=== PATIENT | male | born 1960 | race Caucasian/White ===

== ENCOUNTER 2016-10-11 12:08 | Inpatient (IN) | payer OTHER ==
[~2016-10-11] VITALS: Ht 185.4 cm; Wt 82.0 kg
[2016-10-11] VITALS (9 sets, daily range): PULSE 89–102; RESP 22; TEMP 97.4; O2SAT 93–100
[2016-10-11] MEDS ORDERED: ceFAZolin 2 GM PREMIX 50 ML ONE (12:16)
[2016-10-11] MEDS ORDERED: IOHEXOL 350 MG/ML 10 ML VIAL (for RAD DIAG) IV ONE ×2 (12:28→12:42)
--- NOTE | 2016-10-11 12:41 | RADRPT ---
EXAM DATE/TIME: 10/11/2016 12:02 [facility] COMPARISON: No previous studies available for comparison. INDICATIONS : Trauma alert, fall from ladder today MEDICAL HISTORY : unobtainable SURGICAL HISTORY : unobtainable ENCOUNTER: Initial ACUITY: 1 day PAIN SCORE: Non-responsive. LOCATION: Bilateral chest FINDINGS: A single view of the chest demonstrates the lungs to be symmetrically aerated without evidence of mas s, infiltrate or effusion. The cardiomediastinal contours are unremarkable. Osseous structures are intact. CONCLUSION: No acute disease. Davis Nolasco MD FACR on October 11, 2016 at 12:38 Board Certified Radiologist. This report was verified electronically.
--- NOTE | 2016-10-11 12:42 | RADRPT ---
EXAM DATE/TIME: 10/11/2016 12:02 [facility] COMPARISON: No previous studies available for comparison. INDICATIONS : Trauma alert, fall from ladder today MEDICAL HISTORY : unobtainable SURGICAL HISTORY : unobtainable ENCOUNTER: Initial ACUITY: 1 day PAIN SCORE: Non-responsive. LOCATION: Bilateral pelvis FINDINGS: Frontal pelvis is performed on a backboard. The hips are grossly symmetric without definite fracture or dislocation. No displaced pelvic fractures identified. CONCLUSION: Satisfactory trauma pelvis appearance. Red Hoffman MD on October 11, 2016 at 12:41 Board Certified Radiologist. This report was verified electronically.
[2016-10-11 12:44] LABS: AUTOMATED NEUTROPHIL # 5.6 TH/MM3 (1.8-7.7); BASOPHIL # 0.1 TH/MM3 (0-0.2); BASOPHIL % 0.8 % (0.0-2.0); EOSINOPHIL # 0.1 TH/MM3 (0-0.4); EOSINOPHIL % 0.9 % (0.0-4.0); HEMATOCRIT 46.5 % (39.0-51.0); HEMO FLAGS DIFF FINAL; I-STAT POTASSIUM 4.1 MMOL/L (3.5-4.9); LYMPH % 26.1 % (9.0-44.0); LYMPHOCYTE # 2.5 TH/MM3 (1.0-4.8); MEAN CELL VOLUME 98.4 FL (80.0-100.0); MEAN CORPUSCULAR HEMOGLOBIN 32.7 PG (27.0-34.0); MEAN CORPUSCULAR HGB CONC 33.2 % (32.0-36.0); NEUT % 59.2 % (16.0-70.0); PLATELET COUNT 221 TH/MM3 (150-450); RED BLOOD COUNT 4.72 MIL/MM3 (4.50-5.90); RED CELL DISTRIBUTION WIDTH 14.1 % (11.6-17.2); WHITE BLOOD COUNT 9.4 TH/MM3 (4.0-11.0)
[2016-10-11 12:52] LABS: APTT (PATIENT) 25.4 SEC (24.3-30.1); PROTHROMBIN TIME - PATIENT 10.9 SEC (9.8-11.6)
--- NOTE | 2016-10-11 12:53 | RADRPT ---
EXAM DATE/TIME: 10/11/2016 12:19 [facility] COMPARISON: No previous studies available for comparison. INDICATIONS : Trauma alert; fall ten feet from ladder. RADIATION DOSE: 56.42 CTDIvol (mGy) MEDICAL HISTORY : Non-responsive. SURGICAL HISTORY : Non-responsive. ENCOUNTER: Initial ACUITY: 1 day PAIN SCALE: Non-responsive LOCATION: Bilateral neck TECHNIQUE: Volumetric scanning of the cervical spine was performed. Multiplanar reconstructions in the sagittal, coronal and oblique axial planes were performed. Using automated exposure control and adjustment o f the mA and/or kV according to patient size, radiation dose was kept as low as reasonably achievable to obtain optimal diagnostic quality images. FINDINGS: Alignment is satisfactory. There is no evidence of cervical spine fracture. There is degenerative jony nge with disc space narrowing and endplate aspect formation most notably at C5-6. There is some ossif ication of the nuchal ligament dorsal to C4-5. There is no evidence of paraspinal hematoma. There is a mildly displaced fracture seen involving the occipital skull base just left of midline. CONCLUSION: Occipital skull fracture. No evidence of acute traumatic injury in the cervical spine Red Hoffman MD on October 11, 2016 at 12:41 Board Certified Radiologist. This report was verified electronically.
[2016-10-11] MEDS: SODIUM CHLOR 0.9% 1000 ML INJ 1,000 ML IV SCH (13:00)
[2016-10-11] MEDS ORDERED: SODIUM CHLORIDE 0.9% FLUSH 5 ML FLUSH IVF PRN (13:00)
[2016-10-11] MEDS ORDERED: ONDANSETRON HCL 4 MG/2 ML VIAL IV PRN (13:00)
[2016-10-11] MEDS ORDERED: MISCELLANEOUS NURSING INFORMATION XX SCH (13:00)
[2016-10-11] MEDS ORDERED: MAGNESIUM HYDROXIDE SUSP 30 ML CUP PO PRN (13:00)
[2016-10-11] MEDS ORDERED: ENALAPRILAT 1.25 MG/ML VIAL IV PRN (13:00)
[2016-10-11] MEDS ORDERED: CHLORHEXIDINE GLUCONATE 2 % 1 PACK (2 CLOTHS) TOP PRN (13:00)
[2016-10-11] MEDS ORDERED: hydrALAZINE HCL 20 MG/ML VIAL ONE (13:01)
--- NOTE | 2016-10-11 13:01 | RADRPT ---
EXAM DATE/TIME: 10/11/2016 12:19 [facility] COMPARISON: No previous studies available for comparison. INDICATIONS : Trauma alert; fall ten feet from ladder. RADIATION DOSE: 56.35 CTDIvol (mGy) MEDICAL HISTORY : None SURGICAL HISTORY : None. ENCOUNTER: Initial ACUITY: 1 day PAIN SCALE: 5/10 LOCATION: cranial TECHNIQUE: Multiple contiguous axial images were obtained of the head. Using automated exposure control and adj ustment of the mA and/or kV according to patient size, radiation dose was kept as low as reasonably a chievable to obtain optimal diagnostic quality images. FINDINGS: There is subdural blood in both orbital frontal regions. There is subarachnoid blood present. There are small parenchymal contusions on the undersurface of both frontal lobes. Trace blood is seen in the fourth ventricle. There is a large skull fracture midline occipital bone that extends to the level of the coronal sutur e without depression. No other skull fractures are evident. CONCLUSION: 1. Subdural, subarachnoid blood and parenchymal contusions. This is associated with a large occipit al skull fracture in the midline. 2. The amount of subdural blood measures 6 mm at its largest dimension. Davsi Nolasco MD FACR on October 11, 2016 at 12:43 Board Certified Radiologist. This report was verified electronically.
--- NOTE | 2016-10-11 13:03 | RADRPT ---
EXAM DATE/TIME: 10/11/2016 12:19 [facility] COMPARISON: No previous studies available for comparison. INDICATIONS : Trauma alert; fall ten feet from ladder. IV CONTRAST: 100 cc Omnipaque 350 (iohexol) IV ; Cumulative dose for multiple exams. ORAL CONTRAST: No oral contrast ingested. RADIATION DOSE: 10.67 CTDIvol (mGy) ; Combined studies - Thorax/Abdomen/Pelvis MEDICAL HISTORY : Non-responsive. SURGICAL HISTORY : Non-responsive. ENCOUNTER: Initial ACUITY: 1 day PAIN SCALE: Non-responsive LOCATION: Bilateral Abdomen. TECHNIQUE: Volumetric scanning of the abdomen and pelvis was performed. Using automated exposure control and adjustment of the mA and/or kV according to patient size, radiation dose was kept as low as reasonably achievable to obtain optimal diagnostic quality images. FINDINGS: Lung bases are clear. Liver, spleen, pancreas and adrenals are unremarkable. There is symmetrical r enal function. There is no free fluid or free air evident. Review of bone windows reveals degenerative changes in the lumbar spine. Mild degenerative changes seen at both SI joints. CONCLUSION: Negative CT scan of the abdomen and pelvis for acute traumatic injury. Davis oNlasco MD FACR on October 11, 2016 at 12:45 Board Certified Radiologist. This report was verified electronically.
--- NOTE | 2016-10-11 13:05 | RADRPT ---
EXAM DATE/TIME: 10/11/2016 12:19 [facility] COMPARISON: No previous studies available for comparison. INDICATIONS: Trauma alert; fall ten feet from ladder. IV CONTRAST: 100 cc Omnipaque 350 (iohexol) IV ; Cumulative dose for multiple exams. RADIATION DOSE: 10.67 CTDIvol (mGy) ; Combined studies - Thorax/Abdomen/Pelvis MEDICAL HISTORY: Non-responsive. SURGICAL HISTORY: Non-responsive. ENCOUNTER: Initial ACUITY: 1 day PAIN SCALE: Non-responsive LOCATION: Bilateral chest TECHNIQUE: Volumetric scanning of the chest was performed. Using automated exposure control and adjustment of t he mA and/or kV according to patient size, radiation dose was kept as low as reasonably achievable to obtain optimal diagnostic quality images. FINDINGS: There is no pneumothorax. There is no mediastinal axillary adenopathy. Mediastinal vessels are inta ct. There is very minimal dilatation of the ascending aorta when compared to descending aorta. Review of bone windows reveals degenerative changes about the right a.c. joint. Scapula is intact. Rib fractures are not appreciated. CONCLUSION: Negative for acute traumatic injury. There is no pneumothorax. Davis Nolasco MD FACR on October 11, 2016 at 12:44 Board Certified Radiologist. This report was verified electronically.
--- NOTE | 2016-10-11 13:13 | MH ---
cc: LARRY SHIPMAN DATE OF ADMISSION: 10/11/2016 REASON FOR ADMISSION Trauma. HISTORY OF PRESENT ILLNESS This is a patient who by reports was on a ladder and fell approximately 10 feet. A bystander at the scene performed CPR for approximately two minutes stating the patient was blue. On EMS arrival the patient's reported GCS was 6, which increased to 11 by the time Air flight got on the scene. The patient was brought in as a Trauma Alert on a backboard in a C-collar immobilized. The patient was non-verbal and as a result all histories and review of systems are unobtainable. PHYSICAL EXAMINATION HEENT: Pupils were 3 mm, equal and reactive. Tympanic membranes clear. NECK: Neck is in a C-collar. No JVD. LUNGS: Respirations were clear. HEART: Regular. ABDOMEN: Soft, nondistended. EXTREMITIES: No deformities. NEUROLOGIC: GCS of 10. BACK: No step-offs. IMAGING CT of the head: Subarachnoid subdural hemorrhage. CT of the C-spine: No fracture. CT of the thorax: Negative. CT of the abdomen pelvis: Negative. These are all preliminary readings. LABORATORY Hemoglobin 15, hematocrit 46. ASSESSMENT This is a patient status post fall with a closed head injury. He is being admitted to [facility] to monitor his neurological status. Neurosurgery and Critical Care has been consulted for management. MD KAUSHIK Hardy/RONN /1:00 PM /1:07 PM [facility]
[2016-10-11] MEDS: PANTOPRAZOLE SODIUM 40 MG VIAL IVP SCH (13:22)
[2016-10-11] MEDS ORDERED: niCARdipine INJ 25 MG in SODIUM CHLOR 0.9% 250 ML INJ 250 ML IV SCH (13:30)
--- NOTE | 2016-10-11 13:46 | PD.CONS ---
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 He was a GCS of 3 at the scene. He had CPR in the field but woke up and was a GCS of 11 in the ED. He is now in the ICU, alert and following commands. He has marked difficulty hearing but seems to think he is in a [facility]. He complains of back pain. Review of Systems ROS Limitations: Altered Mental Status, Hearing Impaired Constitutional: DENIES: Diaphoretic episodes, Fatigue, Fever, Weight gain, Weight loss, Chills, Dizziness, Change in appetite, Night Sweats Endocrine: DENIES: Heat/cold intolerance, Polydipsia, Polyuria, Polyphagia Eyes: DENIES: Blurred vision, Diplopia, Eye inflammation, Eye pain, Vision loss , Photosensitivity, Double Vision Ears, nose, mouth, throat: DENIES: Tinnitus, Hearing loss, Vertigo, Nasal discharge, Oral lesions, Throat pain, Hoarseness, Ear Pain, Running Nose, Epistaxis, Sinus Pain, Toothache, Odynophagia Respiratory: DENIES: Apneas, Cough, Snoring, Wheezing, Hemoptysis, Sputum production, Shortness of breath Cardiovascular: DENIES: Chest pain, Palpitations, Syncope, Dyspnea on Exertion , PND, Lower Extremity Edema, Orthopnea, Claudication Gastrointestinal: DENIES: Abdominal pain, Black stools, Bloody stools, Constipation, Diarrhea, Nausea, Vomiting, Difficulty Swallowing, Anorexia Musculoskeletal: DENIES: Joint pain, Muscle aches, Stiffness, Joint Swelling, Back pain, Neck pain Integumentary: DENIES: Abnormal pigmentation, Nail changes, Pruritus, Rash Immunologic/allergic: DENIES: Eczema, Urticaria Neurologic: DENIES: Abnormal gait, Headache, Localized weakness, Paresthesias, Seizures, Speech Problems, Tremor, Poor Balance Psychiatric: DENIES: Anxiety, Confusion, Mood changes, Depression, Hallucinations, Agitation, Suicidal Ideation, Homicidal Ideation, Delusions Past Family Social History Allergies: Coded Allergies: UNOBTAINABLE (Unverified , 2/20/17) Past Medical History not known Family History not known Physical Exam Vital Signs Vital Signs Date Time Temp Pulse Resp B/P Pulse Ox O2 Delivery O2 Flow Rate FiO2 10/11/16 12:45 100 Nasal Cannula 3.00 10/11/16 12:26 100 15.00 100 Physical Exam Last Impressions Pelvis X-Ray 10/11/161212 Signed Impressions: Service Date/Time: Tuesday, October 11, 2016 12:02 - CONCLUSION: Satisfactory trauma pelvis appearance. Red Hoffman MD Head CT 10/11/161212 Signed Impressions: Service Date/Time: Tuesday, October 11, 2016 12:19 - CONCLUSION: 1. Subdural , subarachnoid blood and parenchymal contusions. This is associated with a large occipital skull fracture in the midline. 2. The amount of subdural blood measures 6 mm at its largest dimension. Davis Nolasco MD FACR Chest X-Ray 10/11/161212 Signed Impressions: Service Date/Time: Tuesday, October 11, 2016 12:02 - CONCLUSION: No acute disease. Davis Nolasco MD FACR Chest CT 10/11/161212 Signed Impressions: Service Date/Time: Tuesday, October 11, 2016 12:19 - CONCLUSION: Negative for acute traumatic injury. There is no pneumothorax. Davis Nolasco MD FACR Cervical Spine CT 10/11/161212 Signed Impressions: Service Date/Time: Tuesday, October 11, 2016 12:19 - CONCLUSION: Occipital skull fracture. No evidence of acute traumatic injury in the cervical spine Red Hoffman MD Abdomen/Pelvis CT 10/11/161212 Signed Impressions: Service Date/Time: Tuesday, October 11, 2016 12:19 - CONCLUSION: Negative CT scan of the abdomen and pelvis for acute traumatic injury. Davis Nolasco MD FACR Alert laying on the ICU bed, pupils 2mm round, eomi, face symmetric. Abrasion in the back of the head is still oozing, moving his neck with no guarding. No pronator drift, antigravity in both the arms and the legs, 5/5 in the grasps and qudas emerald No Ureña sign, no Babinski, normal tone. Lungs with rhonchi, ETOH breath, No peripheral edema, abd with pos BS Laboratory Laboratory Tests Test 2/20/17 12:20 White Blood Count 9.4 Red Blood Count 4.72 Hemoglobin 15.4 Bedside Hemoglobin 17.3 Hematocrit 46.5 Bedside Hematocrit 51.0 Mean Corpuscular Volume 98.4 Mean Corpuscular Hemoglobin 32.7 Mean Corpuscular Hemoglobin 33.2 Concent Red Cell Distribution Width 14.1 Platelet Count 221 Mean Platelet Volume 7.0 Neutrophils (%) (Auto) 59.2 Lymphocytes (%) (Auto) 26.1 Monocytes (%) (Auto) 13.0 Eosinophils (%) (Auto) 0.9 Basophils (%) (Auto) 0.8 Neutrophils # (Auto) 5.6 Lymphocytes # (Auto) 2.5 Monocytes # (Auto) 1.2 Eosinophils # (Auto) 0.1 Basophils # (Auto) 0.1 CBC Comment DIFF FINAL Differential Comment Prothrombin Time 10.9 Prothromb Time International 1.0 Ratio Activated Partial 25.4 Thromboplast Time Bedside Sodium 136 Bedside Potassium 4.1 Bedside Chloride 97 Bedside Blood Urea Nitrogen 6 Bedside Creatinine 1.0 Bedside Glucose 111 Blood Type O POSITIVE Antibody Screen NEGATIVE Result Diagram: 10/11/161219 Imaging Last Impressions Pelvis X-Ray 10/11/161212 Signed Impressions: Service Date/Time: Tuesday, October 11, 2016 12:02 - CONCLUSION: Satisfactory trauma pelvis appearance. Red Hoffman MD Head CT 10/11/161212 Signed Impressions: Service Date/Time: Tuesday, October 11, 2016 12:19 - CONCLUSION: 1. Subdural , subarachnoid blood and parenchymal contusions. This is associated with a large occipital skull fracture in the midline. 2. The amount of subdural blood measures 6 mm at its largest dimension. Davis Nolasco MD FACR Chest X-Ray 10/11/161212 Signed Impressions: Service Date/Time: Tuesday, October 11, 2016 12:02 - CONCLUSION: No acute disease. Davis Nolasco MD FACR Chest CT 10/11/161212 Signed Impressions: Service Date/Time: Tuesday, October 11, 2016 12:19 - CONCLUSION: Negative for acute traumatic injury. There is no pneumothorax. Davis Nolasco MD FACR Cervical Spine CT 10/11/161212 Signed Impressions: Service Date/Time: Tuesday, October 11, 2016 12:19 - CONCLUSION: Occipital skull fracture. No evidence of acute traumatic injury in the cervical spine Red Hoffman MD Abdomen/Pelvis CT 10/11/16 1213 Signed Impressions: Service Date/Time: Tuesday, October 11, 2016 12:19 - CONCLUSION: Negative CT scan of the abdomen and pelvis for acute traumatic injury. Davis Nolasco MD FACR Assessment and Plan Diagnosis: (1) Subdural hemorrhage following injury Plan: Contre- coup right SDH about 6mm associated with bifrontal SAH, will follow radiologically with a head CT at 6pm. ICD Code: S06.5X9A (2) Fracture of occipital bone of skull with loss of consciousness ICD Code: S02.119A Problem Qualifiers (1) Subdural hemorrhage following injury: Qualified Code: S06.5X1A - Traumatic subdural hemorrhage with loss of consciousness of 30 minutes or less, initial encounter (2) Fracture of occipital bone of skull with loss of consciousness: Qualified Code: S02.119A - Fracture of occipital bone of skull with loss of consciousness, closed, initial encounter Jerome Sosa Oct 11, 2016 13:46
--- NOTE | 2016-10-11 13:52 | PD.CONS ---
[facility] Service Critical Care Medicine Consult Requested By Dr. Menezes Reason for Consult Critical care/ medical management Primary Care Physician unknown History of Present Illness Elderly male who was brought in as a trauma alert after he fell 10 feet from a ladder. GCS 6 initially at the scene subsequently improved to 11 on arrival in the ER. Patient was evaluated by trauma team and subsequently underwent imaging studies and transferred to the ICU. Critical care consult was requested by Dr. Menezes. Patient was initially on a nonrebreather facemask however by the time I saw him he had been switched to nasal cannula and did not appear to be in any acute distress. Imaging studies revealed an occipital skull fracture, subdural and subarachnoid blood. Patient was awake and alert at the time of evaluation and following commands and moving all 4 extremities. He could not hear and had some speech difficulty at the time of my evaluation with difficulty in communication though was following commands appropriately. C spine cleared by Neurosurgery at the time of my evaluation. Review of Systems ROS Limitations: Clinical Condition Past Family Social History Allergies: Coded Allergies: UNOBTAINABLE (Unverified , 10/11/16) Past Medical History Unavailable at this time Past Surgical History Unavailable at this time Reported Medications Unavailable at this time Active Ordered Medications Current Medications Cefazolin Sodium/ Dextrose (Ancef 2 Gm Premix) 50 ml @ As Directed STK-MED ONCE .ROUTE ; Start 10/11/16 at 12:16; Stop 10/11/16 at 12:17; Status DC Iohexol (Omnipaque 350 Inj) 100 ml STK-MED ONCE IV Last administered on 12:28; Start 10/11/16 at 12:28; Stop 10/11/16 at 12:29; Status DC Iohexol 100 ml 100 ml STK-MED ONCE IV ; Start 10/11/16 at 12:42; Stop 10/11/16 at 12:43; Status Cancel Sodium Chloride (NS 1000 ml Inj) 1,000 ml @ 100 mls/hr Q10H IV Last administered on 10/11/16 13:00; Start 10/11/16 at 13:00 IV Flush (NS Flush) 2 ml UNSCH PRN IVF FLUSH AFTER USING IV ACCESS; Start 10/11 at 13:00 Enalaprilat (Vasotec Inj) 1.25 mg Q8H PRN IV SBP>180, DBP>95; Start 10/11/16 at 13:00 Ondansetron HCl (Zofran Inj) 4 mg Q6H PRN IV NAUSEA OR VOMITING; Start at 13:00 Pantoprazole Sodium (Protonix Inj) 40 mg Q24H IVP ; Start 10/11/16 at 13:00 Docusate Sodium (Colace) 100 mg BID PO ; Start 10/11/16 at 21:00 Magnesium Hydroxide (Milk Of Magnesia Liq) 30 ml Q6H PRN PO CONSTIPATION; Start 10/11/16 at 13:00 Miscellaneous Information 1 [id number] ; Start 10/11/16 at 13:00 Chlorhexidine Gluconate (Chlorhexidine 2% Cloth) 3 pack Taper DAILY@04 TOP ; Start 10/12/16 at 04:00; Stop 10/08/17 at 03:59 Chlorhexidine Gluconate (Chlorhexidine 2% Cloth) 3 pack UNSCH PRN TOP HYGIENIC CARE; Start 10/11/16 at 13:00 Hydralazine HCl (Apresoline Inj) 20 mg STK-MED ONCE .ROUTE Last administered on 10/11/16t 13:01; Start 10/11/16 at 13:01; Stop 10/11/16 at 13:02; Status DC Family History Unavailable at this time Social History Unavailable at this time Physical Exam Vital Signs Vital Signs Date Time Temp Pulse Resp B/P Pulse Ox O2 Delivery O2 Flow Rate FiO2 10/11/16 12:45 100 Nasal Cannula 3.00 10/11/16 12:26 100 15.00 100 Physical Exam HEENT/Neuro: No pallor or icterus, tongue moist, [place], Awake alert oriented 3 , cannot hear currently, speech difficulty noted with inability to speak except few words. moving all 4 extremities Neck: No JVD Chest/pulmonary: CTA bilaterally Cardiovascular: S1-S2 regular no gallop or murmur GI/abdomen: Soft, nontender, bowel sounds present Extremities: Warm bilaterally, no edema Laboratory Laboratory Tests Test 10/11/16 12:20 White Blood Count 9.4 Red Blood Count 4.72 Hemoglobin 15.4 Bedside Hemoglobin 17.3 Hematocrit 46.5 Bedside Hematocrit 51.0 Mean Corpuscular Volume 98.4 Mean Corpuscular Hemoglobin 32.7 Mean Corpuscular Hemoglobin 33.2 Concent Red Cell Distribution Width 14.1 Platelet Count 221 Mean Platelet Volume 7.0 Neutrophils (%) (Auto) 59.2 Lymphocytes (%) (Auto) 26.1 Monocytes (%) (Auto) 13.0 Eosinophils (%) (Auto) 0.9 Basophils (%) (Auto) 0.8 Neutrophils # (Auto) 5.6 Lymphocytes # (Auto) 2.5 Monocytes # (Auto) 1.2 Eosinophils # (Auto) 0.1 Basophils # (Auto) 0.1 CBC Comment DIFF FINAL Differential Comment Prothrombin Time 10.9 Prothromb Time International 1.0 Ratio Activated Partial 25.4 Thromboplast Time Bedside Sodium 136 Bedside Potassium 4.1 Bedside Chloride 97 Bedside Blood Urea Nitrogen 6 Bedside Creatinine 1.0 Bedside Glucose 111 Blood Type O POSITIVE Antibody Screen NEGATIVE Result Diagram: 10/11/[address]: occipital fracture, orbital SDH, bifrontal parenchymal contusions, SAH , trace blood in 4th ventricle Chest CT: negative for traumatic injuries CT Abd/Pelvis: negative for traumatic injuries Last Impressions Pelvis X-Ray 10/11/161212 Signed Impressions: Service Date/Time: Tuesday, October 11, 2016 12:02 - CONCLUSION: Satisfactory trauma pelvis appearance. Red Hoffman MD Chest X-Ray 10/11/161212 Signed Impressions: Service Date/Time: Tuesday, October 11, 2016 12:02 - CONCLUSION: No acute disease. Davis Nolasco MD FACR Cervical Spine CT 10/11/161212 Signed Impressions: Service Date/Time: Tuesday, October 11, 2016 12:19 - CONCLUSION: Occipital skull fracture. No evidence of acute traumatic injury in the cervical spine Red Hoffman MD Assessment and Plan Assessment and Plan Elderly male presenting as trauma alert with: Occipital skull fracture TBI with bifrontal contusions, bifrontal subdural hemorrhage, subarachnoid hemorrhage Hearing loss Suspected COPD Plan: Neuro: Follow neuro checks, neurosurgery consulted. Repeat head CT per neurosurgery to follow up on TBI. Cardiovascular: IV hydration, watch for hypotension. Labetalol/hydralazine when necessary for hypertension. Nicardipine drip if needed for hypertension. Pulmonary: Bronchodilators, supplemental O2. Currently protecting airway. May require intubation if neurologic status declines. GI/liver: Nothing by mouth for now Renal/: IV hydration, strict intake output, monitor and replete elect lites, follow BUN/creatinine. Estrella catheterization. ID: Antibiotic prophylaxis per trauma team Endocrine: Watch for hyperglycemia, SSI for glycemic control if needed Heme: Follow CBC Prophylaxis: PPI/SCDs. No heparin or Lovenox in view of TBI till cleared by Neurosurgery D/W Dr. Menezes, Dr. Hadley, ASSORTMENT PLANNER. Eamon Perdue MD Oct 11, 2016 13:52
[2016-10-11] MEDS: RESP: ALBUTEROL 2.5 MG/IPRATROPIUM 0.5 MG NEB (SCH) NEB ×3 (14:02→19:37)
--- NOTE | 2016-10-11 14:49 | PD ---
HPI Chief Complaint: Trauma (Alert) Time Seen by Provider: 12:27 Travel History International Travel<30 days: No Contact w/Intl Traveler<30days: No Traveled to known affect area: No History of Present Illness HPI This patient presents as a trauma alert. Dr. Menezes was present in the ER upon arrival of the patient. He is a 56-year-old male who fell 10 feet and struck his head. Reportedly lost consciousness and a bystander started performing CPR. Paramedics found his initial GCS to be 6 which rapidly improved to an 11. He arrives in and nonverbal state and cannot provide any history or review of systems. Allergies-Medications (Allergen,Severity, Reaction): Coded Allergies: UNOBTAINABLE (Unverified , 10/11/16) Review of Systems ROS Limitations: Clinical Condition, Altered Mental Status, Poor Historian Physical Exam Narrative GENERAL: Well-nourished, well-developed patient with decreased level of consciousness . SKIN: Warm and dry. HEAD: Normocephalic. No lacerations EYES: Pupils equal and round. No scleral icterus. No injection or drainage. ENT: No nasal bleeding or discharge. Mucous membranes pink and moist. NECK: Trachea midline. No JVD. C-collar maintained CARDIOVASCULAR: Regular rate and rhythm. No murmur appreciated. RESPIRATORY: No accessory muscle use. Clear to auscultation. Breath sounds equal bilaterally. GASTROINTESTINAL: Abdomen soft, non-tender, nondistended. Hepatic and splenic margins not palpable. MUSCULOSKELETAL: No obvious deformities. No clubbing. No cyanosis. No edema. NEUROLOGICAL: Awake but not following commands. Motor and sensory exams are possible given his limited participation in the exam. He is nonverbal PSYCHIATRIC: Difficult to assess his mood and affect; insight and judgment reduced Data Data Last Documented VS Vital Signs Date Time Temp Pulse Resp B/P Pulse Ox O2 Delivery O2 Flow Rate FiO2 10/11/16 12:26 100 15.00 100 Orders Cefazolin 2 Gm Premix (Ancef 2 Gm Premix (10/11/16 12:16) I-Stat Profile (10/11/16 12:13) I-Stat Creatinine (10/11/16 12:13) Complete Blood Count With Diff (10/11/16 12:13) Prothrombin Time / Inr (Pt) (10/11/16 12:13) Act Partial Throm Time (Ptt) (10/11/16 12:13) Type And Screen (10/11/16 12:13) Chest, Single Ap (10/11/16 12:13) Pelvis, Ap Only (Routine) (10/11/16 12:13) Ct Brain W/O Iv Contrast(Rout) (10/11/16 12:13) Ct Cerv Spine W/O Contrast (10/11/16 12:13) Ct Abd/Pel W Iv Contrast(Rout) (10/11/16 12:13) Ct Thorax/ Chest W Iv Contrast (10/11/16 12:13) Iv Access Insert/Monitor (10/11/16 12:13) Ecg Monitoring (10/11/16 12:13) Oximetry (10/11/16 12:13) Oxygen Administration (10/11/16 12:13) Iohexol 350 Inj (Omnipaque 350 Inj) (10/11/16 12:28) Admit To Inpatient (10/11/16 ) Labs Laboratory Tests Test 10/11/16 12:20 White Blood Count 9.4 TH/MM3 Red Blood Count 4.72 MIL/MM3 Hemoglobin 15.4 GM/DL Bedside Hemoglobin 17.3 G/DL Hematocrit 46.5 % Bedside Hematocrit 51.0 % Mean Corpuscular Volume 98.4 FL Mean Corpuscular Hemoglobin 32.7 PG Mean Corpuscular Hemoglobin 33.2 % Concent Red Cell Distribution Width 14.1 % Platelet Count 221 TH/MM3 Mean Platelet Volume 7.0 FL Neutrophils (%) (Auto) 59.2 % Lymphocytes (%) (Auto) 26.1 % Monocytes (%) (Auto) 13.0 % Eosinophils (%) (Auto) 0.9 % Basophils (%) (Auto) 0.8 % Neutrophils # (Auto) 5.6 TH/MM3 Lymphocytes # (Auto) 2.5 TH/MM3 Monocytes # (Auto) 1.2 TH/MM3 Eosinophils # (Auto) 0.1 TH/MM3 Basophils # (Auto) 0.1 TH/MM3 CBC Comment DIFF FINAL Differential Comment Prothrombin Time 10.9 SEC Prothromb Time International 1.0 RATIO Ratio Activated Partial 25.4 SEC Thromboplast Time Bedside Sodium 136 MMOL/L Bedside Potassium 4.1 MMOL/L Bedside Chloride 97 MMOL/L Bedside Blood Urea Nitrogen 6 MG/DL Bedside Creatinine 1.0 MG/DL Bedside Glucose 111 MG/DL Blood Type O POSITIVE Antibody Screen NEGATIVE MDM Medical Screen Exam Complete: Yes Emergency Medical Condition: Yes Medical Record Reviewed: Yes Differential Diagnosis Intracranial hemorrhage, skull fracture, concussion Narrative Course Patient's initial blood pressures were 140-160 systolic IV placed Brain CT reveals occipital skull fracture with subdural hemorrhage Cervical spine CT reveals no cervical fracture Abdominal pelvic CT is negative Pelvis x-ray is negative Chest x-ray is negative CBC is normal Metabolic profile normal This patient is critically ill with subdural hemorrhage and skull fracture after traumatic injury and will be admitted to intensive care with neurosurgery management Critical Care Narrative Aggregate critical care time was 34 minutes. Time to perform other separately billable procedures was not included in the critical care time. My time did not include minutes spent treating any other patients simultaneously or on activities that did not directly contribute to the patient's treatment. The services I provided to this patient were to treat and/or prevent clinically significant deterioration that could result in: Intracranial hemorrhage, permanent neurologic deficit, brain stem herniation I provided critical care services requiring my management, as noted below: Chart data review, documentation time, medication orders and management, vital sign assessments/reviewing monitor data, ordering and reviewing lab tests, ordering and interpreting/reviewing x-rays and diagnostic studies, care of the patient and discussion of the patient with the admitting physicians. Trauma Alert - Level One Trauma Alert Level One: Full trauma team activate Diagnosis Diagnosis: Primary Impression: Subdural hemorrhage following injury Qualified Code: S06.5X1A - Traumatic subdural hemorrhage with loss of consciousness of 30 minutes or less, initial encounter Additional Impression: Fracture of occipital bone of skull with loss of consciousness Qualified Code: S02.119A - Fracture of occipital bone of skull with loss of consciousness, closed, initial encounter Admitting Physician Requests: Admit Jerman Vera MD Oct 11, 2016 14:49
[2016-10-11] MEDS: DEXMEDETOMIDINE INJ 50 ML IV SCH (16:53)
[2016-10-11] MEDS ORDERED: HALOPERIDOL LACTATE 5 MG/ML AMP IM PRN (17:30)
[2016-10-11] MEDS ORDERED: LORazepam 2 MG/ML VIAL IV PUSH PRN (17:30)
[2016-10-11] MEDS: methylPREDNISolone SOD SUCC 125 MG/2 ML VIAL IV PUSH SCH (18:04)
[2016-10-11] MEDS: LORazepam 2 MG/ML VIAL IV PUSH PRN (18:05)
[2016-10-11] MEDS ORDERED: MANNITOL 12.5 GM/50 ML VIAL IV ONE (19:00)
[2016-10-11] MEDS ORDERED: LORazepam 2 MG/ML VIAL IV PUSH ONE (19:00)
[2016-10-11] MEDS ORDERED: SODIUM CHLORIDE IV SCH (20:00)
[2016-10-11] MEDS ORDERED: SODIUM ACETATE IV SCH (20:00)
[2016-10-11] MEDS ORDERED: [UNRECOGNIZED DRUG - OTHER] IV SCH (20:00)
[2016-10-11 20:23] LABS: AMPHETAMINE, URINE NEG (NEG); BARBITURATES, URINE NEG (NEG); COCAINE, URINE NEG (NEG)
[2016-10-11] MEDS: THIAMINE INJ 100 MG in SODIUM CHLORIDE 0.9% INJ 100 ML IV SCH (20:27)
[2016-10-11] MEDS: levETIRAcetam INJ 500 MG in SODIUM CHLORIDE 0.9% INJ 100 ML IV SCH (20:27)
[2016-10-11 20:36] LABS: ALKALINE PHOSPHATASE 80 U/L (45-117); ALT (GPT) 33 U/L (12-78); ANION GAP 9 MEQ/L (5-15); AST (GOT) 38 U/L (15-37); BICARBONATE 28.3 MEQ/L (21.0-32.0); BLOOD UREA NITROGEN 7 MG/DL (7-18); CHLORIDE 99 MEQ/L (98-107); GLOMERULAR FILTRATION RATE 81 ML/MIN (>89); POTASSIUM 3.9 MEQ/L (3.5-5.1); SODIUM (NA) 136 MEQ/L (136-145); TOTAL BILIRUBIN ADULT 0.4 MG/DL (0.2-1.0)
[2016-10-11] MEDS ORDERED: ETOMIDATE 20 MG/10 ML VIAL IV PUSH ONE (20:45)
[2016-10-11] MEDS ORDERED: ROCURONIUM INJ 50 MG/5 ML VIAL IV ONE (20:45)
[2016-10-11] MEDS ORDERED: MIDAZOLAM HCL 5 MG/ML VIAL (1 ML) IV ONE (20:45)
--- NOTE | 2016-10-11 21:25 | PD.PROCEDR ---
Procedure Note Procedure After the risks and benefits were discussed the following procedure was performed: INTUBATION: The patient was put in optimal position for the procedure. Rapid sequence intubation was initiated by me using 5 milligrams of Versed IV, 100 mcg Fentanyl IV and 50 milligrams of Rocuronium IV. DL with Mac 4 blade Grade 2 view single attempt. The patient was intubated with a 8.0 cuffed endotracheal tube. Tube placement was confirmed by visualization of the tube and balloon passing through the cords, capnometry and chest x-ray is pending. Breath sounds were equal and well aerated bilaterally postintubation. No breath sounds over stomach. Patient tolerated procedure well. James Moon MD Oct 11, 2016 21:25
--- NOTE | 2016-10-11 21:27 | PD.PROCEDR ---
Central Line Procedure REASON FOR PROCEDURE Central venous access PROCEDURE PERFORMED Central line placement: L subclavian central line CONSENT Informed consent for procedure was obtained and time out performed ANESTHESIA Local injection of 1% Lidocaine DESCRIPTION OF THE PROCEDURE The patient was placed in supine, mild Trendelenburg position. The area was exposed and cleansed with ChloraPrep, times two. Large sterile drape was used to cover the patient, with the site exposed, under sterile conditions including cap, face mask, sterile gown, and sterile gloves. On single attempt, the introducer needle was inserted with negative pressure in syringe and venous flash was obtained. The guide wire was then advanced without any restriction and the needle was removed. The dilator was used without any complications. Using Seldinger technique the 20 CM triple lumen 7F catheter was advanced over the guide wire to a depth of 18 centimeters. The guide wire was removed. All ports were aspirated with dark venous blood return and flushed easily with sterile saline. All ports were capped. Antibiotic disc was placed around central line at puncture site. The central line was secured to the skin with two interrupted 2.0 silk sutures. The area was bandaged with sterile see- through central line bandage. COMPLICATIONS: No apparent complications ESTIMATED BLOOD LOSS: Less than 1 cc. James Moon MD Oct 11, 2016 21:27
[2016-10-11] MEDS ORDERED: EPINEPHrine HCL (1:10,000) 1 MG/10 ML SYRINGE ONE (21:33)
[2016-10-11] MEDS ORDERED: ATROPINE SULFATE 1 MG/10 ML SYRINGE ONE (21:33)
[2016-10-11] MEDS ORDERED: LIDOCAINE HCL 2% 100 MG/5 ML SYRINGE ONE (21:33)
--- NOTE | 2016-10-11 22:01 | RADRPT ---
EXAM DATE/TIME: 10/11/2016 21:34 [facility] COMPARISON: No previous studies available for comparison. INDICATIONS : Evaluate intubation and central line placement MEDICAL HISTORY : Unobtainable SURGICAL HISTORY : Unobtainable ENCOUNTER: Initial ACUITY: 1 day PAIN SCORE: Non-responsive. LOCATION: Bilateral chest FINDINGS: The endotracheal tube tip is about 3 cm above the fan. There is a left subclavian central venous c atheter with tip in the superior vena cava. No pneumothorax. Mild atelectasis seen at both bases. No large effusion. No pneumothorax. CONCLUSION: Appropriate position of the endotracheal tube and left subclavian central venous catheter. Mild bibas ilar atelectasis. No pneumothorax or other acute pulmonary complication. 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 MD on October 11, 2016 at 21:58 Board Certified Radiologist. This report was verified electronically.
--- NOTE | 2016-10-11 22:30 | RADRPT ---
EXAM DATE/TIME: 10/11/2016 22:04 [facility] COMPARISON: No previous studies available for comparison. INDICATIONS : Follow up hemorrhage. RADIATION DOSE: 50.67 CTDIvol (mGy) MEDICAL HISTORY : Non-responsive. SURGICAL HISTORY : Non-responsive. ENCOUNTER: Subsequent ACUITY: 1 day PAIN SCALE: Non-responsive LOCATION: cranial TECHNIQUE: Multiple contiguous axial images were obtained of the head. Using automated exposure control and adj ustment of the mA and/or kV according to patient size, radiation dose was kept as low as reasonably a chievable to obtain optimal diagnostic quality images. FINDINGS: Subdural blood along both frontal convexities is larger, now about 9 mm in maximal thickness. There i s increased right temporal subdural hemorrhage measuring up to 21 mm in maximal thickness now. There is increased right parietal subdural blood, now about 8 mm in maximal thickness. There is worsening s ubarachnoid blood within the sulci of both frontal and temporal lobes. Innumerable contusions are now apparent of the anterior portions of both frontal and temporal lobes, right frontal lobe most severe ly involved. Individual areas of parenchymal hemorrhage are up to 2.7 cm in size. There are confluent areas of parenchymal hemorrhage. There is subarachnoid blood at the level of the basal cistern and i n between the leaves of the falx and tentorium. Approximately 8.5 mm of leftward midline shift has developed. Paramedian, sagittally oriented fracture of the occipital bone again noted. CONCLUSION: Much worse in the interim. There is increased and extensive subdural and subarachnoid blood as above. Multifocal parenchymal hemorrhage now present of both frontal and temporal lobes, especially the rig ht frontal lobe.. There is about 9 mm of leftward midline shift. 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 MD on October 11, 2016 at 22:23 Board Certified Radiologist. This report was verified electronically.
[2016-10-11] MEDS: PROPOFOL 1000 MG/100 ML INJ 100 ML IV SCH (23:41)
[2016-10-11] MEDS: MULTIVITAMIN INJ 10 ML, FOLIC ACID INJ 1 MG in SODIUM CHLORID 0.9% 500 ML INJ 500 ML IV SCH (23:41)
[2016-10-12] VITALS (17 sets, daily range): BP systolic 105–143; BP diastolic 63–78; PULSE 56–91; RESP 16–24; TEMP 98–101.3; O2SAT 94–100
[2016-10-12] MEDS: SODIUM CHLOR 0.9% 1000 ML INJ 1,000 ML IV SCH ×2 (00:43→14:39)
[2016-10-12] MEDS: MIDAZOLAM 100 MG/ML INJ 100 ML IV SCH ×2 (01:00→14:39)
[2016-10-12 01:16] LABS: BLOOD GAS BASE EXCESS 1.9 mmol/L (-2-2); BLOOD GAS CARBOXYHEMOGLOBIN 1.1 % (0-4); BLOOD GAS HCO3 26 mmol/L (22-26); BLOOD GAS METHEMOGLOBIN 0.9 % (0-2); BLOOD GAS O2 HGB SATURATION 90 % (90-100); BLOOD GAS OXYGEN CONTENT 19.5 Vol % (12.0-20.0); BLOOD GAS PCO2 44 mmHg (38-42); BLOOD GAS PO2 67 mmHg (61-120); BLOOD GAS TOTAL HGB 15.3 G/DL (12.0-16.0); CRITICAL VALUE NO; OXYGEN DEVICE VENTILATOR; TEMP CORR TO 98.6
[2016-10-12 01:17] LABS: DRAW SITE LT BRACHIAL; FIO2 50 %; NUMBER OF ARTERIAL PUNCTURES 2; STAT YES; VENT SETTINGS PRVC
[2016-10-12] MEDS: CHLORHEXIDINE GLUCONATE 2 % 1 PACK (2 CLOTHS) TOP SCH (04:00)
[2016-10-12] MEDS: PROPOFOL 1000 MG/100 ML INJ 100 ML IV SCH ×5 (05:18→23:29)
[2016-10-12] MEDS: fentaNYL DRIP 250 ML IV SCH ×2 (05:19→19:22)
[2016-10-12] MEDS: methylPREDNISolone SOD SUCC 125 MG/2 ML VIAL IV PUSH SCH ×2 (05:19→17:42)
[2016-10-12 05:48] LABS: AUTOMATED NEUTROPHIL # 8.6 TH/MM3 (1.8-7.7); BASOPHIL % 0.1 % (0.0-2.0); HEMATOCRIT 42.2 % (39.0-51.0); HEMO FLAGS DIFF FINAL; LYMPH % 5.1 % (9.0-44.0); LYMPHOCYTE # 0.5 TH/MM3 (1.0-4.8); MEAN CELL VOLUME 97.4 FL (80.0-100.0); MEAN CORPUSCULAR HEMOGLOBIN 32.9 PG (27.0-34.0); MEAN CORPUSCULAR HGB CONC 33.8 % (32.0-36.0); MONO % 9.2 % (0.0-8.0); NEUT % 85.6 % (16.0-70.0); PLATELET COUNT 216 TH/MM3 (150-450); RED BLOOD COUNT 4.34 MIL/MM3 (4.50-5.90); RED CELL DISTRIBUTION WIDTH 14.4 % (11.6-17.2); WHITE BLOOD COUNT 10.1 TH/MM3 (4.0-11.0)
[2016-10-12 06:21] LABS: ALKALINE PHOSPHATASE 77 U/L (45-117); ALT (GPT) 30 U/L (12-78); ANION GAP 8 MEQ/L (5-15); AST (GOT) 30 U/L (15-37); BICARBONATE 28.3 MEQ/L (21.0-32.0); BLOOD UREA NITROGEN 8 MG/DL (7-18); CHLORIDE 103 MEQ/L (98-107); GLOMERULAR FILTRATION RATE 92 ML/MIN (>89); POTASSIUM 3.7 MEQ/L (3.5-5.1); SODIUM (NA) 139 MEQ/L (136-145); TOTAL BILIRUBIN ADULT 0.4 MG/DL (0.2-1.0)
--- NOTE | 2016-10-12 06:32 | RADRPT ---
EXAM DATE/TIME: 10/12/2016 05:11 [facility] COMPARISON: CHEST SINGLE AP, October 11, 2016, 21:34. INDICATIONS : Shortness of breath. MEDICAL HISTORY : Unobtainable. SURGICAL HISTORY : Unobtainable. ENCOUNTER: Subsequent ACUITY: 2 days PAIN SCORE: Non-responsive. LOCATION: Bilateral chest FINDINGS: ET tube, NG tube, and left subclavian line are well placed. The heart is normal. There is minimal inc reased density at the bases. CONCLUSION: Minimal increased density at the bases representing minimal atelectasis or consolidation. Red Joshua MD on October 12, 2016 at 6:30 Board Certified Radiologist. This report was verified electronically.
[2016-10-12] MEDS: CHLORHEXIDINE 0.12% (ORAL KIT) 15 ML CUP MT SCH ×2 (08:00→19:21)
[2016-10-12] MEDS: RESP: ALBUTEROL 2.5 MG/IPRATROPIUM 0.5 MG NEB (SCH) NEB ×4 (08:23→20:30)
[2016-10-12] MEDS ORDERED: EPINEPHrine HCL (1:10,000) 1 MG/10 ML SYRINGE ONE (08:47)
[2016-10-12] MEDS ORDERED: ATROPINE SULFATE 1 MG/10 ML SYRINGE ONE (08:47)
[2016-10-12] MEDS: DOCUSATE SODIUM 100 MG CAP PO SCH ×2 (08:53→20:01)
[2016-10-12] MEDS: levETIRAcetam INJ 500 MG in SODIUM CHLORIDE 0.9% INJ 100 ML IV SCH ×2 (08:54→20:01)
[2016-10-12] MEDS: 3% SALINE INJ 500 ML IV SCH (08:55)
[2016-10-12] MEDS ORDERED: THIAMINE HCL 200 MG/2 ML VIAL IM SCH (09:00)
--- NOTE | 2016-10-12 09:02 | HHI.CCPN ---
Subjective Remarks/Hospital Course 10/11: Elderly male who was brought in as a trauma alert after he fell 10 feet from a ladder. GCS 6 initially at the scene subsequently improved to 11 on arrival in the ER. Patient was evaluated by trauma team and subsequently underwent imaging studies and transferred to the ICU. Critical care consult was requested by Dr. Menezes. Patient was initially on a nonrebreather facemask however by the time I saw him he had been switched to nasal cannula and did not appear to be in any acute distress. Imaging studies revealed an occipital skull fracture, subdural and subarachnoid blood. Patient was awake and alert at the time of evaluation and following commands and moving all 4 extremities. He could not hear and had some speech difficulty at the time of my evaluation with difficulty in communication though was following commands appropriately. C spine cleared by Neurosurgery at the time of my evaluation. 10/12: Patient developed worsening agitation despite Precedex last evening. He was started on Ativan as his gives history that he drinks 12 beers a day and if he does not drink has a tendency to go into withdrawal very quickly. Patient was subsequently intubated and placed on mechanical ventilation, his head CT from last evening shows worsening bilateral subdural and subarachnoid hemorrhages, right temporoparietal subdural hemorrhage with 9 mm leftward midline shift. He was started on 3% saline. Currently sedated with Versed/ fentanyl/propofol. Objective Vital Signs Date Time Temp Pulse Resp B/P Pulse Ox O2 Delivery O2 Flow Rate FiO2 10/12/16 08:16 97 45 10/12/16 08:00 64 10/12/16 08:00 98.4 16 137/77 10/12/16 07:00 Mechanical Ventilator 10/11/16 20:07 6.00 Intake and Output 10/11/16 10/11/16 10/12/16 08:00 16:00 00:00 Intake Total 54 ml 779 ml Output Total 350 ml 2100 ml Balance -296 ml -1321 ml Result Diagram: 10/12/1651910/12/16519 Other Results Laboratory Tests Test 10/11/16 10/11/16 10/11/16 10/11/16 12:20 13:30 19:38 19:40 White Blood Count 9.4 TH/MM3 Red Blood Count 4.72 MIL/MM3 Hemoglobin 15.4 GM/DL Bedside Hemoglobin 17.3 G/DL Hematocrit 46.5 % Bedside Hematocrit 51.0 % Mean Corpuscular Volume 98.4 FL Mean Corpuscular Hemoglobin 32.7 PG Mean Corpuscular Hemoglobin 33.2 % Concent Red Cell Distribution Width 14.1 % Platelet Count 221 TH/MM3 Mean Platelet Volume 7.0 FL Neutrophils (%) (Auto) 59.2 % Lymphocytes (%) (Auto) 26.1 % Monocytes (%) (Auto) 13.0 % Eosinophils (%) (Auto) 0.9 % Basophils (%) (Auto) 0.8 % Neutrophils # (Auto) 5.6 TH/MM3 Lymphocytes # (Auto) 2.5 TH/MM3 Monocytes # (Auto) 1.2 TH/MM3 Eosinophils # (Auto) 0.1 TH/MM3 Basophils # (Auto) 0.1 TH/MM3 CBC Comment DIFF FINAL Differential Comment Prothrombin Time 10.9 SEC Prothromb Time International 1.0 RATIO Ratio Activated Partial 25.4 SEC Thromboplast Time Bedside Sodium 136 MMOL/L Bedside Potassium 4.1 MMOL/L Bedside Chloride 97 MMOL/L Bedside Blood Urea Nitrogen 6 MG/DL Bedside Creatinine 1.0 MG/DL Bedside Glucose 111 MG/DL Troponin I LESS THAN 0.02 LESS THAN 0.02 NG/ML NG/ML B-Type Natriuretic Peptide 34 PG/ML Ethyl Alcohol Level 140 MG/DL Blood Type O POSITIVE Antibody Screen NEGATIVE Nasal Screen MRSA (PCR) NEGATIVE Urine Opiates Screen NEG Urine Barbiturates Screen NEG Urine Amphetamines Screen NEG Urine Benzodiazepines Screen POS Urine Cocaine Screen NEG Urine Cannabinoids Screen NEG Sodium Level 136 MEQ/L Potassium Level 3.9 MEQ/L Chloride Level 99 MEQ/L Carbon Dioxide Level 28.3 MEQ/L Anion Gap 9 MEQ/L Blood Urea Nitrogen 7 MG/DL Creatinine 0.82 MG/DL Estimat Glomerular Filtration 81 ML/MIN Rate Random Glucose 127 MG/DL Calcium Level 7.7 MG/DL Total Bilirubin 0.4 MG/DL Aspartate Amino Transf 38 U/L (AST/SGOT) Alanine Aminotransferase 33 U/L (ALT/SGPT) Alkaline Phosphatase 80 U/L Total Protein 7.4 GM/DL Albumin 3.2 GM/DL Test 10/12/16 10/12/16 00:48 05:20 Blood Gas Puncture Site LT BRACHIAL Blood Gas Patient Temperature 98.6 Blood Gas HCO3 26 mmol/L Blood Gas Base Excess 1.9 mmol/L Blood Gas Oxygen Saturation 90 % Arterial Blood pH 7.40 Arterial Blood Partial 44 mmHg Pressure CO2 Arterial Blood Partial 67 mmHg Pressure O2 Arterial Blood Oxygen Content 19.5 Vol % Arterial Blood 1.1 % Carboxyhemoglobin Arterial Blood Methemoglobin 0.9 % Blood Gas Hemoglobin 15.3 G/DL Oxygen Delivery Device VENTILATOR Blood Gas Ventilator Setting PRVC Blood Gas Inspired Oxygen 50 % White Blood Count 10.1 TH/MM3 Red Blood Count 4.34 MIL/MM3 Hemoglobin 14.3 GM/DL Hematocrit 42.2 % Mean Corpuscular Volume 97.4 FL Mean Corpuscular Hemoglobin 32.9 PG Mean Corpuscular Hemoglobin 33.8 % Concent Red Cell Distribution Width 14.4 % Platelet Count 216 TH/MM3 Mean Platelet Volume 7.4 FL Neutrophils (%) (Auto) 85.6 % Lymphocytes (%) (Auto) 5.1 % Monocytes (%) (Auto) 9.2 % Eosinophils (%) (Auto) 0.0 % Basophils (%) (Auto) 0.1 % Neutrophils # (Auto) 8.6 TH/MM3 Lymphocytes # (Auto) 0.5 TH/MM3 Monocytes # (Auto) 0.9 TH/MM3 Eosinophils # (Auto) 0.0 TH/MM3 Basophils # (Auto) 0.0 TH/MM3 CBC Comment DIFF FINAL Differential Comment Sodium Level 139 MEQ/L Potassium Level 3.7 MEQ/L Chloride Level 103 MEQ/L Carbon Dioxide Level 28.3 MEQ/L Anion Gap 8 MEQ/L Blood Urea Nitrogen 8 MG/DL Creatinine 0.86 MG/DL Estimat Glomerular Filtration 92 ML/MIN Rate Random Glucose 158 MG/DL Serum Osmolality 293 MOSM/KG Calcium Level 8.1 MG/DL Total Bilirubin 0.4 MG/DL Aspartate Amino Transf 30 U/L (AST/SGOT) Alanine Aminotransferase 30 U/L (ALT/SGPT) Alkaline Phosphatase 77 U/L Total Protein 7.2 GM/DL Albumin 3.1 GM/DL Imaging Last Impressions Chest X-Ray 10/12/16 0600 Signed Impressions: Service Date/Time: Wednesday, October 12, 2016 05:11 - CONCLUSION: Minimal increased density at the bases representing minimal atelectasis or consolidation. Red Joshua MD Head CT 10/11/161999 Signed Impressions: Service Date/Time: Tuesday, October 11, 2016 22:04 - CONCLUSION: Much worse in the interim. There is increased and extensive subdural and subarachnoid blood as above. Multifocal parenchymal hemorrhage now present of both frontal and temporal lobes, especially the right frontal lobe.. There is about 9 mm of leftward midline shift. 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 MD Pelvis X-Ray 10/11/161212 Signed Impressions: Service Date/Time: Tuesday, October 11, 2016 12:02 - CONCLUSION: Satisfactory trauma pelvis appearance. Red Hoffman MD Chest CT 10/11/161212 Signed Impressions: Service Date/Time: Tuesday, October 11, 2016 12:19 - CONCLUSION: Negative for acute traumatic injury. There is no pneumothorax. Davis Nolasco MD FACR Cervical Spine CT 10/11/161212 Signed Impressions: Service Date/Time: Tuesday, October 11, 2016 12:19 - CONCLUSION: Occipital skull fracture. No evidence of acute traumatic injury in the cervical spine Red Hoffman MD Abdomen/Pelvis CT 10/11/161212 Signed Impressions: Service Date/Time: Tuesday, October 11, 2016 12:19 - CONCLUSION: Negative CT scan of the abdomen and pelvis for acute traumatic injury. Davis Nolasco MD FACR Objective Remarks HEENT/Neuro: No pallor or icterus, tongue moist, [place], Awake alert oriented 3 , cannot hear currently, speech difficulty noted with inability to speak except few words. moving all 4 extremities Neck: No JVD Chest/pulmonary: CTA bilaterally Cardiovascular: S1-S2 regular no gallop or murmur GI/abdomen: Soft, nontender, bowel sounds present Extremities: Warm bilaterally, no edema Urinary Catheter: Yes Assessment to: Continue Vascular Central Line Catheter: Yes Assessment to: Continue Date of Insertion: Oct 11, 2016 Line: Central Venous Catheter Location: Subclavian A/P Assessment and Plan Elderly male presenting as trauma alert with: Encephalopathy Occipital skull fracture TBI with bifrontal contusions, bifrontal, right temporoparietal subdural hemorrhage, subarachnoid hemorrhage Hearing loss History of alcohol abuse Suspected alcohol withdrawal Suspected COPD Acute respiratory failure requiring mechanical ventilation Plan: Neuro: Follow neuro checks, neurosurgery consulted. Repeat head CT per neurosurgery to follow up on TBI. On 3% saline, follow serial sodiums. Seizure prophylaxis per Dr. Layne. Ativan/thiamine/folate acid for alcohol withdrawal. On Versed/fentanyl gtt. for sedation/analgesia. Titrate off propofol if tolerated. Cardiovascular: IV hydration, watch for hypotension. Labetalol/hydralazine when necessary for hypertension. Nicardipine drip if needed for hypertension. Pulmonary: Continue mechanical ventilation, vent bundle, Bronchodilators. Maintain end-tidal CO2 35-40. Started on Solu-Medrol on 10/15 significant COPD/ respiratory failure. GI/liver: Start tube feeds and advanced to goal as tolerated Renal/: IV hydration, strict intake output, monitor and replete electrolytes, follow BUN/creatinine. Estrella catheterization. ID: Antibiotic prophylaxis per trauma team Endocrine: Watch for hyperglycemia, SSI for glycemic control if needed Heme: Follow CBC Prophylaxis: PPI/SCDs. No heparin or Lovenox in view of TBI till cleared by Neurosurgery D/W Dr. Menezes, Dr. 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
[2016-10-12] MEDS ORDERED: IOHEXOL 350 MG/ML 10 ML VIAL (for RAD DIAG) IV ONE (09:43)
[2016-10-12] MEDS: MAGNESIUM HYDROXIDE SUSP 30 ML CUP PO SCH (10:00)
--- NOTE | 2016-10-12 10:40 | RADRPT ---
EXAM DATE/TIME: 10/12/2016 09:27 [facility] COMPARISON: No previous studies available for comparison. INDICATIONS : Trauma. Fell from ladder yesterday. Evaluate for dissection. IV CONTRAST: 100 cc Omnipaque 350 (iohexol) IV ; Cumulative dose for multiple exams. RADIATION DOSE: 28.69 CTDIvol (mGy) ; Combined studies MEDICAL HISTORY : Cardiovascular disease. Hypertension. SURGICAL HISTORY : None. ENCOUNTER: Initial ACUITY: 1 day PAIN SCALE: Non-responsive LOCATION: neck TECHNIQUE: Volumetric scanning was performed using a multirow detector CT scanner. The data was post processed with a variety of visualization algorithms including full-volume maximum intensity projection, multip lanar sliding thin-slab reformation, curved-planar reformation, and surface-rendering techniques. Us ing automated exposure control and adjustment of the mA and/or kV according to patient size, radiatio n dose was kept as low as reasonably achievable to obtain optimal diagnostic quality images. FINDINGS: AORTIC ARCH: There is a three-vessel origin of the great vessels from the aorta. No evidence of ostial narrowing. RIGHT CAROTID: The common carotid artery is intact. Mild plaque in the bulb without stenosis. The internal carotid a rtery lumen is smooth without stenosis. The external carotid artery is intact. LEFT CAROTID: The common carotid artery is intact. Mild plaque in the bulb without stenosis. The internal carotid a rtery lumen is smooth without stenosis. The external carotid artery is intact. VERTEBRALS: The vertebral arteries have a symmetric diameter. No stenotic lesions are seen. Fluid in the sphenoid sinuses. Endotracheal tube and nasogastric tube. Proximal hemorrhages are seen. CONCLUSION: Mild atherosclerotic changes in the proximal portions of both internal carotid arteries but no signif icant stenosis. Dez Petersen MD on October 12, 2016 at 10:36 Board Certified Radiologist. This report was verified electronically.
--- NOTE | 2016-10-12 10:41 | HHI.NSPN ---
Subjective History 10/12/16 He is intubated and sedated. He has shivering/shaking motor activity as well as well defined purposeful movement of both arms. GCS is [id number] = 7T. CTA is preliminary negative for dissection. Vitals . Vital Signs Date Time Temp Pulse Resp B/P Pulse Ox O2 Delivery O2 Flow Rate FiO2 10/12/16 10:00 66 10/12/16 09:30 99 40 10/12/16 08:16 97 45 10/12/16 08:00 64 10/12/16 08:00 98.4 64 16 137/77 100 10/12/16 07:00 Mechanical Ventilator 100 10/12/16 06:00 80 10/12/16 04:00 75 10/12/16 04:00 98.6 80 16 143/78 100 10/12/16 02:00 90 10/12/16 00:00 91 10/12/16 00:00 98.0 89 22 94 10/11/16 23:20 100 60 10/11/16 22:00 89 10/11/16 21:30 100 100 10/11/16 20:07 93 Venturi Mask 6.00 50 10/11/16 20:00 91 10/11/16 20:00 97.4 90 22 94 10/11/16 19:00 Non-Rebreather 94 10/11/16 18:00 102 10/11/16 16:00 98 10/11/16 12:45 100 Nasal Cannula 3.00 10/11/16 12:26 100 15.00 100 10/11/16 10/11/16 10/12/16 15:00 23:00 07:00 Intake Total 54 ml 779 ml Output Total 350 ml 2100 ml Balance -296 ml -1321 ml Physical Exam Eyes Eyes: Pupils Equal Neuro Mental Status: Sedated Drips: Diprivan @, Fentanyl @, Versed @ Pupils: Reactive Bilaterally (corneal reflexes are present but decreased on the right) [place] Coma Scale Best Eye Openin - None Best Verbal: 1 - None Best Motor: 5 - Localizes pain Cardiac Cardiac: Regular Rate & Rhythm Respiratory Respiratory: Rhonchi Gastrointestinal Gastrointestinal: Soft Bowel Sounds: Present Genitourinary Genitourinary: Estrella Catheter In Place Musculoskeletal Extremities Upper Extremities Deltoid Bicep Tricep HI W. Ext Right Left Lower Extremeties Ilio Quad Plantar Dorsi EHL Right Left Musculoskeletal Remarks Moves all extremities purposefully Dermatologic Dermatologic: Skin Intact, Abrasions (posterior head is now dry) Extremities Edema: Edematous, SCDs Objective Labs Laboratory Tests 10/11/16 12:20 10/11/16 19:40 10/12/16 05:20 Laboratory Tests Test 10/11/16 10/11/16 10/12/16 12:20 19:40 05:20 Bedside Sodium 136 MMOL/L Bedside Potassium 4.1 MMOL/L Bedside Chloride 97 MMOL/L Bedside Blood Urea Nitrogen 6 MG/DL Bedside Creatinine 1.0 MG/DL Bedside Glucose 111 MG/DL Troponin I LESS THAN 0.02 LESS THAN 0.02 NG/ML NG/ML B-Type Natriuretic Peptide 34 PG/ML Sodium Level 136 MEQ/L 139 MEQ/L Potassium Level 3.9 MEQ/L 3.7 MEQ/L Chloride Level 99 MEQ/L 103 MEQ/L Carbon Dioxide Level 28.3 MEQ/L 28.3 MEQ/L Anion Gap 9 MEQ/L 8 MEQ/L Blood Urea Nitrogen 7 MG/DL 8 MG/DL Creatinine 0.82 MG/DL 0.86 MG/DL Estimat Glomerular Filtration 81 ML/MIN 92 ML/MIN Rate Random Glucose 127 MG/DL 158 MG/DL Calcium Level 7.7 MG/DL 8.1 MG/DL Total Bilirubin 0.4 MG/DL 0.4 MG/DL Aspartate Amino Transf 38 U/L 30 U/L (AST/SGOT) Alanine Aminotransferase 33 U/L 30 U/L (ALT/SGPT) Alkaline Phosphatase 80 U/L 77 U/L Total Protein 7.4 GM/DL 7.2 GM/DL Albumin 3.2 GM/DL 3.1 GM/DL Serum Osmolality 293 MOSM/KG Laboratory Tests Test 10/11/16 10/11/16 12:20 19:38 Ethyl Alcohol Level 140 MG/DL Urine Opiates Screen NEG Urine Barbiturates Screen NEG Urine Amphetamines Screen NEG Urine Benzodiazepines Screen POS Urine Cocaine Screen NEG Urine Cannabinoids Screen NEG Imaging Remarks Last Impressions Chest X-Ray 10/12/16 0600 Signed Impressions: Service Date/Time: Wednesday, October 12, 2016 05:11 - CONCLUSION: Minimal increased density at the bases representing minimal atelectasis or consolidation. Red Joshua MD Head CT 10/11/161999 Signed Impressions: Service Date/Time: Tuesday, October 11, 2016 22:04 - CONCLUSION: Much worse in the interim. There is increased and extensive subdural and subarachnoid blood as above. Multifocal parenchymal hemorrhage now present of both frontal and temporal lobes, especially the right frontal lobe.. There is about 9 mm of leftward midline shift. 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 MD Pelvis X-Ray 10/11/161212 Signed Impressions: Service Date/Time: Tuesday, October 11, 2016 12:02 - CONCLUSION: Satisfactory trauma pelvis appearance. Red Hoffman MD Chest CT 10/11/161212 Signed Impressions: Service Date/Time: Tuesday, October 11, 2016 12:19 - CONCLUSION: Negative for acute traumatic injury. There is no pneumothorax. Davis Nolasco MD FACR Cervical Spine CT 10/11/161212 Signed Impressions: Service Date/Time: Tuesday, October 11, 2016 12:19 - CONCLUSION: Occipital skull fracture. No evidence of acute traumatic injury in the cervical spine Red Hoffman MD Abdomen/Pelvis CT 10/11/161212 Signed Impressions: Service Date/Time: Tuesday, October 11, 2016 12:19 - CONCLUSION: Negative CT scan of the abdomen and pelvis for acute traumatic injury. Davis Nolasco MD FACR Assessment & Plan Diagnosis: (1) Subdural hemorrhage following injury Plan: 10/12/16 Contre- coup right SDH about 6mm associated with multiple bifrontal and bi temporal contusions and SAH, stable radiologically over 24 hrs. Skull base injury is suspected from the sphenoid air/fluid level but no dissection is seen preliminary on the CTA of the head and neck. (2) Fracture of occipital bone of skull with loss of consciousness Plan: Stable no new extra axial collection, small left occipital bleed has not changed overnight. (3) Encephalopathy acute Plan: Encephalopathy from ETOH withdrawal as well as head injury, will support metabolically and keep SBP 120-140. Baseline EEG is requested today. Jerome Sosa Oct 12, 2016 10:41
[2016-10-12] MEDS: PANTOPRAZOLE SODIUM 40 MG VIAL IVP SCH (12:07)
--- NOTE | 2016-10-12 12:29 | EC ---
Study Study Date:10/12/2016 STUDY CONCLUSIONS SUMMARY - Left ventricle: The cavity size was normal. Wall thickness was normal. Systolic function was normal. The estimated ejection fraction was in the range of 55% to 60%. Wall motion was normal; there were no regional wall motion abnormalities. - Aortic valve: Trace regurgitation. Valve area: 1.69cm^2(VTI). Valve area: 1.93cm^2 (Vmax). - Tricuspid valve: Mild regurgitation. - Pericardium, extracardiac: A trivial pericardial effusion was identified. If LV function is below 40, please consider prescribing an ACEI or ARB or document rationale for non-use. PROCEDURE DATA STUDY STATUS: Elective. Procedure: Transthoracic echocardiography. Image quality was suboptimal. The study was technically limited due to poor acoustic window availability. Scanning was performed from the parasternal, apical, and subcostal acoustic windows. Study completion: The patient tolerated the procedure well. Transthoracic echocardiography. M-mode, complete 2D, complete spectral Doppler, and color Doppler. Weight: Weight: 211.6lb. Patient status: Inpatient. CARDIAC ANATOMY LEFT VENTRICLE: The cavity size was normal. Wall thickness was normal. Systolic function was normal. The estimated ejection fraction was in the range of 55% to 60%. Wall motion was normal; there were no regional wall motion abnormalities. AORTIC VALVE: Trileaflet; normal thickness leaflets. Doppler: Transvalvular velocity was within the normal range. There was no stenosis. Trace regurgitation. Valve area: 1.69cm^2(VTI). Valve area: 1.93cm^2 (Vmax). Mean gradient: 5mm Hg (S). AORTA: Aortic root: The aortic root was normal in size. MITRAL VALVE: Structurally normal valve. Doppler: Transvalvular velocity was within the normal range. There was no evidence for stenosis. Trace regurgitation. LEFT ATRIUM: The atrium was normal in size. RIGHT VENTRICLE: The cavity size was normal. Wall thickness was normal. PULMONIC VALVE: Doppler: Transvalvular velocity was within the normal range. There was no evidence for stenosis. No regurgitation. TRICUSPID VALVE: Structurally normal valve. Doppler: Transvalvular velocity was within the normal range. Mild regurgitation. PULMONARY ARTERY: The main pulmonary artery was normal-sized. Systolic pressure was within the normal range. RIGHT ATRIUM: The atrium was normal in size. PERICARDIUM: A prominent pericardial fat pad was present. A trivial pericardial effusion was identified. SYSTEMIC VEINS: Inferior vena cava: The vessel was normal in size. Patient weight: 211.6lb _Ejection fraction:_ 65-75% _Fractional shortening:_ 32% up to 5Kg 5-11.5Kg 11.6-22.9Kg 23-45Kg 45-57Kg Aortic Root 7-13 <17 13-22 17-27 17-27 LA diam 6-13 <23 24-38 33-47 37-40 RVID 10-17 7-15 7-15 7-18 8-17 LVIDd 12-22 <32 24-38 33-47 37-40 LVPW 2-4 3-6 5-7 6-8 7-8 IVS 2-4 3-6 5-7 6-8 7-8 BASIC MEASUREMENTS ADULT NORMAL Left ventricle LV internal dimension, ED, chordal level, 45.3 mm 43-52 PLAX LV internal dimension, ES, chordal level, 29.8 mm 23-38 PLAX Fractional shortening, chordal level, PLAX 34 % >29 LV posterior wall thickness, ED 9.7 mm IVS/LVPW ratio, ED 1.01 <1.3 Ventricular septum Septal thickness, ED 9.75 mm Aorta Root diameter, ED 34 mm Left atrium Anterior-posterior dimension 30 mm DOPPLER MEASUREMENTS ADULT NORMAL Main pulmonary artery Pressure, S 28 mm Hg =30 Aortic valve Peak velocity, S 149 cm/s Mean velocity, S 98.9 cm/s VTI, S 31.2 cm Mean gradient, S 5 mm Hg Valve area, VTI 1.69 cm^2 Valve area, Vmax 1.93 cm^2 Mitral valve Peak E-wave velocity 65.2 cm/s Peak A-wave velocity 84.4 cm/s Deceleration time *271 ms 150-230 Peak E/A ratio 0.8 Tricuspid valve Regurgitant peak velocity 163 cm/s Peak RV-RA gradient, S 11 mm Hg Maximal regurgitant velocity 163 cm/s Systemic veins Estimated CVP 20 mm Hg Right ventricle RV pressure, S *31 mm Hg <30 Pulmonic valve Peak velocity, S 82 cm/s LEGEND: Mean values are shown as u=mean value. Asterisk (*) multani values outside specified normal range. Prepared and signed by Doug Gamino [id number]
--- NOTE | 2016-10-12 12:40 | PD.HHIRCNE ---
Patient History Record/History Review Medical Information Review: Hx of present illness Reason for Referral: The patient is a 56 year old unknown handed male status post traumatic brain injury secondary to a fall from a ladder on 10/11/2016. At the scene his GCS was 6, and on arrival improved to 11. Neuroimaging is notable for SDH and SAH, with bifrontal and bitemporal contusions and midline shift. His history is notable for both TOB and ETOH. He is referred for baseline neurobehavioral status exam per trauma protocol to assess cognitive, behavioral and emotional aspects of the injury. Neuropsych Precautions: History of alcohol dependence. Past Surgical/Medical History Past Surgery: Yes Major surgery in last 100 days: Unknown Hx Orthopedic Surgery: Yes (rt ankle) Hx Seizures: No Cephalgia (Headaches): No Hx Migraines: No Hx Head Injury: No Hx Falls: Yes (10/11/16) Hx Cerebrovascular Accident: No Hx Dizziness: No Hx Numbness: No Hx Arthritis: Yes (carpal tunnel) Hx Back Problem: Yes (lower back pain) Hx of Cardiovascular Prob: Yes Hypertension (High Blood Press: Yes Hx Clotting Problems: No Venous Thromboembolism Present: No Hx Chest Pain: No Hx Lightheadedness: No Hx Congestive Heart Failure: No Syncope (Fainting): No Hx of Respiratory Problem: No Hx of GI Problems: Yes (stomach cramping) Hx Heartburn: No Hx Gastroesophageal Reflux: No Hx Hiatal Hernia: No Hx Ulcer: No Hx Liver Disease: No Hx Gallbladder Disease: No Hx Inflammatory Bowel Disease: No Hx of Problems: No Hx Renal Disease: No Hx Renal Failure: No Hx Kidney Transplant: No Hx Kidney Stones: No Hx Nephrectomy: No Hx Infection: No Hx Prostate Problems: No Hx Genital Problems: No Hx of Immuno Disor: No Hx Autoimmune Disease: No Hx of Endocrine Problems: No Hx Thyroid Disease: No Hx Diabetes: No Does Patient Currently Take Gl: No Diabetic Diagnosed 3 Months Or: No Hx of Eye Probl: No Hx of Hearing or Ear Problems: No Hx Dental Problems: No Hx Psychiatric Problems: No Hx Anxiety: Yes Hx Depression: Yes Hx Blood Dyscrasias: No Hx Sickle Cell Disease: No Hx Thrombocytopenia: No Hx Hemophilia: No Hx of Heparin Induced Thr: No Hx of MDRO: No Hx of MRSA: No Hx of VRE: No Hx of CDIFF: No Hx of Tuberculosis: No Hx Chicken Pox: No If No, Have You Been Exposed W: No Hx Measles: No Hx of Body/Medical Devices: No Hx Pacemaker: No Hx Internal Defibrillator: No Central Line/Ports (Type): No Hx Joint Replacement: No Insulin Pump: No Hx Arteriovenous Shunt: No Hx Dental Implants: No Hx Eye Prosthesis: No Genitourinary Device: No Genitourinary Ostomy: No Gastrointestinal Ostomy: No Blood Transfusion History Will receive Blood /Blood prod: Yes Hx Blood Transfusions: No Medication Active Medications Atropine Sulfate (Atropine Inj) 1 mg STK-MED ONCE .ROUTE; Start 10/12/16 at 08: 47; Stop 10/12/16 at 08:48; Status DC Atropine Sulfate 1 mg 1 mg STK-MED ONCE .ROUTE; Start 10/11/16 at 21:33; Stop at 21:34; Status DC Chlorhexidine Gluconate (Chlorhexidine 2% Cloth) 3 pack UNSCH PRN TOP; Start at 13:00 Chlorhexidine Gluconate (Chlorhexidine 2% Cloth) 3 pack Taper DAILY@04 TOP; Start 10/12/16 at 04:00; Stop 10/08/17 at 03:59 Chlorhexidine Gluconate 15 ml 15 ml BID@08,20 MT Last administered on 10/12/16t 08:00; Admin Dose 15 ML; Start 10/12/16 at 08:00 Dexmedetomidine HCl (Precedex Inj) 50 ml @ 0 mls/hr TITRATE IV Last administered on 10/11/16t 16:53; Admin Dose 1 MLS/HR; Start 10/11/16 at 16:30; Stop 10/12/16 at 11:11; Status DC Docusate Sodium (Colace) 100 mg BID PO; Start 10/11/16 at 21:00 Enalaprilat (Vasotec Inj) 1.25 mg Q8H PRN IV; Start 10/11/16 at 13:00 Epinephrine HCl (EPINEPHrine (1:10,000) INJ) 1 mg STK-MED ONCE .ROUTE; Start at 21:33; Stop 10/11/16 at 21:34; Status DC Epinephrine HCl (EPINEPHrine (1:10,000) INJ) 1 mg STK-MED ONCE .ROUTE; Start at 08:47; Stop 10/12/16 at 08:48; Status DC Etomidate (Amidate Inj) 20 mg ONCE ONCE IV PUSH; Start 10/11/16 at 20:45; Stop 10/11/16 at 20:46; Status DC Fentanyl Citrate (fentaNYL DRIP) 250 ml @ 0 mls/hr TITRATE IV Last administered on 10/12/16 05:19; Admin Dose 0 MLS/HR; Start 10/12/16 at 05:00 Fentanyl Citrate (fentaNYL INJ) 100 mcg STK-MED ONCE .ROUTE Last administered on 10/11/16 20:53; Admin Dose 100 MCG; Start 10/11/16 at 20:53; Stop 10/11/16 at 20:54; Status DC Haloperidol Lactate (Haldol Inj) 2 mg Q15M PRN IM Last administered on 18:05; Admin Dose 2 MG; Start 10/11/16 at 17:30 Hydralazine HCl (Apresoline Inj) 10 mg Q2H PRN IV PUSH; Start 10/11/16 at 13:30 Hydralazine HCl (Apresoline Inj) 20 mg STK-MED ONCE .ROUTE Last administered on 10/11/16 13:01; Admin Dose 20 MG; Start 10/11/16 at 13:01; Stop 10/11/16 at 13: 02; Status DC Iohexol (Omnipaque 350 Inj) 100 ml STK-MED ONCE IV Last administered on 09:43; Admin Dose 100 ML; Start 10/12/16 at 09:43; Stop 10/12/16 at 09:44; Status DC Iohexol 100 ml 100 ml STK-MED ONCE IV; Start 10/11/16 at 12:42; Stop 10/11/16 at 12:43; Status Cancel IV Flush (NS Flush) 2 ml UNSCH PRN IVF; Start 10/11/16 at 13:00 Labetalol HCl 10 mg 10 mg Q4H PRN IV PUSH; Start 10/11/16 at 13:30 Levetriacetam/ Sodium Chloride (Keppra Inj/NS Inj) 105 ml @ 420 mls/hr Q12HR IV Last administered on 10/12/16 08:54; Admin Dose 420 MLS/HR; Start 10/11/16 at 21:00 Lidocaine HCl (Xylocaine 2% Inj) 100 mg STK-MED ONCE .ROUTE; Start 10/11/16 at 21:33; Stop 10/11/16 at 21:34; Status DC Lorazepam (Ativan Inj) 2 mg Q2HR PRN IV PUSH; Start 10/11/16 at 17:30 Lorazepam (Ativan Inj) 2 mg Q4HR PRN IV PUSH Last administered on 10/11/16 18: 05; Admin Dose 2 MG; Start 10/11/16 at 17:30 Lorazepam (Ativan Inj) 4 mg ONCE ONCE IV PUSH Last administered on 10/11/16 19 :00; Admin Dose 4 MG; Start 10/11/16 at 19:00; Stop 10/11/16 at 19:02; Status DC Magnesium Hydroxide (Milk Of Magnesia Liq) 30 ml DAILY PO; Start 10/12/16 at 10: 00 Magnesium Hydroxide (Milk Of Magnesia Liq) 30 ml Q6H PRN PO; Start 10/11/16 at 13:00; Stop 10/12/16 at 09:00; Status DC Mannitol 25 gm 25 gm ONCE ONCE IV Last administered on 10/11/16 19:00; Admin Dose 25 GM; Start 10/11/16 at 19:00; Stop 10/11/16 at 19:02; Status DC Methylprednisolone Sodium Succinate 80 mg 80 mg Q12H IV PUSH Last administered on 10/12/16 05:19; Admin Dose 80 MG; Start 10/11/16 at 18:00 Midazolam HCl 100 ml @ 0 mls/hr TITRATE IV Last administered on 10/12/16 01:00 ; Admin Dose 5 MLS/HR; Start 10/11/16 at 20:45 Midazolam HCl (Versed Inj) 5 mg ONCE ONCE IV Last administered on 10/11/16 20: 45; Admin Dose 5 MG; Start 10/11/16 at 20:45; Stop 10/11/16 at 20:46; Status DC Miscellaneous Information 1 [id number] Last administered on 10/11/16 13:00; Admin Dose 1; Start 10/11/16 at 13:00 Multivitamins 10 ml/Folic Acid 1 mg/Sodium Chloride 510.2 ml @ 125 mls/hr Q24H IV Last administered on 10/11/16 23:41; Admin Dose 125 MLS/HR; Start 10/11/16 at 20:00; Stop 10/16/16 at 19:59 Nicardipine HCl 25 mg/Sodium Chloride 260 ml @ 0 mls/hr TITRATE IV; Start at 13:30 Ondansetron HCl (Zofran Inj) 4 mg Q6H PRN IV; Start 10/11/16 at 13:00 Pantoprazole Sodium (Protonix Inj) 40 mg Q24H IVP Last administered on 12:07; Admin Dose 40 MG; Start 10/11/16 at 13:00 Propofol 100 ml @ 0 mls/hr TITRATE IV Last administered on 10/12/16 08:53; Admin Dose 0 MLS/HR; Start 10/11/16 at 20:45 Rocuronium [place] (Zemuron Inj) 50 mg BOLUS ONCE IV Last administered on 20:45; Admin Dose 50 MG; Start 10/11/16 at 20:45; Stop 10/11/16 at 20:46; Status DC Sodium Acetate/ Sodium Chloride/ Sodium Chloride (Sodium Acetate Inj/Sodium Chloride 23.4% Inj/NS 1000 ml Inj) 1,067 ml @ 20 mls/hr Q24H IV; Start at 20:00; Stop 10/12/16 at 00:48; Status DC Sodium Chloride (NS 1000 ml Inj) 1,000 ml @ 70 mls/hr [id number] IV Last administered on 10/12/16 00:43; Admin Dose 70 MLS/HR; Start 10/11/16 at 13:00 Sodium Chloride (Sodium Chloride 3% Inj) 500 ml @ 30 mls/hr DAILY IV Last administered on 10/12/16 08:55; Admin Dose 30 MLS/HR; Start 10/11/16 at 20:45; Stop 10/16/16 at 20:44 Thiamine HCl (Thiamine Inj) 100 mg DAILY IM; Start 10/12/16 at 09:00; Status UNV Thiamine HCl 100 mg 100 mg DAILY IM; Start 10/15/16 at 09:00; Status UNV Thiamine HCl/ Sodium Chloride (Thiamine Inj/NS Inj) 101 ml @ 100 mls/hr Q24H IV Last administered on 10/11/16 20:27; Admin Dose 100 MLS/HR; Start 10/11/16 at 20:00 Mental Status Assessment Orientation: unable to asses Self, unable to asses Place, unable to asses Time , unable to asses Situation Observation This patient is sedated and intubated at present. Adjustment/Coping Assessment Adjustment/Coping: Not Assessed: Depression, Anxiety, Pain, Apathy, Awareness, Insight LTG Status: Deferred STG Status: Deferred Team Members: Neuropsychologist Behavior Assessment Agitation: None Treatment Engagement: No effort LTG - Status: Deferred STG Status: Deferred Team Members: Neuropsychologist Feedback/Education Barriers to Treatment: Capacity to Self-Determine, Cognition Diagnosis/Discharge Plan Diagnosis: (1) Major neurocognitive disorder as late effect of traumatic brain injury with behavioral disturbance Status: Acute (2) Alcohol dependence Status: Acute [facility] Level: I:No response-total assistance Maximizing acute care outcome It is recommended that the patient be monitored for emergent behavioral impulsivity as the medical condition evolves. This patients neuropathological challenges may limit their rehabilitation potential going forward, and these challenges will require specialized therapeutic skills to maximize outcome. Additionally, the patients family is experiencing ongoing issues of adjustment given the traumatic nature of the injury, and they will benefit from ongoing psychological assistance. His noted history of alcohol dependence is being medically treated within the context of brain injury treatment. Discharge Planning Anticipated Problems Ongoing areas of concern will include behavioral impulsivity, lack of insight and judgment, which is expected to improve with time and treatment. Presently , the patient is not following commands. Barriers to Discharge: Capacity to Self-Determine Treatment Plan This clinician will continue to follow with you throughout the course of this patients rehabilitation treatment, and I will be available to meet with the patients family/support system to facilitate their understanding and the ongoing care of their family member. The goals of neuropsychological intervention shall be both educational and supportive to the family/support system as is deemed clinically appropriate. Discharge Needs To be determined. Thank you Thank you for the opportunity to assist in this patients care. Kermit Hughes, Ph.D., ABPP Board Certified in Clinical Neuropsychology [place] [employer] Professional Psychology [place] Licensed Psychologist [id number] Kermit Hughes PhD Oct 12, 2016 12:40 pm
--- NOTE | 2016-10-12 13:18 | RADRPT ---
EXAM DATE/TIME: 10/12/2016 09:27 [place] COMPARISON: CT BRAIN W/O CONTRAST, October 11, 2016, 22:04. INDICATIONS : Trauma. Fell from ladder yesterday. Evaluate for dissection. IV CONTRAST: 100 cc Omnipaque 350 (iohexol) IV ; Cumulative dose for multiple exams. RADIATION DOSE: 28.69 CTDIvol (mGy) ; Combined studies MEDICAL HISTORY : Cardiovascular disease. Hypertension. SURGICAL HISTORY : None. ENCOUNTER: Initial ACUITY: 1 day PAIN SCALE: Non-responsive LOCATION: cranial TECHNIQUE: Volumetric scanning was performed using a multi-row detector CT scanner. The data was post processed with a variety of visualization algorithms including full volume maximum intensity projection, multi -planar sliding thin slab reformation, curved planar reformation, and surface rendering techniques. Using automated exposure control and adjustment of the mA and/or kV according to patient size, radiat ion dose was kept as low as reasonably achievable to obtain optimal diagnostic quality images. FINDINGS: There is excellent visualization of the major intracranial arteries out to the second-order branch ve ssels. There is no evidence for aneurysm, vessel truncation or stenosis, and no evidence for vascula r malformation. There is no evidence of vessel dissection. Sequelae of intracranial trauma are again noted including bifrontal parenchymal contusions, extra-axi al hemorrhagic collections no skull fractures. CONCLUSION: No evidence of acute vascular injury Red Hoffman MD on October 12, 2016 at 13:12 Board Certified Radiologist. This report was verified electronically.
[2016-10-12 18:17] LABS: BLOOD GAS BASE EXCESS 1.9 mmol/L (-2-2); BLOOD GAS CARBOXYHEMOGLOBIN 0.9 % (0-4); BLOOD GAS HCO3 27 mmol/L (22-26); BLOOD GAS METHEMOGLOBIN 0.8 % (0-2); BLOOD GAS O2 HGB SATURATION 92 % (90-100); BLOOD GAS OXYGEN CONTENT 18.6 Vol % (12.0-20.0); BLOOD GAS PCO2 46 mmHg (38-42); BLOOD GAS PO2 72 mmHg (61-120); BLOOD GAS TOTAL HGB 14.4 G/DL (12.0-16.0); CRITICAL VALUE NO; DRAW SITE RT RADIAL; FIO2 50 %; NUMBER OF ARTERIAL PUNCTURES 1; OXYGEN DEVICE VENTILATOR; TEMP CORR TO 98.6; ULNAR PULSE PRESENT; VENT SETTINGS PRVC/AC
[2016-10-12 18:18] LABS: STAT NO
--- NOTE | 2016-10-12 19:01 | HHI.CCPN ---
Subjective Brief History Elderly male who was brought in as a trauma alert after he fell 10 feet from a ladder. GCS 6 initially at the scene subsequently improved to 11 on arrival in the ER. Patient was evaluated by trauma team and subsequently underwent imaging studies and transferred to the ICU. Imaging studies revealed an occipital skull fracture, subdural and subarachnoid blood. Patient was awake and alert at the time of evaluation and following commands and moving all 4 extremities. He could not hear and had some speech difficulty at the time of my evaluation with difficulty in communication though was following commands appropriately. C spine cleared by Neurosurgery at the time of my evaluation. Patient developed worsening agitation despite Precedex last evening. Since then patient had to be intubated ventilated and is currently on propofol fentanyl and Versed drips to keep him down When these are discontinued or less and patient starts biting on the to and becomes restless moves all [address] scan of the head reveals worsening subdural and subarachnoid hemorrhage and the midline shift of about 8 mm 24 Hour Review/Hospital Course Patient has worsened in last 24 hours Repeat CAT scan reveals worsening subdural bleeding over the right parieto- occipital area and [id number] shift of about 8 mm Patient is elderly and a heavy drinker and therefore has atrophy of the brain so there is some more space that allows for compartment pressure IE ICP to remain low We will discuss with neurosurgery about placing ICP monitor or even draining subdural hematoma at this time. Patient remains hyperventilated and on hypertonic saline nonetheless will require bolt placement to assess for ICP and the effectiveness of the therapy Objective Vital Signs Date Time Temp Pulse Resp B/P Pulse Ox O2 Delivery O2 Flow Rate FiO2 10/12/16 18:00 88 10/12/16 16:54 94 50 10/12/16 16:00 98.4 16 105/63 10/12/16 07:00 Mechanical Ventilator 10/11/16 20:07 6.00 Intake and Output 10/11/16 10/11/16 10/12/16 08:00 16:00 00:00 Intake Total 54 ml 779 ml Output Total 350 ml 2100 ml Balance -296 ml -1321 ml Result Diagram: 10/12/16 0520 10/12/16 1817 Other Results Laboratory Tests Test 10/12/16 10/12/16 00:48 18:06 Blood Gas Puncture Site LT BRACHIAL RT RADIAL Blood Gas Patient Temperature 98.6 98.6 Blood Gas HCO3 26 mmol/L 27 mmol/L (22-26) (22-26) Blood Gas Base Excess 1.9 mmol/L 1.9 mmol/L (-2-2) (-2-2) Blood Gas Oxygen Saturation 90 % (90-100) 92 % (90-100) Arterial Blood pH 7.40 7.38 (7.380-7.420) (7.380-7.420) Arterial Blood Partial 44 mmHg (38-42) 46 mmHg (38-42) Pressure CO2 Arterial Blood Partial 67 mmHg 72 mmHg Pressure O2 (61-120) (61-120) Arterial Blood Oxygen Content 19.5 Vol % 18.6 Vol % (12.0-20.0) (12.0-20.0) Arterial Blood 1.1 % (0-4) 0.9 % (0-4) Carboxyhemoglobin Arterial Blood Methemoglobin 0.9 % (0-2) 0.8 % (0-2) Blood Gas Hemoglobin 15.3 G/DL 14.4 G/DL (12.0-16.0) (12.0-16.0) Oxygen Delivery Device VENTILATOR VENTILATOR Blood Gas Ventilator Setting PRVC PRVC/AC Blood Gas Inspired Oxygen 50 % 50 % Imaging Last 24 hours Impressions Chest X-Ray 10/12/16 0600 Signed Impressions: Service Date/Time: Wednesday, October 12, 2016 05:11 - CONCLUSION: Minimal increased density at the bases representing minimal atelectasis or consolidation. Red Joshua MD Neck CTA 10/12/16 0000 Signed Impressions: Service Date/Time: Wednesday, October 12, 2016 09:27 - CONCLUSION: Mild atherosclerotic changes in the proximal portions of both internal carotid arteries but no significant stenosis. Dez Petersen MD Head CTA 10/12/16 0000 Signed Impressions: Service Date/Time: Wednesday, October 12, 2016 09:27 - CONCLUSION: No evidence of acute vascular injury Red Hoffman MD Head CT 10/11/161999 Signed Impressions: Service Date/Time: Tuesday, October 11, 2016 22:04 - CONCLUSION: Much worse in the interim. There is increased and extensive subdural and subarachnoid blood as above. Multifocal parenchymal hemorrhage now present of both frontal and temporal lobes, especially the right frontal lobe.. There is about 9 mm of leftward midline shift. 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 As above noted patient has worsened required intubation and CT scan is reflecting the worsening clinical situation with increased bleeding and midline shift Hemodynamic/Cardiac Hemodynamically intact but patient may have known diagnosis coronary artery disease or other problems for he is not very compliant with medical care or follow-up with physicians Pulmonary/Respiratory Bilateral breath sounds patient has worsened and required intubation now is being hyperventilated and CO2 should remain anywhere from 32-38 mmHg Abdomen/GI Nutrition Abdomen is soft Vascular Central Line Catheter Date of Insertion: Oct 11, 2016 Line: Central Venous Catheter Location: Subclavian Assessment and Plan Attestation Plan Continue supportive therapy to minimize ICP We will discuss with neurosurgery placement of a ICP monitor versus drainage of the right subdural hematoma and decompression or both The exam, history, and the medical decision-making described in the above note were completed with the assistance of the mid-level provider. I reviewed and agree with the findings presented. I attest that I had a [id number] encounter with the patient on the same day, and personally performed and documented my assessment and findings in the medical record. Critical care time 50 minutes. Sherry Parikh MD Oct 12, 2016 19:01
[2016-10-12] MEDS: MULTIVITAMIN INJ 10 ML, FOLIC ACID INJ 1 MG in SODIUM CHLORID 0.9% 500 ML INJ 500 ML IV SCH (19:21)
[2016-10-12] MEDS: THIAMINE INJ 100 MG in SODIUM CHLORIDE 0.9% INJ 100 ML IV SCH (19:29)
[2016-10-12] MEDS: LORazepam 2 MG/ML VIAL IV PUSH PRN (19:43)
--- NOTE | 2016-10-12 19:46 | MG ---
cc: CORTEZ BIGGS M.D. Lab No: Date: 10/12/2016 Age: Sex: M Race: Cc: DATE OF 1960, 56 years old ELECTROENCEPHALOGRAM NUMBER [id number] ROOM 1307 Intubated on Diprivan 30 mcg with fentanyl at 250 micrograms, Versed at 10 milligrams. With photic stimulation. The patient moves all extremities. Sedation given because he was trying to get up. CT showed much worsening, increased and extensive subdural subarachnoid blood. Multifocal hemorrhage now present on both temporal lobes especially the right lobe. A 9 mm leftward shift. A 56-year-old man who fell off of ladder, 10 feet. CPR for a few minutes because bystander said that he was blue. Ethanol level of 140. History of hypertension. . Depression. Lower back issues. MEDICATIONS On: 1. Fentanyl. 2. Versed. 3. Diprivan. 4. Now on Keppra as well. 5. Thiamine. 6. Solu-Medrol. DESCRIPTION OF RECORD A lot of artifact. Even the EKG cannot be interpreted. Beauty Operator is trying to fix some of the artifact in the recording. Some faster frequency waves may look like beta waves but difficult to tell if truly artifactual or not. Photic stimulation does not elicit any significant driving response. No gross epileptic activity. IMPRESSION Overall poor study due to a lot of artifact but there is some beta frequency may be due to medication effect. No appreciable epileptic activity was seen. Clinical correlation. MD RAFFAELE Green/HE /7:01 PM /7:39 PM
[2016-10-12 22:45] LABS: BLOOD GAS BASE EXCESS 1.5 mmol/L (-2-2); BLOOD GAS HCO3 25 mmol/L (22-26); BLOOD GAS METHEMOGLOBIN 0.8 % (0-2); BLOOD GAS O2 HGB SATURATION 94 % (90-100); BLOOD GAS PCO2 38 mmHg (38-42); BLOOD GAS PO2 79 mmHg (61-120); BLOOD GAS TOTAL HGB 13.6 G/DL (12.0-16.0); CRITICAL VALUE NO; DRAW SITE ALINE; FIO2 50 %; TEMP CORR TO 98.6
[2016-10-12 22:46] LABS: STAT NO
[2016-10-13] VITALS (21 sets, daily range): BP systolic 113–150; BP diastolic 60–70; PULSE 64–95; RESP 18–24; TEMP 98.5–99.9; O2SAT 95–100
[2016-10-13] MEDS: PROPOFOL 1000 MG/100 ML INJ 100 ML IV SCH ×4 (01:14→19:56)
[2016-10-13] MEDS: MIDAZOLAM 100 MG/ML INJ 100 ML IV SCH ×3 (01:14→19:57)
[2016-10-13] MEDS: CHLORHEXIDINE GLUCONATE 2 % 1 PACK (2 CLOTHS) TOP SCH (03:55)
[2016-10-13] MEDS: RESP: ALBUTEROL 2.5 MG/IPRATROPIUM 0.5 MG NEB (SCH) NEB ×6 (04:23→20:05)
[2016-10-13 04:49] LABS: BLOOD GAS BASE EXCESS 1.1 mmol/L (-2-2); BLOOD GAS CARBOXYHEMOGLOBIN 0.9 % (0-4); BLOOD GAS HCO3 25 mmol/L (22-26); BLOOD GAS METHEMOGLOBIN 0.9 % (0-2); BLOOD GAS O2 HGB SATURATION 93 % (90-100); BLOOD GAS OXYGEN CONTENT 17.5 Vol % (12.0-20.0); BLOOD GAS PCO2 39 mmHg (38-42); BLOOD GAS PO2 79 mmHg (61-120); BLOOD GAS TOTAL HGB 13.3 G/DL (12.0-16.0); CRITICAL VALUE NO; TEMP CORR TO 98.6
[2016-10-13 04:50] LABS: DRAW SITE ALINE; FIO2 50 %; STAT NO
[2016-10-13] MEDS: SODIUM CHLOR 0.9% 1000 ML INJ 1,000 ML IV SCH ×2 (04:56→19:58)
[2016-10-13 04:59] LABS: AUTOMATED NEUTROPHIL # 12.3 TH/MM3 (1.8-7.7); BASOPHIL # 0.1 TH/MM3 (0-0.2); BASOPHIL % 0.4 % (0.0-2.0); HEMATOCRIT 38.7 % (39.0-51.0); LYMPH % 5.9 % (9.0-44.0); LYMPHOCYTE # 0.9 TH/MM3 (1.0-4.8); MEAN CORPUSCULAR HEMOGLOBIN 32.9 PG (27.0-34.0); MEAN CORPUSCULAR HGB CONC 33.5 % (32.0-36.0); NEUT % 78.7 % (16.0-70.0); PLATELET COUNT 200 TH/MM3 (150-450); RED BLOOD COUNT 3.95 MIL/MM3 (4.50-5.90); RED CELL DISTRIBUTION WIDTH 14.6 % (11.6-17.2); WHITE BLOOD COUNT 15.6 TH/MM3 (4.0-11.0)
[2016-10-13 05:00] LABS: HEMO FLAGS AUTO DIFF
[2016-10-13] MEDS: 3% SALINE INJ 500 ML IV SCH ×2 (05:01→23:22)
[2016-10-13] MEDS: methylPREDNISolone SOD SUCC 125 MG/2 ML VIAL IV PUSH SCH ×2 (05:01→18:00)
--- NOTE | 2016-10-13 05:11 | RADRPT ---
EXAM DATE/TIME: 10/13/2016 04:18 [facility] COMPARISON: CHEST SINGLE AP, October 12, 2016, 5:11. INDICATIONS : Shortness of breath. MEDICAL HISTORY : Cardiovascular disease. Hypertension. SURGICAL HISTORY : None. ENCOUNTER: Subsequent ACUITY: 3 days PAIN SCORE: Non-responsive. LOCATION: Bilateral chest FINDINGS: ET tube, NG tube and left subclavian line are in good position. The heart is normal. There is minimal increased density at the right base. Left lung is clear. CONCLUSION: Minimal right base atelectasis or consolidation. Red Joshua MD on October 13, 2016 at 5:08 Board Certified Radiologist. This report was verified electronically.
[2016-10-13 05:27] LABS: BICARBONATE 27.7 MEQ/L (21.0-32.0); MAGNESIUM 2.1 MG/DL (1.5-2.5); POTASSIUM 3.6 MEQ/L (3.5-5.1)
[2016-10-13 06:52] LABS: NEUTROPHIL # MANUAL DIFF 13.3 TH/MM3 (1.8-7.7); PLATELET ESTIMATE SMEAR NORMAL (NORMAL); PLATELET MORPHOLOGY NORMAL (NORMAL); POLYS (SEG NEUTROPHILS) 85 % (16-70); SCAN/DIFF FINAL DIFF MANUAL; WBC DIFF SAMPLE 100
[2016-10-13] MEDS: CHLORHEXIDINE 0.12% (ORAL KIT) 15 ML CUP MT SCH ×2 (08:00→19:58)
[2016-10-13] MEDS: DOCUSATE SODIUM 100 MG CAP PO SCH ×2 (08:01→19:57)
[2016-10-13] MEDS: levETIRAcetam INJ 500 MG in SODIUM CHLORIDE 0.9% INJ 100 ML IV SCH ×2 (08:01→19:57)
[2016-10-13] MEDS: MAGNESIUM HYDROXIDE SUSP 30 ML CUP PO SCH (08:30)
--- NOTE | 2016-10-13 10:32 | HHI.NSPN ---
Subjective History 10/12/16 He is intubated and sedated. He has shivering/shaking motor activity as well as well defined purposeful movement of both arms. GCS is E1V1M5 = 7T. CTA is negative for dissection. 10/13/16 He is intubated and sedated. He is tremoulous but with good perfusion pressures. Vitals . Vital Signs Date Time Temp Pulse Resp B/P Pulse Ox O2 Delivery O2 Flow Rate FiO2 10/13/16 10:00 72 10/13/16 09:53 96 40 10/13/16 08:18 99 40 10/13/16 08:18 100 40 10/13/16 08:00 98.8 64 23 138/60 99 10/13/16 08:00 64 10/13/16 07:00 Mechanical Ventilator 98 10/13/16 06:00 72 10/13/16 04:24 100 50 10/13/16 04:00 99.5 72 22 113/60 99 10/13/16 04:00 72 10/13/16 02:00 76 10/13/16 00:01 99 50 10/13/16 00:00 83 10/13/16 00:00 99.1 83 24 122/62 99 10/12/16 22:00 60 10/12/16 21:05 97 50 10/12/16 20:00 77 10/12/16 20:00 101.3 87 24 133/67 99 10/12/16 19:00 Mechanical Ventilator 96 10/12/16 18:00 88 10/12/16 16:54 94 50 10/12/16 16:00 98.4 56 16 105/63 99 10/12/16 16:00 56 10/12/16 14:00 70 10/12/16 12:49 99 50 10/12/16 12:00 98.0 65 16 120/69 99 10/12/16 12:00 65 10/12/16 10/12/16 10/13/16 15:00 23:00 07:00 Intake Total 1319 ml 1158 ml 1407 ml Output Total 350 ml 400 ml 300 ml Balance 969 ml 758 ml 1107 ml Physical Exam Eyes Eyes: Pupils Equal Neuro Mental Status: Sedated Pupils: Reactive Bilaterally Face: Symmetric Pawel Coma Scale Best Eye Openin - None Best Verbal: 1 - None Best Motor: 1 - None Cardiac Cardiac: Regular Rate & Rhythm Respiratory Respiratory: CTA Gastrointestinal Gastrointestinal: Soft Genitourinary Genitourinary: Estrella Catheter In Place Musculoskeletal Extremities Upper Extremities Deltoid Bicep Tricep HI W. Ext Right Left Lower Extremeties Ilio Quad Plantar Dorsi EHL Right Left Musculoskeletal Remarks Moves all extremities much less on sedation, but no Babinski bilaterally Extremities Edema: SCDs Objective Labs Laboratory Tests 10/12/16 11:14 10/12/16 17:19 10/12/16 22:45 10/13/16 04:50 Laboratory Tests Test 10/12/16 10/12/16 10/12/16 10/13/16 11:14 17:19 22:45 04:50 Sodium Level 140 MEQ/L 145 MEQ/L 143 MEQ/L 144 MEQ/L Potassium Level 3.6 MEQ/L Chloride Level 110 MEQ/L Carbon Dioxide Level 27.7 MEQ/L Anion Gap 6 MEQ/L Blood Urea Nitrogen 17 MG/DL Creatinine 0.88 MG/DL Estimat Glomerular Filtration 89 ML/MIN Rate Random Glucose 130 MG/DL Calcium Level 7.9 MG/DL Phosphorus Level 2.1 MG/DL Magnesium Level 2.1 MG/DL Imaging Remarks Last Impressions Chest X-Ray 10/13/16 0600 Signed Impressions: Service Date/Time: Thursday, October 13, 2016 04:18 - CONCLUSION: Minimal right base atelectasis or consolidation. Red Joshua MD Neck CTA 10/12/16 0000 Signed Impressions: Service Date/Time: Wednesday, October 12, 2016 09:27 - CONCLUSION: Mild atherosclerotic changes in the proximal portions of both internal carotid arteries but no significant stenosis. Dez Petersen MD Head CTA 10/12/16 0000 Signed Impressions: Service Date/Time: Wednesday, October 12, 2016 09:27 - CONCLUSION: No evidence of acute vascular injury eRd Hoffman MD Head CT 10/11/161999 Signed Impressions: Service Date/Time: Tuesday, October 11, 2016 22:04 - CONCLUSION: Much worse in the interim. There is increased and extensive subdural and subarachnoid blood as above. Multifocal parenchymal hemorrhage now present of both frontal and temporal lobes, especially the right frontal lobe.. There is about 9 mm of leftward midline shift. 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 MD Pelvis X-Ray 10/11/163 Signed Impressions: Service Date/Time: Tuesday, October 11, 2016 12:02 - CONCLUSION: Satisfactory trauma pelvis appearance. Red Hoffman MD Chest CT 10/11/163 Signed Impressions: Service Date/Time: Tuesday, October 11, 2016 12:19 - CONCLUSION: Negative for acute traumatic injury. There is no pneumothorax. Davis Nolasco MD FACR Cervical Spine CT 10/11/161212 Signed Impressions: Service Date/Time: Tuesday, October 11, 2016 12:19 - CONCLUSION: Occipital skull fracture. No evidence of acute traumatic injury in the cervical spine Red Hoffman MD Abdomen/Pelvis CT 10/11/161212 Signed Impressions: Service Date/Time: Tuesday, October 11, 2016 12:19 - CONCLUSION: Negative CT scan of the abdomen and pelvis for acute traumatic injury. Davis Nolasco MD FACR Assessment & Plan Diagnosis: (1) Subdural hemorrhage following injury Plan: 10/12/16 Contre- coup right SDH about 6mm associated with multiple bifrontal and bi temporal contusions and SAH, stable radiologically over 24 hrs. Skull base injury is suspected from the sphenoid air/fluid level but no dissection is seen on the CTA of the head and neck. 10/13/16 Very tremoulous, ongoing withdrawal metabolic reaction, no new pupillary change. Plan follow up CT in the am. (2) Fracture of occipital bone of skull with loss of consciousness Plan: Stable no new extra axial collection, small left occipital bleed has not changed overnight. (3) Encephalopathy acute Plan: Encephalopathy from ETOH withdrawal as well as head injury, will support metabolically and keep SBP 120-140. Baseline EEG was done yesterday. Some alpha and beta activity was seen, no clear epileptiform activity. Jerome Sosa Oct 13, 2016 10:32
[2016-10-13] MEDS: hydrALAZINE HCL 20 MG/ML VIAL IV PUSH PRN (10:51)
--- NOTE | 2016-10-13 10:58 | HHI.CCPN ---
Subjective Remarks/Hospital Course 10/11: Elderly male who was brought in as a trauma alert after he fell 10 feet from a ladder. GCS 6 initially at the scene subsequently improved to 11 on arrival in the ER. Patient was evaluated by trauma team and subsequently underwent imaging studies and transferred to the ICU. Critical care consult was requested by Dr. Menezes. Patient was initially on a nonrebreather facemask however by the time I saw him he had been switched to nasal cannula and did not appear to be in any acute distress. Imaging studies revealed an occipital skull fracture, subdural and subarachnoid blood. Patient was awake and alert at the time of evaluation and following commands and moving all 4 extremities. He could not hear and had some speech difficulty at the time of my evaluation with difficulty in communication though was following commands appropriately. C spine cleared by Neurosurgery at the time of my evaluation. 10/12: Patient developed worsening agitation despite Precedex last evening. He was started on Ativan as his gives history that he drinks 12 beers a day and if he does not drink has a tendency to go into withdrawal very quickly. Patient was subsequently intubated and placed on mechanical ventilation, his head CT from last evening shows worsening bilateral subdural and subarachnoid hemorrhages, right temporoparietal subdural hemorrhage with 9 mm leftward midline shift. He was started on 3% saline. Currently sedated with Versed/ fentanyl/propofol. 10/13: Remains sedated, orally intubated on mechanical ventilation. On Versed/ fentanyl/propofol drips. Gets agitated on attempting to cut down on propofol which is currently at 30 mics per minute, Versed 10 mg/h, fentanyl 150 g per hour. Objective Vital Signs Date Time Temp Pulse Resp B/P Pulse Ox O2 Delivery O2 Flow Rate FiO2 10/13/16 10:00 72 10/13/16 09:53 96 40 10/13/16 08:00 98.8 23 138/60 10/13/16 07:00 Mechanical Ventilator 10/11/16 20:07 6.00 Intake and Output 10/12/16 10/12/16 10/13/16 08:00 16:00 00:00 Intake Total 1319 ml 1158 ml Output Total 350 ml 400 ml Balance 969 ml 758 ml Result Diagram: 10/13/16 0450 10/13/16 0450 Other Results Laboratory Tests Test 10/12/16 10/12/16 10/12/16 2/21/17 11:14 17:19 18:06 22:35 Sodium Level 140 MEQ/L 145 MEQ/L Blood Gas Puncture Site RT RADIAL DIANA Blood Gas Patient Temperature 98.6 98.6 Blood Gas HCO3 27 mmol/L 25 mmol/L Blood Gas Base Excess 1.9 mmol/L 1.5 mmol/L Blood Gas Oxygen Saturation 92 % 94 % Arterial Blood pH 7.38 7.44 Arterial Blood Partial 46 mmHg 38 mmHg Pressure CO2 Arterial Blood Partial 72 mmHg 79 mmHg Pressure O2 Arterial Blood Oxygen Content 18.6 Vol % 18.0 Vol % Arterial Blood 0.9 % 1.0 % Carboxyhemoglobin Arterial Blood Methemoglobin 0.8 % 0.8 % Blood Gas Hemoglobin 14.4 G/DL 13.6 G/DL Oxygen Delivery Device VENTILATOR Blood Gas Ventilator Setting PRVC/AC Blood Gas Inspired Oxygen 50 % 50 % Test 10/12/16 10/13/16 10/13/16 22:45 04:44 04:50 Sodium Level 143 MEQ/L 144 MEQ/L Blood Gas Puncture Site DIANA Blood Gas Patient Temperature 98.6 Blood Gas HCO3 25 mmol/L Blood Gas Base Excess 1.1 mmol/L Blood Gas Oxygen Saturation 93 % Arterial Blood pH 7.43 Arterial Blood Partial 39 mmHg Pressure CO2 Arterial Blood Partial 79 mmHg Pressure O2 Arterial Blood Oxygen Content 17.5 Vol % Arterial Blood 0.9 % Carboxyhemoglobin Arterial Blood Methemoglobin 0.9 % Blood Gas Hemoglobin 13.3 G/DL Blood Gas Ventilator Setting Blood Gas Inspired Oxygen 50 % White Blood Count 15.6 TH/MM3 Red Blood Count 3.95 MIL/MM3 Hemoglobin 13.0 GM/DL Hematocrit 38.7 % Mean Corpuscular Volume 98.0 FL Mean Corpuscular Hemoglobin 32.9 PG Mean Corpuscular Hemoglobin 33.5 % Concent Red Cell Distribution Width 14.6 % Platelet Count 200 TH/MM3 Mean Platelet Volume 7.4 FL Neutrophils (%) (Auto) 78.7 % Lymphocytes (%) (Auto) 5.9 % Monocytes (%) (Auto) 15.0 % Eosinophils (%) (Auto) 0.0 % Basophils (%) (Auto) 0.4 % Neutrophils # (Auto) 12.3 TH/MM3 Lymphocytes # (Auto) 0.9 TH/MM3 Monocytes # (Auto) 2.3 TH/MM3 Eosinophils # (Auto) 0.0 TH/MM3 Basophils # (Auto) 0.1 TH/MM3 CBC Comment AUTO DIFF Differential Total Cells 100 Counted Neutrophils % (Manual) 85 % Lymphocytes % 5 % Monocytes % 10 % Neutrophils # (Manual) 13.3 TH/MM3 Differential Comment FINAL DIFF MANUAL Platelet Estimate NORMAL Platelet Morphology Comment NORMAL Red Cell Morphology Comment NORMAL Potassium Level 3.6 MEQ/L Chloride Level 110 MEQ/L Carbon Dioxide Level 27.7 MEQ/L Anion Gap 6 MEQ/L Blood Urea Nitrogen 17 MG/DL Creatinine 0.88 MG/DL Estimat Glomerular Filtration 89 ML/MIN Rate Random Glucose 130 MG/DL Calcium Level 7.9 MG/DL Phosphorus Level 2.1 MG/DL Magnesium Level 2.1 MG/DL Imaging Last 24 hours Impressions Chest X-Ray 10/13/16 06 Signed Impressions: Service Date/Time: Thursday, October 13, 2016 04:18 - CONCLUSION: Minimal right base atelectasis or consolidation. Red Joshua MD Last Impressions Chest X-Ray 10/12/16 06 Signed Impressions: Service Date/Time: Wednesday, October 12, 2016 05:11 - CONCLUSION: Minimal increased density at the bases representing minimal atelectasis or consolidation. Red Joshua MD Head CT 10/11/161999 Signed Impressions: Service Date/Time: Tuesday, October 11, 2016 22:04 - CONCLUSION: Much worse in the interim. There is increased and extensive subdural and subarachnoid blood as above. Multifocal parenchymal hemorrhage now present of both frontal and temporal lobes, especially the right frontal lobe.. There is about 9 mm of leftward midline shift. 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 MD Pelvis X-Ray 10/11/161212 Signed Impressions: Service Date/Time: Tuesday, October 11, 2016 12:02 - CONCLUSION: Satisfactory trauma pelvis appearance. Red Hoffman MD Chest CT 10/11/16 121 Signed Impressions: Service Date/Time: Tuesday, October 11, 2016 12:19 - CONCLUSION: Negative for acute traumatic injury. There is no pneumothorax. Davis Nolasco MD FACR Cervical Spine CT 10/11/16 121 Signed Impressions: Service Date/Time: Tuesday, October 11, 2016 12:19 - CONCLUSION: Occipital skull fracture. No evidence of acute traumatic injury in the cervical spine Red Hoffman MD Abdomen/Pelvis CT 10/11/16 1213 Signed Impressions: Service Date/Time: Tuesday, October 11, 2016 12:19 - CONCLUSION: Negative CT scan of the abdomen and pelvis for acute traumatic injury. Davis Nolasco MD FACR Objective Remarks HEENT/Neuro: No pallor or icterus, tongue moist, AZUCENA, Awake alert oriented 3 , cannot hear currently, speech difficulty noted with inability to speak except few words. moving all 4 extremities Neck: No JVD Chest/pulmonary: CTA bilaterally Cardiovascular: S1-S2 regular no gallop or murmur GI/abdomen: Soft, nontender, bowel sounds present Extremities: Warm bilaterally, no edema Urinary Catheter: Yes Assessment to: Continue Vascular Central Line Catheter: Yes Assessment to: Continue Date of Insertion: Oct 11, 2016 Line: Central Venous Catheter Location: Subclavian A/P Assessment and Plan Elderly male presenting as trauma alert with: Encephalopathy Occipital skull fracture TBI with bifrontal contusions, bifrontal, right temporoparietal subdural hemorrhage, subarachnoid hemorrhage Hearing loss History of alcohol abuse Suspected alcohol withdrawal Suspected COPD Acute respiratory failure requiring mechanical ventilation Plan: Neuro: Follow neuro checks, neurosurgery consulted and following. Repeat head CT per neurosurgery to follow up on TBI. On 3% saline, follow serial sodiums. Seizure prophylaxis with Keppra. Ativan/thiamine/folate acid for alcohol withdrawal. On Versed/fentanyl gtt. for sedation/analgesia. Titrate off propofol if tolerated. I d/w with Dr. Layne today, plans to repeat head CT tomorrow. Neurosurgery to decide ICP monitor placement versus neurosurgery intervention if needed. Cardiovascular: IV hydration, watch for hypotension. Labetalol/hydralazine when necessary for hypertension. Nicardipine drip if needed for hypertension. Pulmonary: Continue mechanical ventilation, vent bundle, Bronchodilators. Maintain end-tidal CO2 30-35. Started on Solu-Medrol on 10/11 for significant COPD/respiratory failure. GI/liver: Start tube feeds and advanced to goal as tolerated Renal/: IV hydration, strict intake output, monitor and replete electrolytes, follow BUN/creatinine. Estrella catheterization. ID: Antibiotic prophylaxis per trauma team Endocrine: Watch for hyperglycemia, SSI for glycemic control if needed Heme: Follow CBC Prophylaxis: PPI/SCDs. No heparin or Lovenox in view of TBI till cleared by Neurosurgery D/W Dr. Hadley, RESEARCH ASSOCIATE QUALITY CONTROL QC/ Trauma DEVELOPER EVANGELIST Condition critical Time spent on critical care excluding procedures 40 minutes Eamon Perdue MD Oct 13, 2016 10:57
[2016-10-13] MEDS: PANTOPRAZOLE SODIUM 40 MG VIAL IVP SCH (13:04)
--- NOTE | 2016-10-13 13:53 | HHI.PR ---
Neuropsych Emotional Emotional: UnabletoAssess: Emotional, Anxious/Fearful, Depressed/Sad, Hostile/ Resentful, Irritable/Angry/Frustrate, Labile, Constricted/Blunted Behavior Behavior: Unable to Asses: Behavior, Coping/Acceptance, Cooperative w/ Treatment, Motivation, Frustration Tolerance/[place], Impulsive/Agitated, Suicidal/ Homicidal Risk Cognitive Cognitive: Unable to Asses: Cognitive, Attention/Concentration, Confused/ Orientation, Insight/Awareness, Judgement/Problem-Solving, Memory Psychosocial Psychosocial: Moderate: Psychosocial, Family/Other Adjustment, Realistic Expectation, Unable to Asses: Self-Esteem/Confidence Progress Notes/Response to Tx Contents of Sessions: Level of Consciousness Time with Patient: 15 minutes Premorbid psychological status Premorbid Cognitive, Emotional and Behavioral Status: Deferred. 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 The patient has no known psychiatric difficulties. However, substance abuse history is significant for alcohol dependence and tobacco dependence. Behavioral Reactions of Patient and Family/Support System: Tenuous. The patients family has a limited understanding of the complexities of this patient 's brain injury, and the lifestyle barriers that prevent an optimal recovery. They are expected to have ongoing issues of adjustment given the nature of the injury, and this aspect of recovery will require ongoing monitoring. Emotional/Behavioral Status of Patient and Family/Support System: Tenuous. Pertinent issues, if appropriate to this patients clinical care, are described in detail above. Maximizing acute care outcome It is recommended that the patient be monitored for emergent behavioral impulsivity as the medical condition evolves. This patients neuropathological challenges may limit their rehabilitation potential going forward, and these challenges will require specialized therapeutic skills to maximize outcome. Additionally, the patients family is experiencing ongoing issues of adjustment given the traumatic nature of the injury, and they [will need / may benefit] from ongoing psychological assistance. Anticipated Problems Ongoing areas of concern could include behavioral impulsivity, lack of insight and judgment, which is expected to improve with time and treatment, provided he moves past this stage of recovery. Presently, the patient is not following commands. His long duration alcohol dependence and tobacco dependence, which has led to global cerebral atrophy, will serve as a double barrier to his recovery from this injury. Treatment Plan This clinician will continue to follow with you throughout the course of this patients rehabilitation treatment, and I will be available to meet with the patients family/support system to facilitate their understanding and the ongoing care of their family member. The goals of neuropsychological intervention shall be both educational and supportive to the family/support system as is deemed clinically appropriate. [facility] Level: I:No response-total assistance Diagnosis: (1) Major neurocognitive disorder as late effect of traumatic brain injury with behavioral disturbance Status: Acute (2) Alcohol dependence Status: Acute Progress Note Narrative Ongoing follow-up of patient who was seen within the context of daily trauma rounding. Discussed with the attending physician pharmacological impediments to the patient's neurocognitive recovery, with suggestions made. There has been no significant neurobehavioral change in this patient's status compared to yesterday. I will continue to follow with you. Kermit Hughes PhD Oct 13, 2016 1:52 pm
--- NOTE | 2016-10-13 14:17 | PD.CONS ---
HPI Service Neurosurgery Consult Requested By Trauma surgeon Dr Dave Reason for Consult SDH/ contusions Primary Care Physician Non-Staff History of Present Illness this is a 56 year old male who was brought to [place] as a trauma alert after he fell 10 feet from a ladder. His initial GCS was 6 at the scene, However subsequently improved to 11 on arrival in the ER. He was evaluated by the trauma team and subsequently underwent CT studies and transferred to the SICU. Critical care consulted. He was initially on a nonrebreather facemask and awake. Initial CT of the brain showed an occipital skull fracture, subdural and subarachnoid hemorrhage. Apparently subsequently deteriorated requiring endotracheal intubation and mechanical ventilation. He had a CT of the brain 10/11 which showed increased and extensive subdural and subarachnoid blood , ultifocal parenchymal hemorrhage in both frontal and temporal lobes, with 9 mm of leftward midline shift Neurosurgical consultation was requested. Review of Systems ROS Limitations: Clinical Condition, Intubated, Altered Mental Status Past Family Social History Allergies: Coded Allergies: UNOBTAINABLE (Unverified , 10/11/16) Past Medical History Unavailable Past Surgical History Unavailable Reported Medications Unavailable Active Ordered Medications Current Medications Cefazolin Sodium/ Dextrose (Ancef 2 Gm Premix) 50 ml @ As Directed STK-MED ONCE .ROUTE ; Start 10/11/16 at 12:16; Stop 10/11/16 at 12:17; Status DC Iohexol (Omnipaque 350 Inj) 100 ml STK-MED ONCE IV Last administered on t 12:28; Start 10/11/16 at 12:28; Stop 10/11/16 at 12:29; Status DC Iohexol 100 ml 100 ml STK-MED ONCE IV ; Start 10/11/16 at 12:42; Stop 10/11/16 at 12:43; Status Cancel Sodium Chloride (NS 1000 ml Inj) 1,000 ml @ 70 mls/hr [id number] IV Last administered on 10/13/16t 04:56; Start 10/11/16 at 13:00 IV Flush (NS Flush) 2 ml UNSCH PRN IVF FLUSH AFTER USING IV ACCESS; Start 10/11 at 13:00 Enalaprilat (Vasotec Inj) 1.25 mg Q8H PRN IV SBP>180, DBP>95; Start 10/11/16 at 13:00 Ondansetron HCl (Zofran Inj) 4 mg Q6H PRN IV NAUSEA OR VOMITING; Start at 13:00 Pantoprazole Sodium (Protonix Inj) 40 mg Q24H IVP Last administered on 13:04; Start 10/11/16 at 13:00 Docusate Sodium (Colace) 100 mg BID PO Last administered on 10/13/16 08:01; Start 10/11/16 at 21:00 Magnesium Hydroxide (Milk Of Magnazul Liq) 30 ml Q6H PRN PO CONSTIPATION; Start 10/11/16 at 13:00; Stop 10/12/16 at 09:00; Status DC Miscellaneous Information 1 [id number] Last administered on 10/11/16 13:00; Start 10/11/16 at 13:00 Chlorhexidine Gluconate (Chlorhexidine 2% Cloth) 3 pack Taper DAILY@04 TOP Last administered on 10/13/16 03:55; Start 10/12/16 at 04:00; Stop 10/08/17 at 03:59 Chlorhexidine Gluconate (Chlorhexidine 2% Cloth) 3 pack UNSCH PRN TOP HYGIENIC CARE; Start 10/11/16 at 13:00 Hydralazine HCl (Apresoline Inj) 20 mg STK-MED ONCE .ROUTE Last administered on 10/11/16 13:01; Start 10/11/16 at 13:01; Stop 10/11/16 at 13:02; Status DC Hydralazine HCl (Apresoline Inj) 10 mg Q2H PRN IV PUSH SBP greater than 150mm Hg Last administered on 10/13/16 10:51; Start 10/11/16 at 13:30 Labetalol HCl 10 mg 10 mg Q4H PRN IV PUSH SBP greater than 160mm Hg; Start at 13:30 Nicardipine HCl/ Sodium Chloride (Cardene Inj/NS 250 ml Inj) 260 ml @ 0 mls/hr TITRATE IV ; Start 10/11/16 at 13:30; Stop 10/13/16 at 09:55; Status DC Albuterol/ Ipratropium (Duoneb Neb) 1 ampule Q4HR NEB NEB Last administered on 10/13/16 11:03; Start 10/11/16 at 13:45 Albuterol/ Ipratropium 1 ampule 1 ampule Q2HR NEB PRN NEB wheezing, shortness of breath; Start 10/11/16 at 13:45 Dexmedetomidine HCl (Precedex Inj) 50 ml @ 0 mls/hr TITRATE IV Last administered on 10/11/16 16:53; Start 10/11/16 at 16:30; Stop 10/12/16 at 11:11 ; Status DC Methylprednisolone Sodium Succinate 80 mg 80 mg Q12H IV PUSH Last administered on 10/13/16 05:01; Start 10/11/16 at 18:00 Multivitamins 10 ml/Folic Acid 1 mg/Sodium Chloride 510.2 ml @ 125 mls/hr Q24H IV Last administered on 10/12/16 19:21; Start 10/11/16 at 20:00; Stop at 19:59 Thiamine HCl/ Sodium Chloride (Thiamine Inj/NS Inj) 101 ml @ 100 mls/hr Q24H IV Last administered on 10/12/16 19:29; Start 10/11/16 at 20:00 Lorazepam (Ativan Inj) 2 mg Q4HR PRN IV PUSH CIWA 11-14 Last administered on 19:43; Start 10/11/16 at 17:30 Lorazepam (Ativan Inj) 2 mg Q2HR PRN IV PUSH CIWA 15-20; Start 10/11/16 at 17: 30 Haloperidol Lactate (Haldol Inj) 2 mg Q15M PRN IM SEE LABEL COMMENTS Last administered on 10/11/16 18:05; Start 10/11/16 at 17:30; Stop 10/13/16 at 09:56 ; Status DC Thiamine HCl 100 mg 100 mg DAILY IM ; Start 10/15/16 at 09:00; Status UNV Sodium Acetate/ Sodium Chloride/ Sodium Chloride (Sodium Acetate Inj/Sodium Chloride 23.4% Inj/NS 1000 ml Inj) 1,067 ml @ 20 mls/hr Q24H IV ; Start at 20:00; Stop 10/12/16 at 00:48; Status DC Mannitol 25 gm 25 gm ONCE ONCE IV Last administered on 10/11/16 19:00; Start 10/11/16 at 19:00; Stop 10/11/16 at 19:02; Status DC Levetriacetam/ Sodium Chloride (Keppra Inj/NS Inj) 105 ml @ 420 mls/hr Q12HR IV Last administered on 10/13/16 08:01; Start 10/11/16 at 21:00 Lorazepam (Ativan Inj) 4 mg ONCE ONCE IV PUSH Last administered on 10/11/16 19:00; Start 10/11/16 at 19:00; Stop 10/11/16 at 19:02; Status DC Etomidate (Amidate Inj) 20 mg ONCE ONCE IV PUSH ; Start 10/11/16 at 20:45; Stop 10/11/16 at 20:46; Status DC Rocuronium [place] (Zemuron Inj) 50 mg BOLUS ONCE IV Last administered on 10/11 20:45; Start 10/11/16 at 20:45; Stop 10/11/16 at 20:46; Status DC Midazolam HCl (Versed Inj) 5 mg ONCE ONCE IV Last administered on 10/11/16 20 :45; Start 10/11/16 at 20:45; Stop 10/11/16 at 20:46; Status DC Chlorhexidine Gluconate 15 ml 15 ml BID@08,20 MT Last administered on 08:00; Start 10/12/16 at 08:00 Propofol 100 ml @ 0 mls/hr TITRATE IV Last administered on 10/13/16 05:21; Start 10/11/16 at 20:45 Midazolam HCl 100 ml @ 0 mls/hr TITRATE IV Last administered on 10/13/16 10:29 ; Start 10/11/16 at 20:45 Sodium Chloride (Sodium Chloride 3% Inj) 500 ml @ 30 mls/hr DAILY IV Last administered on 10/13/16 05:01; Start 10/11/16 at 20:45; Stop 10/16/16 at 20:44 Thiamine HCl (Thiamine Inj) 100 mg DAILY IM ; Start 10/12/16 at 09:00; Status UNV Fentanyl Citrate (fentaNYL INJ) 100 mcg [facility] ONCE .ROUTE Last administered on 10/11/16 20:53; Start 10/11/16 at 20:53; Stop 10/11/16 at 20:54; Status DC Epinephrine HCl (EPINEPHrine (1:10,000) INJ) 1 mg STK-MED ONCE .ROUTE ; Start at 21:33; Stop 10/11/16 at 21:34; Status DC Lidocaine HCl (Xylocaine 2% Inj) 100 mg STK-MED ONCE .ROUTE ; Start 10/11/16 at 21:33; Stop 10/11/16 at 21:34; Status DC Atropine Sulfate 1 mg 1 mg STK-MED ONCE .ROUTE ; Start 10/11/16 at 21:33; Stop 10/11/16 at 21:34; Status DC Fentanyl Citrate (fentaNYL DRIP) 250 ml @ 0 mls/hr TITRATE IV Last administered on 10/12/16 19:22; Start 10/12/16 at 05:00 Epinephrine HCl (EPINEPHrine (1:10,000) INJ) 1 mg STK-MED ONCE .ROUTE ; Start at 08:47; Stop 10/12/16 at 08:48; Status DC Atropine Sulfate (Atropine Inj) 1 mg STK-MED ONCE .ROUTE ; Start 10/12/16 at 08: 47; Stop 10/12/16 at 08:48; Status DC Magnesium Hydroxide (Milk Of Magnesia Liq) 30 ml DAILY PO Last administered on 10/13/16 08:30; Start 10/12/16 at 10:00 Iohexol (Omnipaque 350 Inj) 100 ml STK-MED ONCE IV Last administered on 09:43; Start 10/12/16 at 09:43; Stop 10/12/16 at 09:44; Status DC Family History Unavailable Social History Unavailable Physical Exam Vital Signs Vital Signs Date Time Temp Pulse Resp B/P Pulse Ox O2 Delivery O2 Flow Rate FiO2 10/13/16 13:18 98 40 10/13/16 12:00 99.9 95 19 147/67 95 10/13/16 12:00 95 10/13/16 11:04 97 40 10/13/16 10:00 72 10/13/16 09:53 96 40 10/13/16 08:18 99 40 10/13/16 08:18 100 40 10/13/16 08:00 98.8 64 23 138/60 99 10/13/16 08:00 64 10/13/16 07:00 Mechanical Ventilator 98 10/13/16 06:00 72 10/13/16 04:24 100 50 10/13/16 04:00 99.5 72 22 113/60 99 10/13/16 04:00 72 10/13/16 02:00 76 10/13/16 00:01 99 50 10/13/16 00:00 83 10/13/16 00:00 99.1 83 24 122/62 99 10/12/16 22:00 60 10/12/16 21:05 97 50 10/12/16 20:00 77 10/12/16 20:00 101.3 87 24 133/67 99 10/12/16 19:00 Mechanical Ventilator 96 10/12/16 18:00 88 10/12/16 16:54 94 50 10/12/16 16:00 98.4 56 16 105/63 99 10/12/16 16:00 56 Physical Exam The patient is intubated and sedated. Generalized tremors Cranial Nerves: Pupils equal, round, reactive to light. Eyes appear conjugated. There was no nystagmus, no papilledema. Face musculature appeared symmetrical at rest. Face sensation, olfaction, visual rosas, and hearing cannot be adequately assessed due to his neurological condition. The patient has a corneal reflex. He has a gag reflex. The sternocleidomastoid and trapezius are symmetrical. Cervical Spine: His neck is soft, supple, without nuchal rigidity. Motor: No response to pain Reflexes: Deep tendon reflexes are 1+ and symmetrical in the biceps, triceps, and brachioradialis, bilaterally, in the upper extremities. In the lower extremities, the patellar and ankles are 1+, bilaterally. Plantars silent response to plantar stimulation. There is no clonus Sensory: On examination there is no response to painful stimuli Cerebellar: Examination cannot be adequately assessed due to the patient's neurological condition. Laboratory Laboratory Tests Test 10/12/16 10/12/16 10/12/16 10/12/16 17:19 18:06 22:35 22:45 Sodium Level 145 143 Blood Gas Puncture Site RT RADIAL DIANA Blood Gas Patient Temperature 98.6 98.6 Blood Gas HCO3 27 25 Blood Gas Base Excess 1.9 1.5 Blood Gas Oxygen Saturation 92 94 Arterial Blood pH 7.38 7.44 Arterial Blood Partial 46 38 Pressure CO2 Arterial Blood Partial 72 79 Pressure O2 Arterial Blood Oxygen Content 18.6 18.0 Arterial Blood 0.9 1.0 Carboxyhemoglobin Arterial Blood Methemoglobin 0.8 0.8 Blood Gas Hemoglobin 14.4 13.6 Oxygen Delivery Device VENTILATOR Blood Gas Ventilator Setting PRVC/AC Blood Gas Inspired Oxygen 50 50 Test 10/13/16 10/13/16 10/13/16 04:44 04:50 12:45 Blood Gas Puncture Site DIANA Blood Gas Patient Temperature 98.6 Blood Gas HCO3 25 Blood Gas Base Excess 1.1 Blood Gas Oxygen Saturation 93 Arterial Blood pH 7.43 Arterial Blood Partial 39 Pressure CO2 Arterial Blood Partial 79 Pressure O2 Arterial Blood Oxygen Content 17.5 Arterial Blood 0.9 Carboxyhemoglobin Arterial Blood Methemoglobin 0.9 Blood Gas Hemoglobin 13.3 Blood Gas Ventilator Setting Blood Gas Inspired Oxygen 50 White Blood Count 15.6 Red Blood Count 3.95 Hemoglobin 13.0 Hematocrit 38.7 Mean Corpuscular Volume 98.0 Mean Corpuscular Hemoglobin 32.9 Mean Corpuscular Hemoglobin 33.5 Concent Red Cell Distribution Width 14.6 Platelet Count 200 Mean Platelet Volume 7.4 Neutrophils (%) (Auto) 78.7 Lymphocytes (%) (Auto) 5.9 Monocytes (%) (Auto) 15.0 Eosinophils (%) (Auto) 0.0 Basophils (%) (Auto) 0.4 Neutrophils # (Auto) 12.3 Lymphocytes # (Auto) 0.9 Monocytes # (Auto) 2.3 Eosinophils # (Auto) 0.0 Basophils # (Auto) 0.1 CBC Comment AUTO DIFF Differential Total Cells 100 Counted Neutrophils % (Manual) 85 Lymphocytes % 5 Monocytes % 10 Neutrophils # (Manual) 13.3 Differential Comment FINAL DIFF MANUAL Platelet Estimate NORMAL Platelet Morphology Comment NORMAL Red Cell Morphology Comment NORMAL Sodium Level 144 147 Potassium Level 3.6 Chloride Level 110 Carbon Dioxide Level 27.7 Anion Gap 6 Blood Urea Nitrogen 17 Creatinine 0.88 Estimat Glomerular Filtration 89 Rate Random Glucose 130 Calcium Level 7.9 Phosphorus Level 2.1 Magnesium Level 2.1 Result Diagram: 10/13/16 0450 10/13/16 1245 Imaging Last Impressions Chest X-Ray 10/13/16 0600 Signed Impressions: Service Date/Time: Thursday, October 13, 2016 04:18 - CONCLUSION: Minimal right base atelectasis or consolidation. Red Joshua MD Neck CTA 10/12/16 0000 Signed Impressions: Service Date/Time: Wednesday, October 12, 2016 09:27 - CONCLUSION: Mild atherosclerotic changes in the proximal portions of both internal carotid arteries but no significant stenosis. Dez Petersen MD Head CTA 10/12/16 0000 Signed Impressions: Service Date/Time: Wednesday, October 12, 2016 09:27 - CONCLUSION: No evidence of acute vascular injury Red Hoffman MD Head CT 10/11/161999 Signed Impressions: Service Date/Time: Tuesday, October 11, 2016 22:04 - CONCLUSION: Much worse in the interim. There . 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 MD Pelvis X-Ray 10/11/[id number] Signed Impressions: Service Date/Time: Tuesday, October 11, 2016 12:02 - CONCLUSION: Satisfactory trauma pelvis appearance. Red Hoffman MD Chest CT 10/11/161212 Signed Impressions: Service Date/Time: Tuesday, October 11, 2016 12:19 - CONCLUSION: Negative for acute traumatic injury. There is no pneumothorax. Davis Nolasco MD FACR Cervical Spine CT 10/11/161212 Signed Impressions: Service Date/Time: Tuesday, October 11, 2016 12:19 - CONCLUSION: Occipital skull fracture. No evidence of acute traumatic injury in the cervical spine Red Hoffman MD Abdomen/Pelvis CT 10/11/16 121 Signed Impressions: Service Date/Time: Tuesday, October 11, 2016 12:19 - CONCLUSION: Negative CT scan of the abdomen and pelvis for acute traumatic injury. Davis Nolasco MD FACR Attending Statement Neuro. I reviewed his clinical and radiological findings. Continue neuro checks in a serial fashion. He seems joi be going into alcohol withdrawal, and I am unable to obtain a reliable neurological examination. his latest CT brain was done on 10/11 which showed worsening hemorrhag and mass effect. I recommend a follow up CT of the brain and a follow up EEG. if his mass effect is getting worse, he could benefit by a surgical decompression. Osmotic therapy with mannitol or hypertonic fluids Skull fracture. Closed. non surgical treatment Respiratory. full mechanical ventilation on assist control mode of ventilation. pulmonary toilette, nasotracheal suction, and breathing treatments with nebulizers. PT and OT when his condition improves Nutrition. NPO Renal. monitor closely urine output, BUN and creatinine Endocrine. Monitor serial Acu checks and SSI as needed in detail ID monitor for signs of infection Protonix for stress ulcer prophylaxis Kadeem smith and SCD's for DVT prophylaxis Will be happy to assist dr rajan with her management Chetan Cruz MD Oct 13, 2016 14:17
[2016-10-13] MEDS ORDERED: ATROPINE SULFATE 1 MG/10 ML SYRINGE ONE (14:20)
[2016-10-13] MEDS ORDERED: EPINEPHrine HCL (1:10,000) 1 MG/10 ML SYRINGE ONE (14:20)
[2016-10-13] MEDS ORDERED: LIDOCAINE HCL 2% 100 MG/5 ML SYRINGE ONE (14:20)
--- NOTE | 2016-10-13 15:04 | RADRPT ---
EXAM DATE/TIME: 10/13/2016 14:49 [place] COMPARISON: CT BRAIN W/O CONTRAST, October 11, 2016, 22:04. INDICATIONS : Follow up hemorrhage. RADIATION DOSE: 48.79 CTDIvol (mGy) MEDICAL HISTORY : Cardiovascular disease. Hypertension. SURGICAL HISTORY : None. ENCOUNTER: Subsequent ACUITY: 4 - 6 days PAIN SCALE: Non-responsive LOCATION: cranial TECHNIQUE: Multiple contiguous axial images were obtained of the head. Using automated exposure control and adjustment of the mA and/or kV according to patient size, radiation dose was kept as low as reasonably achievable to obtain optimal diagnostic quality images. FINDINGS: Allowing for slight differences in angulation no significant interval change is appreci ated other than the leftward shift of midline is now for a 5 mm instead of 8.5 mm. Occipital fracture extending into the foramen is appreciated with bilateral subcentimeter hygromas fluid collections be tter appreciated on today's study on the left and on the right slight decrease in the hyperdensity an d replacement by CSF but maximal width being 5mm . Bilateral frontal and temporal contusions are stab le with hemorrhage and blood along the tentorium and interhemispheric fissure. CONCLUSION: The midline shift is slightly reduced from 8.5 now 5 mm as well as the extracerebral fluid collection on the right diminished from 8 to now 5 mm. Thin left hygromas fluid collection is a ppreciated. Remainder the study is stable. Eddie Sena MD on October 13, 2016 at 14:58 Board Certified Radiologist. This report was verified electronically.
[2016-10-13] MEDS: LABETALOL HCL 100 MG/20 ML VIAL IV PUSH PRN (15:17)
--- NOTE | 2016-10-13 16:50 | HHI.CCPN ---
Subjective Brief History Elderly male who was brought in as a trauma alert after he fell 10 feet from a ladder. GCS 6 initially at the scene subsequently improved to 11 on arrival in the ER. Patient was evaluated by trauma team and subsequently underwent imaging studies and transferred to the ICU. Imaging studies revealed an occipital skull fracture, subdural and subarachnoid blood. Patient was awake and alert at the time of evaluation and following commands and moving all 4 extremities. He could not hear and had some speech difficulty at the time of my evaluation with difficulty in communication though was following commands appropriately. C spine cleared by Neurosurgery at the time of my evaluation. Patient developed worsening agitation despite Precedex last evening. Since then patient had to be intubated ventilated and is currently on propofol fentanyl and Versed drips to keep him down When these are discontinued or less and patient starts biting on the to and becomes restless moves all [address] scan of the head reveals worsening subdural and subarachnoid hemorrhage and the midline shift of about 8 mm 24 Hour Review/Hospital Course Patient has worsened in last 24 hours Repeat CAT scan reveals worsening subdural bleeding over the right parieto- occipital area and [id number] shift of about 8 mm Patient is elderly and a heavy drinker and therefore has atrophy of the brain so there is some more space that allows for compartment pressure IE ICP to remain low We will discuss with neurosurgery about placing ICP monitor or even draining subdural hematoma at this time. Patient remains hyperventilated and on hypertonic saline nonetheless will require bolt placement to assess for ICP and the effectiveness of the therapy 10/13/2016 Patient neurologically unchanged Repeat CAT scan shows some decrease in subdural hematoma and slight decrease in shift yet still severe brain injury At the family's request a second opinion neurosurgery consult was placed and second neurosurgeon has evaluated the patient She will have a long-term recovery here and have discussed this at length with the family Patient may need tracheostomy and PEG tube placement as the part of the appropriate treatment Objective Vital Signs Date Time Temp Pulse Resp B/P Pulse Ox O2 Delivery O2 Flow Rate FiO2 10/13/16 16:00 99 40 10/13/16 12:00 99.9 95 19 147/67 10/13/16 07:00 Mechanical Ventilator 10/11/16 20:07 6.00 Intake and Output 10/12/16 10/12/16 10/13/16 08:00 16:00 00:00 Intake Total 1319 ml 1158 ml Output Total 350 ml 400 ml Balance 969 ml 758 ml Result Diagram: 10/13/16 0450 10/13/16 1245 Other Results Laboratory Tests Test 10/12/16 10/12/16 10/13/16 18:06 22:35 04:44 Blood Gas Puncture Site RT RADIAL DIANA ORTIZ Blood Gas Patient Temperature 98.6 98.6 98.6 Blood Gas HCO3 27 mmol/L 25 mmol/L 25 mmol/L (22-26) (22-26) (22-26) Blood Gas Base Excess 1.9 mmol/L 1.5 mmol/L 1.1 mmol/L (-2-2) (-2-2) (-2-2) Blood Gas Oxygen Saturation 92 % (90-100) 94 % (90-100) 93 % (90-100) Arterial Blood pH 7.38 7.44 7.43 (7.380-7.420) (7.380-7.420) (7.380-7.420) Arterial Blood Partial 46 mmHg (38-42) 38 mmHg (38-42) 39 mmHg (38-42) Pressure CO2 Arterial Blood Partial 72 mmHg 79 mmHg 79 mmHg Pressure O2 (61-120) (61-120) (61-120) Arterial Blood Oxygen Content 18.6 Vol % 18.0 Vol % 17.5 Vol % (12.0-20.0) (12.0-20.0) (12.0-20.0) Arterial Blood 0.9 % (0-4) 1.0 % (0-4) 0.9 % (0-4) Carboxyhemoglobin Arterial Blood Methemoglobin 0.8 % (0-2) 0.8 % (0-2) 0.9 % (0-2) Blood Gas Hemoglobin 14.4 G/DL 13.6 G/DL 13.3 G/DL (12.0-16.0) (12.0-16.0) (12.0-16.0) Oxygen Delivery Device VENTILATOR Blood Gas Ventilator Setting PRVC/AC Blood Gas Inspired Oxygen 50 % 50 % 50 % Imaging Last 24 hours Impressions Chest X-Ray 10/13/16 0600 Signed Impressions: Service Date/Time: Thursday, October 13, 2016 04:18 - CONCLUSION: Minimal right base atelectasis or consolidation. Red Joshua MD Head CT 10/13/16 0000 Signed Impressions: Service Date/Time: Thursday, October 13, 2016 14:49 - CONCLUSION: The midline shift is slightly reduced from 8.5 now 5 mm as well as the extracerebral fluid collection on the right diminished from 8 to now 5 mm. Thin left hygromas fluid collection is appreciated. Remainder the study is stable. 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 Patient sedated ventilated Repeat CAT scan shows a slight decrease in the subdural hematoma but still severe brain injury Discussed with neurosurgery regarding placement of a ventriculostomy versus a intraparenchymal cerebral pressure monitoring Hemodynamic/Cardiac Hemodynamically patient is stable and remains so Pulmonary/Respiratory Bilateral breath sounds on ventilatory support in assist control mode keeping the PCO2 livid than 40 mmHg Abdomen/GI Nutrition Abdomen is soft Vascular Central Line Catheter Date of Insertion: Oct 11, 2016 Line: Central Venous Catheter Location: Subclavian Assessment and Plan Attestation The exam, history, and the medical decision-making described in the above note were completed with the assistance of the mid-level provider. I reviewed and agree with the findings presented. I attest that I had a [id number] encounter with the patient on the same day, and personally performed and documented my assessment and findings in the medical record. Critical care time 40 minutes. Sherry Parikh MD Oct 13, 2016 16:50
--- NOTE | 2016-10-13 18:57 | PD.CONS ---
HPI Service Rehabilitation Medicine Consult Requested By [facility] trauma service Reason for Consult Comprehensive rehabilitation evaluation. Primary Care Physician Non-Staff History of Present Illness Ian Nixon is a 56-year-old male admitted [facility] 10/11/16 after fall from a ladder approximately 10 feet. Glascow coma scale was 6 initially and 11 in the emergency department. Head CT showed subdural hematoma, subarachnoid hemorrhage, parenchymal contusions on the undersurface of bilateral frontal lobes and occipital skull fracture. He was subsequently intubated and sedated. Pelvic x-rays and abdominal/pelvic CT negative for fracture. CT the cervical spine showed occipital fracture. Neurosurgery has been consulted and follow-up CT and EEG is recommended. Review of Systems ROS Limitations: Intubated, Altered Mental Status Past Family Social History Allergies: Coded Allergies: UNOBTAINABLE (Unverified , 10/11/16) Past Medical History Unable to obtain Past Surgical History Unable to obtain Current Medications Current Medications Medications (Trade) Dose Ordered Sig/Jony Route Start Time Stop Time Status Last Admin (NS 1000 ml Inj) 1,000 ml @ 70 mls/hr [id number] IV 10/11/16 13:00 10/13/16 04:56 (NS Flush) 2 ml UNSCH PRN IVF 10/11/16 13:00 (Vasotec Inj) 1.25 mg Q8H PRN IV 10/11/16 13:00 (Zofran Inj) 4 mg Q6H PRN IV 10/11/16 13:00 (Protonix Inj) 40 mg Q24H IVP 10/11/16 13:00 10/13/16 13:04 (Colace) 100 mg BID PO 10/11/16 21:00 10/13/16 08:01 Miscellaneous Information 1 [id number] XX 10/11/16 13:00 10/11/16 13:00 (Chlorhexidine 2% Cloth) 3 pack Taper DAILY@04 TOP 10/12/16 04:00 10/08/17 03:59 10/13/16 03:55 (Chlorhexidine 2% Cloth) 3 pack UNSCH PRN TOP 10/11/16 13:00 (Apresoline Inj) 10 mg Q2H PRN IV PUSH 10/11/16 13:30 10/13/16 10:51 (Trandate Inj) 10 mg Q4H PRN IV PUSH 10/11/16 13:30 10/13/16 15:17 Methylprednisolone Sodium Succinate 80 mg 80 mg Q12H IV PUSH 10/11/16 18:00 10/13/16 05:01 Multivitamins 10 ml/Folic Acid 1 mg/Sodium Chloride 510.2 ml @ 125 mls/hr Q24H IV 10/11/16 20:00 10/16/16 19:59 10/12/16 19:21 (Thiamine Inj/NS Inj) 101 ml @ 100 mls/hr Q24H IV 10/11/16 20:00 10/12/16 19:29 (Ativan Inj) 2 mg Q4HR PRN IV PUSH 10/11/16 17:30 10/12/16 19:43 Lorazepam 2 mg 2 mg Q2HR PRN IV PUSH 10/11/16 17:30 (Keppra Inj/NS Inj) 105 ml @ 420 mls/hr Q12HR IV 10/11/16 21:00 10/13/16 08:01 Chlorhexidine Gluconate 15 ml 15 ml BID@08,20 MT 10/12/16 08:00 10/13/16 08:00 Propofol 100 ml @ 0 mls/hr TITRATE IV 10/11/16 20:45 10/13/16 14:23 Midazolam HCl 100 ml @ 0 mls/hr TITRATE IV 10/11/16 20:45 10/13/16 10:29 Sodium Chloride 500 ml @ 30 mls/hr DAILY IV 10/11/16 20:45 10/16/16 20:44 10/13/16 05:01 (fentaNYL DRIP) 250 ml @ 0 mls/hr TITRATE IV 10/12/16 05:00 10/12/16 19:22 (Milk Of Magnesia Liq) 30 ml DAILY PO 10/12/16 10:00 10/13/16 08:30 Family History Unable to obtain Social History Patient lives in [place], [place] and is noted to be . Exam I&O / VS 10/12/16 10/12/16 10/13/16 15:00 23:00 07:00 Intake Total 1319 ml 1158 ml 1407 ml Output Total 350 ml 400 ml 300 ml Balance 969 ml 758 ml 1107 ml Intake Oral 0 ml IV Total 1259 ml 1158 ml 1407 ml Other 60 ml 0 ml 0 ml Output Urine Total 350 ml 300 ml 300 ml Gastric Drainage Total 100 ml 0 ml # Bowel Movements 0 0 0 Vital Signs Date Time Temp Pulse Resp B/P Pulse Ox O2 Delivery O2 Flow Rate FiO2 10/13/16 16:00 99 40 10/13/16 15:14 100 100 10/13/16 13:18 98 40 10/13/16 12:00 99.9 95 19 147/67 95 10/13/16 12:00 95 10/13/16 11:04 97 40 10/13/16 10:00 72 10/13/16 09:53 96 40 10/13/16 08:18 99 40 10/13/16 08:18 100 40 10/13/16 08:00 98.8 64 23 138/60 99 10/13/16 08:00 64 10/13/16 07:00 Mechanical Ventilator 98 10/13/16 06:00 72 10/13/16 04:24 100 50 10/13/16 04:00 99.5 72 22 113/60 99 10/13/16 04:00 72 10/13/16 02:00 76 10/13/16 00:01 99 50 10/13/16 00:00 83 10/13/16 00:00 99.1 83 24 122/62 99 10/12/16 22:00 60 10/12/16 21:05 97 50 10/12/16 20:00 77 10/12/16 20:00 101.3 87 24 133/67 99 10/12/16 19:00 Mechanical Ventilator 96 General: Intubated (on vent), Sedated Respiratory: Lungs CTA, BS equal, Coarse breath sounds Gastrointestinal: Positive Bowel Sounds, Non-Distended Cardiovascular: Regular Rhythm Musculoskeletal: ROM (Grossly within normal limits) Orientation: unable to asses Self, unable to asses Place, unable to asses Time , unable to asses Situation Neurologic: Pupils (3 mm and reactive bilaterally), Other (Tremulous) Clonus: Positive Exam Comments Babinski equivocal bilaterally Assessment and Plan Diagnosis: (1) Traumatic brain injury Assessment 1. Fall from ladder with severe TBI including occipital fracture, SDH and SAH currently intubated and sedated for follow-up CT and EEG Plan 1. No formal rehab therapies as appropriate at this time. Will follow to initiate. 2. Appreciate Neuropsychology consult and followup. 3. Will follow while hospitalized and at discharge anticipating that patient will need ongoing rehabilitation care 4. Continue to turn and reposition to protect skin 5. Referral to [facility] Thank you for this consult. Tamanna Munson MD Oct 13, 2016 18:57
[2016-10-13] MEDS: MULTIVITAMIN INJ 10 ML, FOLIC ACID INJ 1 MG in SODIUM CHLORID 0.9% 500 ML INJ 500 ML IV SCH (19:57)
[2016-10-13] MEDS: THIAMINE INJ 100 MG in SODIUM CHLORIDE 0.9% INJ 100 ML IV SCH (19:57)
--- NOTE | 2016-10-13 22:31 | EKG ---
Date Performed: 10/12/2016 Time Performed: 13:51:46 PTAGE: 56 years EKG: Sinus rhythm NORMAL ECG NO PREVIOUS TRACING DOCTOR: Maryjane Pal Interpretating Date/Time 10/13/2016 22:29:36
[2016-10-13 22:33] LABS: BLOOD GAS BASE EXCESS 1.2 mmol/L (-2-2); BLOOD GAS CARBOXYHEMOGLOBIN 0.9 % (0-4); BLOOD GAS HCO3 25 mmol/L (22-26); BLOOD GAS METHEMOGLOBIN 0.7 % (0-2); BLOOD GAS O2 HGB SATURATION 92 % (90-100); BLOOD GAS OXYGEN CONTENT 16.5 Vol % (12.0-20.0); BLOOD GAS PCO2 39 mmHg (38-42); BLOOD GAS PO2 72 mmHg (61-120); BLOOD GAS TOTAL HGB 12.7 G/DL (12.0-16.0); CRITICAL VALUE NO; DRAW SITE ART LINE; FIO2 40 %; OXYGEN DEVICE VENTILATOR; STAT NO; TEMP CORR TO 98.6; VENT SETTINGS PAVC/AC
[2016-10-14] VITALS (19 sets, daily range): BP systolic 125–158; BP diastolic 61–74; PULSE 75–102; RESP 24; TEMP 98.3–99.2; O2SAT 93–99
[2016-10-14] MEDS: RESP: ALBUTEROL 2.5 MG/IPRATROPIUM 0.5 MG NEB (SCH) NEB ×6 (00:39→19:48)
[2016-10-14] MEDS: PROPOFOL 1000 MG/100 ML INJ 100 ML IV SCH ×3 (02:22→19:41)
[2016-10-14] MEDS: CHLORHEXIDINE GLUCONATE 2 % 1 PACK (2 CLOTHS) TOP SCH (03:06)
[2016-10-14] MEDS: LABETALOL HCL 100 MG/20 ML VIAL IV PUSH PRN ×2 (04:34→17:32)
[2016-10-14 04:47] LABS: AUTOMATED NEUTROPHIL # 12.1 TH/MM3 (1.8-7.7); BASOPHIL % 0.2 % (0.0-2.0); HEMATOCRIT 38.4 % (39.0-51.0); LYMPH % 10.8 % (9.0-44.0); LYMPHOCYTE # 1.7 TH/MM3 (1.0-4.8); MEAN CELL VOLUME 98.3 FL (80.0-100.0); MEAN CORPUSCULAR HEMOGLOBIN 32.3 PG (27.0-34.0); MEAN CORPUSCULAR HGB CONC 32.9 % (32.0-36.0); MONO % 13.8 % (0.0-8.0); NEUT % 75.2 % (16.0-70.0); PLATELET COUNT 197 TH/MM3 (150-450); RED BLOOD COUNT 3.91 MIL/MM3 (4.50-5.90); WHITE BLOOD COUNT 16.1 TH/MM3 (4.0-11.0)
[2016-10-14 04:52] LABS: HEMO FLAGS AUTO DIFF
[2016-10-14] MEDS: methylPREDNISolone SOD SUCC 125 MG/2 ML VIAL IV PUSH SCH ×2 (05:07→17:37)
[2016-10-14 05:14] LABS: BICARBONATE 26.4 MEQ/L (21.0-32.0); POTASSIUM 3.7 MEQ/L (3.5-5.1)
[2016-10-14 05:27] LABS: BLOOD GAS BASE EXCESS 0.5 mmol/L (-2-2); BLOOD GAS CARBOXYHEMOGLOBIN 1.1 % (0-4); BLOOD GAS HCO3 24 mmol/L (22-26); BLOOD GAS METHEMOGLOBIN 0.8 % (0-2); BLOOD GAS O2 HGB SATURATION 91 % (90-100); BLOOD GAS OXYGEN CONTENT 16.1 Vol % (12.0-20.0); BLOOD GAS PCO2 36 mmHg (38-42); BLOOD GAS PO2 66 mmHg (61-120); BLOOD GAS TOTAL HGB 12.7 G/DL (12.0-16.0); CRITICAL VALUE NO; OXYGEN DEVICE VENTILATOR; TEMP CORR TO 98.6
[2016-10-14 05:30] LABS: DRAW SITE ART LINE; FIO2 40 %; STAT NO; VENT SETTINGS PRVC/AC
[2016-10-14 06:01] LABS: SCAN/DIFF AUTO DIFF CONFIRMED
[2016-10-14] MEDS: hydrALAZINE HCL 20 MG/ML VIAL IV PUSH PRN ×4 (06:10→23:36)
--- NOTE | 2016-10-14 06:26 | RADRPT ---
EXAM DATE/TIME: 10/14/2016 05:08 [facility] COMPARISON: CHEST SINGLE AP, October 13, 2016, 4:18. INDICATIONS : Shortness of breath MEDICAL HISTORY : Cardiovascular disease. Hypertension SURGICAL HISTORY : None. ENCOUNTER: Subsequent ACUITY: 4 - 6 days PAIN SCORE: Non-responsive. LOCATION: Bilateral chest FINDINGS: ET tube, NG tube, and left subclavian line are well placed. The heart size is normal. The lungs are c lear. CONCLUSION: No acute disease. Red Joshua MD on October 14, 2016 at 6:23 Board Certified Radiologist. This report was verified electronically.
[2016-10-14] MEDS: CHLORHEXIDINE 0.12% (ORAL KIT) 15 ML CUP MT SCH ×2 (08:00→19:43)
[2016-10-14] MEDS: MIDAZOLAM 100 MG/ML INJ 100 ML IV SCH (08:17)
[2016-10-14] MEDS: levETIRAcetam INJ 500 MG in SODIUM CHLORIDE 0.9% INJ 100 ML IV SCH ×2 (08:18→19:42)
[2016-10-14] MEDS: DOCUSATE SODIUM 100 MG CAP PO SCH ×2 (08:18→19:43)
[2016-10-14] MEDS: MAGNESIUM HYDROXIDE SUSP 30 ML CUP PO SCH (08:18)
[2016-10-14] MEDS: LACTULOSE SYRUP 20 GM/30 ML CUP PO SCH (10:20)
[2016-10-14] MEDS: SODIUM CHLOR 0.9% 1000 ML INJ 1,000 ML IV SCH ×2 (10:21→23:37)
--- NOTE | 2016-10-14 12:06 | HHI.PR ---
Neuropsych Progress Notes/Response to Tx Time with Patient: 15 minutes Premorbid psychological status Premorbid Cognitive, Emotional and Behavioral Status: Deferred. 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 The patient has no known psychiatric difficulties. However, substance abuse history is significant for alcohol dependence and tobacco dependence. Behavioral Reactions of Patient and Family/Support System: Tenuous. The patients family has a limited understanding of the complexities of this patient 's brain injury, and the lifestyle barriers that prevent an optimal recovery. They are expected to have ongoing issues of adjustment given the nature of the injury, and this aspect of recovery will require ongoing monitoring. Emotional/Behavioral Status of Patient and Family/Support System: Tenuous. Pertinent issues, if appropriate to this patients clinical care, are described in detail above. Maximizing acute care outcome It is recommended that the patient be monitored for emergent behavioral impulsivity as the medical condition evolves. This patients neuropathological challenges may limit their rehabilitation potential going forward, and these challenges will require specialized therapeutic skills to maximize outcome. Additionally, the patients family is experiencing ongoing issues of adjustment given the traumatic nature of the injury, and they [will need / may benefit] from ongoing psychological assistance. Anticipated Problems Ongoing areas of concern could include behavioral impulsivity, lack of insight and judgment, which is expected to improve with time and treatment, provided he moves past this stage of recovery. Presently, the patient is not following commands. His long duration alcohol dependence and tobacco dependence, which has led to global cerebral atrophy, will serve as a double barrier to his recovery from this injury. Treatment Plan This clinician will continue to follow with you throughout the course of this patients rehabilitation treatment, and I will be available to meet with the patients family/support system to facilitate their understanding and the ongoing care of their family member. The goals of neuropsychological intervention shall be both educational and supportive to the family/support system as is deemed clinically appropriate. [facility] Level: I:No response-total assistance Diagnosis: (1) Major neurocognitive disorder as late effect of traumatic brain injury with behavioral disturbance Status: Acute (2) Alcohol dependence Status: Acute Progress Note Narrative Ongoing follow-up of patient seen in trauma rounds. No significant neurobehavioral change. Patient appears to be suffering from alcohol withdrawals for which he is being pharmacologically treated. I will continue to follow. Kermit Hughes PhD Oct 14, 2016 12:06 pm
[2016-10-14] MEDS: PANTOPRAZOLE SODIUM 40 MG VIAL IVP SCH (13:28)
--- NOTE | 2016-10-14 15:08 | MG ---
cc: CORTEZ BIGGS M.D. Lab No: [id number] Date: 10/14/2016 Age: 56 Sex: M Race: DATE OF : [address] Cruz. Room 1317, intubated on Diprivan 20 mcg, Versed 5 mg, with photic stimulation Diprivan and Versed off at 11:25 noted a ventriculostomy at F4. EEG 10/12 showed poor study due to quite a bit of artifact, some beta frequency. He is a 56-year-old man who fell off a ladder. CPR was done. Ethanol level 140. EEG is done today for shivering. On Versed, Diprivan, Keppra, Solu-Medrol, Trandate. DESCRIPTION OF RECORD There is background slowing predominately of 2 Hz. Some artifact in the frontal leads and eyes were closed. No muscle artifact but overall delta frequency. Photic stimulation, there is some minimal driving response. EKG is artifactual, cannot be interpreted. IMPRESSION Abnormal EEG due to slowing, consistent with moderately severe encephalopathy, no evidence of any epileptiform features in this recording. Clinical correlation. MD RAFFAELE Green/YUMIKO /2:46 PM /2:58 PM
--- NOTE | 2016-10-14 15:41 | HHI.CCPN ---
Subjective Brief History Elderly male who was brought in as a trauma alert after he fell 10 feet from a ladder. GCS 6 initially at the scene subsequently improved to 11 on arrival in the ER. Patient was evaluated by trauma team and subsequently underwent imaging studies and transferred to the ICU. Imaging studies revealed an occipital skull fracture, subdural and subarachnoid blood. Patient was awake and alert at the time of evaluation and following commands and moving all 4 extremities. He could not hear and had some speech difficulty at the time of my evaluation with difficulty in communication though was following commands appropriately. C spine cleared by Neurosurgery at the time of my evaluation. Patient developed worsening agitation despite Precedex last evening. Since then patient had to be intubated ventilated and is currently on propofol fentanyl and Versed drips to keep him down When these are discontinued or less and patient starts biting on the to and becomes restless moves all [address] scan of the head reveals worsening subdural and subarachnoid hemorrhage and the midline shift of about 8 mm 24 Hour Review/Hospital Course Patient has worsened in last 24 hours Repeat CAT scan reveals worsening subdural bleeding over the right parieto- occipital area and [id number] shift of about 8 mm Patient is elderly and a heavy drinker and therefore has atrophy of the brain so there is some more space that allows for compartment pressure IE ICP to remain low We will discuss with neurosurgery about placing ICP monitor or even draining subdural hematoma at this time. Patient remains hyperventilated and on hypertonic saline nonetheless will require bolt placement to assess for ICP and the effectiveness of the therapy 10/13/2016 Patient neurologically unchanged Repeat CAT scan shows some decrease in subdural hematoma and slight decrease in shift yet still severe brain injury At the family's request a second opinion neurosurgery consult was placed and second neurosurgeon has evaluated the patient She will have a long-term recovery here and have discussed this at length with the family Patient may need tracheostomy and PEG tube placement as the part of the appropriate treatment 10/14/2016 Patient with a severe brain injury and subdural hematoma and intraparenchymal hemorrhage Underwent yesterday ventriculostomy placement ICP is within physiologic range at this time and the subdural hematoma size has somewhat decreased There is no change in the neurologic status over the last 24 hours Objective Vital Signs Date Time Temp Pulse Resp B/P Pulse Ox O2 Delivery O2 Flow Rate FiO2 10/14/16 14:00 101 10/14/16 12:00 98.3 24 145/61 94 10/14/16 12:00 40 10/14/16 07:00 Mechanical Ventilator 10/11/16 20:07 6.00 Intake and Output 10/13/16 10/13/16 10/14/16 08:00 16:00 00:00 Intake Total 1407 ml 1282 ml 959 ml Output Total 300 ml 425 ml 400 ml Balance 1107 ml 857 ml 559 ml Result Diagram: 10/14/16 0420 10/14/16 0420 Other Results Laboratory Tests Test 10/13/16 10/14/16 22:20 05:15 Blood Gas Puncture Site ART LINE ART LINE Blood Gas Patient Temperature 98.6 98.6 Blood Gas HCO3 25 mmol/L 24 mmol/L (22-26) (22-26) Blood Gas Base Excess 1.2 mmol/L 0.5 mmol/L (-2-2) (-2-2) Blood Gas Oxygen Saturation 92 % (90-100) 91 % (90-100) Arterial Blood pH 7.43 7.45 (7.380-7.420) (7.380-7.420) Arterial Blood Partial 39 mmHg (38-42) 36 mmHg (38-42) Pressure CO2 Arterial Blood Partial 72 mmHg 66 mmHg Pressure O2 (61-120) (61-120) Arterial Blood Oxygen Content 16.5 Vol % 16.1 Vol % (12.0-20.0) (12.0-20.0) Arterial Blood 0.9 % (0-4) 1.1 % (0-4) Carboxyhemoglobin Arterial Blood Methemoglobin 0.7 % (0-2) 0.8 % (0-2) Blood Gas Hemoglobin 12.7 G/DL 12.7 G/DL (12.0-16.0) (12.0-16.0) Oxygen Delivery Device VENTILATOR VENTILATOR Blood Gas Ventilator Setting PAVC/AC PRVC/AC Blood Gas Inspired Oxygen 40 % 40 % Imaging Last 24 hours Impressions Chest X-Ray 10/14/16 0600 Signed Impressions: Service Date/Time: September 05:08 - CONCLUSION: No acute disease. 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 No change in neurologic status Ventriculostomy placed yesterday reveals ICP in the physiologic range of about 9 -14 mmHg Hypertonic saline has been discontinued and patient remains within physiologic range of PCO2 on the ventilator With decreased sedation patient is trying to bite the endotracheal tube and starts moving all 4 extremities however does not follow any commands doesn't open eyes Hemodynamic/Cardiac Hemodynamically the patient remained stable and is off any pressors and matter fact is hypertensive at this time requiring additional antihypertensive therapy Pulmonary/Respiratory Bilateral breath sounds good inspiratory effort and improving PO2 FiO2 gradient Any decrease in respiratory length will result in an increasing PCO2 and this does however affect ICP values and the patient pushing them out of physiologic range therefore its imperative to keep PCO2 under 40 mmHg Abdomen/GI Nutrition Abdomen is soft enteral feedings have been started patient is tolerating those well Vascular Central Line Catheter Date of Insertion: Oct 11, 2016 Line: Central Venous Catheter Location: Subclavian Assessment and Plan Attestation The exam, history, and the medical decision-making described in the above note were completed with the assistance of the mid-level provider. I reviewed and agree with the findings presented. I attest that I had a [id number] encounter with the patient on the same day, and personally performed and documented my assessment and findings in the medical record. Critical care time 40 minutes. Sherry Parikh MD Oct 14, 2016 15:41
--- NOTE | 2016-10-14 16:11 | HHI.CCPN ---
Subjective Remarks/Hospital Course 10/11: Elderly male who was brought in as a trauma alert after he fell 10 feet from a ladder. GCS 6 initially at the scene subsequently improved to 11 on arrival in the ER. Patient was evaluated by trauma team and subsequently underwent imaging studies and transferred to the ICU. Critical care consult was requested by Dr. Menezes. Patient was initially on a nonrebreather facemask however by the time I saw him he had been switched to nasal cannula and did not appear to be in any acute distress. Imaging studies revealed an occipital skull fracture, subdural and subarachnoid blood. Patient was awake and alert at the time of evaluation and following commands and moving all 4 extremities. He could not hear and had some speech difficulty at the time of my evaluation with difficulty in communication though was following commands appropriately. C spine cleared by Neurosurgery at the time of my evaluation. 10/12: Patient developed worsening agitation despite Precedex last evening. He was started on Ativan as his gives history that he drinks 12 beers a day and if he does not drink has a tendency to go into withdrawal very quickly. Patient was subsequently intubated and placed on mechanical ventilation, his head CT from last evening shows worsening bilateral subdural and subarachnoid hemorrhages, right temporoparietal subdural hemorrhage with 9 mm leftward midline shift. He was started on 3% saline. Currently sedated with Versed/ fentanyl/propofol. 10/13: Remains sedated, orally intubated on mechanical ventilation. On Versed/ fentanyl/propofol drips. Gets agitated on attempting to cut down on propofol which is currently at 30 mics per minute, Versed 10 mg/h, fentanyl 150 g per hour. 10/14: ICPs still borderline, mid-teens. remains sedated. EVD placed yesterday. midline shift slightly improved after EVD placement. Objective Vital Signs Date Time Temp Pulse Resp B/P Pulse Ox O2 Delivery O2 Flow Rate FiO2 10/14/16 14:00 101 10/14/16 12:00 98.3 24 145/61 94 10/14/16 12:00 40 10/14/16 07:00 Mechanical Ventilator 10/11/16 20:07 6.00 Intake and Output 10/13/16 10/13/16 10/14/16 08:00 16:00 00:00 Intake Total 1407 ml 1282 ml 959 ml Output Total 300 ml 425 ml 400 ml Balance 1107 ml 857 ml 559 ml Result Diagram: 10/14/16 0420 10/14/16 0420 Other Results Laboratory Tests Test 10/13/16 10/14/16 22:20 05:15 Blood Gas Puncture Site ART LINE ART LINE Blood Gas Patient Temperature 98.6 98.6 Blood Gas HCO3 25 mmol/L 24 mmol/L (22-26) (22-26) Blood Gas Base Excess 1.2 mmol/L 0.5 mmol/L (-2-2) (-2-2) Blood Gas Oxygen Saturation 92 % (90-100) 91 % (90-100) Arterial Blood pH 7.43 7.45 (7.380-7.420) (7.380-7.420) Arterial Blood Partial 39 mmHg (38-42) 36 mmHg (38-42) Pressure CO2 Arterial Blood Partial 72 mmHg 66 mmHg Pressure O2 (61-120) (61-120) Arterial Blood Oxygen Content 16.5 Vol % 16.1 Vol % (12.0-20.0) (12.0-20.0) Arterial Blood 0.9 % (0-4) 1.1 % (0-4) Carboxyhemoglobin Arterial Blood Methemoglobin 0.7 % (0-2) 0.8 % (0-2) Blood Gas Hemoglobin 12.7 G/DL 12.7 G/DL (12.0-16.0) (12.0-16.0) Oxygen Delivery Device VENTILATOR VENTILATOR Blood Gas Ventilator Setting PAVC/AC PRVC/AC Blood Gas Inspired Oxygen 40 % 40 % Imaging Last 24 hours Impressions Chest X-Ray 10/13/16 0600 Signed Impressions: Service Date/Time: Thursday, October 13, 2016 04:18 - CONCLUSION: Minimal right base atelectasis or consolidation. Red Joshua MD Last Impressions Chest X-Ray 10/12/16 06 Signed Impressions: Service Date/Time: Wednesday, October 12, 2016 05:11 - CONCLUSION: Minimal increased density at the bases representing minimal atelectasis or consolidation. Red Joshua MD Head CT 10/11/161999 Signed Impressions: Service Date/Time: Tuesday, October 11, 2016 22:04 - CONCLUSION: Much worse in the interim. There is increased and extensive subdural and subarachnoid blood as above. Multifocal parenchymal hemorrhage now present of both frontal and temporal lobes, especially the right frontal lobe.. There is about 9 mm of leftward midline shift. 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 MD Pelvis X-Ray 10/11/161212 Signed Impressions: Service Date/Time: Tuesday, October 11, 2016 12:02 - CONCLUSION: Satisfactory trauma pelvis appearance. Red Hoffman MD Chest CT 10/11/161212 Signed Impressions: Service Date/Time: Tuesday, October 11, 2016 12:19 - CONCLUSION: Negative for acute traumatic injury. There is no pneumothorax. Davis Nolasco MD FACR Cervical Spine CT 10/11/161212 Signed Impressions: Service Date/Time: Tuesday, October 11, 2016 12:19 - CONCLUSION: Occipital skull fracture. No evidence of acute traumatic injury in the cervical spine Red Hoffman MD Abdomen/Pelvis CT 10/11/161212 Signed Impressions: Service Date/Time: Tuesday, October 11, 2016 12:19 - CONCLUSION: Negative CT scan of the abdomen and pelvis for acute traumatic injury. Davis Nolasco MD FACR Objective Remarks HEENT/Neuro: No pallor or icterus, tongue moist, pupils pinpoint, equal, reactive. does not withdraw. deeply sedated. RASS -5. Neck: No JVD Chest/pulmonary: CTA bilaterally Cardiovascular: S1-S2 regular no gallop or murmur GI/abdomen: Soft, nontender, bowel sounds present Extremities: Warm bilaterally, no edema A/P Assessment and Plan Elderly male presenting as trauma alert with: Encephalopathy Occipital skull fracture TBI with bifrontal contusions, bifrontal, right temporoparietal subdural hemorrhage, subarachnoid hemorrhage Hearing loss History of alcohol abuse Suspected alcohol withdrawal Suspected COPD Acute hypoxic and hypercarbic respiratory failure requiring mechanical ventilation Plan: Neuro: --Follow neuro checks --neurosurgery consulted and following. --repeat AM head CT for interval change --continue sedation today, keep ICP < 20. --If ICPs remain ok and head CT shows continued improvement tomorrow, will consider lightening sedation to get neuro exam --continue 3% saline, follow serial sodiums. will consider liberalizing tomorrow. -- Seizure prophylaxis with Keppra. -- Ativan/thiamine/folate acid for alcohol withdrawal. -- On Versed/fentanyl/propofol gtt. for sedation/analgesia. Cardiovascular: -- IV hydration -- watch for hypotension. --Labetalol/hydralazine when necessary for hypertension. -- Nicardipine drip if needed for hypertension. Pulmonary: -- Continue mechanical ventilation, vent bundle, Bronchodilators. -- Maintain end-tidal CO2 30-35. -- Started on Solu-Medrol on 10/11 for significant COPD/respiratory failure. will continue this x 5 days and then convert to prednisone 50mg daily and slow wean over 5 days. (taper already ordered) GI/liver: -- tube feeds and advanced to goal as tolerated Renal/: -- IV hydration, strict intake output, monitor and replete electrolytes, follow BUN/creatinine. Estrella catheterization. ID: Antibiotic prophylaxis per trauma team. Endocrine: -- Watch for hyperglycemia, SSI for glycemic control if needed -- steroid taper for presumed COPD exacerbation as described above. Heme: -- Follow CBC Prophylaxis: -- PPI/SCDs. -- No heparin or Lovenox in view of TBI till cleared by Neurosurgery Discussed with trauma team on multidisciplinary trauma rounds. Condition remains critical with persistently life-threatening elevated ICP and TBI. Time spent on critical care excluding procedures 35 minutes. this time was in addition to and separate in time and discontinuous from any other documented critical care time today. Oswaldo Chambers MD Oct 14, 2016 16:11
[2016-10-14] MEDS: 3% SALINE INJ 500 ML IV SCH (16:27)
[2016-10-14] MEDS: MULTIVITAMIN INJ 10 ML, FOLIC ACID INJ 1 MG in SODIUM CHLORID 0.9% 500 ML INJ 500 ML IV SCH (19:42)
[2016-10-14] MEDS: THIAMINE INJ 100 MG in SODIUM CHLORIDE 0.9% INJ 100 ML IV SCH (19:42)
[2016-10-15] VITALS (18 sets, daily range): BP systolic 138–161; BP diastolic 63–74; PULSE 78–106; RESP 24–26; TEMP 98.2–99.5; O2SAT 93–99
[2016-10-15] MEDS: RESP: ALBUTEROL 2.5 MG/IPRATROPIUM 0.5 MG NEB (SCH) NEB ×7 (00:17→23:50)
[2016-10-15] MEDS: PROPOFOL 1000 MG/100 ML INJ 100 ML IV SCH ×3 (02:28→14:46)
[2016-10-15] MEDS: MIDAZOLAM 100 MG/ML INJ 100 ML IV SCH (02:28)
[2016-10-15] MEDS: CHLORHEXIDINE GLUCONATE 2 % 1 PACK (2 CLOTHS) TOP SCH (03:07)
[2016-10-15] MEDS: hydrALAZINE HCL 20 MG/ML VIAL IV PUSH PRN ×5 (03:24→21:01)
--- NOTE | 2016-10-15 04:18 | RADRPT ---
EXAM DATE/TIME: 10/15/2016 03:37 [facility] COMPARISON: CHEST SINGLE AP, October 14, 2016, 5:08. INDICATIONS : Shortness of breath. MEDICAL HISTORY : Cardiovascular disease. Hypertension. SURGICAL HISTORY : None. ENCOUNTER: Subsequent ACUITY: 4 - 6 days PAIN SCORE: Non-responsive. LOCATION: chest FINDINGS: A single view of the chest demonstrates the lungs to be symmetrically aerated without evidence of mas s, infiltrate or effusion. The cardiomediastinal contours are unremarkable. Osseous structures are intact. Endotracheal tube and left subclavian lines are seen. CONCLUSION: Clear lungs. Hussein Miller MD on October 15, 2016 at 4:16 Board Certified Radiologist. This report was verified electronically.
[2016-10-15 04:21] LABS: AUTOMATED NEUTROPHIL # 15.5 TH/MM3 (1.8-7.7); BASOPHIL % 0.1 % (0.0-2.0); HEMATOCRIT 39.3 % (39.0-51.0); HEMO FLAGS DIFF FINAL; LYMPHOCYTE # 0.9 TH/MM3 (1.0-4.8); MEAN CELL VOLUME 97.5 FL (80.0-100.0); MEAN CORPUSCULAR HEMOGLOBIN 32.9 PG (27.0-34.0); MEAN CORPUSCULAR HGB CONC 33.7 % (32.0-36.0); MONO % 9.4 % (0.0-8.0); NEUT % 85.5 % (16.0-70.0); PLATELET COUNT 202 TH/MM3 (150-450); RED BLOOD COUNT 4.03 MIL/MM3 (4.50-5.90); RED CELL DISTRIBUTION WIDTH 15.2 % (11.6-17.2); WHITE BLOOD COUNT 18.2 TH/MM3 (4.0-11.0)
[2016-10-15 04:48] LABS: ALKALINE PHOSPHATASE 66 U/L (45-117); ALT (GPT) 26 U/L (12-78); ANION GAP 6 MEQ/L (5-15); AST (GOT) 24 U/L (15-37); BICARBONATE 25.5 MEQ/L (21.0-32.0); BLOOD UREA NITROGEN 24 MG/DL (7-18); CHLORIDE 123 MEQ/L (98-107); GLOMERULAR FILTRATION RATE 113 ML/MIN (>89); MAGNESIUM 2.7 MG/DL (1.5-2.5); POTASSIUM 3.5 MEQ/L (3.5-5.1); SODIUM (NA) 154 MEQ/L (136-145); TOTAL BILIRUBIN ADULT 0.3 MG/DL (0.2-1.0)
[2016-10-15] MEDS: methylPREDNISolone SOD SUCC 125 MG/2 ML VIAL IV PUSH SCH ×2 (05:04→17:53)
[2016-10-15 05:08] LABS: BLOOD GAS BASE EXCESS 1.4 mmol/L (-2-2); BLOOD GAS HCO3 25 mmol/L (22-26); BLOOD GAS METHEMOGLOBIN 0.8 % (0-2); BLOOD GAS O2 HGB SATURATION 94 % (90-100); BLOOD GAS OXYGEN CONTENT 17.4 Vol % (12.0-20.0); BLOOD GAS PCO2 36 mmHg (38-42); BLOOD GAS PO2 80 mmHg (61-120); BLOOD GAS TOTAL HGB 13.2 G/DL (12.0-16.0); CRITICAL VALUE NO; OXYGEN DEVICE VENTILATOR; TEMP CORR TO 98.6
[2016-10-15 05:09] LABS: DRAW SITE ART LINE; FIO2 40 %; STAT NO; VENT SETTINGS PRVC/AC
[2016-10-15] MEDS: CHLORHEXIDINE 0.12% (ORAL KIT) 15 ML CUP MT SCH ×2 (07:54→20:00)
[2016-10-15] MEDS: DOCUSATE SODIUM 100 MG CAP PO SCH ×2 (07:55→20:19)
[2016-10-15] MEDS: MAGNESIUM HYDROXIDE SUSP 30 ML CUP PO SCH (07:55)
[2016-10-15] MEDS: levETIRAcetam INJ 500 MG in SODIUM CHLORIDE 0.9% INJ 100 ML IV SCH ×2 (07:55→20:19)
[2016-10-15] MEDS: LACTULOSE SYRUP 20 GM/30 ML CUP PO SCH (07:55)
[2016-10-15] MEDS: 3% SALINE INJ 500 ML IV SCH (07:57)
[2016-10-15] MEDS ORDERED: BISACODYL 10 MG SUPP RECTAL ONE (08:45)
[2016-10-15] MEDS ORDERED: THIAMINE HCL 200 MG/2 ML VIAL IM SCH (09:00)
--- NOTE | 2016-10-15 10:43 | HHI.PR ---
Neuropsych Progress Notes/Response to Tx Contents of Sessions: Level of Consciousness Time with Patient: 15 minutes Premorbid psychological status Premorbid Cognitive, Emotional and Behavioral Status: Deferred. 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 The patient has no known psychiatric difficulties. However, substance abuse history is significant for alcohol dependence and tobacco dependence. Behavioral Reactions of Patient and Family/Support System: Tenuous. The patients family has a limited understanding of the complexities of this patient 's brain injury, and the lifestyle barriers that prevent an optimal recovery. They are expected to have ongoing issues of adjustment given the nature of the injury, and this aspect of recovery will require ongoing monitoring. Emotional/Behavioral Status of Patient and Family/Support System: Tenuous. Pertinent issues, if appropriate to this patients clinical care, are described in detail above. Maximizing acute care outcome It is recommended that the patient be monitored for emergent behavioral impulsivity as the medical condition evolves. This patients neuropathological challenges may limit their rehabilitation potential going forward, and these challenges will require specialized therapeutic skills to maximize outcome. Additionally, the patients family is experiencing ongoing issues of adjustment given the traumatic nature of the injury, and they [will need / may benefit] from ongoing psychological assistance. Anticipated Problems Ongoing areas of concern could include behavioral impulsivity, lack of insight and judgment, which is expected to improve with time and treatment, provided he moves past this stage of recovery. Presently, the patient is not following commands. His long duration alcohol dependence and tobacco dependence, which has led to global cerebral atrophy, will serve as a double barrier to his recovery from this injury. Treatment Plan This clinician will continue to follow with you throughout the course of this patients rehabilitation treatment, and I will be available to meet with the patients family/support system to facilitate their understanding and the ongoing care of their family member. The goals of neuropsychological intervention shall be both educational and supportive to the family/support system as is deemed clinically appropriate. [facility] Level: I:No response-total assistance Diagnosis: (1) Major neurocognitive disorder as late effect of traumatic brain injury with behavioral disturbance Status: Acute (2) Alcohol dependence Status: Acute Progress Note Narrative Ongoing follow-up of patient, who was seen bedside. There were no family members present. From a neurobehavioral perspective, this patient is unchanged compared to yesterday. It was reported that an EVD was placed yesterday. I will continue to follow with you. Kermit Hughes PhD Oct 15, 2016 10:43 am
--- NOTE | 2016-10-15 11:04 | HHI.CCPN ---
Subjective Remarks/Hospital Course 10/11: Elderly male who was brought in as a trauma alert after he fell 10 feet from a ladder. GCS 6 initially at the scene subsequently improved to 11 on arrival in the ER. Patient was evaluated by trauma team and subsequently underwent imaging studies and transferred to the ICU. Critical care consult was requested by Dr. Menezes. Patient was initially on a nonrebreather facemask however by the time I saw him he had been switched to nasal cannula and did not appear to be in any acute distress. Imaging studies revealed an occipital skull fracture, subdural and subarachnoid blood. Patient was awake and alert at the time of evaluation and following commands and moving all 4 extremities. He could not hear and had some speech difficulty at the time of my evaluation with difficulty in communication though was following commands appropriately. C spine cleared by Neurosurgery at the time of my evaluation. 10/12: Patient developed worsening agitation despite Precedex last evening. He was started on Ativan as his gives history that he drinks 12 beers a day and if he does not drink has a tendency to go into withdrawal very quickly. Patient was subsequently intubated and placed on mechanical ventilation, his head CT from last evening shows worsening bilateral subdural and subarachnoid hemorrhages, right temporoparietal subdural hemorrhage with 9 mm leftward midline shift. He was started on 3% saline. Currently sedated with Versed/ fentanyl/propofol. 10/13: Remains sedated, orally intubated on mechanical ventilation. On Versed/ fentanyl/propofol drips. Gets agitated on attempting to cut down on propofol which is currently at 30 mics per minute, Versed 10 mg/h, fentanyl 150 g per hour. 10/14: ICPs still borderline, mid-teens. remains sedated. EVD placed yesterday. midline shift slightly improved after EVD placement. 10/15: ICPs improved significantly. < 10 all night. EVD clamped. Objective Vital Signs Date Time Temp Pulse Resp B/P Pulse Ox O2 Delivery O2 Flow Rate FiO2 10/15/16 10:00 81 10/15/16 08:56 95 40 10/15/16 08:00 98.2 24 155/64 10/15/16 07:00 Mechanical Ventilator 10/11/16 20:07 6.00 Intake and Output 10/14/16 10/14/16 10/15/16 08:00 16:00 00:00 Intake Total 1186 ml 1511 ml 1108 ml Output Total 260 ml 1152 ml 450 ml Balance 926 ml 359 ml 658 ml Result Diagram: 10/15/16 0400 10/15/16 0400 Other Results Laboratory Tests Test 10/15/16 04:25 Blood Gas Puncture Site ART LINE Blood Gas Patient Temperature 98.6 Blood Gas HCO3 25 mmol/L (22-26) Blood Gas Base Excess 1.4 mmol/L (-2-2) Blood Gas Oxygen Saturation 94 % (90-100) Arterial Blood pH 7.46 (7.380-7.420) Arterial Blood Partial 36 mmHg (38-42) Pressure CO2 Arterial Blood Partial 80 mmHg Pressure O2 (61-120) Arterial Blood Oxygen Content 17.4 Vol % (12.0-20.0) Arterial Blood 1.0 % (0-4) Carboxyhemoglobin Arterial Blood Methemoglobin 0.8 % (0-2) Blood Gas Hemoglobin 13.2 G/DL (12.0-16.0) Oxygen Delivery Device VENTILATOR Blood Gas Ventilator Setting PRVC/AC Blood Gas Inspired Oxygen 40 % Imaging Last 24 hours Impressions Chest X-Ray 10/13/16 06 Signed Impressions: Service Date/Time: Thursday, October 13, 2016 04:18 - CONCLUSION: Minimal right base atelectasis or consolidation. Red Joshua MD Last Impressions Chest X-Ray 10/12/16 06 Signed Impressions: Service Date/Time: Wednesday, October 12, 2016 05:11 - CONCLUSION: Minimal increased density at the bases representing minimal atelectasis or consolidation. Red Joshua MD Head CT 10/11/161999 Signed Impressions: Service Date/Time: Tuesday, October 11, 2016 22:04 - CONCLUSION: Much worse in the interim. There is increased and extensive subdural and subarachnoid blood as above. Multifocal parenchymal hemorrhage now present of both frontal and temporal lobes, especially the right frontal lobe.. There is about 9 mm of leftward midline shift. 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 MD Pelvis X-Ray 10/11/16 121 Signed Impressions: Service Date/Time: Tuesday, October 11, 2016 12:02 - CONCLUSION: Satisfactory trauma pelvis appearance. Red Hoffman MD Chest CT 10/11/16 1213 Signed Impressions: Service Date/Time: Tuesday, October 11, 2016 12:19 - CONCLUSION: Negative for acute traumatic injury. There is no pneumothorax. Davis Nolasco MD FACR Cervical Spine CT 10/11/16 1213 Signed Impressions: Service Date/Time: Tuesday, October 11, 2016 12:19 - CONCLUSION: Occipital skull fracture. No evidence of acute traumatic injury in the cervical spine Red Hoffman MD Abdomen/Pelvis CT 10/11/16 1213 Signed Impressions: Service Date/Time: Tuesday, October 11, 2016 12:19 - CONCLUSION: Negative CT scan of the abdomen and pelvis for acute traumatic injury. Davis Nolasco MD FACR Objective Remarks HEENT/Neuro: No pallor or icterus, tongue moist, pupils pinpoint, equal, reactive. does not withdraw. deeply sedated. RASS -5. Neck: No JVD Chest/pulmonary: CTA bilaterally Cardiovascular: S1-S2 regular no gallop or murmur GI/abdomen: Soft, nontender, bowel sounds present Extremities: Warm bilaterally, no edema A/P Assessment and Plan Elderly male presenting as trauma alert with: Encephalopathy Occipital skull fracture TBI with bifrontal contusions, bifrontal, right temporoparietal subdural hemorrhage, subarachnoid hemorrhage Hearing loss History of alcohol abuse Suspected alcohol withdrawal Suspected COPD Acute hypoxic and hypercarbic respiratory failure requiring mechanical ventilation Plan: Neuro: --Follow neuro checks --neurosurgery consulted and following. --lighten sedation today. start by weaning versed infusion to off. will then proceed with weaning propofol. hold wean if ICP > 20. plan for goal RASS -2 if ICP allows. --continue 3% saline, follow serial sodiums. if patient tolerates sedation wean , will then start to slowly liberalize sodium. -- Seizure prophylaxis with Keppra. -- thiamine/folate acid for alcohol withdrawal. -- On Versed/fentanyl/propofol gtt. for sedation/analgesia. will wean this today. Cardiovascular: -- IV hydration -- watch for hypotension. --Labetalol/hydralazine when necessary for hypertension. -- Nicardipine drip if needed for hypertension. Pulmonary: -- Continue mechanical ventilation, vent bundle, Bronchodilators. -- Maintain end-tidal CO2 30-35. -- Started on Solu-Medrol on 10/11 for significant COPD/respiratory failure. will continue this x 5 days and then convert to prednisone 50mg daily and slow wean over 5 days. (taper already ordered) GI/liver: -- tube feeds and advanced to goal as tolerated Renal/: -- IV hydration, strict intake output, monitor and replete electrolytes, follow BUN/creatinine. Estrella catheterization. ID: Antibiotic prophylaxis per trauma team. Endocrine: -- Watch for hyperglycemia, SSI for glycemic control if needed -- steroid taper for presumed COPD exacerbation as described above. Heme: -- Follow CBC Prophylaxis: -- PPI/SCDs. -- No heparin or Lovenox in view of TBI till cleared by Neurosurgery Condition remains critical with persistently life-threatening elevated ICP and TBI. Time spent on critical care excluding procedures 33 minutes. this time was in addition to and separate in time and discontinuous from any other documented critical care time today. Oswaldo Chambers MD Oct 15, 2016 11:04
[2016-10-15] MEDS: LABETALOL HCL 100 MG/20 ML VIAL IV PUSH PRN (11:26)
[2016-10-15] MEDS: PANTOPRAZOLE SODIUM 40 MG VIAL IVP SCH (11:57)
[2016-10-15] MEDS ORDERED: ACETAMINOPHEN 650 MG SUPP PR PRN (12:15)
[2016-10-15] MEDS ORDERED: ACETAMINOPHEN 325 MG TAB PO PRN (12:15)
[2016-10-15] MEDS: SODIUM CHLOR 0.9% 1000 ML INJ 1,000 ML IV SCH (12:18)
[2016-10-15] MEDS: METOPROLOL TARTRATE 5 MG/5 ML VIAL IV PUSH SCH ×2 (12:32→17:53)
[2016-10-15] MEDS: MEPERIDINE HCL 50 MG/ML VIAL IV PUSH PRN ×2 (12:32→21:23)
[2016-10-15 12:59] LABS: BLOOD, URINE SMALL (NEG); GLUCOSE,URINE TRACE mg/dL (NEG); KETONE, URINE NEG (NEG); MUCUS URINE FEW /lpf (OCC); NITRITE,URINE NEG (NEG); URINE COLOR YELLOW (YELLW/STRAW)
[2016-10-15 13:00] LABS: COMMENT (UR) CATH-CULT NOT IND; CULTURE IF INDICATED CATH CULTURE NOT IND
[2016-10-15] MEDS: FREE WATER G-TUBE SCH ×2 (13:41→20:20)
--- NOTE | 2016-10-15 14:27 | PD.OP ---
Operative Report Date of Surgery: Oct 13, 2016 Preoperative Diagnosis: Severe traumatic brain injury Postoperative Diagnosis: Severe traumatic brain injury Procedure: Right frontal [place] hole with placement of a ventriculostomy catheter Anesthesia: local Surgeon: Chetan Cruz Railroad Carman(s): DANGELO Operation and Findings: INDICATIONS FOR THE PROCEDURE The patient is an adult male who was brought to [facility] as a trauma alert after a fall with a traumatic brain injury He suffered clinical deterioration and follow up CT of the brain showed a right subdural hematoma and multiple cerebral hemorrhagic consutions causing mass effect and midline shift. It was not possible to clinically examine the patient qas he was in delirium [place] requiring heavy sedation. The trauma surgeon requested placement of ventriculostomy catheter as recommended by the Tra[employer] of [employer] [place] [employer] for management of his ICP's and CPP's. DETAILS OF THE SURGICAL PROCEDURE The frontal area was shaved, prepped and draped in the usual sterile fashion. An entry point was selected 90 millimeters posterior to the supraorbital rim and 25 millimeters from the midline. The area was infiltrated with 1% lidocaine with epinephrine. A skin incision was made with a #15 blade down to the level of the periosteum. Using a twist drill, a pebbles hole was made. The dura was carefully opened with a brain needle and a ventriculostomy catheter was advanced into the ventricular system. At a depth of 65 millimeters, cerebrospinal fluid was obtained. Opening pressure was 15 centimeters of water. A specimen of cerebrospinal fluid was collected and sent to the lab for analysis of the glucose, protein, cell count and cultures. The catheter was then tunneled under the galea and externalized through a separate stab incision. The incision was closed with 3-0 nylon in a single plane. The patient tolerated the procedure well. COMPLICATIONS There were no intraoperative complications. BLOOD LOSS Blood loss was minimal. Chetan Cruz MD Oct 15, 2016 14:27
[2016-10-15] MEDS: MULTIVITAMIN INJ 10 ML, FOLIC ACID INJ 1 MG in SODIUM CHLORID 0.9% 500 ML INJ 500 ML IV SCH (20:19)
[2016-10-15] MEDS: THIAMINE INJ 100 MG in SODIUM CHLORIDE 0.9% INJ 100 ML IV SCH (20:19)
[2016-10-16] VITALS (21 sets, daily range): BP systolic 123–150; BP diastolic 56–80; PULSE 57–98; RESP 15–19; TEMP 97.9–99.2; O2SAT 93–98
[2016-10-16] MEDS: METOPROLOL TARTRATE 5 MG/5 ML VIAL IV PUSH SCH ×4 (00:03→18:31)
[2016-10-16] MEDS: hydrALAZINE HCL 20 MG/ML VIAL IV PUSH PRN (00:45)
[2016-10-16] MEDS: RESP: ALBUTEROL 2.5 MG/IPRATROPIUM 0.5 MG NEB (SCH) NEB ×6 (03:17→23:56)
[2016-10-16] MEDS: PROPOFOL 1000 MG/100 ML INJ 100 ML IV SCH ×4 (03:51→20:19)
[2016-10-16] MEDS: 3% SALINE INJ 500 ML IV SCH (03:52)
[2016-10-16] MEDS: CHLORHEXIDINE GLUCONATE 2 % 1 PACK (2 CLOTHS) TOP SCH (05:42)
[2016-10-16] MEDS: FREE WATER G-TUBE SCH ×6 (05:47→20:00)
[2016-10-16] MEDS: methylPREDNISolone SOD SUCC 125 MG/2 ML VIAL IV PUSH SCH ×2 (05:47→18:30)
[2016-10-16] MEDS: MEPERIDINE HCL 50 MG/ML VIAL IV PUSH PRN ×2 (05:48→21:10)
[2016-10-16 05:50] LABS: BLOOD GAS BASE EXCESS 0.2 mmol/L (-2-2); BLOOD GAS CARBOXYHEMOGLOBIN 0.9 % (0-4); BLOOD GAS HCO3 24 mmol/L (22-26); BLOOD GAS METHEMOGLOBIN 0.9 % (0-2); BLOOD GAS O2 HGB SATURATION 93 % (90-100); BLOOD GAS OXYGEN CONTENT 17.7 Vol % (12.0-20.0); BLOOD GAS PCO2 39 mmHg (38-42); BLOOD GAS PO2 81 mmHg (61-120); BLOOD GAS TOTAL HGB 13.5 G/DL (12.0-16.0); CRITICAL VALUE NO; OXYGEN DEVICE VENTILATOR; TEMP CORR TO 98.6
[2016-10-16 05:51] LABS: DRAW SITE ART LINE; FIO2 40 %; STAT NO; VENT SETTINGS PRVC/AC
[2016-10-16 06:08] LABS: AUTOMATED NEUTROPHIL # 13.5 TH/MM3 (1.8-7.7); BASOPHIL % 0.1 % (0.0-2.0); HEMATOCRIT 39.2 % (39.0-51.0); HEMO FLAGS DIFF FINAL; LYMPH % 5.7 % (9.0-44.0); LYMPHOCYTE # 0.9 TH/MM3 (1.0-4.8); MEAN CELL VOLUME 100.1 FL (80.0-100.0); MEAN CORPUSCULAR HEMOGLOBIN 32.2 PG (27.0-34.0); MEAN CORPUSCULAR HGB CONC 32.2 % (32.0-36.0); MONO % 12.8 % (0.0-8.0); NEUT % 81.4 % (16.0-70.0); PLATELET COUNT 208 TH/MM3 (150-450); RED BLOOD COUNT 3.92 MIL/MM3 (4.50-5.90); RED CELL DISTRIBUTION WIDTH 15.1 % (11.6-17.2); WHITE BLOOD COUNT 16.6 TH/MM3 (4.0-11.0)
[2016-10-16 06:14] LABS: ALKALINE PHOSPHATASE 72 U/L (45-117); ALT (GPT) 30 U/L (12-78); ANION GAP 5 MEQ/L (5-15); AST (GOT) 25 U/L (15-37); BICARBONATE 28.6 MEQ/L (21.0-32.0); BLOOD UREA NITROGEN 27 MG/DL (7-18); CHLORIDE 124 MEQ/L (98-107); GLOMERULAR FILTRATION RATE 109 ML/MIN (>89); MAGNESIUM 2.7 MG/DL (1.5-2.5); POTASSIUM 3.8 MEQ/L (3.5-5.1); TOTAL BILIRUBIN ADULT 0.3 MG/DL (0.2-1.0)
[2016-10-16 06:21] LABS: SODIUM (NA) 158 MEQ/L (136-145)
--- NOTE | 2016-10-16 06:45 | RADRPT ---
EXAM DATE/TIME: 10/16/2016 05:18 [facility] COMPARISON: CHEST SINGLE AP, October 15, 2016, 3:37. INDICATIONS : Follow up trauma. Infiltrate. MEDICAL HISTORY : None. SURGICAL HISTORY : None. ENCOUNTER: Subsequent ACUITY: 3 days PAIN SCORE: Non-responsive. LOCATION: Bilateral chest FINDINGS: One hyperinflation. Cardiomegaly. Endotracheal tube and left subclavian line in satisfactory position . No consolidation or effusion. Degenerative changes of the spine. CONCLUSION: No significant change has occurred. Hussein Miller MD on October 16, 2016 at 6:43 Board Certified Radiologist. This report was verified electronically.
[2016-10-16] MEDS: PROPRANOLOL HCL 10 MG TAB PO SCH ×3 (06:48→21:10)
[2016-10-16] MEDS: QUEtiapine FUMARATE 100 MG TAB PO SCH ×3 (06:48→21:10)
[2016-10-16] MEDS: oxyCODONE HCL ORAL CONC 20 MG/ML SYRINGE PO SCH ×5 (06:49→22:45)
[2016-10-16] MEDS ORDERED: FREE WATER G-TUBE SCH (07:00)
--- NOTE | 2016-10-16 07:15 | HHI.CCPN ---
Subjective Remarks/Hospital Course 10/11: Elderly male who was brought in as a trauma alert after he fell 10 feet from a ladder. GCS 6 initially at the scene subsequently improved to 11 on arrival in the ER. Patient was evaluated by trauma team and subsequently underwent imaging studies and transferred to the ICU. Critical care consult was requested by Dr. Menezes. Patient was initially on a nonrebreather facemask however by the time I saw him he had been switched to nasal cannula and did not appear to be in any acute distress. Imaging studies revealed an occipital skull fracture, subdural and subarachnoid blood. Patient was awake and alert at the time of evaluation and following commands and moving all 4 extremities. He could not hear and had some speech difficulty at the time of my evaluation with difficulty in communication though was following commands appropriately. C spine cleared by Neurosurgery at the time of my evaluation. 10/12: Patient developed worsening agitation despite Precedex last evening. He was started on Ativan as his gives history that he drinks 12 beers a day and if he does not drink has a tendency to go into withdrawal very quickly. Patient was subsequently intubated and placed on mechanical ventilation, his head CT from last evening shows worsening bilateral subdural and subarachnoid hemorrhages, right temporoparietal subdural hemorrhage with 9 mm leftward midline shift. He was started on 3% saline. Currently sedated with Versed/ fentanyl/propofol. 10/13: Remains sedated, orally intubated on mechanical ventilation. On Versed/ fentanyl/propofol drips. Gets agitated on attempting to cut down on propofol which is currently at 30 mics per minute, Versed 10 mg/h, fentanyl 150 g per hour. 10/14: ICPs still borderline, mid-teens. remains sedated. EVD placed yesterday. midline shift slightly improved after EVD placement. 10/15: ICPs improved significantly. < 10 all night. EVD clamped. 10/16: ICPs stable off versed. sodium continues to rise. withdraws to pain x 4. Objective Vital Signs Date Time Temp Pulse Resp B/P Pulse Ox O2 Delivery O2 Flow Rate FiO2 10/16/16 06:00 76 10/16/16 04:00 40 10/16/16 04:00 99.2 19 141/80 95 10/15/16 19:00 Mechanical Ventilator Intake and Output 10/15/16 10/15/16 10/16/16 08:00 16:00 00:00 Intake Total 1433 ml 1614 ml 1442 ml Output Total 500 ml 600 ml 600 ml Balance 933 ml 1014 ml 842 ml Result Diagram: 10/16/16 0515 10/16/16 0515 Other Results Laboratory Tests Test 10/16/16 05:33 Blood Gas Puncture Site ART LINE Blood Gas Patient Temperature 98.6 Blood Gas HCO3 24 mmol/L (22-26) Blood Gas Base Excess 0.2 mmol/L (-2-2) Blood Gas Oxygen Saturation 93 % (90-100) Arterial Blood pH 7.41 (7.380-7.420) Arterial Blood Partial 39 mmHg (38-42) Pressure CO2 Arterial Blood Partial 81 mmHg Pressure O2 (61-120) Arterial Blood Oxygen Content 17.7 Vol % (12.0-20.0) Arterial Blood 0.9 % (0-4) Carboxyhemoglobin Arterial Blood Methemoglobin 0.9 % (0-2) Blood Gas Hemoglobin 13.5 G/DL (12.0-16.0) Oxygen Delivery Device VENTILATOR Blood Gas Ventilator Setting PRVC/AC Blood Gas Inspired Oxygen 40 % Imaging Last 24 hours Impressions Chest X-Ray 10/13/16 0600 Signed Impressions: Service Date/Time: Thursday, October 13, 2016 04:18 - CONCLUSION: Minimal right base atelectasis or consolidation. Red Joshua MD Last Impressions Chest X-Ray 10/12/16 0600 Signed Impressions: Service Date/Time: Wednesday, October 12, 2016 05:11 - CONCLUSION: Minimal increased density at the bases representing minimal atelectasis or consolidation. Red Joshua MD Head CT 10/11/161999 Signed Impressions: Service Date/Time: Tuesday, October 11, 2016 22:04 - CONCLUSION: Much worse in the interim. There is increased and extensive subdural and subarachnoid blood as above. Multifocal parenchymal hemorrhage now present of both frontal and temporal lobes, especially the right frontal lobe.. There is about 9 mm of leftward midline shift. 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 MD Pelvis X-Ray 10/11/16 1213 Signed Impressions: Service Date/Time: Tuesday, October 11, 2016 12:02 - CONCLUSION: Satisfactory trauma pelvis appearance. Red Hoffman MD Chest CT 2/20/17 1213 Signed Impressions: Service Date/Time: Tuesday, October 11, 2016 12:19 - CONCLUSION: Negative for acute traumatic injury. There is no pneumothorax. Davis Nolasco MD FACR Cervical Spine CT 10/11/161212 Signed Impressions: Service Date/Time: Tuesday, October 11, 2016 12:19 - CONCLUSION: Occipital skull fracture. No evidence of acute traumatic injury in the cervical spine Red Hoffman MD Abdomen/Pelvis CT 10/11/161212 Signed Impressions: Service Date/Time: Tuesday, October 11, 2016 12:19 - CONCLUSION: Negative CT scan of the abdomen and pelvis for acute traumatic injury. Davis Nolasco MD FACR Objective Remarks HEENT/Neuro: No pallor or icterus, tongue moist, pupils pinpoint, equal, reactive. withdraw x 4. RASS -3. Neck: No JVD Chest/pulmonary: CTA bilaterally Cardiovascular: S1-S2 regular no gallop or murmur GI/abdomen: Soft, nontender, bowel sounds present Extremities: Warm bilaterally, no edema A/P Assessment and Plan Elderly male presenting as trauma alert with: Encephalopathy Occipital skull fracture TBI with bifrontal contusions, bifrontal, right temporoparietal subdural hemorrhage, subarachnoid hemorrhage Hearing loss History of alcohol abuse Suspected alcohol withdrawal Suspected COPD Acute hypoxic and hypercarbic respiratory failure requiring mechanical ventilation Hypernatremia Elevated ICP Plan: Neuro: --Follow neuro checks --neurosurgery consulted and following. --continue to lighten sedation. wean propofol for RASS goal -2. hold wean if ICP > 20. --start oxycodone 10mg po q4h scheduled for pain --start seroquel 100mg po q8h for delirium --d/c 3% drip, plan to normalize serum sodiums. -- Seizure prophylaxis with Keppra. -- thiamine/folate acid for alcohol withdrawal. Cardiovascular: -- IV hydration -- watch for hypotension. --Labetalol/hydralazine when necessary for hypertension. -- Nicardipine drip if needed for hypertension. Pulmonary: -- Continue mechanical ventilation, vent bundle, Bronchodilators. -- Maintain end-tidal CO2 30-35. -- Started on Solu-Medrol on 10/11 for significant COPD/respiratory failure. will continue this x 5 days and then convert to prednisone 50mg daily and slow wean over 5 days. (taper already ordered) GI/liver: -- tube feeds at goal -- start free water 300mg po q4h to normalize serum sodium. recheck sodium at noon. Renal/: -- IV hydration, strict intake output, monitor and replete electrolytes, follow BUN/creatinine. Estrella catheterization. ID: no indication for abx at this time. Endocrine: -- Watch for hyperglycemia, SSI for glycemic control if needed -- steroid taper for presumed COPD exacerbation as described above. Heme: -- Follow CBC Prophylaxis: -- PPI/SCDs. -- No heparin or Lovenox in view of TBI till cleared by Neurosurgery Condition remains critical with persistently life-threatening elevated ICP and TBI, hypoxic respiratory failure, severe hypernatremia, delirium. Time spent on critical care excluding procedures 38 minutes. this time was in addition to and separate in time and discontinuous from any other documented critical care time today. Oswaldo Chambers MD Oct 16, 2016 07:15
[2016-10-16] MEDS: LACTULOSE SYRUP 20 GM/30 ML CUP PO SCH (07:55)
[2016-10-16] MEDS: MAGNESIUM HYDROXIDE SUSP 30 ML CUP PO SCH (07:55)
[2016-10-16] MEDS: CHLORHEXIDINE 0.12% (ORAL KIT) 15 ML CUP MT SCH ×2 (07:56→20:00)
[2016-10-16] MEDS: levETIRAcetam INJ 500 MG in SODIUM CHLORIDE 0.9% INJ 100 ML IV SCH ×2 (07:56→20:19)
[2016-10-16] MEDS: DOCUSATE SODIUM 100 MG CAP PO SCH ×2 (07:56→20:19)
[2016-10-16] MEDS ORDERED: FUROSEMIDE 40 MG/4 ML VIAL IV PUSH ONE (11:30)
[2016-10-16] MEDS: PANTOPRAZOLE SODIUM 40 MG VIAL IVP SCH (11:41)
--- NOTE | 2016-10-16 14:01 | HHI.NSPN ---
Note Status Status: Progress Note Interval History Diagnosis This document patient Reflects my encounter on 10/14/2016 when the patient was assessed during morning Rounds trauma alert Interval History This document patient Reflects my encounter on 10/14/2016 when the patient was assessed during morning Rounds this is a 56 year old male who was brought to [facility] as a trauma alert after he fell 10 feet from a ladder. His initial GCS was 6 at the scene, However subsequently improved to 11 on arrival in the ER. He was evaluated by the trauma team and subsequently underwent CT studies and transferred to the SICU. Critical care consulted. He was initially on a nonrebreather facemask and awake. Initial CT of the brain showed an occipital skull fracture, subdural and subarachnoid hemorrhage. Apparently subsequently deteriorated requiring endotracheal intubation and mechanical ventilation. He had a CT of the brain 10/11 which showed increased and extensive subdural and subarachnoid blood , ultifocal parenchymal hemorrhage in both frontal and temporal lobes, with 9 mm of leftward midline shift Neurosurgical consultation was requested. 10/14. Significantly improved. Status post ventriculostomy last night. ICP's are stable Labs, Micro, & Vital Signs Results This document patient Reflects my encounter on 10/14/2016 when the patient was assessed during morning Rounds Date Time Temp Pulse Resp B/P Pulse Ox O2 Delivery O2 Flow Rate FiO2 10/16/16 12:00 40 10/16/16 12:00 66 10/16/16 12:00 98.6 66 16 136/58 97 10/16/16 11:21 97 40 10/16/16 10:35 16 10/16/16 10:00 65 10/16/16 08:00 97.9 65 18 123/56 97 10/16/16 08:00 40 10/16/16 08:00 73 10/16/16 07:40 96 40 10/16/16 07:00 96 Mechanical Ventilator 10/16/16 06:00 76 10/16/16 04:00 40 10/16/16 04:00 99.2 98 19 141/80 95 10/16/16 04:00 98 10/16/16 03:22 95 40 10/16/16 02:00 93 10/16/16 00:19 94 40 10/16/16 00:02 96 40 10/16/16 00:00 91 10/16/16 00:00 98.0 91 18 148/64 96 10/16/16 00:00 40 10/15/16 22:00 83 10/15/16 20:17 93 40 10/15/16 20:17 93 40 10/15/16 20:00 40 10/15/16 20:00 98 10/15/16 20:00 98.5 98 24 154/74 99 10/15/16 19:00 99 Mechanical Ventilator 10/15/16 18:00 89 10/15/16 16:53 94 40 10/15/16 16:00 98.6 92 24 154/67 97 10/15/16 16:00 92 10/15/16 16:00 40 10/15/16 14:00 78 10/16/16 07:00 Intake Total 4742 ml Output Total 1900.0 ml Balance 2842.0 ml Constitutional This document patient Reflects my encounter on 10/14/2016 when the patient was assessed during morning Rounds Vital Signs Date Time Temp Pulse Resp B/P Pulse Ox O2 Delivery O2 Flow Rate FiO2 10/16/16 12:00 40 10/16/16 12:00 66 10/16/16 12:00 98.6 66 16 136/58 97 10/16/16 11:21 97 40 10/16/16 10:35 16 10/16/16 10:00 65 10/16/16 08:00 97.9 65 18 123/56 97 10/16/16 08:00 40 10/16/16 08:00 73 10/16/16 07:40 96 40 10/16/16 07:00 96 Mechanical Ventilator 10/16/16 06:00 76 10/16/16 04:00 40 10/16/16 04:00 99.2 98 19 141/80 95 10/16/16 04:00 98 10/16/16 03:22 95 40 10/16/16 02:00 93 10/16/16 00:19 94 40 10/16/16 00:02 96 40 10/16/16 00:00 91 10/16/16 00:00 98.0 91 18 148/64 96 2/25/17 00:00 40 10/15/16 22:00 83 10/15/16 20:17 93 40 10/15/16 20:17 93 40 10/15/16 20:00 40 10/15/16 20:00 98 10/15/16 20:00 98.5 98 24 154/74 99 10/15/16 19:00 99 Mechanical Ventilator 10/15/16 18:00 89 10/15/16 16:53 94 40 10/15/16 16:00 98.6 92 24 154/67 97 10/15/16 16:00 92 10/15/16 16:00 40 10/15/16 14:00 78 10/16/16 07:00 Intake Total 4742 ml Output Total 1900.0 ml Balance 2842.0 ml Review of Systems/Exam ROS This document patient Reflects my encounter on 10/14/2016 when the patient was assessed during morning Rounds Exam This document patient Reflects my encounter on 10/14/2016 when the patient was assessed during morning Rounds The patient is intubated and deeply sedated. Cranial Nerves: Pupils equal, round, reactive to light. Eyes appear conjugated. There was no nystagmus, no papilledema. Face musculature appeared symmetrical at rest. Face sensation, olfaction, visual rosas, and hearing cannot be adequately assessed due to his neurological condition. The patient has a corneal reflex. He has a gag reflex. The sternocleidomastoid and trapezius are symmetrical. Cervical Spine: His neck is soft, supple, without nuchal rigidity. Motor: No response to pain Reflexes: Deep tendon reflexes are 1+ and symmetrical in the biceps, triceps, and brachioradialis, bilaterally, in the upper extremities. In the lower extremities, the patellar and ankles are 1+, bilaterally. Plantars silent response to plantar stimulation. There is no clonus Sensory: On examination there is no response to painful stimuli Cerebellar: Examination cannot be adequately assessed due to the patient's neurological condition. Medications Current Medications This document patient Reflects my encounter on 10/14/2016 when the patient was assessed during morning Rounds Current Medications Cefazolin Sodium/ Dextrose (Ancef 2 Gm Premix) 50 ml @ As Directed STK-MED ONCE .ROUTE ; Start 10/11/16 at 12:16; Stop 10/11/16 at 12:17; Status DC Iohexol (Omnipaque 350 Inj) 100 ml STK-MED ONCE IV Last administered on 12:28; Start 10/11/16 at 12:28; Stop 10/11/16 at 12:29; Status DC Iohexol 100 ml 100 ml STK-MED ONCE IV ; Start 10/11/16 at 12:42; Stop 10/11/16 at 12:43; Status Cancel Sodium Chloride (NS 1000 ml Inj) 1,000 ml @ 70 mls/hr [id number] IV Last administered on 10/14/16 23:37; Start 10/11/16 at 13:00; Stop 10/15/16 at 12:20 ; Status DC IV Flush (NS Flush) 2 ml UNSCH PRN IVF FLUSH AFTER USING IV ACCESS; Start 10/11 at 13:00 Enalaprilat (Vasotec Inj) 1.25 mg Q8H PRN IV SBP>180, DBP>95; Start 10/11/16 at 13:00; Stop 10/14/16 at 15:56; Status DC Ondansetron HCl (Zofran Inj) 4 mg Q6H PRN IV NAUSEA OR VOMITING; Start at 13:00 Pantoprazole Sodium (Protonix Inj) 40 mg Q24H IVP Last administered on 11:41; Start 10/11/16 at 13:00 Docusate Sodium (Colace) 100 mg BID PO Last administered on 10/16/16 07:56; Start 10/11/16 at 21:00 Magnesium Hydroxide (Milk Of Magnesia Liq) 30 ml Q6H PRN PO CONSTIPATION; Start 10/11/16 at 13:00; Stop 10/12/16 at 09:00; Status DC Miscellaneous Information 1 [id number] Last administered on 10/11/16 13:00; Start 10/11/16 at 13:00 Chlorhexidine Gluconate (Chlorhexidine 2% Cloth) 3 pack Taper DAILY@04 TOP Last administered on 10/16/16 05:42; Start 10/12/16 at 04:00; Stop 10/08/17 at 03:59 Chlorhexidine Gluconate (Chlorhexidine 2% Cloth) 3 pack UNSCH PRN TOP HYGIENIC CARE; Start 10/11/16 at 13:00 Hydralazine HCl (Apresoline Inj) 20 mg STK-MED ONCE .ROUTE Last administered on 10/11/16 13:01; Start 10/11/16 at 13:01; Stop 10/11/16 at 13:02; Status DC Hydralazine HCl (Apresoline Inj) 10 mg Q2H PRN IV PUSH SBP greater than 150mm Hg Last administered on 10/16/16 00:45; Start 10/11/16 at 13:30 Labetalol HCl 10 mg 10 mg Q4H PRN IV PUSH SBP greater than 160mm Hg Last administered on 10/15/16 11:26; Start 10/11/16 at 13:30; Stop 10/15/16 at 12:08 ; Status DC Nicardipine HCl/ Sodium Chloride (Cardene Inj/NS 250 ml Inj) 260 ml @ 0 mls/hr TITRATE IV ; Start 10/11/16 at 13:30; Stop 10/13/16 at 09:55; Status DC Albuterol/ Ipratropium (Duoneb Neb) 1 ampule Q4HR NEB NEB Last administered on 10/16/16 11:21; Start 10/11/16 at 13:45 Albuterol/ Ipratropium 1 ampule 1 ampule Q2HR NEB PRN NEB wheezing, shortness of breath; Start 10/11/16 at 13:45 Dexmedetomidine HCl (Precedex Inj) 50 ml @ 0 mls/hr TITRATE IV Last administered on 10/11/16 16:53; Start 10/11/16 at 16:30; Stop 10/12/16 at 11:11 ; Status DC Methylprednisolone Sodium Succinate 80 mg 80 mg Q12H IV PUSH Last administered on 10/16/16 05:47; Start 10/11/16 at 18:00; Stop 10/16/16 at 18:00 Multivitamins 10 ml/Folic Acid 1 mg/Sodium Chloride 510.2 ml @ 125 mls/hr Q24H IV Last administered on 10/15/16 20:19; Start 10/11/16 at 20:00; Stop at 19:59 Thiamine HCl/ Sodium Chloride (Thiamine Inj/NS Inj) 101 ml @ 100 mls/hr Q24H IV Last administered on 10/15/16 20:19; Start 10/11/16 at 20:00 Lorazepam (Ativan Inj) 2 mg Q4HR PRN IV PUSH CIWA 11-14 Last administered on 19:43; Start 10/11/16 at 17:30; Stop 10/16/16 at 06:17; Status DC Lorazepam (Ativan Inj) 2 mg Q2HR PRN IV PUSH CIWA 15-20; Start 10/11/16 at 17: 30; Stop 10/16/16 at 06:16; Status DC Haloperidol Lactate (Haldol Inj) 2 mg Q15M PRN IM SEE LABEL COMMENTS Last administered on 10/11/16 18:05; Start 10/11/16 at 17:30; Stop 10/13/16 at 09:56 ; Status DC Thiamine HCl 100 mg 100 mg DAILY IM ; Start 10/15/16 at 09:00; Status UNV Sodium Acetate/ Sodium Chloride/ Sodium Chloride (Sodium Acetate Inj/Sodium Chloride 23.4% Inj/NS 1000 ml Inj) 1,067 ml @ 20 mls/hr Q24H IV ; Start at 20:00; Stop 10/12/16 at 00:48; Status DC Mannitol 25 gm 25 gm ONCE ONCE IV Last administered on 10/11/16 19:00; Start 10/11/16 at 19:00; Stop 10/11/16 at 19:02; Status DC Levetriacetam/ Sodium Chloride (Keppra Inj/NS Inj) 105 ml @ 420 mls/hr Q12HR IV Last administered on 10/16/16 07:56; Start 10/11/16 at 21:00 Lorazepam (Ativan Inj) 4 mg ONCE ONCE IV PUSH Last administered on 10/11/16 19:00; Start 10/11/16 at 19:00; Stop 10/11/16 at 19:02; Status DC Etomidate (Amidate Inj) 20 mg ONCE ONCE IV PUSH ; Start 10/11/16 at 20:45; Stop 10/11/16 at 20:46; Status DC Rocuronium [place] (Zemuron Inj) 50 mg BOLUS ONCE IV Last administered on 10/11 20:45; Start 10/11/16 at 20:45; Stop 10/11/16 at 20:46; Status DC Midazolam HCl (Versed Inj) 5 mg ONCE ONCE IV Last administered on 10/11/16 20 :45; Start 10/11/16 at 20:45; Stop 10/11/16 at 20:46; Status DC Chlorhexidine Gluconate 15 ml 15 ml BID@08,20 MT Last administered on 07:56; Start 10/12/16 at 08:00 Propofol 100 ml @ 0 mls/hr TITRATE IV Last administered on 10/16/16 13:21; Start 10/11/16 at 20:45 Midazolam HCl 100 ml @ 0 mls/hr TITRATE IV Last administered on 10/15/16 02:28 ; Start 10/11/16 at 20:45; Stop 10/16/16 at 06:16; Status DC Sodium Chloride (Sodium Chloride 3% Inj) 500 ml @ 30 mls/hr DAILY IV Last administered on 10/16/16 03:52; Start 10/11/16 at 20:45; Stop 10/16/16 at 06:17 ; Status DC Thiamine HCl (Thiamine Inj) 100 mg DAILY IM ; Start 10/12/16 at 09:00; Status UNV Fentanyl Citrate (fentaNYL INJ) 100 mcg STK-MED ONCE .ROUTE Last administered on 10/11/16 20:53; Start 10/11/16 at 20:53; Stop 10/11/16 at 20:54; Status DC Epinephrine HCl (EPINEPHrine (1:10,000) INJ) 1 mg STK-MED ONCE .ROUTE ; Start at 21:33; Stop 10/11/16 at 21:34; Status DC Lidocaine HCl (Xylocaine 2% Inj) 100 mg STK-MED ONCE .ROUTE ; Start 10/11/16 at 21:33; Stop 10/11/16 at 21:34; Status DC Atropine Sulfate 1 mg 1 mg STK-MED ONCE .ROUTE ; Start 10/11/16 at 21:33; Stop 10/11/16 at 21:34; Status DC Fentanyl Citrate (fentaNYL DRIP) 250 ml @ 0 mls/hr TITRATE IV Last administered on 10/12/16 19:22; Start 10/12/16 at 05:00 Epinephrine HCl (EPINEPHrine (1:10,000) INJ) 1 mg STK-MED ONCE .ROUTE ; Start at 08:47; Stop 10/12/16 at 08:48; Status DC Atropine Sulfate (Atropine Inj) 1 mg STK-MED ONCE .ROUTE ; Start 10/12/16 at 08: 47; Stop 10/12/16 at 08:48; Status DC Magnesium Hydroxide (Milk Of Magnesia Liq) 30 ml DAILY PO Last administered on 10/16/16 07:55; Start 10/12/16 at 10:00 Iohexol (Omnipaque 350 Inj) 100 ml STK-MED ONCE IV Last administered on 09:43; Start 10/12/16 at 09:43; Stop 10/12/16 at 09:44; Status DC Epinephrine HCl (EPINEPHrine (1:10,000) INJ) 1 mg STK-MED ONCE .ROUTE ; Start at 14:20; Stop 10/13/16 at 14:21; Status DC Lidocaine HCl (Xylocaine 2% Inj) 100 mg STK-MED ONCE .ROUTE ; Start 10/13/16 at 14:20; Stop 10/13/16 at 14:21; Status DC Atropine Sulfate (Atropine Inj) 1 mg STK-MED ONCE .ROUTE ; Start 10/13/16 at 14: 20; Stop 10/13/16 at 14:21; Status DC Lactulose (Lactulose Liq) 30 ml DAILY PO Last administered on 10/16/16 07:55; Start 10/14/16 at 09:00 Prednisone (predniSONE LIQ) 50 mg Taper DAILY PO ; Start 10/17/16 at 09:00; Stop 10/23/16 at 08:59 Bisacodyl (Dulcolax Supp) 10 mg ONCE ONCE RECTAL Last administered on 10:27; Start 10/15/16 at 08:45; Stop 10/15/16 at 08:46; Status DC Water (Free Water) VOLUME OF WATER: ( 200 ) ML Q8HR G-TUBE Last administered on 10/16/16 05:47; Start 10/15/16 at 14:00; Stop 10/16/16 at 06:17; Status DC Metoprolol Tartrate (Lopressor Inj) 5 mg Q6H IV PUSH Last administered on 11:41; Start 10/15/16 at 13:00 Meperidine HCl (Demerol Inj) 50 mg Q8H PRN IV PUSH SHIVERING Last administered on 10/16/16 05:48; Start 10/15/16 at 12:15 Acetaminophen (Tylenol) 650 mg Q4H PRN PO FEVER; Start 10/15/16 at 12:15 Acetaminophen (Tylenol Supp) 650 mg Q4H PRN NM FEVER; Start 10/15/16 at 12:15 Water (Free Water) 200 ml Q6HR G-TUBE ; Start 10/16/16 at 07:00; Stop 10/16/16 at 07:00; Status DC Quetiapine Fumarate (SEROquel) 100 mg Q8HR PO Last administered on 10/16/16 13 :20; Start 10/16/16 at 06:15 Water (Free Water) 300 ml Q4HR G-TUBE Last administered on 10/16/16 11:41; Start 10/16/16 at 06:45 Oxycodone HCl (Roxicodone Intensol Liq) 10 mg Q4H PO Last administered on 13:30; Start 10/16/16 at 06:45 Propranolol HCl (Inderal) 10 mg Q8HR PO Last administered on 10/16/16 13:20; Start 10/16/16 at 06:33 Furosemide (Lasix Inj) 40 mg ONCE ONCE IV PUSH Last administered on 10/16/16 11:40; Start 10/16/16 at 11:30; Stop 10/16/16 at 11:31; Status DC Furosemide (Lasix Inj) 20 mg DAILY IV PUSH ; Start 10/17/16 at 09:00 Medical Decision Making MDM Remarks This document patient Reflects my encounter on 10/14/2016 when the patient was assessed during morning Rounds Last Impressions Head CT 10/13/16 0000 Signed Impressions: Service Date/Time: Thursday, October 13, 2016 14:49 - CONCLUSION: The midline shift is slightly reduced from 8.5 now 5 mm as well as the extracerebral fluid collection on the right diminished from 8 to now 5 mm. Thin left hygromas fluid collection is appreciated. Remainder the study is stable. Eddie Sena MD Neck CTA 10/12/16 0000 Signed Impressions: Service Date/Time: Wednesday, October 12, 2016 09:27 - CONCLUSION: Mild atherosclerotic changes in the proximal portions of both internal carotid arteries but no significant stenosis. Dez Petersen MD Head CTA 10/12/16 0000 Signed Impressions: Service Date/Time: Wednesday, October 12, 2016 09:27 - CONCLUSION: No evidence of acute vascular injury Red Hoffman MD Pelvis X-Ray 10/11/163 Signed Impressions: Service Date/Time: Tuesday, October 11, 2016 12:02 - CONCLUSION: Satisfactory trauma pelvis appearance. Red Hoffman MD Chest CT 10/11/163 Signed Impressions: Service Date/Time: Tuesday, October 11, 2016 12:19 - CONCLUSION: Negative for acute traumatic injury. There is no pneumothorax. Davis Nolasco MD FACR Cervical Spine CT 10/11/161212 Signed Impressions: Service Date/Time: Tuesday, October 11, 2016 12:19 - CONCLUSION: Occipital skull fracture. No evidence of acute traumatic injury in the cervical spine Red Hoffman MD Abdomen/Pelvis CT 10/11/161212 Signed Impressions: Service Date/Time: Tuesday, October 11, 2016 12:19 - CONCLUSION: Negative CT scan of the abdomen and pelvis for acute traumatic injury. Davis Nolasco MD FACR Plan Plan Remarks 56 year old male trauma alert with: Occipital skull fracture TBI with bifrontal contusions, bifrontal, right temporoparietal subdural hemorrhage, subarachnoid hemorrhage History of alcohol abuse Suspected alcohol withdrawal COPD Respiratory failure requiring mechanical ventilation Attending Statement This document patient Reflects my encounter on 10/14/2016 when the patient was assessed during morning Rounds Neuro. Continue neuro checks in a serial fashion. He seems to be on alcohol withdrawal. Status post ventriculostomy. Continue to monitor ICPs/CPP is Continue osmotic therapy with mannitol or hypertonic fluids Skull fracture. Continue non surgical treatment Respiratory. Continue full mechanical ventilation on assist control mode of ventilation. pulmonary toilette, nasotracheal suction, and breathing treatments with nebulizers. PT and OT when his condition improves Nutrition. Tube feedings Renal. Continue to monitor closely urine output, BUN and creatinine Endocrine. Continue to Monitor serial Acu checks and SSI as needed in detail ID continue to monitor for signs of infection Continue Protonix for stress ulcer prophylaxis Continue Kadeem hose and SCD's for DVT prophylaxis Chetan Cruz MD Oct 16, 2016 14:01
--- NOTE | 2016-10-16 14:05 | HHI.NSPN ---
Note Status Status: Progress Note Interval History Diagnosis This document patient Reflects my encounter on 10/15/2016 when the patient was assessed during morning Rounds trauma alert Interval History This document patient Reflects my encounter on 10/15/2016 when the patient was assessed during morning Rounds this is a 56 year old male who was brought to [place] [facility] as a trauma alert after he fell 10 feet from a ladder. His initial GCS was 6 at the scene, However subsequently improved to 11 on arrival in the ER. He was evaluated by the trauma team and subsequently underwent CT studies and transferred to the SICU. Critical care consulted. He was initially on a nonrebreather facemask and awake. Initial CT of the brain showed an occipital skull fracture, subdural and subarachnoid hemorrhage. Apparently subsequently deteriorated requiring endotracheal intubation and mechanical ventilation. He had a CT of the brain 10/11 which showed increased and extensive subdural and subarachnoid blood , ultifocal parenchymal hemorrhage in both frontal and temporal lobes, with 9 mm of leftward midline shift Neurosurgical consultation was requested. 10/14. Significantly improved. Status post ventriculostomy. ICP's stable overnight 10/15. ICP's have been much imprved. Less than 10 overnight with ventriculostomy clamped Labs, Micro, & Vital Signs Results This document patient Reflects my encounter on 10/15/2016 when the patient was assessed during morning Rounds Date Time Temp Pulse Resp B/P Pulse Ox O2 Delivery O2 Flow Rate FiO2 10/16/16 13:55 97 40 10/16/16 12:00 40 10/16/16 12:00 66 10/16/16 12:00 98.6 66 16 136/58 97 10/16/16 11:21 97 40 10/16/16 10:35 16 10/16/16 10:00 65 10/16/16 08:00 97.9 65 18 123/56 97 10/16/16 08:00 40 10/16/16 08:00 73 10/16/16 07:40 96 40 10/16/16 07:00 96 Mechanical Ventilator 10/16/16 06:00 76 10/16/16 04:00 40 10/16/16 04:00 99.2 98 19 141/80 95 10/16/16 04:00 98 10/16/16 03:22 95 40 10/16/16 02:00 93 10/16/16 00:19 94 40 10/16/16 00:02 96 40 10/16/16 00:00 91 10/16/16 00:00 98.0 91 18 148/64 96 10/16/16 00:00 40 10/15/16 22:00 83 10/15/16 20:17 93 40 10/15/16 20:17 93 40 10/15/16 20:00 40 10/15/16 20:00 98 10/15/16 20:00 98.5 98 24 154/74 99 10/15/16 19:00 99 Mechanical Ventilator 10/15/16 18:00 89 10/15/16 16:53 94 40 10/15/16 16:00 98.6 92 24 154/67 97 10/15/16 16:00 92 10/15/16 16:00 40 10/16/16 07:00 Intake Total 4742 ml Output Total 1900.0 ml Balance 2842.0 ml Constitutional This document patient Reflects my encounter on 10/15/2016 when the patient was assessed during morning Rounds Vital Signs Date Time Temp Pulse Resp B/P Pulse Ox O2 Delivery O2 Flow Rate FiO2 10/16/16 13:55 97 40 10/16/16 12:00 40 10/16/16 12:00 66 10/16/16 12:00 98.6 66 16 136/58 97 10/16/16 11:21 97 40 10/16/16 10:35 16 10/16/16 10:00 65 10/16/16 08:00 97.9 65 18 123/56 97 10/16/16 08:00 40 10/16/16 08:00 73 10/16/16 07:40 96 40 10/16/16 07:00 96 Mechanical Ventilator 10/16/16 06:00 76 10/16/16 04:00 40 10/16/16 04:00 99.2 98 19 141/80 95 10/16/16 04:00 98 10/16/16 03:22 95 40 10/16/16 02:00 93 10/16/16 00:19 94 40 10/16/16 00:02 96 40 10/16/16 00:00 91 10/16/16 00:00 98.0 91 18 148/64 96 10/16/16 00:00 40 10/15/16 22:00 83 10/15/16 20:17 93 40 10/15/16 20:17 93 40 10/15/16 20:00 40 10/15/16 20:00 98 10/15/16 20:00 98.5 98 24 154/74 99 10/15/16 19:00 99 Mechanical Ventilator 10/15/16 18:00 89 10/15/16 16:53 94 40 10/15/16 16:00 98.6 92 24 154/67 97 10/15/16 16:00 92 10/15/16 16:00 40 10/16/16 07:00 Intake Total 4742 ml Output Total 1900.0 ml Balance 2842.0 ml Review of Systems/Exam ROS This document patient Reflects my encounter on 10/15/2016 when the patient was assessed during morning Rounds Exam This document patient Reflects my encounter on 10/15/2016 when the patient was assessed during morning Rounds The patient is intubated and sedated. Cranial Nerves: Pupils equal, round, reactive to light. Eyes appear conjugated. There was no nystagmus, no papilledema. Face musculature appeared symmetrical at rest. Face sensation, olfaction, visual rosas, and hearing cannot be adequately assessed due to his neurological condition. The patient has a corneal reflex. He has a gag reflex. The sternocleidomastoid and trapezius are symmetrical. Cervical Spine: His neck is soft, supple, without nuchal rigidity. Motor: No response to pain Reflexes: Deep tendon reflexes are 1+ and symmetrical in the biceps, triceps, and brachioradialis, bilaterally, in the upper extremities. In the lower extremities, the patellar and ankles are 1+, bilaterally. Plantars silent response to plantar stimulation. There is no clonus Sensory: On examination there is no response to painful stimuli Cerebellar: Examination cannot be adequately assessed due to the patient's neurological condition. Medications Current Medications This document patient Reflects my encounter on 10/15/2016 when the patient was assessed during morning Rounds Current Medications Cefazolin Sodium/ Dextrose (Ancef 2 Gm Premix) 50 ml @ As Directed STK-MED ONCE .ROUTE ; Start 10/11/16 at 12:16; Stop 10/11/16 at 12:17; Status DC Iohexol (Omnipaque 350 Inj) 100 ml STK-MED ONCE IV Last administered on 12:28; Start 10/11/16 at 12:28; Stop 10/11/16 at 12:29; Status DC Iohexol 100 ml 100 ml STK-MED ONCE IV ; Start 10/11/16 at 12:42; Stop 10/11/16 at 12:43; Status Cancel Sodium Chloride (NS 1000 ml Inj) 1,000 ml @ 70 mls/hr [id number] IV Last administered on 10/14/16 23:37; Start 10/11/16 at 13:00; Stop 10/15/16 at 12:20 ; Status DC IV Flush (NS Flush) 2 ml UNSCH PRN IVF FLUSH AFTER USING IV ACCESS; Start 10/11 at 13:00 Enalaprilat (Vasotec Inj) 1.25 mg Q8H PRN IV SBP>180, DBP>95; Start 10/11/16 at 13:00; Stop 10/14/16 at 15:56; Status DC Ondansetron HCl (Zofran Inj) 4 mg Q6H PRN IV NAUSEA OR VOMITING; Start at 13:00 Pantoprazole Sodium (Protonix Inj) 40 mg Q24H IVP Last administered on 11:41; Start 10/11/16 at 13:00 Docusate Sodium (Colace) 100 mg BID PO Last administered on 10/16/16 07:56; Start 10/11/16 at 21:00 Magnesium Hydroxide (Milk Of Magnesia Liq) 30 ml Q6H PRN PO CONSTIPATION; Start 10/11/16 at 13:00; Stop 10/12/16 at 09:00; Status DC Miscellaneous Information 1 [id number] Last administered on 10/11/16 13:00; Start 10/11/16 at 13:00 Chlorhexidine Gluconate (Chlorhexidine 2% Cloth) 3 pack Taper DAILY@04 TOP Last administered on 10/16/16 05:42; Start 10/12/16 at 04:00; Stop 10/08/17 at 03:59 Chlorhexidine Gluconate (Chlorhexidine 2% Cloth) 3 pack UNSCH PRN TOP HYGIENIC CARE; Start 10/11/16 at 13:00 Hydralazine HCl (Apresoline Inj) 20 mg STK-MED ONCE .ROUTE Last administered on 10/11/16 13:01; Start 10/11/16 at 13:01; Stop 10/11/16 at 13:02; Status DC Hydralazine HCl (Apresoline Inj) 10 mg Q2H PRN IV PUSH SBP greater than 150mm Hg Last administered on 10/16/16 00:45; Start 10/11/16 at 13:30 Labetalol HCl 10 mg 10 mg Q4H PRN IV PUSH SBP greater than 160mm Hg Last administered on 10/15/16 11:26; Start 10/11/16 at 13:30; Stop 10/15/16 at 12:08 ; Status DC Nicardipine HCl/ Sodium Chloride (Cardene Inj/NS 250 ml Inj) 260 ml @ 0 mls/hr TITRATE IV ; Start 10/11/16 at 13:30; Stop 10/13/16 at 09:55; Status DC Albuterol/ Ipratropium (Duoneb Neb) 1 ampule Q4HR NEB NEB Last administered on 10/16/16 11:21; Start 10/11/16 at 13:45 Albuterol/ Ipratropium 1 ampule 1 ampule Q2HR NEB PRN NEB wheezing, shortness of breath; Start 10/11/16 at 13:45 Dexmedetomidine HCl (Precedex Inj) 50 ml @ 0 mls/hr TITRATE IV Last administered on 10/11/16 16:53; Start 10/11/16 at 16:30; Stop 10/12/16 at 11:11 ; Status DC Methylprednisolone Sodium Succinate 80 mg 80 mg Q12H IV PUSH Last administered on 10/16/16 05:47; Start 10/11/16 at 18:00; Stop 10/16/16 at 18:00 Multivitamins 10 ml/Folic Acid 1 mg/Sodium Chloride 510.2 ml @ 125 mls/hr Q24H IV Last administered on 10/15/16 20:19; Start 10/11/16 at 20:00; Stop at 19:59 Thiamine HCl/ Sodium Chloride (Thiamine Inj/NS Inj) 101 ml @ 100 mls/hr Q24H IV Last administered on 10/15/16 20:19; Start 10/11/16 at 20:00 Lorazepam (Ativan Inj) 2 mg Q4HR PRN IV PUSH CIWA 11-14 Last administered on 19:43; Start 10/11/16 at 17:30; Stop 10/16/16 at 06:17; Status DC Lorazepam (Ativan Inj) 2 mg Q2HR PRN IV PUSH CIWA 15-20; Start 10/11/16 at 17: 30; Stop 10/16/16 at 06:16; Status DC Haloperidol Lactate (Haldol Inj) 2 mg Q15M PRN IM SEE LABEL COMMENTS Last administered on 10/11/16 18:05; Start 10/11/16 at 17:30; Stop 10/13/16 at 09:56 ; Status DC Thiamine HCl 100 mg 100 mg DAILY IM ; Start 10/15/16 at 09:00; Status UNV Sodium Acetate/ Sodium Chloride/ Sodium Chloride (Sodium Acetate Inj/Sodium Chloride 23.4% Inj/NS 1000 ml Inj) 1,067 ml @ 20 mls/hr Q24H IV ; Start at 20:00; Stop 10/12/16 at 00:48; Status DC Mannitol 25 gm 25 gm ONCE ONCE IV Last administered on 10/11/16 19:00; Start 10/11/16 at 19:00; Stop 10/11/16 at 19:02; Status DC Levetriacetam/ Sodium Chloride (Keppra Inj/NS Inj) 105 ml @ 420 mls/hr Q12HR IV Last administered on 10/16/16 07:56; Start 10/11/16 at 21:00 Lorazepam (Ativan Inj) 4 mg ONCE ONCE IV PUSH Last administered on 10/11/16 19:00; Start 10/11/16 at 19:00; Stop 10/11/16 at 19:02; Status DC Etomidate (Amidate Inj) 20 mg ONCE ONCE IV PUSH ; Start 10/11/16 at 20:45; Stop 10/11/16 at 20:46; Status DC Rocuronium Hidalgo (Zemuron Inj) 50 mg BOLUS ONCE IV Last administered on 10/11 20:45; Start 10/11/16 at 20:45; Stop 10/11/16 at 20:46; Status DC Midazolam HCl (Versed Inj) 5 mg ONCE ONCE IV Last administered on 10/11/16 20 :45; Start 10/11/16 at 20:45; Stop 10/11/16 at 20:46; Status DC Chlorhexidine Gluconate 15 ml 15 ml BID@08,20 MT Last administered on 07:56; Start 10/12/16 at 08:00 Propofol 100 ml @ 0 mls/hr TITRATE IV Last administered on 10/16/16 13:21; Start 10/11/16 at 20:45 Midazolam HCl 100 ml @ 0 mls/hr TITRATE IV Last administered on 10/15/16 02:28 ; Start 10/11/16 at 20:45; Stop 10/16/16 at 06:16; Status DC Sodium Chloride (Sodium Chloride 3% Inj) 500 ml @ 30 mls/hr DAILY IV Last administered on 10/16/16 03:52; Start 10/11/16 at 20:45; Stop 10/16/16 at 06:17 ; Status DC Thiamine HCl (Thiamine Inj) 100 mg DAILY IM ; Start 10/12/16 at 09:00; Status UNV Fentanyl Citrate (fentaNYL INJ) 100 mcg STK-MED ONCE .ROUTE Last administered on 10/11/16 20:53; Start 10/11/16 at 20:53; Stop 10/11/16 at 20:54; Status DC Epinephrine HCl (EPINEPHrine (1:10,000) INJ) 1 mg STK-MED ONCE .ROUTE ; Start at 21:33; Stop 10/11/16 at 21:34; Status DC Lidocaine HCl (Xylocaine 2% Inj) 100 mg STK-MED ONCE .ROUTE ; Start 10/11/16 at 21:33; Stop 10/11/16 at 21:34; Status DC Atropine Sulfate 1 mg 1 mg STK-MED ONCE .ROUTE ; Start 10/11/16 at 21:33; Stop 10/11/16 at 21:34; Status DC Fentanyl Citrate (fentaNYL DRIP) 250 ml @ 0 mls/hr TITRATE IV Last administered on 10/12/16 19:22; Start 10/12/16 at 05:00 Epinephrine HCl (EPINEPHrine (1:10,000) INJ) 1 mg STK-MED ONCE .ROUTE ; Start at 08:47; Stop 10/12/16 at 08:48; Status DC Atropine Sulfate (Atropine Inj) 1 mg STK-MED ONCE .ROUTE ; Start 10/12/16 at 08: 47; Stop 10/12/16 at 08:48; Status DC Magnesium Hydroxide (Milk Of Magnesia Liq) 30 ml DAILY PO Last administered on 10/16/16 07:55; Start 10/12/16 at 10:00 Iohexol (Omnipaque 350 Inj) 100 ml STK-MED ONCE IV Last administered on 09:43; Start 10/12/16 at 09:43; Stop 10/12/16 at 09:44; Status DC Epinephrine HCl (EPINEPHrine (1:10,000) INJ) 1 mg STK-MED ONCE .ROUTE ; Start at 14:20; Stop 10/13/16 at 14:21; Status DC Lidocaine HCl (Xylocaine 2% Inj) 100 mg STK-MED ONCE .ROUTE ; Start 10/13/16 at 14:20; Stop 10/13/16 at 14:21; Status DC Atropine Sulfate (Atropine Inj) 1 mg STK-MED ONCE .ROUTE ; Start 10/13/16 at 14: 20; Stop 10/13/16 at 14:21; Status DC Lactulose (Lactulose Liq) 30 ml DAILY PO Last administered on 10/16/16 07:55; Start 10/14/16 at 09:00 Prednisone (predniSONE LIQ) 50 mg Taper DAILY PO ; Start 10/17/16 at 09:00; Stop 10/23/16 at 08:59 Bisacodyl (Dulcolax Supp) 10 mg ONCE ONCE RECTAL Last administered on 10:27; Start 10/15/16 at 08:45; Stop 10/15/16 at 08:46; Status DC Water (Free Water) VOLUME OF WATER: ( 200 ) ML Q8HR G-TUBE Last administered on 10/16/16 05:47; Start 10/15/16 at 14:00; Stop 10/16/16 at 06:17; Status DC Metoprolol Tartrate (Lopressor Inj) 5 mg Q6H IV PUSH Last administered on 11:41; Start 10/15/16 at 13:00 Meperidine HCl (Demerol Inj) 50 mg Q8H PRN IV PUSH SHIVERING Last administered on 10/16/16 05:48; Start 10/15/16 at 12:15 Acetaminophen (Tylenol) 650 mg Q4H PRN PO FEVER; Start 10/15/16 at 12:15 Acetaminophen (Tylenol Supp) 650 mg Q4H PRN OR FEVER; Start 10/15/16 at 12:15 Water (Free Water) 200 ml Q6HR G-TUBE ; Start 10/16/16 at 07:00; Stop 10/16/16 at 07:00; Status DC Quetiapine Fumarate (SEROquel) 100 mg Q8HR PO Last administered on 10/16/16 13 :20; Start 10/16/16 at 06:15 Water (Free Water) 300 ml Q4HR G-TUBE Last administered on 10/16/16 11:41; Start 10/16/16 at 06:45 Oxycodone HCl (Roxicodone Intensol Liq) 10 mg Q4H PO Last administered on 13:30; Start 10/16/16 at 06:45 Propranolol HCl (Inderal) 10 mg Q8HR PO Last administered on 10/16/16 13:20; Start 10/16/16 at 06:33 Furosemide (Lasix Inj) 40 mg ONCE ONCE IV PUSH Last administered on 10/16/16 11:40; Start 10/16/16 at 11:30; Stop 10/16/16 at 11:31; Status DC Furosemide (Lasix Inj) 20 mg DAILY IV PUSH ; Start 10/17/16 at 09:00 Medical Decision Making MDM Remarks This document patient Reflects my encounter on 10/15/2016 when the patient was assessed during morning Rounds Last Impressions Head CT 10/13/16 0000 Signed Impressions: Service Date/Time: Thursday, October 13, 2016 14:49 - CONCLUSION: The midline shift is slightly reduced from 8.5 now 5 mm as well as the extracerebral fluid collection on the right diminished from 8 to now 5 mm. Thin left hygromas fluid collection is appreciated. Remainder the study is stable. Eddie Sena MD Neck CTA 10/12/16 0000 Signed Impressions: Service Date/Time: Wednesday, October 12, 2016 09:27 - CONCLUSION: Mild atherosclerotic changes in the proximal portions of both internal carotid arteries but no significant stenosis. Dez Petersen MD Head CTA 10/12/16 0000 Signed Impressions: Service Date/Time: Wednesday, October 12, 2016 09:27 - CONCLUSION: No evidence of acute vascular injury Red Hoffman MD Pelvis X-Ray 10/11/163 Signed Impressions: Service Date/Time: Tuesday, October 11, 2016 12:02 - CONCLUSION: Satisfactory trauma pelvis appearance. Red Hoffman MD Chest CT 10/11/163 Signed Impressions: Service Date/Time: Tuesday, October 11, 2016 12:19 - CONCLUSION: Negative for acute traumatic injury. There is no pneumothorax. Davis Nolasco MD FACR Cervical Spine CT 10/11/163 Signed Impressions: Service Date/Time: Tuesday, October 11, 2016 12:19 - CONCLUSION: Occipital skull fracture. No evidence of acute traumatic injury in the cervical spine Red Hoffman MD Abdomen/Pelvis CT 10/11/163 Signed Impressions: Service Date/Time: Tuesday, October 11, 2016 12:19 - CONCLUSION: Negative CT scan of the abdomen and pelvis for acute traumatic injury. Davis Nolasco MD FACR Plan Plan Remarks This document patient Reflects my encounter on 10/15/2016 when the patient was assessed during morning Rounds 56 year old male trauma alert with: Occipital skull fracture TBI with bifrontal contusions, bifrontal, right temporoparietal subdural hemorrhage, subarachnoid hemorrhage History of alcohol abuse Suspected alcohol withdrawal COPD Respiratory failure requiring mechanical ventilation Attending Statement This document patient Reflects my encounter on 10/15/2016 when the patient was assessed during morning Rounds Neuro. Continue neuro checks in a serial fashion. He seems to be on alcohol withdrawal. Status post ventriculostomy. Continue to monitor ICPs/CPP is Continue osmotic therapy with mannitol or hypertonic fluids Skull fracture. Continue non surgical treatment Respiratory. Continue full mechanical ventilation on assist control mode of ventilation. pulmonary toilette, nasotracheal suction, and breathing treatments with nebulizers. PT and OT when his condition improves Nutrition. Tube feedings Renal. Continue to monitor closely urine output, BUN and creatinine Endocrine. Continue to Monitor serial Acu checks and SSI as needed in detail ID continue to monitor for signs of infection Continue Protonix for stress ulcer prophylaxis Continue Kadeem hosliliana and SCD's for DVT prophylaxis Chetan Cruz MD Oct 16, 2016 14:05
--- NOTE | 2016-10-16 14:16 | HHI.NSPN ---
Note Status Status: Progress Note Interval History Diagnosis trauma alert Interval History this is a 56 year old male who was brought to [facility] as a trauma alert after he fell 10 feet from a ladder. His initial GCS was 6 at the scene, However subsequently improved to 11 on arrival in the ER. He was evaluated by the trauma team and subsequently underwent CT studies and transferred to the SICU. Critical care consulted. He was initially on a nonrebreather facemask and awake. Initial CT of the brain showed an occipital skull fracture, subdural and subarachnoid hemorrhage. Apparently subsequently deteriorated requiring endotracheal intubation and mechanical ventilation. He had a CT of the brain 10/11 which showed increased and extensive subdural and subarachnoid blood , ultifocal parenchymal hemorrhage in both frontal and temporal lobes, with 9 mm of leftward midline shift Neurosurgical consultation was requested. 10/14. Significantly improved. Status post ventriculostomy. ICP's stable overnight 10/15. ICP's have been much imprved. Less than 10 overnight with ventriculostomy clamped 10/16. He is off versed. ICP's are stable. withdraws to pain all 4 extremities Labs, Micro, & Vital Signs Results Date Time Temp Pulse Resp B/P Pulse Ox O2 Delivery O2 Flow Rate FiO2 10/16/16 14:00 66 10/16/16 13:55 97 40 10/16/16 12:00 40 10/16/16 12:00 66 10/16/16 12:00 98.6 66 16 136/58 97 10/16/16 11:21 97 40 10/16/16 10:35 16 10/16/16 10:00 65 10/16/16 08:00 97.9 65 18 123/56 97 10/16/16 08:00 40 10/16/16 08:00 73 10/16/16 07:40 96 40 10/16/16 07:00 96 Mechanical Ventilator 10/16/16 06:00 76 10/16/16 04:00 40 10/16/16 04:00 99.2 98 19 141/80 95 10/16/16 04:00 98 10/16/16 03:22 95 40 10/16/16 02:00 93 10/16/16 00:19 94 40 10/16/16 00:02 96 40 10/16/16 00:00 91 10/16/16 00:00 98.0 91 18 148/64 96 10/16/16 00:00 40 10/15/16 22:00 83 10/15/16 20:17 93 40 10/15/16 20:17 93 40 10/15/16 20:00 40 10/15/16 20:00 98 10/15/16 20:00 98.5 98 24 154/74 99 10/15/16 19:00 99 Mechanical Ventilator 10/15/16 18:00 89 10/15/16 16:53 94 40 10/15/16 16:00 98.6 92 24 154/67 97 10/15/16 16:00 92 10/15/16 16:00 40 10/16/16 07:00 Intake Total 4742 ml Output Total 1900.0 ml Balance 2842.0 ml Constitutional Vital Signs Date Time Temp Pulse Resp B/P Pulse Ox O2 Delivery O2 Flow Rate FiO2 10/16/16 14:00 66 10/16/16 13:55 97 40 10/16/16 12:00 40 10/16/16 12:00 66 10/16/16 12:00 98.6 66 16 136/58 97 10/16/16 11:21 97 40 10/16/16 10:35 16 10/16/16 10:00 65 10/16/16 08:00 97.9 65 18 123/56 97 10/16/16 08:00 40 10/16/16 08:00 73 10/16/16 07:40 96 40 10/16/16 07:00 96 Mechanical Ventilator 10/16/16 06:00 76 10/16/16 04:00 40 10/16/16 04:00 99.2 98 19 141/80 95 10/16/16 04:00 98 10/16/16 03:22 95 40 10/16/16 02:00 93 10/16/16 00:19 94 40 10/16/16 00:02 96 40 10/16/16 00:00 91 10/16/16 00:00 98.0 91 18 148/64 96 10/16/16 00:00 40 10/15/16 22:00 83 10/15/16 20:17 93 40 10/15/16 20:17 93 40 10/15/16 20:00 40 10/15/16 20:00 98 10/15/16 20:00 98.5 98 24 154/74 99 10/15/16 19:00 99 Mechanical Ventilator 10/15/16 18:00 89 10/15/16 16:53 94 40 10/15/16 16:00 98.6 92 24 154/67 97 10/15/16 16:00 92 10/15/16 16:00 40 10/16/16 07:00 Intake Total 4742 ml Output Total 1900.0 ml Balance 2842.0 ml Review of Systems/Exam ROS Exam Mr Nixon is intubated and sedated. Localizes to painful stimulii with all 4 extremities. Cranial Nerves: Pupils equal, round, reactive to light. Eyes appear conjugated. There was no nystagmus, no papilledema. Face musculature appeared symmetrical at rest. Face sensation, olfaction, visual rosas, and hearing cannot be adequately assessed due to his neurological condition. The patient has a corneal reflex. He has a gag reflex. The sternocleidomastoid and trapezius are symmetrical. Cervical Spine: His neck is soft, supple, without nuchal rigidity. Motor: His muscle tone and bulk are normal. He moves purposefully all 4 extremities symmetrically. Reflexes: Deep tendon reflexes are 1+ and symmetrical in the biceps, triceps, and brachioradialis, bilaterally, in the upper extremities. In the lower extremities, the patellar and ankles are 1+, bilaterally. There is a bilateral plantar flexion response. There is no clonus or other abnormal reflexes noted. Sensory: On examination there is response to painful stimuli, localizing with both upper and lower extremities. Cerebellar: Examination cannot be adequately assessed due to the patient's neurological condition. Medications Current Medications Current Medications Cefazolin Sodium/ Dextrose (Ancef 2 Gm Premix) 50 ml @ As Directed STK-MED ONCE .ROUTE ; Start 10/11/16 at 12:16; Stop 10/11/16 at 12:17; Status DC Iohexol (Omnipaque 350 Inj) 100 ml STK-MED ONCE IV Last administered on t 12:28; Start 10/11/16 at 12:28; Stop 10/11/16 at 12:29; Status DC Iohexol 100 ml 100 ml STK-MED ONCE IV ; Start 10/11/16 at 12:42; Stop 10/11/16 at 12:43; Status Cancel Sodium Chloride (NS 1000 ml Inj) 1,000 ml @ 70 mls/hr [id number] IV Last administered on 10/14/16 23:37; Start 10/11/16 at 13:00; Stop 10/15/16 at 12:20 ; Status DC IV Flush (NS Flush) 2 ml UNSCH PRN IVF FLUSH AFTER USING IV ACCESS; Start 10/11 at 13:00 Enalaprilat (Vasotec Inj) 1.25 mg Q8H PRN IV SBP>180, DBP>95; Start 10/11/16 at 13:00; Stop 10/14/16 at 15:56; Status DC Ondansetron HCl (Zofran Inj) 4 mg Q6H PRN IV NAUSEA OR VOMITING; Start at 13:00 Pantoprazole Sodium (Protonix Inj) 40 mg Q24H IVP Last administered on 11:41; Start 10/11/16 at 13:00 Docusate Sodium (Colace) 100 mg BID PO Last administered on 10/16/16 07:56; Start 10/11/16 at 21:00 Magnesium Hydroxide (Milk Of Magnesia Liq) 30 ml Q6H PRN PO CONSTIPATION; Start 10/11/16 at 13:00; Stop 10/12/16 at 09:00; Status DC Miscellaneous Information 1 [id number] Last administered on 10/11/16 13:00; Start 10/11/16 at 13:00 Chlorhexidine Gluconate (Chlorhexidine 2% Cloth) 3 pack Taper DAILY@04 TOP Last administered on 10/16/16 05:42; Start 10/12/16 at 04:00; Stop 10/08/17 at 03:59 Chlorhexidine Gluconate (Chlorhexidine 2% Cloth) 3 pack UNSCH PRN TOP HYGIENIC CARE; Start 10/11/16 at 13:00 Hydralazine HCl (Apresoline Inj) 20 mg STK-MED ONCE .ROUTE Last administered on 10/11/16 13:01; Start 10/11/16 at 13:01; Stop 10/11/16 at 13:02; Status DC Hydralazine HCl (Apresoline Inj) 10 mg Q2H PRN IV PUSH SBP greater than 150mm Hg Last administered on 10/16/16 00:45; Start 10/11/16 at 13:30 Labetalol HCl 10 mg 10 mg Q4H PRN IV PUSH SBP greater than 160mm Hg Last administered on 10/15/16 11:26; Start 10/11/16 at 13:30; Stop 10/15/16 at 12:08 ; Status DC Nicardipine HCl/ Sodium Chloride (Cardene Inj/NS 250 ml Inj) 260 ml @ 0 mls/hr TITRATE IV ; Start 10/11/16 at 13:30; Stop 10/13/16 at 09:55; Status DC Albuterol/ Ipratropium (Duoneb Neb) 1 ampule Q4HR NEB NEB Last administered on 10/16/16 11:21; Start 10/11/16 at 13:45 Albuterol/ Ipratropium 1 ampule 1 ampule Q2HR NEB PRN NEB wheezing, shortness of breath; Start 10/11/16 at 13:45 Dexmedetomidine HCl (Precedex Inj) 50 ml @ 0 mls/hr TITRATE IV Last administered on 10/11/16 16:53; Start 10/11/16 at 16:30; Stop 10/12/16 at 11:11 ; Status DC Methylprednisolone Sodium Succinate 80 mg 80 mg Q12H IV PUSH Last administered on 10/16/16 05:47; Start 10/11/16 at 18:00; Stop 10/16/16 at 18:00 Multivitamins 10 ml/Folic Acid 1 mg/Sodium Chloride 510.2 ml @ 125 mls/hr Q24H IV Last administered on 10/15/16 20:19; Start 10/11/16 at 20:00; Stop at 19:59 Thiamine HCl/ Sodium Chloride (Thiamine Inj/NS Inj) 101 ml @ 100 mls/hr Q24H IV Last administered on 10/15/16 20:19; Start 10/11/16 at 20:00 Lorazepam (Ativan Inj) 2 mg Q4HR PRN IV PUSH CIWA 11-14 Last administered on 2/ 21/17at 19:43; Start 10/11/16 at 17:30; Stop 10/16/16 at 06:17; Status DC Lorazepam (Ativan Inj) 2 mg Q2HR PRN IV PUSH WA 15-20; Start 10/11/16 at 17: 30; Stop 10/16/16 at 06:16; Status DC Haloperidol Lactate (Haldol Inj) 2 mg Q15M PRN IM SEE LABEL COMMENTS Last administered on 10/11/16 18:05; Start 10/11/16 at 17:30; Stop 10/13/16 at 09:56 ; Status DC Thiamine HCl 100 mg 100 mg DAILY IM ; Start 10/15/16 at 09:00; Status UNV Sodium Acetate/ Sodium Chloride/ Sodium Chloride (Sodium Acetate Inj/Sodium Chloride 23.4% Inj/NS 1000 ml Inj) 1,067 ml @ 20 mls/hr Q24H IV ; Start at 20:00; Stop 10/12/16 at 00:48; Status DC Mannitol 25 gm 25 gm ONCE ONCE IV Last administered on 10/11/16 19:00; Start 10/11/16 at 19:00; Stop 10/11/16 at 19:02; Status DC Levetriacetam/ Sodium Chloride (Keppra Inj/NS Inj) 105 ml @ 420 mls/hr Q12HR IV Last administered on 10/16/16 07:56; Start 10/11/16 at 21:00 Lorazepam (Ativan Inj) 4 mg ONCE ONCE IV PUSH Last administered on 10/11/16 19:00; Start 10/11/16 at 19:00; Stop 10/11/16 at 19:02; Status DC Etomidate (Amidate Inj) 20 mg ONCE ONCE IV PUSH ; Start 10/11/16 at 20:45; Stop 10/11/16 at 20:46; Status DC Rocuronium [place] (Zemuron Inj) 50 mg BOLUS ONCE IV Last administered on 10/11 20:45; Start 10/11/16 at 20:45; Stop 10/11/16 at 20:46; Status DC Midazolam HCl (Versed Inj) 5 mg ONCE ONCE IV Last administered on 10/11/16 20 :45; Start 10/11/16 at 20:45; Stop 10/11/16 at 20:46; Status DC Chlorhexidine Gluconate 15 ml 15 ml BID@08,20 MT Last administered on 07:56; Start 10/12/16 at 08:00 Propofol 100 ml @ 0 mls/hr TITRATE IV Last administered on 10/16/16 13:21; Start 10/11/16 at 20:45 Midazolam HCl 100 ml @ 0 mls/hr TITRATE IV Last administered on 10/15/16 02:28 ; Start 10/11/16 at 20:45; Stop 10/16/16 at 06:16; Status DC Sodium Chloride (Sodium Chloride 3% Inj) 500 ml @ 30 mls/hr DAILY IV Last administered on 10/16/16 03:52; Start 10/11/16 at 20:45; Stop 10/16/16 at 06:17 ; Status DC Thiamine HCl (Thiamine Inj) 100 mg DAILY IM ; Start 10/12/16 at 09:00; Status UNV Fentanyl Citrate (fentaNYL INJ) 100 mcg STK-MED ONCE .ROUTE Last administered on 10/11/16 20:53; Start 10/11/16 at 20:53; Stop 10/11/16 at 20:54; Status DC Epinephrine HCl (EPINEPHrine (1:10,000) INJ) 1 mg STK-MED ONCE .ROUTE ; Start at 21:33; Stop 10/11/16 at 21:34; Status DC Lidocaine HCl (Xylocaine 2% Inj) 100 mg STK-MED ONCE .ROUTE ; Start 10/11/16 at 21:33; Stop 10/11/16 at 21:34; Status DC Atropine Sulfate 1 mg 1 mg STK-MED ONCE .ROUTE ; Start 10/11/16 at 21:33; Stop 10/11/16 at 21:34; Status DC Fentanyl Citrate (fentaNYL DRIP) 250 ml @ 0 mls/hr TITRATE IV Last administered on 10/12/16 19:22; Start 10/12/16 at 05:00 Epinephrine HCl (EPINEPHrine (1:10,000) INJ) 1 mg STK-MED ONCE .ROUTE ; Start at 08:47; Stop 10/12/16 at 08:48; Status DC Atropine Sulfate (Atropine Inj) 1 mg STK-MED ONCE .ROUTE ; Start 10/12/16 at 08: 47; Stop 10/12/16 at 08:48; Status DC Magnesium Hydroxide (Milk Of Magnesia Liq) 30 ml DAILY PO Last administered on 10/16/16 07:55; Start 10/12/16 at 10:00 Iohexol (Omnipaque 350 Inj) 100 ml STK-MED ONCE IV Last administered on 09:43; Start 10/12/16 at 09:43; Stop 10/12/16 at 09:44; Status DC Epinephrine HCl (EPINEPHrine (1:10,000) INJ) 1 mg STK-MED ONCE .ROUTE ; Start at 14:20; Stop 10/13/16 at 14:21; Status DC Lidocaine HCl (Xylocaine 2% Inj) 100 mg STK-MED ONCE .ROUTE ; Start 10/13/16 at 14:20; Stop 10/13/16 at 14:21; Status DC Atropine Sulfate (Atropine Inj) 1 mg STK-MED ONCE .ROUTE ; Start 10/13/16 at 14: 20; Stop 10/13/16 at 14:21; Status DC Lactulose (Lactulose Liq) 30 ml DAILY PO Last administered on 10/16/16 07:55; Start 10/14/16 at 09:00 Prednisone (predniSONE LIQ) 50 mg Taper DAILY PO ; Start 10/17/16 at 09:00; Stop 10/23/16 at 08:59 Bisacodyl (Dulcolax Supp) 10 mg ONCE ONCE RECTAL Last administered on 10:27; Start 10/15/16 at 08:45; Stop 10/15/16 at 08:46; Status DC Water (Free Water) VOLUME OF WATER: ( 200 ) ML Q8HR G-TUBE Last administered on 10/16/16 05:47; Start 10/15/16 at 14:00; Stop 10/16/16 at 06:17; Status DC Metoprolol Tartrate (Lopressor Inj) 5 mg Q6H IV PUSH Last administered on 11:41; Start 10/15/16 at 13:00 Meperidine HCl (Demerol Inj) 50 mg Q8H PRN IV PUSH SHIVERING Last administered on 10/16/16 05:48; Start 10/15/16 at 12:15 Acetaminophen (Tylenol) 650 mg Q4H PRN PO FEVER; Start 10/15/16 at 12:15 Acetaminophen (Tylenol Supp) 650 mg Q4H PRN VA FEVER; Start 10/15/16 at 12:15 Water (Free Water) 200 ml Q6HR G-TUBE ; Start 10/16/16 at 07:00; Stop 10/16/16 at 07:00; Status DC Quetiapine Fumarate (SEROquel) 100 mg Q8HR PO Last administered on 10/16/16 13 :20; Start 10/16/16 at 06:15 Water (Free Water) 300 ml Q4HR G-TUBE Last administered on 10/16/16 11:41; Start 10/16/16 at 06:45 Oxycodone HCl (Roxicodone Intensol Liq) 10 mg Q4H PO Last administered on 13:30; Start 10/16/16 at 06:45 Propranolol HCl (Inderal) 10 mg Q8HR PO Last administered on 10/16/16 13:20; Start 10/16/16 at 06:33 Furosemide (Lasix Inj) 40 mg ONCE ONCE IV PUSH Last administered on 10/16/16 11:40; Start 10/16/16 at 11:30; Stop 10/16/16 at 11:31; Status DC Furosemide (Lasix Inj) 20 mg DAILY IV PUSH ; Start 10/17/16 at 09:00 Medical Decision Making MDM Remarks Last Impressions Chest X-Ray 10/16/16 0600 Signed Impressions: Service Date/Time: Sunday, October 16, 2016 05:18 - CONCLUSION: No significant change has occurred. Hussein Miller MD Head CT 10/13/16 0000 Signed Impressions: Service Date/Time: Thursday, October 13, 2016 14:49 - CONCLUSION: The midline shift is slightly reduced from 8.5 now 5 mm as well as the extracerebral fluid collection on the right diminished from 8 to now 5 mm. Thin left hygromas fluid collection is appreciated. Remainder the study is stable. Eddie Sena MD Neck CTA 10/12/16 0000 Signed Impressions: Service Date/Time: Wednesday, October 12, 2016 09:27 - CONCLUSION: Mild atherosclerotic changes in the proximal portions of both internal carotid arteries but no significant stenosis. Dez Petersen MD Head CTA 10/12/16 0000 Signed Impressions: Service Date/Time: Wednesday, October 12, 2016 09:27 - CONCLUSION: No evidence of acute vascular injury Red Hoffman MD Pelvis X-Ray 10/11/161212 Signed Impressions: Service Date/Time: Tuesday, October 11, 2016 12:02 - CONCLUSION: Satisfactory trauma pelvis appearance. Red Hoffman MD Chest CT 10/11/161212 Signed Impressions: Service Date/Time: Tuesday, October 11, 2016 12:19 - CONCLUSION: Negative for acute traumatic injury. There is no pneumothorax. Dvais Nolasco MD FACR Cervical Spine CT 10/11/161212 Signed Impressions: Service Date/Time: Tuesday, October 11, 2016 12:19 - CONCLUSION: Occipital skull fracture. No evidence of acute traumatic injury in the cervical spine Red Hoffman MD Abdomen/Pelvis CT 10/11/161212 Signed Impressions: Service Date/Time: Tuesday, October 11, 2016 12:19 - CONCLUSION: Negative CT scan of the abdomen and pelvis for acute traumatic injury. Davis Nolasco MD FACR This document patient Reflects my encounter on 10/15/2016 when the patient was assessed during morning Rounds Last Impressions Head CT 10/13/16 0000 Signed Impressions: Service Date/Time: Thursday, October 13, 2016 14:49 - CONCLUSION: The midline shift is slightly reduced from 8.5 now 5 mm as well as the extracerebral fluid collection on the right diminished from 8 to now 5 mm. Thin left hygromas fluid collection is appreciated. Remainder the study is stable. Eddie Sena MD Neck CTA 10/12/16 0000 Signed Impressions: Service Date/Time: Wednesday, October 12, 2016 09:27 - CONCLUSION: Mild atherosclerotic changes in the proximal portions of both internal carotid arteries but no significant stenosis. Dez Petersen MD Head CTA 10/12/16 0000 Signed Impressions: Service Date/Time: Wednesday, October 12, 2016 09:27 - CONCLUSION: No evidence of acute vascular injury Red Hoffman MD Pelvis X-Ray 10/11/161212 Signed Impressions: Service Date/Time: Tuesday, October 11, 2016 12:02 - CONCLUSION: Satisfactory trauma pelvis appearance. Red Hoffman MD Chest CT 10/11/163 Signed Impressions: Service Date/Time: Tuesday, October 11, 2016 12:19 - CONCLUSION: Negative for acute traumatic injury. There is no pneumothorax. Davis Nolasco MD FACR Cervical Spine CT 10/11/161212 Signed Impressions: Service Date/Time: Tuesday, October 11, 2016 12:19 - CONCLUSION: Occipital skull fracture. No evidence of acute traumatic injury in the cervical spine Red Hoffman MD Abdomen/Pelvis CT 10/11/161212 Signed Impressions: Service Date/Time: Tuesday, October 11, 2016 12:19 - CONCLUSION: Negative CT scan of the abdomen and pelvis for acute traumatic injury. Davis Nolasco MD FACR Plan Plan Remarks 56 year old male trauma alert with: Occipital skull fracture TBI with bifrontal contusions, bifrontal, right temporoparietal subdural hemorrhage, subarachnoid hemorrhage History of alcohol abuse Suspected alcohol withdrawal COPD Respiratory failure requiring mechanical ventilation Attending Statement Neuro. Continue neuro checks. Weaning sedationl. ICP's stable. Eill discontinue ventriculostomy tomorrow Continue osmotic therapy with mannitol or hypertonic fluids Skull fracture. Continue non surgical treatment Respiratory. Continue full mechanical ventilation on assist control mode of ventilation. pulmonary toilette, nasotracheal suction, and breathing treatments with nebulizers. PT and OT when his condition improves Nutrition. Tube feedings Renal. Continue to monitor closely urine output, BUN and creatinine Endocrine. Continue to Monitor serial Acu checks and SSI as needed in detail ID continue to monitor for signs of infection Continue Protonix for stress ulcer prophylaxis Continue Kadeem hose and SCD's for DVT prophylaxis Chetan Cruz MD Oct 16, 2016 14:16
[2016-10-16] MEDS: THIAMINE INJ 100 MG in SODIUM CHLORIDE 0.9% INJ 100 ML IV SCH (20:19)
[2016-10-17] VITALS (17 sets, daily range): BP systolic 121–152; BP diastolic 53–62; PULSE 52–83; RESP 16–20; TEMP 98.4–99.4; O2SAT 91–100
[2016-10-17 00:17] LABS: BLOOD GAS BASE EXCESS 3.1 mmol/L (-2-2); BLOOD GAS HCO3 27 mmol/L (22-26); BLOOD GAS METHEMOGLOBIN 0.7 % (0-2); BLOOD GAS O2 HGB SATURATION 94 % (90-100); BLOOD GAS OXYGEN CONTENT 16.9 Vol % (12.0-20.0); BLOOD GAS PCO2 44 mmHg (38-42); BLOOD GAS PO2 86 mmHg (61-120); BLOOD GAS TOTAL HGB 12.7 G/DL (12.0-16.0); CRITICAL VALUE NO; DRAW SITE ALINE; FIO2 40 %; OXYGEN DEVICE VENTILATOR; STAT YES; TEMP CORR TO 98.6; ULNAR PULSE PRESENT; VENT SETTINGS PRVC16/550/0.7/+5
[2016-10-17] MEDS: METOPROLOL TARTRATE 5 MG/5 ML VIAL IV PUSH SCH ×2 (01:00→07:00)
[2016-10-17] MEDS: oxyCODONE HCL ORAL CONC 20 MG/ML SYRINGE PO SCH ×6 (02:36→22:53)
[2016-10-17] MEDS: RESP: ALBUTEROL 2.5 MG/IPRATROPIUM 0.5 MG NEB (SCH) NEB ×5 (03:07→21:11)
[2016-10-17] MEDS: CHLORHEXIDINE GLUCONATE 2 % 1 PACK (2 CLOTHS) TOP SCH (04:00)
[2016-10-17] MEDS: FREE WATER G-TUBE SCH ×4 (04:00→10:52)
[2016-10-17 05:14] LABS: AUTOMATED NEUTROPHIL # 11.2 TH/MM3 (1.8-7.7); BASOPHIL % 0.1 % (0.0-2.0); HEMO FLAGS DIFF FINAL; LYMPH % 10.4 % (9.0-44.0); LYMPHOCYTE # 1.5 TH/MM3 (1.0-4.8); MEAN CELL VOLUME 99.2 FL (80.0-100.0); MEAN CORPUSCULAR HEMOGLOBIN 32.6 PG (27.0-34.0); MEAN CORPUSCULAR HGB CONC 32.8 % (32.0-36.0); MONO % 12.1 % (0.0-8.0); NEUT % 77.4 % (16.0-70.0); PLATELET COUNT 207 TH/MM3 (150-450); RED BLOOD COUNT 3.93 MIL/MM3 (4.50-5.90); RED CELL DISTRIBUTION WIDTH 14.9 % (11.6-17.2); WHITE BLOOD COUNT 14.5 TH/MM3 (4.0-11.0)
[2016-10-17 05:28] LABS: BICARBONATE 30.4 MEQ/L (21.0-32.0); MAGNESIUM 2.5 MG/DL (1.5-2.5); POTASSIUM 3.9 MEQ/L (3.5-5.1)
[2016-10-17] MEDS: QUEtiapine FUMARATE 100 MG TAB PO SCH ×3 (06:26→22:47)
[2016-10-17] MEDS: PROPOFOL 1000 MG/100 ML INJ 100 ML IV SCH (06:33)
[2016-10-17] MEDS: LACTULOSE SYRUP 20 GM/30 ML CUP PO SCH (08:52)
[2016-10-17] MEDS: DOCUSATE SODIUM 100 MG CAP PO SCH ×2 (08:52→20:04)
[2016-10-17] MEDS: levETIRAcetam INJ 500 MG in SODIUM CHLORIDE 0.9% INJ 100 ML IV SCH ×2 (08:53→20:04)
[2016-10-17] MEDS: FUROSEMIDE 20 MG/2 ML VIAL IV PUSH SCH (08:53)
[2016-10-17] MEDS: MAGNESIUM HYDROXIDE SUSP 30 ML CUP PO SCH (08:53)
[2016-10-17] MEDS: CHLORHEXIDINE 0.12% (ORAL KIT) 15 ML CUP MT SCH ×2 (08:54→20:04)
[2016-10-17] MEDS: predniSONE 5 MG/5 ML CUP PO SCH (08:54)
[2016-10-17] MEDS ORDERED: niCARdipine INJ 25 MG in SODIUM CHLOR 0.9% 250 ML INJ 250 ML IV SCH (09:15)
[2016-10-17] MEDS: hydrALAZINE HCL 20 MG/ML VIAL IV PUSH PRN (09:22)
[2016-10-17] MEDS: PROPRANOLOL HCL 10 MG TAB PO SCH ×4 (09:24→22:53)
[2016-10-17] MEDS ORDERED: INFO FOR PHARMACY/READ COMMENT XX SCH (11:00)
[2016-10-17] MEDS: PANTOPRAZOLE SODIUM 40 MG VIAL IVP SCH (13:02)
[2016-10-17] MEDS: niCARdipine INJ 50 MG in SODIUM CHLOR 0.9% 250 ML INJ 230 ML IV SCH ×2 (13:02→22:47)
--- NOTE | 2016-10-17 18:50 | HHI.NSPN ---
Note Status Status: Progress Note Interval History Diagnosis trauma alert Interval History this is a 56 year old male who was brought to [facility] as a trauma alert after he fell 10 feet from a ladder. His initial GCS was 6 at the scene, However subsequently improved to 11 on arrival in the ER. He was evaluated by the trauma team and subsequently underwent CT studies and transferred to the SICU. Critical care consulted. He was initially on a nonrebreather facemask and awake. Initial CT of the brain showed an occipital skull fracture, subdural and subarachnoid hemorrhage. Apparently subsequently deteriorated requiring endotracheal intubation and mechanical ventilation. He had a CT of the brain 10/11 which showed increased and extensive subdural and subarachnoid blood , ultifocal parenchymal hemorrhage in both frontal and temporal lobes, with 9 mm of leftward midline shift Neurosurgical consultation was requested. 10/14. Significantly improved. Status post ventriculostomy. ICP's stable overnight 10/15. ICP's have been much imprved. Less than 10 overnight with ventriculostomy clamped 10/16. He is off versed. ICP's are stable. withdraws to pain all 4 extremities 10/17. Minimal response to pain. ICP;s are stable Labs, Micro, & Vital Signs Results Date Time Temp Pulse Resp B/P Pulse Ox O2 Delivery O2 Flow Rate FiO2 10/17/16 18:00 69 10/17/16 16:19 93 40 10/17/16 16:00 99.4 83 16 144/62 93 10/17/16 16:00 83 10/17/16 16:00 40 10/17/16 14:00 71 10/17/16 12:00 98.6 61 19 152/59 91 10/17/16 12:00 61 10/17/16 12:00 40 10/17/16 11:51 91 40 10/17/16 10:00 67 10/17/16 08:44 100 40 10/17/16 08:44 100 40 10/17/16 08:00 52 10/17/16 08:00 40 10/17/16 08:00 98.4 52 20 143/53 96 10/17/16 07:00 95 Mechanical Ventilator 10/17/16 06:00 60 10/17/16 04:00 40 10/17/16 04:00 66 10/17/16 04:00 98.7 66 20 121/62 94 10/17/16 03:09 93 40 10/17/16 02:00 66 10/17/16 00:00 40 10/17/16 00:00 66 10/17/16 00:00 98.7 66 20 131/57 97 10/16/16 23:58 97 40 10/16/16 22:00 66 10/16/16 20:41 40 10/16/16 20:41 93 40 10/16/16 20:00 98.2 64 18 150/57 93 10/16/16 20:00 40 10/16/16 20:00 68 10/16/16 19:00 95 Mechanical Ventilator 10/17/16 07:00 Intake Total 3436 ml Output Total 2550 ml Balance 886 ml Constitutional Vital Signs Date Time Temp Pulse Resp B/P Pulse Ox O2 Delivery O2 Flow Rate FiO2 10/17/16 18:00 69 10/17/16 16:19 93 40 10/17/16 16:00 99.4 83 16 144/62 93 10/17/16 16:00 83 10/17/16 16:00 40 10/17/16 14:00 71 10/17/16 12:00 98.6 61 19 152/59 91 10/17/16 12:00 61 10/17/16 12:00 40 10/17/16 11:51 91 40 10/17/16 10:00 67 10/17/16 08:44 100 40 10/17/16 08:44 100 40 10/17/16 08:00 52 10/17/16 08:00 40 10/17/16 08:00 98.4 52 20 143/53 96 10/17/16 07:00 95 Mechanical Ventilator 10/17/16 06:00 60 10/17/16 04:00 40 10/17/16 04:00 66 10/17/16 04:00 98.7 66 20 121/62 94 10/17/16 03:09 93 40 10/17/16 02:00 66 10/17/16 00:00 40 10/17/16 00:00 66 10/17/16 00:00 98.7 66 20 131/57 97 10/16/16 23:58 97 40 10/16/16 22:00 66 10/16/16 20:41 40 10/16/16 20:41 93 40 10/16/16 20:00 98.2 64 18 150/57 93 10/16/16 20:00 40 10/16/16 20:00 68 10/16/16 19:00 95 Mechanical Ventilator 10/17/16 07:00 Intake Total 3436 ml Output Total 2550 ml Balance 886 ml Review of Systems/Exam ROS Exam Mr Nixon is intubated and sedated. Localizes to painful stimulii with all 4 extremities. Cranial Nerves: Pupils equal, round, reactive to light. Eyes appear conjugated. There was no nystagmus, no papilledema. Face musculature appeared symmetrical at rest. Face sensation, olfaction, visual rosas, and hearing cannot be adequately assessed due to his neurological condition. The patient has a corneal reflex. He has a gag reflex. The sternocleidomastoid and trapezius are symmetrical. Cervical Spine: His neck is soft, supple, without nuchal rigidity. Motor: His muscle tone and bulk are normal. He moves purposefully all 4 extremities symmetrically. Reflexes: Deep tendon reflexes are 1+ and symmetrical in the biceps, triceps, and brachioradialis, bilaterally, in the upper extremities. In the lower extremities, the patellar and ankles are 1+, bilaterally. There is a bilateral plantar flexion response. There is no clonus or other abnormal reflexes noted. Sensory: On examination there is response to painful stimuli, localizing with both upper and lower extremities. Cerebellar: Examination cannot be adequately assessed due to the patient's neurological condition. Medications Current Medications Current Medications Cefazolin Sodium/ Dextrose (Ancef 2 Gm Premix) 50 ml @ As Directed STK-MED ONCE .ROUTE ; Start 10/11/16 at 12:16; Stop 10/11/16 at 12:17; Status DC Iohexol (Omnipaque 350 Inj) 100 ml STK-MED ONCE IV Last administered on t 12:28; Start 10/11/16 at 12:28; Stop 10/11/16 at 12:29; Status DC Iohexol 100 ml 100 ml STK-MED ONCE IV ; Start 10/11/16 at 12:42; Stop 10/11/16 at 12:43; Status Cancel Sodium Chloride (NS 1000 ml Inj) 1,000 ml @ 70 mls/hr [id number] IV Last administered on 10/14/16 23:37; Start 10/11/16 at 13:00; Stop 10/15/16 at 12:20 ; Status DC IV Flush (NS Flush) 2 ml UNSCH PRN IVF FLUSH AFTER USING IV ACCESS; Start 10/11 at 13:00 Enalaprilat (Vasotec Inj) 1.25 mg Q8H PRN IV SBP>180, DBP>95; Start 10/11/16 at 13:00; Stop 10/14/16 at 15:56; Status DC Ondansetron HCl (Zofran Inj) 4 mg Q6H PRN IV NAUSEA OR VOMITING; Start at 13:00 Pantoprazole Sodium (Protonix Inj) 40 mg Q24H IVP Last administered on 13:02; Start 10/11/16 at 13:00 Docusate Sodium (Colace) 100 mg BID PO Last administered on 10/17/16 08:52; Start 10/11/16 at 21:00 Magnesium Hydroxide (Milk Of Magnesia Liq) 30 ml Q6H PRN PO CONSTIPATION; Start 10/11/16 at 13:00; Stop 10/12/16 at 09:00; Status DC Miscellaneous Information 1 [id number] Last administered on 10/11/16 13:00; Start 10/11/16 at 13:00 Chlorhexidine Gluconate (Chlorhexidine 2% Cloth) Taper DAILY@04 TOP Last administered on 10/16/16 05:42; Start 10/12/16 at 04:00; Stop 10/08/17 at 03:59 Chlorhexidine Gluconate (Chlorhexidine 2% Cloth) 3 pack UNSCH PRN TOP HYGIENIC CARE; Start 10/11/16 at 13:00 Hydralazine HCl (Apresoline Inj) 20 mg STK-MED ONCE .ROUTE Last administered on 10/11/16 13:01; Start 10/11/16 at 13:01; Stop 10/11/16 at 13:02; Status DC Hydralazine HCl (Apresoline Inj) 10 mg Q2H PRN IV PUSH SBP greater than 150mm Hg Last administered on 10/17/16 09:22; Start 10/11/16 at 13:30 Labetalol HCl 10 mg 10 mg Q4H PRN IV PUSH SBP greater than 160mm Hg Last administered on 10/15/16 11:26; Start 10/11/16 at 13:30; Stop 10/15/16 at 12:08 ; Status DC Nicardipine HCl/ Sodium Chloride (Cardene Inj/NS 250 ml Inj) 260 ml @ 0 mls/hr TITRATE IV ; Start 10/11/16 at 13:30; Stop 10/13/16 at 09:55; Status DC Albuterol/ Ipratropium (Duoneb Neb) 1 ampule Q4HR NEB NEB Last administered on 10/17/16 16:18; Start 10/11/16 at 13:45 Albuterol/ Ipratropium 1 ampule 1 ampule Q2HR NEB PRN NEB wheezing, shortness of breath; Start 10/11/16 at 13:45 Dexmedetomidine HCl (Precedex Inj) 50 ml @ 0 mls/hr TITRATE IV Last administered on 10/11/16 16:53; Start 10/11/16 at 16:30; Stop 10/12/16 at 11:11 ; Status DC Methylprednisolone Sodium Succinate 80 mg 80 mg Q12H IV PUSH Last administered on 10/16/16 18:30; Start 10/11/16 at 18:00; Stop 10/16/16 at 18:00; Status DC Multivitamins 10 ml/Folic Acid 1 mg/Sodium Chloride 510.2 ml @ 125 mls/hr Q24H IV Last administered on 10/15/16 20:19; Start 10/11/16 at 20:00; Stop at 19:59; Status DC Thiamine HCl/ Sodium Chloride (Thiamine Inj/NS Inj) 101 ml @ 100 mls/hr Q24H IV Last administered on 10/16/16 20:19; Start 10/11/16 at 20:00 Lorazepam (Ativan Inj) 2 mg Q4HR PRN IV PUSH CIWA 11-14 Last administered on 19:43; Start 10/11/16 at 17:30; Stop 10/16/16 at 06:17; Status DC Lorazepam (Ativan Inj) 2 mg Q2HR PRN IV PUSH CIWA 15-20; Start 10/11/16 at 17: 30; Stop 10/16/16 at 06:16; Status DC Haloperidol Lactate (Haldol Inj) 2 mg Q15M PRN IM SEE LABEL COMMENTS Last administered on 10/11/16 18:05; Start 10/11/16 at 17:30; Stop 10/13/16 at 09:56 ; Status DC Thiamine HCl 100 mg 100 mg DAILY IM ; Start 10/15/16 at 09:00; Status UNV Sodium Acetate/ Sodium Chloride/ Sodium Chloride (Sodium Acetate Inj/Sodium Chloride 23.4% Inj/NS 1000 ml Inj) 1,067 ml @ 20 mls/hr Q24H IV ; Start at 20:00; Stop 10/12/16 at 00:48; Status DC Mannitol 25 gm 25 gm ONCE ONCE IV Last administered on 10/11/16 19:00; Start 10/11/16 at 19:00; Stop 10/11/16 at 19:02; Status DC Levetriacetam/ Sodium Chloride (Keppra Inj/NS Inj) 105 ml @ 420 mls/hr Q12HR IV Last administered on 10/17/16 08:53; Start 10/11/16 at 21:00 Lorazepam (Ativan Inj) 4 mg ONCE ONCE IV PUSH Last administered on 10/11/16 19:00; Start 10/11/16 at 19:00; Stop 10/11/16 at 19:02; Status DC Etomidate (Amidate Inj) 20 mg ONCE ONCE IV PUSH ; Start 10/11/16 at 20:45; Stop 10/11/16 at 20:46; Status DC Rocuronium [place] (Zemuron Inj) 50 mg BOLUS ONCE IV Last administered on 10/11 20:45; Start 10/11/16 at 20:45; Stop 10/11/16 at 20:46; Status DC Midazolam HCl (Versed Inj) 5 mg ONCE ONCE IV Last administered on 10/11/16 20 :45; Start 10/11/16 at 20:45; Stop 10/11/16 at 20:46; Status DC Chlorhexidine Gluconate 15 ml 15 ml BID@08,20 MT Last administered on 2/26/ 17at 08:54; Start 10/12/16 at 08:00 Propofol 100 ml @ 0 mls/hr TITRATE IV Last administered on 10/17/16 06:33; Start 10/11/16 at 20:45 Midazolam HCl 100 ml @ 0 mls/hr TITRATE IV Last administered on 10/15/16 02:28 ; Start 10/11/16 at 20:45; Stop 10/16/16 at 06:16; Status DC Sodium Chloride (Sodium Chloride 3% Inj) 500 ml @ 30 mls/hr DAILY IV Last administered on 10/16/16 03:52; Start 10/11/16 at 20:45; Stop 10/16/16 at 06:17 ; Status DC Thiamine HCl (Thiamine Inj) 100 mg DAILY IM ; Start 10/12/16 at 09:00; Status UNV Fentanyl Citrate (fentaNYL INJ) 100 mcg STK-MED ONCE .ROUTE Last administered on 10/11/16 20:53; Start 10/11/16 at 20:53; Stop 10/11/16 at 20:54; Status DC Epinephrine HCl (EPINEPHrine (1:10,000) INJ) 1 mg STK-MED ONCE .ROUTE ; Start at 21:33; Stop 10/11/16 at 21:34; Status DC Lidocaine HCl (Xylocaine 2% Inj) 100 mg STK-MED ONCE .ROUTE ; Start 10/11/16 at 21:33; Stop 10/11/16 at 21:34; Status DC Atropine Sulfate 1 mg 1 mg STK-MED ONCE .ROUTE ; Start 10/11/16 at 21:33; Stop 10/11/16 at 21:34; Status DC Fentanyl Citrate (fentaNYL DRIP) 250 ml @ 0 mls/hr TITRATE IV Last administered on 10/12/16 19:22; Start 10/12/16 at 05:00; Stop 10/17/16 at 11:09 ; Status DC Epinephrine HCl (EPINEPHrine (1:10,000) INJ) 1 mg STK-MED ONCE .ROUTE ; Start at 08:47; Stop 10/12/16 at 08:48; Status DC Atropine Sulfate (Atropine Inj) 1 mg STK-MED ONCE .ROUTE ; Start 10/12/16 at 08: 47; Stop 10/12/16 at 08:48; Status DC Magnesium Hydroxide (Milk Of Magnesia Liq) 30 ml DAILY PO Last administered on 10/17/16 08:53; Start 10/12/16 at 10:00 Iohexol (Omnipaque 350 Inj) 100 ml STK-MED ONCE IV Last administered on 09:43; Start 10/12/16 at 09:43; Stop 10/12/16 at 09:44; Status DC Epinephrine HCl (EPINEPHrine (1:10,000) INJ) 1 mg STK-MED ONCE .ROUTE ; Start at 14:20; Stop 10/13/16 at 14:21; Status DC Lidocaine HCl (Xylocaine 2% Inj) 100 mg STK-MED ONCE .ROUTE ; Start 10/13/16 at 14:20; Stop 10/13/16 at 14:21; Status DC Atropine Sulfate (Atropine Inj) 1 mg STK-MED ONCE .ROUTE ; Start 10/13/16 at 14: 20; Stop 10/13/16 at 14:21; Status DC Lactulose (Lactulose Liq) 30 ml DAILY PO Last administered on 10/17/16 08:52; Start 10/14/16 at 09:00 Prednisone (predniSONE LIQ) 50 mg Taper DAILY PO Last administered on 08:54; Start 10/17/16 at 09:00; Stop 10/23/16 at 08:59 Bisacodyl (Dulcolax Supp) 10 mg ONCE ONCE RECTAL Last administered on 10:27; Start 10/15/16 at 08:45; Stop 10/15/16 at 08:46; Status DC Water (Free Water) VOLUME OF WATER: ( 200 ) ML Q8HR G-TUBE Last administered on 10/16/16 05:47; Start 10/15/16 at 14:00; Stop 10/16/16 at 06:17; Status DC Metoprolol Tartrate (Lopressor Inj) 5 mg Q6H IV PUSH Last administered on 11:41; Start 10/15/16 at 13:00; Status Hold Meperidine HCl (Demerol Inj) 50 mg Q8H PRN IV PUSH SHIVERING Last administered on 10/16/16 21:10; Start 10/15/16 at 12:15 Acetaminophen (Tylenol) 650 mg Q4H PRN PO FEVER; Start 10/15/16 at 12:15 Acetaminophen (Tylenol Supp) 650 mg Q4H PRN DE FEVER; Start 10/15/16 at 12:15 Water (Free Water) 200 ml Q6HR G-TUBE ; Start 10/16/16 at 07:00; Stop 10/16/16 at 07:00; Status DC Quetiapine Fumarate (SEROquel) 100 mg Q8HR PO Last administered on 10/17/16 13 :54; Start 10/16/16 at 06:15 Water (Free Water) 300 ml Q4HR G-TUBE Last administered on 10/17/16 10:52; Start 10/16/16 at 06:45; Stop 10/17/16 at 11:09; Status DC Oxycodone HCl (Roxicodone Intensol Liq) 10 mg Q4H PO Last administered on 18:25; Start 10/16/16 at 06:45 Propranolol HCl (Inderal) 10 mg Q8HR PO Last administered on 10/17/16 09:24; Start 10/16/16 at 06:33; Stop 10/17/16 at 09:54; Status DC Furosemide (Lasix Inj) 40 mg ONCE ONCE IV PUSH Last administered on 10/16/16 11:40; Start 10/16/16 at 11:30; Stop 10/16/16 at 11:31; Status DC Furosemide (Lasix Inj) 20 mg DAILY IV PUSH Last administered on 10/17/16 08:53 ; Start 10/17/16 at 09:00 Nicardipine HCl 25 mg 25 mg STK-MED ONCE .ROUTE ; Start 10/17/16 at 09:36; Stop 10/17/16 at 09:37; Status DC Nicardipine HCl/ Sodium Chloride (Cardene Inj/NS 250 ml Inj) 260 ml @ 0 mls/hr TITRATE IV Last administered on 10/17/16 10:37; Start 10/17/16 at 09:15; Stop 10/17/16 at 11:39; Status DC Propranolol HCl (Inderal) 10 mg Q6HR PO Last administered on 10/17/16 18:00; Start 10/17/16 at 12:00 Info 1 1 UNSCH XX ; Start 10/17/16 at 11:00 Nicardipine HCl/ Sodium Chloride (Cardene Inj/NS 250 ml Inj) 250 ml @ 0 mls/hr TITRATE IV Last administered on 10/17/16t 13:02; Start 10/17/16 at 11:45 Medical Decision Making MDM Remarks Last Impressions Chest X-Ray 10/16/16 0600 Signed Impressions: Service Date/Time: Sunday, October 16, 2016 05:18 - CONCLUSION: No significant change has occurred. [facility] MD Head CT 10/13/16 0000 Signed Impressions: Service Date/Time: Thursday, October 13, 2016 14:49 - CONCLUSION: The midline shift is slightly reduced from 8.5 now 5 mm as well as the extracerebral fluid collection on the right diminished from 8 to now 5 mm. Thin left hygromas fluid collection is appreciated. Remainder the study is stable. Eddie Sena MD Neck CTA 10/12/16 0000 Signed Impressions: Service Date/Time: Wednesday, October 12, 2016 09:27 - CONCLUSION: Mild atherosclerotic changes in the proximal portions of both internal carotid arteries but no significant stenosis. Dez Petersen MD Head CTA 10/12/16 0000 Signed Impressions: Service Date/Time: Wednesday, October 12, 2016 09:27 - CONCLUSION: No evidence of acute vascular injury Red Hoffman MD Pelvis X-Ray 10/11/16 1213 Signed Impressions: Service Date/Time: Tuesday, October 11, 2016 12:02 - CONCLUSION: Satisfactory trauma pelvis appearance. Red Hoffman MD Chest CT 10/11/16 1213 Signed Impressions: Service Date/Time: Tuesday, October 11, 2016 12:19 - CONCLUSION: Negative for acute traumatic injury. There is no pneumothorax. Davis Nolasco MD FACR Cervical Spine CT 10/11/16 1213 Signed Impressions: Service Date/Time: Tuesday, October 11, 2016 12:19 - CONCLUSION: Occipital skull fracture. No evidence of acute traumatic injury in the cervical spine Red Hoffman MD Abdomen/Pelvis CT 10/11/16 1213 Signed Impressions: Service Date/Time: Tuesday, October 11, 2016 12:19 - CONCLUSION: Negative CT scan of the abdomen and pelvis for acute traumatic injury. Davis Nolasco MD FACR Last Impressions Chest X-Ray 10/16/16 0600 Signed Impressions: Service Date/Time: Sunday, October 16, 2016 05:18 - CONCLUSION: No significant change has occurred. [facility] MD Head CT 10/13/16 0000 Signed Impressions: Service Date/Time: Thursday, October 13, 2016 14:49 - CONCLUSION: The midline shift is slightly reduced from 8.5 now 5 mm as well as the extracerebral fluid collection on the right diminished from 8 to now 5 mm. Thin left hygromas fluid collection is appreciated. Remainder the study is stable. Eddie Sena MD Neck CTA 10/12/16 0000 Signed Impressions: Service Date/Time: Wednesday, October 12, 2016 09:27 - CONCLUSION: Mild atherosclerotic changes in the proximal portions of both internal carotid arteries but no significant stenosis. Dez Petersen MD Head CTA 10/12/16 0000 Signed Impressions: Service Date/Time: Wednesday, October 12, 2016 09:27 - CONCLUSION: No evidence of acute vascular injury Red Hoffman MD Pelvis X-Ray 10/11/16 121 Signed Impressions: Service Date/Time: Tuesday, October 11, 2016 12:02 - CONCLUSION: Satisfactory trauma pelvis appearance. Red Hoffman MD Chest CT 10/11/16 1213 Signed Impressions: Service Date/Time: Tuesday, October 11, 2016 12:19 - CONCLUSION: Negative for acute traumatic injury. There is no pneumothorax. Davis Nolasco MD FACR Cervical Spine CT 10/11/16 1213 Signed Impressions: Service Date/Time: Tuesday, October 11, 2016 12:19 - CONCLUSION: Occipital skull fracture. No evidence of acute traumatic injury in the cervical spine Red Hoffman MD Abdomen/Pelvis CT 10/11/16 1213 Signed Impressions: Service Date/Time: Tuesday, October 11, 2016 12:19 - CONCLUSION: Negative CT scan of the abdomen and pelvis for acute traumatic injury. Davis Nolasco MD FACR This document patient Reflects my encounter on 10/15/2016 when the patient was assessed during morning Rounds Last Impressions Head CT 10/13/16 0000 Signed Impressions: Service Date/Time: Thursday, October 13, 2016 14:49 - CONCLUSION: The midline shift is slightly reduced from 8.5 now 5 mm as well as the extracerebral fluid collection on the right diminished from 8 to now 5 mm. Thin left hygromas fluid collection is appreciated. Remainder the study is stable. Eddie Sena MD Neck CTA 10/12/16 0000 Signed Impressions: Service Date/Time: Wednesday, October 12, 2016 09:27 - CONCLUSION: Mild atherosclerotic changes in the proximal portions of both internal carotid arteries but no significant stenosis. Dez Petersen MD Head CTA 10/12/16 0000 Signed Impressions: Service Date/Time: Wednesday, October 12, 2016 09:27 - CONCLUSION: No evidence of acute vascular injury Red Hoffman MD Pelvis X-Ray 10/11/16 121 Signed Impressions: Service Date/Time: Tuesday, October 11, 2016 12:02 - CONCLUSION: Satisfactory trauma pelvis appearance. Red Hoffman MD Chest CT 10/11/16 121 Signed Impressions: Service Date/Time: Tuesday, October 11, 2016 12:19 - CONCLUSION: Negative for acute traumatic injury. There is no pneumothorax. Davis Nolasco MD FACR Cervical Spine CT 10/11/163 Signed Impressions: Service Date/Time: Tuesday, October 11, 2016 12:19 - CONCLUSION: Occipital skull fracture. No evidence of acute traumatic injury in the cervical spine Red Hoffman MD Abdomen/Pelvis CT 10/11/16 1213 Signed Impressions: Service Date/Time: Tuesday, October 11, 2016 12:19 - CONCLUSION: Negative CT scan of the abdomen and pelvis for acute traumatic injury. Davis Nolasco MD FACR Plan Plan Remarks 56 year old male trauma alert with: Occipital skull fracture TBI with bifrontal contusions, bifrontal, right temporoparietal subdural hemorrhage, subarachnoid hemorrhage History of alcohol abuse Suspected alcohol withdrawal COPD Respiratory failure requiring mechanical ventilation Attending Statement Neuro. Continue neuro checks. Weaning sedationl. ICP's stable. Eill discontinue ventriculostomy today. CT brain tomorrow Continue osmotic therapy with mannitol or hypertonic fluids Skull fracture. Continue non surgical treatment Respiratory. Continue full mechanical ventilation on assist control mode of ventilation. pulmonary toilette, nasotracheal suction, and breathing treatments with nebulizers. PT and OT when his condition improves Nutrition. Tube feedings Renal. Continue to monitor closely urine output, BUN and creatinine Endocrine. Continue to Monitor serial Acu checks and SSI as needed in detail ID continue to monitor for signs of infection Continue Protonix for stress ulcer prophylaxis Continue Kadeem hosliliana and SCD's for DVT prophylaxis Chetan Cruz MD Oct 17, 2016 18:49
--- NOTE | 2016-10-17 19:30 | HHI.CCPN ---
Subjective Brief History Elderly male who was brought in as a trauma alert after he fell 10 feet from a ladder. GCS 6 initially at the scene subsequently improved to 11 on arrival in the ER. Patient was evaluated by trauma team and subsequently underwent imaging studies and transferred to the ICU. Imaging studies revealed an occipital skull fracture, subdural and subarachnoid blood. Patient was awake and alert at the time of evaluation and following commands and moving all 4 extremities. He could not hear and had some speech difficulty at the time of my evaluation with difficulty in communication though was following commands appropriately. C spine cleared by Neurosurgery at the time of my evaluation. Patient developed worsening agitation despite Precedex last evening. Since then patient had to be intubated ventilated and is currently on propofol fentanyl and Versed drips to keep him down When these are discontinued or less and patient starts biting on the to and becomes restless moves all [address] scan of the head reveals worsening subdural and subarachnoid hemorrhage and the midline shift of about 8 mm 24 Hour Review/Hospital Course Patient has worsened in last 24 hours Repeat CAT scan reveals worsening subdural bleeding over the right parieto- occipital area and [id number] shift of about 8 mm Patient is elderly and a heavy drinker and therefore has atrophy of the brain so there is some more space that allows for compartment pressure IE ICP to remain low We will discuss with neurosurgery about placing ICP monitor or even draining subdural hematoma at this time. Patient remains hyperventilated and on hypertonic saline nonetheless will require bolt placement to assess for ICP and the effectiveness of the therapy 10/13/2016 Patient neurologically unchanged Repeat CAT scan shows some decrease in subdural hematoma and slight decrease in shift yet still severe brain injury At the family's request a second opinion neurosurgery consult was placed and second neurosurgeon has evaluated the patient She will have a long-term recovery here and have discussed this at length with the family Patient may need tracheostomy and PEG tube placement as the part of the appropriate treatment 10/14/2016 Patient with a severe brain injury and subdural hematoma and intraparenchymal hemorrhage Underwent yesterday ventriculostomy placement ICP is within physiologic range at this time and the subdural hematoma size has somewhat decreased There is no change in the neurologic status over the last 24 hours 10/17/16 No change in neurologic status Patient withdraws to pain but does not open eyes or communicates in anyway All sedation has been removed and ventilatory settings been gradually decreased in order to allow for the patient to tow picker his respirations Objective Vital Signs Date Time Temp Pulse Resp B/P Pulse Ox O2 Delivery O2 Flow Rate FiO2 10/17/16 18:00 69 10/17/16 16:19 93 40 10/17/16 16:00 99.4 16 144/62 10/17/16 07:00 Mechanical Ventilator Intake and Output 10/16/16 10/16/16 10/17/16 08:00 16:00 00:00 Intake Total 1686 ml 1120 ml 1165 ml Output Total 700 ml 1350 ml 750 ml Balance 986 ml -230 ml 415 ml Result Diagram: 10/17/16 0440 10/17/16 1300 Other Results Microbiology Date/Time Procedure Status Source Growth 10/15/16 12:30 Gram Stain - Final Complete Sputum Endotracheal 10/15/16 12:30 Sputum Culture - Final Complete Haemophilus Influenzae 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 I reviewed and agree with the findings presented. I attest that I had a [id number] encounter with the patient on the same day, and personally performed and documented my assessment and findings in the medical record. Critical care time 40 minutes. Sherry Parikh MD Oct 17, 2016 19:29
[2016-10-17] MEDS: THIAMINE INJ 100 MG in SODIUM CHLORIDE 0.9% INJ 100 ML IV SCH (20:10)
[2016-10-18] VITALS (18 sets, daily range): BP systolic 129–161; BP diastolic 50–64; PULSE 54–95; RESP 16–32; TEMP 97.9–98.8; O2SAT 91–100
[2016-10-18] MEDS: RESP: ALBUTEROL 2.5 MG/IPRATROPIUM 0.5 MG NEB (SCH) NEB ×4 (00:48→16:45)
[2016-10-18] MEDS: oxyCODONE HCL ORAL CONC 20 MG/ML SYRINGE PO SCH ×4 (03:11→14:45)
[2016-10-18] MEDS: CHLORHEXIDINE GLUCONATE 2 % 1 PACK (2 CLOTHS) TOP SCH (03:11)
[2016-10-18 03:56] LABS: AUTOMATED NEUTROPHIL # 11.9 TH/MM3 (1.8-7.7); BASOPHIL % 0.2 % (0.0-2.0); EOSINOPHIL % 0.2 % (0.0-4.0); HEMATOCRIT 38.7 % (39.0-51.0); LYMPH % 10.4 % (9.0-44.0); LYMPHOCYTE # 1.7 TH/MM3 (1.0-4.8); MEAN CELL VOLUME 98.7 FL (80.0-100.0); MEAN CORPUSCULAR HEMOGLOBIN 32.8 PG (27.0-34.0); MEAN CORPUSCULAR HGB CONC 33.2 % (32.0-36.0); MONO % 14.9 % (0.0-8.0); NEUT % 74.3 % (16.0-70.0); PLATELET COUNT 222 TH/MM3 (150-450); RED BLOOD COUNT 3.92 MIL/MM3 (4.50-5.90); RED CELL DISTRIBUTION WIDTH 14.8 % (11.6-17.2); WHITE BLOOD COUNT 16.1 TH/MM3 (4.0-11.0)
[2016-10-18 03:58] LABS: HEMO FLAGS AUTO DIFF
[2016-10-18 04:19] LABS: BICARBONATE 31.3 MEQ/L (21.0-32.0); MAGNESIUM 2.6 MG/DL (1.5-2.5); POTASSIUM 4.2 MEQ/L (3.5-5.1)
[2016-10-18 04:22] LABS: SCAN/DIFF AUTO DIFF CONFIRMED
[2016-10-18 04:30] LABS: BLOOD GAS BASE EXCESS 4.4 mmol/L (-2-2); BLOOD GAS CARBOXYHEMOGLOBIN 1.1 % (0-4); BLOOD GAS HCO3 29 mmol/L (22-26); BLOOD GAS METHEMOGLOBIN 0.8 % (0-2); BLOOD GAS O2 HGB SATURATION 90 % (90-100); BLOOD GAS OXYGEN CONTENT 15.9 Vol % (12.0-20.0); BLOOD GAS PCO2 43 mmHg (38-42); BLOOD GAS PO2 66 mmHg (61-120); BLOOD GAS TOTAL HGB 12.6 G/DL (12.0-16.0); CRITICAL VALUE NO; OXYGEN DEVICE VENTILATOR; TEMP CORR TO 98.6
[2016-10-18 04:31] LABS: DRAW SITE ALINE; FIO2 40 %; STAT NO
[2016-10-18] MEDS: QUEtiapine FUMARATE 100 MG TAB PO SCH ×2 (05:23→14:36)
[2016-10-18] MEDS: PROPRANOLOL HCL 10 MG TAB PO SCH ×3 (05:23→16:59)
--- NOTE | 2016-10-18 05:32 | RADRPT ---
EXAM DATE/TIME: 10/18/2016 04:46 [facility] COMPARISON: No previous studies available for comparison. INDICATIONS : Follow up bleed. RADIATION DOSE: 53.97 CTDIvol (mGy) MEDICAL HISTORY : Hypertension. Cardiovascular disease SURGICAL HISTORY : None. ENCOUNTER: Subsequent ACUITY: 1 week PAIN SCALE: Non-responsive LOCATION: cranial TECHNIQUE: Multiple contiguous axial images were obtained of the head. Using automated exposure control and adj ustment of the mA and/or kV according to patient size, radiation dose was kept as low as reasonably a chievable to obtain optimal diagnostic quality images. FINDINGS: Compare October 13. Since the prior exam right-sided subdural hematoma is increased in thickness fro m about 5 mm to 12 mm and right to left midline shift has increased from about 4 mm to 12 mm. There a re evolving hemorrhagic contusions in both frontal lobes. There is also subdural hemorrhage over the tentorium and some subarachnoid hemorrhage. Hemorrhagic contusions also present in the temporal lobes bilaterally. Basilar skull fracture stable. No fluid in paranasal sinuses. CONCLUSION: 1. Increase in thickness of right-sided subdural hematoma from about 5 mm to 12 mm since October 13. Increase in mass effect with midline shift of 12 mm compared with previous measurement of 4 mm on No . The evolving hemorrhagic contusions bilaterally as above. Tyrel Olmos MD on October 18, 2016 at 5:26 Board Certified Radiologist. This report was verified electronically.
[2016-10-18] MEDS: niCARdipine INJ 50 MG in SODIUM CHLOR 0.9% 250 ML INJ 230 ML IV SCH ×2 (06:28→23:16)
[2016-10-18] MEDS: LACTULOSE SYRUP 20 GM/30 ML CUP PO SCH (08:43)
[2016-10-18] MEDS: FUROSEMIDE 20 MG/2 ML VIAL IV PUSH SCH (08:43)
[2016-10-18] MEDS: MAGNESIUM HYDROXIDE SUSP 30 ML CUP PO SCH (08:43)
[2016-10-18] MEDS: DOCUSATE SODIUM 100 MG CAP PO SCH ×2 (08:43→21:13)
[2016-10-18] MEDS: levETIRAcetam INJ 500 MG in SODIUM CHLORIDE 0.9% INJ 100 ML IV SCH ×2 (08:44→21:13)
[2016-10-18] MEDS: CHLORHEXIDINE 0.12% (ORAL KIT) 15 ML CUP MT SCH ×2 (08:48→20:00)
[2016-10-18] MEDS: predniSONE 5 MG/5 ML CUP PO SCH (08:49)
[2016-10-18] MEDS: LIDOCAINE 1%/EPINEPHrine 1:100,000 SOLN 30 ML VIAL ONE ×2 (10:37→12:03)
[2016-10-18] MEDS: THROMBIN (TOPICAL) 5,000 UNIT VIAL ONE ×2 (10:37→12:03)
[2016-10-18] MEDS: GELFOAM SIZE 100 ONE ×2 (10:37→12:03)
[2016-10-18] MEDS: GENTAMICIN SULFATE 80 MG/2 ML VIAL ONE ×2 (10:54→12:03)
[2016-10-18] MEDS: VANCOMYCIN HCL 1000 MG VIAL ONE ×2 (11:13→11:45)
[2016-10-18] MEDS ORDERED: ceFAZolin 2 GM PREMIX 50 ML ONE (11:13)
[2016-10-18] MEDS: levETIRAcetam 500 MG/5 ML VIAL IV ONE ×2 (11:13→11:50)
[2016-10-18] MEDS ORDERED: BISACODYL 10 MG SUPP PR PRN (11:45)
[2016-10-18] MEDS ORDERED: MAGNESIUM SULFATE INJ 4 GM in SODIUM CHLORIDE 0.9% INJ 100 ML IV PRN (11:45)
[2016-10-18] MEDS ORDERED: ACETAMINOPHEN/HYDROcodone 325 MG/10 MG TAB PO PRN ×2 (11:45)
[2016-10-18] MEDS ORDERED: ONDANSETRON HCL 4 MG/2 ML VIAL IV PRN (11:45)
[2016-10-18] MEDS ORDERED: MORPHINE SULFATE 4 MG/ML INJ IV PUSH PRN ×2 (11:45)
[2016-10-18] MEDS ORDERED: CALCIUM GLUCONATE 10% 1 GM/10 ML VIAL IV PRN (11:45)
[2016-10-18] MEDS ORDERED: POTASSIUM CHLOR 20 MEQ PREMIX 100 ML IV PRN (11:45)
[2016-10-18] MEDS ORDERED: levETIRAcetam INJ 500 MG in SODIUM CHLORIDE 0.9% INJ 100 ML IV SCH (12:00)
[2016-10-18] MEDS ORDERED: LACTATED RINGER'S 1000 ML INJ 1,000 ML IV ONE (12:00)
[2016-10-18] MEDS ORDERED: SODIUM CHLORID 0.9% 500 ML INJ 500 ML IV ONE (12:00)
[2016-10-18] MEDS ORDERED: fentaNYL CITRATE 250 MCG/5 ML AMP ONE (13:49)
[2016-10-18] MEDS: NS + KCL 20 MEQ INJ 1,000 ML IV SCH ×2 (14:35→21:14)
--- NOTE | 2016-10-18 15:02 | PD.OP ---
Operative Report Date of Surgery: Oct 18, 2016 Preoperative Diagnosis: Traumatic brain injury. RIght subdural hematoma and severe brain edema Postoperative Diagnosis: Traumatic brain injury. RIght subdural hematoma and severe brain edema Procedure: Right frontotemporoparietal decompressive craniectomy with evacuation of subdural hematoma Anesthesia: general Surgeon: Chetan Cruz Reiki Practitioner(s): Margarito Christensen Operation and Findings: INDICATIONS FOR THE PROCEDURE Mr Nixon is an adult male who was brought to [facility] as a trauma alert with a severe traumatic brain injury He was managed iinitially in a conservative fashion with a ventriculostomy catheter. He deteriorated. Follow up CT of the brain showed an increasing right acute subdural hematoma with mass effect and midline shift. A surgical decompression was indicated as recommended by the Trauma [employer] of [employer] in an attempt to save the patient 's life DETAILS OF THE SURGICAL PROCEDURE The patient was endotracheally intubated and mechanically ventilated. A Estrella catheter, bilateral RITCHIE hose and sequential compression devices were placed and kept throughout the procedure. The patient was positioned supine on a 3080 table over a soft mattress. The eyes were tapped shut after ointment was applied by the anesthesiologist to prevent corneal abrasion. A Lennie hugger was placed over the exposed lower body to maintain control of the core body temperature. The head was placed on a gel doughnut. All pressure points were carefully padded with egg crate mattress. The frontotemporal parietal area was shaved, prepped and draped in the usual sterile fashion. A standard inverted question ishaan incision was outlined on the scalp and infiltrated with 1% lidocaine with epinephrine. The skin incision was made with a #10 blade down to the level of the periosteum in the frontoparietal region and to the temporalis fascia in the temporal region. Edward clips were applied to the scalp. Using a Bovie, the temporalis fascia and muscle were incised and a subperiosteal dissection was performed reflecting the scalp flap anteriorly. The scalp was covered with a moist sponge and held in position using fish hooks. The Midas Tae was brought to the field and a bur hole was made in the temporal region using the craniotome attachment. Then, using the footplate attachment, a large frontotemporoparietal craniotomy flap was elevated. The dura was bulging, very tense with severe pressure and an underlying dark coloration related to the acute subdural hematoma. The dura was opened with a 15 blade and metzembaun scissors and a subdural hematoma was found, causing significant mass effect. The hematoma was evacuated by gentle irrigation and sent to the lab for histologic analysis. The bleeding was controlled using the bipolar hydraulic engineer. Then the incision was irrigated with saline solution. The dural edges were tacked to the bone. The brain was bulgig. The dura was approximated with 4 -0 Vicryl interruupted. A 7 millimeter Amos-Mohan drain was then left in the subgaleal space and externalized through a separate stab incision. The incision was then closed in layers. 0 Vicryl in interrupted sutures were used to close the temporalis fascia. The galea was closed with interrupted 3-0 Vicryl. [place] were applied to the skin. The drain was secured with a 3-0 nylon. At the end of the procedure, the sponge, needle and instrument counts were all correct. Estimated blood loss was less than 100 cc or less. No blood transfusion was given. No intraoperative complications occurred. The patient received prophylactic antibiotics. The patient was then transferred to the SICU room in stable condition. COMPLICATIONS None ESTIMATED BLOOD LOSS Less than 100 cc. Chetan Cruz MD Oct 18, 2016 15:02
--- NOTE | 2016-10-18 15:06 | PD.OP ---
Operative Report Date of Surgery: Oct 18, 2016 Preoperative Diagnosis: Traumatic brain injury. RIght subdural hematoma and severe brain edema Postoperative Diagnosis: Traumatic brain injury. RIght subdural hematoma and severe brain edema Procedure: Left frontal bur hole with placement of an intracranial pressure Anesthesia: general Surgeon: Chetan Cruz Spindraw Operator(s): DANGELO Resident Surgeon: DETAILS OF THE SURGICAL PROCEDURE The left frontal area was shaved, prepped and draped in the usual sterile fashion. An entry point was selected behind the hairline, approximately 30 mm lateral to the midline. The incision was infiltrated with 1% lidocaine with epinephrine 1:100,000 dilution. A small incision was made with a 15 blade down to the level of the periosteum. Using a twist drill a pebbles hole was made. The dura was opened with a blunt stylet, and a Monica bolt was secured to the bone. A fiberoptic transducer was calibrated according to the resistance welder's instructions, and advanced into the parenchyma of the frontal lobe through the bolt. An intracranial pressure of 5 mmHg was achieved with a good waveform. A Betadine sterile dressing was applied. The patient tolerated the procedure well. There were no intraoperative complications. Blood loss was minimal. Operation and Findings: INDICATIONS FOR THE PROCEDURE Mr Nixon is an adult male who was brought to [facility] as a trauma alert with a severe traumatic brain injury He was managed iinitially in a conservative fashion with a ventriculostomy catheter. He deteriorated. Follow up CT of the brain showed an increasing right acute subdural hematoma with mass effect and midline shift. A placement of an ICP monitor was indicated as recommended by the Trauma Commitee of [employer] in an attempt to save the patient's life Chetan Cruz MD Oct 18, 2016 15:06
[2016-10-18 15:53] LABS: AUTOMATED NEUTROPHIL # 13.3 TH/MM3 (1.8-7.7); BASOPHIL # 0.1 TH/MM3 (0-0.2); BASOPHIL % 0.5 % (0.0-2.0); HEMATOCRIT 36.7 % (39.0-51.0); HEMO FLAGS DIFF FINAL; LYMPH % 5.5 % (9.0-44.0); LYMPHOCYTE # 0.9 TH/MM3 (1.0-4.8); MEAN CELL VOLUME 98.2 FL (80.0-100.0); MEAN CORPUSCULAR HGB CONC 32.5 % (32.0-36.0); MONO % 8.7 % (0.0-8.0); NEUT % 85.3 % (16.0-70.0); PLATELET COUNT 214 TH/MM3 (150-450); RED BLOOD COUNT 3.74 MIL/MM3 (4.50-5.90); RED CELL DISTRIBUTION WIDTH 14.4 % (11.6-17.2); WHITE BLOOD COUNT 15.6 TH/MM3 (4.0-11.0)
[2016-10-18 16:16] LABS: BICARBONATE 29.4 MEQ/L (21.0-32.0); POTASSIUM 4.2 MEQ/L (3.5-5.1)
--- NOTE | 2016-10-18 17:54 | HHI.CCPN ---
Subjective Remarks/Hospital Course 10/11: Elderly male who was brought in as a trauma alert after he fell 10 feet from a ladder. GCS 6 initially at the scene subsequently improved to 11 on arrival in the ER. Patient was evaluated by trauma team and subsequently underwent imaging studies and transferred to the ICU. Critical care consult was requested by Dr. Menezes. Patient was initially on a nonrebreather facemask however by the time I saw him he had been switched to nasal cannula and did not appear to be in any acute distress. Imaging studies revealed an occipital skull fracture, subdural and subarachnoid blood. Patient was awake and alert at the time of evaluation and following commands and moving all 4 extremities. He could not hear and had some speech difficulty at the time of my evaluation with difficulty in communication though was following commands appropriately. C spine cleared by Neurosurgery at the time of my evaluation. 10/12: Patient developed worsening agitation despite Precedex last evening. He was started on Ativan as his gives history that he drinks 12 beers a day and if he does not drink has a tendency to go into withdrawal very quickly. Patient was subsequently intubated and placed on mechanical ventilation, his head CT from last evening shows worsening bilateral subdural and subarachnoid hemorrhages, right temporoparietal subdural hemorrhage with 9 mm leftward midline shift. He was started on 3% saline. Currently sedated with Versed/ fentanyl/propofol. 10/13: Remains sedated, orally intubated on mechanical ventilation. On Versed/ fentanyl/propofol drips. Gets agitated on attempting to cut down on propofol which is currently at 30 mics per minute, Versed 10 mg/h, fentanyl 150 g per hour. 10/14: ICPs still borderline, mid-teens. remains sedated. EVD placed yesterday. midline shift slightly improved after EVD placement. 10/15: ICPs improved significantly. < 10 all night. EVD clamped. 10/16: ICPs stable off versed. sodium continues to rise. withdraws to pain x 4. 10/18: not waking up. repeat head CT shows interval expansion of SDH with 1.2 cm midline shift. taken for decompression to OR. Dr. Cruz asked [facility] to reconsult and assist in management of post-operative craniectomy. Objective Vital Signs Date Time Temp Pulse Resp B/P Pulse Ox O2 Delivery O2 Flow Rate FiO2 10/18/16 16:45 94 50 10/18/16 16:00 98.7 75 32 143/56 10/18/16 09:20 Ventilator Intake and Output 10/17/16 10/17/16 10/18/16 08:00 16:00 00:00 Intake Total 1151 ml 1644 ml 1119 ml Output Total 450 ml 1500 ml 750 ml Balance 701 ml 144 ml 369 ml Result Diagram: 10/18/16 1536 10/18/16 1536 Other Results Laboratory Tests Test 10/18/16 04:17 Blood Gas Puncture Site DIANA Blood Gas Patient Temperature 98.6 Blood Gas HCO3 29 mmol/L (22-26) Blood Gas Base Excess 4.4 mmol/L (-2-2) Blood Gas Oxygen Saturation 90 % (90-100) Arterial Blood pH 7.44 (7.380-7.420) Arterial Blood Partial 43 mmHg (38-42) Pressure CO2 Arterial Blood Partial 66 mmHg Pressure O2 (61-120) Arterial Blood Oxygen Content 15.9 Vol % (12.0-20.0) Arterial Blood 1.1 % (0-4) Carboxyhemoglobin Arterial Blood Methemoglobin 0.8 % (0-2) Blood Gas Hemoglobin 12.6 G/DL (12.0-16.0) Oxygen Delivery Device VENTILATOR Blood Gas Ventilator Setting SEE COMMENT Blood Gas Inspired Oxygen 40 % Imaging Last 24 hours Impressions Chest X-Ray 10/13/16 0600 Signed Impressions: Service Date/Time: Thursday, October 13, 2016 04:18 - CONCLUSION: Minimal right base atelectasis or consolidation. Red Joshua MD Last Impressions Chest X-Ray 10/12/16 06 Signed Impressions: Service Date/Time: Wednesday, October 12, 2016 05:11 - CONCLUSION: Minimal increased density at the bases representing minimal atelectasis or consolidation. Red oJshua MD Head CT 10/11/161999 Signed Impressions: Service Date/Time: Tuesday, October 11, 2016 22:04 - CONCLUSION: Much worse in the interim. There is increased and extensive subdural and subarachnoid blood as above. Multifocal parenchymal hemorrhage now present of both frontal and temporal lobes, especially the right frontal lobe.. There is about 9 mm of leftward midline shift. 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 MD Pelvis X-Ray 10/11/16 1213 Signed Impressions: Service Date/Time: Tuesday, October 11, 2016 12:02 - CONCLUSION: Satisfactory trauma pelvis appearance. Red Hoffman MD Chest CT 10/11/163 Signed Impressions: Service Date/Time: Tuesday, October 11, 2016 12:19 - CONCLUSION: Negative for acute traumatic injury. There is no pneumothorax. Davis Nolasco MD FACR Cervical Spine CT 10/11/16 1213 Signed Impressions: Service Date/Time: Tuesday, October 11, 2016 12:19 - CONCLUSION: Occipital skull fracture. No evidence of acute traumatic injury in the cervical spine Red Hoffman MD Abdomen/Pelvis CT 10/11/16 1213 Signed Impressions: Service Date/Time: Tuesday, October 11, 2016 12:19 - CONCLUSION: Negative CT scan of the abdomen and pelvis for acute traumatic injury. Davis Nolasco MD FACR Objective Remarks HEENT/Neuro: No pallor or icterus, tongue moist, pupils pinpoint, equal, reactive. withdraw x 4. RASS -4 Neck: No JVD Chest/pulmonary: CTA bilaterally Cardiovascular: S1-S2 regular no gallop or murmur GI/abdomen: Soft, nontender, bowel sounds present Extremities: Warm bilaterally, no edema Neuro: wd x 4, grimaces to pain. PERRL. A/P Assessment and Plan Plan: Neuro: Encephalopathy Occipital skull fracture TBI with bifrontal contusions, bifrontal, right temporoparietal subdural hemorrhage, subarachnoid hemorrhage Hearing loss History of alcohol abuse Suspected alcohol withdrawal Elevated ICP S/p decompressive craniotomy --Follow neuro checks --neurosurgery consulted and following: Dr. Cruz --continue to lighten sedation. wean propofol for RASS goal -2. hold wean if ICP > 20. --d/c oxycodone in the setting of poor neuro exam. --d/c seroquel in the setting of poor neuro exam. --hold free water, target serum Na 145-150. -- Seizure prophylaxis with Keppra. -- thiamine/folate acid for alcohol withdrawal. Cardiovascular: Hypertension -- IV hydration -- Nicardipine for goal SBP < 140. --Labetalol/hydralazine when necessary for hypertension. Pulmonary: Suspected COPD Acute hypoxic and hypercarbic respiratory failure requiring mechanical ventilation -- Continue mechanical ventilation, vent bundle, Bronchodilators. -- Maintain end-tidal CO2 30-35. -- steroid taper with prednisone 50mg daily and slow wean over 5 days. (taper already ordered, finishes ) GI/liver: Acute protein calorie malnutrition-mild Hypernatremia -- tube feeds at goal -- hold free water. goal Na 145-150 Renal/: -- strict intake output, monitor and replete electrolytes, follow BUN/ creatinine. Estrella catheterization. ID: H. Influenza pneumonia -- start cipro 400mg iv x 7 days Endocrine: -- Watch for hyperglycemia, SSI for glycemic control if needed -- steroid taper for presumed COPD exacerbation as described above. Heme: Anemia of Acute Blood Loss -- Follow CBC Prophylaxis: -- PPI/SCDs. -- No heparin or Lovenox in view of TBI till cleared by Neurosurgery Condition remains critical with persistently life-threatening elevated ICP and TBI now s/p decompressive crani, hypoxic respiratory failure, severe hypernatremia, delirium. Time spent on critical care excluding procedures 41 minutes. this time was in addition to and separate in time and discontinuous from any other documented critical care time today. Oswaldo Chambers MD Oct 18, 2016 17:53
[2016-10-18] MEDS: ceFAZolin 2 GM PREMIX 50 ML IV SCH (18:27)
[2016-10-18] MEDS ORDERED: CIPROFLOXACIN 400 MG PREMIX 200 ML IV SCH (20:00)
[2016-10-18] MEDS: RESP: ALBUTEROL 2.5 MG/IPRATROPIUM 0.5 MG NEB (PRN) NEB ×2 (20:23→23:38)
[2016-10-18] MEDS: SODIUM CHLORIDE 0.9% FLUSH 5 ML FLUSH IVF SCH (21:00)
[2016-10-18] MEDS: THIAMINE INJ 100 MG in SODIUM CHLORIDE 0.9% INJ 100 ML IV SCH (21:13)
[2016-10-18] MEDS: ACETAMINOPHEN 325 MG TAB PO PRN (22:58)
[2016-10-18 23:33] LABS: BLOOD GAS BASE EXCESS 3.1 mmol/L (-2-2); BLOOD GAS CARBOXYHEMOGLOBIN 1.3 % (0-4); BLOOD GAS HCO3 26 mmol/L (22-26); BLOOD GAS O2 HGB SATURATION 90 % (90-100); BLOOD GAS OXYGEN CONTENT 15.5 Vol % (12.0-20.0); BLOOD GAS PCO2 33 mmHg (38-42); BLOOD GAS PO2 66 mmHg (61-120); BLOOD GAS TOTAL HGB 12.2 G/DL (12.0-16.0); TEMP CORR TO 98.6
[2016-10-18 23:34] LABS: CRITICAL VALUE YES; OXYGEN DEVICE VENTILATOR
[2016-10-18 23:35] LABS: FIO2 50 %; STAT NO; ULNAR PULSE PRESENT; VENT SETTINGS PRVC/AC
[2016-10-19] VITALS (18 sets, daily range): BP systolic 124–150; BP diastolic 60–72; PULSE 65–84; RESP 19–28; TEMP 95.2–99.9; O2SAT 96–100
[2016-10-19] MEDS: PROPRANOLOL HCL 10 MG TAB PO SCH ×2 (00:03→05:21)
[2016-10-19] MEDS: PROPOFOL 1000 MG/100 ML INJ 100 ML IV SCH ×7 (00:36→23:25)
[2016-10-19] MEDS ORDERED: PROPOFOL 1000 MG/100 ML INJ 100 ML IV SCH (00:45)
--- NOTE | 2016-10-19 03:06 | RADRPT ---
EXAM DATE/TIME: 10/19/2016 02:54 [facility] COMPARISON: CT BRAIN W/O CONTRAST, October 18, 2016, 4:46. INDICATIONS : Post op, follow up trauma. RADIATION DOSE: 57.63 CTDIvol (mGy) MEDICAL HISTORY : Hypertension. Cardiovascular disease SURGICAL HISTORY : Craniotomy. ENCOUNTER: Subsequent ACUITY: 1 week PAIN SCALE: Non-responsive LOCATION: cranial TECHNIQUE: Multiple contiguous axial images were obtained of the head. Using automated exposure control and adj ustment of the mA and/or kV according to patient size, radiation dose was kept as low as reasonably a chievable to obtain optimal diagnostic quality images. FINDINGS: Compare October 18. There is interval partial right-sided craniectomy with surgical drains present. Previous acute subdural hematoma has been evacuated. Midline shift has decreased from 12 mm to 6 mm. Evolving hemorrhagic contusions bilaterally are relatively stable. Skin marisela are present on the ri ght with subcutaneous scalp swelling. Fluid present in the paranasal sinuses. Stable skull fracture. Left frontal intracranial pressure monitor present. CONCLUSION: Interval partial right-sided craniectomy with evacuation of right subdural hematoma and decreased mid line shift. Tyrel Olmos MD on October 19, 2016 at 3:01 Board Certified Radiologist. This report was verified electronically.
[2016-10-19] MEDS: ceFAZolin 2 GM PREMIX 50 ML IV SCH (03:51)
[2016-10-19 03:55] LABS: AUTOMATED NEUTROPHIL # 12.3 TH/MM3 (1.8-7.7); BASOPHIL # 0.1 TH/MM3 (0-0.2); BASOPHIL % 0.5 % (0.0-2.0); LYMPH % 6.8 % (9.0-44.0); LYMPHOCYTE # 1.1 TH/MM3 (1.0-4.8); MEAN CELL VOLUME 97.3 FL (80.0-100.0); MEAN CORPUSCULAR HGB CONC 33.9 % (32.0-36.0); MONO % 19.4 % (0.0-8.0); NEUT % 73.3 % (16.0-70.0); PLATELET COUNT 218 TH/MM3 (150-450); RED CELL DISTRIBUTION WIDTH 14.4 % (11.6-17.2); WHITE BLOOD COUNT 16.8 TH/MM3 (4.0-11.0)
[2016-10-19 03:56] LABS: HEMO FLAGS AUTO DIFF
[2016-10-19] MEDS ORDERED: TERBUTALINE INJ 1 MG/ML AMP SQ PRN (04:00)
[2016-10-19] MEDS: CHLORHEXIDINE GLUCONATE 2 % 1 PACK (2 CLOTHS) TOP SCH (04:00)
[2016-10-19 04:11] LABS: BICARBONATE 28.2 MEQ/L (21.0-32.0)
[2016-10-19 04:35] LABS: BANDS 3 % (0-6); MYELOCYTES 1 % (0-0); NEUTROPHIL # MANUAL DIFF 12.9 TH/MM3 (1.8-7.7); POLYS (SEG NEUTROPHILS) 73 % (16-70); SCAN/DIFF FINAL DIFF MANUAL; WBC DIFF SAMPLE 100
[2016-10-19 04:36] LABS: PLATELET ESTIMATE SMEAR NORMAL (NORMAL); PLATELET MORPHOLOGY NORMAL (NORMAL)
[2016-10-19] MEDS: NOREPINEPHRINE INJ 4 MG in SODIUM CHLOR 0.9% 250 ML INJ 246 ML IV SCH ×2 (05:33→13:51)
[2016-10-19 05:42] LABS: BLOOD GAS BASE EXCESS 1.9 mmol/L (-2-2); BLOOD GAS CARBOXYHEMOGLOBIN 1.1 % (0-4); BLOOD GAS HCO3 26 mmol/L (22-26); BLOOD GAS METHEMOGLOBIN 0.8 % (0-2); BLOOD GAS O2 HGB SATURATION 94 % (90-100); BLOOD GAS OXYGEN CONTENT 15.6 Vol % (12.0-20.0); BLOOD GAS PCO2 37 mmHg (38-42); BLOOD GAS PO2 88 mmHg (61-120); BLOOD GAS TOTAL HGB 11.7 G/DL (12.0-16.0); CRITICAL VALUE NO; TEMP CORR TO 98.6
[2016-10-19 05:43] LABS: DRAW SITE ART LINE; FIO2 50 %; OXYGEN DEVICE VENTILATOR; VENT SETTINGS PRVC/AC
[2016-10-19 05:44] LABS: STAT NO
[2016-10-19 05:46] LABS: DRAW SITE ART LINE
[2016-10-19] MEDS ORDERED: Vancomycin Consult Pharmacy 1 EA OTHER SCH (07:45)
[2016-10-19] MEDS ORDERED: VANCOMYCIN INJ 1,250 MG in SODIUM CHLOR 0.9% 250 ML INJ 250 ML IV ONE (07:45)
[2016-10-19] MEDS ORDERED: MANNITOL 12.5 GM/50 ML VIAL IV ONE (08:00)
[2016-10-19] MEDS ORDERED: MIDAZOLAM HCL 5 MG/ML VIAL (1 ML) IV ONE (08:00)
[2016-10-19] MEDS: predniSONE 5 MG/5 ML CUP PO SCH (08:26)
[2016-10-19] MEDS: levETIRAcetam INJ 500 MG in SODIUM CHLORIDE 0.9% INJ 100 ML IV SCH (08:27)
[2016-10-19] MEDS: MIDAZOLAM 100 MG/ML INJ 100 ML IV SCH ×2 (08:30→17:44)
[2016-10-19] MEDS: PANTOPRAZOLE SODIUM 40 MG VIAL IVP SCH (08:33)
[2016-10-19] MEDS: DOCUSATE SODIUM 100 MG CAP PO SCH ×2 (08:35→21:33)
[2016-10-19] MEDS: LACTULOSE SYRUP 20 GM/30 ML CUP PO SCH (08:35)
[2016-10-19] MEDS: CHLORHEXIDINE 0.12% (ORAL KIT) 15 ML CUP MT SCH ×2 (08:35→21:32)
[2016-10-19] MEDS: MAGNESIUM HYDROXIDE SUSP 30 ML CUP PO SCH (08:35)
[2016-10-19] MEDS: VANCOMYCIN INJ 1,800 MG in SODIUM CHLORID 0.9% 500 ML INJ 500 ML IV SCH ×2 (08:55→21:33)
[2016-10-19] MEDS: NS + KCL 20 MEQ INJ 1,000 ML IV SCH (08:55)
[2016-10-19] MEDS ORDERED: PANTOPRAZOLE SOD 40 MG DELAYED RELEASE TAB PO SCH (09:00)
[2016-10-19] MEDS: SODIUM CHLORIDE 0.9% FLUSH 5 ML FLUSH IVF SCH ×2 (09:11→21:33)
[2016-10-19] MEDS: cefTRIAXone INJ 2,000 MG in SODIUM CHLORIDE 0.9% INJ 100 ML IV SCH ×2 (09:11→21:32)
[2016-10-19] MEDS: 3% SALINE INJ 500 ML IV SCH (09:14)
--- NOTE | 2016-10-19 09:55 | HHI.CCPN ---
Subjective Remarks/Hospital Course 10/11: Elderly male who was brought in as a trauma alert after he fell 10 feet from a ladder. GCS 6 initially at the scene subsequently improved to 11 on arrival in the ER. Patient was evaluated by trauma team and subsequently underwent imaging studies and transferred to the ICU. Critical care consult was requested by Dr. Menezes. Patient was initially on a nonrebreather facemask however by the time I saw him he had been switched to nasal cannula and did not appear to be in any acute distress. Imaging studies revealed an occipital skull fracture, subdural and subarachnoid blood. Patient was awake and alert at the time of evaluation and following commands and moving all 4 extremities. He could not hear and had some speech difficulty at the time of my evaluation with difficulty in communication though was following commands appropriately. C spine cleared by Neurosurgery at the time of my evaluation. 10/12: Patient developed worsening agitation despite Precedex last evening. He was started on Ativan as his gives history that he drinks 12 beers a day and if he does not drink has a tendency to go into withdrawal very quickly. Patient was subsequently intubated and placed on mechanical ventilation, his head CT from last evening shows worsening bilateral subdural and subarachnoid hemorrhages, right temporoparietal subdural hemorrhage with 9 mm leftward midline shift. He was started on 3% saline. Currently sedated with Versed/ fentanyl/propofol. 10/13: Remains sedated, orally intubated on mechanical ventilation. On Versed/ fentanyl/propofol drips. Gets agitated on attempting to cut down on propofol which is currently at 30 mics per minute, Versed 10 mg/h, fentanyl 150 g per hour. 10/14: ICPs still borderline, mid-teens. remains sedated. EVD placed yesterday. midline shift slightly improved after EVD placement. 10/15: ICPs improved significantly. < 10 all night. EVD clamped. 10/16: ICPs stable off versed. sodium continues to rise. withdraws to pain x 4. 10/18: not waking up. repeat head CT shows interval expansion of SDH with 1.2 cm midline shift. taken for decompression to OR. Dr. Cruz asked CCM to reconsult and assist in management of post-operative craniectomy. 10/19: overnight, ICP significantly increased. stat repeat head CT without interval change. this morning ICP still elevated 22-23. versed drip started, 3 % infusion started back, 25gm mannitol ordered x 1. now on norepinephrine to maintain cerebral perfusion pressure. Objective Vital Signs Date Time Temp Pulse Resp B/P Pulse Ox O2 Delivery O2 Flow Rate FiO2 10/19/16 06:00 82 10/19/16 04:12 96 50 10/19/16 04:00 99.9 21 138/60 10/18/16 19:00 Mechanical Ventilator Intake and Output 10/18/16 10/18/16 10/19/16 08:00 16:00 00:00 Intake Total 833 ml 136 ml 339 ml Output Total 550 ml 1000 ml 335 ml Balance 283 ml -864 ml 4 ml Result Diagram: 10/19/16 0340 10/19/16 0340 Other Results Laboratory Tests Test 10/18/16 10/19/16 23:20 05:30 Blood Gas Puncture Site ART LINE ART LINE Blood Gas Patient Temperature 98.6 98.6 Blood Gas HCO3 26 mmol/L 26 mmol/L (22-26) (22-26) Blood Gas Base Excess 3.1 mmol/L 1.9 mmol/L (-2-2) (-2-2) Blood Gas Oxygen Saturation 90 % (90-100) 94 % (90-100) Arterial Blood pH 7.51 7.45 (7.380-7.420) (7.380-7.420) Arterial Blood Partial 33 mmHg (38-42) 37 mmHg (38-42) Pressure CO2 Arterial Blood Partial 66 mmHg 88 mmHg Pressure O2 (61-120) (61-120) Arterial Blood Oxygen Content 15.5 Vol % 15.6 Vol % (12.0-20.0) (12.0-20.0) Arterial Blood 1.3 % (0-4) 1.1 % (0-4) Carboxyhemoglobin Arterial Blood Methemoglobin 1.0 % (0-2) 0.8 % (0-2) Blood Gas Hemoglobin 12.2 G/DL 11.7 G/DL (12.0-16.0) (12.0-16.0) Oxygen Delivery Device VENTILATOR VENTILATOR Blood Gas Ventilator Setting PRVC/AC PRVC/AC Blood Gas Inspired Oxygen 50 % 50 % Imaging Last 24 hours Impressions Chest X-Ray 10/13/16 0600 Signed Impressions: Service Date/Time: Thursday, October 13, 2016 04:18 - CONCLUSION: Minimal right base atelectasis or consolidation. Red Joshua MD Last Impressions Chest X-Ray 10/12/16 0600 Signed Impressions: Service Date/Time: Wednesday, October 12, 2016 05:11 - CONCLUSION: Minimal increased density at the bases representing minimal atelectasis or consolidation. Red Joshua MD Head CT 10/11/161999 Signed Impressions: Service Date/Time: Tuesday, October 11, 2016 22:04 - CONCLUSION: Much worse in the interim. There is increased and extensive subdural and subarachnoid blood as above. Multifocal parenchymal hemorrhage now present of both frontal and temporal lobes, especially the right frontal lobe.. There is about 9 mm of leftward midline shift. 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 MD Pelvis X-Ray 10/11/16 1213 Signed Impressions: Service Date/Time: Tuesday, October 11, 2016 12:02 - CONCLUSION: Satisfactory trauma pelvis appearance. Red Hoffman MD Chest CT 10/11/16 1213 Signed Impressions: Service Date/Time: Tuesday, October 11, 2016 12:19 - CONCLUSION: Negative for acute traumatic injury. There is no pneumothorax. Davis Nolasco MD FACR Cervical Spine CT 10/11/16 121 Signed Impressions: Service Date/Time: Tuesday, October 11, 2016 12:19 - CONCLUSION: Occipital skull fracture. No evidence of acute traumatic injury in the cervical spine Red Hoffman MD Abdomen/Pelvis CT 10/11/16 1213 Signed Impressions: Service Date/Time: Tuesday, October 11, 2016 12:19 - CONCLUSION: Negative CT scan of the abdomen and pelvis for acute traumatic injury. Davis Nolasco MD FACR Objective Remarks HEENT/Neuro: No pallor or icterus, tongue moist, pupils pinpoint, equal, reactive. RASS -5. deeply sedated. GCS 3. Neck: No JVD Chest/pulmonary: CTA bilaterally Cardiovascular: S1-S2 regular no gallop or murmur GI/abdomen: Soft, nontender, bowel sounds present Extremities: Warm bilaterally, no edema Neuro: PERRL. GCS 3. no movements peripherally. A/P Assessment and Plan Assessment: 56yM s/p trauma with TBI, bifrontal contusions, right SDH s/p right crani decompression, traumatic SAH. Plan: Neuro: Encephalopathy Occipital skull fracture TBI with bifrontal contusions, bifrontal, right temporoparietal subdural hemorrhage, subarachnoid hemorrhage Hearing loss History of alcohol abuse Suspected alcohol withdrawal Elevated ICP S/p decompressive craniotomy --Follow neuro checks --neurosurgery consulted and following: Dr. Cruz --does not meet criteria for sedation vacation given elevated ICP. -- Seizure prophylaxis with Keppra. -- thiamine/folate acid for alcohol withdrawal. -- EEG today to r/o seizures -- versed drip to help with ICP -- propofol drip, max dose 100 mcg/kg/min -- restart NaCl 3% at 30cc/hr. check serum Na at noon. goal Na 150. Cardiovascular: Intermittent Hypotension and Hypertension -- continue NS @ 100cc/hr -- will liberalize SBP goals to 160 to maintain cerebral perfusion pressure -- intermittently using Norepinephrine and Nicardipine. very hemodynamically labile. --Labetalol/hydralazine when necessary for hypertension. -- hold propranolol given hemodynamic instability. Pulmonary: Suspected COPD Acute hypoxic and hypercarbic respiratory failure requiring mechanical ventilation -- Continue mechanical ventilation, vent bundle, Bronchodilators. -- Maintain end-tidal CO2 30-35. -- steroid taper with prednisone 40mg daily and slow wean over 5 days. (taper already ordered, finishes ) -- no SBT while elevated ICP. GI/liver: Acute protein calorie malnutrition-mild Hypernatremia -- hold tube feeds today while on vasopressors. will restart when more hemodynamically stable. -- hold free water. goal Na 145-150 -- daily BMP Renal/: -- strict intake output, monitor and replete electrolytes, follow BUN/ creatinine. Estrella catheterization. ID: H. Influenza pneumonia Leukocytosis Fever -- d/c cipro and broaden abx regimen empirically -- Vancomycin with pharmacy dosing -- Rocephin 2gm iv q12h (empiric meningitic dosing). -- yost culture urine, sputum, blood. will not send CSF because we have no access , and LP with elevated ICP too high risk at this point. Endocrine: -- Watch for hyperglycemia, SSI for glycemic control if needed -- steroid taper for presumed COPD exacerbation as described above. Heme: Anemia of Acute Blood Loss -- Follow CBC -- does not meet transfusion triggers at this time. Prophylaxis: -- PPI/SCDs. -- No heparin or Lovenox in view of TBI till cleared by Neurosurgery Condition remains critical with persistently life-threatening elevated ICP and TBI now s/p decompressive crani, hypoxic respiratory failure, delirium. Time spent on critical care excluding procedures 81 minutes. this time was in addition to and separate in time and discontinuous from any other documented critical care time today. Oswaldo Chambers MD Oct 19, 2016 09:55
--- NOTE | 2016-10-19 10:48 | HHI.NSPN ---
(Viky Bernal) Note Status Status: Progress Note (Viky Bernal) Interval History Interval History 10/19: POD 1 s/p right decompressive craniectomy with evacuation of subdural hematoma. ICPs 22-23 overnight, f/u CT this am shows improved midline shift. currently well sedated. (Viky Bernal) Labs, Micro, & Vital Signs Results Date Time Temp Pulse Resp B/P Pulse Ox O2 Delivery O2 Flow Rate FiO2 10/19/16 09:36 99 Ventilator 50 10/19/16 09:36 99 50 10/19/16 06:00 82 10/19/16 04:12 96 50 10/19/16 04:00 82 10/19/16 04:00 50 10/19/16 04:00 99.9 82 21 138/60 98 10/19/16 02:45 100 100 10/19/16 02:00 75 10/19/16 00:43 96 96 10/19/16 00:00 80 10/19/16 00:00 50 10/19/16 00:00 99.9 80 19 148/65 97 10/18/16 22:00 84 10/18/16 20:24 100 50 10/18/16 20:00 84 10/18/16 20:00 97.9 80 17 150/58 100 10/18/16 20:00 50 10/18/16 19:00 93 Mechanical Ventilator 10/18/16 18:00 82 10/18/16 16:45 94 50 10/18/16 16:00 98.7 75 32 143/56 93 10/18/16 16:00 50 10/18/16 16:00 75 10/18/16 14:45 98.2 81 31 161/64 92 10/18/16 14:45 50 10/18/16 14:45 81 10/18/16 11:00 99 100 10/19/16 07:00 Intake Total 1496 ml Output Total 1915 ml Balance -419 ml Constitutional Vital Signs Date Time Temp Pulse Resp B/P Pulse Ox O2 Delivery O2 Flow Rate FiO2 10/19/16 09:36 99 Ventilator 50 10/19/16 09:36 99 50 10/19/16 06:00 82 10/19/16 04:12 96 50 10/19/16 04:00 82 10/19/16 04:00 50 10/19/16 04:00 99.9 82 21 138/60 98 10/19/16 02:45 100 100 10/19/16 02:00 75 10/19/16 00:43 96 96 10/19/16 00:00 80 10/19/16 00:00 50 10/19/16 00:00 99.9 80 19 148/65 97 10/18/16 22:00 84 10/18/16 20:24 100 50 10/18/16 20:00 84 10/18/16 20:00 97.9 80 17 150/58 100 10/18/16 20:00 50 10/18/16 19:00 93 Mechanical Ventilator 10/18/16 18:00 82 10/18/16 16:45 94 50 10/18/16 16:00 98.7 75 32 143/56 93 10/18/16 16:00 50 10/18/16 16:00 75 10/18/16 14:45 98.2 81 31 161/64 92 10/18/16 14:45 50 10/18/16 14:45 81 10/18/16 11:00 99 100 10/19/16 07:00 Intake Total 1496 ml Output Total 1915 ml Balance -419 ml (Viky Bernal) Review of Systems/Exam Exam Mr Nixon is intubated and sedated. Does not open eyes or follow commands Right flap if full and tight. [place] monitor in place, ICP currently 13 Surgical wound well demarcated, marisela intact. Two EDY drains in place with serous sanguinous drainage Cranial Nerves: Pupils 2-3 mm equal Motor: no spontaneous movements Sensory: no withdrawals to local pain x 4 Cerebellar: cannot assess (Viky Bernal) Medications Current Medications Current Medications Medications (Trade) Dose Ordered Sig/Jony Route PRN Reason Start Time Stop Time Status Last Admin Dose Admin Miscellaneous Information 1 [id number] XX 10/11/16 13:00 10/11/16 13:00 Chlorhexidine Gluconate (Chlorhexidine 2% Cloth) Taper DAILY@04 TOP 10/12/16 04:00 10/08/17 03:59 10/16/16 05:42 Chlorhexidine Gluconate (Chlorhexidine 2% Cloth) 3 pack UNSCH PRN TOP HYGIENIC CARE 10/11/16 13:00 Hydralazine HCl 10 mg 10 mg Q2H PRN IV PUSH SBP greater than 150mm Hg 10/11/16 13:30 10/17/16 09:22 Thiamine HCl 100 mg/Sodium Chloride 101 ml @ 100 mls/hr Q24H IV 10/11/16 20:00 10/18/16 21:13 Levetriacetam/ Sodium Chloride (Keppra Inj/NS Inj) 105 ml @ 420 mls/hr Q12HR IV 10/11/16 21:00 10/19/16 08:27 Chlorhexidine Gluconate (Peridex 0.12% Liq) 15 ml BID@08,20 MT 10/12/16 08:00 10/19/16 08:35 Magnesium Hydroxide (Milk Of Magnesia Liq) 30 ml DAILY PO 10/12/16 10:00 10/19/16 08:35 Lactulose (Lactulose Liq) 30 ml DAILY PO 10/14/16 09:00 10/19/16 08:35 Prednisone (predniSONE LIQ) 30 mg Taper DAILY PO 10/17/16 09:00 10/23/16 08:59 10/19/16 08:26 Metoprolol Tartrate (Lopressor Inj) 5 mg Q6H IV PUSH 10/15/16 13:00 Hold 10/16/16 11:41 Acetaminophen (Tylenol Supp) 650 mg Q4H PRN MS FEVER 10/15/16 12:15 Propranolol HCl (Inderal) 10 mg Q6HR PO 10/17/16 12:00 Hold 10/19/16 05:21 Info 1 1 UNSCH XX 10/17/16 11:00 Nicardipine HCl/ Sodium Chloride (Cardene Inj/NS 250 ml Inj) 250 ml @ 0 mls/hr TITRATE IV 10/17/16 11:45 10/18/16 23:16 IV Flush (NS Flush) 2 ml UNSCH PRN IVF FLUSH AFTER USING IV ACCESS 10/18/16 11:45 IV Flush (NS Flush) 2 ml BID IVF 10/18/16 21:00 10/19/16 09:11 Bisacodyl (Dulcolax Supp) 10 mg DAILY PRN MS CONSTIPATION 10/18/16 11:45 10/18/16 14:36 Docusate Sodium (Colace) 100 mg BID PO 10/18/16 21:00 10/19/16 08:35 Pantoprazole Sodium (Protonix Inj) 40 mg DAILY IVP 10/19/16 09:00 10/19/16 08:33 Ondansetron HCl (Zofran Inj) 4 mg Q6H PRN IV NAUSEA OR VOMITING 10/18/16 11:45 Calcium Gluconate 1 gm 1 gm UNSCH PRN IV SEE LABEL COMMENTS 10/18/16 11:45 Potassium Chloride 100 ml @ 50 mls/hr UNSCH PRN IV POTASSIUM LESS THAN 4 10/18/16 11:45 Magnesium Sulfate/ Sodium Chloride (Magnesium Sulfate Inj/NS Inj) 108 ml @ 108 mls/hr UNSCH PRN IV MAGNESIUM LESS THAN 2 10/18/16 11:45 Acetaminophen 650 mg 650 mg Q4H PRN PO TEMPERATURE > 101.5 F 10/18/16 11:45 10/18/16 22:58 Norepinephrine Bitartrate 4 mg/ Sodium Chloride 250 ml @ 0 mls/hr TITRATE IV 10/19/16 04:07 10/19/16 05:33 Pharmacy Profile Note 0 ml @ 0 mls/hr UNSCH OTHER 10/19/16 07:45 Ceftriaxone Sodium 2000 mg/ Sodium Chloride 100 ml @ 200 mls/hr Q12H IV 10/19/16 08:00 10/19/16 09:11 Midazolam HCl 100 ml @ 0 mls/hr TITRATE IV 10/19/16 08:00 10/19/16 08:30 Sodium Chloride 500 ml @ 40 mls/hr UNSCH IV 10/19/16 08:00 10/19/16 09:14 Vancomycin HCl 1800 mg/Sodium Chloride 518 ml @ 250 mls/hr Q12H IV 10/19/16 09:00 10/19/16 08:55 Propofol (Diprivan 1000 Mg/100ml Inj) 100 ml @ 0 mls/hr TITRATE IV 10/19/16 10:00 (Viky Bernal) Medical Decision Making MDM Remarks 56 y/o male s/p right decompressive craniectomy with evacuation of SDH, placement of ICP monitor, post-op CT Brain with improved midline shift (Viky Bernal) Plan Plan Remarks cont keep well sedated with no sedation vacation due to elevated ICPs this morning, cont close ICP monitoring cont hyperosmotics nonchemical DVT prophylaxis in view of ICH dw nursing (Viky Bernal) Attending Statement The exam, history, and the medical decision-making described in the above note were completed with the assistance of the mid-level provider. I reviewed and agree with the findings presented. I attest that I had a [id number] encounter with the patient on the same day, and personally performed and documented my assessment and findings in the medical record. (Chetan Cruz MD) Viky Bernal Oct 19, 2016 10:48 Chetan Cruz MD Oct 20, 2016 14:38
--- NOTE | 2016-10-19 11:32 | HHI.PR ---
Neuropsych Progress Notes/Response to Tx Contents of Sessions: Interests Time with Patient: 15 minutes Premorbid psychological status Premorbid Cognitive, Emotional and Behavioral Status: Deferred. 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 The patient has no known psychiatric difficulties. However, substance abuse history is significant for alcohol dependence and tobacco dependence. Behavioral Reactions of Patient and Family/Support System: Tenuous. The patients family has a limited understanding of the complexities of this patient 's brain injury, and the lifestyle barriers that prevent an optimal recovery. They are expected to have ongoing issues of adjustment given the nature of the injury, and this aspect of recovery will require ongoing monitoring. Emotional/Behavioral Status of Patient and Family/Support System: Tenuous. Pertinent issues, if appropriate to this patients clinical care, are described in detail above. Maximizing acute care outcome It is recommended that the patient be monitored for emergent behavioral impulsivity as the medical condition evolves. This patients neuropathological challenges may limit their rehabilitation potential going forward, and these challenges will require specialized therapeutic skills to maximize outcome. Additionally, the patients family is experiencing ongoing issues of adjustment given the traumatic nature of the injury, and they [will need / may benefit] from ongoing psychological assistance. Anticipated Problems Ongoing areas of concern could include behavioral impulsivity, lack of insight and judgment, which is expected to improve with time and treatment, provided he moves past this stage of recovery. Presently, the patient is not following commands. His long duration alcohol dependence and tobacco dependence, which has led to global cerebral atrophy, will serve as a double barrier to his recovery from this injury. Treatment Plan This clinician will continue to follow with you throughout the course of this patients rehabilitation treatment, and I will be available to meet with the patients family/support system to facilitate their understanding and the ongoing care of their family member. The goals of neuropsychological intervention shall be both educational and supportive to the family/support system as is deemed clinically appropriate. [facility] Level: I:No response-total assistance Diagnosis: (1) Major neurocognitive disorder as late effect of traumatic brain injury with behavioral disturbance Status: Acute (2) Alcohol dependence Status: Acute Progress Note Narrative Ongoing follow-up of patient who was seen in daily trauma rounding. This patient's neurological status is essentially unchanged from the previous days. I will continue to follow with you. Kermit Hughes PhD Oct 19, 2016 11:32 am
[2016-10-19 12:07] LABS: BLOOD GAS BASE EXCESS 0.6 mmol/L (-2-2); BLOOD GAS CARBOXYHEMOGLOBIN 1.1 % (0-4); BLOOD GAS HCO3 23 mmol/L (22-26); BLOOD GAS METHEMOGLOBIN 0.9 % (0-2); BLOOD GAS O2 HGB SATURATION 95 % (90-100); BLOOD GAS OXYGEN CONTENT 18.4 Vol % (12.0-20.0); BLOOD GAS PCO2 30 mmHg (38-42); BLOOD GAS PO2 86 mmHg (61-120); BLOOD GAS TOTAL HGB 13.8 G/DL (12.0-16.0); TEMP CORR TO 98.6
[2016-10-19 12:08] LABS: CRITICAL VALUE YES; OXYGEN DEVICE VENTILATOR; VENT SETTINGS 600/20/+5/0.07
[2016-10-19 12:09] LABS: DRAW SITE ART LINE; FIO2 50 %; STAT NO
[2016-10-19] MEDS ORDERED: levETIRAcetam 1000 MG INJ 100 ML IV ONE (13:45)
--- NOTE | 2016-10-19 16:30 | MG ---
cc: TEMO CASTAÑEDA M.D. Lab No: [id number] Date: 10/19/2016 Age: Sex: M Race: TECHNIQUE 17 channel EEG. DESCRIPTION The background rhythm shows generalized slowing in the theta frequency. There is occasional sharp activity identified in the right hemisphere mainly in the parietal and temporal area occurring intermittently. No other lateralizing features are seen. There is phase reversal. INTERPRETATION Abnormal study consistent with significant encephalopathy in addition there is sharp activity over the right hemisphere involving the mainly parietal area but also the temporal area which does appear epileptiform in nature. MD SHANDRA Zepeda/catalina /2:51 PM /4:27 PM
[2016-10-19] MEDS ORDERED: 3% SALINE INJ 250 ML IV ONE (17:00)
[2016-10-19] MEDS ORDERED: levETIRAcetam 1000 MG INJ 100 ML IV SCH (21:00)
[2016-10-19] MEDS: THIAMINE INJ 100 MG in SODIUM CHLORIDE 0.9% INJ 100 ML IV SCH (21:32)
[2016-10-20] VITALS (20 sets, daily range): BP systolic 106–146; BP diastolic 56–78; PULSE 59–88; RESP 16–20; TEMP 94.8–97.1; O2SAT 97–100
[2016-10-20] MEDS: PROPOFOL 1000 MG/100 ML INJ 100 ML IV SCH ×11 (00:19→20:16)
[2016-10-20] MEDS: MIDAZOLAM 100 MG/ML INJ 100 ML IV SCH ×3 (02:38→20:16)
[2016-10-20] MEDS: CHLORHEXIDINE GLUCONATE 2 % 1 PACK (2 CLOTHS) TOP SCH ×2 (04:00→21:04)
--- NOTE | 2016-10-20 04:32 | RADRPT ---
EXAM DATE/TIME: 10/20/2016 03:57 [place] COMPARISON: CHEST SINGLE AP, October 16, 2016, 5:18. INDICATIONS : Shortness of breath. MEDICAL HISTORY : Hypertension. Cardiovascular disease. SURGICAL HISTORY : Craniotomy. ENCOUNTER: Subsequent ACUITY: 1 week PAIN SCORE: Non-responsive. LOCATION: Bilateral chest FINDINGS: Endotracheal tube tip in satisfactory position. Left central line tip in superior vena cava. NG coile d in stomach. Mild basilar airspace disease and probable small effusions. No pneumothorax. CONCLUSION: 1. Basilar airspace disease increased from October 16. Support apparatus unchanged. Tyrel Olmos MD on October 20, 2016 at 4:28 Board Certified Radiologist. This report was verified electronically.
[2016-10-20 05:25] LABS: BLOOD GAS BASE EXCESS -1.3 mmol/L (-2-2); BLOOD GAS CARBOXYHEMOGLOBIN 0.9 % (0-4); BLOOD GAS HCO3 22 mmol/L (22-26); BLOOD GAS O2 HGB SATURATION 96 % (90-100); BLOOD GAS OXYGEN CONTENT 14.8 Vol % (12.0-20.0); BLOOD GAS PCO2 30 mmHg (38-42); BLOOD GAS PO2 107 mmHg (61-120); BLOOD GAS TOTAL HGB 10.8 G/DL (12.0-16.0); CRITICAL VALUE NO; OXYGEN DEVICE VENTILATOR; TEMP CORR TO 98.6
[2016-10-20 05:26] LABS: DRAW SITE ART LINE; FIO2 50 %; STAT NO; VENT SETTINGS PRVC/AC
--- NOTE | 2016-10-20 06:45 | MB ---
cc: KAIDEN MATA MD DATE OF CONSULTATION 10/19/2016 REASON FOR CONSULTATION TBI with possible seizures on the EEG The patient during the encounter is sedated and intubated, hence the medical information is obtained from the records and from the nurse. Mr. Nixon is a 56-year-old male who was brought to [facility] as a trauma alert after he fell 10 feet from a ladder with a GCS of six at the scene which improved on arrival in the ER. Imaging study reveals occipital skull fracture subdural and subarachnoid hemorrhage. The next day, the patient developed worsening agitation. Given that the patient drinks 12 beers a day as per and has a tendency for withdrawal very quickly, hence the patient was subsequently intubated and placed on mechanical ventilation. A repeat CT 24 hours after arrival revealed worsening of bilateral subdural and subarachnoid hemorrhage with right temporal parietal subdural hemorrhage with 9 mm leftward midline shift. Craniotomy and a drain in place and during the encounter today intracranial pressure was at 13 mm of water and there was a reported significant elevation in the ICP last night to 22-23, hence mannitol has been started. REVIEW OF SYSTEMS Unable to obtain. FAMILY HISTORY Unable to obtain. SOCIAL HISTORY Unable to obtain. PAST MEDICAL HISTORY Unable to obtain. EXAMINATION GENERAL: Mechanically ventilated and sedated. NECK: No JVD, no carotid bruit. CHEST: Clear to auscultation bilaterally. No wheezes. CARDIOVASCULAR: Regular rate and rhythm. EXTREMITIES: No edema. No abnormal posturing. NEUROLOGIC: Sedated, right eye swelling, unable to open to assess for pupil size. Left pupil 2 mm sluggish reflex. Negative gag and cough reflexes. Plantar's bilateral downgoing. No gaze deviation on examining the left eye. DIAGNOSTIC IMAGING - Head CT on 10/19/2016 with interval parietal right-sided craniotomy with evacuation of right subdural hematoma and decreased midline shift. DIAGNOSTICS - EEG on 10/19 was reported as an abnormal study consistent with significant encephalopathy. In addition, there is sharp activity over the right hemisphere involving mainly the parietal area, but also some temporal area which does not appear epileptiform in nature. DIAGNOSTIC IMPRESSION 1. Encephalopathy 2. Occipital skull fracture 3. TBI status fall with bifrontal contusions, right temporal parietal subdural hemorrhage status post craniotomy, subarachnoid hemorrhage. 4. History of alcohol abuse/alcohol withdrawal. 5. Elevated ICP PLAN 1. Neuro checks q. one hourly. 2. Increase Keppra to 1500 twice daily. 3. Keppra level 4. Seizure prophylaxis. 5. CIWA protocol IV folate for alcohol withdrawal. 6. DVT prophylaxis 7. GI prophylaxis Thank you for the opportunity to participate in the care of your patient. Raid MD MINISTERIO Harrison/SHEILA /12:18 AM /6:31 AM MTDD
[2016-10-20 07:09] LABS: AUTOMATED NEUTROPHIL # 12.4 TH/MM3 (1.8-7.7); BASOPHIL # 0.1 TH/MM3 (0-0.2); BASOPHIL % 0.4 % (0.0-2.0); EOSINOPHIL % 0.2 % (0.0-4.0); HEMATOCRIT 32.5 % (39.0-51.0); LYMPHOCYTE # 1.1 TH/MM3 (1.0-4.8); MEAN CELL VOLUME 97.6 FL (80.0-100.0); MEAN CORPUSCULAR HGB CONC 32.8 % (32.0-36.0); NEUT % 77.4 % (16.0-70.0); PLATELET COUNT 239 TH/MM3 (150-450); RED BLOOD COUNT 3.33 MIL/MM3 (4.50-5.90); RED CELL DISTRIBUTION WIDTH 14.1 % (11.6-17.2)
[2016-10-20 07:15] LABS: HEMO FLAGS AUTO DIFF
[2016-10-20 07:31] LABS: BICARBONATE 24.2 MEQ/L (21.0-32.0); MAGNESIUM 2.5 MG/DL (1.5-2.5); POTASSIUM 3.4 MEQ/L (3.5-5.1)
[2016-10-20] MEDS: SODIUM CHLORIDE 0.9% FLUSH 5 ML FLUSH IVF SCH ×2 (07:50→20:17)
[2016-10-20] MEDS ORDERED: MAGNESIUM CITRATE SOLN 300 ML BTL PO ONE (08:15)
[2016-10-20] MEDS: LACTULOSE SYRUP 20 GM/30 ML CUP PO SCH (08:24)
[2016-10-20] MEDS: DOCUSATE SODIUM 100 MG CAP PO SCH ×2 (08:24→20:17)
[2016-10-20] MEDS: CHLORHEXIDINE 0.12% (ORAL KIT) 15 ML CUP MT SCH ×2 (08:24→20:00)
[2016-10-20] MEDS: PANTOPRAZOLE SODIUM 40 MG VIAL IVP SCH (08:24)
[2016-10-20] MEDS: MAGNESIUM HYDROXIDE SUSP 30 ML CUP PO SCH (08:25)
[2016-10-20] MEDS: levETIRAcetam INJ 1,500 MG in SODIUM CHLORIDE 0.9% INJ 100 ML IV SCH ×2 (08:25→20:33)
[2016-10-20] MEDS: cefTRIAXone INJ 2,000 MG in SODIUM CHLORIDE 0.9% INJ 100 ML IV SCH ×2 (08:25→20:17)
[2016-10-20] MEDS: VANCOMYCIN INJ 1,750 MG in SODIUM CHLORID 0.9% 500 ML INJ 500 ML IV SCH ×2 (08:25→21:03)
[2016-10-20] MEDS: predniSONE 5 MG/5 ML CUP PO SCH (08:26)
[2016-10-20 08:34] LABS: PLATELET ESTIMATE SMEAR NORMAL (NORMAL); PLATELET MORPHOLOGY NORMAL (NORMAL); SCAN/DIFF AUTO DIFF CONFIRMED
[2016-10-20] MEDS ORDERED: FOSPHENYTOIN INJ 1,500 MGPE in SODIUM CHLORIDE 0.9% INJ 100 ML IV ONE (09:45)
--- NOTE | 2016-10-20 10:52 | HHI.PR ---
Neuropsych Progress Notes/Response to Tx Time with Patient: 15 minutes Premorbid psychological status Premorbid Cognitive, Emotional and Behavioral Status: Deferred. 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 The patient has no known psychiatric difficulties. However, substance abuse history is significant for alcohol dependence and tobacco dependence. Behavioral Reactions of Patient and Family/Support System: Tenuous. The patients family has a limited understanding of the complexities of this patient 's brain injury, and the lifestyle barriers that prevent an optimal recovery. They are expected to have ongoing issues of adjustment given the nature of the injury, and this aspect of recovery will require ongoing monitoring. Emotional/Behavioral Status of Patient and Family/Support System: Tenuous. Pertinent issues, if appropriate to this patients clinical care, are described in detail above. Maximizing acute care outcome It is recommended that the patient be monitored for emergent behavioral impulsivity as the medical condition evolves. This patients neuropathological challenges may limit their rehabilitation potential going forward, and these challenges will require specialized therapeutic skills to maximize outcome. Additionally, the patients family is experiencing ongoing issues of adjustment given the traumatic nature of the injury, and they [will need / may benefit] from ongoing psychological assistance. Anticipated Problems Ongoing areas of concern could include behavioral impulsivity, lack of insight and judgment, which is expected to improve with time and treatment, provided he moves past this stage of recovery. Presently, the patient is not following commands. His long duration alcohol dependence and tobacco dependence, which has led to global cerebral atrophy, will serve as a double barrier to his recovery from this injury. Treatment Plan This clinician will continue to follow with you throughout the course of this patients rehabilitation treatment, and I will be available to meet with the patients family/support system to facilitate their understanding and the ongoing care of their family member. The goals of neuropsychological intervention shall be both educational and supportive to the family/support system as is deemed clinically appropriate. [facility] Level: I:No response-total assistance Diagnosis: (1) Major neurocognitive disorder as late effect of traumatic brain injury with behavioral disturbance Status: Acute (2) Alcohol dependence Status: Acute Progress Note Narrative Ongoing follow-up of patient who was seen within the context of daily trauma rounding. The patient had made no demonstrable neurobehavioral change since yesterday. Recent EEG noted abnormalities with significant encephalopathy with sharp activity over the right hemisphere. A repeat EEG is pending now that additional antiseizure medication has been started. I will continue to follow with you. Kermit Hughes PhD Oct 20, 2016 10:51 am
[2016-10-20] MEDS: NOREPINEPHRINE INJ 4 MG in SODIUM CHLOR 0.9% 250 ML INJ 246 ML IV SCH (11:19)
--- NOTE | 2016-10-20 12:16 | HHI.NSPN ---
(Viky Bernal) Note Status Status: Progress Note (Viky Bernal) Interval History Interval History 10/19: POD 1 s/p right decompressive craniectomy with evacuation of subdural hematoma. ICPs 22-23 overnight, f/u CT this am shows improved midline shift. currently well sedated. 10/20: POD 2, EEG showed seizures, on [facility], Neurology evaluation. currently well sedated and intubated. ICPs remain below 20. 10/21: POD 3, well sedated, ICPs = 8. right flap still full and tight. (Viky Bernal) Labs, Micro, & Vital Signs Results Date Time Temp Pulse Resp B/P Pulse Ox O2 Delivery O2 Flow Rate FiO2 10/20/16 09:09 99 50 10/20/16 06:00 69 10/20/16 04:16 98 50 10/20/16 04:00 50 10/20/16 04:00 95.5 70 20 129/64 99 10/20/16 04:00 70 10/20/16 02:00 66 10/20/16 01:50 98 50 10/20/16 01:20 98 50 10/20/16 00:00 68 10/20/16 00:00 50 10/20/16 00:00 95.9 68 20 146/78 100 10/19/16 22:00 66 10/19/16 20:50 100 50 10/19/16 20:00 68 10/19/16 20:00 50 10/19/16 20:00 95.7 68 20 142/70 99 10/19/16 18:00 68 10/19/16 16:00 65 10/19/16 16:00 50 10/19/16 16:00 95.2 65 20 141/70 100 10/19/16 14:00 68 10/19/16 12:00 50 10/19/16 12:00 71 10/19/16 12:00 96.3 71 20 150/72 98 10/19/16 11:51 98 50 10/20/16 07:00 Intake Total 6033 ml Output Total 2001 ml Balance 4032 ml Constitutional Vital Signs Date Time Temp Pulse Resp B/P Pulse Ox O2 Delivery O2 Flow Rate FiO2 10/20/16 09:09 99 50 10/20/16 06:00 69 10/20/16 04:16 98 50 10/20/16 04:00 50 10/20/16 04:00 95.5 70 20 129/64 99 10/20/16 04:00 70 10/20/16 02:00 66 10/20/16 01:50 98 50 10/20/16 01:20 98 50 10/20/16 00:00 68 10/20/16 00:00 50 10/20/16 00:00 95.9 68 20 146/78 100 10/19/16 22:00 66 10/19/16 20:50 100 50 10/19/16 20:00 68 10/19/16 20:00 50 10/19/16 20:00 95.7 68 20 142/70 99 10/19/16 18:00 68 10/19/16 16:00 65 10/19/16 16:00 50 10/19/16 16:00 95.2 65 20 141/70 100 10/19/16 14:00 68 10/19/16 12:00 50 10/19/16 12:00 71 10/19/16 12:00 96.3 71 20 150/72 98 10/19/16 11:51 98 50 10/20/16 07:00 Intake Total 6033 ml Output Total 2001 ml Balance 4032 ml (Viky Bernal) Review of Systems/Exam Exam Mr Nixon is intubated and well sedated. Does not open eyes or follow commands Right flap if full and tight. [place] monitor in place, ICP = 8. Two EDY drains in place with minimal output. Surgical healing well, clean, no drainage seen. Cranial Nerves: Pupils 2-3 mm equal, conjugate gaze. Motor: no spontaneous movements, deeply sedated Sensory: no withdrawals to local pain x 4 Plantars silent b/l Cerebellar: cannot assess (Viky Bernal) Medications Current Medications Current Medications Medications (Trade) Dose Ordered Sig/Jony Route PRN Reason Start Time Stop Time Status Last Admin Dose Admin Miscellaneous Information 1 [id number] XX 10/11/16 13:00 10/11/16 13:00 Chlorhexidine Gluconate (Chlorhexidine 2% Cloth) Taper DAILY@04 TOP 10/12/16 04:00 10/08/17 03:59 10/16/16 05:42 Chlorhexidine Gluconate (Chlorhexidine 2% Cloth) 3 pack UNSCH PRN TOP HYGIENIC CARE 10/11/16 13:00 Hydralazine HCl 10 mg 10 mg Q2H PRN IV PUSH SBP greater than 150mm Hg 10/11/16 13:30 10/17/16 09:22 Thiamine HCl/ Sodium Chloride (Thiamine Inj/NS Inj) 101 ml @ 100 mls/hr Q24H IV 10/11/16 20:00 10/19/16 21:32 Chlorhexidine Gluconate (Peridex 0.12% Liq) 15 ml BID@08,20 MT 10/12/16 08:00 10/20/16 08:24 Magnesium Hydroxide (Milk Of Magnesia Liq) 30 ml DAILY PO 10/12/16 10:00 10/20/16 08:25 Lactulose (Lactulose Liq) 30 ml DAILY PO 10/14/16 09:00 10/20/16 08:24 Prednisone (predniSONE LIQ) 20 mg Taper DAILY PO 10/17/16 09:00 10/23/16 08:59 10/20/16 08:26 Metoprolol Tartrate (Lopressor Inj) 5 mg Q6H IV PUSH 10/15/16 13:00 Hold 10/16/16 11:41 Acetaminophen (Tylenol Supp) 650 mg Q4H PRN ND FEVER 10/15/16 12:15 Propranolol HCl (Inderal) 10 mg Q6HR PO 10/17/16 12:00 Hold 10/19/16 05:21 Info 1 1 UNSCH XX 10/17/16 11:00 Nicardipine HCl/ Sodium Chloride (Cardene Inj/NS 250 ml Inj) 250 ml @ 0 mls/hr TITRATE IV 10/17/16 11:45 10/18/16 23:16 IV Flush (NS Flush) 2 ml UNSCH PRN IVF FLUSH AFTER USING IV ACCESS 10/18/16 11:45 IV Flush (NS Flush) 2 ml BID IVF 10/18/16 21:00 10/20/16 07:50 Bisacodyl (Dulcolax Supp) 10 mg DAILY PRN ND CONSTIPATION 10/18/16 11:45 10/18/16 14:36 Docusate Sodium (Colace) 100 mg BID PO 10/18/16 21:00 10/20/16 08:24 Pantoprazole Sodium (Protonix Inj) 40 mg DAILY IVP 10/19/16 09:00 10/20/16 08:24 Ondansetron HCl (Zofran Inj) 4 mg Q6H PRN IV NAUSEA OR VOMITING 10/18/16 11:45 Calcium Gluconate 1 gm 1 gm UNSCH PRN IV SEE LABEL COMMENTS 10/18/16 11:45 Potassium Chloride 100 ml @ 50 mls/hr UNSCH PRN IV POTASSIUM LESS THAN 4 10/18/16 11:45 Magnesium Sulfate/ Sodium Chloride (Magnesium Sulfate Inj/NS Inj) 108 ml @ 108 mls/hr UNSCH PRN IV MAGNESIUM LESS THAN 2 10/18/16 11:45 Acetaminophen 650 mg 650 mg Q4H PRN PO TEMPERATURE > 101.5 F 10/18/16 11:45 10/18/16 22:58 Norepinephrine Bitartrate 4 mg/ Sodium Chloride 250 ml @ 0 mls/hr TITRATE IV 10/19/16 04:07 10/19/16 13:51 Pharmacy Profile Note 0 ml @ 0 mls/hr UNSCH OTHER 10/19/16 07:45 Ceftriaxone Sodium 2000 mg/ Sodium Chloride 100 ml @ 200 mls/hr Q12H IV 10/19/16 08:00 10/20/16 08:25 Midazolam HCl 100 ml @ 0 mls/hr TITRATE IV 10/19/16 08:00 10/20/16 02:38 Sodium Chloride 500 ml @ 40 mls/hr UNSCH IV 10/19/16 08:00 10/19/16 09:14 Propofol (Diprivan 1000 Mg/100ml Inj) 100 ml @ 0 mls/hr TITRATE IV 10/19/16 10:00 10/20/16 08:26 Miscellaneous Information SPECIFIC LAB TO BE LETTY... ONCE ONCE XX 10/20/16 20:45 10/20/16 20:46 Vancomycin HCl 1750 mg/Sodium Chloride 517.5 ml @ 257.5 mls/ hr Q12H IV 10/20/16 09:00 10/20/16 08:25 Levetriacetam 1500 mg/Sodium Chloride 115 ml @ 420 mls/hr Q12HR IV 10/20/16 09:00 10/20/16 08:25 Fosphenytoin Sodium 1500 mgpe/ Sodium Chloride 130 ml @ 390 mls/hr STAT ONCE IV 10/20/16 09:45 10/20/16 10:04 Fosphenytoin Sodium/Sodium Chloride (Cerebyx Inj/NS Inj) 54 ml @ 216 mls/hr Q12HR IV 10/20/16 21:00 (Viky Bernal) Medical Decision Making MDM Remarks 56 y/o male s/p right decompressive craniectomy with evacuation of SDH, placement of ICP monitor, postop CT Brain with improved midline shift EEG 10/20 showing occasional intermittent epileptiform discharges (Viky Bernal) Plan Plan Remarks cont ICP monitoring cont keep well sedated today, will start sedation weaning tomorrow cont antiepileptics, neuro following nonchemical DVT prophylaxis in view of ICH (Viky Bernal) Attending Statement The exam, history, and the medical decision-making described in the above note were completed with the assistance of the mid-level provider. I reviewed and agree with the findings presented. I attest that I had a [id number] encounter with the patient on the same day, and personally performed and documented my assessment and findings in the medical record. (Chetan Cruz MD) Viky Bernal Oct 20, 2016 11:26 Chetan Cruz MD Oct 20, 2016 14:40 Chetan Cruz MD Oct 20, 2016 14:40
--- NOTE | 2016-10-20 13:41 | HHI.CCPN ---
Subjective Remarks/Hospital Course 10/11: Elderly male who was brought in as a trauma alert after he fell 10 feet from a ladder. GCS 6 initially at the scene subsequently improved to 11 on arrival in the ER. Patient was evaluated by trauma team and subsequently underwent imaging studies and transferred to the ICU. Critical care consult was requested by Dr. Menezes. Patient was initially on a nonrebreather facemask however by the time I saw him he had been switched to nasal cannula and did not appear to be in any acute distress. Imaging studies revealed an occipital skull fracture, subdural and subarachnoid blood. Patient was awake and alert at the time of evaluation and following commands and moving all 4 extremities. He could not hear and had some speech difficulty at the time of my evaluation with difficulty in communication though was following commands appropriately. C spine cleared by Neurosurgery at the time of my evaluation. 10/12: Patient developed worsening agitation despite Precedex last evening. He was started on Ativan as his gives history that he drinks 12 beers a day and if he does not drink has a tendency to go into withdrawal very quickly. Patient was subsequently intubated and placed on mechanical ventilation, his head CT from last evening shows worsening bilateral subdural and subarachnoid hemorrhages, right temporoparietal subdural hemorrhage with 9 mm leftward midline shift. He was started on 3% saline. Currently sedated with Versed/ fentanyl/propofol. 10/13: Remains sedated, orally intubated on mechanical ventilation. On Versed/ fentanyl/propofol drips. Gets agitated on attempting to cut down on propofol which is currently at 30 mics per minute, Versed 10 mg/h, fentanyl 150 g per hour. 10/14: ICPs still borderline, mid-teens. remains sedated. EVD placed yesterday. midline shift slightly improved after EVD placement. 10/15: ICPs improved significantly. < 10 all night. EVD clamped. 10/16: ICPs stable off versed. sodium continues to rise. withdraws to pain x 4. 10/18: not waking up. repeat head CT shows interval expansion of SDH with 1.2 cm midline shift. taken for decompression to OR. Dr. Cruz asked CCM to reconsult and assist in management of post-operative craniectomy. 10/19: overnight, ICP significantly increased. stat repeat head CT without interval change. this morning ICP still elevated 22-23. versed drip started, 3 % infusion started back, 25gm mannitol ordered x 1. now on norepinephrine to maintain cerebral perfusion pressure. 10/20: EEG with sz activity yesterday. keppra increased and neurology consulted. persists on low-dose norepinephrine to maintain cerebral perfusion pressure. 3% continues. ICP continues to be elevated despite sedation and hyperosmolar therapy. propofol up to 100mcg/kg/min, versed 10mg/hr. Objective Vital Signs Date Time Temp Pulse Resp B/P Pulse Ox O2 Delivery O2 Flow Rate FiO2 10/20/16 12:00 94.8 60 18 106/56 98 10/20/16 12:00 50 10/19/16 09:36 Ventilator Intake and Output 10/19/16 10/19/16 10/20/16 08:00 16:00 00:00 Intake Total 1021 ml 2203 ml 1728 ml Output Total 580 ml 990 ml 611 ml Balance 441 ml 1213 ml 1117 ml Result Diagram: 10/20/16 0646 10/20/16 0646 Other Results Laboratory Tests Test 10/20/16 05:10 Blood Gas Puncture Site ART LINE Blood Gas Patient Temperature 98.6 Blood Gas HCO3 22 mmol/L (22-26) Blood Gas Base Excess -1.3 mmol/L (-2-2) Blood Gas Oxygen Saturation 96 % (90-100) Arterial Blood pH 7.48 (7.380-7.420) Arterial Blood Partial 30 mmHg (38-42) Pressure CO2 Arterial Blood Partial 107 mmHg Pressure O2 (61-120) Arterial Blood Oxygen Content 14.8 Vol % (12.0-20.0) Arterial Blood 0.9 % (0-4) Carboxyhemoglobin Arterial Blood Methemoglobin 1.0 % (0-2) Blood Gas Hemoglobin 10.8 G/DL (12.0-16.0) Oxygen Delivery Device VENTILATOR Blood Gas Ventilator Setting PRVC/AC Blood Gas Inspired Oxygen 50 % Imaging Last 24 hours Impressions Chest X-Ray 10/13/16 06 Signed Impressions: Service Date/Time: Thursday, October 13, 2016 04:18 - CONCLUSION: Minimal right base atelectasis or consolidation. Red Joshua MD Last Impressions Chest X-Ray 10/12/16 0600 Signed Impressions: Service Date/Time: Wednesday, October 12, 2016 05:11 - CONCLUSION: Minimal increased density at the bases representing minimal atelectasis or consolidation. Red Joshua MD Head CT 10/11/161999 Signed Impressions: Service Date/Time: Tuesday, October 11, 2016 22:04 - CONCLUSION: Much worse in the interim. There is increased and extensive subdural and subarachnoid blood as above. Multifocal parenchymal hemorrhage now present of both frontal and temporal lobes, especially the right frontal lobe.. There is about 9 mm of leftward midline shift. 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 MD Pelvis X-Ray 10/11/161212 Signed Impressions: Service Date/Time: Tuesday, October 11, 2016 12:02 - CONCLUSION: Satisfactory trauma pelvis appearance. Red Hoffman MD Chest CT 10/11/161212 Signed Impressions: Service Date/Time: Tuesday, October 11, 2016 12:19 - CONCLUSION: Negative for acute traumatic injury. There is no pneumothorax. Davis Nolasco MD FACR Cervical Spine CT 10/11/161212 Signed Impressions: Service Date/Time: Tuesday, October 11, 2016 12:19 - CONCLUSION: Occipital skull fracture. No evidence of acute traumatic injury in the cervical spine Red Hoffman MD Abdomen/Pelvis CT 10/11/161212 Signed Impressions: Service Date/Time: Tuesday, October 11, 2016 12:19 - CONCLUSION: Negative CT scan of the abdomen and pelvis for acute traumatic injury. Davis Nolasco MD FACR Objective Remarks HEENT/Neuro: No pallor or icterus, tongue moist, pupils pinpoint, equal, reactive. RASS -5. deeply sedated. GCS 3. Neck: No JVD Chest/pulmonary: CTA bilaterally Cardiovascular: S1-S2 regular no gallop or murmur GI/abdomen: Soft, nontender, bowel sounds present Extremities: Warm bilaterally, no edema Neuro: PERRL. GCS 3. no movements peripherally. A/P Assessment and Plan Assessment: 56yM s/p trauma with TBI, bifrontal contusions, right SDH s/p right crani decompression, traumatic SAH. Continues to be very critically ill. Discussed case with Dr. Cruz and trauma team. Plan today for Cerebyx load and repeat EEG. continue sedation while elevated ICP. will attempt to wean propofol if ICP comes down. Too high risk for trach given elevated ICP-- could consider trach in the coming days if ICP controlled. Too high risk to replace central line today again given I do not want to lie him flat with elevated ICP. Plan: Neuro: Encephalopathy Occipital skull fracture TBI with bifrontal contusions, bifrontal, right temporoparietal subdural hemorrhage, subarachnoid hemorrhage Hearing loss History of alcohol abuse Suspected alcohol withdrawal Malignant Cerebral Edema S/p decompressive craniotomy Seizures --Follow neuro checks --neurosurgery consulted and following: Dr. Cruz --does not meet criteria for sedation vacation given elevated ICP. -- Increase Keppra to 1500mg BID. check keppra level -- Cerebyx load, and 200mg q12h. -- thiamine/folate acid for alcohol withdrawal. -- EEG today to eval interval change in ictal activity. -- versed, propofol. add fentanyl for sedation and ICP. -- propofol drip, max dose 100 mcg/kg/min -- 3% at 40cc/hr. serial sodiums. Cardiovascular: Intermittent Hypotension and Hypertension -- d/c NS mivf. -- SBP goals < 160 to maintain cerebral perfusion pressure -- intermittently using Norepinephrine and Nicardipine. very hemodynamically labile. --Labetalol/hydralazine when necessary for hypertension. -- hold propranolol given hemodynamic instability. Pulmonary: Suspected COPD Acute hypoxic and hypercarbic respiratory failure requiring mechanical ventilation -- Continue mechanical ventilation, vent bundle, Bronchodilators. -- Maintain end-tidal CO2 30-35. -- steroid taper with prednisone 40mg daily and slow wean over 5 days. (taper already ordered, finishes 3/) -- no SBT while elevated ICP. GI/liver: Acute protein calorie malnutrition-mild Hypernatremia -- hold tube feeds today while on vasopressors. will restart when more hemodynamically stable. -- hold free water. goal Na 145-150 -- daily BMP Renal/: -- strict intake output, monitor and replete electrolytes, follow BUN/ creatinine. Estrella catheterization. ID: H. Influenza pneumonia Leukocytosis Fever -- Vancomycin with pharmacy dosing -- Rocephin 2gm iv q12h (empiric meningitic dosing). -- yost cultures no growth to date. Endocrine: -- Watch for hyperglycemia, SSI for glycemic control if needed -- steroid taper for presumed COPD exacerbation as described above. Heme: Anemia of Acute Blood Loss -- Follow CBC -- does not meet transfusion triggers at this time. Prophylaxis: -- PPI/SCDs. -- No heparin or Lovenox in view of TBI till cleared by Neurosurgery Condition remains critical with persistently life-threatening elevated ICP and TBI now s/p decompressive crani, hypoxic respiratory failure, malignant edema, hypotension requiring vasopressors, seizures. Time spent on critical care excluding procedures 91 minutes. this time was in addition to and separate in time and discontinuous from any other documented critical care time today. Oswaldo Chambers MD Oct 20, 2016 13:41
--- NOTE | 2016-10-20 16:50 | HHI.PR ---
Subjective Subjective Comments Intubated and sedated on vent. ICP monitor in place. Allergies: Coded Allergies: UNOBTAINABLE (Unverified , 10/11/16) Review of Systems All other ROS: Unable to obtain Exam I&O / VS 10/19/16 10/19/16 10/20/16 15:00 23:00 07:00 Intake Total 2203 ml 1728 ml 2102 ml Output Total 990 ml 611 ml 400 ml Balance 1213 ml 1117 ml 1702 ml IV Total 1712 ml 1397 ml 1871 ml Tube Feeding 331 ml 231 ml Lipid 341 ml Other 150 ml 0 ml 0 ml Output Urine Total 950 ml 600 ml 400 ml Drainage Total 40 ml 11 ml 0 ml # Bowel Movements 0 0 0 Vital Signs Date Time Temp Pulse Resp B/P Pulse Ox O2 Delivery O2 Flow Rate FiO2 10/20/16 16:24 98 50 10/20/16 16:24 98 50 10/20/16 16:00 81 10/20/16 16:00 96.3 81 16 139/64 98 10/20/16 16:00 50 10/20/16 14:00 61 10/20/16 12:00 94.8 60 18 106/56 98 10/20/16 12:00 50 10/20/16 12:00 60 10/20/16 11:45 50 10/20/16 11:42 98 50 10/20/16 11:36 97 50 10/20/16 10:00 59 10/20/16 09:09 99 50 10/20/16 08:00 95.7 67 18 132/66 99 10/20/16 08:00 50 10/20/16 08:00 60 10/20/16 06:00 69 10/20/16 04:16 98 50 10/20/16 04:00 50 10/20/16 04:00 95.5 70 20 129/64 99 10/20/16 04:00 70 10/20/16 02:00 66 10/20/16 01:50 98 50 10/20/16 01:20 98 50 10/20/16 00:00 68 10/20/16 00:00 50 10/20/16 00:00 95.9 68 20 146/78 100 10/19/16 22:00 66 10/19/16 20:50 100 50 10/19/16 20:00 68 10/19/16 20:00 50 10/19/16 20:00 95.7 68 20 142/70 99 10/19/16 18:00 68 General: Intubated (on vent), Sedated, Other (ICP monitor in place ) Respiratory: Coarse breath sounds Musculoskeletal: ROM (Grossly within normal limits) Orientation: unable to asses Self, unable to asses Place, unable to asses Time , unable to asses Situation Objective Micro and Labs Laboratory Tests Test 10/19/16 10/20/16 10/20/16 10/20/16 19:10 00:30 05:10 06:46 Sodium Level 150 153 151 Serum Osmolality 315 318 Blood Gas Puncture Site ART LINE Blood Gas Patient Temperature 98.6 Blood Gas HCO3 22 Blood Gas Base Excess -1.3 Blood Gas Oxygen Saturation 96 Arterial Blood pH 7.48 Arterial Blood Partial 30 Pressure CO2 Arterial Blood Partial 107 Pressure O2 Arterial Blood Oxygen Content 14.8 Arterial Blood 0.9 Carboxyhemoglobin Arterial Blood Methemoglobin 1.0 Blood Gas Hemoglobin 10.8 Oxygen Delivery Device VENTILATOR Blood Gas Ventilator Setting PRVC/AC Blood Gas Inspired Oxygen 50 White Blood Count 16.0 Red Blood Count 3.33 Hemoglobin 10.6 Hematocrit 32.5 Mean Corpuscular Volume 97.6 Mean Corpuscular Hemoglobin 32.0 Mean Corpuscular Hemoglobin 32.8 Concent Red Cell Distribution Width 14.1 Platelet Count 239 Mean Platelet Volume 8.7 Neutrophils (%) (Auto) 77.4 Lymphocytes (%) (Auto) 7.0 Monocytes (%) (Auto) 15.0 Eosinophils (%) (Auto) 0.2 Basophils (%) (Auto) 0.4 Neutrophils # (Auto) 12.4 Lymphocytes # (Auto) 1.1 Monocytes # (Auto) 2.4 Eosinophils # (Auto) 0.0 Basophils # (Auto) 0.1 CBC Comment AUTO DIFF Differential Comment AUTO DIFF CONFIRMED Platelet Estimate NORMAL Platelet Morphology Comment NORMAL Potassium Level 3.4 Chloride Level 120 Carbon Dioxide Level 24.2 Anion Gap 7 Blood Urea Nitrogen 24 Creatinine 0.60 Estimat Glomerular Filtration 139 Rate Random Glucose 148 Calcium Level 7.9 Phosphorus Level 2.7 Magnesium Level 2.5 Test 10/20/16 12:30 Sodium Level 152 Date/Time Procedure Status Source Growth 10/19/16 12:00 Aerobic Blood Culture - Preliminary Resulted Blood Peripheral NO GROWTH IN 1 DAY 10/19/16 12:00 Anaerobic Blood Culture - Preliminary Resulted Blood Peripheral NO GROWTH IN 1 DAY Assessment and Plan Diagnosis: (1) Traumatic brain injury Assessment 1. Fall from ladder with severe TBI including occipital fracture, SDH and SAH S/ P right FTP craniectomy with evacuation of SDH currently intubated and sedated on vent with ICP monitor in place 2. Seizure Plan 1. PT/OT following for ROM 2. Appreciate Neuropsychology followup. 3. Will continue to follow while hospitalized and at discharge 4. Continue to turn and reposition to protect skin 5. Referral to [facility] Tamanna Munson MD Oct 20, 2016 16:49
[2016-10-20] MEDS: 3% SALINE INJ 500 ML IV SCH ×2 (16:55→22:45)
--- NOTE | 2016-10-20 17:09 | MG ---
cc: TEMO FLOWER M.D. Lab No: Date: 10/20/2016 Age: Sex: M Race: EEG NUMBER [id number] TECHNIQUE 17 channel EEG. DESCRIPTION The background rhythm is very slow mainly in the delta activity, 3-4 Hz of relatively low amplitude. Sharp activity identified bilaterally but more over the right hemisphere with phase reversal occurring intermittently. INTERPRETATION Abnormal study consistent with severe encephalopathy. There is some sharp activity over the right hemisphere suggesting occasional intermittent epileptiform discharges. Temo Flower MD SHANDRA/KK /4:44 PM /5:00 PM
[2016-10-20] MEDS: FOSPHENYTOIN INJ 200 MGPE in SODIUM CHLORIDE 0.9% INJ 50 ML IV SCH (20:17)
[2016-10-20] MEDS: THIAMINE INJ 100 MG in SODIUM CHLORIDE 0.9% INJ 100 ML IV SCH (20:33)
[2016-10-20] MEDS ORDERED: PHARMACY ORDERED LAB XX ONE (20:45)
[2016-10-20] MEDS ORDERED: FOSPHENYTOIN SODIUM 100 MG PE/2 ML VIAL IV SCH (21:00)
[2016-10-20] MEDS: fentaNYL 2,500 MCG/NS 250 ML IV SCH (22:39)
[2016-10-21] VITALS (17 sets, daily range): BP systolic 83–147; BP diastolic 56–66; PULSE 77–100; RESP 16–17; TEMP 96.9–98.1; O2SAT 92–99
--- NOTE | 2016-10-21 03:25 | RADRPT ---
EXAM DATE/TIME: 10/21/2016 02:38 [place] COMPARISON: CHEST SINGLE AP, October 20, 2016, 3:57. INDICATIONS : Respiratory distress. MEDICAL HISTORY : Hypertension. Cardiovascular disease. SURGICAL HISTORY : Craniotomy. ENCOUNTER: Subsequent ACUITY: 1 week PAIN SCORE: Non-responsive. LOCATION: Bilateral chest FINDINGS: Endotracheal tube tip in satisfactory position. A central line in superior vena cava. NG enters stoma ch. Bilateral mostly basilar airspace consolidation not significantly changed since October 20. No pneum othorax. CONCLUSION: 1. Basilar airspace disease not significantly changed since October 20. Support apparatus in satisfactor y position. Tyrel Olmos MD on October 21, 2016 at 3:21 Board Certified Radiologist. This report was verified electronically.
[2016-10-21 04:46] LABS: AUTOMATED NEUTROPHIL # 11.4 TH/MM3 (1.8-7.7); BASOPHIL # 0.1 TH/MM3 (0-0.2); BASOPHIL % 0.5 % (0.0-2.0); EOSINOPHIL # 0.1 TH/MM3 (0-0.4); EOSINOPHIL % 0.6 % (0.0-4.0); HEMATOCRIT 31.7 % (39.0-51.0); LYMPH % 5.8 % (9.0-44.0); LYMPHOCYTE # 0.8 TH/MM3 (1.0-4.8); MEAN CELL VOLUME 98.7 FL (80.0-100.0); MEAN CORPUSCULAR HEMOGLOBIN 32.1 PG (27.0-34.0); MEAN CORPUSCULAR HGB CONC 32.6 % (32.0-36.0); MONO % 14.4 % (0.0-8.0); NEUT % 78.7 % (16.0-70.0); PLATELET COUNT 232 TH/MM3 (150-450); RED BLOOD COUNT 3.21 MIL/MM3 (4.50-5.90); RED CELL DISTRIBUTION WIDTH 14.5 % (11.6-17.2); WHITE BLOOD COUNT 14.4 TH/MM3 (4.0-11.0)
[2016-10-21 04:50] LABS: HEMO FLAGS AUTO DIFF
[2016-10-21 05:12] LABS: BLOOD GAS BASE EXCESS -3.9 mmol/L (-2-2); BLOOD GAS CARBOXYHEMOGLOBIN 0.7 % (0-4); BLOOD GAS HCO3 21 mmol/L (22-26); BLOOD GAS METHEMOGLOBIN 0.9 % (0-2); BLOOD GAS O2 HGB SATURATION 94 % (90-100); BLOOD GAS PCO2 38 mmHg (38-42); BLOOD GAS PO2 88 mmHg (61-120); BLOOD GAS TOTAL HGB 12.8 G/DL (12.0-16.0); TEMP CORR TO 98.6
[2016-10-21 05:13] LABS: CRITICAL VALUE NO; OXYGEN DEVICE VENTILATOR
[2016-10-21 05:14] LABS: DRAW SITE ART LINE; FIO2 50 %; STAT NO; VENT SETTINGS SEE COMMENTS
[2016-10-21 05:15] LABS: ALKALINE PHOSPHATASE 101 U/L (45-117); ALT (GPT) 52 U/L (12-78); ANION GAP 7 MEQ/L (5-15); AST (GOT) 37 U/L (15-37); BICARBONATE 24.4 MEQ/L (21.0-32.0); BLOOD UREA NITROGEN 22 MG/DL (7-18); CHLORIDE 126 MEQ/L (98-107); GLOMERULAR FILTRATION RATE 129 ML/MIN (>89); MAGNESIUM 2.7 MG/DL (1.5-2.5); POTASSIUM 3.9 MEQ/L (3.5-5.1); TOTAL BILIRUBIN ADULT 0.3 MG/DL (0.2-1.0)
[2016-10-21 05:18] LABS: SODIUM (NA) 157 MEQ/L (136-145)
[2016-10-21] MEDS: MIDAZOLAM 100 MG/ML INJ 100 ML IV SCH ×2 (05:30→14:35)
[2016-10-21] MEDS: hydrALAZINE HCL 20 MG/ML VIAL IV PUSH PRN (05:30)
[2016-10-21] MEDS: PROPOFOL 1000 MG/100 ML INJ 100 ML IV SCH ×4 (05:32→18:12)
[2016-10-21] MEDS: 3% SALINE INJ 500 ML IV SCH ×2 (05:32→22:45)
[2016-10-21 07:38] LABS: BANDS 18 % (0-6); BASOPHILS 1 % (0-2); PLATELET ESTIMATE SMEAR NORMAL (NORMAL); PLATELET MORPHOLOGY NORMAL (NORMAL); POLYS (SEG NEUTROPHILS) 65 % (16-70); SCAN/DIFF FINAL DIFF MANUAL; WBC DIFF SAMPLE 100
[2016-10-21] MEDS: CHLORHEXIDINE 0.12% (ORAL KIT) 15 ML CUP MT SCH ×2 (08:02→20:13)
[2016-10-21] MEDS: cefTRIAXone INJ 2,000 MG in SODIUM CHLORIDE 0.9% INJ 100 ML IV SCH ×2 (08:02→20:15)
[2016-10-21] MEDS: VANCOMYCIN INJ 1,750 MG in SODIUM CHLORID 0.9% 500 ML INJ 500 ML IV SCH ×2 (08:03→20:16)
[2016-10-21] MEDS: FOSPHENYTOIN INJ 200 MGPE in SODIUM CHLORIDE 0.9% INJ 50 ML IV SCH ×2 (08:03→20:14)
[2016-10-21] MEDS: MAGNESIUM HYDROXIDE SUSP 30 ML CUP PO SCH (08:03)
[2016-10-21] MEDS: levETIRAcetam INJ 1,500 MG in SODIUM CHLORIDE 0.9% INJ 100 ML IV SCH (08:03)
[2016-10-21] MEDS: LACTULOSE SYRUP 20 GM/30 ML CUP PO SCH ×3 (08:03→18:12)
[2016-10-21] MEDS: DOCUSATE SODIUM 100 MG CAP PO SCH ×2 (08:04→20:16)
[2016-10-21] MEDS: PANTOPRAZOLE SODIUM 40 MG VIAL IVP SCH (08:04)
[2016-10-21] MEDS: SODIUM CHLORIDE 0.9% FLUSH 5 ML FLUSH IVF SCH ×2 (08:04→20:16)
[2016-10-21] MEDS: predniSONE 5 MG/5 ML CUP PO SCH (08:04)
[2016-10-21] MEDS ORDERED: predniSONE 5 MG/5 ML CUP PO ONE (10:00)
--- NOTE | 2016-10-21 10:25 | HHI.CCPN ---
Subjective Remarks/Hospital Course 10/11: Elderly male who was brought in as a trauma alert after he fell 10 feet from a ladder. GCS 6 initially at the scene subsequently improved to 11 on arrival in the ER. Patient was evaluated by trauma team and subsequently underwent imaging studies and transferred to the ICU. Critical care consult was requested by Dr. Menezes. Patient was initially on a nonrebreather facemask however by the time I saw him he had been switched to nasal cannula and did not appear to be in any acute distress. Imaging studies revealed an occipital skull fracture, subdural and subarachnoid blood. Patient was awake and alert at the time of evaluation and following commands and moving all 4 extremities. He could not hear and had some speech difficulty at the time of my evaluation with difficulty in communication though was following commands appropriately. C spine cleared by Neurosurgery at the time of my evaluation. 10/12: Patient developed worsening agitation despite Precedex last evening. He was started on Ativan as his gives history that he drinks 12 beers a day and if he does not drink has a tendency to go into withdrawal very quickly. Patient was subsequently intubated and placed on mechanical ventilation, his head CT from last evening shows worsening bilateral subdural and subarachnoid hemorrhages, right temporoparietal subdural hemorrhage with 9 mm leftward midline shift. He was started on 3% saline. Currently sedated with Versed/ fentanyl/propofol. 10/13: Remains sedated, orally intubated on mechanical ventilation. On Versed/ fentanyl/propofol drips. Gets agitated on attempting to cut down on propofol which is currently at 30 mics per minute, Versed 10 mg/h, fentanyl 150 g per hour. 10/14: ICPs still borderline, mid-teens. remains sedated. EVD placed yesterday. midline shift slightly improved after EVD placement. 10/15: ICPs improved significantly. < 10 all night. EVD clamped. 10/16: ICPs stable off versed. sodium continues to rise. withdraws to pain x 4. 10/18: not waking up. repeat head CT shows interval expansion of SDH with 1.2 cm midline shift. taken for decompression to OR. Dr. Cruz asked CCM to reconsult and assist in management of post-operative craniectomy. 10/19: overnight, ICP significantly increased. stat repeat head CT without interval change. this morning ICP still elevated 22-23. versed drip started, 3 % infusion started back, 25gm mannitol ordered x 1. now on norepinephrine to maintain cerebral perfusion pressure. 10/20: EEG with sz activity yesterday. keppra increased and neurology consulted. persists on low-dose norepinephrine to maintain cerebral perfusion pressure. 3% continues. ICP continues to be elevated despite sedation and hyperosmolar therapy. propofol up to 100mcg/kg/min, versed 10mg/hr. 10/21: EEG slightly improved after Cerebyx load, and ICP significantly improved. slightly weaning high-dose sedatives, but not planning to perform sedation vacation today. 3% continues today. vasopressors weaned off overnight. Objective Vital Signs Date Time Temp Pulse Resp B/P Pulse Ox O2 Delivery O2 Flow Rate FiO2 10/21/16 08:31 93 50 10/21/16 06:00 100 10/21/16 04:00 97.5 16 143/66 10/19/16 09:36 Ventilator Intake and Output 10/20/16 10/20/16 10/21/16 08:00 16:00 00:00 Intake Total 2102 ml 2729 ml 2410 ml Output Total 400 ml 375 ml 380.0 ml Balance 1702 ml 2354 ml 2030.0 ml Result Diagram: 10/21/16 0415 10/21/16 0415 Other Results Laboratory Tests Test 10/21/16 04:58 Blood Gas Puncture Site ART LINE Blood Gas Patient Temperature 98.6 Blood Gas HCO3 21 mmol/L (22-26) Blood Gas Base Excess -3.9 mmol/L (-2-2) Blood Gas Oxygen Saturation 94 % (90-100) Arterial Blood pH 7.35 (7.380-7.420) Arterial Blood Partial 38 mmHg (38-42) Pressure CO2 Arterial Blood Partial 88 mmHg Pressure O2 (61-120) Arterial Blood Oxygen Content 17.0 Vol % (12.0-20.0) Arterial Blood 0.7 % (0-4) Carboxyhemoglobin Arterial Blood Methemoglobin 0.9 % (0-2) Blood Gas Hemoglobin 12.8 G/DL (12.0-16.0) Oxygen Delivery Device VENTILATOR Blood Gas Ventilator Setting SEE COMMENTS Blood Gas Inspired Oxygen 50 % Imaging Last 24 hours Impressions Chest X-Ray 10/13/16 0600 Signed Impressions: Service Date/Time: Thursday, October 13, 2016 04:18 - CONCLUSION: Minimal right base atelectasis or consolidation. Red Joshua MD Last Impressions Chest X-Ray 10/12/16 0600 Signed Impressions: Service Date/Time: Wednesday, October 12, 2016 05:11 - CONCLUSION: Minimal increased density at the bases representing minimal atelectasis or consolidation. Red Joshua MD Head CT 10/11/161999 Signed Impressions: Service Date/Time: Tuesday, October 11, 2016 22:04 - CONCLUSION: Much worse in the interim. There is increased and extensive subdural and subarachnoid blood as above. Multifocal parenchymal hemorrhage now present of both frontal and temporal lobes, especially the right frontal lobe.. There is about 9 mm of leftward midline shift. 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 MD Pelvis X-Ray 10/11/16 121 Signed Impressions: Service Date/Time: Tuesday, October 11, 2016 12:02 - CONCLUSION: Satisfactory trauma pelvis appearance. Red Hoffman MD Chest CT 10/11/16 121 Signed Impressions: Service Date/Time: Tuesday, October 11, 2016 12:19 - CONCLUSION: Negative for acute traumatic injury. There is no pneumothorax. Davis Nolasco MD FACR Cervical Spine CT 10/11/16 121 Signed Impressions: Service Date/Time: Tuesday, October 11, 2016 12:19 - CONCLUSION: Occipital skull fracture. No evidence of acute traumatic injury in the cervical spine Red Hoffman MD Abdomen/Pelvis CT 10/11/16 1213 Signed Impressions: Service Date/Time: Tuesday, October 11, 2016 12:19 - CONCLUSION: Negative CT scan of the abdomen and pelvis for acute traumatic injury. Davis Nolasco MD FACR Objective Remarks HEENT/Neuro: No pallor or icterus, tongue moist, pupils pinpoint, equal, reactive. RASS -5. deeply sedated. GCS 3. Neck: No JVD Chest/pulmonary: CTA bilaterally Cardiovascular: S1-S2 regular no gallop or murmur GI/abdomen: Soft, nontender, bowel sounds present Extremities: Warm bilaterally, no edema Neuro: PERRL. GCS 3. no movements peripherally. A/P Assessment and Plan Assessment: 56yM s/p trauma with TBI, bifrontal contusions, right SDH s/p right crani decompression, traumatic SAH. Continues to be very critically ill. Discussed case with Dr. Cruz and trauma team. Plan today for another 24h of sedation. will gently wean some sedation today just to mitigate context- sensitive half-time, but no sedation vacation. keep hyperosmolar therapy today. Still not stable enough from ICP standpoint for tracheostomy. Plan: Neuro: Encephalopathy Occipital skull fracture TBI with bifrontal contusions, bifrontal, right temporoparietal subdural hemorrhage, subarachnoid hemorrhage Hearing loss History of alcohol abuse Suspected alcohol withdrawal Malignant Cerebral Edema S/p decompressive craniotomy Seizures --Follow neuro checks --neurosurgery consulted and following: Dr. Cruz --no sedation vacation today. -- Keppra 1500mg BID. -- Cerebyx 200mg iv q12h. -- thiamine/folate acid for alcohol withdrawal. -- versed, propofol, fentanyl for sedation and ICP. if ICP hold, will attempt to wean propofol and versed slightly. -- propofol drip, max dose 100 mcg/kg/min -- 3% at 40cc/hr. serial sodiums. Cardiovascular: Intermittent Hypotension and Hypertension -- SBP goals < 160 to maintain cerebral perfusion pressure -- intermittently using Norepinephrine and Nicardipine. very hemodynamically labile. --Labetalol/hydralazine when necessary for hypertension. -- hold propranolol given hemodynamic instability. Pulmonary: Suspected COPD Acute hypoxic and hypercarbic respiratory failure requiring mechanical ventilation -- Continue mechanical ventilation, vent bundle, Bronchodilators. -- Maintain end-tidal CO2 30-35. -- steroid taper with prednisone 30mg daily and slow wean over 5 days. (taper already ordered, finishes 3/) -- no SBT while elevated ICP. GI/liver: Acute protein calorie malnutrition-mild Hypernatremia -- restart tube feeds. -- hold free water. goal Na 145-150 -- daily BMP Renal/: -- strict intake output, monitor and replete electrolytes, follow BUN/ creatinine. Estrella catheterization. ID: H. Influenza pneumonia Leukocytosis Fever -- Vancomycin with pharmacy dosing -- Rocephin 2gm iv q12h (empiric meningitic dosing). -- yost cultures no growth to date. Endocrine: -- Watch for hyperglycemia, SSI for glycemic control if needed -- steroid taper for presumed COPD exacerbation as described above. Heme: Anemia of Acute Blood Loss -- Follow CBC -- does not meet transfusion triggers at this time. Prophylaxis: -- PPI/SCDs. -- No heparin or Lovenox in view of TBI till cleared by Neurosurgery Condition remains critical with persistently life-threatening elevated ICP and TBI now s/p decompressive crani, hypoxic respiratory failure, malignant edema, hypotension requiring vasopressors, seizures. Time spent on critical care excluding procedures 57 minutes. this time was in addition to and separate in time and discontinuous from any other documented critical care time today. Oswaldo Chambers MD Oct 21, 2016 10:25 Oswaldo Chambers MD Oct 21, 2016 10:25
--- NOTE | 2016-10-21 10:56 | HHI.PR ---
Neuropsych Progress Notes/Response to Tx Time with Patient: 15 minutes Premorbid psychological status Premorbid Cognitive, Emotional and Behavioral Status: Deferred. 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 The patient has no known psychiatric difficulties. However, substance abuse history is significant for alcohol dependence and tobacco dependence. Behavioral Reactions of Patient and Family/Support System: Tenuous. The patients family has a limited understanding of the complexities of this patient 's brain injury, and the lifestyle barriers that prevent an optimal recovery. They are expected to have ongoing issues of adjustment given the nature of the injury, and this aspect of recovery will require ongoing monitoring. Emotional/Behavioral Status of Patient and Family/Support System: Tenuous. Pertinent issues, if appropriate to this patients clinical care, are described in detail above. Maximizing acute care outcome It is recommended that the patient be monitored for emergent behavioral impulsivity as the medical condition evolves. This patients neuropathological challenges may limit their rehabilitation potential going forward, and these challenges will require specialized therapeutic skills to maximize outcome. Additionally, the patients family is experiencing ongoing issues of adjustment given the traumatic nature of the injury, and they [will need / may benefit] from ongoing psychological assistance. Anticipated Problems Ongoing areas of concern could include behavioral impulsivity, lack of insight and judgment, which is expected to improve with time and treatment, provided he moves past this stage of recovery. Presently, the patient is not following commands. His long duration alcohol dependence and tobacco dependence, which has led to global cerebral atrophy, will serve as a double barrier to his recovery from this injury. Treatment Plan This clinician will continue to follow with you throughout the course of this patients rehabilitation treatment, and I will be available to meet with the patients family/support system to facilitate their understanding and the ongoing care of their family member. The goals of neuropsychological intervention shall be both educational and supportive to the family/support system as is deemed clinically appropriate. [facility] Level: I:No response-total assistance Diagnosis: (1) Major neurocognitive disorder as late effect of traumatic brain injury with behavioral disturbance Status: Acute (2) Alcohol dependence Status: Acute Progress Note Narrative Ongoing follow-up of patient within the context of daily trauma rounding. There has been no neurobehavioral change in this patient. Repeat EEG was still abnormal with sharp activity of the right hemisphere consistent with occasional intermittent epileptiform discharges. I will continue to follow with you. Kermit Hughes PhD Oct 21, 2016 10:56 am
[2016-10-21] MEDS ORDERED: MAGNESIUM CITRATE SOLN 300 ML BTL PO ONE (11:00)
[2016-10-21] MEDS: DOCUSATE SODIUM 50 MG/SENNA 8.6 MG TAB PO SCH ×2 (11:00→20:16)
[2016-10-21] MEDS: POLYETHYLENE GLYCOL 17 GM PKG PO SCH ×2 (11:00→21:27)
--- NOTE | 2016-10-21 13:28 | HHI.NSPN ---
(Viky Bernal) Note Status Status: Progress Note (Viky Bernal) Interval History Interval History 10/19: POD 1 s/p right decompressive craniectomy with evacuation of subdural hematoma. ICPs 22-23 overnight, f/u CT this am shows improved midline shift. currently well sedated. 10/20: POD 2, EEG showed seizures, on Keppra, Neurology evaluation. currently well sedated and intubated. ICPs below 20. 10/21: POD 3, well sedated, ICPs currently at 8. right flap still full and tight. (Viky Bernal) Labs, Micro, & Vital Signs Results Date Time Temp Pulse Resp B/P Pulse Ox O2 Delivery O2 Flow Rate FiO2 10/21/16 12:00 88 10/21/16 12:00 50 10/21/16 12:00 98.1 86 16 83/56 92 10/21/16 10:00 86 10/21/16 08:31 93 50 10/21/16 08:00 85 16 123/58 93 10/21/16 08:00 86 10/21/16 08:00 50 10/21/16 06:00 100 10/21/16 04:22 97 50 10/21/16 04:00 89 10/21/16 04:00 50 10/21/16 04:00 97.5 89 16 143/66 99 10/21/16 02:00 86 10/21/16 01:12 99 50 10/21/16 00:00 84 10/21/16 00:00 50 10/21/16 00:00 97.3 84 16 126/59 98 Automatic Cuff 10/20/16 22:00 88 10/20/16 20:32 100 50 10/20/16 20:32 100 50 10/20/16 20:00 80 10/20/16 20:00 97.1 82 16 134/61 100 10/20/16 20:00 50 10/20/16 18:00 81 10/20/16 16:24 98 50 10/20/16 16:24 98 50 10/20/16 16:00 81 10/20/16 16:00 96.3 81 16 139/64 98 10/20/16 16:00 50 10/20/16 14:00 61 10/21/16 07:00 Intake Total 6984 ml Output Total 1162.0 ml Balance 5822.0 ml Constitutional Vital Signs Date Time Temp Pulse Resp B/P Pulse Ox O2 Delivery O2 Flow Rate FiO2 10/21/16 12:00 88 10/21/16 12:00 50 10/21/16 12:00 98.1 86 16 83/56 92 10/21/16 10:00 86 10/21/16 08:31 93 50 10/21/16 08:00 85 16 123/58 93 10/21/16 08:00 86 10/21/16 08:00 50 10/21/16 06:00 100 10/21/16 04:22 97 50 10/21/16 04:00 89 10/21/16 04:00 50 10/21/16 04:00 97.5 89 16 143/66 99 10/21/16 02:00 86 10/21/16 01:12 99 50 10/21/16 00:00 84 10/21/16 00:00 50 10/21/16 00:00 97.3 84 16 126/59 98 Automatic Cuff 10/20/16 22:00 88 10/20/16 20:32 100 50 10/20/16 20:32 100 50 10/20/16 20:00 80 10/20/16 20:00 97.1 82 16 134/61 100 10/20/16 20:00 50 10/20/16 18:00 81 10/20/16 16:24 98 50 10/20/16 16:24 98 50 10/20/16 16:00 81 10/20/16 16:00 96.3 81 16 139/64 98 10/20/16 16:00 50 10/20/16 14:00 61 10/21/16 07:00 Intake Total 6984 ml Output Total 1162.0 ml Balance 5822.0 ml (Viky Bernal) Review of Systems/Exam Exam Mr Nixon is intubated and well sedated. Does not open eyes or follow commands Right flap is still full and tight. [place] monitor in place, ICP = 8. Two EDY drains in place with minimal output. Surgical healing well, clean, no drainage seen. Cranial Nerves: Pupils 2-3 mm equal, conjugate gaze. Motor: no spontaneous movements, deeply sedated Sensory: no withdrawals to local pain x 4 Plantars silent b/l Cerebellar: cannot assess (Viky Bernal) Medical Decision Making MDM Remarks 56 y/o male s/p right decompressive craniectomy with evacuation of SDH, placement of ICP monitor, postop CT Brain with improved midline shift EEG 10/20 showing occasional intermittent epileptiform discharges (Viky Bernal) Plan Plan Remarks cont ICP monitoring, ICPs trending down cont sedation, if he remains well overnight with stable ICPs to start sedation weaning tomorrow, (Viky Bernal) Attending Statement The exam, history, and the medical decision-making described in the above note were completed with the assistance of the mid-level provider. I reviewed and agree with the findings presented. I attest that I had a [id number] encounter with the patient on the same day, and personally performed and documented my assessment and findings in the medical record. (Chetan Cruz MD) Viky Bernal Oct 21, 2016 13:28 Chetan Cruz MD Oct 24, 2016 14:18
[2016-10-21] MEDS: THIAMINE INJ 100 MG in SODIUM CHLORIDE 0.9% INJ 100 ML IV SCH (20:16)
[2016-10-21] MEDS: LEVETIRACETAM IV SCH (21:27)
[2016-10-21] MEDS: SODIUM CHLORIDE 0.9% IV SCH (21:27)
--- NOTE | 2016-10-21 22:11 | HHI.PR ---
Review/Management Diagnosis 1. Encephalopathy 2. Occipital skull fracture 3. TBI status fall with bifrontal contusions, right temporal parietal subdural hemorrhage s/p craniotomy, subarachnoid hemorrhage. 4. History of alcohol abuse/alcohol withdrawal. 5. Elevated ICP s/p EVD Plan - Neuro checks q. one hourly. - Given the subtherapeutic Keppra level, increased Keppra to 2gm Q12 h. - Dilantin 200mg Q12h - Dilantin level next am - Seizure prophylaxis. - CIW[facility] protocol IV folate for alcohol withdrawal. - DVT prophylaxis - GI prophylaxis Diagnosis/Plan: Subjective Subjective Comments No change in neurologic status EEG with sharp waves and encephalopathic Keppra level subtherapeutic at 10.9 Active Medications Current Medications Medications (Trade) Dose Ordered Sig/Jony Route Start Time Stop Time Status Last Admin Miscellaneous Information 1 [id number] XX 10/11/16 13:00 10/11/16 13:00 (Chlorhexidine 2% Cloth) Taper DAILY@04 TOP 10/12/16 04:00 10/08/17 03:59 10/16/16 05:42 (Chlorhexidine 2% Cloth) 3 pack UNSCH PRN TOP 10/11/16 13:00 Hydralazine HCl 10 mg 10 mg Q2H PRN IV PUSH 10/11/16 13:30 10/21/16 05:30 (Thiamine Inj/NS Inj) 101 ml @ 100 mls/hr Q24H IV 10/11/16 20:00 10/21/16 20:16 (Peridex 0.12% Liq) 15 ml BID@08,20 MT 10/12/16 08:00 10/21/16 20:13 (Milk Of Magnesia Liq) 30 ml DAILY PO 10/12/16 10:00 10/21/16 08:03 (Lopressor Inj) 5 mg Q6H IV PUSH 10/15/16 13:00 Hold 10/16/16 11:41 (Tylenol Supp) 650 mg Q4H PRN NH 10/15/16 12:15 (Inderal) 10 mg Q6HR PO 10/17/16 12:00 Hold 10/19/16 05:21 Info 1 1 UNSCH XX 10/17/16 11:00 (Cardene Inj/NS 250 ml Inj) 250 ml @ 0 mls/hr TITRATE IV 10/17/16 11:45 10/18/16 23:16 (NS Flush) 2 ml UNSCH PRN IVF 10/18/16 11:45 (NS Flush) 2 ml BID IVF 10/18/16 21:00 10/21/16 08:04 (Dulcolax Supp) 10 mg DAILY PRN NH 10/18/16 11:45 10/18/16 14:36 (Colace) 100 mg BID PO 10/18/16 21:00 10/21/16 20:16 (Protonix Inj) 40 mg DAILY IVP 10/19/16 09:00 10/21/16 08:04 (Zofran Inj) 4 mg Q6H PRN IV 10/18/16 11:45 Calcium Gluconate 1 gm 1 gm UNSCH PRN IV 10/18/16 11:45 Potassium Chloride 100 ml @ 50 mls/hr UNSCH PRN IV 10/18/16 11:45 (Magnesium Sulfate Inj/NS Inj) 108 ml @ 108 mls/hr UNSCH PRN IV 10/18/16 11:45 Acetaminophen 650 mg 650 mg Q4H PRN PO 10/18/16 11:45 10/18/16 22:58 Norepinephrine Bitartrate 4 mg/ Sodium Chloride 250 ml @ 0 mls/hr TITRATE IV 10/19/16 04:07 10/20/16 11:19 Pharmacy Profile Note 0 ml @ 0 mls/hr UNSCH OTHER 10/19/16 07:45 Ceftriaxone Sodium 2000 mg/ Sodium Chloride 100 ml @ 200 mls/hr Q12H IV 10/19/16 08:00 10/21/16 20:15 Midazolam HCl 100 ml @ 0 mls/hr TITRATE IV 10/19/16 08:00 10/21/16 14:35 Propofol 100 ml @ 0 mls/hr TITRATE IV 10/19/16 10:00 10/21/16 18:12 Vancomycin HCl 1750 mg/Sodium Chloride 517.5 ml @ 257.5 mls/ hr Q12H IV 10/20/16 09:00 10/21/16 20:16 Fosphenytoin Sodium 200 mgpe/ Sodium Chloride 54 ml @ 216 mls/hr Q12HR IV 10/20/16 21:00 10/21/16 20:14 Fentanyl Citrate 250 ml @ 0 mls/hr TITRATE IV 10/20/16 22:15 10/20/16 22:39 (Sodium Chloride 3% Inj) 500 ml @ 40 mls/hr Q12H IV 10/20/16 22:45 10/21/16 05:32 (predniSONE LIQ) 5 mg ONCE ONCE PO 10/22/16 09:00 10/22/16 09:01 (Lactulose Liq) 30 ml TID PO 10/21/16 13:00 10/21/16 18:12 (Miralax) 17 gm BID PO 10/21/16 11:00 10/21/16 21:27 Senna/Docusate Sodium 1 tab 1 tab BID PO 10/21/16 11:00 10/21/16 20:16 (Keppra Inj/NS Inj) 170 ml @ 420 mls/hr Q12HR IV 10/21/16 21:00 10/21/16 21:27 Allergies Allergies Coded Allergies UNOBTAINABLE (Unverified10/11/16) Review of Systems All other ROS: Unable to obtain Exam I&O / VS 10/20/16 10/20/16 10/21/16 15:00 23:00 07:00 Intake Total 2729 ml 2410 ml 1845 ml Output Total 375 ml 380 ml 407 ml Balance 2354 ml 2030 ml 1438 ml IV Total 2103 ml 1687 ml 1388 ml Tube Feeding 326 ml 683 ml 457 ml Tube Irrigant 60 ml 40 ml Other 240 ml Output Urine Total 375 ml 370 ml 400 ml Tube Feeding Residual Discard 0 ml 0 ml Drainage Total 0 ml 10 ml 7 ml # Bowel Movements 0 0 1 Vital Signs Date Time Temp Pulse Resp B/P Pulse Ox O2 Delivery O2 Flow Rate FiO2 10/21/16 21:58 96 40 10/21/16 21:49 94 50 10/21/16 21:49 94 50 10/21/16 20:00 96.9 80 17 147/66 96 10/21/16 20:00 80 10/21/16 20:00 50 10/21/16 16:19 95 50 10/21/16 16:18 94 50 10/21/16 14:00 77 10/21/16 12:00 88 10/21/16 12:00 50 10/21/16 12:00 98.1 86 16 83/56 92 10/21/16 10:00 86 10/21/16 08:31 93 50 10/21/16 08:00 85 16 123/58 93 10/21/16 08:00 86 10/21/16 08:00 50 10/21/16 06:00 100 10/21/16 04:22 97 50 10/21/16 04:00 89 10/21/16 04:00 50 10/21/16 04:00 97.5 89 16 143/66 99 10/21/16 02:00 86 10/21/16 01:12 99 50 10/21/16 00:00 84 10/21/16 00:00 50 10/21/16 00:00 97.3 84 16 126/59 98 Automatic Cuff Respiratory: Coarse breath sounds Musculoskeletal: ROM (Grossly within normal limits) Exam Comments GENERAL: Mechanically ventilated and sedated. NECK: No JVD, no carotid bruit. CHEST: Clear to auscultation bilaterally. No wheezes. CARDIOVASCULAR: Regular rate and rhythm. EXTREMITIES: No edema. No abnormal posturing. NEUROLOGIC: Sedated, right eye swelling, unable to open to assess for pupil size. Left pupil 2 mm sluggish reflex. Negative gag and cough reflexes. Plantar's bilateral downgoing. No gaze deviation on examining the left eye. Objective Radiology Results Last 72 hours Impressions Chest X-Ray 10/21/16 06 Signed Impressions: Service Date/Time: October 02:38 - CONCLUSION: 1. Basilar airspace disease not significantly changed since October 20. Support apparatus in satisfactory position. Tyrel Olmos MD Chest X-Ray 10/20/16 0600 Signed Impressions: Service Date/Time: Thursday, October 20, 2016 03:57 - CONCLUSION: 1. Basilar airspace disease increased from October 16. Support apparatus unchanged. Tyrel Olmos MD Head CT 10/19/16 0000 Signed Impressions: Service Date/Time: Wednesday, October 19, 2016 02:54 - CONCLUSION: Interval partial right-sided craniectomy with evacuation of right subdural hematoma and decreased midline shift. Tyrel Olmos MD Micro and Labs Laboratory Tests Test 10/21/16 10/21/16 04:15 04:58 White Blood Count 14.4 Red Blood Count 3.21 Hemoglobin 10.3 Hematocrit 31.7 Mean Corpuscular Volume 98.7 Mean Corpuscular Hemoglobin 32.1 Mean Corpuscular Hemoglobin 32.6 Concent Red Cell Distribution Width 14.5 Platelet Count 232 Mean Platelet Volume 8.8 Neutrophils (%) (Auto) 78.7 Lymphocytes (%) (Auto) 5.8 Monocytes (%) (Auto) 14.4 Eosinophils (%) (Auto) 0.6 Basophils (%) (Auto) 0.5 Neutrophils # (Auto) 11.4 Lymphocytes # (Auto) 0.8 Monocytes # (Auto) 2.1 Eosinophils # (Auto) 0.1 Basophils # (Auto) 0.1 CBC Comment AUTO DIFF Differential Total Cells 100 Counted Neutrophils % (Manual) 65 Band Neutrophils % 18 Lymphocytes % 5 Monocytes % 11 Basophils % 1 Neutrophils # (Manual) 12.0 Differential Comment FINAL DIFF MANUAL Platelet Estimate NORMAL Platelet Morphology Comment NORMAL Red Cell Morphology Comment NORMAL Sodium Level 157 Potassium Level 3.9 Chloride Level 126 Carbon Dioxide Level 24.4 Anion Gap 7 Blood Urea Nitrogen 22 Creatinine 0.64 Estimat Glomerular Filtration 129 Rate Random Glucose 144 Calcium Level 8.2 Phosphorus Level 2.7 Magnesium Level 2.7 Total Bilirubin 0.3 Aspartate Amino Transf 37 (AST/SGOT) Alanine Aminotransferase 52 (ALT/SGPT) Alkaline Phosphatase 101 Total Protein 5.7 Albumin 1.8 Blood Gas Puncture Site ART LINE Blood Gas Patient Temperature 98.6 Blood Gas HCO3 21 Blood Gas Base Excess -3.9 Blood Gas Oxygen Saturation 94 Arterial Blood pH 7.35 Arterial Blood Partial 38 Pressure CO2 Arterial Blood Partial 88 Pressure O2 Arterial Blood Oxygen Content 17.0 Arterial Blood 0.7 Carboxyhemoglobin Arterial Blood Methemoglobin 0.9 Blood Gas Hemoglobin 12.8 Oxygen Delivery Device VENTILATOR Blood Gas Ventilator Setting SEE COMMENTS Blood Gas Inspired Oxygen 50 Date/Time Procedure Status Source Growth 10/19/16 12:00 Aerobic Blood Culture - Preliminary Resulted Blood Peripheral NO GROWTH IN 2 DAYS 10/19/16 12:00 Anaerobic Blood Culture - Preliminary Resulted Blood Peripheral NO GROWTH IN 2 DAYS Amparo Raman MD Oct 21, 2016 22:11
[2016-10-22] VITALS (18 sets, daily range): BP systolic 145–160; BP diastolic 62–68; PULSE 73–110; RESP 17–29; TEMP 97.8–99.4; O2SAT 92–95
[2016-10-22] MEDS: PROPOFOL 1000 MG/100 ML INJ 100 ML IV SCH ×3 (01:00→12:45)
[2016-10-22] MEDS: CHLORHEXIDINE GLUCONATE 2 % 1 PACK (2 CLOTHS) TOP SCH (02:47)
[2016-10-22 06:08] LABS: AUTOMATED NEUTROPHIL # 14.2 TH/MM3 (1.8-7.7); BASOPHIL # 0.2 TH/MM3 (0-0.2); BASOPHIL % 0.9 % (0.0-2.0); EOSINOPHIL # 0.2 TH/MM3 (0-0.4); EOSINOPHIL % 1.2 % (0.0-4.0); HEMATOCRIT 31.6 % (39.0-51.0); LYMPH % 6.8 % (9.0-44.0); LYMPHOCYTE # 1.2 TH/MM3 (1.0-4.8); MEAN CELL VOLUME 100.4 FL (80.0-100.0); MEAN CORPUSCULAR HEMOGLOBIN 32.3 PG (27.0-34.0); MEAN CORPUSCULAR HGB CONC 32.2 % (32.0-36.0); MONO % 10.8 % (0.0-8.0); NEUT % 80.3 % (16.0-70.0); PLATELET COUNT 271 TH/MM3 (150-450); RED BLOOD COUNT 3.15 MIL/MM3 (4.50-5.90); RED CELL DISTRIBUTION WIDTH 14.8 % (11.6-17.2); WHITE BLOOD COUNT 17.7 TH/MM3 (4.0-11.0)
[2016-10-22 06:19] LABS: HEMO FLAGS AUTO DIFF
[2016-10-22] MEDS: hydrALAZINE HCL 20 MG/ML VIAL IV PUSH PRN ×2 (06:51→14:32)
[2016-10-22 06:58] LABS: ALKALINE PHOSPHATASE 133 U/L (45-117); ALT (GPT) 52 U/L (12-78); ANION GAP 7 MEQ/L (5-15); AST (GOT) 29 U/L (15-37); BICARBONATE 24.6 MEQ/L (21.0-32.0); BLOOD UREA NITROGEN 22 MG/DL (7-18); CHLORIDE 129 MEQ/L (98-107); GLOMERULAR FILTRATION RATE 114 ML/MIN (>89); MAGNESIUM 2.7 MG/DL (1.5-2.5); POTASSIUM 4.2 MEQ/L (3.5-5.1); TOTAL BILIRUBIN ADULT 0.3 MG/DL (0.2-1.0)
[2016-10-22 07:19] LABS: SODIUM (NA) 161 MEQ/L (136-145)
[2016-10-22 07:46] LABS: BANDS 9 % (0-6); PLATELET ESTIMATE SMEAR NORMAL (NORMAL); PLATELET MORPHOLOGY NORMAL (NORMAL); POLYS (SEG NEUTROPHILS) 76 % (16-70); SCAN/DIFF FINAL DIFF MANUAL; WBC DIFF SAMPLE 100
[2016-10-22] MEDS: cefTRIAXone INJ 2,000 MG in SODIUM CHLORIDE 0.9% INJ 100 ML IV SCH ×2 (08:21→20:34)
[2016-10-22] MEDS: LEVETIRACETAM IV SCH ×5 (08:22→21:07)
[2016-10-22] MEDS: PANTOPRAZOLE SODIUM 40 MG VIAL IVP SCH (08:22)
[2016-10-22] MEDS: SODIUM CHLORIDE 0.9% IV SCH (08:22)
[2016-10-22] MEDS: CHLORHEXIDINE 0.12% (ORAL KIT) 15 ML CUP MT SCH ×2 (08:23→20:35)
[2016-10-22] MEDS: DOCUSATE SODIUM 100 MG CAP PO SCH ×2 (08:23→20:36)
[2016-10-22] MEDS: LACTULOSE SYRUP 20 GM/30 ML CUP PO SCH ×3 (08:23→16:54)
[2016-10-22] MEDS: MAGNESIUM HYDROXIDE SUSP 30 ML CUP PO SCH (08:23)
[2016-10-22] MEDS: SODIUM CHLORIDE 0.9% FLUSH 5 ML FLUSH IVF SCH ×2 (08:23→20:36)
[2016-10-22] MEDS: POLYETHYLENE GLYCOL 17 GM PKG PO SCH ×2 (08:24→20:36)
[2016-10-22] MEDS: DOCUSATE SODIUM 50 MG/SENNA 8.6 MG TAB PO SCH ×2 (08:24→20:36)
[2016-10-22] MEDS ORDERED: predniSONE 5 MG/5 ML CUP PO ONE (09:00)
[2016-10-22] MEDS: FOSPHENYTOIN INJ 200 MGPE in SODIUM CHLORIDE 0.9% INJ 50 ML IV SCH (09:00)
[2016-10-22] MEDS: VANCOMYCIN INJ 1,750 MG in SODIUM CHLORID 0.9% 500 ML INJ 500 ML IV SCH (09:35)
[2016-10-22] MEDS: 3% SALINE INJ 500 ML IV SCH (09:36)
[2016-10-22] MEDS ORDERED: FUROSEMIDE 20 MG/2 ML VIAL IV PUSH ONE (09:45)
--- NOTE | 2016-10-22 11:41 | HHI.CCPN ---
Subjective Remarks/Hospital Course 10/11: Elderly male who was brought in as a trauma alert after he fell 10 feet from a ladder. GCS 6 initially at the scene subsequently improved to 11 on arrival in the ER. Patient was evaluated by trauma team and subsequently underwent imaging studies and transferred to the ICU. Critical care consult was requested by Dr. Menezes. Patient was initially on a nonrebreather facemask however by the time I saw him he had been switched to nasal cannula and did not appear to be in any acute distress. Imaging studies revealed an occipital skull fracture, subdural and subarachnoid blood. Patient was awake and alert at the time of evaluation and following commands and moving all 4 extremities. He could not hear and had some speech difficulty at the time of my evaluation with difficulty in communication though was following commands appropriately. C spine cleared by Neurosurgery at the time of my evaluation. 10/12: Patient developed worsening agitation despite Precedex last evening. He was started on Ativan as his gives history that he drinks 12 beers a day and if he does not drink has a tendency to go into withdrawal very quickly. Patient was subsequently intubated and placed on mechanical ventilation, his head CT from last evening shows worsening bilateral subdural and subarachnoid hemorrhages, right temporoparietal subdural hemorrhage with 9 mm leftward midline shift. He was started on 3% saline. Currently sedated with Versed/ fentanyl/propofol. 10/13: Remains sedated, orally intubated on mechanical ventilation. On Versed/ fentanyl/propofol drips. Gets agitated on attempting to cut down on propofol which is currently at 30 mics per minute, Versed 10 mg/h, fentanyl 150 g per hour. 10/14: ICPs still borderline, mid-teens. remains sedated. EVD placed yesterday. midline shift slightly improved after EVD placement. 10/15: ICPs improved significantly. < 10 all night. EVD clamped. 10/16: ICPs stable off versed. sodium continues to rise. withdraws to pain x 4. 10/18: not waking up. repeat head CT shows interval expansion of SDH with 1.2 cm midline shift. taken for decompression to OR. Dr. Cruz asked CCM to reconsult and assist in management of post-operative craniectomy. 10/19: overnight, ICP significantly increased. stat repeat head CT without interval change. this morning ICP still elevated 22-23. versed drip started, 3 % infusion started back, 25gm mannitol ordered x 1. now on norepinephrine to maintain cerebral perfusion pressure. 10/20: EEG with sz activity yesterday. keppra increased and neurology consulted. persists on low-dose norepinephrine to maintain cerebral perfusion pressure. 3% continues. ICP continues to be elevated despite sedation and hyperosmolar therapy. propofol up to 100mcg/kg/min, versed 10mg/hr. 10/21: EEG slightly improved after Cerebyx load, and ICP significantly improved. slightly weaning high-dose sedatives, but not planning to perform sedation vacation today. 3% continues today. vasopressors weaned off overnight. 10/22: ICPs much better controlled. 3% off today. persistently poor neuro exam. off pressors this AM. Objective Vital Signs Date Time Temp Pulse Resp B/P Pulse Ox O2 Delivery O2 Flow Rate FiO2 10/22/16 10:00 102 10/22/16 09:56 93 50 10/22/16 08:00 99.1 19 160/68 10/19/16 09:36 Ventilator Intake and Output 10/21/16 10/21/16 10/22/16 08:00 16:00 00:00 Intake Total 1845 ml 2934 ml 2039 ml Output Total 407 ml 500 ml 659 ml Balance 1438 ml 2434 ml 1380 ml Result Diagram: 10/22/16 0555 10/22/16 0555 Imaging Last 24 hours Impressions Chest X-Ray 10/13/16 06 Signed Impressions: Service Date/Time: Thursday, October 13, 2016 04:18 - CONCLUSION: Minimal right base atelectasis or consolidation. Red Joshua MD Last Impressions Chest X-Ray 10/12/16 06 Signed Impressions: Service Date/Time: Wednesday, October 12, 2016 05:11 - CONCLUSION: Minimal increased density at the bases representing minimal atelectasis or consolidation. Red Joshua MD Head CT 10/11/161999 Signed Impressions: Service Date/Time: Tuesday, October 11, 2016 22:04 - CONCLUSION: Much worse in the interim. There is increased and extensive subdural and subarachnoid blood as above. Multifocal parenchymal hemorrhage now present of both frontal and temporal lobes, especially the right frontal lobe.. There is about 9 mm of leftward midline shift. 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 MD Pelvis X-Ray 10/11/161212 Signed Impressions: Service Date/Time: Tuesday, October 11, 2016 12:02 - CONCLUSION: Satisfactory trauma pelvis appearance. Red Hoffman MD Chest CT 10/11/161212 Signed Impressions: Service Date/Time: Tuesday, October 11, 2016 12:19 - CONCLUSION: Negative for acute traumatic injury. There is no pneumothorax. Davis Nolasco MD FACR Cervical Spine CT 10/11/161212 Signed Impressions: Service Date/Time: Tuesday, October 11, 2016 12:19 - CONCLUSION: Occipital skull fracture. No evidence of acute traumatic injury in the cervical spine Red Hoffman MD Abdomen/Pelvis CT 10/11/161212 Signed Impressions: Service Date/Time: Tuesday, October 11, 2016 12:19 - CONCLUSION: Negative CT scan of the abdomen and pelvis for acute traumatic injury. Davis Nolasco MD FACR Objective Remarks HEENT/Neuro: No pallor or icterus, tongue moist, pupils pinpoint, equal, reactive. RASS -5. deeply sedated. GCS 3. Neck: No JVD Chest/pulmonary: CTA bilaterally Cardiovascular: S1-S2 regular no gallop or murmur GI/abdomen: Soft, nontender, bowel sounds present Extremities: Warm bilaterally, no edema Neuro: PERRL. GCS 3. no movements peripherally. A/P Assessment and Plan Assessment: 56yM s/p trauma with TBI, bifrontal contusions, right SDH s/p right crani decompression, traumatic SAH. Continues to be very critically ill. Discussed case with Dr. Cruz and trauma team. Plan to wean sedation today. control blood pressures. frequent neuro checks. start to very gently normalize sodium levels. will need tracheostomy in the near future if his ICP remain controlled. Plan: Neuro: Encephalopathy Occipital skull fracture TBI with bifrontal contusions, bifrontal, right temporoparietal subdural hemorrhage, subarachnoid hemorrhage Hearing loss History of alcohol abuse Suspected alcohol withdrawal Malignant Cerebral Edema S/p decompressive craniotomy Seizures --Follow neuro checks --neurosurgery consulted and following: Dr. Cruz --wean sedation today. -- per neurology, increased Keppra to 2gm BID. -- Cerebyx 200mg iv q12h. -- thiamine/folate acid for alcohol withdrawal. -- versed, propofol, fentanyl for sedation and ICP. if ICP hold, will attempt to wean sedation to get neuro exam. --d/c 3% drip. gently normalize serum sodium. Cardiovascular: Intermittent Hypotension and Hypertension- resolving. -- SBP goals < 160 to maintain cerebral perfusion pressure -- intermittently using Norepinephrine and Nicardipine. starting to stabilize out. --Labetalol/hydralazine when necessary for hypertension. -- will consider restarting propranolol if he remains stable. Pulmonary: Suspected COPD Acute hypoxic and hypercarbic respiratory failure requiring mechanical ventilation -- Continue mechanical ventilation, vent bundle, Bronchodilators. -- Maintain end-tidal CO2 30-35. -- steroid taper with prednisone 20mg daily and slow wean over 5 days. (taper already ordered, finishes 10/23) -- no SBT while elevated ICP. GI/liver: Acute protein calorie malnutrition-mild Hypernatremia -- TF at goal. -- restart gentle PO free water replacement, 200 q6h. -- daily BMP Renal/: -- strict intake output, monitor and replete electrolytes, follow BUN/ creatinine. Estrella catheterization. ID: H. Influenza pneumonia Leukocytosis Fever -- Vancomycin with pharmacy dosing -- Rocephin 2gm iv q12h (empiric meningitic dosing). -- yost cultures no growth to date. Endocrine: -- Watch for hyperglycemia, SSI for glycemic control if needed -- steroid taper for presumed COPD exacerbation as described above. Heme: Anemia of Acute Blood Loss -- Follow CBC -- does not meet transfusion triggers at this time. Prophylaxis: -- PPI/SCDs. -- No heparin or Lovenox in view of TBI till cleared by Neurosurgery Condition remains critical with persistently life-threatening elevated ICP and TBI now s/p decompressive crani, hypoxic respiratory failure, malignant edema, hypotension requiring vasopressors, seizures. Time spent on critical care excluding procedures 44 minutes. this time was in addition to and separate in time and discontinuous from any other documented critical care time today. Oswaldo Chambers MD Oct 22, 2016 11:41
[2016-10-22] MEDS: FREE WATER G-TUBE SCH ×2 (11:58→16:54)
[2016-10-22] MEDS: PROPRANOLOL HCL 10 MG TAB PO SCH (11:58)
--- NOTE | 2016-10-22 12:08 | HHI.PR ---
Neuropsych Progress Notes/Response to Tx Contents of Sessions: Interests Time with Patient: 15 minutes Premorbid psychological status Premorbid Cognitive, Emotional and Behavioral Status: Deferred. 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 The patient has no known psychiatric difficulties. However, substance abuse history is significant for alcohol dependence and tobacco dependence. Behavioral Reactions of Patient and Family/Support System: Tenuous. The patients family has a limited understanding of the complexities of this patient 's brain injury, and the lifestyle barriers that prevent an optimal recovery. They are expected to have ongoing issues of adjustment given the nature of the injury, and this aspect of recovery will require ongoing monitoring. Emotional/Behavioral Status of Patient and Family/Support System: Tenuous. Pertinent issues, if appropriate to this patients clinical care, are described in detail above. Maximizing acute care outcome It is recommended that the patient be monitored for emergent behavioral impulsivity as the medical condition evolves. This patients neuropathological challenges may limit their rehabilitation potential going forward, and these challenges will require specialized therapeutic skills to maximize outcome. Additionally, the patients family is experiencing ongoing issues of adjustment given the traumatic nature of the injury, and they [will need / may benefit] from ongoing psychological assistance. Anticipated Problems Ongoing areas of concern could include behavioral impulsivity, lack of insight and judgment, which is expected to improve with time and treatment, provided he moves past this stage of recovery. Presently, the patient is not following commands. His long duration alcohol dependence and tobacco dependence, which has led to global cerebral atrophy, will serve as a double barrier to his recovery from this injury. Treatment Plan This clinician will continue to follow with you throughout the course of this patients rehabilitation treatment, and I will be available to meet with the patients family/support system to facilitate their understanding and the ongoing care of their family member. The goals of neuropsychological intervention shall be both educational and supportive to the family/support system as is deemed clinically appropriate. [facility] Level: I:No response-total assistance Diagnosis: (1) Major neurocognitive disorder as late effect of traumatic brain injury with behavioral disturbance Status: Acute (2) Alcohol dependence Status: Acute Progress Note Narrative Ongoing follow-up of patient within the context of daily trauma rounding. From a neurobehavioral perspective, this patient has made no progress of any significance, although he may have been experiencing ongoing seizure activity that has limited his improvement. I shall continue to follow with you. Kermit Hughes PhD Oct 22, 2016 12:08 pm
[2016-10-22] MEDS: ACETAMINOPHEN 325 MG TAB PO PRN (14:10)
--- NOTE | 2016-10-22 14:32 | HHI.NSPN ---
(Viky Bernal) Note Status Status: Progress Note (Viky Bernal) Interval History Interval History 10/19: POD 1 s/p right decompressive craniectomy with evacuation of subdural hematoma. ICPs 22-23 overnight, f/u CT this am shows improved midline shift. currently well sedated. 10/20: POD 2, EEG showed seizures, on Keppra, Neurology evaluation. currently well sedated and intubated. ICPs below 20. 10/21: POD 3, well sedated, ICPs currently at 8. right flap still full and tight. 10/22: POD 4, no changes neuro checks overnight, sedation being weaned. ICPs within normal range. (Viky Bernal) Labs, Micro, & Vital Signs Results Date Time Temp Pulse Resp B/P Pulse Ox O2 Delivery O2 Flow Rate FiO2 10/22/16 12:00 98.8 106 23 153/64 93 10/22/16 12:00 106 10/22/16 12:00 50 10/22/16 10:00 102 10/22/16 09:56 93 50 10/22/16 09:56 93 50 10/22/16 08:11 93 50 10/22/16 08:00 50 10/22/16 08:00 110 10/22/16 08:00 99.1 110 19 160/68 93 10/22/16 06:00 103 10/22/16 04:00 50 10/22/16 04:00 99.3 105 19 145/67 95 10/22/16 04:00 105 10/22/16 02:00 91 10/22/16 00:00 50 10/22/16 00:00 90 10/22/16 00:00 97.8 90 17 146/62 95 10/21/16 22:00 84 10/21/16 21:58 96 40 10/21/16 21:49 94 50 10/21/16 21:49 94 50 10/21/16 20:00 96.9 80 17 147/66 96 10/21/16 20:00 80 10/21/16 20:00 50 10/21/16 16:19 95 50 10/21/16 16:18 94 50 10/21/16 14:00 77 10/22/16 07:00 Intake Total 7335 ml Output Total 1759 ml Balance 5576 ml Constitutional Vital Signs Date Time Temp Pulse Resp B/P Pulse Ox O2 Delivery O2 Flow Rate FiO2 10/22/16 12:00 98.8 106 23 153/64 93 10/22/16 12:00 106 10/22/16 12:00 50 10/22/16 10:00 102 10/22/16 09:56 93 50 10/22/16 09:56 93 50 10/22/16 08:11 93 50 10/22/16 08:00 50 10/22/16 08:00 110 10/22/16 08:00 99.1 110 19 160/68 93 10/22/16 06:00 103 10/22/16 04:00 50 10/22/16 04:00 99.3 105 19 145/67 95 10/22/16 04:00 105 10/22/16 02:00 91 10/22/16 00:00 50 10/22/16 00:00 90 10/22/16 00:00 97.8 90 17 146/62 95 10/21/16 22:00 84 10/21/16 21:58 96 40 10/21/16 21:49 94 50 10/21/16 21:49 94 50 10/21/16 20:00 96.9 80 17 147/66 96 10/21/16 20:00 80 10/21/16 20:00 50 10/21/16 16:19 95 50 10/21/16 16:18 94 50 10/21/16 14:00 77 10/22/16 07:00 Intake Total 7335 ml Output Total 1759 ml Balance 5576 ml (Viky Bernal) Review of Systems/Exam Exam Mr Nixon is intubated and well sedated. Does not open eyes or follow commands Right flap is still full and tight. Krum monitor in place, ICP = 8. Two EDY drains in place with minimal output. Surgical healing well, clean, no drainage seen. Cranial Nerves: Pupils 2-3 mm equal, conjugate gaze. Motor: no spontaneous movements, deeply sedated Sensory: no withdrawals to local pain x 4 Plantars silent b/l Cerebellar: cannot assess (Viky Bernal) Medications Current Medications Current Medications Medications (Trade) Dose Ordered Sig/Jony Route PRN Reason Start Time Stop Time Status Last Admin Dose Admin Miscellaneous Information 1 [id number] XX 10/11/16 13:00 10/11/16 13:00 Chlorhexidine Gluconate (Chlorhexidine 2% Cloth) Taper DAILY@04 TOP 10/12/16 04:00 10/08/17 03:59 10/16/16 05:42 Chlorhexidine Gluconate (Chlorhexidine 2% Cloth) 3 pack UNSCH PRN TOP HYGIENIC CARE 10/11/16 13:00 Hydralazine HCl 10 mg 10 mg Q2H PRN IV PUSH SBP greater than 150mm Hg 10/11/16 13:30 10/22/16 06:51 Thiamine HCl/ Sodium Chloride (Thiamine Inj/NS Inj) 101 ml @ 100 mls/hr Q24H IV 10/11/16 20:00 10/21/16 20:16 Chlorhexidine Gluconate (Peridex 0.12% Liq) 15 ml BID@08,20 MT 10/12/16 08:00 10/22/16 08:23 Magnesium Hydroxide (Milk Of Magnesia Liq) 30 ml DAILY PO 10/12/16 10:00 10/21/16 08:03 Metoprolol Tartrate (Lopressor Inj) 5 mg Q6H IV PUSH 10/15/16 13:00 Hold 10/16/16 11:41 Acetaminophen (Tylenol Supp) 650 mg Q4H PRN OR FEVER 10/15/16 12:15 Propranolol HCl (Inderal) 10 mg Q6HR PO 10/17/16 12:00 10/22/16 11:58 Info 1 1 UNSCH XX 10/17/16 11:00 Nicardipine HCl/ Sodium Chloride (Cardene Inj/NS 250 ml Inj) 250 ml @ 0 mls/hr TITRATE IV 10/17/16 11:45 10/18/16 23:16 IV Flush (NS Flush) 2 ml UNSCH PRN IVF FLUSH AFTER USING IV ACCESS 10/18/16 11:45 IV Flush (NS Flush) 2 ml BID IVF 10/18/16 21:00 10/21/16 08:04 Bisacodyl (Dulcolax Supp) 10 mg DAILY PRN OR CONSTIPATION 10/18/16 11:45 10/18/16 14:36 Docusate Sodium (Colace) 100 mg BID PO 10/18/16 21:00 10/21/16 20:16 Pantoprazole Sodium (Protonix Inj) 40 mg DAILY IVP 10/19/16 09:00 10/22/16 08:22 Ondansetron HCl (Zofran Inj) 4 mg Q6H PRN IV NAUSEA OR VOMITING 10/18/16 11:45 Calcium Gluconate 1 gm 1 gm UNSCH PRN IV SEE LABEL COMMENTS 10/18/16 11:45 Potassium Chloride 100 ml @ 50 mls/hr UNSCH PRN IV POTASSIUM LESS THAN 4 10/18/16 11:45 Magnesium Sulfate/ Sodium Chloride (Magnesium Sulfate Inj/NS Inj) 108 ml @ 108 mls/hr UNSCH PRN IV MAGNESIUM LESS THAN 2 10/18/16 11:45 Acetaminophen 650 mg 650 mg Q4H PRN PO TEMPERATURE > 101.5 F 10/18/16 11:45 10/18/16 22:58 Norepinephrine Bitartrate 4 mg/ Sodium Chloride 250 ml @ 0 mls/hr TITRATE IV 10/19/16 04:07 10/20/16 11:19 Pharmacy Profile Note 0 ml @ 0 mls/hr UNSCH OTHER 10/19/16 07:45 Ceftriaxone Sodium 2000 mg/ Sodium Chloride 100 ml @ 200 mls/hr Q12H IV 10/19/16 08:00 10/22/16 08:21 Propofol 100 ml @ 0 mls/hr TITRATE IV 10/19/16 10:00 10/22/16 09:36 Vancomycin HCl 1750 mg/Sodium Chloride 517.5 ml @ 257.5 mls/ hr Q12H IV 10/20/16 09:00 10/22/16 09:35 Fosphenytoin Sodium 200 mgpe/ Sodium Chloride 54 ml @ 216 mls/hr Q12HR IV 10/20/16 21:00 10/22/16 09:00 Fentanyl Citrate (fentaNYL DRIP) 250 ml @ 0 mls/hr TITRATE IV 10/20/16 22:15 10/20/16 22:39 Lactulose (Lactulose Liq) 30 ml TID PO 10/21/16 13:00 10/21/16 18:12 Polyethylene Glycol (Miralax) 17 gm BID PO 10/21/16 11:00 10/21/16 21:27 Senna/Docusate Sodium 1 tab 1 tab BID PO 10/21/16 11:00 10/21/16 20:16 Levetriacetam/ Sodium Chloride (Keppra Inj/NS Inj) 170 ml @ 420 mls/hr Q12HR IV 10/21/16 21:00 10/22/16 08:22 Miscellaneous Information SPECIFIC LAB TO BE DRAWN:[facility] DATE TO BE DRGlynn.. ONCE ONCE XX 10/25/16 08:45 10/25/16 08:46 Water (Free Water) VOLUME OF WATER: ( 200 ) ML Q6HR G-TUBE 10/22/16 12:00 10/22/16 11:58 (Viky Bernal) Medical Decision Making MDM Remarks 56 y/o male s/p right decompressive craniectomy with evacuation of SDH, placement of ICP monitor, postop CT Brain with improved midline shift EEG 10/20 showing occasional intermittent epileptiform discharges (Viky Bernal) Plan Plan Remarks start sedation weaning, f/u neuro examination stable ICPs, cont monitor for now, his flap remains tight and full discontinuin 3% in view of elevated serum sodium critical care management cont antiepileptics, neurology following for seizures (Viky Bernal) Attending Statement The exam, history, and the medical decision-making described in the above note were completed with the assistance of the mid-level provider. I reviewed and agree with the findings presented. I attest that I had a [id number] encounter with the patient on the same day, and personally performed and documented my assessment and findings in the medical record. (Chetan Cruz MD) Viky Bernal Oct 22, 2016 14:02 Chetan Cruz MD Oct 24, 2016 14:19
--- NOTE | 2016-10-22 14:41 | HHI.CCPN ---
Subjective Brief History Elderly male who was brought in as a trauma alert after he fell 10 feet from a ladder. GCS 6 initially at the scene subsequently improved to 11 on arrival in the ER. Patient was evaluated by trauma team and subsequently underwent imaging studies and transferred to the ICU. Imaging studies revealed an occipital skull fracture, subdural and subarachnoid blood. Patient was awake and alert at the time of evaluation and following commands and moving all 4 extremities. He could not hear and had some speech difficulty at the time of my evaluation with difficulty in communication though was following commands appropriately. C spine cleared by Neurosurgery at the time of my evaluation. Patient developed worsening agitation despite Precedex last evening. Since then patient had to be intubated ventilated and is currently on propofol fentanyl and Versed drips to keep him down When these are discontinued or less and patient starts biting on the to and becomes restless moves all [address] scan of the head reveals worsening subdural and subarachnoid hemorrhage and the midline shift of about 8 mm 24 Hour Review/Hospital Course Patient has worsened in last 24 hours Repeat CAT scan reveals worsening subdural bleeding over the right parieto- occipital area and [id number] shift of about 8 mm Patient is elderly and a heavy drinker and therefore has atrophy of the brain so there is some more space that allows for compartment pressure IE ICP to remain low We will discuss with neurosurgery about placing ICP monitor or even draining subdural hematoma at this time. Patient remains hyperventilated and on hypertonic saline nonetheless will require bolt placement to assess for ICP and the effectiveness of the therapy 10/13/2016 Patient neurologically unchanged Repeat CAT scan shows some decrease in subdural hematoma and slight decrease in shift yet still severe brain injury At the family's request a second opinion neurosurgery consult was placed and second neurosurgeon has evaluated the patient She will have a long-term recovery here and have discussed this at length with the family Patient may need tracheostomy and PEG tube placement as the part of the appropriate treatment 10/14/2016 Patient with a severe brain injury and subdural hematoma and intraparenchymal hemorrhage Underwent yesterday ventriculostomy placement ICP is within physiologic range at this time and the subdural hematoma size has somewhat decreased There is no change in the neurologic status over the last 24 hours 10/17/16 No change in neurologic status Patient withdraws to pain but does not open eyes or communicates in anyway All sedation has been removed and ventilatory settings been gradually decreased in order 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 Hypertonic saline was held for profound hypernatremia. EEG showed complete moderate encephalopathy. He will require tracheostomy and gastrostomy tube placement once stable. There was 1 episode of mucous plugging which resolved with aggressive suctioning. 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 Patient is fluid overloaded based on weight and ins and outs Hematologic Stable Assessment and Plan Plan Neuro-Will wean sedation as ICPs permit today, patient is on Keppra Celebrex for seizure prophylaxis Pulmonary-continue full ventilator support, will likely require tracheostomy once stable from a neurologic standpoint. Until then continue vent wean as tolerated. Cardio-stable continue hemodynamic monitoring GI-continue nutritional support -continue Estrella for hemodynamic monitoring ID-patient is on vancomycin and Rocephin FEN-continue nutritional support and replace electrolytes as needed, hold hypertonic saline for profound hypernatremia Patient remains critically ill with severe traumatic brain injury and acute respiratory failure due to his injuries Total critical care time 40 minutes Jayjay Barrow MD Oct 22, 2016 14:41
[2016-10-22] MEDS: RESP: ALBUTEROL 2.5 MG/IPRATROPIUM 0.5 MG NEB (PRN) NEB (15:34)
--- NOTE | 2016-10-22 16:16 | RADRPT ---
EXAM DATE/TIME: 10/22/2016 15:32 [facility] COMPARISON: CHEST SINGLE AP, October 21, 2016, 2:38. INDICATIONS : Central line placement. MEDICAL HISTORY : Hypertension. Cardiovascular disease. SURGICAL HISTORY : None. ENCOUNTER: Initial ACUITY: 1 week PAIN SCORE: Non-responsive. LOCATION: Bilateral chest FINDINGS: ET tube, nasogastric tube and central venous catheters are in good positions. There are increasing b ibasilar parenchymal changes present with small bilateral pleural effusions. There is no pneumothora x. CONCLUSION: Lines in good position without pneumothorax. Davis Nolasco MD FACR on October 22, 2016 at 16:07 Board Certified Radiologist. This report was verified electronically.
--- NOTE | 2016-10-22 16:23 | PD.PROCEDR ---
Procedure Note Procedure Central Line Procedure Note Right subclavian triple lumen catheter Diagnosis: traumatic brain injury Indications: need for highly potent vasoactive substances Consent: Written consent was obtained Anesthesia: Propofol IV Description of the Procedure: The patient was placed in the supine, mild- Trendelenburg position. The area was prepped and draped sterilely. A 19g needle was inserted under negative pressure aspiration and dark venous blood was obtained. A guidewire was inserted easily without resistance. A small incision was made using a #11 blade. Using a modified Seldinger technique, the dilator and 7 Mal[place]ian, 20 cm catheter were advanced over the guidewire without resistance. All ports were aspirated and flushed, and had brisk blood return. The line was secured at 18 cm at the skin using 2-0 silk interrupted sutures. A Biopatch and Transparent sterile dressing were applied. There were no immediate complications noted. There was minimal EBL. The patient tolerated the procedure well. Ultrasound guidance was not used for this procedure A Chest x-ray has been ordered. I personally performed the procedure. Oswaldo Chambers MD Oct 22, 2016 16:23
[2016-10-22] MEDS ORDERED: METHYLNALTREXONE BROMIDE 12 MG/0.6 ML VIAL SQ ONE (16:45)
[2016-10-22] MEDS: niCARdipine INJ 50 MG in SODIUM CHLOR 0.9% 250 ML INJ 230 ML IV SCH (16:49)
[2016-10-22] MEDS: PROPRANOLOL HCL 20 MG TAB PO SCH (16:52)
[2016-10-22] MEDS: MAGNESIUM SULFATE 1 GM PREMIX 100 ML IV SCH ×2 (16:52→17:45)
[2016-10-22] MEDS: cloNIDine HCL 0.3 MG TAB PO SCH ×2 (16:54→20:36)
[2016-10-22] MEDS: fentaNYL 2,500 MCG/NS 250 ML IV SCH (17:02)
[2016-10-22] MEDS: LABETALOL HCL 100 MG/20 ML VIAL IV PUSH PRN ×2 (18:51→20:48)
[2016-10-22] MEDS ORDERED: FUROSEMIDE 40 MG/4 ML VIAL IV PUSH ONE (20:15)
[2016-10-22] MEDS ORDERED: WATER IV SCH ×4 (20:17→20:18)
[2016-10-22] MEDS ORDERED: DEXTROSE 5% IV SCH ×4 (20:17→20:18)
[2016-10-22] MEDS ORDERED: NICARDIPINE IV SCH ×2 (20:17)
[2016-10-22] MEDS ORDERED: NOREPINEPHRINE IV SCH ×2 (20:18)
[2016-10-22] MEDS: DEXTROSE IV SCH ×4 (20:35→21:07)
[2016-10-22] MEDS: WATER IV SCH ×8 (20:35→21:07)
[2016-10-22] MEDS: FOSPHENYTOIN IV SCH ×4 (20:35→21:07)
[2016-10-22] MEDS: WATE IV SCH ×4 (20:36→21:07)
[2016-10-22] MEDS: DEXTROSE 5% IV SCH ×8 (20:36→21:07)
[2016-10-22] MEDS: VANCOMYCIN IV SCH ×4 (20:36→21:06)
[2016-10-23] VITALS (21 sets, daily range): BP systolic 133–149; BP diastolic 58–70; PULSE 71–88; RESP 21–26; TEMP 98–99.7; O2SAT 92–100
[2016-10-23] MEDS: CHLORHEXIDINE GLUCONATE 2 % 1 PACK (2 CLOTHS) TOP SCH (00:06)
[2016-10-23] MEDS: PROPRANOLOL HCL 20 MG TAB PO SCH ×4 (00:15→17:11)
[2016-10-23] MEDS: hydrALAZINE HCL 20 MG/ML VIAL IV PUSH PRN (03:20)
[2016-10-23 05:29] LABS: AUTOMATED NEUTROPHIL # 22.7 TH/MM3 (1.8-7.7); BASOPHIL # 0.1 TH/MM3 (0-0.2); BASOPHIL % 0.5 % (0.0-2.0); EOSINOPHIL # 0.3 TH/MM3 (0-0.4); HEMATOCRIT 32.3 % (39.0-51.0); LYMPH % 6.5 % (9.0-44.0); LYMPHOCYTE # 1.8 TH/MM3 (1.0-4.8); MEAN CELL VOLUME 99.3 FL (80.0-100.0); MEAN CORPUSCULAR HEMOGLOBIN 32.3 PG (27.0-34.0); MEAN CORPUSCULAR HGB CONC 32.5 % (32.0-36.0); MONO % 8.9 % (0.0-8.0); NEUT % 83.1 % (16.0-70.0); PLATELET COUNT 307 TH/MM3 (150-450); RED BLOOD COUNT 3.26 MIL/MM3 (4.50-5.90); RED CELL DISTRIBUTION WIDTH 14.9 % (11.6-17.2); WHITE BLOOD COUNT 27.3 TH/MM3 (4.0-11.0)
[2016-10-23 05:36] LABS: ANION GAP 7 MEQ/L (5-15); AST (GOT) 36 U/L (15-37); BICARBONATE 25.9 MEQ/L (21.0-32.0); BLOOD UREA NITROGEN 22 MG/DL (7-18); CHLORIDE 120 MEQ/L (98-107); GLOMERULAR FILTRATION RATE 127 ML/MIN (>89); MAGNESIUM 2.8 MG/DL (1.5-2.5); POTASSIUM 4.1 MEQ/L (3.5-5.1); SODIUM (NA) 153 MEQ/L (136-145)
[2016-10-23 05:39] LABS: ALKALINE PHOSPHATASE 148 U/L (45-117); ALT (GPT) 56 U/L (12-78); TOTAL BILIRUBIN ADULT 0.4 MG/DL (0.2-1.0)
[2016-10-23 05:47] LABS: HEMO FLAGS AUTO DIFF
[2016-10-23] MEDS: FREE WATER G-TUBE SCH ×4 (05:51→19:56)
[2016-10-23] MEDS: cloNIDine HCL 0.3 MG TAB PO SCH ×3 (05:51→22:00)
[2016-10-23 07:30] LABS: BANDS 4 % (0-6); EOSINOPHILS 2 % (0-4); MYELOCYTES 1 % (0-0); NEUTROPHIL # MANUAL DIFF 24.3 TH/MM3 (1.8-7.7); POLYS (SEG NEUTROPHILS) 84 % (16-70); WBC DIFF SAMPLE 100
[2016-10-23 07:31] LABS: PLATELET ESTIMATE SMEAR NORMAL (NORMAL); PLATELET MORPHOLOGY NORMAL (NORMAL); SCAN/DIFF FINAL DIFF MANUAL
[2016-10-23] MEDS: SODIUM CHLORIDE 0.9% FLUSH 5 ML FLUSH IVF SCH ×2 (08:32→19:56)
[2016-10-23] MEDS: PANTOPRAZOLE SODIUM 40 MG VIAL IVP SCH (08:32)
[2016-10-23] MEDS: CHLORHEXIDINE 0.12% (ORAL KIT) 15 ML CUP MT SCH ×2 (08:32→19:56)
[2016-10-23] MEDS: DEXTROSE 5% IV SCH ×14 (08:33→20:00)
[2016-10-23] MEDS: LACTULOSE SYRUP 20 GM/30 ML CUP PO SCH ×3 (08:33→17:11)
[2016-10-23] MEDS: WATER IV SCH ×14 (08:33→20:00)
[2016-10-23] MEDS: POLYETHYLENE GLYCOL 17 GM PKG PO SCH ×2 (08:33→19:53)
[2016-10-23] MEDS: DOCUSATE SODIUM 50 MG/SENNA 8.6 MG TAB PO SCH ×2 (08:33→19:53)
[2016-10-23] MEDS: CEFTRIAXONE IV SCH ×4 (08:33→19:56)
[2016-10-23] MEDS: MAGNESIUM HYDROXIDE SUSP 30 ML CUP PO SCH (08:33)
[2016-10-23] MEDS: VANCOMYCIN IV SCH ×4 (08:33→19:55)
[2016-10-23] MEDS: WATE IV SCH ×4 (09:00→19:55)
[2016-10-23] MEDS: DOCUSATE SODIUM 100 MG CAP PO SCH ×2 (09:00→19:53)
[2016-10-23] MEDS: FOSPHENYTOIN IV SCH ×4 (09:00→19:54)
[2016-10-23] MEDS: DEXTROSE IV SCH ×4 (09:00→19:54)
[2016-10-23] MEDS: LEVETIRACETAM IV SCH ×4 (09:00→19:55)
[2016-10-23] MEDS: LABETALOL HCL 100 MG/20 ML VIAL IV PUSH PRN ×2 (09:38→17:59)
--- NOTE | 2016-10-23 09:55 | HHI.CCPN ---
Subjective Remarks/Hospital Course 10/11: Elderly male who was brought in as a trauma alert after he fell 10 feet from a ladder. GCS 6 initially at the scene subsequently improved to 11 on arrival in the ER. Patient was evaluated by trauma team and subsequently underwent imaging studies and transferred to the ICU. Critical care consult was requested by Dr. Menezes. Patient was initially on a nonrebreather facemask however by the time I saw him he had been switched to nasal cannula and did not appear to be in any acute distress. Imaging studies revealed an occipital skull fracture, subdural and subarachnoid blood. Patient was awake and alert at the time of evaluation and following commands and moving all 4 extremities. He could not hear and had some speech difficulty at the time of my evaluation with difficulty in communication though was following commands appropriately. C spine cleared by Neurosurgery at the time of my evaluation. 10/12: Patient developed worsening agitation despite Precedex last evening. He was started on Ativan as his gives history that he drinks 12 beers a day and if he does not drink has a tendency to go into withdrawal very quickly. Patient was subsequently intubated and placed on mechanical ventilation, his head CT from last evening shows worsening bilateral subdural and subarachnoid hemorrhages, right temporoparietal subdural hemorrhage with 9 mm leftward midline shift. He was started on 3% saline. Currently sedated with Versed/ fentanyl/propofol. 10/13: Remains sedated, orally intubated on mechanical ventilation. On Versed/ fentanyl/propofol drips. Gets agitated on attempting to cut down on propofol which is currently at 30 mics per minute, Versed 10 mg/h, fentanyl 150 g per hour. 10/14: ICPs still borderline, mid-teens. remains sedated. EVD placed yesterday. midline shift slightly improved after EVD placement. 10/15: ICPs improved significantly. < 10 all night. EVD clamped. 10/16: ICPs stable off versed. sodium continues to rise. withdraws to pain x 4. 10/18: not waking up. repeat head CT shows interval expansion of SDH with 1.2 cm midline shift. taken for decompression to OR. Dr. Cruz asked CCM to reconsult and assist in management of post-operative craniectomy. 10/19: overnight, ICP significantly increased. stat repeat head CT without interval change. this morning ICP still elevated 22-23. versed drip started, 3 % infusion started back, 25gm mannitol ordered x 1. now on norepinephrine to maintain cerebral perfusion pressure. 3: EEG with sz activity yesterday. keppra increased and neurology consulted. persists on low-dose norepinephrine to maintain cerebral perfusion pressure. 3% continues. ICP continues to be elevated despite sedation and hyperosmolar therapy. propofol up to 100mcg/kg/min, versed 10mg/hr. 10/21: EEG slightly improved after Cerebyx load, and ICP significantly improved. slightly weaning high-dose sedatives, but not planning to perform sedation vacation today. 3% continues today. vasopressors weaned off overnight. 10/22: ICPs much better controlled. 3% off today. persistently poor neuro exam. off pressors this AM. 10/23: ICPs continue to improve, though when flat, the ICPs jump up to 30 transiently. currently 3. his neuro exam continues to be quite poor- +cough, + gag, but flaccid x 4. unable to go to MRI due to bolt. blood, sputum cultures NGTD. remains febrile with leukocytosis. Objective Vital Signs Date Time Temp Pulse Resp B/P Pulse Ox O2 Delivery O2 Flow Rate FiO2 10/23/16 07:23 60 10/23/16 07:23 97 10/23/16 06:00 83 10/23/16 04:00 99.7 24 149/67 10/19/16 09:36 Ventilator Intake and Output 10/22/16 10/22/16 10/23/16 08:00 16:00 00:00 Intake Total 2362 ml 1964 ml 1573 ml Output Total 600 ml 2125 ml 1405 ml Balance 1762 ml -161 ml 168 ml Result Diagram: 10/23/16 0404 10/23/16 0404 Imaging Last 24 hours Impressions Chest X-Ray 10/13/16 06 Signed Impressions: Service Date/Time: Thursday, October 13, 2016 04:18 - CONCLUSION: Minimal right base atelectasis or consolidation. Red Joshua MD Last Impressions Chest X-Ray 10/12/16 06 Signed Impressions: Service Date/Time: Wednesday, October 12, 2016 05:11 - CONCLUSION: Minimal increased density at the bases representing minimal atelectasis or consolidation. Red Joshua MD Head CT 10/11/161999 Signed Impressions: Service Date/Time: Tuesday, October 11, 2016 22:04 - CONCLUSION: Much worse in the interim. There is increased and extensive subdural and subarachnoid blood as above. Multifocal parenchymal hemorrhage now present of both frontal and temporal lobes, especially the right frontal lobe.. There is about 9 mm of leftward midline shift. 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 MD Pelvis X-Ray 10/11/161212 Signed Impressions: Service Date/Time: Tuesday, October 11, 2016 12:02 - CONCLUSION: Satisfactory trauma pelvis appearance. Red Hoffman MD Chest CT 10/11/161212 Signed Impressions: Service Date/Time: Tuesday, October 11, 2016 12:19 - CONCLUSION: Negative for acute traumatic injury. There is no pneumothorax. Davis Nolasco MD FACR Cervical Spine CT 10/11/161212 Signed Impressions: Service Date/Time: Tuesday, October 11, 2016 12:19 - CONCLUSION: Occipital skull fracture. No evidence of acute traumatic injury in the cervical spine Red Hoffman MD Abdomen/Pelvis CT 10/11/161212 Signed Impressions: Service Date/Time: Tuesday, October 11, 2016 12:19 - CONCLUSION: Negative CT scan of the abdomen and pelvis for acute traumatic injury. Davis Nolasco MD FACR Objective Remarks HEENT/Neuro: No pallor or icterus, tongue moist, pupils pinpoint, equal, reactive. RASS -5. only on fentanyl at 50mcg/hr. GCS 3. Neck: No JVD Chest/pulmonary: CTA bilaterally Cardiovascular: S1-S2 regular no gallop or murmur GI/abdomen: Soft, nontender, bowel sounds present Extremities: Warm bilaterally, no edema Neuro: PERRL. GCS 3. no movements peripherally. A/P Assessment and Plan Assessment: 56yM s/p trauma with TBI, bifrontal contusions, right SDH s/p right crani decompression, traumatic SAH. Continues to be very critically ill. Discussed case with trauma team on rounds. Neuro exam very concerning now off all ANGELICA agonists x 24h. ICP improved. appears that seizures are controlled. will plan to repeat head CT today. would prefer MRI, but unable with bolt. meningitis still a possibility, and continues on empiric therapy for this. ICPs now controlled. if CT head does not show any reason for poor neurologic exam, will consider sitting the patient up to minimize ICP and perform sitting LP to obtain CSF for studies and culture. Abdminal distension also persists, despite good BMs and tolerating tube feeds at goal without any residuals. discussed with trauma team and plan for CT chest/abd/pelvis with iv contrast to search for other sources of infection. Otherwise, will continue to hold sedating meds, keeping low-dose fentanyl for vent synchrony and gently normalize serum Na. continue aggressive bp control, frequent neuro checks. will hold off on tracheostomy for now, though if we continue to be aggressive, will need this eventually. Plan: Neuro: severe Encephalopathy Occipital skull fracture TBI with bifrontal contusions, bifrontal, right temporoparietal subdural hemorrhage, subarachnoid hemorrhage Hearing loss History of alcohol abuse Suspected alcohol withdrawal Malignant Cerebral Edema S/p decompressive craniotomy Seizures --Follow neuro checks --neurosurgery consulted and following: Dr. Cruz --continue to hold sedation. low-dose fentanyl for vent synchrony. -- Keppra to 2gm BID. -- Cerebyx 200mg iv q12h. -- thiamine/folate acid for alcohol withdrawal. --s/p 3% drip. gently normalize serum sodium. continue enteral free water. Cardiovascular: Hypertension -- SBP goals < 160 mmHg -- maintain cerebral perfusion pressure > 65 mmHg -- off vasopressors. --Labetalol/hydralazine when necessary for hypertension. --cardene if needed. -- propranolol 20mg po q6h -- clonidine 0.3mg po q8h Pulmonary: Suspected COPD Acute hypoxic and hypercarbic respiratory failure requiring mechanical ventilation -- Continue mechanical ventilation, vent bundle, Bronchodilators. -- Maintain end-tidal CO2 30-35. -- s/p steroid taper with prednisone (empiric course of steroids for presumed COPD exacerbation). (10/13 - 10/23) -- no SBT while elevated ICP and persistent encephalopathy. -- increase in secretions today with increasing fio2- will obtain CT chest with iv contrast to eval for VAP. GI/liver: Acute protein calorie malnutrition-mild Hypernatremia Abdominal Distension -- TF at goal. -- continue gentle PO free water replacement, 200 q6h. -- daily BMP -- CT abd/pelvis with iv contrast to eval for distension and see if there is any infectious etiology for fever/leukocytosis. Renal/: -- strict intake output, monitor and replete electrolytes, follow BUN/ creatinine. Estrella catheterization. ID: H. Influenza pneumonia- s/p > 7 days abx coverage. Leukocytosis Fever -- Vancomycin with pharmacy dosing -- Rocephin 2gm iv q12h (empiric meningitic dosing). -- yost cultures no growth to date. -- will obtain ct chest/abd/pelvis with iv contrast. -- if work-up continues to be negative, will consider sitting LP to obtain CSF for studies and culture. Endocrine: -- Watch for hyperglycemia, SSI for glycemic control if needed -- s/p steroid taper for presumed COPD exacerbation. Heme: Anemia of Acute Blood Loss -- Follow CBC -- does not meet transfusion triggers at this time. Prophylaxis: -- PPI/SCDs. -- No heparin or Lovenox in view of TBI till cleared by Neurosurgery Condition remains critical with persistently life-threatening elevated ICP and TBI now s/p decompressive crani, hypoxic respiratory failure, malignant edema, hypotension requiring vasopressors, seizures. Time spent on critical care excluding procedures 67 minutes. this time was in addition to and separate in time and discontinuous from any other documented critical care time today. Oswaldo Chambers MD Oct 23, 2016 09:55
[2016-10-23] MEDS ORDERED: IOHEXOL 350 MG/ML 10 ML VIAL (for RAD DIAG) IV ONE (11:24)
--- NOTE | 2016-10-23 12:01 | RADRPT ---
EXAM DATE/TIME: 10/23/2016 11:21 [facility] COMPARISON: CT BRAIN W/O CONTRAST, October 19, 2016, 2:54. INDICATIONS : Post craniotomy. RADIATION DOSE: 56.35 CTDIvol (mGy) MEDICAL HISTORY : Hypertension. SURGICAL HISTORY : Craniotomy. ENCOUNTER: Initial ACUITY: 1 day PAIN SCALE: Non-responsive LOCATION: cranial TECHNIQUE: Multiple contiguous axial images were obtained of the head. Using automated exposure control and adj ustment of the mA and/or kV according to patient size, radiation dose was kept as low as reasonably a chievable to obtain optimal diagnostic quality images. FINDINGS: Examination quality is degraded by motion artifact. Patient is post right sided craniectomy. 2 surgic al drains remain present in the extra-axial space in the right frontal region. There is vasogenic juan ma in the right frontal lobe with local mass effect. The hemorrhagic contusions are less well-visuali zed on the current study possibly due to it least partially the motion artifact. There is right to le ft midline shift measuring 3 mm compared to 6 mm on the prior study. Ventricles are not enlarged. The re is right scalp soft tissue swelling. Skin marisela are present in the overlying region. Air-fluid l evels are present within the maxillary sinuses. There is an occipital bone fracture again visualized. CONCLUSION: 1. Examination quality is degraded by motion artifact. There is decreased midline shift, currently me asuring 3 mm compared to 6 mm on the prior study. 2. There are persistent hemorrhagic contusions in the right frontal lobe but they are less well-visua lized today either related to interval improvement or related to motion artifact. Red Arenas MD on October 23, 2016 at 11:56 Board Certified Radiologist. This report was verified electronically.
--- NOTE | 2016-10-23 12:04 | RADRPT ---
EXAM DATE/TIME: 10/23/2016 11:24 [facility] COMPARISON: CT THORAX W CONTRAST, October 11, 2016, 12:19. INDICATIONS : Fever, evaluate for infection. IV CONTRAST: 100 cc Omnipaque 350 (iohexol) IV ; Cumulative dose for multiple exams. RADIATION DOSE: 13.38 CTDIvol (mGy) ; Combined studies - Thorax/Abdomen/Pelvis MEDICAL HISTORY : ETOH SURGICAL HISTORY : Craniotomy. ENCOUNTER: Initial ACUITY: 1 day PAIN SCALE: Non-responsive LOCATION: chest TECHNIQUE: Volumetric scanning of the chest was performed. Using automated exposure control and adjustment of t he mA and/or kV according to patient size, radiation dose was kept as low as reasonably achievable to obtain optimal diagnostic quality images. FINDINGS: LUNGS: There is airspace consolidation within the left upper lobe and ground glass attenuation is present in the left lower lobe. There is compressive atelectasis in both lower lobes adjacent to the pleural ef fusions. No pneumothorax is present.PLEURA: There are small bilateral pleural effusions that appear simple. MEDIASTINUM: The heart and great vessels demonstrate no acute abnormality. There is no mediastinal or hilar lymph adenopathy. Right IJ line, ETT, and nasogastric tube are present. AXILLAE: Within normal limits. No lymphadenopathy. SKELETAL: No acute osseous abnormality. MISCELLANEOUS: Please refer to abdomen and pelvis CT report for description of the subdiaphragmatic findings. CONCLUSION: 1. Airspace consolidation within the left upper lobe. This could represent an infectious process. 2. Small bilateral pleural effusions with associated compressive atelectasis in the lower lobes. Red Arenas MD on October 23, 2016 at 12:00 Board Certified Radiologist. This report was verified electronically.
--- NOTE | 2016-10-23 12:07 | RADRPT ---
EXAM DATE/TIME: 10/23/2016 11:27 [facility] COMPARISON: CT ABDOMEN & PELVIS W CONTRAST, October 11, 2016, 12:19. INDICATIONS : Fever, evaluate for infection. IV CONTRAST: 100 cc Omnipaque 350 (iohexol) IV ; Cumulative dose for multiple exams. ORAL CONTRAST: No oral contrast ingested. RADIATION DOSE: 13.39 CTDIvol (mGy) ; Combined studies - Thorax/Abdomen/Pelvis MEDICAL HISTORY : ETOH SURGICAL HISTORY : Craniotomy. ENCOUNTER: Initial ACUITY: 1 day PAIN SCALE: Non-responsive LOCATION: Bilateral abdomen. TECHNIQUE: Volumetric scanning of the abdomen and pelvis was performed. Using automated exposure control and ad justment of the mA and/or kV according to patient size, radiation dose was kept as low as reasonably achievable to obtain optimal diagnostic quality images. FINDINGS: LOWER LUNGS: Please refer to chest CT report for description of the supradiaphragmatic findings. LIVER: Homogeneous density without lesion. There is no dilation of the biliary tree. No calcified gallston es. SPLEEN: Normal size without lesion. PANCREAS: Within normal limits. KIDNEYS: Normal in size and shape. There is no mass, stone or hydronephrosis. ADRENAL GLANDS: There is a stable 7 mm nodule on the lateral limb of the left adrenal gland. Right adrenal gland is n ormal. VASCULAR: There is no aortic aneurysm. There is mild atherosclerotic disease. BOWEL/MESENTERY: Nasogastric tube is looped in the stomach with distal tip near the fundus. Small bowel demonstrates n o abnormality. There is diffuse distention of the colon. No free air or significant free fluid is vis ualized. ABDOMINAL WALL: There is anasarca. RETROPERITONEUM: There is no lymphadenopathy. BLADDER: Urinary bladder is decompressed with a Estrella catheter present. REPRODUCTIVE: Within normal limits. INGUINAL: There is no lymphadenopathy or hernia. MUSCULOSKELETAL: There degenerative changes throughout the lumbar spine. CONCLUSION: 1. No acute finding is identified within the abdomen or pelvis. 2. Anasarca. 3. Stable 7 mm nodule on the left adrenal gland. Small size favors a benign process but is incomplete ly characterized on this examination. Red Arenas MD on October 23, 2016 at 12:02 Board Certified Radiologist. This report was verified electronically.
--- NOTE | 2016-10-23 12:50 | HHI.CCPN ---
Subjective Brief History Elderly male who was brought in as a trauma alert after he fell 10 feet from a ladder. GCS 6 initially at the scene subsequently improved to 11 on arrival in the ER. Patient was evaluated by trauma team and subsequently underwent imaging studies and transferred to the ICU. Imaging studies revealed an occipital skull fracture, subdural and subarachnoid blood. Patient was awake and alert at the time of evaluation and following commands and moving all 4 extremities. He could not hear and had some speech difficulty at the time of my evaluation with difficulty in communication though was following commands appropriately. C spine cleared by Neurosurgery at the time of my evaluation. Patient developed worsening agitation despite Precedex last evening. Since then patient had to be intubated ventilated and is currently on propofol fentanyl and Versed drips to keep him down When these are discontinued or less and patient starts biting on the to and becomes restless moves all [address] scan of the head reveals worsening subdural and subarachnoid hemorrhage and the midline shift of about 8 mm 24 Hour Review/Hospital Course Patient has worsened in last 24 hours Repeat CAT scan reveals worsening subdural bleeding over the right parieto- occipital area and [id number] shift of about 8 mm Patient is elderly and a heavy drinker and therefore has atrophy of the brain so there is some more space that allows for compartment pressure IE ICP to remain low We will discuss with neurosurgery about placing ICP monitor or even draining subdural hematoma at this time. Patient remains hyperventilated and on hypertonic saline nonetheless will require bolt placement to assess for ICP and the effectiveness of the therapy 10/13/2016 Patient neurologically unchanged Repeat CAT scan shows some decrease in subdural hematoma and slight decrease in shift yet still severe brain injury At the family's request a second opinion neurosurgery consult was placed and second neurosurgeon has evaluated the patient She will have a long-term recovery here and have discussed this at length with the family Patient may need tracheostomy and PEG tube placement as the part of the appropriate treatment 10/14/2016 Patient with a severe brain injury and subdural hematoma and intraparenchymal hemorrhage Underwent yesterday ventriculostomy placement ICP is within physiologic range at this time and the subdural hematoma size has somewhat decreased There is no change in the neurologic status over the last 24 hours 10/17/16 No change in neurologic status Patient withdraws to pain but does not open eyes or communicates in anyway All sedation has been removed and ventilatory settings been gradually decreased in order to allow for the patient to corn picker his respirations 10/22/16 Patient's neurologic exam remains unchanged. Hypertonic saline was held for profound hypernatremia. EEG showed complete moderate encephalopathy. He will require tracheostomy and gastrostomy tube placement once stable. There was 1 episode of mucous plugging which resolved with aggressive suctioning. 10/23/16 Plan was for tracheostomy today, patient however has elevated ICPs into the 30s We will defer tracheostomy until patient is stable Family at the bedside, however, would like to arrange a palliative care discussion with the family prior to proceeding with tracheostomy and gastrostomy tube placement Objective Vital Signs Date Time Temp Pulse Resp B/P Pulse Ox O2 Delivery O2 Flow Rate FiO2 10/23/16 12:00 98.0 76 24 133/69 94 10/23/16 12:00 60 10/19/16 09:36 Ventilator Intake and Output 10/22/16 10/22/16 10/23/16 08:00 16:00 00:00 Intake Total 2362 ml 1964 ml 1573 ml Output Total 600 ml 2125 ml 1405 ml Balance 1762 ml -161 ml 168 ml Result Diagram: 10/23/16 0404 10/23/16 0404 Imaging Last [address] 10/23/16 0000 Signed Impressions: Service Date/Time: Sunday, October 23, 2016 11:21 - CONCLUSION: 1. Examination quality is degraded by motion artifact. There is decreased midline shift, currently measuring 3 mm compared to 6 mm on the prior study. 2. There are persistent hemorrhagic contusions in the right frontal lobe but they are less well-visualized today either related to interval improvement or related to motion artifact. Red Arenas MD Chest CT 10/23/16 0000 Signed Impressions: Service Date/Time: Sunday, October 23, 2016 11:24 - CONCLUSION: 1. Airspace consolidation within the left upper lobe. This could represent an infectious process. 2. Small bilateral pleural effusions with associated compressive atelectasis in the lower lobes. Red Arenas MD Abdomen/Pelvis CT 10/23/16 0000 Signed Impressions: Service Date/Time: Sunday, October 23, 2016 11:27 - CONCLUSION: 1. No acute finding is identified within the abdomen or pelvis. 2. Anasarca. 3. Stable 7 mm nodule on the left adrenal gland. Small size favors a benign process but is incompletely characterized on this examination. 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 FRONT EDGER Intubated and sedated, ICPs remain elevated patient with a [place] Coma Scale of 3T Hemodynamic/Cardiac Regular rate and rhythm, stable Pulmonary/Respiratory Clear to auscultation bilaterally Abdomen/GI Nutrition Soft, mildly distended and tympanic, nontender Renal/I&O Adequate urine output, slightly elevated BUN, stable Hematologic Hemoglobin stable at 10.5, persistent leukocytosis 27.3 Assessment and Plan Plan Neuro-continue hypertonic therapy for elevated ICPs patient is on Keppra Celebrex for seizure prophylaxis Pulmonary-continue full ventilator support, will require tracheostomy once stable from a neurologic standpoint. Cardio-stable continue hemodynamic monitoring GI-continue nutritional support -continue Estrella for hemodynamic monitoring ID-patient is on vancomycin and Rocephin prophylactically FEN-continue nutritional support and replace electrolytes as needed, continue to monitor sodium levels Patient remains critically ill with severe traumatic brain injury and acute respiratory failure due to his injuries Total critical care time 35 minutes Jayjay Barrow MD Oct 23, 2016 12:50
[2016-10-23] MEDS ORDERED: NEOSTIGMINE 3 MG/3 ML SYR IV ONE (15:30)
[2016-10-23] MEDS ORDERED: ATROPINE SULFATE 1 MG/10 ML SYRINGE ONE (15:50)
[2016-10-23] MEDS ORDERED: NEOSTIGMINE METHYLSULFATE 10 MG/10 ML VIAL IV PUSH ONE (16:00)
[2016-10-23] MEDS ORDERED: NOREPINEPHRINE-DEXTROSE DRIP 250 ML IV ONE (16:02)
[2016-10-23] MEDS ORDERED: FUROSEMIDE 100 MG/10 ML VIAL IV PUSH ONE (16:30)
--- NOTE | 2016-10-23 17:11 | HHI.NSPN ---
History Chief Complaint: intubated and sedated Interval History 56-year-old male presented to the emergency room 10/11/2016 following a 10 foot fall from a ladder. Initial GCS 6, and initially improved to 11 in the emergency room. Patient diagnosed with traumatic brain injury with skull fracture and subarachnoid hemorrhage with subdural hematoma. ICP monitor placed. Patient has been intubated and sedated since stable admission. Exam Results Vital Signs Date Time Temp Pulse Resp B/P Pulse Ox O2 Delivery O2 Flow Rate FiO2 10/23/16 16:00 60 10/23/16 16:00 98.9 83 23 138/70 92 10/19/16 09:36 Ventilator Intake and Output 10/22/16 10/22/16 10/23/16 08:00 16:00 00:00 Intake Total 2362 ml 1964 ml 1573 ml Output Total 600 ml 2125 ml 1405 ml Balance 1762 ml -161 ml 168 ml Physical Examination Mr Nixon is intubated and well sedated. Does not open eyes or follow commands Right flap is still full and tight. [place] monitor in place, ICP =4 Two EDY drains in place with minimal output. Surgical healing well, clean, no drainage seen. Cranial Nerves: Pupils 2-3 mm equal Has mildly disconjugate slightly wandering eye movements Motor: no spontaneous movements, deeply sedated Sensory: no withdrawals to local pain x 4 Plantars silent b/l Cerebellar: cannot assess Lab, Micro, Other Results 10/23/2016 CT scan had images reviewed. There appears to be improving mass effect and midline shift with expected evolution of cerebral contusions. Head CT 10/23/16 0000 Signed Impressions: Service Date/Time: Sunday, October 23, 2016 11:21 - CONCLUSION: 1. Examination quality is degraded by motion artifact. There is decreased midline shift, currently measuring 3 mm compared to 6 mm on the prior study. 2. There are persistent hemorrhagic contusions in the right frontal lobe but they are less well-visualized today either related to interval improvement or related to motion artifact. Red Arenas MD Chest CT 10/23/16 0000 Signed Impressions: Service Date/Time: Sunday, October 23, 2016 11:24 - CONCLUSION: 1. Airspace consolidation within the left upper lobe. This could represent an infectious process. 2. Small bilateral pleural effusions with associated compressive atelectasis in the lower lobes. Red Arenas MD Abdomen/Pelvis CT 10/23/16 0000 Signed Impressions: Service Date/Time: Sunday, October 23, 2016 11:27 - CONCLUSION: 1. No acute finding is identified within the abdomen or pelvis. 2. Anasarca. 3. Stable 7 mm nodule on the left adrenal gland. Small size favors a benign process but is incompletely characterized on this examination. Red Arenas MD Laboratory Tests Test 10/23/16 04:04 White Blood Count 27.3 TH/MM3 Red Blood Count 3.26 MIL/MM3 Hemoglobin 10.5 GM/DL Hematocrit 32.3 % Mean Corpuscular Volume 99.3 FL Mean Corpuscular Hemoglobin 32.3 PG Mean Corpuscular Hemoglobin 32.5 % Concent Red Cell Distribution Width 14.9 % Platelet Count 307 TH/MM3 Mean Platelet Volume 8.8 FL Neutrophils (%) (Auto) 83.1 % Lymphocytes (%) (Auto) 6.5 % Monocytes (%) (Auto) 8.9 % Eosinophils (%) (Auto) 1.0 % Basophils (%) (Auto) 0.5 % Neutrophils # (Auto) 22.7 TH/MM3 Lymphocytes # (Auto) 1.8 TH/MM3 Monocytes # (Auto) 2.4 TH/MM3 Eosinophils # (Auto) 0.3 TH/MM3 Basophils # (Auto) 0.1 TH/MM3 CBC Comment AUTO DIFF Differential Total Cells 100 Counted Neutrophils % (Manual) 84 % Band Neutrophils % 4 % Lymphocytes % 4 % Monocytes % 5 % Eosinophils % 2 % Neutrophils # (Manual) 24.3 TH/MM3 Myelocytes 1 % Differential Comment FINAL DIFF MANUAL Platelet Estimate NORMAL Platelet Morphology Comment NORMAL Red Cell Morphology Comment NORMAL Sodium Level 153 MEQ/L Potassium Level 4.1 MEQ/L Chloride Level 120 MEQ/L Carbon Dioxide Level 25.9 MEQ/L Anion Gap 7 MEQ/L Blood Urea Nitrogen 22 MG/DL Creatinine 0.65 MG/DL Estimat Glomerular Filtration 127 ML/MIN Rate Random Glucose 78 MG/DL Calcium Level 8.6 MG/DL Phosphorus Level 3.4 MG/DL Magnesium Level 2.8 MG/DL Total Bilirubin 0.4 MG/DL Aspartate Amino Transf 36 U/L (AST/SGOT) Alanine Aminotransferase 56 U/L (ALT/SGPT) Alkaline Phosphatase 148 U/L Total Protein 6.7 GM/DL Albumin 1.9 GM/DL Medical Decision Making Impression and Plan Impression: 1. Presently satisfactory ICPs with stable neurologic exam in patient status post right decompressive craniotomy, evacuation hematoma following traumatic brain injury. Plan: Continue sedation, ventilatory support, ICP monitoring. Continue monitoring sodium. Despite present satisfactory ICP, patient has occasional brief spikes with changes in position, and right scalp flap is still rather tense. Continue to keep sodium in the low to mid 150 range. Seizure prophylaxis Ulcer prophylaxis Roberto Arias MD Oct 23, 2016 17:11
[2016-10-23] MEDS: fentaNYL 2,500 MCG/NS 250 ML IV SCH (19:54)
[2016-10-23] MEDS: THIAMINE IV SCH ×2 (20:00)
[2016-10-24] VITALS (16 sets, daily range): BP systolic 131–155; BP diastolic 58–65; PULSE 67–88; RESP 19–26; TEMP 97.7–99.6; O2SAT 92–100
[2016-10-24] MEDS: PROPRANOLOL HCL 20 MG TAB PO SCH ×5 (00:10→23:56)
[2016-10-24] MEDS: FREE WATER G-TUBE SCH ×3 (04:00→08:00)
[2016-10-24] MEDS: CHLORHEXIDINE GLUCONATE 2 % 1 PACK (2 CLOTHS) TOP SCH (04:00)
[2016-10-24 04:18] LABS: AUTOMATED NEUTROPHIL # 17.9 TH/MM3 (1.8-7.7); BASOPHIL # 0.1 TH/MM3 (0-0.2); BASOPHIL % 0.4 % (0.0-2.0); EOSINOPHIL # 0.2 TH/MM3 (0-0.4); EOSINOPHIL % 0.9 % (0.0-4.0); HEMATOCRIT 29.4 % (39.0-51.0); LYMPH % 5.9 % (9.0-44.0); LYMPHOCYTE # 1.2 TH/MM3 (1.0-4.8); MEAN CELL VOLUME 98.3 FL (80.0-100.0); MEAN CORPUSCULAR HEMOGLOBIN 32.2 PG (27.0-34.0); MEAN CORPUSCULAR HGB CONC 32.7 % (32.0-36.0); MONO % 7.9 % (0.0-8.0); NEUT % 84.9 % (16.0-70.0); PLATELET COUNT 273 TH/MM3 (150-450); RED BLOOD COUNT 2.99 MIL/MM3 (4.50-5.90); RED CELL DISTRIBUTION WIDTH 14.4 % (11.6-17.2); WHITE BLOOD COUNT 21.1 TH/MM3 (4.0-11.0)
[2016-10-24 04:31] LABS: HEMO FLAGS AUTO DIFF
[2016-10-24 04:55] LABS: BANDS 4 % (0-6); POLYS (SEG NEUTROPHILS) 86 % (16-70); WBC DIFF SAMPLE 100
[2016-10-24 04:56] LABS: PLATELET ESTIMATE SMEAR NORMAL (NORMAL); PLATELET MORPHOLOGY NORMAL (NORMAL); SCAN/DIFF FINAL DIFF MANUAL
[2016-10-24 05:29] LABS: ALKALINE PHOSPHATASE 144 U/L (45-117); ALT (GPT) 42 U/L (12-78); ANION GAP 8 MEQ/L (5-15); AST (GOT) 27 U/L (15-37); BICARBONATE 27.5 MEQ/L (21.0-32.0); BLOOD UREA NITROGEN 26 MG/DL (7-18); CHLORIDE 109 MEQ/L (98-107); GLOMERULAR FILTRATION RATE 120 ML/MIN (>89); MAGNESIUM 2.4 MG/DL (1.5-2.5); POTASSIUM 4.2 MEQ/L (3.5-5.1); SODIUM (NA) 144 MEQ/L (136-145); TOTAL BILIRUBIN ADULT 0.3 MG/DL (0.2-1.0)
--- NOTE | 2016-10-24 05:30 | RADRPT ---
EXAM DATE/TIME: 10/24/2016 04:52 [facility] COMPARISON: CHEST SINGLE AP, October 22, 2016, 15:32. INDICATIONS : Shortness of breath. MEDICAL HISTORY : Hypertension. Cardiovascular disease. SURGICAL HISTORY : None. ENCOUNTER: Subsequent ACUITY: 2 weeks PAIN SCORE: Non-responsive. LOCATION: Bilateral chest FINDINGS: Endotracheal tube and nasogastric tube are noted in satisfactory position. Right subclavian central l ine is in good position. There has been removal of a left subclavian line. Aeration is slightly impro karlos with decrease in confluence of basilar pleuroparenchymal opacities. Cardiac contours are stable. CONCLUSION: Slight improvement in aeration Red Hoffman MD on October 24, 2016 at 5:28 Board Certified Radiologist. This report was verified electronically.
[2016-10-24] MEDS: cloNIDine HCL 0.3 MG TAB PO SCH ×3 (06:00→21:42)
[2016-10-24] MEDS: CHLORHEXIDINE 0.12% (ORAL KIT) 15 ML CUP MT SCH ×2 (08:00→20:17)
[2016-10-24] MEDS: CEFTRIAXONE IV SCH ×4 (08:09→20:18)
[2016-10-24] MEDS: SODIUM CHLORIDE 0.9% FLUSH 5 ML FLUSH IVF SCH ×2 (08:09→20:27)
[2016-10-24] MEDS: POLYETHYLENE GLYCOL 17 GM PKG PO SCH ×2 (08:09→21:00)
[2016-10-24] MEDS: PANTOPRAZOLE SODIUM 40 MG VIAL IVP SCH (08:09)
[2016-10-24] MEDS: DOCUSATE SODIUM 100 MG CAP PO SCH ×2 (08:09→21:00)
[2016-10-24] MEDS: WATER IV SCH ×14 (08:09→21:38)
[2016-10-24] MEDS: DEXTROSE 5% IV SCH ×14 (08:09→21:38)
[2016-10-24] MEDS: DEXTROSE IV SCH ×4 (08:10→20:19)
[2016-10-24] MEDS: FOSPHENYTOIN IV SCH ×4 (08:10→20:19)
[2016-10-24] MEDS: LEVETIRACETAM IV SCH ×4 (08:36→20:18)
[2016-10-24] MEDS: WATE IV SCH ×4 (08:36→20:18)
[2016-10-24] MEDS: LACTULOSE SYRUP 20 GM/30 ML CUP PO SCH ×3 (09:00→17:49)
[2016-10-24] MEDS: MAGNESIUM HYDROXIDE SUSP 30 ML CUP PO SCH (09:00)
[2016-10-24] MEDS: VANCOMYCIN IV SCH ×4 (09:22→20:18)
--- NOTE | 2016-10-24 09:36 | HHI.CCPN ---
Subjective Remarks/Hospital Course 10/11: Elderly male who was brought in as a trauma alert after he fell 10 feet from a ladder. GCS 6 initially at the scene subsequently improved to 11 on arrival in the ER. Patient was evaluated by trauma team and subsequently underwent imaging studies and transferred to the ICU. Critical care consult was requested by Dr. Menezes. Patient was initially on a nonrebreather facemask however by the time I saw him he had been switched to nasal cannula and did not appear to be in any acute distress. Imaging studies revealed an occipital skull fracture, subdural and subarachnoid blood. Patient was awake and alert at the time of evaluation and following commands and moving all 4 extremities. He could not hear and had some speech difficulty at the time of my evaluation with difficulty in communication though was following commands appropriately. C spine cleared by Neurosurgery at the time of my evaluation. 10/12: Patient developed worsening agitation despite Precedex last evening. He was started on Ativan as his gives history that he drinks 12 beers a day and if he does not drink has a tendency to go into withdrawal very quickly. Patient was subsequently intubated and placed on mechanical ventilation, his head CT from last evening shows worsening bilateral subdural and subarachnoid hemorrhages, right temporoparietal subdural hemorrhage with 9 mm leftward midline shift. He was started on 3% saline. Currently sedated with Versed/ fentanyl/propofol. 10/13: Remains sedated, orally intubated on mechanical ventilation. On Versed/ fentanyl/propofol drips. Gets agitated on attempting to cut down on propofol which is currently at 30 mics per minute, Versed 10 mg/h, fentanyl 150 g per hour. 10/14: ICPs still borderline, mid-teens. remains sedated. EVD placed yesterday. midline shift slightly improved after EVD placement. 10/15: ICPs improved significantly. < 10 all night. EVD clamped. 10/16: ICPs stable off versed. sodium continues to rise. withdraws to pain x 4. 10/18: not waking up. repeat head CT shows interval expansion of SDH with 1.2 cm midline shift. taken for decompression to OR. Dr. Cruz asked CCM to reconsult and assist in management of post-operative craniectomy. 10/19: overnight, ICP significantly increased. stat repeat head CT without interval change. this morning ICP still elevated 22-23. versed drip started, 3 % infusion started back, 25gm mannitol ordered x 1. now on norepinephrine to maintain cerebral perfusion pressure. 3: EEG with sz activity yesterday. keppra increased and neurology consulted. persists on low-dose norepinephrine to maintain cerebral perfusion pressure. 3% continues. ICP continues to be elevated despite sedation and hyperosmolar therapy. propofol up to 100mcg/kg/min, versed 10mg/hr. 10/21: EEG slightly improved after Cerebyx load, and ICP significantly improved. slightly weaning high-dose sedatives, but not planning to perform sedation vacation today. 3% continues today. vasopressors weaned off overnight. 10/22: ICPs much better controlled. 3% off today. persistently poor neuro exam. off pressors this AM. 10/23: ICPs continue to improve, though when flat, the ICPs jump up to 30 transiently. currently 3. his neuro exam continues to be quite poor- +cough, + gag, but flaccid x 4. unable to go to MRI due to bolt. blood, sputum cultures NGTD. remains febrile with leukocytosis. Subjective 10/24: Currently on fentanyl drip at 100 mg an hour. Tmax 99 4. Positive BM. Positive corneal reflex otherwise no gag appreciated on my examination. Doesn' t withdraw to pain/flaccid. Noted palliative care consulted tomorrow okayed with, physician over weekend. Continues to have a leukocytosis Objective Vital Signs Date Time Temp Pulse Resp B/P Pulse Ox O2 Delivery O2 Flow Rate FiO2 10/24/16 08:00 99.3 70 19 150/64 98 10/24/16 08:00 50 Intake and Output 10/23/16 10/23/16 10/24/16 08:00 16:00 00:00 Intake Total 1130 ml 1338 ml 1537 ml Output Total 704 ml 760 ml 1902 ml Balance 426 ml 578 ml -365 ml Result Diagram: 10/24/16 0400 10/24/16 0400 Other Results Microbiology Date/Time Procedure Status Source Growth 10/19/16 12:00 Aerobic Blood Culture - Preliminary Resulted Blood Peripheral NO GROWTH IN 4 DAYS 10/19/16 12:00 Anaerobic Blood Culture - Preliminary Resulted Blood Peripheral NO GROWTH IN 4 DAYS Imaging Last Impressions Chest X-Ray 10/24/16 0600 Signed Impressions: Service Date/Time: Monday, October 24, 2016 04:52 - CONCLUSION: Slight improvement in aeration Red Hoffman MD Head CT 10/23/16 0000 Signed Impressions: Service Date/Time: Sunday, October 23, 2016 11:21 - CONCLUSION: 1. Examination quality is degraded by motion artifact. There is decreased midline shift, currently measuring 3 mm compared to 6 mm on the prior study. 2. There are persistent hemorrhagic contusions in the right frontal lobe but they are less well-visualized today either related to interval improvement or related to motion artifact. Red Arenas MD Chest CT 10/23/16 0000 Signed Impressions: Service Date/Time: Sunday, October 23, 2016 11:24 - CONCLUSION: 1. Airspace consolidation within the left upper lobe. This could represent an infectious process. 2. Small bilateral pleural effusions with associated compressive atelectasis in the lower lobes. Red Arenas MD Abdomen/Pelvis CT 10/23/16 0000 Signed Impressions: Service Date/Time: Sunday, October 23, 2016 11:27 - CONCLUSION: 1. No acute finding is identified within the abdomen or pelvis. 2. Anasarca. 3. Stable 7 mm nodule on the left adrenal gland. Small size favors a benign process but is incompletely characterized on this examination. eRd Arenas MD Neck CTA 10/12/16 0000 Signed Impressions: Service Date/Time: Wednesday, October 12, 2016 09:27 - CONCLUSION: Mild atherosclerotic changes in the proximal portions of both internal carotid arteries but no significant stenosis. Dez Petersen MD Head CTA 10/12/16 0000 Signed Impressions: Service Date/Time: Wednesday, October 12, 2016 09:27 - CONCLUSION: No evidence of acute vascular injury Red Hoffman MD Pelvis X-Ray 10/11/16 1213 Signed Impressions: Service Date/Time: Tuesday, October 11, 2016 12:02 - CONCLUSION: Satisfactory trauma pelvis appearance. Red Hoffman MD Cervical Spine CT 10/11/16 1213 Signed Impressions: Service Date/Time: Tuesday, October 11, 2016 12:19 - CONCLUSION: Occipital skull fracture. No evidence of acute traumatic injury in the cervical spine Red Hoffman MD Objective Remarks GENERAL: 56-year-old male, critically ill currently orotracheally intubated SKIN: Warm and dry. No rash HEAD: History of right occipital fracture with left EVD placed EYES: Pupils equal and round about 3 Mendoza's bilaterally and very sluggish. No scleral icterus. No injection or drainage. ENT: No nasal bleeding or discharge. Mucous membranes pink and moist. NECK: Trachea midline. No JVD. CARDIOVASCULAR: Regular rate and rhythm. S1, S2. No S4. Without murmur RESPIRATORY: Breath sounds are diminished throughout. No and expiratory wheeze. GASTROINTESTINAL: Abdomen soft, non-tender, slightly distended. Hypoactive bowel sounds appreciated. MUSCULOSKELETAL: Extremities with 1+ upper and lower extremity edema. No obvious deformities. NEUROLOGICAL: Positive corneal reflex. Did not elicit a gag. Flaccid. Does not withdraw to pain to noxious stimuli bilateral upper and lower extremity. A/P Assessment and Plan Neuro/Psych: Severe toxic metabolic Encephalopathy Right-sided Occipital skull fracture TBI with bifrontal contusions, bifrontal, right temporoparietal subdural hemorrhage, subarachnoid hemorrhage Hearing loss History of alcohol abuse with likely withdrawal Malignant Cerebral Edema S/p decompressive craniotomy Seizures CT head 10/23 revealed improvement right flexion 53 mm. Significant stable right hemorrhagic contusions/subdural hematoma/subarachnoid hemorrhage --neurosurgery consulted and following: Dr. Cruz status post EVD -14 cc past 24 hours --Neurology consult in following/Dr. Wong --continue to hold sedation. low-dose fentany currently on 100 an hour for vent synchrony. --EEG 10/20 revealed severe encephalopathy with possible strep activity in the right frontal region -- Keppra to 2gm BID. Last level 10.9. -- Cerebyx 200mg iv q12h.. Last of 6.5. Recheck in a.m. -- thiamine/folate acid for alcohol withdrawal. --s/p 3% drip. We'll hold free water 300 every 4 light of sodium 144 Cardiovascular: Hypertension -- SBP goals < 160 mmHg -- maintain cerebral perfusion pressure > 65 mmHg --Labetalol/hydralazine/Cardene when necessary for hypertension. -- propranolol 20mg po q6h and clonidine 0.3 mg by mouth every 8 hours for blood pressure management Pulmonary: Acute hypoxic and hypercarbic respiratory failure requiring mechanical ventilation Suspected COPD -- Continue mechanical ventilation PRVC 16/600/0.7/10/50, -- vent bundle -- Bronchodilators every 6 hours and as needed. -- Maintain end-tidal CO2 30-35. -- s/p steroid taper with prednisone (empiric course of steroids for presumed COPD exacerbation). (10/13 - 10/23) -- no SBT while elevated ICP and persistent encephalopathy. CT chest revealed possible left upper lobe pneumonia 10/23 GI/liver: Acute protein calorie malnutrition-mild Hypernatremia - resolving Abdominal Distension Left adrenal adenoma Hepatitis C -- TF at goal. With Jevity 1.5 goal 60 cc an hour --Will hold free water 300 every 4 --Protonix for GI prophylaxis -- Colace/Senokot/MiraLAX/lactulose for bowel regimen -- daily BMP -- CT abd/pelvis 10/23 with iv contrast to did not reveal etiology for fevers. Left adrenal adenoma noted. Hepatitis C -- Check genotype and viral load. Renal/: -- strict intake output, monitor and replete electrolytes, follow BUN/ creatinine. Estrella catheterization. ID: H. Influenza pneumonia- s/p > 7 days abx coverage. Leukocytosis Pyrexia -- Vancomycin with pharmacy dosing -- Rocephin 2gm iv q12h (empiric meningitic dosing). Pertinent cultures 10/15 - sputum - Haemophilus influenza 10/15 - blood cultures - NGTD 10/19 - blood cultures NGTD Recheck blood cultures 2 today with sputum and urine Endocrine: -- Watch for hyperglycemia, SSI for glycemic control if needed -- s/p steroid taper for presumed COPD exacerbation. Heme: Anemia of Acute Blood Loss Leukocytosis -- Follow CBC -- does not meet transfusion triggers at this time. Access - Right subclavian CVL placed 3/3 Previously had left subclavian CVL placed 10/11 Prophylaxis: -- PPI/SCDs. --Holding pharmacological prophylaxis in light of TBI until cleared by Neurosurgery Critical Care: The total critical care time was 35 minutes. Time to perform other separately billable procedures was not included in the critical care time. Phil Pino MD Oct 24, 2016 09:35
[2016-10-24] MEDS ORDERED: BUMETANIDE INJ 1 MG/4 ML VIAL IV PUSH ONE (10:00)
[2016-10-24 10:33] LABS: BACTERIA, URINE OCC /hpf; BLOOD, URINE SMALL (NEG); COMMENT (UR) CATH-CULTURE IND; CULTURE IF INDICATED CATH CULTURE IND; GLUCOSE,URINE NEG (NEG); KETONE, URINE NEG (NEG); MUCUS URINE FEW /lpf (OCC); NITRITE,URINE NEG (NEG); URINE COLOR YELLOW (YELLW/STRAW)
[2016-10-24] MEDS: hydrALAZINE HCL 20 MG/ML VIAL IV PUSH PRN (10:37)
--- NOTE | 2016-10-24 12:26 | HHI.CCPN ---
Subjective Brief History Elderly male who was brought in as a trauma alert after he fell 10 feet from a ladder. GCS 6 initially at the scene subsequently improved to 11 on arrival in the ER. Patient was evaluated by trauma team and subsequently underwent imaging studies and transferred to the ICU. Imaging studies revealed an occipital skull fracture, subdural and subarachnoid blood. Patient was awake and alert at the time of evaluation and following commands and moving all 4 extremities. He could not hear and had some speech difficulty at the time of my evaluation with difficulty in communication though was following commands appropriately. C spine cleared by Neurosurgery at the time of my evaluation. Patient developed worsening agitation despite Precedex last evening. Since then patient had to be intubated ventilated and is currently on propofol fentanyl and Versed drips to keep him down When these are discontinued or less and patient starts biting on the to and becomes restless moves all [address] scan of the head reveals worsening subdural and subarachnoid hemorrhage and the midline shift of about 8 mm 24 Hour Review/Hospital Course Patient has worsened in last 24 hours Repeat CAT scan reveals worsening subdural bleeding over the right parieto- occipital area and [id number] shift of about 8 mm Patient is elderly and a heavy drinker and therefore has atrophy of the brain so there is some more space that allows for compartment pressure IE ICP to remain low We will discuss with neurosurgery about placing ICP monitor or even draining subdural hematoma at this time. Patient remains hyperventilated and on hypertonic saline nonetheless will require bolt placement to assess for ICP and the effectiveness of the therapy 10/13/2016 Patient neurologically unchanged Repeat CAT scan shows some decrease in subdural hematoma and slight decrease in shift yet still severe brain injury At the family's request a second opinion neurosurgery consult was placed and second neurosurgeon has evaluated the patient She will have a long-term recovery here and have discussed this at length with the family Patient may need tracheostomy and PEG tube placement as the part of the appropriate treatment 10/14/2016 Patient with a severe brain injury and subdural hematoma and intraparenchymal hemorrhage Underwent yesterday ventriculostomy placement ICP is within physiologic range at this time and the subdural hematoma size has somewhat decreased There is no change in the neurologic status over the last 24 hours 10/17/16 No change in neurologic status Patient withdraws to pain but does not open eyes or communicates in anyway All sedation has been removed and ventilatory settings been gradually decreased in order to 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 Hypertonic saline was held for profound hypernatremia. EEG showed complete moderate encephalopathy. He will require tracheostomy and gastrostomy tube placement once stable. There was 1 episode of mucous plugging which resolved with aggressive suctioning. 10/23/16 Plan was for tracheostomy today, patient however has elevated ICPs into the 30s We will defer tracheostomy until patient is stable 10/24/16 ICP is improved following administration of neostigmine and a large bowel movement He is likely ready for tracheostomy now, as long as his ICPs remain low Palliative care consult placed for tomorrow, will await input from palliative care and family prior to tracheostomy and feeding tube placement Prognosis at this point remains grim for meaningful recovery Objective Vital Signs Date Time Temp Pulse Resp B/P Pulse Ox O2 Delivery O2 Flow Rate FiO2 10/24/16 12:00 50 10/24/16 12:00 97.7 83 24 138/63 92 Intake and Output 10/23/16 10/23/16 10/24/16 08:00 16:00 00:00 Intake Total 1130 ml 1338 ml 1537 ml Output Total 704 ml 760 ml 1902 ml Balance 426 ml 578 ml -365 ml Result Diagram: 10/24/16 0400 10/24/16 0400 Other Results Microbiology Date/Time Procedure Status Source Growth 10/24/16 09:46 Influenza Types A,B Antigen (JADE) - Final Complete Nasal Aspirate NEGATIVE FOR FLU A AND B ANTIGEN.... 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 Patient off sedation with a Pawel Coma Scale of 3T ICPs remain low while upright Hemodynamic/Cardiac Regular rate and rhythm, stable Pulmonary/Respiratory Clear to auscultation bilaterally Abdomen/GI Nutrition Soft nontender nondistended Renal/I&O Elevated BU and with good urine output Hematologic Stable Assessment and Plan Plan Neuro-continue hypertonic therapy for elevated ICPs patient is on Keppra Celebrex for seizure prophylaxis Pulmonary-continue full ventilator support, will require tracheostomy if family decides to proceed Cardio-stable continue hemodynamic monitoring GI-continue nutritional support, will require gastrostomy tube if family decides to proceed -continue Estrella for hemodynamic monitoring ID-patient is on vancomycin and Rocephin prophylactically, will continue for now FEN-continue nutritional support and replace electrolytes as needed, continue to monitor sodium levels Patient remains critically ill with severe traumatic brain injury and acute respiratory failure due to his injuries. He has a poor prognosis for meaningful recovery and a palliative care consult has been placed for tomorrow. Once the family understands the prognosis, if they wish to continue care he will require tracheostomy and gastrostomy tube placement and eventually transferred to a long-term care facility. Total critical care time 35 minutes Jayjay Barrow MD Oct 24, 2016 12:26
[2016-10-24] MEDS: oxyCODONE HCL ORAL CONC 20 MG/ML SYRINGE PO PRN (12:52)
[2016-10-24] MEDS: LABETALOL HCL 100 MG/20 ML VIAL IV PUSH PRN (17:25)
--- NOTE | 2016-10-24 18:42 | HHI.NSPN ---
History Chief Complaint: intubated and sedated Interval History 56-year-old male presented to the emergency room 10/11/2016 following a 10 foot fall from a ladder. Initial GCS 6, and initially improved to 11 in the emergency room. Patient diagnosed with traumatic brain injury with skull fracture and subarachnoid hemorrhage with subdural hematoma. ICP monitor placed. Patient has been intubated and sedated since stable admission. Exam Results Vital Signs Date Time Temp Pulse Resp B/P Pulse Ox O2 Delivery O2 Flow Rate FiO2 10/24/16 18:00 145/63 10/24/16 17:37 96 50 10/24/16 16:00 84 10/24/16 16:00 99.3 25 Intake and Output 10/23/16 10/23/16 10/24/16 08:00 16:00 00:00 Intake Total 1130 ml 1338 ml 1537 ml Output Total 704 ml 760 ml 1902 ml Balance 426 ml 578 ml -365 ml Physical Examination Mr Nixon is intubated No IV sedation Minimal eye opening to deep pain Does not follow commands Right flap is still full and tight. Incision healing well [place] monitor in place, ICP =2 Two [address]Y drains in place with minimal output. Surgical healing well, clean, no drainage seen. Cranial Nerves: Pupils 2-3 mm equal Has mildly disconjugate slightly wandering eye movements Motor: Mild flexion upper extremities to deep pain Sensory: no withdrawals to local pain x 4 Plantars silent b/l Cerebellar: cannot assess Medical Decision Making Impression and Plan Impression: 1. Presently satisfactory ICPs with stable neurologic exam in patient status post right decompressive craniotomy, evacuation hematoma following traumatic brain injury. Minimal eye opening to deep pain and mild flexion upper extremities to deep pain with sedation off, otherwise no improvement in neurologic function off sedation Plan: Drains discontinued Continue off sedation as tolerated, ventilatory support, ICP monitoring. Continue monitoring sodium. Despite present satisfactory ICP, patient has occasional brief spikes with changes in position, and right scalp flap is still rather tense. Continue to keep sodium in the low to mid 150 range. Seizure prophylaxis Ulcer prophylaxis Roberto Arias MD Oct 24, 2016 18:42
[2016-10-24] MEDS: SENNOSIDES SYRUP 8.8 MG/5 ML CUP PO/NG SCH (21:00)
[2016-10-24] MEDS: THIAMINE IV SCH ×2 (21:38)
[2016-10-25] VITALS (16 sets, daily range): BP systolic 110–156; BP diastolic 51–74; PULSE 76–104; RESP 20–27; TEMP 98.3–100.4; O2SAT 95–100
[2016-10-25] MEDS: CHLORHEXIDINE GLUCONATE 2 % 1 PACK (2 CLOTHS) TOP SCH (04:00)
--- NOTE | 2016-10-25 04:25 | RADRPT ---
EXAM DATE/TIME: 10/25/2016 03:18 [facility] COMPARISON: CHEST SINGLE AP, October 24, 2016, 4:52. INDICATIONS : Shortness of breath. MEDICAL HISTORY : Hypertension. Cardiovascular disease. SURGICAL HISTORY : None. ENCOUNTER: Subsequent ACUITY: 2 weeks PAIN SCORE: Non-responsive. LOCATION: Bilateral chest FINDINGS: A single view of the chest demonstrates bibasilar consolidation/effusion which may be slightly worse when compared to the prior exam. Heart size is normal. Endotracheal and nasogastric tubes are grossly stable in position as is the right subclavian central venous catheter. Degenerative spurring of the dorsal spine. CONCLUSION: 1. Persistent bibasilar consolidation/effusion. This may be slightly worse when compared to the prior . 2. Stable position of life support tubes. Mundo Rosa MD on October 25, 2016 at 4:21 Board Certified Radiologist. This report was verified electronically.
[2016-10-25 05:14] LABS: BLOOD GAS BASE EXCESS 3.4 mmol/L (-2-2); BLOOD GAS CARBOXYHEMOGLOBIN 1.1 % (0-4); BLOOD GAS HCO3 27 mmol/L (22-26); BLOOD GAS METHEMOGLOBIN 0.9 % (0-2); BLOOD GAS O2 HGB SATURATION 93 % (90-100); BLOOD GAS OXYGEN CONTENT 13.6 Vol % (12.0-20.0); BLOOD GAS PCO2 38 mmHg (38-42); BLOOD GAS PO2 75 mmHg (61-120); BLOOD GAS TOTAL HGB 10.4 G/DL (12.0-16.0); CRITICAL VALUE NO; OXYGEN DEVICE VENTILATOR; TEMP CORR TO 98.6
[2016-10-25 05:15] LABS: DRAW SITE ART LINE; FIO2 50 %; STAT NO; VENT SETTINGS PRVC/AC
[2016-10-25] MEDS: cloNIDine HCL 0.3 MG TAB PO SCH ×3 (05:41→22:00)
[2016-10-25] MEDS: PROPRANOLOL HCL 20 MG TAB PO SCH ×3 (05:41→17:39)
[2016-10-25 06:40] LABS: AUTOMATED NEUTROPHIL # 10.1 TH/MM3 (1.8-7.7); BASOPHIL # 0.1 TH/MM3 (0-0.2); BASOPHIL % 0.6 % (0.0-2.0); EOSINOPHIL # 0.2 TH/MM3 (0-0.4); EOSINOPHIL % 1.6 % (0.0-4.0); HEMATOCRIT 26.9 % (39.0-51.0); HEMO FLAGS DIFF FINAL; MEAN CELL VOLUME 96.2 FL (80.0-100.0); MEAN CORPUSCULAR HEMOGLOBIN 32.5 PG (27.0-34.0); MEAN CORPUSCULAR HGB CONC 33.8 % (32.0-36.0); MONO % 10.5 % (0.0-8.0); NEUT % 79.3 % (16.0-70.0); PLATELET COUNT 280 TH/MM3 (150-450); RED BLOOD COUNT 2.79 MIL/MM3 (4.50-5.90); RED CELL DISTRIBUTION WIDTH 14.1 % (11.6-17.2); WHITE BLOOD COUNT 12.8 TH/MM3 (4.0-11.0)
[2016-10-25 07:24] LABS: ALKALINE PHOSPHATASE 170 U/L (45-117); ALT (GPT) 43 U/L (12-78); ANION GAP 5 MEQ/L (5-15); AST (GOT) 47 U/L (15-37); BICARBONATE 30.4 MEQ/L (21.0-32.0); BLOOD UREA NITROGEN 24 MG/DL (7-18); CHLORIDE 111 MEQ/L (98-107); GLOMERULAR FILTRATION RATE 142 ML/MIN (>89); MAGNESIUM 2.3 MG/DL (1.5-2.5); POTASSIUM 3.4 MEQ/L (3.5-5.1); SODIUM (NA) 146 MEQ/L (136-145); TOTAL BILIRUBIN ADULT 0.4 MG/DL (0.2-1.0)
[2016-10-25] MEDS ORDERED: PHARMACY ORDERED LAB XX ONE (08:45)
[2016-10-25] MEDS: POLYETHYLENE GLYCOL 17 GM PKG PO SCH ×2 (09:00→19:57)
[2016-10-25] MEDS: MAGNESIUM HYDROXIDE SUSP 30 ML CUP PO SCH (09:00)
[2016-10-25] MEDS: SODIUM CHLORIDE 0.9% FLUSH 5 ML FLUSH IVF SCH ×2 (09:00→19:57)
[2016-10-25] MEDS: LACTULOSE SYRUP 20 GM/30 ML CUP PO SCH ×3 (09:00→18:00)
[2016-10-25] MEDS: LEVETIRACETAM IV SCH ×4 (09:34→19:56)
[2016-10-25] MEDS: CEFTRIAXONE IV SCH ×4 (09:34→19:55)
[2016-10-25] MEDS: WATE IV SCH ×4 (09:34→19:56)
[2016-10-25] MEDS: DEXTROSE 5% IV SCH ×12 (09:34→19:56)
[2016-10-25] MEDS: WATER IV SCH ×12 (09:34→19:58)
[2016-10-25] MEDS: VANCOMYCIN IV SCH ×2 (09:35)
[2016-10-25] MEDS: FOLIC ACID 1 MG TAB PO SCH (09:36)
[2016-10-25] MEDS: MULTIVITAMIN TAB PO SCH (09:36)
[2016-10-25] MEDS: DOCUSATE SODIUM 100 MG CAP PO SCH ×2 (09:36→19:57)
[2016-10-25] MEDS: PANTOPRAZOLE SODIUM 40 MG VIAL IVP SCH (09:36)
[2016-10-25] MEDS: SENNOSIDES SYRUP 8.8 MG/5 ML CUP PO/NG SCH ×2 (09:37→19:57)
[2016-10-25] MEDS: FOSPHENYTOIN IV SCH ×4 (09:38→19:58)
[2016-10-25] MEDS: DEXTROSE IV SCH ×4 (09:38→19:58)
[2016-10-25] MEDS: CHLORHEXIDINE 0.12% (ORAL KIT) 15 ML CUP MT SCH ×2 (09:39→19:56)
--- NOTE | 2016-10-25 10:39 | PD.CONS ---
Consult Service Palliative Care Consult Requested By Dr. Pittman . Primary Care Physician Non-Staff . Reason for Consultation a. To assist with evaluation and management of symptoms including: encephalopathy; dyspnea; pain; constipation b. To assist medical decision maker(s) with: better understanding of current medical conditions; weighing benefits/burdens of medical treatment options; making medical treatment decisions. . HPI History of Present Illness This is the first [facility] admission for this 56-year-old male who was transported to the emergency department via paramedics as a "trauma alert" on 10/11/16 after suffering a fall and becoming unresponsive. 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 A fellow worker heard the "crash" and was in the room within 3 seconds. The patient was unresponsive, appeared "blue" and was not breathing. He had blood an vomitus in his mouth. His friend cleared the blood and vomit and performed mouth-to- mouth resuscitation. Paramedics arrived within minutes. When paramedics found him his initial GCS was 6 which rapidly improved to an 11. Initial evaluation by the emergency department physician revealed the following : Patient was well-developed and well-nourished with decreased level of consciousness. Skin, eyes, ENT, cardiovascular, respiratory, abdominal, and musculoskeletal exams are unremarkable. The patient was awake but not following commands on initial evaluation by the ED physician. Initial diagnostic testing revealed the following: * CBC showed WBC 9.4; hemoglobin 15.4; platelet count 221 * Coagulation profile showed PT 10.9; INR 1.0; PTT 25.4 * Bedside electrolyte testing showed sodium 136; potassium 4.1; chloride 97; BUN 6; creatinine 1.0; glucose 111 * CT of the brain showed a large occipital skull fracture. There was also a subdural/subarachnoid hemorrhage as well as parenchymal contusions. Subdural blood measured 6 mm at its largest dimension. * CT of the cervical spine showed no fracture * CT of the chest was negative for acute traumatic injury. No pneumothorax. * abdominal/pelvic CT was unremarkable * Pelvis x-ray was negative for fracture * Chest x-ray was unremarkable Critical care medicine was consulted and upon arrival in the intensive care unit the patient was on O2 via nasal cannula and in addition, was awake, alert, following commands, and moving all 4 extremities. He could not hear and had some speech difficulty. Neurosurgery was consulted and initially opted to monitor conservatively. On the night of admission the patient developed progressively worsening agitation. It was not controlled with Precedex. He was started on lorazepam. Further history from the indicated the patient would normally drink approximately 12 - 15 beers per day and had a tendency to develop withdrawal symptoms very quickly. The patient subsequently was intubated and placed on mechanical ventilation. Follow-up imaging showed worsening bilateral subdural and subarachnoid hemorrhages. There was a 9 mm leftward midline shift. He was started on 3% saline. He was sedated with Versed/fentanyl/propofol. On the patient underwent right frontal pebbles hole with placement of a ventriculostomy catheter for pressure monitoring. The EEG of 10/19/16 revealed seizure activity in spite of being on levetiracetam. Neurology was consulted. The patient required low dose norepinephrine to maintain cerebral perfusion pressure. Intracranial pressure remained problematic and elevated in spite of sedation and hyperosmolar therapy. The patient's imaging picture continued to worsen. On 10/18/16 he underwent right frontal temporal parietal decompressive craniectomy with evacuation of the subdural hematoma. With no evidence of meaningful recovery, it was becoming apparent that ongoing aggressive care would require tracheostomy and gastrostomy tube placement. This was initially scheduled for 10/23/16 but was postponed due to elevated ICPs into the 30s. Critical care also recommended that the family speak with palliative care before making the decision on tracheostomy and gastrostomy tube. Neurosurgery evaluation on 10/24/16 found minimal eye opening to deep pain and mild flexion of the upper extremities to deep pain when sedation was off. Otherwise there is no improvement in neurologic function off sedation. The hospitalization course otherwise was remarkable for Haemophilus influenza pneumonia with x-ray showing persistent bibasilar consolidation/effusion. . Function/Cognitive Trajectory Mr. 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 There had been no reported decline in his overall functional status in the months leading up to his hospitalization. He had complained of abdominal pain for years along with intermittent rectal bleeding but had never worked it up -- per his fiancee, he did not have insurance, did not have adequate funds, and was frightened of the results as his biological father and brother had stomach cancer. In the weeks leading up to his hospitalization he had significant swelling of the right lower extremity from foot to knee. He would normally have pain in the right ankle which had undergone surgery with pinning. However, this extensive swelling was new. In addition to the abdominal pain, patient also had some generalized arthritis attributed to his physical work as a maintenance painter apprentice. He would use BC Powder 3-4 times a day and on occasion , some hydrocodone prescribed by his PMD in [place]. Review of Systems Constitutional: COMPLAINS OF: Dizziness (IMproved when he started BP meds. ), DENIES: Fatigue, Weight gain, Weight loss, Pain, Generalized weakness Endocrine: DENIES: Heat/cold intolerance, Polydipsia, Polyuria, Polyphagia Eyes: COMPLAINS OF: Vision loss (Uses reading glasses), DENIES: Diplopia, Eye pain, Double Vision Ears, nose, mouth, throat: COMPLAINS OF: Sinus Pain, DENIES: Tinnitus, Hearing loss, Nasal discharge, Throat pain, Hoarseness, Epistaxis Respiratory: COMPLAINS OF: Cough (Had morning cough with phlegm clearing which he attributed to smoking. ), Sputum production, DENIES: Apneas, Snoring, Wheezing, Hemoptysis Cardiovascular: COMPLAINS OF: Lower Extremity Edema (Had at least 2 weeks of RLE swelling leading up to his fall. ), DENIES: Chest pain, Palpitations, Syncope, Dyspnea on Exertion Gastrointestinal: COMPLAINS OF: Abdominal pain (had a history of stomach cramping), Bloody stools, DENIES: Black stools, Constipation, Diarrhea, Nausea , Vomiting, Vomiting blood Genitourinary: DENIES: Urinary frequency, Urinary incontinence, Urgency, Hematuria, Dysuria, Nocturia, Decreased stream Musculoskeletal: COMPLAINS OF: Joint pain, Muscle aches, Back pain, DENIES: Neck pain Hematologic/Lymphatics: DENIES: Lymphadenopathy, Prolonged bleed w/ proced Immunologic/Allergic: DENIES: Eczema Neurologic: COMPLAINS OF: Seizures, Poor Balance, DENIES: Abnormal gait, Headache, Paresthesias Psychiatric: COMPLAINS OF: Anxiety, Depression, DENIES: Hallucinations Past Family Social History Coded Allergies: UNOBTAINABLE (Unverified , 10/11/16) Past Medical History * Hypertension * Several year history of abdominal pain with intermittent rectal bleeding ( strong family history of stomach cancer). Refused w/u due to lack of insurance and inadequate funds. * Osteoarthritis * Carpal tunnel syndrome . Past Surgical History * tonsillectomy * Right ankle surgery -- hardware in place. . Reported Medications Pre-hospital medications: * Unknown anti-hypertensive * OTC BC powders 3-4X/day * Hydrocodone on occasion for arthritis aches/pains . Current Medications Medications (Trade) Dose Ordered Sig/Jony Route Start Time Stop Time Status Last Admin Miscellaneous Information 1 [id number] XX 10/11/16 13:00 10/11/16 13:00 (Chlorhexidine 2% Cloth) Taper DAILY@04 TOP 10/12/16 04:00 10/08/17 03:59 10/25/16 04:00 (Chlorhexidine 2% Cloth) 3 pack UNSCH PRN TOP 10/11/16 13:00 (Apresoline Inj) 10 mg Q2H PRN IV PUSH 10/11/16 13:30 10/24/16 10:37 (Peridex 0.12% Liq) 15 ml BID@08,20 MT 10/12/16 08:00 10/25/16 09:39 (Milk Of Magnesia Liq) 30 ml DAILY PO 10/12/16 10:00 10/23/16 08:33 (Tylenol Supp) 650 mg Q4H PRN AR 10/15/16 12:15 Info 1 UNSCH XX 10/17/16 11:00 (NS Flush) 2 ml UNSCH PRN IVF 10/18/16 11:45 (NS Flush) 2 ml BID IVF 10/18/16 21:00 10/24/16 08:09 (Dulcolax Supp) 10 mg DAILY PRN AR 10/18/16 11:45 10/18/16 14:36 (Colace) 100 mg BID PO 10/18/16 21:00 10/25/16 09:36 (Protonix Inj) 40 mg DAILY IVP 10/19/16 09:00 10/25/16 09:36 (Zofran Inj) 4 mg Q6H PRN IV 10/18/16 11:45 Calcium Gluconate 1 gm 1 gm UNSCH PRN IV 10/18/16 11:45 Potassium Chloride 100 ml @ 50 mls/hr UNSCH PRN IV 10/18/16 11:45 10/25/16 09:35 (Magnesium Sulfate Inj/NS Inj) 108 ml @ 108 mls/hr UNSCH PRN IV 10/18/16 11:45 Acetaminophen 650 mg 650 mg Q4H PRN PO 10/18/16 11:45 10/22/16 14:10 Pharmacy Profile Note 0 ml @ 0 mls/hr UNSCH OTHER 10/19/16 07:45 (Diprivan 1000 Mg/100ml Inj) 100 ml @ 0 mls/hr TITRATE IV 10/19/16 10:00 10/22/16 12:45 (Lactulose Liq) 30 ml TID PO 10/21/16 13:00 10/23/16 17:11 (Miralax) 17 gm BID PO 10/21/16 11:00 10/24/16 08:09 (Inderal) 20 mg Q6HR PO 10/22/16 18:00 10/25/16 05:41 (Trandate Inj) 20 mg Q1H PRN IV PUSH 10/22/16 16:45 10/24/16 17:25 Clonidine 0.3 mg 0.3 mg Q8HR PO 10/22/16 16:42 10/25/16 05:41 Fosphenytoin Sodium 200 mgpe/ Dextrose 54 ml @ 216 mls/hr Q12HR IV 10/22/16 21:00 10/25/16 09:38 Levetriacetam 2000 mg/Dextrose 170 ml @ 420 mls/hr Q12HR IV 10/22/16 21:00 10/25/16 09:34 Nicardipine HCl 50 mg/Dextrose 270 ml @ 0 mls/hr TITRATE IV 10/22/16 20:17 10/22/16 21:07 Thiamine HCl 100 mg/Dextrose 101 ml @ 100 mls/hr Q24H IV 10/23/16 20:00 10/24/16 21:38 Vancomycin HCl 1750 mg/Dextrose 517.5 ml @ 257.5 mls/ hr Q12H IV 10/22/16 21:00 10/25/16 09:35 (Rocephin Inj/ D5W 100 ml Inj) 100 ml @ 200 mls/hr Q12H IV 10/23/16 08:00 10/25/16 09:34 (Folate) 1 mg DAILY PO 10/25/16 09:00 10/25/16 09:36 (Theragran) 1 tab DAILY PO 10/25/16 09:00 10/25/16 09:36 (Senna Liq) 8.8 mg BID PO/NG 10/24/16 21:00 10/25/16 09:37 (Roxicodone Intensol Liq) 5 mg Q4H PRN PO 10/24/16 12:30 (Roxicodone Intensol Liq) 10 mg Q4H PRN PO 10/24/16 12:30 10/24/16 12:52 (Lasix Inj) 80 mg ONCE ONCE IV PUSH 10/25/16 10:00 10/25/16 10:01 UNV (Lasix Inj) 40 mg DAILY IV PUSH 10/26/16 09:00 UNV (K-Lyte Cl Eff) 50 meq ONCE ONCE PO 10/25/16 10:00 10/25/16 10:01 UNV . Family History Patient is adopted so family history is scant. Biological mother in childbirth. Biological father and biological brother had stomach cancer. . Substance Use Tobacco: Active smoker at time of fall. At least 2 ppd since teen years. Alcohol: reports the patient was actively drinking approximately 12-15 beers per day. History of withdrawal symptoms developing rapidly upon cessation of alcohol intake. Prescription med abuse: No known hx of abuse. Would occasionally use prescribed hydrocodone for arthritic type pain. Illicits: No known use of illicits . Psychosocial History Mr Nixon was born in [place] to [place] citizens. His mother in childbirth and his biological father, with already 5 children to care for, put Mr Nixon up for adoption. His adoptive parents are both . One adoptive sister is . An adoptive brother lives in [place] and an adoptive sister lives in [place]. He is not in close touch with the biological family in [place]. Patient has a high school education. 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 Never . No kids. Has been with his fiancee -- Brandy Workman -- for 8 years. They were scheduled to on 01/16/17. . Spiritual/Cultural Factors Voodoo and spirituality have not been an important part of his life. He was raised as a [employer]. . Living Will: Never completed Health Care Surrogate: Never completed Durable Power of Email Campaign Specialist: Never completed Date completed: Advanced directives were never completed. . Health Care Surrogate(s): There is no written designation of a health care surrogate. . Documented care wishes: No written documentation of health care preferences/goals/wishes . Today's verbally stated goals: Patient is unable to verbally express his health care wishes/goals/preferences. Uncertain if he is going to regain capacity to do so. . Family/friends goals: Family and friends are somewhat ambivalent as they describe their understanding of the patient's goals and preferences under the circumstances. 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 Ethical and Legal Issues Patient is incapacitated to make his own health care decisions. It is uncertain if/when he will regain capacity to make those decisions. . Physical Exam Vital Signs Date Time Temp Pulse Resp B/P Pulse Ox O2 Delivery O2 Flow Rate FiO2 10/25/16 09:46 100 50 10/25/16 08:20 100 50 10/25/16 08:00 60 10/25/16 08:00 98.9 85 27 140/66 99 10/25/16 06:00 76 10/25/16 04:02 97 50 10/25/16 04:00 99.3 92 25 145/65 95 10/25/16 04:00 87 10/25/16 04:00 60 10/25/16 02:00 87 10/25/16 01:02 97 50 10/25/16 00:00 87 10/25/16 00:00 60 10/25/16 00:00 98.5 87 26 130/58 96 10/24/16 22:00 88 10/24/16 20:00 50 10/24/16 20:00 99.6 88 26 150/65 97 10/24/16 20:00 85 10/24/16 19:26 99 50 10/24/16 18:00 145/63 10/24/16 17:37 96 50 10/24/16 16:00 84 10/24/16 16:00 99.3 84 25 153/63 98 10/24/16 12:00 50 10/24/16 12:00 97.7 83 24 138/63 92 10/24/16 12:00 83 10/24/16 10:28 99 40 . 10/24/16 10/25/16 19:00 07:00 Intake Total 1864 ml 2117 ml Output Total 1000.0 ml 1100.0 ml Balance 864.0 ml 1017.0 ml IV Total 1069 ml 1170 ml Tube Feeding 495 ml 947 ml Other 300 ml Output Urine Total 1000 ml 1100 ml Gastric Drainage Total 0 ml Tube Feeding Residual Discard 0 ml 0 ml # Bowel Movements 0 1 . Exam CONSTITUTIONAL/GENERAL: This is an adequately nourished patient, intubated, mechanically ventilated, minimally responsive, in a surgical intensive care unit bed. TUBES/LINES/DRAINS: Orotracheal tube; orogastric tube; Gann catheter; SCDs; PODUS boots; right radial arterial line; right subclavian central line SKIN: No jaundice, rashes, or lesions. There is a healing right craniotomy surgical wound. Skin temperature appropriate. Not diaphoretic. HEAD: Healing right craniotomy surgical wound. EYES: Pupils equal and round and reactive. Could not assess extraocular movements. No scleral icterus. No injection or drainage. Fundi not examined. ENT: Unable to assess hearing. Nose without bleeding or purulent drainage. Throat without visible erythema, exudates, masses, or lesions though difficult to evaluate due to intubations. NECK: Trachea midline. Obesedifficult to evaluate. No palpable thyroid enlargement or nodularity. CARDIOVASCULAR: Regular rate and rhythm without murmurs, gallops, or rubs. No JVD. Peripheral pulses symmetric. RESPIRATORY/CHEST: Symmetric, unlabored respirations. Coarse breath sounds equal bilaterally. No wheezes. GASTROINTESTINAL: Abdomen slightly firm and distended.. No hepato-splenomegaly, or palpable masses. No guarding. Bowel sounds present. GENITOURINARY: Without palpable bladder distension. Gann catheter in place. Penile and scrotal edema are present. MUSCULOSKELETAL: Extremities without clubbing, cyanosis. 2-3+ edema in all extremities. No joint tenderness or effusion noted. No calf tenderness. No mottling or clubbing. LYMPHATICS: No palpable cervical or supraclavicular adenopathy. NEUROLOGICAL: Patient does not awaken to voice or exam. Withdraws to noxious stimuli in lower extremities right greater than left. No spontaneous movements noted. Unable to follow commands. PSYCHIATRIC: Unable to assess due to level of responsiveness. . Diagnostic Tests Laboratory Laboratory Tests Test 10/23/16 10/24/16 10/24/16 10/25/16 04:04 04:00 09:50 05:03 White Blood Count 27.3 TH/MM3 21.1 TH/MM3 (4.0-11.0) (4.0-11.0) Red Blood Count 3.26 MIL/MM3 2.99 MIL/MM3 (4.50-5.90) (4.50-5.90) Hemoglobin 10.5 GM/DL 9.6 GM/DL (13.0-17.0) (13.0-17.0) Hematocrit 32.3 % 29.4 % (39.0-51.0) (39.0-51.0) Mean Corpuscular Volume 99.3 FL 98.3 FL (80.0-100.0) (80.0-100.0) Mean Corpuscular Hemoglobin 32.3 PG 32.2 PG (27.0-34.0) (27.0-34.0) Mean Corpuscular Hemoglobin 32.5 % 32.7 % Concent (32.0-36.0) (32.0-36.0) Red Cell Distribution Width 14.9 % 14.4 % (11.6-17.2) (11.6-17.2) Platelet Count 307 TH/MM3 273 TH/MM3 (150-450) (150-450) Mean Platelet Volume 8.8 FL 8.2 FL (7.0-11.0) (7.0-11.0) Neutrophils (%) (Auto) 83.1 % 84.9 % (16.0-70.0) (16.0-70.0) Lymphocytes (%) (Auto) 6.5 % 5.9 % (9.0-44.0) (9.0-44.0) Monocytes (%) (Auto) 8.9 % (0.0-8.0) 7.9 % (0.0-8.0) Eosinophils (%) (Auto) 1.0 % (0.0-4.0) 0.9 % (0.0-4.0) Basophils (%) (Auto) 0.5 % (0.0-2.0) 0.4 % (0.0-2.0) Neutrophils # (Auto) 22.7 TH/MM3 17.9 TH/MM3 (1.8-7.7) (1.8-7.7) Lymphocytes # (Auto) 1.8 TH/MM3 1.2 TH/MM3 (1.0-4.8) (1.0-4.8) Monocytes # (Auto) 2.4 TH/MM3 1.7 TH/MM3 (0-0.9) (0-0.9) Eosinophils # (Auto) 0.3 TH/MM3 0.2 TH/MM3 (0-0.4) (0-0.4) Basophils # (Auto) 0.1 TH/MM3 0.1 TH/MM3 (0-0.2) (0-0.2) CBC Comment AUTO DIFF AUTO DIFF Differential Total Cells 100 100 Counted Neutrophils % (Manual) 84 % (16-70) 86 % (16-70) Band Neutrophils % 4 % (0-6) 4 % (0-6) Lymphocytes % 4 % (9-44) 3 % (9-44) Monocytes % 5 % (0-8) 7 % (0-8) Eosinophils % 2 % (0-4) Neutrophils # (Manual) 24.3 TH/MM3 19.0 TH/MM3 (1.8-7.7) (1.8-7.7) Myelocytes 1 % (0-0) Differential Comment FINAL DIFF FINAL DIFF MANUAL MANUAL Platelet Estimate NORMAL NORMAL (NORMAL) (NORMAL) Platelet Morphology Comment NORMAL NORMAL (NORMAL) (NORMAL) Red Cell Morphology Comment NORMAL NORMAL (NORMAL) (NORMAL) Sodium Level 153 MEQ/L 144 MEQ/L (136-145) (136-145) Potassium Level 4.1 MEQ/L 4.2 MEQ/L (3.5-5.1) (3.5-5.1) Chloride Level 120 MEQ/L 109 MEQ/L (98-107) (98-107) Carbon Dioxide Level 25.9 MEQ/L 27.5 MEQ/L (21.0-32.0) (21.0-32.0) Anion Gap 7 MEQ/L (5-15) 8 MEQ/L (5-15) Blood Urea Nitrogen 22 MG/DL (7-18) 26 MG/DL (7-18) Creatinine 0.65 MG/DL 0.68 MG/DL (0.60-1.30) (0.60-1.30) Estimat Glomerular Filtration 127 ML/MIN 120 ML/MIN Rate (>89) (>89) Random Glucose 78 MG/DL 146 MG/DL (74-106) (74-106) Calcium Level 8.6 MG/DL 8.5 MG/DL (8.5-10.1) (8.5-10.1) Phosphorus Level 3.4 MG/DL 3.1 MG/DL (2.5-4.9) (2.5-4.9) Magnesium Level 2.8 MG/DL 2.4 MG/DL (1.5-2.5) (1.5-2.5) Total Bilirubin 0.4 MG/DL 0.3 MG/DL (0.2-1.0) (0.2-1.0) Aspartate Amino Transf 36 U/L (15-37) 27 U/L (15-37) (AST/SGOT) Alanine Aminotransferase 56 U/L (12-78) 42 U/L (12-78) (ALT/SGPT) Alkaline Phosphatase 148 U/L 144 U/L (45-117) (45-117) Total Protein 6.7 GM/DL 6.2 GM/DL (6.4-8.2) (6.4-8.2) Albumin 1.9 GM/DL 1.7 GM/DL (3.4-5.0) (3.4-5.0) Urine Color YELLOW (YELLW/STRAW) Urine Turbidity HAZY (CLEAR) Urine pH 6.0 (5.0-8.5) Urine Specific [place] 1.040 (1.002-1.035) Urine Protein 100 mg/dL (NEG-TRACE) Urine Glucose (UA) NEG mg/dL (NEG) Urine Ketones NEG mg/dL (NEG) Urine Occult Blood SMALL (NEG) Urine Nitrite NEG (NEG) Urine Bilirubin NEG (NEG) Urine Urobilinogen LESS THAN 2.0 MG/DL (LESS THAN 2.0) Urine Leukocyte Esterase NEG (NEG) Urine RBC 9 /hpf (0-3) Urine WBC 2 /hpf (0-5) Urine Bacteria OCC /hpf (NONE) Urine Mucus FEW /lpf (OCC) Microscopic Urinalysis Comment CATH-CULTURE IND Blood Gas Puncture Site ART LINE Blood Gas Patient Temperature 98.6 Blood Gas HCO3 27 mmol/L (22-26) Blood Gas Base Excess 3.4 mmol/L (-2-2) Blood Gas Oxygen Saturation 93 % (90-100) Arterial Blood pH 7.47 (7.380-7.420) Arterial Blood Partial 38 mmHg (38-42) Pressure CO2 Arterial Blood Partial 75 mmHg Pressure O2 (61-120) Arterial Blood Oxygen Content 13.6 Vol % (12.0-20.0) Arterial Blood 1.1 % (0-4) Carboxyhemoglobin Arterial Blood Methemoglobin 0.9 % (0-2) Blood Gas Hemoglobin 10.4 G/DL (12.0-16.0) Oxygen Delivery Device VENTILATOR Blood Gas Ventilator Setting PRVC/AC Blood Gas Inspired Oxygen 50 % Test 10/25/16 06:20 White Blood Count 12.8 TH/MM3 (4.0-11.0) Red Blood Count 2.79 MIL/MM3 (4.50-5.90) Hemoglobin 9.1 GM/DL (13.0-17.0) Hematocrit 26.9 % (39.0-51.0) Mean Corpuscular Volume 96.2 FL (80.0-100.0) Mean Corpuscular Hemoglobin 32.5 PG (27.0-34.0) Mean Corpuscular Hemoglobin 33.8 % Concent (32.0-36.0) Red Cell Distribution Width 14.1 % (11.6-17.2) Platelet Count 280 TH/MM3 (150-450) Mean Platelet Volume 8.5 FL (7.0-11.0) Neutrophils (%) (Auto) 79.3 % (16.0-70.0) Lymphocytes (%) (Auto) 8.0 % (9.0-44.0) Monocytes (%) (Auto) 10.5 % (0.0-8.0) Eosinophils (%) (Auto) 1.6 % (0.0-4.0) Basophils (%) (Auto) 0.6 % (0.0-2.0) Neutrophils # (Auto) 10.1 TH/MM3 (1.8-7.7) Lymphocytes # (Auto) 1.0 TH/MM3 (1.0-4.8) Monocytes # (Auto) 1.3 TH/MM3 (0-0.9) Eosinophils # (Auto) 0.2 TH/MM3 (0-0.4) Basophils # (Auto) 0.1 TH/MM3 (0-0.2) CBC Comment DIFF FINAL Differential Comment Sodium Level 146 MEQ/L (136-145) Potassium Level 3.4 MEQ/L (3.5-5.1) Chloride Level 111 MEQ/L (98-107) Carbon Dioxide Level 30.4 MEQ/L (21.0-32.0) Anion Gap 5 MEQ/L (5-15) Blood Urea Nitrogen 24 MG/DL (7-18) Creatinine 0.59 MG/DL (0.60-1.30) Estimat Glomerular Filtration 142 ML/MIN Rate (>89) Random Glucose 118 MG/DL (74-106) Calcium Level 8.0 MG/DL (8.5-10.1) Phosphorus Level 2.5 MG/DL (2.5-4.9) Magnesium Level 2.3 MG/DL (1.5-2.5) Total Bilirubin 0.4 MG/DL (0.2-1.0) Aspartate Amino Transf 47 U/L (15-37) (AST/SGOT) Alanine Aminotransferase 43 U/L (12-78) (ALT/SGPT) Alkaline Phosphatase 170 U/L (45-117) Total Protein 5.8 GM/DL (6.4-8.2) Albumin 1.4 GM/DL (3.4-5.0) Phenytoin (Dilantin) Level 5.4 MCG/ML (10.0-20.0) . Result Diagram: 10/25/1661910/25/1620 Microbiology Microbiology Date/Time Procedure Status Source Growth 10/24/16 09:46 Influenza Types A,B Antigen (JADE) - Final Complete Nasal Aspirate NEGATIVE FOR FLU A AND B ANTIGEN.... 10/24/16 09:46 Gram Stain - Final Resulted Sputum Endotracheal 10/24/16 09:46 Sputum Culture Resulted Sputum Endotracheal Pending 10/24/16 09:50 Legionella Antigen - Final Complete Urine Catheterized Urine PRESUMPTIVE NEGATIVE FOR LEGIONELLA P... 10/24/16 09:50 Streptococcus pneumoniae Antigen (M - Final Complete Urine Catheterized Urine PRESUMPTIVE NEGATIVE FOR STREPTOCOCCU... 10/24/16 09:50 Urine Culture Received Urine Catheterized Urine Pending 10/24/16 12:01 Aerobic Blood Culture Received Blood Peripheral Pending 10/24/16 12:01 Anaerobic Blood Culture Received Blood Peripheral Pending 10/24/16 12:10 Aerobic Blood Culture Received Blood Peripheral Pending 10/24/16 12:10 Anaerobic Blood Culture Received Blood Peripheral Pending . Imaging Last Impressions Chest X-Ray 10/25/16 0600 Signed Impressions: Service Date/Time: Tuesday, October 25, 2016 03:18 - CONCLUSION: 1. Persistent bibasilar consolidation/effusion. This may be slightly worse when compared to the prior. 2. Stable position of life support tubes. Mundo Rosa MD Head CT 10/23/16 0000 Signed Impressions: Service Date/Time: Sunday, October 23, 2016 11:21 - CONCLUSION: 1. Examination quality is degraded by motion artifact. There is decreased midline shift, currently measuring 3 mm compared to 6 mm on the prior study. 2. There are persistent hemorrhagic contusions in the right frontal lobe but they are less well-visualized today either related to interval improvement or related to motion artifact. Red Arenas MD Chest CT 10/23/16 0000 Signed Impressions: Service Date/Time: Sunday, October 23, 2016 11:24 - CONCLUSION: 1. Airspace consolidation within the left upper lobe. This could represent an infectious process. 2. Small bilateral pleural effusions with associated compressive atelectasis in the lower lobes. Red Arenas MD Abdomen/Pelvis CT 10/23/16 0000 Signed Impressions: Service Date/Time: Sunday, October 23, 2016 11:27 - CONCLUSION: 1. No acute finding is identified within the abdomen or pelvis. 2. Anasarca. 3. Stable 7 mm nodule on the left adrenal gland. Small size favors a benign process but is incompletely characterized on this examination. Red Arenas MD Neck CTA 10/12/16 0000 Signed Impressions: Service Date/Time: Wednesday, October 12, 2016 09:27 - CONCLUSION: Mild atherosclerotic changes in the proximal portions of both internal carotid arteries but no significant stenosis. Dez Petersen MD Head CTA 10/12/16 0000 Signed Impressions: Service Date/Time: Wednesday, October 12, 2016 09:27 - CONCLUSION: No evidence of acute vascular injury Red Hoffman MD Pelvis X-Ray 10/11/16 1213 Signed Impressions: Service Date/Time: Tuesday, October 11, 2016 12:02 - CONCLUSION: Satisfactory trauma pelvis appearance. Red Hoffman MD Cervical Spine CT 10/11/16 1213 Signed Impressions: Service Date/Time: Tuesday, October 11, 2016 12:19 - CONCLUSION: Occipital skull fracture. No evidence of acute traumatic injury in the cervical spine Red Hoffman MD . Procedures * Pebbles hole with ICP monitor placed * Right craniectomy * Art line placement * Intubation/mechanical ventilation * Central line placement. . Patient/Family Conference Present at Family Conference: * Brandy Workman (fiancee) * Amanda (sister) * Patricio Oleary (close personal friend and fellow worker) . Family Conference Time (mins): 55 Family Conference Location: Consult Room Issues Discussed: * Palliative care role, purpose, approach * Additional medical, psychosocial, and spiritual history * Patients general health, functional status, and cognitive changes in the months leading up to the current hospitalization * Family understanding of the current medical problems * Family understanding of prognosis * Patients goals of care as best understood from prior conversations and/or values * Current medical treatment options and benefits/burdens of those options * Likely scenarios comparing ongoing aggressive care with a transition to comfort measures only * Questions answered to the best of my ability * Palliative care contact information provided . Assessment and Plan Disease Oriented Problem List: (1) Traumatic brain injury (2) SAH (subarachnoid hemorrhage) (3) Subdural hemorrhage following injury (4) Fracture of occipital bone of skull with loss of consciousness (5) Encephalopathy acute (6) Alcohol dependence Comment: Long history of 12-15 drinks per day. . (7) Major neurocognitive disorder as late effect of traumatic brain injury with behavioral disturbance (8) Seizure (9) Pneumonia Comment: Probable aspiration. Blood in vomitus were in airway immediately after fall. . (10) Hepatitis C antibody positive in blood (11) Rectal bleeding Comment: Has had years of abdominal pain with intermittent rectal bleeding. Has avoided recommended work-up due to lack on insurance, lack of funds, and fear of results (per shasta). . Symptom Scale: (1) Pain 0-10 Scale: Unable to quantify Comment: Patient had history of several pain syndromes. He complained of abdominal pain for years with occasional rectal bleeding. He also complained of right ankle pain where he had surgery and achiness in multiple joints. He would use BC powders several times a day and occasionally hydrocodone. Other current sources of pain might include prolonged bedbound status, post op wound/ head pain, discomfort from trach/gann/OG/vascular access lines. Orders are in place for enteral oxycodone at this time. These appear to be adequate. No further recommendations at this time. . (2) Dyspnea Comment: Patient with probable aspiration pneumonia. Vomitus and blood were in mouth at time of fall. Sputum culture grew out H. flu. Patient also has anasarca and may have a component of pulmonary edema. Dyspnea appears adequately controlled with vent support, antibiotics, and diuretics. Patient had at least a 2 week history of significant right leg swelling from ankle to knee prior to collapse/fall. Could there have been a DVT and PE? May want to consider checking for DVT/PE. . (3) Encephalopathy 0-10 Scale: Unable to quantify Comment: This has been multi-factorial and has involved the brain injury, alcohol withdrawal, infection, seizure, etc. Current encephalopathy now mostly due to brain injury. Encephalopathy persists off sedation. Will continue to support patient as brain is given a chance to heal. No further recommendations at this time. . (4) Anasarca (5) Constipation Pertinent Non-Medical Issues Psychosocial: Social support consists of careyancee, brother, sister and friend - - Patricio Oleary. Spiritual: [employer] background. Voodoo and spirituality have not played an important role in his life. Shasta appreciates jet wiper visits. Legal: No advance directives. Without a designated health care surrogate, decision-making appears to fall to the majority of his siblings. Ethical issues impacting care: Patient is incapacitated to make his own health care decisions. It is unclear if/when he will regain capacity. . Important Contacts * Brandy Workman (spouse) [phone] * Amanda (sister) * Perez Schroeder" (brother) [phone] . 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 It is unclear is he had some sort of event causing the fall (he had vomitus and blood in his airway at time of fall) or merely fell. His injuries include occipital bone fracture, SDH, SAH. Complications include EtOH withdrawal, aspiration pneumonia. He has had high ICPs and ultimately underwent right sided craniectomy for decompression. He has had seizure activity. There has been little evidence so far of meaningful neurological recovery. Neurosurgery feels there continues to be a reasonable chance of meaningful neurologic recovery (though it will take a lot of time) and is recommending ongoing aggressive care. . Code Status: Full Code Plan == Code Status: FULL CODE == Decision making: Mr. Nixon is incapacitated to make his own health care decisions and it is unclear if/when he will regain capacity. Patient is not legally , has no children, and the parents who adopted him are . Under [place], decision making would fall to the patient's adoptive siblings -- Amanda and Demarco. The patient's fiancee -- Brandy Workman -- has not decision making authority, but the siblings are including her in the conversations. To make obtaining consents easier, I am trying to contact Demarco to see if he would concede his authority to Amanda allowing us to only need one signature on documents. == Goals of medical treatment: Dr. Cruz believes that patient still has a chance for meaningful recovery. Family feels patient would want to continue fighting then. They support full code status and desire trach/PEG. They will reconsider in the future if patient has additional setbacks or does not show signs of improvement. == Encephalopathy: This has been multi-factorial and has involved the brain injury, alcohol withdrawal, infection, seizure, etc. Current encephalopathy now mostly due to brain injury. Encephalopathy persists off sedation. Will continue to support patient as brain is given a chance to heal. No further recommendations at this time. == Pain: Patient had history of several pain syndromes. He complained of abdominal pain for years with occasional rectal bleeding. He also complained of right ankle pain where he had surgery and achiness in multiple joints. He would use BC powders several times a day and occasionally hydrocodone. Other current sources of pain might include prolonged bedbound status, post op wound/ head pain, discomfort from trach/gann/OG/vascular access lines. Orders are in place for enteral oxycodone at this time. These appear to be adequate. No further recommendations at this time. == Dyspnea: Patient with probable aspiration pneumonia. Vomitus and blood were in mouth at time of fall. Sputum culture grew out H. flu. Patient also has anasarca and may have a component of pulmonary edema. Dyspnea appears adequately controlled with vent support, antibiotics, and diuretics. Patient had at least a 2 week history of significant right leg swelling from ankle to knee prior to collapse/fall. Could there have been a DVT and PE? May want to consider checking for DVT/PE. == Constipation: Bowels now appear to be moving adequately. Now on scheduled senna. No further recommendations at this time. == Seizures: Now controlled with levitiracetam. == Hx of rectal bleeding with strong family history of GI cancer -- Bleeding may be due to EtOH abuse and frequent use of BC powders. However, probably should have GI endoscopy when stable. == Palliative care will continue to follow to assist with symptom management and to further clarify goals of medical treatment as the clinical course evolves. Time Spent Total Floor Time (mins): 90 (Total floor time included chart review; patient exam; collaboartion with neurosurgeon; and above referenced conference with family.) Face to Face Time (mins): 10 >50% Counseling/Coord of Care: Yes Thank you for the opportunity to participate in the care of Mr. Nixon. . Attestation To help prompt me to consider important information that might be impacting today's encounter and assessment, information from prior notes written by myself or my colleagues may have been "brought forward" into today's note. My signature on this note, however, is an attestation that I personally performed the exam, history, and/or decision-making noted today, and, unless otherwise indicated, the interactions with patient, family, and staff as well as the review of records all occurred today. I also attest that the listed assessment and stated plan reflect my best clinical judgment today based on the combination of historical information, prior notes, and today's exam/ interactions. When time spent is documented, it refers only to time spent today by the signer, or if indicated, combined time spent today by collaborating physician/nurse practitioner. . Hayden Oviedo MD Oct 25, 2016 10:38
[2016-10-25] MEDS ORDERED: ATROPINE SULFATE 1 MG/10 ML SYRINGE ONE (10:53)
[2016-10-25] MEDS ORDERED: EPINEPHrine HCL (1:10,000) 1 MG/10 ML SYRINGE ONE (10:53)
[2016-10-25] MEDS ORDERED: POTASSIUM CHLORIDE 25 MEQ EFFERVESCENT TAB PO ONE (11:00)
[2016-10-25] MEDS ORDERED: FUROSEMIDE 100 MG/10 ML VIAL IV PUSH ONE (11:00)
--- NOTE | 2016-10-25 11:57 | HHI.PR ---
Neuropsych Progress Notes/Response to Tx Contents of Sessions: Interests Time with Patient: 15 minutes Premorbid psychological status Premorbid Cognitive, Emotional and Behavioral Status: Deferred. 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 The patient has no known psychiatric difficulties. However, substance abuse history is significant for alcohol dependence and tobacco dependence. Behavioral Reactions of Patient and Family/Support System: Tenuous. The patients family has a limited understanding of the complexities of this patient 's brain injury, and the lifestyle barriers that prevent an optimal recovery. They are expected to have ongoing issues of adjustment given the nature of the injury, and this aspect of recovery will require ongoing monitoring. Emotional/Behavioral Status of Patient and Family/Support System: Tenuous. Pertinent issues, if appropriate to this patients clinical care, are described in detail above. Maximizing acute care outcome It is recommended that the patient be monitored for emergent behavioral impulsivity as the medical condition evolves. This patients neuropathological challenges may limit their rehabilitation potential going forward, and these challenges will require specialized therapeutic skills to maximize outcome. Additionally, the patients family is experiencing ongoing issues of adjustment given the traumatic nature of the injury, and they [will need / may benefit] from ongoing psychological assistance. Anticipated Problems Ongoing areas of concern could include behavioral impulsivity, lack of insight and judgment, which is expected to improve with time and treatment, provided he moves past this stage of recovery. Presently, the patient is not following commands. His long duration alcohol dependence and tobacco dependence, which has led to global cerebral atrophy, will serve as a double barrier to his recovery from this injury. Treatment Plan This clinician will continue to follow with you throughout the course of this patients rehabilitation treatment, and I will be available to meet with the patients family/support system to facilitate their understanding and the ongoing care of their family member. The goals of neuropsychological intervention shall be both educational and supportive to the family/support system as is deemed clinically appropriate. [facility] Level: I:No response-total assistance Diagnosis: (1) Major neurocognitive disorder as late effect of traumatic brain injury with behavioral disturbance Status: Acute (2) Alcohol dependence Status: Acute Progress Note Narrative Ongoing follow-up of patient who was seen within context of daily trauma rounding. From a neurobehavioral standpoint, there is no change from prior dates. Palliative care is involved. I will continue to follow with you. Kermit Hughes PhD Oct 25, 2016 11:57 am
--- NOTE | 2016-10-25 13:18 | HHI.NSPN ---
(Viky Bernal) Note Status Status: Progress Note (Viky Bernal) Interval History Interval History 10/19: POD 1 s/p right decompressive craniectomy with evacuation of subdural hematoma. ICPs 22-23 overnight, f/u CT this am shows improved midline shift. currently well sedated. 10/20: POD 2, EEG showed seizures, on Keppra, Neurology evaluation. currently well sedated and intubated. ICPs below 20. 10/21: POD 3, well sedated, ICPs currently at 8. right flap still full and tight. 10/22: POD 4, no changes neuro checks overnight, sedation being weaned. ICPs within normal range. 10/25: ICPs within normal and stable over the weekend. Withdraws in lower extremities. No eye opening, not following commands. (Viky Bernal) Labs, Micro, & Vital Signs Results Date Time Temp Pulse Resp B/P Pulse Ox O2 Delivery O2 Flow Rate FiO2 10/25/16 12:36 100 50 10/25/16 09:46 100 50 10/25/16 08:20 100 50 10/25/16 08:00 60 10/25/16 08:00 98.9 85 27 140/66 99 10/25/16 06:00 76 10/25/16 04:02 97 50 10/25/16 04:00 99.3 92 25 145/65 95 10/25/16 04:00 87 10/25/16 04:00 60 10/25/16 02:00 87 10/25/16 01:02 97 50 10/25/16 00:00 87 10/25/16 00:00 60 10/25/16 00:00 98.5 87 26 130/58 96 10/24/16 22:00 88 10/24/16 20:00 50 10/24/16 20:00 99.6 88 26 150/65 97 10/24/16 20:00 85 10/24/16 19:26 99 50 10/24/16 18:00 145/63 10/24/16 17:37 96 50 10/24/16 16:00 84 10/24/16 16:00 99.3 84 25 153/63 98 10/25/16 07:00 Intake Total 3981 ml Output Total 2100.0 ml Balance 1881.0 ml Constitutional Vital Signs Date Time Temp Pulse Resp B/P Pulse Ox O2 Delivery O2 Flow Rate FiO2 10/25/16 12:36 100 50 10/25/16 09:46 100 50 10/25/16 08:20 100 50 10/25/16 08:00 60 10/25/16 08:00 98.9 85 27 140/66 99 10/25/16 06:00 76 10/25/16 04:02 97 50 10/25/16 04:00 99.3 92 25 145/65 95 10/25/16 04:00 87 10/25/16 04:00 60 10/25/16 02:00 87 10/25/16 01:02 97 50 10/25/16 00:00 87 10/25/16 00:00 60 10/25/16 00:00 98.5 87 26 130/58 96 10/24/16 22:00 88 10/24/16 20:00 50 10/24/16 20:00 99.6 88 26 150/65 97 10/24/16 20:00 85 10/24/16 19:26 99 50 10/24/16 18:00 145/63 10/24/16 17:37 96 50 10/24/16 16:00 84 10/24/16 16:00 99.3 84 25 153/63 98 10/25/16 07:00 Intake Total 3981 ml Output Total 2100.0 ml Balance 1881.0 ml (Viky Bernal) Review of Systems/Exam Exam Mr Nixon is intubated, no IV sedation. Not opening eyes, not following commands. Right flap is still full, slightly softer to palpate today. Surgical wound is healing well without evidence of infection. [place] monitor in place, ICP = 2 Cranial Nerves: Pupils 5 mm equal and sluggish to react b/l. Sensorimotor: not following commands for motor testing, he is withdrawing in right upper and bilateral lower extremities to local stimuli Cerebellar: cannot assess due to clinical condition (Viky Bernal) Medications Current Medications Current Medications Medications (Trade) Dose Ordered Sig/Jony Route PRN Reason Start Time Stop Time Status Last Admin Dose Admin Miscellaneous Information 1 [id number] XX 10/11/16 13:00 10/11/16 13:00 Chlorhexidine Gluconate (Chlorhexidine 2% Cloth) Taper DAILY@04 TOP 10/12/16 04:00 10/08/17 03:59 10/25/16 04:00 Chlorhexidine Gluconate (Chlorhexidine 2% Cloth) 3 pack UNSCH PRN TOP HYGIENIC CARE 10/11/16 13:00 Hydralazine HCl (Apresoline Inj) 10 mg Q2H PRN IV PUSH SBP greater than 150mm Hg 10/11/16 13:30 10/24/16 10:37 Chlorhexidine Gluconate (Peridex 0.12% Liq) 15 ml BID@08,20 MT 10/12/16 08:00 10/25/16 09:39 Magnesium Hydroxide (Milk Of Magnesia Liq) 30 ml DAILY PO 10/12/16 10:00 10/23/16 08:33 Acetaminophen (Tylenol Supp) 650 mg Q4H PRN DC FEVER 10/15/16 12:15 Info 1 UNSCH XX 10/17/16 11:00 IV Flush (NS Flush) 2 ml UNSCH PRN IVF FLUSH AFTER USING IV ACCESS 10/18/16 11:45 IV Flush (NS Flush) 2 ml BID IVF 10/18/16 21:00 10/24/16 08:09 Bisacodyl (Dulcolax Supp) 10 mg DAILY PRN DC CONSTIPATION 10/18/16 11:45 10/18/16 14:36 Docusate Sodium (Colace) 100 mg BID PO 10/18/16 21:00 10/25/16 09:36 Pantoprazole Sodium (Protonix Inj) 40 mg DAILY IVP 10/19/16 09:00 10/25/16 09:36 Ondansetron HCl (Zofran Inj) 4 mg Q6H PRN IV NAUSEA OR VOMITING 10/18/16 11:45 Calcium Gluconate 1 gm 1 gm UNSCH PRN IV SEE LABEL COMMENTS 10/18/16 11:45 Potassium Chloride 100 ml @ 50 mls/hr UNSCH PRN IV POTASSIUM LESS THAN 4 10/18/16 11:45 10/25/16 09:35 Magnesium Sulfate/ Sodium Chloride (Magnesium Sulfate Inj/NS Inj) 108 ml @ 108 mls/hr UNSCH PRN IV MAGNESIUM LESS THAN 2 10/18/16 11:45 Acetaminophen 650 mg 650 mg Q4H PRN PO TEMPERATURE > 101.5 F 10/18/16 11:45 10/22/16 14:10 Pharmacy Profile Note 0 ml @ 0 mls/hr UNSCH OTHER 10/19/16 07:45 Propofol (Diprivan 1000 Mg/100ml Inj) 100 ml @ 0 mls/hr TITRATE IV 10/19/16 10:00 10/22/16 12:45 Lactulose (Lactulose Liq) 30 ml TID PO 10/21/16 13:00 10/23/16 17:11 Polyethylene Glycol (Miralax) 17 gm BID PO 10/21/16 11:00 10/24/16 08:09 Propranolol HCl (Inderal) 20 mg Q6HR PO 10/22/16 18:00 10/25/16 11:15 Labetalol HCl (Trandate Inj) 20 mg Q1H PRN IV PUSH sbp > 140 10/22/16 16:45 10/24/16 17:25 Clonidine 0.3 mg 0.3 mg Q8HR PO 10/22/16 16:42 10/25/16 05:41 Fosphenytoin Sodium 200 mgpe/ Dextrose 54 ml @ 216 mls/hr Q12HR IV 10/22/16 21:00 10/25/16 09:38 Levetriacetam 2000 mg/Dextrose 170 ml @ 420 mls/hr Q12HR IV 10/22/16 21:00 10/25/16 09:34 Nicardipine HCl 50 mg/Dextrose 270 ml @ 0 mls/hr TITRATE IV 10/22/16 20:17 10/22/16 21:07 Thiamine HCl 100 mg/Dextrose 101 ml @ 100 mls/hr Q24H IV 10/23/16 20:00 10/24/16 21:38 Vancomycin HCl 1750 mg/Dextrose 517.5 ml @ 257.5 mls/ hr Q12H IV 10/22/16 21:00 Hold 10/25/16 09:35 Ceftriaxone Sodium/Dextrose (Rocephin Inj/ D5W 100 ml Inj) 100 ml @ 200 mls/hr Q12H IV 10/23/16 08:00 10/25/16 09:34 Folic Acid (Folate) 1 mg DAILY PO 10/25/16 09:00 10/25/16 09:36 Multivitamins (Theragran) 1 tab DAILY PO 10/25/16 09:00 10/25/16 09:36 Sennosides (Senna Liq) 8.8 mg BID PO/NG 10/24/16 21:00 10/25/16 09:37 Oxycodone HCl (Roxicodone Intensol Liq) 5 mg Q4H PRN PO pain 4-6 10/24/16 12:30 Oxycodone HCl (Roxicodone Intensol Liq) 10 mg Q4H PRN PO pain 7-10 10/24/16 12:30 10/24/16 12:52 Furosemide (Lasix Inj) 40 mg DAILY IV PUSH 10/26/16 09:00 (Viky Bernal) Medical Decision Making MDM Remarks 56 y/o male s/p right decompressive craniectomy with evacuation of SDH, placement of ICP monitor, postop CT Brain with improved midline shift, normal and stable ICPs (Viky Bernal) Plan Plan Remarks discontinue ICP monitor, cont follow up neuro examination, critical care management (Viky Bernal) Attending Statement The exam, history, and the medical decision-making described in the above note were completed with the assistance of the mid-level provider. I reviewed and agree with the findings presented. I attest that I had a [id number] encounter with the patient on the same day, and personally performed and documented my assessment and findings in the medical record. (Chetan Cruz MD) Viky Bernal Oct 25, 2016 13:18 Chetan Cruz MD Oct 25, 2016 17:30
[2016-10-25] MEDS ORDERED: PHENYTOIN INJ 1,000 MG in SODIUM CHLORIDE 0.9% INJ 100 ML IV ONE (19:00)
[2016-10-25] MEDS: THIAMINE IV SCH ×2 (19:55)
--- NOTE | 2016-10-25 20:18 | HHI.CCPN ---
Subjective Brief History Elderly male who was brought in as a trauma alert after he fell 10 feet from a ladder. GCS 6 initially at the scene subsequently improved to 11 on arrival in the ER. Patient was evaluated by trauma team and subsequently underwent imaging studies and transferred to the ICU. Imaging studies revealed an occipital skull fracture, subdural and subarachnoid blood. Patient was awake and alert at the time of evaluation and following commands and moving all 4 extremities. He could not hear and had some speech difficulty at the time of my evaluation with difficulty in communication though was following commands appropriately. C spine cleared by Neurosurgery at the time of my evaluation. Patient developed worsening agitation despite Precedex last evening. Since then patient had to be intubated ventilated and is currently on propofol fentanyl and Versed drips to keep him down When these are discontinued or less and patient starts biting on the to and becomes restless moves all [address] scan of the head reveals worsening subdural and subarachnoid hemorrhage and the midline shift of about 8 mm 24 Hour Review/Hospital Course Patient has worsened in last 24 hours Repeat CAT scan reveals worsening subdural bleeding over the right parieto- occipital area and [id number] shift of about 8 mm Patient is elderly and a heavy drinker and therefore has atrophy of the brain so there is some more space that allows for compartment pressure IE ICP to remain low We will discuss with neurosurgery about placing ICP monitor or even draining subdural hematoma at this time. Patient remains hyperventilated and on hypertonic saline nonetheless will require bolt placement to assess for ICP and the effectiveness of the therapy 10/13/2016 Patient neurologically unchanged Repeat CAT scan shows some decrease in subdural hematoma and slight decrease in shift yet still severe brain injury At the family's request a second opinion neurosurgery consult was placed and second neurosurgeon has evaluated the patient She will have a long-term recovery here and have discussed this at length with the family Patient may need tracheostomy and PEG tube placement as the part of the appropriate treatment 10/14/2016 Patient with a severe brain injury and subdural hematoma and intraparenchymal hemorrhage Underwent yesterday ventriculostomy placement ICP is within physiologic range at this time and the subdural hematoma size has somewhat decreased There is no change in the neurologic status over the last 24 hours 10/17/16 No change in neurologic status Patient withdraws to pain but does not open eyes or communicates in anyway All sedation has been removed and ventilatory settings been gradually decreased in order 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 Hypertonic saline was held for profound hypernatremia. EEG showed complete moderate encephalopathy. He will require tracheostomy and gastrostomy tube placement once stable. There was 1 episode of mucous plugging which resolved with aggressive suctioning. 10/23/16 Plan was for tracheostomy today, patient however has elevated ICPs into the 30s We will defer tracheostomy until patient is stable 10/24/16 ICP is improved following administration of neostigmine and a large bowel movement He is likely ready for tracheostomy now, as long as his ICPs remain low Palliative care consult placed for tomorrow, will await input from palliative care and family prior to tracheostomy and feeding tube placement Prognosis at this point remains grim for meaningful recovery 10/25/16 Patient with severe brain injury not showing any signs of neurologic recovery and last few days ICPs remain low apparently throughout the weekend and ventriculostomy has been removed by Dr. Cruz Palliative care consult is greatly appreciated and it helps us tremendously and decision-making and communication as far as this patient's further care is concerned At this point patient's friends appear to be thinking that he is a fighter and according to Dr. Cruz he has chance of meaningful recovery Therefore we will proceed with tracheostomy and PEG placement in next day or 2 Objective Vital Signs Date Time Temp Pulse Resp B/P Pulse Ox O2 Delivery O2 Flow Rate FiO2 10/25/16 19:48 98 50 10/25/16 16:00 100.1 87 20 110/51 Intake and Output 10/24/16 10/24/16 10/25/16 08:00 16:00 00:00 Intake Total 1845 ml 1774 ml 1008 ml Output Total 402.0 ml 1000.0 ml 500 ml Balance 1443.0 ml 774.0 ml 508 ml Result Diagram: 10/25/16 0620 10/25/16 1745 Other Results Microbiology Date/Time Procedure Status Source Growth 10/24/16 09:46 Influenza Types A,B Antigen (JADE) - Final Complete Nasal Aspirate NEGATIVE FOR FLU A AND B ANTIGEN.... 10/24/16 09:50 Legionella Antigen - Final Complete Urine Catheterized Urine PRESUMPTIVE NEGATIVE FOR LEGIONELLA P... 10/24/16 09:50 Streptococcus pneumoniae Antigen (M - Final Complete Urine Catheterized Urine PRESUMPTIVE NEGATIVE FOR STREPTOCOCCU... Laboratory Tests Test 10/25/16 05:03 Blood Gas Puncture Site ART LINE Blood Gas Patient Temperature 98.6 Blood Gas HCO3 27 mmol/L (22-26) Blood Gas Base Excess 3.4 mmol/L (-2-2) Blood Gas Oxygen Saturation 93 % (90-100) Arterial Blood pH 7.47 (7.380-7.420) Arterial Blood Partial 38 mmHg (38-42) Pressure CO2 Arterial Blood Partial 75 mmHg Pressure O2 (61-120) Arterial Blood Oxygen Content 13.6 Vol % (12.0-20.0) Arterial Blood 1.1 % (0-4) Carboxyhemoglobin Arterial Blood Methemoglobin 0.9 % (0-2) Blood Gas Hemoglobin 10.4 G/DL (12.0-16.0) Oxygen Delivery Device VENTILATOR Blood Gas Ventilator Setting PRVC/AC Blood Gas Inspired Oxygen 50 % Imaging Last 24 hours Impressions Chest X-Ray 10/25/16 0600 Signed Impressions: Service Date/Time: Tuesday, October 25, 2016 03:18 - CONCLUSION: 1. Persistent bibasilar consolidation/effusion. This may be slightly worse when compared to the prior. 2. Stable position of life support tubes. 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 No change in neurologic status Pulmonary/Respiratory Bilateral good breath sounds and fully ventilatory dependent in the face off neurologic injury While lung is improving patient could never protect his upper airway if extubated and therefore will require tracheostomy and PEG placement not that the friends have decided to proceed with full care Abdomen/GI Nutrition Abdomen soft Assessment and Plan Plan Neuro-continue hypertonic therapy for elevated ICPs patient is on Keppra Celebrex for seizure prophylaxis Pulmonary-continue full ventilator support, will require tracheostomy if family decides to proceed Cardio-stable continue hemodynamic monitoring GI-continue nutritional support, will require gastrostomy tube if family decides to proceed -continue Estrella for hemodynamic monitoring ID-patient is on vancomycin and Rocephin prophylactically, will continue for now FEN-continue nutritional support and replace electrolytes as needed, continue to monitor sodium levels Patient remains critically ill with severe traumatic brain injury and acute respiratory failure due to his injuries. He has a poor prognosis for meaningful recovery and a palliative care consult has been placed for tomorrow. Once the family understands the prognosis, if they wish to continue care he will require tracheostomy and gastrostomy tube placement and eventually transferred to a long-term care facility. Total critical care time 35 minutes Attestation For PEG trach in next few days Continue full care The exam, history, and the medical decision-making described in the above note were completed with the assistance of the mid-level provider. I reviewed and agree with the findings presented. I attest that I had a [id number] encounter with the patient on the same day, and personally performed and documented my assessment and findings in the medical record. Critical care time 40 minutes. Sherry Parikh MD Oct 25, 2016 20:18
[2016-10-26] VITALS (15 sets, daily range): BP systolic 120–145; BP diastolic 54–70; PULSE 78–101; RESP 16–24; TEMP 98.9–101.5; O2SAT 95–100
[2016-10-26] MEDS: PROPRANOLOL HCL 20 MG TAB PO SCH ×4 (00:05→17:29)
[2016-10-26] MEDS: CHLORHEXIDINE GLUCONATE 2 % 1 PACK (2 CLOTHS) TOP SCH (04:00)
[2016-10-26 05:08] LABS: AUTOMATED NEUTROPHIL # 9.2 TH/MM3 (1.8-7.7); BASOPHIL # 0.1 TH/MM3 (0-0.2); BASOPHIL % 0.8 % (0.0-2.0); EOSINOPHIL # 0.3 TH/MM3 (0-0.4); EOSINOPHIL % 2.1 % (0.0-4.0); HEMATOCRIT 28.5 % (39.0-51.0); LYMPH % 8.7 % (9.0-44.0); MEAN CELL VOLUME 95.5 FL (80.0-100.0); MEAN CORPUSCULAR HEMOGLOBIN 31.5 PG (27.0-34.0); NEUT % 76.4 % (16.0-70.0); PLATELET COUNT 305 TH/MM3 (150-450); RED BLOOD COUNT 2.98 MIL/MM3 (4.50-5.90); RED CELL DISTRIBUTION WIDTH 13.9 % (11.6-17.2)
[2016-10-26 05:11] LABS: HEMO FLAGS AUTO DIFF
[2016-10-26 05:33] LABS: BICARBONATE 29.8 MEQ/L (21.0-32.0); MAGNESIUM 2.2 MG/DL (1.5-2.5); POTASSIUM 3.5 MEQ/L (3.5-5.1)
[2016-10-26] MEDS: cloNIDine HCL 0.3 MG TAB PO SCH ×3 (05:34→22:00)
[2016-10-26 07:08] LABS: BANDS 15 % (0-6); EOSINOPHILS 2 % (0-4); METAMYELOCYTES 1 % (0-1); MYELOCYTES 1 % (0-0); NEUTROPHIL # MANUAL DIFF 9.8 TH/MM3 (1.8-7.7); PLATELET ESTIMATE SMEAR NORMAL (NORMAL); PLATELET MORPHOLOGY NORMAL (NORMAL); POLYS (SEG NEUTROPHILS) 65 % (16-70); WBC DIFF SAMPLE 100
[2016-10-26 07:09] LABS: SCAN/DIFF FINAL DIFF MANUAL
[2016-10-26] MEDS: SODIUM CHLORIDE 0.9% FLUSH 5 ML FLUSH IVF SCH ×2 (09:00→21:00)
[2016-10-26] MEDS: CEFTRIAXONE IV SCH ×4 (09:12→20:31)
[2016-10-26] MEDS: CHLORHEXIDINE 0.12% (ORAL KIT) 15 ML CUP MT SCH ×2 (09:12→20:00)
[2016-10-26] MEDS: DEXTROSE 5% IV SCH ×10 (09:12→20:39)
[2016-10-26] MEDS: WATER IV SCH ×12 (09:12→20:39)
[2016-10-26] MEDS: FUROSEMIDE 40 MG/4 ML VIAL IV PUSH SCH (09:14)
[2016-10-26] MEDS: DEXTROSE IV SCH ×4 (09:14→20:39)
[2016-10-26] MEDS: WATE IV SCH ×2 (09:14)
[2016-10-26] MEDS: FOSPHENYTOIN IV SCH ×4 (09:14→20:39)
[2016-10-26] MEDS: LEVETIRACETAM IV SCH ×2 (09:14)
[2016-10-26] MEDS: PANTOPRAZOLE SODIUM 40 MG VIAL IVP SCH (09:15)
[2016-10-26] MEDS: SENNOSIDES SYRUP 8.8 MG/5 ML CUP PO/NG SCH ×2 (09:17→20:39)
[2016-10-26] MEDS: MAGNESIUM HYDROXIDE SUSP 30 ML CUP PO SCH (09:18)
[2016-10-26] MEDS: LACTULOSE SYRUP 20 GM/30 ML CUP PO SCH ×3 (09:18→17:28)
[2016-10-26] MEDS: FOLIC ACID 1 MG TAB PO SCH (09:18)
[2016-10-26] MEDS: POLYETHYLENE GLYCOL 17 GM PKG PO SCH ×2 (09:18→20:39)
[2016-10-26] MEDS: POTASSIUM CHLORIDE 25 MEQ EFFERVESCENT TAB TUBE SCH (09:18)
[2016-10-26] MEDS: MULTIVITAMIN TAB PO SCH (09:19)
[2016-10-26] MEDS: DOCUSATE SODIUM 100 MG CAP PO SCH ×2 (09:19→20:39)
[2016-10-26] MEDS: ACETAMINOPHEN 325 MG TAB PO PRN (09:20)
[2016-10-26] MEDS ORDERED: BUMETANIDE INJ 1 MG/4 ML VIAL IV PUSH ONE (10:00)
[2016-10-26] MEDS: VANCOMYCIN IV SCH ×2 (11:54)
--- NOTE | 2016-10-26 12:22 | HHI.PR ---
Neuropsych Emotional Emotional: UnabletoAssess: Emotional, Anxious/Fearful, Depressed/Sad, Hostile/ Resentful, Irritable/Angry/Frustrate, Labile, Constricted/Blunted Behavior Behavior: Unable to Asses: Behavior, Coping/Acceptance, Cooperative w/ Treatment, Motivation, Frustration Tolerance/Gully, Impulsive/Agitated Cognitive Cognitive: Unable to Asses: Cognitive, Attention/Concentration, Confused/ Orientation, Insight/Awareness, Judgement/Problem-Solving, Memory Progress Notes/Response to Tx Contents of Sessions: Interests Time with Patient: 30 minutes Premorbid psychological status Premorbid Cognitive, Emotional and Behavioral Status: Deferred. 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 The patient has no known psychiatric difficulties. However, substance abuse history is significant for alcohol dependence and tobacco dependence. Behavioral Reactions of Patient and Family/Support System: Tenuous. The patients family has a limited understanding of the complexities of this patient 's brain injury, and the lifestyle barriers that prevent an optimal recovery. They are expected to have ongoing issues of adjustment given the nature of the injury, and this aspect of recovery will require ongoing monitoring. Emotional/Behavioral Status of Patient and Family/Support System: Tenuous. Pertinent issues, if appropriate to this patients clinical care, are described in detail above. Maximizing acute care outcome It is recommended that the patient be monitored for emergent behavioral impulsivity as the medical condition evolves. This patients neuropathological challenges may limit their rehabilitation potential going forward, and these challenges will require specialized therapeutic skills to maximize outcome. Additionally, the patients family is experiencing ongoing issues of adjustment given the traumatic nature of the injury, and they [will need / may benefit] from ongoing psychological assistance. Anticipated Problems Ongoing areas of concern could include behavioral impulsivity, lack of insight and judgment, which is expected to improve with time and treatment, provided he moves past this stage of recovery. Presently, the patient is not following commands. His long duration alcohol dependence and tobacco dependence, which has led to global cerebral atrophy, will serve as a double barrier to his recovery from this injury. Treatment Plan This clinician will continue to follow with you throughout the course of this patients rehabilitation treatment, and I will be available to meet with the patients family/support system to facilitate their understanding and the ongoing care of their family member. The goals of neuropsychological intervention shall be both educational and supportive to the family/support system as is deemed clinically appropriate. [facility] Level: I:No response-total assistance Diagnosis: (1) Major neurocognitive disorder as late effect of traumatic brain injury with behavioral disturbance Status: Acute (2) Alcohol dependence Status: Acute Progress Note Narrative Ongoing follow-up of patient both within the context of daily trauma rounding and bedside. This patient has made no neurobehavioral improvement, despite normal ICPs. Records report that he withdraws in the lower extremities, but this was not appreciated, no eye opening and no ability to follow commands. Palliative care has been consulted. I will continue to follow with you. Kermit Hughes PhD Oct 26, 2016 12:22 pm
--- NOTE | 2016-10-26 13:32 | HHI.HCPN ---
Reason for visit a. To assist with evaluation and management of symptoms including: encephalopathy; dyspnea; pain; constipation b. To assist medical decision maker(s) with: better understanding of current medical conditions; weighing benefits/burdens of medical treatment options; making medical treatment decisions. . Subjective/Interval History Patient remains mechanically ventilated and minimally responsive while off all sedation in the SICU. No evidence of distress. No significant events overnight other than the devlopment of a generalized erythematous maculo-papular rash. No family at bedside. Plans are to go forward with trach/PEG. Tmax 101.5. . Family/friend interactions I spoke with patient's brother Perez Linton) at the number Amanda provided ([phone]). I called around 13:10 and we spoke for about 5 minutes. One of the things I asked is whether or not he would permit us to use Amanda as the health care decision maker rather than having to get both his permission and Amanda's permission. He was absolutely fine with that and understood that Amanda was more available. He and Amanda communicate often and he certainly understands that he can continue to offer his opinions to Amanda but that we would use for consents and health care decision making going forward. Again, he stated his agreement. He also let me know that he would be visiting the patient sometime next week. . Advance Directives Living Will: Never completed Health Care Surrogate: Never completed Durable Power of [employer] Member Other Ranks: Never completed Advance Directive Specifics Date completed: Advanced directives were never completed. . Health Care Surrogate(s): There is no written designation of a health care surrogate. . Documented care wishes: No written documentation of health care preferences/goals/wishes . Objective Vital Signs Date Time Temp Pulse Resp B/P Pulse Ox O2 Delivery O2 Flow Rate FiO2 10/26/16 11:31 98 100 10/26/16 08:00 101.5 101 22 145/62 97 10/26/16 08:00 60 10/26/16 07:34 98 50 10/26/16 06:00 101 10/26/16 04:00 99.0 95 20 138/59 95 10/26/16 04:00 60 10/26/16 04:00 97 10/26/16 03:10 95 50 10/26/16 02:00 78 10/26/16 00:20 95 50 10/26/16 00:00 98.9 92 24 120/54 97 10/26/16 00:00 87 10/26/16 00:00 60 10/25/16 22:00 84 10/25/16 20:00 99.7 87 21 150/66 96 10/25/16 20:00 60 10/25/16 20:00 87 10/25/16 19:48 98 50 10/25/16 18:16 99 50 10/25/16 16:00 100.1 87 20 110/51 98 10/25/16 16:00 60 Intake & Output 10/26/16 10/26/16 07:00 19:00 Intake Total 2322 ml Output Total 900 ml Balance 1422 ml IV Total 1518 ml Tube Feeding 804 ml Output Urine Total 900 ml # Bowel Movements 0 . Physical Exam CONSTITUTIONAL/GENERAL: This is an adequately nourished patient, intubated, mechanically ventilated, minimally responsive, in a surgical intensive care unit bed. TUBES/LINES/DRAINS: Orotracheal tube; orogastric tube; Gann catheter; SCDs; PODUS boots; right radial arterial line; right subclavian central line SKIN: No jaundice,or lesions. There is a generalized erythematous maculopapular rash that is prominent of arms and chest. There is a healing right craniotomy surgical wound. Skin temperature appropriate. Not diaphoretic. HEAD: Healing right craniotomy surgical wound. EYES: Pupils equal and round and reactive. Could not assess extraocular movements. No scleral icterus. No injection or drainage. Fundi not examined. ENT: Unable to assess hearing. Nose without bleeding or purulent drainage. Throat without visible erythema, exudates, masses, or lesions though difficult to evaluate due to intubations. NECK: Trachea midline. Obesedifficult to evaluate. CARDIOVASCULAR: Regular rate and rhythm without murmurs, gallops, or rubs. No JVD but difficult to assess due to neck obesity. RESPIRATORY/CHEST: Symmetric, unlabored respirations. Coarse breath sounds equal bilaterally. No wheezes. GASTROINTESTINAL: Abdomen slightly firm. No hepato-splenomegaly, or palpable masses. No guarding. Bowel sounds present. GENITOURINARY: Without palpable bladder distension. Gann catheter in place. Extensive penile and scrotal edema are present. MUSCULOSKELETAL: Extremities without clubbing, cyanosis. 2-3+ edema in all extremities. No mottling or clubbing. LYMPHATICS: Not examined. NEUROLOGICAL: Patient does not awaken to voice or exam. Minimal withdrawal to noxious stimulus on left lower extremity only. No spontaneous movements noted. Unable to follow commands. PSYCHIATRIC: Unable to assess due to level of responsiveness. . Diagnostic Tests Laboratory Laboratory Tests Test 10/24/16 10/24/16 10/24/16 10/25/16 04:00 09:50 12:01 05:03 White Blood Count 21.1 TH/MM3 (4.0-11.0) Red Blood Count 2.99 MIL/MM3 (4.50-5.90) Hemoglobin 9.6 GM/DL (13.0-17.0) Hematocrit 29.4 % (39.0-51.0) Mean Corpuscular Volume 98.3 FL (80.0-100.0) Mean Corpuscular Hemoglobin 32.2 PG (27.0-34.0) Mean Corpuscular Hemoglobin 32.7 % Concent (32.0-36.0) Red Cell Distribution Width 14.4 % (11.6-17.2) Platelet Count 273 TH/MM3 (150-450) Mean Platelet Volume 8.2 FL (7.0-11.0) Neutrophils (%) (Auto) 84.9 % (16.0-70.0) Lymphocytes (%) (Auto) 5.9 % (9.0-44.0) Monocytes (%) (Auto) 7.9 % (0.0-8.0) Eosinophils (%) (Auto) 0.9 % (0.0-4.0) Basophils (%) (Auto) 0.4 % (0.0-2.0) Neutrophils # (Auto) 17.9 TH/MM3 (1.8-7.7) Lymphocytes # (Auto) 1.2 TH/MM3 (1.0-4.8) Monocytes # (Auto) 1.7 TH/MM3 (0-0.9) Eosinophils # (Auto) 0.2 TH/MM3 (0-0.4) Basophils # (Auto) 0.1 TH/MM3 (0-0.2) CBC Comment AUTO DIFF Differential Total Cells 100 Counted Neutrophils % (Manual) 86 % (16-70) Band Neutrophils % 4 % (0-6) Lymphocytes % 3 % (9-44) Monocytes % 7 % (0-8) Neutrophils # (Manual) 19.0 TH/MM3 (1.8-7.7) Differential Comment FINAL DIFF MANUAL Platelet Estimate NORMAL (NORMAL) Platelet Morphology Comment NORMAL (NORMAL) Red Cell Morphology Comment NORMAL (NORMAL) Sodium Level 144 MEQ/L (136-145) Potassium Level 4.2 MEQ/L (3.5-5.1) Chloride Level 109 MEQ/L (98-107) Carbon Dioxide Level 27.5 MEQ/L (21.0-32.0) Anion Gap 8 MEQ/L (5-15) Blood Urea Nitrogen 26 MG/DL (7-18) Creatinine 0.68 MG/DL (0.60-1.30) Estimat Glomerular Filtration 120 ML/MIN Rate (>89) Random Glucose 146 MG/DL (74-106) Calcium Level 8.5 MG/DL (8.5-10.1) Phosphorus Level 3.1 MG/DL (2.5-4.9) Magnesium Level 2.4 MG/DL (1.5-2.5) Total Bilirubin 0.3 MG/DL (0.2-1.0) Aspartate Amino Transf 27 U/L (15-37) (AST/SGOT) Alanine Aminotransferase 42 U/L (12-78) (ALT/SGPT) Alkaline Phosphatase 144 U/L (45-117) Total Protein 6.2 GM/DL (6.4-8.2) Albumin 1.7 GM/DL (3.4-5.0) Urine Color YELLOW (YELLW/STRAW) Urine Turbidity HAZY (CLEAR) Urine pH 6.0 (5.0-8.5) Urine Specific [place] 1.040 (1.002-1.035) Urine Protein 100 mg/dL (NEG-TRACE) Urine Glucose (UA) NEG mg/dL (NEG) Urine Ketones NEG mg/dL (NEG) Urine Occult Blood SMALL (NEG) Urine Nitrite NEG (NEG) Urine Bilirubin NEG (NEG) Urine Urobilinogen LESS THAN 2.0 MG/DL (LESS THAN 2.0) Urine Leukocyte Esterase NEG (NEG) Urine RBC 9 /hpf (0-3) Urine WBC 2 /hpf (0-5) Urine Bacteria OCC /hpf (NONE) Urine Mucus FEW /lpf (OCC) Microscopic Urinalysis Comment CATH-CULTURE IND Hepatitis C Antibody REACTIVE (NEGATIVE) Blood Gas Puncture Site ART LINE Blood Gas Patient Temperature 98.6 Blood Gas HCO3 27 mmol/L (22-26) Blood Gas Base Excess 3.4 mmol/L (-2-2) Blood Gas Oxygen Saturation 93 % (90-100) Arterial Blood pH 7.47 (7.380-7.420) Arterial Blood Partial 38 mmHg (38-42) Pressure CO2 Arterial Blood Partial 75 mmHg Pressure O2 (61-120) Arterial Blood Oxygen Content 13.6 Vol % (12.0-20.0) Arterial Blood 1.1 % (0-4) Carboxyhemoglobin Arterial Blood Methemoglobin 0.9 % (0-2) Blood Gas Hemoglobin 10.4 G/DL (12.0-16.0) Oxygen Delivery Device VENTILATOR Blood Gas Ventilator Setting PRVC/AC Blood Gas Inspired Oxygen 50 % Test 10/25/16 10/25/16 10/25/16 10/26/16 06:20 08:45 17:45 05:00 White Blood Count 12.8 TH/MM3 12.0 TH/MM3 (4.0-11.0) (4.0-11.0) Red Blood Count 2.79 MIL/MM3 2.98 MIL/MM3 (4.50-5.90) (4.50-5.90) Hemoglobin 9.1 GM/DL 9.4 GM/DL (13.0-17.0) (13.0-17.0) Hematocrit 26.9 % 28.5 % (39.0-51.0) (39.0-51.0) Mean Corpuscular Volume 96.2 FL 95.5 FL (80.0-100.0) (80.0-100.0) Mean Corpuscular Hemoglobin 32.5 PG 31.5 PG (27.0-34.0) (27.0-34.0) Mean Corpuscular Hemoglobin 33.8 % 33.0 % Concent (32.0-36.0) (32.0-36.0) Red Cell Distribution Width 14.1 % 13.9 % (11.6-17.2) (11.6-17.2) Platelet Count 280 TH/MM3 305 TH/MM3 (150-450) (150-450) Mean Platelet Volume 8.5 FL 8.2 FL (7.0-11.0) (7.0-11.0) Neutrophils (%) (Auto) 79.3 % 76.4 % (16.0-70.0) (16.0-70.0) Lymphocytes (%) (Auto) 8.0 % 8.7 % (9.0-44.0) (9.0-44.0) Monocytes (%) (Auto) 10.5 % 12.0 % (0.0-8.0) (0.0-8.0) Eosinophils (%) (Auto) 1.6 % (0.0-4.0) 2.1 % (0.0-4.0) Basophils (%) (Auto) 0.6 % (0.0-2.0) 0.8 % (0.0-2.0) Neutrophils # (Auto) 10.1 TH/MM3 9.2 TH/MM3 (1.8-7.7) (1.8-7.7) Lymphocytes # (Auto) 1.0 TH/MM3 1.0 TH/MM3 (1.0-4.8) (1.0-4.8) Monocytes # (Auto) 1.3 TH/MM3 1.4 TH/MM3 (0-0.9) (0-0.9) Eosinophils # (Auto) 0.2 TH/MM3 0.3 TH/MM3 (0-0.4) (0-0.4) Basophils # (Auto) 0.1 TH/MM3 0.1 TH/MM3 (0-0.2) (0-0.2) CBC Comment DIFF FINAL AUTO DIFF Differential Comment FINAL DIFF MANUAL Sodium Level 146 MEQ/L 144 MEQ/L (136-145) (136-145) Potassium Level 3.4 MEQ/L 3.6 MEQ/L 3.5 MEQ/L (3.5-5.1) (3.5-5.1) (3.5-5.1) Chloride Level 111 MEQ/L 108 MEQ/L (98-107) (98-107) Carbon Dioxide Level 30.4 MEQ/L 29.8 MEQ/L (21.0-32.0) (21.0-32.0) Anion Gap 5 MEQ/L (5-15) 6 MEQ/L (5-15) Blood Urea Nitrogen 24 MG/DL (7-18) 24 MG/DL (7-18) Creatinine 0.59 MG/DL 0.76 MG/DL (0.60-1.30) (0.60-1.30) Estimat Glomerular Filtration 142 ML/MIN 106 ML/MIN Rate (>89) (>89) Random Glucose 118 MG/DL 126 MG/DL (74-106) (74-106) Calcium Level 8.0 MG/DL 8.0 MG/DL (8.5-10.1) (8.5-10.1) Phosphorus Level 2.5 MG/DL 3.1 MG/DL (2.5-4.9) (2.5-4.9) Magnesium Level 2.3 MG/DL 2.2 MG/DL (1.5-2.5) (1.5-2.5) Total Bilirubin 0.4 MG/DL (0.2-1.0) Aspartate Amino Transf 47 U/L (15-37) (AST/SGOT) Alanine Aminotransferase 43 U/L (12-78) (ALT/SGPT) Alkaline Phosphatase 170 U/L (45-117) Total Protein 5.8 GM/DL (6.4-8.2) Albumin 1.4 GM/DL (3.4-5.0) Phenytoin (Dilantin) Level 5.4 MCG/ML 9.1 MCG/ML (10.0-20.0) (10.0-20.0) Vancomycin Level Trough 22.7 MCG/ML (5.0-10.0) Differential Total Cells 100 Counted Neutrophils % (Manual) 65 % (16-70) Band Neutrophils % 15 % (0-6) Lymphocytes % 9 % (9-44) Monocytes % 7 % (0-8) Eosinophils % 2 % (0-4) Neutrophils # (Manual) 9.8 TH/MM3 (1.8-7.7) Metamyelocytes 1 % (0-1) Myelocytes 1 % (0-0) Platelet Estimate NORMAL (NORMAL) Platelet Morphology Comment NORMAL (NORMAL) Random Vancomycin Level 16.9 COMMENT Test 10/26/16 10:05 Ammonia 21 MCMOL/L (11-32) . Result Diagram: 10/26/16 0500 10/26/16 0500 Microbiology Microbiology Date/Time Procedure Status Source Growth 10/24/16 09:46 Influenza Types A,B Antigen (JADE) - Final Complete Nasal Aspirate NEGATIVE FOR FLU A AND B ANTIGEN.... 10/24/16 09:46 Gram Stain - Final Complete Sputum Endotracheal 10/24/16 09:46 Sputum Culture - Final Complete Sputum Endotracheal MODERATE GROWTH NORMAL RESPIRATORY LEIF 10/24/16 09:50 Legionella Antigen - Final Complete Urine Catheterized Urine PRESUMPTIVE NEGATIVE FOR LEGIONELLA P... 10/24/16 09:50 Streptococcus pneumoniae Antigen (M - Final Complete Urine Catheterized Urine PRESUMPTIVE NEGATIVE FOR STREPTOCOCCU... 10/24/16 09:50 Urine Culture - Final Complete Urine Catheterized Urine NO GROWTH IN 48 HOURS. 10/24/16 12:01 Aerobic Blood Culture - Preliminary Resulted Blood Peripheral NO GROWTH IN 2 DAYS 10/24/16 12:01 Anaerobic Blood Culture - Preliminary Resulted Blood Peripheral NO GROWTH IN 2 DAYS 10/24/16 12:10 Aerobic Blood Culture - Preliminary Resulted Blood Peripheral NO GROWTH IN 2 DAYS 10/24/16 12:10 Anaerobic Blood Culture - Preliminary Resulted Blood Peripheral NO GROWTH IN 2 DAYS . Imaging Last Impressions Chest X-Ray 10/25/16 0600 Signed Impressions: Service Date/Time: Tuesday, October 25, 2016 03:18 - CONCLUSION: 1. Persistent bibasilar consolidation/effusion. This may be slightly worse when compared to the prior. 2. Stable position of life support tubes. Mundo Rosa MD Head CT 10/23/16 0000 Signed Impressions: Service Date/Time: Sunday, October 23, 2016 11:21 - CONCLUSION: 1. Examination quality is degraded by motion artifact. There is decreased midline shift, currently measuring 3 mm compared to 6 mm on the prior study. 2. There are persistent hemorrhagic contusions in the right frontal lobe but they are less well-visualized today either related to interval improvement or related to motion artifact. Red Arenas MD Chest CT 10/23/16 0000 Signed Impressions: Service Date/Time: Sunday, October 23, 2016 11:24 - CONCLUSION: 1. Airspace consolidation within the left upper lobe. This could represent an infectious process. 2. Small bilateral pleural effusions with associated compressive atelectasis in the lower lobes. Red Arenas MD Abdomen/Pelvis CT 10/23/16 0000 Signed Impressions: Service Date/Time: Sunday, October 23, 2016 11:27 - CONCLUSION: 1. No acute finding is identified within the abdomen or pelvis. 2. Anasarca. 3. Stable 7 mm nodule on the left adrenal gland. Small size favors a benign process but is incompletely characterized on this examination. Red Arenas MD Neck CTA 10/12/16 0000 Signed Impressions: Service Date/Time: Wednesday, October 12, 2016 09:27 - CONCLUSION: Mild atherosclerotic changes in the proximal portions of both internal carotid arteries but no significant stenosis. Dez Petersen MD Head CTA 10/12/16 0000 Signed Impressions: Service Date/Time: Wednesday, October 12, 2016 09:27 - CONCLUSION: No evidence of acute vascular injury Red Hoffman MD Pelvis X-Ray 10/11/16 1213 Signed Impressions: Service Date/Time: Tuesday, October 11, 2016 12:02 - CONCLUSION: Satisfactory trauma pelvis appearance. Red Hoffman MD Cervical Spine CT 10/11/16 1213 Signed Impressions: Service Date/Time: Tuesday, October 11, 2016 12:19 - CONCLUSION: Occipital skull fracture. No evidence of acute traumatic injury in the cervical spine Red Hoffman MD . Procedures * Anita hole with ICP monitor placed * Right craniectomy * Art line placement * Intubation/mechanical ventilation * Central line placement. . Assessment and Plan Disease Oriented Problem List: (1) Traumatic brain injury (2) SAH (subarachnoid hemorrhage) (3) Subdural hemorrhage following injury (4) Fracture of occipital bone of skull with loss of consciousness (5) Encephalopathy acute (6) Alcohol dependence Comment: Long history of 12-15 drinks per day. . (7) Major neurocognitive disorder as late effect of traumatic brain injury with behavioral disturbance (8) Seizure (9) Pneumonia Comment: Probable aspiration. Blood in vomitus were in airway immediately after fall. . (10) Hepatitis C antibody positive in blood (11) Rectal bleeding Comment: Has had years of abdominal pain with intermittent rectal bleeding. Has avoided recommended work-up due to lack on insurance, lack of funds, and fear of results (per fiancee). . Symptom Scale: (1) Pain 0-10 Scale: Unable to quantify Comment: Patient had history of several pain syndromes. He complained of abdominal pain for years with occasional rectal bleeding. He also complained of right ankle pain where he had surgery and achiness in multiple joints. He would use BC powders several times a day and occasionally hydrocodone. Other current sources of pain might include prolonged bedbound status, post op wound/ head pain, discomfort from trach/gann/OG/vascular access lines. Orders are in place for enteral oxycodone at this time. These appear to be adequate. No further recommendations at this time. . (2) Dyspnea Comment: Patient with probable aspiration pneumonia. Vomitus and blood were in mouth at time of fall. Sputum culture grew out H. flu. Patient also has anasarca and may have a component of pulmonary edema. Dyspnea appears adequately controlled with vent support, antibiotics, and diuretics. Patient had at least a 2 week history of significant right leg swelling from ankle to knee prior to collapse/fall. Could there have been a DVT and PE? May want to consider checking for DVT/PE. . (3) Encephalopathy 0-10 Scale: Unable to quantify Comment: This has been multi-factorial and has involved the brain injury, alcohol withdrawal, infection, seizure, etc. Current encephalopathy now mostly due to brain injury. Encephalopathy persists off sedation. Will continue to support patient as brain is given a chance to heal. No further recommendations at this time. . (4) Anasarca (5) Constipation (6) Rash 0-10 Scale: Unable to quantify Comment: Cause is unclear -- infection? drug eruption? . Pertinent Non-Medical Issues Psychosocial: Social support consists of amye, brother, sister and friend - - Patricio lOeary. Spiritual: Buddhist background. Congregational and spirituality have not played an important role in his life. [place] appreciates transmitter operator visits. Legal: No advance directives. Without a designated health care surrogate, decision-making appears to fall to the majority of his siblings. Ethical issues impacting care: Patient is incapacitated to make his own health care decisions. It is unclear if/when he will regain capacity. . Important Contacts * Brandy Workman (spouse) [phone] * Amanda (sister) -- heatlh care proxy * Perez "Demarco" (brother) [phone] . 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 It is unclear if he had some sort of event causing the fall (he had vomitus and blood in his airway at time of fall) or merely fell. His injuries include occipital bone fracture, SDH, SAH. Complications include EtOH withdrawal, aspiration pneumonia. He has had high ICPs and ultimately underwent right sided craniectomy for decompression. He has had seizure activity. There has been little evidence so far of meaningful neurological recovery. Neurosurgery feels there continues to be a reasonable chance of meaningful neurologic recovery (though it will take a lot of time) and is recommending ongoing aggressive care. . Code Status: Full Code Plan == Code Status: FULL CODE == Decision making: Mr. Nixon is incapacitated to make his own health care decisions and it is unclear if/when he will regain capacity. Patient is not legally , has no children, and the parents who adopted him are . Under the [place], decision making would fall to the patient's adoptive siblings -- Amanda and Demarco. Demarco has agreed to defer decision making to Amanda so AMANDA IS THE OFFICIAL PROXY DECISION MAKER per my phone conversation with Demarco on 10/26/16 at 13:25. The patient's fiancee -- Brandy Workman -- has no decision making authority, but the siblings are including her in the conversations. == Goals of medical treatment: Dr. Cruz believes that patient still has a chance for meaningful recovery. Family feels patient would want to continue fighting then. They support full code status and desire trach/PEG. They will reconsider in the future if patient has additional setbacks or does not show signs of improvement. == Encephalopathy: This has been multi-factorial and has involved the brain injury, alcohol withdrawal, infection, seizure, etc. Current encephalopathy now mostly due to brain injury. Encephalopathy persists off sedation. Will continue to support patient as brain is given a chance to heal. No further recommendations at this time. == Pain: Patient had history of several pain syndromes. He complained of abdominal pain for years with occasional rectal bleeding. He also complained of right ankle pain where he had surgery and achiness in multiple joints. He would use BC powders several times a day and occasionally hydrocodone. Other current sources of pain might include prolonged bedbound status, post op wound/ head pain, discomfort from trach/gann/OG/vascular access lines. Orders are in place for enteral oxycodone at this time. These appear to be adequate. No further recommendations at this time. == Dyspnea: Patient with probable aspiration pneumonia. Vomitus and blood were in mouth at time of fall. Sputum culture grew out H. flu. Patient also has anasarca and may have a component of pulmonary edema. Dyspnea appears adequately controlled with vent support, antibiotics, and diuretics. Patient had at least a 2 week history of significant right leg swelling from ankle to knee prior to collapse/fall. Could there have been a DVT and PE? May want to consider checking for DVT/PE. == Constipation: Bowels now appear to be moving adequately. Now on scheduled senna. No further recommendations at this time. == Rash: Probably infection vs drug reaction. I don't see any newly started drugs, but may have developed a sensitivity to one of his antibiotics or other drug. == Seizures: Now controlled with levitiracetam and fosphenytoin. No further recommendations at this time. == Hx of rectal bleeding with strong family history of GI cancer -- Bleeding may be due to EtOH abuse and frequent use of BC powders. However, probably should have GI endoscopy when stable. == Case discussed with Dr. Parikh who understands goals, plans to go forward with bronchoscopy , and tells me he has ordered doppler ultrasound to check for DVT. == Palliative care will continue to follow to assist with symptom management and to further clarify goals of medical treatment as the clinical course evolves. . Hayden Oviedo MD Oct 26, 2016 13:32
[2016-10-26] MEDS ORDERED: MIDAZOLAM HCL 5 MG/ML VIAL (1 ML) ONE (13:48)
[2016-10-26] MEDS ORDERED: VECURONIUM BROMIDE 10 MG VIAL ONE (13:49)
[2016-10-26] MEDS ORDERED: MIDAZOLAM HCL 5 MG/ML VIAL (1 ML) IV ONE (14:30)
[2016-10-26] MEDS ORDERED: VECURONIUM BROMIDE 10 MG VIAL IV ONE (14:30)
--- NOTE | 2016-10-26 17:06 | HHI.NSPN ---
(Viky Bernal) Note Status Status: Progress Note (Viky Bernal) Interval History Interval History 10/19: POD 1 s/p right decompressive craniectomy with evacuation of subdural hematoma. ICPs 22-23 overnight, f/u CT this am shows improved midline shift. currently well sedated. 10/20: POD 2, EEG showed seizures, on Keppra, Neurology evaluation. currently well sedated and intubated. ICPs below 20. 10/21: POD 3, well sedated, ICPs currently at 8. right flap still full and tight. 10/22: POD 4, no changes neuro checks overnight, sedation being weaned. ICPs within normal range. 10/25: ICPs within normal and stable over the weekend. Withdraws in lower extremities. No eye opening, not following commands. 10/26: slightly extends in the right upper extremity, continues to remain unresponsive, off IV sedatives (Viky Bernal) Labs, Micro, & Vital Signs Results Date Time Temp Pulse Resp B/P Pulse Ox O2 Delivery O2 Flow Rate FiO2 10/26/16 16:00 100.6 94 16 140/62 100 10/26/16 16:00 60 10/26/16 15:27 98 50 10/26/16 12:00 100.7 92 18 124/62 100 10/26/16 12:00 60 10/26/16 11:31 98 100 10/26/16 08:00 101.5 101 22 145/62 97 10/26/16 08:00 60 10/26/16 07:34 98 50 10/26/16 06:00 101 10/26/16 04:00 99.0 95 20 138/59 95 10/26/16 04:00 60 10/26/16 04:00 97 10/26/16 03:10 95 50 10/26/16 02:00 78 10/26/16 00:20 95 50 10/26/16 00:00 98.9 92 24 120/54 97 10/26/16 00:00 87 10/26/16 00:00 60 10/25/16 22:00 84 10/25/16 20:00 99.7 87 21 150/66 96 10/25/16 20:00 60 10/25/16 20:00 87 10/25/16 19:48 98 50 10/25/16 18:16 99 50 10/26/16 07:00 Intake Total 3390 ml Output Total 3825.0 ml Balance -435.0 ml Constitutional Vital Signs Date Time Temp Pulse Resp B/P Pulse Ox O2 Delivery O2 Flow Rate FiO2 10/26/16 16:00 100.6 94 16 140/62 100 10/26/16 16:00 60 10/26/16 15:27 98 50 10/26/16 12:00 100.7 92 18 124/62 100 10/26/16 12:00 60 10/26/16 11:31 98 100 10/26/16 08:00 101.5 101 22 145/62 97 10/26/16 08:00 60 10/26/16 07:34 98 50 10/26/16 06:00 101 10/26/16 04:00 99.0 95 20 138/59 95 10/26/16 04:00 60 10/26/16 04:00 97 10/26/16 03:10 95 50 10/26/16 02:00 78 10/26/16 00:20 95 50 10/26/16 00:00 98.9 92 24 120/54 97 10/26/16 00:00 87 10/26/16 00:00 60 10/25/16 22:00 84 10/25/16 20:00 99.7 87 21 150/66 96 10/25/16 20:00 60 10/25/16 20:00 87 10/25/16 19:48 98 50 10/25/16 18:16 99 50 10/26/16 07:00 Intake Total 3390 ml Output Total 3825.0 ml Balance -435.0 ml (Viky Bernal) Review of Systems/Exam Exam Mr Nixon is intubated, no IV sedation. Not opening eyes, not following commands. Right flap is still full, slightly softer to palpate today. Surgical wound is healing well without evidence of infection. Cranial Nerves: Pupils 5 mm equal and sluggish to react b/l. Sensorimotor: not following commands for motor testing, he mildly withdrawing in bilateral lower extremities to local stimuli, mildly extends in the right upper extremity to nailbed pressure Cerebellar: cannot assess due to clinical condition (Viky Bernal) Medications Current Medications Current Medications Medications (Trade) Dose Ordered Sig/Jony Route PRN Reason Start Time Stop Time Status Last Admin Dose Admin Miscellaneous Information 1 Q361D XX 10/11/16 13:00 10/11/16 13:00 Chlorhexidine Gluconate (Chlorhexidine 2% Cloth) Taper DAILY@04 TOP 10/12/16 04:00 10/08/17 03:59 10/26/16 04:00 Chlorhexidine Gluconate (Chlorhexidine 2% Cloth) 3 pack UNSCH PRN TOP HYGIENIC CARE 10/11/16 13:00 Hydralazine HCl (Apresoline Inj) 10 mg Q2H PRN IV PUSH SBP greater than 150mm Hg 10/11/16 13:30 10/24/16 10:37 Chlorhexidine Gluconate (Peridex 0.12% Liq) 15 ml BID@08,20 MT 10/12/16 08:00 10/26/16 09:12 Magnesium Hydroxide (Milk Of Magnesia Liq) 30 ml DAILY PO 10/12/16 10:00 10/26/16 09:18 Acetaminophen (Tylenol Supp) 650 mg Q4H PRN [place] FEVER 10/15/16 12:15 Info 1 UNSCH XX 10/17/16 11:00 IV Flush (NS Flush) 2 ml UNSCH PRN IVF FLUSH AFTER USING IV ACCESS 10/18/16 11:45 IV Flush (NS Flush) 2 ml BID IVF 10/18/16 21:00 10/25/16 19:57 Bisacodyl (Dulcolax Supp) 10 mg DAILY PRN [place] CONSTIPATION 10/18/16 11:45 10/18/16 14:36 Docusate Sodium (Colace) 100 mg BID PO 10/18/16 21:00 10/26/16 09:19 Pantoprazole Sodium (Protonix Inj) 40 mg DAILY IVP 10/19/16 09:00 10/26/16 09:15 Ondansetron HCl (Zofran Inj) 4 mg Q6H PRN IV NAUSEA OR VOMITING 10/18/16 11:45 Calcium Gluconate 1 gm 1 gm UNSCH PRN IV SEE LABEL COMMENTS 10/18/16 11:45 Potassium Chloride 100 ml @ 50 mls/hr UNSCH PRN IV POTASSIUM LESS THAN 4 10/18/16 11:45 10/25/16 09:35 Magnesium Sulfate/ Sodium Chloride (Magnesium Sulfate Inj/NS Inj) 108 ml @ 108 mls/hr UNSCH PRN IV MAGNESIUM LESS THAN 2 10/18/16 11:45 Acetaminophen 650 mg 650 mg Q4H PRN PO TEMPERATURE > 101.5 F 10/18/16 11:45 10/26/16 09:20 Pharmacy Profile Note 0 ml @ 0 mls/hr UNSCH OTHER 10/19/16 07:45 Propofol (Diprivan 1000 Mg/100ml Inj) 100 ml @ 0 mls/hr TITRATE IV 10/19/16 10:00 10/22/16 12:45 Lactulose (Lactulose Liq) 30 ml TID PO 10/21/16 13:00 10/26/16 09:18 Polyethylene Glycol (Miralax) 17 gm BID PO 10/21/16 11:00 10/26/16 09:18 Propranolol HCl (Inderal) 20 mg Q6HR PO 10/22/16 18:00 10/26/16 05:34 Labetalol HCl (Trandate Inj) 20 mg Q1H PRN IV PUSH sbp > 140 10/22/16 16:45 10/24/16 17:25 Clonidine 0.3 mg 0.3 mg Q8HR PO 10/22/16 16:42 10/26/16 05:34 Fosphenytoin Sodium 200 mgpe/ Dextrose 54 ml @ 216 mls/hr Q12HR IV 10/22/16 21:00 10/26/16 09:14 Nicardipine HCl 50 mg/Dextrose 270 ml @ 0 mls/hr TITRATE IV 10/22/16 20:17 10/22/16 21:07 Thiamine HCl 100 mg/Dextrose 101 ml @ 100 mls/hr Q24H IV 10/23/16 20:00 10/25/16 19:55 Ceftriaxone Sodium/Dextrose (Rocephin Inj/ D5W 100 ml Inj) 100 ml @ 200 mls/hr Q12H IV 10/23/16 08:00 10/26/16 09:12 Folic Acid (Folate) 1 mg DAILY PO 10/25/16 09:00 10/26/16 09:18 Multivitamins (Theragran) 1 tab DAILY PO 10/25/16 09:00 10/26/16 09:19 Sennosides (Senna Liq) 8.8 mg BID PO/NG 10/24/16 21:00 10/26/16 09:17 Oxycodone HCl (Roxicodone Intensol Liq) 5 mg Q4H PRN PO pain 4-6 10/24/16 12:30 Oxycodone HCl (Roxicodone Intensol Liq) 10 mg Q4H PRN PO pain 7-10 10/24/16 12:30 10/24/16 12:52 Furosemide (Lasix Inj) 40 mg DAILY IV PUSH 10/26/16 09:00 10/26/16 09:14 Potassium Bicarb/ Potassium Chloride 25 meq 25 meq DAILY TUBE 10/26/16 09:00 10/26/16 09:18 Vancomycin HCl/ Dextrose (Vancomycin Inj/ D5W Inj) 517.5 ml @ 257.5 mls/ hr Q18H IV 10/26/16 12:00 10/26/16 11:54 Levetriacetam (Keppra Liq) 2,000 mg Q12HR TUBE 10/26/16 21:00 (Viky Bernal) Medical Decision Making MDM Remarks 56 y/o male s/p right decompressive craniectomy with evacuation of SDH, placement of ICP monitor, postop CT Brain with improved midline shift ICP monitor discontinued 10/25 (Viky Bernal) Plan Plan Remarks cont follow up neuro examination, cont critical care management Check ammonia levels (Viky Bernal) Attending Statement The exam, history, and the medical decision-making described in the above note were completed with the assistance of the mid-level provider. I reviewed and agree with the findings presented. I attest that I had a [id number] encounter with the patient on the same day, and personally performed and documented my assessment and findings in the medical record. (Chetan Cruz MD) Viky Bernal Oct 26, 2016 17:06 Chetan Cruz MD Oct 29, 2016 15:40
--- NOTE | 2016-10-26 17:29 | HHI.PR ---
Review/Management Diagnosis 1. Encephalopathy 2. Occipital skull fracture 3. TBI status fall with bifrontal contusions, right temporal parietal subdural hemorrhage s/p craniotomy, subarachnoid hemorrhage. 4. History of alcohol abuse/alcohol withdrawal. 5. Elevated ICP s/p EVD Plan - Neuro checks q. one hourly. - Keppra 2gm Q12 h. - Dilantin 200mg Q12h - Keppra level pending - Seizure prophylaxis. - CIWA protocol IV folate for alcohol withdrawal. - DVT prophylaxis - GI prophylaxis Diagnosis/Plan: Subjective Subjective Comments No acute events reported Dilantin level is low at 9.1 Keppra level pending Active Medications Current Medications Medications (Trade) Dose Ordered Sig/Jony Route Start Time Stop Time Status Last Admin Miscellaneous Information 1 Q361D XX 10/11/16 13:00 10/11/16 13:00 (Chlorhexidine 2% Cloth) Taper DAILY@04 TOP 10/12/16 04:00 10/08/17 03:59 10/26/16 04:00 (Chlorhexidine 2% Cloth) 3 pack UNSCH PRN TOP 10/11/16 13:00 (Apresoline Inj) 10 mg Q2H PRN IV PUSH 10/11/16 13:30 10/24/16 10:37 (Peridex 0.12% Liq) 15 ml BID@08,20 MT 10/12/16 08:00 10/26/16 09:12 (Milk Of Magnesia Liq) 30 ml DAILY PO 10/12/16 10:00 10/26/16 09:18 (Tylenol Supp) 650 mg Q4H PRN [place] 10/15/16 12:15 Info 1 UNSCH XX 10/17/16 11:00 (NS Flush) 2 ml UNSCH PRN IVF 10/18/16 11:45 (NS Flush) 2 ml BID IVF 10/18/16 21:00 10/25/16 19:57 (Dulcolax Supp) 10 mg DAILY PRN [place] 10/18/16 11:45 10/18/16 14:36 (Colace) 100 mg BID PO 10/18/16 21:00 10/26/16 09:19 (Protonix Inj) 40 mg DAILY IVP 10/19/16 09:00 10/26/16 09:15 (Zofran Inj) 4 mg Q6H PRN IV 10/18/16 11:45 Calcium Gluconate 1 gm 1 gm UNSCH PRN IV 10/18/16 11:45 Potassium Chloride 100 ml @ 50 mls/hr UNSCH PRN IV 10/18/16 11:45 10/25/16 09:35 (Magnesium Sulfate Inj/NS Inj) 108 ml @ 108 mls/hr UNSCH PRN IV 10/18/16 11:45 Acetaminophen 650 mg 650 mg Q4H PRN PO 10/18/16 11:45 10/26/16 09:20 Pharmacy Profile Note 0 ml @ 0 mls/hr UNSCH OTHER 10/19/16 07:45 (Diprivan 1000 Mg/100ml Inj) 100 ml @ 0 mls/hr TITRATE IV 10/19/16 10:00 10/22/16 12:45 (Lactulose Liq) 30 ml TID PO 10/21/16 13:00 10/26/16 09:18 (Miralax) 17 gm BID PO 10/21/16 11:00 10/26/16 09:18 (Inderal) 20 mg Q6HR PO 10/22/16 18:00 10/26/16 05:34 (Trandate Inj) 20 mg Q1H PRN IV PUSH 10/22/16 16:45 10/24/16 17:25 Clonidine 0.3 mg 0.3 mg Q8HR PO 10/22/16 16:42 10/26/16 05:34 Fosphenytoin Sodium 200 mgpe/ Dextrose 54 ml @ 216 mls/hr Q12HR IV 10/22/16 21:00 10/26/16 09:14 Nicardipine HCl 50 mg/Dextrose 270 ml @ 0 mls/hr TITRATE IV 10/22/16 20:17 10/22/16 21:07 Thiamine HCl 100 mg/Dextrose 101 ml @ 100 mls/hr Q24H IV 10/23/16 20:00 10/25/16 19:55 (Rocephin Inj/ D5W 100 ml Inj) 100 ml @ 200 mls/hr Q12H IV 10/23/16 08:00 10/26/16 09:12 (Folate) 1 mg DAILY PO 10/25/16 09:00 10/26/16 09:18 (Theragran) 1 tab DAILY PO 10/25/16 09:00 10/26/16 09:19 (Senna Liq) 8.8 mg BID PO/NG 10/24/16 21:00 10/26/16 09:17 (Roxicodone Intensol Liq) 5 mg Q4H PRN PO 10/24/16 12:30 (Roxicodone Intensol Liq) 10 mg Q4H PRN PO 10/24/16 12:30 10/24/16 12:52 (Lasix Inj) 40 mg DAILY IV PUSH 10/26/16 09:00 10/26/16 09:14 Potassium Bicarb/ Potassium Chloride 25 meq 25 meq DAILY TUBE 10/26/16 09:00 10/26/16 09:18 (Vancomycin Inj/ D5W Inj) 517.5 ml @ 257.5 mls/ hr Q18H IV 10/26/16 12:00 10/26/16 11:54 (Keppra Liq) 2,000 mg Q12HR TUBE 10/26/16 21:00 Allergies Allergies Coded Allergies UNOBTAINABLE (Unverified10/11/16) Review of Systems All other ROS: Unable to obtain Exam I&O / VS 10/25/16 10/25/16 10/26/16 15:00 23:00 07:00 Intake Total 1068 ml 1736 ml 586 ml Output Total 2925 ml 500 ml 400 ml Balance -1857 ml 1236 ml 186 ml IV Total 633 ml 1358 ml 160 ml Tube Feeding 435 ml 378 ml 426 ml Output Urine Total 2925 ml 500 ml 400 ml Tube Feeding Residual Discard 0 ml 0 ml # Bowel Movements 0 0 0 Vital Signs Date Time Temp Pulse Resp B/P Pulse Ox O2 Delivery O2 Flow Rate FiO2 10/26/16 16:00 100.6 94 16 140/62 100 10/26/16 16:00 60 10/26/16 15:27 98 50 10/26/16 12:00 100.7 92 18 124/62 100 10/26/16 12:00 60 10/26/16 11:31 98 100 10/26/16 08:00 101.5 101 22 145/62 97 10/26/16 08:00 60 10/26/16 07:34 98 50 10/26/16 06:00 101 10/26/16 04:00 99.0 95 20 138/59 95 10/26/16 04:00 60 10/26/16 04:00 97 10/26/16 03:10 95 50 10/26/16 02:00 78 10/26/16 00:20 95 50 10/26/16 00:00 98.9 92 24 120/54 97 10/26/16 00:00 87 10/26/16 00:00 60 10/25/16 22:00 84 10/25/16 20:00 99.7 87 21 150/66 96 10/25/16 20:00 60 10/25/16 20:00 87 10/25/16 19:48 98 50 10/25/16 18:16 99 50 Respiratory: Coarse breath sounds Musculoskeletal: ROM (Grossly within normal limits) Exam Comments GENERAL: Mechanically vented and sedated. NECK: No JVD, no carotid bruit. CHEST: Clear to auscultation bilaterally. No wheezes. CARDIOVASCULAR: Regular rate and rhythm. EXTREMITIES: No edema. No abnormal posturing. NEUROLOGIC: Sedated, right eye swelling, unable to open to assess for pupil size. Left pupil 2 mm sluggish reflex. Negative gag and cough reflexes. Plantar's bilateral downgoing. No gaze deviation on examining the left eye. Objective Radiology Results Last 72 hours Impressions Chest X-Ray 10/25/16 06 Signed Impressions: Service Date/Time: Tuesday, October 25, 2016 03:18 - CONCLUSION: 1. Persistent bibasilar consolidation/effusion. This may be slightly worse when compared to the prior. 2. Stable position of life support tubes. Mundo Rosa MD Chest X-Ray 10/24/16 06 Signed Impressions: Service Date/Time: Monday, October 24, 2016 04:52 - CONCLUSION: Slight improvement in aeration Red Hoffman MD Micro and Labs Laboratory Tests Test 10/25/16 10/26/16 10/26/16 17:45 05:00 10:05 Potassium Level 3.6 3.5 White Blood Count 12.0 Red Blood Count 2.98 Hemoglobin 9.4 Hematocrit 28.5 Mean Corpuscular Volume 95.5 Mean Corpuscular Hemoglobin 31.5 Mean Corpuscular Hemoglobin 33.0 Concent Red Cell Distribution Width 13.9 Platelet Count 305 Mean Platelet Volume 8.2 Neutrophils (%) (Auto) 76.4 Lymphocytes (%) (Auto) 8.7 Monocytes (%) (Auto) 12.0 Eosinophils (%) (Auto) 2.1 Basophils (%) (Auto) 0.8 Neutrophils # (Auto) 9.2 Lymphocytes # (Auto) 1.0 Monocytes # (Auto) 1.4 Eosinophils # (Auto) 0.3 Basophils # (Auto) 0.1 CBC Comment AUTO DIFF Differential Total Cells 100 Counted Neutrophils % (Manual) 65 Band Neutrophils % 15 Lymphocytes % 9 Monocytes % 7 Eosinophils % 2 Neutrophils # (Manual) 9.8 Metamyelocytes 1 Myelocytes 1 Differential Comment FINAL DIFF MANUAL Platelet Estimate NORMAL Platelet Morphology Comment NORMAL Sodium Level 144 Chloride Level 108 Carbon Dioxide Level 29.8 Anion Gap 6 Blood Urea Nitrogen 24 Creatinine 0.76 Estimat Glomerular Filtration 106 Rate Random Glucose 126 Calcium Level 8.0 Phosphorus Level 3.1 Magnesium Level 2.2 Random Vancomycin Level 16.9 Phenytoin (Dilantin) Level 9.1 Ammonia 21 Date/Time Procedure Status Source Growth 10/24/16 12:10 Aerobic Blood Culture - Preliminary Resulted Blood Peripheral NO GROWTH IN 2 DAYS 10/24/16 12:10 Anaerobic Blood Culture - Preliminary Resulted Blood Peripheral NO GROWTH IN 2 DAYS 10/24/16 09:50 Urine Culture - Final Complete Urine Catheterized Urine NO GROWTH IN 48 HOURS. 10/24/16 09:50 Legionella Antigen - Final Complete Urine Catheterized Urine PRESUMPTIVE NEGATIVE FOR LEGIONELLA P... 10/24/16 09:50 Streptococcus pneumoniae Antigen (M - Final Complete Urine Catheterized Urine PRESUMPTIVE NEGATIVE FOR STREPTOCOCCU... 10/24/16 09:46 Influenza Types A,B Antigen (JADE) - Final Complete Nasal Aspirate NEGATIVE FOR FLU A AND B ANTIGEN.... 10/24/16 09:46 Gram Stain - Final Complete Sputum Endotracheal 10/24/16 09:46 Sputum Culture - Final Complete Sputum Endotracheal MODERATE GROWTH NORMAL RESPIRATORY LEIF Amparo Raman MD Oct 26, 2016 17:29 Amparo Raman MD Oct 26, 2016 17:29
[2016-10-26] MEDS: levETIRAcetam 500 MG/5 ML UDC TUBE SCH (20:31)
[2016-10-26] MEDS: THIAMINE IV SCH ×2 (20:39)
--- NOTE | 2016-10-26 21:40 | HHI.CCPN ---
Subjective Brief History Elderly male who was brought in as a trauma alert after he fell 10 feet from a ladder. GCS 6 initially at the scene subsequently improved to 11 on arrival in the ER. Patient was evaluated by trauma team and subsequently underwent imaging studies and transferred to the ICU. Imaging studies revealed an occipital skull fracture, subdural and subarachnoid blood. Patient was awake and alert at the time of evaluation and following commands and moving all 4 extremities. He could not hear and had some speech difficulty at the time of my evaluation with difficulty in communication though was following commands appropriately. C spine cleared by Neurosurgery at the time of my evaluation. Patient developed worsening agitation despite Precedex last evening. Since then patient had to be intubated ventilated and is currently on propofol fentanyl and Versed drips to keep him down When these are discontinued or less and patient starts biting on the to and becomes restless moves all [address] scan of the head reveals worsening subdural and subarachnoid hemorrhage and the midline shift of about 8 mm 24 Hour Review/Hospital Course Patient has worsened in last 24 hours Repeat CAT scan reveals worsening subdural bleeding over the right parieto- occipital area and [id number] shift of about 8 mm Patient is elderly and a heavy drinker and therefore has atrophy of the brain so there is some more space that allows for compartment pressure IE ICP to remain low We will discuss with neurosurgery about placing ICP monitor or even draining subdural hematoma at this time. Patient remains hyperventilated and on hypertonic saline nonetheless will require bolt placement to assess for ICP and the effectiveness of the therapy 10/13/2016 Patient neurologically unchanged Repeat CAT scan shows some decrease in subdural hematoma and slight decrease in shift yet still severe brain injury At the family's request a second opinion neurosurgery consult was placed and second neurosurgeon has evaluated the patient She will have a long-term recovery here and have discussed this at length with the family Patient may need tracheostomy and PEG tube placement as the part of the appropriate treatment 10/14/2016 Patient with a severe brain injury and subdural hematoma and intraparenchymal hemorrhage Underwent yesterday ventriculostomy placement ICP is within physiologic range at this time and the subdural hematoma size has somewhat decreased There is no change in the neurologic status over the last 24 hours 10/17/16 No change in neurologic status Patient withdraws to pain but does not open eyes or communicates in anyway All sedation has been removed and ventilatory settings been gradually decreased in order to allow for 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 Hypertonic saline was held for profound hypernatremia. EEG showed complete moderate encephalopathy. He will require tracheostomy and gastrostomy tube placement once stable. There was 1 episode of mucous plugging which resolved with aggressive suctioning. 10/23/16 Plan was for tracheostomy today, patient however has elevated ICPs into the 30s We will defer tracheostomy until patient is stable 10/24/16 ICP is improved following administration of neostigmine and a large bowel movement He is likely ready for tracheostomy now, as long as his ICPs remain low Palliative care consult placed for tomorrow, will await input from palliative care and family prior to tracheostomy and feeding tube placement Prognosis at this point remains grim for meaningful recovery 10/25/16 Patient with severe brain injury not showing any signs of neurologic recovery and last few days ICPs remain low apparently throughout the weekend and ventriculostomy has been removed by Dr. Cruz Palliative care consult is greatly appreciated and it helps us tremendously and decision-making and communication as far as this patient's further care is concerned At this point patient's friends appear to be thinking that he is a fighter and according to Dr. Cruz he has chance of meaningful recovery Therefore we will proceed with tracheostomy and PEG placement in next day or 2 10/26/16 No change in current status No neurologic improvement Able to wean the ventilator gradually however due to inability to protect airway patient will need tracheostomy and PEG placement We'll proceed with tracheostomy tomorrow Objective Vital Signs Date Time Temp Pulse Resp B/P Pulse Ox O2 Delivery O2 Flow Rate FiO2 10/26/16 20:00 60 10/26/16 19:11 97 10/26/16 16:00 100.6 94 16 140/62 Intake and Output 10/25/16 10/25/16 10/26/16 08:00 16:00 00:00 Intake Total 1199 ml 1068 ml 1736 ml Output Total 600.0 ml 2925.0 ml 500 ml Balance 599.0 ml -1857.0 ml 1236 ml Result Diagram: 10/26/16 0500 10/26/16 0500 Other Results Microbiology Date/Time Procedure Status Source Growth 10/24/16 09:46 Influenza Types A,B Antigen (JADE) - Final Complete Nasal Aspirate NEGATIVE FOR FLU A AND B ANTIGEN.... 10/24/16 09:46 Gram Stain - Final Complete Sputum Endotracheal 10/24/16 09:46 Sputum Culture - Final Complete Sputum Endotracheal MODERATE GROWTH NORMAL RESPIRATORY LEIF 10/24/16 09:50 Legionella Antigen - Final Complete Urine Catheterized Urine PRESUMPTIVE NEGATIVE FOR LEGIONELLA P... 10/24/16 09:50 Streptococcus pneumoniae Antigen (M - Final Complete Urine Catheterized Urine PRESUMPTIVE NEGATIVE FOR STREPTOCOCCU... 10/24/16 09:50 Urine Culture - Final Complete Urine Catheterized Urine NO GROWTH IN 48 HOURS. 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 Patient is off all sedation but is not waking up and not improving neurologically No seizures Hemodynamic/Cardiac Hemodynamically remains stable Pulmonary/Respiratory Bilateral breath sounds gradually weaning the ventilator however in face of low [place] Coma Scale patient will require tracheostomy at this time to wean off the vent We'll proceed with tracheostomy tomorrow Abdomen/GI Nutrition Abdomen is soft Renal/I&O Good urine output patient somewhat volume overloaded Assessment and Plan Plan Neuro-continue hypertonic therapy for elevated ICPs patient is on Keppra Celebrex for seizure prophylaxis Pulmonary-continue full ventilator support, will require tracheostomy if family decides to proceed Cardio-stable continue hemodynamic monitoring GI-continue nutritional support, will require gastrostomy tube if family decides to proceed -continue Estrella for hemodynamic monitoring ID-patient is on vancomycin and Rocephin prophylactically, will continue for now FEN-continue nutritional support and replace electrolytes as needed, continue to monitor sodium levels Patient remains critically ill with severe traumatic brain injury and acute respiratory failure due to his injuries. He has a poor prognosis for meaningful recovery and a palliative care consult has been placed for tomorrow. Once the family understands the prognosis, if they wish to continue care he will require tracheostomy and gastrostomy tube placement and eventually transferred to a long-term care facility. Total critical care time 35 minutes Attestation The exam, history, and the medical decision-making described in the above note were completed with the assistance of the mid-level provider. I reviewed and agree with the findings presented. I attest that I had a [id number] encounter with the patient on the same day, and personally performed and documented my assessment and findings in the medical record. Critical care time 35 minutes. Sherry Parikh MD Oct 26, 2016 21:40
[2016-10-27] VITALS (18 sets, daily range): BP systolic 127–168; BP diastolic 58–74; PULSE 83–103; RESP 19–26; TEMP 99.7–101.2; O2SAT 96–100
[2016-10-27] MEDS: PROPRANOLOL HCL 20 MG TAB PO SCH ×5 (00:23→22:52)
[2016-10-27] MEDS: CHLORHEXIDINE GLUCONATE 2 % 1 PACK (2 CLOTHS) TOP SCH (04:00)
[2016-10-27] MEDS: ACETAMINOPHEN 325 MG TAB PO PRN ×2 (05:22→16:00)
[2016-10-27] MEDS: DEXTROSE 5% IV SCH ×10 (05:23→22:51)
[2016-10-27] MEDS: VANCOMYCIN IV SCH ×4 (05:23→22:51)
[2016-10-27] MEDS: WATER IV SCH ×14 (05:23→22:51)
[2016-10-27] MEDS: cloNIDine HCL 0.3 MG TAB PO SCH ×3 (05:23→21:48)
[2016-10-27 05:38] LABS: AUTOMATED NEUTROPHIL # 9.5 TH/MM3 (1.8-7.7); BASOPHIL # 0.1 TH/MM3 (0-0.2); BASOPHIL % 0.6 % (0.0-2.0); EOSINOPHIL # 0.3 TH/MM3 (0-0.4); EOSINOPHIL % 2.1 % (0.0-4.0); HEMATOCRIT 27.8 % (39.0-51.0); HEMO FLAGS DIFF FINAL; LYMPH % 8.7 % (9.0-44.0); LYMPHOCYTE # 1.1 TH/MM3 (1.0-4.8); MEAN CELL VOLUME 95.8 FL (80.0-100.0); MEAN CORPUSCULAR HEMOGLOBIN 32.5 PG (27.0-34.0); MEAN CORPUSCULAR HGB CONC 33.9 % (32.0-36.0); MONO % 12.1 % (0.0-8.0); NEUT % 76.5 % (16.0-70.0); PLATELET COUNT 286 TH/MM3 (150-450); WHITE BLOOD COUNT 12.4 TH/MM3 (4.0-11.0)
[2016-10-27 05:56] LABS: BICARBONATE 29.9 MEQ/L (21.0-32.0); POTASSIUM 3.8 MEQ/L (3.5-5.1)
[2016-10-27 07:50] LABS: HCV RNA PCR IU/ML 21600000 IU/mL (()); HCV RNA PCR LOGIU/ML 7.33 (())
[2016-10-27] MEDS: CEFTRIAXONE IV SCH ×4 (08:00→20:33)
[2016-10-27] MEDS: SENNOSIDES SYRUP 8.8 MG/5 ML CUP PO/NG SCH ×2 (08:52→20:33)
[2016-10-27] MEDS: CHLORHEXIDINE 0.12% (ORAL KIT) 15 ML CUP MT SCH ×2 (08:52→20:00)
[2016-10-27] MEDS: LACTULOSE SYRUP 20 GM/30 ML CUP PO SCH ×3 (08:52→18:00)
[2016-10-27] MEDS: MAGNESIUM HYDROXIDE SUSP 30 ML CUP PO SCH (08:52)
[2016-10-27] MEDS: PANTOPRAZOLE SODIUM 40 MG VIAL IVP SCH (08:53)
[2016-10-27] MEDS: levETIRAcetam 500 MG/5 ML UDC TUBE SCH ×2 (08:53→20:33)
[2016-10-27] MEDS: FOLIC ACID 1 MG TAB PO SCH (08:53)
[2016-10-27] MEDS: POLYETHYLENE GLYCOL 17 GM PKG PO SCH ×2 (08:53→20:33)
[2016-10-27] MEDS: POTASSIUM CHLORIDE 25 MEQ EFFERVESCENT TAB TUBE SCH (08:53)
[2016-10-27] MEDS: MULTIVITAMIN TAB PO SCH (08:53)
[2016-10-27] MEDS: FUROSEMIDE 40 MG/4 ML VIAL IV PUSH SCH (08:53)
[2016-10-27] MEDS: DOCUSATE SODIUM 100 MG CAP PO SCH ×2 (08:54→20:32)
[2016-10-27] MEDS: SODIUM CHLORIDE 0.9% FLUSH 5 ML FLUSH IVF SCH ×2 (08:54→20:46)
[2016-10-27] MEDS: DEXTROSE IV SCH ×4 (09:10→20:34)
[2016-10-27] MEDS: FOSPHENYTOIN IV SCH ×4 (09:10→20:34)
[2016-10-27] MEDS: LABETALOL HCL 100 MG/20 ML VIAL IV PUSH PRN (09:12)
[2016-10-27] MEDS ORDERED: BUMETANIDE INJ 1 MG/4 ML VIAL IV PUSH ONE (09:45)
[2016-10-27] MEDS ORDERED: MIDAZOLAM HCL 5 MG/ML VIAL (1 ML) ONE (10:54)
[2016-10-27] MEDS ORDERED: ROCURONIUM INJ 50 MG/5 ML VIAL ONE ×2 (10:54→11:04)
--- NOTE | 2016-10-27 11:16 | RADRPT ---
EXAM DATE/TIME: 10/27/2016 10:13 [facility] COMPARISON: No previous studies available for comparison. INDICATIONS : Bilateral leg swelling. MEDICAL HISTORY : Hypertension. Arthritis. Seizures. Melena. SURGICAL HISTORY : Carpal tunnel surgery. Right ankle surgery. ENCOUNTER: Initial ACUITY: 1 day PAIN SCORE: Non-responsive LOCATION: Bilateral legs. TECHNIQUE: Venous ultrasound of the left and right leg was performed from the inguinal ligament to the proximal calf. Real-time, color Doppler and spectral tracing, compression and augmentation techniques were us ed. FINDINGS: RIGHT LEG: There is normal compressibility of the deep venous system from the inguinal region to the proximal ca lf. No echogenic clot is seen in the lumen of the common femoral, femoral, popliteal, and posterior tibial veins. There is a normal response of the venous system to proximal and distal augmentation an d respiration. LEFT LEG: There is normal compressibility of the deep venous system from the inguinal region to the proximal ca lf. No echogenic clot is seen in the lumen of the common femoral, femoral, popliteal, and posterior tibial veins. There is a normal response of the venous system to proximal and distal augmentation an d respiration. CONCLUSION: No DVT either lower extremity. 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 MD on October 27, 2016 at 11:14 Board Certified Radiologist. This report was verified electronically.
--- NOTE | 2016-10-27 11:23 | PD.PROCEDR ---
Procedure Note Procedure Procedure: Fiberoptic Bronchoscopy for percutaneous tracheostomy guidance Diagnosis/Indication: Respiratory failure, encephalopathy, unable to wean from ventilator Consent: Informed consent obtained and a time out performed Anesthesia: Total 5 mg of IV Versed, 150 g of fentanyl given for pain control. Neuromuscular paralysis with rocuronium Description of the Procedure: The patient was sedated and mechanically ventilated, was placed on 100% FIO2 and PRVC mode of ventilation. The fiberoptic bronchoscopy was inserted via endotracheal tube and the trachea, right and left mainstem bronchi, were evaluated. The endobronchial anatomy was normal. ETT was withdrawn slowly to 15.0 CM. Insertion of introducer needle, guidewire, followed by serial Blue Rhino dilation and tracheostomy placement was directly visualized on video bronchoscopy. (see separate tracheostomy procedure note by Dr. Gruber). After tracheostomy placement, position was confirmed by introducing the bronchoscope through the new trach and visualizing the main fan. The patient tolerated the procedure well with no hemodynamic instability or hypoxia. There were no immediate complications noted. EBL for bronchoscopy was negligible. A chest x-ray has been ordered. I personally performed the procedure. James Moon MD Oct 27, 2016 11:23
[2016-10-27] MEDS ORDERED: MIDAZOLAM HCL 5 MG/ML VIAL (1 ML) IVP ONE (11:30)
[2016-10-27] MEDS ORDERED: ROCURONIUM INJ 50 MG/5 ML VIAL IV PUSH ONE (11:30)
[2016-10-27] MEDS ORDERED: fentaNYL CITRATE 250 MCG/5 ML AMP IV PUSH ONE (11:30)
--- NOTE | 2016-10-27 12:02 | HHI.PR ---
Neuropsych Emotional Emotional: UnabletoAssess: Emotional, Anxious/Fearful, Depressed/Sad, Hostile/ Resentful, Irritable/Angry/Frustrate, Labile, Constricted/Blunted Behavior Behavior: Unable to Asses: Behavior, Coping/Acceptance, Cooperative w/ Treatment, Motivation, Frustration Tolerance/[place], Impulsive/Agitated, Suicidal/ Homicidal Risk Cognitive Cognitive: Unable to Asses: Cognitive, Attention/Concentration, Confused/ Orientation, Insight/Awareness, Judgement/Problem-Solving, Memory Progress Notes/Response to Tx Contents of Sessions: Interests Time with Patient: 15 minutes Premorbid psychological status Premorbid Cognitive, Emotional and Behavioral Status: Deferred. 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 The patient has no known psychiatric difficulties. However, substance abuse history is significant for alcohol dependence and tobacco dependence. Behavioral Reactions of Patient and Family/Support System: Tenuous. The patients family has a limited understanding of the complexities of this patient 's brain injury, and the lifestyle barriers that prevent an optimal recovery. They are expected to have ongoing issues of adjustment given the nature of the injury, and this aspect of recovery will require ongoing monitoring. Emotional/Behavioral Status of Patient and Family/Support System: Tenuous. Pertinent issues, if appropriate to this patients clinical care, are described in detail above. Maximizing acute care outcome It is recommended that the patient be monitored for emergent behavioral impulsivity as the medical condition evolves. This patients neuropathological challenges may limit their rehabilitation potential going forward, and these challenges will require specialized therapeutic skills to maximize outcome. Additionally, the patients family is experiencing ongoing issues of adjustment given the traumatic nature of the injury, and they [will need / may benefit] from ongoing psychological assistance. Anticipated Problems Ongoing areas of concern could include behavioral impulsivity, lack of insight and judgment, which is expected to improve with time and treatment, provided he moves past this stage of recovery. Presently, the patient is not following commands. His long duration alcohol dependence and tobacco dependence, which has led to global cerebral atrophy, will serve as a double barrier to his recovery from this injury. Treatment Plan This clinician will continue to follow with you throughout the course of this patients rehabilitation treatment, and I will be available to meet with the patients family/support system to facilitate their understanding and the ongoing care of their family member. The goals of neuropsychological intervention shall be both educational and supportive to the family/support system as is deemed clinically appropriate. [facility] Level: I:No response-total assistance Diagnosis: (1) Major neurocognitive disorder as late effect of traumatic brain injury with behavioral disturbance Status: Acute (2) Alcohol dependence Status: Acute Progress Note Narrative Ongoing follow-up of patient both within context of daily trauma rounding and also bedside, where I was present during Dr. Munson's clinical examination. From a neurobehavioral perspective, there is no change in this patient from the past several days. The patient is planned for peg and trach placement. I will continue to follow with you. Kermit Hughes PhD Oct 27, 2016 12:02 pm
--- NOTE | 2016-10-27 13:17 | HHI.NSPN ---
(Viky Bernal) Note Status Status: Progress Note (Viky Bernal) Interval History Interval History 10/19: POD 1 s/p right decompressive craniectomy with evacuation of subdural hematoma. ICPs 22-23 overnight, f/u CT this am shows improved midline shift. currently well sedated. 3: POD 2, EEG showed seizures, on Keppra, Neurology evaluation. currently well sedated and intubated. ICPs below 20. 10/21: POD 3, well sedated, ICPs currently at 8. right flap still full and tight. 10/22: POD 4, no changes neuro checks overnight, sedation being weaned. ICPs within normal range. 3: ICPs within normal and stable over the weekend. Withdraws in lower extremities. No eye opening, not following commands. 3: slightly extends in the right upper extremity, continues to remain unresponsive 10/27: Continues to be intubated, mechanically ventilated. No IV sedation, no eye opening or following commands. Extends in the upper extremities. Ammonia levels normal (Viky Bernal) Labs, Micro, & Vital Signs Results Date Time Temp Pulse Resp B/P Pulse Ox O2 Delivery O2 Flow Rate FiO2 10/27/16 12:00 60 10/27/16 12:00 92 10/27/16 12:00 100.4 92 24 168/73 96 10/27/16 11:59 96 50 10/27/16 11:00 100 100 10/27/16 10:00 83 10/27/16 08:00 99.8 92 24 154/74 100 10/27/16 08:00 60 10/27/16 08:00 92 10/27/16 07:27 98 50 10/27/16 06:00 103 10/27/16 04:00 60 10/27/16 04:00 100.1 95 24 137/62 97 10/27/16 04:00 95 10/27/16 03:47 98 50 10/27/16 01:06 96 50 10/27/16 00:00 87 10/27/16 00:00 60 10/27/16 00:00 99.7 87 26 127/58 97 10/26/16 22:00 87 10/26/16 20:00 89 10/26/16 20:00 60 10/26/16 20:00 100.9 89 24 127/70 100 10/26/16 19:11 97 50 10/26/16 16:00 100.6 94 16 140/62 100 10/26/16 16:00 60 10/26/16 15:27 98 50 10/27/16 07:00 Intake Total 3073 ml Output Total 5200 ml Balance -2127 ml Constitutional Vital Signs Date Time Temp Pulse Resp B/P Pulse Ox O2 Delivery O2 Flow Rate FiO2 10/27/16 12:00 60 10/27/16 12:00 92 10/27/16 12:00 100.4 92 24 168/73 96 10/27/16 11:59 96 50 10/27/16 11:00 100 100 10/27/16 10:00 83 10/27/16 08:00 99.8 92 24 154/74 100 10/27/16 08:00 60 10/27/16 08:00 92 10/27/16 07:27 98 50 10/27/16 06:00 103 10/27/16 04:00 60 10/27/16 04:00 100.1 95 24 137/62 97 10/27/16 04:00 95 10/27/16 03:47 98 50 10/27/16 01:06 96 50 10/27/16 00:00 87 10/27/16 00:00 60 10/27/16 00:00 99.7 87 26 127/58 97 10/26/16 22:00 87 10/26/16 20:00 89 10/26/16 20:00 60 10/26/16 20:00 100.9 89 24 127/70 100 10/26/16 19:11 97 50 10/26/16 16:00 100.6 94 16 140/62 100 10/26/16 16:00 60 10/26/16 15:27 98 50 10/27/16 07:00 Intake Total 3073 ml Output Total 5200 ml Balance -2127 ml (Viky Bernal) Review of Systems/Exam Exam Mr Nixon is intubated, no IV sedation. Not opening eyes, not following commands. No purposeful movements seen Right flap is full, soft. Surgical wound is healing well without evidence of infection. Cranial Nerves: Pupils 5 mm equal and sluggish to react b/l. Sensorimotor: not following commands for motor testing, he slightly extending in the right upper extremity, and slightly withdraws in bilateral lower extremities to local stimuli Cerebellar: cannot assess due to clinical condition (Viky Bernal) Medications Current Medications Current Medications Medications (Trade) Dose Ordered Sig/Jony Route PRN Reason Start Time Stop Time Status Last Admin Dose Admin Miscellaneous Information 1 [id number] XX 10/11/16 13:00 10/11/16 13:00 Chlorhexidine Gluconate (Chlorhexidine 2% Cloth) Taper DAILY@04 TOP 10/12/16 04:00 10/08/17 03:59 10/27/16 04:00 Chlorhexidine Gluconate (Chlorhexidine 2% Cloth) 3 pack UNSCH PRN TOP HYGIENIC CARE 10/11/16 13:00 Hydralazine HCl (Apresoline Inj) 10 mg Q2H PRN IV PUSH SBP greater than 150mm Hg 10/11/16 13:30 10/24/16 10:37 Chlorhexidine Gluconate (Peridex 0.12% Liq) 15 ml BID@08,20 MT 10/12/16 08:00 10/27/16 08:52 Magnesium Hydroxide (Milk Of Magnesia Liq) 30 ml DAILY PO 10/12/16 10:00 10/27/16 08:52 Acetaminophen (Tylenol Supp) 650 mg Q4H PRN [place] FEVER 10/15/16 12:15 Info 1 UNSCH XX 10/17/16 11:00 IV Flush (NS Flush) 2 ml UNSCH PRN IVF FLUSH AFTER USING IV ACCESS 10/18/16 11:45 IV Flush (NS Flush) 2 ml BID IVF 10/18/16 21:00 10/27/16 08:54 Bisacodyl (Dulcolax Supp) 10 mg DAILY PRN [place] CONSTIPATION 10/18/16 11:45 10/18/16 14:36 Docusate Sodium (Colace) 100 mg BID PO 10/18/16 21:00 10/26/16 20:39 Pantoprazole Sodium (Protonix Inj) 40 mg DAILY IVP 10/19/16 09:00 3/8/17 08:53 Ondansetron HCl (Zofran Inj) 4 mg Q6H PRN IV NAUSEA OR VOMITING 10/18/16 11:45 Calcium Gluconate 1 gm 1 gm UNSCH PRN IV SEE LABEL COMMENTS 10/18/16 11:45 Potassium Chloride 100 ml @ 50 mls/hr UNSCH PRN IV POTASSIUM LESS THAN 4 10/18/16 11:45 10/25/16 09:35 Magnesium Sulfate/ Sodium Chloride (Magnesium Sulfate Inj/NS Inj) 108 ml @ 108 mls/hr UNSCH PRN IV MAGNESIUM LESS THAN 2 10/18/16 11:45 Acetaminophen 650 mg 650 mg Q4H PRN PO TEMPERATURE > 101.5 F 10/18/16 11:45 10/27/16 05:22 Pharmacy Profile Note 0 ml @ 0 mls/hr UNSCH OTHER 10/19/16 07:45 Propofol (Diprivan 1000 Mg/100ml Inj) 100 ml @ 0 mls/hr TITRATE IV 10/19/16 10:00 10/22/16 12:45 Lactulose (Lactulose Liq) 30 ml TID PO 10/21/16 13:00 10/27/16 08:52 Polyethylene Glycol (Miralax) 17 gm BID PO 10/21/16 11:00 10/27/16 08:53 Propranolol HCl (Inderal) 20 mg Q6HR PO 10/22/16 18:00 10/27/16 05:23 Labetalol HCl (Trandate Inj) 20 mg Q1H PRN IV PUSH sbp > 140 10/22/16 16:45 10/27/16 09:12 Clonidine 0.3 mg 0.3 mg Q8HR PO 10/22/16 16:42 10/27/16 05:23 Fosphenytoin Sodium 200 mgpe/ Dextrose 54 ml @ 216 mls/hr Q12HR IV 10/22/16 21:00 10/27/16 09:10 Nicardipine HCl 50 mg/Dextrose 270 ml @ 0 mls/hr TITRATE IV 10/22/16 20:17 10/22/16 21:07 Thiamine HCl 100 mg/Dextrose 101 ml @ 100 mls/hr Q24H IV 10/23/16 20:00 10/26/16 20:39 Ceftriaxone Sodium/Dextrose (Rocephin Inj/ D5W 100 ml Inj) 100 ml @ 200 mls/hr Q12H IV 10/23/16 08:00 10/27/16 08:00 Folic Acid (Folate) 1 mg DAILY PO 10/25/16 09:00 10/27/16 08:53 Multivitamins (Theragran) 1 tab DAILY PO 10/25/16 09:00 10/27/16 08:53 Sennosides (Senna Liq) 8.8 mg BID PO/NG 10/24/16 21:00 10/27/16 08:52 Oxycodone HCl (Roxicodone Intensol Liq) 5 mg Q4H PRN PO pain 4-6 10/24/16 12:30 Oxycodone HCl (Roxicodone Intensol Liq) 10 mg Q4H PRN PO pain 7-10 10/24/16 12:30 10/24/16 12:52 Furosemide (Lasix Inj) 40 mg DAILY IV PUSH 10/26/16 09:00 10/27/16 08:53 Potassium Bicarb/ Potassium Chloride 25 meq 25 meq DAILY TUBE 10/26/16 09:00 10/26/16 09:18 Vancomycin HCl/ Dextrose (Vancomycin Inj/ D5W Inj) 517.5 ml @ 257.5 mls/ hr Q18H IV 10/26/16 12:00 10/27/16 05:23 Levetriacetam (Keppra Liq) 1,500 mg Q12HR TUBE 10/27/16 21:00 Miscellaneous Information SPECIFIC LAB TO BE DRAWN:VANCOMYCIN TROUGH DATE TO... ONCE ONCE XX 10/28/16 17:45 10/28/16 17:46 (Viky Bernal) Medical Decision Making MDM Remarks 56 y/o male s/p right decompressive craniectomy with evacuation of SDH, placement of ICP monitor, postop CT Brain with improved midline shift ICP monitor discontinued 10/25 (Viky Bernal) Plan Plan Remarks continue with critical care management okay for tracheostomy cont follow up neuro examination (Viky Bernal) Attending Statement The exam, history, and the medical decision-making described in the above note were completed with the assistance of the mid-level provider. I reviewed and agree with the findings presented. I attest that I had a [id number] encounter with the patient on the same day, and personally performed and documented my assessment and findings in the medical record. (Chetan Cruz MD) Viky Bernal Oct 27, 2016 13:17 Chetan Cruz MD Oct 29, 2016 15:40
--- NOTE | 2016-10-27 15:02 | HHI.PR ---
Subjective Subjective Comments Intubated on vent; for trach later today. Allergies: Coded Allergies: UNOBTAINABLE (Unverified , 10/11/16) Review of Systems All other ROS: Unable to obtain Exam I&O / VS 10/26/16 10/26/16 10/27/16 15:00 23:00 07:00 Intake Total 936 ml 1065 ml 1072 ml Output Total 2900 ml 1300 ml 1000 ml Balance -1964 ml -235 ml 72 ml IV Total 679 ml 595 ml 535 ml Tube Feeding 257 ml 410 ml 477 ml Tube Irrigant 60 ml 60 ml Output Urine Total 2900 ml 1300 ml 1000 ml # Bowel Movements 0 0 0 Vital Signs Date Time Temp Pulse Resp B/P Pulse Ox O2 Delivery O2 Flow Rate FiO2 10/27/16 14:00 101 10/27/16 12:00 60 10/27/16 12:00 92 10/27/16 12:00 100.4 92 24 168/73 96 10/27/16 11:59 96 50 10/27/16 11:00 100 100 10/27/16 10:00 83 10/27/16 08:00 99.8 92 24 154/74 100 10/27/16 08:00 60 10/27/16 08:00 92 10/27/16 07:27 98 50 10/27/16 06:00 103 10/27/16 04:00 60 10/27/16 04:00 100.1 95 24 137/62 97 10/27/16 04:00 95 10/27/16 03:47 98 50 10/27/16 01:06 96 50 10/27/16 00:00 87 10/27/16 00:00 60 10/27/16 00:00 99.7 87 26 127/58 97 10/26/16 22:00 87 10/26/16 20:00 89 10/26/16 20:00 60 10/26/16 20:00 100.9 89 24 127/70 100 10/26/16 19:11 97 50 10/26/16 16:00 100.6 94 16 140/62 100 10/26/16 16:00 60 10/26/16 15:27 98 50 General: Intubated (on vent), Other Respiratory: Coarse breath sounds Musculoskeletal: ROM (Grossly within normal limits), Other (SCDs and Multi- Podus boots in place) Neurologic: Pupils (4 mm and slightly reactive), Other (No withdrawal to pain in extremities) Clonus: Negative Objective Micro and Labs Laboratory Tests Test 10/27/16 05:18 White Blood Count 12.4 Red Blood Count 2.90 Hemoglobin 9.4 Hematocrit 27.8 Mean Corpuscular Volume 95.8 Mean Corpuscular Hemoglobin 32.5 Mean Corpuscular Hemoglobin 33.9 Concent Red Cell Distribution Width 14.0 Platelet Count 286 Mean Platelet Volume 8.2 Neutrophils (%) (Auto) 76.5 Lymphocytes (%) (Auto) 8.7 Monocytes (%) (Auto) 12.1 Eosinophils (%) (Auto) 2.1 Basophils (%) (Auto) 0.6 Neutrophils # (Auto) 9.5 Lymphocytes # (Auto) 1.1 Monocytes # (Auto) 1.5 Eosinophils # (Auto) 0.3 Basophils # (Auto) 0.1 CBC Comment DIFF FINAL Differential Comment Sodium Level 142 Potassium Level 3.8 Chloride Level 107 Carbon Dioxide Level 29.9 Anion Gap 5 Blood Urea Nitrogen 19 Creatinine 0.75 Estimat Glomerular Filtration 107 Rate Random Glucose 117 Calcium Level 8.1 Date/Time Procedure Status Source Growth 10/24/16 12:10 Aerobic Blood Culture - Preliminary Resulted Blood Peripheral NO GROWTH IN 3 DAYS 10/24/16 12:10 Anaerobic Blood Culture - Preliminary Resulted Blood Peripheral NO GROWTH IN 3 DAYS 10/24/16 09:50 Urine Culture - Final Complete Urine Catheterized Urine NO GROWTH IN 48 HOURS. 10/24/16 09:50 Legionella Antigen - Final Complete Urine Catheterized Urine PRESUMPTIVE NEGATIVE FOR LEGIONELLA P... 10/24/16 09:50 Streptococcus pneumoniae Antigen (M - Final Complete Urine Catheterized Urine PRESUMPTIVE NEGATIVE FOR STREPTOCOCCU... 10/24/16 09:46 Influenza Types A,B Antigen (JADE) - Final Complete Nasal Aspirate NEGATIVE FOR FLU A AND B ANTIGEN.... 10/24/16 09:46 Gram Stain - Final Complete Sputum Endotracheal 10/24/16 09:46 Sputum Culture - Final Complete Sputum Endotracheal MODERATE GROWTH NORMAL RESPIRATORY LEIF Assessment and Plan Diagnosis: (1) Traumatic brain injury Assessment 1. Fall from ladder with severe TBI including occipital fracture, SDH and SAH S/ P right FTP craniectomy with evacuation of SDH currently intubated on vent for trach placement 3/8/17: [place] 1 2. Seizure Plan 1. PT/OT following for ROM 2. Appreciate Neuropsychology followup. 3. Continue Multi-Podus boots to prevent foot drop 4. Continue to turn and reposition to protect skin 5. Will follow regarding ongoing rehabilitation needs while hospitalized and at discharge in conjunction with case management. Currently SSI pending Tamanna Munson MD Oct 27, 2016 15:02
--- NOTE | 2016-10-27 17:19 | HHI.CCPN ---
Subjective Brief History Elderly male who was brought in as a trauma alert after he fell 10 feet from a ladder. GCS 6 initially at the scene subsequently improved to 11 on arrival in the ER. Patient was evaluated by trauma team and subsequently underwent imaging studies and transferred to the ICU. Imaging studies revealed an occipital skull fracture, subdural and subarachnoid blood. Patient was awake and alert at the time of evaluation and following commands and moving all 4 extremities. He could not hear and had some speech difficulty at the time of my evaluation with difficulty in communication though was following commands appropriately. C spine cleared by Neurosurgery at the time of my evaluation. Patient developed worsening agitation despite Precedex last evening. Since then patient had to be intubated ventilated and is currently on propofol fentanyl and Versed drips to keep him down When these are discontinued or less and patient starts biting on the to and becomes restless moves all [address] scan of the head reveals worsening subdural and subarachnoid hemorrhage and the midline shift of about 8 mm 24 Hour Review/Hospital Course Patient has worsened in last 24 hours Repeat CAT scan reveals worsening subdural bleeding over the right parieto- occipital area and [id number] shift of about 8 mm Patient is elderly and a heavy drinker and therefore has atrophy of the brain so there is some more space that allows for compartment pressure IE ICP to remain low We will discuss with neurosurgery about placing ICP monitor or even draining subdural hematoma at this time. Patient remains hyperventilated and on hypertonic saline nonetheless will require bolt placement to assess for ICP and the effectiveness of the therapy 10/13/2016 Patient neurologically unchanged Repeat CAT scan shows some decrease in subdural hematoma and slight decrease in shift yet still severe brain injury At the family's request a second opinion neurosurgery consult was placed and second neurosurgeon has evaluated the patient She will have a long-term recovery here and have discussed this at length with the family Patient may need tracheostomy and PEG tube placement as the part of the appropriate treatment 10/14/2016 Patient with a severe brain injury and subdural hematoma and intraparenchymal hemorrhage Underwent yesterday ventriculostomy placement ICP is within physiologic range at this time and the subdural hematoma size has somewhat decreased There is no change in the neurologic status over the last 24 hours 10/17/16 No change in neurologic status Patient withdraws to pain but does not open eyes or communicates in anyway All sedation has been removed and ventilatory settings been gradually decreased in order to allow 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 Hypertonic saline was held for profound hypernatremia. EEG showed complete moderate encephalopathy. He will require tracheostomy and gastrostomy tube placement once stable. There was 1 episode of mucous plugging which resolved with aggressive suctioning. 10/23/16 Plan was for tracheostomy today, patient however has elevated ICPs into the 30s We will defer tracheostomy until patient is stable 10/24/16 ICP is improved following administration of neostigmine and a large bowel movement He is likely ready for tracheostomy now, as long as his ICPs remain low Palliative care consult placed for tomorrow, will await input from palliative care and family prior to tracheostomy and feeding tube placement Prognosis at this point remains grim for meaningful recovery 10/25/16 Patient with severe brain injury not showing any signs of neurologic recovery and last few days ICPs remain low apparently throughout the weekend and ventriculostomy has been removed by Dr. Cruz Palliative care consult is greatly appreciated and it helps us tremendously and decision-making and communication as far as this patient's further care is concerned At this point patient's friends appear to be thinking that he is a fighter and according to Dr. Cruz he has chance of meaningful recovery Therefore we will proceed with tracheostomy and PEG placement in next day or 2 10/26/16 No change in current status No neurologic improvement Able to wean the ventilator gradually however due to inability to protect airway patient will need tracheostomy and PEG placement We'll proceed with tracheostomy tomorrow 10/27/16 Patient with the significant head injury remains on the ventilator no change in neurologic status Weaning at this point is inhibited by the fact that patient cannot protect upper airway and due to the low [place] Coma Scale Patient has undergone tracheostomy today and will have a PEG placed Copious secretions At this point we'll be able to wean as tolerated considering the presence of tracheostomy Objective Vital Signs Date Time Temp Pulse Resp B/P Pulse Ox O2 Delivery O2 Flow Rate FiO2 10/27/16 16:00 93 10/27/16 16:00 101.2 24 167/74 98 10/27/16 16:00 50 Intake and Output 10/26/16 10/26/16 10/27/16 08:00 16:00 00:00 Intake Total 586 ml 936 ml 1065 ml Output Total 400 ml 2900 ml 1300 ml Balance 186 ml -1964 ml -235 ml Result Diagram: 10/27/16 0518 10/27/16 0518 Imaging Last 24 hours Impressions Lower Extremity Ultrasound 10/27/16 0000 Signed Impressions: Service Date/Time: Thursday, October 27, 2016 10:13 - CONCLUSION: No DVT either lower extremity. 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 No change in neurologic status Pulmonary/Respiratory Bilateral breath sounds copious secretions from the trach Patient cannot be weaned from the ventilator due to low level of consciousness Underwent successful Blue Rhino tracheostomy today From now on will be able to wean and separate from the ventilator regardless the level of consciousness Abdomen/GI Nutrition Abdomen soft enteral feeds tolerated Assessment and Plan Plan Neuro-continue hypertonic therapy for elevated ICPs patient is on Keppra Celebrex for seizure prophylaxis Pulmonary-continue full ventilator support, will require tracheostomy if family decides to proceed Cardio-stable continue hemodynamic monitoring GI-continue nutritional support, will require gastrostomy tube if family decides to proceed -continue Estrella for hemodynamic monitoring ID-patient is on vancomycin and Rocephin prophylactically, will continue for now FEN-continue nutritional support and replace electrolytes as needed, continue to monitor sodium levels Patient remains critically ill with severe traumatic brain injury and acute respiratory failure due to his injuries. He has a poor prognosis for meaningful recovery and a palliative care consult has been placed for tomorrow. Once the family understands the prognosis, if they wish to continue care he will require tracheostomy and gastrostomy tube placement and eventually transferred to a long-term care facility. Total critical care time 35 minutes Attestation The exam, history, and the medical decision-making described in the above note were completed with the assistance of the mid-level provider. I reviewed and agree with the findings presented. I attest that I had a [id number] encounter with the patient on the same day, and personally performed and documented my assessment and findings in the medical record. Critical care time 40 minutes. Sherry Parikh MD Oct 27, 2016 17:19
[2016-10-27 20:06] LABS: HEPATITIS C RNA GENOTYPE 1b (())
[2016-10-27] MEDS: THIAMINE IV SCH ×2 (21:48)
[2016-10-28] VITALS (20 sets, daily range): BP systolic 137–157; BP diastolic 71–80; PULSE 83–102; RESP 18–27; TEMP 99.8–102.4; O2SAT 94–99
--- NOTE | 2016-10-28 03:15 | RADRPT ---
EXAM DATE/TIME: 10/28/2016 02:31 [place] COMPARISON: CHEST SINGLE AP, October 25, 2016, 3:18. INDICATIONS : Follow up trauma. MEDICAL HISTORY : None. SURGICAL HISTORY : None. ENCOUNTER: Subsequent ACUITY: 3 days PAIN SCORE: Non-responsive. LOCATION: Bilateral chest FINDINGS: A single view of the chest demonstrates persistent bibasilar airspace disease and effusions. Possible slight interval improved aeration in the left base. Endotracheal tube has been removed with placemen t of a tracheostomy tube. The latter is appropriately positioned at the clavicular heads. Nasogastric tube enters the stomach and extends off the inferior aspect of the film. Osseous structures are inta ct. Heart size is normal. CONCLUSION: 1. Interval placement of a tracheostomy tube which appears to be appropriately positioned with the ti p at the clavicular heads. 2. Persistent bibasilar airspace disease/effusions. There may be slight improved aeration in the left base. Mundo Rosa MD on October 28, 2016 at 3:12 Board Certified Radiologist. This report was verified electronically.
[2016-10-28] MEDS: CHLORHEXIDINE GLUCONATE 2 % 1 PACK (2 CLOTHS) TOP SCH (04:00)
[2016-10-28] MEDS: cloNIDine HCL 0.3 MG TAB PO SCH ×3 (06:00→21:14)
[2016-10-28] MEDS: PROPRANOLOL HCL 20 MG TAB PO SCH ×3 (06:03→17:21)
[2016-10-28 06:22] LABS: AUTOMATED NEUTROPHIL # 13.2 TH/MM3 (1.8-7.7); BASOPHIL # 0.1 TH/MM3 (0-0.2); BASOPHIL % 0.5 % (0.0-2.0); EOSINOPHIL # 0.3 TH/MM3 (0-0.4); EOSINOPHIL % 1.6 % (0.0-4.0); HEMATOCRIT 27.7 % (39.0-51.0); HEMO FLAGS DIFF FINAL; LYMPH % 8.3 % (9.0-44.0); LYMPHOCYTE # 1.4 TH/MM3 (1.0-4.8); MEAN CELL VOLUME 95.5 FL (80.0-100.0); MEAN CORPUSCULAR HEMOGLOBIN 32.3 PG (27.0-34.0); MEAN CORPUSCULAR HGB CONC 33.8 % (32.0-36.0); MONO % 11.6 % (0.0-8.0); PLATELET COUNT 276 TH/MM3 (150-450); RED CELL DISTRIBUTION WIDTH 13.7 % (11.6-17.2)
[2016-10-28 06:50] LABS: ANION GAP 10 MEQ/L (5-15); AST (GOT) 41 U/L (15-37); BICARBONATE 28.3 MEQ/L (21.0-32.0); BLOOD UREA NITROGEN 16 MG/DL (7-18); CHLORIDE 103 MEQ/L (98-107); GLOMERULAR FILTRATION RATE 107 ML/MIN (>89); MAGNESIUM 2.2 MG/DL (1.5-2.5); POTASSIUM 3.6 MEQ/L (3.5-5.1); SODIUM (NA) 141 MEQ/L (136-145)
[2016-10-28 06:53] LABS: ALKALINE PHOSPHATASE 207 U/L (45-117); ALT (GPT) 55 U/L (12-78); TOTAL BILIRUBIN ADULT 0.3 MG/DL (0.2-1.0)
[2016-10-28] MEDS: CHLORHEXIDINE 0.12% (ORAL KIT) 15 ML CUP MT SCH ×2 (08:00→21:13)
[2016-10-28] MEDS: WATER IV SCH ×12 (08:35→21:13)
[2016-10-28] MEDS: CEFTRIAXONE IV SCH ×4 (08:35→21:13)
[2016-10-28] MEDS: DEXTROSE 5% IV SCH ×8 (08:35→21:13)
[2016-10-28] MEDS: FOSPHENYTOIN IV SCH ×4 (08:37→21:13)
[2016-10-28] MEDS: DEXTROSE IV SCH ×4 (08:37→21:13)
[2016-10-28] MEDS: FUROSEMIDE 40 MG/4 ML VIAL IV PUSH SCH (08:38)
[2016-10-28] MEDS: SODIUM CHLORIDE 0.9% FLUSH 5 ML FLUSH IVF SCH ×2 (08:38→21:15)
[2016-10-28] MEDS: PANTOPRAZOLE SODIUM 40 MG VIAL IVP SCH (08:38)
[2016-10-28] MEDS: DOCUSATE SODIUM 100 MG CAP PO SCH ×2 (08:39→21:00)
[2016-10-28] MEDS: FOLIC ACID 1 MG TAB PO SCH (08:39)
[2016-10-28] MEDS: LACTULOSE SYRUP 20 GM/30 ML CUP PO SCH ×3 (08:39→17:21)
[2016-10-28] MEDS: POLYETHYLENE GLYCOL 17 GM PKG PO SCH ×2 (08:39→21:00)
[2016-10-28] MEDS: MULTIVITAMIN TAB PO SCH (08:39)
[2016-10-28] MEDS: MAGNESIUM HYDROXIDE SUSP 30 ML CUP PO SCH (08:39)
[2016-10-28] MEDS: SENNOSIDES SYRUP 8.8 MG/5 ML CUP PO/NG SCH ×2 (08:39→21:00)
[2016-10-28] MEDS: levETIRAcetam 500 MG/5 ML UDC TUBE SCH ×2 (08:40→21:14)
[2016-10-28] MEDS: POTASSIUM CHLORIDE 25 MEQ EFFERVESCENT TAB TUBE SCH (09:12)
[2016-10-28] MEDS: LABETALOL HCL 100 MG/20 ML VIAL IV PUSH PRN ×2 (10:00→11:45)
--- NOTE | 2016-10-28 11:27 | HHI.PR ---
Neuropsych Emotional Emotional: UnabletoAssess: Emotional, Anxious/Fearful, Depressed/Sad, Hostile/ Resentful, Irritable/Angry/Frustrate, Labile, Constricted/Blunted Behavior Behavior: Unable to Asses: Behavior, Coping/Acceptance, Cooperative w/ Treatment, Motivation, Frustration Tolerance/Hallie, Impulsive/Agitated, Suicidal/ Homicidal Risk Cognitive Cognitive: Unable to Asses: Cognitive, Attention/Concentration, Confused/ Orientation, Insight/Awareness, Judgement/Problem-Solving, Memory Progress Notes/Response to Tx Contents of Sessions: Level of Consciousness Time with Patient: 15 minutes Premorbid psychological status Premorbid Cognitive, Emotional and Behavioral Status: Deferred. 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 The patient has no known psychiatric difficulties. However, substance abuse history is significant for alcohol dependence and tobacco dependence. Behavioral Reactions of Patient and Family/Support System: Tenuous. The patients family has a limited understanding of the complexities of this patient 's brain injury, and the lifestyle barriers that prevent an optimal recovery. They are expected to have ongoing issues of adjustment given the nature of the injury, and this aspect of recovery will require ongoing monitoring. Emotional/Behavioral Status of Patient and Family/Support System: Tenuous. Pertinent issues, if appropriate to this patients clinical care, are described in detail above. Maximizing acute care outcome It is recommended that the patient be monitored for emergent behavioral impulsivity as the medical condition evolves. This patients neuropathological challenges may limit their rehabilitation potential going forward, and these challenges will require specialized therapeutic skills to maximize outcome. Additionally, the patients family is experiencing ongoing issues of adjustment given the traumatic nature of the injury, and they [will need / may benefit] from ongoing psychological assistance. Anticipated Problems Ongoing areas of concern could include behavioral impulsivity, lack of insight and judgment, which is expected to improve with time and treatment, provided he moves past this stage of recovery. Presently, the patient is not following commands. His long duration alcohol dependence and tobacco dependence, which has led to global cerebral atrophy, will serve as a double barrier to his recovery from this injury. Treatment Plan This clinician will continue to follow with you throughout the course of this patients rehabilitation treatment, and I will be available to meet with the patients family/support system to facilitate their understanding and the ongoing care of their family member. The goals of neuropsychological intervention shall be both educational and supportive to the family/support system as is deemed clinically appropriate. [facility] Level: I:No response-total assistance Diagnosis: (1) Major neurocognitive disorder as late effect of traumatic brain injury with behavioral disturbance Status: Acute (2) Alcohol dependence Status: Acute Progress Note Narrative Ongoing follow-up of patient both within context of trauma rounds and bedside. Nursing reported today that the patient was opening eyes, tracking and withdrawing x4, although these findings were not appreciated by this examiner, and in my observations he remains generally unchanged from the day prior, and thus remains at a [place]. I will continue to follow with you. Kermit Hughes PhD Oct 28, 2016 11:27 am
[2016-10-28] MEDS: hydrALAZINE HCL 20 MG/ML VIAL IV PUSH PRN (11:33)
[2016-10-28] MEDS: oxyCODONE HCL ORAL CONC 20 MG/ML SYRINGE PO PRN (12:11)
[2016-10-28] MEDS: ACETAMINOPHEN 325 MG TAB PO PRN (12:24)
--- NOTE | 2016-10-28 14:32 | HHI.NSPN ---
(Viky Bernal) Note Status Status: Progress Note (Viky Bernal) Interval History Interval History 10/19: POD 1 s/p right decompressive craniectomy with evacuation of subdural hematoma. ICPs 22-23 overnight, f/u CT this am shows improved midline shift. currently well sedated. 10/20: POD 2, EEG showed seizures, on Keppra, Neurology evaluation. currently well sedated and intubated. ICPs below 20. 10/21: POD 3, well sedated, ICPs currently at 8. right flap still full and tight. 10/22: POD 4, no changes neuro checks overnight, sedation being weaned. ICPs within normal range. 3: ICPs within normal and stable over the weekend. Withdraws in lower extremities. No eye opening, not following commands. 37: slightly extends in the right upper extremity, continues to remain unresponsive 3: Continues to be intubated, mechanically ventilated. No IV sedation, no eye opening or following commands. Extends in the upper extremities. Ammonia levels normal 10/28: s/p tracheostomy, today he is opening his eyes. right flap still full but softer (Viky Bernal) Labs, Micro, & Vital Signs Results Date Time Temp Pulse Resp B/P Pulse Ox O2 Delivery O2 Flow Rate FiO2 10/28/16 14:00 89 10/28/16 13:13 97 40 10/28/16 12:00 102.4 93 27 146/80 96 Arterial Line 10/28/16 12:00 95 10/28/16 12:00 40 10/28/16 10:00 95 10/28/16 09:37 94 40 10/28/16 08:00 96 10/28/16 08:00 50 10/28/16 08:00 100.6 96 26 157/71 97 10/28/16 07:38 96 50 10/28/16 06:00 90 10/28/16 04:00 83 10/28/16 04:00 100.0 102 21 157/71 99 10/28/16 04:00 50 10/28/16 03:52 95 50 10/28/16 02:00 99 10/28/16 00:35 98 50 10/28/16 00:00 99 10/28/16 00:00 50 10/28/16 00:00 99.9 102 21 157/71 99 10/27/16 22:00 99 10/27/16 21:00 50 10/27/16 20:00 100.4 92 19 145/66 99 10/27/16 20:00 101 10/27/16 19:21 97 50 10/27/16 18:00 83 10/27/16 16:00 93 10/27/16 16:00 101.2 93 24 167/74 98 10/27/16 16:00 50 10/27/16 14:52 99 50 10/28/16 07:00 Intake Total 2657 ml Output Total 4350.0 ml Balance -1693.0 ml Constitutional Vital Signs Date Time Temp Pulse Resp B/P Pulse Ox O2 Delivery O2 Flow Rate FiO2 10/28/16 14:00 89 10/28/16 13:13 97 40 10/28/16 12:00 102.4 93 27 146/80 96 Arterial Line 10/28/16 12:00 95 10/28/16 12:00 40 10/28/16 10:00 95 10/28/16 09:37 94 40 10/28/16 08:00 96 10/28/16 08:00 50 10/28/16 08:00 100.6 96 26 157/71 97 10/28/16 07:38 96 50 10/28/16 06:00 90 10/28/16 04:00 83 10/28/16 04:00 100.0 102 21 157/71 99 10/28/16 04:00 50 10/28/16 03:52 95 50 10/28/16 02:00 99 10/28/16 00:35 98 50 10/28/16 00:00 99 10/28/16 00:00 50 10/28/16 00:00 99.9 102 21 157/71 99 10/27/16 22:00 99 10/27/16 21:00 50 10/27/16 20:00 100.4 92 19 145/66 99 10/27/16 20:00 101 10/27/16 19:21 97 50 10/27/16 18:00 83 10/27/16 16:00 93 10/27/16 16:00 101.2 93 24 167/74 98 10/27/16 16:00 50 10/27/16 14:52 99 50 10/28/16 07:00 Intake Total 2657 ml Output Total 4350.0 ml Balance -1693.0 ml (Viky Bernal) Review of Systems/Exam Exam Mr Nixon is intubated, no IV sedation. Mildly opening eyes, continues to not follow commands. Right flap is full, soft. Surgical wound is healing well without evidence of infection. Cranial Nerves: Pupils 5 mm equal and sluggish to react b/l, facial grossly symmetric at rest Sensorimotor: not following commands for motor testing, he slightly extending in the right upper extremity, and slightly withdraws in bilateral lower extremities to local stimuli Plantars equivocal bilaterally Cerebellar: cannot assess due to clinical condition Neck: tracheostomy (Viky Bernal) Medications Current Medications Current Medications Medications (Trade) Dose Ordered Sig/Jony Route PRN Reason Start Time Stop Time Status Last Admin Dose Admin Miscellaneous Information 1 Q361D XX 10/11/16 13:00 10/11/16 13:00 Chlorhexidine Gluconate (Chlorhexidine 2% Cloth) Taper DAILY@04 TOP 10/12/16 04:00 10/08/17 03:59 10/28/16 04:00 Chlorhexidine Gluconate (Chlorhexidine 2% Cloth) 3 pack UNSCH PRN TOP HYGIENIC CARE 10/11/16 13:00 Hydralazine HCl (Apresoline Inj) 10 mg Q2H PRN IV PUSH SBP greater than 150mm Hg 10/11/16 13:30 10/28/16 11:33 Chlorhexidine Gluconate (Peridex 0.12% Liq) 15 ml BID@08,20 MT 10/12/16 08:00 10/28/16 08:00 Magnesium Hydroxide (Milk Of Magnesia Liq) 30 ml DAILY PO 10/12/16 10:00 10/28/16 08:39 Acetaminophen (Tylenol Supp) 650 mg Q4H PRN [place] FEVER 10/15/16 12:15 Info 1 UNSCH XX 10/17/16 11:00 IV Flush (NS Flush) 2 ml UNSCH PRN IVF FLUSH AFTER USING IV ACCESS 10/18/16 11:45 IV Flush (NS Flush) 2 ml BID IVF 10/18/16 21:00 10/28/16 08:38 Bisacodyl (Dulcolax Supp) 10 mg DAILY PRN [place] CONSTIPATION 10/18/16 11:45 10/18/16 14:36 Docusate Sodium (Colace) 100 mg BID PO 10/18/16 21:00 10/28/16 08:39 Pantoprazole Sodium (Protonix Inj) 40 mg DAILY IVP 10/19/16 09:00 10/28/16 08:38 Ondansetron HCl (Zofran Inj) 4 mg Q6H PRN IV NAUSEA OR VOMITING 10/18/16 11:45 Calcium Gluconate 1 gm 1 gm UNSCH PRN IV SEE LABEL COMMENTS 10/18/16 11:45 Potassium Chloride 100 ml @ 50 mls/hr UNSCH PRN IV POTASSIUM LESS THAN 4 10/18/16 11:45 10/25/16 09:35 Magnesium Sulfate/ Sodium Chloride (Magnesium Sulfate Inj/NS Inj) 108 ml @ 108 mls/hr UNSCH PRN IV MAGNESIUM LESS THAN 2 10/18/16 11:45 Acetaminophen 650 mg 650 mg Q4H PRN PO TEMPERATURE > 101.5 F 10/18/16 11:45 10/28/16 12:24 Pharmacy Profile Note (Vancomycin Consult Pharmacy) 0 ml @ 0 mls/hr UNSCH OTHER 10/19/16 07:45 Lactulose (Lactulose Liq) 30 ml TID PO 10/21/16 13:00 10/28/16 08:39 Polyethylene Glycol (Miralax) 17 gm BID PO 10/21/16 11:00 10/28/16 08:39 Propranolol HCl (Inderal) 20 mg Q6HR PO 10/22/16 18:00 10/28/16 11:01 Labetalol HCl (Trandate Inj) 20 mg Q1H PRN IV PUSH sbp > 140 10/22/16 16:45 10/28/16 11:45 Clonidine 0.3 mg 0.3 mg Q8HR PO 10/22/16 16:42 10/27/16 21:48 Fosphenytoin Sodium 200 mgpe/ Dextrose 54 ml @ 216 mls/hr Q12HR IV 10/22/16 21:00 10/28/16 08:37 Thiamine HCl 100 mg/Dextrose 101 ml @ 100 mls/hr Q24H IV 10/23/16 20:00 10/27/16 21:48 Ceftriaxone Sodium/Dextrose (Rocephin Inj/ D5W 100 ml Inj) 100 ml @ 200 mls/hr Q12H IV 10/23/16 08:00 10/28/16 08:35 Folic Acid (Folate) 1 mg DAILY PO 10/25/16 09:00 10/28/16 08:39 Multivitamins (Theragran) 1 tab DAILY PO 10/25/16 09:00 10/28/16 08:39 Sennosides (Senna Liq) 8.8 mg BID PO/NG 10/24/16 21:00 10/28/16 08:39 Oxycodone HCl (Roxicodone Intensol Liq) 5 mg Q4H PRN PO pain 4-6 10/24/16 12:30 Oxycodone HCl (Roxicodone Intensol Liq) 10 mg Q4H PRN PO pain 7-10 10/24/16 12:30 10/28/16 12:11 Furosemide (Lasix Inj) 40 mg DAILY IV PUSH 10/26/16 09:00 10/28/16 08:38 Potassium Bicarb/ Potassium Chloride 25 meq 25 meq DAILY TUBE 10/26/16 09:00 10/28/16 09:12 Vancomycin HCl/ Dextrose (Vancomycin Inj/ D5W Inj) 517.5 ml @ 257.5 mls/ hr Q18H IV 10/26/16 12:00 10/27/16 22:51 Levetriacetam (Keppra Liq) 1,500 mg Q12HR TUBE 10/27/16 21:00 10/28/16 08:40 Miscellaneous Information SPECIFIC LAB TO BE DRAWN:VANCOMYCIN TROUGH DATE TO... ONCE ONCE XX 10/28/16 17:45 10/28/16 17:46 (Viky Bernal) Medical Decision Making MDM Remarks 56 y/o male s/p right decompressive craniectomy with evacuation of SDH, placement of ICP monitor, postop CT Brain with improved midline shift ICP monitor discontinued 10/25 (Viky Bernal) Plan Plan Remarks cont in bed therapy follow up neuro examination, cont critical care management dc scalp marisela 11/01/16 (Viky Bernal) Attending Statement The exam, history, and the medical decision-making described in the above note were completed with the assistance of the mid-level provider. I reviewed and agree with the findings presented. I attest that I had a [id number] encounter with the patient on the same day, and personally performed and documented my assessment and findings in the medical record. (Chetan Cruz MD) Viky Bernal Oct 28, 2016 14:32 Chetan Cruz MD Oct 29, 2016 18:52
--- NOTE | 2016-10-28 16:47 | PD.CONS ---
HPI History of Present Illness This is an unfortunate 56 year old male who was brought as a trauma alert after he had a 10 feet fall from a ladder and sustained occipital skull fracture, subdural and subarachnoid bleed. Subsequently patient had right decompressive craniectomy with evacuation of subdural hematoma, patient was intubated and failed weaning measures .Currently patient is ventilated via trach, tolerating TF okay. GI consulted for PEG tube placement. PFSH Past Medical History Per EMR * Hypertension * Several year history of abdominal pain with intermittent rectal bleeding ( strong family history of stomach cancer). Refused w/u due to lack of insurance and inadequate funds. * Osteoarthritis * Carpal tunnel syndrome . Past Surgical History Per EMR * tonsillectomy * Right ankle surgery -- hardware in place. . Coded Allergies: UNOBTAINABLE (Unverified , 10/11/16) Medications Current Medications Medications (Trade) Dose Ordered Sig/Jony Route Start Time Stop Time Status Last Admin Miscellaneous Information 1 Q361D XX 10/11/16 13:00 10/11/16 13:00 (Chlorhexidine 2% Cloth) Taper DAILY@04 TOP 10/12/16 04:00 10/08/17 03:59 10/28/16 04:00 (Chlorhexidine 2% Cloth) 3 pack UNSCH PRN TOP 10/11/16 13:00 (Apresoline Inj) 10 mg Q2H PRN IV PUSH 10/11/16 13:30 10/28/16 11:33 (Peridex 0.12% Liq) 15 ml BID@08,20 MT 10/12/16 08:00 10/28/16 08:00 (Milk Of Magnesia Liq) 30 ml DAILY PO 10/12/16 10:00 10/28/16 08:39 (Tylenol Supp) 650 mg Q4H PRN PA 10/15/16 12:15 Info 1 UNSCH XX 10/17/16 11:00 (NS Flush) 2 ml UNSCH PRN IVF 10/18/16 11:45 (NS Flush) 2 ml BID IVF 10/18/16 21:00 10/28/16 08:38 (Dulcolax Supp) 10 mg DAILY PRN PA 10/18/16 11:45 10/18/16 14:36 (Colace) 100 mg BID PO 10/18/16 21:00 10/28/16 08:39 (Protonix Inj) 40 mg DAILY IVP 10/19/16 09:00 10/28/16 08:38 (Zofran Inj) 4 mg Q6H PRN IV 10/18/16 11:45 Calcium Gluconate 1 gm 1 gm UNSCH PRN IV 10/18/16 11:45 Potassium Chloride 100 ml @ 50 mls/hr UNSCH PRN IV 10/18/16 11:45 10/25/16 09:35 (Magnesium Sulfate Inj/NS Inj) 108 ml @ 108 mls/hr UNSCH PRN IV 10/18/16 11:45 Acetaminophen 650 mg 650 mg Q4H PRN PO 10/18/16 11:45 10/28/16 12:24 (Vancomycin Consult Pharmacy) 0 ml @ 0 mls/hr UNSCH OTHER 10/19/16 07:45 (Lactulose Liq) 30 ml TID PO 10/21/16 13:00 10/28/16 08:39 (Miralax) 17 gm BID PO 10/21/16 11:00 10/28/16 08:39 (Inderal) 20 mg Q6HR PO 10/22/16 18:00 10/28/16 11:01 (Trandate Inj) 20 mg Q1H PRN IV PUSH 10/22/16 16:45 10/28/16 11:45 Clonidine 0.3 mg 0.3 mg Q8HR PO 10/22/16 16:42 10/28/16 14:26 Fosphenytoin Sodium 200 mgpe/ Dextrose 54 ml @ 216 mls/hr Q12HR IV 10/22/16 21:00 10/28/16 08:37 Thiamine HCl 100 mg/Dextrose 101 ml @ 100 mls/hr Q24H IV 10/23/16 20:00 10/27/16 21:48 (Rocephin Inj/ D5W 100 ml Inj) 100 ml @ 200 mls/hr Q12H IV 10/23/16 08:00 10/28/16 08:35 (Folate) 1 mg DAILY PO 10/25/16 09:00 10/28/16 08:39 (Theragran) 1 tab DAILY PO 10/25/16 09:00 10/28/16 08:39 (Senna Liq) 8.8 mg BID PO/NG 10/24/16 21:00 10/28/16 08:39 (Roxicodone Intensol Liq) 5 mg Q4H PRN PO 10/24/16 12:30 (Roxicodone Intensol Liq) 10 mg Q4H PRN PO 10/24/16 12:30 10/28/16 12:11 (Lasix Inj) 40 mg DAILY IV PUSH 10/26/16 09:00 10/28/16 08:38 Potassium Bicarb/ Potassium Chloride 25 meq 25 meq DAILY TUBE 10/26/16 09:00 10/28/16 09:12 (Vancomycin Inj/ D5W Inj) 517.5 ml @ 257.5 mls/ hr Q18H IV 10/26/16 12:00 10/27/16 22:51 (Keppra Liq) 1,500 mg Q12HR TUBE 10/27/16 21:00 10/28/16 08:40 Miscellaneous Information SPECIFIC LAB TO BE DRAWN:VANCOMYCIN TROUGH DATE TO... ONCE ONCE XX 10/28/16 17:45 10/28/16 17:46 Family History Non contributory Social History Not able to obtain, sedated on vent Review of Systems ROS Patient is sedated on a vent, not able to obtain GI Exam Vitals I&O Vital Signs Date Time Temp Pulse Resp B/P Pulse Ox O2 Delivery O2 Flow Rate FiO2 10/28/16 16:01 97 40 10/28/16 16:00 86 10/28/16 16:00 99.8 86 23 137/76 96 10/28/16 16:00 40 10/28/16 14:00 89 10/28/16 13:13 97 40 10/28/16 12:00 102.4 93 27 146/80 96 Arterial Line 10/28/16 12:00 95 10/28/16 12:00 40 10/28/16 10:00 95 10/28/16 09:37 94 40 10/28/16 08:00 96 10/28/16 08:00 50 10/28/16 08:00 100.6 96 26 157/71 97 10/28/16 07:38 96 50 10/28/16 06:00 90 10/28/16 04:00 83 10/28/16 04:00 100.0 102 21 157/71 99 10/28/16 04:00 50 10/28/16 03:52 95 50 10/28/16 02:00 99 10/28/16 00:35 98 50 10/28/16 00:00 99 10/28/16 00:00 50 10/28/16 00:00 99.9 102 21 157/71 99 10/27/16 22:00 99 10/27/16 21:00 50 10/27/16 20:00 100.4 92 19 145/66 99 10/27/16 20:00 101 10/27/16 19:21 97 50 10/27/16 18:00 83 I/O 10/27/16 10/27/16 10/27/16 10/28/16 10/28/16 10/28/16 07:00 15:00 23:00 07:00 15:00 23:00 Intake Total 1072 ml 622 ml 830 ml 1205 ml 923 ml Output Total 1000 ml 2300 ml 750 ml 1300 ml 2450 ml Balance 72 ml -1678 ml 80 ml -95 ml -1527 ml IV Total 535 ml 216 ml 330 ml 746 ml 219 ml Tube Feeding 477 ml 286 ml 440 ml 459 ml 504 ml Tube Irrigant 60 ml 120 ml 60 ml 200 ml Output Urine Total 1000 ml 2300 ml 450 ml 1200 ml 1950 ml Stool Total 300 ml 100 ml 500 ml Tube Feeding Residual Discard 0 ml 0 ml # Bowel Movements 0 2 Imaging Last Impressions Chest X-Ray 10/28/16 0600 Signed Impressions: Service Date/Time: October 02:31 - CONCLUSION: 1. Interval placement of a tracheostomy tube which appears to be appropriately positioned with the tip at the clavicular heads. 2. Persistent bibasilar airspace disease/effusions. There may be slight improved aeration in the left base. Mundo Rosa MD Lower Extremity Ultrasound 10/27/16 0000 Signed Impressions: Service Date/Time: Thursday, October 27, 2016 10:13 - CONCLUSION: No DVT either lower extremity. 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 MD Head CT 10/23/16 0000 Signed Impressions: Service Date/Time: Sunday, October 23, 2016 11:21 - CONCLUSION: 1. Examination quality is degraded by motion artifact. There is decreased midline shift, currently measuring 3 mm compared to 6 mm on the prior study. 2. There are persistent hemorrhagic contusions in the right frontal lobe but they are less well-visualized today either related to interval improvement or related to motion artifact. Red Arenas MD Chest CT 10/23/16 0000 Signed Impressions: Service Date/Time: Sunday, October 23, 2016 11:24 - CONCLUSION: 1. Airspace consolidation within the left upper lobe. This could represent an infectious process. 2. Small bilateral pleural effusions with associated compressive atelectasis in the lower lobes. Red Arenas MD Abdomen/Pelvis CT 10/23/16 0000 Signed Impressions: Service Date/Time: Sunday, October 23, 2016 11:27 - CONCLUSION: 1. No acute finding is identified within the abdomen or pelvis. 2. Anasarca. 3. Stable 7 mm nodule on the left adrenal gland. Small size favors a benign process but is incompletely characterized on this examination. Red Arenas MD Neck CTA 10/12/16 0000 Signed Impressions: Service Date/Time: Wednesday, October 12, 2016 09:27 - CONCLUSION: Mild atherosclerotic changes in the proximal portions of both internal carotid arteries but no significant stenosis. Dez Petersen MD Head CTA 10/12/16 0000 Signed Impressions: Service Date/Time: Wednesday, October 12, 2016 09:27 - CONCLUSION: No evidence of acute vascular injury Red Hoffman MD Pelvis X-Ray 10/11/16 1213 Signed Impressions: Service Date/Time: Tuesday, October 11, 2016 12:02 - CONCLUSION: Satisfactory trauma pelvis appearance. Red Hoffman MD Cervical Spine CT 10/11/16 1213 Signed Impressions: Service Date/Time: Tuesday, October 11, 2016 12:19 - CONCLUSION: Occipital skull fracture. No evidence of acute traumatic injury in the cervical spine Red Hoffman MD Laboratory Test 10/28/16 06:00 White Blood Count 17.0 TH/MM3 Red Blood Count 2.90 MIL/MM3 Hemoglobin 9.4 GM/DL Hematocrit 27.7 % Mean Corpuscular Volume 95.5 FL Mean Corpuscular Hemoglobin 32.3 PG Mean Corpuscular Hemoglobin 33.8 % Concent Red Cell Distribution Width 13.7 % Platelet Count 276 TH/MM3 Mean Platelet Volume 8.3 FL Neutrophils (%) (Auto) 78.0 % Lymphocytes (%) (Auto) 8.3 % Monocytes (%) (Auto) 11.6 % Eosinophils (%) (Auto) 1.6 % Basophils (%) (Auto) 0.5 % Neutrophils # (Auto) 13.2 TH/MM3 Lymphocytes # (Auto) 1.4 TH/MM3 Monocytes # (Auto) 2.0 TH/MM3 Eosinophils # (Auto) 0.3 TH/MM3 Basophils # (Auto) 0.1 TH/MM3 CBC Comment DIFF FINAL Differential Comment Sodium Level 141 MEQ/L Potassium Level 3.6 MEQ/L Chloride Level 103 MEQ/L Carbon Dioxide Level 28.3 MEQ/L Anion Gap 10 MEQ/L Blood Urea Nitrogen 16 MG/DL Creatinine 0.75 MG/DL Estimat Glomerular Filtration 107 ML/MIN Rate Random Glucose 116 MG/DL Calcium Level 8.3 MG/DL Phosphorus Level 3.1 MG/DL Magnesium Level 2.2 MG/DL Total Bilirubin 0.3 MG/DL Aspartate Amino Transf 41 U/L (AST/SGOT) Alanine Aminotransferase 55 U/L (ALT/SGPT) Alkaline Phosphatase 207 U/L Total Protein 6.4 GM/DL Albumin 1.5 GM/DL Date/Time Procedure Status Source Growth 10/24/16 12:10 Aerobic Blood Culture - Preliminary Resulted Blood Peripheral NO GROWTH IN 4 DAYS 10/24/16 12:10 Anaerobic Blood Culture - Preliminary Resulted Blood Peripheral NO GROWTH IN 4 DAYS 10/24/16 09:50 Urine Culture - Final Complete Urine Catheterized Urine NO GROWTH IN 48 HOURS. 10/24/16 09:50 Legionella Antigen - Final Complete Urine Catheterized Urine PRESUMPTIVE NEGATIVE FOR LEGIONELLA P... 10/24/16 09:50 Streptococcus pneumoniae Antigen (M - Final Complete Urine Catheterized Urine PRESUMPTIVE NEGATIVE FOR STREPTOCOCCU... 10/24/16 09:46 Influenza Types A,B Antigen (JADE) - Final Complete Nasal Aspirate NEGATIVE FOR FLU A AND B ANTIGEN.... 10/24/16 09:46 Gram Stain - Final Complete Sputum Endotracheal 10/24/16 09:46 Sputum Culture - Final Complete Sputum Endotracheal MODERATE GROWTH NORMAL RESPIRATORY LEIF Physical Examination HEENT: normocephalic; atraumatic; no jaundice. marisela to right scalp NECK: trach CHEST: Chest is clear to auscultation and percussion. CARDIAC: Regular rate and rhythm with no murmur gallop or rubs. ABDOMEN: Soft, nondistended, obese, nontender; no hepatosplenomegaly; bowel sounds are present in all four quadrants. EXTREMITIES: No clubbing, cyanosis, or edema. SKIN: gen. edema, ecchymosis MUSIC ARRANGER: Sedate on a vent Assessment and Plan Plan - Dysphagia/FEN- This is an unfortunate 56 year old male who was brought as a trauma alert after he had a 10 feet fall from a ladder and sustained occipital skull fracture, subdural and subarachnoid bleed. Subsequently patient had right decompressive craniectomy with evacuation of subdural hematoma, patient was intubated and failed weaning measures .Currently patient is ventilated via trach , tolerating TF okay. GI consulted for PEG tube placement. Plan: - EGD/PEG tube in am, spoke with sister explained risk, benefits , alternatives and she is agreeing, - NPO mn - Patient already on abx - supportive care - Patient seen and examined by Dr. Robert and myself and this note is written on his behalf. Manolo Segura Oct 28, 2016 16:47
--- NOTE | 2016-10-28 16:53 | HHI.HCPN ---
Reason for visit a. To assist with evaluation and management of symptoms including: encephalopathy; dyspnea; pain; constipation b. To assist medical decision maker(s) with: better understanding of current medical conditions; weighing benefits/burdens of medical treatment options; making medical treatment decisions. . Subjective/Interval History Patient remains mechanically ventilated s/p tracheostomy 10/27/16, will now attempt to wean. Patient is off sedation, remains minimally responsive. Nursing reported the patient was opening eyes, tracking and withdrawing 4 earlier today. However, the patient was unresponsive at the time of my exam. He did not respond to verbal stimuli, slight extension of right upper extremity. GI has been consulted to evaluate patient for PEG tube placement. Febrile. T-max 102.4. Blood cultures and urine cultures show no growth opn day 4. = WBC 17.0 (increased from 12.4 on 10/27/16), hemoglobin 9.4, hematocrit 27.7, platelets 276, neutrophils 78.0% = Sodium 141, potassium 3.6, chloride 103, carbon dioxide 28.3, glucose 116, calcium 8.3, phosphorus 3.1, magnesium 12.2 = Total bilirubin 0.3, AST 41, ALT 55, alkaline phosphatase 207 = Total protein 6.4, albumin 1.5 = BUN 16, creatinine 0.75, GFR 107 Follow up CXR on 10/28/16 showing persistent bibasilar airspace disease/ effusions. There may be slight improved aeration in the left base. Family has requested to meet with Palliative care tomorrow to further discuss patient's clinical condition and clarification of medical treatment goals. Patient brother, Demarco, will be coming into town this weekend. Family would like to discuss patient's neurological recovery/expectations - discussed with Viky BRAMBILA . Family/friend interactions Family has requested to meet with Palliative care tomorrow to further discuss patient's clinical condition and clarification of medical treatment goals. Patient brother, Demarco, will be coming into town this weekend. Family would like to discuss patient's neurological recovery/expectations - discussed with Viky BRAMBILA . Advance Directives Living Will: Never completed Health Care Surrogate: Never completed Durable Power of [place] Builder: Never completed Advance Directive Specifics Date completed: Advanced directives were never completed. . Health Care Surrogate(s): There is no written designation of a health care surrogate. . Documented care wishes: No written documentation of health care preferences/goals/wishes . Objective Vital Signs Date Time Temp Pulse Resp B/P Pulse Ox O2 Delivery O2 Flow Rate FiO2 10/28/16 16:01 97 40 10/28/16 16:00 86 10/28/16 14:00 89 10/28/16 13:13 97 40 10/28/16 12:00 102.4 93 27 146/80 96 Arterial Line 10/28/16 12:00 95 10/28/16 12:00 40 10/28/16 10:00 95 10/28/16 09:37 94 40 10/28/16 08:00 96 10/28/16 08:00 50 10/28/16 08:00 100.6 96 26 157/71 97 10/28/16 07:38 96 50 10/28/16 06:00 90 10/28/16 04:00 83 10/28/16 04:00 100.0 102 21 157/71 99 10/28/16 04:00 50 10/28/16 03:52 95 50 10/28/16 02:00 99 10/28/16 00:35 98 50 10/28/16 00:00 99 10/28/16 00:00 50 10/28/16 00:00 99.9 102 21 157/71 99 10/27/16 22:00 99 10/27/16 21:00 50 10/27/16 20:00 100.4 92 19 145/66 99 10/27/16 20:00 101 10/27/16 19:21 97 50 10/27/16 18:00 83 Intake & Output 10/28/16 10/28/16 07:00 19:00 Intake Total 2035 ml 923 ml Output Total 2050 ml 2450 ml Balance -15 ml -1527 ml IV Total 1076 ml 219 ml Tube Feeding 899 ml 504 ml Tube Irrigant 60 ml 200 ml Output Urine Total 1650 ml 1950 ml Stool Total 400 ml 500 ml . Physical Exam CONSTITUTIONAL/GENERAL: This is an adequately nourished patient mechanically ventilated s/p tracheostomy on 10/27/16. Patient remains minimally responsive, in a surgical intensive care unit bed. TUBES/LINES/DRAINS: Tracheostomy; orogastric tube; Gann catheter; SCDs; PODUS boots; right radial arterial line; right subclavian central line; rectal tube SKIN: No jaundice,or lesions. There is a generalized erythematous maculopapular rash that is prominent of arms and chest. There is a healing right craniotomy surgical wound. Skin temperature appropriate. Not diaphoretic. HEAD: Healing right craniotomy surgical wound, no s/s infection EYES: Pupils equal 5mm and round and sluggish. No scleral icterus. No injection or drainage. Fundi not examined. ENT: Unable to assess hearing. Nose without bleeding or purulent drainage. NECK: Trachea midline. Obesedifficult to evaluate. CARDIOVASCULAR: Regular rate and rhythm without murmurs, gallops, or rubs. RESPIRATORY/CHEST: Tracheostomy to mechanical ventilator. GASTROINTESTINAL: Abdomen slightly firm. No hepato-splenomegaly, or palpable masses. No guarding. Bowel sounds present. GENITOURINARY: Without palpable bladder distension. Gann catheter in place. Significant penile and scrotal edema are present. MUSCULOSKELETAL: Extremities without clubbing, cyanosis. No mottling or clubbing. NEUROLOGICAL: Patient does not awaken to voice or exam. No spontaneous movements noted. He did not respond to verbal stimuli, slight extension of right upper extremity. PSYCHIATRIC: Unable to assess due to level of responsiveness. . Diagnostic Tests Laboratory Laboratory Tests Test 10/25/16 10/26/16 10/26/16 10/27/16 17:45 05:00 10:05 05:18 Potassium Level 3.6 MEQ/L 3.5 MEQ/L 3.8 MEQ/L (3.5-5.1) (3.5-5.1) (3.5-5.1) White Blood Count 12.0 TH/MM3 12.4 TH/MM3 (4.0-11.0) (4.0-11.0) Red Blood Count 2.98 MIL/MM3 2.90 MIL/MM3 (4.50-5.90) (4.50-5.90) Hemoglobin 9.4 GM/DL 9.4 GM/DL (13.0-17.0) (13.0-17.0) Hematocrit 28.5 % 27.8 % (39.0-51.0) (39.0-51.0) Mean Corpuscular Volume 95.5 FL 95.8 FL (80.0-100.0) (80.0-100.0) Mean Corpuscular Hemoglobin 31.5 PG 32.5 PG (27.0-34.0) (27.0-34.0) Mean Corpuscular Hemoglobin 33.0 % 33.9 % Concent (32.0-36.0) (32.0-36.0) Red Cell Distribution Width 13.9 % 14.0 % (11.6-17.2) (11.6-17.2) Platelet Count 305 TH/MM3 286 TH/MM3 (150-450) (150-450) Mean Platelet Volume 8.2 FL 8.2 FL (7.0-11.0) (7.0-11.0) Neutrophils (%) (Auto) 76.4 % 76.5 % (16.0-70.0) (16.0-70.0) Lymphocytes (%) (Auto) 8.7 % 8.7 % (9.0-44.0) (9.0-44.0) Monocytes (%) (Auto) 12.0 % 12.1 % (0.0-8.0) (0.0-8.0) Eosinophils (%) (Auto) 2.1 % (0.0-4.0) 2.1 % (0.0-4.0) Basophils (%) (Auto) 0.8 % (0.0-2.0) 0.6 % (0.0-2.0) Neutrophils # (Auto) 9.2 TH/MM3 9.5 TH/MM3 (1.8-7.7) (1.8-7.7) Lymphocytes # (Auto) 1.0 TH/MM3 1.1 TH/MM3 (1.0-4.8) (1.0-4.8) Monocytes # (Auto) 1.4 TH/MM3 1.5 TH/MM3 (0-0.9) (0-0.9) Eosinophils # (Auto) 0.3 TH/MM3 0.3 TH/MM3 (0-0.4) (0-0.4) Basophils # (Auto) 0.1 TH/MM3 0.1 TH/MM3 (0-0.2) (0-0.2) CBC Comment AUTO DIFF DIFF FINAL Differential Total Cells 100 Counted Neutrophils % (Manual) 65 % (16-70) Band Neutrophils % 15 % (0-6) Lymphocytes % 9 % (9-44) Monocytes % 7 % (0-8) Eosinophils % 2 % (0-4) Neutrophils # (Manual) 9.8 TH/MM3 (1.8-7.7) Metamyelocytes 1 % (0-1) Myelocytes 1 % (0-0) Differential Comment FINAL DIFF MANUAL Platelet Estimate NORMAL (NORMAL) Platelet Morphology Comment NORMAL (NORMAL) Sodium Level 144 MEQ/L 142 MEQ/L (136-145) (136-145) Chloride Level 108 MEQ/L 107 MEQ/L (98-107) (98-107) Carbon Dioxide Level 29.8 MEQ/L 29.9 MEQ/L (21.0-32.0) (21.0-32.0) Anion Gap 6 MEQ/L (5-15) 5 MEQ/L (5-15) Blood Urea Nitrogen 24 MG/DL (7-18) 19 MG/DL (7-18) Creatinine 0.76 MG/DL 0.75 MG/DL (0.60-1.30) (0.60-1.30) Estimat Glomerular Filtration 106 ML/MIN 107 ML/MIN Rate (>89) (>89) Random Glucose 126 MG/DL 117 MG/DL (74-106) (74-106) Calcium Level 8.0 MG/DL 8.1 MG/DL (8.5-10.1) (8.5-10.1) Phosphorus Level 3.1 MG/DL (2.5-4.9) Magnesium Level 2.2 MG/DL (1.5-2.5) Random Vancomycin Level 16.9 COMMENT Phenytoin (Dilantin) Level 9.1 MCG/ML (10.0-20.0) Levetiracetam (Keppra) Level 18.9 mcg/mL (12.0 - 46.0) Ammonia 21 MCMOL/L (11-32) Test 10/28/16 06:00 White Blood Count 17.0 TH/MM3 (4.0-11.0) Red Blood Count 2.90 MIL/MM3 (4.50-5.90) Hemoglobin 9.4 GM/DL (13.0-17.0) Hematocrit 27.7 % (39.0-51.0) Mean Corpuscular Volume 95.5 FL (80.0-100.0) Mean Corpuscular Hemoglobin 32.3 PG (27.0-34.0) Mean Corpuscular Hemoglobin 33.8 % Concent (32.0-36.0) Red Cell Distribution Width 13.7 % (11.6-17.2) Platelet Count 276 TH/MM3 (150-450) Mean Platelet Volume 8.3 FL (7.0-11.0) Neutrophils (%) (Auto) 78.0 % (16.0-70.0) Lymphocytes (%) (Auto) 8.3 % (9.0-44.0) Monocytes (%) (Auto) 11.6 % (0.0-8.0) Eosinophils (%) (Auto) 1.6 % (0.0-4.0) Basophils (%) (Auto) 0.5 % (0.0-2.0) Neutrophils # (Auto) 13.2 TH/MM3 (1.8-7.7) Lymphocytes # (Auto) 1.4 TH/MM3 (1.0-4.8) Monocytes # (Auto) 2.0 TH/MM3 (0-0.9) Eosinophils # (Auto) 0.3 TH/MM3 (0-0.4) Basophils # (Auto) 0.1 TH/MM3 (0-0.2) CBC Comment DIFF FINAL Differential Comment Sodium Level 141 MEQ/L (136-145) Potassium Level 3.6 MEQ/L (3.5-5.1) Chloride Level 103 MEQ/L (98-107) Carbon Dioxide Level 28.3 MEQ/L (21.0-32.0) Anion Gap 10 MEQ/L (5-15) Blood Urea Nitrogen 16 MG/DL (7-18) Creatinine 0.75 MG/DL (0.60-1.30) Estimat Glomerular Filtration 107 ML/MIN Rate (>89) Random Glucose 116 MG/DL (74-106) Calcium Level 8.3 MG/DL (8.5-10.1) Phosphorus Level 3.1 MG/DL (2.5-4.9) Magnesium Level 2.2 MG/DL (1.5-2.5) Total Bilirubin 0.3 MG/DL (0.2-1.0) Aspartate Amino Transf 41 U/L (15-37) (AST/SGOT) Alanine Aminotransferase 55 U/L (12-78) (ALT/SGPT) Alkaline Phosphatase 207 U/L (45-117) Total Protein 6.4 GM/DL (6.4-8.2) Albumin 1.5 GM/DL (3.4-5.0) . Result Diagram: 10/28/16 0600 10/28/16 0600 Imaging Last 72 hours Impressions Chest X-Ray 10/28/16 0600 Signed Impressions: Service Date/Time: October 02:31 - CONCLUSION: 1. Interval placement of a tracheostomy tube which appears to be appropriately positioned with the tip at the clavicular heads. 2. Persistent bibasilar airspace disease/effusions. There may be slight improved aeration in the left base. Mundo Rosa MD Lower Extremity Ultrasound 10/27/16 0000 Signed Impressions: Service Date/Time: Thursday, October 27, 2016 10:13 - CONCLUSION: No DVT either lower extremity. 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 MD . Procedures * [place] hole with ICP monitor placed * Right craniectomy * Art line placement * Intubation/mechanical ventilation * Central line placement. * Tracheostomy . Assessment and Plan Disease Oriented Problem List: (1) Traumatic brain injury (2) SAH (subarachnoid hemorrhage) (3) Subdural hemorrhage following injury (4) Fracture of occipital bone of skull with loss of consciousness (5) Encephalopathy acute (6) Alcohol dependence Comment: Long history of 12-15 drinks per day. . (7) Major neurocognitive disorder as late effect of traumatic brain injury with behavioral disturbance (8) Seizure (9) Pneumonia Comment: Probable aspiration. Blood in vomitus were in airway immediately after fall. . (10) Hepatitis C antibody positive in blood (11) Rectal bleeding Comment: Has had years of abdominal pain with intermittent rectal bleeding. Has avoided recommended work-up due to lack on insurance, lack of funds, and fear of results (per fiancee). . Symptom Scale: (1) Pain 0-10 Scale: Unable to quantify Comment: Patient had history of several pain syndromes. He complained of abdominal pain for years with occasional rectal bleeding. He also complained of right ankle pain where he had surgery and achiness in multiple joints. He would use BC powders several times a day and occasionally hydrocodone. Other current sources of pain might include prolonged bedbound status, post op wound/ head pain, discomfort from trach/gann/OG/vascular access lines. Orders are in place for PRN oxycodone at this time. These appear to be adequate. No further recommendations at this time. . (2) Dyspnea Comment: Patient with probable aspiration pneumonia. Vomitus and blood were in mouth at time of fall. Sputum culture grew out H. flu. Patient also has anasarca and may have a component of pulmonary edema. Dyspnea appears adequately controlled with vent support, antibiotics, and diuretics. Weaning from mechanical ventilator was inhibited secondary to patient's inability to protect his upper airway. Will attempt to wean patient status post tracheostomy placement 10/27/16. . (3) Encephalopathy 0-10 Scale: Unable to quantify Comment: This has been multi-factorial and has involved the brain injury, alcohol withdrawal, infection, seizure, etc. Current encephalopathy now mostly due to brain injury. Encephalopathy persists off sedation. Will continue to support patient as brain is given a chance to heal. No further recommendations at this time. . (4) Anasarca (5) Constipation (6) Rash 0-10 Scale: Unable to quantify Comment: Cause is unclear -- infection? drug eruption? . Pertinent Non-Medical Issues Psychosocial: Social support consists of shasta, brother, sister and friend - - Patricio Oleary. Spiritual: Gnosticism background. Zoroastrianism and spirituality have not played an important role in his life. Shasta appreciates sales ledger clerk visits. Legal: No advance directives. Without a designated health care surrogate, decision-making appears to fall to the majority of his siblings. Ethical issues impacting care: Patient is incapacitated to make his own health care decisions. It is unclear if/when he will regain capacity. . Important Contacts * Brandy Workman (spouse) [phone] * Amanda "Manuela"reynold (sister) - heatl care proxy: * Perez Schroeder" (brother) [phone] * Amanda "Jamila" Ubaldo (niece) [phone] . 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 It is unclear if he had some sort of event causing the fall (he had vomitus and blood in his airway at time of fall) or merely fell. His injuries include occipital bone fracture, SDH, SAH. Complications include EtOH withdrawal, aspiration pneumonia. He has had high ICPs and ultimately underwent right sided craniectomy for decompression. He has had seizure activity. There has been little evidence so far of meaningful neurological recovery. Neurosurgery feels there continues to be a reasonable chance of meaningful neurologic recovery (though it will take a lot of time) and is recommending ongoing aggressive care. . Code Status: Full Code Plan == Code Status: FULL CODE == Decision making: Mr. Nixon is incapacitated to make his own health care decisions and it is unclear if/when he will regain capacity. Patient is not legally , has no children, and the parents who adopted him are . Under the [place] Statutes, decision making would fall to the patient's adoptive siblings -- Amanda and Demarco. Demarco has agreed to defer decision making to Amanda so AMANDA IS THE OFFICIAL PROXY DECISION MAKER per my phone conversation with Demarco on 10/26/16 at 13:25. The patient's fiancee -- Brandy Workman -- has no decision making authority, but the siblings are including her in the conversations. == Goals of medical treatment: Dr. Cruz believes that patient still has a chance for meaningful recovery. Family was like to give the patient and opportunity to heal but stated the patient would not want to live dependent on artificial life support. They support full code status. Tracheostomy was placed 10/27/16 and GI has been consulted to evaluate for PEG tube placement.. They will reconsider in the future if patient has additional setbacks or does not show signs of improvement. == Communication: Family would like to discuss patient's neurological recovery/ expectations with neurosurgery - discussed with Viky Bernal PA == Tentative family meeting scheduled for tomorrow 10/29/16 at 1 PM. == Encephalopathy: This has been multi-factorial and has involved the brain injury, alcohol withdrawal, infection, seizure, etc. Current encephalopathy now mostly due to brain injury. Encephalopathy persists off sedation. Will continue to support patient as brain is given a chance to heal. No further recommendations at this time. == Pain: Patient had history of several pain syndromes. He complained of abdominal pain for years with occasional rectal bleeding. He also complained of right ankle pain where he had surgery and achiness in multiple joints. He would use BC powders several times a day and occasionally hydrocodone. Other current sources of pain might include prolonged bedbound status, post op wound/ head pain, discomfort from trach/gann/OG/vascular access lines. Orders are in place for PRN oxycodone at this time. These appear to be adequate. No further recommendations at this time. == Dyspnea: Patient with probable aspiration pneumonia. Vomitus and blood were in mouth at time of fall. Sputum culture grew out H. flu. Patient also has anasarca and may have a component of pulmonary edema. Dyspnea appears adequately controlled with vent support, antibiotics, and diuretics. Patient had at least a 2 week history of significant right leg swelling from ankle to knee prior to collapse/fall - ultrasound showing no DVT in either lower extremity. May want to consider checking for DVT/PE. Weaning from mechanical ventilator was inhibited secondary to patient's inability to protect his upper airway. Will attempt to wean patient status post tracheostomy placement . Follow up CXR on 10/28/16 showing persistent bibasilar airspace disease/ effusions. There may be slight improved aeration in the left base. == Constipation: Bowels now appear to be moving adequately. Now on scheduled senna. No further recommendations at this time. == Rash: Probably infection vs drug reaction. I don't see any newly started drugs, but may have developed a sensitivity to one of his antibiotics or other drug. == Seizures: Now controlled with levitiracetam and fosphenytoin. No further recommendations at this time. == Hx of rectal bleeding with strong family history of GI cancer -- Bleeding may be due to EtOH abuse and frequent use of BC powders. However, probably should have GI endoscopy when stable. == Palliative care will continue to follow to assist with symptom management and to further clarify goals of medical treatment as the clinical course evolves. . Attestation To help prompt me to consider important information that might be impacting today's encounter and assessment, information from prior notes written by myself or my colleagues may have been "brought forward" into today's note. My signature on this note, however, is an attestation that I personally performed the exam, history, and/or decision-making noted today, and, unless otherwise indicated, the interactions with patient, family, and staff as well as the review of records all occurred today. I also attest that the listed assessment and stated plan reflect my best clinical judgment today based on the combination of historical information, prior notes, and today's exam/ interactions. When time spent is documented, it refers only to time spent today by the signer, or if indicated, combined time spent today by collaborating physician/nurse practitioner. . Татьяна Hauser Oct 28, 2016 16:53
[2016-10-28] MEDS ORDERED: PHARMACY ORDERED LAB XX ONE (17:45)
[2016-10-28] MEDS: VANCOMYCIN IV SCH ×2 (19:05)
[2016-10-28] MEDS: THIAMINE IV SCH ×2 (21:13)
[2016-10-29] VITALS (16 sets, daily range): BP systolic 118–139; BP diastolic 69–78; PULSE 10–108; RESP 11–21; TEMP 99–101.1; O2SAT 92–97
[2016-10-29] MEDS: PROPRANOLOL HCL 20 MG TAB PO SCH ×5 (00:37→17:45)
[2016-10-29] MEDS: CHLORHEXIDINE GLUCONATE 2 % 1 PACK (2 CLOTHS) TOP SCH (01:16)
[2016-10-29 04:48] LABS: AUTOMATED NEUTROPHIL # 16.3 TH/MM3 (1.8-7.7); BASOPHIL # 0.1 TH/MM3 (0-0.2); BASOPHIL % 0.4 % (0.0-2.0); EOSINOPHIL # 0.4 TH/MM3 (0-0.4); EOSINOPHIL % 1.8 % (0.0-4.0); HEMATOCRIT 28.4 % (39.0-51.0); LYMPH % 7.9 % (9.0-44.0); LYMPHOCYTE # 1.6 TH/MM3 (1.0-4.8); MEAN CELL VOLUME 96.1 FL (80.0-100.0); MEAN CORPUSCULAR HEMOGLOBIN 32.5 PG (27.0-34.0); MEAN CORPUSCULAR HGB CONC 33.8 % (32.0-36.0); MONO % 10.6 % (0.0-8.0); NEUT % 79.3 % (16.0-70.0); PLATELET COUNT 300 TH/MM3 (150-450); RED BLOOD COUNT 2.95 MIL/MM3 (4.50-5.90); RED CELL DISTRIBUTION WIDTH 13.8 % (11.6-17.2); WHITE BLOOD COUNT 20.5 TH/MM3 (4.0-11.0)
[2016-10-29 04:49] LABS: HEMO FLAGS AUTO DIFF
--- NOTE | 2016-10-29 04:58 | RADRPT ---
EXAM DATE/TIME: 10/29/2016 03:58 [facility] COMPARISON: CHEST SINGLE AP, October 28, 2016, 2:31. INDICATIONS : Shortness of breath. MEDICAL HISTORY : None. SURGICAL HISTORY : None. ENCOUNTER: Subsequent ACUITY: 1 week PAIN SCORE: Non-responsive. LOCATION: Bilateral chest FINDINGS: Tracheostomy in place. Gastric tube tip projects within the stomach. Right subclavian catheter tip projects over the distal superior vena cava. There is persistent consolidation left lower lung with loss of delineation left hemidiaphragm and persistent hazy opacity in the right lower lung. CONCLUSION: Persistent bilateral lower lung consolidation, left greater than right. Cosmo Abbasi MD on October 29, 2016 at 4:55 Board Certified Radiologist. This report was verified electronically.
[2016-10-29 05:20] LABS: ALKALINE PHOSPHATASE 208 U/L (45-117); ALT (GPT) 49 U/L (12-78); ANION GAP 6 MEQ/L (5-15); AST (GOT) 38 U/L (15-37); BICARBONATE 31.7 MEQ/L (21.0-32.0); BLOOD UREA NITROGEN 14 MG/DL (7-18); CHLORIDE 99 MEQ/L (98-107); GLOMERULAR FILTRATION RATE 111 ML/MIN (>89); MAGNESIUM 2.2 MG/DL (1.5-2.5); POTASSIUM 3.8 MEQ/L (3.5-5.1); SODIUM (NA) 137 MEQ/L (136-145); TOTAL BILIRUBIN ADULT 0.4 MG/DL (0.2-1.0)
[2016-10-29] MEDS: cloNIDine HCL 0.3 MG TAB PO SCH ×3 (05:25→22:00)
[2016-10-29 07:07] LABS: SCAN/DIFF AUTO DIFF CONFIRMED
[2016-10-29] MEDS: CHLORHEXIDINE 0.12% (ORAL KIT) 15 ML CUP MT SCH ×2 (08:00→20:35)
[2016-10-29] MEDS: WATER IV SCH ×12 (08:26→21:20)
[2016-10-29] MEDS: FOSPHENYTOIN IV SCH ×4 (08:26→21:00)
[2016-10-29] MEDS: DEXTROSE IV SCH ×4 (08:26→21:00)
[2016-10-29] MEDS: DEXTROSE 5% IV SCH ×8 (08:27→21:20)
[2016-10-29] MEDS: CEFTRIAXONE IV SCH ×4 (08:27→21:20)
[2016-10-29] MEDS: FUROSEMIDE 40 MG/4 ML VIAL IV PUSH SCH (08:27)
[2016-10-29] MEDS: SODIUM CHLORIDE 0.9% FLUSH 5 ML FLUSH IVF SCH ×2 (08:28→21:20)
[2016-10-29] MEDS: PANTOPRAZOLE SODIUM 40 MG VIAL IVP SCH (08:28)
[2016-10-29] MEDS: levETIRAcetam 500 MG/5 ML UDC TUBE SCH ×2 (08:28→20:35)
[2016-10-29] MEDS: DOCUSATE SODIUM 100 MG CAP PO SCH ×2 (08:28→21:00)
[2016-10-29] MEDS: POTASSIUM CHLORIDE 25 MEQ EFFERVESCENT TAB TUBE SCH (08:29)
[2016-10-29] MEDS: MAGNESIUM HYDROXIDE SUSP 30 ML CUP PO SCH (08:29)
[2016-10-29] MEDS: MULTIVITAMIN TAB PO SCH (08:29)
[2016-10-29] MEDS: SENNOSIDES SYRUP 8.8 MG/5 ML CUP PO/NG SCH ×2 (08:29→21:00)
[2016-10-29] MEDS: LACTULOSE SYRUP 20 GM/30 ML CUP PO SCH ×3 (08:29→18:32)
[2016-10-29] MEDS: FOLIC ACID 1 MG TAB PO SCH (08:29)
[2016-10-29] MEDS: POLYETHYLENE GLYCOL 17 GM PKG PO SCH ×2 (08:29→20:35)
--- NOTE | 2016-10-29 11:17 | HHI.CCPN ---
Subjective Brief History Elderly male who was brought in as a trauma alert after he fell 10 feet from a ladder. GCS 6 initially at the scene subsequently improved to 11 on arrival in the ER. Patient was evaluated by trauma team and subsequently underwent imaging studies and transferred to the ICU. Imaging studies revealed an occipital skull fracture, subdural and subarachnoid blood. Patient was awake and alert at the time of evaluation and following commands and moving all 4 extremities. He could not hear and had some speech difficulty at the time of my evaluation with difficulty in communication though was following commands appropriately. C spine cleared by Neurosurgery at the time of my evaluation. Patient developed worsening agitation despite Precedex last evening. Since then patient had to be intubated ventilated and is currently on propofol fentanyl and Versed drips to keep him down When these are discontinued or less and patient starts biting on the to and becomes restless moves all [address] scan of the head reveals worsening subdural and subarachnoid hemorrhage and the midline shift of about 8 mm 24 Hour Review/Hospital Course Patient has worsened in last 24 hours Repeat CAT scan reveals worsening subdural bleeding over the right parieto- occipital area and [id number] shift of about 8 mm Patient is elderly and a heavy drinker and therefore has atrophy of the brain so there is some more space that allows for compartment pressure IE ICP to remain low We will discuss with neurosurgery about placing ICP monitor or even draining subdural hematoma at this time. Patient remains hyperventilated and on hypertonic saline nonetheless will require bolt placement to assess for ICP and the effectiveness of the therapy 10/13/2016 Patient neurologically unchanged Repeat CAT scan shows some decrease in subdural hematoma and slight decrease in shift yet still severe brain injury At the family's request a second opinion neurosurgery consult was placed and second neurosurgeon has evaluated the patient She will have a long-term recovery here and have discussed this at length with the family Patient may need tracheostomy and PEG tube placement as the part of the appropriate treatment 10/14/2016 Patient with a severe brain injury and subdural hematoma and intraparenchymal hemorrhage Underwent yesterday ventriculostomy placement ICP is within physiologic range at this time and the subdural hematoma size has somewhat decreased There is no change in the neurologic status over the last 24 hours 10/17/16 No change in neurologic status Patient withdraws to pain but does not open eyes or communicates in anyway All sedation has been removed and ventilatory settings been gradually decreased in order 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 Hypertonic saline was held for profound hypernatremia. EEG showed complete moderate encephalopathy. He will require tracheostomy and gastrostomy tube placement once stable. There was 1 episode of mucous plugging which resolved with aggressive suctioning. 10/23/16 Plan was for tracheostomy today, patient however has elevated ICPs into the 30s We will defer tracheostomy until patient is stable 10/24/16 ICP is improved following administration of neostigmine and a large bowel movement He is likely ready for tracheostomy now, as long as his ICPs remain low Palliative care consult placed for tomorrow, will await input from palliative care and family prior to tracheostomy and feeding tube placement Prognosis at this point remains grim for meaningful recovery 10/25/16 Patient with severe brain injury not showing any signs of neurologic recovery and last few days ICPs remain low apparently throughout the weekend and ventriculostomy has been removed by Dr. Cruz Palliative care consult is greatly appreciated and it helps us tremendously and decision-making and communication as far as this patient's further care is concerned At this point patient's friends appear to be thinking that he is a fighter and according to Dr. Cruz he has chance of meaningful recovery Therefore we will proceed with tracheostomy and PEG placement in next day or 2 10/26/16 No change in current status No neurologic improvement Able to wean the ventilator gradually however due to inability to protect airway patient will need tracheostomy and PEG placement We'll proceed with tracheostomy tomorrow 10/27/16 Patient with the significant head injury remains on the ventilator no change in neurologic status Weaning at this point is inhibited by the fact that patient cannot protect upper airway and due to the low Pawel Coma Scale Patient has undergone tracheostomy today and will have a PEG placed Copious secretions At this point we'll be able to wean as tolerated considering the presence of tracheostomy. 10/29/2016 PTD: 18 Pt is off all sedation. He is still not arousing. Questionable response to painful stimuli. The family will be meeting today with palliative care to discuss goals of care. (Osiris Pittman) Objective Vital Signs Date Time Temp Pulse Resp B/P Pulse Ox O2 Delivery O2 Flow Rate FiO2 10/29/16 10:47 93 40 10/29/16 06:00 81 10/29/16 04:00 100.6 20 123/75 Intake and Output 10/28/16 10/28/16 10/29/16 08:00 16:00 00:00 Intake Total 1205 ml 923 ml 642 ml Output Total 1300 ml 2450 ml 1250 ml Balance -95 ml -1527 ml -608 ml (Osiris Pittman) Result Diagram: 10/29/16 0400 10/29/16 0400 Imaging Last 24 hours Impressions Chest X-Ray 10/29/16 0600 Signed Impressions: Service Date/Time: Saturday, October 29, 2016 03:58 - CONCLUSION: Persistent bilateral lower lung consolidation, left greater than right. Cosmo Abbasi MD Objective Remarks GENERAL: This is a 56 year old male mechanically ventilated. SKIN: Warm and dry. Generalized edema noted. HEAD: Atraumatic. Normocephalic. EYES: PERRLA ENT: No nasal bleeding or discharge. Mucous membranes pink and moist. NECK: Trachea midline. No JVD. CARDIOVASCULAR: Regular rate and rhythm. CM shows sinus rhythm. HR = 80-90. RESPIRATORY: No accessory muscle use. Clear but decreased to auscultation. Breath sounds equal bilaterally. GASTROINTESTINAL: Abdomen soft, non-tender, nondistended. BS + x [address] seal in [address]. Estrella catheter in place to bedside drainage bag with clear yellow urine. MUSCULOSKELETAL: Extremities without cyanosis, or edema. No obvious deformities. + peripheral pulses. NEUROLOGICAL: Mechanically ventilated. Pt has questionable extension to bilateral upper extremities with deep painful stimuli. Appears to withdraw to bilateral lower extremities with deep pain stimuli. (Osiris Pittman) Urinary Catheter Assessment Assessment to: Continue Estrella insert reason: Measure Accurate Output (Osiris Pittman) Vascular Central Line Catheter Vascular Central Line Catheter: Yes Assessment to: Continue Line: Central Venous Catheter Side: Right Location: Subclavian (Osiris Pittman) Assessment and Plan Plan QUINAULT: This is a 56-year-old male who sustained a fall from a ladder of approximately 10 feet. He landed on his head. GCS 3 at the scene, and bystanders performed CPR. PMHx: ETOH (12-15 beers daily) drinks beer with morning coffee, 2 PPD smoker, Hep C INJURIES: SAH SDH Large occipital skull fx Aspiration Assessment and plan by systems: NEUROLOGICAL: Pt is off all sedation. Provide analgesia for comfort and pain - oxycodone via tube Seizure prophylaxis - Keppra, and Cerebyx. HOB elevated 30 degrees Hyponatremia status - NA - 137 + peripheral pulses x 4 extremities. Patient questionably extends to bilateral upper extremities, and withdraws in the lower extremities to deep painful stimuli. CARDIOVASCULAR: HR = 80-90 sinus rhythm. BP = 123/75 Continually monitor for hemodynamic instability (shock and hypotension). BP meds - hydralazine, propranolol, clonidine. Diuretics - Lasix 40 daily with 25 mEq potassium daily Follow CMP Electrolyte protocol in place RESPIRATORY: Vent settings AC 600 / 10 / 40% / +10 Increase PEEP carefully (to assist in oxygenation by recruiting alveoli.) O2 Sats Monitor for hypoxemia Edema status - generalized edema Lung sounds - CTA but decreased throughout. Pulmonary toilet = L&S. Bronchodilators - Breathing treatments duonebs. Chest X-Ray results - persistent bilateral lower lung consolidation, left greater than right Sputum culture - 10/24: Moderate growth of respiratory eric. Antibiotics - Rocephin, Vanco. VAP protocol in place Labs tomorrow Chest X-Ray tomorrow GASTROINTESTINAL: Diet: Jevity at 60 cc/hr Bowel sounds - + x 4 quads. Bowel regimen: Cynthia-Colace, M OM. Lactulose 3 times a day. MiraLAX. Bisacody lPR . LBM: 3/[address] with brown liquid stool. RENAL / URINARY: I&O - -2516 BUN / creat 14 / 0.[address] to bedside drainage bag Urine culture - 10/24: No growth in 48 hours ENDOCRINE: BGM = 86 via AM labs SSI HEMATOLOGY: H&H 9.6 / 28.4 Continue to monitor for signs and symptoms of bleeding. Evaluate need for IVC filter. Transfuse for < 7.0 US Lower extremity study 10/27: No DVT in bilateral legs Monitor patient for any bleeding complications. INFECTIOUS DISEASE: Follow CBC WBC - 20.5 Fevers - low grade fevers Administer antipyretics for temp as needed. Blood cultures 10/24: Negative Urine 10/24 negative Sputum cultures 10/24 negative IV antibiotics : Rocephin and Vanco Monitor pneumonia evolution with repeat chest X-Rays as needed. Maintain vigorous aseptic care of central line to avoid blood stream infections. Consider a consult to ID for further management. PROPHYLAXIS: VAP protocol in place GI : Protonix IV DVT - Mechanical VTE with SCDs. Chemical management contraindicated due to SAH/ SDH. (Awaiting neurosurgery clearance) SKIN: Warm, dry. ACTIVITY: Status - BR PT and OT ordered. CASE MANAGEMENT: Consulted for assist with DC planning. Placement - disposition - TBD. EMOTIONAL SUPPORT: Provided to patient and family. Plan of care discussed. Questions answered to the best of my knowledge. Palliative care has been consult dated and there is a plan for the family to meet with them later today to assist in making goals for care. This patient is currently critically ill and injured, with traumatic brain injury with respiratory failure due to his injuries. He is being managed in the ICU. The trauma team will round, assess and evaluate the patient on a day to day basis. (Osiris Pittman) Attestation Patient with severe neurologic deficit due to the trauma itself and also hypoxic brain injury to follow At the time of the event patient also sustained aspiration which of course turn into infiltrates in both lungs In the face of all of this patient will require long-term care in a residential LTAC setting The exam, history, and the medical decision-making described in the above note were completed with the assistance of the mid-level provider. I reviewed and agree with the findings presented. I attest that I had a [id number] encounter with the patient on the same day, and personally performed and documented my assessment and findings in the medical record. Critical care time 45 minutes. (Sherry Parikh MD) Osiris Pittman Oct 29, 2016 11:17 Sherry Parikh MD Nov 04, 2016 16:55 Celebrex for seizure prophylaxis Pulmonary-continue full ventilator support, will require tracheostomy if family decides to proceed Cardio-stable continue hemodynamic monitoring GI-continue nutritional support, will require gastrostomy tube if family decides to proceed -continue Estrella for hemodynamic monitoring ID-patient is on vancomycin and Rocephin prophylactically, will continue for now FEN-continue nutritional support and replace electrolytes as needed, continue to monitor sodium levels Patient remains critically ill with severe traumatic brain injury and acute respiratory failure due to his injuries. He has a poor prognosis for meaningful recovery and a palliative care consult has been placed for tomorrow. Once the family understands the prognosis, if they wish to continue care he will require tracheostomy and gastrostomy tube placement and eventually transferred to a long-term care facility. Total critical care time 35 minutes Osiris Pittman Oct 29, 2016 11:17
--- NOTE | 2016-10-29 11:34 | HHI.PR ---
Neuropsych Emotional Emotional: UnabletoAssess: Emotional, Anxious/Fearful, Depressed/Sad, Hostile/ Resentful, Irritable/Angry/Frustrate, Labile, Constricted/Blunted Behavior Behavior: Unable to Asses: Behavior, Coping/Acceptance, Cooperative w/ Treatment, Motivation, Frustration Tolerance/[place], Impulsive/Agitated, Suicidal/ Homicidal Risk Cognitive Cognitive: Unable to Asses: Cognitive, Attention/Concentration, Confused/ Orientation, Insight/Awareness, Judgement/Problem-Solving, Memory Progress Notes/Response to Tx Contents of Sessions: Interests Time with Patient: 30 minutes Premorbid psychological status Premorbid Cognitive, Emotional and Behavioral Status: Deferred. 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 The patient has no known psychiatric difficulties. However, substance abuse history is significant for alcohol dependence and tobacco dependence. Behavioral Reactions of Patient and Family/Support System: Tenuous. The patients family has a limited understanding of the complexities of this patient 's brain injury, and the lifestyle barriers that prevent an optimal recovery. They are expected to have ongoing issues of adjustment given the nature of the injury, and this aspect of recovery will require ongoing monitoring. Emotional/Behavioral Status of Patient and Family/Support System: Tenuous. Pertinent issues, if appropriate to this patients clinical care, are described in detail above. Maximizing acute care outcome It is recommended that the patient be monitored for emergent behavioral impulsivity as the medical condition evolves. This patients neuropathological challenges may limit their rehabilitation potential going forward, and these challenges will require specialized therapeutic skills to maximize outcome. Additionally, the patients family is experiencing ongoing issues of adjustment given the traumatic nature of the injury, and they [will need / may benefit] from ongoing psychological assistance. Anticipated Problems Ongoing areas of concern could include behavioral impulsivity, lack of insight and judgment, which is expected to improve with time and treatment, provided he moves past this stage of recovery. Presently, the patient is not following commands. His long duration alcohol dependence and tobacco dependence, which has led to global cerebral atrophy, will serve as a double barrier to his recovery from this injury. Treatment Plan This clinician will continue to follow with you throughout the course of this patients rehabilitation treatment, and I will be available to meet with the patients family/support system to facilitate their understanding and the ongoing care of their family member. The goals of neuropsychological intervention shall be both educational and supportive to the family/support system as is deemed clinically appropriate. [facility] Level: I:No response-total assistance Diagnosis: (1) Major neurocognitive disorder as late effect of traumatic brain injury with behavioral disturbance Status: Acute (2) Alcohol dependence Status: Acute Progress Note Narrative Ongoing follow-up of patient within context of daily trauma rounding and bedside. From the neurobehavioral perspective, this patient is unchanged from the day before. He is off sedation, yet still unresponsive. I was unable to appreciate whether he was able to open his eyes or withdraw from pain, as previously reported. I will continue to follow with you. Kermit Hughes PhD Oct 29, 2016 11:34 am
[2016-10-29] MEDS ORDERED: PHARMACY ORDERED LAB XX ONE (11:45)
--- NOTE | 2016-10-29 13:01 | HHI.NSPN ---
(Viky Bernal) Note Status Status: Progress Note (Viky Bernal) Interval History Interval History 10/19: POD 1 s/p right decompressive craniectomy with evacuation of subdural hematoma. ICPs 22-23 overnight, f/u CT this am shows improved midline shift. currently well sedated. 10/20: POD 2, EEG showed seizures, on Keppra, Neurology evaluation. currently well sedated and intubated. ICPs below 20. 10/21: POD 3, well sedated, ICPs currently at 8. right flap still full and tight. 10/22: POD 4, no changes neuro checks overnight, sedation being weaned. ICPs within normal range. 3: ICPs within normal and stable over the weekend. Withdraws in lower extremities. No eye opening, not following commands. 3: slightly extends in the right upper extremity, continues to remain unresponsive 3: Continues to be intubated, mechanically ventilated. No IV sedation, no eye opening or following commands. Extends in the upper extremities. Ammonia levels normal 10/28: s/p tracheostomy, today he is opening his eyes. right flap still full but softer 10/29: grimaces, but did not open eyes today. (Viky Bernal) Labs, Micro, & Vital Signs Results Date Time Temp Pulse Resp B/P Pulse Ox O2 Delivery O2 Flow Rate FiO2 10/29/16 10:47 93 40 10/29/16 06:00 81 10/29/16 04:00 40 10/29/16 04:00 90 10/29/16 04:00 100.6 90 20 123/75 97 10/29/16 04:00 96 40 10/29/16 02:00 84 10/29/16 00:00 90 10/29/16 00:00 40 10/29/16 00:00 100.6 90 18 120/69 95 10/28/16 23:56 95 50 10/28/16 22:00 90 10/28/16 20:00 40 10/28/16 20:00 90 10/28/16 20:00 100.4 90 18 148/74 98 10/28/16 19:34 98 40 10/28/16 18:00 87 10/28/16 16:01 97 40 10/28/16 16:00 86 10/28/16 16:00 99.8 86 23 137/76 96 10/28/16 16:00 40 10/28/16 14:00 89 10/28/16 13:13 97 40 10/29/16 07:00 Intake Total 1934 ml Output Total 4450 ml Balance -2516 ml Constitutional Vital Signs Date Time Temp Pulse Resp B/P Pulse Ox O2 Delivery O2 Flow Rate FiO2 10/29/16 10:47 93 40 10/29/16 06:00 81 10/29/16 04:00 40 10/29/16 04:00 90 10/29/16 04:00 100.6 90 20 123/75 97 10/29/16 04:00 96 40 10/29/16 02:00 84 10/29/16 00:00 90 10/29/16 00:00 40 10/29/16 00:00 100.6 90 18 120/69 95 10/28/16 23:56 95 50 10/28/16 22:00 90 10/28/16 20:00 40 10/28/16 20:00 90 10/28/16 20:00 100.4 90 18 148/74 98 10/28/16 19:34 98 40 10/28/16 18:00 87 10/28/16 16:01 97 40 10/28/16 16:00 86 10/28/16 16:00 99.8 86 23 137/76 96 10/28/16 16:00 40 10/28/16 14:00 89 10/28/16 13:13 97 40 10/29/16 07:00 Intake Total 1934 ml Output Total 4450 ml Balance -2516 ml (Viky Bernal) Review of Systems/Exam Exam Mr Nixon is intubated, no IV sedation. does not follow commands. Slight grimacing. Right flap is full, soft. Cranial Nerves: Pupils 5 mm equal and sluggish to react b/l, facial grossly symmetric at rest. Bilateral corneal present. Sensorimotor: not following commands for motor testing, he slightly extending in the upper extremity r>l, and slightly withdraws in bilateral lower extremities to local stimuli Plantars equivocal bilaterally, no ankle clonus. Cerebellar: cannot assess due to clinical condition Neck: tracheostomy (Viky Bernal) Medications Current Medications Current Medications Medications (Trade) Dose Ordered Sig/Jony Route PRN Reason Start Time Stop Time Status Last Admin Dose Admin Miscellaneous Information 1 [id number] XX 10/11/16 13:00 10/11/16 13:00 Chlorhexidine Gluconate (Chlorhexidine 2% Cloth) Taper DAILY@04 TOP 10/12/16 04:00 10/08/17 03:59 10/28/16 04:00 Chlorhexidine Gluconate (Chlorhexidine 2% Cloth) 3 pack UNSCH PRN TOP HYGIENIC CARE 10/11/16 13:00 Hydralazine HCl (Apresoline Inj) 10 mg Q2H PRN IV PUSH SBP greater than 150mm Hg 10/11/16 13:30 10/28/16 11:33 Chlorhexidine Gluconate (Peridex 0.12% Liq) 15 ml BID@08,20 MT 10/12/16 08:00 10/29/16 08:00 Magnesium Hydroxide (Milk Of Magnesia Liq) 30 ml DAILY PO 10/12/16 10:00 10/28/16 08:39 Acetaminophen (Tylenol Supp) 650 mg Q4H PRN AR FEVER 10/15/16 12:15 Info 1 UNSCH XX 10/17/16 11:00 IV Flush (NS Flush) 2 ml UNSCH PRN IVF FLUSH AFTER USING IV ACCESS 10/18/16 11:45 IV Flush (NS Flush) 2 ml BID IVF 10/18/16 21:00 10/29/16 08:28 Bisacodyl (Dulcolax Supp) 10 mg DAILY PRN AR CONSTIPATION 10/18/16 11:45 10/18/16 14:36 Docusate Sodium (Colace) 100 mg BID PO 10/18/16 21:00 10/28/16 08:39 Pantoprazole Sodium (Protonix Inj) 40 mg DAILY IVP 10/19/16 09:00 10/29/16 08:28 Ondansetron HCl (Zofran Inj) 4 mg Q6H PRN IV NAUSEA OR VOMITING 10/18/16 11:45 Calcium Gluconate 1 gm 1 gm UNSCH PRN IV SEE LABEL COMMENTS 10/18/16 11:45 Potassium Chloride 100 ml @ 50 mls/hr UNSCH PRN IV POTASSIUM LESS THAN 4 10/18/16 11:45 10/25/16 09:35 Magnesium Sulfate/ Sodium Chloride (Magnesium Sulfate Inj/NS Inj) 108 ml @ 108 mls/hr UNSCH PRN IV MAGNESIUM LESS THAN 2 10/18/16 11:45 Acetaminophen 650 mg 650 mg Q4H PRN PO TEMPERATURE > 101.5 F 10/18/16 11:45 10/28/16 12:24 Pharmacy Profile Note (Vancomycin Consult Pharmacy) 0 ml @ 0 mls/hr UNSCH OTHER 10/19/16 07:45 Lactulose (Lactulose Liq) 30 ml TID PO 10/21/16 13:00 10/28/16 08:39 Polyethylene Glycol (Miralax) 17 gm BID PO 10/21/16 11:00 10/28/16 08:39 Propranolol HCl (Inderal) 20 mg Q6HR PO 10/22/16 18:00 10/29/16 00:37 Labetalol HCl (Trandate Inj) 20 mg Q1H PRN IV PUSH sbp > 140 10/22/16 16:45 10/28/16 11:45 Clonidine 0.3 mg 0.3 mg Q8HR PO 10/22/16 16:42 10/29/16 05:25 Fosphenytoin Sodium 200 mgpe/ Dextrose 54 ml @ 216 mls/hr Q12HR IV 10/22/16 21:00 10/29/16 08:26 Thiamine HCl 100 mg/Dextrose 101 ml @ 100 mls/hr Q24H IV 10/23/16 20:00 10/28/16 21:13 Ceftriaxone Sodium/Dextrose (Rocephin Inj/ D5W 100 ml Inj) 100 ml @ 200 mls/hr Q12H IV 10/23/16 08:00 10/29/16 08:27 Folic Acid (Folate) 1 mg DAILY PO 10/25/16 09:00 10/28/16 08:39 Multivitamins (Theragran) 1 tab DAILY PO 10/25/16 09:00 10/28/16 08:39 Sennosides (Senna Liq) 8.8 mg BID PO/NG 10/24/16 21:00 10/28/16 08:39 Oxycodone HCl (Roxicodone Intensol Liq) 5 mg Q4H PRN PO pain 4-6 10/24/16 12:30 Oxycodone HCl (Roxicodone Intensol Liq) 10 mg Q4H PRN PO pain 7-10 10/24/16 12:30 10/28/16 12:11 Furosemide (Lasix Inj) 40 mg DAILY IV PUSH 10/26/16 09:00 10/29/16 08:27 Potassium Bicarb/ Potassium Chloride 25 meq 25 meq DAILY TUBE 10/26/16 09:00 10/28/16 09:12 Vancomycin HCl/ Dextrose (Vancomycin Inj/ D5W Inj) 517.5 ml @ 257.5 mls/ hr Q18H IV 10/26/16 12:00 10/28/16 19:05 Levetriacetam (Keppra Liq) 1,500 mg Q12HR TUBE 10/27/16 21:00 10/29/16 08:28 (Viky Bernal) Medical Decision Making MDM Remarks 56 y/o male s/p right decompressive craniectomy with evacuation of SDH, placement of ICP monitor, postop CT Brain with improved midline shift ICP monitor discontinued 10/25 (Viky Bernal) Plan Plan Remarks cont vent weaning as tolerated cont critical care management dc scalp marisela 11/01/16 (Viky Bernal) Attending Statement The exam, history, and the medical decision-making described in the above note were completed with the assistance of the mid-level provider. I reviewed and agree with the findings presented. I attest that I had a [id number] encounter with the patient on the same day, and personally performed and documented my assessment and findings in the medical record. (Chetan Cruz MD) Viky Bernal Oct 29, 2016 13:01 Chetan Cruz MD Oct 29, 2016 18:59
--- NOTE | 2016-10-29 13:47 | GIPROC ---
[facility] [address] [facility]. [facility], [address] EGD PROCEDURE REPORT EXAM DATE: 10/29/2016 PATIENT NAME: Heath Nixon MR #: [id number] BIRTHDATE: 1960 ATTENDING: Demarco Cordoba MD ORDER #: [id number] SOLDERING TECHNICIAN: Luisa Lindsay and Milad Velazquez STATUS: inpatient INDICATIONS: The patient is a 56 yr old male here for an EGD due to dysphagia PROCEDURE PERFORMED: EGD w/ percutaneous gastrostomy tube placement MEDICATIONS: Per Anesthesia and None. TOPICAL ANESTHETIC: CONSENT: The patient understands the risks and benefits of the procedure and understands that these risks include, but are not limited to: sedation, allergic reaction, infection, perforation and/or bleeding. Alternative means of evaluation and treatment include, among others: physical exam, x-rays, and/or surgical intervention. The patient elects to proceed with this endoscopic procedure. medical equipment was checked for proper function. Hand hygiene and appropriate measures for infection prevention was taken. After the risks, benefits and alternatives of the procedure were thoroughly explained, Informed consent was verified, confirmed and timeout was successfully executed by the treatment team. The patient was anesthetized with topical anesthesia and the Pentax EG-[id number] endoscope was introduced through the mouth and advanced to the second portion of the duodenum. Retroflexed views revealed no abnormalities The gastroscope was then slowly withdrawn and removed. STOMACH: There was mild gastritis in the gastric antrum. 20 Fr gastrostomy tube placed. ADVERSE EVENTS: There were no complications. IMPRESSIONS: 1. There was mild gastritis in the gastric antrum 2. Retroflexed views revealed no abnormalities RECOMMENDATIONS: PEG recomendations: 1- NPO for 6 hours except for meds 2- Flush PEG tube every 6 hours with water and after each PEG feeding 3- May resume regular diet in the morning 4- May use Ensure or Boost etc. for PEG tube feeding PATIENT CONDITION: stable DISPOSITION: Inpatient REPEAT EXAM: Return as needed for EGD Demarco Cordoba MD eSigned: Demarco Cordoba MD 10/29/2016 1:46 PM cc: CPT CODES: 59705 Upper gastrointestinal endoscopy including esophagus, stomach, and either the duodenum and/or jejunum as appropriate; with directed placement of percutaneous gastrostomy tube ICD CODES: R13.10 Dysphagia,unspecified The ICD and CPT codes recommended by this software are interpretations from the data that the clinical staff has captured with the software. The verification of the translation of this report to the ICD and CPT codes and modifiers is the sole responsibility of the health care institution and practicing physician where this report was generated. [employer] will not be held responsible for the validity of the ICD and CPT codes included on this report. AMA assumes no liability for data contained or not contained herein. CPT is a registered trademark of the [employer]. PATIENT NAME: Heath Nixon MR#: [id number]
[2016-10-29 13:52] LABS: VANCOMYCIN TROUGH 11.4 MCG/ML (5.0-10.0)
[2016-10-29] MEDS: VANCOMYCIN IV SCH ×2 (14:35)
[2016-10-29] MEDS ORDERED: PROPOFOL 200 MG/20 ML AMP IV ONE (17:43)
--- NOTE | 2016-10-29 18:13 | HHI.HCPN ---
Reason for visit a. To assist with evaluation and management of symptoms including: encephalopathy; dyspnea; pain; constipation b. To assist medical decision maker(s) with: better understanding of current medical conditions; weighing benefits/burdens of medical treatment options; making medical treatment decisions. . Subjective/Interval History Patient remains mechanically ventilated s/p tracheostomy 10/27/16.. Patient is off sedation, remains minimally responsive. He did not open his eyes or follow commands. Patient intermittently grimaces to noxious stimuli. Patient has been tolerating Jevity 1.5 at 60 mL's per hour via OG tube. GI has been consulted and PEG tube placement planned for today. Albumin 1.5. Febrile. T-max 100.7 today. Blood cultures and urine cultures remain negative to date. Worsening leukocytosis, WBC increased to 20.5 today. Follow up chest x -ray today showing persistent bilateral lower lung consolidation, left greater than right. . Family/friend interactions Met with patient's sister, cousin, best friend and fiance and family conference room. Patient is described by family and friends as a gregarious, independent, living individual. Reviewed patient's hospital current course in clinic current clinical condition. The patient's family remains cautiously optimistic, hopeful the patient will have some neurological recovery. However, they all agree the patient would not want to be kept alive artificially if he will not regain the ability to at minimum communicate with others. They have requested to speak with neurosurgery to discuss what level of neurological recovery neurosurgery anticipates in this patient and in what timeframe recovery may occur. Viky BRAMBILA is aware of family request. . Advance Directives Living Will: Never completed Health Care Surrogate: Never completed Durable Power of Metal Roaster: Never completed Advance Directive Specifics Date completed: Advanced directives were never completed. . Health Care Surrogate(s): There is no written designation of a health care surrogate. . Documented care wishes: No written documentation of health care preferences/goals/wishes . Objective Vital Signs Date Time Temp Pulse Resp B/P Pulse Ox O2 Delivery O2 Flow Rate FiO2 10/29/16 17:26 96 40 10/29/16 16:00 105 10/29/16 16:00 40 10/29/16 16:00 99.9 105 21 128/70 92 10/29/16 14:32 95 40 10/29/16 14:00 101 10/29/16 12:00 100 3/10/17 12:00 40 10/29/16 12:00 100.7 101 21 124/72 94 10/29/16 10:47 93 40 10/29/16 10:00 100 10/29/16 08:00 99.0 93 21 118/73 93 10/29/16 08:00 93 10/29/16 08:00 40 10/29/16 06:00 81 10/29/16 04:00 40 10/29/16 04:00 90 10/29/16 04:00 100.6 90 20 123/75 97 10/29/16 04:00 96 40 10/29/16 02:00 84 10/29/16 00:00 90 10/29/16 00:00 40 10/29/16 00:00 100.6 90 18 120/69 95 10/28/16 23:56 95 50 10/28/16 22:00 90 10/28/16 20:00 40 10/28/16 20:00 90 10/28/16 20:00 100.4 90 18 148/74 98 10/28/16 19:34 98 40 10/28/16 18:00 87 Intake & Output 10/29/16 10/29/16 07:00 19:00 Intake Total 1011 ml 300 ml Output Total 2000 ml 1800 ml Balance -989 ml -1500 ml IV Total 831 ml 180 ml Other 180 ml 120 ml Output Urine Total 1900 ml 1800 ml Stool Total 100 ml 0 ml . Physical Exam CONSTITUTIONAL/GENERAL: This is an adequately nourished patient mechanically ventilated s/p tracheostomy on 10/27/16. Patient remains minimally responsive, in a surgical intensive care unit bed. TUBES/LINES/DRAINS: Tracheostomy; orogastric tube; Gann catheter; SCDs; PODUS boots; right radial arterial line; right subclavian central line; rectal tube SKIN: No jaundice,or lesions. There is a generalized erythematous maculopapular rash that is prominent of arms and chest. There is a healing right craniotomy surgical wound without signs or symptoms of infection.. Skin temperature appropriate. Not diaphoretic. HEAD: s/p craniotomy, right skull flap is full and soft. EYES: Pupils equal 5mm and round and sluggish. No scleral icterus. No injection or drainage. Fundi not examined. ENT: Unable to assess hearing. Nose without bleeding or purulent drainage. NECK: Trachea midline. Obesedifficult to evaluate. CARDIOVASCULAR: Regular rate and rhythm without murmurs, gallops, or rubs. RESPIRATORY/CHEST: Tracheostomy to mechanical ventilator. Breath sounds equal bilaterally, diminished in lower lobes. GASTROINTESTINAL: Abdomen slightly firm. No guarding. Bowel sounds present. GENITOURINARY: Without palpable bladder distension. Gann catheter in place. Significant penile and scrotal edema are present. MUSCULOSKELETAL: Extremities without clubbing, cyanosis. No mottling or clubbing. NEUROLOGICAL: Patient does not awaken to voice or exam. No spontaneous movements noted. Appears to withdraw bilateral lower extremity slightly to deep painful stimuli. PSYCHIATRIC: Unable to assess due to level of responsiveness. . Diagnostic Tests Laboratory Laboratory Tests Test 10/27/16 10/28/16 10/28/16 10/29/16 05:18 06:00 17:46 04:00 White Blood Count 12.4 TH/MM3 17.0 TH/MM3 20.5 TH/MM3 (4.0-11.0) (4.0-11.0) (4.0-11.0) Red Blood Count 2.90 MIL/MM3 2.90 MIL/MM3 2.95 MIL/MM3 (4.50-5.90) (4.50-5.90) (4.50-5.90) Hemoglobin 9.4 GM/DL 9.4 GM/DL 9.6 GM/DL (13.0-17.0) (13.0-17.0) (13.0-17.0) Hematocrit 27.8 % 27.7 % 28.4 % (39.0-51.0) (39.0-51.0) (39.0-51.0) Mean Corpuscular Volume 95.8 FL 95.5 FL 96.1 FL (80.0-100.0) (80.0-100.0) (80.0-100.0) Mean Corpuscular Hemoglobin 32.5 PG 32.3 PG 32.5 PG (27.0-34.0) (27.0-34.0) (27.0-34.0) Mean Corpuscular Hemoglobin 33.9 % 33.8 % 33.8 % Concent (32.0-36.0) (32.0-36.0) (32.0-36.0) Red Cell Distribution Width 14.0 % 13.7 % 13.8 % (11.6-17.2) (11.6-17.2) (11.6-17.2) Platelet Count 286 TH/MM3 276 TH/MM3 300 TH/MM3 (150-450) (150-450) (150-450) Mean Platelet Volume 8.2 FL 8.3 FL 8.5 FL (7.0-11.0) (7.0-11.0) (7.0-11.0) Neutrophils (%) (Auto) 76.5 % 78.0 % 79.3 % (16.0-70.0) (16.0-70.0) (16.0-70.0) Lymphocytes (%) (Auto) 8.7 % 8.3 % 7.9 % (9.0-44.0) (9.0-44.0) (9.0-44.0) Monocytes (%) (Auto) 12.1 % 11.6 % 10.6 % (0.0-8.0) (0.0-8.0) (0.0-8.0) Eosinophils (%) (Auto) 2.1 % (0.0-4.0) 1.6 % (0.0-4.0) 1.8 % (0.0-4.0) Basophils (%) (Auto) 0.6 % (0.0-2.0) 0.5 % (0.0-2.0) 0.4 % (0.0-2.0) Neutrophils # (Auto) 9.5 TH/MM3 13.2 TH/MM3 16.3 TH/MM3 (1.8-7.7) (1.8-7.7) (1.8-7.7) Lymphocytes # (Auto) 1.1 TH/MM3 1.4 TH/MM3 1.6 TH/MM3 (1.0-4.8) (1.0-4.8) (1.0-4.8) Monocytes # (Auto) 1.5 TH/MM3 2.0 TH/MM3 2.2 TH/MM3 (0-0.9) (0-0.9) (0-0.9) Eosinophils # (Auto) 0.3 TH/MM3 0.3 TH/MM3 0.4 TH/MM3 (0-0.4) (0-0.4) (0-0.4) Basophils # (Auto) 0.1 TH/MM3 0.1 TH/MM3 0.1 TH/MM3 (0-0.2) (0-0.2) (0-0.2) CBC Comment DIFF FINAL DIFF FINAL AUTO DIFF Differential Comment AUTO DIFF CONFIRMED Sodium Level 142 MEQ/L 141 MEQ/L 137 MEQ/L (136-145) (136-145) (136-145) Potassium Level 3.8 MEQ/L 3.6 MEQ/L 3.8 MEQ/L (3.5-5.1) (3.5-5.1) (3.5-5.1) Chloride Level 107 MEQ/L 103 MEQ/L 99 MEQ/L (98-107) (98-107) (98-107) Carbon Dioxide Level 29.9 MEQ/L 28.3 MEQ/L 31.7 MEQ/L (21.0-32.0) (21.0-32.0) (21.0-32.0) Anion Gap 5 MEQ/L (5-15) 10 MEQ/L (5-15) 6 MEQ/L (5-15) Blood Urea Nitrogen 19 MG/DL (7-18) 16 MG/DL (7-18) 14 MG/DL (7-18) Creatinine 0.75 MG/DL 0.75 MG/DL 0.73 MG/DL (0.60-1.30) (0.60-1.30) (0.60-1.30) Estimat Glomerular Filtration 107 ML/MIN 107 ML/MIN 111 ML/MIN Rate (>89) (>89) (>89) Random Glucose 117 MG/DL 116 MG/DL 86 MG/DL (74-106) (74-106) (74-106) Calcium Level 8.1 MG/DL 8.3 MG/DL 8.2 MG/DL (8.5-10.1) (8.5-10.1) (8.5-10.1) Phosphorus Level 3.1 MG/DL 3.4 MG/DL (2.5-4.9) (2.5-4.9) Magnesium Level 2.2 MG/DL 2.2 MG/DL (1.5-2.5) (1.5-2.5) Total Bilirubin 0.3 MG/DL 0.4 MG/DL (0.2-1.0) (0.2-1.0) Aspartate Amino Transf 41 U/L (15-37) 38 U/L (15-37) (AST/SGOT) Alanine Aminotransferase 55 U/L (12-78) 49 U/L (12-78) (ALT/SGPT) Alkaline Phosphatase 207 U/L 208 U/L (45-117) (45-117) Total Protein 6.4 GM/DL 6.8 GM/DL (6.4-8.2) (6.4-8.2) Albumin 1.5 GM/DL 1.5 GM/DL (3.4-5.0) (3.4-5.0) Vancomycin Level Trough 12.9 MCG/ML (5.0-10.0) Test 10/29/16 13:00 Vancomycin Level Trough 11.4 MCG/ML (5.0-10.0) Phenytoin (Dilantin) Level 2.2 MCG/ML (10.0-20.0) Result Diagram: 10/29/16 0400 10/29/16 0400 Procedures * [place] hole with ICP monitor placed * Right craniectomy * Art line placement * Intubation/mechanical ventilation * Central line placement. * Tracheostomy . Assessment and Plan Disease Oriented Problem List: (1) Traumatic brain injury (2) SAH (subarachnoid hemorrhage) (3) Subdural hemorrhage following injury (4) Fracture of occipital bone of skull with loss of consciousness (5) Encephalopathy acute (6) Alcohol dependence Comment: Long history of 12-15 drinks per day. . (7) Major neurocognitive disorder as late effect of traumatic brain injury with behavioral disturbance (8) Seizure (9) Pneumonia Comment: Probable aspiration. Blood in vomitus were in airway immediately after fall. . (10) Hepatitis C antibody positive in blood (11) Rectal bleeding Comment: Has had years of abdominal pain with intermittent rectal bleeding. Has avoided recommended work-up due to lack on insurance, lack of funds, and fear of results (per fibethany). . Symptom Scale: (1) Pain 0-10 Scale: Unable to quantify Comment: Patient had history of several pain syndromes. He complained of abdominal pain for years with occasional rectal bleeding. He also complained of right ankle pain where he had surgery and achiness in multiple joints. He would use BC powders several times a day and occasionally hydrocodone. Other current sources of pain might include prolonged bedbound status, post op wound/ head pain, discomfort from trach/gann/OG/vascular access lines. Orders are in place for PRN oxycodone at this time. These appear to be adequate. No further recommendations at this time. . (2) Dyspnea Comment: Patient with probable aspiration pneumonia. Vomitus and blood were in mouth at time of fall. Sputum culture grew out H. flu. Patient also has anasarca and may have a component of pulmonary edema. Dyspnea appears adequately controlled with vent support, antibiotics, and diuretics. Weaning from mechanical ventilator was inhibited secondary to patient's inability to protect his upper airway. Will attempt to wean patient status post tracheostomy placement 10/27/16. . (3) Encephalopathy 0-10 Scale: Unable to quantify Comment: This has been multi-factorial and has involved the brain injury, alcohol withdrawal, infection, seizure, etc. Current encephalopathy now mostly due to brain injury. Encephalopathy persists off sedation. Will continue to support patient as brain is given a chance to heal. No further recommendations at this time. . (4) Constipation Pertinent Non-Medical Issues Psychosocial: Social support consists of amye, brother, sister and friend - - Patricio Oleary. Spiritual: Mandaen background. Mandaeism and spirituality have not played an important role in his life. [place]asta appreciates printing plate clerk visits. Legal: No advance directives. Without a designated health care surrogate, decision-making appears to fall to the majority of his siblings. Ethical issues impacting care: Patient is incapacitated to make his own health care decisions. It is unclear if/when he will regain capacity. . Important Contacts * Brandy Workman (spouse) [phone] * Amanda "Manuela"reynold (sister) - heatl care proxy: * Perez Schroeder" (brother) [phone] * Amanda "Jamila" Ubaldo (niece) [phone] . 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 It is unclear if he had some sort of event causing the fall (he had vomitus and blood in his airway at time of fall) or merely fell. His injuries include occipital bone fracture, SDH, SAH. Complications include EtOH withdrawal, aspiration pneumonia. He has had high ICPs and ultimately underwent right sided craniectomy for decompression. He has had seizure activity. There has been little evidence so far of meaningful neurological recovery. Neurosurgery feels there continues to be a reasonable chance of meaningful neurologic recovery (though it will take a lot of time) and is recommending ongoing aggressive care. . Code Status: Full Code Plan == Code Status: FULL CODE == Decision making: Mr. Nixon is incapacitated to make his own health care decisions and it is unclear if/when he will regain capacity. Patient is not legally , has no children, and the parents who adopted him are . Under the [place] Statutes, decision making would fall to the patient's adoptive siblings -- Amanda and Demarco. Demarco has agreed to defer decision making to Amanda so AMANDA IS THE OFFICIAL PROXY DECISION MAKER per my phone conversation with Demarco on 10/26/16 at 13:25. The patient's fiancee -- Brandy Workman -- has no decision making authority, but the siblings are including her in the conversations. == Goals of medical treatment: The patient's family remains cautiously optimistic, hopeful the patient will have some neurological recovery. However, they all agree the patient would not want to be kept alive artificially if he will not regain the ability to at minimum communicate with others. Goals remain aggressive at this time-ending conversation with neurosurgery. They have requested to speak with neurosurgery to discuss what level of neurological recovery neurosurgery anticipates in this patient and in what timeframe recovery may occur. == Family requesting to speak to neurosurgery: Dr. Curz had previously indicated that patient had a chance for meaningful recovery. Family wanted to give the patient the opportunity to heal. They have not requested to speak to neurosurgery to discuss what level of neurological recovery neurosurgery anticipates in this patient and what timeframe recovery may occur. Viky BRAMBILA is aware of family request. Discussed with patient's nurse. Like to give the patient and opportunity to heal but stated the patient would not want to live dependent on artificial life support. They support full code status. Tracheostomy was placed 10/27/16 and GI has been consulted to evaluate for PEG tube placement.. They will reconsider in the future if patient has additional setbacks or does not show signs of improvement. == Status post tracheostomy on 10/28/16 and PEG tube placement on 10/29/16. == Encephalopathy: This has been multi-factorial and has involved the brain injury, alcohol withdrawal, infection, seizure, etc. Current encephalopathy now mostly due to brain injury. Encephalopathy persists off sedation. Will continue to support patient as brain is given a chance to heal. No further recommendations at this time. == Pain: Patient had history of several pain syndromes. He complained of abdominal pain for years with occasional rectal bleeding. He also complained of right ankle pain where he had surgery and achiness in multiple joints. He would use BC powders several times a day and occasionally hydrocodone. Other current sources of pain might include prolonged bedbound status, post op wound/ head pain, discomfort from trach/gann/OG/vascular access lines. Orders are in place for PRN oxycodone at this time. These appear to be adequate. No further recommendations at this time. == Dyspnea: Patient with probable aspiration pneumonia. Vomitus and blood were in mouth at time of fall. Sputum culture grew out H. flu. Patient also has anasarca and may have a component of pulmonary edema. Dyspnea appears adequately controlled with vent support, antibiotics, and diuretics. Patient had at least a 2 week history of significant right leg swelling from ankle to knee prior to collapse/fall - ultrasound showing no DVT in either lower extremity. May want to consider checking for DVT/PE. Weaning from mechanical ventilator was inhibited secondary to patient's inability to protect his upper airway. Will attempt to wean patient status post tracheostomy placement . Follow up chest x-ray today showing persistent bilateral lower lung consolidation, left greater than right. == Constipation: Bowels now appear to be moving adequately. Now on scheduled senna. No further recommendations at this time. == Rash: Probably infection vs drug reaction. I don't see any newly started drugs, but may have developed a sensitivity to one of his antibiotics or other drug. == Seizures: Now controlled with levitiracetam and fosphenytoin. No further recommendations at this time. == Hx of rectal bleeding with strong family history of GI cancer -- Bleeding may be due to EtOH abuse and frequent use of BC powders. However, probably should have GI endoscopy when stable. == Palliative care will continue to follow to assist with symptom management and to further clarify goals of medical treatment as the clinical course evolves -met with patient's fianc, sister, cousin and best friend on 10/29/16 to further clarify . medical treatment goals of care. . Attestation To help prompt me to consider important information that might be impacting today's encounter and assessment, information from prior notes written by myself or my colleagues may have been "brought forward" into today's note. My signature on this note, however, is an attestation that I personally performed the exam, history, and/or decision-making noted today, and, unless otherwise indicated, the interactions with patient, family, and staff as well as the review of records all occurred today. I also attest that the listed assessment and stated plan reflect my best clinical judgment today based on the combination of historical information, prior notes, and today's exam/ interactions. When time spent is documented, it refers only to time spent today by the signer, or if indicated, combined time spent today by collaborating physician/nurse practitioner. . Татьяна Hauser Oct 29, 2016 18:13 today by the signer, or if indicated, combined time spent today by collaborating physician/nurse practitioner. . Татьяна Hauser Oct 29, 2016 18:13
[2016-10-29] MEDS: ACETAMINOPHEN 325 MG TAB PO PRN (20:36)
[2016-10-29] MEDS: THIAMINE IV SCH ×2 (21:20)
[2016-10-30] VITALS (19 sets, daily range): BP systolic 114–152; BP diastolic 65–82; PULSE 81–104; RESP 16–26; TEMP 99.6–101.3; O2SAT 35–100
[2016-10-30] MEDS: DEXTROSE 5% IV SCH ×10 (03:00→20:19)
[2016-10-30] MEDS: VANCOMYCIN IV SCH ×4 (03:00→15:01)
[2016-10-30] MEDS: WATER IV SCH ×14 (03:00→20:19)
[2016-10-30] MEDS: CHLORHEXIDINE GLUCONATE 2 % 1 PACK (2 CLOTHS) TOP SCH ×2 (04:00→20:12)
--- NOTE | 2016-10-30 05:54 | RADRPT ---
EXAM DATE/TIME: 10/30/2016 04:17 [facility] COMPARISON: CHEST SINGLE AP, October 29, 2016, 3:58. INDICATIONS : Shortness of breath. MEDICAL HISTORY : Hypertension. Arthritis. Smoker. SURGICAL HISTORY : None. ENCOUNTER: Subsequent ACUITY: 2 weeks PAIN SCORE: Non-responsive. LOCATION: Bilateral chest FINDINGS: Tracheostomy and right central line stable. There is persisting consolidation in the left lower lung and hazy opacities in the right lower lung, similar in severity and appearance compared to prior exa m. The heart is normal size.. CONCLUSION: Persistent left lower lung consolidation and hazy opacities in the right lower lung. Cosmo Abbasi MD on October 30, 2016 at 5:52 Board Certified Radiologist. This report was verified electronically.
[2016-10-30] MEDS: PROPRANOLOL HCL 20 MG TAB PO SCH ×3 (06:00→17:18)
[2016-10-30] MEDS: cloNIDine HCL 0.3 MG TAB PO SCH ×3 (06:00→20:20)
[2016-10-30 06:05] LABS: HEMATOCRIT 26.4 % (39.0-51.0); MEAN CELL VOLUME 94.3 FL (80.0-100.0); MEAN CORPUSCULAR HEMOGLOBIN 31.8 PG (27.0-34.0); MEAN CORPUSCULAR HGB CONC 33.8 % (32.0-36.0); PLATELET COUNT 342 TH/MM3 (150-450); RED CELL DISTRIBUTION WIDTH 13.6 % (11.6-17.2); REVIEW FLAG FINAL; WHITE BLOOD COUNT 17.7 TH/MM3 (4.0-11.0)
[2016-10-30 06:17] LABS: BLOOD GAS BASE EXCESS 2.6 mmol/L (-2-2); BLOOD GAS CARBOXYHEMOGLOBIN 1.3 % (0-4); BLOOD GAS HCO3 26 mmol/L (22-26); BLOOD GAS METHEMOGLOBIN 0.6 % (0-2); BLOOD GAS O2 HGB SATURATION 92 % (90-100); BLOOD GAS PCO2 34 mmHg (38-42); BLOOD GAS PO2 70 mmHg (61-120); BLOOD GAS TOTAL HGB 9.2 G/DL (12.0-16.0); CRITICAL VALUE NO; OXYGEN DEVICE VENTILATOR; TEMP CORR TO 98.6
[2016-10-30 06:18] LABS: DRAW SITE RT RADIAL; FIO2 40 %; NUMBER OF ARTERIAL PUNCTURES 1; STAT NO; ULNAR PULSE PRESENT; VENT SETTINGS PRVC
[2016-10-30 06:29] LABS: BICARBONATE 27.4 MEQ/L (21.0-32.0); MAGNESIUM 2.2 MG/DL (1.5-2.5); POTASSIUM 3.5 MEQ/L (3.5-5.1)
[2016-10-30] MEDS: CHLORHEXIDINE 0.12% (ORAL KIT) 15 ML CUP MT SCH ×2 (08:37→20:00)
[2016-10-30] MEDS: CEFTRIAXONE IV SCH ×4 (08:39→20:19)
[2016-10-30] MEDS: MAGNESIUM HYDROXIDE SUSP 30 ML CUP PO SCH (08:47)
[2016-10-30] MEDS: POLYETHYLENE GLYCOL 17 GM PKG PO SCH ×2 (08:47→20:11)
[2016-10-30] MEDS: DOCUSATE SODIUM 100 MG CAP PO SCH ×2 (08:47→20:11)
[2016-10-30] MEDS: LACTULOSE SYRUP 20 GM/30 ML CUP PO SCH ×3 (08:47→16:35)
[2016-10-30] MEDS: SENNOSIDES SYRUP 8.8 MG/5 ML CUP PO/NG SCH ×2 (08:48→20:12)
[2016-10-30] MEDS: SODIUM CHLORIDE 0.9% FLUSH 5 ML FLUSH IVF SCH ×2 (08:52→20:20)
[2016-10-30] MEDS: PANTOPRAZOLE SODIUM 40 MG VIAL IVP SCH (08:52)
[2016-10-30] MEDS: FUROSEMIDE 40 MG/4 ML VIAL IV PUSH SCH (08:52)
[2016-10-30] MEDS: levETIRAcetam 500 MG/5 ML UDC TUBE SCH ×2 (08:53→20:20)
[2016-10-30] MEDS: POTASSIUM CHLORIDE 25 MEQ EFFERVESCENT TAB TUBE SCH (08:53)
[2016-10-30] MEDS: FOLIC ACID 1 MG TAB PO SCH (08:53)
[2016-10-30] MEDS: MULTIVITAMIN TAB PO SCH (08:57)
[2016-10-30] MEDS: FOSPHENYTOIN IV SCH ×4 (08:57→20:19)
[2016-10-30] MEDS: DEXTROSE IV SCH ×4 (08:57→20:19)
[2016-10-30] MEDS: ACETAMINOPHEN 325 MG TAB PO PRN ×2 (11:45→20:20)
--- NOTE | 2016-10-30 12:04 | HHI.CCPN ---
Subjective Brief History Elderly male who was brought in as a trauma alert after he fell 10 feet from a ladder. GCS 6 initially at the scene subsequently improved to 11 on arrival in the ER. Patient was evaluated by trauma team and subsequently underwent imaging studies and transferred to the ICU. Imaging studies revealed an occipital skull fracture, subdural and subarachnoid blood. Patient was awake and alert at the time of evaluation and following commands and moving all 4 extremities. He could not hear and had some speech difficulty at the time of my evaluation with difficulty in communication though was following commands appropriately. C spine cleared by Neurosurgery at the time of my evaluation. Patient developed worsening agitation despite Precedex last evening. Since then patient had to be intubated ventilated and is currently on propofol fentanyl and Versed drips to keep him down When these are discontinued or less and patient starts biting on the to and becomes restless moves all [address] scan of the head reveals worsening subdural and subarachnoid hemorrhage and the midline shift of about 8 mm 24 Hour Review/Hospital Course Patient has worsened in last 24 hours Repeat CAT scan reveals worsening subdural bleeding over the right parieto- occipital area and [id number] shift of about 8 mm Patient is elderly and a heavy drinker and therefore has atrophy of the brain so there is some more space that allows for compartment pressure IE ICP to remain low We will discuss with neurosurgery about placing ICP monitor or even draining subdural hematoma at this time. Patient remains hyperventilated and on hypertonic saline nonetheless will require bolt placement to assess for ICP and the effectiveness of the therapy 10/13/2016 Patient neurologically unchanged Repeat CAT scan shows some decrease in subdural hematoma and slight decrease in shift yet still severe brain injury At the family's request a second opinion neurosurgery consult was placed and second neurosurgeon has evaluated the patient She will have a long-term recovery here and have discussed this at length with the family Patient may need tracheostomy and PEG tube placement as the part of the appropriate treatment 10/14/2016 Patient with a severe brain injury and subdural hematoma and intraparenchymal hemorrhage Underwent yesterday ventriculostomy placement ICP is within physiologic range at this time and the subdural hematoma size has somewhat decreased There is no change in the neurologic status over the last 24 hours 10/17/16 No change in neurologic status Patient withdraws to pain but does not open eyes or communicates in anyway All sedation has been removed and ventilatory settings been gradually decreased in order to allow for the patient to pickle pumper his respirations 10/22/16 Patient's neurologic exam remains unchanged. Hypertonic saline was held for profound hypernatremia. EEG showed complete moderate encephalopathy. He will require tracheostomy and gastrostomy tube placement once stable. There was 1 episode of mucous plugging which resolved with aggressive suctioning. 10/23/16 Plan was for tracheostomy today, patient however has elevated ICPs into the 30s We will defer tracheostomy until patient is stable 10/24/16 ICP is improved following administration of neostigmine and a large bowel movement He is likely ready for tracheostomy now, as long as his ICPs remain low Palliative care consult placed for tomorrow, will await input from palliative care and family prior to tracheostomy and feeding tube placement Prognosis at this point remains grim for meaningful recovery 10/25/16 Patient with severe brain injury not showing any signs of neurologic recovery and last few days ICPs remain low apparently throughout the weekend and ventriculostomy has been removed by Dr. Cruz Palliative care consult is greatly appreciated and it helps us tremendously and decision-making and communication as far as this patient's further care is concerned At this point patient's friends appear to be thinking that he is a fighter and according to Dr. Cruz he has chance of meaningful recovery Therefore we will proceed with tracheostomy and PEG placement in next day or 2 10/26/16 No change in current status No neurologic improvement Able to wean the ventilator gradually however due to inability to protect airway patient will need tracheostomy and PEG placement We'll proceed with tracheostomy tomorrow 10/27/16 Patient with the significant head injury remains on the ventilator no change in neurologic status Weaning at this point is inhibited by the fact that patient cannot protect upper airway and due to the low Pawel Coma Scale Patient has undergone tracheostomy today and will have a PEG placed Copious secretions At this point we'll be able to wean as tolerated considering the presence of tracheostomy. 10/29/2016 PTD: 18 Pt is off all sedation. He is still not arousing. Questionable response to painful stimuli. The family will be meeting today with palliative care to discuss goals of care. 10/30/2016 PTD: 19 Pt now opens his eyes, slightly, but does not follow commands. Pt remains off sedation. Plan for weaning further from the vent. TF will resume 24 hrs post PEG placement as per protocol. (Osiris Pittman) Objective Vital Signs Date Time Temp Pulse Resp B/P Pulse Ox O2 Delivery O2 Flow Rate FiO2 10/30/16 07:51 100 50 10/30/16 06:00 100 10/30/16 04:00 99.7 17 134/75 Intake and Output 10/29/16 10/29/16 10/30/16 08:00 16:00 00:00 Intake Total 369 ml 300 ml 914 ml Output Total 750 ml 1800 ml 1100 ml Balance -381 ml -1500 ml -186 ml (Osiris Pittman) Result Diagram: 10/30/16 0550 10/30/16 0550 Other Results Laboratory Tests Test 10/30/16 05:36 Blood Gas Puncture Site RT RADIAL Blood Gas Patient Temperature 98.6 Blood Gas HCO3 26 mmol/L (22-26) Blood Gas Base Excess 2.6 mmol/L (-2-2) Blood Gas Oxygen Saturation 92 % (90-100) Arterial Blood pH 7.49 (7.380-7.420) Arterial Blood Partial 34 mmHg (38-42) Pressure CO2 Arterial Blood Partial 70 mmHg Pressure O2 (61-120) Arterial Blood Oxygen Content 12.0 Vol % (12.0-20.0) Arterial Blood 1.3 % (0-4) Carboxyhemoglobin Arterial Blood Methemoglobin 0.6 % (0-2) Blood Gas Hemoglobin 9.2 G/DL (12.0-16.0) Oxygen Delivery Device VENTILATOR Blood Gas Ventilator Setting PRVC Blood Gas Inspired Oxygen 40 % Imaging Last Impressions Chest X-Ray 10/30/16 0600 Signed Impressions: Service Date/Time: Sunday, October 30, 2016 04:17 - CONCLUSION: Persistent left lower lung consolidation and hazy opacities in the right lower lung. Cosmo Abbasi MD Lower Extremity Ultrasound 10/27/16 0000 Signed Impressions: Service Date/Time: Thursday, October 27, 2016 10:13 - CONCLUSION: No DVT either lower extremity. 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 MD Head CT 10/23/16 0000 Signed Impressions: Service Date/Time: Sunday, October 23, 2016 11:21 - CONCLUSION: 1. Examination quality is degraded by motion artifact. There is decreased midline shift, currently measuring 3 mm compared to 6 mm on the prior study. 2. There are persistent hemorrhagic contusions in the right frontal lobe but they are less well-visualized today either related to interval improvement or related to motion artifact. Red Arenas MD Chest CT 10/23/16 0000 Signed Impressions: Service Date/Time: Sunday, October 23, 2016 11:24 - CONCLUSION: 1. Airspace consolidation within the left upper lobe. This could represent an infectious process. 2. Small bilateral pleural effusions with associated compressive atelectasis in the lower lobes. Red Arenas MD Abdomen/Pelvis CT 10/23/16 0000 Signed Impressions: Service Date/Time: Sunday, October 23, 2016 11:27 - CONCLUSION: 1. No acute finding is identified within the abdomen or pelvis. 2. Anasarca. 3. Stable 7 mm nodule on the left adrenal gland. Small size favors a benign process but is incompletely characterized on this examination. Red Arenas MD Neck CTA 10/12/16 0000 Signed Impressions: Service Date/Time: Wednesday, October 12, 2016 09:27 - CONCLUSION: Mild atherosclerotic changes in the proximal portions of both internal carotid arteries but no significant stenosis. Dez Petersen MD Head CTA 10/12/16 0000 Signed Impressions: Service Date/Time: Wednesday, October 12, 2016 09:27 - CONCLUSION: No evidence of acute vascular injury Red Hoffman MD Pelvis X-Ray 10/11/16 1213 Signed Impressions: Service Date/Time: Tuesday, October 11, 2016 12:02 - CONCLUSION: Satisfactory trauma pelvis appearance. Red Hoffman MD Cervical Spine CT 10/11/16 1213 Signed Impressions: Service Date/Time: Tuesday, October 11, 2016 12:19 - CONCLUSION: Occipital skull fracture. No evidence of acute traumatic injury in the cervical spine Red Hoffman MD Objective Remarks GENERAL: This is a 56 year old male mechanically ventilated. SKIN: Warm and dry. Generalized edema noted. HEAD: Atraumatic. Normocephalic. EYES: PERRLA ENT: No nasal bleeding or discharge. Mucous membranes pink and moist. NECK: Trach. Trachea midline. No JVD. CARDIOVASCULAR: Regular rate and rhythm. CM shows sinus tach. HR = 100-104 RESPIRATORY: Vent. No accessory muscle use. Clear but decreased to auscultation. Breath sounds equal bilaterally. GASTROINTESTINAL: Abdomen soft, non-tender, nondistended. BS + x [address] seal in [address]. Estrella catheter in place to bedside drainage bag with clear yellow urine. MUSCULOSKELETAL: Extremities without cyanosis, or edema. No obvious deformities. + peripheral pulses. NEUROLOGICAL: Mechanically ventilated. Pt does not follow commands. Pt has questionable extension to bilateral upper extremities with deep painful stimuli. Appears to withdraw to bilateral lower extremities with deep pain stimuli. (Osiris Pittman) Urinary Catheter Assessment Urinary Catheter: Yes Assessment to: Continue (Osiris Pittman) Vascular Central Line Catheter Vascular Central Line Catheter: Yes Assessment to: Remove (attempt removal once PIV obtained.) Line: Central Venous Catheter Side: Right Location: Subclavian (Osiris Pittman) Assessment and Plan Assessment: (1) Encephalopathy acute ICD Code: G93.40 Status: Acute (2) Fracture of occipital bone of skull with loss of consciousness ICD Code: S02.119A Status: Acute (3) Subdural hemorrhage following injury ICD Code: S06.5X9A Status: Acute (4) Alcohol dependence ICD Code: F10.20 Status: Acute (5) Traumatic brain injury ICD Code: S06.9X9A Status: Acute (6) Seizure ICD Code: R56.9 Status: Acute (7) Pneumonia ICD Code: J18.9 Status: Acute (8) Pain ICD Code: R52 Status: Acute (9) SAH (subarachnoid hemorrhage) ICD Code: I60.9 Status: Acute Plan LOWER ELWHA: This is a 56-year-old male who sustained a fall from a ladder of approximately 10 feet. He landed on his head. GCS 3 at the scene, and bystanders performed CPR. PMHx: ETOH (12-15 beers daily) drinks beer with morning coffee, 2 PPD smoker, Hep C INJURIES: SAH SDH Large occipital skull fx Aspiration Assessment and plan by systems: NEUROLOGICAL: Pt is off all sedation. Provide analgesia for comfort and pain - oxycodone via tube Seizure prophylaxis - Keppra, and Cerebyx. HOB elevated 30 degrees Hyponatremia status - NA - 137 + peripheral pulses x 4 extremities. Patient questionably extends to bilateral upper extremities, and withdraws in the lower extremities to deep painful stimuli. CARDIOVASCULAR: HR = 100-104. Sinus tachycardia BP = 134/75 Continually monitor for hemodynamic instability (shock and hypotension). BP meds - hydralazine, propranolol, clonidine. Diuretics - Lasix 40 daily with 25 mEq potassium daily Follow CMP Electrolyte protocol in place RESPIRATORY: Vent settings AC 600 / 10 / 40% / +8 Decrease rate to 6, with the plan to progress to CPAP trials. Increase PEEP carefully (to assist in oxygenation by recruiting alveoli.) O2 Sats - Monitor for hypoxemia Edema status - generalized edema Lung sounds - CTA but decreased throughout. Pulmonary toilet = L&S. Bronchodilators - Breathing treatments duonebs. Chest X-Ray results - persistent bilateral lower lung consolidation and hazy opacities in the right lower lobe. Sputum culture - 10/24: Moderate growth of respiratory eric. Antibiotics - Rocephin, Vanco. VAP protocol in place Labs tomorrow Chest X-Ray tomorrow GASTROINTESTINAL: Diet: Jevity at 60 cc/hr Bowel sounds - + x 4 quads. Bowel regimen: Cynthia-Colace, M OM. Lactulose 3 times a day. MiraLAX. Bisacody lPR . LBM: 10/[address] with brown liquid stool. RENAL / URINARY: I&O - -2516 BUN / creat 14 / 0.[address] to bedside drainage bag Urine culture - 10/24: No growth in 48 hours ENDOCRINE: BGM = 86 via AM labs SSI HEMATOLOGY: H&H 9.6 / 28.4 Continue to monitor for signs and symptoms of bleeding. Evaluate need for IVC filter. Transfuse for < 7.0 US Lower extremity study 10/27: No DVT in bilateral legs Monitor patient for any bleeding complications. INFECTIOUS DISEASE: Follow CBC WBC - 20.5 Fevers - low grade fevers Administer antipyretics for temp as needed. Blood cultures 10/24: Negative Urine 10/24 negative Sputum cultures 10/24 negative IV antibiotics : Rocephin and Vanco Monitor pneumonia evolution with repeat chest X-Rays as needed. Maintain vigorous aseptic care of central line to avoid blood stream infections. Consider a consult to ID for further management. PROPHYLAXIS: VAP protocol in place GI : Protonix IV DVT - Mechanical VTE with SCDs. Chemical management contraindicated due to SAH/ SDH. (Awaiting neurosurgery clearance) SKIN: Warm, dry. ACTIVITY: Status - BR PT and OT ordered. CASE MANAGEMENT: Consulted for assist with DC planning. Placement - disposition - TBD. EMOTIONAL SUPPORT: Provided to patient and family. Plan of care discussed. Questions answered to the best of my knowledge. Palliative care has been consulted. This patient is currently critically ill and injured, with traumatic brain injury with respiratory failure due to his injuries. He is being managed in the ICU. The trauma team will round, assess and evaluate the patient on a day to day basis. (Osiris Pittman) Attestation The exam, history, and the medical decision-making described in the above note were completed with the assistance of the mid-level provider. I reviewed and agree with the findings presented. I attest that I had a [id number] encounter with the patient on the same day, and personally performed and documented my assessment and findings in the medical record. Critical care time 40 minutes. (Sherry Parikh MD) Problem Qualifiers (1) Fracture of occipital bone of skull with loss of consciousness: Qualified Code: S02.119A - Fracture of occipital bone of skull with loss of consciousness, closed, initial encounter (2) Subdural hemorrhage following injury: Qualified Code: S06.5X1A - Traumatic subdural hemorrhage with loss of consciousness of 30 minutes or less, initial encounter (3) Traumatic brain injury: Osiris Pittman Oct 30, 2016 12:04 Sherry Parikh MD Nov 04, 2016 17:18
--- NOTE | 2016-10-30 12:54 | HHI.GIFU ---
GI Follow-up Note Consult Follow-up Subjective: Patient laying in bed comfortably, no new complaints Objective: PHYSICAL EXAMINATION: Vitals signs stable No fever HEENT: Pupils round and reactive to light; normocephalic; atraumatic; no jaundice. Throat is clear. NECK: Neck is supple, no JVD, no lymphadenopathy. CHEST: Chest is clear to auscultation and percussion. CARDIAC: Regular rate and rhythm with no murmur gallop or rubs. ABDOMEN: Soft, nondistended, nontender; no hepatosplenomegaly; bowel sounds are present in all four quadrants. EXTREMITIES: No clubbing, cyanosis, or edema. SKIN: Normal; no rash; no jaundice. CAPSULE INSPECTOR: No focal deficits; alert and oriented times three. Available Data (labs, X- Rays, Procedues) : Last Impressions Chest X-Ray 10/29/16 0600 Signed Impressions: Service Date/Time: Saturday, October 29, 2016 03:58 - CONCLUSION: Persistent bilateral lower lung consolidation, left greater than right. Cosmo Abbasi MD Lower Extremity Ultrasound 10/27/16 0000 Signed Impressions: Service Date/Time: Thursday, October 27, 2016 10:13 - CONCLUSION: No DVT either lower extremity. 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 MD Head CT 10/23/16 0000 Signed Impressions: Service Date/Time: Sunday, October 23, 2016 11:21 - CONCLUSION: 1. Examination quality is degraded by motion artifact. There is decreased midline shift, currently measuring 3 mm compared to 6 mm on the prior study. 2. There are persistent hemorrhagic contusions in the right frontal lobe but they are less well-visualized today either related to interval improvement or related to motion artifact. Red Arenas MD Chest CT 10/23/16 0000 Signed Impressions: Service Date/Time: Sunday, October 23, 2016 11:24 - CONCLUSION: 1. Airspace consolidation within the left upper lobe. This could represent an infectious process. 2. Small bilateral pleural effusions with associated compressive atelectasis in the lower lobes. Red Arneas MD Abdomen/Pelvis CT 10/23/16 0000 Signed Impressions: Service Date/Time: Sunday, October 23, 2016 11:27 - CONCLUSION: 1. No acute finding is identified within the abdomen or pelvis. 2. Anasarca. 3. Stable 7 mm nodule on the left adrenal gland. Small size favors a benign process but is incompletely characterized on this examination. Red Arenas MD Neck CTA 10/12/16 0000 Signed Impressions: Service Date/Time: Wednesday, October 12, 2016 09:27 - CONCLUSION: Mild atherosclerotic changes in the proximal portions of both internal carotid arteries but no significant stenosis. Dez Petersen MD Head CTA 10/12/16 0000 Signed Impressions: Service Date/Time: Wednesday, October 12, 2016 09:27 - CONCLUSION: No evidence of acute vascular injury Red Hoffman MD Pelvis X-Ray 10/11/16 1213 Signed Impressions: Service Date/Time: Tuesday, October 11, 2016 12:02 - CONCLUSION: Satisfactory trauma pelvis appearance. Red Hoffman MD Cervical Spine CT 10/11/16 1213 Signed Impressions: Service Date/Time: Tuesday, October 11, 2016 12:19 - CONCLUSION: Occipital skull fracture. No evidence of acute traumatic injury in the cervical spine Red Hoffman MD Laboratory Tests Test 10/28/16 10/29/16 10/29/16 10/30/16 17:46 04:00 13:00 05:36 Vancomycin Level Trough 12.9 MCG/ML 11.4 MCG/ML White Blood Count 20.5 TH/MM3 Red Blood Count 2.95 MIL/MM3 Hemoglobin 9.6 GM/DL Hematocrit 28.4 % Mean Corpuscular Volume 96.1 FL Mean Corpuscular Hemoglobin 32.5 PG Mean Corpuscular Hemoglobin 33.8 % Concent Red Cell Distribution Width 13.8 % Platelet Count 300 TH/MM3 Mean Platelet Volume 8.5 FL Neutrophils (%) (Auto) 79.3 % Lymphocytes (%) (Auto) 7.9 % Monocytes (%) (Auto) 10.6 % Eosinophils (%) (Auto) 1.8 % Basophils (%) (Auto) 0.4 % Neutrophils # (Auto) 16.3 TH/MM3 Lymphocytes # (Auto) 1.6 TH/MM3 Monocytes # (Auto) 2.2 TH/MM3 Eosinophils # (Auto) 0.4 TH/MM3 Basophils # (Auto) 0.1 TH/MM3 CBC Comment AUTO DIFF Differential Comment AUTO DIFF CONFIRMED Sodium Level 137 MEQ/L Potassium Level 3.8 MEQ/L Chloride Level 99 MEQ/L Carbon Dioxide Level 31.7 MEQ/L Anion Gap 6 MEQ/L Blood Urea Nitrogen 14 MG/DL Creatinine 0.73 MG/DL Estimat Glomerular Filtration 111 ML/MIN Rate Random Glucose 86 MG/DL Calcium Level 8.2 MG/DL Phosphorus Level 3.4 MG/DL Magnesium Level 2.2 MG/DL Total Bilirubin 0.4 MG/DL Aspartate Amino Transf 38 U/L (AST/SGOT) Alanine Aminotransferase 49 U/L (ALT/SGPT) Alkaline Phosphatase 208 U/L Total Protein 6.8 GM/DL Albumin 1.5 GM/DL Phenytoin (Dilantin) Level 2.2 MCG/ML Blood Gas Puncture Site RT RADIAL Blood Gas Patient Temperature 98.6 Blood Gas HCO3 26 mmol/L Blood Gas Base Excess 2.6 mmol/L Blood Gas Oxygen Saturation 92 % Arterial Blood pH 7.49 Arterial Blood Partial 34 mmHg Pressure CO2 Arterial Blood Partial 70 mmHg Pressure O2 Arterial Blood Oxygen Content 12.0 Vol % Arterial Blood 1.3 % Carboxyhemoglobin Arterial Blood Methemoglobin 0.6 % Blood Gas Hemoglobin 9.2 G/DL Oxygen Delivery Device VENTILATOR Blood Gas Ventilator Setting PRVC Blood Gas Inspired Oxygen 40 % Test 10/30/16 05:50 White Blood Count 17.7 TH/MM3 Red Blood Count 2.80 MIL/MM3 Hemoglobin 8.9 GM/DL Hematocrit 26.4 % Mean Corpuscular Volume 94.3 FL Mean Corpuscular Hemoglobin 31.8 PG Mean Corpuscular Hemoglobin 33.8 % Concent Red Cell Distribution Width 13.6 % Platelet Count 342 TH/MM3 Mean Platelet Volume 8.2 FL Sodium Level 137 MEQ/L Potassium Level 3.5 MEQ/L Chloride Level 100 MEQ/L Carbon Dioxide Level 27.4 MEQ/L Anion Gap 10 MEQ/L Blood Urea Nitrogen 12 MG/DL Creatinine 0.67 MG/DL Estimat Glomerular Filtration 122 ML/MIN Rate Random Glucose 116 MG/DL Calcium Level 8.2 MG/DL Magnesium Level 2.2 MG/DL Allergies Coded Allergies Type Severity Reaction Last Updated Verified UNOBTAINABLE 10/11/16 No ASSESSMENT/PLAN: Seen and examined, s/p peg. Increase TF as tolerated. Will sign off. Thank you It was a pleasure seeing Heath Nixon. Thank you for this consult. Entered by: Demarco Cee MD Oct 30, 2016 12:54
--- NOTE | 2016-10-30 19:01 | MP ---
cc: MD MENA,SINTIA DATE OF SURGERY: 10/27/2016. PREOPERATIVE DIAGNOSIS: 1. Respiratory failure. 2. Brain trauma. POSTOPERATIVE DIAGNOSIS: 1. Respiratory failure. 2. Brain trauma. OPERATIVE PROCEDURE PERFORMED: Blue rhino tracheostomy SURGEON: Sintia Parikh M.D. CLASSIFICATION AND TREATMENT DIRECTOR: James Moon MD. ANESTHESIA: General, Diprivan and local 1% Xylocaine ESTIMATED BLOOD LOSS: 5 mL. DESCRIPTION OF THE PROCEDURE IN DETAIL: The patient prepped and draped in the usual fashion. The area was infiltrated with 1% Xylocaine. A vertical neck incision was made just above the sternal notch and deepened down with a hemostat by tissue to the trachea. The level of the second and third tracheal rings was palpated and the needle was inserted in the trachea under direct vision through bronchoscopy. Through the needle, the guidewire was placed and the needle withdrawn. Over the guidewire, the small dilator and then the large Blue Rhino dilator were passed. Both were withdrawn and then a #8 Shiley cannula was introduced and sutured to the skin with 2-0 Prolene and connected to the ventilator and then end tidal C02 checked. The patient tolerated the procedure well. Sintia DUDLEY/YOLA /5:28 PM /6:50 PM
[2016-10-30] MEDS: THIAMINE IV SCH ×2 (20:19)
--- NOTE | 2016-10-30 21:08 | MG ---
cc: JERI LOOMIS MD Lab No: Date: 10/30/16 Age: 56 Sex: M Race: An EEG was obtained on this 56-year-old patient with history of being evaluated for seizures. The EEG is showing continuous right hemisphere slowing characterized by theta and some delta rhythms. Along with the slowing, there are some intermixed sharp discharges. There is some alpha activity on the left more than right hemisphere. There are beta rhythms. There seems to be awake and drowsiness. Photic stimulation shows some possible driving response. INTERPRETATION Abnormal EEG because of continuous right hemisphere slowing with associated sharp discharges. The findings suggest right hemisphere structural abnormality with epileptiform features but no ictal pattern present. Jeri Loomis MD [facility] /8:54 PM /9:04 PM
[2016-10-31] VITALS (17 sets, daily range): BP systolic 119–162; BP diastolic 65–95; PULSE 82–99; RESP 20–35; TEMP 98.8–101.6; O2SAT 94–99
[2016-10-31] MEDS: ACETAMINOPHEN 325 MG TAB PO PRN ×2 (03:34→13:37)
[2016-10-31] MEDS: WATER IV SCH ×16 (03:35→20:20)
[2016-10-31] MEDS: VANCOMYCIN IV SCH ×6 (03:35→18:19)
[2016-10-31] MEDS: DEXTROSE 5% IV SCH ×12 (03:35→20:19)
[2016-10-31] MEDS: PROPRANOLOL HCL 20 MG TAB PO SCH ×5 (03:35→22:59)
[2016-10-31 05:04] LABS: BICARBONATE 26.6 MEQ/L (21.0-32.0)
[2016-10-31 05:05] LABS: POTASSIUM 3.7 MEQ/L (3.5-5.1)
[2016-10-31 05:35] LABS: HEMATOCRIT 26.1 % (39.0-51.0); MEAN CELL VOLUME 94.3 FL (80.0-100.0); MEAN CORPUSCULAR HEMOGLOBIN 32.8 PG (27.0-34.0); MEAN CORPUSCULAR HGB CONC 34.8 % (32.0-36.0); PLATELET COUNT 373 TH/MM3 (150-450); RED BLOOD COUNT 2.77 MIL/MM3 (4.50-5.90); RED CELL DISTRIBUTION WIDTH 13.5 % (11.6-17.2); REVIEW FLAG FINAL; WHITE BLOOD COUNT 16.5 TH/MM3 (4.0-11.0)
[2016-10-31] MEDS: cloNIDine HCL 0.3 MG TAB PO SCH ×3 (05:46→20:21)
--- NOTE | 2016-10-31 06:32 | RADRPT ---
EXAM DATE/TIME: 10/31/2016 04:56 [facility] COMPARISON: CHEST SINGLE AP, October 30, 2016, 4:17. INDICATIONS : Shortness of breath. MEDICAL HISTORY : Hypertension. SURGICAL HISTORY : None. ENCOUNTER: Subsequent ACUITY: 2 weeks PAIN SCORE: Non-responsive. LOCATION: Bilateral chest FINDINGS: Tracheostomy in place. Persistent consolidation in the left lower lung with loss of delineation left hemidiaphragm. Ill-defined opacity in the right lower lung is similar to prior. No evidence of pne umothorax. The heart is similar in size. CONCLUSION: Persistent left lower lobe consolidation and ill-defined opacities in the right lower lung. Cosmo Abbasi MD on October 31, 2016 at 6:30 Board Certified Radiologist. This report was verified electronically.
[2016-10-31] MEDS: CHLORHEXIDINE 0.12% (ORAL KIT) 15 ML CUP MT SCH ×2 (07:34→20:20)
[2016-10-31] MEDS: CEFTRIAXONE IV SCH ×4 (07:34→20:19)
[2016-10-31] MEDS: DEXTROSE IV SCH ×4 (07:35→20:20)
[2016-10-31] MEDS: SODIUM CHLORIDE 0.9% FLUSH 5 ML FLUSH IVF SCH ×2 (07:35→20:20)
[2016-10-31] MEDS: FOSPHENYTOIN IV SCH ×4 (07:35→20:20)
[2016-10-31] MEDS: FUROSEMIDE 40 MG/4 ML VIAL IV PUSH SCH (07:35)
[2016-10-31] MEDS: PANTOPRAZOLE SODIUM 40 MG VIAL IVP SCH (07:35)
[2016-10-31] MEDS: FOLIC ACID 1 MG TAB PO SCH (07:36)
[2016-10-31] MEDS: MAGNESIUM HYDROXIDE SUSP 30 ML CUP PO SCH (07:36)
[2016-10-31] MEDS: LACTULOSE SYRUP 20 GM/30 ML CUP PO SCH ×3 (07:36→15:26)
[2016-10-31] MEDS: DOCUSATE SODIUM 100 MG CAP PO SCH ×2 (07:36→20:20)
[2016-10-31] MEDS: POLYETHYLENE GLYCOL 17 GM PKG PO SCH ×2 (07:37→20:00)
[2016-10-31] MEDS: levETIRAcetam 500 MG/5 ML UDC TUBE SCH ×2 (07:37→20:21)
[2016-10-31] MEDS: POTASSIUM CHLORIDE 25 MEQ EFFERVESCENT TAB TUBE SCH (07:37)
[2016-10-31] MEDS: MULTIVITAMIN TAB PO SCH (07:37)
[2016-10-31] MEDS: SENNOSIDES SYRUP 8.8 MG/5 ML CUP PO/NG SCH ×2 (07:39→20:21)
[2016-10-31] MEDS: oxyCODONE HCL ORAL CONC 20 MG/ML SYRINGE PO PRN (10:17)
[2016-10-31] MEDS ORDERED: PHARMACY ORDERED LAB XX ONE (14:45)
--- NOTE | 2016-10-31 16:50 | HHI.CCPN ---
Subjective Brief History Elderly male who was brought in as a trauma alert after he fell 10 feet from a ladder. GCS 6 initially at the scene subsequently improved to 11 on arrival in the ER. Patient was evaluated by trauma team and subsequently underwent imaging studies and transferred to the ICU. Imaging studies revealed an occipital skull fracture, subdural and subarachnoid blood. Patient was awake and alert at the time of evaluation and following commands and moving all 4 extremities. He could not hear and had some speech difficulty at the time of my evaluation with difficulty in communication though was following commands appropriately. C spine cleared by Neurosurgery at the time of my evaluation. Patient developed worsening agitation despite Precedex last evening. Since then patient had to be intubated ventilated and is currently on propofol fentanyl and Versed drips to keep him down When these are discontinued or less and patient starts biting on the to and becomes restless moves all [address] scan of the head reveals worsening subdural and subarachnoid hemorrhage and the midline shift of about 8 mm 24 Hour Review/Hospital Course Patient has worsened in last 24 hours Repeat CAT scan reveals worsening subdural bleeding over the right parieto- occipital area and utbrd-xe-cmnd shift of about 8 mm Patient is elderly and a heavy drinker and therefore has atrophy of the brain so there is some more space that allows for compartment pressure IE ICP to remain low We will discuss with neurosurgery about placing ICP monitor or even draining subdural hematoma at this time. Patient remains hyperventilated and on hypertonic saline nonetheless will require bolt placement to assess for ICP and the effectiveness of the therapy 10/13/2016 Patient neurologically unchanged Repeat CAT scan shows some decrease in subdural hematoma and slight decrease in shift yet still severe brain injury At the family's request a second opinion neurosurgery consult was placed and second neurosurgeon has evaluated the patient She will have a long-term recovery here and have discussed this at length with the family Patient may need tracheostomy and PEG tube placement as the part of the appropriate treatment 10/14/2016 Patient with a severe brain injury and subdural hematoma and intraparenchymal hemorrhage Underwent yesterday ventriculostomy placement ICP is within physiologic range at this time and the subdural hematoma size has somewhat decreased There is no change in the neurologic status over the last 24 hours 10/17/16 No change in neurologic status Patient withdraws to pain but does not open eyes or communicates in anyway All sedation has been removed and ventilatory settings been gradually decreased in order 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 Hypertonic saline was held for profound hypernatremia. EEG showed complete moderate encephalopathy. He will require tracheostomy and gastrostomy tube placement once stable. There was 1 episode of mucous plugging which resolved with aggressive suctioning. 10/23/16 Plan was for tracheostomy today, patient however has elevated ICPs into the 30s We will defer tracheostomy until patient is stable 10/24/16 ICP is improved following administration of neostigmine and a large bowel movement He is likely ready for tracheostomy now, as long as his ICPs remain low Palliative care consult placed for tomorrow, will await input from palliative care and family prior to tracheostomy and feeding tube placement Prognosis at this point remains grim for meaningful recovery 10/25/16 Patient with severe brain injury not showing any signs of neurologic recovery and last few days ICPs remain low apparently throughout the weekend and ventriculostomy has been removed by Dr. Cruz Palliative care consult is greatly appreciated and it helps us tremendously and decision-making and communication as far as this patient's further care is concerned At this point patient's friends appear to be thinking that he is a fighter and according to Dr. Cruz he has chance of meaningful recovery Therefore we will proceed with tracheostomy and PEG placement in next day or 2 10/26/16 No change in current status No neurologic improvement Able to wean the ventilator gradually however due to inability to protect airway patient will need tracheostomy and PEG placement We'll proceed with tracheostomy tomorrow 10/27/16 Patient with the significant head injury remains on the ventilator no change in neurologic status Weaning at this point is inhibited by the fact that patient cannot protect upper airway and due to the low Pawel Coma Scale Patient has undergone tracheostomy today and will have a PEG placed Copious secretions At this point we'll be able to wean as tolerated considering the presence of tracheostomy. 10/29/2016 PTD: 18 Pt is off all sedation. He is still not arousing. Questionable response to painful stimuli. The family will be meeting today with palliative care to discuss goals of care. 10/30/2016 PTD: 19 Pt now opens his eyes, slightly, but does not follow commands. Pt remains off sedation. Plan for weaning further from the vent. TF will resume 24 hrs post PEG placement as per protocol. 10/31/2016 PTD: 20 Patient on CPAP this morning. Originally respiratory rate equals 30, however proposed pain medication administration - he is now breathing comfortably without distress on CPAP. According to nurses, patient was following commands last night. He would give the "thumbs-up" on his right hand, Wiggle his toes on the right side, and smile. This morning he is comfortable, but lethargic post pain medication administration. (Osiris Pittman) Objective Vital Signs Date Time Temp Pulse Resp B/P Pulse Ox O2 Delivery O2 Flow Rate FiO2 10/31/16 12:00 50 10/31/16 11:56 96 10/31/16 06:00 97 10/31/16 04:00 98.8 26 146/71 Intake and Output 10/30/16 10/30/16 10/31/16 08:00 16:00 00:00 Intake Total 685 ml 669 ml 1320 ml Output Total 450.0 ml 1250.0 ml 400 ml Balance 235.0 ml -581.0 ml 920 ml (Osiris Pittman MANAGER ANIMATION) Result Diagram: 10/31/16 0508 10/31/16 0353 Imaging Last Impressions Chest X-Ray 10/30/16 0600 Signed Impressions: Service Date/Time: Sunday, October 30, 2016 04:17 - CONCLUSION: Persistent left lower lung consolidation and hazy opacities in the right lower lung. Cosmo Abbasi MD Lower Extremity Ultrasound 10/27/16 0000 Signed Impressions: Service Date/Time: Thursday, October 27, 2016 10:13 - CONCLUSION: No DVT either lower extremity. 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 MD Head CT 10/23/16 0000 Signed Impressions: Service Date/Time: Sunday, October 23, 2016 11:21 - CONCLUSION: 1. Examination quality is degraded by motion artifact. There is decreased midline shift, currently measuring 3 mm compared to 6 mm on the prior study. 2. There are persistent hemorrhagic contusions in the right frontal lobe but they are less well-visualized today either related to interval improvement or related to motion artifact. Red Arenas MD Chest CT 10/23/16 0000 Signed Impressions: Service Date/Time: Sunday, October 23, 2016 11:24 - CONCLUSION: 1. Airspace consolidation within the left upper lobe. This could represent an infectious process. 2. Small bilateral pleural effusions with associated compressive atelectasis in the lower lobes. Red Arenas MD Abdomen/Pelvis CT 10/23/16 0000 Signed Impressions: Service Date/Time: Sunday, October 23, 2016 11:27 - CONCLUSION: 1. No acute finding is identified within the abdomen or pelvis. 2. Anasarca. 3. Stable 7 mm nodule on the left adrenal gland. Small size favors a benign process but is incompletely characterized on this examination. Red Arenas MD Neck CTA 10/12/16 0000 Signed Impressions: Service Date/Time: Wednesday, October 12, 2016 09:27 - CONCLUSION: Mild atherosclerotic changes in the proximal portions of both internal carotid arteries but no significant stenosis. Dez Petersen MD Head CTA 10/12/16 0000 Signed Impressions: Service Date/Time: Wednesday, October 12, 2016 09:27 - CONCLUSION: No evidence of acute vascular injury Red Hoffman MD Pelvis X-Ray 10/11/16 121 Signed Impressions: Service Date/Time: Tuesday, October 11, 2016 12:02 - CONCLUSION: Satisfactory trauma pelvis appearance. Red Hoffman MD Cervical Spine CT 10/11/16 1213 Signed Impressions: Service Date/Time: Tuesday, October 11, 2016 12:19 - CONCLUSION: Occipital skull fracture. No evidence of acute traumatic injury in the cervical spine Red Hoffman MD Objective Remarks GENERAL: This is a 56 year old male mechanically ventilated. SKIN: Warm and dry. Generalized edema noted. HEAD: Atraumatic. Normocephalic. EYES: PERRLA ENT: No nasal bleeding or discharge. Mucous membranes pink and moist. NECK: Trach. Trachea midline. No JVD. CARDIOVASCULAR: Regular rate and rhythm. CM shows sinus tach. HR = 90-97. RESPIRATORY: Vent. No accessory muscle use. Clear but decreased to auscultation. Breath sounds equal bilaterally. GASTROINTESTINAL: Abdomen soft, non-tender, nondistended. BS + x [address] in [address]. Estrella catheter in place to bedside drainage bag with clear yellow urine. MUSCULOSKELETAL: Extremities without cyanosis, or edema. No obvious deformities. + peripheral pulses. NEUROLOGICAL: Mechanically ventilated. Patient opens eyes . Pt does not follow commands. (Fager-Mchugh,Osiris F MANAGER ANIMATION) Urinary Catheter Assessment Urinary Catheter: Yes Assessment to: Continue (Osiris Pittman) Vascular Central Line Catheter Vascular Central Line Catheter: No (Osiris Pittman) Assessment and Plan Assessment: (1) Encephalopathy acute ICD Code: G93.40 Status: Acute (2) Fracture of occipital bone of skull with loss of consciousness ICD Code: S02.119A Status: Acute (3) Subdural hemorrhage following injury ICD Code: S06.5X9A Status: Acute (4) Alcohol dependence ICD Code: F10.20 Status: Acute (5) Traumatic brain injury ICD Code: S06.9X9A Status: Acute (6) Seizure ICD Code: R56.9 Status: Acute (7) Pneumonia ICD Code: J18.9 Status: Acute (8) Pain ICD Code: R52 Status: Acute (9) SAH (subarachnoid hemorrhage) ICD Code: I60.9 Status: Acute Plan LOWER BRULE: This is a 56-year-old male who sustained a fall from a ladder of approximately 10 feet. He landed on his head. GCS 3 at the scene, and bystanders performed CPR. PMHx: ETOH (12-15 beers daily) drinks beer with morning coffee, 2 PPD smoker, Hep C INJURIES: SAH SDH Large occipital skull fx Aspiration Assessment and plan by systems: NEUROLOGICAL: Pt is off all sedation. Provide analgesia for comfort and pain - oxycodone via tube Seizure prophylaxis - Keppra, and Cerebyx. HOB elevated 30 degrees Hyponatremia status - NA - 134 + peripheral pulses x 4 extremities. Patient questionably extends to bilateral upper extremities, and withdraws in the lower extremities to deep painful stimuli. CARDIOVASCULAR: HR = 90-96. Sinus rhythm. BP = WNL Continually monitor for hemodynamic instability (shock and hypotension). BP meds - hydralazine, propranolol, clonidine. Diuretics - Lasix 40 daily with 25 mEq potassium daily Follow CMP Electrolyte protocol in place RESPIRATORY: Vent settings AC 600 / 6 / 40% / +8 CPAP trials and tolerating well. Increase PEEP carefully (to assist in oxygenation by recruiting alveoli.) O2 Sats - Monitor for hypoxemia Edema status - generalized edema Lung sounds - CTA but decreased throughout. Pulmonary toilet = L&S. Bronchodilators - Breathing treatments duonebs. Chest X-Ray results - persistent left lower lobe consolidation and ill-defined opacities in the right lower lung. Sputum culture - 10/24: Moderate growth of respiratory eric. Antibiotics - Rocephin, Vanco. VAP protocol in place Labs tomorrow Chest X-Ray tomorrow GASTROINTESTINAL: Diet: Jevity at 60 cc/hr Bowel sounds - + x 4 quads. Bowel regimen: Cynthia-Colace, M OM. Lactulose 3 times a day. MiraLAX. Bisacody lPR . LBM: 10/[address] with brown liquid stool. RENAL / URINARY: I&O - -1119 BUN / creat Estrella catheter in place to bedside drainage bag Urine culture - 10/24: No growth in 48 hours ENDOCRINE: BGM = 133 via AM labs SSI HEMATOLOGY: H&H 9.1 / 26.1 Continue to monitor for signs and symptoms of bleeding. Evaluate need for IVC filter. Transfuse for < 7.0 US Lower extremity study 10/27: No DVT in bilateral legs Monitor patient for any bleeding complications. INFECTIOUS DISEASE: Follow CBC WBC - 20.5 Fevers - low grade fevers Administer antipyretics for temp as needed. Blood cultures 10/24: Negative Urine 10/24 negative Sputum cultures 10/24 negative IV antibiotics : Rocephin and Vanco Monitor pneumonia evolution with repeat chest X-Rays as needed. Maintain vigorous aseptic care of central line to avoid blood stream infections. Consider a consult to ID for further management. PROPHYLAXIS: VAP protocol in place GI : Protonix IV DVT - Mechanical VTE with SCDs. Chemical management contraindicated due to SAH/ SDH. (Awaiting neurosurgery clearance) SKIN: Warm, dry. ACTIVITY: Status - BR PT and OT ordered. CASE MANAGEMENT: Consulted for assist with DC planning. Placement - disposition - TBD. EMOTIONAL SUPPORT: Provided to patient and family. Plan of care discussed. Questions answered to the best of my knowledge. Palliative care has been consulted. This patient is currently critically ill and injured, with traumatic brain injury with respiratory failure due to his injuries. He is being managed in the ICU. The trauma team will round, assess and evaluate the patient on a day to day basis. (Osiris Pittman) Attestation The exam, history, and the medical decision-making described in the above note were completed with the assistance of the mid-level provider. I reviewed and agree with the findings presented. I attest that I had a [id number]-am-afvd encounter with the patient on the same day, and personally performed and documented my assessment and findings in the medical record. Critical care time 35 minutes. (Sherry Parikh MD) Problem Qualifiers (1) Fracture of occipital bone of skull with loss of consciousness: Qualified Code: S02.119A - Fracture of occipital bone of skull with loss of consciousness, closed, initial encounter (2) Subdural hemorrhage following injury: Qualified Code: S06.5X1A - Traumatic subdural hemorrhage with loss of consciousness of 30 minutes or less, initial encounter (3) Traumatic brain injury: Osiris Pittman Oct 31, 2016 16:50 Sherry Parikh MD Nov 04, 2016 17:18
--- NOTE | 2016-10-31 19:39 | HHI.NSPN ---
Note Status Status: Progress Note Interval History Diagnosis trauma alert Interval History 10/19: POD 1 s/p right decompressive craniectomy with evacuation of subdural hematoma. ICPs 22-23 overnight, f/u CT this am shows improved midline shift. currently well sedated. 10/20: POD 2, EEG showed seizures, on Keppra, Neurology evaluation. currently well sedated and intubated. ICPs below 20. 10/21: POD 3, well sedated, ICPs currently at 8. right flap still full and tight. 10/22: POD 4, no changes neuro checks overnight, sedation being weaned. ICPs within normal range. 10/25: ICPs within normal and stable over the weekend. Withdraws in lower extremities. No eye opening, not following commands. 10/26: slightly extends in the right upper extremity, continues to remain unresponsive 10/27: Continues to be intubated, mechanically ventilated. No IV sedation, no eye opening or following commands. Extends in the upper extremities. Ammonia levels normal 10/28: s/p tracheostomy, today he is opening his eyes. right flap still full but softer 10/29: grimaces, but did not open eyes today. 10/31. Open eyes and follows basic, simple commands Labs, Micro, & Vital Signs Results Date Time Temp Pulse Resp B/P Pulse Ox O2 Delivery O2 Flow Rate FiO2 10/31/16 18:00 99 10/31/16 16:50 99 50 10/31/16 16:00 98.8 92 25 148/88 94 10/31/16 16:00 92 10/31/16 16:00 50 10/31/16 14:00 95 10/31/16 12:00 95 10/31/16 12:00 50 10/31/16 12:00 101.6 95 22 157/65 96 10/31/16 11:56 96 50 10/31/16 10:00 88 10/31/16 09:20 99 50 10/31/16 09:20 50 10/31/16 09:20 50 10/31/16 08:00 99.8 82 20 145/86 99 10/31/16 08:00 82 10/31/16 08:00 50 10/31/16 06:00 97 10/31/16 05:00 97 50 10/31/16 04:00 98.8 96 26 146/71 97 10/31/16 04:00 96 10/31/16 04:00 50 10/31/16 02:00 96 10/31/16 01:50 95 50 10/31/16 00:00 98.8 91 24 119/80 96 10/31/16 00:00 91 10/31/16 00:00 50 10/30/16 22:00 82 10/30/16 20:12 100 50 10/30/16 20:00 99.7 88 26 152/82 95 10/30/16 20:00 50 10/30/16 20:00 88 10/31/16 07:00 Intake Total 3139 ml Output Total 2020.0 ml Balance 1119.0 ml Constitutional Vital Signs Date Time Temp Pulse Resp B/P Pulse Ox O2 Delivery O2 Flow Rate FiO2 10/31/16 18:00 99 10/31/16 16:50 99 50 10/31/16 16:00 98.8 92 25 148/88 94 10/31/16 16:00 92 10/31/16 16:00 50 10/31/16 14:00 95 10/31/16 12:00 95 10/31/16 12:00 50 10/31/16 12:00 101.6 95 22 157/65 96 10/31/16 11:56 96 50 10/31/16 10:00 88 10/31/16 09:20 99 50 10/31/16 09:20 50 10/31/16 09:20 50 10/31/16 08:00 99.8 82 20 145/86 99 10/31/16 08:00 82 10/31/16 08:00 50 10/31/16 06:00 97 10/31/16 05:00 97 50 10/31/16 04:00 98.8 96 26 146/71 97 10/31/16 04:00 96 10/31/16 04:00 50 10/31/16 02:00 96 10/31/16 01:50 95 50 10/31/16 00:00 98.8 91 24 119/80 96 10/31/16 00:00 91 10/31/16 00:00 50 10/30/16 22:00 82 10/30/16 20:12 100 50 10/30/16 20:00 99.7 88 26 152/82 95 10/30/16 20:00 50 10/30/16 20:00 88 10/31/16 07:00 Intake Total 3139 ml Output Total 2020.0 ml Balance 1119.0 ml Review of Systems/Exam ROS Exam Mr Nixon is intubated, Slight eye opening and follow commandsgrimacing. Neck: tracheostomy Cranial Nerves: Pupils 5 mm equal and sluggish to react b/l, facial grossly symmetric at rest. Bilateral corneal present. Sensorimotor: not following commands for motor testing, he slightly extending in the upper extremity r>l, and slightly withdraws in bilateral lower extremities to local stimuli Plantars equivocal bilaterally, no ankle clonus. Cerebellar: cannot assess due to clinical condition Medications Current Medications Current Medications Cefazolin Sodium/ Dextrose (Ancef 2 Gm Premix) 50 ml @ As Directed STK-MED ONCE .ROUTE ; Start 10/11/16 at 12:16; Stop 10/11/16 at 12:17; Status DC Iohexol (Omnipaque 350 Inj) 100 ml STK-MED ONCE IV Last administered on 12:28; Start 10/11/16 at 12:28; Stop 10/11/16 at 12:29; Status DC Iohexol 100 ml 100 ml STK-MED ONCE IV ; Start 10/11/16 at 12:42; Stop 10/11/16 at 12:43; Status Cancel Sodium Chloride (NS 1000 ml Inj) 1,000 ml @ 70 mls/hr [id number] IV Last administered on 10/14/16 23:37; Start 10/11/16 at 13:00; Stop 10/15/16 at 12:20 ; Status DC IV Flush (NS Flush) 2 ml UNSCH PRN IVF FLUSH AFTER USING IV ACCESS Last administered on 10/17/16 20:04; Start 10/11/16 at 13:00; Stop 10/18/16 at 11:54 ; Status DC Enalaprilat (Vasotec Inj) 1.25 mg Q8H PRN IV SBP>180, DBP>95; Start 10/11/16 at 13:00; Stop 10/14/16 at 15:56; Status DC Ondansetron HCl (Zofran Inj) 4 mg Q6H PRN IV NAUSEA OR VOMITING; Start at 13:00; Stop 10/18/16 at 11:56; Status DC Pantoprazole Sodium (Protonix Inj) 40 mg Q24H IVP Last administered on 13:02; Start 10/11/16 at 13:00; Stop 10/18/16 at 11:56; Status DC Docusate Sodium (Colace) 100 mg BID PO Last administered on 10/18/16 08:43; Start 10/11/16 at 21:00; Stop 10/18/16 at 12:01; Status DC Magnesium Hydroxide (Milk Of Magnesia Liq) 30 ml Q6H PRN PO CONSTIPATION; Start 10/11/16 at 13:00; Stop 10/12/16 at 09:00; Status DC Miscellaneous Information 1 [id number] Last administered on 10/11/16 13:00; Start 10/11/16 at 13:00 Chlorhexidine Gluconate (Chlorhexidine 2% Cloth) 3 pack Taper DAILY@04 TOP Last administered on 10/30/16 04:00; Start 10/12/16 at 04:00; Stop 10/08/17 at 03:59 Chlorhexidine Gluconate (Chlorhexidine 2% Cloth) 3 pack UNSCH PRN TOP HYGIENIC CARE; Start 10/11/16 at 13:00 Hydralazine HCl (Apresoline Inj) 20 mg STK-MED ONCE .ROUTE Last administered on 10/11/16 13:01; Start 10/11/16 at 13:01; Stop 10/11/16 at 13:02; Status DC Hydralazine HCl (Apresoline Inj) 10 mg Q2H PRN IV PUSH SBP greater than 150mm Hg Last administered on 10/28/16 11:33; Start 10/11/16 at 13:30 Labetalol HCl 10 mg 10 mg Q4H PRN IV PUSH SBP greater than 160mm Hg Last administered on 10/15/16 11:26; Start 10/11/16 at 13:30; Stop 10/15/16 at 12:08 ; Status DC Nicardipine HCl/ Sodium Chloride (Cardene Inj/NS 250 ml Inj) 260 ml @ 0 mls/hr TITRATE IV ; Start 10/11/16 at 13:30; Stop 10/13/16 at 09:55; Status DC Albuterol/ Ipratropium (Duoneb Neb) 1 ampule Q4HR NEB NEB Last administered on 10/18/16 16:45; Start 10/11/16 at 13:45; Stop 10/18/16 at 15:56; Status DC Albuterol/ Ipratropium 1 ampule 1 ampule Q2HR NEB PRN NEB wheezing, shortness of breath Last administered on 10/22/16 15:34; Start 10/11/16 at 13:45 Dexmedetomidine HCl (Precedex Inj) 50 ml @ 0 mls/hr TITRATE IV Last administered on 10/11/16 16:53; Start 10/11/16 at 16:30; Stop 10/12/16 at 11:11 ; Status DC Methylprednisolone Sodium Succinate 80 mg 80 mg Q12H IV PUSH Last administered on 10/16/16 18:30; Start 10/11/16 at 18:00; Stop 10/16/16 at 18:00; Status DC Multivitamins 10 ml/Folic Acid 1 mg/Sodium Chloride 510.2 ml @ 125 mls/hr Q24H IV Last administered on 10/15/16 20:19; Start 10/11/16 at 20:00; Stop at 19:59; Status DC Thiamine HCl/ Sodium Chloride (Thiamine Inj/NS Inj) 101 ml @ 100 mls/hr Q24H IV Last administered on 10/21/16 20:16; Start 10/11/16 at 20:00; Stop 10/22/16 at 20:20; Status DC Lorazepam (Ativan Inj) 2 mg Q4HR PRN IV PUSH CIWA 11-14 Last administered on 19:43; Start 10/11/16 at 17:30; Stop 10/16/16 at 06:17; Status DC Lorazepam (Ativan Inj) 2 mg Q2HR PRN IV PUSH CIWA 15-20; Start 10/11/16 at 17: 30; Stop 10/16/16 at 06:16; Status DC Haloperidol Lactate (Haldol Inj) 2 mg Q15M PRN IM SEE LABEL COMMENTS Last administered on 10/11/16 18:05; Start 10/11/16 at 17:30; Stop 10/13/16 at 09:56 ; Status DC Thiamine HCl 100 mg 100 mg DAILY IM ; Start 10/15/16 at 09:00; Status UNV Sodium Acetate/ Sodium Chloride/ Sodium Chloride (Sodium Acetate Inj/Sodium Chloride 23.4% Inj/NS 1000 ml Inj) 1,067 ml @ 20 mls/hr Q24H IV ; Start at 20:00; Stop 10/12/16 at 00:48; Status DC Mannitol 25 gm 25 gm ONCE ONCE IV Last administered on 10/11/16 19:00; Start 10/11/16 at 19:00; Stop 10/11/16 at 19:02; Status DC Levetriacetam/ Sodium Chloride (Keppra Inj/NS Inj) 105 ml @ 420 mls/hr Q12HR IV Last administered on 10/19/16 08:27; Start 10/11/16 at 21:00; Stop at 13:34; Status DC Lorazepam (Ativan Inj) 4 mg ONCE ONCE IV PUSH Last administered on 10/11/16 19:00; Start 10/11/16 at 19:00; Stop 10/11/16 at 19:02; Status DC Etomidate (Amidate Inj) 20 mg ONCE ONCE IV PUSH ; Start 10/11/16 at 20:45; Stop 10/11/16 at 20:46; Status DC Rocuronium [place] (Zemuron Inj) 50 mg BOLUS ONCE IV Last administered on 10/11 20:45; Start 10/11/16 at 20:45; Stop 10/11/16 at 20:46; Status DC Midazolam HCl (Versed Inj) 5 mg ONCE ONCE IV Last administered on 10/11/16 20 :45; Start 10/11/16 at 20:45; Stop 10/11/16 at 20:46; Status DC Chlorhexidine Gluconate 15 ml 15 ml BID@08,20 MT Last administered on 07:34; Start 10/12/16 at 08:00 Propofol 100 ml @ 0 mls/hr TITRATE IV Last administered on 10/19/16 08:25; Start 10/11/16 at 20:45; Stop 10/19/16 at 09:48; Status DC Midazolam HCl 100 ml @ 0 mls/hr TITRATE IV Last administered on 10/15/16 02:28 ; Start 10/11/16 at 20:45; Stop 10/16/16 at 06:16; Status DC Sodium Chloride (Sodium Chloride 3% Inj) 500 ml @ 30 mls/hr DAILY IV Last administered on 10/16/16 03:52; Start 10/11/16 at 20:45; Stop 10/16/16 at 06:17 ; Status DC Thiamine HCl (Thiamine Inj) 100 mg DAILY IM ; Start 10/12/16 at 09:00; Status UNV Fentanyl Citrate (fentaNYL INJ) 100 mcg STK-MED ONCE .ROUTE Last administered on 10/11/16 20:53; Start 10/11/16 at 20:53; Stop 10/11/16 at 20:54; Status DC Epinephrine HCl (EPINEPHrine (1:10,000) INJ) 1 mg STK-MED ONCE .ROUTE ; Start at 21:33; Stop 10/11/16 at 21:34; Status DC Lidocaine HCl (Xylocaine 2% Inj) 100 mg STK-MED ONCE .ROUTE ; Start 10/11/16 at 21:33; Stop 10/11/16 at 21:34; Status DC Atropine Sulfate 1 mg 1 mg STK-MED ONCE .ROUTE ; Start 10/11/16 at 21:33; Stop 10/11/16 at 21:34; Status DC Fentanyl Citrate (fentaNYL DRIP) 250 ml @ 0 mls/hr TITRATE IV Last administered on 10/12/16 19:22; Start 10/12/16 at 05:00; Stop 10/17/16 at 11:09 ; Status DC Epinephrine HCl (EPINEPHrine (1:10,000) INJ) 1 mg STK-MED ONCE .ROUTE ; Start at 08:47; Stop 10/12/16 at 08:48; Status DC Atropine Sulfate (Atropine Inj) 1 mg STK-MED ONCE .ROUTE ; Start 10/12/16 at 08: 47; Stop 10/12/16 at 08:48; Status DC Magnesium Hydroxide (Milk Of Magnesia Liq) 30 ml DAILY PO Last administered on 10/28/16 08:39; Start 10/12/16 at 10:00 Iohexol (Omnipaque 350 Inj) 100 ml STK-MED ONCE IV Last administered on 09:43; Start 10/12/16 at 09:43; Stop 10/12/16 at 09:44; Status DC Epinephrine HCl (EPINEPHrine (1:10,000) INJ) 1 mg STK-MED ONCE .ROUTE ; Start at 14:20; Stop 10/13/16 at 14:21; Status DC Lidocaine HCl (Xylocaine 2% Inj) 100 mg STK-MED ONCE .ROUTE ; Start 10/13/16 at 14:20; Stop 10/13/16 at 14:21; Status DC Atropine Sulfate (Atropine Inj) 1 mg STK-MED ONCE .ROUTE ; Start 10/13/16 at 14: 20; Stop 10/13/16 at 14:21; Status DC Lactulose (Lactulose Liq) 30 ml DAILY PO Last administered on 10/21/16 08:03; Start 10/14/16 at 09:00; Stop 10/21/16 at 10:44; Status DC Prednisone (predniSONE LIQ) 10 mg Taper DAILY PO Last administered on 10/21/16 08:04; Start 10/17/16 at 09:00; Stop 10/21/16 at 09:34; Status DC Bisacodyl (Dulcolax Supp) 10 mg ONCE ONCE RECTAL Last administered on 10:27; Start 10/15/16 at 08:45; Stop 10/15/16 at 08:46; Status DC Water (Free Water) VOLUME OF WATER: ( 200 ) ML Q8HR G-TUBE Last administered on 10/16/16 05:47; Start 10/15/16 at 14:00; Stop 10/16/16 at 06:17; Status DC Metoprolol Tartrate (Lopressor Inj) 5 mg Q6H IV PUSH Last administered on 11:41; Start 10/15/16 at 13:00; Stop 10/23/16 at 09:55; Status DC Meperidine HCl (Demerol Inj) 50 mg Q8H PRN IV PUSH SHIVERING Last administered on 10/16/16 21:10; Start 10/15/16 at 12:15; Stop 10/18/16 at 17:54; Status DC Acetaminophen (Tylenol) 650 mg Q4H PRN PO FEVER; Start 10/15/16 at 12:15; Stop 10/18/16 at 12:04; Status DC Acetaminophen (Tylenol Supp) 650 mg Q4H PRN [place] FEVER; Start 10/15/16 at 12:15 Water (Free Water) 200 ml Q6HR G-TUBE ; Start 10/16/16 at 07:00; Stop 10/16/16 at 07:00; Status DC Quetiapine Fumarate (SEROquel) 100 mg Q8HR PO Last administered on 10/18/16 14 :36; Start 10/16/16 at 06:15; Stop 10/18/16 at 17:54; Status DC Water (Free Water) 300 ml Q4HR G-TUBE Last administered on 10/17/16 10:52; Start 10/16/16 at 06:45; Stop 10/17/16 at 11:09; Status DC Oxycodone HCl (Roxicodone Intensol Liq) 10 mg Q4H PO Last administered on 06:32; Start 10/16/16 at 06:45; Stop 10/18/16 at 17:54; Status DC Propranolol HCl (Inderal) 10 mg Q8HR PO Last administered on 10/17/16 09:24; Start 10/16/16 at 06:33; Stop 10/17/16 at 09:54; Status DC Furosemide (Lasix Inj) 40 mg ONCE ONCE IV PUSH Last administered on 10/16/16 11:40; Start 10/16/16 at 11:30; Stop 10/16/16 at 11:31; Status DC Furosemide (Lasix Inj) 20 mg DAILY IV PUSH Last administered on 10/18/16 08:43 ; Start 10/17/16 at 09:00; Stop 10/19/16 at 07:46; Status DC Nicardipine HCl 25 mg 25 mg STK-MED ONCE .ROUTE ; Start 10/17/16 at 09:36; Stop 10/17/16 at 09:37; Status DC Nicardipine HCl/ Sodium Chloride (Cardene Inj/NS 250 ml Inj) 260 ml @ 0 mls/hr TITRATE IV Last administered on 10/17/16 10:37; Start 10/17/16 at 09:15; Stop 10/17/16 at 11:39; Status DC Propranolol HCl (Inderal) 10 mg Q6HR PO Last administered on 10/22/16 11:58; Start 10/17/16 at 12:00; Stop 10/22/16 at 16:43; Status DC Info 1 1 UNSCH XX ; Start 10/17/16 at 11:00 Nicardipine HCl/ Sodium Chloride (Cardene Inj/NS 250 ml Inj) 250 ml @ 0 mls/hr TITRATE IV Last administered on 10/22/16 16:49; Start 10/17/16 at 11:45; Stop 10/22/16 at 20:17; Status DC Lidocaine/ Epinephrine (Xylocaine-Epi 1%-1:100,000 Inj) 30 ml STK-MED ONCE .ROUTE Last administered on 10/18/16 12:03; Start 10/18/16 at 10:37; Stop at 10:38; Status DC Thrombin (Thrombin Top Soln) 10,000 units STK-MED ONCE .ROUTE Last administered on 10/18/16 12:03; Start 10/18/16 at 10:37; Stop 10/18/16 at 10:38 ; Status DC Gelatin (Gelfoam 100 Top) 1 foam STK-MED ONCE .ROUTE Last administered on 12:03; Start 10/18/16 at 10:37; Stop 10/18/16 at 10:38; Status DC Gentamicin Sulfate (Gentamicin Inj) 240 mg STK-MED ONCE .ROUTE Last administered on 10/18/16 12:03; Start 10/18/16 at 10:54; Stop 10/18/16 at 10:55 ; Status DC Vancomycin HCl 1000 mg 1,000 mg STK-MED ONCE .ROUTE Last administered on 11:45; Start 10/18/16 at 11:13; Stop 10/18/16 at 11:14; Status DC Cefazolin Sodium/ Dextrose (Ancef 2 Gm Premix) 50 ml @ As Directed STK-MED ONCE .ROUTE ; Start 10/18/16 at 11:13; Stop 10/18/16 at 11:14; Status DC Levetriacetam 1000 mg 1,000 mg STK-MED ONCE IV Last administered on 10/18/16 11:50; Start 10/18/16 at 11:13; Stop 10/18/16 at 11:14; Status DC Potassium Chloride/Sodium Chloride (NS + KCl 20 Meq Inj) 1,000 ml @ 100 mls/hr Q10H IV Last administered on 10/19/16 08:55; Start 10/18/16 at 11:43; Stop at 09:50; Status DC IV Flush (NS Flush) 2 ml UNSCH PRN IVF FLUSH AFTER USING IV ACCESS; Start 10/18 at 11:45 IV Flush 2 ml 2 ml BID IVF Last administered on 10/31/16 07:35; Start at 21:00 Cefazolin Sodium/ Dextrose 50 ml @ 100 mls/hr Q8H IV Last administered on 10/19 03:51; Start 10/18/16 at 19:00; Stop 10/19/16 at 07:52; Status DC Levetriacetam/ Sodium Chloride (Keppra Inj/NS Inj) 105 ml @ 400 mls/hr Q12H IV ; Start 10/18/16 at 12:00; Stop 10/18/16 at 12:00; Status DC Bisacodyl (Dulcolax Supp) 10 mg DAILY PRN [place] CONSTIPATION Last administered on 10/18/16 14:36; Start 10/18/16 at 11:45 Docusate Sodium (Colace) 100 mg BID PO Last administered on 10/29/16 21:00; Start 10/18/16 at 21:00 Pantoprazole Sodium (Protonix) 40 mg DAILY PO ; Start 10/19/16 at 09:00; Stop at 09:00; Status DC Pantoprazole Sodium (Protonix Inj) 40 mg DAILY IVP Last administered on 07:35; Start 10/19/16 at 09:00 Ondansetron HCl (Zofran Inj) 4 mg Q6H PRN IV NAUSEA OR VOMITING; Start at 11:45 Calcium Gluconate 1 gm 1 gm UNSCH PRN IV SEE LABEL COMMENTS; Start 10/18/16 at 11:45 Potassium Chloride 100 ml @ 50 mls/hr UNSCH PRN IV POTASSIUM LESS THAN 4 Last administered on 10/25/16 09:35; Start 10/18/16 at 11:45 Magnesium Sulfate/ Sodium Chloride (Magnesium Sulfate Inj/NS Inj) 108 ml @ 108 mls/hr UNSCH PRN IV MAGNESIUM LESS THAN 2; Start 10/18/16 at 11:45 Acetaminophen/ Hydrocodone Bitart (Helper 10-325 Mg) 1 tab Q4H PRN PO PAIN SCALE 1 TO 5; Start 10/18/16 at 11:45; Stop 10/19/16 at 07:46; Status DC Acetaminophen/ Hydrocodone Bitart (Helper 10-325 Mg) 2 tab Q4H PRN PO PAIN SCALE 6 TO 10; Start 10/18/16 at 11:45; Stop 10/19/16 at 07:46; Status DC Morphine Sulfate (Morphine Inj) 2 mg Q2H PRN IV PUSH PAIN SCALE 1 TO 6; Start 10/18/16 at 11:45; Stop 10/18/16 at 17:54; Status DC Morphine Sulfate (Morphine Inj) 4 mg Q2H PRN IV PUSH PAIN SCALE 7 TO 10; Start 10/18/16 at 11:45; Stop 10/18/16 at 17:54; Status DC Acetaminophen (Tylenol) 650 mg Q4H PRN PO TEMPERATURE > 101.5 F Last administered on 10/31/16 13:37; Start 10/18/16 at 11:45 Fentanyl Citrate 250 mcg 250 mcg STK-MED ONCE .ROUTE ; Start 10/18/16 at 13:49; Stop 10/18/16 at 13:50; Status DC Ciprofloxacin/ Dextrose 200 ml @ 200 mls/hr Q24H IV Last administered on 21:13; Start 10/18/16 at 20:00; Stop 10/19/16 at 07:46; Status DC Propofol 100 ml @ 0 mls/hr TITRATE IV ; Start 10/19/16 at 00:45; Stop 10/19/16 at 00:45; Status DC Norepinephrine Bitartrate/Sodium Chloride (Levophed Inj/NS 250 ml Inj) 250 ml @ 0 mls/hr TITRATE IV Last administered on 10/20/16 11:19; Start 10/19/16 at 04: 07; Stop 10/22/16 at 20:18; Status DC Terbutaline Sulfate 1 mg 1 mg UNSCH PRN SQ For Extravasation; Start 10/19/16 at 04:00; Stop 10/19/16 at 07:46; Status DC Pharmacy Profile Note 0 ml @ 0 mls/hr UNSCH OTHER ; Start 10/19/16 at 07:45 Vancomycin HCl 1250 mg/Sodium Chloride 262.5 ml @ 262.5 mls/ hr ONCE ONCE IV ; Start 10/19/16 at 07:45; Stop 10/19/16 at 08:44; Status UNV Ceftriaxone Sodium 2000 mg/ Sodium Chloride 100 ml @ 200 mls/hr Q12H IV Last administered on 10/22/16 20:34; Start 10/19/16 at 08:00; Stop 10/22/16 at 20:41; Status DC Midazolam HCl (Versed Inj) 100 ml @ 0 mls/hr TITRATE IV Last administered on 14:35; Start 10/19/16 at 08:00; Stop 10/22/16 at 11:44; Status DC Midazolam HCl (Versed Inj) 5 mg STAT ONCE IV Last administered on 10/19/16 08 :25; Start 10/19/16 at 08:00; Stop 10/19/16 at 08:03; Status DC Mannitol 25 gm 25 gm STAT ONCE IV Last administered on 10/19/16 08:29; Start 10/19/16 at 08:00; Stop 10/19/16 at 08:05; Status DC Sodium Chloride 500 ml @ 40 mls/hr UNSCH IV Last administered on 10/20/16 16: 55; Start 10/19/16 at 08:00; Stop 10/20/16 at 22:11; Status DC Vancomycin HCl 1800 mg/Sodium Chloride 518 ml @ 250 mls/hr Q12H IV Last administered on 10/19/16 21:33; Start 10/19/16 at 09:00; Stop 10/19/16 at 23:59 ; Status DC Propofol (Diprivan 1000 Mg/100ml Inj) 100 ml @ 0 mls/hr TITRATE IV Last administered on 10/22/16 12:45; Start 10/19/16 at 10:00; Stop 10/28/16 at 09:42; Status DC Miscellaneous Information SPECIFIC LAB TO BE LETTY... ONCE ONCE XX Last administered on 10/20/16 20:33; Start 10/20/16 at 20:45; Stop 10/20/16 at 20:46; Status DC Vancomycin HCl 1750 mg/Sodium Chloride 517.5 ml @ 257.5 mls/ hr Q12H IV Last administered on 10/22/16 09:35; Start 10/20/16 at 09:00; Stop 10/22/16 at 20:21; Status DC Lactated Ringer's 1,000 ml @ As Directed STK-MED ONCE IV ; Start 10/18/16 at 12 :00; Stop 10/19/16 at 11:49; Status DC Sodium Chloride 500 ml @ As Directed STK-MED ONCE IV ; Start 10/18/16 at 12:00 ; Stop 10/19/16 at 11:49; Status DC Levetriacetam 100 ml @ 400 mls/hr Q12HR IV Last administered on 10/19/16 21: 33; Start 10/19/16 at 21:00; Stop 10/20/16 at 00:48; Status DC Levetriacetam 100 ml @ 400 mls/hr BOLUS ONCE IV Last administered on 13:45; Start 10/19/16 at 13:45; Stop 10/19/16 at 13:59; Status DC Sodium Chloride 250 ml @ 500 mls/hr BOLUS ONCE IV Last administered on 16:27; Start 10/19/16 at 17:00; Stop 10/19/16 at 17:29; Status DC Levetriacetam/ Sodium Chloride (Keppra Inj/NS Inj) 115 ml @ 420 mls/hr Q12HR IV Last administered on 10/21/16 08:03; Start 10/20/16 at 09:00; Stop 10/21/16 at 16:10; Status DC Magnesium Citrate 300 ml 300 ml ONCE ONCE PO Last administered on 10/20/16 08: 24; Start 10/20/16 at 08:15; Stop 10/20/16 at 08:16; Status DC Fosphenytoin Sodium/Sodium Chloride (Cerebyx Inj/NS Inj) 130 ml @ 390 mls/hr STAT ONCE IV Last administered on 10/20/16 09:45; Start 10/20/16 at 09:45; Stop 10/20/16 at 10:04; Status DC Fosphenytoin Sodium 200 mgpe 200 mgpe Q12HR IV ; Start 10/20/16 at 21:00; Stop at 21:00; Status DC Fosphenytoin Sodium 200 mgpe/ Sodium Chloride 54 ml @ 216 mls/hr Q12HR IV Last administered on 10/22/16 09:00; Start 10/20/16 at 21:00; Stop 10/22/16 at 20: 15; Status DC Fentanyl Citrate 250 ml @ 0 mls/hr TITRATE IV Last administered on 10/23/16 19: 54; Start 10/20/16 at 22:15; Stop 10/24/16 at 09:35; Status DC Sodium Chloride (Sodium Chloride 3% Inj) 500 ml @ 40 mls/hr Q12H IV Last administered on 10/21/16 05:32; Start 10/20/16 at 22:45; Stop 10/22/16 at 11:45; Status DC Prednisone (predniSONE LIQ) 10 mg ONCE ONCE PO Last administered on 10/21/16 10:00; Start 10/21/16 at 10:00; Stop 10/21/16 at 10:01; Status DC Prednisone (predniSONE LIQ) 5 mg ONCE ONCE PO Last administered on 10/22/16 08 :22; Start 10/22/16 at 09:00; Stop 10/22/16 at 09:01; Status DC Lactulose (Lactulose Liq) 30 ml TID PO Last administered on 10/29/16 18:32; Start 10/21/16 at 13:00 Polyethylene Glycol (Miralax) 17 gm BID PO Last administered on 10/29/16 20:35 ; Start 10/21/16 at 11:00 Senna/Docusate Sodium (Cynthia-Colace) 1 tab BID PO Last administered on 10/23/16 19:53; Start 10/21/16 at 11:00; Stop 10/24/16 at 09:39; Status DC Magnesium Citrate 300 ml 300 ml ONCE ONCE PO Last administered on 10/21/16 11: 00; Start 10/21/16 at 11:00; Stop 10/21/16 at 11:01; Status DC Levetriacetam/ Sodium Chloride (Keppra Inj/NS Inj) 170 ml @ 420 mls/hr Q12HR IV Last administered on 10/22/16 08:22; Start 10/21/16 at 21:00; Stop 10/22/16 at 20:16; Status DC Furosemide (Lasix Inj) 20 mg ONCE ONCE IV PUSH Last administered on 10/22/16 09:45; Start 10/22/16 at 09:45; Stop 10/22/16 at 09:46; Status DC Miscellaneous Information SPECIFIC LAB TO BE DRAWN:[facility] TROUGH DATE TO BE DR... ONCE ONCE XX Last administered on 10/25/16 08:45; Start 10/25/16 at 08:45 ; Stop 10/25/16 at 08:46; Status DC Water (Free Water) VOLUME OF WATER: ( 200 ) ML Q6HR G-TUBE Last administered on 10/23/16 12:00; Start 10/22/16 at 12:00; Stop 10/23/16 at 16:22; Status DC Methylnaltrexone [place] 12 mg 12 mg ONCE ONCE SQ Last administered on 18:43; Start 10/22/16 at 16:45; Stop 10/22/16 at 16:46; Status DC Magnesium Sulfate/ Dextrose (Magnesium Sulfate 1 Gm Premix) 100 ml @ 100 mls/ hr Q1H IV Last administered on 10/22/16 17:45; Start 10/22/16 at 16:45; Stop 10/22/16 at 18:44; Status DC Propranolol HCl (Inderal) 20 mg Q6HR PO Last administered on 10/31/16 17:43; Start 10/22/16 at 18:00 Labetalol HCl (Trandate Inj) 20 mg Q1H PRN IV PUSH sbp > 140 Last administered on 10/28/16 11:45; Start 10/22/16 at 16:45 Clonidine (Catapres) 0.3 mg Q8HR PO Last administered on 10/31/16 13:15; Start 10/22/16 at 16:42 Furosemide 40 mg 40 mg NOW ONCE IV PUSH Last administered on 10/22/16 20:35; Start 10/22/16 at 20:15; Stop 10/22/16 at 20:17; Status DC Fosphenytoin Sodium 200 mgpe/ Dextrose 54 ml @ 216 mls/hr Q12HR IV Last administered on 10/31/16 07:35; Start 10/22/16 at 21:00 Levetriacetam 2000 mg/Dextrose 170 ml @ 420 mls/hr Q12HR IV Last administered on 10/26/16 09:14; Start 10/22/16 at 21:00; Stop 10/26/16 at 09:58; Status DC Nicardipine HCl 50 mg/Dextrose 270 ml @ 0 mls/hr TITRATE IV Last administered on 10/22/16 21:07; Start 10/22/16 at 20:17; Stop 10/28/16 at 09:42; Status DC Norepinephrine Bitartrate 4 mg/ Dextrose 254 ml @ 0 mls/hr TITRATE IV ; Start at 20:18; Stop 10/24/16 at 09:27; Status DC Thiamine HCl 100 mg/Dextrose 101 ml @ 100 mls/hr Q24H IV Last administered on 10/30/16 20:19; Start 10/23/16 at 20:00 Vancomycin HCl 1750 mg/Dextrose 517.5 ml @ 257.5 mls/ hr Q12H IV Last administered on 10/25/16 09:35; Start 10/22/16 at 21:00; Stop 10/26/16 at 09:19; Status DC Ceftriaxone Sodium/Dextrose (Rocephin Inj/ D5W 100 ml Inj) 100 ml @ 200 mls/hr Q12H IV Last administered on 10/31/16 07:34; Start 10/23/16 at 08:00 Neostigmine Methylsulfate (Prostigmin Inj) 5 mg STAT ONCE IV ; Start 10/23/16 at 15:30; Stop 10/23/16 at 15:31; Status Cancel Neostigmine Methylsulfate (Prostigmin Inj) 5 mg STAT ONCE IV PUSH Last administered on 10/23/16 16:43; Start 10/23/16 at 16:00; Stop 10/23/16 at 16:01; Status DC Atropine Sulfate 1 mg 1 mg STK-MED ONCE .ROUTE ; Start 10/23/16 at 15:50; Stop at 15:51; Status DC Norepinephrine Bitartrate (Levophed-Dextrose Drip) 250 ml @ As Directed STK- MED ONCE IV Last administered on 10/23/16 15:30; Start 10/23/16 at 16:02; Stop 10/23/16 at 16:03; Status DC Water (Free Water) 300 ml Q4HR G-TUBE Last administered on 10/24/16 08:00; Start 10/23/16 at 20:00; Stop 10/24/16 at 09:28; Status DC Furosemide (Lasix Inj) 80 mg ONCE ONCE IV PUSH Last administered on 10/23/16 16:43; Start 10/23/16 at 16:30; Stop 10/23/16 at 16:31; Status DC Folic Acid (Folate) 1 mg DAILY PO Last administered on 10/31/16 07:36; Start 10/25/16 at 09:00 Multivitamins (Theragran) 1 tab DAILY PO Last administered on 10/31/16 07:37; Start 10/25/16 at 09:00 Sennosides (Senna Liq) 8.8 mg BID PO/NG Last administered on 10/31/16 07:39; Start 10/24/16 at 21:00 Bumetanide (Bumex Inj) 1 mg ONCE ONCE IV PUSH Last administered on 10/24/16 10 :07; Start 10/24/16 at 10:00; Stop 10/24/16 at 10:01; Status DC Oxycodone HCl (Roxicodone Intensol Liq) 5 mg Q4H PRN PO pain 4-6; Start at 12:30 Oxycodone HCl (Roxicodone Intensol Liq) 10 mg Q4H PRN PO pain 7-10 Last administered on 10/31/16 10:17; Start 10/24/16 at 12:30 Iohexol (Omnipaque 350 Inj) 100 ml STK-MED ONCE IV Last administered on 11:24; Start 10/23/16 at 11:24; Stop 10/25/16 at 04:22; Status DC Furosemide (Lasix Inj) 80 mg ONCE ONCE IV PUSH Last administered on 10/25/16 11:00; Start 10/25/16 at 11:00; Stop 10/25/16 at 11:01; Status DC Furosemide (Lasix Inj) 40 mg DAILY IV PUSH Last administered on 10/31/16 07:35 ; Start 10/26/16 at 09:00 Potassium Bicarb/ Potassium Chloride (K-Lyte Cl Eff) 50 meq ONCE ONCE PO Last administered on 10/25/16 11:16; Start 10/25/16 at 11:00; Stop 10/25/16 at 11: 01; Status DC Epinephrine HCl (EPINEPHrine (1:10,000) INJ) 1 mg STK-MED ONCE .ROUTE ; Start at 10:53; Stop 10/25/16 at 10:54; Status DC Atropine Sulfate 1 mg 1 mg STK-MED ONCE .ROUTE ; Start 10/25/16 at 10:53; Stop at 10:54; Status DC Phenytoin Sodium/ Sodium Chloride (Dilantin Inj/NS Inj) 120 ml @ 288 mls/hr ONCE ONCE IV Last administered on 10/25/16 19:56; Start 10/25/16 at 19:00; Stop 10/25/16 at 19:24; Status DC Potassium Bicarb/ Potassium Chloride 25 meq 25 meq DAILY TUBE Last administered on 10/31/16 07:37; Start 10/26/16 at 09:00 Vancomycin HCl/ Dextrose (Vancomycin Inj/ D5W Inj) 517.5 ml @ 257.5 mls/ hr Q18H IV Last administered on 10/29/16 14:35; Start 10/26/16 at 12:00; Stop 06/07 at 17:00; Status DC Bumetanide (Bumex Inj) 2 mg ONCE ONCE IV PUSH Last administered on 10/26/16 10 :35; Start 10/26/16 at 10:00; Stop 10/26/16 at 10:16; Status DC Levetriacetam (Keppra Liq) 2,000 mg Q12HR TUBE Last administered on 10/27/16 08:53; Start 10/26/16 at 21:00; Stop 10/27/16 at 09:50; Status DC Fentanyl Citrate (fentaNYL INJ) 200 mcg STK-MED ONCE .ROUTE ; Start 10/26/16 at 13:48; Stop 10/26/16 at 13:49; Status DC Midazolam HCl (Versed Inj) 5 mg STK-MED ONCE .ROUTE ; Start 10/26/16 at 13:48; Stop 10/26/16 at 13:49; Status DC Vecuronium [place] (Norcuron 10 Mg Inj) 10 mg STK-MED ONCE .ROUTE ; Start at 13:49; Stop 10/26/16 at 13:50; Status DC Fentanyl Citrate (fentaNYL INJ) 200 mcg ONCE ONCE IV ; Start 10/26/16 at 14:30; Stop 10/26/16 at 14:31; Status DC Midazolam HCl (Versed Inj) 5 mg NOW ONCE IV ; Start 10/26/16 at 14:30; Stop 10/26 at 14:31; Status DC Vecuronium [place] (Norcuron 10 Mg Inj) 10 mg NOW ONCE IV ; Start 10/26/16 at 14 :30; Stop 10/26/16 at 14:31; Status DC Bumetanide (Bumex Inj) 2 mg ONCE ONCE IV PUSH Last administered on 10/27/16 10 :15; Start 10/27/16 at 09:45; Stop 10/27/16 at 09:48; Status DC Levetriacetam (Keppra Liq) 1,500 mg Q12HR TUBE Last administered on 10/31/16 07:37; Start 10/27/16 at 21:00 Fentanyl Citrate (fentaNYL INJ) 200 mcg STK-MED ONCE .ROUTE Last administered on 10/27/16 10:54; Start 10/27/16 at 10:54; Stop 10/27/16 at 10:55; Status DC Midazolam HCl (Versed Inj) 10 mg STK-MED ONCE .ROUTE ; Start 10/27/16 at 10:54; Stop 10/27/16 at 10:55; Status DC Rocuronium [place] (Zemuron Inj) 50 mg STK-MED ONCE .ROUTE Last administered on 10/27/16 10:54; Start 10/27/16 at 10:54; Stop 10/27/16 at 10:55; Status DC Miscellaneous Information SPECIFIC LAB TO BE DRAWN:VANCOMYCIN TROUGH DATE TO... ONCE ONCE XX Last administered on 10/28/16 17:45; Start 10/28/16 at 17:45; Stop 10/28/16 at 17:46; Status DC Rocuronium [place] (Zemuron Inj) 50 mg STK-MED ONCE .ROUTE Last administered on 10/27/16 11:04; Start 10/27/16 at 11:04; Stop 10/27/16 at 11:05; Status DC Midazolam HCl (Versed Inj) 10 mg NOW ONCE IVP Last administered on 10/27/16 11 :30; Start 10/27/16 at 11:30; Stop 10/27/16 at 11:31; Status DC Fentanyl Citrate (fentaNYL INJ) 200 mcg NOW ONCE IV PUSH Last administered on 10/27/16 11:30; Start 10/27/16 at 11:30; Stop 10/27/16 at 11:31; Status DC Rocuronium [place] (Zemuron Inj) 50 mg NOW ONCE IV PUSH Last administered on 11:30; Start 10/27/16 at 11:30; Stop 10/27/16 at 11:31; Status DC Miscellaneous Information SPECIFIC LAB TO BE DRAWN:VA... ONCE ONCE XX Last administered on 10/29/16 13:00; Start 10/29/16 at 11:45; Stop 10/29/16 at 11:46 ; Status DC Vancomycin HCl/ Dextrose (Vancomycin Inj/ D5W Inj) 515 ml @ 257.5 mls/ hr Q12H IV Last administered on 10/31/16 03:35; Start 10/30/16 at 03:00; Stop at 16:16; Status DC Miscellaneous Information SPECIFIC LAB TO BE LETTY... ONCE ONCE XX Last administered on 10/31/16 15:17; Start 10/31/16 at 14:45; Stop 10/31/16 at 14:46 ; Status DC Propofol 200 mg 200 mg STK-MED ONCE IV ; Start 10/29/16 at 17:43; Stop 10/30/16 at 17:43; Status DC Vancomycin HCl/ Dextrose (Vancomycin Inj/ D5W Inj) 513.5 ml @ 257.5 mls/ hr Q12H IV Last administered on 10/31/16 18:19; Start 10/31/16 at 18:00 Miscellaneous Information SPECIFIC LAB TO BE DRAWN:VANCO TROUGH DATE TO BE .. ONCE ONCE XX ; Start 11/01/16 at 17:45; Stop 11/01/16 at 17:46 Medical Decision Making MDM Remarks Last Impressions Chest X-Ray 10/30/16 0600 Signed Impressions: Service Date/Time: Sunday, October 30, 2016 04:17 - CONCLUSION: Persistent left lower lung consolidation and hazy opacities in the right lower lung. Cosmo Abbasi MD Lower Extremity Ultrasound 10/27/16 0000 Signed Impressions: Service Date/Time: Thursday, October 27, 2016 10:13 - CONCLUSION: No DVT either lower extremity. 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 MD Head CT 10/23/16 0000 Signed Impressions: Service Date/Time: Sunday, October 23, 2016 11:21 - CONCLUSION: 1. Examination quality is degraded by motion artifact. There is decreased midline shift, currently measuring 3 mm compared to 6 mm on the prior study. 2. There are persistent hemorrhagic contusions in the right frontal lobe but they are less well-visualized today either related to interval improvement or related to motion artifact. Red Arenas MD Chest CT 10/23/16 0000 Signed Impressions: Service Date/Time: Sunday, October 23, 2016 11:24 - CONCLUSION: 1. Airspace consolidation within the left upper lobe. This could represent an infectious process. 2. Small bilateral pleural effusions with associated compressive atelectasis in the lower lobes. Red Arenas MD Abdomen/Pelvis CT 10/23/16 0000 Signed Impressions: Service Date/Time: Sunday, October 23, 2016 11:27 - CONCLUSION: 1. No acute finding is identified within the abdomen or pelvis. 2. Anasarca. 3. Stable 7 mm nodule on the left adrenal gland. Small size favors a benign process but is incompletely characterized on this examination. Red Arenas MD Neck CTA 10/12/16 0000 Signed Impressions: Service Date/Time: Wednesday, October 12, 2016 09:27 - CONCLUSION: Mild atherosclerotic changes in the proximal portions of both internal carotid arteries but no significant stenosis. Dez Petersen MD Head CTA 10/12/16 0000 Signed Impressions: Service Date/Time: Wednesday, October 12, 2016 09:27 - CONCLUSION: No evidence of acute vascular injury Red Hoffman MD Pelvis X-Ray 10/11/16 1213 Signed Impressions: Service Date/Time: Tuesday, October 11, 2016 12:02 - CONCLUSION: Satisfactory trauma pelvis appearance. Red Hoffman MD Cervical Spine CT 10/11/16 1213 Signed Impressions: Service Date/Time: Tuesday, October 11, 2016 12:19 - CONCLUSION: Occipital skull fracture. No evidence of acute traumatic injury in the cervical spine Red Hoffman MD Last Impressions Chest X-Ray 10/16/16 0600 Signed Impressions: Service Date/Time: Sunday, October 16, 2016 05:18 - CONCLUSION: No significant change has occurred. Hussein Miller MD Head CT 10/13/16 0000 Signed Impressions: Service Date/Time: Thursday, October 13, 2016 14:49 - CONCLUSION: The midline shift is slightly reduced from 8.5 now 5 mm as well as the extracerebral fluid collection on the right diminished from 8 to now 5 mm. Thin left hygromas fluid collection is appreciated. Remainder the study is stable. Eddie Sena MD Neck CTA 10/12/16 0000 Signed Impressions: Service Date/Time: Wednesday, October 12, 2016 09:27 - CONCLUSION: Mild atherosclerotic changes in the proximal portions of both internal carotid arteries but no significant stenosis. Dez Petersen MD Head CTA 10/12/16 0000 Signed Impressions: Service Date/Time: Wednesday, October 12, 2016 09:27 - CONCLUSION: No evidence of acute vascular injury Red Hoffman MD Pelvis X-Ray 10/11/16 1213 Signed Impressions: Service Date/Time: Tuesday, October 11, 2016 12:02 - CONCLUSION: Satisfactory trauma pelvis appearance. Red Hoffman MD Chest CT 10/11/16 1213 Signed Impressions: Service Date/Time: Tuesday, October 11, 2016 12:19 - CONCLUSION: Negative for acute traumatic injury. There is no pneumothorax. Davis Nolasco MD FACR Cervical Spine CT 10/11/16 1213 Signed Impressions: Service Date/Time: Tuesday, October 11, 2016 12:19 - CONCLUSION: Occipital skull fracture. No evidence of acute traumatic injury in the cervical spine Red Hoffman MD Abdomen/Pelvis CT 10/11/16 1213 Signed Impressions: Service Date/Time: Tuesday, October 11, 2016 12:19 - CONCLUSION: Negative CT scan of the abdomen and pelvis for acute traumatic injury. Davis Nolasco MD FACR Last Impressions Chest X-Ray 10/16/16 0600 Signed Impressions: Service Date/Time: Sunday, October 16, 2016 05:18 - CONCLUSION: No significant change has occurred. Hussein Miller MD Head CT 10/13/16 0000 Signed Impressions: Service Date/Time: Thursday, October 13, 2016 14:49 - CONCLUSION: The midline shift is slightly reduced from 8.5 now 5 mm as well as the extracerebral fluid collection on the right diminished from 8 to now 5 mm. Thin left hygromas fluid collection is appreciated. Remainder the study is stable. Eddie Sena MD Neck CTA 10/12/16 0000 Signed Impressions: Service Date/Time: Wednesday, October 12, 2016 09:27 - CONCLUSION: Mild atherosclerotic changes in the proximal portions of both internal carotid arteries but no significant stenosis. Dez Petersen MD Head CTA 10/12/16 0000 Signed Impressions: Service Date/Time: Wednesday, October 12, 2016 09:27 - CONCLUSION: No evidence of acute vascular injury Red Hoffman MD Pelvis X-Ray 10/11/16 1213 Signed Impressions: Service Date/Time: Tuesday, October 11, 2016 12:02 - CONCLUSION: Satisfactory trauma pelvis appearance. Red Hoffman MD Chest CT 10/11/16 1213 Signed Impressions: Service Date/Time: Tuesday, October 11, 2016 12:19 - CONCLUSION: Negative for acute traumatic injury. There is no pneumothorax. Davis Nolasco MD FACR Cervical Spine CT 10/11/16 1213 Signed Impressions: Service Date/Time: Tuesday, October 11, 2016 12:19 - CONCLUSION: Occipital skull fracture. No evidence of acute traumatic injury in the cervical spine Red Hoffman MD Abdomen/Pelvis CT 10/11/16 1213 Signed Impressions: Service Date/Time: Tuesday, October 11, 2016 12:19 - CONCLUSION: Negative CT scan of the abdomen and pelvis for acute traumatic injury. Davis Nolasco MD FACR This document patient Reflects my encounter on 10/15/2016 when the patient was assessed during morning Rounds Last Impressions Head CT 10/13/16 0000 Signed Impressions: Service Date/Time: Thursday, October 13, 2016 14:49 - CONCLUSION: The midline shift is slightly reduced from 8.5 now 5 mm as well as the extracerebral fluid collection on the right diminished from 8 to now 5 mm. Thin left hygromas fluid collection is appreciated. Remainder the study is stable. Eddie Sena MD Neck CTA 10/12/16 0000 Signed Impressions: Service Date/Time: Wednesday, October 12, 2016 09:27 - CONCLUSION: Mild atherosclerotic changes in the proximal portions of both internal carotid arteries but no significant stenosis. Dez Petersen MD Head CTA 10/12/16 0000 Signed Impressions: Service Date/Time: Wednesday, October 12, 2016 09:27 - CONCLUSION: No evidence of acute vascular injury Red Hoffman MD Pelvis X-Ray 10/11/16 121 Signed Impressions: Service Date/Time: Tuesday, October 11, 2016 12:02 - CONCLUSION: Satisfactory trauma pelvis appearance. Red Hoffman MD Chest CT 10/11/16 1213 Signed Impressions: Service Date/Time: Tuesday, October 11, 2016 12:19 - CONCLUSION: Negative for acute traumatic injury. There is no pneumothorax. Davis Nolasco MD FACR Cervical Spine CT 10/11/16 121 Signed Impressions: Service Date/Time: Tuesday, October 11, 2016 12:19 - CONCLUSION: Occipital skull fracture. No evidence of acute traumatic injury in the cervical spine Red Hoffman MD Abdomen/Pelvis CT 10/11/16 1213 Signed Impressions: Service Date/Time: Tuesday, October 11, 2016 12:19 - CONCLUSION: Negative CT scan of the abdomen and pelvis for acute traumatic injury. Davis Nolasco MD FACR Plan Plan Remarks 56 year old male trauma alert with: Occipital skull fracture TBI with bifrontal contusions, bifrontal, right temporoparietal subdural hemorrhage, subarachnoid hemorrhage History of alcohol abuse Suspected alcohol withdrawal COPD Respiratory failure requiring mechanical ventilation Attending Statement Continue supportive care Neurologically slowly improving Chetan Cruz MD Oct 31, 2016 19:39
[2016-10-31] MEDS: THIAMINE IV SCH ×2 (20:19)
[2016-10-31] MEDS ORDERED: VALPROATE INJ 500 MG in SODIUM CHLORIDE 0.9% INJ 100 ML IV ONE (22:15)
[2016-10-31] MEDS ORDERED: DEXTROSE 5% IV ONE ×2 (22:15)
[2016-10-31] MEDS ORDERED: VALPROATE IV ONE ×2 (22:15)
[2016-10-31] MEDS ORDERED: WATER IV ONE ×2 (22:15)
[2016-11-01] VITALS (17 sets, daily range): BP systolic 108–120; BP diastolic 58–67; PULSE 79–102; RESP 22–33; TEMP 98.6–100.9; O2SAT 92–99
[2016-11-01] MEDS: CHLORHEXIDINE GLUCONATE 2 % 1 PACK (2 CLOTHS) TOP SCH (03:09)
[2016-11-01] MEDS: cloNIDine HCL 0.3 MG TAB PO SCH ×3 (04:47→21:22)
[2016-11-01] MEDS: DEXTROSE 5% IV SCH ×12 (04:47→21:21)
[2016-11-01] MEDS: PROPRANOLOL HCL 20 MG TAB PO SCH ×3 (04:47→18:10)
[2016-11-01] MEDS: VANCOMYCIN IV SCH ×2 (04:47)
[2016-11-01] MEDS: WATER IV SCH ×12 (04:47→21:21)
[2016-11-01] MEDS: VALPROATE IV SCH ×6 (04:47→21:21)
[2016-11-01] MEDS: CEFTRIAXONE IV SCH ×2 (08:00)
[2016-11-01] MEDS: POLYETHYLENE GLYCOL 17 GM PKG PO SCH ×2 (08:58→21:00)
[2016-11-01] MEDS: LACTULOSE SYRUP 20 GM/30 ML CUP PO SCH ×3 (08:58→17:45)
[2016-11-01] MEDS: MAGNESIUM HYDROXIDE SUSP 30 ML CUP PO SCH (08:58)
[2016-11-01] MEDS: SENNOSIDES SYRUP 8.8 MG/5 ML CUP PO/NG SCH ×2 (08:58→21:00)
[2016-11-01] MEDS: DOCUSATE SODIUM 100 MG CAP PO SCH ×2 (08:58→21:00)
[2016-11-01] MEDS: CHLORHEXIDINE 0.12% (ORAL KIT) 15 ML CUP MT SCH ×2 (09:19→21:22)
[2016-11-01] MEDS: FUROSEMIDE 40 MG/4 ML VIAL IV PUSH SCH (09:19)
[2016-11-01] MEDS: POTASSIUM CHLORIDE 25 MEQ EFFERVESCENT TAB TUBE SCH (09:20)
[2016-11-01] MEDS: FOLIC ACID 1 MG TAB PO SCH (09:20)
[2016-11-01] MEDS: MULTIVITAMIN TAB PO SCH (09:20)
[2016-11-01] MEDS: PANTOPRAZOLE SODIUM 40 MG VIAL IVP SCH (09:20)
[2016-11-01] MEDS: SODIUM CHLORIDE 0.9% FLUSH 5 ML FLUSH IVF SCH ×2 (09:20→21:23)
[2016-11-01] MEDS: levETIRAcetam 500 MG/5 ML UDC TUBE SCH ×2 (09:20→21:22)
--- NOTE | 2016-11-01 10:09 | HHI.CCPN ---
Subjective Brief History Elderly male who was brought in as a trauma alert after he fell 10 feet from a ladder. GCS 6 initially at the scene subsequently improved to 11 on arrival in the ER. Patient was evaluated by trauma team and subsequently underwent imaging studies and transferred to the ICU. Imaging studies revealed an occipital skull fracture, subdural and subarachnoid blood. Patient was awake and alert at the time of evaluation and following commands and moving all 4 extremities. He could not hear and had some speech difficulty at the time of my evaluation with difficulty in communication though was following commands appropriately. C spine cleared by Neurosurgery at the time of my evaluation. Patient developed worsening agitation despite Precedex last evening. Since then patient had to be intubated ventilated and is currently on propofol fentanyl and Versed drips to keep him down When these are discontinued or less and patient starts biting on the to and becomes restless moves all [address] scan of the head reveals worsening subdural and subarachnoid hemorrhage and the midline shift of about 8 mm 24 Hour Review/Hospital Course Patient has worsened in last 24 hours Repeat CAT scan reveals worsening subdural bleeding over the right parieto- occipital area and [id number] shift of about 8 mm Patient is elderly and a heavy drinker and therefore has atrophy of the brain so there is some more space that allows for compartment pressure IE ICP to remain low We will discuss with neurosurgery about placing ICP monitor or even draining subdural hematoma at this time. Patient remains hyperventilated and on hypertonic saline nonetheless will require bolt placement to assess for ICP and the effectiveness of the therapy 10/13/2016 Patient neurologically unchanged Repeat CAT scan shows some decrease in subdural hematoma and slight decrease in shift yet still severe brain injury At the family's request a second opinion neurosurgery consult was placed and second neurosurgeon has evaluated the patient She will have a long-term recovery here and have discussed this at length with the family Patient may need tracheostomy and PEG tube placement as the part of the appropriate treatment 10/14/2016 Patient with a severe brain injury and subdural hematoma and intraparenchymal hemorrhage Underwent yesterday ventriculostomy placement ICP is within physiologic range at this time and the subdural hematoma size has somewhat decreased There is no change in the neurologic status over the last 24 hours 10/17/16 No change in neurologic status Patient withdraws to pain but does not open eyes or communicates in anyway All sedation has been removed and ventilatory settings been gradually decreased in order to allow 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 Hypertonic saline was held for profound hypernatremia. EEG showed complete moderate encephalopathy. He will require tracheostomy and gastrostomy tube placement once stable. There was 1 episode of mucous plugging which resolved with aggressive suctioning. 10/23/16 Plan was for tracheostomy today, patient however has elevated ICPs into the 30s We will defer tracheostomy until patient is stable 10/24/16 ICP is improved following administration of neostigmine and a large bowel movement He is likely ready for tracheostomy now, as long as his ICPs remain low Palliative care consult placed for tomorrow, will await input from palliative care and family prior to tracheostomy and feeding tube placement Prognosis at this point remains grim for meaningful recovery 10/25/16 Patient with severe brain injury not showing any signs of neurologic recovery and last few days ICPs remain low apparently throughout the weekend and ventriculostomy has been removed by Dr. Cruz Palliative care consult is greatly appreciated and it helps us tremendously and decision-making and communication as far as this patient's further care is concerned At this point patient's friends appear to be thinking that he is a fighter and according to Dr. Cruz he has chance of meaningful recovery Therefore we will proceed with tracheostomy and PEG placement in next day or 2 10/26/16 No change in current status No neurologic improvement Able to wean the ventilator gradually however due to inability to protect airway patient will need tracheostomy and PEG placement We'll proceed with tracheostomy tomorrow 10/27/16 Patient with the significant head injury remains on the ventilator no change in neurologic status Weaning at this point is inhibited by the fact that patient cannot protect upper airway and due to the low Pawel Coma Scale Patient has undergone tracheostomy today and will have a PEG placed Copious secretions At this point we'll be able to wean as tolerated considering the presence of tracheostomy. 10/29/2016 PTD: 18 Pt is off all sedation. He is still not arousing. Questionable response to painful stimuli. The family will be meeting today with palliative care to discuss goals of care. 10/30/2016 PTD: 19 Pt now opens his eyes, slightly, but does not follow commands. Pt remains off sedation. Plan for weaning further from the vent. TF will resume 24 hrs post PEG placement as per protocol. 10/31/2016 PTD: 20 Patient on CPAP this morning. Originally respiratory rate equals 30, however proposed pain medication administration - he is now breathing comfortably without distress on CPAP. According to nurses, patient was following commands last night. He would give the "thumbs-up" on his right hand, Wiggle his toes on the right side, and smile. This morning he is comfortable, but lethargic post pain medication administration. 11/01/2016 PTD: 21 Attempt to progress patient from CPAP to T piece. Once patient can be maintained on T-piece he can transferred to the floor. Case management is working diligently on placement. (Osiris Pittman) Objective Vital Signs Date Time Temp Pulse Resp B/P Pulse Ox O2 Delivery O2 Flow Rate FiO2 11/01/16 08:39 99 40 11/01/16 06:00 79 11/01/16 04:00 100.0 22 111/60 Intake and Output 10/31/16 10/31/16 11/01/16 08:00 16:00 00:00 Intake Total 1150 ml 729 ml 2023 ml Output Total 370.0 ml 380 ml 1100.0 ml Balance 780.0 ml 349 ml 923.0 ml (Osiris Pittman) Result Diagram: 10/31/16 0508 10/31/16 0353 Imaging Last Impressions Chest X-Ray 10/31/16 0600 Signed Impressions: Service Date/Time: Monday, October 31, 2016 04:56 - CONCLUSION: Persistent left lower lobe consolidation and ill-defined opacities in the right lower lung. Cosmo Abbasi MD Lower Extremity Ultrasound 10/27/16 0000 Signed Impressions: Service Date/Time: Thursday, October 27, 2016 10:13 - CONCLUSION: No DVT either lower extremity. 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 MD Head CT 10/23/16 0000 Signed Impressions: Service Date/Time: Sunday, October 23, 2016 11:21 - CONCLUSION: 1. Examination quality is degraded by motion artifact. There is decreased midline shift, currently measuring 3 mm compared to 6 mm on the prior study. 2. There are persistent hemorrhagic contusions in the right frontal lobe but they are less well-visualized today either related to interval improvement or related to motion artifact. Red Arenas MD Chest CT 10/23/16 0000 Signed Impressions: Service Date/Time: Sunday, October 23, 2016 11:24 - CONCLUSION: 1. Airspace consolidation within the left upper lobe. This could represent an infectious process. 2. Small bilateral pleural effusions with associated compressive atelectasis in the lower lobes. Red Arenas MD Abdomen/Pelvis CT 10/23/16 0000 Signed Impressions: Service Date/Time: Sunday, October 23, 2016 11:27 - CONCLUSION: 1. No acute finding is identified within the abdomen or pelvis. 2. Anasarca. 3. Stable 7 mm nodule on the left adrenal gland. Small size favors a benign process but is incompletely characterized on this examination. Red Arenas MD Neck CTA 10/12/16 0000 Signed Impressions: Service Date/Time: Wednesday, October 12, 2016 09:27 - CONCLUSION: Mild atherosclerotic changes in the proximal portions of both internal carotid arteries but no significant stenosis. Dez Petersen MD Head CTA 10/12/16 0000 Signed Impressions: Service Date/Time: Wednesday, October 12, 2016 09:27 - CONCLUSION: No evidence of acute vascular injury Red Hoffman MD Pelvis X-Ray 10/11/16 1213 Signed Impressions: Service Date/Time: Tuesday, October 11, 2016 12:02 - CONCLUSION: Satisfactory trauma pelvis appearance. Red Hoffman MD Cervical Spine CT 10/11/16 1213 Signed Impressions: Service Date/Time: Tuesday, October 11, 2016 12:19 - CONCLUSION: Occipital skull fracture. No evidence of acute traumatic injury in the cervical spine Red Hoffman MD Objective Remarks GENERAL: This is a 56 year old male mechanically ventilated. SKIN: Warm and dry. Generalized edema noted. HEAD: Atraumatic. Normocephalic. EYES: PERRLA ENT: No nasal bleeding or discharge. Mucous membranes pink and moist. NECK: Trach. Trachea midline. No JVD. CARDIOVASCULAR: Regular rate and rhythm. CM shows sinus tach. HR = 79-94 RESPIRATORY: Vent. No accessory muscle use. Clear but decreased to auscultation. Breath sounds equal bilaterally. GASTROINTESTINAL: Abdomen soft, non-tender, nondistended. BS + x [address] in [address]. Estrella catheter in place to bedside drainage bag with clear yellow urine. MUSCULOSKELETAL: Extremities without cyanosis, or edema. No obvious deformities. + peripheral pulses. NEUROLOGICAL: Mechanically ventilated. Patient opens eyes slightly. Pt does not follow commands. (Osiris Pittman) Urinary Catheter Assessment Urinary Catheter: Yes Assessment to: Continue (Osiris Pittman) Vascular Central Line Catheter Vascular Central Line Catheter: No (Osiris Pittman) Assessment and Plan Assessment: (1) Encephalopathy acute ICD Code: G93.40 Status: Acute (2) Fracture of occipital bone of skull with loss of consciousness ICD Code: S02.119A Status: Acute (3) Subdural hemorrhage following injury ICD Code: S06.5X9A Status: Acute (4) Alcohol dependence ICD Code: F10.20 Status: Acute (5) Traumatic brain injury ICD Code: S06.9X9A Status: Acute (6) Seizure ICD Code: R56.9 Status: Acute (7) Pneumonia ICD Code: J18.9 Status: Acute (8) Pain ICD Code: R52 Status: Acute (9) SAH (subarachnoid hemorrhage) ICD Code: I60.9 Status: Acute Plan [place]: This is a 56-year-old male who sustained a fall from a ladder of approximately 10 feet. He landed on his head. GCS 3 at the scene, and bystanders performed CPR. PMHx: ETOH (12-15 beers daily) drinks beer with morning coffee, 2 PPD smoker, Hep C INJURIES: SAH SDH Large occipital skull fx Aspiration Assessment and plan by systems: NEUROLOGICAL: Pt is off all sedation. Provide analgesia for comfort and pain - oxycodone via tube Seizure prophylaxis - Keppra, and Cerebyx. Valproic acid ordered by neurology. HOB elevated 30 degrees Hyponatremia status - NA - 134 + peripheral pulses x 4 extremities. Patient questionably extends to bilateral upper extremities, and withdraws in the lower extremities to deep painful stimuli. CARDIOVASCULAR: HR = 90-96. Sinus rhythm. BP = WNL Continually monitor for hemodynamic instability (shock and hypotension). BP meds - hydralazine, propranolol, clonidine. Diuretics - Lasix 40 daily with 25 mEq potassium daily Follow CMP Electrolyte protocol in place RESPIRATORY: Vent settings AC 600 / 6 / 40% / +8 CPAP trials and tolerating well. Progressed to T piece today. Increase PEEP carefully (to assist in oxygenation by recruiting alveoli.) O2 Sats - Monitor for hypoxemia Edema status - generalized edema Lung sounds - CTA but decreased throughout. Pulmonary toilet = L&S. Bronchodilators - Breathing treatments duonebs. Chest X-Ray results - persistent left lower lobe consolidation and ill-defined opacities in the right lower lung. Sputum culture - 10/24: Moderate growth of respiratory eric. Antibiotics - discontinued at this time. VAP protocol in place Labs tomorrow Chest X-Ray tomorrow GASTROINTESTINAL: Diet: Jevity at 60 cc/hr Bowel sounds - + x 4 quads. Bowel regimen: Cynthia-Colace, M OM. Lactulose 3 times a day. MiraLAX. Bisacody lPR . LBM: 10/[address] with brown liquid stool. RENAL / URINARY: I&O - -1561 BUN / creat [address] to bedside drainage bag Urine culture - 10/24: No growth in 48 hours ENDOCRINE: BGM = 133 via AM labs SSI HEMATOLOGY: H&H 9.1 / 26.1 Continue to monitor for signs and symptoms of bleeding. Evaluate need for IVC filter. Transfuse for < 7.0 US Lower extremity study 10/27: No DVT in bilateral legs Monitor patient for any bleeding complications. INFECTIOUS DISEASE: Follow CBC WBC - 20.5 Fevers - low grade fevers Administer antipyretics for temp as needed. Blood cultures 10/24: Negative Urine 10/24 negative Sputum cultures 10/24 negative IV antibiotics : Discontinued Monitor pneumonia evolution with repeat chest X-Rays as needed. Maintain vigorous aseptic care of central line to avoid blood stream infections. Consider a consult to ID for further management. PROPHYLAXIS: VAP protocol in place GI : Protonix IV DVT - Mechanical VTE with SCDs. Chemical management contraindicated due to SAH/ SDH. (Awaiting neurosurgery clearance) SKIN: Warm, dry. ACTIVITY: Status - BR PT and OT ordered. CASE MANAGEMENT: Consulted for assist with DC planning. Placement - disposition - TBD. Possible transfer for long-term care to [facility] EMOTIONAL SUPPORT: Provided to patient and family. Plan of care discussed. Questions answered to the best of my knowledge. Palliative care has been consulted. Nursing care can be de-escalated to 1:4. This patient is currently critically ill and injured, with traumatic brain injury with respiratory failure due to his injuries. He is being managed in the ICU. The trauma team will round, assess and evaluate the patient on a day to day basis. (Osiris Pittman) Attestation The exam, history, and the medical decision-making described in the above note were completed with the assistance of the mid-level provider. I reviewed and agree with the findings presented. I attest that I had a [id number] encounter with the patient on the same day, and personally performed and documented my assessment and findings in the medical record. Critical care time 35 minutes. (hSerry Parikh MD) Problem Qualifiers (1) Fracture of occipital bone of skull with loss of consciousness: Qualified Code: S02.119A - Fracture of occipital bone of skull with loss of consciousness, closed, initial encounter (2) Subdural hemorrhage following injury: Qualified Code: S06.5X1A - Traumatic subdural hemorrhage with loss of consciousness of 30 minutes or less, initial encounter (3) Traumatic brain injury: Osiris Pittman Nov 01, 2016 10:09 Sherry Parikh MD Nov 04, 2016 17:36
--- NOTE | 2016-11-01 11:36 | HHI.PR ---
Neuropsych Emotional Emotional: UnabletoAssess: Emotional, Anxious/Fearful, Depressed/Sad, Hostile/ Resentful, Irritable/Angry/Frustrate, Labile, Constricted/Blunted Behavior Behavior: Unable to Asses: Behavior, Coping/Acceptance, Cooperative w/ Treatment, Motivation, Frustration Tolerance/[place], Impulsive/Agitated, Suicidal/ Homicidal Risk Cognitive Cognitive: Unable to Asses: Cognitive, Attention/Concentration, Confused/ Orientation, Insight/Awareness, Judgement/Problem-Solving, Memory Psychosocial Psychosocial: Mild: Psychosocial, Family/Other Adjustment, Moderate: Realistic Expectation, Unable to Asses: Self-Esteem/Confidence Progress Notes/Response to Tx Contents of Sessions: Interests Time with Patient: 30 minutes Premorbid psychological status Premorbid Cognitive, Emotional and Behavioral Status: Deferred. 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 The patient has no known psychiatric difficulties. However, substance abuse history is significant for alcohol dependence and tobacco dependence. Behavioral Reactions of Patient and Family/Support System: Tenuous. The patients family has a limited understanding of the complexities of this patient 's brain injury, and the lifestyle barriers that prevent an optimal recovery. They are expected to have ongoing issues of adjustment given the nature of the injury, and this aspect of recovery will require ongoing monitoring. Emotional/Behavioral Status of Patient and Family/Support System: Tenuous. Pertinent issues, if appropriate to this patients clinical care, are described in detail above. Maximizing acute care outcome It is recommended that the patient be monitored for emergent behavioral impulsivity as the medical condition evolves. This patients neuropathological challenges may limit their rehabilitation potential going forward, and these challenges will require specialized therapeutic skills to maximize outcome. Additionally, the patients family is experiencing ongoing issues of adjustment given the traumatic nature of the injury, and they [will need / may benefit] from ongoing psychological assistance. Anticipated Problems Ongoing areas of concern could include behavioral impulsivity, lack of insight and judgment, which is expected to improve with time and treatment, provided he moves past this stage of recovery. Presently, the patient is not following commands. His long duration alcohol dependence and tobacco dependence, which has led to global cerebral atrophy, will serve as a double barrier to his recovery from this injury. Treatment Plan This clinician will continue to follow with you throughout the course of this patients rehabilitation treatment, and I will be available to meet with the patients family/support system to facilitate their understanding and the ongoing care of their family member. The goals of neuropsychological intervention shall be both educational and supportive to the family/support system as is deemed clinically appropriate. [facility] Level: II:General response-total assist Diagnosis: (1) Major neurocognitive disorder as late effect of traumatic brain injury with behavioral disturbance Status: Acute (2) Alcohol dependence Status: Acute Progress Note Narrative Ongoing follow-up of patient both within the context of daily trauma rounds and bedside. This patient's eyes are open, but I am unable to appreciate whether he tracks or follows any commands. I have upgraded him to a Rancho II, and will continue to follow him. Kermit Hughes PhD Nov 01, 2016 11:36 am
--- NOTE | 2016-11-01 12:40 | HHI.NSPN ---
(Viky Bernal) Note Status Status: Progress Note (Viky Bernal) Interval History Interval History 10/19: POD 1 s/p right decompressive craniectomy with evacuation of subdural hematoma. ICPs 22-23 overnight, f/u CT this am shows improved midline shift. currently well sedated. 10/20: POD 2, EEG showed seizures, on Keppra, Neurology evaluation. currently well sedated and intubated. ICPs below 20. 10/21: POD 3, well sedated, ICPs currently at 8. right flap still full and tight. 10/22: POD 4, no changes neuro checks overnight, sedation being weaned. ICPs within normal range. 3: ICPs within normal and stable over the weekend. Withdraws in lower extremities. No eye opening, not following commands. 3: slightly extends in the right upper extremity, continues to remain unresponsive 10/27: Continues to be intubated, mechanically ventilated. No IV sedation, no eye opening or following commands. Extends in the upper extremities. Ammonia levels normal 10/28: s/p tracheostomy, today he is opening his eyes. right flap still full but softer 10/29: grimaces, but did not open eyes today. 11/01: eyes open, tracking, reported to have followed commands over the weekend. his right flap is much softer and slightly depressed. (Viky Bernal) Labs, Micro, & Vital Signs Results Date Time Temp Pulse Resp B/P Pulse Ox O2 Delivery O2 Flow Rate FiO2 11/01/16 10:35 94 T-piece 35 11/01/16 10:00 94 11/01/16 08:39 99 40 11/01/16 08:00 40 11/01/16 08:00 100.4 90 26 108/63 96 11/01/16 08:00 93 11/01/16 07:35 40 11/01/16 06:00 79 11/01/16 04:17 95 50 11/01/16 04:00 95 11/01/16 04:00 50 11/01/16 04:00 100.0 95 22 111/60 95 11/01/16 02:00 94 11/01/16 00:46 98 50 11/01/16 00:00 100.9 88 33 116/63 98 11/01/16 00:00 88 11/01/16 00:00 50 10/31/16 22:00 90 10/31/16 20:00 90 10/31/16 20:00 50 10/31/16 20:00 99.2 97 35 162/95 96 10/31/16 18:00 99 10/31/16 16:50 99 50 10/31/16 16:00 98.8 92 25 148/88 94 10/31/16 16:00 92 10/31/16 16:00 50 10/31/16 14:00 95 11/01/16 07:00 Intake Total 3719 ml Output Total 5280.0 ml Balance -1561.0 ml Constitutional Vital Signs Date Time Temp Pulse Resp B/P Pulse Ox O2 Delivery O2 Flow Rate FiO2 11/01/16 10:35 94 T-piece 35 11/01/16 10:00 94 11/01/16 08:39 99 40 11/01/16 08:00 40 11/01/16 08:00 100.4 90 26 108/63 96 11/01/16 08:00 93 11/01/16 07:35 40 11/01/16 06:00 79 11/01/16 04:17 95 50 11/01/16 04:00 95 11/01/16 04:00 50 11/01/16 04:00 100.0 95 22 111/60 95 11/01/16 02:00 94 11/01/16 00:46 98 50 11/01/16 00:00 100.9 88 33 116/63 98 11/01/16 00:00 88 11/01/16 00:00 50 10/31/16 22:00 90 10/31/16 20:00 90 10/31/16 20:00 50 10/31/16 20:00 99.2 97 35 162/95 96 10/31/16 18:00 99 10/31/16 16:50 99 50 10/31/16 16:00 98.8 92 25 148/88 94 10/31/16 16:00 92 10/31/16 16:00 50 10/31/16 14:00 95 11/01/16 07:00 Intake Total 3719 ml Output Total 5280.0 ml Balance -1561.0 ml (Viky Bernal) Review of Systems/Exam Exam Mr Nixon awake, eyes open, focusing and tracking. Did not follow commands for me. Right flap is slightly depressed superiorly and soft. Surgical wound healing nicely. Neck: tracheostomy Cranial Nerves: Pupils 5 mm equal and sluggish to react b/l, facial grossly symmetric at rest. Sensorimotor: not following commands for motor testing, mild withdrawals in the LE's Plantars equivocal bilaterally, no ankle clonus. Feet on b/l Podus boots. Cerebellar: cannot assess due to clinical condition (Viky Bernal) Medications Current Medications Current Medications Medications (Trade) Dose Ordered Sig/Jony Route PRN Reason Start Time Stop Time Status Last Admin Dose Admin Miscellaneous Information 1 [id number] XX 10/11/16 13:00 10/11/16 13:00 Chlorhexidine Gluconate (Chlorhexidine 2% Cloth) 3 pack Taper DAILY@04 TOP 10/12/16 04:00 10/08/17 03:59 11/01/16 03:09 Chlorhexidine Gluconate (Chlorhexidine 2% Cloth) 3 pack UNSCH PRN TOP HYGIENIC CARE 10/11/16 13:00 Hydralazine HCl (Apresoline Inj) 10 mg Q2H PRN IV PUSH SBP greater than 150mm Hg 10/11/16 13:30 10/28/16 11:33 Chlorhexidine Gluconate (Peridex 0.12% Liq) 15 ml BID@08,20 MT 10/12/16 08:00 11/01/16 09:19 Magnesium Hydroxide (Milk Of Magnesia Liq) 30 ml DAILY PO 10/12/16 10:00 10/28/16 08:39 Acetaminophen (Tylenol Supp) 650 mg Q4H PRN NM FEVER 10/15/16 12:15 Info 1 UNSCH XX 10/17/16 11:00 IV Flush (NS Flush) 2 ml UNSCH PRN IVF FLUSH AFTER USING IV ACCESS 10/18/16 11:45 IV Flush (NS Flush) 2 ml BID IVF 10/18/16 21:00 11/01/16 09:20 Bisacodyl (Dulcolax Supp) 10 mg DAILY PRN NM CONSTIPATION 10/18/16 11:45 10/18/16 14:36 Docusate Sodium (Colace) 100 mg BID PO 10/18/16 21:00 10/29/16 21:00 Pantoprazole Sodium (Protonix Inj) 40 mg DAILY IVP 10/19/16 09:00 11/01/16 09:20 Ondansetron HCl (Zofran Inj) 4 mg Q6H PRN IV NAUSEA OR VOMITING 10/18/16 11:45 Calcium Gluconate 1 gm 1 gm UNSCH PRN IV SEE LABEL COMMENTS 10/18/16 11:45 Potassium Chloride 100 ml @ 50 mls/hr UNSCH PRN IV POTASSIUM LESS THAN 4 10/18/16 11:45 10/25/16 09:35 Magnesium Sulfate/ Sodium Chloride (Magnesium Sulfate Inj/NS Inj) 108 ml @ 108 mls/hr UNSCH PRN IV MAGNESIUM LESS THAN 2 10/18/16 11:45 Acetaminophen (Tylenol) 650 mg Q4H PRN PO TEMPERATURE > 101.5 F 10/18/16 11:45 10/31/16 13:37 Lactulose (Lactulose Liq) 30 ml TID PO 10/21/16 13:00 10/29/16 18:32 Polyethylene Glycol (Miralax) 17 gm BID PO 10/21/16 11:00 10/29/16 20:35 Propranolol HCl (Inderal) 20 mg Q6HR PO 10/22/16 18:00 11/01/16 12:15 Labetalol HCl (Trandate Inj) 20 mg Q1H PRN IV PUSH sbp > 140 10/22/16 16:45 10/28/16 11:45 Clonidine 0.3 mg 0.3 mg Q8HR PO 10/22/16 16:42 11/01/16 04:47 Thiamine HCl/ Dextrose (Thiamine Inj/ D5W 100 ml Inj) 101 ml @ 100 mls/hr Q24H IV 10/23/16 20:00 10/31/16 20:19 Folic Acid (Folate) 1 mg DAILY PO 10/25/16 09:00 11/01/16 09:20 Multivitamins (Theragran) 1 tab DAILY PO 10/25/16 09:00 11/01/16 09:20 Sennosides (Senna Liq) 8.8 mg BID PO/NG 10/24/16 21:00 10/31/16 07:39 Oxycodone HCl (Roxicodone Intensol Liq) 5 mg Q4H PRN PO pain 4-6 10/24/16 12:30 Oxycodone HCl (Roxicodone Intensol Liq) 10 mg Q4H PRN PO pain 7-10 10/24/16 12:30 10/31/16 10:17 Furosemide (Lasix Inj) 40 mg DAILY IV PUSH 10/26/16 09:00 11/01/16 09:19 Potassium Bicarb/ Potassium Chloride (K-Lyte Cl Eff) 25 meq DAILY TUBE 10/26/16 09:00 11/01/16 09:20 Levetriacetam (Keppra Liq) 1,500 mg Q12HR TUBE 10/27/16 21:00 11/01/16 09:20 Miscellaneous Information SPECIFIC LAB TO BE DRAWN:VANCO TROUGH DATE TO BE DR... ONCE ONCE XX 11/01/16 17:45 11/01/16 17:46 Valproate Sodium/ Dextrose (Depacon Inj/D5W 100 ml Inj) 105 ml @ 105 mls/hr Q8HR IV 11/01/16 06:00 11/01/16 04:47 (Viky Bernal) Medical Decision Making MDM Remarks 56 y/o male s/p right decompressive craniectomy with evacuation of SDH, placement of ICP monitor, postop CT Brain with improved midline shift ICP monitor discontinued 10/25 neuro exam slowly improving (Viky Bernal) Plan Plan Remarks neuro exam slowly improving cont current care cont therapy, rehab efforts dc scalp marisela today (Viky Bernal) Attending Statement The exam, history, and the medical decision-making described in the above note were completed with the assistance of the mid-level provider. I reviewed and agree with the findings presented. I attest that I had a [id number] encounter with the patient on the same day, and personally performed and documented my assessment and findings in the medical record. (Chetan Cruz MD) Viyk Bernal Nov 01, 2016 12:40 Chetan Cruz MD Nov 04, 2016 16:46
--- NOTE | 2016-11-01 14:49 | HHI.HCPN ---
Reason for visit a. To assist with evaluation and management of symptoms including: encephalopathy; dyspnea; pain b. To assist medical decision maker(s) with: better understanding of current medical conditions; weighing benefits/burdens of medical treatment options; making medical treatment decisions. . Subjective/Interval History Patient seen and assessed in room 1317. Patient weaned from CPAP to T-piece; FiO2 35%. Patient is awake and alert, tracking with eyes. Attempting to communicate by mouthing words. Patient following simple commands intermittently. He was able to wiggle is right foot, able to squeeze right hand. Follow up EEG is showing continuous right hemisphere slowing associated with discharges. The findings suggest right hemisphere structural abnormality with epileptiform features but no ictal pattern present. Febrile. T-max 100.9 today. Leukocytosis, WBC at 16.5 on 10/31/16. Follow up chest x-ray on 10/31/16 showing persistent left lower lobe consolidation and ill defined opacities in the right lower lung. Tolerating Jevity 1.5 at 65ml/hour via PEG tube. . Family/friend interactions No family at bedside. Message left for patient's sisterManuela. . Advance Directives Living Will: Never completed Health Care Surrogate: Never completed Durable Power of Director Medical Safety: Never completed Advance Directive Specifics Date completed: Advanced directives were never completed. . Health Care Surrogate(s): There is no written designation of a health care surrogate. . Documented care wishes: No written documentation of health care preferences/goals/wishes . Objective Vital Signs Date Time Temp Pulse Resp B/P Pulse Ox O2 Delivery O2 Flow Rate FiO2 11/01/16 14:00 94 11/01/16 12:00 100.5 102 26 120/67 92 11/01/16 12:00 102 11/01/16 10:35 94 T-piece 35 11/01/16 10:35 94 T-Piece 35 11/01/16 10:00 94 11/01/16 08:39 99 40 11/01/16 08:00 40 11/01/16 08:00 100.4 90 26 108/63 96 11/01/16 08:00 93 11/01/16 07:35 40 11/01/16 06:00 79 11/01/16 04:17 95 50 11/01/16 04:00 95 11/01/16 04:00 50 11/01/16 04:00 100.0 95 22 111/60 95 11/01/16 02:00 94 11/01/16 00:46 98 50 11/01/16 00:00 100.9 88 33 116/63 98 11/01/16 00:00 88 11/01/16 00:00 50 10/31/16 22:00 90 10/31/16 20:00 90 10/31/16 20:00 50 10/31/16 20:00 99.2 97 35 162/95 96 10/31/16 18:00 99 10/31/16 16:50 99 50 10/31/16 16:00 98.8 92 25 148/88 94 10/31/16 16:00 92 10/31/16 16:00 50 Intake & Output 11/01/16 11/01/16 07:00 19:00 Intake Total 2660 ml 1416 ml Output Total 4900.0 ml 2550 ml Balance -2240.0 ml -1134 ml IV Total 1632 ml 776 ml Tube Feeding 828 ml 520 ml Other 200 ml 120 ml Output Urine Total 4500 ml 2400 ml Stool Total 400 ml 150 ml Tube Feeding Residual Discard 0 ml . Physical Exam CONSTITUTIONAL/GENERAL: This is an adequately nourished patient trach to T-piece ; FiO2 35%. TUBES/LINES/DRAINS: Tracheostomy; Gann catheter; PIV x 2, SCDs SKIN: There is a healing right craniotomy surgical wound without signs or symptoms of infection. HEAD: s/p craniotomy, right skull flap is soft. EYES: Pupils equal, round, reactive. No scleral icterus. No injection or drainage. Fundi not examined. ENT: Nose without bleeding or purulent drainage. NECK: Trachea midline. Obesedifficult to evaluate. CARDIOVASCULAR: Regular rate and rhythm without murmurs, gallops, or rubs. RESPIRATORY/CHEST: Tracheostomy to T-piece. Breath sounds equal bilaterally,. GASTROINTESTINAL: Abdomen rounded. BS active x 4. Flex seal in place. GENITOURINARY: Without palpable bladder distension. Gann catheter in place. MUSCULOSKELETAL: Extremities without clubbing, cyanosis. No mottling or clubbing. + peripheral pulses. NEUROLOGICAL: Patient is awake, tracking with eyes. Attempts to communicate by mouthing words but speech is garbled. Able to follow simple commands intermittently. PSYCHIATRIC: Does not appear to be experiencing anxiety/agitation. . . Diagnostic Tests Laboratory Laboratory Tests Test 10/30/16 10/30/16 10/31/16 10/31/16 05:36 05:50 03:53 05:08 Blood Gas Puncture Site RT RADIAL Blood Gas Patient Temperature 98.6 Blood Gas HCO3 26 mmol/L (22-26) Blood Gas Base Excess 2.6 mmol/L (-2-2) Blood Gas Oxygen Saturation 92 % (90-100) Arterial Blood pH 7.49 (7.380-7.420) Arterial Blood Partial 34 mmHg (38-42) Pressure CO2 Arterial Blood Partial 70 mmHg Pressure O2 (61-120) Arterial Blood Oxygen Content 12.0 Vol % (12.0-20.0) Arterial Blood 1.3 % (0-4) Carboxyhemoglobin Arterial Blood Methemoglobin 0.6 % (0-2) Blood Gas Hemoglobin 9.2 G/DL (12.0-16.0) Oxygen Delivery Device VENTILATOR Blood Gas Ventilator Setting PRVC Blood Gas Inspired Oxygen 40 % White Blood Count 17.7 TH/MM3 16.5 TH/MM3 (4.0-11.0) (4.0-11.0) Red Blood Count 2.80 MIL/MM3 2.77 MIL/MM3 (4.50-5.90) (4.50-5.90) Hemoglobin 8.9 GM/DL 9.1 GM/DL (13.0-17.0) (13.0-17.0) Hematocrit 26.4 % 26.1 % (39.0-51.0) (39.0-51.0) Mean Corpuscular Volume 94.3 FL 94.3 FL (80.0-100.0) (80.0-100.0) Mean Corpuscular Hemoglobin 31.8 PG 32.8 PG (27.0-34.0) (27.0-34.0) Mean Corpuscular Hemoglobin 33.8 % 34.8 % Concent (32.0-36.0) (32.0-36.0) Red Cell Distribution Width 13.6 % 13.5 % (11.6-17.2) (11.6-17.2) Platelet Count 342 TH/MM3 373 TH/MM3 (150-450) (150-450) Mean Platelet Volume 8.2 FL 8.2 FL (7.0-11.0) (7.0-11.0) Sodium Level 137 MEQ/L 134 MEQ/L (136-145) (136-145) Potassium Level 3.5 MEQ/L 3.7 MEQ/L (3.5-5.1) (3.5-5.1) Chloride Level 100 MEQ/L 97 MEQ/L (98-107) (98-107) Carbon Dioxide Level 27.4 MEQ/L 26.6 MEQ/L (21.0-32.0) (21.0-32.0) Anion Gap 10 MEQ/L (5-15) 10 MEQ/L (5-15) Blood Urea Nitrogen 12 MG/DL (7-18) 14 MG/DL (7-18) Creatinine 0.67 MG/DL 0.72 MG/DL (0.60-1.30) (0.60-1.30) Estimat Glomerular Filtration 122 ML/MIN 113 ML/MIN Rate (>89) (>89) Random Glucose 116 MG/DL 133 MG/DL (74-106) (74-106) Calcium Level 8.2 MG/DL 7.8 MG/DL (8.5-10.1) (8.5-10.1) Magnesium Level 2.2 MG/DL (1.5-2.5) Test 10/31/16 15:17 Vancomycin Level Trough 18.0 MCG/ML (5.0-10.0) . Result Diagram: 10/31/16 0508 10/31/16 0353 Imaging Last 72 hours Impressions Chest X-Ray 10/31/16 06 Signed Impressions: Service Date/Time: Monday, October 31, 2016 04:56 - CONCLUSION: Persistent left lower lobe consolidation and ill-defined opacities in the right lower lung. Cosmo Abbasi MD Chest X-Ray 10/30/16 06 Signed Impressions: Service Date/Time: Sunday, October 30, 2016 04:17 - CONCLUSION: Persistent left lower lung consolidation and hazy opacities in the right lower lung. Cosmo Abbasi MD . Procedures * [place] hole with ICP monitor placed * Right craniectomy * Art line placement * Intubation/mechanical ventilation * Central line placement. * Tracheostomy * Peg tube . Assessment and Plan Disease Oriented Problem List: (1) Traumatic brain injury (2) SAH (subarachnoid hemorrhage) (3) Subdural hemorrhage following injury (4) Fracture of occipital bone of skull with loss of consciousness (5) Encephalopathy acute (6) Alcohol dependence Comment: Long history of 12-15 drinks per day. . (7) Major neurocognitive disorder as late effect of traumatic brain injury with behavioral disturbance (8) Seizure (9) Pneumonia Comment: Probable aspiration. Blood in vomitus were in airway immediately after fall. . (10) Hepatitis C antibody positive in blood (11) Rectal bleeding Comment: Has had years of abdominal pain with intermittent rectal bleeding. Has avoided recommended work-up due to lack on insurance, lack of funds, and fear of results (per shasta). . Symptom Scale: (1) Pain 0-10 Scale: Unable to quantify Comment: Patient had history of several pain syndromes. He complained of abdominal pain for years with occasional rectal bleeding. He also complained of right ankle pain where he had surgery and achiness in multiple joints. He would use BC powders several times a day and occasionally hydrocodone. Other current sources of pain might include prolonged bedbound status, post op wound/ head pain, discomfort from trach/gann/OG/vascular access lines. Orders are in place for PRN oxycodone at this time. These appear to be adequate. No further recommendations at this time. . (2) Dyspnea Comment: Patient with probable aspiration pneumonia. Vomitus and blood were in mouth at time of fall. Sputum culture grew out H. flu. Patient also has anasarca and may have a component of pulmonary edema. Dyspnea appears adequately controlled with vent support, antibiotics, and diuretics. Tracheostomy to T piece. Follow-up chest x-ray on 10/31/16 showing persistent left lower lobe consolidation and ill-defined opacities in the right lower lung . (3) Encephalopathy 0-10 Scale: Unable to quantify Comment: This has been multi-factorial and has involved the brain injury, alcohol withdrawal, infection, seizure, etc. Current encephalopathy now mostly due to brain injury. Encephalopathy persists off sedation. Will continue to support patient as brain is given a chance to heal. No further recommendations at this time. . Pertinent Non-Medical Issues Psychosocial: Social support consists of fiancee, brother, sister and friend - - Patricio Oleary. Spiritual: Jain background. Episcopalian and spirituality have not played an important role in his life. Shasta appreciates pie baker visits. Legal: No advance directives. Without a designated health care surrogate, decision-making appears to fall to the majority of his siblings. Ethical issues impacting care: Patient is incapacitated to make his own health care decisions. It is unclear if/when he will regain capacity. . Important Contacts * Brandy Workman (spouse) [phone] * Amanda "Manuela"reynold (sister) - [facility] care proxy: * Perez "Demarco" (brother) [phone] * Amanda "Jamila" Ubaldo (niece) [phone] . 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 It is unclear if he had some sort of event causing the fall (he had vomitus and blood in his airway at time of fall) or merely fell. His injuries include occipital bone fracture, SDH, SAH. Complications include EtOH withdrawal, aspiration pneumonia. He has had high ICPs and ultimately underwent right sided craniectomy for decompression. He has had seizure activity. There has been little evidence so far of meaningful neurological recovery. Neurosurgery feels there continues to be a reasonable chance of meaningful neurologic recovery (though it will take a lot of time) and is recommending ongoing aggressive care. . Code Status: Full Code Plan == Code Status: FULL CODE == Decision making: Mr. Nixon is incapacitated to make his own health care decisions and it is unclear if/when he will regain capacity. Patient is not legally , has no children, and the parents who adopted him are . [place], decision making would fall to the patient's adoptive siblings -- Amanad and Demarco. Demarco has agreed to defer decision making to Amanda so AMANDA IS THE OFFICIAL PROXY DECISION MAKER per my phone conversation with Demarco on 10/26/16 at 13:25. The patient's fiancee -- Brandy Workman -- has no decision making authority, but the siblings are including her in the conversations. == Goals of medical treatment: The patient's family remains cautiously optimistic, hopeful the patient will have some neurological recovery. However, they all agree the patient would not want to be kept alive artificially if he will not regain the ability to at minimum communicate with others. == Family has requested to speak with neurosurgery to discuss what level of neurological recovery neurosurgery anticipates in this patient and in what timeframe recovery may occur. Viky BRAMBILA is aware of family request. Discussed with patient's nurse. == Status post tracheostomy on 10/28/16 and PEG tube placement on 10/29/16. == Encephalopathy: This has been multi-factorial and has involved the brain injury, alcohol withdrawal, infection, seizure, etc. Current encephalopathy now mostly due to brain injury. Encephalopathy persists off sedation. Patient is more alert today with eyes open and tracking. Attempting to communicate by mouthing words, speech is garbled. Follows simple commands at times. Patient able to wiggle right great toe, lately squeezing with right hand. == Pain: Patient had history of several pain syndromes. He complained of abdominal pain for years with occasional rectal bleeding. He also complained of right ankle pain where he had surgery and achiness in multiple joints. He would use BC powders several times a day and occasionally hydrocodone. Other current sources of pain might include prolonged bedbound status, post op wound/ head pain, discomfort from trach/gann/OG/vascular access lines. Orders are in place for PRN oxycodone at this time. These appear to be adequate. No further recommendations at this time. == Dyspnea: Patient with probable aspiration pneumonia. Vomitus and blood were in mouth at time of fall. Sputum culture grew out H. flu. Patient also has anasarca and may have a component of pulmonary edema. Dyspnea appears adequately controlled with vent support, antibiotics, and diuretics. Tracheostomy to T piece. Follow-up chest x-ray on 10/31/16 showing persistent left lower lobe consolidation and ill-defined opacities in the right lower lung == Palliative care will continue to follow to assist with symptom management and to further clarify goals of medical treatment as the clinical course evolves -met with patient's fianc, sister, cousin and best friend on 10/29/16 to further clarify . medical treatment goals of care. . Attestation To help prompt me to consider important information that might be impacting today's encounter and assessment, information from prior notes written by myself or my colleagues may have been "brought forward" into today's note. My signature on this note, however, is an attestation that I personally performed the exam, history, and/or decision-making noted today, and, unless otherwise indicated, the interactions with patient, family, and staff as well as the review of records all occurred today. I also attest that the listed assessment and stated plan reflect my best clinical judgment today based on the combination of historical information, prior notes, and today's exam/ interactions. When time spent is documented, it refers only to time spent today by the signer, or if indicated, combined time spent today by collaborating physician/nurse practitioner. . Татьяна Hauser Nov 01, 2016 14:49 may be due to EtOH abuse and frequent use of BC powders. However, probably should have GI endoscopy when stable. == Palliative care will continue to follow to assist with symptom management and to further clarify goals of medical treatment as the clinical course evolves -met with patient's fianc, sister, cousin and best friend on 10/29/16 to further clarify . medical treatment goals of care. . Attestation To help prompt me to consider important information that might be impacting today's encounter and assessment, information from prior notes written by myself or my colleagues may have been "brought forward" into today's note. My signature on this note, however, is an attestation that I personally performed the exam, history, and/or decision-making noted today, and, unless otherwise indicated, the interactions with patient, family, and staff as well as the review of records all occurred today. I also attest that the listed assessment and stated plan reflect my best clinical judgment today based on the combination of historical information, prior notes, and today's exam/ interactions. When time spent is documented, it refers only to time spent today by the signer, or if indicated, combined time spent today by collaborating physician/nurse practitioner. . Татьяна Hauser Nov 01, 2016 14:49
--- NOTE | 2016-11-01 17:25 | HHI.PR ---
Review/Management Diagnosis 1. Encephalopathy 2. Occipital skull fracture 3. TBI status fall with bifrontal contusions, right temporal parietal subdural hemorrhage s/p craniotomy, subarachnoid hemorrhage. 4. History of alcohol abuse/alcohol withdrawal. 5. Elevated ICP s/p EVD Plan - Neuro checks q. one hourly. - Keppra 2gm Q12 h. - Added Valproate 500mg tid - Order a Valproate level - D/C Dilantin - Obtain a new Keppra level - Seizure prophylaxis. - CIWA protocol IV folate for alcohol withdrawal. - DVT prophylaxis - GI prophylaxis Diagnosis/Plan: Subjective Subjective Comments Abnormal repeat EEG with evidence of sharp waves, epileptogenic in nature Low levels of Dilantin Start patient on Valproate and wean off Dilantin Keppra level is therapeutic Active Medications Current Medications Medications (Trade) Dose Ordered Sig/Jony Route Start Time Stop Time Status Last Admin Miscellaneous Information 1 Q361D XX 10/11/16 13:00 10/11/16 13:00 (Chlorhexidine 2% Cloth) 3 pack Taper DAILY@04 TOP 10/12/16 04:00 10/08/17 03:59 11/01/16 03:09 (Chlorhexidine 2% Cloth) 3 pack UNSCH PRN TOP 10/11/16 13:00 (Apresoline Inj) 10 mg Q2H PRN IV PUSH 10/11/16 13:30 10/28/16 11:33 (Peridex 0.12% Liq) 15 ml BID@08,20 MT 10/12/16 08:00 11/01/16 09:19 (Milk Of Magnesia Liq) 30 ml DAILY PO 10/12/16 10:00 10/28/16 08:39 (Tylenol Supp) 650 mg Q4H PRN ID 10/15/16 12:15 Info 1 UNSCH XX 10/17/16 11:00 (NS Flush) 2 ml UNSCH PRN IVF 10/18/16 11:45 (NS Flush) 2 ml BID IVF 10/18/16 21:00 11/01/16 09:20 (Dulcolax Supp) 10 mg DAILY PRN ID 10/18/16 11:45 10/18/16 14:36 (Colace) 100 mg BID PO 10/18/16 21:00 10/29/16 21:00 (Protonix Inj) 40 mg DAILY IVP 10/19/16 09:00 11/01/16 09:20 (Zofran Inj) 4 mg Q6H PRN IV 10/18/16 11:45 Calcium Gluconate 1 gm 1 gm UNSCH PRN IV 10/18/16 11:45 Potassium Chloride 100 ml @ 50 mls/hr UNSCH PRN IV 10/18/16 11:45 10/25/16 09:35 (Magnesium Sulfate Inj/NS Inj) 108 ml @ 108 mls/hr UNSCH PRN IV 10/18/16 11:45 (Tylenol) 650 mg Q4H PRN PO 10/18/16 11:45 10/31/16 13:37 (Lactulose Liq) 30 ml TID PO 10/21/16 13:00 10/29/16 18:32 (Miralax) 17 gm BID PO 10/21/16 11:00 10/29/16 20:35 (Inderal) 20 mg Q6HR PO 10/22/16 18:00 11/01/16 12:15 (Trandate Inj) 20 mg Q1H PRN IV PUSH 10/22/16 16:45 10/28/16 11:45 Clonidine 0.3 mg 0.3 mg Q8HR PO 10/22/16 16:42 11/01/16 14:21 (Thiamine Inj/ D5W 100 ml Inj) 101 ml @ 100 mls/hr Q24H IV 10/23/16 20:00 10/31/16 20:19 (Folate) 1 mg DAILY PO 10/25/16 09:00 11/01/16 09:20 (Theragran) 1 tab DAILY PO 10/25/16 09:00 11/01/16 09:20 (Senna Liq) 8.8 mg BID PO/NG 10/24/16 21:00 10/31/16 07:39 (Roxicodone Intensol Liq) 5 mg Q4H PRN PO 10/24/16 12:30 (Roxicodone Intensol Liq) 10 mg Q4H PRN PO 10/24/16 12:30 10/31/16 10:17 (Lasix Inj) 40 mg DAILY IV PUSH 10/26/16 09:00 11/01/16 09:19 (K-Lyte Cl Eff) 25 meq DAILY TUBE 10/26/16 09:00 11/01/16 09:20 Levetriacetam 1500 mg 1,500 mg Q12HR TUBE 10/27/16 21:00 11/01/16 09:20 (Depacon Inj/D5W 100 ml Inj) 105 ml @ 105 mls/hr Q8HR IV 11/01/16 06:00 11/01/16 14:22 Allergies Allergies Coded Allergies UNOBTAINABLE (Unverified10/11/16) Review of Systems All other ROS: Unable to obtain Exam I&O / VS 10/31/16 10/31/16 11/01/16 15:00 23:00 07:00 Intake Total 729 ml 2023 ml 967 ml Output Total 380 ml 1100 ml 3800 ml Balance 349 ml 923 ml -2833 ml IV Total 130 ml 1140 ml 492 ml Tube Feeding 469 ml 453 ml 375 ml Other 130 ml 430 ml 100 ml Output Urine Total 200 ml 900 ml 3600 ml Stool Total 180 ml 200 ml 200 ml Tube Feeding Residual Discard 0 ml 0 ml 0 ml Vital Signs Date Time Temp Pulse Resp B/P Pulse Ox O2 Delivery O2 Flow Rate FiO2 11/01/16 16:00 96 11/01/16 16:00 99.8 96 29 117/65 93 11/01/16 14:00 94 11/01/16 12:00 100.5 102 26 120/67 92 11/01/16 12:00 102 11/01/16 10:35 94 T-piece 35 11/01/16 10:35 94 T-Piece 35 11/01/16 10:00 94 11/01/16 08:39 99 40 11/01/16 08:00 40 11/01/16 08:00 100.4 90 26 108/63 96 11/01/16 08:00 93 11/01/16 07:35 40 11/01/16 06:00 79 11/01/16 04:17 95 50 11/01/16 04:00 95 11/01/16 04:00 50 11/01/16 04:00 100.0 95 22 111/60 95 11/01/16 02:00 94 11/01/16 00:46 98 50 11/01/16 00:00 100.9 88 33 116/63 98 11/01/16 00:00 88 11/01/16 00:00 50 10/31/16 22:00 90 10/31/16 20:00 90 10/31/16 20:00 50 10/31/16 20:00 99.2 97 35 162/95 96 10/31/16 18:00 99 Respiratory: Coarse breath sounds Musculoskeletal: ROM (Grossly within normal limits), Other (SCDs and Multi- Podus boots in place) Objective Radiology Results Last 72 hours Impressions Chest X-Ray 10/31/16 06 Signed Impressions: Service Date/Time: Monday, October 31, 2016 04:56 - CONCLUSION: Persistent left lower lobe consolidation and ill-defined opacities in the right lower lung. Cosmo Abbasi MD Chest X-Ray 10/30/16599 Signed Impressions: Service Date/Time: Sunday, October 30, 2016 04:17 - CONCLUSION: Persistent left lower lung consolidation and hazy opacities in the right lower lung. MD Lamine Dueñas Raid G. MD Nov 01, 2016 17:25
[2016-11-01] MEDS ORDERED: PHARMACY ORDERED LAB XX ONE (17:45)
[2016-11-01] MEDS: THIAMINE IV SCH ×2 (21:21)
[2016-11-02] VITALS (16 sets, daily range): BP systolic 97–144; BP diastolic 57–72; PULSE 80–105; RESP 24–32; TEMP 98.1–99.5; O2SAT 92–100
[2016-11-02] MEDS: PROPRANOLOL HCL 20 MG TAB PO SCH ×4 (00:45→17:19)
--- NOTE | 2016-11-02 05:11 | RADRPT ---
EXAM DATE/TIME: 11/02/2016 03:32 [facility] COMPARISON: CHEST SINGLE AP, October 31, 2016, 4:56. INDICATIONS : Shortness of breath. MEDICAL HISTORY : Hypertension. SURGICAL HISTORY : None. ENCOUNTER: Subsequent ACUITY: 2 weeks PAIN SCORE: Non-responsive. LOCATION: Bilateral chest FINDINGS: Single AP view of the chest. Tracheostomy tube remains in place. Bilateral hazy lower lung zone opaci ty likely representing a combination of parenchymal opacity and pleural effusion again seen. No signi ficant interval change. CONCLUSION: No significant interval change in bilateral lower lung zone opacity. Jules Chisholm MD on November 02, 2016 at 5:09 Board Certified Radiologist. This report was verified electronically.
[2016-11-02] MEDS: DEXTROSE 5% IV SCH ×8 (05:45→21:16)
[2016-11-02] MEDS: WATER IV SCH ×8 (05:45→21:16)
[2016-11-02] MEDS: cloNIDine HCL 0.3 MG TAB PO SCH ×3 (05:45→21:16)
[2016-11-02] MEDS: VALPROATE IV SCH ×6 (05:45→21:16)
[2016-11-02] MEDS: CHLORHEXIDINE GLUCONATE 2 % 1 PACK (2 CLOTHS) TOP SCH (05:46)
[2016-11-02] MEDS: SODIUM CHLORIDE 0.9% FLUSH 5 ML FLUSH IVF SCH ×2 (07:41→21:17)
[2016-11-02] MEDS: levETIRAcetam 500 MG/5 ML UDC TUBE SCH ×2 (08:46→21:16)
[2016-11-02] MEDS: MAGNESIUM HYDROXIDE SUSP 30 ML CUP PO SCH (08:46)
[2016-11-02] MEDS: POTASSIUM CHLORIDE 25 MEQ EFFERVESCENT TAB TUBE SCH (08:46)
[2016-11-02] MEDS: SENNOSIDES SYRUP 8.8 MG/5 ML CUP PO/NG SCH ×2 (08:46→21:00)
[2016-11-02] MEDS: FOLIC ACID 1 MG TAB PO SCH (08:47)
[2016-11-02] MEDS: MULTIVITAMIN TAB PO SCH (08:47)
[2016-11-02] MEDS: CHLORHEXIDINE 0.12% (ORAL KIT) 15 ML CUP MT SCH ×2 (08:47→21:17)
[2016-11-02] MEDS: FUROSEMIDE 40 MG/4 ML VIAL IV PUSH SCH (08:47)
[2016-11-02] MEDS: DOCUSATE SODIUM 100 MG CAP PO SCH ×2 (08:47→21:00)
[2016-11-02] MEDS: POLYETHYLENE GLYCOL 17 GM PKG PO SCH ×2 (08:47→21:00)
[2016-11-02] MEDS: LACTULOSE SYRUP 20 GM/30 ML CUP PO SCH ×3 (08:47→16:50)
[2016-11-02] MEDS: PANTOPRAZOLE SODIUM 40 MG VIAL IVP SCH (08:47)
--- NOTE | 2016-11-02 09:51 | HHI.NSPN ---
(Viky Bernal) Note Status Status: Progress Note (Viky Bernal) Interval History Interval History 10/19: POD 1 s/p right decompressive craniectomy with evacuation of subdural hematoma. ICPs 22-23 overnight, f/u CT this am shows improved midline shift. currently well sedated. 3: POD 2, EEG showed seizures, on Keppra, Neurology evaluation. currently well sedated and intubated. ICPs below 20. 10/21: POD 3, well sedated, ICPs currently at 8. right flap still full and tight. 10/22: POD 4, no changes neuro checks overnight, sedation being weaned. ICPs within normal range. 3: ICPs within normal and stable over the weekend. Withdraws in lower extremities. No eye opening, not following commands. 10/26: slightly extends in the right upper extremity, continues to remain unresponsive 10/27: Continues to be intubated, mechanically ventilated. No IV sedation, no eye opening or following commands. Extends in the upper extremities. Ammonia levels normal 10/28: s/p tracheostomy, today he is opening his eyes. right flap still full but softer 10/29: grimaces, but did not open eyes today. 11/01: eyes open, tracking, reported to have followed commands over the weekend. his right flap is much softer and slightly depressed. 11/02: smiling, nodding, and appears more alert this morning. (Viky Bernal) Labs, Micro, & Vital Signs Results Date Time Temp Pulse Resp B/P Pulse Ox O2 Delivery O2 Flow Rate FiO2 11/02/16 08:30 35 11/02/16 08:30 92 T-Piece 35 11/02/16 08:08 98 T-piece 5.00 40 11/02/16 08:00 80 11/02/16 08:00 98.1 80 31 97/57 100 11/02/16 08:00 40 11/02/16 07:00 96 Mechanical Ventilator 40 11/02/16 06:00 105 11/02/16 04:05 96 40 11/02/16 04:00 98 11/02/16 04:00 99.0 98 26 144/63 95 11/02/16 04:00 40 11/02/16 02:00 90 11/02/16 01:03 96 40 11/02/16 00:00 99.4 95 27 105/62 96 11/02/16 00:00 40 11/02/16 00:00 95 11/01/16 22:00 97 11/01/16 21:07 96 40 11/01/16 20:00 91 11/01/16 20:00 40 11/01/16 20:00 98.6 91 30 118/58 96 11/01/16 19:00 96 Mechanical Ventilator 40 11/01/16 18:00 100 11/01/16 16:00 96 11/01/16 16:00 99.8 96 29 117/65 93 11/01/16 14:00 94 11/01/16 12:00 100.5 102 26 120/67 92 11/01/16 12:00 102 11/01/16 10:35 94 T-piece 35 11/01/16 10:35 94 T-Piece 35 11/01/16 10:00 94 11/02/16 07:00 Intake Total 3342 ml Output Total 4900.0 ml Balance -1558.0 ml Constitutional Vital Signs Date Time Temp Pulse Resp B/P Pulse Ox O2 Delivery O2 Flow Rate FiO2 11/02/16 08:30 35 11/02/16 08:30 92 T-Piece 35 11/02/16 08:08 98 T-piece 5.00 40 11/02/16 08:00 80 11/02/16 08:00 98.1 80 31 97/57 100 11/02/16 08:00 40 11/02/16 07:00 96 Mechanical Ventilator 40 11/02/16 06:00 105 11/02/16 04:05 96 40 11/02/16 04:00 98 11/02/16 04:00 99.0 98 26 144/63 95 11/02/16 04:00 40 11/02/16 02:00 90 11/02/16 01:03 96 40 11/02/16 00:00 99.4 95 27 105/62 96 11/02/16 00:00 40 11/02/16 00:00 95 11/01/16 22:00 97 11/01/16 21:07 96 40 11/01/16 20:00 91 11/01/16 20:00 40 11/01/16 20:00 98.6 91 30 118/58 96 11/01/16 19:00 96 Mechanical Ventilator 40 11/01/16 18:00 100 11/01/16 16:00 96 11/01/16 16:00 99.8 96 29 117/65 93 11/01/16 14:00 94 11/01/16 12:00 100.5 102 26 120/67 92 11/01/16 12:00 102 11/01/16 10:35 94 T-piece 35 11/01/16 10:35 94 T-Piece 35 11/01/16 10:00 94 11/02/16 07:00 Intake Total 3342 ml Output Total 4900.0 ml Balance -1558.0 ml (Viky Bernal) Review of Systems/Exam Exam Mr awake, eyes open, focusing and tracking, smiling, and nodding when asked if he is ok. Not consistently following commands. Right flap is slightly depressed superiorly and soft. Surgical wound healing nicely, marisela are removed. Neck: tracheostomy Cranial Nerves: Pupils 5 mm equal and reactive b/l, facial grossly symmetric at rest. Sensorimotor: not following commands consistently for motor testing, mildly withdrawals the LE's to focal stimuli Plantars equivocal bilaterally, no ankle clonus. Feet on b/l Podus boots. Cerebellar: cannot assess due to clinical condition (Viky Bernal) Medications Current Medications Current Medications Medications (Trade) Dose Ordered Sig/Jony Route PRN Reason Start Time Stop Time Status Last Admin Dose Admin Miscellaneous Information 1 Q361D XX 10/11/16 13:00 10/11/16 13:00 Chlorhexidine Gluconate (Chlorhexidine 2% Cloth) 3 pack Taper DAILY@04 TOP 10/12/16 04:00 10/08/17 03:59 11/02/16 05:46 Chlorhexidine Gluconate (Chlorhexidine 2% Cloth) 3 pack UNSCH PRN TOP HYGIENIC CARE 10/11/16 13:00 Hydralazine HCl (Apresoline Inj) 10 mg Q2H PRN IV PUSH SBP greater than 150mm Hg 10/11/16 13:30 3/17 11:33 Chlorhexidine Gluconate (Peridex 0.12% Liq) 15 ml BID@08,20 MT 10/12/16 08:00 11/02/16 08:47 Magnesium Hydroxide (Milk Of Magnesia Liq) 30 ml DAILY PO 10/12/16 10:00 11/02/16 08:46 Acetaminophen (Tylenol Supp) 650 mg Q4H PRN OR FEVER 10/15/16 12:15 Info 1 UNSCH XX 10/17/16 11:00 IV Flush (NS Flush) 2 ml UNSCH PRN IVF FLUSH AFTER USING IV ACCESS 10/18/16 11:45 IV Flush (NS Flush) 2 ml BID IVF 10/18/16 21:00 11/02/16 07:41 Bisacodyl (Dulcolax Supp) 10 mg DAILY PRN OR CONSTIPATION 10/18/16 11:45 10/18/16 14:36 Docusate Sodium (Colace) 100 mg BID PO 10/18/16 21:00 11/02/16 08:47 Pantoprazole Sodium (Protonix Inj) 40 mg DAILY IVP 10/19/16 09:00 11/02/16 08:47 Ondansetron HCl (Zofran Inj) 4 mg Q6H PRN IV NAUSEA OR VOMITING 10/18/16 11:45 Calcium Gluconate 1 gm 1 gm UNSCH PRN IV SEE LABEL COMMENTS 10/18/16 11:45 Potassium Chloride 100 ml @ 50 mls/hr UNSCH PRN IV POTASSIUM LESS THAN 4 10/18/16 11:45 10/25/16 09:35 Magnesium Sulfate/ Sodium Chloride (Magnesium Sulfate Inj/NS Inj) 108 ml @ 108 mls/hr UNSCH PRN IV MAGNESIUM LESS THAN 2 10/18/16 11:45 Acetaminophen (Tylenol) 650 mg Q4H PRN PO TEMPERATURE > 101.5 F 10/18/16 11:45 10/31/16 13:37 Lactulose (Lactulose Liq) 30 ml TID PO 10/21/16 13:00 11/02/16 08:47 Polyethylene Glycol (Miralax) 17 gm BID PO 10/21/16 11:00 11/02/16 08:47 Propranolol HCl (Inderal) 20 mg Q6HR PO 10/22/16 18:00 11/02/16 05:46 Labetalol HCl (Trandate Inj) 20 mg Q1H PRN IV PUSH sbp > 140 10/22/16 16:45 10/28/16 11:45 Clonidine 0.3 mg 0.3 mg Q8HR PO 10/22/16 16:42 11/02/16 05:45 Thiamine HCl/ Dextrose (Thiamine Inj/ D5W 100 ml Inj) 101 ml @ 100 mls/hr Q24H IV 10/23/16 20:00 11/01/16 21:21 Folic Acid (Folate) 1 mg DAILY PO 10/25/16 09:00 11/02/16 08:47 Multivitamins (Theragran) 1 tab DAILY PO 10/25/16 09:00 11/02/16 08:47 Sennosides (Senna Liq) 8.8 mg BID PO/NG 10/24/16 21:00 11/02/16 08:46 Oxycodone HCl (Roxicodone Intensol Liq) 5 mg Q4H PRN PO pain 4-6 10/24/16 12:30 Oxycodone HCl (Roxicodone Intensol Liq) 10 mg Q4H PRN PO pain 7-10 10/24/16 12:30 10/31/16 10:17 Furosemide (Lasix Inj) 40 mg DAILY IV PUSH 10/26/16 09:00 11/02/16 08:47 Potassium Bicarb/ Potassium Chloride (K-Lyte Cl Eff) 25 meq DAILY TUBE 10/26/16 09:00 11/02/16 08:46 Levetriacetam 1500 mg 1,500 mg Q12HR TUBE 10/27/16 21:00 11/02/16 08:46 Valproate Sodium/ Dextrose (Depacon Inj/D5W 100 ml Inj) 105 ml @ 105 mls/hr Q8HR IV 11/01/16 06:00 11/02/16 05:45 (Viky Bernal) Medical Decision Making MDM Remarks 56 y/o male s/p right decompressive craniectomy with evacuation of SDH, placement of ICP monitor, postop CT Brain with improved midline shift ICP monitor discontinued 10/25 mental status improving (Viky Bernal) Plan Plan Remarks neuro exam slowly improving cont therapy, rehab efforts will sign off, call prn (Viky Bernal) Attending Statement The exam, history, and the medical decision-making described in the above note were completed with the assistance of the mid-level provider. I reviewed and agree with the findings presented. I attest that I had a [id number] encounter with the patient on the same day, and personally performed and documented my assessment and findings in the medical record. (Chetan Cruz MD) Viky Bernal Nov 02, 2016 09:51 Chetan Cruz MD Nov 04, 2016 16:08
[2016-11-02 10:45] LABS: ALKALINE PHOSPHATASE 225 U/L (45-117); ALT (GPT) 61 U/L (12-78); ANION GAP 7 MEQ/L (5-15); AST (GOT) 51 U/L (15-37); BASOPHIL # 0.1 TH/MM3 (0-0.2); BASOPHIL % 0.3 % (0.0-2.0); BICARBONATE 31.1 MEQ/L (21.0-32.0); BLOOD UREA NITROGEN 16 MG/DL (7-18); CHLORIDE 103 MEQ/L (98-107); EOSINOPHIL # 0.4 TH/MM3 (0-0.4); EOSINOPHIL % 2.1 % (0.0-4.0); GLOMERULAR FILTRATION RATE 111 ML/MIN (>89); HEMATOCRIT 27.4 % (39.0-51.0); HEMO FLAGS DIFF FINAL; LYMPH % 6.6 % (9.0-44.0); LYMPHOCYTE # 1.3 TH/MM3 (1.0-4.8); MAGNESIUM 2.1 MG/DL (1.5-2.5); MEAN CELL VOLUME 95.4 FL (80.0-100.0); MEAN CORPUSCULAR HEMOGLOBIN 31.7 PG (27.0-34.0); MEAN CORPUSCULAR HGB CONC 33.2 % (32.0-36.0); MONO % 9.3 % (0.0-8.0); NEUT % 81.7 % (16.0-70.0); PLATELET COUNT 454 TH/MM3 (150-450); RED BLOOD COUNT 2.88 MIL/MM3 (4.50-5.90); RED CELL DISTRIBUTION WIDTH 13.7 % (11.6-17.2); SODIUM (NA) 141 MEQ/L (136-145); TOTAL BILIRUBIN ADULT 0.2 MG/DL (0.2-1.0); WHITE BLOOD COUNT 19.5 TH/MM3 (4.0-11.0)
--- NOTE | 2016-11-02 12:08 | HHI.CCPN ---
Subjective Brief History Elderly male who was brought in as a trauma alert after he fell 10 feet from a ladder. GCS 6 initially at the scene subsequently improved to 11 on arrival in the ER. Patient was evaluated by trauma team and subsequently underwent imaging studies and transferred to the ICU. Imaging studies revealed an occipital skull fracture, subdural and subarachnoid blood. Patient was awake and alert at the time of evaluation and following commands and moving all 4 extremities. He could not hear and had some speech difficulty at the time of my evaluation with difficulty in communication though was following commands appropriately. C spine cleared by Neurosurgery at the time of my evaluation. Patient developed worsening agitation despite Precedex last evening. Since then patient had to be intubated ventilated and is currently on propofol fentanyl and Versed drips to keep him down When these are discontinued or less and patient starts biting on the to and becomes restless moves all [address] scan of the head reveals worsening subdural and subarachnoid hemorrhage and the midline shift of about 8 mm 24 Hour Review/Hospital Course Patient has worsened in last 24 hours Repeat CAT scan reveals worsening subdural bleeding over the right parieto- occipital area and [id number] shift of about 8 mm Patient is elderly and a heavy drinker and therefore has atrophy of the brain so there is some more space that allows for compartment pressure IE ICP to remain low We will discuss with neurosurgery about placing ICP monitor or even draining subdural hematoma at this time. Patient remains hyperventilated and on hypertonic saline nonetheless will require bolt placement to assess for ICP and the effectiveness of the therapy 10/13/2016 Patient neurologically unchanged Repeat CAT scan shows some decrease in subdural hematoma and slight decrease in shift yet still severe brain injury At the family's request a second opinion neurosurgery consult was placed and second neurosurgeon has evaluated the patient She will have a long-term recovery here and have discussed this at length with the family Patient may need tracheostomy and PEG tube placement as the part of the appropriate treatment 10/14/2016 Patient with a severe brain injury and subdural hematoma and intraparenchymal hemorrhage Underwent yesterday ventriculostomy placement ICP is within physiologic range at this time and the subdural hematoma size has somewhat decreased There is no change in the neurologic status over the last 24 hours 10/17/16 No change in neurologic status Patient withdraws to pain but does not open eyes or communicates in anyway All sedation has been removed and ventilatory settings been gradually decreased in order to 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 Hypertonic saline was held for profound hypernatremia. EEG showed complete moderate encephalopathy. He will require tracheostomy and gastrostomy tube placement once stable. There was 1 episode of mucous plugging which resolved with aggressive suctioning. 10/23/16 Plan was for tracheostomy today, patient however has elevated ICPs into the 30s We will defer tracheostomy until patient is stable 10/24/16 ICP is improved following administration of neostigmine and a large bowel movement He is likely ready for tracheostomy now, as long as his ICPs remain low Palliative care consult placed for tomorrow, will await input from palliative care and family prior to tracheostomy and feeding tube placement Prognosis at this point remains grim for meaningful recovery 10/25/16 Patient with severe brain injury not showing any signs of neurologic recovery and last few days ICPs remain low apparently throughout the weekend and ventriculostomy has been removed by Dr. Cruz Palliative care consult is greatly appreciated and it helps us tremendously and decision-making and communication as far as this patient's further care is concerned At this point patient's friends appear to be thinking that he is a fighter and according to Dr. Cruz he has chance of meaningful recovery Therefore we will proceed with tracheostomy and PEG placement in next day or 2 10/26/16 No change in current status No neurologic improvement Able to wean the ventilator gradually however due to inability to protect airway patient will need tracheostomy and PEG placement We'll proceed with tracheostomy tomorrow 10/27/16 Patient with the significant head injury remains on the ventilator no change in neurologic status Weaning at this point is inhibited by the fact that patient cannot protect upper airway and due to the low Pawel Coma Scale Patient has undergone tracheostomy today and will have a PEG placed Copious secretions At this point we'll be able to wean as tolerated considering the presence of tracheostomy. 10/29/2016 PTD: 18 Pt is off all sedation. He is still not arousing. Questionable response to painful stimuli. The family will be meeting today with palliative care to discuss goals of care. 10/30/2016 PTD: 19 Pt now opens his eyes, slightly, but does not follow commands. Pt remains off sedation. Plan for weaning further from the vent. TF will resume 24 hrs post PEG placement as per protocol. 10/31/2016 PTD: 20 Patient on CPAP this morning. Originally respiratory rate equals 30, however proposed pain medication administration - he is now breathing comfortably without distress on CPAP. According to nurses, patient was following commands last night. He would give the "thumbs-up" on his right hand, Wiggle his toes on the right side, and smile. This morning he is comfortable, but lethargic post pain medication administration. 11/01/2016 PTD: 21 Attempt to progress patient from CPAP to T piece. Once patient can be maintained on T-piece he can transferred to the floor. Case management is working diligently on placement. 11/02/2016 PTD: 22 Patient completed CPAP overnight, and is currently on a trach collar. (Osiris Pittman) Objective Vital Signs Date Time Temp Pulse Resp B/P Pulse Ox O2 Delivery O2 Flow Rate FiO2 11/02/16 10:00 96 11/02/16 08:30 35 11/02/16 08:30 92 T-Piece 11/02/16 08:08 5.00 11/02/16 08:00 98.1 31 97/57 Intake and Output 11/01/16 11/01/16 11/02/16 08:00 16:00 00:00 Intake Total 967 ml 1416 ml 1044 ml Output Total 3800 ml 2550.0 ml 1550 ml Balance -2833 ml -1134.0 ml -506 ml (Osiris Pittman) Result Diagram: 11/02/16 1006 11/02/16 1006 Objective Remarks GENERAL: This is a 56 year old male mechanically ventilated. SKIN: Warm and dry. Generalized edema noted. HEAD: Atraumatic. Normocephalic. EYES: PERRLA ENT: No nasal bleeding or discharge. Mucous membranes pink and moist. NECK: Trach. Trachea midline. No JVD. CARDIOVASCULAR: Regular rate and rhythm. CM shows sinus tach. HR = 90-97 RESPIRATORY: Vent. No accessory muscle use. Clear but decreased to auscultation. Breath sounds equal bilaterally. GASTROINTESTINAL: Abdomen soft, non-tender, nondistended. BS + x [address] seal in [address]. Estrella catheter in place to bedside drainage bag with clear yellow urine. MUSCULOSKELETAL: Extremities without cyanosis, or edema. No obvious deformities. + peripheral pulses. NEUROLOGICAL: Mechanically ventilated. Patient opens eyes slightly. Pt does not follow commands. (Osiris Pittman) Urinary Catheter Assessment Urinary Catheter: Yes Assessment to: Continue (Osiris Pittman) Assessment and Plan Assessment: (1) Encephalopathy acute ICD Code: G93.40 Status: Acute (2) Fracture of occipital bone of skull with loss of consciousness ICD Code: S02.119A Status: Acute (3) Subdural hemorrhage following injury ICD Code: S06.5X9A Status: Acute (4) Alcohol dependence ICD Code: F10.20 Status: Acute (5) Traumatic brain injury ICD Code: S06.9X9A Status: Acute (6) Seizure ICD Code: R56.9 Status: Acute (7) Pneumonia ICD Code: J18.9 Status: Acute (8) Pain ICD Code: R52 Status: Acute (9) SAH (subarachnoid hemorrhage) ICD Code: I60.9 Status: Acute Plan ONE[place]: This is a 56-year-old male who sustained a fall from a ladder of approximately 10 feet. He landed on his head. GCS 3 at the scene, and bystanders performed CPR. PMHx: ETOH (12-15 beers daily) drinks beer with morning coffee, 2 PPD smoker, Hep C INJURIES: SAH SDH Large occipital skull fx Aspiration Assessment and plan by systems: NEUROLOGICAL: Pt is off all sedation. Provide analgesia for comfort and pain - oxycodone via tube Seizure prophylaxis - Keppra, and Cerebyx. Valproic acid ordered by neurology. HOB elevated 30 degrees Hyponatremia status - NA - 141 + peripheral pulses x 4 extremities. Patient questionably extends to bilateral upper extremities, and withdraws in the lower extremities to deep painful stimuli. CARDIOVASCULAR: HR = 90-97. Sinus rhythm. BP = WNL Continually monitor for hemodynamic instability (shock and hypotension). BP meds - hydralazine, propranolol, clonidine. Diuretics - Lasix 40 daily with 25 mEq potassium daily Follow CMP Electrolyte protocol in place RESPIRATORY: Tolerated CPAP overnight. T piece today. O2 Sats - Monitor for hypoxemia Edema status - generalized edema Lung sounds - CTA but decreased throughout. Pulmonary toilet = L&S. Bronchodilators - Breathing treatments duonebs. Chest X-Ray results - persistent left lower lobe consolidation and ill-defined opacities in the right lower lung. Sputum culture - 3/5: Moderate growth of respiratory eric. Antibiotics - discontinued at this time. VAP protocol in place Labs tomorrow Chest X-Ray tomorrow GASTROINTESTINAL: Diet: Jevity at 60 cc/hr Bowel sounds - + x 4 quads. Bowel regimen: Cynthia-Colace, M OM. Lactulose 3 times a day. MiraLAX. Bisacody lPR . LBM: 11/[address] with brown liquid stool. RENAL / URINARY: I&O - -1558 BUN / creat [address] to bedside drainage bag Urine culture - 10/24: No growth in 48 hours ENDOCRINE: BGM = 136 via AM labs SSI HEMATOLOGY: H&H 9.1 / 27.1 Continue to monitor for signs and symptoms of bleeding. Evaluate need for IVC filter. Transfuse for < 7.0 US Lower extremity study 10/27: No DVT in bilateral legs Monitor patient for any bleeding complications. INFECTIOUS DISEASE: Follow CBC WBC - 19.5 Fevers - low grade fevers Administer antipyretics for temp as needed. Blood cultures 10/24: Negative Urine 10/24 negative Sputum cultures 10/24 negative IV antibiotics : Discontinued Monitor pneumonia evolution with repeat chest X-Rays as needed. Maintain vigorous aseptic care of central line to avoid blood stream infections. Consider a consult to ID for further management. PROPHYLAXIS: VAP protocol in place GI : Protonix IV DVT - Mechanical VTE with SCDs. Chemical management contraindicated due to SAH/ SDH. (Awaiting neurosurgery clearance) SKIN: Warm, dry. ACTIVITY: Status - BR PT and OT ordered. CASE MANAGEMENT: Consulted for assist with DC planning. Placement - disposition - TBD. Possible transfer for long-term care to [facility] EMOTIONAL SUPPORT: Provided to patient and family. Plan of care discussed. Questions answered to the best of my knowledge. Palliative care has been consulted. Nursing care can be de-escalated to 1:4. This patient is currently critically ill and injured, with traumatic brain injury with respiratory failure due to his injuries. He is being managed in the ICU. The trauma team will round, assess and evaluate the patient on a day to day basis. (Osiris Pittman) Attestation The exam, history, and the medical decision-making described in the above note were completed with the assistance of the mid-level provider. I reviewed and agree with the findings presented. I attest that I had a [id number] encounter with the patient on the same day, and personally performed and documented my assessment and findings in the medical record. Critical care time 40 minutes. (Sherry Parikh MD) Problem Qualifiers (1) Fracture of occipital bone of skull with loss of consciousness: Qualified Code: S02.119A - Fracture of occipital bone of skull with loss of consciousness, closed, initial encounter (2) Subdural hemorrhage following injury: Qualified Code: S06.5X1A - Traumatic subdural hemorrhage with loss of consciousness of 30 minutes or less, initial encounter (3) Traumatic brain injury: Osiris Pittman Nov 02, 2016 12:08 Sherry Parikh MD Nov 04, 2016 17:53
--- NOTE | 2016-11-02 12:18 | HHI.PR ---
Neuropsych Emotional Emotional: UnabletoAssess: Emotional, Anxious/Fearful, Depressed/Sad, Hostile/ Resentful, Irritable/Angry/Frustrate, Labile, Constricted/Blunted Behavior Behavior: Intact: Impulsive/Agitated, Unable to Asses: Behavior, Coping/ Acceptance, Cooperative w/ Treatment, Motivation, Frustration Tolerance/Modena, Suicidal/Homicidal Risk Cognitive Cognitive: Unable to Asses: Cognitive, Attention/Concentration, Confused/ Orientation, Insight/Awareness, Judgement/Problem-Solving, Memory Progress Notes/Response to Tx Contents of Sessions: Adjustment, Level of Consciousness Time with Patient: 15 minutes Premorbid psychological status Premorbid Cognitive, Emotional and Behavioral Status: Deferred. 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 The patient has no known psychiatric difficulties. However, substance abuse history is significant for alcohol dependence and tobacco dependence. Behavioral Reactions of Patient and Family/Support System: Tenuous. The patients family has a limited understanding of the complexities of this patient 's brain injury, and the lifestyle barriers that prevent an optimal recovery. They are expected to have ongoing issues of adjustment given the nature of the injury, and this aspect of recovery will require ongoing monitoring. Emotional/Behavioral Status of Patient and Family/Support System: Tenuous. Pertinent issues, if appropriate to this patients clinical care, are described in detail above. Maximizing acute care outcome It is recommended that the patient be monitored for emergent behavioral impulsivity as the medical condition evolves. This patients neuropathological challenges may limit their rehabilitation potential going forward, and these challenges will require specialized therapeutic skills to maximize outcome. Additionally, the patients family is experiencing ongoing issues of adjustment given the traumatic nature of the injury, and they [will need / may benefit] from ongoing psychological assistance. Anticipated Problems Ongoing areas of concern could include behavioral impulsivity, lack of insight and judgment, which is expected to improve with time and treatment, provided he moves past this stage of recovery. Presently, the patient is not following commands. His long duration alcohol dependence and tobacco dependence, which has led to global cerebral atrophy, will serve as a double barrier to his recovery from this injury. Treatment Plan This clinician will continue to follow with you throughout the course of this patients rehabilitation treatment, and I will be available to meet with the patients family/support system to facilitate their understanding and the ongoing care of their family member. The goals of neuropsychological intervention shall be both educational and supportive to the family/support system as is deemed clinically appropriate. [facility] Level: III:Localized response-total assist Diagnosis: (1) Major neurocognitive disorder as late effect of traumatic brain injury with behavioral disturbance Status: Acute (2) Alcohol dependence Status: Acute Progress Note Narrative Ongoing follow-up of patient who was seen bedside. This patient was awake, somewhat alert, appears to be tracking but not consistently following commands. This would appear to be an improvement compared to yesterday. He is estimated to be at a Rancho III. I will continue to follow with you. Kermit Hughes PhD Nov 02, 2016 12:18 pm
--- NOTE | 2016-11-02 15:48 | HHI.PR ---
Review/Management Diagnosis 1. Encephalopathy 2. Occipital skull fracture 3. TBI status fall with bifrontal contusions, right temporal parietal subdural hemorrhage s/p craniotomy, subarachnoid hemorrhage. 4. History of alcohol abuse/alcohol withdrawal. 5. Abnormal EEG, with sharp wave discharges, epileptogenic in nature Plan - Neuro checks q. one hourly. - Keppra 2gm Q12 h. - Valproate 500mg tid - EEG next am - Obtain Valproate level next am - Keppra level is pending - Seizure prophylaxis. - CIWA protocol IV folate for alcohol withdrawal. - DVT prophylaxis - GI prophylaxis Diagnosis/Plan: Subjective Subjective Comments No acute events reported Depakote level is subtherapeutic Keppra level is pending No reported seizure activity Slow improvement in neurologic status Active Medications Current Medications Medications (Trade) Dose Ordered Sig/Jnoy Route Start Time Stop Time Status Last Admin Miscellaneous Information 1 Q361D XX 10/11/16 13:00 10/11/16 13:00 (Chlorhexidine 2% Cloth) 3 pack Taper DAILY@04 TOP 10/12/16 04:00 10/08/17 03:59 11/02/16 05:46 (Chlorhexidine 2% Cloth) 3 pack UNSCH PRN TOP 10/11/16 13:00 (Apresoline Inj) 10 mg Q2H PRN IV PUSH 10/11/16 13:30 10/28/16 11:33 (Peridex 0.12% Liq) 15 ml BID@08,20 MT 10/12/16 08:00 11/02/16 08:47 (Milk Of Magnesia Liq) 30 ml DAILY PO 10/12/16 10:00 11/02/16 08:46 (Tylenol Supp) 650 mg Q4H PRN WA 10/15/16 12:15 Info 1 UNSCH XX 10/17/16 11:00 (NS Flush) 2 ml UNSCH PRN IVF 10/18/16 11:45 (NS Flush) 2 ml BID IVF 10/18/16 21:00 11/02/16 07:41 (Dulcolax Supp) 10 mg DAILY PRN WA 10/18/16 11:45 10/18/16 14:36 (Colace) 100 mg BID PO 10/18/16 21:00 11/02/16 08:47 (Protonix Inj) 40 mg DAILY IVP 10/19/16 09:00 11/02/16 08:47 (Zofran Inj) 4 mg Q6H PRN IV 10/18/16 11:45 Calcium Gluconate 1 gm 1 gm UNSCH PRN IV 10/18/16 11:45 Potassium Chloride 100 ml @ 50 mls/hr UNSCH PRN IV 10/18/16 11:45 10/25/16 09:35 (Magnesium Sulfate Inj/NS Inj) 108 ml @ 108 mls/hr UNSCH PRN IV 10/18/16 11:45 (Tylenol) 650 mg Q4H PRN PO 10/18/16 11:45 10/31/16 13:37 (Lactulose Liq) 30 ml TID PO 10/21/16 13:00 11/02/16 08:47 (Miralax) 17 gm BID PO 10/21/16 11:00 11/02/16 08:47 (Inderal) 20 mg Q6HR PO 10/22/16 18:00 11/02/16 13:02 (Trandate Inj) 20 mg Q1H PRN IV PUSH 10/22/16 16:45 10/28/16 11:45 Clonidine 0.3 mg 0.3 mg Q8HR PO 10/22/16 16:42 11/02/16 13:02 (Thiamine Inj/ D5W 100 ml Inj) 101 ml @ 100 mls/hr Q24H IV 10/23/16 20:00 11/01/16 21:21 (Folate) 1 mg DAILY PO 10/25/16 09:00 11/02/16 08:47 (Theragran) 1 tab DAILY PO 10/25/16 09:00 11/02/16 08:47 (Senna Liq) 8.8 mg BID PO/NG 10/24/16 21:00 11/02/16 08:46 (Roxicodone Intensol Liq) 5 mg Q4H PRN PO 10/24/16 12:30 (Roxicodone Intensol Liq) 10 mg Q4H PRN PO 10/24/16 12:30 10/31/16 10:17 (Lasix Inj) 40 mg DAILY IV PUSH 10/26/16 09:00 11/02/16 08:47 (K-Lyte Cl Eff) 25 meq DAILY TUBE 10/26/16 09:00 11/02/16 08:46 Levetriacetam 1500 mg 1,500 mg Q12HR TUBE 10/27/16 21:00 11/02/16 08:46 (Depacon Inj/D5W 100 ml Inj) 105 ml @ 105 mls/hr Q8HR IV 11/01/16 06:00 11/02/16 13:02 Allergies Allergies Coded Allergies UNOBTAINABLE (Unverified10/11/16) Review of Systems All other ROS: Unable to obtain Exam I&O / VS 11/01/16 11/01/16 11/02/16 15:00 23:00 07:00 Intake Total 1416 ml 1044 ml 882 ml Output Total 2550 ml 1550 ml 800 ml Balance -1134 ml -506 ml 82 ml IV Total 776 ml 370 ml 372 ml Tube Feeding 520 ml 574 ml 510 ml Other 120 ml 100 ml Output Urine Total 2400 ml 1450 ml 800 ml Stool Total 150 ml 100 ml 0 ml Tube Feeding Residual Discard 0 ml Vital Signs Date Time Temp Pulse Resp B/P Pulse Ox O2 Delivery O2 Flow Rate FiO2 11/02/16 14:00 88 11/02/16 12:00 102 11/02/16 12:00 35 11/02/16 12:00 98.3 99 24 128/71 94 11/02/16 10:00 96 11/02/16 08:30 35 11/02/16 08:30 92 T-Piece 35 11/02/16 08:08 98 T-piece 5.00 40 11/02/16 08:00 80 11/02/16 08:00 98.1 80 31 97/57 100 11/02/16 08:00 40 11/02/16 07:00 96 Mechanical Ventilator 40 11/02/16 06:00 105 11/02/16 04:05 96 40 11/02/16 04:00 98 11/02/16 04:00 99.0 98 26 144/63 95 11/02/16 04:00 40 11/02/16 02:00 90 11/02/16 01:03 96 40 11/02/16 00:00 99.4 95 27 105/62 96 11/02/16 00:00 40 11/02/16 00:00 95 11/01/16 22:00 97 11/01/16 21:07 96 40 11/01/16 20:00 91 11/01/16 20:00 40 11/01/16 20:00 98.6 91 30 118/58 96 11/01/16 19:00 96 Mechanical Ventilator 40 11/01/16 18:00 100 11/01/16 16:00 96 11/01/16 16:00 99.8 96 29 117/65 93 Respiratory: Coarse breath sounds Musculoskeletal: ROM (Grossly within normal limits), Other (SCDs and Multi- Podus boots in place) Exam Comments GENERAL: Mechanically vented through tracheostomy tube , off sedation NECK: No JVD, no carotid bruit. CHEST: Clear to auscultation bilaterally. No wheezes. CARDIOVASCULAR: Regular rate and rhythm. EXTREMITIES: No edema. No abnormal posturing. NEUROLOGIC: Spontaneous eye opening, pupils 3mm b/l symmetrical, reacting to light, tracks movements, ? visual threat reflex, non - verbal, Plantar's bilateral downgoing. No gaze deviation on examining , unable to assess muscle strength, sensory system or cerebellar function due to patient's condition Objective Radiology Results Last 72 hours Impressions Chest X-Ray 10/31/16 0600 Signed Impressions: Service Date/Time: Monday, October 31, 2016 04:56 - CONCLUSION: Persistent left lower lobe consolidation and ill-defined opacities in the right lower lung. Cosmo Abbasi MD Micro and Labs Laboratory Tests Test 11/02/16 10:06 White Blood Count 19.5 Red Blood Count 2.88 Hemoglobin 9.1 Hematocrit 27.4 Mean Corpuscular Volume 95.4 Mean Corpuscular Hemoglobin 31.7 Mean Corpuscular Hemoglobin 33.2 Concent Red Cell Distribution Width 13.7 Platelet Count 454 Mean Platelet Volume 8.0 Neutrophils (%) (Auto) 81.7 Lymphocytes (%) (Auto) 6.6 Monocytes (%) (Auto) 9.3 Eosinophils (%) (Auto) 2.1 Basophils (%) (Auto) 0.3 Neutrophils # (Auto) 16.0 Lymphocytes # (Auto) 1.3 Monocytes # (Auto) 1.8 Eosinophils # (Auto) 0.4 Basophils # (Auto) 0.1 CBC Comment DIFF FINAL Differential Comment Sodium Level 141 Potassium Level 4.0 Chloride Level 103 Carbon Dioxide Level 31.1 Anion Gap 7 Blood Urea Nitrogen 16 Creatinine 0.73 Estimat Glomerular Filtration 111 Rate Random Glucose 136 Calcium Level 8.4 Magnesium Level 2.1 Total Bilirubin 0.2 Aspartate Amino Transf 51 (AST/SGOT) Alanine Aminotransferase 61 (ALT/SGPT) Alkaline Phosphatase 225 Total Protein 7.1 Albumin 1.6 Valproic Acid (Depakene) Level 29 Amparo Raman MD Nov 02, 2016 15:48
--- NOTE | 2016-11-02 16:34 | HHI.HCPN ---
Reason for visit a. To assist with evaluation and management of symptoms including: encephalopathy; dyspnea; pain b. To assist medical decision maker(s) with: better understanding of current medical conditions; weighing benefits/burdens of medical treatment options; making medical treatment decisions. . Subjective/Interval History Patient seen and assessed in room 1317. Patient weaned from CPAP to T-piece; FiO2 35%. Breath sounds diminished bilaterally. Patient suctioned for large amounts of whitish, thin secretions. Patient showing some neurological improvement. He was awake and more alert today, tracking with eyes and nodding/shaking had an response to some questions. Slight movement in RUE on command. Follow up EEG is showing continuous right hemisphere slowing associated with discharges. The findings suggest right hemisphere structural abnormality with epileptiform features but no ictal pattern present. Afebrile today. WBC increased to 19.5 today (11/02/16), previously at 16.5 on 08/07. Chest x-ray this morning showing bilateral hazy lower lung zone opacity likely representing a combination of parenchymal opacity and pleural effusions no significant interval change in bilateral lower lung zone opacity. Cultures remain negative to date. PEG tube site C/D/I. Patient tolerating Jevity 1.5 at 65ml/hour via PEG tube. . Family/friend interactions Phone call placed to Ana krause) to discuss patient's current clinical condition, patient showing some slow neurological recovery. Patient can be transferred to floor once tolerating T piece. Case management continues to work toward LTC placement. . Advance Directives Living Will: Never completed Health Care Surrogate: Never completed Durable Power of Water Control Supervisor: Never completed Advance Directive Specifics Date completed: Advanced directives were never completed. . Health Care Surrogate(s): There is no written designation of a health care surrogate. . Documented care wishes: No written documentation of health care preferences/goals/wishes . Objective Vital Signs Date Time Temp Pulse Resp B/P Pulse Ox O2 Delivery O2 Flow Rate FiO2 11/02/16 14:00 88 11/02/16 12:00 102 11/02/16 12:00 35 11/02/16 12:00 98.3 99 24 128/71 94 11/02/16 10:00 96 11/02/16 08:30 35 11/02/16 08:30 92 T-Piece 35 11/02/16 08:08 98 T-piece 5.00 40 11/02/16 08:00 80 11/02/16 08:00 98.1 80 31 97/57 100 11/02/16 08:00 40 11/02/16 07:00 96 Mechanical Ventilator 40 11/02/16 06:00 105 11/02/16 04:05 96 40 11/02/16 04:00 98 11/02/16 04:00 99.0 98 26 144/63 95 11/02/16 04:00 40 11/02/16 02:00 90 11/02/16 01:03 96 40 11/02/16 00:00 99.4 95 27 105/62 96 11/02/16 00:00 40 11/02/16 00:00 95 11/01/16 22:00 97 11/01/16 21:07 96 40 11/01/16 20:00 91 11/01/16 20:00 40 11/01/16 20:00 98.6 91 30 118/58 96 11/01/16 19:00 96 Mechanical Ventilator 40 11/01/16 18:00 100 11/01/16 16:00 96 11/01/16 16:00 99.8 96 29 117/65 93 Intake & Output 11/02/16 11/02/16 07:00 19:00 Intake Total 1926 ml 727 ml Output Total 2350 ml 1050 ml Balance -424 ml -323 ml IV Total 742 ml 274 ml Tube Feeding 1084 ml 393 ml Tube Irrigant 60 ml Other 100 ml Output Urine Total 2250 ml 650 ml Stool Total 100 ml 400 ml . Physical Exam CONSTITUTIONAL/GENERAL: This is an adequately nourished patient trach to T-piece ; FiO2 35%. TUBES/LINES/DRAINS: Tracheostomy; Gann catheter; PIV x 2, SCDs, PEG, fecal tube SKIN: There is a healing right craniotomy surgical wound without signs or symptoms of infection. HEAD: s/p craniotomy, right skull flap is soft. EYES: Pupils equal, round, reactive. No scleral icterus. No injection or drainage. Fundi not examined. ENT: Nose without bleeding or purulent drainage. NECK: Trachea midline. Obesedifficult to evaluate. CARDIOVASCULAR: Regular rate and rhythm without murmurs, gallops, or rubs. RESPIRATORY/CHEST: Tracheostomy to T-piece. FiO2 35%. GASTROINTESTINAL: Abdomen rounded. BS active x 4. Flex seal in place. GENITOURINARY: Without palpable bladder distension. Gann catheter in place. MUSCULOSKELETAL: Extremities without clubbing, cyanosis. No mottling or clubbing. + peripheral pulses. NEUROLOGICAL: Patient is awake, tracking with eyes. Nodding /shaking head in response to some questions. PSYCHIATRIC: Does not appear to be experiencing anxiety/agitation. . . Diagnostic Tests Laboratory Laboratory Tests Test 10/31/16 10/31/16 10/31/16 11/02/16 03:53 05:08 15:17 10:06 Sodium Level 134 MEQ/L 141 MEQ/L (136-145) (136-145) Potassium Level 3.7 MEQ/L 4.0 MEQ/L (3.5-5.1) (3.5-5.1) Chloride Level 97 MEQ/L 103 MEQ/L (98-107) (98-107) Carbon Dioxide Level 26.6 MEQ/L 31.1 MEQ/L (21.0-32.0) (21.0-32.0) Anion Gap 10 MEQ/L (5-15) 7 MEQ/L (5-15) Blood Urea Nitrogen 14 MG/DL (7-18) 16 MG/DL (7-18) Creatinine 0.72 MG/DL 0.73 MG/DL (0.60-1.30) (0.60-1.30) Estimat Glomerular Filtration 113 ML/MIN 111 ML/MIN Rate (>89) (>89) Random Glucose 133 MG/DL 136 MG/DL (74-106) (74-106) Calcium Level 7.8 MG/DL 8.4 MG/DL (8.5-10.1) (8.5-10.1) White Blood Count 16.5 TH/MM3 19.5 TH/MM3 (4.0-11.0) (4.0-11.0) Red Blood Count 2.77 MIL/MM3 2.88 MIL/MM3 (4.50-5.90) (4.50-5.90) Hemoglobin 9.1 GM/DL 9.1 GM/DL (13.0-17.0) (13.0-17.0) Hematocrit 26.1 % 27.4 % (39.0-51.0) (39.0-51.0) Mean Corpuscular Volume 94.3 FL 95.4 FL (80.0-100.0) (80.0-100.0) Mean Corpuscular Hemoglobin 32.8 PG 31.7 PG (27.0-34.0) (27.0-34.0) Mean Corpuscular Hemoglobin 34.8 % 33.2 % Concent (32.0-36.0) (32.0-36.0) Red Cell Distribution Width 13.5 % 13.7 % (11.6-17.2) (11.6-17.2) Platelet Count 373 TH/MM3 454 TH/MM3 (150-450) (150-450) Mean Platelet Volume 8.2 FL 8.0 FL (7.0-11.0) (7.0-11.0) Vancomycin Level Trough 18.0 MCG/ML (5.0-10.0) Neutrophils (%) (Auto) 81.7 % (16.0-70.0) Lymphocytes (%) (Auto) 6.6 % (9.0-44.0) Monocytes (%) (Auto) 9.3 % (0.0-8.0) Eosinophils (%) (Auto) 2.1 % (0.0-4.0) Basophils (%) (Auto) 0.3 % (0.0-2.0) Neutrophils # (Auto) 16.0 TH/MM3 (1.8-7.7) Lymphocytes # (Auto) 1.3 TH/MM3 (1.0-4.8) Monocytes # (Auto) 1.8 TH/MM3 (0-0.9) Eosinophils # (Auto) 0.4 TH/MM3 (0-0.4) Basophils # (Auto) 0.1 TH/MM3 (0-0.2) CBC Comment DIFF FINAL Differential Comment Magnesium Level 2.1 MG/DL (1.5-2.5) Total Bilirubin 0.2 MG/DL (0.2-1.0) Aspartate Amino Transf 51 U/L (15-37) (AST/SGOT) Alanine Aminotransferase 61 U/L (12-78) (ALT/SGPT) Alkaline Phosphatase 225 U/L (45-117) Total Protein 7.1 GM/DL (6.4-8.2) Albumin 1.6 GM/DL (3.4-5.0) Valproic Acid (Depakene) Level 29 MCG/ML (50-100) . Result Diagram: 11/02/16 1006 11/02/16 1006 Imaging Last 72 hours Impressions Chest X-Ray 10/31/16 0600 Signed Impressions: Service Date/Time: Monday, October 31, 2016 04:56 - CONCLUSION: Persistent left lower lobe consolidation and ill-defined opacities in the right lower lung. Cosmo Abbasi MD . Procedures * Anita hole with ICP monitor placed * Right craniectomy * Art line placement * Intubation/mechanical ventilation * Central line placement. * Tracheostomy * Peg tube . Assessment and Plan Disease Oriented Problem List: (1) Traumatic brain injury (2) SAH (subarachnoid hemorrhage) (3) Subdural hemorrhage following injury (4) Fracture of occipital bone of skull with loss of consciousness (5) Encephalopathy acute (6) Alcohol dependence Comment: Long history of 12-15 drinks per day. . (7) Major neurocognitive disorder as late effect of traumatic brain injury with behavioral disturbance (8) Seizure (9) Pneumonia Comment: Probable aspiration. Blood in vomitus were in airway immediately after fall. . (10) Hepatitis C antibody positive in blood (11) Rectal bleeding Comment: Has had years of abdominal pain with intermittent rectal bleeding. Has avoided recommended work-up due to lack on insurance, lack of funds, and fear of results (per shasta). . Symptom Scale: (1) Pain 0-10 Scale: Unable to quantify Comment: Patient had history of several pain syndromes. He complained of abdominal pain for years with occasional rectal bleeding. He also complained of right ankle pain where he had surgery and achiness in multiple joints. He would use BC powders several times a day and occasionally hydrocodone. Other current sources of pain might include prolonged bedbound status, post op wound/ head pain, discomfort from trach/gann/OG/vascular access lines. Orders are in place for PRN oxycodone at this time. These appear to be adequate, no requirements in the past 24 hours. No further recommendations at this time. . (2) Dyspnea Comment: Patient with probable aspiration pneumonia. Vomitus and blood were in mouth at time of fall. Sputum culture grew out H. Dyspnea appears adequately controlled with vent support, antibiotics, and diuretics. Tracheostomy to T piece on FiO2 35%. Chest x-ray this morning showing bilateral hazy lower lung zone opacity likely representing a combination of parenchymal opacity and pleural effusionsno significant interval change in bilateral lower lung zone opacity. . (3) Encephalopathy 0-10 Scale: Unable to quantify Comment: This has been multi-factorial and has involved the brain injury, alcohol withdrawal, infection, seizure, etc. Current encephalopathy now mostly due to brain injury, persists off sedation. Patient showing some neurological improvement. He was awake and more alert today, tracking with eyes and nodding/ shaking had an response to some questions. Slight movement in RUE on command. Follow up EEG is showing continuous right hemisphere slowing associated with discharges. The findings suggest right hemisphere structural abnormality with epileptiform features but no ictal pattern present. Plan repeat EEG in AM. Pertinent Non-Medical Issues Psychosocial: Social support consists of amye, brother, sister and friend - - Patricio Oleary. Spiritual: [employer] background. Congregation and spirituality have not played an important role in his life. Shasta appreciates flumer visits. Legal: No advance directives. Without a designated health care surrogate, decision-making appears to fall to the majority of his siblings. Ethical issues impacting care: Patient is incapacitated to make his own health care decisions. It is unclear if/when he will regain capacity. . Important Contacts * Brandy Taliaenrique (spouse) [phone] or [phone] * Robyn "Manuela"reynold (sister) - [facility] care proxy: * Perez Schroeder" (brother) [phone] * Robyn "Jamila" Ubaldo (niece) [phone] . 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 It is unclear if he had some sort of event causing the fall (he had vomitus and blood in his airway at time of fall) or merely fell. His injuries include occipital bone fracture, SDH, SAH. Complications include EtOH withdrawal, aspiration pneumonia. He has had high ICPs and ultimately underwent right sided craniectomy for decompression. He has had seizure activity. There has been little evidence so far of meaningful neurological recovery. Neurosurgery feels there continues to be a reasonable chance of meaningful neurologic recovery (though it will take a lot of time) and is recommending ongoing aggressive care. . Code Status: Full Code Plan == Code Status: FULL CODE == Decision making: Mr. Nixon is incapacitated to make his own health care decisions and it is unclear if/when he will regain capacity. Patient is not legally , has no children, and the parents who adopted him are . Under [place], decision making would fall to the patient's adoptive siblings -- Robyn and Demarco. Demarco has agreed to defer decision making to Robyn so ROBYN IS THE OFFICIAL PROXY DECISION MAKER per my phone conversation with Demarco on 10/26/16 at 13:25. The patient's fiancee -- Brandy Workman -- has no decision making authority, but the siblings are including her in the conversations. == Goals of medical treatment: The patient's family remains cautiously optimistic, hopeful the patient will have continued neurological recovery. == Family has requested to speak with neurosurgery to discuss what level of neurological recovery neurosurgery anticipates in this patient and in what timeframe recovery may occur. Viky BRAMBILA is aware of family request. Discussed with patient's nurse. == Status post tracheostomy on 10/28/16 and PEG tube placement on 10/29/16. == Encephalopathy: This has been multi-factorial and has involved the brain injury, alcohol withdrawal, infection, seizure, etc. Current encephalopathy now mostly due to brain injury, persists off sedation. Patient showing some neurological improvement. He was awake and more alert today, tracking with eyes and nodding/shaking had an response to some questions. Slight movement in RUE on command. Follow up EEG is showing continuous right hemisphere slowing associated with discharges. The findings suggest right hemisphere structural abnormality with epileptiform features but no ictal pattern present. Plan repeat EEG in AM. == Pain: Patient had history of several pain syndromes. He complained of abdominal pain for years with occasional rectal bleeding. He also complained of right ankle pain where he had surgery and achiness in multiple joints. He would use BC powders several times a day and occasionally hydrocodone. Other current sources of pain might include prolonged bedbound status, post op wound/ head pain, discomfort from trach/gann/OG/vascular access lines. Orders are in place for PRN oxycodone at this time. These appear to be adequate, no requirements the past 24 hours No further recommendations at this time. == Dyspnea: Patient with probable aspiration pneumonia. Vomitus and blood were in mouth at time of fall. Sputum culture grew out H. flu. Patient also has anasarca and may have a component of pulmonary edema. Dyspnea appears adequately controlled with vent support, antibiotics, and diuretics. Tracheostomy to T piece, FiO2 35%. Patient can be transferred to floor once tolerating T piece. Chest x-ray this morning showing bilateral hazy lower lung zone opacity likely representing a combination of parenchymal opacity and pleural effusionsno significant interval change in bilateral lower lung zone opacity. == Palliative care will continue to follow to assist with symptom management and to further clarify goals of medical treatment as the clinical course evolves -met with patient's fianc, sister, cousin and best friend on 10/29/16 to further clarify . medical treatment goals of care. . Татьяна Hauser Nov 02, 2016 16:34
[2016-11-02] MEDS: THIAMINE IV SCH ×2 (21:16)
[2016-11-03] VITALS (18 sets, daily range): BP systolic 109–139; BP diastolic 61–79; PULSE 83–104; RESP 25–33; TEMP 98.1–99.4; O2SAT 95–100
[2016-11-03] MEDS: PROPRANOLOL HCL 20 MG TAB PO SCH ×4 (01:17→18:39)
[2016-11-03] MEDS: CHLORHEXIDINE GLUCONATE 2 % 1 PACK (2 CLOTHS) TOP SCH (04:00)
[2016-11-03] MEDS: DEXTROSE 5% IV SCH ×4 (06:26→22:16)
[2016-11-03] MEDS: VALPROATE IV SCH ×2 (06:26)
[2016-11-03] MEDS: WATER IV SCH ×4 (06:26→22:16)
[2016-11-03] MEDS: cloNIDine HCL 0.3 MG TAB PO SCH ×3 (06:26→22:17)
[2016-11-03] MEDS: CHLORHEXIDINE 0.12% (ORAL KIT) 15 ML CUP MT SCH ×2 (08:00→22:16)
[2016-11-03] MEDS: MAGNESIUM HYDROXIDE SUSP 30 ML CUP PO SCH (08:43)
[2016-11-03] MEDS: POLYETHYLENE GLYCOL 17 GM PKG PO SCH ×2 (08:43→21:00)
[2016-11-03] MEDS: DOCUSATE SODIUM 100 MG CAP PO SCH ×2 (08:43→21:00)
[2016-11-03] MEDS: LACTULOSE SYRUP 20 GM/30 ML CUP PO SCH ×3 (08:43→17:48)
[2016-11-03] MEDS: SENNOSIDES SYRUP 8.8 MG/5 ML CUP PO/NG SCH ×2 (09:00→21:00)
[2016-11-03] MEDS: FUROSEMIDE 40 MG/4 ML VIAL IV PUSH SCH (09:46)
[2016-11-03] MEDS: MULTIVITAMIN TAB PO SCH (09:46)
[2016-11-03] MEDS: PANTOPRAZOLE SODIUM 40 MG VIAL IVP SCH (09:46)
[2016-11-03] MEDS: SODIUM CHLORIDE 0.9% FLUSH 5 ML FLUSH IVF SCH ×2 (09:47→22:16)
[2016-11-03] MEDS: FOLIC ACID 1 MG TAB PO SCH (09:47)
[2016-11-03] MEDS: POTASSIUM CHLORIDE 25 MEQ EFFERVESCENT TAB TUBE SCH (09:47)
[2016-11-03] MEDS: levETIRAcetam 500 MG/5 ML UDC TUBE SCH ×2 (09:47→22:15)
--- NOTE | 2016-11-03 12:22 | HHI.PR ---
Neuropsych Emotional Emotional: UnabletoAssess: Emotional, Anxious/Fearful, Depressed/Sad, Hostile/ Resentful, Irritable/Angry/Frustrate, Labile, Constricted/Blunted Behavior Behavior: Mild: Frustration Tolerance/[place] Cognitive Cognitive: Unable to Asses: Cognitive, Attention/Concentration, Confused/ Orientation, Insight/Awareness, Judgement/Problem-Solving, Memory Progress Notes/Response to Tx Contents of Sessions: Level of Consciousness Time with Patient: 30 minutes Premorbid psychological status Premorbid Cognitive, Emotional and Behavioral Status: Deferred. 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 The patient has no known psychiatric difficulties. However, substance abuse history is significant for alcohol dependence and tobacco dependence. Behavioral Reactions of Patient and Family/Support System: Tenuous. The patients family has a limited understanding of the complexities of this patient 's brain injury, and the lifestyle barriers that prevent an optimal recovery. They are expected to have ongoing issues of adjustment given the nature of the injury, and this aspect of recovery will require ongoing monitoring. Emotional/Behavioral Status of Patient and Family/Support System: Tenuous. Pertinent issues, if appropriate to this patients clinical care, are described in detail above. Maximizing acute care outcome It is recommended that the patient be monitored for emergent behavioral impulsivity as the medical condition evolves. This patients neuropathological challenges may limit their rehabilitation potential going forward, and these challenges will require specialized therapeutic skills to maximize outcome. Additionally, the patients family is experiencing ongoing issues of adjustment given the traumatic nature of the injury, and they [will need / may benefit] from ongoing psychological assistance. Anticipated Problems Ongoing areas of concern could include behavioral impulsivity, lack of insight and judgment, which is expected to improve with time and treatment, provided he moves past this stage of recovery. Presently, the patient is not following commands. His long duration alcohol dependence and tobacco dependence, which has led to global cerebral atrophy, will serve as a double barrier to his recovery from this injury. Treatment Plan This clinician will continue to follow with you throughout the course of this patients rehabilitation treatment, and I will be available to meet with the patients family/support system to facilitate their understanding and the ongoing care of their family member. The goals of neuropsychological intervention shall be both educational and supportive to the family/support system as is deemed clinically appropriate. [facility] Level: III:Localized response-total assist Diagnosis: (1) Major neurocognitive disorder as late effect of traumatic brain injury with behavioral disturbance Status: Acute (2) Alcohol dependence Status: Acute Progress Note Narrative This is an ongoing follow-up of patient seen both during daily trauma rounds and bedside. The patient continues to show some improvements, as he is awake and tracks, but no consistent following of commands. He meets criteria for a Rancho III. He is taking Valproate and Keppra for seizure management. He is cleared for discharge to [facility]. I will continue to follow with you until that time. Kermit Hughes PhD Nov 03, 2016 12:22 pm
[2016-11-03] MEDS: ENOXAPARIN SODIUM 40 MG/0.4 ML SYRINGE SQ SCH (12:45)
--- NOTE | 2016-11-03 17:15 | HHI.CCPN ---
Subjective Brief History Elderly male who was brought in as a trauma alert after he fell 10 feet from a ladder. GCS 6 initially at the scene subsequently improved to 11 on arrival in the ER. Patient was evaluated by trauma team and subsequently underwent imaging studies and transferred to the ICU. Imaging studies revealed an occipital skull fracture, subdural and subarachnoid blood. Patient was awake and alert at the time of evaluation and following commands and moving all 4 extremities. He could not hear and had some speech difficulty at the time of my evaluation with difficulty in communication though was following commands appropriately. C spine cleared by Neurosurgery at the time of my evaluation. Patient developed worsening agitation despite Precedex last evening. Since then patient had to be intubated ventilated and is currently on propofol fentanyl and Versed drips to keep him down When these are discontinued or less and patient starts biting on the to and becomes restless moves all [address] scan of the head reveals worsening subdural and subarachnoid hemorrhage and the midline shift of about 8 mm 24 Hour Review/Hospital Course Patient has worsened in last 24 hours Repeat CAT scan reveals worsening subdural bleeding over the right parieto- occipital area and [id number] shift of about 8 mm Patient is elderly and a heavy drinker and therefore has atrophy of the brain so there is some more space that allows for compartment pressure IE ICP to remain low We will discuss with neurosurgery about placing ICP monitor or even draining subdural hematoma at this time. Patient remains hyperventilated and on hypertonic saline nonetheless will require bolt placement to assess for ICP and the effectiveness of the therapy 10/13/2016 Patient neurologically unchanged Repeat CAT scan shows some decrease in subdural hematoma and slight decrease in shift yet still severe brain injury At the family's request a second opinion neurosurgery consult was placed and second neurosurgeon has evaluated the patient She will have a long-term recovery here and have discussed this at length with the family Patient may need tracheostomy and PEG tube placement as the part of the appropriate treatment 10/14/2016 Patient with a severe brain injury and subdural hematoma and intraparenchymal hemorrhage Underwent yesterday ventriculostomy placement ICP is within physiologic range at this time and the subdural hematoma size has somewhat decreased There is no change in the neurologic status over the last 24 hours 10/17/16 No change in neurologic status Patient withdraws to pain but does not open eyes or communicates in anyway All sedation has been removed and ventilatory settings been gradually decreased in order to allow for 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 Hypertonic saline was held for profound hypernatremia. EEG showed complete moderate encephalopathy. He will require tracheostomy and gastrostomy tube placement once stable. There was 1 episode of mucous plugging which resolved with aggressive suctioning. 10/23/16 Plan was for tracheostomy today, patient however has elevated ICPs into the 30s We will defer tracheostomy until patient is stable 10/24/16 ICP is improved following administration of neostigmine and a large bowel movement He is likely ready for tracheostomy now, as long as his ICPs remain low Palliative care consult placed for tomorrow, will await input from palliative care and family prior to tracheostomy and feeding tube placement Prognosis at this point remains grim for meaningful recovery 10/25/16 Patient with severe brain injury not showing any signs of neurologic recovery and last few days ICPs remain low apparently throughout the weekend and ventriculostomy has been removed by Dr. Cruz Palliative care consult is greatly appreciated and it helps us tremendously and decision-making and communication as far as this patient's further care is concerned At this point patient's friends appear to be thinking that he is a fighter and according to Dr. Cruz he has chance of meaningful recovery Therefore we will proceed with tracheostomy and PEG placement in next day or 2 10/26/16 No change in current status No neurologic improvement Able to wean the ventilator gradually however due to inability to protect airway patient will need tracheostomy and PEG placement We'll proceed with tracheostomy tomorrow 10/27/16 Patient with the significant head injury remains on the ventilator no change in neurologic status Weaning at this point is inhibited by the fact that patient cannot protect upper airway and due to the low Pawel Coma Scale Patient has undergone tracheostomy today and will have a PEG placed Copious secretions At this point we'll be able to wean as tolerated considering the presence of tracheostomy. 10/29/2016 PTD: 18 Pt is off all sedation. He is still not arousing. Questionable response to painful stimuli. The family will be meeting today with palliative care to discuss goals of care. 10/30/2016 PTD: 19 Pt now opens his eyes, slightly, but does not follow commands. Pt remains off sedation. Plan for weaning further from the vent. TF will resume 24 hrs post PEG placement as per protocol. 10/31/2016 PTD: 20 Patient on CPAP this morning. Originally respiratory rate equals 30, however proposed pain medication administration - he is now breathing comfortably without distress on CPAP. According to nurses, patient was following commands last night. He would give the "thumbs-up" on his right hand, Wiggle his toes on the right side, and smile. This morning he is comfortable, but lethargic post pain medication administration. 11/01/2016 PTD: 21 Attempt to progress patient from CPAP to T piece. Once patient can be maintained on T-piece he can transferred to the floor. Case management is working diligently on placement. 11/02/2016 PTD: 22 Patient completed CPAP overnight, and is currently on a trach collar. 11/03/2016 PTD: 23 No changes noted at time. Patient remains on CPAP without incident. Working on placement. (Osiris Pittman) Objective Vital Signs Date Time Temp Pulse Resp B/P Pulse Ox O2 Delivery O2 Flow Rate FiO2 11/03/16 14:00 92 11/03/16 12:00 98.1 26 114/68 100 11/03/16 12:00 40 11/03/16 07:00 Mechanical Ventilator 11/02/16 16:00 6.00 Intake and Output 11/02/16 11/02/16 11/03/16 08:00 16:00 00:00 Intake Total 882 ml 727 ml 966 ml Output Total 800 ml 1050 ml 300 ml Balance 82 ml -323 ml 666 ml (Osiris Pittman) Result Diagram: 11/02/16 1006 11/02/16 1006 Imaging Last Impressions Chest X-Ray 11/02/16 0600 Signed Impressions: Service Date/Time: Wednesday, November 02, 2016 03:32 - CONCLUSION: No significant interval change in bilateral lower lung zone opacity. Jules Chisholm MD Lower Extremity Ultrasound 10/27/16 0000 Signed Impressions: Service Date/Time: Thursday, October 27, 2016 10:13 - CONCLUSION: No DVT either lower extremity. 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 MD Head CT 10/23/16 0000 Signed Impressions: Service Date/Time: Sunday, October 23, 2016 11:21 - CONCLUSION: 1. Examination quality is degraded by motion artifact. There is decreased midline shift, currently measuring 3 mm compared to 6 mm on the prior study. 2. There are persistent hemorrhagic contusions in the right frontal lobe but they are less well-visualized today either related to interval improvement or related to motion artifact. Red Arenas MD Chest CT 10/23/16 0000 Signed Impressions: Service Date/Time: Sunday, October 23, 2016 11:24 - CONCLUSION: 1. Airspace consolidation within the left upper lobe. This could represent an infectious process. 2. Small bilateral pleural effusions with associated compressive atelectasis in the lower lobes. Red Arenas MD Abdomen/Pelvis CT 10/23/16 0000 Signed Impressions: Service Date/Time: Sunday, October 23, 2016 11:27 - CONCLUSION: 1. No acute finding is identified within the abdomen or pelvis. 2. Anasarca. 3. Stable 7 mm nodule on the left adrenal gland. Small size favors a benign process but is incompletely characterized on this examination. Red Arenas MD Neck CTA 10/12/16 0000 Signed Impressions: Service Date/Time: Wednesday, October 12, 2016 09:27 - CONCLUSION: Mild atherosclerotic changes in the proximal portions of both internal carotid arteries but no significant stenosis. Dez Petersen MD Head CTA 10/12/16 0000 Signed Impressions: Service Date/Time: Wednesday, October 12, 2016 09:27 - CONCLUSION: No evidence of acute vascular injury Red Hoffman MD Pelvis X-Ray 10/11/16 1213 Signed Impressions: Service Date/Time: Tuesday, October 11, 2016 12:02 - CONCLUSION: Satisfactory trauma pelvis appearance. Red Hoffman MD Cervical Spine CT 10/11/16 1213 Signed Impressions: Service Date/Time: Tuesday, October 11, 2016 12:19 - CONCLUSION: Occipital skull fracture. No evidence of acute traumatic injury in the cervical spine Red Hoffman MD Objective Remarks GENERAL: This is a 56 year old male mechanically ventilated. SKIN: Warm and dry. Generalized edema noted. HEAD: Atraumatic. Normocephalic. EYES: PERRLA ENT: No nasal bleeding or discharge. Mucous membranes pink and moist. NECK: Trach. Trachea midline. No JVD. CARDIOVASCULAR: Regular rate and rhythm. CM shows sinus tach. HR = 90-97 RESPIRATORY: Vent - CPAP. No accessory muscle use. Clear but decreased to auscultation. Breath sounds equal bilaterally. GASTROINTESTINAL: Abdomen soft, non-tender, nondistended. BS + x [address] seal in [address]. Estrella catheter in place to bedside drainage bag with clear yellow urine. MUSCULOSKELETAL: Extremities without cyanosis, or edema. No obvious deformities. + peripheral pulses. NEUROLOGICAL: Mechanically ventilated. Patient opens eyes slightly. Pt does not follow commands. (Osiris Pittman GREEN COFFEE BLENDER) Urinary Catheter Assessment Urinary Catheter: Yes Assessment to: Continue (Osiris Pittman GREEN COFFEE BLENDER) Vascular Central Line Catheter Vascular Central Line Catheter: No (Osiris Pittman GREEN COFFEE BLENDER) Assessment and Plan Assessment: (1) Encephalopathy acute ICD Code: G93.40 Status: Acute (2) Fracture of occipital bone of skull with loss of consciousness ICD Code: S02.119A Status: Acute (3) Subdural hemorrhage following injury ICD Code: S06.5X9A Status: Acute (4) Alcohol dependence ICD Code: F10.20 Status: Acute (5) Traumatic brain injury ICD Code: S06.9X9A Status: Acute (6) Seizure ICD Code: R56.9 Status: Acute (7) Pneumonia ICD Code: J18.9 Status: Acute (8) Pain ICD Code: R52 Status: Acute (9) SAH (subarachnoid hemorrhage) ICD Code: I60.9 Status: Acute Plan [place]: This is a 56-year-old male who sustained a fall from a ladder of approximately 10 feet. He landed on his head. GCS 3 at the scene, and bystanders performed CPR. PMHx: ETOH (12-15 beers daily) drinks beer with morning coffee, 2 PPD smoker, Hep C INJURIES: SAH SDH Large occipital skull fx Aspiration Assessment and plan by systems: NEUROLOGICAL: Pt is off all sedation. Provide analgesia for comfort and pain - oxycodone via tube Seizure prophylaxis - Keppra, and Cerebyx. Valproic acid ordered by neurology. HOB elevated 30 degrees Hyponatremia status - NA - 141 + peripheral pulses x 4 extremities. Patient questionably extends to bilateral upper extremities, and withdraws in the lower extremities to deep painful stimuli. CARDIOVASCULAR: HR = 90-95. Sinus rhythm. BP = 114/68 Continually monitor for hemodynamic instability (shock and hypotension). BP meds - hydralazine, propranolol, clonidine. Diuretics - Lasix 40 daily with 25 mEq potassium daily Follow CMP Electrolyte protocol in place RESPIRATORY: Tolerating CPAP O2 Sats - Monitor for hypoxemia Edema status - generalized edema Lung sounds - CTA but decreased throughout. Pulmonary toilet = L&S. Bronchodilators - Breathing treatments duonebs. Chest X-Ray results - persistent left lower lobe consolidation and ill-defined opacities in the right lower lung. Sputum culture - 10/24: Moderate growth of respiratory eric. Antibiotics - discontinued at this time. VAP protocol in place Labs tomorrow Chest X-Ray tomorrow GASTROINTESTINAL: Diet: Jevity at 60 cc/hr Bowel sounds - + x 4 quads. Bowel regimen: Cynthia-Colace, M OM. Lactulose 3 times a day. MiraLAX. Bisacody [place] . LBM: 11/[address] with brown liquid stool. RENAL / URINARY: I&O - -437 BUN / creat [address] to bedside drainage bag Urine culture - 10/24: No growth in 48 hours ENDOCRINE: BGM = 136 via AM labs SSI HEMATOLOGY: H&H 9.1 / 27.1 Continue to monitor for signs and symptoms of bleeding. Evaluate need for IVC filter. Transfuse for < 7.0 US Lower extremity study 10/27: No DVT in bilateral legs Monitor patient for any bleeding complications. INFECTIOUS DISEASE: Follow CBC WBC - 19.5 Fevers - afebrile Administer antipyretics for temp as needed. Blood cultures 10/24: Negative Urine 10/24 negative Sputum cultures 10/24 negative IV antibiotics : Discontinued Monitor pneumonia evolution with repeat chest X-Rays as needed. Maintain vigorous aseptic care of central line to avoid blood stream infections. Consider a consult to ID for further management. PROPHYLAXIS: VAP protocol in place GI : Protonix IV DVT - Mechanical VTE with SCDs. Chemical management with Lovenox sq SKIN: Warm, dry. ACTIVITY: Status - BR PT and OT ordered. CASE MANAGEMENT: Consulted for assist with DC planning. Placement - disposition - TBD. Attempting to transfer patient to the [facility] for continued management and care. EMOTIONAL SUPPORT: Provided to patient and family. Plan of care discussed. Questions answered to the best of my knowledge. Palliative care has been consulted. Nursing care can be de-escalated to 1:4. This patient is currently critically ill and injured, with traumatic brain injury with respiratory failure due to his injuries. He is being managed in the ICU. The trauma team will round, assess and evaluate the patient on a day to day basis. (Osiris Pittman) Attestation The exam, history, and the medical decision-making described in the above note were completed with the assistance of the mid-level provider. I reviewed and agree with the findings presented. I attest that I had a [id number] encounter with the patient on the same day, and personally performed and documented my assessment and findings in the medical record. Critical care time 35 minutes. (Sherry Parikh MD) Problem Qualifiers (1) Fracture of occipital bone of skull with loss of consciousness: Qualified Code: S02.119A - Fracture of occipital bone of skull with loss of consciousness, closed, initial encounter (2) Subdural hemorrhage following injury: Qualified Code: S06.5X1A - Traumatic subdural hemorrhage with loss of consciousness of 30 minutes or less, initial encounter (3) Traumatic brain injury: Osiris Pittman Nov 03, 2016 17:15 Sherry aPrikh MD Nov 04, 2016 17:59
--- NOTE | 2016-11-03 17:45 | HHI.HCPN ---
Reason for visit a. To assist with evaluation and management of symptoms including: encephalopathy; pain b. To assist medical decision maker(s) with: better understanding of current medical conditions; weighing benefits/burdens of medical treatment options; making medical treatment decisions. . (Татьяна Hauser) Subjective/Interval History Patient seen and assessed in room 1317. Patient remains on CPAP. Breath sounds diminished bilaterally. The patient continues to show slow neurological improvement. He is awake and tracks with his eyes. Family states the patient is communicating with them, not seen during my exam. Patient does not consistently follow commands. Follow up EEG this morningresults pending. Previous EEG on 10/30/16 showed continuous right hemisphere slowing associated with discharges. The findings suggest right hemisphere structural abnormality with epileptiform features but no ictal pattern present. Patient remains on Valproate and Keppra for seizure management. Afebrile today. WBC increased to 19.5 yesterday, previously at 16.5 on 10/31/16. F/u chest x-ray on 11/02/16 showed bilateral hazy lower lung zone opacity likely representing a combination of parenchymal opacity and pleural effusionsno significant interval change in bilateral lower lung zone opacity. Cultures remain negative to date-no new cultures pending PEG tube site C/D/I. Patient tolerating Jevity 1.5 at 65ml/hour via PEG tube. . Family/friend interactions Spoke with patient's sister "Manuela"via telephone. Tentative family meeting scheduled for tomorrow morning between 11 AM and 11:30 AM. (Татьяна Hauser) Advance Directives Living Will: Never completed Health Care Surrogate: Never completed Durable Power of Dental Appliance Fixer: Never completed (Татьяна Hauser) Advance Directive Specifics Date completed: Advanced directives were never completed. . Health Care Surrogate(s): There is no written designation of a health care surrogate. . Documented care wishes: No written documentation of health care preferences/goals/wishes . (Татьяна Hauser) Objective Vital Signs Date Time Temp Pulse Resp B/P Pulse Ox O2 Delivery O2 Flow Rate FiO2 11/03/16 14:00 92 11/03/16 12:00 98.1 90 26 114/68 100 11/03/16 12:00 40 11/03/16 12:00 90 11/03/16 11:50 99 40 11/03/16 10:00 85 11/03/16 08:05 98 40 11/03/16 08:00 40 11/03/16 08:00 83 11/03/16 08:00 98.1 84 26 109/61 99 11/03/16 07:00 98 Mechanical Ventilator 40 11/03/16 06:00 104 11/03/16 04:09 95 40 11/03/16 04:00 97 11/03/16 04:00 35 11/03/16 02:00 98 11/03/16 01:05 95 40 11/03/16 00:00 35 11/03/16 00:00 97 11/02/16 22:00 98 11/02/16 20:00 35 11/02/16 20:00 97 11/02/16 20:00 99.5 97 28 141/61 96 11/02/16 19:41 96 40 11/02/16 19:00 96 T-Piece 35 11/02/16 18:00 88 Intake & Output 11/03/16 11/03/16 07:00 19:00 Intake Total 966 ml 1513 ml Output Total 300 ml 1950 ml Balance 666 ml -437 ml IV Total 403 ml 395 ml Tube Feeding 563 ml 898 ml Other 220 ml Output Urine Total 300 ml 1950 ml # Bowel Movements 0 10 . Physical Exam CONSTITUTIONAL/GENERAL: This is an adequately nourished patient status post trach/PEG tube placement, in no acute distress TUBES/LINES/DRAINS: Tracheostomy; Gann catheter; PIV x 2, SCDs, PEG, fecal tube SKIN: There is a healing right craniotomy surgical wound without signs or symptoms of infection. HEAD: s/p craniotomy, right skull flap is soft. EYES: Pupils equal, round, reactive. No scleral icterus. No injection or drainage. Fundi not examined. ENT: Nose without bleeding or purulent drainage. NECK: Trachea midline. Obesedifficult to evaluate. CARDIOVASCULAR: Regular rate and rhythm without murmurs, gallops, or rubs. RESPIRATORY/CHEST: Tracheostomy to CPAP. Bilateral breath sounds are diminished. GASTROINTESTINAL: Abdomen rounded. BS active x 4. Flex seal in place. GENITOURINARY: Without palpable bladder distension. Gann catheter in place. MUSCULOSKELETAL: Extremities without clubbing, cyanosis. No mottling or clubbing. + peripheral pulses. NEUROLOGICAL: Patient is awake, tracking with eyes. Does not consistently follow directions. PSYCHIATRIC: Does not appear to be experiencing anxiety/agitation. . . (Татьяна Hauser) Diagnostic Tests Laboratory Laboratory Tests Test 11/02/16 11/03/16 10:06 03:35 White Blood Count 19.5 TH/MM3 (4.0-11.0) Red Blood Count 2.88 MIL/MM3 (4.50-5.90) Hemoglobin 9.1 GM/DL (13.0-17.0) Hematocrit 27.4 % (39.0-51.0) Mean Corpuscular Volume 95.4 FL (80.0-100.0) Mean Corpuscular Hemoglobin 31.7 PG (27.0-34.0) Mean Corpuscular Hemoglobin 33.2 % Concent (32.0-36.0) Red Cell Distribution Width 13.7 % (11.6-17.2) Platelet Count 454 TH/MM3 (150-450) Mean Platelet Volume 8.0 FL (7.0-11.0) Neutrophils (%) (Auto) 81.7 % (16.0-70.0) Lymphocytes (%) (Auto) 6.6 % (9.0-44.0) Monocytes (%) (Auto) 9.3 % (0.0-8.0) Eosinophils (%) (Auto) 2.1 % (0.0-4.0) Basophils (%) (Auto) 0.3 % (0.0-2.0) Neutrophils # (Auto) 16.0 TH/MM3 (1.8-7.7) Lymphocytes # (Auto) 1.3 TH/MM3 (1.0-4.8) Monocytes # (Auto) 1.8 TH/MM3 (0-0.9) Eosinophils # (Auto) 0.4 TH/MM3 (0-0.4) Basophils # (Auto) 0.1 TH/MM3 (0-0.2) CBC Comment DIFF FINAL Differential Comment Sodium Level 141 MEQ/L (136-145) Potassium Level 4.0 MEQ/L (3.5-5.1) Chloride Level 103 MEQ/L (98-107) Carbon Dioxide Level 31.1 MEQ/L (21.0-32.0) Anion Gap 7 MEQ/L (5-15) Blood Urea Nitrogen 16 MG/DL (7-18) Creatinine 0.73 MG/DL (0.60-1.30) Estimat Glomerular Filtration 111 ML/MIN Rate (>89) Random Glucose 136 MG/DL (74-106) Calcium Level 8.4 MG/DL (8.5-10.1) Magnesium Level 2.1 MG/DL (1.5-2.5) Total Bilirubin 0.2 MG/DL (0.2-1.0) Aspartate Amino Transf 51 U/L (15-37) (AST/SGOT) Alanine Aminotransferase 61 U/L (12-78) (ALT/SGPT) Alkaline Phosphatase 225 U/L (45-117) Total Protein 7.1 GM/DL (6.4-8.2) Albumin 1.6 GM/DL (3.4-5.0) Valproic Acid (Depakene) Level 29 MCG/ML 33 MCG/ML (50-100) (50-100) Levetiracetam (Keppra) Level 44.1 mcg/mL (12.0 - 46.0) . (Татьяна Hauser) Result Diagram: 11/02/16 1006 11/02/16 1006 Imaging Last 72 hours Impressions Chest X-Ray 11/02/16 0600 Signed Impressions: Service Date/Time: Wednesday, November 02, 2016 03:32 - CONCLUSION: No significant interval change in bilateral lower lung zone opacity. Jules Chisholm MD . Procedures * [place] hole with ICP monitor placed * Right craniectomy * Art line placement * Intubation/mechanical ventilation * Central line placement. * Tracheostomy * Peg tube . (Татьяна Hauser) Assessment and Plan Disease Oriented Problem List: (1) Traumatic brain injury (2) SAH (subarachnoid hemorrhage) (3) Subdural hemorrhage following injury (4) Fracture of occipital bone of skull with loss of consciousness (5) Encephalopathy acute (6) Alcohol dependence Comment: Long history of 12-15 drinks per day. . (7) Major neurocognitive disorder as late effect of traumatic brain injury with behavioral disturbance (8) Seizure (9) Pneumonia Comment: Probable aspiration. Blood in vomitus were in airway immediately after fall. . (10) Hepatitis C antibody positive in blood (11) Rectal bleeding Comment: Has had years of abdominal pain with intermittent rectal bleeding. Has avoided recommended work-up due to lack on insurance, lack of funds, and fear of results (per shasta). . Symptom Scale: (1) Pain 0-10 Scale: Unable to quantify Comment: Patient had history of several pain syndromes. He complained of abdominal pain for years with occasional rectal bleeding. He also complained of right ankle pain where he had surgery and achiness in multiple joints. He would use BC powders several times a day and occasionally hydrocodone. Other current sources of pain might include prolonged bedbound status, post op wound/ head pain, discomfort from trach/gann/OG/vascular access lines. Orders are in place for PRN oxycodone at this time. These appear to be adequate, no requirements in the past 24 hours. No further recommendations at this time. . (2) Dyspnea Comment: Patient with probable aspiration pneumonia. Vomitus and blood were in mouth at time of fall. Sputum culture grew out H. Dyspnea appears adequately controlled with vent support, antibiotics, and diuretics. Tracheostomy to T piece on FiO2 35%. Chest x-ray this morning showing bilateral hazy lower lung zone opacity likely representing a combination of parenchymal opacity and pleural effusionsno significant interval change in bilateral lower lung zone opacity. . (3) Encephalopathy 0-10 Scale: Unable to quantify Comment: This has been multi-factorial and has involved the brain injury, alcohol withdrawal, infection, seizure, etc. Current encephalopathy now mostly due to brain injury, persists off sedation. Patient showing some neurological improvement. He was awake and more alert today, tracking with eyes and nodding/ shaking had an response to some questions. Slight movement in RUE on command. Follow up EEG is showing continuous right hemisphere slowing associated with discharges. The findings suggest right hemisphere structural abnormality with epileptiform features but no ictal pattern present. Plan repeat EEG in AM. Pertinent Non-Medical Issues Psychosocial: Social support consists of shasta, brother, sister and friend - - Patricio Oleary. Spiritual: Gnosticism background. Mormon and spirituality have not played an important role in his life. Shasta appreciates mortgage lender visits. Legal: No advance directives. Without a designated health care surrogate, decision-making appears to fall to the majority of his siblings. Ethical issues impacting care: Patient is incapacitated to make his own health care decisions. It is unclear if/when he will regain capacity. . Important Contacts * Brandy Workman (spouse) [phone] or [phone] * Amanda "Manuela"reynold (sister) - [facility] proxy: * Perez Schroeder" (brother) [phone] * Amanda "Jamila" Ubaldo (niece) [phone] . Prognosis Patient is a 2 ppd smoker and 12-15 drink/day EtOH uses who fell 10 feet off a ladder at a [employer] job. It is unclear if he had some sort of event causing the fall (he had vomitus and blood in his airway at time of fall) or merely fell. His injuries include occipital bone fracture, SDH, SAH. Complications include EtOH withdrawal, aspiration pneumonia. He has had high ICPs and ultimately underwent right sided craniectomy for decompression. He has had seizure activity. There has been little evidence so far of meaningful neurological recovery. Neurosurgery feels there continues to be a reasonable chance of meaningful neurologic recovery (though it will take a lot of time) and is recommending ongoing aggressive care. . Code Status: Full Code Plan == Code Status: FULL CODE == Decision making: Mr. Nixon is incapacitated to make his own health care decisions and it is unclear if/when he will regain capacity. Patient is not legally , has no children, and the parents who adopted him are . Under the [place] Statutes, decision making would fall to the patient's adoptive siblings -- Amanda and Demarco. Demarco has agreed to defer decision making to Amanda so AMANDA IS THE OFFICIAL PROXY DECISION MAKER per my phone conversation with Demarco on 10/26/16 at 13:25. The patient's fiancee -- Brandy Workman -- has no decision making authority, but the siblings are including her in the conversations. == Goals of medical treatment: The patient's family remains cautiously optimistic, hopeful the patient will have continued neurological recovery. Goals remain aggressive. == Family has requested to speak with neurosurgery to discuss what level of neurological recovery neurosurgery anticipates in this patient and in what timeframe recovery may occur. Viky BRAMBILA is aware of family request. == Status post tracheostomy on 10/28/16 and PEG tube placement on 10/29/16. == Encephalopathy: This has been multi-factorial and has involved the brain injury, alcohol withdrawal, infection, seizure, etc. Current encephalopathy now mostly due to brain injury, persists off sedation. Patient showing some neurological improvement. He was awake and more alert today, tracking with eyes and nodding/shaking had an response to some questions. Slight movement in RUE on command. Follow up EEG is showing continuous right hemisphere slowing associated with discharges. The findings suggest right hemisphere structural abnormality with epileptiform features but no ictal pattern present. EEG ordered for today 11/03/16results pending == Pain: Patient had history of several pain syndromes. He complained of abdominal pain for years with occasional rectal bleeding. He also complained of right ankle pain where he had surgery and achiness in multiple joints. He would use BC powders several times a day and occasionally hydrocodone. Other current sources of pain might include prolonged bedbound status, post op wound/ head pain, discomfort from trach/gann/OG/vascular access lines. Orders are in place for PRN oxycodone at this time. These appear to be adequate, no requirements the past 24 hours No further recommendations at this time. == Dyspnea: Patient with probable aspiration pneumonia. Vomitus and blood were in mouth at time of fall. Sputum culture grew out H. flu. Patient also has anasarca and may have a component of pulmonary edema. Dyspnea appears adequately controlled with vent support, antibiotics, and diuretics. Currently on CPAP. Follow-up chest x-ray on 11/02/16 bilateral hazy lower lung zone opacity likely representing a combination of parenchymal opacity and pleural effusionsno significant interval change in bilateral lower lung zone opacity. == Palliative care will continue to follow to assist with symptom management and to further clarify goals of medical treatment as the clinical course evolves. Family meeting scheduled for 11/02/16 at 11 AM or 11:30 AM. . (Татьяна Hauser) Collaborating MD Comments Chart reviewed. Cased discussed with palliative care LEASE EXAMINER. Above LEASE EXAMINER note reviewed and I concur. . (Hayden Oviedo MD) Татьяна Hauser Nov 03, 2016 17:45 Hayden Oviedo MD January 17, 2017 13:11
--- NOTE | 2016-11-03 19:52 | MG ---
cc: JEIR RUBIO M.D. Lab No: Date: 11/03/2016 Age: Sex: M Race: REQUESTING PHYSICIAN Dr. Raman. An EEG was obtained on this 56-year-old patient being evaluated for head injury. Previous EEG apparently showed right hemisphere slowing with sharp discharges. MEDICATIONS 1. Valproate. 2. Keppra. 3. Vitamins. 4. Trandate. 5. Inderal. 6. Catapres. The patient following simple commands, intubated. No sedation. DESCRIPTION The EEG study is showing right hemisphere higher amplitude rhythms with some intermixed slowing and this seems to be continuous throughout the study. There are some theta and alpha rhythms on the left. There is clearly more alpha activity on the left than right. The slower rhythms are maximum right frontal central. There are some sharp waves on the right frontal central as well. Artifact is often seen, more so on the left frontotemporal than other regions. INTERPRETATION This EEG is abnormal showing right frontal central slowing with some probable sharp waves / discharges and suspect this to be a breach rhythm. No ictal abnormality. No definitive epileptiform features present. There is some slowing on the left though mild. In comparison to prior reports this EEG seems to be significantly improved. MD KIM Dubois/KK /7:39 PM /7:47 PM
[2016-11-03] MEDS: THIAMINE IV SCH ×2 (22:16)
[2016-11-03] MEDS: VALPROATE INJ 1,000 MG in SODIUM CHLORIDE 0.9% INJ 100 ML IV SCH (22:16)
[2016-11-04] VITALS (15 sets, daily range): BP systolic 109–144; BP diastolic 59–79; PULSE 80–102; RESP 20–33; TEMP 98.5–100.6; O2SAT 96–100
[2016-11-04] MEDS: PROPRANOLOL HCL 20 MG TAB PO SCH ×4 (00:40→17:28)
[2016-11-04] MEDS: CHLORHEXIDINE GLUCONATE 2 % 1 PACK (2 CLOTHS) TOP SCH (04:00)
[2016-11-04 04:33] LABS: HEMATOCRIT 26.3 % (39.0-51.0); MEAN CORPUSCULAR HEMOGLOBIN 31.6 PG (27.0-34.0); MEAN CORPUSCULAR HGB CONC 33.3 % (32.0-36.0); PLATELET COUNT 463 TH/MM3 (150-450); RED BLOOD COUNT 2.77 MIL/MM3 (4.50-5.90); RED CELL DISTRIBUTION WIDTH 13.7 % (11.6-17.2); REVIEW FLAG FINAL; WHITE BLOOD COUNT 13.4 TH/MM3 (4.0-11.0)
[2016-11-04 04:56] LABS: BICARBONATE 31.1 MEQ/L (21.0-32.0); MAGNESIUM 2.1 MG/DL (1.5-2.5); POTASSIUM 4.1 MEQ/L (3.5-5.1)
--- NOTE | 2016-11-04 05:56 | RADRPT ---
EXAM DATE/TIME: 11/04/2016 04:50 [facility] COMPARISON: CHEST SINGLE AP, November 02, 2016, 3:32. INDICATIONS : Shortness of breath, possible pulmonary disease. MEDICAL HISTORY : Hypertension. SURGICAL HISTORY : None. ENCOUNTER: Subsequent ACUITY: 2 weeks PAIN SCORE: Non-responsive. LOCATION: Bilateral chest FINDINGS: Tracheostomy tube is again seen. Persistent patchy pulmonary opacity at the lung bases right greater than left. No significant interval change. . Cardiomediastinal silhouette within normal limits. No ev idence of pleural effusion or pneumothorax. CONCLUSION: Patchy right lung base opacity nonspecific. Jules Chisholm MD on November 04, 2016 at 5:54 Board Certified Radiologist. This report was verified electronically.
[2016-11-04] MEDS: cloNIDine HCL 0.3 MG TAB PO SCH ×3 (06:35→21:28)
[2016-11-04] MEDS: CHLORHEXIDINE 0.12% (ORAL KIT) 15 ML CUP MT SCH ×2 (08:00→21:29)
[2016-11-04] MEDS: levETIRAcetam 500 MG/5 ML UDC TUBE SCH ×2 (08:56→21:28)
[2016-11-04] MEDS: DOCUSATE SODIUM 100 MG CAP PO SCH ×2 (08:56→21:28)
[2016-11-04] MEDS: POLYETHYLENE GLYCOL 17 GM PKG PO SCH ×2 (08:57→21:28)
[2016-11-04] MEDS: MULTIVITAMIN TAB PO SCH (08:57)
[2016-11-04] MEDS: POTASSIUM CHLORIDE 25 MEQ EFFERVESCENT TAB TUBE SCH (08:57)
[2016-11-04] MEDS: FUROSEMIDE 40 MG/4 ML VIAL IV PUSH SCH (08:57)
[2016-11-04] MEDS: SODIUM CHLORIDE 0.9% FLUSH 5 ML FLUSH IVF SCH ×2 (08:57→21:29)
[2016-11-04] MEDS: FOLIC ACID 1 MG TAB PO SCH (08:57)
[2016-11-04] MEDS: PANTOPRAZOLE SODIUM 40 MG VIAL IVP SCH (08:57)
[2016-11-04] MEDS: LACTULOSE SYRUP 20 GM/30 ML CUP PO SCH ×3 (09:00→18:00)
[2016-11-04] MEDS: SENNOSIDES SYRUP 8.8 MG/5 ML CUP PO/NG SCH ×2 (09:00→21:30)
[2016-11-04] MEDS: MAGNESIUM HYDROXIDE SUSP 30 ML CUP PO SCH (09:00)
[2016-11-04] MEDS: VALPROATE INJ 1,000 MG in SODIUM CHLORIDE 0.9% INJ 100 ML IV SCH ×2 (10:04→21:28)
--- NOTE | 2016-11-04 11:33 | HHI.PR ---
Neuropsych Progress Notes/Response to Tx Time with Patient: 15 minutes Premorbid psychological status Premorbid Cognitive, Emotional and Behavioral Status: Deferred. 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 The patient has no known psychiatric difficulties. However, substance abuse history is significant for alcohol dependence and tobacco dependence. Behavioral Reactions of Patient and Family/Support System: Tenuous. The patients family has a limited understanding of the complexities of this patient 's brain injury, and the lifestyle barriers that prevent an optimal recovery. They are expected to have ongoing issues of adjustment given the nature of the injury, and this aspect of recovery will require ongoing monitoring. Emotional/Behavioral Status of Patient and Family/Support System: Tenuous. Pertinent issues, if appropriate to this patients clinical care, are described in detail above. Maximizing acute care outcome It is recommended that the patient be monitored for emergent behavioral impulsivity as the medical condition evolves. This patients neuropathological challenges may limit their rehabilitation potential going forward, and these challenges will require specialized therapeutic skills to maximize outcome. Additionally, the patients family is experiencing ongoing issues of adjustment given the traumatic nature of the injury, and they [will need / may benefit] from ongoing psychological assistance. Anticipated Problems Ongoing areas of concern could include behavioral impulsivity, lack of insight and judgment, which is expected to improve with time and treatment, provided he moves past this stage of recovery. Presently, the patient is not following commands. His long duration alcohol dependence and tobacco dependence, which has led to global cerebral atrophy, will serve as a double barrier to his recovery from this injury. Treatment Plan This clinician will continue to follow with you throughout the course of this patients rehabilitation treatment, and I will be available to meet with the patients family/support system to facilitate their understanding and the ongoing care of their family member. The goals of neuropsychological intervention shall be both educational and supportive to the family/support system as is deemed clinically appropriate. [facility] Level: III:Localized response-total assist Diagnosis: (1) Major neurocognitive disorder as late effect of traumatic brain injury with behavioral disturbance Status: Acute (2) Alcohol dependence Status: Acute Progress Note Narrative Ongoing follow-up of patient seen during trauma rounds. This patient has made no demonstrable neurobehavioral improvements over the past 24 hours, and he remains at a [place] III. I will continue to follow with you. Kermit Hughes PhD Nov 04, 2016 11:33 am
[2016-11-04] MEDS: ENOXAPARIN SODIUM 40 MG/0.4 ML SYRINGE SQ SCH (12:52)
--- NOTE | 2016-11-04 13:39 | HHI.HCPN ---
Reason for visit a. To assist with evaluation and management of symptoms including: encephalopathy; pain, dyspnea b. To assist medical decision maker(s) with: better understanding of current medical conditions; weighing benefits/burdens of medical treatment options; making medical treatment decisions. . (Татьяна Hauser) Subjective/Interval History Patient seen and assessed in room 1317. Trach to CPAP, FiO2 40%, PEEP 5, pressure support 10. Chest x-ray this morning showing nonspecific patchy right lung base opacity. No noted neurological changes in the past 24 hours. He arouses to verbal and light tactile stimuli. Patient did not follow commands during my exam, nor did I observe any spontaneous movement of extremities. Follow-up EEG on 11/03/16 has significantly improved in comparison to prior reports. No epileptiform features were present. Patient remains on Valproate and Keppra for seizure management. Patient developed a fever overnight. MAXIMUM TEMPERATURE 100.6. WBC trending downward, now 13.4. Cultures remain negative to date-no new cultures pending PEG tube site C/D/I. Patient tolerating Jevity 1.5 at 65ml/hour via PEG tube. . Family/friend interactions Spoke with patient's sister "Manuela"privately, and we later spoke again at the patient's bedside. Also present patient's fianc and best friend. An update was provided on the patient's clinical condition. . (Татьяна Hauser) Advance Directives Living Will: Never completed Health Care Surrogate: Never completed Durable Power of Devil Tender: Never completed (Татьяна Hauser) Advance Directive Specifics Date completed: Advanced directives were never completed. . Health Care Surrogate(s): There is no written designation of a health care surrogate. . Documented care wishes: No written documentation of health care preferences/goals/wishes . (Татьяна Hauser) Objective Vital Signs Date Time Temp Pulse Resp B/P Pulse Ox O2 Delivery O2 Flow Rate FiO2 11/04/16 12:00 99.3 87 25 115/62 96 11/04/16 12:00 87 11/04/16 11:17 98 T-piece 5.00 40 11/04/16 08:10 40 11/04/16 08:09 100 40 11/04/16 08:09 40 11/04/16 08:00 100.0 80 20 112/64 98 11/04/16 08:00 87 11/04/16 06:00 99 11/04/16 04:09 97 40 11/04/16 04:00 50 11/04/16 04:00 100.6 102 26 110/59 97 11/04/16 04:00 99 11/04/16 02:09 99 40 11/04/16 02:00 50 11/04/16 02:00 101 11/04/16 02:00 96 Mechanical Ventilator 40 Bi-Pap 11/04/16 00:48 96 50 11/04/16 00:00 98 11/04/16 00:00 98.9 101 33 118/63 97 11/03/16 22:00 103 11/03/16 22:00 96 Mechanical Ventilator 40 11/03/16 21:54 97 40 11/03/16 21:00 40 11/03/16 20:00 96 11/03/16 20:00 99.4 96 33 139/79 97 11/03/16 19:37 96 T-piece 6.00 40 11/03/16 19:00 96 T-Piece 35 11/03/16 18:00 98 11/03/16 16:00 98.4 89 25 111/65 97 11/03/16 16:00 89 11/03/16 16:00 40 11/03/16 14:00 92 Intake & Output 11/04/16 11/04/16 07:00 19:00 Intake Total 1302 ml Output Total 1600 ml 0 ml Balance -298 ml 0 ml IV Total 193 ml Tube Feeding 1009 ml Other 100 ml Output Urine Total 1600 ml Tube Feeding Residual Discard 0 ml # Bowel Movements 0 . Physical Exam CONSTITUTIONAL/GENERAL: This is an adequately nourished patient status post trach/PEG tube placement, in no acute distress TUBES/LINES/DRAINS: Tracheostomy; Gann catheter; PIV x 2, SCDs, PEG, fecal tube SKIN: Right craniotomy surgical incision healing. Generalized edema. HEAD: S/p craniotomy, right skull flap is soft. EYES: PERRLA No scleral icterus. No injection or drainage. Fundi not examined. ENT: Nose without bleeding or purulent drainage. NECK: Trachea midline. Tracheostomy patent, site without S/S infection [place]: [place] [id number]. No murmurs, gallops, or rubs. RESPIRATORY/CHEST: Tracheostomy to CPAP. Bilateral breath sounds are diminished. GASTROINTESTINAL: Abdomen rounded. BS active x 4. Flex seal in place. Tolerating tube feedings, PEG tube site appears healthy. GENITOURINARY: Without palpable bladder distension. Gann catheter in place. MUSCULOSKELETAL: Extremities without clubbing, cyanosis. No mottling or clubbing. Generalized edema noted, +1 edema in feet bilaterally. NEUROLOGICAL: Patient is awake, tracking with eyes. Does not consistently follow directions, no spontaneous movement observed. PSYCHIATRIC: Does not appear to be experiencing anxiety/agitation. . . (Татьяна Hauser) Diagnostic Tests Laboratory Laboratory Tests Test 11/02/16 11/03/16 11/04/16 10:06 03:35 03:55 White Blood Count 19.5 TH/MM3 13.4 TH/MM3 (4.0-11.0) (4.0-11.0) Red Blood Count 2.88 MIL/MM3 2.77 MIL/MM3 (4.50-5.90) (4.50-5.90) Hemoglobin 9.1 GM/DL 8.7 GM/DL (13.0-17.0) (13.0-17.0) Hematocrit 27.4 % 26.3 % (39.0-51.0) (39.0-51.0) Mean Corpuscular Volume 95.4 FL 95.0 FL (80.0-100.0) (80.0-100.0) Mean Corpuscular Hemoglobin 31.7 PG 31.6 PG (27.0-34.0) (27.0-34.0) Mean Corpuscular Hemoglobin 33.2 % 33.3 % Concent (32.0-36.0) (32.0-36.0) Red Cell Distribution Width 13.7 % 13.7 % (11.6-17.2) (11.6-17.2) Platelet Count 454 TH/MM3 463 TH/MM3 (150-450) (150-450) Mean Platelet Volume 8.0 FL 8.2 FL (7.0-11.0) (7.0-11.0) Neutrophils (%) (Auto) 81.7 % (16.0-70.0) Lymphocytes (%) (Auto) 6.6 % (9.0-44.0) Monocytes (%) (Auto) 9.3 % (0.0-8.0) Eosinophils (%) (Auto) 2.1 % (0.0-4.0) Basophils (%) (Auto) 0.3 % (0.0-2.0) Neutrophils # (Auto) 16.0 TH/MM3 (1.8-7.7) Lymphocytes # (Auto) 1.3 TH/MM3 (1.0-4.8) Monocytes # (Auto) 1.8 TH/MM3 (0-0.9) Eosinophils # (Auto) 0.4 TH/MM3 (0-0.4) Basophils # (Auto) 0.1 TH/MM3 (0-0.2) CBC Comment DIFF FINAL Differential Comment Sodium Level 141 MEQ/L 143 MEQ/L (136-145) (136-145) Potassium Level 4.0 MEQ/L 4.1 MEQ/L (3.5-5.1) (3.5-5.1) Chloride Level 103 MEQ/L 104 MEQ/L (98-107) (98-107) Carbon Dioxide Level 31.1 MEQ/L 31.1 MEQ/L (21.0-32.0) (21.0-32.0) Anion Gap 7 MEQ/L (5-15) 8 MEQ/L (5-15) Blood Urea Nitrogen 16 MG/DL (7-18) 18 MG/DL (7-18) Creatinine 0.73 MG/DL 0.67 MG/DL (0.60-1.30) (0.60-1.30) Estimat Glomerular Filtration 111 ML/MIN 122 ML/MIN Rate (>89) (>89) Random Glucose 136 MG/DL 121 MG/DL (74-106) (74-106) Calcium Level 8.4 MG/DL 8.3 MG/DL (8.5-10.1) (8.5-10.1) Magnesium Level 2.1 MG/DL 2.1 MG/DL (1.5-2.5) (1.5-2.5) Total Bilirubin 0.2 MG/DL (0.2-1.0) Aspartate Amino Transf 51 U/L (15-37) (AST/SGOT) Alanine Aminotransferase 61 U/L (12-78) (ALT/SGPT) Alkaline Phosphatase 225 U/L (45-117) Total Protein 7.1 GM/DL (6.4-8.2) Albumin 1.6 GM/DL (3.4-5.0) Valproic Acid (Depakene) Level 29 MCG/ML 33 MCG/ML (50-100) (50-100) Levetiracetam (Keppra) Level 44.1 mcg/mL (12.0 - 46.0) . (Татьяна Hauser) Result Diagram: 11/04/16 0355 11/04/16 0355 Imaging Last 72 hours Impressions Chest X-Ray 11/04/16 0600 Signed Impressions: Service Date/Time: October 04:50 - CONCLUSION: Patchy right lung base opacity nonspecific. Jules Chisholm MD Chest X-Ray 11/02/16 0600 Signed Impressions: Service Date/Time: Wednesday, November 02, 2016 03:32 - CONCLUSION: No significant interval change in bilateral lower lung zone opacity. Jules Chisholm MD . Procedures * [place] hole with ICP monitor placed * Right craniectomy * Art line placement * Intubation/mechanical ventilation * Central line placement. * Tracheostomy * Peg tube . (Татьяна Hauser) Assessment and Plan Disease Oriented Problem List: (1) Traumatic brain injury (2) SAH (subarachnoid hemorrhage) (3) Subdural hemorrhage following injury (4) Fracture of occipital bone of skull with loss of consciousness (5) Encephalopathy acute (6) Alcohol dependence Comment: Long history of 12-15 drinks per day. . (7) Major neurocognitive disorder as late effect of traumatic brain injury with behavioral disturbance (8) Seizure (9) Pneumonia Comment: Probable aspiration. Blood in vomitus were in airway immediately after fall. . (10) Hepatitis C antibody positive in blood (11) Rectal bleeding Comment: Has had years of abdominal pain with intermittent rectal bleeding. Has avoided recommended work-up due to lack on insurance, lack of funds, and fear of results (per shasta). . Symptom Scale: (1) Pain 0-10 Scale: Unable to quantify Comment: Per review of notes: Patient had history of several pain syndromes. He complained of abdominal pain for years with occasional rectal bleeding. He also complained of right ankle pain where he had surgery and achiness in multiple joints. He would use BC powders several times a day and occasionally hydrocodone. Other current sources of pain might include prolonged bedbound status, post op wound/head pain, discomfort from trach/gann/OG/vascular access lines. Orders are in place for PRN oxycodone at this time. These appear to be adequate, no requirements in the past 24 hours. No further recommendations at this time. . (2) Dyspnea Comment: Tracheostomy to CPAP, FiO2 40%, PEEP 5, pressure support 10. Will continue to wean to T-piece. Follow-up chest x-ray this morning 11/04/16 showing nonspecific patchy right lung base opacity. . (3) Encephalopathy 0-10 Scale: Unable to quantify Comment: This has been multi-factorial and has involved the brain injury, alcohol withdrawal, infection, seizure, etc. Current encephalopathy now mostly due to brain injury, persists off sedation. No noted neurological changes in the past 24 hours. He arouses to verbal and light tactile stimuli. Patient did not follow commands during my exam, nor did I observe any spontaneous movement of extremities. Follow-up EEG on 11/03/16 has significantly improved in comparison to prior reports. No epileptiform features were present. Patient remains on Valproate and Keppra for seizure management. Pertinent Non-Medical Issues Psychosocial: Social support consists of amye, brother, sister and friend - - Patricio Oleary. Spiritual: Confucianism background. Druze and spirituality have not played an important role in his life. Shasta appreciates union steward visits. Legal: No advance directives. Without a designated health care surrogate, decision-making appears to fall to the majority of his siblings. Ethical issues impacting care: Patient is incapacitated to make his own health care decisions. It is unclear if/when he will regain capacity. . Important Contacts * Brandy Workman (spouse) [phone] or [phone] * Amanda "Manuela"reynold (sister) - heatl care proxy: * Perez Schroeder" (brother) [phone] * Amanda "Jamila" Ubaldo (niece) [phone] . 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 It is unclear if he had some sort of event causing the fall (he had vomitus and blood in his airway at time of fall) or merely fell. His injuries include occipital bone fracture, SDH, SAH. Complications include EtOH withdrawal, aspiration pneumonia. He has had high ICPs and ultimately underwent right sided craniectomy for decompression. He has had seizure activity. There has been little evidence so far of meaningful neurological recovery. Neurosurgery feels there continues to be a reasonable chance of meaningful neurologic recovery (though it will take a lot of time) and is recommending ongoing aggressive care. . Code Status: Full Code Plan == Code Status: FULL CODE == Decision making: Mr. Nixon is incapacitated to make his own health care decisions and it is unclear if/when he will regain capacity. Patient is not legally , has no children, and the parents who adopted him are . [place], decision making would fall to the patient's adoptive siblings -- Amanda and Demarco. Demarco has agreed to defer decision making to Amanda so AMANDA IS THE OFFICIAL PROXY DECISION MAKER per my phone conversation with Demarco on 10/26/16 at 13:25. The patient's fiancee -- Brandy Workman -- has no decision making authority, but the siblings are including her in the conversations. == Goals of medical treatment: The patient's family remains cautiously optimistic, hopeful the patient will have continued neurological recovery. Goals remain aggressive. == Family has requested to speak with neurosurgery to discuss what level of neurological recovery neurosurgery anticipates in this patient and in what timeframe recovery may occur. Viky BRAMBILA is aware of family request. == Status post tracheostomy on 10/28/16 and PEG tube placement on 10/29/16. == Encephalopathy: This has been multi-factorial and has involved the brain injury, alcohol withdrawal, infection, seizure, etc. Current encephalopathy now mostly due to brain injury, persists off sedation. No noted neurological changes in the past 24 hours. He arouses to verbal and light tactile stimuli. Patient did not follow commands during my exam, nor did I observe any spontaneous movement of extremities. Follow-up EEG on 11/03/16 has significantly improved in comparison to prior reports. No epileptiform features were present. Patient remains on Valproate and Keppra for seizure management. [place] III. == Pain: Patient had history of several pain syndromes. He complained of abdominal pain for years with occasional rectal bleeding. He also complained of right ankle pain where he had surgery and achiness in multiple joints. He would use BC powders several times a day and occasionally hydrocodone. Other current sources of pain might include prolonged bedbound status, post op wound/ head pain, discomfort from trach/gann/OG/vascular access lines. Orders are in place for PRN oxycodone at this time. These appear to be adequate, no requirements the past 24 hours No further recommendations at this time. == Dyspnea: Tracheostomy to CPAP, FiO2 40%, PEEP 5, pressure support 10. Will continue to wean to T-piece. Follow-up chest x-ray this morning 11/04/16 showing nonspecific patchy right lung base opacity. == Palliative care will continue to follow to assist with symptom management and to further clarify goals of medical treatment as the clinical course evolves. . (Татьяна Hauser) Attestation To help prompt me to consider important information that might be impacting today's encounter and assessment, information from prior notes written by myself or my colleagues may have been "brought forward" into today's note. My signature on this note, however, is an attestation that I personally performed the exam, history, and/or decision-making noted today, and, unless otherwise indicated, the interactions with patient, family, and staff as well as the review of records all occurred today. I also attest that the listed assessment and stated plan reflect my best clinical judgment today based on the combination of historical information, prior notes, and today's exam/ interactions. When time spent is documented, it refers only to time spent today by the signer, or if indicated, combined time spent today by collaborating physician/nurse practitioner. . (Татьяна Hauser) Collaborating MD Comments Chart reviewed. Cased discussed with palliative care SELF DEFENSE INSTRUCTOR. Above SELF DEFENSE INSTRUCTOR note reviewed and I concur. . (Hayden Oviedo MD) Татьяна Hauser Nov 04, 2016 13:39 Hayden Oviedo MD January 17, 2017 13:13
--- NOTE | 2016-11-04 15:48 | HHI.CCPN ---
Subjective Brief History Elderly male who was brought in as a trauma alert after he fell 10 feet from a ladder. GCS 6 initially at the scene subsequently improved to 11 on arrival in the ER. Patient was evaluated by trauma team and subsequently underwent imaging studies and transferred to the ICU. Imaging studies revealed an occipital skull fracture, subdural and subarachnoid blood. Patient was awake and alert at the time of evaluation and following commands and moving all 4 extremities. He could not hear and had some speech difficulty at the time of my evaluation with difficulty in communication though was following commands appropriately. C spine cleared by Neurosurgery at the time of my evaluation. Patient developed worsening agitation despite Precedex last evening. Since then patient had to be intubated ventilated and is currently on propofol fentanyl and Versed drips to keep him down When these are discontinued or less and patient starts biting on the to and becomes restless moves all [address] scan of the head reveals worsening subdural and subarachnoid hemorrhage and the midline shift of about 8 mm 24 Hour Review/Hospital Course Patient has worsened in last 24 hours Repeat CAT scan reveals worsening subdural bleeding over the right parieto- occipital area and [id number] shift of about 8 mm Patient is elderly and a heavy drinker and therefore has atrophy of the brain so there is some more space that allows for compartment pressure IE ICP to remain low We will discuss with neurosurgery about placing ICP monitor or even draining subdural hematoma at this time. Patient remains hyperventilated and on hypertonic saline nonetheless will require bolt placement to assess for ICP and the effectiveness of the therapy 10/13/2016 Patient neurologically unchanged Repeat CAT scan shows some decrease in subdural hematoma and slight decrease in shift yet still severe brain injury At the family's request a second opinion neurosurgery consult was placed and second neurosurgeon has evaluated the patient She will have a long-term recovery here and have discussed this at length with the family Patient may need tracheostomy and PEG tube placement as the part of the appropriate treatment 10/14/2016 Patient with a severe brain injury and subdural hematoma and intraparenchymal hemorrhage Underwent yesterday ventriculostomy placement ICP is within physiologic range at this time and the subdural hematoma size has somewhat decreased There is no change in the neurologic status over the last 24 hours 10/17/16 No change in neurologic status Patient withdraws to pain but does not open eyes or communicates in anyway All sedation has been removed and ventilatory settings been gradually decreased in order to allow for the patient to berry picker his respirations 10/22/16 Patient's neurologic exam remains unchanged. Hypertonic saline was held for profound hypernatremia. EEG showed complete moderate encephalopathy. He will require tracheostomy and gastrostomy tube placement once stable. There was 1 episode of mucous plugging which resolved with aggressive suctioning. 10/23/16 Plan was for tracheostomy today, patient however has elevated ICPs into the 30s We will defer tracheostomy until patient is stable 10/24/16 ICP is improved following administration of neostigmine and a large bowel movement He is likely ready for tracheostomy now, as long as his ICPs remain low Palliative care consult placed for tomorrow, will await input from palliative care and family prior to tracheostomy and feeding tube placement Prognosis at this point remains grim for meaningful recovery 10/25/16 Patient with severe brain injury not showing any signs of neurologic recovery and last few days ICPs remain low apparently throughout the weekend and ventriculostomy has been removed by Dr. Cruz Palliative care consult is greatly appreciated and it helps us tremendously and decision-making and communication as far as this patient's further care is concerned At this point patient's friends appear to be thinking that he is a fighter and according to Dr. Cruz he has chance of meaningful recovery Therefore we will proceed with tracheostomy and PEG placement in next day or 2 10/26/16 No change in current status No neurologic improvement Able to wean the ventilator gradually however due to inability to protect airway patient will need tracheostomy and PEG placement We'll proceed with tracheostomy tomorrow 10/27/16 Patient with the significant head injury remains on the ventilator no change in neurologic status Weaning at this point is inhibited by the fact that patient cannot protect upper airway and due to the low Pawel Coma Scale Patient has undergone tracheostomy today and will have a PEG placed Copious secretions At this point we'll be able to wean as tolerated considering the presence of tracheostomy. 10/29/2016 PTD: 18 Pt is off all sedation. He is still not arousing. Questionable response to painful stimuli. The family will be meeting today with palliative care to discuss goals of care. 10/30/2016 PTD: 19 Pt now opens his eyes, slightly, but does not follow commands. Pt remains off sedation. Plan for weaning further from the vent. TF will resume 24 hrs post PEG placement as per protocol. 10/31/2016 PTD: 20 Patient on CPAP this morning. Originally respiratory rate equals 30, however proposed pain medication administration - he is now breathing comfortably without distress on CPAP. According to nurses, patient was following commands last night. He would give the "thumbs-up" on his right hand, Wiggle his toes on the right side, and smile. This morning he is comfortable, but lethargic post pain medication administration. 11/01/2016 PTD: 21 Attempt to progress patient from CPAP to T piece. Once patient can be maintained on T-piece he can transferred to the floor. Case management is working diligently on placement. 11/02/2016 PTD: 22 Patient completed CPAP overnight, and is currently on a trach collar. 11/03/2016 PTD: 23 No changes noted at time. Patient remains on CPAP without incident. Working on placement. 11/04/2016 PTD: 24 Patient had slight difficulty overnight, and needed to return to ventilator settings. Now on CPAP and tolerating well. Awaiting bed at [facility] so patient came transfer for computer terminal operator management and care. (Osiris Pittman) Remarks seen and examined with SLITTER SERVICE AND SETTER-agree with assessment and plan (Aisha Berkowitz MD) Objective Vital Signs Date Time Temp Pulse Resp B/P Pulse Ox O2 Delivery O2 Flow Rate FiO2 11/04/16 12:00 99.3 87 25 115/62 96 11/04/16 11:17 T-piece 5.00 40 Intake and Output 11/03/16 11/03/16 11/04/16 08:00 16:00 00:00 Intake Total 1192 ml 917 ml 640 ml Output Total 2400 ml 750 ml 1000 ml Balance -1208 ml 167 ml -360 ml (Osiris Pittman) Result Diagram: 11/14/167 11/14/16 0447 Imaging Last 24 hours Impressions Chest X-Ray 11/04/16 0600 Signed Impressions: Service Date/Time: October 04:50 - CONCLUSION: Patchy right lung base opacity nonspecific. Jules Chisholm MD Objective Remarks GENERAL: This is a 56 year old male mechanically ventilated. SKIN: Warm and dry. Generalized edema noted. HEAD: Atraumatic. Normocephalic. EYES: PERRLA ENT: No nasal bleeding or discharge. Mucous membranes pink and moist. NECK: Trach. Trachea midline. No JVD. CARDIOVASCULAR: Regular rate and rhythm. CM shows sinus tach. HR = 80-87 RESPIRATORY: Vent - CPAP. No accessory muscle use. Clear but decreased to auscultation. Breath sounds equal bilaterally. GASTROINTESTINAL: Abdomen soft, non-tender, nondistended. BS + x [address] seal in [address]. Estrella catheter in place to bedside drainage bag with clear yellow urine. MUSCULOSKELETAL: Extremities without cyanosis, or edema. No obvious deformities. + peripheral pulses. NEUROLOGICAL: Mechanically ventilated. Patient opens eyes slightly. Pt does not follow commands. 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 He landed on his head. GCS 3 at the scene, and bystanders performed CPR. He has had a lengthy stay in the ICU requiring mechanical ventilation. He has required a trach, and a PEG. Patient does not have insurance, therefore final discharge plans have been difficult to arrange. PMHx: ETOH (12-15 beers daily) drinks beer with morning coffee, 2 PPD smoker, Hep C INJURIES: SAH SDH Large occipital skull fx Aspiration Assessment and plan by systems: NEUROLOGICAL: Pt is off all sedation. Provide analgesia for comfort and pain - oxycodone via tube Seizure prophylaxis - Keppra, and Cerebyx. Valproic acid ordered by neurology. HOB elevated 30 degrees Hyponatremia status - NA - 143 + peripheral pulses x 4 extremities. CARDIOVASCULAR: HR = 80-87. Sinus rhythm. BP = 115/62 Continually monitor for hemodynamic instability (shock and hypotension). BP meds - hydralazine, propranolol, clonidine. Diuretics - Lasix 40 daily with 25 mEq potassium daily Follow CMP Electrolyte protocol in place RESPIRATORY: Patient ran into difficulty last night - appeared to get tired on T piece. He was returned to previous settings to rest overnight. Patient now on TPN today, and tolerating well. O2 Sats - Monitor for hypoxemia Edema status - generalized edema Lung sounds - CTA but decreased throughout. Pulmonary toilet = L&S. Bronchodilators - Breathing treatments duonebs. Chest X-Ray results - persistent left lower lobe consolidation. Sputum culture - 10/24: Moderate growth of respiratory eric. Antibiotics - all are discontinued at this time. VAP protocol in place Labs tomorrow Chest X-Ray tomorrow GASTROINTESTINAL: Diet: Jevity at 60 cc/hr Bowel sounds - + x 4 quads. Bowel regimen: Cynthia-Colace, M OM. Lactulose 3 times a day. MiraLAX. Bisacody [place] . LBM: 11/[address] with brown liquid stool. RENAL / URINARY: I&O - -735 BUN / creat 18 / 0.[address] to bedside drainage bag Urine culture - 10/24: No growth in 48 hours ENDOCRINE: BGM = 121 via AM labs SSI HEMATOLOGY: H&H 9.1 / 27.1 Continue to monitor for signs and symptoms of bleeding. Evaluate need for IVC filter. Transfuse for < 7.0 US Lower extremity study 10/27: No DVT in bilateral legs Monitor patient for any bleeding complications. INFECTIOUS DISEASE: Follow CBC WBC - 13.4 Fevers - low grade Administer antipyretics for temp as needed. Blood cultures 10/24: Negative Urine 10/24 negative Sputum cultures 10/24 negative IV antibiotics : Discontinued Monitor pneumonia evolution with repeat chest X-Rays as needed. Maintain vigorous aseptic care of central line to avoid blood stream infections. Consider a consult to ID for further management. PROPHYLAXIS: VAP protocol in place GI : Protonix IV DVT - Mechanical VTE with SCDs. Chemical management with Lovenox sq SKIN: Warm, dry. ACTIVITY: Status - BR PT and OT ordered. CASE MANAGEMENT: Consulted for assist with DC planning. Placement - disposition - TBD. Attempting to transfer patient to the [facility] for continued management and long-term care care. EMOTIONAL SUPPORT: Provided to patient and family. Plan of care discussed. Questions answered to the best of my knowledge. Palliative care has been consulted. Nursing care can be de-escalated to 1:4. This patient is currently critically ill and injured, with traumatic brain injury with respiratory failure due to his injuries. He is being managed in the ICU. The trauma team will round, assess and evaluate the patient on a day to day basis. (Osiris Pittman) Problem Qualifiers (1) Fracture of occipital bone of skull with loss of consciousness: Qualified Code: S02.119A - Fracture of occipital bone of skull with loss of consciousness, closed, initial encounter (2) Subdural hemorrhage following injury: Qualified Code: S06.5X1A - Traumatic subdural hemorrhage with loss of consciousness of 30 minutes or less, initial encounter (3) Traumatic brain injury: Osiris Pittman Nov 04, 2016 15:48 Aisha Berkowitz MD Nov 16, 2016 17:07
[2016-11-04] MEDS: THIAMINE IV SCH ×2 (21:27)
[2016-11-04] MEDS: DEXTROSE 5% IV SCH ×2 (21:27)
[2016-11-04] MEDS: WATER IV SCH ×2 (21:27)
[2016-11-05] VITALS (15 sets, daily range): BP systolic 135–164; BP diastolic 62–88; PULSE 86–113; RESP 23–29; TEMP 97.7–99.7; O2SAT 94–99
[2016-11-05] MEDS: PROPRANOLOL HCL 20 MG TAB PO SCH ×5 (00:49→23:44)
[2016-11-05] MEDS: CHLORHEXIDINE GLUCONATE 2 % 1 PACK (2 CLOTHS) TOP SCH (04:00)
[2016-11-05] MEDS: cloNIDine HCL 0.3 MG TAB PO SCH ×3 (05:38→21:49)
[2016-11-05] MEDS: CHLORHEXIDINE 0.12% (ORAL KIT) 15 ML CUP MT SCH ×2 (08:00→20:48)
[2016-11-05] MEDS: DOCUSATE SODIUM 100 MG CAP PO SCH ×2 (09:00→20:48)
[2016-11-05] MEDS: SENNOSIDES SYRUP 8.8 MG/5 ML CUP PO/NG SCH ×2 (09:00→20:48)
[2016-11-05] MEDS: LACTULOSE SYRUP 20 GM/30 ML CUP PO SCH ×3 (09:00→16:30)
[2016-11-05] MEDS: MAGNESIUM HYDROXIDE SUSP 30 ML CUP PO SCH (09:00)
[2016-11-05] MEDS: POLYETHYLENE GLYCOL 17 GM PKG PO SCH ×2 (09:00→20:48)
[2016-11-05] MEDS: POTASSIUM CHLORIDE 25 MEQ EFFERVESCENT TAB TUBE SCH (09:21)
[2016-11-05] MEDS: FOLIC ACID 1 MG TAB PO SCH (09:21)
[2016-11-05] MEDS: levETIRAcetam 500 MG/5 ML UDC TUBE SCH ×2 (09:21→20:49)
[2016-11-05] MEDS: FUROSEMIDE 40 MG/4 ML VIAL IV PUSH SCH (09:21)
[2016-11-05] MEDS: MULTIVITAMIN TAB PO SCH (09:21)
[2016-11-05] MEDS: PANTOPRAZOLE SODIUM 40 MG VIAL IVP SCH (09:22)
[2016-11-05] MEDS: SODIUM CHLORIDE 0.9% FLUSH 5 ML FLUSH IVF SCH ×2 (09:22→20:48)
[2016-11-05] MEDS: ENOXAPARIN SODIUM 40 MG/0.4 ML SYRINGE SQ SCH (11:39)
[2016-11-05] MEDS: VALPROATE INJ 1,000 MG in SODIUM CHLORIDE 0.9% INJ 100 ML IV SCH ×2 (11:43→20:48)
--- NOTE | 2016-11-05 12:54 | HHI.PR ---
Neuropsych Emotional Emotional: UnabletoAssess: Emotional, Anxious/Fearful, Depressed/Sad, Hostile/ Resentful, Irritable/Angry/Frustrate, Labile, Constricted/Blunted Behavior Behavior: Unable to Asses: Behavior, Coping/Acceptance, Cooperative w/ Treatment, Motivation, Frustration Tolerance/[place], Impulsive/Agitated, Suicidal/ Homicidal Risk Cognitive Cognitive: Unable to Asses: Cognitive, Attention/Concentration, Confused/ Orientation, Insight/Awareness, Judgement/Problem-Solving, Memory Progress Notes/Response to Tx Contents of Sessions: Interests Time with Patient: 15 minutes Premorbid psychological status Premorbid Cognitive, Emotional and Behavioral Status: Deferred. 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 The patient has no known psychiatric difficulties. However, substance abuse history is significant for alcohol dependence and tobacco dependence. Behavioral Reactions of Patient and Family/Support System: Tenuous. The patients family has a limited understanding of the complexities of this patient 's brain injury, and the lifestyle barriers that prevent an optimal recovery. They are expected to have ongoing issues of adjustment given the nature of the injury, and this aspect of recovery will require ongoing monitoring. Emotional/Behavioral Status of Patient and Family/Support System: Tenuous. Pertinent issues, if appropriate to this patients clinical care, are described in detail above. Maximizing acute care outcome It is recommended that the patient be monitored for emergent behavioral impulsivity as the medical condition evolves. This patients neuropathological challenges may limit their rehabilitation potential going forward, and these challenges will require specialized therapeutic skills to maximize outcome. Additionally, the patients family is experiencing ongoing issues of adjustment given the traumatic nature of the injury, and they [will need / may benefit] from ongoing psychological assistance. Anticipated Problems Ongoing areas of concern could include behavioral impulsivity, lack of insight and judgment, which is expected to improve with time and treatment, provided he moves past this stage of recovery. Presently, the patient is not following commands. His long duration alcohol dependence and tobacco dependence, which has led to global cerebral atrophy, will serve as a double barrier to his recovery from this injury. Treatment Plan This clinician will continue to follow with you throughout the course of this patients rehabilitation treatment, and I will be available to meet with the patients family/support system to facilitate their understanding and the ongoing care of their family member. The goals of neuropsychological intervention shall be both educational and supportive to the family/support system as is deemed clinically appropriate. [facility] Level: III:Localized response-total assist Diagnosis: (1) Major neurocognitive disorder as late effect of traumatic brain injury with behavioral disturbance Status: Acute (2) Alcohol dependence Status: Acute Progress Note Narrative Ongoing follow-up of patient seen during daily trauma rounds. The patient is awake, but in my clinical opinion does not track and he does not follow commands. He remains at a [facility] III. I will continue to follow until he is transferred to a fpc care facility. Kermit Hughes PhD Nov 05, 2016 12:54 pm
--- NOTE | 2016-11-05 14:45 | HHI.PR ---
Review/Management Diagnosis 1. Encephalopathy 2. Occipital skull fracture 3. TBI status fall with bifrontal contusions, right temporal parietal subdural hemorrhage s/p craniotomy, subarachnoid hemorrhage. 4. History of alcohol abuse/alcohol withdrawal. 5. Abnormal EEG, with sharp wave discharges, epileptogenic in nature Plan - Neuro checks q. one hourly. - Keppra 1500mg Q 12h. - Valproate 1gm x2 - Seizure prophylaxis. - CIWA protocol IV folate for alcohol withdrawal. - DVT prophylaxis - GI prophylaxis Diagnosis/Plan: Subjective Subjective Comments No acute events reported Stable,improving neurologic status Keppra level therapeutic at 44.1 Valproate level is subtherapeutic 33 EEG with evidence of slowing and right frontal sharp waves, improved compared to previous readings Active Medications Current Medications Medications (Trade) Dose Ordered Sig/Jony Route Start Time Stop Time Status Last Admin Miscellaneous Information 1 Q361D XX 10/11/16 13:00 10/11/16 13:00 (Chlorhexidine 2% Cloth) Taper DAILY@04 TOP 10/12/16 04:00 10/08/17 03:59 11/04/16 04:00 (Chlorhexidine 2% Cloth) 3 pack UNSCH PRN TOP 10/11/16 13:00 (Apresoline Inj) 10 mg Q2H PRN IV PUSH 10/11/16 13:30 10/28/16 11:33 (Peridex 0.12% Liq) 15 ml BID@08,20 MT 10/12/16 08:00 11/05/16 08:00 (Milk Of Magnesia Liq) 30 ml DAILY PO 10/12/16 10:00 11/02/16 08:46 (Tylenol Supp) 650 mg Q4H PRN MS 10/15/16 12:15 Info 1 UNSCH XX 10/17/16 11:00 (NS Flush) 2 ml UNSCH PRN IVF 10/18/16 11:45 (NS Flush) 2 ml BID IVF 10/18/16 21:00 11/05/16 09:22 (Dulcolax Supp) 10 mg DAILY PRN MS 10/18/16 11:45 10/18/16 14:36 (Colace) 100 mg BID PO 10/18/16 21:00 11/04/16 21:28 (Protonix Inj) 40 mg DAILY IVP 10/19/16 09:00 11/05/16 09:22 (Zofran Inj) 4 mg Q6H PRN IV 10/18/16 11:45 Calcium Gluconate 1 gm 1 gm UNSCH PRN IV 10/18/16 11:45 Potassium Chloride 100 ml @ 50 mls/hr UNSCH PRN IV 10/18/16 11:45 10/25/16 09:35 (Magnesium Sulfate Inj/NS Inj) 108 ml @ 108 mls/hr UNSCH PRN IV 10/18/16 11:45 (Tylenol) 650 mg Q4H PRN PO 10/18/16 11:45 10/31/16 13:37 (Lactulose Liq) 30 ml TID PO 10/21/16 13:00 11/02/16 08:47 (Miralax) 17 gm BID PO 10/21/16 11:00 11/04/16 21:28 (Inderal) 20 mg Q6HR PO 10/22/16 18:00 11/05/16 11:39 (Trandate Inj) 20 mg Q1H PRN IV PUSH 10/22/16 16:45 10/28/16 11:45 Clonidine 0.3 mg 0.3 mg Q8HR PO 10/22/16 16:42 11/05/16 05:38 (Thiamine Inj/ D5W 100 ml Inj) 101 ml @ 100 mls/hr Q24H IV 10/23/16 20:00 11/04/16 21:27 (Folate) 1 mg DAILY PO 10/25/16 09:00 11/05/16 09:21 (Theragran) 1 tab DAILY PO 10/25/16 09:00 11/05/16 09:21 (Senna Liq) 8.8 mg BID PO/NG 10/24/16 21:00 11/04/16 21:30 (Roxicodone Intensol Liq) 5 mg Q4H PRN PO 10/24/16 12:30 (Roxicodone Intensol Liq) 10 mg Q4H PRN PO 10/24/16 12:30 10/31/16 10:17 (Lasix Inj) 40 mg DAILY IV PUSH 10/26/16 09:00 11/05/16 09:21 (K-Lyte Cl Eff) 25 meq DAILY TUBE 10/26/16 09:00 11/05/16 09:21 (Keppra Liq) 1,500 mg Q12HR TUBE 10/27/16 21:00 11/05/16 09:21 Enoxaparin Sodium 40 mg 40 mg Q24H SQ 11/03/16 12:00 11/05/16 11:39 (Depacon Inj/NS Inj) 110 ml @ 105 mls/hr Q12HR IV 11/03/16 21:00 11/05/16 11:43 Allergies Allergies Coded Allergies UNOBTAINABLE (Unverified10/11/16) Review of Systems All other ROS: Unable to obtain Exam I&O / VS 11/04/16 11/04/16 11/05/16 15:00 23:00 07:00 Intake Total 582 ml 510 ml 825 ml Output Total 775 ml 1300 ml 550 ml Balance -193 ml -790 ml 275 ml IV Total 158 ml 36 ml 293 ml Tube Feeding 424 ml 474 ml 532 ml Output Urine Total 775 ml 1300 ml 550 ml Stool Total 0 ml 0 ml Gastric Drainage Total 0 ml Tube Feeding Residual Discard 0 ml 0 ml 0 ml # Bowel Movements 0 Vital Signs Date Time Temp Pulse Resp B/P Pulse Ox O2 Delivery O2 Flow Rate FiO2 11/05/16 14:00 92 11/05/16 12:00 35 11/05/16 12:00 97.7 96 24 138/67 95 11/05/16 12:00 95 11/05/16 10:00 97 11/05/16 08:00 92 11/05/16 08:00 98.4 91 29 147/88 94 11/05/16 08:00 35 11/05/16 07:48 97 T-piece 5.00 40 11/05/16 07:00 96 T-Piece 5.00 35 11/05/16 06:00 113 11/05/16 04:00 111 11/05/16 04:00 98.8 111 26 161/77 95 11/05/16 02:00 100 11/05/16 00:00 99 11/05/16 00:00 99.7 99 23 144/62 96 11/04/16 22:00 99 11/04/16 20:00 92 11/04/16 20:00 99.5 99 26 144/79 97 11/04/16 19:56 96 T-piece 40 11/04/16 19:00 97 T-Piece 5.00 40 11/04/16 16:00 88 11/04/16 16:00 98.5 88 28 109/72 96 Respiratory: Coarse breath sounds Musculoskeletal: ROM (Grossly within normal limits), Other (SCDs and Multi- Podus boots in place) Exam Comments GENERAL: Vented through tracheostomy tube , off sedation NECK: No JVD, no carotid bruit. CHEST: Clear to auscultation bilaterally. No wheezes. CARDIOVASCULAR: Regular rate and rhythm. EXTREMITIES: No edema. No abnormal posturing. NEUROLOGIC: Alert, tracks objects, mumbles a few words, pupils 3mm b/l symmetrical, reacting to light, tracks movements, Plantar's bilateral downgoing. No gaze deviation on examining , unable to assess muscle strength, sensory system or cerebellar function due to patient's condition Objective Radiology Results Last 72 hours Impressions Chest X-Ray 11/04/16 0600 Signed Impressions: Service Date/Time: October 04:50 - CONCLUSION: Patchy right lung base opacity nonspecific. Jules Chisholm MD Ossi,Amparo Lynch MD Nov 05, 2016 14:45
--- NOTE | 2016-11-05 16:04 | HHI.CCPN ---
Subjective Brief History Elderly male who was brought in as a trauma alert after he fell 10 feet from a ladder. GCS 6 initially at the scene subsequently improved to 11 on arrival in the ER. Patient was evaluated by trauma team and subsequently underwent imaging studies and transferred to the ICU. Imaging studies revealed an occipital skull fracture, subdural and subarachnoid blood. Patient was awake and alert at the time of evaluation and following commands and moving all 4 extremities. He could not hear and had some speech difficulty at the time of my evaluation with difficulty in communication though was following commands appropriately. C spine cleared by Neurosurgery at the time of my evaluation. Patient developed worsening agitation despite Precedex last evening. Since then patient had to be intubated ventilated and is currently on propofol fentanyl and Versed drips to keep him down When these are discontinued or less and patient starts biting on the to and becomes restless moves all [address] scan of the head reveals worsening subdural and subarachnoid hemorrhage and the midline shift of about 8 mm 24 Hour Review/Hospital Course Patient has worsened in last 24 hours Repeat CAT scan reveals worsening subdural bleeding over the right parieto- occipital area and [id number] shift of about 8 mm Patient is elderly and a heavy drinker and therefore has atrophy of the brain so there is some more space that allows for compartment pressure IE ICP to remain low We will discuss with neurosurgery about placing ICP monitor or even draining subdural hematoma at this time. Patient remains hyperventilated and on hypertonic saline nonetheless will require bolt placement to assess for ICP and the effectiveness of the therapy 10/13/2016 Patient neurologically unchanged Repeat CAT scan shows some decrease in subdural hematoma and slight decrease in shift yet still severe brain injury At the family's request a second opinion neurosurgery consult was placed and second neurosurgeon has evaluated the patient She will have a long-term recovery here and have discussed this at length with the family Patient may need tracheostomy and PEG tube placement as the part of the appropriate treatment 10/14/2016 Patient with a severe brain injury and subdural hematoma and intraparenchymal hemorrhage Underwent yesterday ventriculostomy placement ICP is within physiologic range at this time and the subdural hematoma size has somewhat decreased There is no change in the neurologic status over the last 24 hours 10/17/16 No change in neurologic status Patient withdraws to pain but does not open eyes or communicates in anyway All sedation has been removed and ventilatory settings been gradually decreased in order to allow 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 Hypertonic saline was held for profound hypernatremia. EEG showed complete moderate encephalopathy. He will require tracheostomy and gastrostomy tube placement once stable. There was 1 episode of mucous plugging which resolved with aggressive suctioning. 10/23/16 Plan was for tracheostomy today, patient however has elevated ICPs into the 30s We will defer tracheostomy until patient is stable 10/24/16 ICP is improved following administration of neostigmine and a large bowel movement He is likely ready for tracheostomy now, as long as his ICPs remain low Palliative care consult placed for tomorrow, will await input from palliative care and family prior to tracheostomy and feeding tube placement Prognosis at this point remains grim for meaningful recovery 10/25/16 Patient with severe brain injury not showing any signs of neurologic recovery and last few days ICPs remain low apparently throughout the weekend and ventriculostomy has been removed by Dr. Cruz Palliative care consult is greatly appreciated and it helps us tremendously and decision-making and communication as far as this patient's further care is concerned At this point patient's friends appear to be thinking that he is a fighter and according to Dr. Cruz he has chance of meaningful recovery Therefore we will proceed with tracheostomy and PEG placement in next day or 2 10/26/16 No change in current status No neurologic improvement Able to wean the ventilator gradually however due to inability to protect airway patient will need tracheostomy and PEG placement We'll proceed with tracheostomy tomorrow 10/27/16 Patient with the significant head injury remains on the ventilator no change in neurologic status Weaning at this point is inhibited by the fact that patient cannot protect upper airway and due to the low Pawel Coma Scale Patient has undergone tracheostomy today and will have a PEG placed Copious secretions At this point we'll be able to wean as tolerated considering the presence of tracheostomy. 10/29/2016 PTD: 18 Pt is off all sedation. He is still not arousing. Questionable response to painful stimuli. The family will be meeting today with palliative care to discuss goals of care. 10/30/2016 PTD: 19 Pt now opens his eyes, slightly, but does not follow commands. Pt remains off sedation. Plan for weaning further from the vent. TF will resume 24 hrs post PEG placement as per protocol. 10/31/2016 PTD: 20 Patient on CPAP this morning. Originally respiratory rate equals 30, however proposed pain medication administration - he is now breathing comfortably without distress on CPAP. According to nurses, patient was following commands last night. He would give the "thumbs-up" on his right hand, Wiggle his toes on the right side, and smile. This morning he is comfortable, but lethargic post pain medication administration. 11/01/2016 PTD: 21 Attempt to progress patient from CPAP to T piece. Once patient can be maintained on T-piece he can transferred to the floor. Case management is working diligently on placement. 11/02/2016 PTD: 22 Patient completed CPAP overnight, and is currently on a trach collar. 11/03/2016 PTD: 23 No changes noted at time. Patient remains on CPAP without incident. Working on placement. 11/04/2016 PTD: 24 Patient had slight difficulty overnight, and needed to return to ventilator settings. Now on CPAP and tolerating well. Awaiting bed at [facility] so patient came transfer for technician terminal and repeater management and care. 11/05/2016 PTD: 25 No further changes. Pt remains stable on T-Piece. (Osiris Pittman ) Objective Vital Signs Date Time Temp Pulse Resp B/P Pulse Ox O2 Delivery O2 Flow Rate FiO2 11/05/16 14:00 92 11/05/16 12:00 35 11/05/16 12:00 97.7 24 138/67 95 11/05/16 07:48 T-piece 5.00 Intake and Output 11/04/16 11/04/16 11/05/16 08:00 16:00 00:00 Intake Total 662 ml 582 ml 510 ml Output Total 600.0 ml 775.0 ml 1300.0 ml Balance 62.0 ml -193.0 ml -790.0 ml (Osiris Pittman) Result Diagram: 11/04/16 0355 11/04/16 0355 Imaging Last Impressions Chest X-Ray 11/04/16 0600 Signed Impressions: Service Date/Time: October 04:50 - CONCLUSION: Patchy right lung base opacity nonspecific. Jules Chisholm MD Lower Extremity Ultrasound 10/27/16 0000 Signed Impressions: Service Date/Time: Thursday, October 27, 2016 10:13 - CONCLUSION: No DVT either lower extremity. 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 MD Head CT 10/23/16 0000 Signed Impressions: Service Date/Time: Sunday, October 23, 2016 11:21 - CONCLUSION: 1. Examination quality is degraded by motion artifact. There is decreased midline shift, currently measuring 3 mm compared to 6 mm on the prior study. 2. There are persistent hemorrhagic contusions in the right frontal lobe but they are less well-visualized today either related to interval improvement or related to motion artifact. Red Arenas MD Chest CT 10/23/16 0000 Signed Impressions: Service Date/Time: Sunday, October 23, 2016 11:24 - CONCLUSION: 1. Airspace consolidation within the left upper lobe. This could represent an infectious process. 2. Small bilateral pleural effusions with associated compressive atelectasis in the lower lobes. Red Arenas MD Abdomen/Pelvis CT 10/23/16 0000 Signed Impressions: Service Date/Time: Sunday, October 23, 2016 11:27 - CONCLUSION: 1. No acute finding is identified within the abdomen or pelvis. 2. Anasarca. 3. Stable 7 mm nodule on the left adrenal gland. Small size favors a benign process but is incompletely characterized on this examination. Red Arenas MD Neck CTA 10/12/16 0000 Signed Impressions: Service Date/Time: Wednesday, October 12, 2016 09:27 - CONCLUSION: Mild atherosclerotic changes in the proximal portions of both internal carotid arteries but no significant stenosis. Dez Petersen MD Head CTA 10/12/16 0000 Signed Impressions: Service Date/Time: Wednesday, October 12, 2016 09:27 - CONCLUSION: No evidence of acute vascular injury Red Hoffman MD Pelvis X-Ray 10/11/16 1213 Signed Impressions: Service Date/Time: Tuesday, October 11, 2016 12:02 - CONCLUSION: Satisfactory trauma pelvis appearance. Red Hoffman MD Cervical Spine CT 10/11/16 1213 Signed Impressions: Service Date/Time: Tuesday, October 11, 2016 12:19 - CONCLUSION: Occipital skull fracture. No evidence of acute traumatic injury in the cervical spine Red Hoffman MD Objective Remarks GENERAL: This is a 56 year old male mechanically ventilated. SKIN: Warm and dry. Generalized edema noted. HEAD: Atraumatic. Normocephalic. EYES: PERRLA ENT: No nasal bleeding or discharge. Mucous membranes pink and moist. NECK: Trach. Trachea midline. No JVD. CARDIOVASCULAR: Regular rate and rhythm. CM shows sinus tach. HR = 91-96 RESPIRATORY: T-piece. No accessory muscle use. Clear but decreased to auscultation. Breath sounds equal bilaterally. GASTROINTESTINAL: Abdomen soft, non-tender, nondistended. BS + x [address] in [address]. Gann catheter in place to bedside drainage bag with clear yellow urine. MUSCULOSKELETAL: Extremities without cyanosis, or edema. No obvious deformities. + peripheral pulses. NEUROLOGICAL: Mechanically ventilated. Patient opens eyes slightly. Pt does not follow commands. 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 He landed on his head. GCS 3 at the scene, and bystanders performed CPR. He has had a lengthy stay in the ICU requiring mechanical ventilation. He has required a trach, and a PEG. Patient does not have insurance, therefore final discharge plans have been difficult to arrange. PMHx: ETOH (12-15 beers daily) drinks beer with morning coffee, 2 PPD smoker, Hep C INJURIES: SAH SDH Large occipital skull fx Aspiration Assessment and plan by systems: NEUROLOGICAL: Pt is off all sedation. Provide analgesia for comfort and pain - oxycodone via tube Seizure prophylaxis - Keppra, and Cerebyx. Valproic acid ordered by neurology. HOB elevated 30 degrees Hyponatremia status - NA - 143 + peripheral pulses x 4 extremities. CARDIOVASCULAR: HR = 91-97. Sinus rhythm. BP = 138/67 Continually monitor for hemodynamic instability (shock and hypotension). BP meds - hydralazine, propranolol, clonidine. Diuretics - Lasix 40 daily with 25 mEq potassium daily Follow CMP Electrolyte protocol in place RESPIRATORY: Patient remains on T-piece. Tolerating well. O2 Sats - Monitor for hypoxemia Edema status - generalized edema Lung sounds - CTA but decreased throughout. Pulmonary toilet = L&S. Bronchodilators - Breathing treatments duonebs. Chest X-Ray results - persistent left lower lobe consolidation. Sputum culture - 10/24: Moderate growth of respiratory eric. Antibiotics - all are discontinued at this time. VAP protocol in place Labs tomorrow Chest X-Ray tomorrow GASTROINTESTINAL: Diet: Jevity at 60 cc/hr Bowel sounds - + x 4 quads. Bowel regimen: Cynthia-Colace, M OM. Lactulose 3 times a day. MiraLAX. Bisacody ID . LBM: 11/[address] with brown liquid stool. RENAL / URINARY: I&O - -708 BUN / creat 18 / 0.[address] to bedside drainage bag Urine culture - 10/24: No growth in 48 hours ENDOCRINE: BGM = 121 via AM labs SSI HEMATOLOGY: H&H 9.1 / 27.1 Continue to monitor for signs and symptoms of bleeding. Evaluate need for IVC filter. Transfuse for < 7.0 US Lower extremity study 10/27: No DVT in bilateral legs Monitor patient for any bleeding complications. INFECTIOUS DISEASE: Follow CBC WBC - 13.4 Fevers - low grade Administer antipyretics for temp as needed. Blood cultures 10/24: Negative Urine 10/24 negative Sputum cultures 10/24 negative IV antibiotics : Discontinued Monitor pneumonia evolution with repeat chest X-Rays as needed. Maintain vigorous aseptic care of central line to avoid blood stream infections. Consider a consult to ID for further management. PROPHYLAXIS: VAP protocol in place GI : Protonix IV DVT - Mechanical VTE with SCDs. Chemical management with Lovenox sq SKIN: Warm, dry. ACTIVITY: Status - BR PT and OT ordered. CASE MANAGEMENT: Consulted for assist with DC planning. Placement - disposition - TBD. Pt is unable to transfer to [facility] at this time. Pt does not have insurance, therefore case management is working to obtain SSI for this patient. EMOTIONAL SUPPORT: Provided to patient. Plan of care discussed. Questions answered to the best of my knowledge. Palliative care has been consulted. Nursing care can be de-escalated to 1:4. This patient is currently critically ill and injured, with traumatic brain injury with respiratory failure due to his injuries. He is being managed in the ICU. The trauma team will round, assess and evaluate the patient on a day to day basis. (Osiris Pittman) Attestation Patient with long history has finally started to wake up and is doing well on trach collar Patient will be transferred to floor this point for further care The exam, history, and the medical decision-making described in the above note were completed with the assistance of the mid-level provider. I reviewed and agree with the findings presented. I attest that I had a [id number] encounter with the patient on the same day, and personally performed and documented my assessment and findings in the medical record. Critical care time 35 minutes. (Sherry Parikh MD) Problem Qualifiers (1) Fracture of occipital bone of skull with loss of consciousness: Qualified Code: S02.119A - Fracture of occipital bone of skull with loss of consciousness, closed, initial encounter (2) Subdural hemorrhage following injury: Qualified Code: S06.5X1A - Traumatic subdural hemorrhage with loss of consciousness of 30 minutes or less, initial encounter (3) Traumatic brain injury: Osiris Pittman Nov 05, 2016 16:04 Sherry Parikh MD Nov 11, 2016 17:18
[2016-11-05] MEDS: DEXTROSE 5% IV SCH ×2 (20:47)
[2016-11-05] MEDS: WATER IV SCH ×2 (20:47)
[2016-11-05] MEDS: THIAMINE IV SCH ×2 (20:47)
[2016-11-06] VITALS (14 sets, daily range): BP systolic 102–149; BP diastolic 59–78; PULSE 80–110; RESP 15–29; TEMP 98.2–102.2; O2SAT 93–97
[2016-11-06] MEDS: CHLORHEXIDINE GLUCONATE 2 % 1 PACK (2 CLOTHS) TOP SCH (04:24)
[2016-11-06] MEDS: PROPRANOLOL HCL 20 MG TAB PO SCH ×3 (05:10→17:10)
[2016-11-06] MEDS: cloNIDine HCL 0.3 MG TAB PO SCH ×3 (05:10→22:00)
[2016-11-06 06:38] LABS: BICARBONATE 29.4 MEQ/L (21.0-32.0); MAGNESIUM 2.1 MG/DL (1.5-2.5); POTASSIUM 4.1 MEQ/L (3.5-5.1)
[2016-11-06 07:19] LABS: HEMATOCRIT 32.9 % (39.0-51.0); MEAN CELL VOLUME 100.6 FL (80.0-100.0); MEAN CORPUSCULAR HGB CONC 31.8 % (32.0-36.0); PLATELET COUNT 482 TH/MM3 (150-450); RED BLOOD COUNT 3.27 MIL/MM3 (4.50-5.90); RED CELL DISTRIBUTION WIDTH 14.4 % (11.6-17.2); REVIEW FLAG FINAL
[2016-11-06] MEDS: CHLORHEXIDINE 0.12% (ORAL KIT) 15 ML CUP MT SCH ×2 (08:00→20:27)
[2016-11-06] MEDS: POLYETHYLENE GLYCOL 17 GM PKG PO SCH ×2 (08:44→20:27)
[2016-11-06] MEDS: MAGNESIUM HYDROXIDE SUSP 30 ML CUP PO SCH (08:44)
[2016-11-06] MEDS: LACTULOSE SYRUP 20 GM/30 ML CUP PO SCH ×3 (08:44→17:10)
[2016-11-06] MEDS: MULTIVITAMIN TAB PO SCH (08:55)
[2016-11-06] MEDS: FOLIC ACID 1 MG TAB PO SCH (08:55)
[2016-11-06] MEDS: SENNOSIDES SYRUP 8.8 MG/5 ML CUP PO/NG SCH ×2 (08:56→20:27)
[2016-11-06] MEDS: DOCUSATE SODIUM 100 MG CAP PO SCH ×2 (08:56→20:27)
[2016-11-06] MEDS: POTASSIUM CHLORIDE 25 MEQ EFFERVESCENT TAB TUBE SCH (08:56)
[2016-11-06] MEDS: VALPROATE INJ 1,000 MG in SODIUM CHLORIDE 0.9% INJ 100 ML IV SCH ×2 (08:56→20:27)
[2016-11-06] MEDS: levETIRAcetam 500 MG/5 ML UDC TUBE SCH ×2 (08:56→20:26)
[2016-11-06] MEDS: FUROSEMIDE 40 MG/4 ML VIAL IV PUSH SCH (08:56)
[2016-11-06] MEDS: SODIUM CHLORIDE 0.9% FLUSH 5 ML FLUSH IVF SCH ×2 (08:57→20:27)
[2016-11-06] MEDS: PANTOPRAZOLE SODIUM 40 MG VIAL IVP SCH (08:57)
[2016-11-06] MEDS: oxyCODONE HCL ORAL CONC 20 MG/ML SYRINGE PO PRN (10:23)
[2016-11-06] MEDS: ENOXAPARIN SODIUM 40 MG/0.4 ML SYRINGE SQ SCH (12:00)
--- NOTE | 2016-11-06 17:06 | HHI.CCPN ---
Subjective Brief History Elderly male who was brought in as a trauma alert after he fell 10 feet from a ladder. GCS 6 initially at the scene subsequently improved to 11 on arrival in the ER. Patient was evaluated by trauma team and subsequently underwent imaging studies and transferred to the ICU. Imaging studies revealed an occipital skull fracture, subdural and subarachnoid blood. Patient was awake and alert at the time of evaluation and following commands and moving all 4 extremities. He could not hear and had some speech difficulty at the time of my evaluation with difficulty in communication though was following commands appropriately. C spine cleared by Neurosurgery at the time of my evaluation. Patient developed worsening agitation despite Precedex last evening. Since then patient had to be intubated ventilated and is currently on propofol fentanyl and Versed drips to keep him down When these are discontinued or less and patient starts biting on the to and becomes restless moves all [address] scan of the head reveals worsening subdural and subarachnoid hemorrhage and the midline shift of about 8 mm 24 Hour Review/Hospital Course Patient has worsened in last 24 hours Repeat CAT scan reveals worsening subdural bleeding over the right parieto- occipital area and aethy-ge-hweh shift of about 8 mm Patient is elderly and a heavy drinker and therefore has atrophy of the brain so there is some more space that allows for compartment pressure IE ICP to remain low We will discuss with neurosurgery about placing ICP monitor or even draining subdural hematoma at this time. Patient remains hyperventilated and on hypertonic saline nonetheless will require bolt placement to assess for ICP and the effectiveness of the therapy 10/13/2016 Patient neurologically unchanged Repeat CAT scan shows some decrease in subdural hematoma and slight decrease in shift yet still severe brain injury At the family's request a second opinion neurosurgery consult was placed and second neurosurgeon has evaluated the patient She will have a long-term recovery here and have discussed this at length with the family Patient may need tracheostomy and PEG tube placement as the part of the appropriate treatment 10/14/2016 Patient with a severe brain injury and subdural hematoma and intraparenchymal hemorrhage Underwent yesterday ventriculostomy placement ICP is within physiologic range at this time and the subdural hematoma size has somewhat decreased There is no change in the neurologic status over the last 24 hours 10/17/16 No change in neurologic status Patient withdraws to pain but does not open eyes or communicates in anyway All sedation has been removed and ventilatory settings been gradually decreased in order to allow for the patient to roll picker his respirations 10/22/16 Patient's neurologic exam remains unchanged. Hypertonic saline was held for profound hypernatremia. EEG showed complete moderate encephalopathy. He will require tracheostomy and gastrostomy tube placement once stable. There was 1 episode of mucous plugging which resolved with aggressive suctioning. 10/23/16 Plan was for tracheostomy today, patient however has elevated ICPs into the 30s We will defer tracheostomy until patient is stable 10/24/16 ICP is improved following administration of neostigmine and a large bowel movement He is likely ready for tracheostomy now, as long as his ICPs remain low Palliative care consult placed for tomorrow, will await input from palliative care and family prior to tracheostomy and feeding tube placement Prognosis at this point remains grim for meaningful recovery 10/25/16 Patient with severe brain injury not showing any signs of neurologic recovery and last few days ICPs remain low apparently throughout the weekend and ventriculostomy has been removed by Dr. Cruz Palliative care consult is greatly appreciated and it helps us tremendously and decision-making and communication as far as this patient's further care is concerned At this point patient's friends appear to be thinking that he is a fighter and according to Dr. Cruz he has chance of meaningful recovery Therefore we will proceed with tracheostomy and PEG placement in next day or 2 10/26/16 No change in current status No neurologic improvement Able to wean the ventilator gradually however due to inability to protect airway patient will need tracheostomy and PEG placement We'll proceed with tracheostomy tomorrow 10/27/16 Patient with the significant head injury remains on the ventilator no change in neurologic status Weaning at this point is inhibited by the fact that patient cannot protect upper airway and due to the low Pawel Coma Scale Patient has undergone tracheostomy today and will have a PEG placed Copious secretions At this point we'll be able to wean as tolerated considering the presence of tracheostomy. 10/29/2016 PTD: 18 Pt is off all sedation. He is still not arousing. Questionable response to painful stimuli. The family will be meeting today with palliative care to discuss goals of care. 10/30/2016 PTD: 19 Pt now opens his eyes, slightly, but does not follow commands. Pt remains off sedation. Plan for weaning further from the vent. TF will resume 24 hrs post PEG placement as per protocol. 10/31/2016 PTD: 20 Patient on CPAP this morning. Originally respiratory rate equals 30, however proposed pain medication administration - he is now breathing comfortably without distress on CPAP. According to nurses, patient was following commands last night. He would give the "thumbs-up" on his right hand, Wiggle his toes on the right side, and smile. This morning he is comfortable, but lethargic post pain medication administration. 11/01/2016 PTD: 21 Attempt to progress patient from CPAP to T piece. Once patient can be maintained on T-piece he can transferred to the floor. Case management is working diligently on placement. 11/02/2016 PTD: 22 Patient completed CPAP overnight, and is currently on a trach collar. 11/03/2016 PTD: 23 No changes noted at time. Patient remains on CPAP without incident. Working on placement. 11/04/2016 PTD: 24 Patient had slight difficulty overnight, and needed to return to ventilator settings. Now on CPAP and tolerating well. Awaiting bed at [facility] so patient came transfer for meteorological equipment repairer management and care. 11/05/2016 PTD: 25 No further changes. Pt remains stable on T-Piece. 11/06/16 Everyday patient slightly improve neurologically He is awake but not following commands all the time however appears to be tracking with his eyes and being fairly alert Tolerates diet Patient does not require ICU care and will be transferred to the floor Awaiting long-term placement for this gentleman Objective Vital Signs Date Time Temp Pulse Resp B/P Pulse Ox O2 Delivery O2 Flow Rate FiO2 11/06/16 16:00 102.2 108 24 102/59 93 11/06/16 08:08 T-piece 28 11/05/16 21:49 6.00 Intake and Output 11/05/16 11/05/16 11/06/16 08:00 16:00 00:00 Intake Total 825 ml 612 ml 641 ml Output Total 550.0 ml 2155.0 ml 550.0 ml Balance 275.0 ml -1543.0 ml 91.0 ml Result Diagram: 11/06/16 0532 11/06/16 0428 Exam INCIDENT RESPONSE COORDINATOR Alert but disoriented Follows commands most of the time Moves all 4 extremities Hemodynamic/Cardiac Hemodynamically intact Pulmonary/Respiratory Bilateral breath sounds and patient remains some TPs versus trach collar Abdomen/GI Nutrition Abdomen is soft feedings at well tolerated Urinary Catheter Assessment Date of Insertion: Oct 11, 2016 Assessment and Plan Assessment: (1) Encephalopathy acute ICD Code: G93.40 Status: Acute (2) Fracture of occipital bone of skull with loss of consciousness ICD Code: S02.119A Status: Acute (3) Subdural hemorrhage following injury ICD Code: S06.5X9A Status: Acute (4) Alcohol dependence ICD Code: F10.20 Status: Acute (5) Traumatic brain injury ICD Code: S06.9X9A Status: Acute (6) Seizure ICD Code: R56.9 Status: Acute (7) Pneumonia ICD Code: J18.9 Status: Acute (8) Pain ICD Code: R52 Status: Acute (9) SAH (subarachnoid hemorrhage) ICD Code: I60.9 Status: Acute Plan [place]: This is a 56-year-old male who sustained a fall from a ladder of approximately 10 feet. He landed on his head. GCS 3 at the scene, and bystanders performed CPR. He has had a lengthy stay in the ICU requiring mechanical ventilation. He has required a trach, and a PEG. Patient does not have insurance, therefore final discharge plans have been difficult to arrange. PMHx: ETOH (12-15 beers daily) drinks beer with morning coffee, 2 PPD smoker, Hep C INJURIES: SAH SDH Large occipital skull fx Aspiration Assessment and plan by systems: NEUROLOGICAL: Pt is off all sedation. Provide analgesia for comfort and pain - oxycodone via tube Seizure prophylaxis - Keppra, and Cerebyx. Valproic acid ordered by neurology. HOB elevated 30 degrees Hyponatremia status - NA - 143 + peripheral pulses x 4 extremities. CARDIOVASCULAR: HR = 91-97. Sinus rhythm. BP = 138/67 Continually monitor for hemodynamic instability (shock and hypotension). BP meds - hydralazine, propranolol, clonidine. Diuretics - Lasix 40 daily with 25 mEq potassium daily Follow CMP Electrolyte protocol in place RESPIRATORY: Patient remains on T-piece. Tolerating well. O2 Sats - Monitor for hypoxemia Edema status - generalized edema Lung sounds - CTA but decreased throughout. Pulmonary toilet = L&S. Bronchodilators - Breathing treatments duonebs. Chest X-Ray results - persistent left lower lobe consolidation. Sputum culture - /: Moderate growth of respiratory eric. Antibiotics - all are discontinued at this time. VAP protocol in place Labs tomorrow Chest X-Ray tomorrow GASTROINTESTINAL: Diet: Jevity at 60 cc/hr Bowel sounds - + x 4 quads. Bowel regimen: Cynthia-Colace, M OM. Lactulose 3 times a day. MiraLAX. Bisacody SC . LBM: 11/[address] with brown liquid stool. RENAL / URINARY: I&O - -708 BUN / creat 18 / 0.[address] to bedside drainage bag Urine culture - 10/24: No growth in 48 hours ENDOCRINE: BGM = 121 via AM labs SSI HEMATOLOGY: H&H 9.1 / 27.1 Continue to monitor for signs and symptoms of bleeding. Evaluate need for IVC filter. Transfuse for < 7.0 US Lower extremity study 10/27: No DVT in bilateral legs Monitor patient for any bleeding complications. INFECTIOUS DISEASE: Follow CBC WBC - 13.4 Fevers - low grade Administer antipyretics for temp as needed. Blood cultures 10/24: Negative Urine 10/24 negative Sputum cultures 10/24 negative IV antibiotics : Discontinued Monitor pneumonia evolution with repeat chest X-Rays as needed. Maintain vigorous aseptic care of central line to avoid blood stream infections. Consider a consult to ID for further management. PROPHYLAXIS: VAP protocol in place GI : Protonix IV DVT - Mechanical VTE with SCDs. Chemical management with Lovenox sq SKIN: Warm, dry. ACTIVITY: Status - BR PT and OT ordered. CASE MANAGEMENT: Consulted for assist with DC planning. Placement - disposition - TBD. Pt is unable to transfer to [facility] at this time. Pt does not have insurance, therefore case management is working to obtain SSI for this patient. EMOTIONAL SUPPORT: Provided to patient. Plan of care discussed. Questions answered to the best of my knowledge. Palliative care has been consulted. Nursing care can be de-escalated to 1:4. This patient is currently critically ill and injured, with traumatic brain injury with respiratory failure due to his injuries. He is being managed in the ICU. The trauma team will round, assess and evaluate the patient on a day to day basis. Attestation The exam, history, and the medical decision-making described in the above note were completed with the assistance of the mid-level provider. I reviewed and agree with the findings presented. I attest that I had a [id number] encounter with the patient on the same day, and personally performed and documented my assessment and findings in the medical record. Critical care time 35 minutes. Problem Qualifiers (1) Fracture of occipital bone of skull with loss of consciousness: Qualified Code: S02.119A - Fracture of occipital bone of skull with loss of consciousness, closed, initial encounter (2) Subdural hemorrhage following injury: Qualified Code: S06.5X1A - Traumatic subdural hemorrhage with loss of consciousness of 30 minutes or less, initial encounter (3) Traumatic brain injury: Sherry Parikh MD Nov 06, 2016 17:06
[2016-11-06] MEDS: ACETAMINOPHEN 325 MG TAB PO PRN (17:10)
[2016-11-06] MEDS: WATER IV SCH ×2 (20:26)
[2016-11-06] MEDS: THIAMINE IV SCH ×2 (20:26)
[2016-11-06] MEDS: DEXTROSE 5% IV SCH ×2 (20:26)
[2016-11-06] MEDS: RESP: ALBUTEROL 2.5 MG/IPRATROPIUM 0.5 MG NEB (PRN) NEB (21:05)
[2016-11-07] VITALS (8 sets, daily range): BP systolic 106–202; BP diastolic 64–93; PULSE 93–115; RESP 18–23; TEMP 99.4–100.6; O2SAT 93–97
[2016-11-07] MEDS: PROPRANOLOL HCL 20 MG TAB PO SCH ×5 (00:08→23:30)
[2016-11-07] MEDS: CHLORHEXIDINE GLUCONATE 2 % 1 PACK (2 CLOTHS) TOP SCH (04:00)
[2016-11-07] MEDS: cloNIDine HCL 0.3 MG TAB PO SCH ×3 (06:18→23:30)
[2016-11-07] MEDS: CHLORHEXIDINE 0.12% (ORAL KIT) 15 ML CUP MT SCH ×2 (08:00→20:00)
[2016-11-07] MEDS: FOLIC ACID 1 MG TAB PO SCH (08:12)
[2016-11-07] MEDS: levETIRAcetam 500 MG/5 ML UDC TUBE SCH ×2 (08:13→23:31)
[2016-11-07] MEDS: LACTULOSE SYRUP 20 GM/30 ML CUP PO SCH ×3 (08:13→15:53)
[2016-11-07] MEDS: DOCUSATE SODIUM 100 MG CAP PO SCH ×2 (08:13→23:30)
[2016-11-07] MEDS: MAGNESIUM HYDROXIDE SUSP 30 ML CUP PO SCH (08:13)
[2016-11-07] MEDS: FUROSEMIDE 40 MG/4 ML VIAL IV PUSH SCH (08:13)
[2016-11-07] MEDS: SODIUM CHLORIDE 0.9% FLUSH 5 ML FLUSH IVF SCH ×2 (08:14→23:30)
[2016-11-07] MEDS: VALPROATE INJ 1,000 MG in SODIUM CHLORIDE 0.9% INJ 100 ML IV SCH ×2 (09:00→23:29)
[2016-11-07] MEDS: POTASSIUM CHLORIDE 25 MEQ EFFERVESCENT TAB TUBE SCH (09:00)
[2016-11-07] MEDS: MULTIVITAMIN TAB PO SCH (09:00)
[2016-11-07] MEDS: POLYETHYLENE GLYCOL 17 GM PKG PO SCH ×2 (09:00→23:30)
[2016-11-07] MEDS: PANTOPRAZOLE SODIUM 40 MG VIAL IVP SCH (09:00)
[2016-11-07] MEDS: SENNOSIDES SYRUP 8.8 MG/5 ML CUP PO/NG SCH ×2 (09:00→23:31)
[2016-11-07] MEDS: ENOXAPARIN SODIUM 40 MG/0.4 ML SYRINGE SQ SCH (12:05)
[2016-11-07] MEDS: ACETAMINOPHEN 325 MG TAB PO PRN ×3 (12:05→18:32)
--- NOTE | 2016-11-07 15:34 | HHI.PR ---
Subjective Subjective Notes PTD: 27 Patient has a trach. Does not verbalize concerns. Objective Vitals/I&O Vital Signs Date Time Temp Pulse Resp B/P Pulse Ox O2 Delivery O2 Flow Rate FiO2 11/07/16 12:35 100.6 109 18 202/93 97 11/07/16 07:51 Sales Center Manager 35 T-Piece 11/06/16 21:05 5.00 Labs Laboratory Tests Test 11/02/16 11/05/16 11/06/16 11/06/16 10:06 21:48 04:28 05:32 Levetiracetam (Keppra) Level 44.1 mcg/mL Valproic Acid (Depakene) Level 45 MCG/ML Sodium Level 141 MEQ/L Potassium Level 4.1 MEQ/L Chloride Level 103 MEQ/L Carbon Dioxide Level 29.4 MEQ/L Anion Gap 9 MEQ/L Blood Urea Nitrogen 16 MG/DL Creatinine 0.64 MG/DL Estimat Glomerular Filtration 129 ML/MIN Rate Random Glucose 106 MG/DL Calcium Level 8.2 MG/DL Magnesium Level 2.1 MG/DL White Blood Count 13.0 TH/MM3 Red Blood Count 3.27 MIL/MM3 Hemoglobin 10.5 GM/DL Hematocrit 32.9 % Mean Corpuscular Volume 100.6 FL Mean Corpuscular Hemoglobin 32.0 PG Mean Corpuscular Hemoglobin 31.8 % Concent Red Cell Distribution Width 14.4 % Platelet Count 482 TH/MM3 Mean Platelet Volume 8.1 FL Hematology Comments Radiology Last Impressions Chest X-Ray 11/04/16 0600 Signed Impressions: Service Date/Time: October 04:50 - CONCLUSION: Patchy right lung base opacity nonspecific. Jules Chisholm MD Lower Extremity Ultrasound 10/27/16 0000 Signed Impressions: Service Date/Time: Thursday, October 27, 2016 10:13 - CONCLUSION: No DVT either lower extremity. 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 MD Head CT 10/23/16 0000 Signed Impressions: Service Date/Time: Sunday, October 23, 2016 11:21 - CONCLUSION: 1. Examination quality is degraded by motion artifact. There is decreased midline shift, currently measuring 3 mm compared to 6 mm on the prior study. 2. There are persistent hemorrhagic contusions in the right frontal lobe but they are less well-visualized today either related to interval improvement or related to motion artifact. Red Arenas MD Chest CT 10/23/16 0000 Signed Impressions: Service Date/Time: Sunday, October 23, 2016 11:24 - CONCLUSION: 1. Airspace consolidation within the left upper lobe. This could represent an infectious process. 2. Small bilateral pleural effusions with associated compressive atelectasis in the lower lobes. Red Arenas MD Abdomen/Pelvis CT 10/23/16 0000 Signed Impressions: Service Date/Time: Sunday, October 23, 2016 11:27 - CONCLUSION: 1. No acute finding is identified within the abdomen or pelvis. 2. Anasarca. 3. Stable 7 mm nodule on the left adrenal gland. Small size favors a benign process but is incompletely characterized on this examination. Red Arenas MD Neck CTA 10/12/16 0000 Signed Impressions: Service Date/Time: Wednesday, October 12, 2016 09:27 - CONCLUSION: Mild atherosclerotic changes in the proximal portions of both internal carotid arteries but no significant stenosis. Dez Petersen MD Head CTA 10/12/16 0000 Signed Impressions: Service Date/Time: Wednesday, October 12, 2016 09:27 - CONCLUSION: No evidence of acute vascular injury Red Hoffman MD Pelvis X-Ray 10/11/16 1213 Signed Impressions: Service Date/Time: Tuesday, October 11, 2016 12:02 - CONCLUSION: Satisfactory trauma pelvis appearance. Red Hoffman MD Cervical Spine CT 10/11/16 1213 Signed Impressions: Service Date/Time: Tuesday, October 11, 2016 12:19 - CONCLUSION: Occipital skull fracture. No evidence of acute traumatic injury in the cervical spine Red Hoffman MD Narrative Exam GENERAL: This is a 56 year old male mechanically ventilated. SKIN: Warm and dry. Generalized edema noted. HEAD: Atraumatic. Normocephalic. EYES: PERRLA ENT: No nasal bleeding or discharge. Mucous membranes pink and moist. NECK: Trach. Trachea midline. No JVD. CARDIOVASCULAR: Regular rate and rhythm. RESPIRATORY: T-piece. No accessory muscle use. Clear but decreased to auscultation. Breath sounds equal bilaterally. GASTROINTESTINAL: Abdomen soft, non-tender, nondistended. BS + x [address] in [address]. Estrella catheter in place to bedside drainage bag with clear yellow urine. MUSCULOSKELETAL: Extremities without cyanosis, or edema. No obvious deformities. + peripheral pulses. NEUROLOGICAL: Mechanically ventilated. Patient opens eyes slightly. Pt does not follow commands. A/P Problem List: (1) Subdural hemorrhage following injury (2) Fracture of occipital bone of skull with loss of consciousness (3) Encephalopathy acute (4) Alcohol dependence (5) Traumatic brain injury (6) Anasarca (7) Pneumonia (8) SAH (subarachnoid hemorrhage) Assessment and Plan [place]: This is a 56-year-old male who sustained a fall from a ladder of approximately 10 feet. He landed on his head. GCS 3 at the scene, and bystanders performed CPR. He has had a lengthy stay in the ICU requiring mechanical ventilation. He has required a trach, and a PEG. Patient does not have insurance/funding sources, therefore final discharge plans have been difficult to arrange. PMHx: ETOH (12-15 beers daily) drinks beer with morning coffee, 2 PPD smoker, Hep C INJURIES: SAH SDH Large occipital skull fx Aspiration Diet: Jevity at 60 cc an hour. Pulmonary: Encourage good pulmonary toileting. L & S via tracheostomy tube as needed to clear secretions. PAIN Management: Oxycodone via PEG. Activity: OOB stretcher chair. PT and OT ordered. GI prophylaxis: Protonix IV Bowel regimen: Cynthia-colace and MOM. Lactulose 3 times a day. MiraLAX. Bisacodyl suppository. LBM: 11/06. DVT prophylaxis: Mechanical VTE with SCDs. Chemical management with Lovenox SQ. DC Planning: Case management consulted for assistance with final discharge disposition. Patient does not have insurance/funding therefore this has caused difficulties with final placement for this patient. Emotional support provided to patient at bedside and plan of care discussed. Discussed with RN at bedside. Patient is hemodynamically stable and being managed on the med/surg floor. Remarks seen and examined with ORNAMENTAL PLASTERER HELPER-agree with assessment and plan Problem Qualifiers (1) Subdural hemorrhage following injury: Qualified Code: S06.5X1A - Traumatic subdural hemorrhage with loss of consciousness of 30 minutes or less, initial encounter (2) Fracture of occipital bone of skull with loss of consciousness: Qualified Code: S02.119A - Fracture of occipital bone of skull with loss of consciousness, closed, initial encounter (3) Traumatic brain injury: Osiris Pittman Nov 07, 2016 15:34 Aisha Berkowitz MD Nov 16, 2016 17:53
[2016-11-07 20:41] LABS: BACTERIA, URINE RARE /hpf; BLOOD, URINE SMALL (NEG); GLUCOSE,URINE NEG (NEG); KETONE, URINE TRACE mg/dL (NEG); MUCUS URINE FEW /lpf (OCC); NITRITE,URINE NEG (NEG); PH, URINE 6.5 (5.0-8.5); URINE COLOR YELLOW (YELLW/STRAW)
[2016-11-07 20:42] LABS: COMMENT (UR) CATH-CULTURE IND; CULTURE IF INDICATED CATH CULTURE IND
[2016-11-07] MEDS: DEXTROSE 5% IV SCH ×2 (23:29)
[2016-11-07] MEDS: THIAMINE IV SCH ×2 (23:29)
[2016-11-07] MEDS: WATER IV SCH ×2 (23:29)
[2016-11-08] VITALS (12 sets, daily range): BP systolic 103–142; BP diastolic 61–78; PULSE 85–103; RESP 18–26; TEMP 97.9–100.1; O2SAT 91–98
[2016-11-08] MEDS: CHLORHEXIDINE GLUCONATE 2 % 1 PACK (2 CLOTHS) TOP SCH (04:00)
[2016-11-08] MEDS: RESP: ALBUTEROL 2.5 MG/IPRATROPIUM 0.5 MG NEB (PRN) NEB (05:12)
[2016-11-08] MEDS: PROPRANOLOL HCL 20 MG TAB PO SCH ×3 (06:22→18:00)
[2016-11-08] MEDS: cloNIDine HCL 0.3 MG TAB PO SCH ×3 (06:22→22:14)
--- NOTE | 2016-11-08 06:30 | RADRPT ---
EXAM DATE/TIME: 11/08/2016 05:50 [facility] COMPARISON: CHEST SINGLE AP, November 04, 2016, 4:50. INDICATIONS : Short of breath MEDICAL HISTORY : fell from ladder SURGICAL HISTORY : Craniotomy. tracheostomy ENCOUNTER: Subsequent ACUITY: 2 weeks PAIN SCORE: Non-responsive. LOCATION: Bilateral chest FINDINGS: There is persistent parenchymal opacity in the right lung base. Tracheostomy tube is noted. Left lung is clear. Heart and mediastinal contours are normal. CONCLUSION: No significant change has occurred. Hussein Miller MD on November 08, 2016 at 6:28 Board Certified Radiologist. This report was verified electronically.
[2016-11-08] MEDS: CHLORHEXIDINE 0.12% (ORAL KIT) 15 ML CUP MT SCH ×2 (08:00→20:00)
[2016-11-08] MEDS: PANTOPRAZOLE SODIUM 40 MG VIAL IVP SCH (08:01)
[2016-11-08] MEDS: FOLIC ACID 1 MG TAB PO SCH (08:01)
[2016-11-08] MEDS: LACTULOSE SYRUP 20 GM/30 ML CUP PO SCH ×3 (08:02→18:00)
[2016-11-08] MEDS: POTASSIUM CHLORIDE 25 MEQ EFFERVESCENT TAB TUBE SCH (08:02)
[2016-11-08] MEDS: SENNOSIDES SYRUP 8.8 MG/5 ML CUP PO/NG SCH ×2 (08:02→22:15)
[2016-11-08] MEDS: MULTIVITAMIN TAB PO SCH (08:02)
[2016-11-08] MEDS: MAGNESIUM HYDROXIDE SUSP 30 ML CUP PO SCH (08:02)
[2016-11-08] MEDS: DOCUSATE SODIUM 100 MG CAP PO SCH ×2 (08:02→22:14)
[2016-11-08] MEDS: POLYETHYLENE GLYCOL 17 GM PKG PO SCH ×2 (08:02→22:14)
[2016-11-08] MEDS: FUROSEMIDE 40 MG/4 ML VIAL IV PUSH SCH (08:03)
[2016-11-08] MEDS: VALPROATE INJ 1,000 MG in SODIUM CHLORIDE 0.9% INJ 100 ML IV SCH ×2 (08:03→22:59)
[2016-11-08] MEDS: SODIUM CHLORIDE 0.9% FLUSH 5 ML FLUSH IVF SCH ×2 (08:04→22:15)
[2016-11-08] MEDS: levETIRAcetam 500 MG/5 ML UDC TUBE SCH ×2 (08:07→22:15)
[2016-11-08] MEDS: ENOXAPARIN SODIUM 40 MG/0.4 ML SYRINGE SQ SCH (11:55)
--- NOTE | 2016-11-08 15:21 | HHI.PR ---
Subjective Subjective Notes PTD: 27 Patient in bed with trach to trach collar. No verbal response. Objective Vitals/I&O Vital Signs Date Time Temp Pulse Resp B/P Pulse Ox O2 Delivery O2 Flow Rate FiO2 11/08/16 12:00 97.9 94 26 122/64 97 11/08/16 11:10 Trach Collar 28 11/08/16 05:15 5.00 Labs Laboratory Tests Test 11/07/16 19:35 Urine Color YELLOW Urine Turbidity HAZY Urine pH 6.5 Urine Specific [place] 1.026 Urine Protein 100 Urine Glucose (UA) NEG Urine Ketones TRACE Urine Occult Blood SMALL Urine Nitrite NEG Urine Bilirubin NEG Urine Urobilinogen 4.0 Urine Leukocyte Esterase MOD Urine RBC 43 Urine WBC 49 Urine Bacteria RARE Urine Mucus FEW Microscopic Urinalysis Comment CATH-CULTURE IND Date/Time Procedure Status Source Growth 11/07/16 19:35 Urine Culture - Preliminary Resulted Urine Catheterized Urine RESULTS PENDING Radiology Last Impressions Chest X-Ray 11/04/16 0600 Signed Impressions: Service Date/Time: October 04:50 - CONCLUSION: Patchy right lung base opacity nonspecific. Jules Chisholm MD Lower Extremity Ultrasound 10/27/16 0000 Signed Impressions: Service Date/Time: Thursday, October 27, 2016 10:13 - CONCLUSION: No DVT either lower extremity. 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 MD Head CT 10/23/16 0000 Signed Impressions: Service Date/Time: Sunday, October 23, 2016 11:21 - CONCLUSION: 1. Examination quality is degraded by motion artifact. There is decreased midline shift, currently measuring 3 mm compared to 6 mm on the prior study. 2. There are persistent hemorrhagic contusions in the right frontal lobe but they are less well-visualized today either related to interval improvement or related to motion artifact. Red Arenas MD Chest CT 10/23/16 0000 Signed Impressions: Service Date/Time: Sunday, October 23, 2016 11:24 - CONCLUSION: 1. Airspace consolidation within the left upper lobe. This could represent an infectious process. 2. Small bilateral pleural effusions with associated compressive atelectasis in the lower lobes. Red Arenas MD Abdomen/Pelvis CT 10/23/16 0000 Signed Impressions: Service Date/Time: Sunday, October 23, 2016 11:27 - CONCLUSION: 1. No acute finding is identified within the abdomen or pelvis. 2. Anasarca. 3. Stable 7 mm nodule on the left adrenal gland. Small size favors a benign process but is incompletely characterized on this examination. Red Arenas MD Neck CTA 10/12/16 0000 Signed Impressions: Service Date/Time: Wednesday, October 12, 2016 09:27 - CONCLUSION: Mild atherosclerotic changes in the proximal portions of both internal carotid arteries but no significant stenosis. Dez Petersen MD Head CTA 10/12/16 0000 Signed Impressions: Service Date/Time: Wednesday, October 12, 2016 09:27 - CONCLUSION: No evidence of acute vascular injury Red Hoffman MD Pelvis X-Ray 10/11/16 1213 Signed Impressions: Service Date/Time: Tuesday, October 11, 2016 12:02 - CONCLUSION: Satisfactory trauma pelvis appearance. Red Hoffman MD Cervical Spine CT 10/11/16 1213 Signed Impressions: Service Date/Time: Tuesday, October 11, 2016 12:19 - CONCLUSION: Occipital skull fracture. No evidence of acute traumatic injury in the cervical spine Red Hoffman MD Narrative Exam GENERAL: This is a 56 year old male mechanically ventilated. SKIN: Warm and dry. Generalized edema noted. HEAD: Atraumatic. Normocephalic. EYES: PERRLA ENT: No nasal bleeding or discharge. Mucous membranes pink and moist. NECK: Trach. Trachea midline. No JVD. CARDIOVASCULAR: Regular rate and rhythm. RESPIRATORY: T-piece. No accessory muscle use. Clear but decreased to auscultation. Breath sounds equal bilaterally. GASTROINTESTINAL: Abdomen soft, non-tender, nondistended. BS + x [address] quads[address] seal in place. Estrella catheter in place to bedside drainage bag with clear yellow urine. MUSCULOSKELETAL: Extremities without cyanosis, or edema. No obvious deformities. + peripheral pulses. NEUROLOGICAL: Mechanically ventilated. Patient opens eyes slightly. Pt does not follow commands. A/P Problem List: (1) Subdural hemorrhage following injury (2) Fracture of occipital bone of skull with loss of consciousness (3) Encephalopathy acute (4) Alcohol dependence (5) Traumatic brain injury (6) Anasarca (7) Pneumonia (8) SAH (subarachnoid hemorrhage) Assessment and Plan [place]: This is a 56-year-old male who sustained a fall from a ladder of approximately 10 feet. He landed on his head. GCS 3 at the scene, and bystanders performed CPR. He has had a lengthy stay in the ICU requiring mechanical ventilation. He has required a trach, and a PEG. Patient does not have insurance/funding sources, therefore final discharge plans have been difficult to arrange. PMHx: ETOH (12-15 beers daily) drinks beer with morning coffee, 2 PPD smoker, Hep C INJURIES: SAH SDH Large occipital skull fx Aspiration Consults: Neurosurgery. [facility]. Neurology. GI. Hospitalist. Consult at hospitalist - to assume attending status. Diet: Jevity at 60 cc an hour. Tolerating. Pulmonary: Encourage good pulmonary toileting. L & S via tracheostomy tube as needed to clear secretions. PAIN Management: Oxycodone via PEG. Activity: OOB stretcher chair. PT and OT ordered. GI prophylaxis: Protonix IV Bowel regimen: Cynthia-colace and MOM. Lactulose 3 times a day. MiraLAX. Bisacodyl suppository. LBM: 11/06. DVT prophylaxis: Mechanical VTE with SCDs. Chemical management with Lovenox SQ. DC Planning: Case management consulted for assistance with final discharge disposition. Patient does not have insurance/funding therefore this has caused difficulties with final placement for this patient. Emotional support provided to patient at bedside and plan of care discussed. Discussed with RN at bedside. Patient is hemodynamically stable and being managed on the med/surg floor. Trauma surgery will transfer attending status to the hospitalist and sign off at this time since his traumatic injuries have resolved. Please feel free to contact us or reconsult us if the need arises. Problem Qualifiers (1) Subdural hemorrhage following injury: Qualified Code: S06.5X1A - Traumatic subdural hemorrhage with loss of consciousness of 30 minutes or less, initial encounter (2) Fracture of occipital bone of skull with loss of consciousness: Qualified Code: S02.119A - Fracture of occipital bone of skull with loss of consciousness, closed, initial encounter (3) Traumatic brain injury: Osriis Pittman Nov 08, 2016 15:21
--- NOTE | 2016-11-08 15:38 | HHI.PR ---
Neuropsych Emotional Emotional: UnabletoAssess: Emotional, Anxious/Fearful, Depressed/Sad, Hostile/ Resentful, Irritable/Angry/Frustrate, Labile, Constricted/Blunted Behavior Behavior: Unable to Asses: Behavior, Coping/Acceptance, Cooperative w/ Treatment, Motivation, Frustration Tolerance/[place], Impulsive/Agitated, Suicidal/ Homicidal Risk Cognitive Cognitive: Unable to Asses: Cognitive, Attention/Concentration, Confused/ Orientation, Insight/Awareness, Judgement/Problem-Solving, Memory Progress Notes/Response to Tx Contents of Sessions: Interests Time with Patient: 15 minutes Premorbid psychological status Premorbid Cognitive, Emotional and Behavioral Status: Deferred. 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 The patient has no known psychiatric difficulties. However, substance abuse history is significant for alcohol dependence and tobacco dependence. Behavioral Reactions of Patient and Family/Support System: Tenuous. The patients family has a limited understanding of the complexities of this patient 's brain injury, and the lifestyle barriers that prevent an optimal recovery. They are expected to have ongoing issues of adjustment given the nature of the injury, and this aspect of recovery will require ongoing monitoring. Emotional/Behavioral Status of Patient and Family/Support System: Tenuous. Pertinent issues, if appropriate to this patients clinical care, are described in detail above. Maximizing acute care outcome It is recommended that the patient be monitored for emergent behavioral impulsivity as the medical condition evolves. This patients neuropathological challenges may limit their rehabilitation potential going forward, and these challenges will require specialized therapeutic skills to maximize outcome. Additionally, the patients family is experiencing ongoing issues of adjustment given the traumatic nature of the injury, and they [will need / may benefit] from ongoing psychological assistance. Anticipated Problems Ongoing areas of concern could include behavioral impulsivity, lack of insight and judgment, which is expected to improve with time and treatment, provided he moves past this stage of recovery. Presently, the patient is not following commands. His long duration alcohol dependence and tobacco dependence, which has led to global cerebral atrophy, will serve as a double barrier to his recovery from this injury. Treatment Plan This clinician will continue to follow with you throughout the course of this patients rehabilitation treatment, and I will be available to meet with the patients family/support system to facilitate their understanding and the ongoing care of their family member. The goals of neuropsychological intervention shall be both educational and supportive to the family/support system as is deemed clinically appropriate. [facility] Level: III:Localized response-total assist Diagnosis: (1) Major neurocognitive disorder as late effect of traumatic brain injury with behavioral disturbance Status: Acute (2) Alcohol dependence Status: Acute Progress Note Narrative Ongoing follow-up of patient who was seen bedside. This patient was sleeping and unrestrained this afternoon. He does not verbalize concerns but is awake. He does not appear agitated, and any level of confusion is unable to be assessed as he does not verbalize any concerns nor does he respond to commands. I will continue to follow with you. Kermit Hughes PhD Nov 08, 2016 3:38 pm
--- NOTE | 2016-11-08 19:11 | HHI.PR ---
Subjective Subjective Comments Trach on T-piece. Does not appear to be in pain or discomfort. No shortness of breath noted. Allergies: Coded Allergies: UNOBTAINABLE (Unverified , 10/11/16) Review of Systems All other ROS: Unable to obtain Exam I&O / VS 11/07/16 11/07/16 11/08/16 15:00 23:00 07:00 Intake Total 585 ml Output Total 2000 ml 1100 ml Balance -1415 ml -1100 ml IV Total 100 ml Tube Feeding 485 ml Output Urine Total 2000 ml 1100 ml # Voids 0 # Bowel Movements 0 0 Vital Signs Date Time Temp Pulse Resp B/P Pulse Ox O2 Delivery O2 Flow Rate FiO2 11/08/16 16:00 98.6 85 25 103/61 91 11/08/16 12:00 97.9 94 26 122/64 97 11/08/16 11:10 97 Trach Collar 28 11/08/16 09:38 103 11/08/16 09:28 96 T-Piece 28 11/08/16 08:00 99.2 88 26 108/68 98 11/08/16 05:15 94 T-piece 5.00 28 11/08/16 04:00 100.1 101 20 142/73 97 11/08/16 00:00 100.0 87 20 116/72 94 11/07/16 20:00 28 11/07/16 20:00 99.4 97 20 113/68 95 11/07/16 20:00 99 General: Other (Trach with T-piece) Respiratory: Coarse breath sounds Musculoskeletal: ROM (Grossly within normal limits), Other (SCDs and Multi- Podus boots in place) Neurologic: Pupils (PERRLA), EOM (Not focusing or traching to voice), Other ( Multipodus boots in place) Objective Micro and Labs Laboratory Tests Test 11/07/16 19:35 Urine Color YELLOW Urine Turbidity HAZY Urine pH 6.5 Urine Specific [place] 1.026 Urine Protein 100 Urine Glucose (UA) NEG Urine Ketones TRACE Urine Occult Blood SMALL Urine Nitrite NEG Urine Bilirubin NEG Urine Urobilinogen 4.0 Urine Leukocyte Esterase MOD Urine RBC 43 Urine WBC 49 Urine Bacteria RARE Urine Mucus FEW Microscopic Urinalysis Comment CATH-CULTURE IND Date/Time Procedure Status Source Growth 11/07/16 19:35 Urine Culture - Preliminary Resulted Urine Catheterized Urine RESULTS PENDING Assessment and Plan Diagnosis: (1) Traumatic brain injury Assessment 1. Fall from ladder with severe TBI including occipital fracture, SDH and SAH S/ P right FTP craniectomy with evacuation of SDH currently intubated on vent for trach placement 10/27/16: Brandt 2 2. Seizure Plan 1. PT/OT following for ROM. To be mobilized to stretcher chair 2. Appreciate Neuropsychology followup. 3. ST following for coma stimulation and some response to icing and nasal swab 4. Continue Multi-Podus boots to prevent foot drop 5. Continue to turn and reposition to protect skin 6. Will continue to follow regarding ongoing rehabilitation needs while hospitalized and at discharge in conjunction with case management. Currently SSI pending Tamanna Munson MD Nov 08, 2016 19:11
[2016-11-08] MEDS: THIAMINE IV SCH ×2 (22:12)
[2016-11-08] MEDS: DEXTROSE 5% IV SCH ×2 (22:12)
[2016-11-08] MEDS: WATER IV SCH ×2 (22:12)
[2016-11-09] VITALS (8 sets, daily range): BP systolic 126–167; BP diastolic 71–97; PULSE 90–108; RESP 20–22; TEMP 96.9–99.7; O2SAT 93–97
[2016-11-09] MEDS: CHLORHEXIDINE GLUCONATE 2 % 1 PACK (2 CLOTHS) TOP SCH (00:08)
[2016-11-09] MEDS: cloNIDine HCL 0.3 MG TAB PO SCH ×3 (05:37→21:42)
[2016-11-09] MEDS: PROPRANOLOL HCL 20 MG TAB PO SCH ×5 (05:37→23:06)
--- NOTE | 2016-11-09 07:01 | MB ---
cc: JENNY COTTER DATE OF CONSULTATION 11/08/[address] Mcclelland REASON FOR CONSULTATION Trache management HISTORY OF PRESENT ILLNESS Ms. Nixon is a 56-year-old white male who was admitted on 10/11 as a trauma alert. He had a fall from a 10 foot ladder. He had CPR performed at the site. The patient was brought to the emergency room. He was found to have a subarachnoid and subdural hemorrhage. The patient was observed and after 24 hours his condition worsened. He has had respiratory failure. He was intubated. He also required ventriculostomy and he now has a tracheostomy and PEG tube placed. Currently, he is on tracheostomy tube. He opens eyes, looks around, does not follow any commands. LABORATORY DATA His lab evaluation reveals WBC count is 13,000, hemoglobin 10.5, hematocrit 32.9 and MCV 100, platelet count 483. His sodium is 141, potassium 4.1, chloride 103, CO2 29, BUN 16, creatinine 0.64. Chest x-ray shows tracheostomy tube in place. PAST MEDICAL HISTORY Not available. REVIEW OF SYSTEMS Not obtainable. MEDICATIONS He is currently on: 1. Valproate 1,000 mg [id number]. 2. Lovenox 40 mg a day. 3. Keppra 1500 mg q. 12-hour. 4. Lasix 40 mg a day. 5. Potassium 20 mEq. 6. Folic acid 1 mg a day. 7. Oxycodone for pain 8. Thiamine 100 mg a day. 9. Propranolol 20 mg q.6 h. 10. Clonidine 0.3 mg q.8 h. 11. Protonix 40 mg a day. ALLERGIES Not available. PHYSICAL EXAMINATION A well-built, well-nourished male who has a trache tube. VITAL SIGNS: Blood pressure 112/61, heart rate 85, respirations 20, temperature 98.6. HEENT: Pupils sluggishly reactive to light. NECK: Supple. He has a tracheostomy tube in place. CHEST: He has no rhonchi. He has a few scattered rales. CARDIOVASCULAR: S1 and S2 normal. ABDOMEN: Soft, nondistended with a PEG tube in place. EXTREMITIES: No edema. [employer]: He looks around, does not follow or track. IMPRESSION 1. Respiratory failure 2. Status post tracheostomy 3. History of fall. 4. Intracranial hemorrhage status post ventriculostomy. 5. Status post PEG tube placement. PLAN The patient will be maintained on trache tube, suctioned frequently, aerosol treatment, continue present antibiotic. He is on antiseizure medication. He has a history of mental status improved, tried to wean him from tracheostomy tube. Further treatment will depend upon his course in the hospital. Thank you, Dr. Mcclelland for this consult. MD NING Pelaez/SHEILA /7:40 PM /6:52 AM
[2016-11-09] MEDS: CHLORHEXIDINE 0.12% (ORAL KIT) 15 ML CUP MT SCH ×2 (08:00→21:41)
[2016-11-09] MEDS: DOCUSATE SODIUM 100 MG CAP PO SCH ×2 (09:00→21:00)
[2016-11-09] MEDS: POLYETHYLENE GLYCOL 17 GM PKG PO SCH ×2 (09:00→21:00)
[2016-11-09] MEDS: LACTULOSE SYRUP 20 GM/30 ML CUP PO SCH ×3 (09:00→18:00)
[2016-11-09] MEDS: SENNOSIDES SYRUP 8.8 MG/5 ML CUP PO/NG SCH ×2 (09:00→21:00)
[2016-11-09] MEDS: MAGNESIUM HYDROXIDE SUSP 30 ML CUP PO SCH (09:00)
[2016-11-09] MEDS: SODIUM CHLORIDE 0.9% FLUSH 5 ML FLUSH IVF SCH ×2 (09:00→21:41)
[2016-11-09] MEDS: POTASSIUM CHLORIDE 25 MEQ EFFERVESCENT TAB TUBE SCH (09:43)
[2016-11-09] MEDS: PANTOPRAZOLE SODIUM 40 MG VIAL IVP SCH (09:43)
[2016-11-09] MEDS: MULTIVITAMIN TAB PO SCH (09:43)
[2016-11-09] MEDS: FUROSEMIDE 40 MG/4 ML VIAL IV PUSH SCH (09:43)
[2016-11-09] MEDS: levETIRAcetam 500 MG/5 ML UDC TUBE SCH ×2 (09:43→21:42)
[2016-11-09] MEDS: FOLIC ACID 1 MG TAB PO SCH (09:44)
[2016-11-09] MEDS: VALPROATE INJ 1,000 MG in SODIUM CHLORIDE 0.9% INJ 100 ML IV SCH ×2 (10:01→22:33)
[2016-11-09] MEDS: ENOXAPARIN SODIUM 40 MG/0.4 ML SYRINGE SQ SCH (12:13)
--- NOTE | 2016-11-09 12:37 | HHI.PR ---
Neuropsych Emotional Emotional: UnabletoAssess: Emotional, Anxious/Fearful, Depressed/Sad, Hostile/ Resentful, Irritable/Angry/Frust[place], Labile, Constricted/Blunted Behavior Behavior: Unable to Asses: Behavior, Coping/Acceptance, Cooperative w/ Treatment, Motivation, Frustration Tolerance/[place], Impulsive/Agitated, Suicidal/ Homicidal Risk Cognitive Cognitive: Unable to Asses: Cognitive, Attention/Concentration, Confused/ Orientation, Insight/Awareness, Judgement/Problem-Solving, Memory Progress Notes/Response to Tx Contents of Sessions: Interests Time with Patient: 15 minutes Premorbid psychological status Premorbid Cognitive, Emotional and Behavioral Status: Deferred. 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 The patient has no known psychiatric difficulties. However, substance abuse history is significant for alcohol dependence and tobacco dependence. Behavioral Reactions of Patient and Family/Support System: Tenuous. The patients family has a limited understanding of the complexities of this patient 's brain injury, and the lifestyle barriers that prevent an optimal recovery. They are expected to have ongoing issues of adjustment given the nature of the injury, and this aspect of recovery will require ongoing monitoring. Emotional/Behavioral Status of Patient and Family/Support System: Tenuous. Pertinent issues, if appropriate to this patients clinical care, are described in detail above. Maximizing acute care outcome It is recommended that the patient be monitored for emergent behavioral impulsivity as the medical condition evolves. This patients neuropathological challenges may limit their rehabilitation potential going forward, and these challenges will require specialized therapeutic skills to maximize outcome. Additionally, the patients family is experiencing ongoing issues of adjustment given the traumatic nature of the injury, and they [will need / may benefit] from ongoing psychological assistance. Anticipated Problems Ongoing areas of concern could include behavioral impulsivity, lack of insight and judgment, which is expected to improve with time and treatment, provided he moves past this stage of recovery. Presently, the patient is not following commands. His long duration alcohol dependence and tobacco dependence, which has led to global cerebral atrophy, will serve as a double barrier to his recovery from this injury. Treatment Plan This clinician will continue to follow with you throughout the course of this patients rehabilitation treatment, and I will be available to meet with the patients family/support system to facilitate their understanding and the ongoing care of their family member. The goals of neuropsychological intervention shall be both educational and supportive to the family/support system as is deemed clinically appropriate. [facility] Level: III:Localized response-total assist Diagnosis: (1) Major neurocognitive disorder as late effect of traumatic brain injury with behavioral disturbance Status: Acute (2) Alcohol dependence Status: Acute Progress Note Narrative Ongoing follow-up of patient who is seen bedside being attended to by nursing staff. Patient remains awake, minimal tracking, not following commands. [facility]. Will continue to follow until placement. Kermit Hughes PhD Nov 09, 2016 12:37 pm
--- NOTE | 2016-11-09 12:57 | PD.CONS ---
HPI Service [facility] Consult Requested By Trauma surgery Reason for Consult Transfer of care status post fall on a ladder, status post craniectomy, ventriculostomy, PEG, trach Primary Care Physician Non-Staff Diagnoses: History of Present Illness Patient is a 56-year-old male who came to the hospital on 10/11/16 as a trauma patient. As per report, patient was on a ladder and fell approximately 10 feet. Bystander on the scene perform CPR for approximately 2 minutes stating the patient was blue. On EMS arrival patient is reported to have a GCS of 6, which improved at the time of ED arrival to GCS of 11. Imaging studies showed occipital fracture subdural and subarachnoid hemorrhage. The patient developed worsening agitation he was intubated and placed on mechanical ventilation. Repeat CT in 24 hours showed worsening of bilateral subdural subarachnoid hemorrhage with right temporal parietal subdural hemorrhage with 9 mL leftward midline shift. S/P Craniotomy and drain. Pt. now on tracheostomy and PEG tube placed. Consulted for transfer of care. Patient seen today. Opens his eyes and able to track voice. Nods head when asked if he is doing okay. Able to follow some simple commands intermittently. Appears to be comfortable. Tracheostomy with trach collar 28%. As per staff , no acute issues overnight, with increased secretions have been noted. Review of Systems ROS Limitations: Clinical Condition Past Family Social History Allergies: Coded Allergies: UNOBTAINABLE (Unverified , 10/11/16) Past Medical History Patient unable to provide medical history. Review of chart showed patient has chronic pain. Past Surgical History Status post craniotomy/ craniectomy Status post tracheostomy Status post PEG placement Patient unable to provide surgical history. Review of chart showed patient had previous right ankle surgery prior to admission. Active Ordered Medications Current Medications Medications (Trade) Dose Ordered Sig/Jony Route Start Time Stop Time Status Last Admin Miscellaneous Information 1 [id number] XX 10/11/16 13:00 10/11/16 13:00 (Chlorhexidine 2% Cloth) Taper DAILY@04 TOP 10/12/16 04:00 10/08/17 03:59 11/06/16 04:24 (Chlorhexidine 2% Cloth) 3 pack UNSCH PRN TOP 10/11/16 13:00 (Apresoline Inj) 10 mg Q2H PRN IV PUSH 10/11/16 13:30 10/28/16 11:33 (Peridex 0.12% Liq) 15 ml BID@08,20 MT 10/12/16 08:00 11/08/16 08:00 (Milk Of Magnesia Liq) 30 ml DAILY PO 10/12/16 10:00 11/07/16 08:13 (Tylenol Supp) 650 mg Q4H PRN ND 10/15/16 12:15 Info 1 UNSCH XX 10/17/16 11:00 (NS Flush) 2 ml UNSCH PRN IVF 10/18/16 11:45 (NS Flush) 2 ml BID IVF 10/18/16 21:00 11/09/16 09:00 (Dulcolax Supp) 10 mg DAILY PRN ND 10/18/16 11:45 10/18/16 14:36 (Colace) 100 mg BID PO 10/18/16 21:00 11/08/16 22:14 (Protonix Inj) 40 mg DAILY IVP 10/19/16 09:00 11/09/16 09:43 (Zofran Inj) 4 mg Q6H PRN IV 10/18/16 11:45 Calcium Gluconate 1 gm 1 gm UNSCH PRN IV 10/18/16 11:45 Potassium Chloride 100 ml @ 50 mls/hr UNSCH PRN IV 10/18/16 11:45 10/25/16 09:35 (Magnesium Sulfate Inj/NS Inj) 108 ml @ 108 mls/hr UNSCH PRN IV 10/18/16 11:45 (Tylenol) 650 mg Q4H PRN PO 10/18/16 11:45 11/07/16 18:32 (Lactulose Liq) 30 ml TID PO 10/21/16 13:00 11/07/16 12:04 (Miralax) 17 gm BID PO 10/21/16 11:00 11/08/16 22:14 (Inderal) 20 mg Q6HR PO 10/22/16 18:00 11/09/16 12:13 (Trandate Inj) 20 mg Q1H PRN IV PUSH 10/22/16 16:45 10/28/16 11:45 Clonidine 0.3 mg 0.3 mg Q8HR PO 10/22/16 16:42 11/08/16 22:14 (Thiamine Inj/ D5W 100 ml Inj) 101 ml @ 100 mls/hr Q24H IV 10/23/16 20:00 11/08/16 22:12 (Folate) 1 mg DAILY PO 10/25/16 09:00 11/09/16 09:44 (Theragran) 1 tab DAILY PO 10/25/16 09:00 11/09/16 09:43 (Senna Liq) 8.8 mg BID PO/NG 10/24/16 21:00 11/08/16 22:15 (Roxicodone Intensol Liq) 5 mg Q4H PRN PO 10/24/16 12:30 (Roxicodone Intensol Liq) 10 mg Q4H PRN PO 10/24/16 12:30 11/06/16 10:23 (Lasix Inj) 40 mg DAILY IV PUSH 10/26/16 09:00 11/09/16 09:43 (K-Lyte Cl Eff) 25 meq DAILY TUBE 10/26/16 09:00 11/09/16 09:43 (Keppra Liq) 1,500 mg Q12HR TUBE 10/27/16 21:00 11/09/16 09:43 Enoxaparin Sodium 40 mg 40 mg Q24H SQ 11/03/16 12:00 11/09/16 12:13 (Depacon Inj/NS Inj) 110 ml @ 105 mls/hr Q12HR IV 11/03/16 21:00 11/09/16 10:01 Family History Unable to obtain. Patient unable to provide family medical history. Social History As per review of chart, patient drinks 12-15 beers daily. 2 pack per day tobacco use. No known illicit drug use. Physical Exam Vital Signs Vital Signs Date Time Temp Pulse Resp B/P Pulse Ox O2 Delivery O2 Flow Rate FiO2 11/09/16 10:34 96 T-Piece 28 11/09/16 09:26 96 11/09/16 08:00 98.2 90 21 141/76 95 11/09/16 04:35 99.4 101 20 126/71 97 11/09/16 02:00 93 T-Piece 28 11/08/16 23:58 99.0 93 18 110/63 93 11/08/16 22:36 92 11/08/16 20:40 92 T-piece 5.00 28 11/08/16 20:07 98.3 86 18 138/78 94 11/08/16 16:00 98.6 85 25 103/61 91 Physical Exam GENERAL: This is a well-nourished, well-developed patient, in no apparent distress. SKIN: Warm and dry. The craniotomy site CDI. Notable erythematous maculopapular rash bilateral upper extremity. HEAD: Ectopy site CDI. EYES: Pupils equal round and reactive. No scleral icterus. No injection or drainage. ENT: Nose without bleeding. Throat without erythema. Uvula midline. Airway patent. NECK: Trachea midline. Tracheostomy in place. CARDIOVASCULAR: Regular rate and rhythm without murmurs, gallops, or rubs. RESPIRATORY: Few rhonchi. Coarse breath sounds. GASTROINTESTINAL: Abdomen soft, non-tender, nondistended. Bowel sounds active 4. PEG in place. Loose stools noted, patient with rectal tube-maylin shield. : Estrella draining clear yellow urine. MUSCULOSKELETAL: Extremities without clubbing, cyanosis, generalized +1 edema nonpitting. NEUROLOGICAL: Awake and alert. Nonverbal. Intermittent following commands. Tracking noted. Laboratory Date/Time Procedure Status Source Growth 11/07/16 19:35 Urine Culture - Final Complete Urine Catheterized Urine Rossy Albicans Result Diagram: 11/06/16 0532 11/06/16 0428 Imaging Last Impressions Chest X-Ray 11/08/16 0600 Signed Impressions: Service Date/Time: Tuesday, November 08, 2016 05:50 - CONCLUSION: No significant change has occurred. Hussein Miller MD Lower Extremity Ultrasound 10/27/16 0000 Signed Impressions: Service Date/Time: Thursday, October 27, 2016 10:13 - CONCLUSION: No DVT either lower extremity. 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 MD Head CT 10/23/16 0000 Signed Impressions: Service Date/Time: Sunday, October 23, 2016 11:21 - CONCLUSION: 1. Examination quality is degraded by motion artifact. There is decreased midline shift, currently measuring 3 mm compared to 6 mm on the prior study. 2. There are persistent hemorrhagic contusions in the right frontal lobe but they are less well-visualized today either related to interval improvement or related to motion artifact. Red Arenas MD Chest CT 10/23/16 0000 Signed Impressions: Service Date/Time: Sunday, October 23, 2016 11:24 - CONCLUSION: 1. Airspace consolidation within the left upper lobe. This could represent an infectious process. 2. Small bilateral pleural effusions with associated compressive atelectasis in the lower lobes. Red Arenas MD Abdomen/Pelvis CT 10/23/16 0000 Signed Impressions: Service Date/Time: Sunday, October 23, 2016 11:27 - CONCLUSION: 1. No acute finding is identified within the abdomen or pelvis. 2. Anasarca. 3. Stable 7 mm nodule on the left adrenal gland. Small size favors a benign process but is incompletely characterized on this examination. Red Arenas MD Neck CTA 10/12/16 0000 Signed Impressions: Service Date/Time: Wednesday, October 12, 2016 09:27 - CONCLUSION: Mild atherosclerotic changes in the proximal portions of both internal carotid arteries but no significant stenosis. Dez Petersen MD Head CTA 10/12/16 0000 Signed Impressions: Service Date/Time: Wednesday, October 12, 2016 09:27 - CONCLUSION: No evidence of acute vascular injury Red Hoffman MD Pelvis X-Ray 10/11/16 1213 Signed Impressions: Service Date/Time: Tuesday, October 11, 2016 12:02 - CONCLUSION: Satisfactory trauma pelvis appearance. Red Hoffman MD Cervical Spine CT 10/11/16 1213 Signed Impressions: Service Date/Time: Tuesday, October 11, 2016 12:19 - CONCLUSION: Occipital skull fracture. No evidence of acute traumatic injury in the cervical spine Red Hoffman MD Assessment and Plan Problem List: (1) Encephalopathy ICD Code: G93.40 Status: Acute (2) Pneumonia ICD Code: J18.9 Status: Acute (3) SAH (subarachnoid hemorrhage) ICD Code: I60.9 Status: Acute (4) Major neurocognitive disorder as late effect of traumatic brain injury with behavioral disturbance ICD Code: S06.9X9S Status: Acute (5) Traumatic brain injury ICD Code: S06.9X9A Status: Acute (6) Subdural hemorrhage following injury ICD Code: S06.5X9A Status: Acute (7) Fracture of occipital bone of skull with loss of consciousness ICD Code: S02.119A Status: Acute (8) Hepatitis C antibody positive in blood ICD Code: R76.8 Status: Acute (9) Rash ICD Code: R21 Status: Acute Assessment and Plan Patient is a 56-year-old male who came to the hospital on 10/11/16 as a trauma patient. As per report, patient was on a ladder and fell approximately 10 feet. Bystander on the scene perform CPR for approximately 2 minutes stating the patient was blue. On EMS arrival patient is reported to have a GCS of 6, which improved at the time of ED arrival to GCS of 11. Imaging studies showed occipital fracture subdural and subarachnoid hemorrhage. The patient developed worsening agitation he was intubated and placed on mechanical ventilation. Repeat CT in 24 hours showed worsening of bilateral subdural subarachnoid hemorrhage with right temporal parietal subdural hemorrhage with 9 mL leftward midline shift. S/P Craniotomy and drain. Pt. now on tracheostomy and PEG tube placed. Consulted for transfer of care. Trauma, status post fall from a ladder Skull fracture, occipital Subarachnoid hemorrhage Subdural hemorrhage Status post craniotomy Encephalopathy - Neurosurgery. Neurology following - Rehabilitation medicine following. - Continue Keppra, valproic acid. - Seizure precaution - Continue physical therapy occupational therapy, deconditioning Tracheostomy Pneumonia, HCAP vs. Aspiration pneumonia, possibly S. Aureus/ Anaerobes - Leukocytosis continues WBC 13.0, improving. Reviewed chest xray - there is a right lower lobe opacity which could possible represent aspiration. - 11/04/16 Chest x-ray showed patchy right lung base opacity nonspecific. repeat chest x-ray showed no significant changes occurred. - Continue pulmonary toileting. - Neb treatments - Pulmonology following input appreciated. - Plan to wean off tracheostomy. Currently on trach collar FiO2 28% - Suction when necessary - Aspiration precaution - Start levaquin and flagyl IV for now. HTN - Continue medication Lasix 40 mg daily, propranolol 20 mg every 6 hours, clonidine 0.3 every 8 hours, labetalol when necessary. - Monitor BP trend PEG in place - [facility] - Monitor for aspiration risk Diarrhea - On the maylin shield - Hold off bowel regimen. - Check stool for C. difficile Hepatitis C - Positive hep C serology - GI consulted. Input appreciated Urinary tract infection - UA positive - Culture showed Rossy albicans less than 10,000 - Catheter care, may switch over to condom catheter. Continue betty-care. EtOH, abuse - Folic acid, thiamine DVT prop Lovenox Written by Junior Johnson, acting as scribe for Dr. Garza on 11/09/16 at 13:20. All or portions of this note were transcribed by TESSA Mora . I, Dr. Shan Garza personally performed the history, physical exam, and medical decision making; and confirmed the accuracy of the information in the transcribed note. Authenticated by Dr. Shan Garza on 11/09/16 at 16:15. Code Status Alternative code Discussed Condition With Patient, nursing Problem Qualifiers (1) Traumatic brain injury: (2) Subdural hemorrhage following injury: Qualified Code: S06.5X1A - Traumatic subdural hemorrhage with loss of consciousness of 30 minutes or less, initial encounter (3) Fracture of occipital bone of skull with loss of consciousness: Qualified Code: S02.119A - Fracture of occipital bone of skull with loss of consciousness, closed, initial encounter Junior Blum Nov 09, 2016 12:57 pm Ayse Garza DO Nov 09, 2016 4:19 pm
[2016-11-09] MEDS: LEVOFLOXACIN 750 MG PREMIX INJ 150 ML IV SCH (13:46)
--- NOTE | 2016-11-09 14:34 | HHI.HCPN ---
Reason for visit a. To assist with evaluation and management of symptoms including: encephalopathy; weakness; dysphagia, pain b. To assist medical decision maker(s) with: better understanding of current medical conditions; weighing benefits/burdens of medical treatment options; making medical treatment decisions. . (Татьяна Hauser) Subjective/Interval History Patient seen and assessed in room 1317. Patient is awake and alert, intermittently tracks with eyes. Patient will occasionally nod/shake head in response to yes/no questions. He remains nonverbal and does not follow commands. No spontaneous movement was appreciated at the time of my exam. Respirations are unlabored with scattered rales status post tracheostomy; on 5L oxygen via T-piece with oxygen saturation in the 90s. Follow-up chest x-ray on 11/08/16 showed persistent parenchymal opacity in the right lung base, left lung is clear. Heart and mediastinal contours are normal. No significant change has occurred in comparison to previous imaging. Pulmonology was consulted for tracheostomy management. Afebrile. Persistent leukocytosis, most recent WBC 13.0. Urine culture on growing Rossy Albicans. Speech therapy continues to follow patient who remains NPO secondary to severe profound cognitivecommunicative deficits. PEG tube site C/D/I. Patient tolerating Jevity 1.5 at 65ml/hour via PEG tube. . (Татьяна Hauser) Advance Directives Living Will: Never completed Health Care Surrogate: Never completed Durable Power of Group Chief Operator: Never completed (Татьяна Hauser) Advance Directive Specifics Date completed: Advanced directives were never completed. . Health Care Surrogate(s): There is no written designation of a health care surrogate. . Documented care wishes: No written documentation of health care preferences/goals/wishes . (Татьяна Hauser) Objective Vital Signs Date Time Temp Pulse Resp B/P Pulse Ox O2 Delivery O2 Flow Rate FiO2 11/09/16 12:00 96.9 95 21 149/80 94 11/09/16 10:34 96 T-Piece 28 11/09/16 09:26 96 T-piece 5.00 28 11/09/16 08:00 98.2 90 21 141/76 95 11/09/16 04:35 99.4 101 20 126/71 97 11/09/16 02:00 93 T-Piece 28 11/08/16 23:58 99.0 93 18 110/63 93 11/08/16 22:36 92 11/08/16 20:40 92 T-piece 5.00 28 11/08/16 20:07 98.3 86 18 138/78 94 11/08/16 16:00 98.6 85 25 103/61 91 Intake & Output 11/09/16 11/09/16 07:00 19:00 Intake Total 1080 ml Output Total 1100 ml Balance -20 ml Tube Feeding 780 ml Other 300 ml Output Urine Total 1100 ml . Physical Exam CONSTITUTIONAL/GENERAL: This is an adequately nourished patient status post trach/PEG tube placement, in no acute distress. TUBES/LINES/DRAINS: Tracheostomy; Gann catheter; PIV x 2, SCDs, PEG, Fecal tube , Podus. SKIN: Right craniotomy surgical incision healing. HEAD: S/p craniotomy, right skull flap is soft. EYES: Pupils equal, reactive and sluggish. No scleral icterus. No injection or drainage. Fundi not examined. ENT: Nose without bleeding or purulent drainage. NECK: Trachea midline. Tracheostomy patent, site without S/S infection, to T- piece. CARDIOVASCULAR: HR 85-101.. No murmurs, gallops, or rubs. RESPIRATORY/CHEST: Tracheostomy to T-piece. Bilateral breath sounds are diminished. GASTROINTESTINAL: Abdomen rounded. BS active x 4. Flex seal in place. Tolerating tube feedings, PEG tube site appears healthy. GENITOURINARY: Without palpable bladder distension. Gann catheter in place. MUSCULOSKELETAL: Extremities without clubbing, cyanosis. No mottling or clubbing. NEUROLOGICAL: Patient is awake, intermittently tracking with eyes. Occasionally nods/shakes head to yes/no questions. Does not follow commands, no spontaneous movement observed. PSYCHIATRIC: Does not appear to be experiencing anxiety/agitation. . . (Татьяна Hauser) Diagnostic Tests Laboratory Laboratory Tests Test 11/07/16 19:35 Urine Color YELLOW (YELLW/STRAW) Urine Turbidity HAZY (CLEAR) Urine pH 6.5 (5.0-8.5) Urine Specific [place] 1.026 (1.002-1.035) Urine Protein 100 mg/dL (NEG-TRACE) Urine Glucose (UA) NEG mg/dL (NEG) Urine Ketones TRACE mg/dL (NEG) Urine Occult Blood SMALL (NEG) Urine Nitrite NEG (NEG) Urine Bilirubin NEG (NEG) Urine Urobilinogen 4.0 MG/DL (LESS THAN 2.0) Urine Leukocyte Esterase MOD (NEG) Urine RBC 43 /hpf (0-3) Urine WBC 49 /hpf (0-5) Urine Bacteria RARE /hpf (NONE) Urine Mucus FEW /lpf (OCC) Microscopic Urinalysis Comment CATH-CULTURE IND . (Татьяна Hauser) Result Diagram: 11/06/16 0532 11/06/16 0428 Microbiology Microbiology Date/Time Procedure Status Source Growth 11/07/16 19:35 Urine Culture - Final Complete Urine Catheterized Urine Rossy Albicans . Imaging Last 72 hours Impressions Chest X-Ray 11/08/16 0600 Signed Impressions: Service Date/Time: Tuesday, November 08, 2016 05:50 - CONCLUSION: No significant change has occurred. Hussein Miller MD . Procedures * Mccrory hole with ICP monitor placed * Right craniectomy * Art line placement * Intubation/mechanical ventilation * Central line placement. * Tracheostomy * Peg tube . (Татьяна Hauser) Assessment and Plan Disease Oriented Problem List: (1) Traumatic brain injury (2) SAH (subarachnoid hemorrhage) (3) Subdural hemorrhage following injury (4) Fracture of occipital bone of skull with loss of consciousness (5) Encephalopathy acute (6) Alcohol dependence Comment: Long history of 12-15 drinks per day. . (7) Major neurocognitive disorder as late effect of traumatic brain injury with behavioral disturbance (8) Seizure (9) Pneumonia Comment: Probable aspiration. Blood in vomitus were in airway immediately after fall. . (10) Hepatitis C antibody positive in blood (11) Rectal bleeding Comment: Has had years of abdominal pain with intermittent rectal bleeding. Has avoided recommended work-up due to lack on insurance, lack of funds, and fear of results (per shasta). . Symptom Scale: (1) Pain 0-10 Scale: Unable to quantify Comment: Per review of notes: Patient had history of several pain syndromes. He complained of abdominal pain for years with occasional rectal bleeding. He also complained of right ankle pain where he had surgery and achiness in multiple joints. He would use BC powders several times a day and occasionally hydrocodone. Other current sources of pain might include prolonged bedbound status, post op wound/head pain, discomfort from trach/gann/OG/vascular access lines. Orders are in place for PRN oxycodone at this time. These appear to be adequate, no requirements in the past 24 hours. No further recommendations at this time. . (2) Encephalopathy 0-10 Scale: Unable to quantify Comment: This has been multi-factorial and has involved the brain injury, alcohol withdrawal, infection, seizure, etc. Current encephalopathy now mostly due to brain injury, persists off sedation. No noted neurological changes in the past 24 hours. He arouses to verbal and light tactile stimuli. Patient did not follow commands during my exam, nor did I observe any spontaneous movement of extremities. Follow-up EEG on 11/03/16 has significantly improved in comparison to prior reports. No epileptiform features were present. Patient remains on Valproate and Keppra for seizure management. (3) Dyspnea Comment: Respirations are unlabored with scattered rales status post tracheostomy; on 5L oxygen via T-piece with oxygen saturation in the 90s. Follow-up chest x-ray on 11/08/16 showed persistent parenchymal opacity in the right lung base, left lung is clear. Heart and mediastinal contours are normal. No significant change has occurred in comparison to previous imaging. Pulmonology was consulted for tracheostomy management. . (4) Dysphagia Comment: Speech therapy continues to follow patient who remains NPO secondary to severe profound cognitivecommunicative deficits. PEG tube site C/D/I. Patient tolerating Jevity 1.5 at 65ml/hour via PEG tube. . Pertinent Non-Medical Issues Psychosocial: Social support consists of shasta, brother, sister and friend - - Patricio Oleary. Spiritual: Alevism background. Scientologist and spirituality have not played an important role in his life. Shasta appreciates belt glass sander visits. Legal: No advance directives. Without a designated health care surrogate, decision-making appears to fall to the majority of his siblings. Ethical issues impacting care: Patient is incapacitated to make his own health care decisions. It is unclear if/when he will regain capacity. . Important Contacts * Brandy Workman (spouse) [phone] or [phone] * Amanda "Manuela"branch (sister) - [facility] proxy: * Perez Schroeder" (brother) [phone] * Amanda "Jamila" Ubaldo (niece) [phone] . 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 It is unclear if he had some sort of event causing the fall (he had vomitus and blood in his airway at time of fall) or merely fell. His injuries include occipital bone fracture, SDH, SAH. Complications include EtOH withdrawal, aspiration pneumonia. He has had high ICPs and ultimately underwent right sided craniectomy for decompression. He has had seizure activity. There has been little evidence so far of meaningful neurological recovery. Neurosurgery feels there continues to be a reasonable chance of meaningful neurologic recovery (though it will take a lot of time) and is recommending ongoing aggressive care. . Code Status: Alternative Code (Intubation only) Plan == Code Status: FULL CODE == Decision making: Mr. Nixon is incapacitated to make his own health care decisions and it is unclear if/when he will regain capacity. Patient is not legally , has no children, and the parents who adopted him are . Under the [place] Statutes, decision making would fall to the patient's adoptive siblings -- Amanda and Demarco. Demarco has agreed to defer decision making to Amanda so AMANDA IS THE OFFICIAL PROXY DECISION MAKER per my phone conversation with Demarco on 10/26/16 at 13:25. The patient's fiancee -- Brandy Workman -- has no decision making authority, but the siblings are including her in the conversations. == Goals of medical treatment: Goals remain aggressive, hopeful patient will be placed in a SNF for rehabiliatation == Status post tracheostomy on 10/28/16 and PEG tube placement on 10/29/16. == Encephalopathy: This has been multi-factorial and has involved the brain injury, alcohol withdrawal, infection, seizure, etc. Current encephalopathy now mostly due to brain injury, persists off sedation. No noted neurological changes in the past 24 hours. He arouses to verbal and light tactile stimuli. Patient did not follow commands during my exam, nor did I observe any spontaneous movement of extremities. Follow-up EEG on 11/03/16 has significantly improved in comparison to prior reports. No epileptiform features were present. Patient remains on Valproate and Keppra for seizure management. Ranchos III. == Pain: Patient had history of several pain syndromes. He complained of abdominal pain for years with occasional rectal bleeding. He also complained of right ankle pain where he had surgery and achiness in multiple joints. He would use BC powders several times a day and occasionally hydrocodone. Other current sources of pain might include prolonged bedbound status, post op wound/ head pain, discomfort from trach/gann/OG/vascular access lines. Orders are in place for PRN oxycodone at this time. These appear to be adequate, no requirements the past 24 hours No further recommendations at this time. == Dyspnea: Respirations are unlabored with scattered rales status post tracheostomy; on 5L oxygen via T-piece with oxygen saturation in the 90s. Follow-up chest x-ray on 11/08/16 showed persistent parenchymal opacity in the right lung base, left lung is clear. Heart and mediastinal contours are normal. No significant change has occurred in comparison to previous imaging. Pulmonology was consulted for tracheostomy management. == Dysphagia: Speech therapy continues to follow patient who remains NPO secondary to severe profound cognitivecommunicative deficits. PEG tube site C/D /I. Patient tolerating Jevity 1.5 at 65ml/hour via PEG tube. == Palliative care will continue to follow to assist with symptom management and to further clarify goals of medical treatment as the clinical course evolves. . (Татьяна Hauser) Attestation To help prompt me to consider important information that might be impacting today's encounter and assessment, information from prior notes written by myself or my colleagues may have been "brought forward" into today's note. My signature on this note, however, is an attestation that I personally performed the exam, history, and/or decision-making noted today, and, unless otherwise indicated, the interactions with patient, family, and staff as well as the review of records all occurred today. I also attest that the listed assessment and stated plan reflect my best clinical judgment today based on the combination of historical information, prior notes, and today's exam/ interactions. When time spent is documented, it refers only to time spent today by the signer, or if indicated, combined time spent today by collaborating physician/nurse practitioner. . (Татьяна Hauser) Collaborating MD Comments . Chart reviewed. Cased discussed with palliative care CHILD PSYCHOLOGY TEACHER. Above CHILD PSYCHOLOGY TEACHER note reviewed and I concur. . (Hayden Oviedo MD) Татьяна Hauser Nov 09, 2016 14:24 Hayden Oviedo MD January 17, 2017 14:28
[2016-11-09] MEDS: metroNIDAZOLE 500 MG INJ 100 ML IV SCH ×2 (15:30→23:04)
[2016-11-09] MEDS: RESP: ALBUTEROL 2.5 MG/IPRATROPIUM 0.5 MG NEB (PRN) NEB (16:28)
--- NOTE | 2016-11-09 18:27 | RADRPT ---
EXAM DATE/TIME: 11/09/2016 17:22 [facility] COMPARISON: CHEST SINGLE AP, November 08, 2016, 5:50. INDICATIONS : Tracheostomy placement. MEDICAL HISTORY : None. SURGICAL HISTORY : Craniotomy. Tracheostomy ENCOUNTER: Subsequent ACUITY: 2 weeks PAIN SCORE: Non-responsive. LOCATION: Bilateral chest FINDINGS: A tracheostomy tube is noted in good position well above the fan. There is patchy opacity within the right lung base consistent with probable pneumonia. The left lung is clear. The heart is normal . There is elevation of the right hemidiaphragm. CONCLUSION: Right basilar patchiness consistent with probable pneumonia. Clinical correlation is recommended. Jose James MD on November 09, 2016 at 18:18 Board Certified Radiologist. This report was verified electronically.
--- NOTE | 2016-11-09 19:45 | HHI.PR ---
Subjective Remarks 56 YOWM with Fall,ICH,ventriculostomy RF, has trach RT had problom advancing cathetor has lot of secretions Sat 95% Objective Vital Signs Vital Signs Date Time Temp Pulse Resp B/P Pulse Ox O2 Delivery O2 Flow Rate FiO2 11/09/16 16:00 98.9 96 22 137/78 96 11/09/16 14:53 108 11/09/16 12:00 96.9 95 21 149/80 94 11/09/16 10:34 96 T-Piece 28 11/09/16 09:26 96 T-piece 5.00 28 11/09/16 08:00 98.2 90 21 141/76 95 11/09/16 04:35 99.4 101 20 126/71 97 11/09/16 02:00 93 T-Piece 28 11/08/16 23:58 99.0 93 18 110/63 93 11/08/16 22:36 92 11/08/16 20:40 92 T-piece 5.00 28 11/08/16 20:07 98.3 86 18 138/78 94 I/O 11/08/16 11/08/16 11/08/16 11/09/16 11/09/16 11/09/16 07:00 15:00 23:00 07:00 15:00 23:00 Intake Total 1080 ml Output Total 675 ml 1100 ml 2925 ml Balance -675 ml -20 ml -2925 ml Tube Feeding 780 ml Other 300 ml Output Urine Total 650 ml 1100 ml 2900 ml Stool Total 25 ml 25 ml # Voids 0 # Bowel Movements 0 Result Diagram: 11/06/16 0532 11/06/16 0428 Objective Remarks GENERAL: WBWN male, On Trach SKIN: Warm and dry. HEAD: Normocephalic. EYES: No scleral icterus. No injection or drainage. NECK: Supple, trachea midline. No JVD or lymphadenopathy. trach in place CARDIOVASCULAR: Regular rate and rhythm without murmurs, gallops, or rubs. RESPIRATORY: Breath sounds equal bilaterally. No accessory muscle use. GASTROINTESTINAL: Abdomen soft, non-tender, nondistended. PEG in place MUSCULOSKELETAL: No cyanosis, or edema. BACK: Nontender without obvious deformity. No CVA tenderness. A/P Assessment and Plan RF. s/p Trach s/P Ventriculostomy PEG placement PLAN: ATUL Arndt, he is conatcting , to see if trach needs repositioning Aerosol nebs SQ Lovenox TF Murphy Cm MD Nov 09, 2016 19:45
[2016-11-09 21:11] LABS: C. DIFF EPI 027 PRESUMPTIVE NEGATIVE (NEGATIVE); C. DIFF TOXIN PCR NEGATIVE (NEGATIVE)
[2016-11-09] MEDS: DEXTROSE 5% IV SCH ×2 (21:39)
[2016-11-09] MEDS: THIAMINE IV SCH ×2 (21:39)
[2016-11-09] MEDS: WATER IV SCH ×2 (21:39)
[2016-11-10] VITALS (13 sets, daily range): BP systolic 120–180; BP diastolic 76–99; PULSE 87–114; RESP 21–26; TEMP 97.1–98.8; O2SAT 92–98
[2016-11-10] MEDS: RESP: ALBUTEROL 2.5 MG/IPRATROPIUM 0.5 MG NEB (PRN) NEB (00:03)
[2016-11-10] MEDS: CHLORHEXIDINE GLUCONATE 2 % 1 PACK (2 CLOTHS) TOP SCH (03:12)
[2016-11-10] MEDS: metroNIDAZOLE 500 MG INJ 100 ML IV SCH ×3 (03:28→15:16)
[2016-11-10] MEDS: PROPRANOLOL HCL 20 MG TAB PO SCH ×3 (05:12→18:14)
[2016-11-10] MEDS: cloNIDine HCL 0.3 MG TAB PO SCH ×2 (05:12→14:17)
[2016-11-10 07:36] LABS: AUTOMATED NEUTROPHIL # 10.7 TH/MM3 (1.8-7.7); BASOPHIL # 0.1 TH/MM3 (0-0.2); BASOPHIL % 0.9 % (0.0-2.0); EOSINOPHIL # 0.4 TH/MM3 (0-0.4); EOSINOPHIL % 2.9 % (0.0-4.0); HEMATOCRIT 28.7 % (39.0-51.0); LYMPH % 7.2 % (9.0-44.0); MEAN CELL VOLUME 92.9 FL (80.0-100.0); MEAN CORPUSCULAR HEMOGLOBIN 31.7 PG (27.0-34.0); MEAN CORPUSCULAR HGB CONC 34.1 % (32.0-36.0); MONO % 14.6 % (0.0-8.0); NEUT % 74.4 % (16.0-70.0); PLATELET COUNT 476 TH/MM3 (150-450); RED BLOOD COUNT 3.09 MIL/MM3 (4.50-5.90); RED CELL DISTRIBUTION WIDTH 13.8 % (11.6-17.2); WHITE BLOOD COUNT 14.5 TH/MM3 (4.0-11.0)
[2016-11-10 07:42] LABS: HEMO FLAGS AUTO DIFF
[2016-11-10] MEDS: CHLORHEXIDINE 0.12% (ORAL KIT) 15 ML CUP MT SCH ×2 (08:00→20:00)
[2016-11-10 08:08] LABS: BICARBONATE 33.6 MEQ/L (21.0-32.0); POTASSIUM 4.2 MEQ/L (3.5-5.1)
[2016-11-10] MEDS ORDERED: POLYETHYLENE GLYCOL 17 GM PKG PO PRN (09:00)
[2016-11-10] MEDS ORDERED: LACTULOSE SYRUP 20 GM/30 ML CUP PO PRN (09:00)
[2016-11-10] MEDS ORDERED: SENNOSIDES SYRUP 8.8 MG/5 ML CUP PO/NG PRN (09:00)
[2016-11-10 09:29] LABS: BANDS 15 % (0-6); EOSINOPHILS 1 % (0-4); METAMYELOCYTES 1 % (0-1); MYELOCYTES 2 % (0-0); NEUTROPHIL # MANUAL DIFF 11.9 TH/MM3 (1.8-7.7); POLYS (SEG NEUTROPHILS) 64 % (16-70); WBC DIFF SAMPLE 100
[2016-11-10 09:30] LABS: PLATELET ESTIMATE SMEAR HIGH (NORMAL); PLATELET MORPHOLOGY NORMAL (NORMAL)
[2016-11-10 09:31] LABS: SCAN/DIFF FINAL DIFF MANUAL; TOXIC GRANULATION 1+ (NORMAL)
[2016-11-10] MEDS: SODIUM CHLORIDE 0.9% FLUSH 5 ML FLUSH IVF SCH (09:36)
[2016-11-10] MEDS: PANTOPRAZOLE SODIUM 40 MG VIAL IVP SCH (09:36)
[2016-11-10] MEDS: levETIRAcetam 500 MG/5 ML UDC TUBE SCH (09:37)
[2016-11-10] MEDS: POTASSIUM CHLORIDE 25 MEQ EFFERVESCENT TAB TUBE SCH (09:37)
[2016-11-10] MEDS: DOCUSATE SODIUM 100 MG CAP PO SCH ×2 (09:37→21:00)
[2016-11-10] MEDS: MULTIVITAMIN TAB PO SCH (09:38)
[2016-11-10] MEDS: FOLIC ACID 1 MG TAB PO SCH (09:38)
[2016-11-10] MEDS: FUROSEMIDE 40 MG/4 ML VIAL IV PUSH SCH (09:39)
--- NOTE | 2016-11-10 09:40 | HHI.PR ---
Subjective Remarks Follow-up visit pneumonia, trauma status post fall, subdural subarachnoid hemorrhage. S/P trach and PEG. Patient seen today. Awake and alert. Eyes opening, mouthing words. Intermittently follows some commands. Tracheostomy in place on trach collar 28%. Appears comfortable. Objective Vitals Vital Signs Date Time Temp Pulse Resp B/P Pulse Ox O2 Delivery O2 Flow Rate FiO2 11/10/16 05:09 95 T-piece 28 11/10/16 04:37 98.8 114 22 170/92 97 11/10/16 02:29 100 11/10/16 00:38 98.6 96 24 139/93 93 11/10/16 00:10 98 T-piece 28 11/09/16 23:52 93 T-piece 28 11/09/16 21:09 96 T-Piece 28 11/09/16 20:09 99.7 98 22 167/97 94 11/09/16 16:00 98.9 96 22 137/78 96 11/09/16 14:53 108 11/09/16 12:00 96.9 95 21 149/80 94 11/09/16 10:34 96 T-Piece 28 I/O 11/09/16 11/09/16 11/09/16 11/10/16 11/10/16 11/10/16 07:00 15:00 23:00 07:00 15:00 23:00 Intake Total 1080 ml 100 ml 1150 ml Output Total 1100 ml 2925 ml 750 ml Balance -20 ml -2925 ml 100 ml 400 ml IV Total 310 ml Tube Feeding 780 ml 780 ml Other 300 ml 100 ml 60 ml Output Urine Total 1100 ml 2900 ml 750 ml Stool Total 25 ml Bladder Scan Volume Amount 675 ml 675 ml # Bowel Movements 1 Result Diagram: 11/10/16 0716 11/10/16 0716 Imaging Last Impressions Chest X-Ray 11/09/16 0000 Signed Impressions: Service Date/Time: Wednesday, November 09, 2016 17:22 - CONCLUSION: Right basilar patchiness consistent with probable pneumonia. Clinical correlation is recommended. Jose James MD Lower Extremity Ultrasound 10/27/16 0000 Signed Impressions: Service Date/Time: Thursday, October 27, 2016 10:13 - CONCLUSION: No DVT either lower extremity. 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 MD Head CT 10/23/16 0000 Signed Impressions: Service Date/Time: Sunday, October 23, 2016 11:21 - CONCLUSION: 1. Examination quality is degraded by motion artifact. There is decreased midline shift, currently measuring 3 mm compared to 6 mm on the prior study. 2. There are persistent hemorrhagic contusions in the right frontal lobe but they are less well-visualized today either related to interval improvement or related to motion artifact. Red Arenas MD Chest CT 10/23/16 0000 Signed Impressions: Service Date/Time: Sunday, October 23, 2016 11:24 - CONCLUSION: 1. Airspace consolidation within the left upper lobe. This could represent an infectious process. 2. Small bilateral pleural effusions with associated compressive atelectasis in the lower lobes. Red Arenas MD Abdomen/Pelvis CT 10/23/16 0000 Signed Impressions: Service Date/Time: Sunday, October 23, 2016 11:27 - CONCLUSION: 1. No acute finding is identified within the abdomen or pelvis. 2. Anasarca. 3. Stable 7 mm nodule on the left adrenal gland. Small size favors a benign process but is incompletely characterized on this examination. Red Arenas MD Neck CTA 10/12/16 0000 Signed Impressions: Service Date/Time: Wednesday, October 12, 2016 09:27 - CONCLUSION: Mild atherosclerotic changes in the proximal portions of both internal carotid arteries but no significant stenosis. Dez Petersen MD Head CTA 10/12/16 0000 Signed Impressions: Service Date/Time: Wednesday, October 12, 2016 09:27 - CONCLUSION: No evidence of acute vascular injury Red Hoffman MD Pelvis X-Ray 10/11/16 1213 Signed Impressions: Service Date/Time: Tuesday, October 11, 2016 12:02 - CONCLUSION: Satisfactory trauma pelvis appearance. Red Hoffman MD Cervical Spine CT 10/11/16 1213 Signed Impressions: Service Date/Time: Tuesday, October 11, 2016 12:19 - CONCLUSION: Occipital skull fracture. No evidence of acute traumatic injury in the cervical spine Red Hoffman MD Objective Remarks GENERAL: This is a well-nourished, well-developed patient, in no apparent distress. SKIN: Warm and dry. The craniotomy site CDI. Notable erythematous maculopapular rash bilateral upper extremity. HEAD: Craniotomy site CDI. EYES: Pupils equal round and reactive. No scleral icterus. No injection or drainage. ENT: Nose without bleeding. Throat without erythema. Uvula midline. Airway patent. NECK: Trachea midline. Tracheostomy in place. CARDIOVASCULAR: Regular rate and rhythm without murmurs, gallops, or rubs. RESPIRATORY: Few rhonchi. Coarse breath sounds. GASTROINTESTINAL: Abdomen soft, non-tender, nondistended. Bowel sounds active 4. PEG in place. Loose stools noted, patient with rectal tube-maylin shield. : Condom cath in place. MUSCULOSKELETAL: Extremities without clubbing, cyanosis, generalized +1 edema nonpitting. NEUROLOGICAL: Awake and alert. Nonverbal. Intermittent following commands. Tracking noted. Date of Insertion: Oct 11, 2016 A/P Problem List: (1) Encephalopathy ICD Code: G93.40 Status: Acute (2) Pneumonia ICD Code: J18.9 Status: Acute (3) SAH (subarachnoid hemorrhage) ICD Code: I60.9 Status: Acute (4) Major neurocognitive disorder as late effect of traumatic brain injury with behavioral disturbance ICD Code: S06.9X9S Status: Acute (5) Traumatic brain injury ICD Code: S06.9X9A Status: Acute (6) Subdural hemorrhage following injury ICD Code: S06.5X9A Status: Acute (7) Fracture of occipital bone of skull with loss of consciousness ICD Code: S02.119A Status: Acute (8) Hepatitis C antibody positive in blood ICD Code: R76.8 Status: Acute (9) Rash ICD Code: R21 Status: Acute Assessment and Plan Patient is a 56-year-old male who came to the hospital on 10/11/16 as a trauma patient. As per report, patient was on a ladder and fell approximately 10 feet. Bystander on the scene perform CPR for approximately 2 minutes stating the patient was blue. On EMS arrival patient is reported to have a GCS of 6, which improved at the time of ED arrival to GCS of 11. Imaging studies showed occipital fracture subdural and subarachnoid hemorrhage. The patient developed worsening agitation he was intubated and placed on mechanical ventilation. Repeat CT in 24 hours showed worsening of bilateral subdural subarachnoid hemorrhage with right temporal parietal subdural hemorrhage with 9 mL leftward midline shift. S/P Craniotomy and drain. Pt. now on tracheostomy and PEG tube placed. Consulted for transfer of care. Trauma, status post fall from a ladder Skull fracture, occipital Subarachnoid hemorrhage Subdural hemorrhage Status post craniotomy Encephalopathy - Neurosurgery. Neurology following - Rehabilitation medicine following. - Continue Keppra, valproic acid. - Seizure precaution - Continue physical therapy occupational therapy, deconditioning Tracheostomy Pneumonia, HCAP vs. Aspiration pneumonia, possibly S. Aureus/ Anaerobes - Leukocytosis continues WBC 13.0 --> 14.5 - Reviewed chest xray repeat 11/10/16- Right basilar patchiness consistent with probable pneumonia. Likely aspiration pneumonia. - 11/04/16 Chest x-ray showed patchy right lung base opacity nonspecific. repeat chest x-ray showed no significant changes occurred. - Continue pulmonary toileting. - Neb treatments - Pulmonology following input appreciated. - Plan to wean off tracheostomy. Currently on trach collar FiO2 28% - Suction when necessary. Oral and trach care. - Aspiration precaution. - Continue Levaquin and Flagyl IV for now. HTN - Continue medication Lasix 40 mg daily, propranolol 20 mg every 6 hours, clonidine 0.3 every 8 hours, labetalol when necessary. - Monitor BP trend PEG in place - [facility] - Monitor for aspiration risk Diarrhea - On the maylin shield - Hold off bowel regimen. - C. difficile negative Hepatitis C - Positive hep C serology - GI follow up as an outpatient. Urinary tract infection - UA positive - Culture showed Rossy albicans less than 10,000 - Switched to condom catheter. Continue betty-care. EtOH, abuse - Folic acid, thiamine DVT prop Lovenox Alternative Code:Intubation Written by Junior Johnson, acting as scribe for Dr. Garza on 11/10/16 at 09:39. All or portions of this note were transcribed by TESSA Mora. I, Dr. Shan Garza personally performed the history, physical exam, and medical decision making; and confirmed the accuracy of the information in the transcribed note. Authenticated by Dr. Shan Garza on 11/11/16 at 00:14. Discharge Planning No pain or source. Awaiting pending SSI. Case management aware of need for placement. Problem Qualifiers (1) Traumatic brain injury: (2) Subdural hemorrhage following injury: Qualified Code: S06.5X1A - Traumatic subdural hemorrhage with loss of consciousness of 30 minutes or less, initial encounter (3) Fracture of occipital bone of skull with loss of consciousness: Qualified Code: S02.119A - Fracture of occipital bone of skull with loss of consciousness, closed, initial encounter Junior Blum Nov 10, 2016 09:40 Ayse Garza DO Nov 11, 2016 00:14
[2016-11-10] MEDS: ENOXAPARIN SODIUM 40 MG/0.4 ML SYRINGE SQ SCH (11:02)
[2016-11-10] MEDS: VALPROATE INJ 1,000 MG in SODIUM CHLORIDE 0.9% INJ 100 ML IV SCH (11:02)
[2016-11-10] MEDS: amLODIPine BESYLATE 5 MG TAB PO SCH (11:30)
[2016-11-10] MEDS ORDERED: LABETALOL HCL 100 MG/20 ML VIAL IV PUSH PRN (12:00)
--- NOTE | 2016-11-10 12:42 | HHI.PR ---
Neuropsych Emotional Emotional: UnabletoAssess: Emotional, Anxious/Fearful, Depressed/Sad, Hostile/ Resentful, Irritable/Angry/Frustrate, Labile, Constricted/Blunted Behavior Behavior: Unable to Asses: Behavior, Coping/Acceptance, Cooperative w/ Treatment, Motivation, Frustration Tolerance/[place], Impulsive/Agitated, Suicidal/ Homicidal Risk Cognitive Cognitive: Unable to Asses: Cognitive, Attention/Concentration, Confused/ Orientation, Insight/Awareness, Judgement/Problem-Solving, Memory Progress Notes/Response to Tx Contents of Sessions: Adjustment, Level of Consciousness Time with Patient: 15 minutes Premorbid psychological status Premorbid Cognitive, Emotional and Behavioral Status: Deferred. 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 The patient has no known psychiatric difficulties. However, substance abuse history is significant for alcohol dependence and tobacco dependence. Behavioral Reactions of Patient and Family/Support System: Tenuous. The patients family has a limited understanding of the complexities of this patient 's brain injury, and the lifestyle barriers that prevent an optimal recovery. They are expected to have ongoing issues of adjustment given the nature of the injury, and this aspect of recovery will require ongoing monitoring. Emotional/Behavioral Status of Patient and Family/Support System: Tenuous. Pertinent issues, if appropriate to this patients clinical care, are described in detail above. Maximizing acute care outcome It is recommended that the patient be monitored for emergent behavioral impulsivity as the medical condition evolves. This patients neuropathological challenges may limit their rehabilitation potential going forward, and these challenges will require specialized therapeutic skills to maximize outcome. Additionally, the patients family is experiencing ongoing issues of adjustment given the traumatic nature of the injury, and they [will need / may benefit] from ongoing psychological assistance. Anticipated Problems Ongoing areas of concern could include behavioral impulsivity, lack of insight and judgment, which is expected to improve with time and treatment, provided he moves past this stage of recovery. Presently, the patient is not following commands. His long duration alcohol dependence and tobacco dependence, which has led to global cerebral atrophy, will serve as a double barrier to his recovery from this injury. Treatment Plan This clinician will continue to follow with you throughout the course of this patients rehabilitation treatment, and I will be available to meet with the patients family/support system to facilitate their understanding and the ongoing care of their family member. The goals of neuropsychological intervention shall be both educational and supportive to the family/support system as is deemed clinically appropriate. [facility] Level: III:Localized response-total assist Diagnosis: (1) Major neurocognitive disorder as late effect of traumatic brain injury with behavioral disturbance Status: Acute (2) Alcohol dependence Status: Acute Progress Note Narrative Ongoing follow-up of patient who was seen bedside. Friends of the patient were present. This patient is awake, alert and does track, although his understanding of commands told to him are unlikely being neurocognitively processed, as he responds similarly regardless of whether the commands are direct or nonsensical. He is estimated to continue to be at a [facility] III. Discussed this patient with Dr. Munson. I will continue to follow with you. Kermit Hughes PhD Nov 10, 2016 12:42 pm
[2016-11-10] MEDS: LEVOFLOXACIN 750 MG PREMIX INJ 150 ML IV SCH (14:17)
--- NOTE | 2016-11-10 19:04 | HHI.PR ---
Subjective Remarks 56 YOWM with Fall,ICH,ventriculostomy RF, has trach has lot of secretions Sat 95% Alert, awake, looks around Objective Vital Signs Vital Signs Date Time Temp Pulse Resp B/P Pulse Ox O2 Delivery O2 Flow Rate FiO2 11/10/16 17:35 94 T-piece 6.00 50 11/10/16 16:00 98.6 99 26 120/83 94 11/10/16 12:00 97.9 89 26 131/88 97 11/10/16 11:15 95 T-piece 50 11/10/16 11:02 94 Trach Collar 40 11/10/16 09:36 87 11/10/16 08:00 97.8 93 21 180/99 92 11/10/16 05:09 95 T-piece 28 11/10/16 04:37 98.8 114 22 170/92 97 11/10/16 02:29 100 11/10/16 00:38 98.6 96 24 139/93 93 11/10/16 00:10 98 T-piece 28 11/09/16 23:52 93 T-piece 28 11/09/16 21:09 96 T-Piece 28 11/09/16 20:09 99.7 98 22 167/97 94 I/O 11/09/16 11/09/16 11/09/16 11/10/16 11/10/16 11/10/16 07:00 15:00 23:00 07:00 15:00 23:00 Intake Total 1080 ml 100 ml 1150 ml Output Total 1100 ml 2925 ml 750 ml 500 ml Balance -20 ml -2925 ml 100 ml 400 ml -500 ml IV Total 310 ml Tube Feeding 780 ml 780 ml Other 300 ml 100 ml 60 ml Output Urine Total 1100 ml 2900 ml 750 ml 400 ml Stool Total 25 ml 100 ml Bladder Scan Volume Amount 675 ml 675 ml # Bowel Movements 1 Result Diagram: 11/10/1616 11/10/1616 Objective Remarks GENERAL: WBWN male, On Trach SKIN: Warm and dry. HEAD: Normocephalic. EYES: No scleral icterus. No injection or drainage. NECK: Supple, trachea midline. No JVD or lymphadenopathy. trach in place CARDIOVASCULAR: Regular rate and rhythm without murmurs, gallops, or rubs. RESPIRATORY: Breath sounds equal bilaterally. No accessory muscle use. GASTROINTESTINAL: Abdomen soft, non-tender, nondistended. PEG in place MUSCULOSKELETAL: No cyanosis, or edema. BACK: Nontender without obvious deformity. No CVA tenderness. A/P Assessment and Plan RF. s/p Trach s/P Ventriculostomy PEG placement PLAN: DW , he will see pt and evaluate soon Aerosol nebs SQ Lovenox TF Murphy Cm MD Nov 10, 2016 19:04
[2016-11-10] MEDS: DEXTROSE 5% IV SCH ×2 (23:00)
[2016-11-10] MEDS: VALPROATE IV SCH ×2 (23:00)
[2016-11-10] MEDS: WATER IV SCH ×2 (23:00)
[2016-11-11] VITALS (9 sets, daily range): BP systolic 124–140; BP diastolic 76–85; PULSE 80–95; RESP 21–24; TEMP 97.1–99.1; O2SAT 93–100
[2016-11-11] MEDS: metroNIDAZOLE 500 MG INJ 100 ML IV SCH ×5 (00:41→22:26)
[2016-11-11] MEDS: cloNIDine HCL 0.3 MG TAB PO SCH ×4 (00:42→22:28)
[2016-11-11] MEDS: SODIUM CHLORIDE 0.9% FLUSH 5 ML FLUSH IVF SCH ×3 (00:42→22:25)
[2016-11-11] MEDS: levETIRAcetam 500 MG/5 ML UDC TUBE SCH ×3 (00:42→22:25)
[2016-11-11] MEDS: PROPRANOLOL HCL 20 MG TAB PO SCH ×5 (00:45→23:37)
[2016-11-11] MEDS: CHLORHEXIDINE GLUCONATE 2 % 1 PACK (2 CLOTHS) TOP SCH (04:00)
[2016-11-11] MEDS: CHLORHEXIDINE 0.12% (ORAL KIT) 15 ML CUP MT SCH ×2 (08:00→22:46)
[2016-11-11] MEDS: FUROSEMIDE 40 MG/4 ML VIAL IV PUSH SCH (10:01)
[2016-11-11] MEDS: PANTOPRAZOLE SODIUM 40 MG VIAL IVP SCH (10:01)
[2016-11-11] MEDS: POTASSIUM CHLORIDE 25 MEQ EFFERVESCENT TAB TUBE SCH (10:02)
[2016-11-11] MEDS: THIAMINE HCL 100 MG TAB PO SCH (10:02)
[2016-11-11] MEDS: DOCUSATE SODIUM 100 MG CAP PO SCH ×2 (10:02→22:45)
[2016-11-11] MEDS: FOLIC ACID 1 MG TAB PO SCH (10:02)
[2016-11-11] MEDS: MULTIVITAMIN TAB PO SCH (10:02)
[2016-11-11] MEDS: LACTOBACILLUS ACIDOPHILUS TAB PEG SCH (10:02)
[2016-11-11] MEDS: amLODIPine BESYLATE 5 MG TAB PO SCH (10:45)
[2016-11-11] MEDS: VALPROATE IV SCH ×4 (11:55→23:38)
[2016-11-11] MEDS: DEXTROSE 5% IV SCH ×4 (11:55→23:38)
[2016-11-11] MEDS: ENOXAPARIN SODIUM 40 MG/0.4 ML SYRINGE SQ SCH (11:55)
[2016-11-11] MEDS: WATER IV SCH ×4 (11:55→23:38)
[2016-11-11] MEDS ORDERED: ENALAPRILAT 1.25 MG/ML VIAL IV PUSH PRN (13:00)
--- NOTE | 2016-11-11 13:02 | HHI.PR ---
Subjective Remarks Follow-up visit pneumonia, trauma status post fall, subdural subarachnoid hemorrhage. Mr. Nixon opens his eyes, nods. Moves his right hand slightly. Non- verbal. Remains comfortable. Objective Vitals Vital Signs Date Time Temp Pulse Resp B/P Pulse Ox O2 Delivery O2 Flow Rate FiO2 11/11/16 12:00 97.7 89 24 133/81 97 11/11/16 10:45 99 T-piece 50 11/11/16 08:12 93 11/11/16 08:00 98.4 80 24 124/78 96 11/11/16 05:30 98.9 95 23 140/85 95 11/11/16 00:30 97.1 95 21 135/76 93 11/10/16 22:00 97.1 95 21 135/76 93 11/10/16 20:30 98.8 90 22 140/80 93 11/10/16 17:35 94 T-piece 6.00 50 11/10/16 16:00 98.6 99 26 120/83 94 I/O 11/10/16 11/10/16 11/10/16 11/11/16 11/11/16 11/11/16 07:00 15:00 23:00 07:00 15:00 23:00 Intake Total 1150 ml 0 ml 1620 ml Output Total 750 ml 500 ml 400 ml 900 ml Balance 400 ml -500 ml -400 ml 720 ml Intake Oral 0 ml 0 ml IV Total 310 ml Tube Feeding 780 ml 1520 ml Other 60 ml 100 ml Output Urine Total 750 ml 400 ml 400 ml 900 ml Stool Total 100 ml Bladder Scan Volume Amount 675 ml 675 ml # Voids 2 # Bowel Movements 1 0 0 1 Result Diagram: 11/10/16 0716 11/10/16 0716 Imaging Last Impressions Chest X-Ray 11/09/16 0000 Signed Impressions: Service Date/Time: Wednesday, November 09, 2016 17:22 - CONCLUSION: Right basilar patchiness consistent with probable pneumonia. Clinical correlation is recommended. Jose James MD Lower Extremity Ultrasound 10/27/16 0000 Signed Impressions: Service Date/Time: Thursday, October 27, 2016 10:13 - CONCLUSION: No DVT either lower extremity. 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 MD Head CT 10/23/16 0000 Signed Impressions: Service Date/Time: Sunday, October 23, 2016 11:21 - CONCLUSION: 1. Examination quality is degraded by motion artifact. There is decreased midline shift, currently measuring 3 mm compared to 6 mm on the prior study. 2. There are persistent hemorrhagic contusions in the right frontal lobe but they are less well-visualized today either related to interval improvement or related to motion artifact. Red Arenas MD Chest CT 10/23/16 0000 Signed Impressions: Service Date/Time: Sunday, October 23, 2016 11:24 - CONCLUSION: 1. Airspace consolidation within the left upper lobe. This could represent an infectious process. 2. Small bilateral pleural effusions with associated compressive atelectasis in the lower lobes. Red Arenas MD Abdomen/Pelvis CT 10/23/16 0000 Signed Impressions: Service Date/Time: Sunday, October 23, 2016 11:27 - CONCLUSION: 1. No acute finding is identified within the abdomen or pelvis. 2. Anasarca. 3. Stable 7 mm nodule on the left adrenal gland. Small size favors a benign process but is incompletely characterized on this examination. Red Arenas MD Neck CTA 10/12/16 0000 Signed Impressions: Service Date/Time: Wednesday, October 12, 2016 09:27 - CONCLUSION: Mild atherosclerotic changes in the proximal portions of both internal carotid arteries but no significant stenosis. Dez Petersen MD Head CTA 10/12/16 0000 Signed Impressions: Service Date/Time: Wednesday, October 12, 2016 09:27 - CONCLUSION: No evidence of acute vascular injury Red Hoffman MD Pelvis X-Ray 10/11/16 1213 Signed Impressions: Service Date/Time: Tuesday, October 11, 2016 12:02 - CONCLUSION: Satisfactory trauma pelvis appearance. Red Hoffman MD Cervical Spine CT 10/11/16 1213 Signed Impressions: Service Date/Time: Tuesday, October 11, 2016 12:19 - CONCLUSION: Occipital skull fracture. No evidence of acute traumatic injury in the cervical spine Red Hoffman MD Objective Remarks GENERAL: Alert, NAD. SKIN: Warm and dry. HEAD: Normocephalic. EYES: No scleral icterus. No injection or drainage. NECK: Supple, trachea midline. No JVD or lymphadenopathy. CARDIOVASCULAR: Regular rate and rhythm without murmurs, gallops, or rubs. RESPIRATORY: Coarse breath sounds with scattered rhonchi. GASTROINTESTINAL: Abdomen soft, non-tender, nondistended. MUSCULOSKELETAL: No cyanosis, or edema. BACK: Nontender without obvious deformity. No CVA tenderness. Procedures 10/27/2016 Blue rhino tracheostomy 10/18/2016 Left frontal bur hole with placement of an intracranial pressure Right frontotemporoparietal decompressive craniectomy with evacuation of subdural hematoma 10/13/2016 Right frontal Anita hole with placement of a ventriculostomy catheter Date of Insertion: Oct 11, 2016 A/P Problem List: (1) Encephalopathy ICD Code: G93.40 Status: Acute (2) Pneumonia ICD Code: J18.9 Status: Acute (3) SAH (subarachnoid hemorrhage) ICD Code: I60.9 Status: Acute (4) Major neurocognitive disorder as late effect of traumatic brain injury with behavioral disturbance ICD Code: S06.9X9S Status: Acute (5) Traumatic brain injury ICD Code: S06.9X9A Status: Chronic (6) Subdural hemorrhage following injury ICD Code: S06.5X9A Status: Acute (7) Fracture of occipital bone of skull with loss of consciousness ICD Code: S02.119A Status: Acute (8) Hepatitis C antibody positive in blood ICD Code: R76.8 Status: Acute (9) Rash ICD Code: R21 Status: Acute Assessment and Plan Patient is a 56-year-old male who came to the hospital on 10/11/16 as a trauma patient. As per report, patient was on a ladder and fell approximately 10 feet. Bystander on the scene perform CPR for approximately 2 minutes stating the patient was blue. On EMS arrival patient is reported to have a GCS of 6, which improved at the time of ED arrival to GCS of 11. Imaging studies showed occipital fracture subdural and subarachnoid hemorrhage. The patient developed worsening agitation he was intubated and placed on mechanical ventilation. Repeat CT in 24 hours showed worsening of bilateral subdural subarachnoid hemorrhage with right temporal parietal subdural hemorrhage with 9 mL leftward midline shift. S/P Craniotomy and drain. Pt. now on tracheostomy and PEG tube placed. Consulted for transfer of care. Trauma, status post fall from a ladder Skull fracture, occipital Subarachnoid hemorrhage Subdural hemorrhage Status post craniotomy Encephalopathy - Neurosurgery. Neurology following - Rehabilitation medicine following. - Continue Keppra, valproic acid. - Seizure precaution - Continue physical therapy occupational therapy, deconditioning Tracheostomy Pneumonia, HCAP vs. Aspiration pneumonia, possibly S. Aureus/ Anaerobes - Leukocytosis continues WBC 13.0 --> 14.5 - Reviewed chest xray repeat 11/10/16- Right basilar patchiness consistent with probable pneumonia. Likely aspiration pneumonia. - 11/04/16 Chest x-ray showed patchy right lung base opacity nonspecific. repeat chest x-ray showed no significant changes occurred. - Continue pulmonary toileting. - Neb treatments - Pulmonology following input appreciated. - Plan to wean off tracheostomy. Currently on trach collar FiO2 28% - Suction when necessary. Oral and trach care. - Aspiration precaution. - Continue Levaquin and Flagyl IV for now. HTN - Continue medication Lasix 40 mg daily, propranolol 20 mg every 6 hours, clonidine 0.3 every 8 hours, labetalol when necessary. - Vasotec PRN. Continue Amlodipine 5mg Qday. PEG in place - [facility] - Monitor for aspiration risk Diarrhea - On the maylin shield - Hold off bowel regimen. - C. difficile negative Hepatitis C - Positive hep C serology - GI follow up as an outpatient. Urinary tract infection - UA positive - Culture showed Rossy albicans less than 10,000 - Switched to condom catheter. Continue betty-care. EtOH, abuse - Folic acid, thiamine DVT prop Lovenox Alternative Code:Intubation Problem Qualifiers (1) Traumatic brain injury: (2) Subdural hemorrhage following injury: Qualified Code: S06.5X1A - Traumatic subdural hemorrhage with loss of consciousness of 30 minutes or less, initial encounter (3) Fracture of occipital bone of skull with loss of consciousness: Qualified Code: S02.119A - Fracture of occipital bone of skull with loss of consciousness, closed, initial encounter Ayse Garza DO Nov 11, 2016 1:02 pm
--- NOTE | 2016-11-11 13:11 | HHI.PR ---
Neuropsych Emotional Emotional: UnabletoAssess: Emotional, Anxious/Fearful, Depressed/Sad, Hostile/ Resentful, Irritable/Angry/Frustrate, Labile, Constricted/Blunted Behavior Behavior: Unable to Asses: Behavior, Coping/Acceptance, Cooperative w/ Treatment, Motivation, Frustration Tolerance/[place], Impulsive/Agitated, Suicidal/ Homicidal Risk Cognitive Cognitive: Unable to Asses: Cognitive, Attention/Concentration, Confused/ Orientation, Insight/Awareness, Judgement/Problem-Solving, Memory Progress Notes/Response to Tx Contents of Sessions: Interests Premorbid psychological status Premorbid Cognitive, Emotional and Behavioral Status: Deferred. 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 The patient has no known psychiatric difficulties. However, substance abuse history is significant for alcohol dependence and tobacco dependence. Behavioral Reactions of Patient and Family/Support System: Tenuous. The patients family has a limited understanding of the complexities of this patient 's brain injury, and the lifestyle barriers that prevent an optimal recovery. They are expected to have ongoing issues of adjustment given the nature of the injury, and this aspect of recovery will require ongoing monitoring. Emotional/Behavioral Status of Patient and Family/Support System: Tenuous. Pertinent issues, if appropriate to this patients clinical care, are described in detail above. Maximizing acute care outcome It is recommended that the patient be monitored for emergent behavioral impulsivity as the medical condition evolves. This patients neuropathological challenges may limit their rehabilitation potential going forward, and these challenges will require specialized therapeutic skills to maximize outcome. Additionally, the patients family is experiencing ongoing issues of adjustment given the traumatic nature of the injury, and they [will need / may benefit] from ongoing psychological assistance. Anticipated Problems Ongoing areas of concern could include behavioral impulsivity, lack of insight and judgment, which is expected to improve with time and treatment, provided he moves past this stage of recovery. Presently, the patient is not following commands. His long duration alcohol dependence and tobacco dependence, which has led to global cerebral atrophy, will serve as a double barrier to his recovery from this injury. Treatment Plan This clinician will continue to follow with you throughout the course of this patients rehabilitation treatment, and I will be available to meet with the patients family/support system to facilitate their understanding and the ongoing care of their family member. The goals of neuropsychological intervention shall be both educational and supportive to the family/support system as is deemed clinically appropriate. [facility] Level: V:Confused-non agitated Diagnosis: (1) Major neurocognitive disorder as late effect of traumatic brain injury with behavioral disturbance Status: Acute (2) Alcohol dependence Status: Acute Progress Note Narrative Ongoing follow-up of patient who was seen bedside. The patient is awake, alert but does not respond appropriately to commands. This is day 31 post injury. In terms of Rancho, he was rated as a III, but in fact, his Rancho level may be higher, at a confused yet non-agitated level, likely V. I will continue to follow. Kermit Hughes PhD Nov 11, 2016 1:11 pm
[2016-11-11] MEDS: LEVOFLOXACIN 750 MG PREMIX INJ 150 ML IV SCH (14:30)
[2016-11-11] MEDS: oxyCODONE HCL ORAL CONC 20 MG/ML SYRINGE PO PRN (17:47)
--- NOTE | 2016-11-11 18:58 | HHI.PR ---
Subjective Remarks 56 YOWM with Fall,ICH,ventriculostomy RF, has trach has lot of secretions Sat 95% Alert, awake, looks around No fever Objective Vital Signs Vital Signs Date Time Temp Pulse Resp B/P Pulse Ox O2 Delivery O2 Flow Rate FiO2 11/11/16 16:23 99.1 86 24 133/77 96 11/11/16 12:00 97.7 89 24 133/81 97 11/11/16 11:00 100 Trach Collar 28 11/11/16 10:45 99 T-piece 50 11/11/16 08:12 93 11/11/16 08:00 98.4 80 24 124/78 96 11/11/16 05:30 98.9 95 23 140/85 95 11/11/16 00:30 97.1 95 21 135/76 93 11/10/16 22:00 97.1 95 21 135/76 93 11/10/16 20:30 98.8 90 22 140/80 93 I/O 11/10/16 11/10/16 11/10/16 11/11/16 11/11/16 11/11/16 07:00 15:00 23:00 07:00 15:00 23:00 Intake Total 1150 ml 0 ml 1620 ml 851 ml Output Total 750 ml 500 ml 400 ml 900 ml Balance 400 ml -500 ml -400 ml 720 ml 851 ml Intake Oral 0 ml 0 ml IV Total 310 ml 364 ml Tube Feeding 780 ml 1520 ml 487 ml Other 60 ml 100 ml Output Urine Total 750 ml 400 ml 400 ml 900 ml Stool Total 100 ml Bladder Scan Volume Amount 675 ml 675 ml # Voids 2 # Bowel Movements 1 0 0 1 Result Diagram: 11/10/16 0716 11/10/16 0716 Objective Remarks GENERAL: WBWN male, On Trach SKIN: Warm and dry. HEAD: Normocephalic. EYES: No scleral icterus. No injection or drainage. NECK: Supple, trachea midline. No JVD or lymphadenopathy. trach in place CARDIOVASCULAR: Regular rate and rhythm without murmurs, gallops, or rubs. RESPIRATORY: Breath sounds equal bilaterally. No accessory muscle use. GASTROINTESTINAL: Abdomen soft, non-tender, nondistended. PEG in place MUSCULOSKELETAL: No cyanosis, or edema. BACK: Nontender without obvious deformity. No CVA tenderness. A/P Assessment and Plan RF. s/p Trach s/P Ventriculostomy PEG placement PLAN: ATUL [place], he will see pt and evaluate soon Aerosol nebs SQ Lovenox TF Murphy Cm MD Nov 11, 2016 18:58
[2016-11-12] VITALS (7 sets, daily range): BP systolic 111–134; BP diastolic 70–77; PULSE 77–110; RESP 20–24; TEMP 98.2–99.8; O2SAT 93–99
--- NOTE | 2016-11-12 00:21 | HHI.PR ---
Subjective Remarks Follow-up visit pneumonia, trauma status post fall, subdural subarachnoid hemorrhage. Patient appears to be more responsive today. He nods, tries to mouth some words. Follows some commands. He is able to move bilateral fingers and also right sided toes. Objective Vitals Vital Signs Date Time Temp Pulse Resp B/P Pulse Ox O2 Delivery O2 Flow Rate FiO2 11/11/16 20:30 98.9 83 22 135/80 100 11/11/16 16:23 99.1 86 24 133/77 96 11/11/16 12:00 97.7 89 24 133/81 97 11/11/16 11:00 100 Trach Collar 28 11/11/16 10:45 99 T-piece 50 11/11/16 08:12 93 11/11/16 08:00 98.4 80 24 124/78 96 11/11/16 05:30 98.9 95 23 140/85 95 11/11/16 00:30 97.1 95 21 135/76 93 I/O 11/11/16 11/11/16 11/11/16 11/12/16 11/12/16 11/12/16 07:00 15:00 23:00 07:00 15:00 23:00 Intake Total 1620 ml 851 ml Output Total 900 ml 200 ml Balance 720 ml 651 ml Intake Oral 0 ml 0 ml IV Total 364 ml Tube Feeding 1520 ml 487 ml Other 100 ml Output Urine Total 900 ml 200 ml # Voids 2 # Bowel Movements 0 1 0 Result Diagram: 11/10/16 0716 11/10/16 0716 Imaging Last Impressions Chest X-Ray 11/09/16 0000 Signed Impressions: Service Date/Time: Wednesday, November 09, 2016 17:22 - CONCLUSION: Right basilar patchiness consistent with probable pneumonia. Clinical correlation is recommended. Jose James MD Lower Extremity Ultrasound 10/27/16 0000 Signed Impressions: Service Date/Time: Thursday, October 27, 2016 10:13 - CONCLUSION: No DVT either lower extremity. 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 MD Head CT 10/23/16 0000 Signed Impressions: Service Date/Time: Sunday, October 23, 2016 11:21 - CONCLUSION: 1. Examination quality is degraded by motion artifact. There is decreased midline shift, currently measuring 3 mm compared to 6 mm on the prior study. 2. There are persistent hemorrhagic contusions in the right frontal lobe but they are less well-visualized today either related to interval improvement or related to motion artifact. Red Arenas MD Chest CT 10/23/16 0000 Signed Impressions: Service Date/Time: Sunday, October 23, 2016 11:24 - CONCLUSION: 1. Airspace consolidation within the left upper lobe. This could represent an infectious process. 2. Small bilateral pleural effusions with associated compressive atelectasis in the lower lobes. Red Arenas MD Abdomen/Pelvis CT 10/23/16 0000 Signed Impressions: Service Date/Time: Sunday, October 23, 2016 11:27 - CONCLUSION: 1. No acute finding is identified within the abdomen or pelvis. 2. Anasarca. 3. Stable 7 mm nodule on the left adrenal gland. Small size favors a benign process but is incompletely characterized on this examination. Red Arenas MD Neck CTA 10/12/16 0000 Signed Impressions: Service Date/Time: Wednesday, October 12, 2016 09:27 - CONCLUSION: Mild atherosclerotic changes in the proximal portions of both internal carotid arteries but no significant stenosis. Dez Petersen MD Head CTA 10/12/16 0000 Signed Impressions: Service Date/Time: Wednesday, October 12, 2016 09:27 - CONCLUSION: No evidence of acute vascular injury Red Hoffman MD Pelvis X-Ray 10/11/16 121 Signed Impressions: Service Date/Time: Tuesday, October 11, 2016 12:02 - CONCLUSION: Satisfactory trauma pelvis appearance. Red Hoffman MD Cervical Spine CT 10/11/16 1213 Signed Impressions: Service Date/Time: Tuesday, October 11, 2016 12:19 - CONCLUSION: Occipital skull fracture. No evidence of acute traumatic injury in the cervical spine Red Hoffman MD Objective Remarks GENERAL: Alert, NAD. SKIN: Warm and dry. HEAD: Normocephalic. EYES: No scleral icterus. No injection or drainage. NECK: Supple, trachea midline. No JVD or lymphadenopathy. CARDIOVASCULAR: Regular rate and rhythm without murmurs, gallops, or rubs. RESPIRATORY: Coarse breath sounds with scattered rhonchi. GASTROINTESTINAL: Abdomen soft, non-tender, nondistended. MUSCULOSKELETAL: No cyanosis, or edema. BACK: Nontender without obvious deformity. No CVA tenderness. Procedures 10/27/2016 Blue rhino tracheostomy 10/18/2016 Left frontal bur hole with placement of an intracranial pressure Right frontotemporoparietal decompressive craniectomy with evacuation of subdural hematoma 10/13/2016 Right frontal Edroy hole with placement of a ventriculostomy catheter Date of Insertion: Oct 11, 2016 A/P Problem List: (1) Encephalopathy ICD Code: G93.40 Status: Acute (2) Pneumonia ICD Code: J18.9 Status: Acute (3) SAH (subarachnoid hemorrhage) ICD Code: I60.9 Status: Acute (4) Major neurocognitive disorder as late effect of traumatic brain injury with behavioral disturbance ICD Code: S06.9X9S Status: Acute (5) Traumatic brain injury ICD Code: S06.9X9A Status: Chronic (6) Subdural hemorrhage following injury ICD Code: S06.5X9A Status: Acute (7) Fracture of occipital bone of skull with loss of consciousness ICD Code: S02.119A Status: Acute (8) Hepatitis C antibody positive in blood ICD Code: R76.8 Status: Acute (9) Rash ICD Code: R21 Status: Acute Assessment and Plan Patient is a 56-year-old male who came to the hospital on 10/11/16 as a trauma patient. As per report, patient was on a ladder and fell approximately 10 feet. Bystander on the scene perform CPR for approximately 2 minutes stating the patient was blue. On EMS arrival patient is reported to have a GCS of 6, which improved at the time of ED arrival to GCS of 11. Imaging studies showed occipital fracture subdural and subarachnoid hemorrhage. The patient developed worsening agitation he was intubated and placed on mechanical ventilation. Repeat CT in 24 hours showed worsening of bilateral subdural subarachnoid hemorrhage with right temporal parietal subdural hemorrhage with 9 mL leftward midline shift. S/P Craniotomy and drain. Pt. now on tracheostomy and PEG tube placed. Consulted for transfer of care. Trauma, status post fall from a ladder Skull fracture, occipital Subarachnoid hemorrhage Subdural hemorrhage Status post craniotomy Encephalopathy - Rehabilitation medicine following. - Continue Keppra, valproic acid. - Seizure precaution - Continue physical therapy occupational therapy for deconditioning Tracheostomy Pneumonia, HCAP vs. Aspiration pneumonia, possibly S. Aureus/ Anaerobes - Leukocytosis continues WBC 13.0 --> 14.5 - Reviewed chest xray repeat 11/10/16- Right basilar patchiness consistent with probable pneumonia. Likely aspiration pneumonia. - 11/04/16 Chest x-ray showed patchy right lung base opacity nonspecific. repeat chest x-ray showed no significant changes occurred. - Continue pulmonary toileting. - Neb treatments - Pulmonology following input appreciated. - Plan to wean off tracheostomy. Currently on trach collar FiO2 28% - Suction when necessary. Oral and trach care. - Aspiration precaution. - Continue Levaquin and Flagyl IV for now. We will continue until 11/14/2016. HTN - Continue medication Lasix 40 mg daily, propranolol 20 mg every 6 hours, clonidine 0.3 every 8 hours, labetalol when necessary. - Vasotec PRN. Continue Amlodipine 5mg Qday. PEG in place - Continue tube feedings as ordered Jevity - Monitor for aspiration risk Diarrhea - On the maylin shield - Hold off bowel regimen. - C. difficile negative Hepatitis C - Positive hep C serology - GI follow up as an outpatient. Urinary tract infection - UA positive - Culture showed Rossy albicans less than 10,000 - Switched to condom catheter. Continue betty-care. EtOH, abuse - Folic acid, thiamine DVT prop Lovenox Alternative Code:Intubation Problem Qualifiers (1) Traumatic brain injury: (2) Subdural hemorrhage following injury: Qualified Code: S06.5X1A - Traumatic subdural hemorrhage with loss of consciousness of 30 minutes or less, initial encounter (3) Fracture of occipital bone of skull with loss of consciousness: Qualified Code: S02.119A - Fracture of occipital bone of skull with loss of consciousness, closed, initial encounter Ayse Garza DO Nov 12, 2016 12:20 am
[2016-11-12] MEDS: PROPRANOLOL HCL 20 MG TAB PO SCH ×3 (05:18→18:00)
[2016-11-12] MEDS: cloNIDine HCL 0.3 MG TAB PO SCH ×3 (05:18→23:23)
[2016-11-12] MEDS: metroNIDAZOLE 500 MG INJ 100 ML IV SCH ×4 (05:18→23:37)
[2016-11-12] MEDS: CHLORHEXIDINE GLUCONATE 2 % 1 PACK (2 CLOTHS) TOP SCH (05:33)
[2016-11-12] MEDS: CHLORHEXIDINE 0.12% (ORAL KIT) 15 ML CUP MT SCH ×2 (08:00→20:00)
[2016-11-12] MEDS: levETIRAcetam 500 MG/5 ML UDC TUBE SCH ×2 (09:48→23:37)
[2016-11-12] MEDS: MULTIVITAMIN TAB PO SCH (09:49)
[2016-11-12] MEDS: DOCUSATE SODIUM 100 MG CAP PO SCH ×2 (09:49→21:00)
[2016-11-12] MEDS: POTASSIUM CHLORIDE 25 MEQ EFFERVESCENT TAB TUBE SCH (09:49)
[2016-11-12] MEDS: amLODIPine BESYLATE 5 MG TAB PO SCH (09:49)
[2016-11-12] MEDS: THIAMINE HCL 100 MG TAB PO SCH (09:49)
[2016-11-12] MEDS: PANTOPRAZOLE SODIUM 40 MG VIAL IVP SCH (09:50)
[2016-11-12] MEDS: LACTOBACILLUS ACIDOPHILUS TAB PEG SCH (09:50)
[2016-11-12] MEDS: FUROSEMIDE 40 MG/4 ML VIAL IV PUSH SCH (09:50)
[2016-11-12] MEDS: FOLIC ACID 1 MG TAB PO SCH (09:50)
[2016-11-12] MEDS: SODIUM CHLORIDE 0.9% FLUSH 5 ML FLUSH IVF SCH ×2 (09:51→23:37)
[2016-11-12] MEDS: WATER IV SCH ×4 (11:00→23:23)
[2016-11-12] MEDS: DEXTROSE 5% IV SCH ×4 (11:00→23:23)
[2016-11-12] MEDS: VALPROATE IV SCH ×4 (11:00→23:23)
--- NOTE | 2016-11-12 12:24 | HHI.PR ---
Neuropsych Emotional Emotional: UnabletoAssess: Emotional, Anxious/Fearful, Depressed/Sad, Hostile/ Resentful, Irritable/Angry/Frustrate, Labile, Constricted/Blunted Behavior Behavior: Unable to Asses: Behavior, Coping/Acceptance, Cooperative w/ Treatment, Motivation, Frustration Tolerance/[place], Impulsive/Agitated, Suicidal/ Homicidal Risk Cognitive Cognitive: Unable to Asses: Cognitive, Attention/Concentration, Confused/ Orientation, Insight/Awareness, Judgement/Problem-Solving, Memory Psychosocial Psychosocial: Mild: Realistic Expectation, Moderate: Psychosocial, Family/ Other Adjustment Progress Notes/Response to Tx Contents of Sessions: Interests Time with Patient: 15 minutes Premorbid psychological status Premorbid Cognitive, Emotional and Behavioral Status: Deferred. 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 The patient has no known psychiatric difficulties. However, substance abuse history is significant for alcohol dependence and tobacco dependence. Behavioral Reactions of Patient and Family/Support System: Tenuous. The patients family has a limited understanding of the complexities of this patient 's brain injury, and the lifestyle barriers that prevent an optimal recovery. They are expected to have ongoing issues of adjustment given the nature of the injury, and this aspect of recovery will require ongoing monitoring. Emotional/Behavioral Status of Patient and Family/Support System: Tenuous. Pertinent issues, if appropriate to this patients clinical care, are described in detail above. Maximizing acute care outcome It is recommended that the patient be monitored for emergent behavioral impulsivity as the medical condition evolves. This patients neuropathological challenges may limit their rehabilitation potential going forward, and these challenges will require specialized therapeutic skills to maximize outcome. Additionally, the patients family is experiencing ongoing issues of adjustment given the traumatic nature of the injury, and they [will need / may benefit] from ongoing psychological assistance. Anticipated Problems Ongoing areas of concern could include behavioral impulsivity, lack of insight and judgment, which is expected to improve with time and treatment, provided he moves past this stage of recovery. Presently, the patient is not following commands. His long duration alcohol dependence and tobacco dependence, which has led to global cerebral atrophy, will serve as a double barrier to his recovery from this injury. Treatment Plan This clinician will continue to follow with you throughout the course of this patients rehabilitation treatment, and I will be available to meet with the patients family/support system to facilitate their understanding and the ongoing care of their family member. The goals of neuropsychological intervention shall be both educational and supportive to the family/support system as is deemed clinically appropriate. [facility] Level: V:Confused-non agitated Diagnosis: (1) Major neurocognitive disorder as late effect of traumatic brain injury with behavioral disturbance Status: Acute (2) Alcohol dependence Status: Acute Progress Note Narrative Ongoing follow-up of patient who was seen bedside. He is day 32 post injury. From a neurobehavioral standpoint, there is no change from yesterday. He is awake, alert but not consistently following commands, likely for multifactorial reasons including poor hearing and neurocognitive deficit. He is at a [facility] presently. I will continue to follow with you. Kermit Hughes PhD Nov 12, 2016 12:24 pm
[2016-11-12] MEDS: LEVOFLOXACIN 750 MG PREMIX INJ 150 ML IV SCH (16:12)
--- NOTE | 2016-11-12 16:19 | HHI.PR ---
Subjective Remarks 56 YOWM with Fall,ICH,ventriculostomy RF, has trach has lot of secretions Sat 95% Alert, awake, looks around No fever Objective Vital Signs Vital Signs Date Time Temp Pulse Resp B/P Pulse Ox O2 Delivery O2 Flow Rate FiO2 11/12/16 12:00 98.4 88 20 118/70 98 11/12/16 08:00 98.2 87 20 115/70 99 11/12/16 05:30 99.7 94 21 115/75 97 11/12/16 00:00 99.8 77 23 111/76 99 11/11/16 20:50 100 Trach Collar 28 11/11/16 20:30 98.9 83 22 135/80 100 11/11/16 19:29 83 11/11/16 16:23 99.1 86 24 133/77 96 I/O 11/11/16 11/11/16 11/11/16 11/12/16 11/12/16 11/12/16 07:00 15:00 23:00 07:00 15:00 23:00 Intake Total 1620 ml 851 ml 0 ml Output Total 900 ml 200 ml 1000 ml Balance 720 ml 651 ml -1000 ml Intake Oral 0 ml 0 ml 0 ml IV Total 364 ml Tube Feeding 1520 ml 487 ml Other 100 ml Output Urine Total 900 ml 200 ml 1000 ml # Voids 2 # Bowel Movements 0 1 0 0 Result Diagram: 11/10/1616 11/10/16 0716 Objective Remarks GENERAL: WBWN male, On Trach SKIN: Warm and dry. HEAD: Normocephalic. EYES: No scleral icterus. No injection or drainage. NECK: Supple, trachea midline. No JVD or lymphadenopathy. trach in place CARDIOVASCULAR: Regular rate and rhythm without murmurs, gallops, or rubs. RESPIRATORY: Breath sounds equal bilaterally. No accessory muscle use. GASTROINTESTINAL: Abdomen soft, non-tender, nondistended. PEG in place MUSCULOSKELETAL: No cyanosis, or edema. BACK: Nontender without obvious deformity. No CVA tenderness. A/P Assessment and Plan RF. s/p Trach s/P Ventriculostomy PEG placement PLAN: Aerosol nebs SQ Lovenox TF Trach suction prn Murphy Cm MD Nov 12, 2016 16:19
[2016-11-12] MEDS: ENOXAPARIN SODIUM 40 MG/0.4 ML SYRINGE SQ SCH (16:28)
[2016-11-13] VITALS (8 sets, daily range): BP systolic 120–142; BP diastolic 64–74; PULSE 87–114; RESP 17–22; TEMP 96–100.2; O2SAT 92–96
[2016-11-13] MEDS: metroNIDAZOLE 500 MG INJ 100 ML IV SCH ×4 (03:00→21:33)
[2016-11-13] MEDS: CHLORHEXIDINE GLUCONATE 2 % 1 PACK (2 CLOTHS) TOP SCH (04:00)
[2016-11-13] MEDS: PROPRANOLOL HCL 20 MG TAB PO SCH ×4 (06:27→18:00)
[2016-11-13] MEDS: cloNIDine HCL 0.3 MG TAB PO SCH ×3 (06:27→21:33)
[2016-11-13] MEDS: CHLORHEXIDINE 0.12% (ORAL KIT) 15 ML CUP MT SCH ×2 (08:00→20:00)
--- NOTE | 2016-11-13 09:49 | HHI.PR ---
Subjective Remarks Follow-up visit pneumonia, trauma status post fall, subdural subarachnoid hemorrhage. Patient opens his eyes, nods. No other communication today. Objective Vitals Vital Signs Date Time Temp Pulse Resp B/P Pulse Ox O2 Delivery O2 Flow Rate FiO2 11/13/16 04:00 99.9 114 22 142/74 94 11/13/16 00:00 97.5 112 22 120/64 96 11/12/16 21:45 Trach Collar 28 11/12/16 20:00 98.7 88 24 134/77 93 11/12/16 20:00 110 11/12/16 18:06 98 T-piece 6.00 28 11/12/16 16:00 99.5 96 20 130/70 98 11/12/16 12:00 98.4 88 20 118/70 98 I/O 11/12/16 11/12/16 11/12/16 11/13/16 11/13/16 11/13/16 07:00 15:00 23:00 07:00 15:00 23:00 Intake Total 0 ml 0 ml Output Total 1000 ml 500 ml Balance -1000 ml -500 ml Intake Oral 0 ml 0 ml Output Urine Total 1000 ml 500 ml # Bowel Movements 0 1 Result Diagram: 11/10/1616 11/10/16715 Objective Remarks GENERAL: Alert, NAD. SKIN: Warm and dry. HEAD: Normocephalic. EYES: No scleral icterus. No injection or drainage. NECK: Supple, trachea midline. No JVD or lymphadenopathy. CARDIOVASCULAR: Regular rate and rhythm without murmurs, gallops, or rubs. RESPIRATORY: Coarse breath sounds with scattered rhonchi. GASTROINTESTINAL: Abdomen soft, non-tender, nondistended. MUSCULOSKELETAL: No cyanosis, or edema. BACK: Nontender without obvious deformity. No CVA tenderness. Procedures 10/27/2016 Blue rhino tracheostomy 10/18/2016 Left frontal bur hole with placement of an intracranial pressure Right frontotemporoparietal decompressive craniectomy with evacuation of subdural hematoma 10/13/2016 Right frontal Anita hole with placement of a ventriculostomy catheter Date of Insertion: Oct 11, 2016 A/P Problem List: (1) Encephalopathy ICD Code: G93.40 Status: Acute (2) Pneumonia ICD Code: J18.9 Status: Acute (3) SAH (subarachnoid hemorrhage) ICD Code: I60.9 Status: Acute (4) Major neurocognitive disorder as late effect of traumatic brain injury with behavioral disturbance ICD Code: S06.9X9S Status: Acute (5) Traumatic brain injury ICD Code: S06.9X9A Status: Chronic (6) Subdural hemorrhage following injury ICD Code: S06.5X9A Status: Acute (7) Fracture of occipital bone of skull with loss of consciousness ICD Code: S02.119A Status: Acute (8) Hepatitis C antibody positive in blood ICD Code: R76.8 Status: Acute (9) Rash ICD Code: R21 Status: Acute Assessment and Plan Patient is a 56-year-old male who came to the hospital on 10/11/16 as a trauma patient. As per report, patient was on a ladder and fell approximately 10 feet. Bystander on the scene perform CPR for approximately 2 minutes stating the patient was blue. On EMS arrival patient is reported to have a GCS of 6, which improved at the time of ED arrival to GCS of 11. Imaging studies showed occipital fracture subdural and subarachnoid hemorrhage. The patient developed worsening agitation he was intubated and placed on mechanical ventilation. Repeat CT in 24 hours showed worsening of bilateral subdural subarachnoid hemorrhage with right temporal parietal subdural hemorrhage with 9 mL leftward midline shift. S/P Craniotomy and drain. Pt. now on tracheostomy and PEG tube placed. Consulted for transfer of care. Trauma, status post fall from a ladder Skull fracture, occipital Subarachnoid hemorrhage Subdural hemorrhage Status post craniotomy Encephalopathy - Rehabilitation medicine following. - Continue Keppra, valproic acid. - Seizure precaution - Continue physical therapy occupational therapy for deconditioning Tracheostomy Pneumonia, HCAP vs. Aspiration pneumonia, possibly S. Aureus/ Anaerobes - Leukocytosis continues WBC 13.0 --> 14.5 - Reviewed chest xray repeat 11/10/16- Right basilar patchiness consistent with probable pneumonia. Likely aspiration pneumonia. - 11/04/16 Chest x-ray showed patchy right lung base opacity nonspecific. repeat chest x-ray showed no significant changes occurred. - Continue pulmonary toileting. - Neb treatments - Pulmonology following input appreciated. - Plan to wean off tracheostomy. Currently on trach collar FiO2 28% - Suction when necessary. Oral and trach care. - Aspiration precaution. - Continue Levaquin and Flagyl IV for now. We will continue until 11/14/2016. HTN - Continue medication Lasix 40 mg daily, propranolol 20 mg every 6 hours, clonidine 0.3 every 8 hours, labetalol when necessary. - Vasotec PRN. Continue Amlodipine 5mg Qday. PEG in place - Continue tube feedings as ordered Jevity - Monitor for aspiration risk Diarrhea - On the maylin shield - Hold off bowel regimen. - C. difficile negative Hepatitis C - Positive hep C serology - GI follow up as an outpatient. Urinary tract infection - UA positive - Culture showed Rossy albicans less than 10,000 - Switched to condom catheter. Continue betty-care. EtOH, abuse - Folic acid, thiamine DVT prop Lovenox Alternative Code:Intubation 11/13/2016 : No change in Management. Problem Qualifiers (1) Traumatic brain injury: (2) Subdural hemorrhage following injury: Qualified Code: S06.5X1A - Traumatic subdural hemorrhage with loss of consciousness of 30 minutes or less, initial encounter (3) Fracture of occipital bone of skull with loss of consciousness: Qualified Code: S02.119A - Fracture of occipital bone of skull with loss of consciousness, closed, initial encounter Ayse aGrza DO Nov 13, 2016 9:49 am
[2016-11-13] MEDS: WATER IV SCH ×4 (10:27→21:33)
[2016-11-13] MEDS: DEXTROSE 5% IV SCH ×4 (10:27→21:33)
[2016-11-13] MEDS: VALPROATE IV SCH ×4 (10:27→21:33)
[2016-11-13] MEDS: FUROSEMIDE 40 MG/4 ML VIAL IV PUSH SCH (10:28)
[2016-11-13] MEDS: POTASSIUM CHLORIDE 25 MEQ EFFERVESCENT TAB TUBE SCH (10:29)
[2016-11-13] MEDS: PANTOPRAZOLE SODIUM 40 MG VIAL IVP SCH (10:29)
[2016-11-13] MEDS: SODIUM CHLORIDE 0.9% FLUSH 5 ML FLUSH IVF SCH ×2 (10:29→21:34)
[2016-11-13] MEDS: levETIRAcetam 500 MG/5 ML UDC TUBE SCH ×2 (10:30→21:33)
[2016-11-13] MEDS: MULTIVITAMIN TAB PO SCH (10:30)
[2016-11-13] MEDS: LACTOBACILLUS ACIDOPHILUS TAB PEG SCH (10:30)
[2016-11-13] MEDS: amLODIPine BESYLATE 5 MG TAB PO SCH (10:30)
[2016-11-13] MEDS: DOCUSATE SODIUM 100 MG CAP PO SCH ×2 (10:31→21:00)
[2016-11-13] MEDS: THIAMINE HCL 100 MG TAB PO SCH (10:31)
[2016-11-13] MEDS: FOLIC ACID 1 MG TAB PO SCH (10:31)
[2016-11-13] MEDS: ENOXAPARIN SODIUM 40 MG/0.4 ML SYRINGE SQ SCH (12:00)
[2016-11-13] MEDS: LEVOFLOXACIN 750 MG PREMIX INJ 150 ML IV SCH (14:00)
[2016-11-14] VITALS (7 sets, daily range): BP systolic 107–142; BP diastolic 63–78; PULSE 71–92; RESP 16–22; TEMP 98.1–99.4; O2SAT 95–100
[2016-11-14] MEDS: metroNIDAZOLE 500 MG INJ 100 ML IV SCH ×4 (03:00→21:58)
[2016-11-14] MEDS: CHLORHEXIDINE GLUCONATE 2 % 1 PACK (2 CLOTHS) TOP SCH (04:00)
[2016-11-14] MEDS: cloNIDine HCL 0.3 MG TAB PO SCH ×3 (05:24→21:59)
[2016-11-14] MEDS: PROPRANOLOL HCL 20 MG TAB PO SCH ×4 (05:24→17:26)
[2016-11-14 06:07] LABS: BICARBONATE 32.7 MEQ/L (21.0-32.0); POTASSIUM 3.7 MEQ/L (3.5-5.1)
[2016-11-14 06:10] LABS: AUTOMATED NEUTROPHIL # 9.7 TH/MM3 (1.8-7.7); BASOPHIL # 0.1 TH/MM3 (0-0.2); BASOPHIL % 0.5 % (0.0-2.0); EOSINOPHIL # 0.2 TH/MM3 (0-0.4); EOSINOPHIL % 1.7 % (0.0-4.0); HEMATOCRIT 28.6 % (39.0-51.0); LYMPH % 12.5 % (9.0-44.0); LYMPHOCYTE # 1.8 TH/MM3 (1.0-4.8); MEAN CELL VOLUME 92.6 FL (80.0-100.0); MEAN CORPUSCULAR HEMOGLOBIN 31.5 PG (27.0-34.0); MONO % 17.5 % (0.0-8.0); NEUT % 67.8 % (16.0-70.0); PLATELET COUNT 403 TH/MM3 (150-450); RED BLOOD COUNT 3.09 MIL/MM3 (4.50-5.90); RED CELL DISTRIBUTION WIDTH 14.1 % (11.6-17.2); WHITE BLOOD COUNT 14.3 TH/MM3 (4.0-11.0)
[2016-11-14 06:28] LABS: HEMO FLAGS AUTO DIFF
[2016-11-14] MEDS: CHLORHEXIDINE 0.12% (ORAL KIT) 15 ML CUP MT SCH ×2 (08:00→20:00)
[2016-11-14] MEDS: SODIUM CHLORIDE 0.9% FLUSH 5 ML FLUSH IVF SCH ×2 (09:00→21:00)
[2016-11-14] MEDS: levETIRAcetam 500 MG/5 ML UDC TUBE SCH ×2 (11:03→21:59)
[2016-11-14] MEDS: PANTOPRAZOLE SODIUM 40 MG VIAL IVP SCH (11:04)
[2016-11-14] MEDS: POTASSIUM CHLORIDE 25 MEQ EFFERVESCENT TAB TUBE SCH (11:05)
[2016-11-14] MEDS: amLODIPine BESYLATE 5 MG TAB PO SCH (11:05)
[2016-11-14] MEDS: FUROSEMIDE 40 MG/4 ML VIAL IV PUSH SCH (11:05)
[2016-11-14] MEDS: MULTIVITAMIN TAB PO SCH (11:05)
[2016-11-14] MEDS: LACTOBACILLUS ACIDOPHILUS TAB PEG SCH (11:05)
[2016-11-14] MEDS: FOLIC ACID 1 MG TAB PO SCH (11:05)
[2016-11-14] MEDS: THIAMINE HCL 100 MG TAB PO SCH (11:05)
[2016-11-14] MEDS: DOCUSATE SODIUM 100 MG CAP PO SCH ×2 (11:05→21:00)
[2016-11-14] MEDS: DEXTROSE 5% IV SCH ×4 (11:20→21:58)
[2016-11-14] MEDS: ENOXAPARIN SODIUM 40 MG/0.4 ML SYRINGE SQ SCH (11:20)
[2016-11-14] MEDS: WATER IV SCH ×4 (11:20→21:58)
[2016-11-14] MEDS: VALPROATE IV SCH ×4 (11:20→21:58)
[2016-11-14 12:11] LABS: BANDS 6 % (0-6); BASOPHILS 1 % (0-2); METAMYELOCYTES 3 % (0-1); MYELOCYTES 2 % (0-0); NEUTROPHIL # MANUAL DIFF 10.4 TH/MM3 (1.8-7.7); PLATELET ESTIMATE SMEAR NORMAL (NORMAL); PLATELET MORPHOLOGY NORMAL (NORMAL); POLYS (SEG NEUTROPHILS) 62 % (16-70); SCAN/DIFF FINAL DIFF MANUAL; WBC DIFF SAMPLE 100
--- NOTE | 2016-11-14 14:53 | HHI.PR ---
Subjective Remarks Follow-up visit pneumonia, trauma status post fall, subdural subarachnoid hemorrhage. Patient nods and opens his eyes. No verbal communications. Objective Vitals Vital Signs Date Time Temp Pulse Resp B/P Pulse Ox O2 Delivery O2 Flow Rate FiO2 11/14/16 12:00 98.2 83 17 116/72 98 11/14/16 10:49 95 Trach Collar 28 11/14/16 08:00 99.0 71 20 107/63 100 11/14/16 07:00 Trach Collar 28 11/14/16 04:00 98.3 84 22 142/75 96 11/14/16 00:00 99.4 92 22 109/67 95 11/13/16 21:46 95 T-piece 28 11/13/16 21:45 Trach Collar 28 11/13/16 20:00 88 11/13/16 20:00 100.2 97 22 134/67 95 11/13/16 16:00 98.3 105 20 130/69 95 I/O 11/13/16 11/13/16 11/13/16 11/14/16 11/14/16 11/14/16 07:00 15:00 23:00 07:00 15:00 23:00 Output Total 800 ml Balance -800 ml Output Urine Total 800 ml # Bowel Movements 1 Result Diagram: 11/14/167 11/14/167 Imaging Last Impressions Chest X-Ray 11/09/16 0000 Signed Impressions: Service Date/Time: Wednesday, November 09, 2016 17:22 - CONCLUSION: Right basilar patchiness consistent with probable pneumonia. Clinical correlation is recommended. Jose James MD Lower Extremity Ultrasound 10/27/16 0000 Signed Impressions: Service Date/Time: Thursday, October 27, 2016 10:13 - CONCLUSION: No DVT either lower extremity. 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 MD Head CT 10/23/16 0000 Signed Impressions: Service Date/Time: Sunday, October 23, 2016 11:21 - CONCLUSION: 1. Examination quality is degraded by motion artifact. There is decreased midline shift, currently measuring 3 mm compared to 6 mm on the prior study. 2. There are persistent hemorrhagic contusions in the right frontal lobe but they are less well-visualized today either related to interval improvement or related to motion artifact. Red Arenas MD Chest CT 10/23/16 0000 Signed Impressions: Service Date/Time: Sunday, October 23, 2016 11:24 - CONCLUSION: 1. Airspace consolidation within the left upper lobe. This could represent an infectious process. 2. Small bilateral pleural effusions with associated compressive atelectasis in the lower lobes. Red Arenas MD Abdomen/Pelvis CT 10/23/16 0000 Signed Impressions: Service Date/Time: Sunday, October 23, 2016 11:27 - CONCLUSION: 1. No acute finding is identified within the abdomen or pelvis. 2. Anasarca. 3. Stable 7 mm nodule on the left adrenal gland. Small size favors a benign process but is incompletely characterized on this examination. Red Arenas MD Neck CTA 10/12/16 0000 Signed Impressions: Service Date/Time: Wednesday, October 12, 2016 09:27 - CONCLUSION: Mild atherosclerotic changes in the proximal portions of both internal carotid arteries but no significant stenosis. Dez Petersen MD Head CTA 10/12/16 0000 Signed Impressions: Service Date/Time: Wednesday, October 12, 2016 09:27 - CONCLUSION: No evidence of acute vascular injury Red Hoffman MD Pelvis X-Ray 10/11/16 1213 Signed Impressions: Service Date/Time: Tuesday, October 11, 2016 12:02 - CONCLUSION: Satisfactory trauma pelvis appearance. Red Hoffman MD Cervical Spine CT 10/11/16 1213 Signed Impressions: Service Date/Time: Tuesday, October 11, 2016 12:19 - CONCLUSION: Occipital skull fracture. No evidence of acute traumatic injury in the cervical spine Red Hoffman MD Objective Remarks GENERAL: Alert, NAD. SKIN: Warm and dry. HEAD: Normocephalic. EYES: No scleral icterus. No injection or drainage. NECK: Supple, trachea midline. No JVD or lymphadenopathy. CARDIOVASCULAR: Regular rate and rhythm without murmurs, gallops, or rubs. RESPIRATORY: Coarse breath sounds with scattered rhonchi. GASTROINTESTINAL: Abdomen soft, non-tender, nondistended. MUSCULOSKELETAL: No cyanosis, or edema. BACK: Nontender without obvious deformity. No CVA tenderness. Procedures 10/27/2016 Blue rhino tracheostomy 10/18/2016 Left frontal bur hole with placement of an intracranial pressure Right frontotemporoparietal decompressive craniectomy with evacuation of subdural hematoma 10/13/2016 Right frontal Franklin hole with placement of a ventriculostomy catheter Date of Insertion: Oct 11, 2016 A/P Problem List: (1) Encephalopathy ICD Code: G93.40 Status: Acute (2) Pneumonia ICD Code: J18.9 Status: Acute (3) SAH (subarachnoid hemorrhage) ICD Code: I60.9 Status: Acute (4) Major neurocognitive disorder as late effect of traumatic brain injury with behavioral disturbance ICD Code: S06.9X9S Status: Acute (5) Traumatic brain injury ICD Code: S06.9X9A Status: Chronic (6) Subdural hemorrhage following injury ICD Code: S06.5X9A Status: Acute (7) Fracture of occipital bone of skull with loss of consciousness ICD Code: S02.119A Status: Acute (8) Hepatitis C antibody positive in blood ICD Code: R76.8 Status: Acute (9) Rash ICD Code: R21 Status: Acute Assessment and Plan Patient is a 56-year-old male who came to the hospital on 10/11/16 as a trauma patient. As per report, patient was on a ladder and fell approximately 10 feet. Bystander on the scene perform CPR for approximately 2 minutes stating the patient was blue. On EMS arrival patient is reported to have a GCS of 6, which improved at the time of ED arrival to GCS of 11. Imaging studies showed occipital fracture subdural and subarachnoid hemorrhage. The patient developed worsening agitation he was intubated and placed on mechanical ventilation. Repeat CT in 24 hours showed worsening of bilateral subdural subarachnoid hemorrhage with right temporal parietal subdural hemorrhage with 9 mL leftward midline shift. S/P Craniotomy and drain. Pt. now on tracheostomy and PEG tube placed. Consulted for transfer of care. Trauma, status post fall from a ladder Skull fracture, occipital Subarachnoid hemorrhage Subdural hemorrhage Status post craniotomy Encephalopathy - Rehabilitation medicine following. - Continue Keppra, valproic acid. - Seizure precaution - Continue physical therapy occupational therapy for deconditioning Tracheostomy Pneumonia, HCAP vs. Aspiration pneumonia, possibly S. Aureus/ Anaerobes - Leukocytosis continues WBC 13.0 --> 14.5 - Reviewed chest xray repeat 11/10/16- Right basilar patchiness consistent with probable pneumonia. Likely aspiration pneumonia. - 11/04/16 Chest x-ray showed patchy right lung base opacity nonspecific. repeat chest x-ray showed no significant changes occurred. - Continue pulmonary toileting. - Neb treatments - Pulmonology following input appreciated. - Plan to wean off tracheostomy. Currently on trach collar FiO2 28% - Suction when necessary. Oral and trach care. - Aspiration precaution. - Levaquin and Flagyl IV. We will discontinue today 11/14/2016. HTN - Continue medication Lasix 40 mg daily, propranolol 20 mg every 6 hours, clonidine 0.3 every 8 hours, labetalol when necessary. - Vasotec PRN. Continue Amlodipine 5mg Qday. PEG in place - Continue tube feedings as ordered [facility] - Monitor for aspiration risk Diarrhea - On the maylin shield - Hold off bowel regimen. - C. difficile negative Hepatitis C - Positive hep C serology - GI follow up as an outpatient. Urinary tract infection - UA positive - Culture showed Rossy albicans less than 10,000 - Switched to condom catheter. Continue betty-care. EtOH, abuse - Folic acid, thiamine DVT prop Lovenox Alternative Code:Intubation Problem Qualifiers (1) Traumatic brain injury: (2) Subdural hemorrhage following injury: Qualified Code: S06.5X1A - Traumatic subdural hemorrhage with loss of consciousness of 30 minutes or less, initial encounter (3) Fracture of occipital bone of skull with loss of consciousness: Qualified Code: S02.119A - Fracture of occipital bone of skull with loss of consciousness, closed, initial encounter Ayse Garza DO Nov 14, 2016 14:53
[2016-11-14] MEDS: LEVOFLOXACIN 750 MG PREMIX INJ 150 ML IV SCH (17:27)
[2016-11-15] VITALS (10 sets, daily range): BP systolic 102–133; BP diastolic 65–78; PULSE 79–93; RESP 16–22; TEMP 97.1–99; O2SAT 94–100
[2016-11-15] MEDS: CHLORHEXIDINE GLUCONATE 2 % 1 PACK (2 CLOTHS) TOP SCH (04:00)
[2016-11-15] MEDS: PROPRANOLOL HCL 20 MG TAB PO SCH ×5 (05:27→23:34)
[2016-11-15] MEDS: cloNIDine HCL 0.3 MG TAB PO SCH ×3 (05:27→23:35)
[2016-11-15] MEDS: PANTOPRAZOLE SODIUM 40 MG VIAL IVP SCH (10:04)
[2016-11-15] MEDS: levETIRAcetam 500 MG/5 ML UDC TUBE SCH ×2 (10:04→23:43)
[2016-11-15] MEDS: POTASSIUM CHLORIDE 25 MEQ EFFERVESCENT TAB TUBE SCH (10:05)
[2016-11-15] MEDS: amLODIPine BESYLATE 5 MG TAB PO SCH (10:05)
[2016-11-15] MEDS: MULTIVITAMIN TAB PO SCH (10:05)
[2016-11-15] MEDS: DOCUSATE SODIUM 100 MG CAP PO SCH ×2 (10:05→23:35)
[2016-11-15] MEDS: THIAMINE HCL 100 MG TAB PO SCH (10:05)
[2016-11-15] MEDS: FUROSEMIDE 40 MG/4 ML VIAL IV PUSH SCH (10:05)
[2016-11-15] MEDS: LACTOBACILLUS ACIDOPHILUS TAB PEG SCH (10:05)
[2016-11-15] MEDS: SODIUM CHLORIDE 0.9% FLUSH 5 ML FLUSH IVF SCH ×2 (10:11→21:00)
[2016-11-15] MEDS: WATER IV SCH ×4 (10:12→23:35)
[2016-11-15] MEDS: CHLORHEXIDINE 0.12% (ORAL KIT) 15 ML CUP MT SCH ×2 (10:12→20:00)
[2016-11-15] MEDS: DEXTROSE 5% IV SCH ×4 (10:12→23:35)
[2016-11-15] MEDS: VALPROATE IV SCH ×4 (10:12→23:35)
[2016-11-15] MEDS: ENOXAPARIN SODIUM 40 MG/0.4 ML SYRINGE SQ SCH (10:13)
[2016-11-15] MEDS: FOLIC ACID 1 MG TAB PO SCH (10:13)
--- NOTE | 2016-11-15 11:47 | HHI.PR ---
Neuropsych Emotional Emotional: UnabletoAssess: Emotional, Anxious/Fearful, Depressed/Sad, Hostile/ Resentful, Irritable/Angry/Frustrate, Labile, Constricted/Blunted Behavior Behavior: Unable to Asses: Behavior, Coping/Acceptance, Cooperative w/ Treatment, Motivation, Frustration Tolerance/Grove, Impulsive/Agitated, Suicidal/ Homicidal Risk Cognitive Cognitive: Unable to Asses: Cognitive, Attention/Concentration, Confused/ Orientation, Insight/Awareness, Judgement/Problem-Solving, Memory Progress Notes/Response to Tx Contents of Sessions: Level of Consciousness Time with Patient: 15 minutes Premorbid psychological status Premorbid Cognitive, Emotional and Behavioral Status: Deferred. 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 The patient has no known psychiatric difficulties. However, substance abuse history is significant for alcohol dependence and tobacco dependence. Behavioral Reactions of Patient and Family/Support System: Tenuous. The patients family has a limited understanding of the complexities of this patient 's brain injury, and the lifestyle barriers that prevent an optimal recovery. They are expected to have ongoing issues of adjustment given the nature of the injury, and this aspect of recovery will require ongoing monitoring. Emotional/Behavioral Status of Patient and Family/Support System: Tenuous. Pertinent issues, if appropriate to this patients clinical care, are described in detail above. Maximizing acute care outcome It is recommended that the patient be monitored for emergent behavioral impulsivity as the medical condition evolves. This patients neuropathological challenges may limit their rehabilitation potential going forward, and these challenges will require specialized therapeutic skills to maximize outcome. Additionally, the patients family is experiencing ongoing issues of adjustment given the traumatic nature of the injury, and they [will need / may benefit] from ongoing psychological assistance. Anticipated Problems Ongoing areas of concern could include behavioral impulsivity, lack of insight and judgment, which is expected to improve with time and treatment, provided he moves past this stage of recovery. Presently, the patient is not following commands. His long duration alcohol dependence and tobacco dependence, which has led to global cerebral atrophy, will serve as a double barrier to his recovery from this injury. Treatment Plan This clinician will continue to follow with you throughout the course of this patients rehabilitation treatment, and I will be available to meet with the patients family/support system to facilitate their understanding and the ongoing care of their family member. The goals of neuropsychological intervention shall be both educational and supportive to the family/support system as is deemed clinically appropriate. [facility] Level: V:Confused-non agitated Diagnosis: (1) Major neurocognitive disorder as late effect of traumatic brain injury with behavioral disturbance Status: Acute (2) Alcohol dependence Status: Acute Progress Note Narrative Ongoing follow-up of patient. This is day 35 post injury. This patient remains alert and awake, but does not follow commands. He remains at a [facility]. I will continue to follow. Kermit Hughes PhD Nov 15, 2016 11:46 am
--- NOTE | 2016-11-15 14:48 | HHI.HCPN ---
Reason for visit a. To assist with evaluation and management of symptoms including: encephalopathy; weakness; dysphagia, pain b. To assist medical decision maker(s) with: better understanding of current medical conditions; weighing benefits/burdens of medical treatment options; making medical treatment decisions. . Subjective/Interval History Patient seen and assessed in room 1535. Patient is awake and alert, tracking with eyes. Left-sided gaze preference. Appears to be trying to mouth words, however unintelligible. Does not nod/shake head to yes/no less chance with any regularity. No spontaneous movement was appreciated at the time of my exam. Does not follow directions. Tracheostomy on 6L via T-piece, oxygen saturation in the 90s. Coarse breath sounds with scattered rhonchi. Suction for large amounts of thin, whitish secretions. Follow-up chest x-ray on 11/08/16 showed right basilar patchiness consistent with probable pneumonia. Sputum culture on 11/09/16 growing Serratia Marcescens. Afebrile. Persistent leukocytosis, most recent WBC of 14.3. Urine culture on growing Rossy Albicans. Speech therapy continues to follow patient who remains NPO secondary to severe profound cognitivecommunicative deficits. PEG tube site C/D/I. Patient tolerating bypass feedings, Jevity 1.5 at 65ml/hour via PEG tube. . . Family/friend interactions She left for patient's Julio pack, on voicemail. . Advance Directives Living Will: Never completed Health Care Surrogate: Never completed Durable Power of Damage Appraiser: Never completed Advance Directive Specifics Date completed: Advanced directives were never completed. . Health Care Surrogate(s): There is no written designation of a health care surrogate. . Documented care wishes: No written documentation of health care preferences/goals/wishes . Objective Vital Signs Date Time Temp Pulse Resp B/P Pulse Ox O2 Delivery O2 Flow Rate FiO2 11/15/16 11:45 98.6 83 16 113/68 94 11/15/16 11:29 85 11/15/16 10:17 94 Face Tent 6.00 28 11/15/16 08:00 97.9 79 16 116/65 96 11/15/16 08:00 Trach Collar 28 11/15/16 06:10 96 T-piece 28 11/15/16 04:00 97.1 93 20 107/69 97 11/15/16 00:00 97.8 84 22 111/69 100 11/14/16 20:00 87 11/14/16 20:00 Trach Collar 28 11/14/16 20:00 98.1 85 22 109/68 97 11/14/16 16:00 98.8 78 16 120/78 99 Intake & Output 11/15/16 11/15/16 07:00 19:00 # Voids 2 1 # Bowel Movements 1 . Physical Exam CONSTITUTIONAL/GENERAL: This is an adequately nourished patient status post trach/PEG tube placement, in no acute distress. TUBES/LINES/DRAINS: Tracheostomy; condom catheter; PIV x 1, SCDs, PEG, Podus. SKIN: Right craniotomy surgical incision healing. HEAD: S/p craniotomy, right skull flap is soft. EYES: Pupils equal, reactive and sluggish. No scleral icterus. No injection or drainage. Fundi not examined. ENT: Nose without bleeding or purulent drainage. NECK: Trachea midline. Tracheostomy patent, site without S/S infection, to T- piece. CARDIOVASCULAR: Heart rate and rhythm regular. No murmurs, gallops, or rubs. RESPIRATORY/CHEST: Tracheostomy to T-piece. Bilateral breath sounds are coarse with scattered rhonchi. GASTROINTESTINAL: Abdomen rounded. BS active x 4. Tolerating tube feedings, PEG tube site appears healthy. GENITOURINARY: Without palpable bladder distension. Condom catheter in place. MUSCULOSKELETAL: Extremities without clubbing, cyanosis. No mottling or clubbing. NEUROLOGICAL: Patient is awake, intermittently tracking with eyes. Appears to be trying to mouth words, however unintelligible. Does not follow commands, no spontaneous movement observed. PSYCHIATRIC: Does not appear to be experiencing anxiety/agitation. . . Diagnostic Tests Laboratory Laboratory Tests Test 11/14/16 04:47 White Blood Count 14.3 TH/MM3 (4.0-11.0) Red Blood Count 3.09 MIL/MM3 (4.50-5.90) Hemoglobin 9.7 GM/DL (13.0-17.0) Hematocrit 28.6 % (39.0-51.0) Mean Corpuscular Volume 92.6 FL (80.0-100.0) Mean Corpuscular Hemoglobin 31.5 PG (27.0-34.0) Mean Corpuscular Hemoglobin 34.0 % Concent (32.0-36.0) Red Cell Distribution Width 14.1 % (11.6-17.2) Platelet Count 403 TH/MM3 (150-450) Mean Platelet Volume 7.2 FL (7.0-11.0) Neutrophils (%) (Auto) 67.8 % (16.0-70.0) Lymphocytes (%) (Auto) 12.5 % (9.0-44.0) Monocytes (%) (Auto) 17.5 % (0.0-8.0) Eosinophils (%) (Auto) 1.7 % (0.0-4.0) Basophils (%) (Auto) 0.5 % (0.0-2.0) Neutrophils # (Auto) 9.7 TH/MM3 (1.8-7.7) Lymphocytes # (Auto) 1.8 TH/MM3 (1.0-4.8) Monocytes # (Auto) 2.5 TH/MM3 (0-0.9) Eosinophils # (Auto) 0.2 TH/MM3 (0-0.4) Basophils # (Auto) 0.1 TH/MM3 (0-0.2) CBC Comment AUTO DIFF Differential Total Cells 100 Counted Neutrophils % (Manual) 62 % (16-70) Band Neutrophils % 6 % (0-6) Lymphocytes % 12 % (9-44) Monocytes % 14 % (0-8) Basophils % 1 % (0-2) Neutrophils # (Manual) 10.4 TH/MM3 (1.8-7.7) Metamyelocytes 3 % (0-1) Myelocytes 2 % (0-0) Differential Comment FINAL DIFF MANUAL Platelet Estimate NORMAL (NORMAL) Platelet Morphology Comment NORMAL (NORMAL) Sodium Level 141 MEQ/L (136-145) Potassium Level 3.7 MEQ/L (3.5-5.1) Chloride Level 103 MEQ/L (98-107) Carbon Dioxide Level 32.7 MEQ/L (21.0-32.0) Anion Gap 5 MEQ/L (5-15) Blood Urea Nitrogen 13 MG/DL (7-18) Creatinine 0.66 MG/DL (0.60-1.30) Estimat Glomerular Filtration 124 ML/MIN Rate (>89) Random Glucose 111 MG/DL (74-106) Calcium Level 8.7 MG/DL (8.5-10.1) . Result Diagram: 11/14/167 11/14/167 Procedures * Anita hole with ICP monitor placed * Right craniectomy * Art line placement * Intubation/mechanical ventilation * Central line placement. * Tracheostomy * Peg tube . Assessment and Plan Disease Oriented Problem List: (1) Traumatic brain injury (2) SAH (subarachnoid hemorrhage) (3) Subdural hemorrhage following injury (4) Fracture of occipital bone of skull with loss of consciousness (5) Encephalopathy acute (6) Alcohol dependence Comment: Long history of 12-15 drinks per day. . (7) Major neurocognitive disorder as late effect of traumatic brain injury with behavioral disturbance (8) Seizure (9) Pneumonia Comment: Probable aspiration. Blood in vomitus were in airway immediately after fall. . (10) Hepatitis C antibody positive in blood (11) Rectal bleeding Comment: Has had years of abdominal pain with intermittent rectal bleeding. Has avoided recommended work-up due to lack on insurance, lack of funds, and fear of results (per shasta). . Symptom Scale: (1) Pain 0-10 Scale: Unable to quantify Comment: Per review of notes: Patient had history of several pain syndromes. He complained of abdominal pain for years with occasional rectal bleeding. He also complained of right ankle pain where he had surgery and achiness in multiple joints. He would use BC powders several times a day and occasionally hydrocodone. Other current sources of pain might include prolonged bedbound status, post op wound/head pain, discomfort from trach/gann/OG/vascular access lines. Orders are in place for PRN oxycodone at this time. These appear to be adequate, no requirements in the past 24 hours. No further recommendations at this time. . (2) Encephalopathy 0-10 Scale: Unable to quantify Comment: This has been multi-factorial and has involved the brain injury, alcohol withdrawal, infection, seizure, etc. Current encephalopathy now mostly due to brain injury, minimal neurological gains have been made. Follow-up EEG on 11/03/16 has significantly improved in comparison to prior reports. No epileptiform features were present. Patient remains on Valproate and Keppra for seizure management. (3) Dyspnea Comment: Respirations are unlabored with coarse air exchange, scattered rhonchi. Status post tracheostomy; on 5-6L oxygen via T-piece with oxygen saturation in the high 90s. Follow-up chest x-ray on 11/08/16 showed right basilar patchiness consistent with probable pneumonia. Sputum culture on growing Serratia Marcescens. . (4) Dysphagia Comment: Speech therapy continues to follow patient who remains NPO secondary to severe profound cognitivecommunicative deficits. PEG tube site C/D/I. Patient tolerating Jevity 1.5 at 65ml/hour via PEG tube. . Pertinent Non-Medical Issues Psychosocial: Social support consists of careyancee, brother, sister and friend - - Patricio Oleary. Spiritual: Jewish background. Yazidism and spirituality have not played an important role in his life. Shasta appreciates cosmetic dentist visits. Legal: No advance directives. Without a designated health care surrogate, decision-making appears to fall to the majority of his siblings. Ethical issues impacting care: Patient is incapacitated to make his own health care decisions. It is unclear if/when he will regain capacity. . Important Contacts * Brandy Workman (spouse) [phone] or [phone] * Amanda "Manuela"reynold (sister) - [facility] proxy: * Perez Schroeder" (brother) [phone] * Amanda "Jamila" Ubaldo (niece) [phone] . 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 It is unclear if he had some sort of event causing the fall (he had vomitus and blood in his airway at time of fall) or merely fell. His injuries include occipital bone fracture, SDH, SAH. Complications include EtOH withdrawal, aspiration pneumonia. He has had high ICPs and ultimately underwent right sided craniectomy for decompression. He has had seizure activity. There has been little evidence so far of meaningful neurological recovery. Neurosurgery feels there continues to be a reasonable chance of meaningful neurologic recovery (though it will take a lot of time) and is recommending ongoing aggressive care. . Code Status: Alternative Code (Intubation only) Plan == Code Status: FULL CODE == Decision making: Mr. Nixon is incapacitated to make his own health care decisions and it is unclear if/when he will regain capacity. Patient is not legally , has no children, and the parents who adopted him are . Under the [place] Statutes, decision making would fall to the patient's adoptive siblings -- Amanda and Demarco. Demarco has agreed to defer decision making to sister (Amanda) so AMANDA IS THE OFFICIAL PROXY DECISION MAKER. The patient's fiancee -- Brandy Workman - has no decision making authority, but the siblings are including her in the conversations. == Goals of medical treatment: Goals remain aggressive, hopeful patient will be placed in a SNF for rehabiliatation == Status post tracheostomy on 10/28/16 and PEG tube placement on 10/29/16. == Encephalopathy: This has been multi-factorial and has involved the brain injury, alcohol withdrawal, infection, seizure, etc. Current encephalopathy now mostly due to brain injury, minimal neurological gains have been made. Follow-up EEG on 11/03/16 has significantly improved in comparison to prior reports. No epileptiform features were present. Patient remains on Valproate and Keppra for seizure management. == Pain: Patient had history of several pain syndromes. He complained of abdominal pain for years with occasional rectal bleeding. He also complained of right ankle pain where he had surgery and achiness in multiple joints. He would use BC powders several times a day and occasionally hydrocodone. Other current sources of pain might include prolonged bedbound status, post op wound/ head pain, discomfort from trach/gann/OG/vascular access lines. Orders are in place for PRN oxycodone at this time. These appear to be adequate, no requirements the past 24 hours No further recommendations at this time. == Dyspnea: Respirations are unlabored with scattered rales status post tracheostomy; on 5L oxygen via T-piece with oxygen saturation in the 90s. Respirations are unlabored with coarse air exchange, scattered rhonchi. Status post tracheostomy; on 5-6L oxygen via T-piece with oxygen saturation in the high 90s. Follow-up chest x-ray on 11/08/16 showed right basilar patchiness consistent with probable pneumonia. Sputum culture on 11/09/16 growing Serratia Marcescens. . == Dysphagia: Speech therapy continues to follow patient who remains NPO secondary to severe profound cognitivecommunicative deficits. PEG tube site C/D /I. Patient tolerating Jevity 1.5 at 65ml/hour via PEG tube. == Palliative care will continue to follow to assist with symptom management and to further clarify goals of medical treatment as the clinical course evolves. . Attestation To help prompt me to consider important information that might be impacting today's encounter and assessment, information from prior notes written by myself or my colleagues may have been "brought forward" into today's note. My signature on this note, however, is an attestation that I personally performed the exam, history, and/or decision-making noted today, and, unless otherwise indicated, the interactions with patient, family, and staff as well as the review of records all occurred today. I also attest that the listed assessment and stated plan reflect my best clinical judgment today based on the combination of historical information, prior notes, and today's exam/ interactions. When time spent is documented, it refers only to time spent today by the signer, or if indicated, combined time spent today by collaborating physician/nurse practitioner. . Татьяна Hauser Nov 15, 2016 14:48
--- NOTE | 2016-11-15 19:05 | HHI.PR ---
Subjective Remarks 56 YOWM with Fall,ICH,ventriculostomy RF, has trach moderate amount of trach secretions. Alert, awake, looks around No fever Objective Vital Signs Vital Signs Date Time Temp Pulse Resp B/P Pulse Ox O2 Delivery O2 Flow Rate FiO2 11/15/16 16:15 99.0 84 16 102/65 95 11/15/16 11:45 98.6 83 16 113/68 94 11/15/16 11:29 85 11/15/16 10:17 94 Face Tent 6.00 28 11/15/16 08:00 97.9 79 16 116/65 96 11/15/16 08:00 Trach Collar 28 11/15/16 06:10 96 T-piece 28 11/15/16 04:00 97.1 93 20 107/69 97 11/15/16 00:00 97.8 84 22 111/69 100 11/14/16 20:00 87 11/14/16 20:00 Trach Collar 28 11/14/16 20:00 98.1 85 22 109/68 97 I/O 11/14/16 11/14/16 11/14/16 11/15/16 11/15/16 11/15/16 07:00 15:00 23:00 07:00 15:00 23:00 Output Total 800 ml 4 ml Balance -800 ml -4 ml Output Urine Total 800 ml 4 ml # Voids 2 1 1 # Bowel Movements 1 1 1 2 Result Diagram: 11/14/1644611/14/16446 Objective Remarks GENERAL: WBWN male, On Trach SKIN: Warm and dry. HEAD: Normocephalic. EYES: No scleral icterus. No injection or drainage. NECK: Supple, trachea midline. No JVD or lymphadenopathy. trach in place CARDIOVASCULAR: Regular rate and rhythm without murmurs, gallops, or rubs. RESPIRATORY: Breath sounds equal bilaterally. No accessory muscle use. GASTROINTESTINAL: Abdomen soft, non-tender, nondistended. PEG in place MUSCULOSKELETAL: No cyanosis, or edema. BACK: Nontender without obvious deformity. No CVA tenderness. A/P Assessment and Plan RF. s/p Trach s/P Ventriculostomy PEG placement PLAN: Aerosol nebs SQ Lovenox TF Trach suction prn Palliative care evaluating pt. Murphy Cm MD Nov 15, 2016 19:05
[2016-11-16] VITALS (10 sets, daily range): BP systolic 115–151; BP diastolic 69–79; PULSE 81–91; RESP 18–20; TEMP 97.1–98.9; O2SAT 94–98
[2016-11-16] MEDS: CHLORHEXIDINE GLUCONATE 2 % 1 PACK (2 CLOTHS) TOP SCH (03:57)
[2016-11-16] MEDS: PROPRANOLOL HCL 20 MG TAB PO SCH ×3 (05:50→17:48)
[2016-11-16] MEDS: cloNIDine HCL 0.3 MG TAB PO SCH ×2 (05:50→12:59)
[2016-11-16] MEDS: FUROSEMIDE 40 MG/4 ML VIAL IV PUSH SCH (09:20)
[2016-11-16] MEDS: PANTOPRAZOLE SODIUM 40 MG VIAL IVP SCH (09:21)
[2016-11-16] MEDS: levETIRAcetam 500 MG/5 ML UDC TUBE SCH (09:23)
[2016-11-16] MEDS: DOCUSATE SODIUM 100 MG CAP PO SCH (09:23)
[2016-11-16] MEDS: THIAMINE HCL 100 MG TAB PO SCH (09:23)
[2016-11-16] MEDS: MULTIVITAMIN TAB PO SCH (09:23)
[2016-11-16] MEDS: amLODIPine BESYLATE 5 MG TAB PO SCH (09:23)
[2016-11-16] MEDS: POTASSIUM CHLORIDE 25 MEQ EFFERVESCENT TAB TUBE SCH (09:23)
[2016-11-16] MEDS: FOLIC ACID 1 MG TAB PO SCH (09:23)
[2016-11-16] MEDS: LACTOBACILLUS ACIDOPHILUS TAB PEG SCH (09:23)
[2016-11-16] MEDS: CHLORHEXIDINE 0.12% (ORAL KIT) 15 ML CUP MT SCH ×2 (09:24→20:00)
[2016-11-16] MEDS: SODIUM CHLORIDE 0.9% FLUSH 5 ML FLUSH IVF SCH (09:42)
--- NOTE | 2016-11-16 12:01 | HHI.PR ---
Subjective Remarks 56 YOWM with Fall,ICH,ventriculostomy RF, has trach moderate amount of trach secretions. Alert, awake, looks around No fever Tries to talk Objective Vital Signs Vital Signs Date Time Temp Pulse Resp B/P Pulse Ox O2 Delivery O2 Flow Rate FiO2 11/16/16 09:52 97 Trach Collar 28 11/16/16 08:47 97 T-piece 6.00 28 11/16/16 08:32 97.1 81 18 115/69 98 11/16/16 06:00 98.9 86 20 123/69 95 11/16/16 03:30 98 Trach Collar 28 11/16/16 01:14 82 11/16/16 00:42 98.0 91 19 151/79 96 11/15/16 22:20 99 T-piece 6.00 11/15/16 22:03 98 Trach Collar 28 11/15/16 21:27 98.8 87 19 133/78 100 11/15/16 16:15 99.0 84 16 102/65 95 I/O 11/15/16 11/15/16 11/15/16 11/16/16 11/16/16 11/16/16 07:00 15:00 23:00 07:00 15:00 23:00 Intake Total 0 ml Output Total 250 ml 100 ml Balance -250 ml -100 ml Intake Oral 0 ml Output Urine Total 250 ml 100 ml # Voids 1 2 2 # Bowel Movements 1 3 0 Result Diagram: 11/14/1644611/14/16446 Objective Remarks GENERAL: WBWN male, On Trach SKIN: Warm and dry. HEAD: Normocephalic. EYES: No scleral icterus. No injection or drainage. NECK: Supple, trachea midline. No JVD or lymphadenopathy. trach in place CARDIOVASCULAR: Regular rate and rhythm without murmurs, gallops, or rubs. RESPIRATORY: Breath sounds equal bilaterally. No accessory muscle use. GASTROINTESTINAL: Abdomen soft, non-tender, nondistended. PEG in place MUSCULOSKELETAL: No cyanosis, or edema. BACK: Nontender without obvious deformity. No CVA tenderness. A/P Assessment and Plan RF. s/p Trach s/P Ventriculostomy PEG placement PLAN: Aerosol nebs SQ Lovenox TF Trach suction prn Palliative care evaluating pt. Murphy Cm MD Nov 16, 2016 12:01
[2016-11-16] MEDS: VALPROATE IV SCH ×2 (12:58)
[2016-11-16] MEDS: WATER IV SCH ×2 (12:58)
[2016-11-16] MEDS: DEXTROSE 5% IV SCH ×2 (12:58)
[2016-11-16] MEDS: ENOXAPARIN SODIUM 40 MG/0.4 ML SYRINGE SQ SCH (12:59)
--- NOTE | 2016-11-16 23:02 | HHI.PR ---
Subjective Remarks Follow-up visit pneumonia, trauma status post fall, subdural subarachnoid hemorrhage. Patient is accompanied by his fiance and best friend. Patient is much more alert, smiling, mouthing words. Moving his hands and toes as well. Objective Vitals Vital Signs Date Time Temp Pulse Resp B/P Pulse Ox O2 Delivery O2 Flow Rate FiO2 11/16/16 22:01 97 T-piece 6.00 28 11/16/16 20:22 98.1 81 20 142/76 96 11/16/16 16:00 97.1 83 18 129/71 95 11/16/16 15:43 85 11/16/16 12:00 98.2 84 18 119/71 94 11/16/16 09:52 97 Trach Collar 28 11/16/16 08:47 97 T-piece 6.00 11/16/16 08:32 97.1 81 18 115/69 98 11/16/16 06:00 98.9 86 20 123/69 95 11/16/16 03:30 98 Trach Collar 28 11/16/16 01:14 82 11/16/16 00:42 98.0 91 19 151/79 96 I/O 11/15/16 11/15/16 11/15/16 11/16/16 11/16/16 11/16/16 07:00 15:00 23:00 07:00 15:00 23:00 Intake Total 0 ml Output Total 250 ml 100 ml 1150 ml Balance -250 ml -100 ml -1150 ml Intake Oral 0 ml Output Urine Total 250 ml 100 ml 1150 ml # Voids 1 2 2 # Bowel Movements 1 3 0 Result Diagram: 11/14/16 0447 11/14/16 0447 Imaging Last Impressions Chest X-Ray 11/09/16 0000 Signed Impressions: Service Date/Time: Wednesday, November 09, 2016 17:22 - CONCLUSION: Right basilar patchiness consistent with probable pneumonia. Clinical correlation is recommended. Jose James MD Lower Extremity Ultrasound 10/27/16 0000 Signed Impressions: Service Date/Time: Thursday, October 27, 2016 10:13 - CONCLUSION: No DVT either lower extremity. 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 MD Head CT 10/23/16 0000 Signed Impressions: Service Date/Time: Sunday, October 23, 2016 11:21 - CONCLUSION: 1. Examination quality is degraded by motion artifact. There is decreased midline shift, currently measuring 3 mm compared to 6 mm on the prior study. 2. There are persistent hemorrhagic contusions in the right frontal lobe but they are less well-visualized today either related to interval improvement or related to motion artifact. Red Arenas MD Chest CT 10/23/16 0000 Signed Impressions: Service Date/Time: Sunday, October 23, 2016 11:24 - CONCLUSION: 1. Airspace consolidation within the left upper lobe. This could represent an infectious process. 2. Small bilateral pleural effusions with associated compressive atelectasis in the lower lobes. Red Arenas MD Abdomen/Pelvis CT 10/23/16 0000 Signed Impressions: Service Date/Time: Sunday, October 23, 2016 11:27 - CONCLUSION: 1. No acute finding is identified within the abdomen or pelvis. 2. Anasarca. 3. Stable 7 mm nodule on the left adrenal gland. Small size favors a benign process but is incompletely characterized on this examination. Red Arenas MD Neck CTA 10/12/16 0000 Signed Impressions: Service Date/Time: Wednesday, October 12, 2016 09:27 - CONCLUSION: Mild atherosclerotic changes in the proximal portions of both internal carotid arteries but no significant stenosis. Dez Petersen MD Head CTA 10/12/16 0000 Signed Impressions: Service Date/Time: Wednesday, October 12, 2016 09:27 - CONCLUSION: No evidence of acute vascular injury Red Hoffman MD Pelvis X-Ray 10/11/16 1213 Signed Impressions: Service Date/Time: Tuesday, October 11, 2016 12:02 - CONCLUSION: Satisfactory trauma pelvis appearance. Red Hoffman MD Cervical Spine CT 10/11/16 1213 Signed Impressions: Service Date/Time: Tuesday, October 11, 2016 12:19 - CONCLUSION: Occipital skull fracture. No evidence of acute traumatic injury in the cervical spine Red Hoffman MD Objective Remarks GENERAL: Alert, NAD. Opens eyes, mouths words, nods, moves upper and lower ext. Better movement with upper ext. SKIN: Warm and dry. HEAD: Normocephalic. EYES: No scleral icterus. No injection or drainage. NECK: Supple, trachea midline. No JVD or lymphadenopathy. CARDIOVASCULAR: Regular rate and rhythm without murmurs, gallops, or rubs. RESPIRATORY: Coarse breath sounds with scattered rhonchi. GASTROINTESTINAL: Abdomen soft, non-tender, nondistended. MUSCULOSKELETAL: No cyanosis, or edema. BACK: Nontender without obvious deformity. No CVA tenderness. Procedures 10/27/2016 Blue rhino tracheostomy 10/18/2016 Left frontal bur hole with placement of an intracranial pressure Right frontotemporoparietal decompressive craniectomy with evacuation of subdural hematoma 10/13/2016 Right frontal [place] hole with placement of a ventriculostomy catheter Date of Insertion: Oct 11, 2016 A/P Problem List: (1) Encephalopathy ICD Code: G93.40 Status: Acute (2) Pneumonia ICD Code: J18.9 Status: Acute (3) SAH (subarachnoid hemorrhage) ICD Code: I60.9 Status: Acute (4) Major neurocognitive disorder as late effect of traumatic brain injury with behavioral disturbance ICD Code: S06.9X9S Status: Acute (5) Traumatic brain injury ICD Code: S06.9X9A Status: Chronic (6) Subdural hemorrhage following injury ICD Code: S06.5X9A Status: Acute (7) Fracture of occipital bone of skull with loss of consciousness ICD Code: S02.119A Status: Acute (8) Hepatitis C antibody positive in blood ICD Code: R76.8 Status: Acute (9) Rash ICD Code: R21 Status: Acute Assessment and Plan Patient is a 56-year-old male who came to the hospital on 10/11/16 as a trauma patient. As per report, patient was on a ladder and fell approximately 10 feet. Bystander on the scene perform CPR for approximately 2 minutes stating the patient was blue. On EMS arrival patient is reported to have a GCS of 6, which improved at the time of ED arrival to GCS of 11. Imaging studies showed occipital fracture subdural and subarachnoid hemorrhage. The patient developed worsening agitation he was intubated and placed on mechanical ventilation. Repeat CT in 24 hours showed worsening of bilateral subdural subarachnoid hemorrhage with right temporal parietal subdural hemorrhage with 9 mL leftward midline shift. S/P Craniotomy and drain. Pt. now on tracheostomy and PEG tube placed. Consulted for transfer of care. Trauma, status post fall from a ladder Skull fracture, occipital Subarachnoid hemorrhage Subdural hemorrhage Status post craniotomy Encephalopathy - Rehabilitation medicine following. - Continue Keppra, valproic acid. - Seizure precaution - Continue physical therapy occupational therapy for deconditioning Tracheostomy Pneumonia, HCAP vs. Aspiration pneumonia, possibly S. Aureus/ Anaerobes - Leukocytosis continues WBC 13.0 --> 14.5 - Reviewed chest xray repeat 11/10/16- Right basilar patchiness consistent with probable pneumonia. Likely aspiration pneumonia. - 11/04/16 Chest x-ray showed patchy right lung base opacity nonspecific. repeat chest x-ray showed no significant changes occurred. - Continue pulmonary toileting. - Neb treatments - Pulmonology following input appreciated. - Plan to wean off tracheostomy. Currently on trach collar FiO2 28% - Suction when necessary. Oral and trach care. - Aspiration precaution. - Levaquin and Flagyl IV. We will discontinue today 11/14/2016. HTN - Continue medication Lasix 40 mg daily, propranolol 20 mg every 6 hours, clonidine 0.3 every 8 hours, labetalol when necessary. - Vasotec PRN. Continue Amlodipine 5mg Qday. PEG in place - Continue tube feedings as ordered Jevity - Monitor for aspiration risk Diarrhea - On the maylin shield - Hold off bowel regimen. - C. difficile negative Hepatitis C - Positive hep C serology - GI follow up as an outpatient. Urinary tract infection - UA positive - Culture showed Rossy albicans less than 10,000 - Switched to condom catheter. Continue betty-care. EtOH, abuse - Folic acid, thiamine DVT prop Lovenox Alternative Code:Intubation Discharge plan: Patient will benefit from increased amount of PT/OT/ST. SSI pending. Problem Qualifiers (1) Traumatic brain injury: (2) Subdural hemorrhage following injury: Qualified Code: S06.5X1A - Traumatic subdural hemorrhage with loss of consciousness of 30 minutes or less, initial encounter (3) Fracture of occipital bone of skull with loss of consciousness: Qualified Code: S02.119A - Fracture of occipital bone of skull with loss of consciousness, closed, initial encounter Ayse Garza DO Nov 16, 2016 23:02
--- NOTE | 2016-11-16 23:48 | HHI.PR ---
Subjective Remarks Late entry for 11/15/2016 Follow-up visit pneumonia, trauma status post fall, subdural subarachnoid hemorrhage. Patient continues to show neurological improvements. Opens his eyes , nods. Objective Vitals Vital Signs Date Time Temp Pulse Resp B/P Pulse Ox O2 Delivery O2 Flow Rate FiO2 11/16/16 22:01 97 T-piece 6.00 28 11/16/16 20:22 98.1 81 20 142/76 96 11/16/16 16:00 97.1 83 18 129/71 95 11/16/16 15:43 85 11/16/16 12:00 98.2 84 18 119/71 94 11/16/16 09:52 97 Trach Collar 28 11/16/16 08:47 97 T-piece 6.00 28 11/16/16 08:32 97.1 81 18 115/69 98 11/16/16 06:00 98.9 86 20 123/69 95 11/16/16 03:30 98 Trach Collar 28 11/16/16 01:14 82 11/16/16 00:42 98.0 91 19 151/79 96 I/O 11/15/16 11/15/16 11/15/16 11/16/16 11/16/16 11/16/16 07:00 15:00 23:00 07:00 15:00 23:00 Intake Total 0 ml Output Total 250 ml 100 ml 1150 ml 200 ml Balance -250 ml -100 ml -1150 ml -200 ml Intake Oral 0 ml Output Urine Total 250 ml 100 ml 1150 ml 200 ml # Voids 1 2 2 # Bowel Movements 1 3 0 Result Diagram: 11/14/16 0447 11/14/16 0447 Objective Remarks GENERAL: Alert, NAD. SKIN: Warm and dry. HEAD: Normocephalic. EYES: No scleral icterus. No injection or drainage. NECK: Supple, trachea midline. No JVD or lymphadenopathy. CARDIOVASCULAR: Regular rate and rhythm without murmurs, gallops, or rubs. RESPIRATORY: Coarse breath sounds with scattered rhonchi. GASTROINTESTINAL: Abdomen soft, non-tender, nondistended. MUSCULOSKELETAL: No cyanosis, or edema. BACK: Nontender without obvious deformity. No CVA tenderness. Procedures 10/27/2016 Blue rhino tracheostomy 10/18/2016 Left frontal bur hole with placement of an intracranial pressure Right frontotemporoparietal decompressive craniectomy with evacuation of subdural hematoma 10/13/2016 Right frontal [place] hole with placement of a ventriculostomy catheter Date of Insertion: Oct 11, 2016 A/P Problem List: (1) Encephalopathy ICD Code: G93.40 Status: Acute (2) Pneumonia ICD Code: J18.9 Status: Acute (3) SAH (subarachnoid hemorrhage) ICD Code: I60.9 Status: Acute (4) Major neurocognitive disorder as late effect of traumatic brain injury with behavioral disturbance ICD Code: S06.9X9S Status: Acute (5) Traumatic brain injury ICD Code: S06.9X9A Status: Chronic (6) Subdural hemorrhage following injury ICD Code: S06.5X9A Status: Acute (7) Fracture of occipital bone of skull with loss of consciousness ICD Code: S02.119A Status: Acute (8) Hepatitis C antibody positive in blood ICD Code: R76.8 Status: Acute (9) Rash ICD Code: R21 Status: Acute Assessment and Plan Patient is a 56-year-old male who came to the hospital on 10/11/16 as a trauma patient. As per report, patient was on a ladder and fell approximately 10 feet. Bystander on the scene perform CPR for approximately 2 minutes stating the patient was blue. On EMS arrival patient is reported to have a GCS of 6, which improved at the time of ED arrival to GCS of 11. Imaging studies showed occipital fracture subdural and subarachnoid hemorrhage. The patient developed worsening agitation he was intubated and placed on mechanical ventilation. Repeat CT in 24 hours showed worsening of bilateral subdural subarachnoid hemorrhage with right temporal parietal subdural hemorrhage with 9 mL leftward midline shift. S/P Craniotomy and drain. Pt. now on tracheostomy and PEG tube placed. Consulted for transfer of care. Trauma, status post fall from a ladder Skull fracture, occipital Subarachnoid hemorrhage Subdural hemorrhage Status post craniotomy Encephalopathy - Rehabilitation medicine following. - Continue Keppra, valproic acid. - Seizure precaution - Continue physical therapy occupational therapy for deconditioning Tracheostomy Pneumonia, HCAP vs. Aspiration pneumonia, possibly S. Aureus/ Anaerobes - Leukocytosis continues WBC 13.0 --> 14.5 - Reviewed chest xray repeat 11/10/16- Right basilar patchiness consistent with probable pneumonia. Likely aspiration pneumonia. - 3/16/17 Chest x-ray showed patchy right lung base opacity nonspecific. repeat chest x-ray showed no significant changes occurred. - Continue pulmonary toileting. - Neb treatments - Pulmonology following input appreciated. - Plan to wean off tracheostomy. Currently on trach collar FiO2 28% - Suction when necessary. Oral and trach care. - Aspiration precaution. - Levaquin and Flagyl IV. We will discontinue today 11/14/2016. HTN - Continue medication Lasix 40 mg daily, propranolol 20 mg every 6 hours, clonidine 0.3 every 8 hours, labetalol when necessary. - Vasotec PRN. Continue Amlodipine 5mg Qday. PEG in place - [facility] - Monitor for aspiration risk Diarrhea - On the maylin shield - Hold off bowel regimen. - C. difficile negative Hepatitis C - Positive hep C serology - GI follow up as an outpatient. Urinary tract infection - UA positive - Culture showed Rossy albicans less than 10,000 - Switched to condom catheter. Continue betty-care. EtOH, abuse - Folic acid, thiamine DVT prop Lovenox Alternative Code:Intubation 11/15/2016 : No change in management. SSI pending. Problem Qualifiers (1) Traumatic brain injury: (2) Subdural hemorrhage following injury: Qualified Code: S06.5X1A - Traumatic subdural hemorrhage with loss of consciousness of 30 minutes or less, initial encounter (3) Fracture of occipital bone of skull with loss of consciousness: Qualified Code: S02.119A - Fracture of occipital bone of skull with loss of consciousness, closed, initial encounter Ayse Garza DO Nov 16, 2016 23:48
[2016-11-17] VITALS (11 sets, daily range): BP systolic 108–131; BP diastolic 64–79; PULSE 82–92; RESP 19–22; TEMP 95.8–98.2; O2SAT 95–98
[2016-11-17] MEDS: levETIRAcetam 500 MG/5 ML UDC TUBE SCH ×3 (00:03→22:39)
[2016-11-17] MEDS: DOCUSATE SODIUM 100 MG CAP PO SCH ×3 (00:03→22:38)
[2016-11-17] MEDS: WATER IV SCH ×6 (00:03→22:46)
[2016-11-17] MEDS: SODIUM CHLORIDE 0.9% FLUSH 5 ML FLUSH IVF SCH ×3 (00:03→22:39)
[2016-11-17] MEDS: PROPRANOLOL HCL 20 MG TAB PO SCH ×4 (00:03→18:11)
[2016-11-17] MEDS: VALPROATE IV SCH ×6 (00:03→22:46)
[2016-11-17] MEDS: DEXTROSE 5% IV SCH ×6 (00:03→22:46)
[2016-11-17] MEDS: cloNIDine HCL 0.3 MG TAB PO SCH ×4 (00:03→22:38)
[2016-11-17] MEDS: CHLORHEXIDINE GLUCONATE 2 % 1 PACK (2 CLOTHS) TOP SCH (03:23)
[2016-11-17] MEDS: CHLORHEXIDINE 0.12% (ORAL KIT) 15 ML CUP MT SCH ×2 (08:00→20:00)
[2016-11-17] MEDS: POTASSIUM CHLORIDE 25 MEQ EFFERVESCENT TAB TUBE SCH (10:25)
[2016-11-17] MEDS: MULTIVITAMIN TAB PO SCH (10:25)
[2016-11-17] MEDS: FOLIC ACID 1 MG TAB PO SCH (10:25)
[2016-11-17] MEDS: LACTOBACILLUS ACIDOPHILUS TAB PEG SCH (10:25)
[2016-11-17] MEDS: amLODIPine BESYLATE 5 MG TAB PO SCH (10:25)
[2016-11-17] MEDS: THIAMINE HCL 100 MG TAB PO SCH (10:25)
[2016-11-17] MEDS: ENOXAPARIN SODIUM 40 MG/0.4 ML SYRINGE SQ SCH (13:31)
--- NOTE | 2016-11-17 14:08 | HHI.PR ---
Neuropsych Emotional Emotional: UnabletoAssess: Emotional, Anxious/Fearful, Depressed/Sad, Hostile/ Resentful, Irritable/Angry/Frustrate, Labile, Constricted/Blunted Behavior Behavior: Unable to Asses: Behavior, Coping/Acceptance, Cooperative w/ Treatment, Motivation, Frustration Tolerance/[place]err[place], Impulsive/Agitated, Suicidal/ Homicidal Risk Cognitive Cognitive: Unable to Asses: Cognitive, Attention/Concentration, Confused/ Orientation, Insight/Awareness, Judgement/Problem-Solving, Memory Progress Notes/Response to Tx Time with Patient: 15 minutes Premorbid psychological status Premorbid Cognitive, Emotional and Behavioral Status: Deferred. 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 The patient has no known psychiatric difficulties. However, substance abuse history is significant for alcohol dependence and tobacco dependence. Behavioral Reactions of Patient and Family/Support System: Tenuous. The patients family has a limited understanding of the complexities of this patient 's brain injury, and the lifestyle barriers that prevent an optimal recovery. They are expected to have ongoing issues of adjustment given the nature of the injury, and this aspect of recovery will require ongoing monitoring. Emotional/Behavioral Status of Patient and Family/Support System: Tenuous. Pertinent issues, if appropriate to this patients clinical care, are described in detail above. Maximizing acute care outcome It is recommended that the patient be monitored for emergent behavioral impulsivity as the medical condition evolves. This patients neuropathological challenges may limit their rehabilitation potential going forward, and these challenges will require specialized therapeutic skills to maximize outcome. Additionally, the patients family is experiencing ongoing issues of adjustment given the traumatic nature of the injury, and they [will need / may benefit] from ongoing psychological assistance. Anticipated Problems Ongoing areas of concern could include behavioral impulsivity, lack of insight and judgment, which is expected to improve with time and treatment, provided he moves past this stage of recovery. Presently, the patient is not following commands. His long duration alcohol dependence and tobacco dependence, which has led to global cerebral atrophy, will serve as a double barrier to his recovery from this injury. Treatment Plan This clinician will continue to follow with you throughout the course of this patients rehabilitation treatment, and I will be available to meet with the patients family/support system to facilitate their understanding and the ongoing care of their family member. The goals of neuropsychological intervention shall be both educational and supportive to the family/support system as is deemed clinically appropriate. [facility] Level: V:Confused-non agitated Diagnosis: (1) Major neurocognitive disorder as late effect of traumatic brain injury with behavioral disturbance Status: Acute (2) Alcohol dependence Status: Acute Progress Note Narrative Ongoing follow-up of patient seen in his hospital room. This is day 36 post injury. Generally, the patient is awake, and obviously alert, but he does not follow commands, nor does he otherwise attempt to communicate his wants or desires. He remains at a [facility]. I will continue to follow with you. Kermit Hughes PhD Nov 17, 2016 2:08 pm
[2016-11-17] MEDS: FUROSEMIDE 40 MG/4 ML VIAL IV PUSH SCH (14:44)
[2016-11-17] MEDS: PANTOPRAZOLE SODIUM 40 MG VIAL IVP SCH (14:48)
--- NOTE | 2016-11-17 16:03 | HHI.PR ---
Subjective Remarks 56 YOWM with Fall,ICH,ventriculostomy RF, has trach moderate amount of trach secretions. Alert, awake, looks around No fever No fever Objective Vital Signs Vital Signs Date Time Temp Pulse Resp B/P Pulse Ox O2 Delivery O2 Flow Rate FiO2 11/17/16 12:00 97.9 92 22 108/68 97 11/17/16 11:46 95 T-piece 28 11/17/16 08:00 97.5 83 22 131/72 97 11/17/16 06:30 98 Trach Collar 28 11/17/16 04:39 98.2 82 20 111/64 96 11/17/16 04:28 98 Trach Collar 28 11/17/16 02:54 82 11/17/16 01:23 97 T-Piece 28 Humidified 11/17/16 00:55 98.0 91 20 118/79 96 11/16/16 22:01 97 T-piece 6.00 11/16/16 20:22 98.1 81 20 142/76 96 I/O 11/16/16 11/16/16 11/16/16 11/17/16 11/17/16 11/17/16 07:00 15:00 23:00 07:00 15:00 23:00 Intake Total 0 ml Output Total 100 ml 1150 ml 200 ml Balance -100 ml -1150 ml -200 ml Intake Oral 0 ml Output Urine Total 100 ml 1150 ml 200 ml # Voids 2 2 2 # Bowel Movements 0 1 1 Result Diagram: 11/14/167 11/14/16 0447 Objective Remarks GENERAL: WBWN male, On Trach SKIN: Warm and dry. HEAD: Normocephalic. EYES: No scleral icterus. No injection or drainage. NECK: Supple, trachea midline. No JVD or lymphadenopathy. trach in place CARDIOVASCULAR: Regular rate and rhythm without murmurs, gallops, or rubs. RESPIRATORY: Breath sounds equal bilaterally. No accessory muscle use. GASTROINTESTINAL: Abdomen soft, non-tender, nondistended. PEG in place MUSCULOSKELETAL: No cyanosis, or edema. BACK: Nontender without obvious deformity. No CVA tenderness. A/P Assessment and Plan RF. s/p Trach s/P Ventriculostomy PEG placement PLAN: Aerosol nebs SQ Lovenox TF Trach suction prn Palliative care evaluating pt. Murphy Cm MD Nov 17, 2016 16:03
--- NOTE | 2016-11-17 18:02 | HHI.PR ---
Subjective Remarks Follow-up visit pneumonia, trauma status post fall, subdural subarachnoid hemorrhage. Patient is alert, tried to say a few words but difficult to understand. Moves his limbs slightly. Objective Vitals Vital Signs Date Time Temp Pulse Resp B/P Pulse Ox O2 Delivery O2 Flow Rate FiO2 11/17/16 16:00 95.8 91 21 118/64 97 11/17/16 12:00 97.9 92 22 108/68 97 11/17/16 11:46 95 T-piece 28 11/17/16 08:00 97.5 83 22 131/72 97 11/17/16 06:30 98 Trach Collar 28 11/17/16 04:39 98.2 82 20 111/64 96 11/17/16 04:28 98 Trach Collar 28 11/17/16 02:54 82 11/17/16 01:23 97 T-Piece 28 Humidified 11/17/16 00:55 98.0 91 20 118/79 96 11/16/16 22:01 97 T-piece 6.00 28 11/16/16 20:22 98.1 81 20 142/76 96 I/O 11/16/16 11/16/16 11/16/16 11/17/16 11/17/16 11/17/16 07:00 15:00 23:00 07:00 15:00 23:00 Intake Total 0 ml Output Total 100 ml 1150 ml 200 ml Balance -100 ml -1150 ml -200 ml Intake Oral 0 ml Output Urine Total 100 ml 1150 ml 200 ml # Voids 2 2 2 # Bowel Movements 0 1 1 Result Diagram: 11/14/16 0447 11/14/16 0447 Objective Remarks GENERAL: Alert, NAD. Opens eyes, mouths words, nods, moves upper and lower ext. Better movement with upper ext. SKIN: Warm and dry. HEAD: Normocephalic. EYES: No scleral icterus. No injection or drainage. NECK: Supple, trachea midline. No JVD or lymphadenopathy. CARDIOVASCULAR: Regular rate and rhythm without murmurs, gallops, or rubs. RESPIRATORY: Coarse breath sounds with scattered rhonchi. GASTROINTESTINAL: Abdomen soft, non-tender, nondistended. MUSCULOSKELETAL: No cyanosis, or edema. BACK: Nontender without obvious deformity. No CVA tenderness. Procedures 10/27/2016 Blue rhino tracheostomy 10/18/2016 Left frontal bur hole with placement of an intracranial pressure Right frontotemporoparietal decompressive craniectomy with evacuation of subdural hematoma 10/13/2016 Right frontal Anita hole with placement of a ventriculostomy catheter Date of Insertion: Oct 11, 2016 A/P Problem List: (1) Encephalopathy ICD Code: G93.40 Status: Acute (2) Pneumonia ICD Code: J18.9 Status: Acute (3) SAH (subarachnoid hemorrhage) ICD Code: I60.9 Status: Acute (4) Major neurocognitive disorder as late effect of traumatic brain injury with behavioral disturbance ICD Code: S06.9X9S Status: Acute (5) Traumatic brain injury ICD Code: S06.9X9A Status: Chronic (6) Subdural hemorrhage following injury ICD Code: S06.5X9A Status: Acute (7) Fracture of occipital bone of skull with loss of consciousness ICD Code: S02.119A Status: Acute (8) Hepatitis C antibody positive in blood ICD Code: R76.8 Status: Acute (9) Rash ICD Code: R21 Status: Acute Assessment and Plan Patient is a 56-year-old male who came to the hospital on 10/11/16 as a trauma patient. As per report, patient was on a ladder and fell approximately 10 feet. Bystander on the scene perform CPR for approximately 2 minutes stating the patient was blue. On EMS arrival patient is reported to have a GCS of 6, which improved at the time of ED arrival to GCS of 11. Imaging studies showed occipital fracture subdural and subarachnoid hemorrhage. The patient developed worsening agitation he was intubated and placed on mechanical ventilation. Repeat CT in 24 hours showed worsening of bilateral subdural subarachnoid hemorrhage with right temporal parietal subdural hemorrhage with 9 mL leftward midline shift. S/P Craniotomy and drain. Pt. now on tracheostomy and PEG tube placed. Consulted for transfer of care. Trauma, status post fall from a ladder Skull fracture, occipital Subarachnoid hemorrhage Subdural hemorrhage Status post craniotomy Encephalopathy - Rehabilitation medicine following. - Continue Keppra, valproic acid. - Seizure precaution - Continue physical therapy occupational therapy for deconditioning Tracheostomy Pneumonia, HCAP vs. Aspiration pneumonia, possibly S. Aureus/ Anaerobes - Leukocytosis continues WBC 13.0 --> 14.5 - Reviewed chest xray repeat 11/10/16- Right basilar patchiness consistent with probable pneumonia. Likely aspiration pneumonia. - 11/04/16 Chest x-ray showed patchy right lung base opacity nonspecific. repeat chest x-ray showed no significant changes occurred. - Continue pulmonary toileting. - Neb treatments - Pulmonology following input appreciated. - Plan to wean off tracheostomy. Currently on trach collar FiO2 28% - Suction when necessary. Oral and trach care. - Aspiration precaution. - Received Levaquin and Flagyl IV, discontinued on 11/14/2016. HTN - Continue medication Lasix 40 mg daily, propranolol 20 mg every 6 hours, clonidine 0.3 every 8 hours, labetalol when necessary. - Vasotec PRN. Continue Amlodipine 5mg Qday. PEG in place - [facility] - Monitor for aspiration risk Diarrhea - On the maylin shield - Hold off bowel regimen. - C. difficile negative Hepatitis C - Positive hep C serology - GI follow up as an outpatient. Urinary tract infection - UA positive - Culture showed Rossy albicans less than 10,000 - Switched to condom catheter. Continue betty-care. EtOH, abuse - Folic acid, thiamine DVT prop Lovenox Alternative Code:Intubation Discharge plan: Patient will benefit from increased amount of PT/OT/ST. SSI pending. Problem Qualifiers (1) Traumatic brain injury: (2) Subdural hemorrhage following injury: Qualified Code: S06.5X1A - Traumatic subdural hemorrhage with loss of consciousness of 30 minutes or less, initial encounter (3) Fracture of occipital bone of skull with loss of consciousness: Qualified Code: S02.119A - Fracture of occipital bone of skull with loss of consciousness, closed, initial encounter Ayse Garza DO Nov 17, 2016 6:02 pm
[2016-11-17] MEDS: SODIUM CHLORIDE 0.9% FLUSH 5 ML FLUSH IVF PRN (22:46)
[2016-11-18] VITALS (11 sets, daily range): BP systolic 113–134; BP diastolic 67–76; PULSE 86–95; RESP 20–22; TEMP 95.6–98.1; O2SAT 95–100
[2016-11-18] MEDS: CHLORHEXIDINE GLUCONATE 2 % 1 PACK (2 CLOTHS) TOP SCH (04:00)
[2016-11-18] MEDS: PROPRANOLOL HCL 20 MG TAB PO SCH ×4 (05:37→18:00)
[2016-11-18] MEDS: cloNIDine HCL 0.3 MG TAB PO SCH ×4 (05:37→22:30)
[2016-11-18] MEDS: CHLORHEXIDINE 0.12% (ORAL KIT) 15 ML CUP MT SCH ×2 (08:00→20:00)
[2016-11-18] MEDS: THIAMINE HCL 100 MG TAB PO SCH (09:28)
[2016-11-18] MEDS: LACTOBACILLUS ACIDOPHILUS TAB PEG SCH (09:28)
[2016-11-18] MEDS: amLODIPine BESYLATE 5 MG TAB PO SCH (09:29)
[2016-11-18] MEDS: FOLIC ACID 1 MG TAB PO SCH (09:30)
[2016-11-18] MEDS: levETIRAcetam 500 MG/5 ML UDC TUBE SCH ×2 (09:30→22:31)
[2016-11-18] MEDS: MULTIVITAMIN TAB PO SCH (09:31)
[2016-11-18] MEDS: POTASSIUM CHLORIDE 25 MEQ EFFERVESCENT TAB TUBE SCH (09:34)
[2016-11-18] MEDS: DOCUSATE SODIUM 100 MG CAP PO SCH ×2 (09:35→22:30)
[2016-11-18] MEDS: PANTOPRAZOLE SODIUM 40 MG VIAL IVP SCH (09:38)
[2016-11-18] MEDS: FUROSEMIDE 40 MG/4 ML VIAL IV PUSH SCH (09:39)
[2016-11-18] MEDS: SODIUM CHLORIDE 0.9% FLUSH 5 ML FLUSH IVF SCH ×2 (09:39→22:36)
--- NOTE | 2016-11-18 11:14 | HHI.PR ---
Subjective Remarks Follow-up visit pneumonia, trauma status post fall, subdural subarachnoid hemorrhage. Mr. Nixon shows incremental improvement. He tries to mouth words - but difficult to understand. Moves his extremities. Objective Vitals Vital Signs Date Time Temp Pulse Resp B/P Pulse Ox O2 Delivery O2 Flow Rate FiO2 11/18/16 10:08 95 T-piece 28 11/18/16 08:00 96.8 92 21 120/67 97 11/18/16 04:00 95.6 92 22 134/76 96 11/18/16 02:10 95 T-piece 5.00 28 11/18/16 00:00 98.1 86 22 113/69 96 11/17/16 23:30 Trach Collar 6.00 28 11/17/16 20:00 98.0 83 19 128/75 98 11/17/16 19:40 98 T-piece 6.00 28 11/17/16 18:00 92 11/17/16 16:00 95.8 91 21 118/64 97 11/17/16 12:00 97.9 92 22 108/68 97 11/17/16 11:46 95 T-piece 28 I/O 11/17/16 11/17/16 11/17/16 11/18/16 11/18/16 11/18/16 07:00 15:00 23:00 07:00 15:00 23:00 # Voids 2 2 2 2 # Bowel Movements 1 1 1 1 Result Diagram: 11/14/167 11/14/16 0447 Imaging Last Impressions Chest X-Ray 11/09/16 0000 Signed Impressions: Service Date/Time: Wednesday, November 09, 2016 17:22 - CONCLUSION: Right basilar patchiness consistent with probable pneumonia. Clinical correlation is recommended. Jose James MD Lower Extremity Ultrasound 10/27/16 0000 Signed Impressions: Service Date/Time: Thursday, October 27, 2016 10:13 - CONCLUSION: No DVT either lower extremity. 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 MD Head CT 10/23/16 0000 Signed Impressions: Service Date/Time: Sunday, October 23, 2016 11:21 - CONCLUSION: 1. Examination quality is degraded by motion artifact. There is decreased midline shift, currently measuring 3 mm compared to 6 mm on the prior study. 2. There are persistent hemorrhagic contusions in the right frontal lobe but they are less well-visualized today either related to interval improvement or related to motion artifact. Red Arenas MD Chest CT 10/23/16 0000 Signed Impressions: Service Date/Time: Sunday, October 23, 2016 11:24 - CONCLUSION: 1. Airspace consolidation within the left upper lobe. This could represent an infectious process. 2. Small bilateral pleural effusions with associated compressive atelectasis in the lower lobes. Red Arenas MD Abdomen/Pelvis CT 10/23/16 0000 Signed Impressions: Service Date/Time: Sunday, October 23, 2016 11:27 - CONCLUSION: 1. No acute finding is identified within the abdomen or pelvis. 2. Anasarca. 3. Stable 7 mm nodule on the left adrenal gland. Small size favors a benign process but is incompletely characterized on this examination. Red Arenas MD Neck CTA 10/12/16 0000 Signed Impressions: Service Date/Time: Wednesday, October 12, 2016 09:27 - CONCLUSION: Mild atherosclerotic changes in the proximal portions of both internal carotid arteries but no significant stenosis. Dez Petersen MD Head CTA 10/12/16 0000 Signed Impressions: Service Date/Time: Wednesday, October 12, 2016 09:27 - CONCLUSION: No evidence of acute vascular injury Red Hoffman MD Pelvis X-Ray 10/11/16 1213 Signed Impressions: Service Date/Time: Tuesday, October 11, 2016 12:02 - CONCLUSION: Satisfactory trauma pelvis appearance. Red Hoffman MD Cervical Spine CT 10/11/16 1213 Signed Impressions: Service Date/Time: Tuesday, October 11, 2016 12:19 - CONCLUSION: Occipital skull fracture. No evidence of acute traumatic injury in the cervical spine Red Hoffman MD Objective Remarks GENERAL: Alert, NAD. Opens eyes, mouths words, nods, moves upper and lower ext. Better movement with upper ext. SKIN: Warm and dry. HEAD: Normocephalic. EYES: No scleral icterus. No injection or drainage. NECK: Supple, trachea midline. No JVD or lymphadenopathy. CARDIOVASCULAR: Regular rate and rhythm without murmurs, gallops, or rubs. RESPIRATORY: Coarse breath sounds with scattered rhonchi. GASTROINTESTINAL: Abdomen soft, non-tender, nondistended. MUSCULOSKELETAL: No cyanosis, or edema. BACK: Nontender without obvious deformity. No CVA tenderness. Procedures 10/27/2016 Blue rhino tracheostomy 10/18/2016 Left frontal bur hole with placement of an intracranial pressure Right frontotemporoparietal decompressive craniectomy with evacuation of subdural hematoma 10/13/2016 Right frontal Anita hole with placement of a ventriculostomy catheter Date of Insertion: Oct 11, 2016 A/P Problem List: (1) Encephalopathy ICD Code: G93.40 Status: Acute (2) Pneumonia ICD Code: J18.9 Status: Acute (3) SAH (subarachnoid hemorrhage) ICD Code: I60.9 Status: Acute (4) Major neurocognitive disorder as late effect of traumatic brain injury with behavioral disturbance ICD Code: S06.9X9S Status: Acute (5) Traumatic brain injury ICD Code: S06.9X9A Status: Chronic (6) Subdural hemorrhage following injury ICD Code: S06.5X9A Status: Acute (7) Fracture of occipital bone of skull with loss of consciousness ICD Code: S02.119A Status: Acute (8) Hepatitis C antibody positive in blood ICD Code: R76.8 Status: Acute (9) Rash ICD Code: R21 Status: Acute Assessment and Plan Patient is a 56-year-old male who came to the hospital on 10/11/16 as a trauma patient. As per report, patient was on a ladder and fell approximately 10 feet. Bystander on the scene perform CPR for approximately 2 minutes stating the patient was blue. On EMS arrival patient is reported to have a GCS of 6, which improved at the time of ED arrival to GCS of 11. Imaging studies showed occipital fracture subdural and subarachnoid hemorrhage. The patient developed worsening agitation he was intubated and placed on mechanical ventilation. Repeat CT in 24 hours showed worsening of bilateral subdural subarachnoid hemorrhage with right temporal parietal subdural hemorrhage with 9 mL leftward midline shift. S/P Craniotomy and drain. Pt. now on tracheostomy and PEG tube placed. Consulted for transfer of care. Trauma, status post fall from a ladder Skull fracture, occipital Subarachnoid hemorrhage Subdural hemorrhage Status post craniotomy Encephalopathy - Rehabilitation medicine following. - Continue Keppra, valproic acid. - Seizure precaution - Continue physical therapy occupational therapy for deconditioning Tracheostomy Pneumonia, HCAP vs. Aspiration pneumonia, possibly S. Aureus/ Anaerobes - Leukocytosis continues WBC 13.0 --> 14.5 - Reviewed chest xray repeat 11/10/16- Right basilar patchiness consistent with probable pneumonia. Likely aspiration pneumonia. - 11/04/16 Chest x-ray showed patchy right lung base opacity nonspecific. repeat chest x-ray showed no significant changes occurred. - Continue pulmonary toileting. - Neb treatments - Pulmonology following input appreciated. - Plan to wean off tracheostomy. Currently on trach collar FiO2 28% - Suction when necessary. Oral and trach care. - Aspiration precaution. - Received Levaquin and Flagyl IV, discontinued on 11/14/2016. HTN - Continue medication Lasix 40 mg daily, propranolol 20 mg every 6 hours, clonidine 0.3 every 8 hours, labetalol when necessary. - Vasotec PRN. Continue Amlodipine 5mg Qday. PEG in place - Continue tube feedings as ordered [facility] - Monitor for aspiration risk Diarrhea - On the maylin shield - Hold off bowel regimen. - C. difficile negative Hepatitis C - Positive hep C serology - GI follow up as an outpatient. Urinary tract infection - UA positive - Culture showed Rossy albicans less than 10,000 - Switched to condom catheter. Continue betty-care. EtOH, abuse - Folic acid, thiamine DVT prop Lovenox Alternative Code:Intubation 11/18/2016 : No change in management. Continue PT/OT/ST. SSI pending. Difficult placement. Problem Qualifiers (1) Traumatic brain injury: (2) Subdural hemorrhage following injury: Qualified Code: S06.5X1A - Traumatic subdural hemorrhage with loss of consciousness of 30 minutes or less, initial encounter (3) Fracture of occipital bone of skull with loss of consciousness: Qualified Code: S02.119A - Fracture of occipital bone of skull with loss of consciousness, closed, initial encounter Ayse Garza DO Nov 18, 2016 11:14
[2016-11-18] MEDS: WATER IV SCH ×4 (13:56→22:37)
[2016-11-18] MEDS: DEXTROSE 5% IV SCH ×4 (13:56→22:37)
[2016-11-18] MEDS: VALPROATE IV SCH ×4 (13:56→22:37)
[2016-11-18] MEDS: ENOXAPARIN SODIUM 40 MG/0.4 ML SYRINGE SQ SCH (13:58)
--- NOTE | 2016-11-18 15:48 | HHI.HCPN ---
Reason for visit a. To assist with evaluation and management of symptoms including: encephalopathy; weakness; dysphagia, pain b. To assist medical decision maker(s) with: better understanding of current medical conditions; weighing benefits/burdens of medical treatment options; making medical treatment decisions. . Subjective/Interval History Patient seen and assessed in room 1535. Patient is appears to be sleeping, arouses briefly to arousal. Per nursing report, patient appears to be trying to mouth words, however unintelligible. Per EMR review, patient was able to follow 20% to 60% of simple commands. Answering yes/no questions with 0% accuracy. Does not visually track past midline on right side. Tracheostomy to T-piece, FiO2 28% with oxygen saturation in the mid to high 90s. Coarse breath sounds with scattered rhonchi, suctioned for thick white sputum. Follow-up chest x-ray on 11/09/16 showed right basilar patchiness consistent with probable pneumonia, likely aspiration. Sputum culture on growing Serratia Marcescens. Afebrile. Persistent leukocytosis, most recent WBC of 14.3. Urine culture on growing Rossy Albicans. Patient tolerating bypass feedings, Jevity 1.5 at 65ml/hour via PEG tube. Speech therapy continues to follow - honey consistency liquids dyed blue to facilitate tracking of aspirate noted immediately after presentation, seen in tracheostomy. Patient remains NPO. . Advance Directives Living Will: Never completed Health Care Surrogate: Never completed Durable Power of Legal Receptionist: Never completed Advance Directive Specifics Date completed: Advanced directives were never completed. . Health Care Surrogate(s): There is no written designation of a health care surrogate. . Documented care wishes: No written documentation of health care preferences/goals/wishes . Objective Vital Signs Date Time Temp Pulse Resp B/P Pulse Ox O2 Delivery O2 Flow Rate FiO2 11/18/16 12:00 97.4 94 20 117/71 99 11/18/16 10:08 95 T-piece 28 11/18/16 08:00 96.8 92 21 120/67 97 11/18/16 04:00 95.6 92 22 134/76 96 11/18/16 02:10 95 T-piece 5.00 28 11/18/16 00:00 98.1 86 22 113/69 96 11/17/16 23:30 Trach Collar 6.00 28 11/17/16 20:00 98.0 83 19 128/75 98 11/17/16 19:40 98 T-piece 6.00 28 11/17/16 18:00 92 11/17/16 16:00 95.8 91 21 118/64 97 Intake & Output 11/18/16 11/18/16 07:00 19:00 # Voids 2 2 # Bowel Movements 1 1 . Physical Exam CONSTITUTIONAL/GENERAL: This is an adequately nourished patient with trach and PEG s/p TBI, in no acute distress. TUBES/LINES/DRAINS: Tracheostomy; PIV x 1, SCDs, PEG, Podus. SKIN: Right craniotomy surgical incision healing. HEAD: S/p craniotomy, right skull flap is soft. EYES: Pupils equal, reactive and sluggish. No scleral icterus. No injection or drainage. Fundi not examined. ENT: Nose without bleeding or purulent drainage. NECK: Trachea midline. Tracheostomy to t-piece, patent without s/s of infection. CARDIOVASCULAR: Heart rate and rhythm regular. No murmurs, gallops, or rubs. RESPIRATORY/CHEST: Tracheostomy to T-piece, FiO2 28%. Bilateral breath sounds are coarse with scattered rhonchi. GASTROINTESTINAL: Abdomen rounded. BS active x 4. Tolerating tube feedings, PEG tube site appears healthy. GENITOURINARY: Without palpable bladder distension MUSCULOSKELETAL: Extremities without clubbing, cyanosis. No mottling or clubbing. NEUROLOGICAL: Lethargic, arouses briefly to verbal stimuli. Appears to be trying to mouth words, however unintelligible. PSYCHIATRIC: Does not appear to be experiencing anxiety/agitation. . . Diagnostic Tests Result Diagram: 11/14/167 11/14/16446 Procedures * Anita hole with ICP monitor placed * Right craniectomy * Art line placement * Intubation/mechanical ventilation * Central line placement. * Tracheostomy * Peg tube . Assessment and Plan Disease Oriented Problem List: (1) Traumatic brain injury (2) SAH (subarachnoid hemorrhage) (3) Subdural hemorrhage following injury (4) Fracture of occipital bone of skull with loss of consciousness (5) Encephalopathy acute (6) Alcohol dependence Comment: Long history of 12-15 drinks per day. . (7) Major neurocognitive disorder as late effect of traumatic brain injury with behavioral disturbance (8) Seizure (9) Pneumonia Comment: Probable aspiration. Blood in vomitus were in airway immediately after fall. . (10) Hepatitis C antibody positive in blood (11) Rectal bleeding Comment: Has had years of abdominal pain with intermittent rectal bleeding. Has avoided recommended work-up due to lack on insurance, lack of funds, and fear of results (per shasta). . Symptom Scale: (1) Pain 0-10 Scale: Unable to quantify Comment: Per review of notes: Patient had history of several pain syndromes. He complained of abdominal pain for years with occasional rectal bleeding. He also complained of right ankle pain where he had surgery and achiness in multiple joints. He would use BC powders several times a day and occasionally hydrocodone. Other current sources of pain might include prolonged bedbound status, post op wound/head pain, discomfort from trach/gann/OG/vascular access lines. Orders are in place for PRN oxycodone at this time. These appear to be adequate, no requirements in the past 24 hours. No further recommendations at this time. . (2) Encephalopathy 0-10 Scale: Unable to quantify Comment: This has been multi-factorial and has involved the brain injury, alcohol withdrawal, infection, seizure, etc. Current encephalopathy now mostly due to brain injury, minimal neurological gains have been made. Follow-up EEG on 11/03/16 has significantly improved in comparison to prior reports. No epileptiform features were present. Patient remains on Valproate and Keppra for seizure management. . (3) Dyspnea Comment: Tracheostomy to T-piece, FiO2 28% with oxygen saturation in the mid to high 90s. Coarse breath sounds with scattered rhonchi, suctioned for thick white sputum. Follow-up chest x-ray on 11/09/16 showed right basilar patchiness consistent with probable pneumonia, likely aspiration. Sputum culture on growing Serratia Marcescens. . (4) Dysphagia Comment: Patient tolerating bypass feedings, Jevity 1.5 at 65ml/hour via PEG tube. Speech therapy continues to follow - honey consistency liquids dyed blue to facilitate tracking of aspirate noted immediately after presentation, seen in tracheostomy. Patient remains NPO secondary to severe profound cognitive communicative deficits. . Pertinent Non-Medical Issues Psychosocial: Social support consists of fiancee, brother, sister and friend - - Patricio Oleary. Spiritual: Orthodoxy background. Jewish and spirituality have not played an important role in his life. Shasta appreciates community board member visits. Legal: No advance directives. Without a designated health care surrogate, decision-making appears to fall to the majority of his siblings. Ethical issues impacting care: Patient is incapacitated to make his own health care decisions. It is unclear if/when he will regain capacity. . Important Contacts * Brandy Workman (spouse) [phone] or [phone] * Amanda "Manuela"[place] (sister) - [facility] care proxy: * Perez "Demarco" (brother) [phone] * Amanda "Jamila" Ubaldo (niece) [phone] . 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 It is unclear if he had some sort of event causing the fall (he had vomitus and blood in his airway at time of fall) or merely fell. His injuries include occipital bone fracture, SDH, SAH. Complications include EtOH withdrawal, aspiration pneumonia. He has had high ICPs and ultimately underwent right sided craniectomy for decompression. He has had seizure activity. There has been little evidence so far of meaningful neurological recovery. Neurosurgery feels there continues to be a reasonable chance of meaningful neurologic recovery (though it will take a lot of time) and is recommending ongoing aggressive care. . Code Status: Alternative Code (Intubation only) Plan == Code Status: FULL CODE == Decision making: Mr. Nixon is incapacitated to make his own health care decisions and it is unclear if/when he will regain capacity. Patient is not legally , has no children, and the parents who adopted him are . Under the [place] Statutes, decision making would fall to the patient's adoptive siblings -- Amanda and Demarco. Demarco has agreed to defer decision making to sister (Amanda) so AMANDA IS THE OFFICIAL PROXY DECISION MAKER. The patient's fiancee -- Brnady Workman - has no decision making authority, but the siblings are including her in the conversations. == Received phone call from patient's sister/HCS (Amanda "Manuela") on 10/27/16. Manuela's 44 year old daughter unexpectedly last week. She will not be returning to [place] for an unknown period of time, but is available via telephone at . == Goals of medical treatment: Goals remain aggressive, hopeful patient will be placed in a SNF for rehabiliatation == Status post tracheostomy on 10/28/16 and PEG tube placement on 10/29/16. == Encephalopathy: This has been multi-factorial and has involved the brain injury, alcohol withdrawal, infection, seizure, etc. Current encephalopathy now mostly due to brain injury, minimal neurological gains have been made. Follow-up EEG on 11/03/16 has significantly improved in comparison to prior reports. No epileptiform features were present. Patient remains on Valproate and Keppra for seizure management. == Pain: Patient had history of several pain syndromes. He complained of abdominal pain for years with occasional rectal bleeding. He also complained of right ankle pain where he had surgery and achiness in multiple joints. He would use BC powders several times a day and occasionally hydrocodone. Other current sources of pain might include prolonged bedbound status, post op wound/ head pain, discomfort from trach/gann/OG/vascular access lines. Orders are in place for PRN oxycodone at this time. These appear to be adequate, no requirements the past 24 hours No further recommendations at this time. == Dyspnea: Tracheostomy to T-piece, FiO2 28% with oxygen saturation in the mid to high 90s. Coarse breath sounds with scattered rhonchi, suctioned for thick white sputum. Follow-up chest x-ray on 11/09/16 showed right basilar patchiness consistent with probable pneumonia, likely aspiration. Sputum culture on 11/09/16 growing Serratia Marcescens. == Dysphagia: Patient tolerating bypass feedings, Jevity 1.5 at 65ml/hour via PEG tube. Speech therapy continues to follow - honey consistency liquids dyed blue to facilitate tracking of aspirate noted immediately after presentation, seen in tracheostomy. Patient remains NPO secondary to severe profound cognitive communicative deficits. == Palliative care will continue to follow to assist with symptom management and to further clarify goals of medical treatment as the clinical course evolves. . Attestation To help prompt me to consider important information that might be impacting today's encounter and assessment, information from prior notes written by myself or my colleagues may have been "brought forward" into today's note. My signature on this note, however, is an attestation that I personally performed the exam, history, and/or decision-making noted today, and, unless otherwise indicated, the interactions with patient, family, and staff as well as the review of records all occurred today. I also attest that the listed assessment and stated plan reflect my best clinical judgment today based on the combination of historical information, prior notes, and today's exam/ interactions. When time spent is documented, it refers only to time spent today by the signer, or if indicated, combined time spent today by collaborating physician/nurse practitioner. . Татьяна Hauser Nov 18, 2016 15:47
--- NOTE | 2016-11-18 17:03 | HHI.PR ---
Subjective Remarks 56 YOWM with Fall,ICH,ventriculostomy RF, has trach moderate amount of trach secretions. Alert, awake, looks around No fever Tolerates TF at goal rate 65 cc /HR Objective Vital Signs Vital Signs Date Time Temp Pulse Resp B/P Pulse Ox O2 Delivery O2 Flow Rate FiO2 11/18/16 16:00 97.3 95 20 118/73 99 11/18/16 12:00 97.4 94 20 117/71 99 11/18/16 10:08 95 T-piece 28 11/18/16 08:00 96.8 92 21 120/67 97 11/18/16 04:00 95.6 92 22 134/76 96 11/18/16 02:10 95 T-piece 5.00 28 11/18/16 00:00 98.1 86 22 113/69 96 11/17/16 23:30 Trach Collar 6.00 28 11/17/16 20:00 98.0 83 19 128/75 98 11/17/16 19:40 98 T-piece 6.00 11/17/16 18:00 92 I/O 11/17/16 11/17/16 11/17/16 11/18/16 11/18/16 11/18/16 07:00 15:00 23:00 07:00 15:00 23:00 # Voids 2 2 2 2 # Bowel Movements 1 1 1 1 Result Diagram: 11/14/16 0447 11/14/16 0447 Objective Remarks GENERAL: WBWN male, On Trach SKIN: Warm and dry. HEAD: Normocephalic. EYES: No scleral icterus. No injection or drainage. NECK: Supple, trachea midline. No JVD or lymphadenopathy. trach in place CARDIOVASCULAR: Regular rate and rhythm without murmurs, gallops, or rubs. RESPIRATORY: Breath sounds equal bilaterally. No accessory muscle use. GASTROINTESTINAL: Abdomen soft, non-tender, nondistended. PEG in place MUSCULOSKELETAL: No cyanosis, or edema. BACK: Nontender without obvious deformity. No CVA tenderness. A/P Assessment and Plan RF. s/p Trach s/P Ventriculostomy PEG placement PLAN: Aerosol nebs SQ Lovenox TF @ 65cc/HR Trach suction prn Palliative care evaluating pt. Murphy Cm MD Nov 18, 2016 17:03
[2016-11-18] MEDS: HYDROCORTISONE 1% CREAM 30 GM TOPICAL SCH ×2 (18:01→22:58)
[2016-11-19] VITALS (8 sets, daily range): BP systolic 107–153; BP diastolic 71–80; PULSE 82–108; RESP 16–20; TEMP 97.1–98.5; O2SAT 93–100
[2016-11-19] MEDS: CHLORHEXIDINE GLUCONATE 2 % 1 PACK (2 CLOTHS) TOP SCH (04:00)
[2016-11-19] MEDS: cloNIDine HCL 0.3 MG TAB PO SCH ×3 (07:29→23:42)
[2016-11-19] MEDS: HYDROCORTISONE 1% CREAM 30 GM TOPICAL SCH ×2 (07:29→14:00)
[2016-11-19] MEDS: PROPRANOLOL HCL 20 MG TAB PO SCH ×4 (07:29→17:47)
[2016-11-19] MEDS: CHLORHEXIDINE 0.12% (ORAL KIT) 15 ML CUP MT SCH ×2 (08:00→20:00)
[2016-11-19] MEDS: SODIUM CHLORIDE 0.9% FLUSH 5 ML FLUSH IVF SCH ×2 (09:00→23:43)
[2016-11-19] MEDS: POTASSIUM CHLORIDE 25 MEQ EFFERVESCENT TAB TUBE SCH (09:13)
[2016-11-19] MEDS: LACTOBACILLUS ACIDOPHILUS TAB PEG SCH (09:13)
[2016-11-19] MEDS: FOLIC ACID 1 MG TAB PO SCH (09:13)
[2016-11-19] MEDS: levETIRAcetam 500 MG/5 ML UDC TUBE SCH ×2 (09:13→23:43)
[2016-11-19] MEDS: DOCUSATE SODIUM 100 MG CAP PO SCH ×2 (09:13→23:42)
[2016-11-19] MEDS: THIAMINE HCL 100 MG TAB PO SCH (09:13)
[2016-11-19] MEDS: amLODIPine BESYLATE 5 MG TAB PO SCH (09:13)
[2016-11-19] MEDS: PANTOPRAZOLE SODIUM 40 MG VIAL IVP SCH (09:14)
[2016-11-19] MEDS: MULTIVITAMIN TAB PO SCH (09:14)
[2016-11-19] MEDS: FUROSEMIDE 40 MG/4 ML VIAL IV PUSH SCH (09:14)
[2016-11-19] MEDS: WATER IV SCH ×4 (12:27→23:42)
[2016-11-19] MEDS: DEXTROSE 5% IV SCH ×4 (12:27→23:42)
[2016-11-19] MEDS: ENOXAPARIN SODIUM 40 MG/0.4 ML SYRINGE SQ SCH (12:27)
[2016-11-19] MEDS: VALPROATE IV SCH ×4 (12:27→23:42)
--- NOTE | 2016-11-19 13:15 | HHI.PR ---
Neuropsych Emotional Emotional: UnabletoAssess: Emotional, Anxious/Fearful, Depressed/Sad, Hostile/ Resentful, Irritable/Angry/Frustrate, Labile, Constricted/Blunted Behavior Behavior: Unable to Asses: Behavior, Coping/Acceptance, Cooperative w/ Treatment, Motivation, Frustration Tolerance/Butler, Impulsive/Agitated, Suicidal/ Homicidal Risk Cognitive Cognitive: Unable to Asses: Cognitive, Attention/Concentration, Confused/ Orientation, Insight/Awareness, Judgement/Problem-Solving, Memory Progress Notes/Response to Tx Contents of Sessions: Interests Time with Patient: 15 minutes Premorbid psychological status Premorbid Cognitive, Emotional and Behavioral Status: Deferred. 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 The patient has no known psychiatric difficulties. However, substance abuse history is significant for alcohol dependence and tobacco dependence. Behavioral Reactions of Patient and Family/Support System: Tenuous. The patients family has a limited understanding of the complexities of this patient 's brain injury, and the lifestyle barriers that prevent an optimal recovery. They are expected to have ongoing issues of adjustment given the nature of the injury, and this aspect of recovery will require ongoing monitoring. Emotional/Behavioral Status of Patient and Family/Support System: Tenuous. Pertinent issues, if appropriate to this patients clinical care, are described in detail above. Maximizing acute care outcome It is recommended that the patient be monitored for emergent behavioral impulsivity as the medical condition evolves. This patients neuropathological challenges may limit their rehabilitation potential going forward, and these challenges will require specialized therapeutic skills to maximize outcome. Additionally, the patients family is experiencing ongoing issues of adjustment given the traumatic nature of the injury, and they [will need / may benefit] from ongoing psychological assistance. Anticipated Problems Ongoing areas of concern could include behavioral impulsivity, lack of insight and judgment, which is expected to improve with time and treatment, provided he moves past this stage of recovery. Presently, the patient is not following commands. His long duration alcohol dependence and tobacco dependence, which has led to global cerebral atrophy, will serve as a double barrier to his recovery from this injury. Treatment Plan This clinician will continue to follow with you throughout the course of this patients rehabilitation treatment, and I will be available to meet with the patients family/support system to facilitate their understanding and the ongoing care of their family member. The goals of neuropsychological intervention shall be both educational and supportive to the family/support system as is deemed clinically appropriate. [facility] Level: V:Confused-non agitated Diagnosis: (1) Major neurocognitive disorder as late effect of traumatic brain injury with behavioral disturbance Status: Acute (2) Alcohol dependence Status: Acute Progress Note Narrative Ongoing follow-up of patient seen in his hospital room. This is day 39 post injury. He is awake and tracks and moves x 4 but does not follow. 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 He is a [place]. I will continue to follow. Kermit Hughes PhD Nov 19, 2016 1:15 pm
--- NOTE | 2016-11-19 13:59 | HHI.PR ---
Subjective Remarks Follow-up visit pneumonia, trauma status post fall, subdural subarachnoid hemorrhage. Mr. Nixon mouths words, moves his extremities. Remains afebrile. Objective Vitals Vital Signs Date Time Temp Pulse Resp B/P Pulse Ox O2 Delivery O2 Flow Rate FiO2 11/19/16 12:00 97.9 98 16 119/72 94 11/19/16 10:23 93 T-piece 35 11/19/16 08:00 98.5 108 18 153/77 95 11/19/16 04:00 97.3 101 20 148/71 96 11/19/16 04:00 Trach Collar 6.00 28 11/19/16 00:00 97.3 91 18 116/80 100 11/18/16 20:00 97.4 94 20 120/68 99 11/18/16 19:39 100 T-piece 28 11/18/16 18:49 93 11/18/16 18:45 93 11/18/16 16:00 97.3 95 20 118/73 99 I/O 11/18/16 11/18/16 11/18/16 11/19/16 11/19/16 11/19/16 07:00 15:00 23:00 07:00 15:00 23:00 Intake Total 1238 ml Output Total 800 ml Balance 1238 ml -800 ml Tube Feeding 638 ml Other 600 ml Output Urine Total 800 ml # Voids 3 1 # Bowel Movements 2 Objective Remarks GENERAL: Alert, NAD. Opens eyes, mouths words, nods, moves upper and lower ext. Better movement with upper ext. SKIN: Warm and dry. HEAD: Normocephalic. EYES: No scleral icterus. No injection or drainage. NECK: Supple, trachea midline. No JVD or lymphadenopathy. CARDIOVASCULAR: Regular rate and rhythm without murmurs, gallops, or rubs. RESPIRATORY: Coarse breath sounds with scattered rhonchi. GASTROINTESTINAL: Abdomen soft, non-tender, nondistended. MUSCULOSKELETAL: No cyanosis, or edema. BACK: Nontender without obvious deformity. No CVA tenderness. Procedures 10/27/2016 Blue rhino tracheostomy 10/18/2016 Left frontal bur hole with placement of an intracranial pressure Right frontotemporoparietal decompressive craniectomy with evacuation of subdural hematoma 10/13/2016 Right frontal [place] hole with placement of a ventriculostomy catheter Date of Insertion: Oct 11, 2016 A/P Problem List: (1) Encephalopathy ICD Code: G93.40 Status: Acute (2) Pneumonia ICD Code: J18.9 Status: Acute (3) SAH (subarachnoid hemorrhage) ICD Code: I60.9 Status: Acute (4) Major neurocognitive disorder as late effect of traumatic brain injury with behavioral disturbance ICD Code: S06.9X9S Status: Acute (5) Traumatic brain injury ICD Code: S06.9X9A Status: Chronic (6) Subdural hemorrhage following injury ICD Code: S06.5X9A Status: Acute (7) Fracture of occipital bone of skull with loss of consciousness ICD Code: S02.119A Status: Acute (8) Hepatitis C antibody positive in blood ICD Code: R76.8 Status: Acute (9) Rash ICD Code: R21 Status: Acute Assessment and Plan Patient is a 56-year-old male who came to the hospital on 10/11/16 as a trauma patient. As per report, patient was on a ladder and fell approximately 10 feet. Bystander on the scene perform CPR for approximately 2 minutes stating the patient was blue. On EMS arrival patient is reported to have a GCS of 6, which improved at the time of ED arrival to GCS of 11. Imaging studies showed occipital fracture subdural and subarachnoid hemorrhage. The patient developed worsening agitation he was intubated and placed on mechanical ventilation. Repeat CT in 24 hours showed worsening of bilateral subdural subarachnoid hemorrhage with right temporal parietal subdural hemorrhage with 9 mL leftward midline shift. S/P Craniotomy and drain. Pt. now on tracheostomy and PEG tube placed. Consulted for transfer of care. Trauma, status post fall from a ladder Skull fracture, occipital Subarachnoid hemorrhage Subdural hemorrhage Status post craniotomy Encephalopathy - Rehabilitation medicine following. - Continue Keppra, valproic acid. - Seizure precaution - Continue physical therapy occupational therapy for deconditioning Tracheostomy Pneumonia, HCAP vs. Aspiration pneumonia, possibly S. Aureus/ Anaerobes - Leukocytosis continues WBC 13.0 --> 14.5 - Reviewed chest xray repeat 11/10/16- Right basilar patchiness consistent with probable pneumonia. Likely aspiration pneumonia. - 11/04/16 Chest x-ray showed patchy right lung base opacity nonspecific. repeat chest x-ray showed no significant changes occurred. - Continue pulmonary toileting. - Neb treatments - Pulmonology following input appreciated. - Plan to wean off tracheostomy. Currently on trach collar FiO2 28% - Suction when necessary. Oral and trach care. - Aspiration precaution. - Received Levaquin and Flagyl IV, discontinued on 11/14/2016. HTN - Continue medication Lasix 40 mg daily, propranolol 20 mg every 6 hours, clonidine 0.3 every 8 hours, labetalol when necessary. - Vasotec PRN. Continue Amlodipine 5mg Qday. PEG in place - Continue tube feedings as ordered Jevity - Monitor for aspiration risk Diarrhea - On the maylin shield - Hold off bowel regimen. - C. difficile negative Hepatitis C - Positive hep C serology - GI follow up as an outpatient. Urinary tract infection - UA positive - Culture showed Rossy albicans less than 10,000 - Switched to condom catheter. Continue betty-care. EtOH, abuse - Folic acid, thiamine DVT prop Lovenox Alternative Code:Intubation 11/19/2016 : No change in management. Continue PT/OT/ST. SSI pending. Difficult placement. Problem Qualifiers (1) Traumatic brain injury: (2) Subdural hemorrhage following injury: Qualified Code: S06.5X1A - Traumatic subdural hemorrhage with loss of consciousness of 30 minutes or less, initial encounter (3) Fracture of occipital bone of skull with loss of consciousness: Qualified Code: S02.119A - Fracture of occipital bone of skull with loss of consciousness, closed, initial encounter Ayse Garza DO Nov 19, 2016 13:59
--- NOTE | 2016-11-19 17:44 | HHI.PR ---
Subjective Remarks 56 YOWM with Fall,ICH,ventriculostomy RF, has trach. Alert, awake, looks around No fever Tolerates TF at goal rate 65 cc /HR Thick trach secretions Objective Vital Signs Vital Signs Date Time Temp Pulse Resp B/P Pulse Ox O2 Delivery O2 Flow Rate FiO2 11/19/16 17:16 97 T-piece 6.00 35 11/19/16 16:00 97.1 82 18 107/77 97 11/19/16 12:00 97.9 98 16 119/72 94 11/19/16 10:23 93 T-piece 35 11/19/16 08:00 98.5 108 18 153/77 95 11/19/16 07:00 Trach Collar 6.00 28 11/19/16 04:00 97.3 101 20 148/71 96 11/19/16 04:00 Trach Collar 6.00 28 11/19/16 00:00 97.3 91 18 116/80 100 11/18/16 20:00 97.4 94 20 120/68 99 11/18/16 19:39 100 T-piece 28 11/18/16 18:49 93 11/18/16 18:45 93 I/O 11/18/16 11/18/16 11/18/16 11/19/16 11/19/16 11/19/16 07:00 15:00 23:00 07:00 15:00 23:00 Intake Total 1238 ml Output Total 800 ml 2200 ml Balance 1238 ml -800 ml -2200 ml Tube Feeding 638 ml Other 600 ml Output Urine Total 800 ml 2200 ml # Voids 3 1 # Bowel Movements 2 1 Objective Remarks GENERAL: WBWN male, On Trach SKIN: Warm and dry. HEAD: Normocephalic. EYES: No scleral icterus. No injection or drainage. NECK: Supple, trachea midline. No JVD or lymphadenopathy. trach in place CARDIOVASCULAR: Regular rate and rhythm without murmurs, gallops, or rubs. RESPIRATORY: Breath sounds equal bilaterally. No accessory muscle use. GASTROINTESTINAL: Abdomen soft, non-tender, nondistended. PEG in place MUSCULOSKELETAL: No cyanosis, or edema. BACK: Nontender without obvious deformity. No CVA tenderness. A/P Assessment and Plan RF. s/p Trach s/P Ventriculostomy PEG placement PLAN: Aerosol nebs SQ Lovenox TF @ 65cc/HR Trach suction Murphy Lacey MD Nov 19, 2016 17:44
[2016-11-20] VITALS (7 sets, daily range): BP systolic 108–134; BP diastolic 67–95; PULSE 80–93; RESP 18–20; TEMP 96.9–98.6; O2SAT 94–100
[2016-11-20] MEDS: PROPRANOLOL HCL 20 MG TAB PO SCH ×4 (03:10→16:58)
[2016-11-20] MEDS: CHLORHEXIDINE GLUCONATE 2 % 1 PACK (2 CLOTHS) TOP SCH ×2 (04:00→20:32)
[2016-11-20] MEDS: HYDROCORTISONE 1% CREAM 30 GM TOPICAL SCH ×4 (04:28→20:30)
[2016-11-20] MEDS: cloNIDine HCL 0.3 MG TAB PO SCH ×3 (07:13→20:28)
[2016-11-20 07:59] LABS: AUTOMATED NEUTROPHIL # 8.9 TH/MM3 (1.8-7.7); BASOPHIL % 0.4 % (0.0-2.0); EOSINOPHIL # 0.1 TH/MM3 (0-0.4); EOSINOPHIL % 0.9 % (0.0-4.0); HEMATOCRIT 29.2 % (39.0-51.0); HEMO FLAGS DIFF FINAL; LYMPH % 12.3 % (9.0-44.0); LYMPHOCYTE # 1.5 TH/MM3 (1.0-4.8); MEAN CELL VOLUME 92.9 FL (80.0-100.0); MEAN CORPUSCULAR HGB CONC 33.4 % (32.0-36.0); NEUT % 73.4 % (16.0-70.0); PLATELET COUNT 373 TH/MM3 (150-450); RED BLOOD COUNT 3.15 MIL/MM3 (4.50-5.90); RED CELL DISTRIBUTION WIDTH 14.5 % (11.6-17.2); WHITE BLOOD COUNT 12.2 TH/MM3 (4.0-11.0)
[2016-11-20] MEDS: CHLORHEXIDINE 0.12% (ORAL KIT) 15 ML CUP MT SCH ×2 (08:00→20:29)
[2016-11-20] MEDS: POTASSIUM CHLORIDE 25 MEQ EFFERVESCENT TAB TUBE SCH (08:12)
[2016-11-20] MEDS: amLODIPine BESYLATE 5 MG TAB PO SCH (08:12)
[2016-11-20] MEDS: FOLIC ACID 1 MG TAB PO SCH (08:12)
[2016-11-20] MEDS: LACTOBACILLUS ACIDOPHILUS TAB PEG SCH (08:12)
[2016-11-20] MEDS: MULTIVITAMIN TAB PO SCH (08:12)
[2016-11-20] MEDS: THIAMINE HCL 100 MG TAB PO SCH (08:12)
[2016-11-20] MEDS: DOCUSATE SODIUM 100 MG CAP PO SCH ×2 (08:12→20:28)
[2016-11-20] MEDS: FUROSEMIDE 40 MG/4 ML VIAL IV PUSH SCH (08:13)
[2016-11-20] MEDS: PANTOPRAZOLE SODIUM 40 MG VIAL IVP SCH (08:13)
[2016-11-20] MEDS: SODIUM CHLORIDE 0.9% FLUSH 5 ML FLUSH IVF SCH ×2 (08:13→20:29)
[2016-11-20] MEDS: levETIRAcetam 500 MG/5 ML UDC TUBE SCH ×2 (08:14→20:29)
[2016-11-20 08:23] LABS: BICARBONATE 33.4 MEQ/L (21.0-32.0)
[2016-11-20] MEDS: ENOXAPARIN SODIUM 40 MG/0.4 ML SYRINGE SQ SCH (11:59)
[2016-11-20] MEDS: WATER IV SCH ×2 (12:02)
[2016-11-20] MEDS: DEXTROSE 5% IV SCH ×2 (12:02)
[2016-11-20] MEDS: VALPROATE IV SCH ×2 (12:02)
--- NOTE | 2016-11-20 13:50 | HHI.PR ---
Subjective Remarks Follow-up for TBI. Patient seems to respond to voice. Moves his extremities, but not always to command. Discussed with RN, occasionally patient may try to reach tracheostomy, otherwise no acute issues. Increased secretions, no appearance available currently. Objective Vitals Vital Signs Date Time Temp Pulse Resp B/P Pulse Ox O2 Delivery O2 Flow Rate FiO2 11/20/16 12:43 97.6 89 20 108/81 98 11/20/16 12:36 98 T-piece 35 11/20/16 08:24 Trach Collar 6.00 28 11/20/16 08:20 97.7 80 20 121/67 100 11/20/16 04:00 96.9 86 20 130/83 95 11/20/16 00:00 98.3 82 18 132/73 94 11/19/16 20:00 98.5 88 18 135/72 94 11/19/16 17:16 97 T-piece 6.00 35 11/19/16 16:00 97.1 82 18 107/77 97 I/O 11/19/16 11/19/16 11/19/16 11/20/16 11/20/16 11/20/16 07:00 15:00 23:00 07:00 15:00 23:00 Output Total 800 ml 2200 ml 700 ml Balance -800 ml -2200 ml -700 ml Output Urine Total 800 ml 2200 ml 700 ml # Bowel Movements 1 Result Diagram: 11/20/1625 11/20/16 0725 Imaging Last Impressions Chest X-Ray 11/09/16 0000 Signed Impressions: Service Date/Time: Wednesday, November 09, 2016 17:22 - CONCLUSION: Right basilar patchiness consistent with probable pneumonia. Clinical correlation is recommended. Joes James MD Lower Extremity Ultrasound 10/27/16 0000 Signed Impressions: Service Date/Time: Thursday, October 27, 2016 10:13 - CONCLUSION: No DVT either lower extremity. 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 MD Head CT 10/23/16 0000 Signed Impressions: Service Date/Time: Sunday, October 23, 2016 11:21 - CONCLUSION: 1. Examination quality is degraded by motion artifact. There is decreased midline shift, currently measuring 3 mm compared to 6 mm on the prior study. 2. There are persistent hemorrhagic contusions in the right frontal lobe but they are less well-visualized today either related to interval improvement or related to motion artifact. Red Arenas MD Chest CT 10/23/16 Signed Impressions: Service Date/Time: Sunday, October 23, 2016 11:24 - CONCLUSION: 1. Airspace consolidation within the left upper lobe. This could represent an infectious process. 2. Small bilateral pleural effusions with associated compressive atelectasis in the lower lobes. Red Arenas MD Abdomen/Pelvis CT 10/23/16 Signed Impressions: Service Date/Time: Sunday, October 23, 2016 11:27 - CONCLUSION: 1. No acute finding is identified within the abdomen or pelvis. 2. Anasarca. 3. Stable 7 mm nodule on the left adrenal gland. Small size favors a benign process but is incompletely characterized on this examination. Red Arenas MD Neck CTA 10/12/16 0000 Signed Impressions: Service Date/Time: Wednesday, October 12, 2016 09:27 - CONCLUSION: Mild atherosclerotic changes in the proximal portions of both internal carotid arteries but no significant stenosis. Dez Petersen MD Head CTA 10/12/16 0000 Signed Impressions: Service Date/Time: Wednesday, October 12, 2016 09:27 - CONCLUSION: No evidence of acute vascular injury Red Hoffman MD Pelvis X-Ray 10/11/16 1213 Signed Impressions: Service Date/Time: Tuesday, October 11, 2016 12:02 - CONCLUSION: Satisfactory trauma pelvis appearance. Red Hoffman MD Cervical Spine CT 10/11/16 1213 Signed Impressions: Service Date/Time: Tuesday, October 11, 2016 12:19 - CONCLUSION: Occipital skull fracture. No evidence of acute traumatic injury in the cervical spine Red Hoffman MD Objective Remarks GENERAL: Well-developed well-nourished. In no acute distress. SKIN: Warm and dry. Maculopapular rash of the upper extremity. HEENT: Previous right temporal bone flap. Pupils equal and round. Mucous membranes pink and moist. Tracheostomy in place with secretions. CARDIOVASCULAR: Regular rate and rhythm. No murmur appreciated. RESPIRATORY: No accessory muscle use. Clear to auscultation. Breath sounds equal bilaterally. Occasional coarse rhonchi. GASTROINTESTINAL: Abdomen soft, non-tender, nondistended. Bowel sounds x4. MUSCULOSKELETAL: No obvious deformities. No clubbing or cyanosis. No edema. NEUROLOGICAL: Awake and alert. Seems respond to voice. Moves upper and lower extremities spontaneously. Doesn't really move extremities to command. Nonverbal. Procedures 10/27/2016 Blue rhino tracheostomy 10/18/2016 Left frontal bur hole with placement of an intracranial pressure Right frontotemporoparietal decompressive craniectomy with evacuation of subdural hematoma 10/13/2016 Right frontal Anita hole with placement of a ventriculostomy catheter Date of Insertion: Oct 11, 2016 A/P Problem List: (1) Encephalopathy ICD Code: G93.40 Status: Acute (2) Pneumonia ICD Code: J18.9 Status: Acute (3) SAH (subarachnoid hemorrhage) ICD Code: I60.9 Status: Acute (4) Major neurocognitive disorder as late effect of traumatic brain injury with behavioral disturbance ICD Code: S06.9X9S Status: Acute (5) Traumatic brain injury ICD Code: S06.9X9A Status: Chronic (6) Subdural hemorrhage following injury ICD Code: S06.5X9A Status: Acute (7) Fracture of occipital bone of skull with loss of consciousness ICD Code: S02.119A Status: Acute (8) Hepatitis C antibody positive in blood ICD Code: R76.8 Status: Acute (9) Rash ICD Code: R21 Status: Acute Assessment and Plan Patient is a 56-year-old male who came to the hospital on 10/11/16 as a trauma patient. As per report, patient was on a ladder and fell approximately 10 feet. Bystander on the scene perform CPR for approximately 2 minutes stating the patient was blue. On EMS arrival patient is reported to have a GCS of 6, which improved at the time of ED arrival to GCS of 11. Imaging studies showed occipital fracture subdural and subarachnoid hemorrhage. The patient developed worsening agitation he was intubated and placed on mechanical ventilation. Repeat CT in 24 hours showed worsening of bilateral subdural subarachnoid hemorrhage with right temporal parietal subdural hemorrhage with 9 mL leftward midline shift. S/P Craniotomy and drain. Pt. now on tracheostomy and PEG tube placed. Care transferred to hospitalist service. Trauma, status post fall from a ladder Skull fracture, occipital Subarachnoid hemorrhage Subdural hemorrhage Status post craniotomy Encephalopathy - Rehabilitation medicine following. - Continue Keppra, valproic acid. - Seizure precaution - Continue physical therapy occupational therapy for deconditioning Tracheostomy Pneumonia, HCAP vs. Aspiration pneumonia, possibly S. Aureus/ Anaerobes - Leukocytosis continues WBC 13.0 --> 14.5 - Reviewed chest xray repeat 11/10/16- Right basilar patchiness consistent with probable pneumonia. Likely aspiration pneumonia. - 11/04/16 Chest x-ray showed patchy right lung base opacity nonspecific. repeat chest x-ray showed no significant changes occurred. - Continue pulmonary toileting. - Neb treatments - Pulmonology following input appreciated. - Plan to wean off tracheostomy. Currently on trach collar FiO2 28% - Suction when necessary. Oral and trach care. - Aspiration precaution. - Received Levaquin and Flagyl IV, discontinued on 11/14/2016. - Add Levsin for secretions - Restraints if needed to protect tracheostomy if agitated HTN - Continue medication Lasix 40 mg daily, propranolol 20 mg every 6 hours, clonidine 0.3 every 8 hours, labetalol when necessary. - Vasotec PRN. Continue Amlodipine 5mg Qday. PEG in place - Continue tube feedings as ordered Jevity - Monitor for aspiration risk Diarrhea - On the maylin shield - Hold off bowel regimen. - C. difficile negative Hepatitis C - Positive hep C serology - GI follow up as an outpatient. Urinary tract infection - UA positive - Culture showed Rossy albicans less than 10,000 - Switched to condom catheter. Continue betty-care. EtOH, abuse - Folic acid, thiamine DVT prop Lovenox Alternative Code:Intubation Discharge Planning Continue PT/OT/ST. SSI pending. Difficult placement. Problem Qualifiers (1) Traumatic brain injury: (2) Subdural hemorrhage following injury: Qualified Code: S06.5X1A - Traumatic subdural hemorrhage with loss of consciousness of 30 minutes or less, initial encounter (3) Fracture of occipital bone of skull with loss of consciousness: Qualified Code: S02.119A - Fracture of occipital bone of skull with loss of consciousness, closed, initial encounter Montrell Springer Nov 20, 2016 13:50 Patricio Frankel DO Nov 20, 2016 17:27
[2016-11-20] MEDS: oxyCODONE HCL ORAL CONC 20 MG/ML SYRINGE PO PRN (20:31)
[2016-11-21] VITALS (8 sets, daily range): BP systolic 108–126; BP diastolic 63–73; PULSE 72–89; RESP 20–21; TEMP 96.5–98.2; O2SAT 90–98
[2016-11-21] MEDS: WATER IV SCH ×6 (00:33→22:21)
[2016-11-21] MEDS: PROPRANOLOL HCL 20 MG TAB PO SCH ×4 (00:33→17:01)
[2016-11-21] MEDS: VALPROATE IV SCH ×6 (00:33→22:21)
[2016-11-21] MEDS: DEXTROSE 5% IV SCH ×6 (00:33→22:21)
[2016-11-21] MEDS: SODIUM CHLORIDE 0.9% FLUSH 5 ML FLUSH IVF PRN (00:36)
[2016-11-21] MEDS: oxyCODONE HCL ORAL CONC 20 MG/ML SYRINGE PO PRN ×3 (03:56→22:26)
[2016-11-21] MEDS: HYDROCORTISONE 1% CREAM 30 GM TOPICAL SCH ×3 (04:02→22:28)
[2016-11-21] MEDS: cloNIDine HCL 0.3 MG TAB PO SCH ×3 (04:03→22:21)
[2016-11-21] MEDS: CHLORHEXIDINE 0.12% (ORAL KIT) 15 ML CUP MT SCH ×2 (08:00→22:22)
[2016-11-21] MEDS: FOLIC ACID 1 MG TAB PO SCH (08:16)
[2016-11-21] MEDS: LACTOBACILLUS ACIDOPHILUS TAB PEG SCH (08:16)
[2016-11-21] MEDS: POTASSIUM CHLORIDE 25 MEQ EFFERVESCENT TAB TUBE SCH (08:16)
[2016-11-21] MEDS: MULTIVITAMIN TAB PO SCH (08:16)
[2016-11-21] MEDS: amLODIPine BESYLATE 5 MG TAB PO SCH (08:16)
[2016-11-21] MEDS: DOCUSATE SODIUM 100 MG CAP PO SCH ×2 (08:16→22:21)
[2016-11-21] MEDS: levETIRAcetam 500 MG/5 ML UDC TUBE SCH ×2 (08:16→22:21)
[2016-11-21] MEDS: FUROSEMIDE 40 MG/4 ML VIAL IV PUSH SCH (08:16)
[2016-11-21] MEDS: THIAMINE HCL 100 MG TAB PO SCH (08:17)
[2016-11-21] MEDS: SODIUM CHLORIDE 0.9% FLUSH 5 ML FLUSH IVF SCH ×2 (08:17→22:21)
[2016-11-21] MEDS: PANTOPRAZOLE SODIUM 40 MG VIAL IVP SCH (08:18)
[2016-11-21] MEDS: HYOSCYAMINE SOLN 0.125 MG/ML 15 ML BTL PEG PRN ×2 (13:19→22:29)
[2016-11-21] MEDS: ENOXAPARIN SODIUM 40 MG/0.4 ML SYRINGE SQ SCH (13:19)
--- NOTE | 2016-11-21 13:21 | HHI.PR ---
Subjective Remarks Follow-up for TBI. Patient's fianc and friend at bedside. They states the patient had been able to communicate with him by writing on a whiteboard. Discussed with RN, patient has been having increased secretions still, but a bit less than yesterday, will try Levsin today. Patient's family requests to speak to neurosurgery concerning bone flap. Patient is more awake today. He follows commands and responds to voice. Attempts to mouth words. He denies any shortness of breath. Objective Vitals Vital Signs Date Time Temp Pulse Resp B/P Pulse Ox O2 Delivery O2 Flow Rate FiO2 11/21/16 12:11 97.2 89 20 118/63 96 11/21/16 08:33 Trach Collar 6.00 28 11/21/16 08:11 98.0 89 20 126/72 95 11/21/16 05:43 16 11/21/16 04:00 96.5 72 20 115/73 98 11/21/16 00:00 96.5 72 20 115/73 98 11/20/16 21:31 18 11/20/16 20:00 98.1 93 20 134/95 98 11/20/16 16:50 98.6 89 20 131/71 99 I/O 11/20/16 11/20/16 11/20/16 11/21/16 11/21/16 11/21/16 07:00 15:00 23:00 07:00 15:00 23:00 Intake Total 1047 ml Output Total 700 ml 1500 ml 300 ml 350 ml Balance -700 ml -1500 ml 747 ml -350 ml Tube Feeding 1047 ml Output Urine Total 700 ml 1500 ml 300 ml 350 ml # Bowel Movements 0 0 0 Result Diagram: 11/20/16 0725 11/20/16724 Objective Remarks GENERAL: Well-developed well-nourished. In no acute distress. SKIN: Warm and dry. Maculopapular rash of the upper extremity. HEENT: Previous right temporal bone flap. Pupils equal and round. Mucous membranes pink and moist. Tracheostomy in place. CARDIOVASCULAR: Regular rate and rhythm. No murmur appreciated. RESPIRATORY: No accessory muscle use. Clear to auscultation. Breath sounds equal bilaterally. GASTROINTESTINAL: Abdomen soft, non-tender, nondistended. Bowel sounds x4. MUSCULOSKELETAL: No obvious deformities. No clubbing or cyanosis. No edema. NEUROLOGICAL: Awake and alert. Responds slowly to voice. Moves upper and lower extremities spontaneously. Strength better in the upper extremities. Stronger on the right side. Nonverbal. Procedures 10/27/2016 Blue rhino tracheostomy 10/18/2016 Left frontal bur hole with placement of an intracranial pressure Right frontotemporoparietal decompressive craniectomy with evacuation of subdural hematoma 10/13/2016 Right frontal Anita hole with placement of a ventriculostomy catheter Date of Insertion: Oct 11, 2016 A/P Problem List: (1) Encephalopathy ICD Code: G93.40 Status: Acute (2) Pneumonia ICD Code: J18.9 Status: Acute (3) SAH (subarachnoid hemorrhage) ICD Code: I60.9 Status: Acute (4) Major neurocognitive disorder as late effect of traumatic brain injury with behavioral disturbance ICD Code: S06.9X9S Status: Acute (5) Traumatic brain injury ICD Code: S06.9X9A Status: Chronic (6) Subdural hemorrhage following injury ICD Code: S06.5X9A Status: Acute (7) Fracture of occipital bone of skull with loss of consciousness ICD Code: S02.119A Status: Acute (8) Hepatitis C antibody positive in blood ICD Code: R76.8 Status: Acute (9) Rash ICD Code: R21 Status: Acute Assessment and Plan Patient is a 56-year-old male who came to the hospital on 10/11/16 as a trauma patient. As per report, patient was on a ladder and fell approximately 10 feet. Bystander on the scene perform CPR for approximately 2 minutes stating the patient was blue. On EMS arrival patient is reported to have a GCS of 6, which improved at the time of ED arrival to GCS of 11. Imaging studies showed occipital fracture subdural and subarachnoid hemorrhage. The patient developed worsening agitation he was intubated and placed on mechanical ventilation. Repeat CT in 24 hours showed worsening of bilateral subdural subarachnoid hemorrhage with right temporal parietal subdural hemorrhage with 9 mL leftward midline shift. S/P Craniotomy and drain. Pt. now on tracheostomy and PEG tube placed. Care transferred to hospitalist service. Trauma, status post fall from a ladder Skull fracture, occipital Subarachnoid hemorrhage Subdural hemorrhage Status post craniotomy Encephalopathy - Rehabilitation medicine following. - Continue Keppra, valproic acid. - Seizure precaution - Continue physical therapy occupational therapy for deconditioning Tracheostomy Pneumonia, HCAP vs. Aspiration pneumonia, possibly S. Aureus/ Anaerobes - Continued leukocytosis, trended down - Reviewed chest xray repeat 11/10/16- Right basilar patchiness consistent with probable pneumonia. Likely aspiration pneumonia. - 11/04/16 Chest x-ray showed patchy right lung base opacity nonspecific. repeat chest x-ray showed no significant changes occurred. - Continue pulmonary toileting. - Neb treatments - Pulmonology following input appreciated. - Plan to wean off tracheostomy. Currently on trach collar FiO2 28% - Suction when necessary. Oral and trach care. - Aspiration precaution. - Received Levaquin and Flagyl IV, discontinued on 11/14/2016. - Add Levsin for secretions - Restraints if needed to protect tracheostomy if agitated HTN - Continue medication Lasix 40 mg daily, propranolol 20 mg every 6 hours, clonidine 0.3 every 8 hours, labetalol when necessary. - Vasotec PRN. Continue Amlodipine 5mg Qday. PEG in place - [facility] - Monitor for aspiration risk Diarrhea - On the maylin shield - Hold off bowel regimen. - C. difficile negative Hepatitis C - Positive hep C serology - GI follow up as an outpatient. Urinary tract infection - UA positive - Culture showed Rossy albicans less than 10,000 - Switched to condom catheter. Continue betty-care. EtOH, abuse - Folic acid, thiamine DVT prop Lovenox Alternative Code:Intubation Discharge Planning Continue PT/OT/ST. SSI pending. Difficult placement. Problem Qualifiers (1) Traumatic brain injury: (2) Subdural hemorrhage following injury: Qualified Code: S06.5X1A - Traumatic subdural hemorrhage with loss of consciousness of 30 minutes or less, initial encounter (3) Fracture of occipital bone of skull with loss of consciousness: Qualified Code: S02.119A - Fracture of occipital bone of skull with loss of consciousness, closed, initial encounter Montrell Springer Nov 21, 2016 13:21 Patricio Frankel DO Nov 21, 2016 15:37
[2016-11-21] MEDS: CHLORHEXIDINE GLUCONATE 2 % 1 PACK (2 CLOTHS) TOP SCH (22:22)
[2016-11-21] MEDS: diphenhydrAMINE HCL 50 MG/ML VIAL IM PRN (22:22)
[2016-11-22] VITALS (9 sets, daily range): BP systolic 110–141; BP diastolic 57–80; PULSE 75–98; RESP 16–20; TEMP 95.6–98.9; O2SAT 92–99
[2016-11-22] MEDS: HYOSCYAMINE SOLN 0.125 MG/ML 15 ML BTL PEG PRN (05:00)
[2016-11-22] MEDS: cloNIDine HCL 0.3 MG TAB PO SCH ×3 (05:00→22:00)
[2016-11-22] MEDS: PROPRANOLOL HCL 20 MG TAB PO SCH ×4 (05:00→17:31)
[2016-11-22] MEDS: oxyCODONE HCL ORAL CONC 20 MG/ML SYRINGE PO PRN (05:00)
[2016-11-22] MEDS: MAGNESIUM HYDROXIDE SUSP 30 ML CUP PO PRN (05:00)
[2016-11-22] MEDS: HYDROCORTISONE 1% CREAM 30 GM TOPICAL SCH ×3 (05:00→22:04)
[2016-11-22] MEDS: CHLORHEXIDINE 0.12% (ORAL KIT) 15 ML CUP MT SCH ×2 (08:00→22:04)
[2016-11-22] MEDS: amLODIPine BESYLATE 5 MG TAB PO SCH (09:00)
[2016-11-22] MEDS: FUROSEMIDE 40 MG/4 ML VIAL IV PUSH SCH (09:00)
[2016-11-22] MEDS: SODIUM CHLORIDE 0.9% FLUSH 5 ML FLUSH IVF SCH ×2 (09:00→22:04)
[2016-11-22] MEDS: DOCUSATE SODIUM 100 MG CAP PO SCH ×2 (10:05→22:01)
[2016-11-22] MEDS: FOLIC ACID 1 MG TAB PO SCH (10:05)
[2016-11-22] MEDS: MULTIVITAMIN TAB PO SCH (10:05)
[2016-11-22] MEDS: POTASSIUM CHLORIDE 25 MEQ EFFERVESCENT TAB TUBE SCH (10:05)
[2016-11-22] MEDS: LACTOBACILLUS ACIDOPHILUS TAB PEG SCH (10:05)
[2016-11-22] MEDS: THIAMINE HCL 100 MG TAB PO SCH (10:05)
[2016-11-22] MEDS: PANTOPRAZOLE SODIUM 40 MG VIAL IVP SCH (10:06)
[2016-11-22] MEDS: levETIRAcetam 500 MG/5 ML UDC TUBE SCH ×2 (10:06→22:03)
[2016-11-22] MEDS: DEXTROSE 5% IV SCH ×4 (10:18→22:04)
[2016-11-22] MEDS: WATER IV SCH ×4 (10:18→22:04)
[2016-11-22] MEDS: VALPROATE IV SCH ×4 (10:18→22:04)
[2016-11-22] MEDS: ENOXAPARIN SODIUM 40 MG/0.4 ML SYRINGE SQ SCH (10:21)
--- NOTE | 2016-11-22 12:40 | HHI.PR ---
Subjective Remarks Follow up for TBI. Patient seen with RN and [employer]AL INSPECTOR at bedside. No acute events overnight. Patient in [facility], RN reports patient does try to pull at trach and IVs. The patient denies any leg pain today. No medical complaints. Vital signs stable. Objective Vitals Vital Signs Date Time Temp Pulse Resp B/P Pulse Ox O2 Delivery O2 Flow Rate FiO2 11/22/16 11:15 98.8 92 16 121/80 96 11/22/16 08:14 97.8 75 16 110/57 98 11/22/16 06:21 18 11/22/16 04:00 95.6 87 20 141/79 94 11/22/16 00:00 97.5 79 20 114/69 92 11/21/16 20:00 97.8 81 20 115/67 92 11/21/16 18:00 90 T-piece 6.00 28 11/21/16 16:00 98.2 86 21 108/66 90 11/21/16 13:10 95 T-piece 28 I/O 11/21/16 11/21/16 11/21/16 11/22/16 11/22/16 11/22/16 07:00 15:00 23:00 07:00 15:00 23:00 Intake Total 748 ml 498 ml Output Total 350 ml 500 ml 550 ml 900 ml Balance 398 ml -2 ml -550 ml -900 ml Tube Feeding 748 ml 498 ml Output Urine Total 350 ml 500 ml 550 ml 900 ml Bladder Scan Volume Amount 999 ml # Voids 1 1 # Bowel Movements 0 0 Result Diagram: 11/20/16 0725 11/20/16 0725 Imaging Last Impressions Chest X-Ray 11/09/16 0000 Signed Impressions: Service Date/Time: Wednesday, November 09, 2016 17:22 - CONCLUSION: Right basilar patchiness consistent with probable pneumonia. Clinical correlation is recommended. Jose James MD Lower Extremity Ultrasound 10/27/16 0000 Signed Impressions: Service Date/Time: Thursday, October 27, 2016 10:13 - CONCLUSION: No DVT either lower extremity. 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 MD Head CT 10/23/16 0000 Signed Impressions: Service Date/Time: Sunday, October 23, 2016 11:21 - CONCLUSION: 1. Examination quality is degraded by motion artifact. There is decreased midline shift, currently measuring 3 mm compared to 6 mm on the prior study. 2. There are persistent hemorrhagic contusions in the right frontal lobe but they are less well-visualized today either related to interval improvement or related to motion artifact. Red Arenas MD Chest CT 10/23/16 0000 Signed Impressions: Service Date/Time: Sunday, October 23, 2016 11:24 - CONCLUSION: 1. Airspace consolidation within the left upper lobe. This could represent an infectious process. 2. Small bilateral pleural effusions with associated compressive atelectasis in the lower lobes. Red Arenas MD Abdomen/Pelvis CT 10/23/16 0000 Signed Impressions: Service Date/Time: Sunday, October 23, 2016 11:27 - CONCLUSION: 1. No acute finding is identified within the abdomen or pelvis. 2. Anasarca. 3. Stable 7 mm nodule on the left adrenal gland. Small size favors a benign process but is incompletely characterized on this examination. Red Arenas MD Neck CTA 10/12/16 0000 Signed Impressions: Service Date/Time: Wednesday, October 12, 2016 09:27 - CONCLUSION: Mild atherosclerotic changes in the proximal portions of both internal carotid arteries but no significant stenosis. Dez Petersen MD Head CTA 10/12/16 0000 Signed Impressions: Service Date/Time: Wednesday, October 12, 2016 09:27 - CONCLUSION: No evidence of acute vascular injury Red Hoffman MD Pelvis X-Ray 10/11/16 1213 Signed Impressions: Service Date/Time: Tuesday, October 11, 2016 12:02 - CONCLUSION: Satisfactory trauma pelvis appearance. Red Hoffman MD Cervical Spine CT 10/11/16 1213 Signed Impressions: Service Date/Time: Tuesday, October 11, 2016 12:19 - CONCLUSION: Occipital skull fracture. No evidence of acute traumatic injury in the cervical spine Red Hoffman MD Objective Remarks GENERAL: Well-developed well-nourished. In no acute distress. SKIN: Warm and dry. Maculopapular rash of the upper extremities, worse at the right wrist/forearm. HEENT: Previous right temporal bone flap. Pupils equal and round. Mucous membranes pink and moist. Tracheostomy in place. CARDIOVASCULAR: Regular rate and rhythm. No murmur appreciated. RESPIRATORY: No accessory muscle use. Clear to auscultation. Breath sounds equal bilaterally. GASTROINTESTINAL: Abdomen soft, non-tender, nondistended. Bowel sounds x4. MUSCULOSKELETAL: No obvious deformities. No clubbing or cyanosis. No edema. NEUROLOGICAL: Awake and alert. Responds slowly to voice. Moves upper and lower extremities spontaneously. Strength better in the upper extremities. Stronger on the right side. Attempts to mouths words, mostly nonverbal. Procedures 10/27/2016 [place] tracheostomy 10/18/2016 Left frontal bur hole with placement of an intracranial pressure Right frontotemporoparietal decompressive craniectomy with evacuation of subdural hematoma 10/13/2016 Right frontal [place] hole with placement of a ventriculostomy catheter Medications and IVs Current Medications Medications (Trade) Dose Ordered Sig/Jony Route Start Time Stop Time Status Last Admin Miscellaneous Information 1 [id number] XX 10/11/16 13:00 10/11/16 13:00 (Chlorhexidine 2% Cloth) 3 pack Taper DAILY@04 TOP 10/12/16 04:00 10/08/17 03:59 11/15/16 04:00 (Chlorhexidine 2% Cloth) 3 pack UNSCH PRN TOP 10/11/16 13:00 (Peridex 0.12% Liq) 15 ml BID@08,20 MT 10/12/16 08:00 11/22/16 08:00 (Tylenol Supp) 650 mg Q4H PRN CA 10/15/16 12:15 Info 1 UNSCH XX 10/17/16 11:00 (NS Flush) 2 ml UNSCH PRN IVF 10/18/16 11:45 11/21/16 00:36 (NS Flush) 2 ml BID IVF 10/18/16 21:00 11/22/16 09:00 (Colace) 100 mg BID PO 10/18/16 21:00 11/22/16 10:05 (Protonix Inj) 40 mg DAILY IVP 10/19/16 09:00 11/22/16 10:06 (Zofran Inj) 4 mg Q6H PRN IV 10/18/16 11:45 (Tylenol) 650 mg Q4H PRN PO 10/18/16 11:45 11/07/16 18:32 (Inderal) 20 mg Q6HR PO 10/22/16 18:00 11/22/16 05:00 (Catapres) 0.3 mg Q8HR PO 10/22/16 16:42 11/22/16 05:00 (Folate) 1 mg DAILY PO 10/25/16 09:00 11/22/16 10:05 (Theragran) 1 tab DAILY PO 10/25/16 09:00 11/22/16 10:05 (Roxicodone Intensol Liq) 5 mg Q4H PRN PO 10/24/16 12:30 11/22/16 05:00 (Roxicodone Intensol Liq) 10 mg Q4H PRN PO 10/24/16 12:30 11/21/16 03:56 (Lasix Inj) 40 mg DAILY IV PUSH 10/26/16 09:00 11/22/16 09:00 (K-Lyte Cl Eff) 25 meq DAILY TUBE 10/26/16 09:00 11/22/16 10:05 (Keppra Liq) 1,500 mg Q12HR TUBE 10/27/16 21:00 11/22/16 10:06 (Lovenox Inj) 40 mg Q24H SQ 11/03/16 12:00 11/22/16 10:21 (Milk Of Magnesia Liq) 30 ml DAILY PRN PO 11/10/16 09:00 11/22/16 05:00 (Vitamin B1) 100 mg DAILY PO 11/11/16 09:00 11/22/16 10:05 (Norvasc) 5 mg DAILY PO 11/10/16 11:30 11/21/16 08:16 Lactobacillus Acidophilus 1 tab 1 tab DAILY PEG 11/11/16 09:00 11/22/16 10:05 (Depacon Inj/D5W 100 ml Inj) 110 ml @ 105 mls/hr Q12H IV 11/10/16 23:00 11/22/16 10:18 (Vasotec Inj) 1.25 mg Q8H PRN IV PUSH 11/11/16 13:00 (Hydrocortisone 1% Cream) 1 applic Q8HR TOPICAL 11/18/16 14:15 11/22/16 05:00 (Benadryl Inj) 25 mg Q12HR PRN IM 11/18/16 14:15 11/21/16 22:22 (Levsin Liq) 0.125 mg Q4H PRN PEG 11/20/16 14:00 11/22/16 05:00 A/P Problem List: (1) Encephalopathy ICD Code: G93.40 Status: Acute (2) Pneumonia ICD Code: J18.9 Status: Acute (3) SAH (subarachnoid hemorrhage) ICD Code: I60.9 Status: Acute (4) Major neurocognitive disorder as late effect of traumatic brain injury with behavioral disturbance ICD Code: S06.9X9S Status: Acute (5) Traumatic brain injury ICD Code: S06.9X9A Status: Chronic (6) Subdural hemorrhage following injury ICD Code: S06.5X9A Status: Acute (7) Fracture of occipital bone of skull with loss of consciousness ICD Code: S02.119A Status: Acute (8) Hepatitis C antibody positive in blood ICD Code: R76.8 Status: Acute (9) Rash ICD Code: R21 Status: Acute Assessment and Plan 56-year-old male who came to the hospital on 10/11/16 as a trauma patient. As per report, patient was on a ladder and fell approximately 10 feet. Bystander on the scene perform CPR for approximately 2 minutes stating the patient was blue. On EMS arrival patient is reported to have a GCS of 6, which improved at the time of ED arrival to GCS of 11. Imaging studies showed occipital fracture subdural and subarachnoid hemorrhage. The patient developed worsening agitation he was intubated and placed on mechanical ventilation. Repeat CT in 24 hours showed worsening of bilateral subdural subarachnoid hemorrhage with right temporal parietal subdural hemorrhage with 9 mL leftward midline shift. S /P Craniotomy and drain. Pt. now on tracheostomy and PEG tube placed. Care transferred to hospitalist service. Trauma, status post fall from a ladder Skull fracture, occipital Subarachnoid hemorrhage Subdural hemorrhage Status post craniotomy Encephalopathy - Rehabilitation medicine following. - Continue Keppra, valproic acid. - Seizure precaution - Continue physical therapy & occupational therapy for deconditioning Tracheostomy Pneumonia, HCAP vs. Aspiration pneumonia, possibly S. Aureus/ Anaerobes - Continued leukocytosis, trended down - Reviewed chest xray repeat 11/10/16- Right basilar patchiness consistent with probable pneumonia. Likely aspiration pneumonia. - 11/04/16 Chest x-ray showed patchy right lung base opacity nonspecific. repeat chest x-ray showed no significant changes occurred. - Continue pulmonary toileting. - Neb treatments - Pulmonology following input appreciated. - Plan to wean off tracheostomy. Currently on trach collar FiO2 28% - Suction when necessary. Oral and trach care. - Aspiration precaution. - Received Levaquin and Flagyl IV, discontinued on 11/14/2016. - Add Levsin for secretions - Restraints if needed to protect tracheostomy if agitated HTN - Continue Lasix 40 mg daily, propranolol 20 mg every 6 hours, clonidine 0.3 every 8 hours, labetalol prn. - Vasotec PRN. Continue Amlodipine 5mg Qday. PEG in place - Continue tube feedings as ordered Jevity - Monitor for aspiration risk Diarrhea - On the maylin shield - Hold off bowel regimen. - C. difficile negative Hepatitis C - Positive hep C serology - GI follow up as an outpatient. Urinary tract infection - UA positive - Culture showed Rossy albicans less than 10,000 - Switched to condom catheter. Continue betty-care. EtOH, abuse - Folic acid, thiamine DVT prop Lovenox Alternative Code:Intubation Written by Dedra Norris, acting as scribe for Dr. Frankel on 11/22/16 at 11:05. Discharge Planning Continue PT/OT/ST. SSI pending. Difficult placement. Problem Qualifiers (1) Traumatic brain injury: (2) Subdural hemorrhage following injury: Qualified Code: S06.5X1A - Traumatic subdural hemorrhage with loss of consciousness of 30 minutes or less, initial encounter (3) Fracture of occipital bone of skull with loss of consciousness: Qualified Code: S02.119A - Fracture of occipital bone of skull with loss of consciousness, closed, initial encounter Dedra Norris PA-C Nov 22, 2016 12:40 pm
--- NOTE | 2016-11-22 15:30 | HHI.HCPN ---
Reason for visit a. To assist with evaluation and management of symptoms including: encephalopathy; weakness; dysphagia, pain b. To assist medical decision maker(s) with: better understanding of current medical conditions; weighing benefits/burdens of medical treatment options; making medical treatment decisions. . Subjective/Interval History Patient seen and assessed in room 1535. Also present, patient nurse Art. Patient is awake and alert. Using dry erase board to communicate, answering yes/ no questions by nodding and shaking his head with greater consistency. Patient in hands, RN reports patient does try to pull out trach and peripheral IVs. When asked if he is painful, the patient writes out "Hands hurt. Right chest hurts". When he asked to rate his pain on a scale of 0 - 10, he does not respond. Tracheostomy to T-piece, FiO2 28% with oxygen saturation in the high 90s. Follow -up chest x-ray on 11/09/16 showed right basilar patchiness consistent with probable pneumonia, likely aspiration. Afebrile. Persistent leukocytosis, WBC of 12.2 on 11/20/16. Sputum culture on 11/09 growing Serratia Marcescens. Urine culture on 11/07/16 growing Rossy Albicans. Patient remains NPO, unable to pass swallow evaluation due to his severe cognitivenegative deficits. Tolerating bypass feedings, Jevity 1.5 at 65ml/ hour via PEG tube. . Family/friend interactions Phone call to patient's sister/HSP (Manuela) to provide an update on the patient's clinical condition. Manuela tentatively plans to return to [place] this 11/27. . Advance Directives Living Will: Never completed Health Care Surrogate: Never completed Durable Power of Director Of Clinical Education: Never completed Advance Directive Specifics Date completed: Advanced directives were never completed. . Health Care Surrogate(s): There is no written designation of a health care surrogate. . Documented care wishes: No written documentation of health care preferences/goals/wishes . Objective Vital Signs Date Time Temp Pulse Resp B/P Pulse Ox O2 Delivery O2 Flow Rate FiO2 11/22/16 11:15 98.8 92 16 121/80 96 11/22/16 08:14 97.8 75 16 110/57 98 11/22/16 07:40 95 T-piece 6.00 28 11/22/16 06:21 18 11/22/16 04:00 95.6 87 20 141/79 94 11/22/16 00:00 97.5 79 20 114/69 92 11/21/16 20:00 97.8 81 20 115/67 92 11/21/16 18:00 90 T-piece 6.00 28 11/21/16 16:00 98.2 86 21 108/66 90 Intake & Output 11/22/16 11/22/16 07:00 19:00 Output Total 1450 ml Balance -1450 ml Output Urine Total 1450 ml Bladder Scan Volume Amount 999 ml # Voids 1 1 . Physical Exam CONSTITUTIONAL/GENERAL: This is an adequately nourished patient with trach and PEG s/p TBI, in no acute distress. TUBES/LINES/DRAINS: Tracheostomy; PIV x 1, SCDs, PEG, Podus. SKIN: Right craniotomy surgical incision healing. Rash on BUE, multiple areas of breakdown HEAD: S/p craniotomy, right skull flap is soft. EYES: Pupils equal, reactive and sluggish. No scleral icterus. No injection or drainage. Fundi not examined. ENT: Nose without bleeding or purulent drainage. NECK: Trachea midline. Tracheostomy to t-piece. CARDIOVASCULAR: Heart rate and rhythm regular. No murmurs, gallops, or rubs. RESPIRATORY/CHEST: Tracheostomy to T-piece, FiO2 28%. Respirations unlabored. GASTROINTESTINAL: Abdomen rounded. BS active x 4. Tolerating tube feedings, PEG tube site appears healthy. GENITOURINARY: Without palpable bladder distension MUSCULOSKELETAL: Extremities without clubbing, cyanosis. No mottling or clubbing. NEUROLOGICAL: Alert and awake. Communicating with dry erase board, able to make needs known. Answers yes/no questions by nodding/shaking head with increased consistency. PSYCHIATRIC: Does not appear to be experiencing anxiety/agitation. . Diagnostic Tests Laboratory Laboratory Tests Test 11/20/16 07:25 White Blood Count 12.2 TH/MM3 (4.0-11.0) Red Blood Count 3.15 MIL/MM3 (4.50-5.90) Hemoglobin 9.8 GM/DL (13.0-17.0) Hematocrit 29.2 % (39.0-51.0) Mean Corpuscular Volume 92.9 FL (80.0-100.0) Mean Corpuscular Hemoglobin 31.0 PG (27.0-34.0) Mean Corpuscular Hemoglobin 33.4 % Concent (32.0-36.0) Red Cell Distribution Width 14.5 % (11.6-17.2) Platelet Count 373 TH/MM3 (150-450) Mean Platelet Volume 6.8 FL (7.0-11.0) Neutrophils (%) (Auto) 73.4 % (16.0-70.0) Lymphocytes (%) (Auto) 12.3 % (9.0-44.0) Monocytes (%) (Auto) 13.0 % (0.0-8.0) Eosinophils (%) (Auto) 0.9 % (0.0-4.0) Basophils (%) (Auto) 0.4 % (0.0-2.0) Neutrophils # (Auto) 8.9 TH/MM3 (1.8-7.7) Lymphocytes # (Auto) 1.5 TH/MM3 (1.0-4.8) Monocytes # (Auto) 1.6 TH/MM3 (0-0.9) Eosinophils # (Auto) 0.1 TH/MM3 (0-0.4) Basophils # (Auto) 0.0 TH/MM3 (0-0.2) CBC Comment DIFF FINAL Differential Comment Sodium Level 140 MEQ/L (136-145) Potassium Level 4.0 MEQ/L (3.5-5.1) Chloride Level 102 MEQ/L (98-107) Carbon Dioxide Level 33.4 MEQ/L (21.0-32.0) Anion Gap 5 MEQ/L (5-15) Blood Urea Nitrogen 11 MG/DL (7-18) Creatinine 0.64 MG/DL (0.60-1.30) Estimat Glomerular Filtration 129 ML/MIN Rate (>89) Random Glucose 113 MG/DL (74-106) Calcium Level 8.8 MG/DL (8.5-10.1) . Result Diagram: 11/20/1625 11/20/1625 Procedures * [place] hole with ICP monitor placed * Right craniectomy * Art line placement * Intubation/mechanical ventilation * Central line placement. * Tracheostomy * Peg tube . Assessment and Plan Disease Oriented Problem List: (1) Traumatic brain injury (2) SAH (subarachnoid hemorrhage) (3) Subdural hemorrhage following injury (4) Fracture of occipital bone of skull with loss of consciousness (5) Encephalopathy acute (6) Alcohol dependence Comment: Long history of 12-15 drinks per day. . (7) Major neurocognitive disorder as late effect of traumatic brain injury with behavioral disturbance (8) Seizure (9) Pneumonia Comment: Probable aspiration. Blood in vomitus were in airway immediately after fall. . (10) Hepatitis C antibody positive in blood (11) Rectal bleeding Comment: Has had years of abdominal pain with intermittent rectal bleeding. Has avoided recommended work-up due to lack on insurance, lack of funds, and fear of results (per [facility]). . Symptom Scale: (1) Pain 0-10 Scale: Unable to quantify Comment: Per review of notes: Patient had history of several pain syndromes. He complained of abdominal pain for years with occasional rectal bleeding. He also complained of right ankle pain where he had surgery and achiness in multiple joints. He would use BC powders several times a day and occasionally hydrocodone. Other current sources of pain might include prolonged bedbound status, post op wound/head pain, discomfort from trach/gann/tracheostomy/ vascular access lines. 11/22/16 Patient reports pain in hands bilaterally and right chest. Orders are in place for PRN oxycodone at this time 3 doses administered in the past 24 hours. . (2) Encephalopathy 0-10 Scale: Unable to quantify Comment: = This has been multi-factorial and has involved the brain injury, alcohol withdrawal, infection, seizure, etc. Current encephalopathy now mostly due to brain injury, minimal neurological gains have been made. Follow-up EEG on 11/03/16 has significantly improved in comparison to prior reports. No epileptiform features were present. Patient remains on Valproate and Keppra for seizure management. = 11/22/16: Patient is awake and alert. Using dry erase board to communicate, answering yes/no questions by nodding and shaking his head with greater consistency. Patient in hands, RN reports patient does try to pull out trach and peripheral IVs. When asked if he is painful, the patient writes out "Hands hurt. Right chest hurts". When he asked to rate his pain on a scale of 0 - 10, he does not respond. . (3) Dyspnea Comment: Tracheostomy to T-piece, FiO2 28% with oxygen saturation in the mid to high 90s. Coarse breath sounds with scattered rhonchi, suctioned for thick white sputum. Follow-up chest x-ray on 11/09/16 showed right basilar patchiness consistent with probable pneumonia, likely aspiration. Sputum culture on growing Serratia Marcescens. . (4) Dysphagia Comment: Patient tolerating bypass feedings, Jevity 1.5 at 65ml/hour via PEG tube. Speech therapy continues to follow - honey consistency liquids dyed blue to facilitate tracking of aspirate noted immediately after presentation, seen in tracheostomy. Patient remains NPO secondary to severe profound cognitive communicative deficits. . Pertinent Non-Medical Issues Psychosocial: Mr Nixon was born in [place] to [place] citizens. His mother in childbirth and his biological father, with already 5 children to care for, put Mr Nixon up for adoption. His adoptive parents are both . One adoptive sister is . An adoptive brother lives in [place] and an adoptive sister lives in [place]. He is not in close touch with the biological family in [place]. Patient has a high school education. 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 Never . No kids. Has been with his fijessicae -- Brandy Workman -- for 8 years. They were scheduled to on 01/16/17. Spiritual: [employer] background. Pentecostalism and spirituality have not played an important role in his life. [place] appreciates treatment technician visits. Legal: No advance directives. Without a designated health care surrogate, decision-making appears to fall to the majority of his siblings. Ethical issues impacting care: Patient is incapacitated to make his own health care decisions. It is unclear if/when he will regain capacity. . Important Contacts * Amanda "Manuela"reynold (sister) - heatl care proxy: [phone] or (niece's cell phone) * Brandy Workman (fiance) [phone] or [phone] * Perez "Demarco" (brother) [phone] * Amanda "Jamila" Ubaldo (niece) [phone] . 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 It is unclear if he had some sort of event causing the fall (he had vomitus and blood in his airway at time of fall) or merely fell. His injuries include occipital bone fracture, SDH, SAH. Complications include EtOH withdrawal, aspiration pneumonia. He has had high ICPs and ultimately underwent right sided craniectomy for decompression. He has had seizure activity. There has been little evidence so far of meaningful neurological recovery. Neurosurgery feels there continues to be a reasonable chance of meaningful neurologic recovery (though it will take a lot of time) and is recommending ongoing aggressive care. . Code Status: Alternative Code (Intubation only) Plan == Code Status: FULL CODE == Decision making: Mr. Nixon is incapacitated to make his own health care decisions and it is unclear if/when he will regain capacity. Patient is not legally , has no children, and the parents who adopted him are . [place], decision making would fall to the patient's adoptive siblings -- Amanda and Demarco. Demarco has agreed to defer decision making to sister (Amanda). == AMANDA "MANUELA" BRANCH (SISTER) IS THE HEALTH CARE PROXY DECISION MAKER . The patient's fiancee -- Brandy Workman - has NO decision making authority, but the siblings are including her in the conversations. == Faxed correct contact information to admissions to make changes. == Received phone call from patient's sister/HCS (Manuela) on 10/27/16. Manuela's 44 year old daughter unexpectedly 1 week prior. Manuela will not be returning to [place] for an unknown period of time, but is available via telephone at . == Goals of medical treatment: Goals remain aggressive, hopeful patient will be placed in a SNF for rehabilitation. SSI pending, difficult placement. == Encephalopathy: This has been multi-factorial and has involved the brain injury, alcohol withdrawal, infection, seizure, etc. Current encephalopathy now mostly due to brain injury, minimal neurological gains have been made. Follow-up EEG on 11/03/16 has significantly improved in comparison to prior reports. No epileptiform features were present. Patient remains on Valproate and Keppra for seizure management. 11/22/16: Patient is awake and alert. Using dry erase board to communicate, answering yes/no questions by nodding and shaking his head with greater consistency. Patient' hands in mittens, RN reports patient does try to pull out trach and peripheral IVs. == Pain: Per review of notes: Patient had history of several pain syndromes. He complained of abdominal pain for years with occasional rectal bleeding. He also complained of right ankle pain where he had surgery and achiness in multiple joints. He would use BC powders several times a day and occasionally hydrocodone. Other current sources of pain might include prolonged bedbound status, post op wound/head pain, discomfort from trach/gann/tracheostomy/ vascular access lines. 11/22/16: Patient reports pain in hands bilaterally and right chest. Orders are in place for PRN oxycodone at this time 3 doses administered in the past 24 hours. == Dyspnea: Tracheostomy to T-piece, FiO2 28% with oxygen saturation in the mid to high 90s. Follow-up chest x-ray on 11/09/16 showed right basilar patchiness consistent with probable pneumonia, likely aspiration. Sputum culture on 11/09/16 growing Serratia Marcescens. == Dysphasia: Patient unable to pass swallow evaluation, speech therapy continues to follow. Remains NPO secondary to severe cognitivecommunicative deficits. Tolerating by past feedings, Jevity 1.5 at 65ml/per hour via PEG tube == Phone call to patient's sister/HSP (Manuela) to provide an update on the patient 's clinical condition. Manuela tentatively plans to return to [place] this Tuesday11/27/16. == Palliative care will continue to follow to assist with symptom management and to further clarify goals of medical treatment as the clinical course evolves. . Attestation To help prompt me to consider important information that might be impacting today's encounter and assessment, information from prior notes written by myself or my colleagues may have been "brought forward" into today's note. My signature on this note, however, is an attestation that I personally performed the exam, history, and/or decision-making noted today, and, unless otherwise indicated, the interactions with patient, family, and staff as well as the review of records all occurred today. I also attest that the listed assessment and stated plan reflect my best clinical judgment today based on the combination of historical information, prior notes, and today's exam/ interactions. When time spent is documented, it refers only to time spent today by the signer, or if indicated, combined time spent today by collaborating physician/nurse practitioner. . Татьяна Hauser Nov 22, 2016 15:30
--- NOTE | 2016-11-22 17:56 | HHI.PR ---
Subjective Remarks 56 YOWM with Fall,ICH,ventriculostomy RF, has trach. Alert, awake, looks around No fever Tolerates TF at goal rate 65 cc /HR Lot of thin frothy trach secretions. Objective Vital Signs Vital Signs Date Time Temp Pulse Resp B/P Pulse Ox O2 Delivery O2 Flow Rate FiO2 11/22/16 16:00 98.9 92 16 118/72 96 11/22/16 11:15 98.8 92 16 121/80 96 11/22/16 08:14 97.8 75 16 110/57 98 11/22/16 07:40 95 T-piece 6.00 28 11/22/16 07:00 Trach Collar 6.00 28 11/22/16 06:21 18 11/22/16 04:00 95.6 87 20 141/79 94 11/22/16 03:00 98.9 92 16 118/72 96 11/22/16 00:00 97.5 79 20 114/69 92 11/21/16 20:00 97.8 81 20 115/67 92 11/21/16 18:00 90 T-piece 6.00 28 I/O 11/21/16 11/21/16 11/21/16 11/22/16 11/22/16 11/22/16 07:00 15:00 23:00 07:00 15:00 23:00 Intake Total 748 ml 498 ml Output Total 350 ml 500 ml 550 ml 900 ml Balance 398 ml -2 ml -550 ml -900 ml Tube Feeding 748 ml 498 ml Output Urine Total 350 ml 500 ml 550 ml 900 ml Bladder Scan Volume Amount 999 ml # Voids 1 1 # Bowel Movements 0 0 Result Diagram: 11/20/1625 11/20/16 0725 Objective Remarks GENERAL: WBWN male, On Trach SKIN: Warm and dry. HEAD: Normocephalic. EYES: No scleral icterus. No injection or drainage. NECK: Supple, trachea midline. No JVD or lymphadenopathy. trach in place CARDIOVASCULAR: Regular rate and rhythm without murmurs, gallops, or rubs. RESPIRATORY: Breath sounds equal bilaterally. No accessory muscle use. GASTROINTESTINAL: Abdomen soft, non-tender, nondistended. PEG in place MUSCULOSKELETAL: No cyanosis, or edema. BACK: Nontender without obvious deformity. No CVA tenderness. A/P Assessment and Plan RF. s/p Trach s/P Ventriculostomy PEG placement PLAN: Aerosol nebs SQ Lovenox TF @ 65cc/HR Trach suction prn Murphy Cm MD Nov 22, 2016 17:56
[2016-11-23] VITALS (7 sets, daily range): BP systolic 108–137; BP diastolic 65–81; PULSE 69–91; RESP 18–19; TEMP 97.4–98.3; O2SAT 93–100
[2016-11-23] MEDS: PROPRANOLOL HCL 20 MG TAB PO SCH ×4 (01:12→23:37)
[2016-11-23] MEDS: CHLORHEXIDINE GLUCONATE 2 % 1 PACK (2 CLOTHS) TOP SCH (04:58)
[2016-11-23] MEDS: HYDROCORTISONE 1% CREAM 30 GM TOPICAL SCH ×3 (05:05→22:04)
[2016-11-23] MEDS: cloNIDine HCL 0.3 MG TAB PO SCH ×3 (05:05→22:03)
[2016-11-23] MEDS: FOLIC ACID 1 MG TAB PO SCH (09:00)
[2016-11-23] MEDS: POTASSIUM CHLORIDE 25 MEQ EFFERVESCENT TAB TUBE SCH (09:00)
[2016-11-23] MEDS: MULTIVITAMIN TAB PO SCH (09:00)
[2016-11-23] MEDS: SODIUM CHLORIDE 0.9% FLUSH 5 ML FLUSH IVF SCH ×2 (09:00→22:03)
[2016-11-23] MEDS: amLODIPine BESYLATE 5 MG TAB PO SCH (09:00)
[2016-11-23] MEDS: PANTOPRAZOLE SODIUM 40 MG VIAL IVP SCH (09:00)
[2016-11-23] MEDS: FUROSEMIDE 40 MG/4 ML VIAL IV PUSH SCH (09:00)
[2016-11-23] MEDS: levETIRAcetam 500 MG/5 ML UDC TUBE SCH ×2 (09:00→22:04)
[2016-11-23] MEDS: THIAMINE HCL 100 MG TAB PO SCH (09:00)
[2016-11-23] MEDS: LACTOBACILLUS ACIDOPHILUS TAB PEG SCH (09:00)
[2016-11-23] MEDS: DOCUSATE SODIUM 100 MG CAP PO SCH ×2 (09:00→22:03)
[2016-11-23] MEDS: VALPROATE IV SCH ×4 (11:00→22:04)
[2016-11-23] MEDS: WATER IV SCH ×4 (11:00→22:04)
[2016-11-23] MEDS: DEXTROSE 5% IV SCH ×4 (11:00→22:04)
--- NOTE | 2016-11-23 11:17 | HHI.PR ---
Subjective Remarks 56 YOWM with Fall,ICH,ventriculostomy RF, has trach. Alert, awake, looks around No fever Tolerates TF at goal rate 65 cc /HR Lot of thin frothy trach secretions. No new complaint Objective Vital Signs Vital Signs Date Time Temp Pulse Resp B/P Pulse Ox O2 Delivery O2 Flow Rate FiO2 11/23/16 08:31 97.4 69 19 124/71 98 11/23/16 04:36 98.0 82 18 134/73 100 11/23/16 01:30 97.7 91 18 116/65 93 11/22/16 20:29 97.9 98 18 125/72 99 11/22/16 20:12 98 T-piece 28 11/22/16 16:00 98.9 92 16 118/72 96 I/O 11/22/16 11/22/16 11/22/16 11/23/16 11/23/16 11/23/16 07:00 15:00 23:00 07:00 15:00 23:00 Output Total 900 ml Balance -900 ml Output Urine Total 900 ml Bladder Scan Volume Amount 999 ml # Voids 1 1 3 # Bowel Movements 0 Result Diagram: 11/20/16 0725 11/20/16 0725 Objective Remarks GENERAL: WBWN male, On Trach SKIN: Warm and dry. HEAD: Normocephalic. EYES: No scleral icterus. No injection or drainage. NECK: Supple, trachea midline. No JVD or lymphadenopathy. trach in place CARDIOVASCULAR: Regular rate and rhythm without murmurs, gallops, or rubs. RESPIRATORY: Breath sounds equal bilaterally. No accessory muscle use. GASTROINTESTINAL: Abdomen soft, non-tender, nondistended. PEG in place MUSCULOSKELETAL: No cyanosis, or edema. BACK: Nontender without obvious deformity. No CVA tenderness. A/P Assessment and Plan RF. s/p Trach s/P Ventriculostomy PEG placement PLAN: Aerosol nebs SQ Lovenox TF @ 65cc/HR Trach suction prn Titerate 02 to keep sat >90% Murphy Cm MD Nov 23, 2016 11:17
--- NOTE | 2016-11-23 12:29 | HHI.PR ---
Subjective Remarks The patient appeared comfortable. He was about to be changed. No acute concerns. Objective Vitals Vital Signs Date Time Temp Pulse Resp B/P Pulse Ox O2 Delivery O2 Flow Rate FiO2 11/23/16 08:31 97.4 69 19 124/71 98 11/23/16 04:36 98.0 82 18 134/73 100 11/23/16 01:30 97.7 91 18 116/65 93 11/22/16 20:29 97.9 98 18 125/72 99 11/22/16 20:12 98 T-piece 28 11/22/16 16:00 98.9 92 16 118/72 96 I/O 11/22/16 11/22/16 11/22/16 11/23/16 11/23/16 11/23/16 07:00 15:00 23:00 07:00 15:00 23:00 Output Total 900 ml Balance -900 ml Output Urine Total 900 ml Bladder Scan Volume Amount 999 ml # Voids 1 1 3 # Bowel Movements 0 Result Diagram: 11/20/16 0725 11/20/16 0725 Imaging Last Impressions Chest X-Ray 11/09/16 0000 Signed Impressions: Service Date/Time: Wednesday, November 09, 2016 17:22 - CONCLUSION: Right basilar patchiness consistent with probable pneumonia. Clinical correlation is recommended. Jose James MD Lower Extremity Ultrasound 10/27/16 0000 Signed Impressions: Service Date/Time: Thursday, October 27, 2016 10:13 - CONCLUSION: No DVT either lower extremity. 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 MD Head CT 10/23/16 0000 Signed Impressions: Service Date/Time: Sunday, October 23, 2016 11:21 - CONCLUSION: 1. Examination quality is degraded by motion artifact. There is decreased midline shift, currently measuring 3 mm compared to 6 mm on the prior study. 2. There are persistent hemorrhagic contusions in the right frontal lobe but they are less well-visualized today either related to interval improvement or related to motion artifact. Red Arenas MD Chest CT 10/23/16 0000 Signed Impressions: Service Date/Time: Sunday, October 23, 2016 11:24 - CONCLUSION: 1. Airspace consolidation within the left upper lobe. This could represent an infectious process. 2. Small bilateral pleural effusions with associated compressive atelectasis in the lower lobes. Red Arneas MD Abdomen/Pelvis CT 10/23/16 0000 Signed Impressions: Service Date/Time: Sunday, October 23, 2016 11:27 - CONCLUSION: 1. No acute finding is identified within the abdomen or pelvis. 2. Anasarca. 3. Stable 7 mm nodule on the left adrenal gland. Small size favors a benign process but is incompletely characterized on this examination. Red Arenas MD Neck CTA 10/12/16 0000 Signed Impressions: Service Date/Time: Wednesday, October 12, 2016 09:27 - CONCLUSION: Mild atherosclerotic changes in the proximal portions of both internal carotid arteries but no significant stenosis. Dez Petersen MD Head CTA 10/12/16 0000 Signed Impressions: Service Date/Time: Wednesday, October 12, 2016 09:27 - CONCLUSION: No evidence of acute vascular injury Red Hoffman MD Pelvis X-Ray 10/11/16 1213 Signed Impressions: Service Date/Time: Tuesday, October 11, 2016 12:02 - CONCLUSION: Satisfactory trauma pelvis appearance. Red Hoffman MD Cervical Spine CT 10/11/16 1213 Signed Impressions: Service Date/Time: Tuesday, October 11, 2016 12:19 - CONCLUSION: Occipital skull fracture. No evidence of acute traumatic injury in the cervical spine Red Hoffman MD Objective Remarks GENERAL: Well-developed well-nourished. In no acute distress. SKIN: Warm and dry. Maculopapular rash of the upper extremities, worse at the right wrist/forearm. HEENT: Previous right temporal bone flap. Pupils equal and round. Mucous membranes pink and moist. Tracheostomy in place. CARDIOVASCULAR: Regular rate and rhythm. No murmur appreciated. RESPIRATORY: No accessory muscle use. Clear to auscultation. Breath sounds equal bilaterally. GASTROINTESTINAL: Abdomen soft, non-tender, nondistended. Bowel sounds x4. MUSCULOSKELETAL: No obvious deformities. No clubbing or cyanosis. No edema. NEUROLOGICAL: Awake and alert. Responds slowly to voice. Moves upper and lower extremities spontaneously. Strength better in the upper extremities. Stronger on the right side. Attempts to mouths words, mostly nonverbal. PSYCH: Flattened affect. Procedures 10/27/2016 Blue rhino tracheostomy 10/18/2016 Left frontal bur hole with placement of an intracranial pressure Right frontotemporoparietal decompressive craniectomy with evacuation of subdural hematoma 10/13/2016 Right frontal Anita hole with placement of a ventriculostomy catheter Medications and IVs Current Medications Medications (Trade) Dose Ordered Sig/Jony Route Start Time Stop Time Status Last Admin Miscellaneous Information 1 Q361D XX 10/11/16 13:00 10/11/16 13:00 (Chlorhexidine 2% Cloth) 3 pack Taper DAILY@04 TOP 10/12/16 04:00 10/08/17 03:59 11/15/16 04:00 (Chlorhexidine 2% Cloth) 3 pack UNSCH PRN TOP 10/11/16 13:00 (Peridex 0.12% Liq) 15 ml BID@08,20 MT 10/12/16 08:00 11/22/16 22:04 (Tylenol Supp) 650 mg Q4H PRN ME 10/15/16 12:15 Info 1 UNSCH XX 10/17/16 11:00 (NS Flush) 2 ml UNSCH PRN IVF 10/18/16 11:45 11/21/16 00:36 (NS Flush) 2 ml BID IVF 10/18/16 21:00 11/22/16 22:04 (Colace) 100 mg BID PO 10/18/16 21:00 11/22/16 22:01 (Protonix Inj) 40 mg DAILY IVP 10/19/16 09:00 11/22/16 10:06 (Zofran Inj) 4 mg Q6H PRN IV 10/18/16 11:45 (Tylenol) 650 mg Q4H PRN PO 10/18/16 11:45 11/07/16 18:32 (Inderal) 20 mg Q6HR PO 10/22/16 18:00 11/23/16 05:05 (Catapres) 0.3 mg Q8HR PO 10/22/16 16:42 11/23/16 05:05 (Folate) 1 mg DAILY PO 10/25/16 09:00 11/22/16 10:05 (Theragran) 1 tab DAILY PO 10/25/16 09:00 11/22/16 10:05 (Roxicodone Intensol Liq) 5 mg Q4H PRN PO 10/24/16 12:30 11/22/16 05:00 (Roxicodone Intensol Liq) 10 mg Q4H PRN PO 10/24/16 12:30 11/21/16 03:56 (Lasix Inj) 40 mg DAILY IV PUSH 10/26/16 09:00 11/22/16 09:00 (K-Lyte Cl Eff) 25 meq DAILY TUBE 10/26/16 09:00 11/22/16 10:05 (Keppra Liq) 1,500 mg Q12HR TUBE 10/27/16 21:00 11/22/16 22:03 (Lovenox Inj) 40 mg Q24H SQ 11/03/16 12:00 11/22/16 10:21 (Milk Of Magnesia Liq) 30 ml DAILY PRN PO 11/10/16 09:00 11/22/16 05:00 (Vitamin B1) 100 mg DAILY PO 11/11/16 09:00 11/22/16 10:05 (Norvasc) 5 mg DAILY PO 11/10/16 11:30 11/21/16 08:16 Lactobacillus Acidophilus 1 tab 1 tab DAILY PEG 11/11/16 09:00 11/22/16 10:05 (Depacon Inj/D5W 100 ml Inj) 110 ml @ 105 mls/hr Q12H IV 11/10/16 23:00 11/22/16 22:04 (Vasotec Inj) 1.25 mg Q8H PRN IV PUSH 11/11/16 13:00 (Hydrocortisone 1% Cream) 1 applic Q8HR TOPICAL 11/18/16 14:15 11/23/16 05:05 (Benadryl Inj) 25 mg Q12HR PRN IM 11/18/16 14:15 11/21/16 22:22 (Levsin Liq) 0.125 mg Q4H PRN PEG 11/20/16 14:00 11/22/16 05:00 A/P Problem List: (1) Encephalopathy ICD Code: G93.40 Status: Acute (2) Pneumonia ICD Code: J18.9 Status: Acute (3) SAH (subarachnoid hemorrhage) ICD Code: I60.9 Status: Acute (4) Major neurocognitive disorder as late effect of traumatic brain injury with behavioral disturbance ICD Code: S06.9X9S Status: Acute (5) Traumatic brain injury ICD Code: S06.9X9A Status: Chronic (6) Subdural hemorrhage following injury ICD Code: S06.5X9A Status: Acute (7) Fracture of occipital bone of skull with loss of consciousness ICD Code: S02.119A Status: Acute (8) Hepatitis C antibody positive in blood ICD Code: R76.8 Status: Acute (9) Rash ICD Code: R21 Status: Acute Assessment and Plan 56-year-old male who came to the hospital on 10/11/16 as a trauma patient. As per report, patient was on a ladder and fell approximately 10 feet. Bystander on the scene perform CPR for approximately 2 minutes stating the patient was blue. On EMS arrival patient is reported to have a GCS of 6, which improved at the time of ED arrival to GCS of 11. Imaging studies showed occipital fracture subdural and subarachnoid hemorrhage. The patient developed worsening agitation he was intubated and placed on mechanical ventilation. Repeat CT in 24 hours showed worsening of bilateral subdural subarachnoid hemorrhage with right temporal parietal subdural hemorrhage with 9 mL leftward midline shift. S /P Craniotomy and drain. Pt. now on tracheostomy and PEG tube placed. Care transferred to hospitalist service. Trauma, status post fall from a ladder Skull fracture, occipital Subarachnoid hemorrhage Subdural hemorrhage Status post craniotomy Encephalopathy - Rehabilitation medicine following. - Continue Keppra, valproic acid. - Seizure precaution - Continue physical therapy & occupational therapy for deconditioning. Continue speech therapy. Tracheostomy Pneumonia, HCAP vs. Aspiration pneumonia, possibly S. Aureus/ Anaerobes - Continued leukocytosis, trended down - Reviewed chest xray repeat 11/10/16- Right basilar patchiness consistent with probable pneumonia. Likely aspiration pneumonia. - 11/04/16 Chest x-ray showed patchy right lung base opacity nonspecific. repeat chest x-ray showed no significant changes occurred. - Continue pulmonary toileting. - Neb treatments - Pulmonology following input appreciated. - Plan to wean off tracheostomy. Currently on trach collar FiO2 28%. Still with secretions. - Suction when necessary. Oral and trach care. - Aspiration precaution. - Received Levaquin and Flagyl IV, discontinued on 11/14/2016. - Add Levsin for secretions - Restraints if needed to protect tracheostomy if agitated HTN - Continue Lasix 40 mg daily, propranolol 20 mg every 6 hours, clonidine 0.3 every 8 hours, labetalol prn. - Vasotec PRN. Continue Amlodipine 5mg Qday. PEG in place - Continue tube feedings as ordered ([facility]). - Monitor for aspiration risk Diarrhea - On the maylin shield - Hold off bowel regimen. - C. difficile negative Hepatitis C - Positive hep C serology - GI follow up as an outpatient. Urinary tract infection - UA positive - Culture showed Rossy albicans less than 10,000 - Switched to condom catheter. Continue betty-care. EtOH, abuse - Folic acid, thiamine DVT prop Lovenox Alternative Code:Intubation Discharge Planning Continue PT/OT/ST. SSI pending. Difficult placement. Problem Qualifiers (1) Traumatic brain injury: (2) Subdural hemorrhage following injury: Qualified Code: S06.5X1A - Traumatic subdural hemorrhage with loss of consciousness of 30 minutes or less, initial encounter (3) Fracture of occipital bone of skull with loss of consciousness: Qualified Code: S02.119A - Fracture of occipital bone of skull with loss of consciousness, closed, initial encounter Patricio Frankel DO Nov 23, 2016 12:29
[2016-11-23] MEDS: ENOXAPARIN SODIUM 40 MG/0.4 ML SYRINGE SQ SCH (13:38)
[2016-11-24] VITALS (9 sets, daily range): BP systolic 100–130; BP diastolic 60–76; PULSE 68–84; RESP 18–19; TEMP 96–97.6; O2SAT 96–100
[2016-11-24] MEDS: cloNIDine HCL 0.3 MG TAB PO SCH ×3 (05:01→21:52)
[2016-11-24] MEDS: PROPRANOLOL HCL 20 MG TAB PO SCH ×3 (05:01→18:33)
[2016-11-24] MEDS: HYDROCORTISONE 1% CREAM 30 GM TOPICAL SCH ×3 (05:05→21:53)
[2016-11-24] MEDS: levETIRAcetam 500 MG/5 ML UDC TUBE SCH ×2 (09:36→21:53)
[2016-11-24] MEDS: amLODIPine BESYLATE 5 MG TAB PO SCH (09:36)
[2016-11-24] MEDS: MULTIVITAMIN TAB PO SCH (09:36)
[2016-11-24] MEDS: POTASSIUM CHLORIDE 25 MEQ EFFERVESCENT TAB TUBE SCH (09:36)
[2016-11-24] MEDS: LACTOBACILLUS ACIDOPHILUS TAB PEG SCH (09:37)
[2016-11-24] MEDS: DOCUSATE SODIUM 100 MG CAP PO SCH ×2 (09:37→21:52)
[2016-11-24] MEDS: THIAMINE HCL 100 MG TAB PO SCH (09:37)
[2016-11-24] MEDS: FOLIC ACID 1 MG TAB PO SCH (09:37)
[2016-11-24] MEDS: FUROSEMIDE 40 MG/4 ML VIAL IV PUSH SCH (09:38)
[2016-11-24] MEDS: PANTOPRAZOLE SODIUM 40 MG VIAL IVP SCH (09:38)
[2016-11-24] MEDS: SODIUM CHLORIDE 0.9% FLUSH 5 ML FLUSH IVF SCH ×2 (09:39→21:55)
[2016-11-24] MEDS: WATER IV SCH ×4 (10:01→21:52)
[2016-11-24] MEDS: VALPROATE IV SCH ×4 (10:01→21:52)
[2016-11-24] MEDS: DEXTROSE 5% IV SCH ×4 (10:01→21:52)
[2016-11-24] MEDS: ENOXAPARIN SODIUM 40 MG/0.4 ML SYRINGE SQ SCH (11:45)
[2016-11-24] MEDS: oxyCODONE HCL ORAL CONC 20 MG/ML SYRINGE PO PRN (11:46)
[2016-11-24] MEDS: HYOSCYAMINE SOLN 0.125 MG/ML 15 ML BTL PEG PRN (12:21)
--- NOTE | 2016-11-24 12:25 | HHI.PR ---
Subjective Remarks Follow-up for TBI. Discussed with RN. Patient just received pain medication. Has been receiving Levsin and suction for secretions. He communicates with labored with his family. He is reportedly hard of hearing. Still requiring mittens to prevent pulling at tubes and lines. Objective Vitals Vital Signs Date Time Temp Pulse Resp B/P Pulse Ox O2 Delivery O2 Flow Rate FiO2 11/24/16 12:13 96.0 84 18 130/72 96 11/24/16 09:50 100 Trach Collar 6.00 11/24/16 09:22 98 21 11/24/16 08:36 96.0 68 19 121/70 100 11/24/16 04:06 97.6 78 18 110/73 98 11/24/16 00:00 97.5 78 18 105/76 97 11/23/16 20:20 Trach Collar 6.00 28 11/23/16 20:00 97.6 80 18 125/69 98 11/23/16 18:24 T-piece 6.00 28 11/23/16 16:19 98.3 82 19 108/77 98 11/23/16 13:04 98.2 82 19 137/81 97 I/O 11/23/16 11/23/16 11/23/16 11/24/16 11/24/16 11/24/16 07:00 15:00 23:00 07:00 15:00 23:00 # Voids 3 2 3 3 # Bowel Movements 0 1 Result Diagram: 11/20/16 0725 11/20/16 0725 Objective Remarks GENERAL: Well-developed well-nourished. In no acute distress. Hands in mittens. SKIN: Warm and dry. Maculopapular rash of the upper extremity. HEENT: Previous right temporal bone flap. Pupils equal and round. Mucous membranes pink and moist. Tracheostomy in place. CARDIOVASCULAR: Regular rate and rhythm. No murmur appreciated. RESPIRATORY: No accessory muscle use. Clear to auscultation. Breath sounds equal bilaterally. GASTROINTESTINAL: Abdomen soft, non-tender, nondistended. Bowel sounds x4. MUSCULOSKELETAL: No obvious deformities. No clubbing or cyanosis. No edema. NEUROLOGICAL: Awake and slight touch. Alert. Responds slowly to voice. Difficulty with commands, unclear if secondary to hearing. Moves upper and lower extremities spontaneously. Strength better in the upper extremities. Stronger on the right side. Attempts to mouth words, mostly nonverbal. Procedures 10/27/2016 Blue rhino tracheostomy 10/18/2016 Left frontal bur hole with placement of an intracranial pressure Right frontotemporoparietal decompressive craniectomy with evacuation of subdural hematoma 10/13/2016 Right frontal [place] hole with placement of a ventriculostomy catheter A/P Problem List: (1) Encephalopathy ICD Code: G93.40 Status: Acute (2) Pneumonia ICD Code: J18.9 Status: Acute (3) SAH (subarachnoid hemorrhage) ICD Code: I60.9 Status: Acute (4) Major neurocognitive disorder as late effect of traumatic brain injury with behavioral disturbance ICD Code: S06.9X9S Status: Acute (5) Traumatic brain injury ICD Code: S06.9X9A Status: Chronic (6) Subdural hemorrhage following injury ICD Code: S06.5X9A Status: Acute (7) Fracture of occipital bone of skull with loss of consciousness ICD Code: S02.119A Status: Acute (8) Hepatitis C antibody positive in blood ICD Code: R76.8 Status: Acute (9) Rash ICD Code: R21 Status: Acute Assessment and Plan Patient is a 56-year-old male who came to the hospital on 10/11/16 as a trauma patient. As per report, patient was on a ladder and fell approximately 10 feet. Bystander on the scene perform CPR for approximately 2 minutes stating the patient was blue. On EMS arrival patient is reported to have a GCS of 6, which improved at the time of ED arrival to GCS of 11. Imaging studies showed occipital fracture subdural and subarachnoid hemorrhage. The patient developed worsening agitation he was intubated and placed on mechanical ventilation. Repeat CT in 24 hours showed worsening of bilateral subdural subarachnoid hemorrhage with right temporal parietal subdural hemorrhage with 9 mL leftward midline shift. S/P Craniotomy and drain. Pt. now on tracheostomy and PEG tube placed. Care transferred to hospitalist service. Trauma, status post fall from a ladder Skull fracture, occipital Subarachnoid hemorrhage Subdural hemorrhage Status post craniotomy Encephalopathy - Rehabilitation medicine following. - Continue Keppra, valproic acid. - Seizure precaution - Continue physical therapy occupational therapy for deconditioning Tracheostomy Pneumonia, HCAP vs. Aspiration pneumonia, possibly S. Aureus/ Anaerobes - Continued leukocytosis, trended down - Reviewed chest xray repeat 11/10/16- Right basilar patchiness consistent with probable pneumonia. Likely aspiration pneumonia. - 11/04/16 Chest x-ray showed patchy right lung base opacity nonspecific. repeat chest x-ray showed no significant changes occurred. - Continue pulmonary toileting. - Neb treatments - Pulmonology following input appreciated. - Plan to wean off tracheostomy. Currently on trach collar FiO2 28% - Suction when necessary. Oral and trach care. - Aspiration precaution. - Received Levaquin and Flagyl IV, discontinued on 11/14/2016. - Added Levsin for secretions - Restraints if needed to protect tracheostomy if agitated HTN - Continue medication Lasix 40 mg daily, propranolol 20 mg every 6 hours, clonidine 0.3 every 8 hours, labetalol when necessary. - Vasotec PRN. Continue Amlodipine 5mg Qday. PEG in place - Continue tube feedings as ordered, Jevity - Monitor for aspiration risk Diarrhea - On the maylin shield - Hold off bowel regimen. - C. difficile negative Hepatitis C - Positive hep C serology - GI follow up as an outpatient. Urinary tract infection - UA positive - Culture showed Rossy albicans less than 10,000 - Switched to condom catheter. Continue betty-care. EtOH, abuse - Folic acid, thiamine DVT prop Lovenox Alternative Code:Intubation Discharge Planning Continue PT/OT/ST. SSI pending. Difficult placement. Problem Qualifiers (1) Traumatic brain injury: (2) Subdural hemorrhage following injury: Qualified Code: S06.5X1A - Traumatic subdural hemorrhage with loss of consciousness of 30 minutes or less, initial encounter (3) Fracture of occipital bone of skull with loss of consciousness: Qualified Code: S02.119A - Fracture of occipital bone of skull with loss of consciousness, closed, initial encounter Montrell Springer Nov 24, 2016 12:25 Ayse Garza DO Nov 24, 2016 23:01
--- NOTE | 2016-11-24 20:34 | HHI.PR ---
Subjective Remarks 56 YOWM with Fall,ICH,ventriculostomy RF, has trach. Alert, awake, looks around No fever Tolerates TF at goal rate 65 cc /HR Lot of thin frothy trach secretions. follows commands Objective Vital Signs Vital Signs Date Time Temp Pulse Resp B/P Pulse Ox O2 Delivery O2 Flow Rate FiO2 11/24/16 17:54 70 113/65 11/24/16 15:57 97.1 74 19 100/60 97 11/24/16 12:13 96.0 84 18 130/72 96 11/24/16 09:50 100 Trach Collar 6.00 11/24/16 09:22 98 21 11/24/16 08:36 96.0 68 19 121/70 100 11/24/16 04:06 97.6 78 18 110/73 98 11/24/16 00:00 97.5 78 18 105/76 97 I/O 11/23/16 11/23/16 11/23/16 11/24/16 11/24/16 11/24/16 07:00 15:00 23:00 07:00 15:00 23:00 Intake Total 684 ml Balance 684 ml IV Total 100 ml Tube Feeding 584 ml # Voids 3 2 3 3 # Bowel Movements 0 1 Result Diagram: 11/20/1672411/20/16724 Objective Remarks GENERAL: WBWN male, On Trach SKIN: Warm and dry. HEAD: Normocephalic. EYES: No scleral icterus. No injection or drainage. NECK: Supple, trachea midline. No JVD or lymphadenopathy. trach in place CARDIOVASCULAR: Regular rate and rhythm without murmurs, gallops, or rubs. RESPIRATORY: Breath sounds equal bilaterally. No accessory muscle use. GASTROINTESTINAL: Abdomen soft, non-tender, nondistended. PEG in place MUSCULOSKELETAL: No cyanosis, or edema. BACK: Nontender without obvious deformity. No CVA tenderness. A/P Assessment and Plan RF. s/p Trach s/P Ventriculostomy PEG placement PLAN: Aerosol nebs SQ Lovenox TF @ 65cc/HR Trach suction prn Titerate 02 to keep sat >90% Murphy Cm MD Nov 24, 2016 20:34
[2016-11-25] VITALS (8 sets, daily range): BP systolic 105–129; BP diastolic 61–83; PULSE 77–87; RESP 18–20; TEMP 96.1–97.2; O2SAT 95–99
[2016-11-25] MEDS: PROPRANOLOL HCL 20 MG TAB PO SCH ×4 (00:13→17:43)
[2016-11-25] MEDS: cloNIDine HCL 0.3 MG TAB PO SCH ×3 (06:00→22:00)
[2016-11-25] MEDS: HYDROCORTISONE 1% CREAM 30 GM TOPICAL SCH ×2 (06:02→14:34)
--- NOTE | 2016-11-25 07:52 | HHI.PR ---
Subjective Remarks Follow-up for TBI. Discussed with RN, no acute events overnight. Patient still requiring mittens as he has been more awake and alert, and pulling at tubes and trach. The patient is sleeping upon arrival, awakens to touch. Objective Vitals Vital Signs Date Time Temp Pulse Resp B/P Pulse Ox O2 Delivery O2 Flow Rate FiO2 11/25/16 07:43 97.1 83 18 112/83 97 11/25/16 04:00 96.7 87 18 114/70 99 11/25/16 00:00 96.9 77 18 107/64 95 11/24/16 21:17 97 T-piece 28 11/24/16 20:45 Trach Collar 6.00 28 11/24/16 20:00 97.4 83 19 116/70 96 11/24/16 17:54 70 113/65 11/24/16 15:57 97.1 74 19 100/60 97 11/24/16 12:13 96.0 84 18 130/72 96 11/24/16 09:50 100 Trach Collar 6.00 11/24/16 09:22 98 21 11/24/16 08:36 96.0 68 19 121/70 100 I/O 11/24/16 11/24/16 11/24/16 11/25/16 11/25/16 11/25/16 07:00 15:00 23:00 07:00 15:00 23:00 Intake Total 684 ml 0 ml 0 ml Balance 684 ml 0 ml 0 ml Intake Oral 0 ml 0 ml IV Total 100 ml Tube Feeding 584 ml # Voids 3 1 1 # Bowel Movements 0 0 Objective Remarks GENERAL: Well-developed well-nourished. In no acute distress. Hands in mittens. SKIN: Warm and dry. Maculopapular rash of the upper extremity, improving. HEENT: Previous right temporal bone flap. Pupils equal and round. Mucous membranes pink and moist. Tracheostomy in place. CARDIOVASCULAR: Regular rate and rhythm. No murmur appreciated. RESPIRATORY: No accessory muscle use. Clear to auscultation. Breath sounds equal bilaterally. GASTROINTESTINAL: Abdomen soft, non-tender, nondistended. Bowel sounds x4. PEG tube in place. MUSCULOSKELETAL: No obvious deformities. No clubbing or cyanosis. No edema. NEUROLOGICAL: Awakens to light touch. Alert. Responds slowly to voice. Difficulty with commands, unclear if secondary to hearing. Moves upper and lower extremities spontaneously. Strength better in the upper extremities. Stronger on the right side. Attempts to mouth words, but essentially nonverbal. Procedures 10/27/2016 Blue rhino tracheostomy 10/18/2016 Left frontal bur hole with placement of an intracranial pressure Right frontotemporoparietal decompressive craniectomy with evacuation of subdural hematoma 10/13/2016 Right frontal [place] hole with placement of a ventriculostomy catheter A/P Problem List: (1) Encephalopathy ICD Code: G93.40 Status: Acute (2) Pneumonia ICD Code: J18.9 Status: Acute (3) SAH (subarachnoid hemorrhage) ICD Code: I60.9 Status: Acute (4) Major neurocognitive disorder as late effect of traumatic brain injury with behavioral disturbance ICD Code: S06.9X9S Status: Acute (5) Traumatic brain injury ICD Code: S06.9X9A Status: Chronic (6) Subdural hemorrhage following injury ICD Code: S06.5X9A Status: Acute (7) Fracture of occipital bone of skull with loss of consciousness ICD Code: S02.119A Status: Acute (8) Hepatitis C antibody positive in blood ICD Code: R76.8 Status: Acute (9) Rash ICD Code: R21 Status: Acute Assessment and Plan Patient is a 56-year-old male who came to the hospital on 10/11/16 as a trauma patient. As per report, patient was on a ladder and fell approximately 10 feet. Bystander on the scene perform CPR for approximately 2 minutes stating the patient was blue. On EMS arrival patient is reported to have a GCS of 6, which improved at the time of ED arrival to GCS of 11. Imaging studies showed occipital fracture subdural and subarachnoid hemorrhage. The patient developed worsening agitation he was intubated and placed on mechanical ventilation. Repeat CT in 24 hours showed worsening of bilateral subdural subarachnoid hemorrhage with right temporal parietal subdural hemorrhage with 9 mL leftward midline shift. S/P Craniotomy and drain. Pt. now on tracheostomy and PEG tube placed. Care transferred to hospitalist service. Trauma, status post fall from a ladder Skull fracture, occipital Subarachnoid hemorrhage Subdural hemorrhage Status post craniotomy Encephalopathy - Rehabilitation medicine following. - Continue Keppra, valproic acid. - Seizure precaution - Continue physical therapy occupational therapy for deconditioning Tracheostomy Pneumonia, HCAP vs. Aspiration pneumonia, possibly S. Aureus/ Anaerobes - Continued leukocytosis, trended down - Reviewed chest xray repeat 11/10/16- Right basilar patchiness consistent with probable pneumonia. Likely aspiration pneumonia. - 11/04/16 Chest x-ray showed patchy right lung base opacity nonspecific. repeat chest x-ray showed no significant changes occurred. - Continue pulmonary toileting. - Neb treatments - Pulmonology following input appreciated. - Plan to wean off tracheostomy. Currently on trach collar FiO2 28% - Suction when necessary. Oral and trach care. - Aspiration precaution. - Received Levaquin and Flagyl IV, discontinued on 11/14/2016. - Added Levsin for secretions - Restraints if needed to protect tracheostomy if agitated HTN - Continue medication Lasix 40 mg daily, propranolol 20 mg every 6 hours, clonidine 0.3 every 8 hours, labetalol when necessary. - Vasotec PRN. Continue Amlodipine 5mg Qday. PEG in place - Continue tube feedings as ordered, Jevity - Monitor for aspiration risk Diarrhea - On the maylin shield - Hold off bowel regimen. - C. difficile negative Hepatitis C - Positive hep C serology - GI follow up as an outpatient. Urinary tract infection - UA positive - Culture showed Rossy albicans less than 10,000 - Switched to condom catheter. Continue betty-care. EtOH, abuse - Folic acid, thiamine 11/25/16 no change in management DVT prop Lovenox Alternative Code:Intubation Discharge Planning Continue PT/OT/ST. SSI pending. Difficult placement. Problem Qualifiers (1) Traumatic brain injury: (2) Subdural hemorrhage following injury: Qualified Code: S06.5X1A - Traumatic subdural hemorrhage with loss of consciousness of 30 minutes or less, initial encounter (3) Fracture of occipital bone of skull with loss of consciousness: Qualified Code: S02.119A - Fracture of occipital bone of skull with loss of consciousness, closed, initial encounter Montrell Springer Nov 25, 2016 07:52 Ayse Garza DO Nov 26, 2016 00:23
[2016-11-25] MEDS: SODIUM CHLORIDE 0.9% FLUSH 5 ML FLUSH IVF SCH ×2 (09:00→21:00)
[2016-11-25] MEDS: LACTOBACILLUS ACIDOPHILUS TAB PEG SCH (10:03)
[2016-11-25] MEDS: amLODIPine BESYLATE 5 MG TAB PO SCH (10:04)
[2016-11-25] MEDS: THIAMINE HCL 100 MG TAB PO SCH (10:04)
[2016-11-25] MEDS: MULTIVITAMIN TAB PO SCH (10:05)
[2016-11-25] MEDS: DOCUSATE SODIUM 100 MG CAP PO SCH (10:07)
[2016-11-25] MEDS: FOLIC ACID 1 MG TAB PO SCH (10:07)
[2016-11-25] MEDS: levETIRAcetam 500 MG/5 ML UDC TUBE SCH ×2 (10:08→21:00)
[2016-11-25] MEDS: POTASSIUM CHLORIDE 25 MEQ EFFERVESCENT TAB TUBE SCH (10:08)
[2016-11-25] MEDS: FUROSEMIDE 40 MG/4 ML VIAL IV PUSH SCH (10:11)
[2016-11-25] MEDS: PANTOPRAZOLE SODIUM 40 MG VIAL IVP SCH (10:12)
[2016-11-25] MEDS: DEXTROSE 5% IV SCH ×2 (12:40)
[2016-11-25] MEDS: WATER IV SCH ×2 (12:40)
[2016-11-25] MEDS: ENOXAPARIN SODIUM 40 MG/0.4 ML SYRINGE SQ SCH (12:40)
[2016-11-25] MEDS: VALPROATE IV SCH ×2 (12:40)
--- NOTE | 2016-11-25 15:32 | HHI.PR ---
Neuropsych Progress Notes/Response to Tx Premorbid psychological status Premorbid Cognitive, Emotional and Behavioral Status: Deferred. 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 The patient has no known psychiatric difficulties. However, substance abuse history is significant for alcohol dependence and tobacco dependence. Behavioral Reactions of Patient and Family/Support System: Tenuous. The patients family has a limited understanding of the complexities of this patient 's brain injury, and the lifestyle barriers that prevent an optimal recovery. They are expected to have ongoing issues of adjustment given the nature of the injury, and this aspect of recovery will require ongoing monitoring. Emotional/Behavioral Status of Patient and Family/Support System: Tenuous. Pertinent issues, if appropriate to this patients clinical care, are described in detail above. Maximizing acute care outcome It is recommended that the patient be monitored for emergent behavioral impulsivity as the medical condition evolves. This patients neuropathological challenges may limit their rehabilitation potential going forward, and these challenges will require specialized therapeutic skills to maximize outcome. Additionally, the patients family is experiencing ongoing issues of adjustment given the traumatic nature of the injury, and they [will need / may benefit] from ongoing psychological assistance. Anticipated Problems Ongoing areas of concern could include behavioral impulsivity, lack of insight and judgment, which is expected to improve with time and treatment, provided he moves past this stage of recovery. Presently, the patient is not following commands. His long duration alcohol dependence and tobacco dependence, which has led to global cerebral atrophy, will serve as a double barrier to his recovery from this injury. Treatment Plan This clinician will continue to follow with you throughout the course of this patients rehabilitation treatment, and I will be available to meet with the patients family/support system to facilitate their understanding and the ongoing care of their family member. The goals of neuropsychological intervention shall be both educational and supportive to the family/support system as is deemed clinically appropriate. Diagnosis: (1) Major neurocognitive disorder as late effect of traumatic brain injury with behavioral disturbance Status: Acute (2) Alcohol dependence Status: Resolved Discharge Summary Reason for Referral: The patient is a 56 year old unknown handed male status post traumatic brain injury secondary to a fall from a ladder on 10/11/2016. At the scene his GCS was 6, and on arrival improved to 11. Neuroimaging is notable for SDH and SAH, with bifrontal and bitemporal contusions and midline shift. His history is notable for both TOB and ETOH. He is referred for baseline neurobehavioral status exam per trauma protocol to assess cognitive, behavioral and emotional aspects of the injury. This patient has been followed throughout his tenure in the [facility] and onto the general medical floor. EEG's in October of 2016 were notable for severe encephalopathy with sharp activity of the right hemisphere consistent with occasional intermittent epileptiform discharges, and as such he was started on several antiepilepsy agents. Palliative care was consulted on October 25, 2016. He underwent tracheostomy and PEG placement, with minimal improvement until November 02 when he became awake, alert, tracking and attempting to communicate. At that time, he was considered a Rancho III. By day 31 post injury which was 11/11, he was noted to be awake and alert but not following commands, possibly due to baseline hearing impairment. He was taking Valproic Acid and Propranolol for behavior control, and by day 32, which was , he was judged to be at a Rancho level V. This neuropsychologist continued to follow this patient on the medical floor until day 45 post injury, which is , at which time the patient's neurobehavioral recovery appears stable at a Rancho level V. Diagnostic impressions at that time were that the patients cognitive and behavioral status met criteria for major neurocognitive disorder due to traumatic brain injury. Past Medical History: Please refer to the patient's history and physical regarding his past medical, surgical and psychiatric histories. 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 The patient is single. The patient lives in [place], [place]. Premorbid Cognitive, Emotional and Behavioral Status: Deferred. 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 The patient has no known psychiatric difficulties. However, substance abuse history is significant for alcohol dependence and tobacco dependence. Behavioral Reactions of Patient and Family/Support System: Tenuous. The patients family has a limited understanding of the complexities of this patient 's brain injury, and the lifestyle barriers that prevent an optimal recovery. They are expected to have ongoing issues of adjustment given the nature of the injury, and this aspect of recovery will require ongoing monitoring. Emotional/Behavioral Status of Patient and Family/Support System: Tenuous. Pertinent issues, if appropriate to this patients clinical care, are described in detail above.ove. Treatment Interventions: During the course of their acute care stay, this patient and their family/ support system were provided information concerning the neuropsychological aspects of the injury, education regarding course of recovery, and psychological support in the form of counseling with the person served and the family/support system as documented in the psychology service progress notes, as deemed clinically appropriate. Current, Cognitive, Emotional and Behavioral Status: Stable. This patient has experienced a severe injury, and will be adjusting to significant cognitive, emotional and behavioral challenges going forward. He has persistent neurocognitive impairments stemming from his traumatic brain injury, and he is awaiting LTAC placement. Impression at Discharge: The cognitive and behavioral status of this patient meets criteria for [facility]: Confused/ Non-Agitated - maximal assistance]. Major Neurocognitive Disorder due to Traumatic Brain Injury, with/without behavioral disturbance CODE: F02.8x (0 or 1) The above listed diagnoses are supported by the following clinical criteria: Major Neurocognitive Disorder: This person demonstrates a significant cognitive decline from a previous level of estimated baseline performance in one or more cognitive domains (complex attention, executive functioning, learning and memory, language, perceptual-motor, or social cognition) based on the patients /informants report, further documented by todays testing results , with these cognitive deficits interfering with the patients independence in everyday activities. Status of Family/Support System Adjustment: Tenuous. The patients family/ support system will experience ongoing issues of adjustment given the nature of the injury, and this aspect of the patients recovery will require ongoing monitoring. Post Acute Recommendations: It is recommended that the patient continue to be monitored for behavioral impulsivity as they continue to be early in their course of recovery. This patients neuropathological challenges may limit their reintegration into work and family life going forward, and these challenges may require specialized therapeutic skills to maximize outcome. Thank you for the opportunity to assist in this patients care. Kermit Hughes, Ph.D., ABPP Board Certified in Clinical Neuropsychology [place] [employer] Professional [employer] [place] Licensed Psychologist #[id number] Kermit Hughes PhD Nov 25, 2016 3:32 pm
--- NOTE | 2016-11-25 20:40 | HHI.PR ---
Subjective Remarks 56 YOWM with Fall,ICH,ventriculostomy RF, has trach. Alert, awake, looks around No fever Tolerates TF at goal rate 65 cc /HR follows commands Objective Vital Signs Vital Signs Date Time Temp Pulse Resp B/P Pulse Ox O2 Delivery O2 Flow Rate FiO2 11/25/16 17:32 99 T-piece 6.00 28 11/25/16 16:39 96.1 82 18 105/61 99 11/25/16 12:12 96.9 82 18 120/73 97 11/25/16 10:02 99 T-piece 28 11/25/16 07:43 97.1 83 18 112/83 97 11/25/16 04:00 96.7 87 18 114/70 99 11/25/16 00:00 96.9 77 18 107/64 95 11/24/16 21:17 97 T-piece 28 11/24/16 20:45 Trach Collar 6.00 28 I/O 11/24/16 11/24/16 11/24/16 11/25/16 11/25/16 11/25/16 07:00 15:00 23:00 07:00 15:00 23:00 Intake Total 684 ml 0 ml 0 ml Balance 684 ml 0 ml 0 ml Intake Oral 0 ml 0 ml IV Total 100 ml Tube Feeding 584 ml # Voids 3 1 1 4 # Bowel Movements 0 0 Objective Remarks GENERAL: WBWN male, On Trach SKIN: Warm and dry. HEAD: Normocephalic. EYES: No scleral icterus. No injection or drainage. NECK: Supple, trachea midline. No JVD or lymphadenopathy. trach in place CARDIOVASCULAR: Regular rate and rhythm without murmurs, gallops, or rubs. RESPIRATORY: Breath sounds equal bilaterally. No accessory muscle use. GASTROINTESTINAL: Abdomen soft, non-tender, nondistended. PEG in place MUSCULOSKELETAL: No cyanosis, or edema. BACK: Nontender without obvious deformity. No CVA tenderness. A/P Assessment and Plan RF. s/p Trach s/P Ventriculostomy PEG placement PLAN: Aerosol nebs SQ Lovenox TF @ 65cc/HR Trach suction prn Titerate 02 to keep sat >90% Stable PulMurphy Pham MD Nov 25, 2016 20:40
[2016-11-26] VITALS (7 sets, daily range): BP systolic 108–159; BP diastolic 64–83; PULSE 68–91; RESP 19–20; TEMP 95.6–97.5; O2SAT 96–100
[2016-11-26] MEDS: DOCUSATE SODIUM 100 MG CAP PO SCH ×3 (00:39→22:29)
[2016-11-26] MEDS: diphenhydrAMINE HCL 50 MG/ML VIAL IM PRN (00:40)
[2016-11-26] MEDS: oxyCODONE HCL ORAL CONC 20 MG/ML SYRINGE PO PRN (00:41)
[2016-11-26] MEDS: PROPRANOLOL HCL 20 MG TAB PO SCH ×4 (00:41→16:38)
[2016-11-26] MEDS: HYOSCYAMINE SOLN 0.125 MG/ML 15 ML BTL PEG PRN ×2 (00:45→06:01)
[2016-11-26] MEDS: HYDROCORTISONE 1% CREAM 30 GM TOPICAL SCH ×4 (00:45→22:30)
[2016-11-26] MEDS: WATER IV SCH ×6 (00:58→22:59)
[2016-11-26] MEDS: DEXTROSE 5% IV SCH ×6 (00:58→22:59)
[2016-11-26] MEDS: VALPROATE IV SCH ×6 (00:58→22:59)
[2016-11-26] MEDS: cloNIDine HCL 0.3 MG TAB PO SCH ×3 (06:00→22:29)
[2016-11-26] MEDS: amLODIPine BESYLATE 5 MG TAB PO SCH (09:00)
[2016-11-26] MEDS: SODIUM CHLORIDE 0.9% FLUSH 5 ML FLUSH IVF SCH ×2 (09:00→21:00)
[2016-11-26] MEDS: LACTOBACILLUS ACIDOPHILUS TAB PEG SCH (09:40)
[2016-11-26] MEDS: levETIRAcetam 500 MG/5 ML UDC TUBE SCH ×2 (09:41→22:29)
[2016-11-26] MEDS: PANTOPRAZOLE SODIUM 40 MG VIAL IVP SCH (09:42)
[2016-11-26] MEDS: FUROSEMIDE 40 MG/4 ML VIAL IV PUSH SCH (09:42)
[2016-11-26] MEDS: MULTIVITAMIN TAB PO SCH (09:43)
[2016-11-26] MEDS: THIAMINE HCL 100 MG TAB PO SCH (09:45)
[2016-11-26] MEDS: FOLIC ACID 1 MG TAB PO SCH (09:45)
[2016-11-26] MEDS: POTASSIUM CHLORIDE 25 MEQ EFFERVESCENT TAB TUBE SCH (09:46)
[2016-11-26] MEDS: ENOXAPARIN SODIUM 40 MG/0.4 ML SYRINGE SQ SCH (12:07)
--- NOTE | 2016-11-26 17:04 | HHI.PR ---
Subjective Remarks Follow-up for TBI. Patient continues to improve clinically. He is communicating with friends using a sliding board. No acute concerns. Patient' s friend demanded to know about plans from neurosurgery and pulmonology regarding bone flap and tracheostomy respectively. Objective Vitals Vital Signs Date Time Temp Pulse Resp B/P Pulse Ox O2 Delivery O2 Flow Rate FiO2 11/26/16 16:36 96.7 80 20 126/72 100 11/26/16 11:41 96.8 80 20 116/71 99 11/26/16 10:51 96 28 11/26/16 08:26 97.0 68 20 108/64 97 11/26/16 06:15 18 11/26/16 04:00 95.6 69 20 159/83 98 11/26/16 00:00 97.2 91 20 147/81 96 11/25/16 20:00 97.2 85 20 129/66 96 11/25/16 17:32 99 T-piece 6.00 28 I/O 11/25/16 11/25/16 11/25/16 11/26/16 11/26/16 11/26/16 07:00 15:00 23:00 07:00 15:00 23:00 Intake Total 0 ml 661 ml Balance 0 ml 661 ml Intake Oral 0 ml Tube Feeding 661 ml # Voids 1 4 1 2 3 1 # Bowel Movements 0 0 0 Imaging Last Impressions Chest X-Ray 11/09/16 0000 Signed Impressions: Service Date/Time: Wednesday, November 09, 2016 17:22 - CONCLUSION: Right basilar patchiness consistent with probable pneumonia. Clinical correlation is recommended. Jose James MD Lower Extremity Ultrasound 10/27/16 0000 Signed Impressions: Service Date/Time: Thursday, October 27, 2016 10:13 - CONCLUSION: No DVT either lower extremity. 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 MD Head CT 10/23/16 0000 Signed Impressions: Service Date/Time: Sunday, October 23, 2016 11:21 - CONCLUSION: 1. Examination quality is degraded by motion artifact. There is decreased midline shift, currently measuring 3 mm compared to 6 mm on the prior study. 2. There are persistent hemorrhagic contusions in the right frontal lobe but they are less well-visualized today either related to interval improvement or related to motion artifact. Red Arenas MD Chest CT 10/23/16 0000 Signed Impressions: Service Date/Time: Sunday, October 23, 2016 11:24 - CONCLUSION: 1. Airspace consolidation within the left upper lobe. This could represent an infectious process. 2. Small bilateral pleural effusions with associated compressive atelectasis in the lower lobes. Red Arenas MD Abdomen/Pelvis CT 10/23/16 0000 Signed Impressions: Service Date/Time: Sunday, October 23, 2016 11:27 - CONCLUSION: 1. No acute finding is identified within the abdomen or pelvis. 2. Anasarca. 3. Stable 7 mm nodule on the left adrenal gland. Small size favors a benign process but is incompletely characterized on this examination. Red Arenas MD Neck CTA 10/12/16 0000 Signed Impressions: Service Date/Time: Wednesday, October 12, 2016 09:27 - CONCLUSION: Mild atherosclerotic changes in the proximal portions of both internal carotid arteries but no significant stenosis. Dez Petersen MD Head CTA 10/12/16 0000 Signed Impressions: Service Date/Time: Wednesday, October 12, 2016 09:27 - CONCLUSION: No evidence of acute vascular injury Red Hoffman MD Pelvis X-Ray 10/11/16 1213 Signed Impressions: Service Date/Time: Tuesday, October 11, 2016 12:02 - CONCLUSION: Satisfactory trauma pelvis appearance. Red Hoffman MD Cervical Spine CT 10/11/16 1213 Signed Impressions: Service Date/Time: Tuesday, October 11, 2016 12:19 - CONCLUSION: Occipital skull fracture. No evidence of acute traumatic injury in the cervical spine Red Hoffman MD Objective Remarks GENERAL: Alert, NAD. Opens eyes, mouths words, nods, moves upper and lower ext. Better movement with upper ext. SKIN: Warm and dry. HEAD: Normocephalic. EYES: No scleral icterus. No injection or drainage. NECK: Supple, trachea midline. No JVD or lymphadenopathy. CARDIOVASCULAR: Regular rate and rhythm without murmurs, gallops, or rubs. RESPIRATORY: Coarse breath sounds with scattered rhonchi. GASTROINTESTINAL: Abdomen soft, non-tender, nondistended. MUSCULOSKELETAL: No cyanosis, or edema. BACK: Nontender without obvious deformity. No CVA tenderness. Procedures 10/27/2016 Blue rhino tracheostomy 10/18/2016 Left frontal bur hole with placement of an intracranial pressure Right frontotemporoparietal decompressive craniectomy with evacuation of subdural hematoma 10/13/2016 Right frontal [place] hole with placement of a ventriculostomy catheter A/P Problem List: (1) Encephalopathy ICD Code: G93.40 Status: Acute (2) Pneumonia ICD Code: J18.9 Status: Acute (3) SAH (subarachnoid hemorrhage) ICD Code: I60.9 Status: Acute (4) Major neurocognitive disorder as late effect of traumatic brain injury with behavioral disturbance ICD Code: S06.9X9S Status: Acute (5) Traumatic brain injury ICD Code: S06.9X9A Status: Chronic (6) Subdural hemorrhage following injury ICD Code: S06.5X9A Status: Acute (7) Fracture of occipital bone of skull with loss of consciousness ICD Code: S02.119A Status: Acute (8) Hepatitis C antibody positive in blood ICD Code: R76.8 Status: Acute (9) Rash ICD Code: R21 Status: Acute Assessment and Plan Patient is a 56-year-old male who came to the hospital on 10/11/16 as a trauma patient. As per report, patient was on a ladder and fell approximately 10 feet. Bystander on the scene perform CPR for approximately 2 minutes stating the patient was blue. On EMS arrival patient is reported to have a GCS of 6, which improved at the time of ED arrival to GCS of 11. Imaging studies showed occipital fracture subdural and subarachnoid hemorrhage. The patient developed worsening agitation he was intubated and placed on mechanical ventilation. Repeat CT in 24 hours showed worsening of bilateral subdural subarachnoid hemorrhage with right temporal parietal subdural hemorrhage with 9 mL leftward midline shift. S/P Craniotomy and drain. Pt. now on tracheostomy and PEG tube placed. Consulted for transfer of care. Trauma, status post fall from a ladder Skull fracture, occipital Subarachnoid hemorrhage Subdural hemorrhage Status post craniotomy Encephalopathy - Rehabilitation medicine following. - Continue Keppra, valproic acid. - Seizure precaution - Continue physical therapy occupational therapy for deconditioning - Contacted Neurosurgery POLITICAL WORKER regarding bone flap. Waiting to hear from neurosurgery. Tracheostomy Pneumonia, HCAP vs. Aspiration pneumonia, possibly S. Aureus/ Anaerobes - Leukocytosis continues WBC 13.0 --> 14.5 - Reviewed chest xray repeat 11/10/16- Right basilar patchiness consistent with probable pneumonia. Likely aspiration pneumonia. - 11/04/16 Chest x-ray showed patchy right lung base opacity nonspecific. repeat chest x-ray showed no significant changes occurred. - Continue pulmonary toileting. - Neb treatments - Pulmonology following input appreciated. - Plan to wean off tracheostomy. Currently on trach collar FiO2 28% - Suction when necessary. Oral and trach care. - Aspiration precaution. - Received Levaquin and Flagyl IV, discontinued on 11/14/2016. - Contacted quenching car operator regarding tach care and possibly using Passy joy. HTN - Continue medication Lasix 40 mg daily, propranolol 20 mg every 6 hours, clonidine 0.3 every 8 hours, labetalol when necessary. - Vasotec PRN. Continue Amlodipine 5mg Qday. PEG in place - Continue tube feedings as ordered Jevity - Monitor for aspiration risk Diarrhea - On the maylin shield - Hold off bowel regimen. - C. difficile negative Hepatitis C - Positive hep C serology - GI follow up as an outpatient. Urinary tract infection - UA positive - Culture showed Rossy albicans less than 10,000 - Switched to condom catheter. Continue betty-care. EtOH, abuse - Folic acid, thiamine DVT prop Lovenox Alternative Code:Intubation Discharge Planning Continue PT/OT/ST. SSI pending. Difficult placement. Problem Qualifiers (1) Traumatic brain injury: (2) Subdural hemorrhage following injury: Qualified Code: S06.5X1A - Traumatic subdural hemorrhage with loss of consciousness of 30 minutes or less, initial encounter (3) Fracture of occipital bone of skull with loss of consciousness: Qualified Code: S02.119A - Fracture of occipital bone of skull with loss of consciousness, closed, initial encounter Ayse Garza DO Nov 26, 2016 5:04 pm
--- NOTE | 2016-11-26 18:17 | HHI.PR ---
Subjective Subjective Comments Patient sitting up in bedside chair. Family/friends at bedside. Patient appears to be comfortable and not in any apparent distress or pain. Allergies: Coded Allergies: UNOBTAINABLE (Unverified , 10/11/16) Review of Systems All other ROS: Unable to obtain Exam I&O / VS 11/25/16 11/25/16 11/26/16 15:00 23:00 07:00 Intake Total 661 ml Balance 661 ml Tube Feeding 661 ml # Voids 4 1 2 # Bowel Movements 0 0 Vital Signs Date Time Temp Pulse Resp B/P Pulse Ox O2 Delivery O2 Flow Rate FiO2 11/26/16 16:36 96.7 80 20 126/72 100 11/26/16 11:41 96.8 80 20 116/71 99 11/26/16 10:51 96 28 11/26/16 08:26 97.0 68 20 108/64 97 11/26/16 06:15 18 11/26/16 04:00 95.6 69 20 159/83 98 11/26/16 00:00 97.2 91 20 147/81 96 11/25/16 20:00 97.2 85 20 129/66 96 General: No acute distress, Other (Trach with T-piece) Respiratory: Coarse breath sounds Musculoskeletal: ROM (Grossly within normal limits), Other (SCDs and Multi- Podus boots in place) Psychiatric: Cooperative Neurologic: Speech (Writing on wipe board), Other (Follows simple gestured commands to move the extremities) Assessment and Plan Diagnosis: (1) Traumatic brain injury Qualified Code: S06.9X6D - Traumatic brain injury, with LOC > 24 hr without return to prior conscious level, patient surviving, subsequent encounter Assessment 1. Fall from ladder with severe TBI including occipital fracture, SDH and SAH S/ P right FTP craniectomy with evacuation of SDH now Rancho 5 2. Trach on T-piece 3. Seizure 4. Hard of hearing 5. Pneumonia 6. Hypertension 7. Status post PEG 8. Hepatitis C 9. History of ETOH abuse Plan 1. PT/OT following for ROM. Now moderate assistance for bed mobility and maximal assistance sit to stand using a lift system and takes ambulate 3 feet and left. Dependent for ADLs 2. Appreciate Neuropsychology followup. 3. ST following for swallow evaluation which was deferred due to secretions 4. Continue Multi-Podus boots to prevent foot drop 5. Will continue to follow regarding ongoing rehabilitation needs while hospitalized and at discharge in conjunction with case management. Currently SSI pending Tamanna Munson MD Nov 26, 2016 18:17
--- NOTE | 2016-11-26 19:08 | HHI.PR ---
Subjective Remarks 56 YOWM with Fall,ICH,ventriculostomy RF, has trach. Alert, awake, looks around No fever Tolerates TF at goal rate 65 cc /HR follows commands Secretions decreased Objective Vital Signs Vital Signs Date Time Temp Pulse Resp B/P Pulse Ox O2 Delivery O2 Flow Rate FiO2 11/26/16 16:36 96.7 80 20 126/72 100 11/26/16 11:41 96.8 80 20 116/71 99 11/26/16 10:51 96 28 11/26/16 08:26 97.0 68 20 108/64 97 11/26/16 06:15 18 11/26/16 04:00 95.6 69 20 159/83 98 11/26/16 00:00 97.2 91 20 147/81 96 11/25/16 20:00 97.2 85 20 129/66 96 I/O 11/25/16 11/25/16 11/25/16 11/26/16 11/26/16 11/26/16 07:00 15:00 23:00 07:00 15:00 23:00 Intake Total 0 ml 661 ml Balance 0 ml 661 ml Intake Oral 0 ml Tube Feeding 661 ml # Voids 1 4 1 2 3 3 # Bowel Movements 0 0 0 Objective Remarks GENERAL: WBWN male, On Trach SKIN: Warm and dry. HEAD: Normocephalic. EYES: No scleral icterus. No injection or drainage. NECK: Supple, trachea midline. No JVD or lymphadenopathy. trach in place CARDIOVASCULAR: Regular rate and rhythm without murmurs, gallops, or rubs. RESPIRATORY: Breath sounds equal bilaterally. No accessory muscle use. GASTROINTESTINAL: Abdomen soft, non-tender, nondistended. PEG in place MUSCULOSKELETAL: No cyanosis, or edema. BACK: Nontender without obvious deformity. No CVA tenderness. A/P Assessment and Plan RF. s/p Trach s/P Ventriculostomy PEG placement PLAN: Aerosol nebs SQ Lovenox TF @ 65cc/HR Trach suction prn Titerate 02 to keep sat >90% Stable Pulm Will downsize trach PMV trial Murphy Cm MD Nov 26, 2016 19:08
[2016-11-27] VITALS (9 sets, daily range): BP systolic 120–152; BP diastolic 71–88; PULSE 72–100; RESP 19–22; TEMP 95.6–97.7; O2SAT 95–99
[2016-11-27] MEDS: PROPRANOLOL HCL 20 MG TAB PO SCH ×5 (01:09→23:25)
[2016-11-27] MEDS: HYDROCORTISONE 1% CREAM 30 GM TOPICAL SCH ×3 (05:22→21:14)
[2016-11-27] MEDS: cloNIDine HCL 0.3 MG TAB PO SCH ×3 (05:22→21:14)
[2016-11-27] MEDS: amLODIPine BESYLATE 5 MG TAB PO SCH (09:34)
[2016-11-27] MEDS: POTASSIUM CHLORIDE 25 MEQ EFFERVESCENT TAB TUBE SCH (09:34)
[2016-11-27] MEDS: THIAMINE HCL 100 MG TAB PO SCH (09:34)
[2016-11-27] MEDS: FOLIC ACID 1 MG TAB PO SCH (09:35)
[2016-11-27] MEDS: PANTOPRAZOLE SODIUM 40 MG VIAL IVP SCH (09:35)
[2016-11-27] MEDS: DOCUSATE SODIUM 100 MG CAP PO SCH ×2 (09:35→21:00)
[2016-11-27] MEDS: FUROSEMIDE 40 MG/4 ML VIAL IV PUSH SCH (09:35)
[2016-11-27] MEDS: levETIRAcetam 500 MG/5 ML UDC TUBE SCH ×2 (09:35→21:14)
[2016-11-27] MEDS: SODIUM CHLORIDE 0.9% FLUSH 5 ML FLUSH IVF SCH ×2 (09:35→21:00)
[2016-11-27] MEDS: MULTIVITAMIN TAB PO SCH (09:35)
[2016-11-27] MEDS: LACTOBACILLUS ACIDOPHILUS TAB PEG SCH (09:35)
[2016-11-27] MEDS: WATER IV SCH ×4 (12:03→23:25)
[2016-11-27] MEDS: ENOXAPARIN SODIUM 40 MG/0.4 ML SYRINGE SQ SCH (12:03)
[2016-11-27] MEDS: DEXTROSE 5% IV SCH ×4 (12:03→23:25)
[2016-11-27] MEDS: VALPROATE IV SCH ×4 (12:03→23:25)
--- NOTE | 2016-11-27 13:31 | HHI.PR ---
Subjective Remarks Follow-up visit pneumonia, trauma status post fall, subdural subarachnoid hemorrhage. Patient is doing well. Mouths words. Denies any acute concerns. Pulmonary indicated downsizing trach. [place] can be tried after downsizing trach. No fever, chills. Objective Vitals Vital Signs Date Time Temp Pulse Resp B/P Pulse Ox O2 Delivery O2 Flow Rate FiO2 11/27/16 12:00 96.0 86 19 148/82 99 11/27/16 09:50 T-Piece 28 Humidified 11/27/16 08:00 95.6 72 22 152/71 98 11/27/16 05:12 97.6 75 19 140/77 99 11/27/16 00:29 97.5 78 19 126/88 96 11/26/16 20:41 97.5 78 19 144/80 96 11/26/16 19:00 96 Trach Collar 6.00 28 11/26/16 18:00 Trach Collar 28 11/26/16 16:36 96.7 80 20 126/72 100 I/O 11/26/16 11/26/16 11/26/16 11/27/16 11/27/16 11/27/16 07:00 15:00 23:00 07:00 15:00 23:00 Intake Total 1050 ml Balance 1050 ml Tube Feeding 650 ml Other 400 ml # Voids 2 3 4 2 # Bowel Movements 0 Imaging Last Impressions Chest X-Ray 11/09/16 0000 Signed Impressions: Service Date/Time: Wednesday, November 09, 2016 17:22 - CONCLUSION: Right basilar patchiness consistent with probable pneumonia. Clinical correlation is recommended. Jose James MD Lower Extremity Ultrasound 10/27/16 0000 Signed Impressions: Service Date/Time: Thursday, October 27, 2016 10:13 - CONCLUSION: No DVT either lower extremity. 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 MD Head CT 10/23/16 0000 Signed Impressions: Service Date/Time: Sunday, October 23, 2016 11:21 - CONCLUSION: 1. Examination quality is degraded by motion artifact. There is decreased midline shift, currently measuring 3 mm compared to 6 mm on the prior study. 2. There are persistent hemorrhagic contusions in the right frontal lobe but they are less well-visualized today either related to interval improvement or related to motion artifact. Red Arenas MD Chest CT 10/23/16 0000 Signed Impressions: Service Date/Time: Sunday, October 23, 2016 11:24 - CONCLUSION: 1. Airspace consolidation within the left upper lobe. This could represent an infectious process. 2. Small bilateral pleural effusions with associated compressive atelectasis in the lower lobes. Red Arenas MD Abdomen/Pelvis CT 10/23/16 0000 Signed Impressions: Service Date/Time: Sunday, October 23, 2016 11:27 - CONCLUSION: 1. No acute finding is identified within the abdomen or pelvis. 2. Anasarca. 3. Stable 7 mm nodule on the left adrenal gland. Small size favors a benign process but is incompletely characterized on this examination. Red Arenas MD Neck CTA 10/12/16 0000 Signed Impressions: Service Date/Time: Wednesday, October 12, 2016 09:27 - CONCLUSION: Mild atherosclerotic changes in the proximal portions of both internal carotid arteries but no significant stenosis. Dez Petersen MD Head CTA 10/12/16 0000 Signed Impressions: Service Date/Time: Wednesday, October 12, 2016 09:27 - CONCLUSION: No evidence of acute vascular injury Red Hoffman MD Pelvis X-Ray 10/11/16 1213 Signed Impressions: Service Date/Time: Tuesday, October 11, 2016 12:02 - CONCLUSION: Satisfactory trauma pelvis appearance. Red Hoffman MD Cervical Spine CT 10/11/16 1213 Signed Impressions: Service Date/Time: Tuesday, October 11, 2016 12:19 - CONCLUSION: Occipital skull fracture. No evidence of acute traumatic injury in the cervical spine Red Hoffman MD Objective Remarks GENERAL: Alert, NAD. Opens eyes, mouths words, nods, moves upper and lower ext. Better movement with upper ext. SKIN: Warm and dry. HEAD: Normocephalic. EYES: No scleral icterus. No injection or drainage. NECK: Supple, trachea midline. No JVD or lymphadenopathy. CARDIOVASCULAR: Regular rate and rhythm without murmurs, gallops, or rubs. RESPIRATORY: Coarse breath sounds with scattered rhonchi. GASTROINTESTINAL: Abdomen soft, non-tender, nondistended. MUSCULOSKELETAL: No cyanosis, or edema. BACK: Nontender without obvious deformity. No CVA tenderness. Procedures 10/27/2016 Blue rhino tracheostomy 10/18/2016 Left frontal bur hole with placement of an intracranial pressure Right frontotemporoparietal decompressive craniectomy with evacuation of subdural hematoma 10/13/2016 Right frontal [place] hole with placement of a ventriculostomy catheter A/P Problem List: (1) Encephalopathy ICD Code: G93.40 Status: Acute (2) Pneumonia ICD Code: J18.9 Status: Acute (3) SAH (subarachnoid hemorrhage) ICD Code: I60.9 Status: Acute (4) Major neurocognitive disorder as late effect of traumatic brain injury with behavioral disturbance ICD Code: S06.9X9S Status: Acute (5) Traumatic brain injury ICD Code: S06.9X9A Status: Chronic (6) Subdural hemorrhage following injury ICD Code: S06.5X9A Status: Acute (7) Fracture of occipital bone of skull with loss of consciousness ICD Code: S02.119A Status: Acute (8) Hepatitis C antibody positive in blood ICD Code: R76.8 Status: Acute (9) Rash ICD Code: R21 Status: Acute Assessment and Plan Patient is a 56-year-old male who came to the hospital on 10/11/16 as a trauma patient. As per report, patient was on a ladder and fell approximately 10 feet. Bystander on the scene perform CPR for approximately 2 minutes stating the patient was blue. On EMS arrival patient is reported to have a GCS of 6, which improved at the time of ED arrival to GCS of 11. Imaging studies showed occipital fracture subdural and subarachnoid hemorrhage. The patient developed worsening agitation he was intubated and placed on mechanical ventilation. Repeat CT in 24 hours showed worsening of bilateral subdural subarachnoid hemorrhage with right temporal parietal subdural hemorrhage with 9 mL leftward midline shift. S/P Craniotomy and drain. Pt. now on tracheostomy and PEG tube placed. Consulted for transfer of care. Trauma, status post fall from a ladder Skull fracture, occipital Subarachnoid hemorrhage Subdural hemorrhage Status post craniotomy Encephalopathy - Rehabilitation medicine following. - Continue Keppra, valproic acid. - Seizure precaution - Continue physical therapy occupational therapy for deconditioning - Contacted Neurosurgery OIL DIPPER regarding bone flap. Waiting to hear from neurosurgery. Tracheostomy Pneumonia, HCAP vs. Aspiration pneumonia, possibly S. Aureus/ Anaerobes - Leukocytosis continues WBC 13.0 --> 14.5 - Reviewed chest xray repeat 11/10/16- Right basilar patchiness consistent with probable pneumonia. Likely aspiration pneumonia. - 11/04/16 Chest x-ray showed patchy right lung base opacity nonspecific. repeat chest x-ray showed no significant changes occurred. - Continue pulmonary toileting. - Neb treatments - Pulmonology following input appreciated. - Plan to wean off tracheostomy. Currently on trach collar FiO2 28% - Suction when necessary. Oral and trach care. - Aspiration precaution. - Received Levaquin and Flagyl IV, discontinued on 11/14/2016. - Cotton Washer indicates downsizing trach. HTN - Continue medication Lasix 40 mg daily, propranolol 20 mg every 6 hours, clonidine 0.3 every 8 hours, labetalol when necessary. - Vasotec PRN. Continue Amlodipine 5mg Qday. PEG in place - [facility] - Monitor for aspiration risk Diarrhea - On the maylin shield - Hold off bowel regimen. - C. difficile negative Hepatitis C - Positive hep C serology - GI follow up as an outpatient. Urinary tract infection - UA positive - Culture showed Rossy albicans less than 10,000 - Switched to condom catheter. Continue betty-care. EtOH, abuse - Folic acid, thiamine DVT prop Lovenox Alternative Code:Intubation Discharge Planning Continue PT/OT/ST. SSI pending. Difficult placement. Problem Qualifiers (1) Traumatic brain injury: (2) Subdural hemorrhage following injury: Qualified Code: S06.5X1A - Traumatic subdural hemorrhage with loss of consciousness of 30 minutes or less, initial encounter (3) Fracture of occipital bone of skull with loss of consciousness: Qualified Code: S02.119A - Fracture of occipital bone of skull with loss of consciousness, closed, initial encounter Ayse Garza DO Nov 27, 2016 13:31
--- NOTE | 2016-11-27 20:06 | HHI.PR ---
Subjective Remarks 56 YOWM with Fall,ICH,ventriculostomy RF, has trach. Alert, awake, looks around No fever Tolerates TF at goal rate 65 cc /HR follows commands Objective Vital Signs Vital Signs Date Time Temp Pulse Resp B/P Pulse Ox O2 Delivery O2 Flow Rate FiO2 11/27/16 18:27 76 138/85 11/27/16 13:00 80 128/83 11/27/16 12:00 96.0 86 19 148/82 99 11/27/16 09:50 T-Piece 28 Humidified 11/27/16 08:00 95.6 72 22 152/71 98 11/27/16 05:12 97.6 75 19 140/77 99 11/27/16 00:29 97.5 78 19 126/88 96 11/26/16 20:41 97.5 78 19 144/80 96 I/O 11/26/16 11/26/16 11/26/16 11/27/16 11/27/16 11/27/16 07:00 15:00 23:00 07:00 15:00 23:00 Intake Total 1050 ml Balance 1050 ml Tube Feeding 650 ml Other 400 ml # Voids 2 3 4 2 4 # Bowel Movements 0 0 Objective Remarks GENERAL: WBWN male, On Trach SKIN: Warm and dry. HEAD: Normocephalic. EYES: No scleral icterus. No injection or drainage. NECK: Supple, trachea midline. No JVD or lymphadenopathy. trach in place CARDIOVASCULAR: Regular rate and rhythm without murmurs, gallops, or rubs. RESPIRATORY: Breath sounds equal bilaterally. No accessory muscle use. GASTROINTESTINAL: Abdomen soft, non-tender, nondistended. PEG in place MUSCULOSKELETAL: No cyanosis, or edema. BACK: Nontender without obvious deformity. No CVA tenderness. A/P Assessment and Plan RF. s/p Trach s/P Ventriculostomy PEG placement PLAN: Aerosol nebs SQ Lovenox TF @ 65cc/HR Trach suction prn Titerate 02 to keep sat >90% DW RN Will downsize trach PMV trial Murphy Cm MD Nov 27, 2016 20:06
[2016-11-28] VITALS (8 sets, daily range): BP systolic 119–132; BP diastolic 69–79; PULSE 71–80; RESP 19–22; TEMP 96.6–98.8; O2SAT 96–98
[2016-11-28] MEDS: cloNIDine HCL 0.3 MG TAB PO SCH ×3 (06:31→22:45)
[2016-11-28] MEDS: PROPRANOLOL HCL 20 MG TAB PO SCH ×3 (06:31→18:45)
[2016-11-28] MEDS: HYDROCORTISONE 1% CREAM 30 GM TOPICAL SCH ×3 (06:31→22:45)
[2016-11-28] MEDS: POTASSIUM CHLORIDE 25 MEQ EFFERVESCENT TAB TUBE SCH (09:54)
[2016-11-28] MEDS: FUROSEMIDE 40 MG/4 ML VIAL IV PUSH SCH (09:54)
[2016-11-28] MEDS: MULTIVITAMIN TAB PO SCH (09:54)
[2016-11-28] MEDS: DOCUSATE SODIUM 100 MG CAP PO SCH ×2 (09:54→22:45)
[2016-11-28] MEDS: LACTOBACILLUS ACIDOPHILUS TAB PEG SCH (09:54)
[2016-11-28] MEDS: THIAMINE HCL 100 MG TAB PO SCH (09:55)
[2016-11-28] MEDS: levETIRAcetam 500 MG/5 ML UDC TUBE SCH ×2 (09:55→22:44)
[2016-11-28] MEDS: FOLIC ACID 1 MG TAB PO SCH (09:55)
[2016-11-28] MEDS: amLODIPine BESYLATE 5 MG TAB PO SCH (09:55)
[2016-11-28] MEDS: PANTOPRAZOLE SODIUM 40 MG VIAL IVP SCH (09:55)
[2016-11-28] MEDS: DEXTROSE 5% IV SCH ×4 (09:56→22:47)
[2016-11-28] MEDS: VALPROATE IV SCH ×4 (09:56→22:47)
[2016-11-28] MEDS: oxyCODONE HCL ORAL CONC 20 MG/ML SYRINGE PO PRN (09:56)
[2016-11-28] MEDS: SODIUM CHLORIDE 0.9% FLUSH 5 ML FLUSH IVF SCH ×2 (09:56→22:46)
[2016-11-28] MEDS: WATER IV SCH ×4 (09:56→22:47)
--- NOTE | 2016-11-28 11:16 | HHI.PR ---
Subjective Remarks Follow-up visit pneumonia, trauma status post fall, subdural subarachnoid hemorrhage. Mr. Nixon tries to talk but difficult to understand. No fever, chills. RT is preparing to downsize trach after which PMV can be tried. Objective Vitals Vital Signs Date Time Temp Pulse Resp B/P Pulse Ox O2 Delivery O2 Flow Rate FiO2 11/28/16 09:50 96 T-piece 28 11/28/16 08:00 97.4 78 22 122/69 96 11/28/16 03:45 98.8 80 19 122/75 98 11/28/16 00:30 98.1 80 20 120/76 98 11/28/16 00:30 T-Piece 6.00 28 Humidified 11/27/16 21:30 97.7 77 19 125/80 99 11/27/16 21:30 T-Piece 6.00 28 Humidified 11/27/16 20:30 95 T-piece 28 11/27/16 18:27 76 138/85 11/27/16 13:00 80 128/83 11/27/16 12:00 96.0 86 19 148/82 99 I/O 11/27/16 11/27/16 11/27/16 11/28/16 11/28/16 11/28/16 07:00 15:00 23:00 07:00 15:00 23:00 Intake Total 0 ml 1450 ml Balance 0 ml 1450 ml Intake Oral 0 ml 0 ml IV Total 100 ml Tube Feeding 750 ml Tube Irrigant 600 ml # Voids 2 6 4 # Bowel Movements 0 0 Imaging Last Impressions Chest X-Ray 11/09/16 0000 Signed Impressions: Service Date/Time: Wednesday, November 09, 2016 17:22 - CONCLUSION: Right basilar patchiness consistent with probable pneumonia. Clinical correlation is recommended. Jose James MD Lower Extremity Ultrasound 10/27/16 0000 Signed Impressions: Service Date/Time: Thursday, October 27, 2016 10:13 - CONCLUSION: No DVT either lower extremity. 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 MD Head CT 10/23/16 0000 Signed Impressions: Service Date/Time: Sunday, October 23, 2016 11:21 - CONCLUSION: 1. Examination quality is degraded by motion artifact. There is decreased midline shift, currently measuring 3 mm compared to 6 mm on the prior study. 2. There are persistent hemorrhagic contusions in the right frontal lobe but they are less well-visualized today either related to interval improvement or related to motion artifact. Red Arenas MD Chest CT 10/23/16 0000 Signed Impressions: Service Date/Time: Sunday, October 23, 2016 11:24 - CONCLUSION: 1. Airspace consolidation within the left upper lobe. This could represent an infectious process. 2. Small bilateral pleural effusions with associated compressive atelectasis in the lower lobes. Red Arenas MD Abdomen/Pelvis CT 10/23/16 0000 Signed Impressions: Service Date/Time: Sunday, October 23, 2016 11:27 - CONCLUSION: 1. No acute finding is identified within the abdomen or pelvis. 2. Anasarca. 3. Stable 7 mm nodule on the left adrenal gland. Small size favors a benign process but is incompletely characterized on this examination. Red Arenas MD Neck CTA 10/12/16 0000 Signed Impressions: Service Date/Time: Wednesday, October 12, 2016 09:27 - CONCLUSION: Mild atherosclerotic changes in the proximal portions of both internal carotid arteries but no significant stenosis. Dez Petersen MD Head CTA 10/12/16 0000 Signed Impressions: Service Date/Time: Wednesday, October 12, 2016 09:27 - CONCLUSION: No evidence of acute vascular injury Red Hoffman MD Pelvis X-Ray 10/11/16 1213 Signed Impressions: Service Date/Time: Tuesday, October 11, 2016 12:02 - CONCLUSION: Satisfactory trauma pelvis appearance. Red Hoffman MD Cervical Spine CT 10/11/16 1213 Signed Impressions: Service Date/Time: Tuesday, October 11, 2016 12:19 - CONCLUSION: Occipital skull fracture. No evidence of acute traumatic injury in the cervical spine Red Hoffman MD Objective Remarks GENERAL: Alert, NAD. Opens eyes, mouths words, nods, moves upper and lower ext. Better movement with upper ext. SKIN: Warm and dry. HEAD: Normocephalic. EYES: No scleral icterus. No injection or drainage. NECK: Supple, trachea midline. No JVD or lymphadenopathy. CARDIOVASCULAR: Regular rate and rhythm without murmurs, gallops, or rubs. RESPIRATORY: Coarse breath sounds with scattered rhonchi. GASTROINTESTINAL: Abdomen soft, non-tender, nondistended. MUSCULOSKELETAL: No cyanosis, or edema. BACK: Nontender without obvious deformity. No CVA tenderness. Procedures 10/27/2016 Blue rhino tracheostomy 10/18/2016 Left frontal bur hole with placement of an intracranial pressure Right frontotemporoparietal decompressive craniectomy with evacuation of subdural hematoma 10/13/2016 Right frontal [place] hole with placement of a ventriculostomy catheter A/P Problem List: (1) Encephalopathy ICD Code: G93.40 Status: Acute (2) Pneumonia ICD Code: J18.9 Status: Acute (3) SAH (subarachnoid hemorrhage) ICD Code: I60.9 Status: Acute (4) Major neurocognitive disorder as late effect of traumatic brain injury with behavioral disturbance ICD Code: S06.9X9S Status: Acute (5) Traumatic brain injury ICD Code: S06.9X9A Status: Chronic (6) Subdural hemorrhage following injury ICD Code: S06.5X9A Status: Acute (7) Fracture of occipital bone of skull with loss of consciousness ICD Code: S02.119A Status: Acute (8) Hepatitis C antibody positive in blood ICD Code: R76.8 Status: Acute (9) Rash ICD Code: R21 Status: Acute Assessment and Plan Patient is a 56-year-old male who came to the hospital on 10/11/16 as a trauma patient. As per report, patient was on a ladder and fell approximately 10 feet. Bystander on the scene perform CPR for approximately 2 minutes stating the patient was blue. On EMS arrival patient is reported to have a GCS of 6, which improved at the time of ED arrival to GCS of 11. Imaging studies showed occipital fracture subdural and subarachnoid hemorrhage. The patient developed worsening agitation he was intubated and placed on mechanical ventilation. Repeat CT in 24 hours showed worsening of bilateral subdural subarachnoid hemorrhage with right temporal parietal subdural hemorrhage with 9 mL leftward midline shift. S/P Craniotomy and drain. Pt. now on tracheostomy and PEG tube placed. Consulted for transfer of care. Trauma, status post fall from a ladder Skull fracture, occipital Subarachnoid hemorrhage Subdural hemorrhage Status post craniotomy Encephalopathy - Rehabilitation medicine following. - Continue Keppra, valproic acid. - Seizure precaution - Continue physical therapy occupational therapy for deconditioning - Contacted Neurosurgery EDGE TRIMMING MACHINE OPERATOR regarding bone flap. Waiting to hear from neurosurgery. Tracheostomy Pneumonia, HCAP vs. Aspiration pneumonia, possibly S. Aureus/ Anaerobes - Leukocytosis continues WBC 13.0 --> 14.5 - Reviewed chest xray repeat 11/10/16- Right basilar patchiness consistent with probable pneumonia. Likely aspiration pneumonia. - 11/04/16 Chest x-ray showed patchy right lung base opacity nonspecific. repeat chest x-ray showed no significant changes occurred. - Continue pulmonary toileting. - Neb treatments - Pulmonology following input appreciated. - Plan to wean off tracheostomy. Currently on trach collar FiO2 28% - Suction when necessary. Oral and trach care. - Aspiration precaution. - Received Levaquin and Flagyl IV, discontinued on 11/14/2016. - RT to downsize trach today, PMV trial. HTN - Continue medication Lasix 40 mg daily, propranolol 20 mg every 6 hours, clonidine 0.3 every 8 hours, labetalol when necessary. - Vasotec PRN. Continue Amlodipine 5mg Qday. PEG in place - [facility] - Monitor for aspiration risk Diarrhea - On the maylin shield - Hold off bowel regimen. - C. difficile negative Hepatitis C - Positive hep C serology - GI follow up as an outpatient. Urinary tract infection - UA positive - Culture showed Rossy albicans less than 10,000 - Switched to condom catheter. Continue betty-care. EtOH, abuse - Folic acid, thiamine DVT prop Lovenox Alternative Code:Intubation Discharge Planning Continue PT/OT/ST. SSI pending. Difficult placement. Problem Qualifiers (1) Traumatic brain injury: (2) Subdural hemorrhage following injury: Qualified Code: S06.5X1A - Traumatic subdural hemorrhage with loss of consciousness of 30 minutes or less, initial encounter (3) Fracture of occipital bone of skull with loss of consciousness: Qualified Code: S02.119A - Fracture of occipital bone of skull with loss of consciousness, closed, initial encounter Ayse Garza DO Nov 28, 2016 11:16
[2016-11-28] MEDS: ENOXAPARIN SODIUM 40 MG/0.4 ML SYRINGE SQ SCH (13:18)
[2016-11-28] MEDS: HYOSCYAMINE SOLN 0.125 MG/ML 15 ML BTL PEG PRN (15:48)
--- NOTE | 2016-11-28 19:02 | HHI.PR ---
Subjective Remarks 56 YOWM with Fall,ICH,ventriculostomy RF, has trach. Alert, awake, looks around No fever Tolerates TF at goal rate 65 cc /HR follows commands Trach downsized to #6 Objective Vital Signs Vital Signs Date Time Temp Pulse Resp B/P Pulse Ox O2 Delivery O2 Flow Rate FiO2 11/28/16 18:01 72 20 119/73 97 11/28/16 16:00 97.9 76 22 126/79 96 11/28/16 12:00 96.6 71 22 132/74 98 11/28/16 11:23 28 11/28/16 11:15 Blow By 28 Trach Collar Humidified 11/28/16 09:50 96 T-piece 28 11/28/16 09:20 Blow By 28 T-Piece Humidified 11/28/16 08:00 97.4 78 22 122/69 96 11/28/16 03:45 98.8 80 19 122/75 98 11/28/16 00:30 98.1 80 20 120/76 98 11/28/16 00:30 T-Piece 6.00 28 Humidified 11/27/16 21:30 97.7 77 19 125/80 99 11/27/16 21:30 T-Piece 6.00 28 Humidified 11/27/16 20:30 95 T-piece 28 I/O 11/27/16 11/27/16 11/27/16 11/28/16 11/28/16 11/28/16 07:00 15:00 23:00 07:00 15:00 23:00 Intake Total 0 ml 1450 ml Balance 0 ml 1450 ml Intake Oral 0 ml 0 ml IV Total 100 ml Tube Feeding 750 ml Tube Irrigant 600 ml # Voids 2 6 4 5 # Bowel Movements 0 0 0 Objective Remarks GENERAL: WBWN male, On Trach SKIN: Warm and dry. HEAD: Normocephalic. EYES: No scleral icterus. No injection or drainage. NECK: Supple, trachea midline. No JVD or lymphadenopathy. trach in place CARDIOVASCULAR: Regular rate and rhythm without murmurs, gallops, or rubs. RESPIRATORY: Breath sounds equal bilaterally. No accessory muscle use. GASTROINTESTINAL: Abdomen soft, non-tender, nondistended. PEG in place MUSCULOSKELETAL: No cyanosis, or edema. BACK: Nontender without obvious deformity. No CVA tenderness. A/P Assessment and Plan RF. s/p Trach s/P Ventriculostomy PEG placement PLAN: Aerosol nebs SQ Lovenox TF @ 65cc/HR Trach suction prn Titerate 02 to keep sat >90% DW RN daily PMV trial Murphy Cm MD Nov 28, 2016 19:02
[2016-11-29] VITALS (9 sets, daily range): BP systolic 107–157; BP diastolic 60–88; PULSE 68–84; RESP 18–20; TEMP 96.3–98.6; O2SAT 93–98
[2016-11-29] MEDS: PROPRANOLOL HCL 20 MG TAB PO SCH ×5 (01:34→23:13)
[2016-11-29] MEDS: HYOSCYAMINE SOLN 0.125 MG/ML 15 ML BTL PEG PRN (01:34)
[2016-11-29] MEDS: cloNIDine HCL 0.3 MG TAB PO SCH ×3 (06:35→22:45)
[2016-11-29] MEDS: HYDROCORTISONE 1% CREAM 30 GM TOPICAL SCH ×3 (06:36→22:46)
[2016-11-29] MEDS: SODIUM CHLORIDE 0.9% FLUSH 5 ML FLUSH IVF SCH ×2 (09:00→21:00)
[2016-11-29] MEDS: POTASSIUM CHLORIDE 25 MEQ EFFERVESCENT TAB TUBE SCH (09:09)
[2016-11-29] MEDS: THIAMINE HCL 100 MG TAB PO SCH (09:10)
[2016-11-29] MEDS: FOLIC ACID 1 MG TAB PO SCH (09:10)
[2016-11-29] MEDS: amLODIPine BESYLATE 5 MG TAB PO SCH (09:10)
[2016-11-29] MEDS: PANTOPRAZOLE SODIUM 40 MG VIAL IVP SCH (09:10)
[2016-11-29] MEDS: DOCUSATE SODIUM 100 MG CAP PO SCH ×2 (09:10→22:45)
[2016-11-29] MEDS: MULTIVITAMIN TAB PO SCH (09:10)
[2016-11-29] MEDS: LACTOBACILLUS ACIDOPHILUS TAB PEG SCH (09:10)
[2016-11-29] MEDS: FUROSEMIDE 40 MG/4 ML VIAL IV PUSH SCH (09:10)
[2016-11-29] MEDS: levETIRAcetam 500 MG/5 ML UDC TUBE SCH ×2 (09:11→22:45)
--- NOTE | 2016-11-29 10:46 | HHI.PR ---
Subjective Remarks Follow-up for TBI. Communicated with the patient using writing on a white board. He has no acute complaints today and is doing well. He also wishes me a good today as well. Discussed with RN, PM valve was placed today to attempt trial of speaking. Sister and friends at bedside. Family has no acute complaints/concerns at this time. Patient's sister states that she is meeting with palliative care today. Objective Vitals Vital Signs Date Time Temp Pulse Resp B/P Pulse Ox O2 Delivery O2 Flow Rate FiO2 11/29/16 09:35 94 Trach Collar 28 11/29/16 09:35 Aerosol Mask 28 11/29/16 09:00 94 Trach Collar 28 Simple Mask 11/29/16 08:00 68 20 128/73 97 11/29/16 06:50 98.6 84 20 125/88 94 11/29/16 00:45 97.7 82 20 118/80 98 11/28/16 20:24 97 Trach Collar 6.00 28 11/28/16 20:00 Blow By 6.00 28 Trach Collar Humidified 11/28/16 18:01 72 20 119/73 97 11/28/16 16:00 97.9 76 22 126/79 96 11/28/16 12:00 96.6 71 22 132/74 98 11/28/16 11:23 28 11/28/16 11:15 Blow By 28 Trach Collar Humidified I/O 11/28/16 11/28/16 11/28/16 11/29/16 11/29/16 11/29/16 07:00 15:00 23:00 07:00 15:00 23:00 Intake Total 1450 ml 0 ml 0 ml Balance 1450 ml 0 ml 0 ml Intake Oral 0 ml 0 ml 0 ml IV Total 100 ml Tube Feeding 750 ml Tube Irrigant 600 ml # Voids 4 5 3 4 # Bowel Movements 0 0 0 0 Objective Remarks GENERAL: Well-developed well-nourished. In no acute distress. In bilateral wrist restraints upon arrival. SKIN: Warm and dry. No lesions noted. HEENT: Previous right temporal bone flap. Pupils equal and round. Mucous membranes pink and moist. Tracheostomy in place. CARDIOVASCULAR: Regular rate and rhythm. No murmur appreciated. RESPIRATORY: No accessory muscle use. Clear to auscultation. Breath sounds equal bilaterally. GASTROINTESTINAL: Abdomen soft, non-tender, nondistended. Bowel sounds x4. PEG tube in place. MUSCULOSKELETAL: No obvious deformities. No clubbing or cyanosis. No edema. NEUROLOGICAL: Awake and alert. Moves upper and lower extremities spontaneously. Strength better in the upper extremities. Stronger on the right side. Attempts to mouth words, but essentially nonverbal. Able to write for communication with complete sentences. Procedures 10/27/2016 Blue rhino tracheostomy 10/18/2016 Left frontal bur hole with placement of an intracranial pressure Right frontotemporoparietal decompressive craniectomy with evacuation of subdural hematoma 10/13/2016 Right frontal Anita hole with placement of a ventriculostomy catheter A/P Problem List: (1) Encephalopathy ICD Code: G93.40 Status: Acute (2) Pneumonia ICD Code: J18.9 Status: Acute (3) SAH (subarachnoid hemorrhage) ICD Code: I60.9 Status: Acute (4) Major neurocognitive disorder as late effect of traumatic brain injury with behavioral disturbance ICD Code: S06.9X9S Status: Acute (5) Traumatic brain injury ICD Code: S06.9X9A Status: Chronic (6) Subdural hemorrhage following injury ICD Code: S06.5X9A Status: Acute (7) Fracture of occipital bone of skull with loss of consciousness ICD Code: S02.119A Status: Acute (8) Hepatitis C antibody positive in blood ICD Code: R76.8 Status: Acute (9) Rash ICD Code: R21 Status: Acute Assessment and Plan Patient is a 56-year-old male who came to the hospital on 10/11/16 as a trauma patient. As per report, patient was on a ladder and fell approximately 10 feet. Bystander on the scene perform CPR for approximately 2 minutes stating the patient was blue. On EMS arrival patient is reported to have a GCS of 6, which improved at the time of ED arrival to GCS of 11. Imaging studies showed occipital fracture subdural and subarachnoid hemorrhage. The patient developed worsening agitation he was intubated and placed on mechanical ventilation. Repeat CT in 24 hours showed worsening of bilateral subdural subarachnoid hemorrhage with right temporal parietal subdural hemorrhage with 9 mL leftward midline shift. S/P Craniotomy and drain. Pt. now on tracheostomy and PEG tube placed. Care transferred to hospitalist service. Trauma, status post fall from a ladder Skull fracture, occipital Subarachnoid hemorrhage Subdural hemorrhage Status post craniotomy Encephalopathy - Rehabilitation medicine following. - Continue Keppra, valproic acid. - Seizure precaution - Continue physical therapy occupational therapy for deconditioning - Follow-up neurosurgery recommendations regarding bone flap Tracheostomy Pneumonia, HCAP vs. Aspiration pneumonia, possibly S. Aureus/ Anaerobes - Continued leukocytosis, trended down - Reviewed chest xray repeat 11/10/16- Right basilar patchiness consistent with probable pneumonia. Likely aspiration pneumonia. - 11/04/16 Chest x-ray showed patchy right lung base opacity nonspecific. repeat chest x-ray showed no significant changes occurred. - Continue pulmonary toileting. - Neb treatments - Pulmonology following, input appreciated. - Plan to wean off tracheostomy. Currently on trach collar FiO2 28% - Suction when necessary. Oral and trach care. - Aspiration precaution. - Received Levaquin and Flagyl IV, discontinued on 11/14/2016. - Added Levsin for secretions - Restraints if needed to protect tracheostomy if agitated - RT downsized trach, PMV trial HTN - Continue medication Lasix 40 mg daily, propranolol 20 mg every 6 hours, clonidine 0.3 every 8 hours, labetalol when necessary. - Vasotec PRN. Continue Amlodipine 5mg Qday. PEG in place - Continue tube feedings as ordered, Jevity - Monitor for aspiration risk Hepatitis C - Positive hep C serology - GI follow up as an outpatient. Urinary tract infection - UA positive - Culture showed Rossy albicans less than 10,000 - Switched to condom catheter. Continue betty-care. EtOH, abuse - Folic acid, thiamine DVT prop Lovenox Bowel Regimen Alternative Code:Intubation Discharge Planning Continue PT/OT/ST. SSI pending. Difficult placement. Problem Qualifiers (1) Traumatic brain injury: Qualified Code: S06.9X6D - Traumatic brain injury, with LOC > 24 hr without return to prior conscious level, patient surviving, subsequent encounter (2) Subdural hemorrhage following injury: Qualified Code: S06.5X1A - Traumatic subdural hemorrhage with loss of consciousness of 30 minutes or less, initial encounter (3) Fracture of occipital bone of skull with loss of consciousness: Qualified Code: S02.119A - Fracture of occipital bone of skull with loss of consciousness, closed, initial encounter Montrell Springer Nov 29, 2016 10:45 Ayse Garza DO Nov 30, 2016 00:00 Montrell Springer Nov 29, 2016 10:45
[2016-11-29] MEDS: VALPROATE IV SCH ×4 (11:20→22:46)
[2016-11-29] MEDS: DEXTROSE 5% IV SCH ×4 (11:20→22:46)
[2016-11-29] MEDS: ENOXAPARIN SODIUM 40 MG/0.4 ML SYRINGE SQ SCH (11:20)
[2016-11-29] MEDS: MAGNESIUM HYDROXIDE SUSP 30 ML CUP PO PRN (11:20)
[2016-11-29] MEDS: WATER IV SCH ×4 (11:20→22:46)
--- NOTE | 2016-11-29 12:34 | HHI.HCPN ---
Reason for visit a. To assist with evaluation and management of symptoms including: encephalopathy; weakness; dysphagia, pain b. To assist medical decision maker(s) with: better understanding of current medical conditions; weighing benefits/burdens of medical treatment options; making medical treatment decisions. . (Татьяна Hauser) Subjective/Interval History Patient seen and assessed in room 1535. Patient's family also present. Patient is awake and alert, pleasant. Patient is stating he wants to go home. Patient responds to simple questions with 1-2 word answers status post Pass[place] valve. Follows some simple commands. Responses become less consistent as the patient becomes tired. Tracheostomy to trach collar, FiO2 28% with saturation of 95%. Follow-up chest x-ray on 11/09/16 showed right basilar patchiness consistent with probable pneumonia, likely aspiration. Patient tolerating artificial nutrition, Jevity 1.5 at 65ml/hr continuously. Speech therapy continues to follow patient. Patient remains NPO s/p follow-up swallow evaluation today 11/29/16. Albumin level of 3.2 on admission, decreased to 1.6. Afebrile. Persistent leukocytosis, WBC of 12.2 on 11/20/16. Sputum culture on 11/09 growing Serratia Marcescens. Urine culture on 11/07/16 growing Rossy Albicans. Patient denies pain on examination. PRN oxycodone 5mg - 10mg if available PO every 4 hours for pain and is being used sparingly. Patient received Oxycodone 5mg x1 in the past 24 hours. . Family/friend interactions Patient's fianc (Ana), sister (Manuela), and his best friend are at bedside. An update was provided on the patient's clinical condition, questions were answered to the best of my ability. Patient discharged pending placement at intermediate facility for rehabilitation, SSI now in place. Met with case managementMelonie. . (Татьяна Hauser) Advance Directives Living Will: Never completed Health Care Surrogate: Never completed Durable Power of Security Assessor: Never completed (Татьяна Hauser) Advance Directive Specifics Date completed: Advanced directives were never completed. . Health Care Surrogate(s): There is no written designation of a health care surrogate. . Documented care wishes: No written documentation of health care preferences/goals/wishes . (Татьяна Hauser) Objective Vital Signs Date Time Temp Pulse Resp B/P Pulse Ox O2 Delivery O2 Flow Rate FiO2 11/29/16 09:35 94 Trach Collar 28 11/29/16 09:35 Aerosol Mask 28 11/29/16 09:00 94 Trach Collar 28 Simple Mask 11/29/16 08:00 68 20 128/73 97 11/29/16 06:50 98.6 84 20 125/88 94 11/29/16 00:45 97.7 82 20 118/80 98 11/28/16 20:24 97 Trach Collar 6.00 28 11/28/16 20:00 Blow By 6.00 28 Trach Collar Humidified 11/28/16 18:01 72 20 119/73 97 11/28/16 16:00 97.9 76 22 126/79 96 Intake & Output 11/29/16 11/29/16 07:00 19:00 Intake Total 0 ml Balance 0 ml Intake Oral 0 ml # Voids 7 # Bowel Movements 0 . Physical Exam CONSTITUTIONAL/GENERAL: This is an adequately nourished patient with trach with Pass[place] valve and PEG s/p TBI. TUBES/LINES/DRAINS: Tracheostomy; PIV x 1, SCDs, PEG, Podus. SKIN: Right craniotomy surgical incision healing. Rash on BUE, multiple areas of breakdown HEAD: S/p craniotomy, right skull flap is soft. EYES: Pupils equal, reactive and sluggish. No scleral icterus. No injection or drainage. Fundi not examined. ENT: Nose without bleeding or purulent drainage. NECK: Trachea midline. CARDIOVASCULAR: Heart rate and rhythm regular. No murmurs, gallops, or rubs. RESPIRATORY/CHEST: Tracheostomy to trach collar, FiO2 28% with saturation of 95% . Respirations clear, equal and unlabored GASTROINTESTINAL: Abdomen rounded. BS active x 4. Tolerating tube feedings. Abdomen Binder in place, patient previously pulling on feeding tube. GENITOURINARY: Without palpable bladder distension MUSCULOSKELETAL: Extremities without clubbing, cyanosis. No mottling or clubbing. NEUROLOGICAL: Alert and awake. Responds to simple questions with 1-2 word answers, although simple commands-not consistently. PSYCHIATRIC: Does not appear to be experiencing anxiety/agitation. . (Татьяна Hauser) Diagnostic Tests Procedures * Anita hole with ICP monitor placed * Right craniectomy * Art line placement * Intubation/mechanical ventilation * Central line placement. * Tracheostomy * Peg tube . (Татьяна Hauser) Assessment and Plan Disease Oriented Problem List: (1) Traumatic brain injury (2) SAH (subarachnoid hemorrhage) (3) Subdural hemorrhage following injury (4) Fracture of occipital bone of skull with loss of consciousness (5) Encephalopathy acute (6) Alcohol dependence Comment: Long history of 12-15 drinks per day. . (7) Major neurocognitive disorder as late effect of traumatic brain injury with behavioral disturbance (8) Seizure (9) Pneumonia Comment: Probable aspiration. Blood in vomitus were in airway immediately after fall. . (10) Hepatitis C antibody positive in blood (11) Rectal bleeding Comment: Has had years of abdominal pain with intermittent rectal bleeding. Has avoided recommended work-up due to lack on insurance, lack of funds, and fear of results (per shasta). . Symptom Scale: (1) Pain 0-10 Scale: Unable to quantify Comment: Per review of notes: Patient had history of several pain syndromes. He complained of abdominal pain for years with occasional rectal bleeding. He also complained of right ankle pain where he had surgery and achiness in multiple joints. He would use BC powders several times a day and occasionally hydrocodone. Other current sources of pain might include prolonged bedbound status, post op wound/head pain, discomfort from trach/gann/tracheostomy/ vascular access lines. 11/22/16 Patient reports pain in hands bilaterally and right chest. Orders are in place for PRN oxycodone at this time 3 doses administered in the past 24 hours. . (2) Encephalopathy 0-10 Scale: Unable to quantify Comment: = This has been multi-factorial and has involved the brain injury, alcohol withdrawal, infection, seizure, etc. Current encephalopathy now mostly due to brain injury, minimal neurological gains have been made. Follow-up EEG on 11/03/16 has significantly improved in comparison to prior reports. No epileptiform features were present. Patient remains on Valproate and Keppra for seizure management. = 11/22/16: Patient is awake and alert. Using dry [employer] board to communicate, answering yes/no questions by nodding and shaking his head with greater consistency. Patient in hands, RN reports patient does try to pull out trach and peripheral IVs. When asked if he is painful, the patient writes out "Hands hurt. Right chest hurts". When he asked to rate his pain on a scale of 0 - 10, he does not respond. . (3) Dyspnea Comment: Tracheostomy to T-piece, FiO2 28% with oxygen saturation in the mid to high 90s. Coarse breath sounds with scattered rhonchi, suctioned for thick white sputum. Follow-up chest x-ray on 11/09/16 showed right basilar patchiness consistent with probable pneumonia, likely aspiration. Sputum culture on growing Serratia Marcescens. . (4) Dysphagia Comment: Patient tolerating bypass feedings, Jevity 1.5 at 65ml/hour via PEG tube. Speech therapy continues to follow - honey consistency liquids dyed blue to facilitate tracking of aspirate noted immediately after presentation, seen in tracheostomy. Patient remains NPO secondary to severe profound cognitive communicative deficits. . Pertinent Non-Medical Issues Psychosocial: Mr Nixon was born in [place] to [place] citizens. His mother in childbirth and his biological father, with already 5 children to care for, put Mr Nixon up for adoption. His adoptive parents are both . One adoptive sister is . An adoptive brother lives in [place] and an adoptive sister lives in [place]. He is not in close touch with the biological family in [place]. Patient has a high school education. 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 Never . No kids. Has been with his fijessicae -- Brandy Workman -- for 8 years. They were scheduled to on 01/16/17. Spiritual: Baptist background. Yarsanism and spirituality have not played an important role in his life. [place]asta appreciates rod tape operator visits. Legal: No advance directives. Without a designated health care surrogate, decision-making appears to fall to the majority of his siblings. Ethical issues impacting care: Patient is incapacitated to make his own health care decisions. It is unclear if/when he will regain capacity. . Important Contacts * Robyn "Manuela"reynold (sister) - heat care proxy: or [phone] (niece's cell phone) * Brandy Workman (fiance) [phone] or [phone] * Perez "Demarco" (brother) [phone] * Robyn "Jamila" Ubaldo (niece) [phone] . 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 It is unclear if he had some sort of event causing the fall (he had vomitus and blood in his airway at time of fall) or merely fell. His injuries include occipital bone fracture, SDH, SAH. Complications include EtOH withdrawal, aspiration pneumonia. He has had high ICPs and ultimately underwent right sided craniectomy for decompression. He has had seizure activity. There has been little evidence so far of meaningful neurological recovery. Neurosurgery feels there continues to be a reasonable chance of meaningful neurologic recovery (though it will take a lot of time) and is recommending ongoing aggressive care. . Code Status: Alternative Code (Intubation only) Plan == Code Status: FULL CODE == Decision making: Mr. Nixon is incapacitated to make his own health care decisions and it is unclear if/when he will regain capacity. Patient is not legally , has no children, and the parents who adopted him are . [place], decision making would fall to the patient's adoptive siblings -- Robyn and Demarco. Demarco has agreed to defer decision making to sister (Robyn). == ROBYN "MANUELA" REYNOLD (SISTER) IS THE HEALTH CARE PROXY DECISION MAKER . The patient's fiancee -- Brandy Workman - has NO decision making authority, but the siblings are including her in the conversations. == Faxed correct contact information to admissions to make changes. == Received phone call from patient's sister/HCS (Manuela) on 10/27/16. Manuela's 44 year old daughter unexpectedly 1 week prior. Manuela will not be returning to [place] for an unknown period of time, but is available via telephone at . == Goals of medical treatment: Goals remain aggressive, hopeful patient will be placed in a SNF for rehabilitation. SSI pending, difficult placement. == Encephalopathy: This has been multi-factorial and has involved the brain injury, alcohol withdrawal, infection, seizure, etc. Current encephalopathy now mostly due to brain injury, minimal neurological gains have been made. Follow-up EEG on 11/03/16 has significantly improved in comparison to prior reports. No epileptiform features were present. Patient remains on Valproate and Keppra for seizure management. 11/22/16: Patient is awake and alert. Using dry erase board to communicate, answering yes/no questions by nodding and shaking his head with greater consistency. Patient' hands in mittens, RN reports patient does try to pull out trach and peripheral IVs. == Pain: Per review of notes: Patient had history of several pain syndromes. He complained of abdominal pain for years with occasional rectal bleeding. He also complained of right ankle pain where he had surgery and achiness in multiple joints. He would use BC powders several times a day and occasionally hydrocodone. Other current sources of pain might include prolonged bedbound status, post op wound/head pain, discomfort from trach/gann/tracheostomy/ vascular access lines. 11/22/16: Patient reports pain in hands bilaterally and right chest. Orders are in place for PRN oxycodone at this time 3 doses administered in the past 24 hours. == Dyspnea: Tracheostomy to T-piece, FiO2 28% with oxygen saturation in the mid to high 90s. Follow-up chest x-ray on 11/09/16 showed right basilar patchiness consistent with probable pneumonia, likely aspiration. Sputum culture on 11/09/16 growing Serratia Marcescens. == Dysphasia: Patient unable to pass swallow evaluation, speech therapy continues to follow. Remains NPO secondary to severe cognitivecommunicative deficits. Tolerating by past feedings, Jevity 1.5 at 65ml/per hour via PEG tube == Phone call to patient's sister/HSP (Manuela) to provide an update on the patient 's clinical condition. Manuela tentatively plans to return to [place] this Tuesday11/27/16. == Palliative care will continue to follow to assist with symptom management and to further clarify goals of medical treatment as the clinical course evolves. . (Татьяна Hauser) Attestation To help prompt me to consider important information that might be impacting today's encounter and assessment, information from prior notes written by myself or my colleagues may have been "brought forward" into today's note. My signature on this note, however, is an attestation that I personally performed the exam, history, and/or decision-making noted today, and, unless otherwise indicated, the interactions with patient, family, and staff as well as the review of records all occurred today. I also attest that the listed assessment and stated plan reflect my best clinical judgment today based on the combination of historical information, prior notes, and today's exam/ interactions. When time spent is documented, it refers only to time spent today by the signer, or if indicated, combined time spent today by collaborating physician/nurse practitioner. . (Татьяна Hauser) Collaborating MD Comments . Chart reviewed. Cased discussed with palliative care A AND P MECHANIC. Above A AND P MECHANIC note reviewed and I concur. . (Hayden Oviedo MD) Татьяна Hauser Nov 29, 2016 12:34 Hayden Oviedo MD January 17, 2017 15:28
[2016-11-29] MEDS ORDERED: SENNOSIDES 8.6 MG TAB PO PRN (13:45)
[2016-11-29] MEDS ORDERED: BISACODYL 10 MG SUPP RECTAL PRN (13:45)
--- NOTE | 2016-11-29 19:51 | HHI.PR ---
Subjective Remarks 56 YOWM with Fall,ICH,ventriculostomy RF, has trach. Alert, awake, looks around No fever Tolerates TF at goal rate 65 cc /HR follows commands Trach downsized to #6 tolerates PMV, low voice quality Objective Vital Signs Vital Signs Date Time Temp Pulse Resp B/P Pulse Ox O2 Delivery O2 Flow Rate FiO2 11/29/16 16:00 96.3 72 20 116/60 96 11/29/16 12:00 97.2 68 20 107/65 96 11/29/16 09:35 94 Trach Collar 28 11/29/16 09:35 Aerosol Mask 28 11/29/16 09:00 94 Trach Collar 28 Simple Mask 11/29/16 08:00 97.0 68 20 128/73 97 11/29/16 06:50 98.6 84 20 125/88 94 11/29/16 00:45 97.7 82 20 118/80 98 11/28/16 20:24 97 Trach Collar 6.00 28 11/28/16 20:00 Blow By 6.00 28 Trach Collar Humidified I/O 11/28/16 11/28/16 11/28/16 11/29/16 11/29/16 11/29/16 07:00 15:00 23:00 07:00 15:00 23:00 Intake Total 1450 ml 0 ml 0 ml 0 ml Balance 1450 ml 0 ml 0 ml 0 ml Intake Oral 0 ml 0 ml 0 ml 0 ml IV Total 100 ml Tube Feeding 750 ml Tube Irrigant 600 ml # Voids 4 5 3 4 3 # Bowel Movements 0 0 0 0 Objective Remarks GENERAL: WBWN male, On Trach SKIN: Warm and dry. HEAD: Normocephalic. EYES: No scleral icterus. No injection or drainage. NECK: Supple, trachea midline. No JVD or lymphadenopathy. trach in place CARDIOVASCULAR: Regular rate and rhythm without murmurs, gallops, or rubs. RESPIRATORY: Breath sounds equal bilaterally. No accessory muscle use. GASTROINTESTINAL: Abdomen soft, non-tender, nondistended. PEG in place MUSCULOSKELETAL: No cyanosis, or edema. BACK: Nontender without obvious deformity. No CVA tenderness. A/P Assessment and Plan RF. s/p Trach s/P Ventriculostomy PEG placement PLAN: Aerosol nebs SQ Lovenox TF @ 65cc/HR Trach suction prn Titerate 02 to keep sat >90% DW RN daily PMV trial Murphy Cm MD Nov 29, 2016 19:51
[2016-11-30] VITALS (8 sets, daily range): BP systolic 105–135; BP diastolic 60–77; PULSE 66–86; RESP 16–22; TEMP 96.7–98.1; O2SAT 92–99
[2016-11-30] MEDS: cloNIDine HCL 0.3 MG TAB PO SCH ×3 (05:23→23:26)
[2016-11-30] MEDS: PROPRANOLOL HCL 20 MG TAB PO SCH ×4 (05:23→23:26)
[2016-11-30] MEDS: HYDROCORTISONE 1% CREAM 30 GM TOPICAL SCH ×3 (05:24→23:29)
[2016-11-30] MEDS: SODIUM CHLORIDE 0.9% FLUSH 5 ML FLUSH IVF SCH ×2 (09:00→21:00)
[2016-11-30] MEDS: amLODIPine BESYLATE 5 MG TAB PO SCH (09:00)
[2016-11-30] MEDS ORDERED: CHLORHEXIDINE GLUCONATE 4% SOLN 120 ML BTL TOPICAL ONE (09:45)
[2016-11-30] MEDS ORDERED: ceFAZolin 2 GM PREMIX 50 ML IV SCH (09:45)
[2016-11-30] MEDS ORDERED: VANCOMYCIN INJ 1,000 MG in SODIUM CHLOR 0.9% 250 ML INJ 250 ML IV SCH (09:45)
--- NOTE | 2016-11-30 10:04 | HHI.NSPN ---
(Viky Bernal) Note Status Status: Progress Note (Viky Bernal) Interval History Interval History Mr. Nixon is a 56 y/o male with TBI, he underwent a right frontotemporoparietal decompressive craniectomy with evacuation of SDH on 10/18/16. NRS was asked to evaluate for possible placement of bone flap. Mr. Nixon continues to do well, he is communicating through writing. His right flap has sunken in. (Viky Bernal) Labs, Micro, & Vital Signs Results Date Time Temp Pulse Resp B/P Pulse Ox O2 Delivery O2 Flow Rate FiO2 11/30/16 08:00 96.7 66 16 135/60 99 11/30/16 04:00 97.0 71 18 121/60 99 11/30/16 00:17 98.0 77 18 131/75 98 11/29/16 22:25 93 Trach Collar 5.00 28 11/29/16 21:44 98.0 81 18 157/87 97 11/29/16 20:51 97 Trach Collar 28 11/29/16 20:00 95 Trach Collar 28 Simple Mask 11/29/16 16:00 96.3 72 20 116/60 96 11/29/16 12:00 97.2 68 20 107/65 96 11/30/16 07:00 Intake Total 670 ml Balance 670 ml Constitutional Vital Signs Date Time Temp Pulse Resp B/P Pulse Ox O2 Delivery O2 Flow Rate FiO2 11/30/16 08:00 96.7 66 16 135/60 99 11/30/16 04:00 97.0 71 18 121/60 99 11/30/16 00:17 98.0 77 18 131/75 98 11/29/16 22:25 93 Trach Collar 5.00 28 11/29/16 21:44 98.0 81 18 157/87 97 11/29/16 20:51 97 Trach Collar 28 11/29/16 20:00 95 Trach Collar 28 Simple Mask 11/29/16 16:00 96.3 72 20 116/60 96 11/29/16 12:00 97.2 68 20 107/65 96 11/30/16 07:00 Intake Total 670 ml Balance 670 ml (Viky Bernal) Review of Systems/Exam Exam Mr Nixon is alert, pleasant and smiling, sitting up in chair. Communicates via writing. Right flap has sunken in, with surgical wound healed well. Neck: tracheostomy Cranial Nerves: Pupils 4 mm, facial motor grossly symmetric. Appears hard of hearing. Motor: moves all four extremities, with left side weakness Cerebellar: cannot assess due to clinical condition (Viky Bernal) Medications Current Medications Current Medications Medications (Trade) Dose Ordered Sig/Jony Route PRN Reason Start Time Stop Time Status Last Admin Dose Admin Miscellaneous Information 1 [id number] XX 10/11/16 13:00 10/11/16 13:00 Acetaminophen (Tylenol Supp) 650 mg Q4H PRN [place] FEVER 10/15/16 12:15 Info 1 UNSCH XX 10/17/16 11:00 IV Flush (NS Flush) 2 ml UNSCH PRN IVF FLUSH AFTER USING IV ACCESS 10/18/16 11:45 11/21/16 00:36 IV Flush (NS Flush) 2 ml BID IVF 10/18/16 21:00 11/29/16 21:00 Docusate Sodium (Colace) 100 mg BID PO 10/18/16 21:00 11/29/16 22:45 Pantoprazole Sodium (Protonix Inj) 40 mg DAILY IVP 10/19/16 09:00 11/29/16 09:10 Ondansetron HCl (Zofran Inj) 4 mg Q6H PRN IV NAUSEA OR VOMITING 10/18/16 11:45 Acetaminophen (Tylenol) 650 mg Q4H PRN PO TEMPERATURE > 101.5 F 10/18/16 11:45 11/07/16 18:32 Propranolol HCl (Inderal) 20 mg Q6HR PO 10/22/16 18:00 11/30/16 05:23 Clonidine (Catapres) 0.3 mg Q8HR PO 10/22/16 16:42 11/30/16 05:23 Folic Acid (Folate) 1 mg DAILY PO 10/25/16 09:00 11/29/16 09:10 Multivitamins (Theragran) 1 tab DAILY PO 10/25/16 09:00 11/29/16 09:10 Oxycodone HCl (Roxicodone Intensol Liq) 5 mg Q4H PRN PO pain 4-6 10/24/16 12:30 11/28/16 09:56 Oxycodone HCl (Roxicodone Intensol Liq) 10 mg Q4H PRN PO pain 7-10 10/24/16 12:30 11/21/16 03:56 Furosemide (Lasix Inj) 40 mg DAILY IV PUSH 10/26/16 09:00 11/29/16 09:10 Potassium Bicarb/ Potassium Chloride (K-Lyte Cl Eff) 25 meq DAILY TUBE 10/26/16 09:00 11/29/16 09:09 Levetriacetam (Keppra Liq) 1,500 mg Q12HR TUBE 10/27/16 21:00 11/29/16 22:45 Enoxaparin Sodium (Lovenox Inj) 40 mg Q24H SQ 11/03/16 12:00 11/29/16 11:20 Magnesium Hydroxide (Milk Of Magnesia Liq) 30 ml DAILY PRN PO Constipation 11/10/16 09:00 11/29/16 11:20 Thiamine HCl (Vitamin B1) 100 mg DAILY PO 11/11/16 09:00 11/29/16 09:10 Amlodipine Besylate (Norvasc) 5 mg DAILY PO 11/10/16 11:30 11/29/16 09:10 Lactobacillus Acidophilus 1 tab 1 tab DAILY PEG 11/11/16 09:00 11/29/16 09:10 Valproate Sodium/ Dextrose (Depacon Inj/D5W 100 ml Inj) 110 ml @ 105 mls/hr Q12H IV 11/10/16 23:00 11/29/16 22:46 Enalaprilat (Vasotec Inj) 1.25 mg Q8H PRN IV PUSH SBP>160, DBP>90 11/11/16 13:00 Hydrocortisone (Hydrocortisone 1% Cream) 1 applic Q8HR TOPICAL 11/18/16 14:15 11/30/16 05:24 Diphenhydramine HCl (Benadryl Inj) 25 mg Q12HR PRN IM RASH 11/18/16 14:15 11/26/16 00:40 Hyoscyamine Sulfate (Levsin Liq) 0.125 mg Q4H PRN PEG INCREASED SECRETIONS 11/20/16 14:00 11/29/16 01:34 Sennosides (Senokot) 8.6 mg DAILY PRN PO CONSTIPATION 11/29/16 13:45 Bisacodyl (Dulcolax Supp) 10 mg DAILY PRN RECTAL CONSTIPATION 11/29/16 13:45 11/29/16 17:52 Collagenase 1 applic 1 applic DAILY TOPICAL 11/30/16 09:00 Sodium Chloride 1,000 ml @ 100 mls/hr Q10H IV 11/30/16 09:34 UNV Cefazolin Sodium/ Dextrose 50 ml @ 150 mls/hr ONCE ONCE IV 11/30/16 09:45 11/30/16 10:04 UNV Vancomycin HCl/ Sodium Chloride (Vancomycin Inj/ NS 250 ml Inj) 250 ml @ 250 mls/hr ONCE ONCE IV 11/30/16 09:45 11/30/16 10:44 UNV Chlorhexidine Gluconate (Hibiclens 4% Top Soln) 1 applic HS TOP 11/30/16 21:00 12/01/16 21:01 UNV Chlorhexidine Gluconate (Hibiclens 4% Top Soln) 1 applic ONCE ONCE TOPICAL 11/30/16 09:45 11/30/16 09:46 UNV (Viky Bernal) Medical Decision Making MDM Remarks 56 y/o male TBI, s/p right decompressive craniectomy, bone flap has now sunken in (Viky Bernal) Plan Plan Remarks to OR tomorrow for cranioplasty NPO tonight dw sister who is POA over the phone who consents (Viky Bernal) Attending Statement The exam, history, and the medical decision-making described in the above note were completed with the assistance of the mid-level provider. I reviewed and agree with the findings presented. I attest that I had a [id number] encounter with the patient on the same day, and personally performed and documented my assessment and findings in the medical record. (Chetan Cruz MD) Viky Bernal Nov 30, 2016 10:04 Chetan Cruz MD Dec 05, 2016 18:18
[2016-11-30] MEDS: THIAMINE HCL 100 MG TAB PO SCH (10:09)
[2016-11-30] MEDS: FOLIC ACID 1 MG TAB PO SCH (10:09)
[2016-11-30] MEDS: POTASSIUM CHLORIDE 25 MEQ EFFERVESCENT TAB TUBE SCH (10:09)
[2016-11-30] MEDS: MULTIVITAMIN TAB PO SCH (10:09)
[2016-11-30] MEDS: DOCUSATE SODIUM 100 MG CAP PO SCH ×2 (10:10→23:26)
[2016-11-30] MEDS: LACTOBACILLUS ACIDOPHILUS TAB PEG SCH (10:10)
[2016-11-30] MEDS: PANTOPRAZOLE SODIUM 40 MG VIAL IVP SCH (10:11)
[2016-11-30] MEDS: FUROSEMIDE 40 MG/4 ML VIAL IV PUSH SCH (10:12)
[2016-11-30] MEDS: levETIRAcetam 500 MG/5 ML UDC TUBE SCH ×2 (10:12→23:27)
[2016-11-30] MEDS: WATER IV SCH ×4 (10:13→23:45)
[2016-11-30] MEDS: DEXTROSE 5% IV SCH ×4 (10:13→23:45)
[2016-11-30] MEDS: VALPROATE IV SCH ×4 (10:13→23:45)
--- NOTE | 2016-11-30 11:27 | HHI.PR ---
Subjective Remarks Follow-up for TBI. RN at bedside. The patient is able to speak a low voice with PMV. The patient is sitting up in a chair after working with therapy. He complains of pain in his backside. Discussed with promotions producer, Graeme added for sacral wound. Discussed with patient and RN, patient to inform staff about lower extremity pain and we'll continue to be vigilant about repositioning. The patient has a dry cough, requesting cough syrup. Patient declines incentive spirometry. Plan currently for cranioplasty tomorrow. Objective Vitals Vital Signs Date Time Temp Pulse Resp B/P Pulse Ox O2 Delivery O2 Flow Rate FiO2 11/30/16 10:59 97 Trach Collar 21 11/30/16 08:00 96.7 66 16 135/60 99 11/30/16 04:00 97.0 71 18 121/60 99 11/30/16 00:17 98.0 77 18 131/75 98 11/29/16 22:25 93 Trach Collar 5.00 28 11/29/16 21:44 98.0 81 18 157/87 97 11/29/16 20:51 97 Trach Collar 28 11/29/16 20:00 95 Trach Collar 28 Simple Mask 11/29/16 16:00 96.3 72 20 116/60 96 11/29/16 12:00 97.2 68 20 107/65 96 I/O 11/29/16 11/29/16 11/29/16 11/30/16 11/30/16 11/30/16 07:00 15:00 23:00 07:00 15:00 23:00 Intake Total 0 ml 0 ml 670 ml Balance 0 ml 0 ml 670 ml Intake Oral 0 ml 0 ml Tube Feeding 520 ml Other 150 ml # Voids 4 3 1 # Bowel Movements 0 1 Objective Remarks GENERAL: Well-developed well-nourished. In no acute distress. In bilateral wrist restraints upon arrival. SKIN: Warm and dry. Improved maculopapular rash right arm. HEENT: Previous right temporal bone flap. Pupils equal and round. Mucous membranes pink and moist. Tracheostomy in place. CARDIOVASCULAR: Regular rate and rhythm. No murmur appreciated. RESPIRATORY: No accessory muscle use. Coarse breath sounds bilaterally. GASTROINTESTINAL: Abdomen soft, non-tender, nondistended. Bowel sounds x4. PEG tube in place. MUSCULOSKELETAL: No obvious deformities. No clubbing or cyanosis. No edema. NEUROLOGICAL: Awake and alert. Moves upper and lower extremities spontaneously. Strength better in the upper extremities. Stronger on the right side. Speaks in a low voice. Also able to write for communication. Procedures 10/27/2016 Blue rhino tracheostomy 10/18/2016 Left frontal bur hole with placement of an intracranial pressure Right frontotemporoparietal decompressive craniectomy with evacuation of subdural hematoma 10/13/2016 Right frontal Anita hole with placement of a ventriculostomy catheter A/P Problem List: (1) Encephalopathy ICD Code: G93.40 Status: Acute (2) Pneumonia ICD Code: J18.9 Status: Acute (3) SAH (subarachnoid hemorrhage) ICD Code: I60.9 Status: Acute (4) Major neurocognitive disorder as late effect of traumatic brain injury with behavioral disturbance ICD Code: S06.9X9S Status: Acute (5) Traumatic brain injury ICD Code: S06.9X9A Status: Chronic (6) Subdural hemorrhage following injury ICD Code: S06.5X9A Status: Acute (7) Fracture of occipital bone of skull with loss of consciousness ICD Code: S02.119A Status: Acute (8) Hepatitis C antibody positive in blood ICD Code: R76.8 Status: Acute (9) Rash ICD Code: R21 Status: Acute Assessment and Plan Patient is a 56-year-old male who came to the hospital on 10/11/16 as a trauma patient. As per report, patient was on a ladder and fell approximately 10 feet. Bystander on the scene perform CPR for approximately 2 minutes stating the patient was blue. On EMS arrival patient is reported to have a GCS of 6, which improved at the time of ED arrival to GCS of 11. Imaging studies showed occipital fracture subdural and subarachnoid hemorrhage. The patient developed worsening agitation he was intubated and placed on mechanical ventilation. Repeat CT in 24 hours showed worsening of bilateral subdural subarachnoid hemorrhage with right temporal parietal subdural hemorrhage with 9 mL leftward midline shift. S/P Craniotomy and drain. Pt. now on tracheostomy and PEG tube placed. Care transferred to hospitalist service. Trauma, status post fall from a ladder Skull fracture, occipital Subarachnoid hemorrhage Subdural hemorrhage Status post craniotomy Encephalopathy - Rehabilitation medicine following. - Continue Keppra, valproic acid. - Seizure precaution - Continue physical therapy occupational therapy for deconditioning - Neurosurgery planning on bone flap cranioplasty Tracheostomy Pneumonia, HCAP vs. Aspiration pneumonia, possibly S. Aureus/ Anaerobes - Continued leukocytosis, trended down - Reviewed chest xray repeat 11/10/16- Right basilar patchiness consistent with probable pneumonia. Likely aspiration pneumonia. - 11/04/16 Chest x-ray showed patchy right lung base opacity nonspecific. repeat chest x-ray showed no significant changes occurred. - Continue pulmonary toileting. - Neb treatments - Pulmonology following, input appreciated. - Plan to wean off tracheostomy. Currently on trach collar FiO2 28% - Suction when necessary. Oral and trach care. - Aspiration precaution. - Received Levaquin and Flagyl IV, discontinued on 11/14/2016. - Added Levsin for secretions - Restraints if needed to protect tracheostomy if agitated - RT downsized trach, PMV trial - Guaifenesin with codeine as needed for cough HTN - Continue medication Lasix 40 mg daily, propranolol 20 mg every 6 hours, clonidine 0.3 every 8 hours, labetalol when necessary. - Vasotec PRN. Continue Amlodipine 5mg Qday. PEG in place - Continue tube feedings as ordered, Jevity - Monitor for aspiration risk Hepatitis C - Positive hep C serology - GI follow up as an outpatient. Urinary tract infection - UA positive - Culture showed Rossy albicans less than 10,000 - Switched to condom catheter. Continue betty-care. EtOH, abuse - Folic acid, thiamine Sacral ulcer - Wound care and consulted, appreciate recommendations - continue dressing changes with Santyl and continue offloading DVT prop Lovenox Bowel Regimen Alternative Code:Intubation Discharge Planning Continue PT/OT/ST. SSI pending. Difficult placement. Problem Qualifiers (1) Traumatic brain injury: Qualified Code: S06.9X6D - Traumatic brain injury, with LOC > 24 hr without return to prior conscious level, patient surviving, subsequent encounter (2) Subdural hemorrhage following injury: Qualified Code: S06.5X1A - Traumatic subdural hemorrhage with loss of consciousness of 30 minutes or less, initial encounter (3) Fracture of occipital bone of skull with loss of consciousness: Qualified Code: S02.119A - Fracture of occipital bone of skull with loss of consciousness, closed, initial encounter Montrell Springer Nov 30, 2016 11:27 Ayse Garza DO Nov 30, 2016 22:09
[2016-11-30] MEDS ORDERED: guaiFENesin/CODEINE SYRUP 200 MG/20 MG/10 ML CUP PO ONE (11:30)
[2016-11-30] MEDS ORDERED: guaiFENesin/CODEINE SYRUP 200 MG/20 MG/10 ML CUP PO PRN (11:30)
[2016-11-30] MEDS: SODIUM CHLOR 0.9% 1000 ML INJ 1,000 ML IV SCH ×2 (12:30→19:34)
[2016-11-30] MEDS: COLLAGENASE OINT 30 GM TUBE TOPICAL SCH (12:31)
[2016-11-30] MEDS: ENOXAPARIN SODIUM 40 MG/0.4 ML SYRINGE SQ SCH (12:33)
--- NOTE | 2016-11-30 15:32 | HHI.PR ---
Subjective Subjective Comments Patient awake and alert. Sitting up in bedside chair. Appears to be comfortable and no shortness of breath noted. Passey [place] valve in place. Allergies: Coded Allergies: UNOBTAINABLE (Unverified , 10/11/16) Review of Systems All other ROS: Unable to obtain Exam I&O / VS 11/29/16 11/29/16 11/30/16 15:00 23:00 07:00 Intake Total 0 ml 670 ml Balance 0 ml 670 ml Intake Oral 0 ml Tube Feeding 520 ml Other 150 ml # Voids 3 1 # Bowel Movements 1 Vital Signs Date Time Temp Pulse Resp B/P Pulse Ox O2 Delivery O2 Flow Rate FiO2 11/30/16 12:00 98.1 86 18 111/77 97 11/30/16 10:59 97 Trach Collar 21 11/30/16 08:00 96.7 66 16 135/60 99 11/30/16 07:00 97 Simple Mask 28 11/30/16 04:00 97.0 71 18 121/60 99 11/30/16 00:17 98.0 77 18 131/75 98 11/29/16 22:25 93 Trach Collar 5.00 28 11/29/16 21:44 98.0 81 18 157/87 97 11/29/16 20:51 97 Trach Collar 28 11/29/16 20:00 95 Trach Collar 28 Simple Mask 11/29/16 16:00 96.3 72 20 116/60 96 General: No acute distress, Other (Trach with Passey [place] valve in place) Respiratory: Coarse breath sounds Musculoskeletal: ROM (Grossly within normal limits) Psychiatric: Cooperative Orientation: oriented to Self Neurologic: Speech (Attempting to verbalize but speech unintelligible), Other ( Not following verbal or written commands but does follow gestured commands to move all extremities; right motor grossly stronger than left) Assessment and Plan Diagnosis: (1) Traumatic brain injury Qualified Code: S06.9X6D - Traumatic brain injury, with LOC > 24 hr without return to prior conscious level, patient surviving, subsequent encounter Assessment 1. Fall from ladder with severe TBI including occipital fracture, SDH and SAH S/ P right FTP craniectomy with evacuation of SDH now [place] 5. For cranioplasty in am per Neurosurgery 2. Trach with Passey [place] valve 3. Seizure 4. Hard of hearing 5. Pneumonia 6. Hypertension 7. Status post PEG 8. Hepatitis C 9. History of ETOH abuse Plan 1. PT/OT following for ROM. Now min assistance for bed mobility and supine to sit transfers. PT using a lift system and mod assist for standing. Continue to mobilize. Dependent for ADLs 2. Appreciate Neuropsychology followup. 3. ST following for swallow evaluation and NPO. Tolerating Passey Gary valve but speech is not intelligible. 4. Continue Multi-Podus boots to prevent foot drop 5. Will continue to follow regarding ongoing rehabilitation needs while hospitalized and at discharge in conjunction with case management. Currently SSI pending for SNF placement. Tamanna Munson MD Nov 30, 2016 15:32
--- NOTE | 2016-11-30 18:24 | HHI.PR ---
Subjective Remarks 56 YOWM with Fall,ICH,ventriculostomy RF, has trach. Alert, awake, looks around No fever Tolerates TF at goal rate 65 cc /HR tolerates PMV, low voice quality Objective Vital Signs Vital Signs Date Time Temp Pulse Resp B/P Pulse Ox O2 Delivery O2 Flow Rate FiO2 11/30/16 16:00 97.3 83 18 105/62 93 11/30/16 12:00 98.1 86 18 111/77 97 11/30/16 10:59 97 Trach Collar 21 11/30/16 08:00 96.7 66 16 135/60 99 11/30/16 07:00 97 Simple Mask 28 11/30/16 04:00 97.0 71 18 121/60 99 11/30/16 00:17 98.0 77 18 131/75 98 11/29/16 22:25 93 Trach Collar 5.00 28 11/29/16 21:44 98.0 81 18 157/87 97 11/29/16 20:51 97 Trach Collar 28 11/29/16 20:00 95 Trach Collar 28 Simple Mask I/O 11/29/16 11/29/16 11/29/16 11/30/16 11/30/16 11/30/16 07:00 15:00 23:00 07:00 15:00 23:00 Intake Total 0 ml 0 ml 670 ml Balance 0 ml 0 ml 670 ml Intake Oral 0 ml 0 ml Tube Feeding 520 ml Other 150 ml # Voids 4 3 1 2 # Bowel Movements 0 1 0 Objective Remarks GENERAL: WBWN male, On Trach SKIN: Warm and dry. HEAD: Normocephalic. EYES: No scleral icterus. No injection or drainage. NECK: Supple, trachea midline. No JVD or lymphadenopathy. trach in place CARDIOVASCULAR: Regular rate and rhythm without murmurs, gallops, or rubs. RESPIRATORY: Breath sounds equal bilaterally. No accessory muscle use. GASTROINTESTINAL: Abdomen soft, non-tender, nondistended. PEG in place MUSCULOSKELETAL: No cyanosis, or edema. BACK: Nontender without obvious deformity. No CVA tenderness. A/P Assessment and Plan RF. s/p Trach s/P Ventriculostomy PEG placement PLAN: Aerosol nebs SQ Lovenox TF @ 65cc/HR Trach suction prn Titerate 02 to keep sat >90% daily PMV trial TRUST MANAGER ASSISTANT Murphy Gaona MD Nov 30, 2016 18:24
[2016-11-30] MEDS: CHLORHEXIDINE GLUCONATE 4% SOLN 120 ML BTL TOP SCH (21:00)
[2016-11-30] MEDS: oxyCODONE HCL ORAL CONC 20 MG/ML SYRINGE PO PRN (23:39)
[2016-12-01] VITALS: BP 128/68; PULSE 69; RESP 22; TEMP 97.1; O2SAT 99
[2016-12-01 04:00] VITALS: BP 112/62; PULSE 64; RESP 20; TEMP 96.8; O2SAT 99
[2016-12-01] MEDS: SODIUM CHLOR 0.9% 1000 ML INJ 1,000 ML IV SCH ×2 (04:52→15:34)
[2016-12-01] MEDS: PROPRANOLOL HCL 20 MG TAB PO SCH ×3 (05:59→18:00)
[2016-12-01] MEDS: cloNIDine HCL 0.3 MG TAB PO SCH ×3 (05:59→22:00)
[2016-12-01] MEDS: HYDROCORTISONE 1% CREAM 30 GM TOPICAL SCH ×3 (06:00→22:00)
[2016-12-01] MEDS ORDERED: GELFOAM SIZE 100 ONE (07:24)
[2016-12-01] MEDS ORDERED: THROMBIN (TOPICAL) 5,000 UNIT VIAL ONE (07:24)
[2016-12-01] MEDS ORDERED: GENTAMICIN SULFATE 80 MG/2 ML VIAL ONE (07:24)
[2016-12-01 08:00] VITALS: BP 130/61; PULSE 60; RESP 16; TEMP 96.8; O2SAT 99
[2016-12-01] MEDS: COLLAGENASE OINT 30 GM TUBE TOPICAL SCH (09:00)
[2016-12-01] MEDS: PANTOPRAZOLE SODIUM 40 MG VIAL IVP SCH (09:04)
[2016-12-01] MEDS: LACTOBACILLUS ACIDOPHILUS TAB PEG SCH (09:05)
[2016-12-01] MEDS: FUROSEMIDE 40 MG/4 ML VIAL IV PUSH SCH (09:05)
[2016-12-01] MEDS: MULTIVITAMIN TAB PO SCH (09:05)
[2016-12-01] MEDS: levETIRAcetam 500 MG/5 ML UDC TUBE SCH (09:05)
[2016-12-01] MEDS: DOCUSATE SODIUM 100 MG CAP PO SCH ×2 (09:06→21:00)
[2016-12-01] MEDS: FOLIC ACID 1 MG TAB PO SCH (09:06)
[2016-12-01] MEDS: POTASSIUM CHLORIDE 25 MEQ EFFERVESCENT TAB TUBE SCH (09:06)
[2016-12-01] MEDS: THIAMINE HCL 100 MG TAB PO SCH (09:06)
[2016-12-01] MEDS: amLODIPine BESYLATE 5 MG TAB PO SCH (09:06)
--- NOTE | 2016-12-01 10:27 | HHI.PR ---
Subjective Remarks Follow-up for TBI. Patient is doing well. No acute concerns. He is hard of hearing. Going for bone flap surgery today. Objective Vitals Vital Signs Date Time Temp Pulse Resp B/P Pulse Ox O2 Delivery O2 Flow Rate FiO2 12/01/16 08:00 96.8 60 16 130/61 99 12/01/16 04:00 96.8 64 20 112/62 99 12/01/16 00:15 Trach Collar 12/01/16 00:00 97.1 69 22 128/68 99 11/30/16 22:35 95 Trach Collar 3.00 28 11/30/16 20:00 97.7 71 22 108/66 92 11/30/16 16:00 97.3 83 18 105/62 93 11/30/16 12:00 98.1 86 18 111/77 97 11/30/16 10:59 97 Trach Collar 21 I/O 11/30/16 11/30/16 11/30/16 12/01/16 12/01/16 12/01/16 07:00 15:00 23:00 07:00 15:00 23:00 Intake Total 670 ml Output Total 100 ml Balance 670 ml -100 ml Tube Feeding 520 ml Other 150 ml Output Urine Total 100 ml # Voids 2 # Bowel Movements 0 Imaging Last Impressions Chest X-Ray 11/09/16 0000 Signed Impressions: Service Date/Time: Wednesday, November 09, 2016 17:22 - CONCLUSION: Right basilar patchiness consistent with probable pneumonia. Clinical correlation is recommended. Jose James MD Lower Extremity Ultrasound 10/27/16 0000 Signed Impressions: Service Date/Time: Thursday, October 27, 2016 10:13 - CONCLUSION: No DVT either lower extremity. 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 MD Head CT 10/23/16 0000 Signed Impressions: Service Date/Time: Sunday, October 23, 2016 11:21 - CONCLUSION: 1. Examination quality is degraded by motion artifact. There is decreased midline shift, currently measuring 3 mm compared to 6 mm on the prior study. 2. There are persistent hemorrhagic contusions in the right frontal lobe but they are less well-visualized today either related to interval improvement or related to motion artifact. Red Arenas MD Chest CT 10/23/16 0000 Signed Impressions: Service Date/Time: Sunday, October 23, 2016 11:24 - CONCLUSION: 1. Airspace consolidation within the left upper lobe. This could represent an infectious process. 2. Small bilateral pleural effusions with associated compressive atelectasis in the lower lobes. Red Arenas MD Abdomen/Pelvis CT 10/23/16 0000 Signed Impressions: Service Date/Time: Sunday, October 23, 2016 11:27 - CONCLUSION: 1. No acute finding is identified within the abdomen or pelvis. 2. Anasarca. 3. Stable 7 mm nodule on the left adrenal gland. Small size favors a benign process but is incompletely characterized on this examination. Red Arenas MD Neck CTA 10/12/16 0000 Signed Impressions: Service Date/Time: Wednesday, October 12, 2016 09:27 - CONCLUSION: Mild atherosclerotic changes in the proximal portions of both internal carotid arteries but no significant stenosis. Dez Petersen MD Head CTA 10/12/16 0000 Signed Impressions: Service Date/Time: Wednesday, October 12, 2016 09:27 - CONCLUSION: No evidence of acute vascular injury Red Hoffman MD Pelvis X-Ray 10/11/16 1213 Signed Impressions: Service Date/Time: Tuesday, October 11, 2016 12:02 - CONCLUSION: Satisfactory trauma pelvis appearance. Red Hoffman MD Cervical Spine CT 10/11/16 1213 Signed Impressions: Service Date/Time: Tuesday, October 11, 2016 12:19 - CONCLUSION: Occipital skull fracture. No evidence of acute traumatic injury in the cervical spine Red Hoffman MD Objective Remarks GENERAL: Alert, NAD. Opens eyes, mouths words, nods, moves upper and lower ext. Better movement with upper ext. SKIN: Warm and dry. HEAD: Normocephalic. EYES: No scleral icterus. No injection or drainage. NECK: Supple, trachea midline. No JVD or lymphadenopathy. CARDIOVASCULAR: Regular rate and rhythm without murmurs, gallops, or rubs. RESPIRATORY: Coarse breath sounds with scattered rhonchi. GASTROINTESTINAL: Abdomen soft, non-tender, nondistended. MUSCULOSKELETAL: No cyanosis, or edema. BACK: Nontender without obvious deformity. No CVA tenderness. Procedures 10/27/2016 Blue rhino tracheostomy 10/18/2016 Left frontal bur hole with placement of an intracranial pressure Right frontotemporoparietal decompressive craniectomy with evacuation of subdural hematoma 10/13/2016 Right frontal [place] hole with placement of a ventriculostomy catheter A/P Problem List: (1) Encephalopathy ICD Code: G93.40 Status: Acute (2) Pneumonia ICD Code: J18.9 Status: Acute (3) SAH (subarachnoid hemorrhage) ICD Code: I60.9 Status: Acute (4) Major neurocognitive disorder as late effect of traumatic brain injury with behavioral disturbance ICD Code: S06.9X9S Status: Acute (5) Traumatic brain injury ICD Code: S06.9X9A Status: Chronic (6) Subdural hemorrhage following injury ICD Code: S06.5X9A Status: Acute (7) Fracture of occipital bone of skull with loss of consciousness ICD Code: S02.119A Status: Acute (8) Hepatitis C antibody positive in blood ICD Code: R76.8 Status: Acute (9) Rash ICD Code: R21 Status: Acute Assessment and Plan Patient is a 56-year-old male who came to the hospital on 10/11/16 as a trauma patient. As per report, patient was on a ladder and fell approximately 10 feet. Bystander on the scene perform CPR for approximately 2 minutes stating the patient was blue. On EMS arrival patient is reported to have a GCS of 6, which improved at the time of ED arrival to GCS of 11. Imaging studies showed occipital fracture subdural and subarachnoid hemorrhage. The patient developed worsening agitation he was intubated and placed on mechanical ventilation. Repeat CT in 24 hours showed worsening of bilateral subdural subarachnoid hemorrhage with right temporal parietal subdural hemorrhage with 9 mL leftward midline shift. S/P Craniotomy and drain. Pt. now on tracheostomy and PEG tube placed. Consulted for transfer of care. Trauma, status post fall from a ladder Skull fracture, occipital Subarachnoid hemorrhage Subdural hemorrhage Status post craniotomy Encephalopathy - Rehabilitation medicine following. - Continue Keppra, valproic acid. - Seizure precaution - Continue physical therapy occupational therapy for deconditioning - Contacted Neurosurgery [facility]OR regarding bone flap - surgery on 12/01/2016. - Will discuss with Neurosurgery regarding hearing loss and whether it is related to TBI. If needed, we will consult ENT. Tracheostomy Pneumonia, HCAP vs. Aspiration pneumonia, possibly S. Aureus/ Anaerobes - Leukocytosis continues WBC 13.0 --> 14.5 - Reviewed chest xray repeat 11/10/16- Right basilar patchiness consistent with probable pneumonia. Likely aspiration pneumonia. - 11/04/16 Chest x-ray showed patchy right lung base opacity nonspecific. repeat chest x-ray showed no significant changes occurred. - Continue pulmonary toileting. - Neb treatments - Pulmonology following input appreciated. - Plan to wean off tracheostomy. Currently on trach collar FiO2 28% - Suction when necessary. Oral and trach care. - Aspiration precaution. - Received Levaquin and Flagyl IV, discontinued on 11/14/2016. - RT to downsize trach today, PMV trial. HTN - Continue medication Lasix 40 mg daily, propranolol 20 mg every 6 hours, clonidine 0.3 every 8 hours, labetalol when necessary. - Vasotec PRN. Continue Amlodipine 5mg Qday. PEG in place - Continue tube feedings as ordered Jevity - Monitor for aspiration risk Diarrhea - On the maylin shield - Hold off bowel regimen. - C. difficile negative Hepatitis C - Positive hep C serology - GI follow up as an outpatient. Urinary tract infection - UA positive - Culture showed Rossy albicans less than 10,000 - Switched to condom catheter. Continue betty-care. EtOH, abuse - Folic acid, thiamine DVT prop Lovenox Alternative Code:Intubation Discharge Planning Continue PT/OT/ST. SSI pending. Difficult placement. Problem Qualifiers (1) Traumatic brain injury: Qualified Code: S06.9X6D - Traumatic brain injury, with LOC > 24 hr without return to prior conscious level, patient surviving, subsequent encounter (2) Subdural hemorrhage following injury: Qualified Code: S06.5X1A - Traumatic subdural hemorrhage with loss of consciousness of 30 minutes or less, initial encounter (3) Fracture of occipital bone of skull with loss of consciousness: Qualified Code: S02.119A - Fracture of occipital bone of skull with loss of consciousness, closed, initial encounter Ayse Garza DO Dec 01, 2016 10:27
[2016-12-01] MEDS: DEXTROSE 5% IV SCH ×4 (11:00→23:00)
[2016-12-01] MEDS: WATER IV SCH ×4 (11:00→23:00)
[2016-12-01] MEDS: VALPROATE IV SCH ×4 (11:00→23:00)
[2016-12-01] MEDS ORDERED: METOPROLOL TARTRATE 25 MG TAB PO PRN (11:15)
[2016-12-01] MEDS ORDERED: SODIUM CHLORID 0.9% 500 ML IV PRN (11:15)
[2016-12-01] MEDS ORDERED: CHLORHEXIDINE GLUCONATE 2 % 1 PACK (2 CLOTHS) TOPICAL PRN (11:15)
[2016-12-01] MEDS ORDERED: LACTATED RINGER'S 1000 ML IV PRN (11:15)
[2016-12-01] MEDS ORDERED: INSULIN HUMAN REGULAR 1,000 UNITS/10 ML VIAL SQ PRN (11:15)
[2016-12-01] MEDS ORDERED: POVIDONE IODINE 5% (ANTISEPSIS KIT) 4 APPLICATIONS EACH NARE PRN (11:15)
[2016-12-01 11:50] VITALS: O2SAT 99
[2016-12-01 12:00] VITALS: BP 140/83; PULSE 61; RESP 18; TEMP 96.2; O2SAT 98
[2016-12-01] MEDS ORDERED: LACTATED RINGER'S 1000 ML INJ 1,000 ML IV ONE (12:00)
[2016-12-01] MEDS ORDERED: ePHEDrine/NS 25 MG/5 ML SYR IV ONE (12:00)
[2016-12-01] MEDS ORDERED: PHENYLEPH/NS 1000 MCG/10 ML SYR IV ONE (12:00)
[2016-12-01] MEDS ORDERED: NEOSTIGMINE 3 MG/3 ML SYR IV ONE (12:00)
[2016-12-01] MEDS ORDERED: PROPOFOL 200 MG/20 ML AMP IV ONE (12:00)
[2016-12-01] MEDS ORDERED: ONDANSETRON HCL 4 MG/2 ML VIAL IV PUSH ONE (12:00)
[2016-12-01] MEDS: ENOXAPARIN SODIUM 40 MG/0.4 ML SYRINGE SQ SCH (12:00)
[2016-12-01] MEDS ORDERED: LIDOCAINE 1%/EPINEPHrine 1:100,000 SOLN 20 ML VIAL ONE (12:35)
[2016-12-01] MEDS ORDERED: ceFAZolin INJ 1,000 MG VIAL ONE (12:35)
[2016-12-01] MEDS ORDERED: VANCOMYCIN HCL 1000 MG VIAL ONE (12:35)
[2016-12-01] MEDS ORDERED: MIDAZOLAM HCL 2 MG/2 ML VIAL ONE (12:43)
[2016-12-01] MEDS ORDERED: ACETAMINOPHEN 1000 MG/100 ML VIAL IV ONE (12:43)
[2016-12-01] MEDS ORDERED: fentaNYL CITRATE 250 MCG/5 ML AMP ONE (12:43)
[2016-12-01] MEDS ORDERED: SODIUM CHLORIDE 0.9% FLUSH 5 ML FLUSH IVF PRN (13:30)
[2016-12-01] MEDS ORDERED: MORPHINE SULFATE 4 MG/ML INJ IV PUSH PRN (13:30)
[2016-12-01] MEDS ORDERED: ACETAMINOPHEN/HYDROcodone 325 MG/10 MG TAB PO PRN (13:30)
[2016-12-01] MEDS ORDERED: MAGNESIUM SULFATE INJ 4 GM in SODIUM CHLORIDE 0.9% INJ 100 ML IV PRN (13:30)
[2016-12-01] MEDS ORDERED: CALCIUM GLUCONATE 10% 1 GM/10 ML VIAL IV PRN (13:30)
[2016-12-01] MEDS ORDERED: ONDANSETRON HCL 4 MG/2 ML VIAL IV PRN (13:30)
[2016-12-01] MEDS ORDERED: BISACODYL 10 MG SUPP RECTAL PRN (13:30)
[2016-12-01] MEDS ORDERED: ACETAMINOPHEN 325 MG TAB PO PRN (13:30)
[2016-12-01] MEDS ORDERED: POTASSIUM CHLOR 20 MEQ PREMIX 100 ML IV PRN (13:30)
[2016-12-01] MEDS ORDERED: MANNITOL 12.5 GM/50 ML VIAL IV ONE (14:07)
[2016-12-01] MEDS ORDERED: GELFOAM SIZE 100 OTHER ONE (14:30)
[2016-12-01] MEDS ORDERED: *RESP: ALBUTEROL 2.5 MG/3 ML NEB (PRN) PERIprocedural Use ONLY NEB ONE (15:09)
[2016-12-01] MEDS ORDERED: *morphine SULFATE 8 MG/ML PERIprocedure ONLY ONE ×2 (15:36→19:53)
--- NOTE | 2016-12-01 16:05 | PD.OP ---
Operative Report Date of Surgery: Dec 01, 2016 Preoperative Diagnosis: Trauma alert. Cranial skull defect Postoperative Diagnosis: Trauma alert. Cranial skull defect Procedure: Right frontotemporalparietal cranioplasty with replacement of bone flap ( greater than 10cm) Anesthesia: general Surgeon: Chetan Cruz Bullet Assembly Press Setter Operator(s): Yu Patiño Operation and Findings: NDICATIONS FOR THE PROCEDURE Mr Nixon is a 56 year ols adult male who was brought to [facility] as a trauma alert with a severe traumatic brain injury He was managed iinitially in a conservative fashion with a ventriculostomy catheter. He deteriorated. Follow up CT of the brain showed an increasing right acute subdural hematoma with mass effect and midline shift. and underwent a surgical decompression His neurological condition had improved. He had a large craniectomy defect and symptoms consistent with post trephination. A cranioplasty was indicated as recommended by the [employer] [place] [employer] in an attempt to save the patient's life DETAILS OF THE SURGICAL PROCEDURE The patient was endotracheally intubated and mechanically ventilated. A Estrella catheter, bilateral RITCHIE hose and sequential compression devices were placed and kept throughout the procedure. The patient was positioned supine on a 3080 table over a soft mattress. The head was placed on a gel doughnut. All pressure points were carefully padded with egg crate mattress. The eyes were tapped shut after ointment was applied by the anesthesiologist to prevent corneal abrasion. A Lennie hugger was placed over the exposed lower body to maintain control of the core body temperature. The old incision was marked and infiltrated with 1% lidocaine with epinephrine 1:100, 000 dilution. The skin incision was made with a #10 blade. Small cranial bleeders were controlled with the bipolar and Edward clips were applied to the scalp edges. Then, the scalp flap was carefully elevated and retracted anteriorly, exposing the edges of the craniectomy defect. Hemostasis was secured and the incision was irrigated with a large amount of antibiotic solution. Then, the scalp was covered with a moist Ray-Sonya soaked in antibiotic solution and fishhooks were applied to the incision. There was an area of dural defect which was reconstructed using a piece of Duragen. The patient's craniotomy flap was carefully washed with antibiotic solution and a reconstructive cranioplasty was performed by carefully placing autologous bone carefully secured using Titanium plates and screws. A solid placement of the bone was achieved with good very cosmetic result. The incision was thoroughly irrigated with antibiotic solution. The closure was then performed in layers. The temporalis fascia was closed with interrupted 0 Vicryl sutures. The galea was closed with interrupted 3-0 Vicryl sutures. Mal were applied to the skin. A 7 mm Amos-Mohan drain was left in the subgaleal space and externalized through the a separate stab incision and secured with 3-0 nylon. A sterile dressing was placed. At the end of the procedure the sponge, needle and instrument counts were all correct. Estimated blood loss was 50 cc. No blood transfusion was given. No intraoperative complications occurred. The patient received prophylactic antibiotics. The patient was then transferred to the recovery room in stable condition. Chetan Cruz MD Dec 01, 2016 16:05
[2016-12-01] MEDS: NS + KCL 20 MEQ INJ 1,000 ML IV SCH (16:17)
[2016-12-01] MEDS: ceFAZolin 2 GM PREMIX 50 ML IV SCH (18:00)
[2016-12-01] MEDS: levETIRAcetam INJ 500 MG in SODIUM CHLORIDE 0.9% INJ 100 ML IV SCH (21:00)
[2016-12-01] MEDS: SODIUM CHLORIDE 0.9% FLUSH 5 ML FLUSH IVF SCH (21:00)
[2016-12-01] MEDS: CHLORHEXIDINE GLUCONATE 4% SOLN 120 ML BTL TOP SCH (21:00)
[2016-12-02] MEDS ORDERED: *morphine SULFATE 8 MG/ML PERIprocedure ONLY ONE (00:47)
[2016-12-02] MEDS: SODIUM CHLOR 0.9% 1000 ML INJ 1,000 ML IV SCH (01:34)
[2016-12-02] MEDS: ceFAZolin 2 GM PREMIX 50 ML IV SCH ×2 (02:00→09:35)
[2016-12-02] MEDS: NS + KCL 20 MEQ INJ 1,000 ML IV SCH ×3 (02:59→20:00)
[2016-12-02 05:45] LABS: AUTOMATED NEUTROPHIL # 6.8 TH/MM3 (1.8-7.7); BASOPHIL % 0.5 % (0.0-2.0); EOSINOPHIL % 0.2 % (0.0-4.0); HEMATOCRIT 29.6 % (39.0-51.0); HEMO FLAGS DIFF FINAL; LYMPH % 17.2 % (9.0-44.0); LYMPHOCYTE # 1.6 TH/MM3 (1.0-4.8); MEAN CELL VOLUME 93.3 FL (80.0-100.0); MEAN CORPUSCULAR HEMOGLOBIN 31.2 PG (27.0-34.0); MEAN CORPUSCULAR HGB CONC 33.4 % (32.0-36.0); MONO % 10.6 % (0.0-8.0); NEUT % 71.5 % (16.0-70.0); PLATELET COUNT 269 TH/MM3 (150-450); RED BLOOD COUNT 3.17 MIL/MM3 (4.50-5.90); RED CELL DISTRIBUTION WIDTH 15.3 % (11.6-17.2); WHITE BLOOD COUNT 9.5 TH/MM3 (4.0-11.0)
[2016-12-02] MEDS: PROPRANOLOL HCL 20 MG TAB PO SCH ×5 (06:00→23:54)
[2016-12-02] MEDS: cloNIDine HCL 0.3 MG TAB PO SCH ×3 (06:00→21:19)
[2016-12-02 06:05] LABS: BICARBONATE 31.1 MEQ/L (21.0-32.0); POTASSIUM 4.2 MEQ/L (3.5-5.1)
[2016-12-02] MEDS: SODIUM CHLORIDE 0.9% FLUSH 5 ML FLUSH IVF SCH ×2 (09:00→21:00)
[2016-12-02] MEDS: FUROSEMIDE 40 MG/4 ML VIAL IV PUSH SCH (09:00)
[2016-12-02] MEDS: levETIRAcetam INJ 500 MG in SODIUM CHLORIDE 0.9% INJ 100 ML IV SCH ×2 (09:00→21:18)
[2016-12-02] MEDS: DOCUSATE SODIUM 100 MG CAP PO SCH ×2 (09:00→21:00)
[2016-12-02] MEDS: LACTOBACILLUS ACIDOPHILUS TAB PEG SCH (09:00)
[2016-12-02] MEDS: THIAMINE HCL 100 MG TAB PO SCH (09:00)
[2016-12-02] MEDS: PANTOPRAZOLE SOD 40 MG DELAYED RELEASE TAB PO SCH (09:00)
[2016-12-02] MEDS: PANTOPRAZOLE SODIUM 40 MG VIAL IVP SCH (09:00)
[2016-12-02] MEDS: amLODIPine BESYLATE 5 MG TAB PO SCH (09:00)
[2016-12-02] MEDS: MULTIVITAMIN TAB PO SCH (09:00)
[2016-12-02] MEDS: FOLIC ACID 1 MG TAB PO SCH (09:00)
[2016-12-02] MEDS: POTASSIUM CHLORIDE 25 MEQ EFFERVESCENT TAB TUBE SCH (09:00)
[2016-12-02] MEDS ORDERED: FUROSEMIDE 20 MG/2 ML VIAL ONE (09:38)
[2016-12-02] MEDS: DEXTROSE 5% IV SCH ×4 (11:00→23:55)
[2016-12-02] MEDS: VALPROATE IV SCH ×4 (11:00→23:55)
[2016-12-02] MEDS: WATER IV SCH ×4 (11:00→23:55)
[2016-12-02] MEDS: ENOXAPARIN SODIUM 40 MG/0.4 ML SYRINGE SQ SCH (12:00)
[2016-12-02 12:21] VITALS: O2SAT 94
[2016-12-02] MEDS: RESP: ALBUTEROL 2.5 MG/IPRATROPIUM 0.5 MG NEB (PRN) NEB (12:23)
[2016-12-02] MEDS: HYDROCORTISONE 1% CREAM 30 GM TOPICAL SCH ×2 (14:00→21:19)
[2016-12-02] MEDS: COLLAGENASE OINT 30 GM TUBE TOPICAL SCH (14:15)
--- NOTE | 2016-12-02 14:21 | HHI.NSPN ---
(Viky Bernal) Note Status Status: Progress Note (Viky Bernal) Interval History Interval History Mr. Nixon is a 56 y/o male with TBI, he underwent a right frontotemporoparietal decompressive craniectomy with evacuation of SDH on 10/18/16. NRS was asked to evaluate for possible placement of bone flap. Mr. Nixon continues to do well, he is communicating through writing. His right flap has sunken in. 12/02: POD 1 s/p right cranioplasty, in PACU, doing well, surgical pain controlled (Viky Bernal) Labs, Micro, & Vital Signs Results Date Time Temp Pulse Resp B/P Pulse Ox O2 Delivery O2 Flow Rate FiO2 12/02/16 12:21 94 T-piece 3.00 28 12/02/16 12:00 99.1 97 18 121/69 93 Trach Collar 6 28 12/02/16 11:00 99 20 126/69 95 Trach Collar 6 28 12/02/16 10:00 101 20 129/71 95 Trach Collar 6 28 12/02/16 09:00 98 20 114/57 98 Trach Collar 6 28 12/02/16 08:00 97 20 116/60 98 Trach Collar 6 28 12/02/16 07:10 96 20 108/62 99 Trach Collar 6 28 12/02/16 06:13 98.5 93 20 112/58 98 Trach Collar 6 28 12/02/16 06:04 93 16 93/69 96 Trach Collar 6 28 12/02/16 05:15 98.6 91 18 107/67 96 Trach Collar 6 28 12/02/16 04:00 75 14 101/56 96 Trach Collar 6 28 12/02/16 03:04 71 12 137/70 99 Trach Collar 6 28 12/02/16 02:10 67 14 104/57 100 Trach Collar 6 28 12/02/16 01:00 71 14 100/57 99 Trach Collar 6 28 12/01/16 23:00 100 16 113/49 99 Trach Collar 6 28 12/01/16 22:00 104 16 128/65 99 Trach Collar 6 28 12/01/16 21:00 101 16 119/72 98 Trach Collar 6 28 12/01/16 20:30 102 16 122/74 97 Trach Collar 6 28 12/01/16 20:00 97.8 100 15 125/70 97 Trach Collar 6 28 12/01/16 19:30 98 16 126/71 97 Trach Collar 6 28 12/01/16 19:00 83 16 114/68 95 Trach Collar 6 28 12/01/16 18:30 77 16 114/72 95 Trach Collar 6 28 12/01/16 18:00 97.0 77 16 108/75 97 Trach Collar 6 28 12/01/16 17:30 61 16 122/71 97 Trach Collar 6 28 12/01/16 17:00 77 15 121/73 97 Trach Collar 6 28 12/01/16 16:30 81 14 120/71 95 Trach Collar 6 28 12/01/16 16:00 82 15 130/75 96 Trach Collar 6 28 12/01/16 15:45 84 15 133/72 96 Trach Collar 6 28 12/01/16 15:30 87 16 136/77 98 Trach Collar 6 28 12/01/16 15:15 92 14 139/83 98 Trach Collar 6 28 12/01/16 15:07 97.5 95 14 142/77 96 Trach Collar 6 28 12/02/16 07:00 Intake Total 3136 ml Output Total 1800 ml Balance 1336 ml Constitutional Vital Signs Date Time Temp Pulse Resp B/P Pulse Ox O2 Delivery O2 Flow Rate FiO2 12/02/16 12:21 94 T-piece 3.00 28 12/02/16 12:00 99.1 97 18 121/69 93 Trach Collar 6 28 12/02/16 11:00 99 20 126/69 95 Trach Collar 6 28 12/02/16 10:00 101 20 129/71 95 Trach Collar 6 28 12/02/16 09:00 98 20 114/57 98 Trach Collar 6 28 12/02/16 08:00 97 20 116/60 98 Trach Collar 6 28 12/02/16 07:10 96 20 108/62 99 Trach Collar 6 28 12/02/16 06:13 98.5 93 20 112/58 98 Trach Collar 6 28 12/02/16 06:04 93 16 93/69 96 Trach Collar 6 28 12/02/16 05:15 98.6 91 18 107/67 96 Trach Collar 6 28 12/02/16 04:00 75 14 101/56 96 Trach Collar 6 28 12/02/16 03:04 71 12 137/70 99 Trach Collar 6 28 12/02/16 02:10 67 14 104/57 100 Trach Collar 6 28 12/02/16 01:00 71 14 100/57 99 Trach Collar 6 28 12/01/16 23:00 100 16 113/49 99 Trach Collar 6 28 12/01/16 22:00 104 16 128/65 99 Trach Collar 6 28 12/01/16 21:00 101 16 119/72 98 Trach Collar 6 28 12/01/16 20:30 102 16 122/74 97 Trach Collar 6 28 12/01/16 20:00 97.8 100 15 125/70 97 Trach Collar 6 28 12/01/16 19:30 98 16 126/71 97 Trach Collar 6 28 12/01/16 19:00 83 16 114/68 95 Trach Collar 6 28 12/01/16 18:30 77 16 114/72 95 Trach Collar 6 28 12/01/16 18:00 97.0 77 16 108/75 97 Trach Collar 6 28 12/01/16 17:30 61 16 122/71 97 Trach Collar 6 28 12/01/16 17:00 77 15 121/73 97 Trach Collar 6 28 12/01/16 16:30 81 14 120/71 95 Trach Collar 6 28 12/01/16 16:00 82 15 130/75 96 Trach Collar 6 28 12/01/16 15:45 84 15 133/72 96 Trach Collar 6 28 12/01/16 15:30 87 16 136/77 98 Trach Collar 6 28 12/01/16 15:15 92 14 139/83 98 Trach Collar 6 28 12/01/16 15:07 97.5 95 14 142/77 96 Trach Collar 6 28 12/02/16 07:00 Intake Total 3136 ml Output Total 1800 ml Balance 1336 ml (Viky Bernal) Review of Systems/Exam Exam Mr Nixon is alert, smiling, resting comfortably in bed and watching TV. Right surgical wound is clean, covered in dry Kerlix dressing. EDY drain intact with minimal output. Neck: tracheostomy Cranial Nerves: Pupils 4 mm, facial motor grossly symmetric. Appears hard of hearing. Motor: moves all four extremities, with stable left side weakness Cerebellar: cannot assess due to clinical condition (Viky Bernal) Medications Current Medications Current Medications Medications (Trade) Dose Ordered Sig/Jony Route PRN Reason Start Time Stop Time Status Last Admin Dose Admin Miscellaneous Information 1 Q361D XX 10/11/16 13:00 10/11/16 13:00 Acetaminophen (Tylenol Supp) 650 mg Q4H PRN OR FEVER 10/15/16 12:15 Info 1 UNSCH XX 10/17/16 11:00 Propranolol HCl (Inderal) 20 mg Q6HR PO 10/22/16 18:00 12/02/16 00:00 Clonidine (Catapres) 0.3 mg Q8HR PO 10/22/16 16:42 12/01/16 22:00 Folic Acid (Folate) 1 mg DAILY PO 10/25/16 09:00 12/02/16 09:00 Multivitamins (Theragran) 1 tab DAILY PO 10/25/16 09:00 12/02/16 09:00 Oxycodone HCl (Roxicodone Intensol Liq) 10 mg Q4H PRN PO pain 7-10 10/24/16 12:30 11/21/16 03:56 Furosemide (Lasix Inj) 40 mg DAILY IV PUSH 10/26/16 09:00 12/02/16 09:00 Potassium Bicarb/ Potassium Chloride (K-Lyte Cl Eff) 25 meq DAILY TUBE 10/26/16 09:00 12/02/16 09:00 Enoxaparin Sodium (Lovenox Inj) 40 mg Q24H SQ 11/03/16 12:00 11/30/16 12:33 Magnesium Hydroxide (Milk Of Magnesia Liq) 30 ml DAILY PRN PO Constipation 11/10/16 09:00 11/29/16 11:20 Thiamine HCl (Vitamin B1) 100 mg DAILY PO 11/11/16 09:00 12/02/16 09:00 Amlodipine Besylate (Norvasc) 5 mg DAILY PO 11/10/16 11:30 12/01/16 09:06 Lactobacillus Acidophilus 1 tab 1 tab DAILY PEG 11/11/16 09:00 12/02/16 09:00 Valproate Sodium/ Dextrose (Depacon Inj/D5W 100 ml Inj) 110 ml @ 105 mls/hr Q12H IV 11/10/16 23:00 12/02/16 11:00 Enalaprilat (Vasotec Inj) 1.25 mg Q8H PRN IV PUSH SBP>160, DBP>90 11/11/16 13:00 Hydrocortisone (Hydrocortisone 1% Cream) 1 applic Q8HR TOPICAL 11/18/16 14:15 12/01/16 06:00 Diphenhydramine HCl (Benadryl Inj) 25 mg Q12HR PRN IM RASH 11/18/16 14:15 11/26/16 00:40 Hyoscyamine Sulfate (Levsin Liq) 0.125 mg Q4H PRN PEG INCREASED SECRETIONS 11/20/16 14:00 11/29/16 01:34 Sennosides (Senokot) 8.6 mg DAILY PRN PO CONSTIPATION 11/29/16 13:45 Collagenase 1 applic 1 applic DAILY TOPICAL 11/30/16 09:00 12/01/16 09:00 Sodium Chloride (NS 1000 ml Inj) 1,000 ml @ 100 mls/hr Q10H IV 11/30/16 09:34 11/30/16 12:30 Guaifenesin/ Codeine Phosphate 10 ml 10 ml Q6H PRN PO COUGH 11/30/16 11:30 Potassium Chloride/Sodium Chloride (NS + KCl 20 Meq Inj) 1,000 ml @ 100 mls/hr Q10H IV 12/01/16 14:00 12/02/16 02:59 IV Flush (NS Flush) 2 ml UNSCH PRN IVF FLUSH AFTER USING IV ACCESS 12/01/16 13:30 IV Flush 2 ml 2 ml BID IVF 12/01/16 21:00 12/02/16 09:00 Levetriacetam/ Sodium Chloride (Keppra Inj/NS Inj) 105 ml @ 400 mls/hr Q12H IV 12/01/16 21:00 12/02/16 09:00 Bisacodyl (Dulcolax Supp) 10 mg DAILY PRN RECTAL CONSTIPATION 12/01/16 13:30 Docusate Sodium (Colace) 100 mg BID PO 12/01/16 21:00 12/02/16 09:00 Pantoprazole Sodium (Protonix) 40 mg DAILY PO 12/02/16 09:00 Pantoprazole Sodium (Protonix Inj) 40 mg DAILY IVP 12/02/16 09:00 12/02/16 09:00 Ondansetron HCl (Zofran Inj) 4 mg Q6H PRN IV NAUSEA OR VOMITING 12/01/16 13:30 Calcium Gluconate 1 gm 1 gm UNSCH PRN IV SEE LABEL COMMENTS 12/01/16 13:30 Potassium Chloride 100 ml @ 50 mls/hr UNSCH PRN IV POTASSIUM LESS THAN 4 12/01/16 13:30 Magnesium Sulfate/ Sodium Chloride (Magnesium Sulfate Inj/NS Inj) 108 ml @ 108 mls/hr UNSCH PRN IV MAGNESIUM LESS THAN 2 12/01/16 13:30 Acetaminophen/ Hydrocodone Bitart ([place] 10-325 Mg) 1 tab Q4H PRN PO PAIN SCALE 1 TO 5 12/01/16 13:30 Acetaminophen/ Hydrocodone Bitart ([place] 10-325 Mg) 2 tab Q4H PRN PO PAIN SCALE 6 TO 10 12/01/16 13:30 Morphine Sulfate (Morphine Inj) 2 mg Q2H PRN IV PUSH PAIN SCALE 1 TO 6 12/01/16 13:30 Morphine Sulfate (Morphine Inj) 4 mg Q2H PRN IV PUSH PAIN SCALE 7 TO 10 12/01/16 13:30 Acetaminophen (Tylenol) 650 mg Q4H PRN PO TEMPERATURE > 101.5 F 12/01/16 13:30 (Viky Bernal) Medical Decision Making MDM Remarks 56 y/o male TBI, s/p right decompressive cranioplasty with placement of bone flap 12/01/16, doing well post-op, stable neuro exam (Viky Bernal) Plan Plan Remarks neuro stable ok to transfer to 5N restart PT, OT, ST SCDs and TEDs for dvt prophylaxis, hold lovenox, ok to restart POD 3 cont EDY drain today, (Viky Bernal) Attending Statement The exam, history, and the medical decision-making described in the above note were completed with the assistance of the mid-level provider. I reviewed and agree with the findings presented. I attest that I had a [id number] encounter with the patient on the same day, and personally performed and documented my assessment and findings in the medical record. (Chetan Cruz MD) Viky Bernal Dec 02, 2016 14:21 Chetan Cruz MD Dec 05, 2016 18:23
--- NOTE | 2016-12-02 15:06 | HHI.PR ---
Subjective Remarks Follow-up for TBI. Patient returned from PACU and doing well. However, he is somewhat agitated and pulling lines.He is requiring bilateral wrist restraints. He is able to whisper some words. Later in the day, however, per RN, patient became more agitated and required 4 point restraints. Objective Vitals Vital Signs Date Time Temp Pulse Resp B/P Pulse Ox O2 Delivery O2 Flow Rate FiO2 12/02/16 12:21 94 T-piece 3.00 28 12/02/16 12:00 99.1 97 18 121/69 93 Trach Collar 6 28 12/02/16 11:00 99 20 126/69 95 Trach Collar 6 28 12/02/16 10:00 101 20 129/71 95 Trach Collar 6 28 12/02/16 09:00 98 20 114/57 98 Trach Collar 6 28 12/02/16 08:00 97 20 116/60 98 Trach Collar 6 28 12/02/16 07:10 96 20 108/62 99 Trach Collar 6 28 12/02/16 06:13 98.5 93 20 112/58 98 Trach Collar 6 28 12/02/16 06:04 93 16 93/69 96 Trach Collar 6 28 12/02/16 05:15 98.6 91 18 107/67 96 Trach Collar 6 28 12/02/16 04:00 75 14 101/56 96 Trach Collar 6 28 12/02/16 03:04 71 12 137/70 99 Trach Collar 6 28 12/02/16 02:10 67 14 104/57 100 Trach Collar 6 28 12/02/16 01:00 71 14 100/57 99 Trach Collar 6 28 12/01/16 23:00 100 16 113/49 99 Trach Collar 6 28 12/01/16 22:00 104 16 128/65 99 Trach Collar 6 28 12/01/16 21:00 101 16 119/72 98 Trach Collar 6 28 12/01/16 20:30 102 16 122/74 97 Trach Collar 6 28 12/01/16 20:00 97.8 100 15 125/70 97 Trach Collar 6 28 12/01/16 19:30 98 16 126/71 97 Trach Collar 6 28 12/01/16 19:00 83 16 114/68 95 Trach Collar 6 28 12/01/16 18:30 77 16 114/72 95 Trach Collar 6 28 12/01/16 18:00 97.0 77 16 108/75 97 Trach Collar 6 28 12/01/16 17:30 61 16 122/71 97 Trach Collar 6 28 12/01/16 17:00 77 15 121/73 97 Trach Collar 6 28 12/01/16 16:30 81 14 120/71 95 Trach Collar 6 28 12/01/16 16:00 82 15 130/75 96 Trach Collar 6 28 12/01/16 15:45 84 15 133/72 96 Trach Collar 6 28 12/01/16 15:30 87 16 136/77 98 Trach Collar 6 28 12/01/16 15:15 92 14 139/83 98 Trach Collar 6 28 12/01/16 15:07 97.5 95 14 142/77 96 Trach Collar 6 28 I/O 12/01/16 12/01/16 12/01/16 12/02/16 12/02/16 12/02/16 07:00 15:00 23:00 07:00 15:00 23:00 Intake Total 280 ml 1224 ml 1632 ml 155 ml Output Total 100 ml 1300 ml 500 ml 445 ml Balance -100 ml 280 ml -76 ml 1132 ml -290 ml Intake Oral 280 ml 155 ml IV Total 224 ml 1371 ml Other 1000 ml 261 ml Output Urine Total 100 ml 1180 ml 450 ml 430 ml Drainage Total 60 ml 50 ml 15 ml Estimated Blood Loss 60 ml Result Diagram: 12/02/1652112/02/16521 Objective Remarks GENERAL: Alert, NAD. Opens eyes, mouths words, nods, moves upper and lower ext. Better movement with upper ext. SKIN: Warm and dry. HEAD: Normocephalic. EYES: No scleral icterus. No injection or drainage. NECK: Supple, trachea midline. No JVD or lymphadenopathy. CARDIOVASCULAR: Regular rate and rhythm without murmurs, gallops, or rubs. RESPIRATORY: Coarse breath sounds with scattered rhonchi. GASTROINTESTINAL: Abdomen soft, non-tender, nondistended. MUSCULOSKELETAL: No cyanosis, or edema. BACK: Nontender without obvious deformity. No CVA tenderness. Procedures 10/27/2016 Blue rhino tracheostomy 10/18/2016 Left frontal bur hole with placement of an intracranial pressure Right frontotemporoparietal decompressive craniectomy with evacuation of subdural hematoma 10/13/2016 Right frontal [place] hole with placement of a ventriculostomy catheter A/P Problem List: (1) Encephalopathy ICD Code: G93.40 Status: Acute (2) Pneumonia ICD Code: J18.9 Status: Acute (3) SAH (subarachnoid hemorrhage) ICD Code: I60.9 Status: Acute (4) Major neurocognitive disorder as late effect of traumatic brain injury with behavioral disturbance ICD Code: S06.9X9S Status: Acute (5) Traumatic brain injury ICD Code: S06.9X9A Status: Chronic (6) Subdural hemorrhage following injury ICD Code: S06.5X9A Status: Acute (7) Fracture of occipital bone of skull with loss of consciousness ICD Code: S02.119A Status: Acute (8) Hepatitis C antibody positive in blood ICD Code: R76.8 Status: Acute (9) Rash ICD Code: R21 Status: Acute Assessment and Plan Patient is a 56-year-old male who came to the hospital on 10/11/16 as a trauma patient. As per report, patient was on a ladder and fell approximately 10 feet. Bystander on the scene perform CPR for approximately 2 minutes stating the patient was blue. On EMS arrival patient is reported to have a GCS of 6, which improved at the time of ED arrival to GCS of 11. Imaging studies showed occipital fracture subdural and subarachnoid hemorrhage. The patient developed worsening agitation he was intubated and placed on mechanical ventilation. Repeat CT in 24 hours showed worsening of bilateral subdural subarachnoid hemorrhage with right temporal parietal subdural hemorrhage with 9 mL leftward midline shift. S/P Craniotomy and drain. Pt. now on tracheostomy and PEG tube placed. Consulted for transfer of care. Trauma, status post fall from a ladder Skull fracture, occipital Subarachnoid hemorrhage Subdural hemorrhage Status post craniotomy Encephalopathy - Rehabilitation medicine following. - Continue Keppra, valproic acid. - Seizure precaution - Continue physical therapy occupational therapy for deconditioning - Contacted Neurosurgery FUSING FURNACE LOADER regarding bone flap - surgery on 12/01/2016. - Post surgery, patient is doing well. However, somewhat agitated. - Discussed with RN - will try to minimize restraints. - Haldol PRN can be used. Also, discussed with RN regarding pain level and giving patient pain medications. Tracheostomy Pneumonia, HCAP vs. Aspiration pneumonia, possibly S. Aureus/ Anaerobes - Leukocytosis continues WBC 13.0 --> 14.5 - Reviewed chest xray repeat 11/10/16- Right basilar patchiness consistent with probable pneumonia. Likely aspiration pneumonia. - 11/04/16 Chest x-ray showed patchy right lung base opacity nonspecific. repeat chest x-ray showed no significant changes occurred. - Continue pulmonary toileting. - Neb treatments - Pulmonology following input appreciated. - Plan to wean off tracheostomy. Currently on room air. Continue PMV - Suction when necessary. Oral and trach care. - Aspiration precaution. - Received Levaquin and Flagyl IV, discontinued on 11/14/2016. HTN - Continue medication Lasix 40 mg daily, propranolol 20 mg every 6 hours, clonidine 0.3 every 8 hours, labetalol when necessary. - Vasotec PRN. Continue Amlodipine 5mg Qday. PEG in place - Continue tube feedings as ordered Jevity - Monitor for aspiration risk Diarrhea - On the maylin shield - Hold off bowel regimen. - C. difficile negative Hepatitis C - Positive hep C serology - GI follow up as an outpatient. Urinary tract infection - UA positive - Culture showed Rossy albicans less than 10,000 - Switched to condom catheter. Continue betty-care. EtOH, abuse - Folic acid, thiamine DVT prop Lovenox Alternative Code:Intubation Discharge Planning Continue PT/OT/ST. SSI pending. Difficult placement. Problem Qualifiers (1) Traumatic brain injury: Qualified Code: S06.9X6D - Traumatic brain injury, with LOC > 24 hr without return to prior conscious level, patient surviving, subsequent encounter (2) Subdural hemorrhage following injury: Qualified Code: S06.5X1A - Traumatic subdural hemorrhage with loss of consciousness of 30 minutes or less, initial encounter (3) Fracture of occipital bone of skull with loss of consciousness: Qualified Code: S02.119A - Fracture of occipital bone of skull with loss of consciousness, closed, initial encounter Ayse Garza DO Dec 02, 2016 15:06
[2016-12-02 16:39] VITALS: BP 124/75; PULSE 102; RESP 18; TEMP 97.9; O2SAT 94
[2016-12-02] MEDS: MORPHINE SULFATE 4 MG/ML INJ IV PUSH PRN (17:48)
--- NOTE | 2016-12-02 19:53 | HHI.PR ---
Subjective Remarks 56 YOWM with Fall,ICH,ventriculostomy RF, has trach. Alert, awake, looks around No fever Tolerates TF at goal rate 65 cc /HR had Crainial Flap placed On PMV Objective Vital Signs Vital Signs Date Time Temp Pulse Resp B/P Pulse Ox O2 Delivery O2 Flow Rate FiO2 12/02/16 17:57 Trach Collar 12/02/16 16:39 97.9 102 18 124/75 94 12/02/16 14:00 98.5 99 18 127/69 96 Trach Collar 6 28 12/02/16 13:00 99 18 125/67 93 Trach Collar 6 28 12/02/16 12:21 94 T-piece 3.00 28 12/02/16 12:00 99.1 97 18 121/69 93 Trach Collar 6 28 12/02/16 11:00 99 20 126/69 95 Trach Collar 6 28 12/02/16 10:00 101 20 129/71 95 Trach Collar 6 28 12/02/16 09:00 98 20 114/57 98 Trach Collar 6 28 12/02/16 08:00 97 20 116/60 98 Trach Collar 6 28 12/02/16 07:10 96 20 108/62 99 Trach Collar 6 28 12/02/16 06:13 98.5 93 20 112/58 98 Trach Collar 6 28 12/02/16 06:04 93 16 93/69 96 Trach Collar 6 28 12/02/16 05:15 98.6 91 18 107/67 96 Trach Collar 6 28 12/02/16 04:00 75 14 101/56 96 Trach Collar 6 28 12/02/16 03:04 71 12 137/70 99 Trach Collar 6 28 12/02/16 02:10 67 14 104/57 100 Trach Collar 6 28 12/02/16 01:00 71 14 100/57 99 Trach Collar 6 28 12/01/16 23:00 100 16 113/49 99 Trach Collar 6 28 12/01/16 22:00 104 16 128/65 99 Trach Collar 6 28 12/01/16 21:00 101 16 119/72 98 Trach Collar 6 28 12/01/16 20:30 102 16 122/74 97 Trach Collar 6 28 12/01/16 20:00 97.8 100 15 125/70 97 Trach Collar 6 28 I/O 4/12/17 4/12/17 12/01/16 12/02/16 12/02/16 12/02/16 07:00 15:00 23:00 07:00 15:00 23:00 Intake Total 280 ml 1224 ml 1632 ml 1797 ml 306 ml Output Total 100 ml 1300 ml 500 ml 720 ml Balance -100 ml 280 ml -76 ml 1132 ml 1077 ml 306 ml Intake Oral 280 ml 225 ml IV Total 224 ml 1371 ml 1021 ml 306 ml Other 1000 ml 261 ml 551 ml Output Urine Total 100 ml 1180 ml 450 ml 705 ml Drainage Total 60 ml 50 ml 15 ml Estimated Blood Loss 60 ml Result Diagram: 12/02/1652112/02/16521 Objective Remarks GENERAL: WBWN male, On Trach SKIN: Warm and dry. HEAD: Normocephalic. EYES: No scleral icterus. No injection or drainage. NECK: Supple, trachea midline. No JVD or lymphadenopathy. trach in place CARDIOVASCULAR: Regular rate and rhythm without murmurs, gallops, or rubs. RESPIRATORY: Breath sounds equal bilaterally. No accessory muscle use. GASTROINTESTINAL: Abdomen soft, non-tender, nondistended. PEG in place MUSCULOSKELETAL: No cyanosis, or edema. BACK: Nontender without obvious deformity. No CVA tenderness. A/P Assessment and Plan RF. s/p Trach s/P Ventriculostomy PEG placement PLAN: Aerosol nebs SQ Lovenox TF @ 65cc/HR Trach suction prn Titerate 02 to keep sat >90% Cont PMV Murphy Cm MD Dec 02, 2016 19:53
[2016-12-02 20:00] VITALS: BP 141/78; PULSE 84; RESP 20; TEMP 98.2; O2SAT 96
[2016-12-02] MEDS: ACETAMINOPHEN/HYDROcodone 325 MG/10 MG TAB PO PRN (21:19)
[2016-12-03] VITALS (7 sets, daily range): BP systolic 107–128; BP diastolic 60–79; PULSE 75–89; RESP 18–22; TEMP 97–98.7; O2SAT 92–98
[2016-12-03] MEDS: NS + KCL 20 MEQ INJ 1,000 ML IV SCH (02:29)
[2016-12-03] MEDS: cloNIDine HCL 0.3 MG TAB PO SCH ×3 (06:00→21:01)
[2016-12-03] MEDS: HYDROCORTISONE 1% CREAM 30 GM TOPICAL SCH ×3 (06:00→21:02)
[2016-12-03] MEDS: PROPRANOLOL HCL 20 MG TAB PO SCH ×4 (06:00→23:32)
[2016-12-03] MEDS: SODIUM CHLORIDE 0.9% FLUSH 5 ML FLUSH IVF SCH ×2 (09:00→21:00)
[2016-12-03] MEDS: PANTOPRAZOLE SOD 40 MG DELAYED RELEASE TAB PO SCH (09:00)
[2016-12-03] MEDS: POTASSIUM CHLORIDE 25 MEQ EFFERVESCENT TAB TUBE SCH (09:44)
[2016-12-03] MEDS: MULTIVITAMIN TAB PO SCH (09:45)
[2016-12-03] MEDS: THIAMINE HCL 100 MG TAB PO SCH (09:46)
[2016-12-03] MEDS: FOLIC ACID 1 MG TAB PO SCH (09:47)
[2016-12-03] MEDS: LACTOBACILLUS ACIDOPHILUS TAB PEG SCH (09:48)
[2016-12-03] MEDS: amLODIPine BESYLATE 5 MG TAB PO SCH (09:48)
[2016-12-03] MEDS: DOCUSATE SODIUM 100 MG CAP PO SCH ×2 (09:49→21:01)
[2016-12-03] MEDS: PANTOPRAZOLE SODIUM 40 MG VIAL IVP SCH (09:52)
[2016-12-03] MEDS: FUROSEMIDE 40 MG/4 ML VIAL IV PUSH SCH (09:53)
[2016-12-03] MEDS: levETIRAcetam INJ 500 MG in SODIUM CHLORIDE 0.9% INJ 100 ML IV SCH ×2 (09:53→21:01)
[2016-12-03] MEDS: COLLAGENASE OINT 30 GM TUBE TOPICAL SCH (09:53)
--- NOTE | 2016-12-03 10:02 | HHI.PR ---
Subjective Remarks patient is awake and alert, ff commands, made eye contact d/w staff nurse= episodes of agitation and pulled his lines Objective Vitals Vital Signs Date Time Temp Pulse Resp B/P Pulse Ox O2 Delivery O2 Flow Rate FiO2 12/03/16 08:00 97.4 75 18 107/69 96 12/03/16 04:00 97.6 83 22 109/79 96 12/03/16 00:00 98.0 79 22 112/70 93 12/02/16 20:00 98.2 84 20 141/78 96 12/02/16 17:57 Trach Collar 12/02/16 16:39 97.9 102 18 124/75 94 12/02/16 14:00 98.5 99 18 127/69 96 Trach Collar 6 28 12/02/16 13:00 99 18 125/67 93 Trach Collar 6 28 12/02/16 12:21 94 T-piece 3.00 28 12/02/16 12:00 99.1 97 18 121/69 93 Trach Collar 6 28 12/02/16 11:00 99 20 126/69 95 Trach Collar 6 28 I/O 12/02/16 12/02/16 12/02/16 12/03/16 12/03/16 12/03/16 07:00 15:00 23:00 07:00 15:00 23:00 Intake Total 1632 ml 1797 ml 306 ml Output Total 500 ml 720 ml 500 ml 310 ml Balance 1132 ml 1077 ml -194 ml -310 ml Intake Oral 225 ml IV Total 1371 ml 1021 ml 306 ml Other 261 ml 551 ml Output Urine Total 450 ml 705 ml 500 ml 300 ml Drainage Total 50 ml 15 ml 10 ml # Bowel Movements 0 0 Result Diagram: 12/02/16 0512/02/16521 Imaging Last Impressions Chest X-Ray 11/09/16 0000 Signed Impressions: Service Date/Time: Wednesday, November 09, 2016 17:22 - CONCLUSION: Right basilar patchiness consistent with probable pneumonia. Clinical correlation is recommended. Jose James MD Lower Extremity Ultrasound 10/27/16 0000 Signed Impressions: Service Date/Time: Thursday, October 27, 2016 10:13 - CONCLUSION: No DVT either lower extremity. 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 MD Head CT 10/23/16 0000 Signed Impressions: Service Date/Time: Sunday, October 23, 2016 11:21 - CONCLUSION: 1. Examination quality is degraded by motion artifact. There is decreased midline shift, currently measuring 3 mm compared to 6 mm on the prior study. 2. There are persistent hemorrhagic contusions in the right frontal lobe but they are less well-visualized today either related to interval improvement or related to motion artifact. Red Arenas MD Chest CT 10/23/16 0000 Signed Impressions: Service Date/Time: Sunday, October 23, 2016 11:24 - CONCLUSION: 1. Airspace consolidation within the left upper lobe. This could represent an infectious process. 2. Small bilateral pleural effusions with associated compressive atelectasis in the lower lobes. Red Arenas MD Abdomen/Pelvis CT 10/23/16 0000 Signed Impressions: Service Date/Time: Sunday, October 23, 2016 11:27 - CONCLUSION: 1. No acute finding is identified within the abdomen or pelvis. 2. Anasarca. 3. Stable 7 mm nodule on the left adrenal gland. Small size favors a benign process but is incompletely characterized on this examination. Red Arenas MD Neck CTA 10/12/16 0000 Signed Impressions: Service Date/Time: Wednesday, October 12, 2016 09:27 - CONCLUSION: Mild atherosclerotic changes in the proximal portions of both internal carotid arteries but no significant stenosis. Dez Petersen MD Head CTA 10/12/16 0000 Signed Impressions: Service Date/Time: Wednesday, October 12, 2016 09:27 - CONCLUSION: No evidence of acute vascular injury Red Hoffman MD Pelvis X-Ray 10/11/16 1213 Signed Impressions: Service Date/Time: Tuesday, October 11, 2016 12:02 - CONCLUSION: Satisfactory trauma pelvis appearance. Red Hoffman MD Cervical Spine CT 10/11/16 1213 Signed Impressions: Service Date/Time: Tuesday, October 11, 2016 12:19 - CONCLUSION: Occipital skull fracture. No evidence of acute traumatic injury in the cervical spine Red Hoffman MD Objective Remarks awake and alert, made eye contact, stated his name, showed 2 finger when asked to, nodded head- post op dressing with EDY bulb in place- minimal light blood anicteric, pupils equal shallow left nasolabial fold tracheostomy in place- capped since this am lungs- + breath sounds, no rales, no wheezes regular rhythm abdomen- PEG in place gann in place extremities no edema moves all extremities spontaneously, hand casing soaker strong Procedures 10/27/2016 Blue rhino tracheostomy 10/18/2016 Left frontal bur hole with placement of an intracranial pressure Right frontotemporoparietal decompressive craniectomy with evacuation of subdural hematoma 10/13/2016 Right frontal [place] hole with placement of a ventriculostomy catheter Urinary Catheter: Yes Gann insert reason: Prolonged Immobilization A/P Problem List: (1) Encephalopathy ICD Code: G93.40 Status: Acute (2) Pneumonia ICD Code: J18.9 Status: Acute (3) SAH (subarachnoid hemorrhage) ICD Code: I60.9 Status: Acute (4) Major neurocognitive disorder as late effect of traumatic brain injury with behavioral disturbance ICD Code: S06.9X9S Status: Acute (5) Traumatic brain injury ICD Code: S06.9X9A Status: Chronic (6) Subdural hemorrhage following injury ICD Code: S06.5X9A Status: Acute (7) Fracture of occipital bone of skull with loss of consciousness ICD Code: S02.119A Status: Acute (8) Hepatitis C antibody positive in blood ICD Code: R76.8 Status: Acute (9) Rash ICD Code: R21 Status: Acute Assessment and Plan Patient is a 56-year-old male who came to the hospital on 10/11/16 as a trauma patient. As per report, patient was on a ladder and fell approximately 10 feet. Bystander on the scene perform CPR for approximately 2 minutes stating the patient was blue. On EMS arrival patient is reported to have a GCS of 6, which improved at the time of ED arrival to GCS of 11. Imaging studies showed occipital fracture subdural and subarachnoid hemorrhage. The patient developed worsening agitation he was intubated and placed on mechanical ventilation. Repeat CT in 24 hours showed worsening of bilateral subdural subarachnoid hemorrhage with right temporal parietal subdural hemorrhage with 9 mL leftward midline shift. S/P Craniotomy and drain. Pt. now on tracheostomy and PEG tube placed. Consulted for transfer of care. TBI -status post fall from a ladder Skull fracture, occipital Subarachnoid hemorrhage Subdural hemorrhage Status post craniotomy S/P bone flap surgery 12/01 Encephalopathy - Rehabilitation medicine following. - Continue Keppra, valproic acid. - Seizure precaution - Continue physical therapy occupational therapy for deconditioning - Contacted Neurosurgery ELEVATOR OPERATOR FREIGHT regarding bone flap - surgery on 12/01/2016. - Post surgery, patient is doing well. However, somewhat agitated. - Discussed with RN - will try to minimize restraints 12/03- monitor - Haldol PRN can be used. Also, discussed with RN regarding pain level and giving patient pain medications. Tracheostomy- trial capping 12/03 Pneumonia, HCAP vs. Aspiration pneumonia, possibly S. Aureus/ Anaerobes - Leukocytosis continues WBC 13.0 --> 14.5 - Reviewed chest xray repeat 11/10/16- Right basilar patchiness consistent with probable pneumonia. Likely aspiration pneumonia. - 11/04/16 Chest x-ray showed patchy right lung base opacity nonspecific. repeat chest x-ray showed no significant changes occurred. - Continue pulmonary toileting. - Neb treatments - Pulmonology following input appreciated. - Suction when necessary. Oral and trach care. - Aspiration precaution. - S/P Levaquin and Flagyl IV, discontinued on 11/14/2016. HTN - Continue medication Lasix 40 mg daily, propranolol 20 mg every 6 hours, clonidine 0.3 every 8 hours, labetalol when necessary. - Vasotec PRN. Continue Amlodipine 5mg Qday. PEG in place - Continue tube feedings as ordered Jevity- tolerating well - Monitor for aspiration risk Diarrhea- no further episodes - On the maylin shield - Hold off bowel regimen. - C. difficile negative Hepatitis C - Positive hep C serology - GI follow up as an outpatient. Urinary tract infection - UA positive - Culture showed Rossy albicans less than 10,000 - gann in place- change to condome and monitor output. Continue betty-care. EtOH, abuse - Folic acid, thiamine DVT prop Lovenox- ok to restart POD 3- 415 per Neurosurgery notes Alternative Code:Intubation Discharge Planning Continue PT/OT/ST- daily SSI pending. Difficult placement. Problem Qualifiers (1) Traumatic brain injury: Qualified Code: S06.9X6D - Traumatic brain injury, with LOC > 24 hr without return to prior conscious level, patient surviving, subsequent encounter (2) Subdural hemorrhage following injury: Qualified Code: S06.5X1A - Traumatic subdural hemorrhage with loss of consciousness of 30 minutes or less, initial encounter (3) Fracture of occipital bone of skull with loss of consciousness: Qualified Code: S02.119A - Fracture of occipital bone of skull with loss of consciousness, closed, initial encounter Nathaniel Montanez MD Dec 03, 2016 10:01
--- NOTE | 2016-12-03 12:25 | HHI.NSPN ---
(Viky Bernal) Note Status Status: Progress Note (Viky Bernal) Interval History Interval History Mr. Nixon is a 56 y/o male with TBI, he underwent a right frontotemporoparietal decompressive craniectomy with evacuation of SDH on 10/18/16. NRS was asked to evaluate for possible placement of bone flap. Mr. Nixon continues to do well, he is communicating through writing. His right flap has sunken in. 12/02: POD 1 s/p right cranioplasty, in PACU, doing well, surgical pain controlled 12/03: POD 2, neuro stable overnight, minimal EDY drainage output. (Viky Beranl) Labs, Micro, & Vital Signs Results Date Time Temp Pulse Resp B/P Pulse Ox O2 Delivery O2 Flow Rate FiO2 12/03/16 08:00 97.4 75 18 107/69 96 12/03/16 04:00 97.6 83 22 109/79 96 12/03/16 00:00 98.0 79 22 112/70 93 12/02/16 20:00 98.2 84 20 141/78 96 12/02/16 17:57 Trach Collar 12/02/16 16:39 97.9 102 18 124/75 94 12/02/16 14:00 98.5 99 18 127/69 96 Trach Collar 6 28 12/02/16 13:00 99 18 125/67 93 Trach Collar 6 28 12/03/16 07:00 Intake Total 2103 ml Output Total 1530 ml Balance 573 ml Constitutional Vital Signs Date Time Temp Pulse Resp B/P Pulse Ox O2 Delivery O2 Flow Rate FiO2 12/03/16 08:00 97.4 75 18 107/69 96 12/03/16 04:00 97.6 83 22 109/79 96 12/03/16 00:00 98.0 79 22 112/70 93 12/02/16 20:00 98.2 84 20 141/78 96 12/02/16 17:57 Trach Collar 12/02/16 16:39 97.9 102 18 124/75 94 12/02/16 14:00 98.5 99 18 127/69 96 Trach Collar 6 28 12/02/16 13:00 99 18 125/67 93 Trach Collar 6 28 12/03/16 07:00 Intake Total 2103 ml Output Total 1530 ml Balance 573 ml (Viky Bernal) Review of Systems/Exam Exam Mr Nixon is alert, smiling Right surgical wound is clean, covered in dry Kerlix dressing. EDY drain intact with minimal output. Neck: tracheostomy Cranial Nerves: Pupils 4 mm, facial motor grossly symmetric. Appears hard of hearing. Motor: moves all four extremities, with stable left side weakness Cerebellar: cannot assess due to clinical condition (Viky Bernal) Medical Decision Making MDM Remarks 56 y/o male TBI, s/p right decompressive cranioplasty with placement of bone flap 12/01/16, doing well post-op, stable neuro exam (Viky Bernal) Plan Plan Remarks neuro stable cont PT, OT, ST, rehab efforts SCDs and TEDs for dvt prophylaxis, hold lovenox, ok to restart POD 3 dc EDY drain today, (Viky Bernal) Attending Statement The exam, history, and the medical decision-making described in the above note were completed with the assistance of the mid-level provider. I reviewed and agree with the findings presented. I attest that I had a [id number] encounter with the patient on the same day, and personally performed and documented my assessment and findings in the medical record. (Chetan Cruz MD) Viky Bernal Dec 03, 2016 12:25 Chetan Cruz MD Dec 05, 2016 18:28
[2016-12-03] MEDS: WATER IV SCH ×4 (12:41→23:32)
[2016-12-03] MEDS: DEXTROSE 5% IV SCH ×4 (12:41→23:32)
[2016-12-03] MEDS: VALPROATE IV SCH ×4 (12:41→23:32)
[2016-12-03] MEDS: MORPHINE SULFATE 4 MG/ML INJ IV PUSH PRN ×2 (12:55→15:54)
--- NOTE | 2016-12-03 17:32 | HHI.HCPN ---
Reason for visit a. To assist with evaluation and management of symptoms including: encephalopathy; weakness; dysphagia, pain b. To assist medical decision maker(s) with: better understanding of current medical conditions; weighing benefits/burdens of medical treatment options; making medical treatment decisions. . (Татьяна Hauser) Subjective/Interval History Patient seen and assessed in room 1535. Patient's family also present. Patient is awake and alert, pleasant. Patient having difficulty hearing. Able to communicate by writing on a dry erase board. Telling jokes/puns, communicating complex thoughts. Tracheostomy to trach collar, FiO2 28% with saturation of 95%. Follow-up chest x-ray on 11/09/16 showed right basilar patchiness consistent with probable pneumonia, likely aspiration. Patient tolerating artificial nutrition, Jevity 1.5 at 65ml/hr continuously. Speech therapy continues to follow patient. Patient remains NPO. Albumin level of 3.2 on admission, decreased to 1.6. Afebrile. Hemodynamically stable. Leukocytosis has resolved. Sputum culture on 11/09/16 growing Serratia Marcescens. Urine culture on 11/07/16 growing Rossy Albicans. Patient reporting pain and lower back and buttocks, rated 7 out of 10. Orders are in place for PRN De Berry and morphine. 24 hour dosing: De Berry ([id number]) - 2 tablets 1, De Berry ([id number]) - 1 tablets 1, Morphine 4 mg IV 3 . Family/friend interactions Spoke to patient's sister and patient's fianc separately. An update was provided on the patient's clinical condition to both parties. . (Татьяна Hauser) Advance Directives Living Will: Never completed Health Care Surrogate: Never completed Durable Power of Cotton Program Technician: Never completed (Татьяна Hauser) Advance Directive Specifics Date completed: Advanced directives were never completed. . Health Care Surrogate(s): There is no written designation of a health care surrogate. . Documented care wishes: No written documentation of health care preferences/goals/wishes . (Татьяна Hauser) Objective Vital Signs Date Time Temp Pulse Resp B/P Pulse Ox O2 Delivery O2 Flow Rate FiO2 12/03/16 13:34 97.0 88 18 118/60 12/03/16 09:53 Trach Collar 6.00 28 12/03/16 08:00 97.4 75 18 107/69 96 12/03/16 04:00 97.6 83 22 109/79 96 12/03/16 00:00 98.0 79 22 112/70 93 12/02/16 20:00 98.2 84 20 141/78 96 12/02/16 17:57 Trach Collar Intake & Output 12/03/16 12/03/16 07:00 19:00 Intake Total 306 ml 300 ml Output Total 810 ml 2000 ml Balance -504 ml -1700 ml IV Total 306 ml 300 ml Output Urine Total 800 ml 2000 ml Drainage Total 10 ml # Bowel Movements 0 . Physical Exam CONSTITUTIONAL/GENERAL: This is an adequately nourished patient with trach with Passy-Gary valve and PEG s/p TBI. TUBES/LINES/DRAINS: Tracheostomy; PIV x 1, SCDs, PEG, Podus. SKIN: Rash on BUE, multiple areas of breakdown HEAD: S/p right cranioplasty on 12/02/16-surgical incision without signs of infection EYES: Pupils equal, reactive and sluggish. No scleral icterus. No injection or drainage. Fundi not examined. ENT: Nose without bleeding or purulent drainage. NECK: Trachea midline. CARDIOVASCULAR: Heart rate and rhythm regular. No murmurs, gallops, or rubs. RESPIRATORY/CHEST: Tracheostomy to trach collar, FiO2 28% with saturation of 95% . Respirations clear, equal and unlabored GASTROINTESTINAL: Abdomen rounded. BS active x 4. Tolerating tube feedings. GENITOURINARY: Without palpable bladder distension MUSCULOSKELETAL: Extremities without clubbing, cyanosis. No mottling or clubbing. NEUROLOGICAL: Alert and awake. Communicating with dry Visible Pathse board. Telling jokes. PSYCHIATRIC: Does not appear to be experiencing anxiety/agitation. . (Татьяна Hauser) Diagnostic Tests Laboratory Laboratory Tests Test 12/02/16 05:22 White Blood Count 9.5 TH/MM3 (4.0-11.0) Red Blood Count 3.17 MIL/MM3 (4.50-5.90) Hemoglobin 9.9 GM/DL (13.0-17.0) Hematocrit 29.6 % (39.0-51.0) Mean Corpuscular Volume 93.3 FL (80.0-100.0) Mean Corpuscular Hemoglobin 31.2 PG (27.0-34.0) Mean Corpuscular Hemoglobin 33.4 % Concent (32.0-36.0) Red Cell Distribution Width 15.3 % (11.6-17.2) Platelet Count 269 TH/MM3 (150-450) Mean Platelet Volume 7.0 FL (7.0-11.0) Neutrophils (%) (Auto) 71.5 % (16.0-70.0) Lymphocytes (%) (Auto) 17.2 % (9.0-44.0) Monocytes (%) (Auto) 10.6 % (0.0-8.0) Eosinophils (%) (Auto) 0.2 % (0.0-4.0) Basophils (%) (Auto) 0.5 % (0.0-2.0) Neutrophils # (Auto) 6.8 TH/MM3 (1.8-7.7) Lymphocytes # (Auto) 1.6 TH/MM3 (1.0-4.8) Monocytes # (Auto) 1.0 TH/MM3 (0-0.9) Eosinophils # (Auto) 0.0 TH/MM3 (0-0.4) Basophils # (Auto) 0.0 TH/MM3 (0-0.2) CBC Comment DIFF FINAL Differential Comment Sodium Level 141 MEQ/L (136-145) Potassium Level 4.2 MEQ/L (3.5-5.1) Chloride Level 106 MEQ/L (98-107) Carbon Dioxide Level 31.1 MEQ/L (21.0-32.0) Anion Gap 4 MEQ/L (5-15) Blood Urea Nitrogen 13 MG/DL (7-18) Creatinine 0.81 MG/DL (0.60-1.30) Estimat Glomerular Filtration 98 ML/MIN (>89) Rate Random Glucose 108 MG/DL (74-106) Calcium Level 8.7 MG/DL (8.5-10.1) . (Татьяна Hauser) Result Diagram: 12/02/1652112/02/16521 Procedures * [place]on hole with ICP monitor placed * Right craniectomy * Art line placement * Intubation/mechanical ventilation * Central line placement. * Tracheostomy * Peg tube . (Татьяна Hauser) Assessment and Plan Disease Oriented Problem List: (1) Traumatic brain injury (2) SAH (subarachnoid hemorrhage) (3) Subdural hemorrhage following injury (4) Fracture of occipital bone of skull with loss of consciousness (5) Encephalopathy acute (6) Alcohol dependence Comment: Long history of 12-15 drinks per day. . (7) Major neurocognitive disorder as late effect of traumatic brain injury with behavioral disturbance (8) Seizure (9) Pneumonia Comment: Probable aspiration. Blood in vomitus were in airway immediately after fall. . (10) Hepatitis C antibody positive in blood (11) Rectal bleeding Comment: Has had years of abdominal pain with intermittent rectal bleeding. Has avoided recommended work-up due to lack on insurance, lack of funds, and fear of results (per shasta). . Symptom Scale: (1) Pain 0-10 Scale: Unable to quantify Comment: Patient had history of several pain syndromes. He complained of abdominal pain for years with occasional rectal bleeding. He also complained of right ankle pain where he had surgery and achiness in multiple joints. He would use BC powders several times a day and occasionally hydrocodone. Other current sources of pain might include prolonged bedbound status, post op wound/ head pain, discomfort from trach/gann/tracheostomy/vascular access lines. 12/03: Patient reporting pain and lower back and buttocks, rated 7 out of 10. Orders are in place for PRN De Berry and morphine. 24 hour dosing: De Berry ([id number] ) - 2 tablets 1, De Berry ([id number]) - 1 tablets 1, Morphine 4 mg IV 3 (2) Encephalopathy 0-10 Scale: Unable to quantify Comment: = This has been multi-factorial and has involved the brain injury, alcohol withdrawal, infection, seizure, etc. Current encephalopathy now mostly due to brain injury, minimal neurological gains have been made. Follow-up EEG on 11/03/16 has significantly improved in comparison to prior reports. No epileptiform features were present. Patient remains on Valproate and Keppra for seizure management. = 11/22/16: Patient is awake and alert. Using dry erase board to communicate, answering yes/no questions by nodding and shaking his head with greater consistency. Patient in hands, RN reports patient does try to pull out trach and peripheral IVs. When asked if he is painful, the patient writes out "Hands hurt. Right chest hurts". When he asked to rate his pain on a scale of 0 - 10, he does not respond. . (3) Dyspnea Comment: Tracheostomy to T-piece, FiO2 28% with oxygen saturation in the mid to high 90s. Follow-up chest x-ray on 11/09/16 showed right basilar patchiness consistent with probable pneumonia, likely aspiration. Sputum culture on growing Serratia Marcescens. . (4) Dysphagia Comment: Patient tolerating bypass feedings, Jevity 1.5 at 65ml/hour via PEG tube. Speech therapy continues to follow-patient remains NPO Pertinent Non-Medical Issues Psychosocial: Mr Nixon was born in [place] to [place] citizens. His mother in childbirth and his biological father, with already 5 children to care for, put Mr Nixon up for adoption. His adoptive parents are both . One adoptive sister is . An adoptive brother lives in [place] and an adoptive sister lives in [place]. He is not in close touch with the biological family in [place]. Patient has a high school education. 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 Never . No kids. Has been with his fijessicae -- Brandy Workman -- for 8 years. They were scheduled to on 01/16/17. Spiritual: Catholic background. Uatsdin and spirituality have not played an important role in his life. Shasta appreciates carpenter wooden tank erecting visits. Legal: No advance directives. Without a designated health care surrogate, decision-making appears to fall to the majority of his siblings. Ethical issues impacting care: Patient is incapacitated to make his own health care decisions. It is unclear if/when he will regain capacity. . Important Contacts * Robyn "Manuela"reynold (sister) - heatl care proxy: or (niece's cell phone) * Brandy Workman (fiance) [phone] or [phone] * Perez "Demarco" (brother) [phone] * Robyn "Jamila" Ubaldo (niece) [phone] . 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 It is unclear if he had some sort of event causing the fall (he had vomitus and blood in his airway at time of fall) or merely fell. His injuries include occipital bone fracture, SDH, SAH. Complications include EtOH withdrawal, aspiration pneumonia. He has had high ICPs and ultimately underwent right sided craniectomy for decompression. He has had seizure activity. There has been little evidence so far of meaningful neurological recovery. Neurosurgery feels there continues to be a reasonable chance of meaningful neurologic recovery (though it will take a lot of time) and is recommending ongoing aggressive care. . Code Status: Alternative Code (Intubation only) Plan == Code Status: ALTERNATE CODE == ROBYN "MANUELA" BRANCH (SISTER) IS THE HEALTH CARE PROXY DECISION MAKER . == Decision making: Mr. Nixon is incapacitated to make his own health care decisions and it is unclear if/when he will regain capacity. Patient is not legally , has no children, and the parents who adopted him are . Under the [place] Statutes, decision making would fall to the patient's adoptive siblings -- Robyn and Demarco. Demarco has opted outcome of healthcare proxy decision making, therefore patient's sister (Robyn) is the healthcare proxy decision maker. == PATIENT'S SISTER AND HIS FIANCE HAD A FALLING OUT. SISTER IS HCP AND WANTS ALL INFORMATION GIVEN TO HER ONLY. FIANCE STATING THE SISTER MADE HER THE HCP WHICH IS DOES NOT FOLLOW [place] STATUTES HIERARCHY. DISCUSSED WITH PATIENT NURSE AND CASE MANAGEMENT, PAM == Goals of medical treatment: Goals remain aggressive, hopeful patient will be placed in a SNF for rehabilitation. CM received copy of patient's Medicaid card, as the side pending. == Any discharge planning, updates and information need to be discussed with patient's sister and not his significant other case management and nurses has been on that were of this. == Encephalopathy: This has been multi-factorial and has involved the brain injury, alcohol withdrawal, infection, seizure, etc. Current encephalopathy now mostly due to brain injury, minimal neurological gains have been made. Follow-up EEG on 11/03/16 has significantly improved in comparison to prior reports. No epileptiform features were present. Patient remains on Valproate and Keppra for seizure management. 12/03/16: Patient is awake and alert, using dry erase board to communicate. == Pain: Per review of notes: Patient had history of several pain syndromes. He complained of abdominal pain for years with occasional rectal bleeding. He also complained of right ankle pain where he had surgery and achiness in multiple joints. He would use BC powders several times a day and occasionally hydrocodone. Other current sources of pain might include prolonged bedbound status, post op wound/head pain, discomfort from trach/gann/tracheostomy/ vascular access lines. 12/03/16: Patient reporting pain and lower back and buttocks, rated 7 out of 10. Orders are in place for PRN De Berry and morphine. 24 hour dosing: De Berry ([id number]) - 2 tablets 1, De Berry ([id number]) - 1 tablets 1, Morphine 4 mg IV 3 == Dyspnea: Tracheostomy to T-piece, FiO2 28% with oxygen saturation in the mid to high 90s. Follow-up chest x-ray on 11/09/16 showed right basilar patchiness consistent with probable pneumonia, likely aspiration. Sputum culture on 11/09/16 growing Serratia Marcescens. == Dysphasia: Patient unable to pass swallow evaluation, speech therapy continues to follow. Remains NPO. Tolerating by past feedings, Jevity 1.5 at 65ml/per hour via PEG tube == Palliative care will continue to follow to assist with symptom management and to further clarify goals of medical treatment as the clinical course evolves. . (Татьяна Hauser) Attestation To help prompt me to consider important information that might be impacting today's encounter and assessment, information from prior notes written by myself or my colleagues may have been "brought forward" into today's note. My signature on this note, however, is an attestation that I personally performed the exam, history, and/or decision-making noted today, and, unless otherwise indicated, the interactions with patient, family, and staff as well as the review of records all occurred today. I also attest that the listed assessment and stated plan reflect my best clinical judgment today based on the combination of historical information, prior notes, and today's exam/ interactions. When time spent is documented, it refers only to time spent today by the signer, or if indicated, combined time spent today by collaborating physician/nurse practitioner. . (Татьяна Hauser) Collaborating MD Comments . Chart reviewed. Cased discussed with palliative care MAGNETIC HEALER. Above MAGNETIC HEALER note reviewed and I concur. . (Hayden Oviedo MD) Татьяна Hauser Dec 03, 2016 17:32 Hayden Oviedo MD January 17, 2017 15:27
--- NOTE | 2016-12-03 17:52 | HHI.PR ---
Subjective Remarks 56 YOWM with Fall,ICH,ventriculostomy RF, has trach. Alert, awake, looks around No fever Tolerates TF at goal rate 65 cc /HR had Crainial Flap placed Trach capped Objective Vital Signs Vital Signs Date Time Temp Pulse Resp B/P Pulse Ox O2 Delivery O2 Flow Rate FiO2 12/03/16 16:00 97.1 89 18 128/62 98 12/03/16 13:34 97.0 88 18 118/60 12/03/16 09:53 Trach Collar 6.00 28 12/03/16 08:00 97.4 75 18 107/69 96 12/03/16 04:00 97.6 83 22 109/79 96 12/03/16 00:00 98.0 79 22 112/70 93 12/02/16 20:00 98.2 84 20 141/78 96 12/02/16 17:57 Trach Collar I/O 12/02/16 12/02/16 12/02/16 12/03/16 12/03/16 12/03/16 07:00 15:00 23:00 07:00 15:00 23:00 Intake Total 1632 ml 1797 ml 306 ml 300 ml Output Total 500 ml 720 ml 500 ml 310 ml 2000 ml Balance 1132 ml 1077 ml -194 ml -310 ml -1700 ml Intake Oral 225 ml IV Total 1371 ml 1021 ml 306 ml 300 ml Other 261 ml 551 ml Output Urine Total 450 ml 705 ml 500 ml 300 ml 2000 ml Drainage Total 50 ml 15 ml 10 ml # Bowel Movements 0 0 Result Diagram: 12/02/1652112/02/16521 Objective Remarks GENERAL: WBWN male, On Trach SKIN: Warm and dry. HEAD: Normocephalic. EYES: No scleral icterus. No injection or drainage. NECK: Supple, trachea midline. No JVD or lymphadenopathy. trach in place CARDIOVASCULAR: Regular rate and rhythm without murmurs, gallops, or rubs. RESPIRATORY: Breath sounds equal bilaterally. No accessory muscle use. GASTROINTESTINAL: Abdomen soft, non-tender, nondistended. PEG in place MUSCULOSKELETAL: No cyanosis, or edema. BACK: Nontender without obvious deformity. No CVA tenderness. A/P Assessment and Plan RF. s/p Trach s/P Ventriculostomy PEG placement PLAN: Aerosol nebs SQ Lovenox TF @ 65cc/HR Trach suction prn Titerate 02 to keep sat >90% Cont trach capping as tolerated Murphy Cm MD Dec 03, 2016 17:52
[2016-12-03] MEDS: HALOPERIDOL LACTATE 5 MG/ML AMP IM PRN (21:27)
[2016-12-03] MEDS: ACETAMINOPHEN/HYDROcodone 325 MG/10 MG TAB PO PRN (23:32)
[2016-12-04] VITALS (9 sets, daily range): BP systolic 91–168; BP diastolic 54–76; PULSE 67–78; RESP 16–20; TEMP 96.9–99; O2SAT 90–99
[2016-12-04] MEDS: PROPRANOLOL HCL 20 MG TAB PO SCH ×4 (04:59→22:58)
[2016-12-04] MEDS: cloNIDine HCL 0.3 MG TAB PO SCH ×3 (04:59→20:36)
[2016-12-04] MEDS: HYDROCORTISONE 1% CREAM 30 GM TOPICAL SCH ×3 (04:59→20:37)
[2016-12-04] MEDS: amLODIPine BESYLATE 5 MG TAB PO SCH (09:00)
[2016-12-04] MEDS: SODIUM CHLORIDE 0.9% FLUSH 5 ML FLUSH IVF SCH ×2 (09:00→20:36)
[2016-12-04] MEDS: POTASSIUM CHLORIDE 25 MEQ EFFERVESCENT TAB TUBE SCH (09:05)
[2016-12-04] MEDS: LANSOPRAZOLE SOLUTAB 30 MG TAB PEG SCH (09:05)
[2016-12-04] MEDS: THIAMINE HCL 100 MG TAB PO SCH (09:05)
[2016-12-04] MEDS: FOLIC ACID 1 MG TAB PO SCH (09:05)
[2016-12-04] MEDS: MULTIVITAMIN TAB PO SCH (09:05)
[2016-12-04] MEDS: DOCUSATE SODIUM 100 MG CAP PO SCH ×2 (09:05→20:36)
[2016-12-04] MEDS: COLLAGENASE OINT 30 GM TUBE TOPICAL SCH (09:07)
[2016-12-04] MEDS: FUROSEMIDE 40 MG/4 ML VIAL IV PUSH SCH (09:07)
[2016-12-04] MEDS: levETIRAcetam INJ 500 MG in SODIUM CHLORIDE 0.9% INJ 100 ML IV SCH ×2 (09:07→20:35)
[2016-12-04] MEDS: LACTOBACILLUS ACIDOPHILUS TAB PEG SCH (09:11)
[2016-12-04] MEDS: WATER IV SCH ×4 (11:43→22:59)
[2016-12-04] MEDS: VALPROATE IV SCH ×4 (11:43→22:59)
[2016-12-04] MEDS: DEXTROSE 5% IV SCH ×4 (11:43→22:59)
--- NOTE | 2016-12-04 12:49 | HHI.NSPN ---
(Viky Bernal) Note Status Status: Progress Note (Viky Bernal) Interval History Interval History Mr. Nixon is a 56 y/o male with TBI, he underwent a right frontotemporoparietal decompressive craniectomy with evacuation of SDH on 10/18/16. NRS was asked to evaluate for possible placement of bone flap. Mr. Nixon continues to do well, he is communicating through writing. His right flap has sunken in. 12/02: POD 1 s/p right cranioplasty, in PACU, doing well, surgical pain controlled 12/03: POD 2, neuro stable overnight, minimal EDY drainage output. 12/04: POD 3, wound healing well, no neuro changes overnight, family in room very pleased. (Viky Bernal) Labs, Micro, & Vital Signs Results Date Time Temp Pulse Resp B/P Pulse Ox O2 Delivery O2 Flow Rate FiO2 12/04/16 11:45 97.1 75 16 123/71 95 12/04/16 11:32 99 Nasal Cannula 21 12/04/16 08:39 97.8 67 16 108/56 94 12/04/16 04:00 96.9 78 18 126/60 94 12/04/16 00:25 94 12/04/16 00:00 98.2 70 18 91/54 90 12/03/16 20:00 Room Air 12/03/16 20:00 98.7 79 18 127/63 92 12/03/16 16:00 97.1 89 18 128/62 98 12/03/16 13:34 97.0 88 18 118/60 12/04/16 07:00 Intake Total 300 ml Output Total 2000 ml Balance -1700 ml Constitutional Vital Signs Date Time Temp Pulse Resp B/P Pulse Ox O2 Delivery O2 Flow Rate FiO2 12/04/16 11:45 97.1 75 16 123/71 95 12/04/16 11:32 99 Nasal Cannula 21 12/04/16 08:39 97.8 67 16 108/56 94 12/04/16 04:00 96.9 78 18 126/60 94 12/04/16 00:25 94 12/04/16 00:00 98.2 70 18 91/54 90 12/03/16 20:00 Room Air 12/03/16 20:00 98.7 79 18 127/63 92 12/03/16 16:00 97.1 89 18 128/62 98 12/03/16 13:34 97.0 88 18 118/60 12/04/16 07:00 Intake Total 300 ml Output Total 2000 ml Balance -1700 ml (Viky Brenal) Review of Systems/Exam Exam Mr Nixon is alert, smiling Right surgical wound is healing well, no drainage seen. Neck: tracheostomy Cranial Nerves: Pupils 4 mm, facial motor grossly symmetric. Appears hard of hearing. Motor: moves all four extremities, with stable left side weakness Cerebellar: cannot assess due to clinical condition (Viky Benral) Medications Current Medications Current Medications Medications (Trade) Dose Ordered Sig/Jony Route PRN Reason Start Time Stop Time Status Last Admin Dose Admin Miscellaneous Information 1 [id number] XX 10/11/16 13:00 10/11/16 13:00 Acetaminophen (Tylenol Supp) 650 mg Q4H PRN OR FEVER 10/15/16 12:15 Info 1 UNSCH XX 10/17/16 11:00 Propranolol HCl (Inderal) 20 mg Q6HR PO 10/22/16 18:00 12/04/16 04:59 Clonidine (Catapres) 0.3 mg Q8HR PO 10/22/16 16:42 12/04/16 04:59 Folic Acid (Folate) 1 mg DAILY PO 10/25/16 09:00 12/04/16 09:05 Multivitamins (Theragran) 1 tab DAILY PO 10/25/16 09:00 12/04/16 09:05 Oxycodone HCl (Roxicodone Intensol Liq) 10 mg Q4H PRN PO pain 7-10 10/24/16 12:30 11/21/16 03:56 Furosemide (Lasix Inj) 40 mg DAILY IV PUSH 10/26/16 09:00 12/04/16 09:07 Potassium Bicarb/ Potassium Chloride (K-Lyte Cl Eff) 25 meq DAILY TUBE 10/26/16 09:00 12/04/16 09:05 Enoxaparin Sodium (Lovenox Inj) 40 mg Q24H SQ 11/03/16 12:00 Hold 11/30/16 12:33 Magnesium Hydroxide (Milk Of Magnesia Liq) 30 ml DAILY PRN PO Constipation 11/10/16 09:00 11/29/16 11:20 Thiamine HCl (Vitamin B1) 100 mg DAILY PO 11/11/16 09:00 12/04/16 09:05 Amlodipine Besylate (Norvasc) 5 mg DAILY PO 11/10/16 11:30 12/03/16 09:48 Lactobacillus Acidophilus 1 tab 1 tab DAILY PEG 11/11/16 09:00 12/04/16 09:11 Valproate Sodium/ Dextrose (Depacon Inj/D5W 100 ml Inj) 110 ml @ 105 mls/hr Q12H IV 11/10/16 23:00 12/04/16 11:43 Enalaprilat (Vasotec Inj) 1.25 mg Q8H PRN IV PUSH SBP>160, DBP>90 11/11/16 13:00 Hydrocortisone (Hydrocortisone 1% Cream) 1 applic Q8HR TOPICAL 11/18/16 14:15 12/04/16 04:59 Diphenhydramine HCl (Benadryl Inj) 25 mg Q12HR PRN IM RASH 11/18/16 14:15 11/26/16 00:40 Hyoscyamine Sulfate (Levsin Liq) 0.125 mg Q4H PRN PEG INCREASED SECRETIONS 11/20/16 14:00 11/29/16 01:34 Sennosides (Senokot) 8.6 mg DAILY PRN PO CONSTIPATION 11/29/16 13:45 Collagenase (Santyl Oint) 1 applic DAILY TOPICAL 11/30/16 09:00 12/04/16 09:07 Guaifenesin/ Codeine Phosphate (Robitussin Ac 200-20 Mg/10 ml Liq) 10 ml Q6H PRN PO COUGH 11/30/16 11:30 IV Flush (NS Flush) 2 ml UNSCH PRN IVF FLUSH AFTER USING IV ACCESS 12/01/16 13:30 IV Flush 2 ml 2 ml BID IVF 12/01/16 21:00 12/04/16 09:00 Levetriacetam/ Sodium Chloride (Keppra Inj/NS Inj) 105 ml @ 400 mls/hr Q12H IV 12/01/16 21:00 12/04/16 09:07 Bisacodyl (Dulcolax Supp) 10 mg DAILY PRN RECTAL CONSTIPATION 12/01/16 13:30 Docusate Sodium (Colace) 100 mg BID PO 12/01/16 21:00 12/04/16 09:05 Ondansetron HCl (Zofran Inj) 4 mg Q6H PRN IV NAUSEA OR VOMITING 12/01/16 13:30 Calcium Gluconate 1 gm 1 gm UNSCH PRN IV SEE LABEL COMMENTS 12/01/16 13:30 Potassium Chloride 100 ml @ 50 mls/hr UNSCH PRN IV POTASSIUM LESS THAN 4 12/01/16 13:30 Magnesium Sulfate/ Sodium Chloride (Magnesium Sulfate Inj/NS Inj) 108 ml @ 108 mls/hr UNSCH PRN IV MAGNESIUM LESS THAN 2 12/01/16 13:30 Acetaminophen/ Hydrocodone Bitart ([place] 10-325 Mg) 1 tab Q4H PRN PO PAIN SCALE 1 TO 5 12/01/16 13:30 12/03/16 02:23 Acetaminophen/ Hydrocodone Bitart ([place] 10-325 Mg) 2 tab Q4H PRN PO PAIN SCALE 6 TO 10 12/01/16 13:30 12/03/16 23:32 Morphine Sulfate (Morphine Inj) 2 mg Q2H PRN IV PUSH PAIN SCALE 1 TO 6 12/01/16 13:30 Morphine Sulfate (Morphine Inj) 4 mg Q2H PRN IV PUSH PAIN SCALE 7 TO 10 12/01/16 13:30 12/03/16 15:54 Acetaminophen (Tylenol) 650 mg Q4H PRN PO TEMPERATURE > 101.5 F 12/01/16 13:30 Haloperidol Lactate (Haldol Inj) 2 mg Q8H PRN IM AGITATION AND/OR HALLUCINATION 12/02/16 17:15 12/03/16 21:27 Lansoprazole (Prevacid Odt) 30 mg DAILY PEG 12/04/16 09:00 12/04/16 09:05 (Viky Bernal) Medical Decision Making MDM Remarks 56 y/o male TBI, s/p right decompressive cranioplasty with placement of bone flap 12/01/16, POD 3, doing well post-op, stable neuro exam, surgical wound healing well (Viky Bernal) Plan Plan Remarks neuro stable cont PT, OT, ST, rehab efforts SCDs and TEDs for dvt prophylaxis, hold lovenox, ok to restart POD 3 dw family in room dc head marisela on 12/15/16 (Viky Bernal) Attending Statement The exam, history, and the medical decision-making described in the above note were completed with the assistance of the mid-level provider. I reviewed and agree with the findings presented. I attest that I had a [id number] encounter with the patient on the same day, and personally performed and documented my assessment and findings in the medical record. (Chetan Cruz MD) Viky Bernal Dec 04, 2016 12:49 Chetan Cruz MD Dec 04, 2016 17:21
--- NOTE | 2016-12-04 17:22 | HHI.PR ---
Subjective Remarks patietn awake but impulsive, pulls on everything trach capping- needs suctioning Objective Vitals Vital Signs Date Time Temp Pulse Resp B/P Pulse Ox O2 Delivery O2 Flow Rate FiO2 12/04/16 16:15 97.1 72 16 136/62 96 12/04/16 11:45 97.1 75 16 123/71 95 12/04/16 11:32 99 Nasal Cannula 21 12/04/16 08:39 97.8 67 16 108/56 94 12/04/16 04:00 96.9 78 18 126/60 94 12/04/16 00:25 94 12/04/16 00:00 98.2 70 18 91/54 90 12/03/16 20:00 Room Air 12/03/16 20:00 98.7 79 18 127/63 92 I/O 12/03/16 12/03/16 12/03/16 12/04/16 12/04/16 12/04/16 07:00 15:00 23:00 07:00 15:00 23:00 Intake Total 300 ml 719 ml Output Total 310 ml 2000 ml Balance -310 ml -1700 ml 719 ml IV Total 300 ml 133 ml Tube Feeding 486 ml Other 100 ml Output Urine Total 300 ml 2000 ml Drainage Total 10 ml # Voids 3 2 1 # Bowel Movements 0 Result Diagram: 12/02/1652112/02/16521 Imaging Last Impressions Chest X-Ray 11/09/16 0000 Signed Impressions: Service Date/Time: Wednesday, November 09, 2016 17:22 - CONCLUSION: Right basilar patchiness consistent with probable pneumonia. Clinical correlation is recommended. Jose James MD Lower Extremity Ultrasound 10/27/16 0000 Signed Impressions: Service Date/Time: Thursday, October 27, 2016 10:13 - CONCLUSION: No DVT either lower extremity. 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 MD Head CT 10/23/16 0000 Signed Impressions: Service Date/Time: Sunday, October 23, 2016 11:21 - CONCLUSION: 1. Examination quality is degraded by motion artifact. There is decreased midline shift, currently measuring 3 mm compared to 6 mm on the prior study. 2. There are persistent hemorrhagic contusions in the right frontal lobe but they are less well-visualized today either related to interval improvement or related to motion artifact. Red Arenas MD Chest CT 10/23/16 0000 Signed Impressions: Service Date/Time: Sunday, October 23, 2016 11:24 - CONCLUSION: 1. Airspace consolidation within the left upper lobe. This could represent an infectious process. 2. Small bilateral pleural effusions with associated compressive atelectasis in the lower lobes. Red Arenas MD Abdomen/Pelvis CT 10/23/16 0000 Signed Impressions: Service Date/Time: Sunday, October 23, 2016 11:27 - CONCLUSION: 1. No acute finding is identified within the abdomen or pelvis. 2. Anasarca. 3. Stable 7 mm nodule on the left adrenal gland. Small size favors a benign process but is incompletely characterized on this examination. Red Arenas MD Neck CTA 10/12/16 0000 Signed Impressions: Service Date/Time: Wednesday, October 12, 2016 09:27 - CONCLUSION: Mild atherosclerotic changes in the proximal portions of both internal carotid arteries but no significant stenosis. Dez Petersen MD Head CTA 10/12/16 0000 Signed Impressions: Service Date/Time: Wednesday, October 12, 2016 09:27 - CONCLUSION: No evidence of acute vascular injury Red Hoffman MD Pelvis X-Ray 10/11/16 1213 Signed Impressions: Service Date/Time: Tuesday, October 11, 2016 12:02 - CONCLUSION: Satisfactory trauma pelvis appearance. Red Hoffman MD Cervical Spine CT 10/11/16 1213 Signed Impressions: Service Date/Time: Tuesday, October 11, 2016 12:19 - CONCLUSION: Occipital skull fracture. No evidence of acute traumatic injury in the cervical spine Red Hoffman MD Objective Remarks awake and alert, made eye contact, stated his name, head- post op dressing with EDY bulb in place- minimal light blood anicteric, pupils equal shallow left nasolabial fold tracheostomy in place- capped since this am lungs- + breath sounds, no rales, no wheezes regular rhythm abdomen- PEG in place gann in place extremities no edema moves all extremities spontaneously, hand primary clinician strong Procedures 10/27/2016 Blue rhino tracheostomy 10/18/2016 Left frontal bur hole with placement of an intracranial pressure Right frontotemporoparietal decompressive craniectomy with evacuation of subdural hematoma 10/13/2016 Right frontal Dustin hole with placement of a ventriculostomy catheter A/P Problem List: (1) Encephalopathy ICD Code: G93.40 Status: Acute (2) Pneumonia ICD Code: J18.9 Status: Acute (3) SAH (subarachnoid hemorrhage) ICD Code: I60.9 Status: Acute (4) Major neurocognitive disorder as late effect of traumatic brain injury with behavioral disturbance ICD Code: S06.9X9S Status: Acute (5) Traumatic brain injury ICD Code: S06.9X9A Status: Chronic (6) Subdural hemorrhage following injury ICD Code: S06.5X9A Status: Acute (7) Fracture of occipital bone of skull with loss of consciousness ICD Code: S02.119A Status: Acute (8) Hepatitis C antibody positive in blood ICD Code: R76.8 Status: Acute (9) Rash ICD Code: R21 Status: Acute Assessment and Plan Patient is a 56-year-old male who came to the hospital on 10/11/16 as a trauma patient. As per report, patient was on a ladder and fell approximately 10 feet. Bystander on the scene perform CPR for approximately 2 minutes stating the patient was blue. On EMS arrival patient is reported to have a GCS of 6, which improved at the time of ED arrival to GCS of 11. Imaging studies showed occipital fracture subdural and subarachnoid hemorrhage. The patient developed worsening agitation he was intubated and placed on mechanical ventilation. Repeat CT in 24 hours showed worsening of bilateral subdural subarachnoid hemorrhage with right temporal parietal subdural hemorrhage with 9 mL leftward midline shift. S/P Craniotomy and drain. Pt. now on tracheostomy and PEG tube placed. Consulted for transfer of care. TBI -status post fall from a ladder Skull fracture, occipital Subarachnoid hemorrhage Subdural hemorrhage Status post craniotomy S/P bone flap surgery 12/01 Encephalopathy - Rehabilitation medicine following. - Continue Keppra, valproic acid. - Seizure precaution - Continue physical therapy occupational therapy for deconditioning - Contacted Neurosurgery [employer]AL LED[employer] ACCOUNTANT regarding bone flap - surgery on 12/01/2016. - Post surgery, patient is doing well. However, somewhat agitated. - Discussed with RN - will try to minimize restraints 12/03- monitor - Haldol PRN can be used. Also, discussed with RN regarding pain level and giving patient pain medications. Tracheostomy- trial capping 12/03 Pneumonia, HCAP vs. Aspiration pneumonia, possibly S. Aureus/ Anaerobes - Leukocytosis continues WBC 13.0 --> 14.5 - Reviewed chest xray repeat 11/10/16- Right basilar patchiness consistent with probable pneumonia. Likely aspiration pneumonia. - 11/04/16 Chest x-ray showed patchy right lung base opacity nonspecific. repeat chest x-ray showed no significant changes occurred. - Continue pulmonary toileting. - Neb treatments - Pulmonology following input appreciated. - Suction when necessary. Oral and trach care. - Aspiration precaution. - S/P Levaquin and Flagyl IV, discontinued on 11/14/2016. HTN - Continue medication Lasix 40 mg daily, propranolol 20 mg every 6 hours, clonidine 0.3 every 8 hours, labetalol when necessary. - Vasotec PRN. Continue Amlodipine 5mg Qday. PEG in place - Continue tube feedings as ordered Jevity- tolerating well - Monitor for aspiration risk Diarrhea- no further episodes - On the maylin shield - Hold off bowel regimen. - C. difficile negative Hepatitis C - Positive hep C serology - GI follow up as an outpatient. Urinary tract infection - UA positive - Culture showed Rossy albicans less than 10,000 - gann in place- change to condome and monitor output. Continue betty-care. EtOH, abuse - Folic acid, thiamine DVT prop Lovenox- ok to restart POD 3- 4/15 per Neurosurgery notes Alternative Code:Intubation Discharge Planning Continue PT/OT/ST- daily SSI pending. Difficult placement. Problem Qualifiers (1) Traumatic brain injury: Qualified Code: S06.9X6D - Traumatic brain injury, with LOC > 24 hr without return to prior conscious level, patient surviving, subsequent encounter (2) Subdural hemorrhage following injury: Qualified Code: S06.5X1A - Traumatic subdural hemorrhage with loss of consciousness of 30 minutes or less, initial encounter (3) Fracture of occipital bone of skull with loss of consciousness: Qualified Code: S02.119A - Fracture of occipital bone of skull with loss of consciousness, closed, initial encounter Nathaniel Montanez MD Dec 04, 2016 17:22
--- NOTE | 2016-12-04 17:29 | HHI.PR ---
Subjective Remarks 56 YOWM with Fall,ICH,ventriculostomy Alert, awake, looks around No fever Tolerates TF at goal rate 65 cc /HR had Crainial Flap placed Trach capped Objective Vital Signs Vital Signs Date Time Temp Pulse Resp B/P Pulse Ox O2 Delivery O2 Flow Rate FiO2 12/04/16 16:15 97.1 72 16 136/62 96 12/04/16 11:45 97.1 75 16 123/71 95 12/04/16 11:32 99 Nasal Cannula 21 12/04/16 08:39 97.8 67 16 108/56 94 12/04/16 04:00 96.9 78 18 126/60 94 12/04/16 00:25 94 12/04/16 00:00 98.2 70 18 91/54 90 12/03/16 20:00 Room Air 12/03/16 20:00 98.7 79 18 127/63 92 I/O 12/03/16 12/03/16 12/03/16 12/04/16 12/04/16 12/04/16 07:00 15:00 23:00 07:00 15:00 23:00 Intake Total 300 ml 719 ml Output Total 310 ml 2000 ml Balance -310 ml -1700 ml 719 ml IV Total 300 ml 133 ml Tube Feeding 486 ml Other 100 ml Output Urine Total 300 ml 2000 ml Drainage Total 10 ml # Voids 3 2 1 # Bowel Movements 0 Result Diagram: 12/02/1652112/02/16521 Objective Remarks GENERAL: WBWN male, On Trach SKIN: Warm and dry. HEAD: Normocephalic. EYES: No scleral icterus. No injection or drainage. NECK: Supple, trachea midline. No JVD or lymphadenopathy. trach in place CARDIOVASCULAR: Regular rate and rhythm without murmurs, gallops, or rubs. RESPIRATORY: Breath sounds equal bilaterally. No accessory muscle use. GASTROINTESTINAL: Abdomen soft, non-tender, nondistended. PEG in place MUSCULOSKELETAL: No cyanosis, or edema. BACK: Nontender without obvious deformity. No CVA tenderness. A/P Assessment and Plan RF. s/p Trach s/P Ventriculostomy PEG placement PLAN: Aerosol nebs SQ Lovenox TF @ 65cc/HR Trach suction prn Titerate 02 to keep sat >90% Cont trach capping as tolerated TRANSITION COACH Murphy Gaona MD Dec 04, 2016 17:29
[2016-12-04] MEDS: HALOPERIDOL LACTATE 5 MG/ML AMP IM PRN (22:58)
[2016-12-05] VITALS (7 sets, daily range): BP systolic 115–174; BP diastolic 60–104; PULSE 70–87; RESP 20–22; TEMP 96.3–98.8; O2SAT 91–98
[2016-12-05] MEDS: cloNIDine HCL 0.3 MG TAB PO SCH (04:54)
[2016-12-05] MEDS: PROPRANOLOL HCL 20 MG TAB PO SCH (04:54)
[2016-12-05] MEDS: HYDROCORTISONE 1% CREAM 30 GM TOPICAL SCH ×3 (04:55→22:00)
[2016-12-05] MEDS: POTASSIUM CHLORIDE 25 MEQ EFFERVESCENT TAB TUBE SCH (08:44)
[2016-12-05] MEDS: FUROSEMIDE 40 MG/4 ML VIAL IV PUSH SCH (08:45)
[2016-12-05] MEDS: levETIRAcetam INJ 500 MG in SODIUM CHLORIDE 0.9% INJ 100 ML IV SCH ×2 (08:45→23:23)
[2016-12-05] MEDS: LACTOBACILLUS ACIDOPHILUS TAB PEG SCH (08:45)
[2016-12-05] MEDS: MULTIVITAMIN TAB PO SCH (08:46)
[2016-12-05] MEDS: LANSOPRAZOLE SOLUTAB 30 MG TAB PEG SCH (08:46)
[2016-12-05] MEDS: DOCUSATE SODIUM 100 MG CAP PO SCH (08:46)
[2016-12-05] MEDS: THIAMINE HCL 100 MG TAB PO SCH (08:46)
[2016-12-05] MEDS: FOLIC ACID 1 MG TAB PO SCH (08:46)
[2016-12-05] MEDS: SODIUM CHLORIDE 0.9% FLUSH 5 ML FLUSH IVF SCH ×2 (08:47→21:00)
[2016-12-05] MEDS: COLLAGENASE OINT 30 GM TUBE TOPICAL SCH (08:47)
[2016-12-05] MEDS: amLODIPine BESYLATE 5 MG TAB PO SCH (09:00)
[2016-12-05] MEDS: WATER IV SCH ×4 (11:00→23:33)
[2016-12-05] MEDS: DEXTROSE 5% IV SCH ×4 (11:00→23:33)
[2016-12-05] MEDS: VALPROATE IV SCH ×4 (11:00→23:33)
--- NOTE | 2016-12-05 11:13 | HHI.PR ---
Subjective Remarks awake, restless, states his name when asked, not ff commands Objective Vitals Vital Signs Date Time Temp Pulse Resp B/P Pulse Ox O2 Delivery O2 Flow Rate FiO2 12/05/16 10:52 91 T-piece 21 12/05/16 08:46 97.6 75 22 124/62 98 12/05/16 04:00 97.4 87 20 174/90 96 12/05/16 00:00 96.3 81 20 160/82 96 12/04/16 20:00 94 Room Air 12/04/16 20:00 99.0 74 20 168/76 95 12/04/16 18:02 96 21 12/04/16 16:15 97.1 72 16 136/62 96 12/04/16 11:45 97.1 75 16 123/71 95 12/04/16 11:32 99 Nasal Cannula 21 I/O 12/04/16 12/04/16 12/04/16 12/05/16 12/05/16 12/05/16 07:00 15:00 23:00 07:00 15:00 23:00 Intake Total 719 ml 900 ml Output Total 400 ml 800 ml Balance 719 ml -400 ml 100 ml IV Total 133 ml Tube Feeding 486 ml 780 ml Other 100 ml 120 ml Output Urine Total 400 ml 800 ml # Voids 3 2 2 3 # Bowel Movements 0 0 Result Diagram: 12/02/1652112/02/16521 Imaging Last Impressions Chest X-Ray 11/09/16 0000 Signed Impressions: Service Date/Time: Wednesday, November 09, 2016 17:22 - CONCLUSION: Right basilar patchiness consistent with probable pneumonia. Clinical correlation is recommended. Jose James MD Lower Extremity Ultrasound 10/27/16 0000 Signed Impressions: Service Date/Time: Thursday, October 27, 2016 10:13 - CONCLUSION: No DVT either lower extremity. 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 MD Head CT 10/23/16 0000 Signed Impressions: Service Date/Time: Sunday, October 23, 2016 11:21 - CONCLUSION: 1. Examination quality is degraded by motion artifact. There is decreased midline shift, currently measuring 3 mm compared to 6 mm on the prior study. 2. There are persistent hemorrhagic contusions in the right frontal lobe but they are less well-visualized today either related to interval improvement or related to motion artifact. Red Arenas MD Chest CT 10/23/16 0000 Signed Impressions: Service Date/Time: Sunday, October 23, 2016 11:24 - CONCLUSION: 1. Airspace consolidation within the left upper lobe. This could represent an infectious process. 2. Small bilateral pleural effusions with associated compressive atelectasis in the lower lobes. Red Arenas MD Abdomen/Pelvis CT 10/23/16 0000 Signed Impressions: Service Date/Time: Sunday, October 23, 2016 11:27 - CONCLUSION: 1. No acute finding is identified within the abdomen or pelvis. 2. Anasarca. 3. Stable 7 mm nodule on the left adrenal gland. Small size favors a benign process but is incompletely characterized on this examination. Red Arenas MD Neck CTA 10/12/16 0000 Signed Impressions: Service Date/Time: Wednesday, October 12, 2016 09:27 - CONCLUSION: Mild atherosclerotic changes in the proximal portions of both internal carotid arteries but no significant stenosis. Dez Petersen MD Head CTA 10/12/16 0000 Signed Impressions: Service Date/Time: Wednesday, October 12, 2016 09:27 - CONCLUSION: No evidence of acute vascular injury Red Hoffman MD Pelvis X-Ray 10/11/16 1213 Signed Impressions: Service Date/Time: Tuesday, October 11, 2016 12:02 - CONCLUSION: Satisfactory trauma pelvis appearance. Red Hoffman MD Cervical Spine CT 10/11/16 1213 Signed Impressions: Service Date/Time: Tuesday, October 11, 2016 12:19 - CONCLUSION: Occipital skull fracture. No evidence of acute traumatic injury in the cervical spine Red Hoffman MD Objective Remarks awake and alert, stated his name, restless head- marisela in place anicteric, pupils equal shallow left nasolabial fold tracheostomy in place- capped since 12/04 lungs- + breath sounds, no rales, no wheezes regular rhythm abdomen- PEG in place condom catheter in place extremities no edema moves all extremities spontaneously, hand coal hauler strong Procedures 12/01- cranioplasty 10/27/2016 Blue rhino tracheostomy 10/18/2016 Left frontal bur hole with placement of an intracranial pressure Right frontotemporoparietal decompressive craniectomy with evacuation of subdural hematoma 10/13/2016 Right frontal Anita hole with placement of a ventriculostomy catheter A/P Problem List: (1) Encephalopathy ICD Code: G93.40 Status: Acute (2) Pneumonia ICD Code: J18.9 Status: Acute (3) SAH (subarachnoid hemorrhage) ICD Code: I60.9 Status: Acute (4) Major neurocognitive disorder as late effect of traumatic brain injury with behavioral disturbance ICD Code: S06.9X9S Status: Acute (5) Traumatic brain injury ICD Code: S06.9X9A Status: Chronic (6) Subdural hemorrhage following injury ICD Code: S06.5X9A Status: Acute (7) Fracture of occipital bone of skull with loss of consciousness ICD Code: S02.119A Status: Acute (8) Hepatitis C antibody positive in blood ICD Code: R76.8 Status: Acute (9) Rash ICD Code: R21 Status: Acute Assessment and Plan Patient is a 56-year-old male who came to the hospital on 10/11/16 as a trauma patient. As per report, patient was on a ladder and fell approximately 10 feet. Bystander on the scene perform CPR for approximately 2 minutes stating the patient was blue. On EMS arrival patient is reported to have a GCS of 6, which improved at the time of ED arrival to GCS of 11. Imaging studies showed occipital fracture subdural and subarachnoid hemorrhage. The patient developed worsening agitation he was intubated and placed on mechanical ventilation. Repeat CT in 24 hours showed worsening of bilateral subdural subarachnoid hemorrhage with right temporal parietal subdural hemorrhage with 9 mL leftward midline shift. S/P Craniotomy and drain. Pt. now on tracheostomy and PEG tube placed. Consulted for transfer of care. TBI -status post fall from a ladder Skull fracture, occipital Subarachnoid hemorrhage Subdural hemorrhage Status post cranioplasty S/P bone flap surgery 12/01 Encephalopathy- Agitation - Rehabilitation medicine following. - Continue Keppra, valproic acid.- change to PEG route - Seizure precaution - Continue physical therapy occupational therapy for deconditioning - Discussed with RN - will try to minimize restraints 12/03- monitor - Haldol PRN can be used. Also, discussed with RN regarding pain level and giving patient pain medications. - start Seroquel trial bid Tracheostomy- trial capping 12/03- tolerated well Pneumonia, HCAP vs. Aspiration pneumonia, possibly S. Aureus/ Anaerobes - Leukocytosis continues WBC 13.0 --> 14.5 - Reviewed chest xray repeat 11/10/16- Right basilar patchiness consistent with probable pneumonia. Likely aspiration pneumonia. - 11/04/16 Chest x-ray showed patchy right lung base opacity nonspecific. repeat chest x-ray showed no significant changes occurred. - Continue pulmonary toileting. - Neb treatments - Pulmonology following for trach management - Suction when necessary. Oral and trach care. - Aspiration precaution. - S/P Levaquin and Flagyl IV, discontinued on 11/14/2016. HTN - Continue medication Lasix 40 mg daily, propranolol 20 mg every 6 hours, clonidine 0.3 every 8 hours, labetalol when necessary. - Vasotec PRN. Continue Amlodipine 5mg qday. PEG in place - Continue tube feedings as ordered Jevity- tolerating well - Monitor for aspiration risk Diarrhea- no further episodes - On the maylin shield - Hold off bowel regimen. - C. difficile negative Hepatitis C - Positive hep C serology - GI follow up as an outpatient. Urinary tract infection- no treatment - Culture showed Rossy albicans less than 10,000 -condom catheter- gann DC 12/01- voiding well Continue betty-care. EtOH, abuse - Folic acid, thiamine DVT prop Lovenox-restarted 12/05 Alternative Code:Intubation Discharge Planning Continue PT/OT/ST- daily SSI pending. Difficult placement. Problem Qualifiers (1) Traumatic brain injury: Qualified Code: S06.9X6D - Traumatic brain injury, with LOC > 24 hr without return to prior conscious level, patient surviving, subsequent encounter (2) Subdural hemorrhage following injury: Qualified Code: S06.5X1A - Traumatic subdural hemorrhage with loss of consciousness of 30 minutes or less, initial encounter (3) Fracture of occipital bone of skull with loss of consciousness: Qualified Code: S02.119A - Fracture of occipital bone of skull with loss of consciousness, closed, initial encounter Nathaniel Montanez MD Dec 05, 2016 11:12
[2016-12-05] MEDS ORDERED: MAGNESIUM HYDROXIDE SUSP 30 ML CUP PEG PRN (11:47)
[2016-12-05] MEDS: ENOXAPARIN SODIUM 40 MG/0.4 ML SYRINGE SQ SCH (12:00)
--- NOTE | 2016-12-05 12:17 | HHI.NSPN ---
(Viky Bernal) Note Status Status: Progress Note (Viky Bernal) Interval History Interval History Mr. Nixon is a 56 y/o male with TBI, he underwent a right frontotemporoparietal decompressive craniectomy with evacuation of SDH on 10/18/16. NRS was asked to evaluate for possible placement of bone flap. Mr. Nixon continues to do well, he is communicating through writing. His right flap has sunken in. 12/02: POD 1 s/p right cranioplasty, in PACU, doing well, surgical pain controlled 12/03: POD 2, neuro stable overnight, minimal EDY drainage output. 12/04: POD 3, wound healing well, no neuro changes overnight, family in room very pleased. 12/05: POD 4, doing well, neuro exam stable (Viky Bernal) Labs, Micro, & Vital Signs Results Date Time Temp Pulse Resp B/P Pulse Ox O2 Delivery O2 Flow Rate FiO2 12/05/16 10:52 91 T-piece 12/05/16 08:46 97.6 75 22 124/62 98 12/05/16 04:00 97.4 87 20 174/90 96 12/05/16 00:00 96.3 81 20 160/82 96 12/04/16 20:00 94 Room Air 12/04/16 20:00 99.0 74 20 168/76 95 12/04/16 18:02 96 21 12/04/16 16:15 97.1 72 16 136/62 96 12/05/16 07:00 Intake Total 1619 ml Output Total 1200 ml Balance 419 ml Constitutional Vital Signs Date Time Temp Pulse Resp B/P Pulse Ox O2 Delivery O2 Flow Rate FiO2 12/05/16 10:52 91 T-piece 12/05/16 08:46 97.6 75 22 124/62 98 12/05/16 04:00 97.4 87 20 174/90 96 12/05/16 00:00 96.3 81 20 160/82 96 12/04/16 20:00 94 Room Air 12/04/16 20:00 99.0 74 20 168/76 95 12/04/16 18:02 96 21 12/04/16 16:15 97.1 72 16 136/62 96 12/05/16 07:00 Intake Total 1619 ml Output Total 1200 ml Balance 419 ml (Viky Bernal) Review of Systems/Exam Exam Mr Nixon is alert, smiling, mouthing words, very hypophonic due to tracheostomy Right surgical wound is healing well, no drainage seen. Neck: tracheostomy Cranial Nerves: Pupils 4 mm, facial motor grossly symmetric. Appears hard of hearing. Motor: moves all four extremities, with stable left side weakness Cerebellar: cannot assess due to clinical condition (Viky Bernal) Medications Current Medications Current Medications Medications (Trade) Dose Ordered Sig/Jony Route PRN Reason Start Time Stop Time Status Last Admin Dose Admin Miscellaneous Information 1 Q361D XX 10/11/16 13:00 10/11/16 13:00 Acetaminophen (Tylenol Supp) 650 mg Q4H PRN [place] FEVER 10/15/16 12:15 Info 1 UNSCH XX 10/17/16 11:00 Multivitamins (Theragran) 1 tab DAILY PO 10/25/16 09:00 12/05/16 08:46 Oxycodone HCl (Roxicodone Intensol Liq) 10 mg Q4H PRN PO pain 7-10 10/24/16 12:30 11/21/16 03:56 Potassium Bicarb/ Potassium Chloride (K-Lyte Cl Eff) 25 meq DAILY TUBE 10/26/16 09:00 12/05/16 08:44 Enoxaparin Sodium (Lovenox Inj) 40 mg Q24H SQ 11/03/16 12:00 11/30/16 12:33 Amlodipine Besylate (Norvasc) 5 mg DAILY PO 11/10/16 11:30 12/03/16 09:48 Lactobacillus Acidophilus 1 tab 1 tab DAILY PEG 11/11/16 09:00 12/05/16 08:45 Valproate Sodium/ Dextrose (Depacon Inj/D5W 100 ml Inj) 110 ml @ 105 mls/hr Q12H IV 11/10/16 23:00 12/04/16 22:59 Enalaprilat (Vasotec Inj) 1.25 mg Q8H PRN IV PUSH SBP>160, DBP>90 11/11/16 13:00 Hydrocortisone (Hydrocortisone 1% Cream) 1 applic Q8HR TOPICAL 11/18/16 14:15 12/05/16 04:55 Diphenhydramine HCl (Benadryl Inj) 25 mg Q12HR PRN IM RASH 11/18/16 14:15 11/26/16 00:40 Hyoscyamine Sulfate (Levsin Liq) 0.125 mg Q4H PRN PEG INCREASED SECRETIONS 11/20/16 14:00 11/29/16 01:34 Sennosides (Senokot) 8.6 mg DAILY PRN PO CONSTIPATION 11/29/16 13:45 Collagenase (Santyl Oint) 1 applic DAILY TOPICAL 11/30/16 09:00 12/05/16 08:47 Guaifenesin/ Codeine Phosphate (Robitussin Ac 200-20 Mg/10 ml Liq) 10 ml Q6H PRN PO COUGH 11/30/16 11:30 IV Flush (NS Flush) 2 ml UNSCH PRN IVF FLUSH AFTER USING IV ACCESS 12/01/16 13:30 IV Flush 2 ml 2 ml BID IVF 12/01/16 21:00 12/05/16 08:47 Levetriacetam/ Sodium Chloride (Keppra Inj/NS Inj) 105 ml @ 400 mls/hr Q12H IV 12/01/16 21:00 12/05/16 08:45 Bisacodyl (Dulcolax Supp) 10 mg DAILY PRN RECTAL CONSTIPATION 12/01/16 13:30 Ondansetron HCl (Zofran Inj) 4 mg Q6H PRN IV NAUSEA OR VOMITING 12/01/16 13:30 Calcium Gluconate 1 gm 1 gm UNSCH PRN IV SEE LABEL COMMENTS 12/01/16 13:30 Potassium Chloride 100 ml @ 50 mls/hr UNSCH PRN IV POTASSIUM LESS THAN 4 12/01/16 13:30 Magnesium Sulfate/ Sodium Chloride (Magnesium Sulfate Inj/NS Inj) 108 ml @ 108 mls/hr UNSCH PRN IV MAGNESIUM LESS THAN 2 12/01/16 13:30 Acetaminophen/ Hydrocodone Bitart ([place] 10-325 Mg) 1 tab Q4H PRN PO PAIN SCALE 1 TO 5 12/01/16 13:30 12/03/16 02:23 Acetaminophen/ Hydrocodone Bitart ([place] 10-325 Mg) 2 tab Q4H PRN PO PAIN SCALE 6 TO 10 12/01/16 13:30 12/03/16 23:32 Morphine Sulfate (Morphine Inj) 2 mg Q2H PRN IV PUSH PAIN SCALE 1 TO 6 12/01/16 13:30 Morphine Sulfate (Morphine Inj) 4 mg Q2H PRN IV PUSH PAIN SCALE 7 TO 10 12/01/16 13:30 12/03/16 15:54 Acetaminophen (Tylenol) 650 mg Q4H PRN PO TEMPERATURE > 101.5 F 12/01/16 13:30 Haloperidol Lactate (Haldol Inj) 2 mg Q8H PRN IM AGITATION AND/OR HALLUCINATION 12/02/16 17:15 12/04/16 22:58 Lansoprazole (Prevacid Odt) 30 mg DAILY PEG 12/04/16 09:00 12/05/16 08:46 Furosemide (Lasix) 40 mg DAILY PEG 12/06/16 09:00 Propranolol HCl (Inderal) 20 mg Q8HR G-TUBE 12/05/16 14:00 Thiamine HCl (Vitamin B1) 100 mg DAILY PEG 12/06/16 09:00 Quetiapine Fumarate (SEROquel) 12.5 mg BID G-TUBE 12/05/16 21:00 Folic Acid (Folate) 1 mg DAILY PEG 12/06/16 09:00 Docusate Sodium (Colace) 100 mg BID PEG 12/05/16 21:00 Clonidine (Catapres) 0.3 mg Q8HR PEG 12/05/16 14:00 Magnesium Hydroxide (Milk Of Magnazul Liq) 30 ml DAILY PRN PEG Constipation 12/05/16 11:47 (Viky Bernal) Medical Decision Making MDM Remarks 56 y/o male TBI, s/p right decompressive cranioplasty with placement of bone flap 12/01/16, POD 4, doing well post-op, stable neuro exam, surgical wound healing well (Viky Bernal) Plan Plan Remarks neuro stable cont therapy and rehab clear for lovenox dc head marisela on 12/15/16 (Viky Bernal) Attending Statement The exam, history, and the medical decision-making described in the above note were completed with the assistance of the mid-level provider. I reviewed and agree with the findings presented. I attest that I had a [id number] encounter with the patient on the same day, and personally performed and documented my assessment and findings in the medical record. (Chetan Cruz MD) Viky Bernal Dec 05, 2016 12:17 Chetan Cruz MD Dec 05, 2016 18:34
[2016-12-05] MEDS: PROPRANOLOL HCL 20 MG TAB G-TUBE SCH ×2 (14:00→23:24)
[2016-12-05] MEDS: cloNIDine HCL 0.3 MG TAB PEG SCH ×2 (14:00→23:23)
[2016-12-05] MEDS ORDERED: PROPRANOLOL HCL 20 MG TAB PO SCH (14:00)
--- NOTE | 2016-12-05 18:28 | HHI.PR ---
Subjective Remarks 56 YOWM with Fall,ICH,ventriculostomy Alert, awake, looks around No fever Tolerates TF at goal rate 65 cc /HR Trach capped Objective Vital Signs Vital Signs Date Time Temp Pulse Resp B/P Pulse Ox O2 Delivery O2 Flow Rate FiO2 12/05/16 16:25 98.5 70 22 127/63 97 12/05/16 12:44 98.1 74 22 115/60 12/05/16 10:52 91 T-piece 21 12/05/16 08:46 97.6 75 22 124/62 98 12/05/16 04:00 97.4 87 20 174/90 96 12/05/16 00:00 96.3 81 20 160/82 96 12/04/16 20:00 94 Room Air 12/04/16 20:00 99.0 74 20 168/76 95 I/O 12/04/16 12/04/16 12/04/16 12/05/16 12/05/16 12/05/16 07:00 15:00 23:00 07:00 15:00 23:00 Intake Total 719 ml 900 ml Output Total 400 ml 800 ml 650 ml Balance 719 ml -400 ml 100 ml -650 ml IV Total 133 ml Tube Feeding 486 ml 780 ml Other 100 ml 120 ml Output Urine Total 400 ml 800 ml 650 ml # Voids 3 2 2 3 1 # Bowel Movements 0 0 Result Diagram: 12/02/1652112/02/16521 Objective Remarks GENERAL: WBWN male, On Trach SKIN: Warm and dry. HEAD: Normocephalic. EYES: No scleral icterus. No injection or drainage. NECK: Supple, trachea midline. No JVD or lymphadenopathy. trach in place CARDIOVASCULAR: Regular rate and rhythm without murmurs, gallops, or rubs. RESPIRATORY: Breath sounds equal bilaterally. No accessory muscle use. GASTROINTESTINAL: Abdomen soft, non-tender, nondistended. PEG in place MUSCULOSKELETAL: No cyanosis, or edema. BACK: Nontender without obvious deformity. No CVA tenderness. A/P Assessment and Plan RF. s/p Trach s/P Ventriculostomy PEG placement PLAN: Aerosol nebs SQ Lovenox TF @ 65cc/HR Trach suction prn Titerate 02 to keep sat >90% Cont trach capping as tolerated CORE PILER Murphy Gaona MD Dec 05, 2016 18:28
[2016-12-05] MEDS ORDERED: QUEtiapine FUMARATE 25 MG TAB PO SCH ×2 (21:00)
[2016-12-05] MEDS: DOCUSATE SODIUM 100 MG CAP PEG SCH (23:23)
[2016-12-05] MEDS: QUEtiapine FUMARATE 25 MG TAB G-TUBE SCH (23:24)
[2016-12-06] VITALS (7 sets, daily range): BP systolic 121–136; BP diastolic 66–89; PULSE 70–89; RESP 18–22; TEMP 97.1–99; O2SAT 94–97
[2016-12-06] MEDS: HYDROCORTISONE 1% CREAM 30 GM TOPICAL SCH ×3 (05:55→23:23)
[2016-12-06] MEDS: PROPRANOLOL HCL 20 MG TAB G-TUBE SCH ×3 (05:55→21:51)
[2016-12-06] MEDS: cloNIDine HCL 0.3 MG TAB PEG SCH ×3 (05:55→21:51)
--- NOTE | 2016-12-06 08:22 | HHI.PR ---
Subjective Remarks up all night- occasionally slept - short periods but restless restless, trying to express Objective Vitals Vital Signs Date Time Temp Pulse Resp B/P Pulse Ox O2 Delivery O2 Flow Rate FiO2 12/06/16 08:00 97.6 89 20 136/79 94 12/06/16 04:00 97.1 70 20 121/66 95 12/06/16 03:25 Room Air 12/06/16 00:00 99.0 85 22 128/89 94 12/05/16 20:00 98.8 78 22 135/104 96 12/05/16 16:25 98.5 70 22 127/63 97 12/05/16 12:44 98.1 74 22 115/60 12/05/16 10:52 91 T-piece 21 12/05/16 08:46 97.6 75 22 124/62 98 I/O 12/05/16 12/05/16 12/05/16 12/06/16 12/06/16 12/06/16 07:00 15:00 23:00 07:00 15:00 23:00 Intake Total 900 ml 60 ml Output Total 800 ml 650 ml 300 ml Balance 100 ml -650 ml -240 ml Intake Oral 60 ml Tube Feeding 780 ml Other 120 ml Output Urine Total 800 ml 650 ml 300 ml # Voids 3 1 3 2 # Bowel Movements 0 0 1 Result Diagram: 12/02/1652112/02/16521 Objective Remarks awake and alert, stated his name, restless head- marisela in place anicteric, pupils equal shallow left nasolabial fold tracheostomy in place- capped since 12/04 lungs- + breath sounds, no rales, no wheezes regular rhythm abdomen- PEG in place condom catheter in place extremities no edema moves all extremities spontaneously, 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 Procedures 12/01- cranioplasty 10/27/2016 [place] tracheostomy 10/18/2016 Left frontal bur hole with placement of an intracranial pressure Right frontotemporoparietal decompressive craniectomy with evacuation of subdural hematoma 10/13/2016 Right frontal [place] hole with placement of a ventriculostomy catheter A/P Problem List: (1) Encephalopathy ICD Code: G93.40 Status: Acute (2) Pneumonia ICD Code: J18.9 Status: Acute (3) SAH (subarachnoid hemorrhage) ICD Code: I60.9 Status: Acute (4) Major neurocognitive disorder as late effect of traumatic brain injury with behavioral disturbance ICD Code: S06.9X9S Status: Acute (5) Traumatic brain injury ICD Code: S06.9X9A Status: Chronic (6) Subdural hemorrhage following injury ICD Code: S06.5X9A Status: Acute (7) Fracture of occipital bone of skull with loss of consciousness ICD Code: S02.119A Status: Acute (8) Hepatitis C antibody positive in blood ICD Code: R76.8 Status: Acute (9) Rash ICD Code: R21 Status: Acute Assessment and Plan Patient is a 56-year-old male who came to the hospital on 10/11/16 as a trauma patient. As per report, patient was on a ladder and fell approximately 10 feet. Bystander on the scene perform CPR for approximately 2 minutes stating the patient was blue. On EMS arrival patient is reported to have a GCS of 6, which improved at the time of ED arrival to GCS of 11. Imaging studies showed occipital fracture subdural and subarachnoid hemorrhage. The patient developed worsening agitation he was intubated and placed on mechanical ventilation. Repeat CT in 24 hours showed worsening of bilateral subdural subarachnoid hemorrhage with right temporal parietal subdural hemorrhage with 9 mL leftward midline shift. S/P Craniotomy and drain. Pt. now on tracheostomy and PEG tube placed. Consulted for transfer of care. TBI -status post fall from a ladder Skull fracture, occipital Subarachnoid hemorrhage Subdural hemorrhage Status post cranioplasty S/P bone flap surgery 12/01 Encephalopathy- Agitation - Rehabilitation medicine following. - Continue Keppra, valproic acid.- thru PEG - Seizure precaution - Continue physical therapy occupational therapy for deconditioning - Discussed with RN - will try to minimize restraints 12/03- monitor - Haldol PRN can be used. Also, discussed with RN regarding pain level and giving patient pain medications. - start Seroquel trial bid- increase cautiously Tracheostomy- trial capping 12/03- tolerated well Pneumonia, HCAP vs. Aspiration pneumonia, possibly S. Aureus/ Anaerobes - Leukocytosis continues WBC 13.0 --> 14.5 - Reviewed chest xray repeat 11/10/16- Right basilar patchiness consistent with probable pneumonia. Likely aspiration pneumonia. - 11/04/16 Chest x-ray showed patchy right lung base opacity nonspecific. 3/ 20/70 repeat chest x-ray showed no significant changes occurred. - Continue pulmonary toileting. - Neb treatments - Pulmonology following for trach management - Suction when necessary. Oral and trach care. - Aspiration precaution. - S/P Levaquin and Flagyl IV, discontinued on 11/14/2016. HTN - Continue medication Lasix 40 mg daily, propranolol 20 mg every 6 hours, clonidine 0.3 every 8 hours, labetalol when necessary. - Vasotec PRN. Continue Amlodipine 5mg qday. PEG in place - [facility]- tolerating well - Monitor for aspiration risk Diarrhea- no further episodes - On the [place] shield - Hold off bowel regimen. - C. difficile negative Hepatitis C - Positive hep C serology - GI follow up as an outpatient. Urinary tract infection- no treatment - Culture showed Rossy albicans less than 10,000 - condom catheter in place - gann DC 12/01- voiding well Continue betty-care. EtOH, abuse - Folic acid, thiamine DVT prop Lovenox-restarted 12/05 Alternative Code:Intubation Discharge Planning Continue PT/OT/ST- daily SSI pending. Difficult placement. Problem Qualifiers (1) Traumatic brain injury: Qualified Code: S06.9X6D - Traumatic brain injury, with LOC > 24 hr without return to prior conscious level, patient surviving, subsequent encounter (2) Subdural hemorrhage following injury: Qualified Code: S06.5X1A - Traumatic subdural hemorrhage with loss of consciousness of 30 minutes or less, initial encounter (3) Fracture of occipital bone of skull with loss of consciousness: Qualified Code: S02.119A - Fracture of occipital bone of skull with loss of consciousness, closed, initial encounter Nathaniel Montanez MD Dec 06, 2016 08:21
[2016-12-06] MEDS: levETIRAcetam INJ 500 MG in SODIUM CHLORIDE 0.9% INJ 100 ML IV SCH ×2 (09:00→21:50)
[2016-12-06] MEDS: SODIUM CHLORIDE 0.9% FLUSH 5 ML FLUSH IVF SCH ×2 (09:00→21:00)
[2016-12-06] MEDS ORDERED: FOLIC ACID 1 MG TAB PEG SCH (09:00)
[2016-12-06] MEDS: COLLAGENASE OINT 30 GM TUBE TOPICAL SCH (09:00)
[2016-12-06] MEDS ORDERED: FUROSEMIDE 40 MG TAB PEG SCH (09:00)
[2016-12-06] MEDS: QUEtiapine FUMARATE 25 MG TAB G-TUBE SCH ×2 (09:00→21:49)
[2016-12-06] MEDS: POTASSIUM CHLORIDE 25 MEQ EFFERVESCENT TAB TUBE SCH (09:00)
[2016-12-06] MEDS: DOCUSATE SODIUM 100 MG CAP PEG SCH ×2 (09:00→21:51)
[2016-12-06] MEDS: amLODIPine BESYLATE 5 MG TAB PO SCH (09:00)
[2016-12-06] MEDS: LACTOBACILLUS ACIDOPHILUS TAB PEG SCH (09:00)
[2016-12-06] MEDS ORDERED: THIAMINE HCL 100 MG TAB PEG SCH (09:00)
[2016-12-06] MEDS: LANSOPRAZOLE SOLUTAB 30 MG TAB PEG SCH (09:00)
[2016-12-06] MEDS: MULTIVITAMIN TAB PO SCH (09:00)
[2016-12-06] MEDS: DEXTROSE 5% IV SCH ×4 (11:00→23:23)
[2016-12-06] MEDS: VALPROATE IV SCH ×4 (11:00→23:23)
[2016-12-06] MEDS: WATER IV SCH ×4 (11:00→23:23)
[2016-12-06] MEDS: ENOXAPARIN SODIUM 40 MG/0.4 ML SYRINGE SQ SCH (12:00)
--- NOTE | 2016-12-06 16:42 | HHI.HCPN ---
Reason for visit a. To assist with evaluation and management of symptoms including: encephalopathy; weakness; dysphagia, pain b. To assist medical decision maker(s) with: better understanding of current medical conditions; weighing benefits/burdens of medical treatment options; making medical treatment decisions. . Subjective/Interval History Patient seen and assessed in room 1535, also present medical student Sharon. Patient having difficulty hearing. Able to communicate by writing on a dry erase board, but becomes tired quickly. Attempted to address the designation of a health care surrogate. The patient was unable to answer the question consistently, becoming increasingly confused and agitated. Tracheostomy to room air, oxygen saturation in the mid 90s. Patient tolerating artificial nutrition, Jevity 1.5 at 65ml/hr continuously. Patient remains NPO - speech therapy continues to follow. Albumin level of 3.2 on admission, decreased to 1.6. Patient was able to ambulate with physical therapies assistance today 12/06/16, this is the first time he has ambulated since his injury. Per PT notes, patient unsteady with very limited functional endurance but moving under his own power. Afebrile. Hemodynamically stable. Leukocytosis has resolved. Sputum culture on 11/09/16 growing Serratia Marcescens. Urine culture on 11/07/16 growing Rossy Albicans. Patient denied pain on exam. Orders are in place for PRN Denver and morphine. 24 hour dosing: Denver ([id number]) - 2 tablets 2, Denver ([id number]) - 1 tablets 1, Morphine 4 mg IV 3 . Family/friend interactions Attempted to contact patient's sisterManuela. Message left on voicemail. . Advance Directives Living Will: Never completed Health Care Surrogate: Never completed Durable Power of Director Of Loss Prevention: Never completed Advance Directive Specifics Date completed: Advanced directives were never completed. . Health Care Surrogate(s): There is no written designation of a health care surrogate. . Documented care wishes: No written documentation of health care preferences/goals/wishes . Objective Vital Signs Date Time Temp Pulse Resp B/P Pulse Ox O2 Delivery O2 Flow Rate FiO2 12/06/16 12:00 98.0 78 18 129/81 95 12/06/16 08:00 97.6 89 20 136/79 94 12/06/16 04:00 97.1 70 20 121/66 95 12/06/16 03:25 Room Air 12/06/16 00:00 99.0 85 22 128/89 94 12/05/16 20:00 98.8 78 22 135/104 96 12/05/16 16:25 98.5 70 22 127/63 97 Intake & Output 12/06/16 12/06/16 07:00 19:00 Intake Total 60 ml Output Total 300 ml 350 ml Balance -240 ml -350 ml Intake Oral 60 ml Output Urine Total 300 ml 350 ml # Voids 5 # Bowel Movements 1 . Physical Exam CONSTITUTIONAL/GENERAL: This is an adequately nourished patient with trach with Passy-Sibley valve and PEG s/p TBI. TUBES/LINES/DRAINS: Tracheostomy; PIV x 1, SCDs, PEG, Podus, condom catheter SKIN: Rash on BUE, multiple areas of breakdown HEAD: S/p right cranioplasty on 12/02/16-surgical incision without signs of infection EYES: Pupils equal, reactive and sluggish. No scleral icterus. No injection or drainage. Fundi not examined. ENT: Nose without bleeding or purulent drainage. NECK: Trachea midline. CARDIOVASCULAR: Heart rate and rhythm regular. No murmurs, gallops, or rubs. RESPIRATORY/CHEST: Tracheostomy to RA, oxygen saturation mid 90s Respirations clear, equal and unlabored GASTROINTESTINAL: Abdomen rounded. BS active x 4. Tolerating tube feedings. GENITOURINARY: Without palpable bladder distension MUSCULOSKELETAL: Extremities without clubbing, cyanosis. No mottling or clubbing. NEUROLOGICAL: Able to communicate via dry erase board, fatigues easily. Answers are not always consistent. PSYCHIATRIC: Patient exhibiting agitation, frustration when he does not understand or can not make his needs known . Diagnostic Tests Result Diagram: 12/02/1652112/02/16521 Procedures * Anita hole with ICP monitor placed * Right craniectomy * Art line placement * Intubation/mechanical ventilation * Central line placement. * Tracheostomy * Peg tube . Assessment and Plan Disease Oriented Problem List: (1) Traumatic brain injury (2) SAH (subarachnoid hemorrhage) (3) Subdural hemorrhage following injury (4) Fracture of occipital bone of skull with loss of consciousness (5) Encephalopathy acute (6) Alcohol dependence Comment: Long history of 12-15 drinks per day. . (7) Major neurocognitive disorder as late effect of traumatic brain injury with behavioral disturbance (8) Seizure (9) Pneumonia Comment: Probable aspiration. Blood in vomitus were in airway immediately after fall. . (10) Hepatitis C antibody positive in blood (11) Rectal bleeding Comment: Has had years of abdominal pain with intermittent rectal bleeding. Has avoided recommended work-up due to lack on insurance, lack of funds, and fear of results (per shasta). . Symptom Scale: (1) Pain 0-10 Scale: Unable to quantify Comment: Patient had history of several pain syndromes. He complained of abdominal pain for years with occasional rectal bleeding. He also complained of right ankle pain where he had surgery and achiness in multiple joints. He would use BC powders several times a day and occasionally hydrocodone. Other current sources of pain might include prolonged bedbound status, post op wound/ head pain, discomfort from trach/gann/tracheostomy/vascular access lines. 12/03: Patient reporting pain and lower back and buttocks, rated 7 out of 10. Orders are in place for PRN Denver and morphine. 24 hour dosing: Denver ([id number] ) - 2 tablets 2, Denver ([id number]) - 1 tablets 1, Morphine 4 mg IV 3 (2) Encephalopathy 0-10 Scale: Unable to quantify Comment: = This has been multi-factorial and has involved the brain injury, alcohol withdrawal, infection, seizure, etc. = Patient having difficulty hearing. Able to communicate by writing on a dry erase board, but becomes tired quickly. Attempted to address the designation of a health care surrogate. The patient was unable to answer the question consistently, becoming increasingly confused and agitated. . (3) Dyspnea Comment: Tracheostomy on , with oxygen saturation in the mid to high 90s. Follow-up chest x-ray on 11/09/16 showed right basilar patchiness consistent with probable pneumonia, likely aspiration. Sputum culture on 11/09/16 growing Serratia Marcescens. . (4) Dysphagia Comment: Patient tolerating bypass feedings, Jevity 1.5 at 65ml/hour via PEG tube. Speech therapy continues to follow-patient remains NPO Pertinent Non-Medical Issues Psychosocial: Mr Nixon was born in [place] to [place] citizens. His mother in childbirth and his biological father, with already 5 children to care for, put Mr Nixon up for adoption. His adoptive parents are both . One adoptive sister is . An adoptive brother lives in [place] and an adoptive sister lives in [place]. He is not in close touch with the biological family in [place]. Patient has a high school education. 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 Never . No kids. Has been with his fiancee -- Brandy Workman -- for 8 years. They were scheduled to on 01/16/17. Spiritual: Pentecostalism background. Pentecostalism and spirituality have not played an important role in his life. Shasta appreciates nanofabrication specialist visits. Legal: No advance directives. Without a designated health care surrogate, decision-making appears to fall to the majority of his siblings. Ethical issues impacting care: Patient is incapacitated to make his own health care decisions. It is unclear if/when he will regain capacity. . Important Contacts * Amanda Luz"betzaida (sister) - [facility] care proxy: or (niece's cell phone) * Brandy Workman (fiance) [phone] or [phone] * Perez "Demarco" (brother) [phone] * Amanda "Jamila" Ubaldo (niece) [phone] . 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 It is unclear if he had some sort of event causing the fall (he had vomitus and blood in his airway at time of fall) or merely fell. His injuries include occipital bone fracture, SDH, SAH. Complications include EtOH withdrawal, aspiration pneumonia. He has had high ICPs and ultimately underwent right sided craniectomy for decompression. He has had seizure activity. There has been little evidence so far of meaningful neurological recovery. Neurosurgery feels there continues to be a reasonable chance of meaningful neurologic recovery (though it will take a lot of time) and is recommending ongoing aggressive care. . Code Status: Alternative Code (Intubation only) Plan == Code Status: ALTERNATE CODE == AMANDA LUZ" BETZAIDA (SISTER) IS THE HEALTH CARE PROXY DECISION MAKER . == Decision making: Mr. Nixon is incapacitated to make his own health care decisions and it is unclear if/when he will regain capacity. Patient is not legally , has no children, and the parents who adopted him are . Under the [place] Statutes, decision making would fall to the patient's adoptive siblings -- Amanda and Demarco. Demarco has opted outcome of healthcare proxy decision making, therefore patient's sister (Amanda) is the healthcare proxy decision maker. == PATIENT'S SISTER AND HIS FIANCE HAD A FALLING OUT. SISTER IS HCP AND WANTS ALL INFORMATION GIVEN TO HER ONLY. FIANCE STATING THE SISTER MADE HER THE HCP WHICH IS NOT TRUE AND DOES NOT FOLLOW [place] STATUT[place] HIERARCHY. DISCUSSED WITH PATIENT NURSE AND CASE MANAGEMENT, PAM == Goals of medical treatment: Goals remain aggressive, hopeful patient will be placed in a SNF for rehabilitation. CM received copy of patient's Medicaid card, as the side pending. == Any discharge planning, updates and information need to be discussed with patient's sister and not his significant other case management and nurses has been on that were of this. == Encephalopathy: This has been multi-factorial and has involved the brain injury, alcohol withdrawal, infection, seizure, etc. = Patient having difficulty hearing. Able to communicate by writing on a dry erase board, but becomes tired quickly. Attempted to address the designation of a health care surrogate. The patient was unable to answer the question consistently, becoming increasingly confused and agitated. == Pain: Per review of notes: Patient had history of several pain syndromes. He complained of abdominal pain for years with occasional rectal bleeding. He also complained of right ankle pain where he had surgery and achiness in multiple joints. He would use BC powders several times a day and occasionally hydrocodone. Other current sources of pain might include prolonged bedbound status, post op wound/head pain, discomfort from trach/gann/tracheostomy/ vascular access lines. Patient denied pain on exam. Orders are in place for PRN Denver and morphine. 24 hour dosing: Denver ([id number]) - 2 tablets 1, Denver (10 325mg) - 1 tablets 1, Morphine 4 mg IV 3 == Dyspnea: Tracheostomy on RA, with oxygen saturation in the mid to high 90s. Follow-up chest x-ray on 11/09/16 showed right basilar patchiness consistent with probable pneumonia, likely aspiration. Sputum culture on 11/09/16 growing Serratia Marcescens. == Dysphasia: Patient unable to pass swallow evaluation, speech therapy continues to follow. Remains NPO. Tolerating by past feedings, Jevity 1.5 at 65ml/per hour via PEG tube == Palliative care will continue to follow to assist with symptom management and to further clarify goals of medical treatment as the clinical course evolves. . Attestation To help prompt me to consider important information that might be impacting today's encounter and assessment, information from prior notes written by myself or my colleagues may have been "brought forward" into today's note. My signature on this note, however, is an attestation that I personally performed the exam, history, and/or decision-making noted today, and, unless otherwise indicated, the interactions with patient, family, and staff as well as the review of records all occurred today. I also attest that the listed assessment and stated plan reflect my best clinical judgment today based on the combination of historical information, prior notes, and today's exam/ interactions. When time spent is documented, it refers only to time spent today by the signer, or if indicated, combined time spent today by collaborating physician/nurse practitioner. . Татьяна Hauser Dec 06, 2016 16:42
--- NOTE | 2016-12-06 19:22 | HHI.PR ---
Subjective Remarks 56 YOWM with Fall,ICH,ventriculostomy Alert, awake, looks around No fever Tolerates TF at goal rate 65 cc /HR Trach capped Breathing better Objective Vital Signs Vital Signs Date Time Temp Pulse Resp B/P Pulse Ox O2 Delivery O2 Flow Rate FiO2 12/06/16 16:00 97.7 76 19 131/72 96 12/06/16 12:00 98.0 78 18 129/81 95 12/06/16 08:00 97.6 89 20 136/79 94 12/06/16 04:00 97.1 70 20 121/66 95 12/06/16 03:25 Room Air 12/06/16 00:00 99.0 85 22 128/89 94 12/05/16 20:00 98.8 78 22 135/104 96 I/O 12/05/16 12/05/16 12/05/16 12/06/16 12/06/16 12/06/16 07:00 15:00 23:00 07:00 15:00 23:00 Intake Total 900 ml 60 ml Output Total 800 ml 650 ml 300 ml 350 ml Balance 100 ml -650 ml -240 ml -350 ml Intake Oral 60 ml Tube Feeding 780 ml Other 120 ml Output Urine Total 800 ml 650 ml 300 ml 350 ml # Voids 3 1 3 2 # Bowel Movements 0 0 1 Result Diagram: 12/02/1652112/02/16521 Objective Remarks GENERAL: WBWN male, On Trach SKIN: Warm and dry. HEAD: Normocephalic. EYES: No scleral icterus. No injection or drainage. NECK: Supple, trachea midline. No JVD or lymphadenopathy. trach in place CARDIOVASCULAR: Regular rate and rhythm without murmurs, gallops, or rubs. RESPIRATORY: Breath sounds equal bilaterally. No accessory muscle use. GASTROINTESTINAL: Abdomen soft, non-tender, nondistended. PEG in place MUSCULOSKELETAL: No cyanosis, or edema. BACK: Nontender without obvious deformity. No CVA tenderness. A/P Assessment and Plan RF. s/p Trach s/P Ventriculostomy PEG placement PLAN: Aerosol nebs SQ Lovenox TF @ 65cc/HR Titerate 02 to keep sat >90% Cont trach capping as tolerated DIRECTOR OF STRATEGIC ALLIANCES Murphy Gaona MD Dec 06, 2016 19:22
[2016-12-06] MEDS: ACETAMINOPHEN/HYDROcodone 325 MG/10 MG TAB PO PRN (23:42)
[2016-12-07] VITALS: BP 130/70; PULSE 76; RESP 18; TEMP 97; O2SAT 98
--- NOTE | 2016-12-07 03:59 | HHI.PR ---
Addendum to Inpatient Note Addendum Reason: Additional Documentation Additional Information I was called by pt's nurse that pt they had called code blue as they found patient unresponsive resident and pharmacy helper team responded code was performed per nurse official note of the code team to follow Surjit Flores MD Dec 07, 2016 03:59
[2016-12-07] MEDS ORDERED: SODIUM BICARBONATE 8.4% INJ 50 MEQ/50 ML SYR IV ONE (09:45)
[2016-12-07] MEDS ORDERED: EPINEPHrine HCL (1:10,000) 1 MG/10 ML SYRINGE IV ONE (09:45)
[2016-12-07] MEDS ORDERED: CALCIUM CHLORIDE 10% SOLN 1 GRAM/10 ML SYR IV ONE (09:45)
--- NOTE | 2017-01-04 15:25 | HHI.DS ---
Summary Note Date of : Dec 07, 2016 Time Of : 03:59 Admission Date Oct 11, 2016 at 12:41 Admitting Diagnosis Diagnosis at Time of : (1) Encephalopathy ICD Code: G93.40 Diagnosis: Principal (2) Pneumonia ICD Code: J18.9 Diagnosis: Principal (3) SAH (subarachnoid hemorrhage) ICD Code: I60.9 Diagnosis: Principal (4) Major neurocognitive disorder as late effect of traumatic brain injury with behavioral disturbance ICD Code: S06.9X9S Diagnosis: Principal (5) Traumatic brain injury ICD Code: S06.9X9A Diagnosis: Principal (6) Subdural hemorrhage following injury ICD Code: S06.5X9A Diagnosis: Principal (7) Fracture of occipital bone of skull with loss of consciousness ICD Code: S02.119A Diagnosis: Principal (8) Hepatitis C antibody positive in blood ICD Code: R76.8 Diagnosis: Secondary (9) Rash ICD Code: R21 Diagnosis: Secondary Procedures 12/01- cranioplasty 10/27/2016 Blue rhino tracheostomy 10/18/2016 Left frontal bur hole with placement of an intracranial pressure Right frontotemporoparietal decompressive craniectomy with evacuation of subdural hematoma 10/13/2016 Right frontal [place] hole with placement of a ventriculostomy catheter Brief History Patient is a 56-year-old male who came to the hospital on 10/11/16 as a trauma patient. As per report, patient was on a ladder and fell approximately 10 feet. Bystander on the scene perform CPR for approximately 2 minutes stating the patient was blue. On EMS arrival patient is reported to have a GCS of 6, which improved at the time of ED arrival to GCS of 11. Imaging studies showed occipital fracture subdural and subarachnoid hemorrhage. The patient developed worsening agitation he was intubated and placed on mechanical ventilation. Repeat CT in 24 hours showed worsening of bilateral subdural subarachnoid hemorrhage with right temporal parietal subdural hemorrhage with 9 mL leftward midline shift. S/P Craniotomy and drain. Pt. now on tracheostomy and PEG tube placed. Consulted for transfer of care. Patient seen today. Opens his eyes and able to track voice. Nods head when asked if he is doing okay. Able to follow some simple commands intermittently. Appears to be comfortable. Tracheostomy with trach collar 28%. As per staff , no acute issues overnight, with increased secretions have been noted. Imaging Last Impressions Chest X-Ray 10/24/16 0600 Signed Impressions: Service Date/Time: Monday, October 24, 2016 04:52 - CONCLUSION: Slight improvement in aeration Red Hoffman MD Head CT 10/23/16 0000 Signed Impressions: Service Date/Time: Sunday, October 23, 2016 11:21 - CONCLUSION: 1. Examination quality is degraded by motion artifact. There is decreased midline shift, currently measuring 3 mm compared to 6 mm on the prior study. 2. There are persistent hemorrhagic contusions in the right frontal lobe but they are less well-visualized today either related to interval improvement or related to motion artifact. Red Arenas MD Chest CT 10/23/16 0000 Signed Impressions: Service Date/Time: Sunday, October 23, 2016 11:24 - CONCLUSION: 1. Airspace consolidation within the left upper lobe. This could represent an infectious process. 2. Small bilateral pleural effusions with associated compressive atelectasis in the lower lobes. Red Arenas MD Abdomen/Pelvis CT 10/23/16 0000 Signed Impressions: Service Date/Time: Sunday, October 23, 2016 11:27 - CONCLUSION: 1. No acute finding is identified within the abdomen or pelvis. 2. Anasarca. 3. Stable 7 mm nodule on the left adrenal gland. Small size favors a benign process but is incompletely characterized on this examination. Red Arenas MD Neck CTA 10/12/16 0000 Signed Impressions: Service Date/Time: Wednesday, October 12, 2016 09:27 - CONCLUSION: Mild atherosclerotic changes in the proximal portions of both internal carotid arteries but no significant stenosis. Dez Petersen MD Head CTA 10/12/16 0000 Signed Impressions: Service Date/Time: Wednesday, October 12, 2016 09:27 - CONCLUSION: No evidence of acute vascular injury Red Hoffman MD Pelvis X-Ray 10/11/16 1213 Signed Impressions: Service Date/Time: Tuesday, October 11, 2016 12:02 - CONCLUSION: Satisfactory trauma pelvis appearance. Red Hoffman MD Cervical Spine CT 10/11/16 1213 Signed Impressions: Service Date/Time: Tuesday, October 11, 2016 12:19 - CONCLUSION: Occipital skull fracture. No evidence of acute traumatic injury in the cervical spine Red Hoffman MD Hospital Course Patient is a 56-year-old male who came to the hospital on 10/11/16 as a trauma patient. As per report, patient was on a ladder and fell approximately 10 feet. Bystander on the scene perform CPR for approximately 2 minutes stating the patient was blue. On EMS arrival patient is reported to have a GCS of 6, which improved at the time of ED arrival to GCS of 11. Imaging studies showed occipital fracture subdural and subarachnoid hemorrhage. The patient developed worsening agitation he was intubated and placed on mechanical ventilation. Repeat CT in 24 hours showed worsening of bilateral subdural subarachnoid hemorrhage with right temporal parietal subdural hemorrhage with 9 mL leftward midline shift. S/P Craniotomy and drain. Pt. now on tracheostomy and PEG tube placed. Consulted for transfer of care. TBI -status post fall from a ladder Skull fracture, occipital Subarachnoid hemorrhage Subdural hemorrhage Status post cranioplasty S/P bone flap surgery 12/01 Encephalopathy- Agitation - Rehabilitation medicine following. - Continue Keppra, valproic acid.- thru PEG - Seizure precaution - Continue physical therapy occupational therapy for deconditioning - Discussed with RN - will try to minimize restraints 12/03- monitor - Haldol PRN can be used. Also, discussed with RN regarding pain level and giving patient pain medications. - start Seroquel trial bid- increase cautiously Tracheostomy- trial capping 12/03- tolerated well Pneumonia, HCAP vs. Aspiration pneumonia, possibly S. Aureus/ Anaerobes - Leukocytosis continues WBC 13.0 --> 14.5 - Reviewed chest xray repeat 11/10/16- Right basilar patchiness consistent with probable pneumonia. Likely aspiration pneumonia. - 11/04/16 Chest x-ray showed patchy right lung base opacity nonspecific. repeat chest x-ray showed no significant changes occurred. - Continue pulmonary toileting. - Neb treatments - Pulmonology following for trach management - Suction when necessary. Oral and trach care. - Aspiration precaution. - S/P Levaquin and Flagyl IV, discontinued on 11/14/2016. HTN - Continue medication Lasix 40 mg daily, propranolol 20 mg every 6 hours, clonidine 0.3 every 8 hours, labetalol when necessary. - Vasotec PRN. Continue Amlodipine 5mg qday. PEG in place - Continue tube feedings as ordered Jevity- tolerating well - Monitor for aspiration risk Diarrhea- no further episodes - On the maylin shield - Hold off bowel regimen. - C. difficile negative Hepatitis C - Positive hep C serology - GI follow up as an outpatient. Urinary tract infection- no treatment - Culture showed Rossy albicans less than 10,000 - condom catheter in place - gann DC 12/01- voiding well Continue betty-care. EtOH, abuse - Folic acid, thiamine DVT prop Lovenox-restarted 12/05 Alternative Code:Intubation Discharge Planning Continue PT/OT/ST- daily SSI pending. Difficult placement. Patient found unresponsive and despite resuscitation Nathaniel Montanez MD January 04, 2017 15:25
== END 2016-12-07 09:46 | disposition expired | DRG 3 ==
LOC: NEPI 12:08 → N03B 12:41 → EDBD 12:41 → N05A 11-07 01:05 → N03B 12-01 15:21 → HPAC 12-02 00:08 → N05B 12-02 14:41 → N05A 12-03 12:24
PROVIDERS: ADMIT Surgery; ATTEND Internal Medicine
PROC: 5A1955Z Respiratory Ventilation, Greater than 96 Consecutive Hours (ICD-10-PCS; 2016-10-11)
PROC: 0BH17EZ Insertion of Endotracheal Airway into Trachea, Via Natural or Artificial Opening (ICD-10-PCS; 2016-10-11)
PROC: 02HV33Z Insertion of Infusion Device into Superior Vena Cava, Percutaneous Approach (ICD-10-PCS; 2016-10-11)
PROC: 009630Z Drainage of Cerebral Ventricle with Drainage Device, Percutaneous Approach (ICD-10-PCS; principal; 2016-10-13)
PROC: 00C40ZZ Extirpation of Matter from Intracranial Subdural Space, Open Approach (ICD-10-PCS; 2016-10-18)
PROC: 00H032Z Insertion of Monitoring Device into Brain, Percutaneous Approach (ICD-10-PCS; 2016-10-18)
PROC: 4A103BD Monitoring of Intracranial Pressure, Percutaneous Approach (ICD-10-PCS; 2016-10-18)
PROC: 0B113F4 Bypass Trachea to Cutaneous with Tracheostomy Device, Percutaneous Approach (ICD-10-PCS; 2016-10-27)
PROC: 5A1955Z Respiratory Ventilation, Greater than 96 Consecutive Hours (ICD-10-PCS; 2016-10-27)
PROC: 0BJ08ZZ Inspection of Tracheobronchial Tree, Via Natural or Artificial Opening Endoscopic (ICD-10-PCS; 2016-10-27)
PROC: 0DH63UZ Insertion of Feeding Device into Stomach, Percutaneous Approach (ICD-10-PCS; 2016-10-29)
PROC: 0NR Head and Facial Bones, Replacement (ICD-10-PCS; 2016-12-01)
PROC: 0NR Head and Facial Bones, Replacement (ICD-10-PCS; 2016-12-01)
DX: S06.5X9A Traumatic subdural hemorrhage with loss of consciousness of unspecified duration, initial encounter (principal); J69.0 Pneumonitis due to inhalation of food and vomit; G93.40 Encephalopathy, unspecified; J14 Pneumonia due to Hemophilus influenzae; E87.0 Hyperosmolality and hypernatremia; F10.231 Alcohol dependence with withdrawal delirium; R13.10 Dysphagia, unspecified; J96.01 Acute respiratory failure with hypoxia; J96.02 Acute respiratory failure with hypercapnia; E44.1 Mild protein-calorie malnutrition; J44.0 Chronic obstructive pulmonary disease with (acute) lower respiratory infection; D62 Acute posthemorrhagic anemia; J44.1 Chronic obstructive pulmonary disease with (acute) exacerbation; E87.1 Hypo-osmolality and hyponatremia; B37.49 Other urogenital candidiasis; S06.1X9A Traumatic cerebral edema with loss of consciousness of unspecified duration, initial encounter; S06.6X9A Traumatic subarachnoid hemorrhage with loss of consciousness of unspecified duration, initial encounter; R40.2431 Glasgow coma scale score 3-8, in the field [EMT or ambulance]; S02.119A Unspecified fracture of occiput, initial encounter for closed fracture; B19.20 Unspecified viral hepatitis C without hepatic coma; D35.02 Benign neoplasm of left adrenal gland; H91.90 Unspecified hearing loss, unspecified ear; I10 Essential (primary) hypertension; F17.210 Nicotine dependence, cigarettes, uncomplicated; R56.9 Unspecified convulsions; R19.7 Diarrhea, unspecified; K59.00 Constipation, unspecified; R21 Rash and other nonspecific skin eruption; W11.XXXA Fall on and from ladder, initial encounter; Z68.23 Body mass index [BMI] 23.0-23.9, adult
CPT/HCPCS: 31500; 36556; 36600; 36620; 61210; 70450; 70496; 70498; 71010; 71260; 72125; 72170; 74177; 76937; 80048; 80053; 80074; 80164; 80177; 80185; 80202; 80307; 80320; 81001; 82140; 82435; 82565; 82805; 82947; 83605; 83735; 83880; 83930; 84100; 84132; 84295; 84484; 84520; 85007; 85025; 85027; 85610; 85730; 86803; 86850; 86900; 86901; 87040; 87070; 87077; 87086; 87186; 87205; 87449; 87493; 87522; 87641; 87804; 87902; 88304; 92950; 93005; 93306; 93970; 94002; 94003; 94150; 94640; 94664; 94770; 95819; 96374; 99291; A7521; C1713; C9113; C9399; G0390; J0131; J0171; J0360; J0461; J0690; J0696; J0744; J1165; J1200; J1580; J1630; J1650; J1940; J1953; J1956; J2060; J2150; J2175; J2212; J2250; J2270; J2370; J2405; J2710; J2930; J3010; J3370; J3411; J3475; J3480; J7030; J7040; J7050; J7060; J7120; J7512; J7613; L0150; Q2009; Q9967